=== PATIENT | male | born 1950 | race Caucasian/White ===

== ENCOUNTER 2019-10-15 18:46 | Emergency (ER) | payer MEDICARE, OTHER, SELFPAY ==
[2019-10-15 18:48] VITALS: BP 116/79; PULSE 86; RESP 15; TEMP 36.7; O2SAT 98; BMI 28.6
--- NOTE | 2019-10-15 20:23 | EKG12_ITS ---
Test Reason : UPPER EXTREMITY Blood Pressure : / mmHG Vent. Rate : 091 BPM Atrial Rate : 141 BPM P-R Int : 000 ms QRS Dur : 114 ms QT Int : 368 ms P-R-T Axes : 000 044 034 degrees QTc Int : 452 ms Atrial fibrillation Abnormal ECG Confirmed by THEO STUART, SILVIA ([id number]), news editor SHAHEED VALDES ([id number]) on 10/17/2019 1:23:12 PM Referred By: Confirmed By:SILVIA VENEGAS MD
--- NOTE | 2019-10-15 20:23 | CT_ITS ---
STUDY: CTA CHEST REASON FOR EXAM: Male, 68 years old. PAIN LT SHOULDER BLADE,POST-OP RT ROTATOR CUFF SHOULDER SURGERY -- HX:HLD RADIATION DOSAGE (If Supplied By Facility): CTDIvol = ( 19.59 ) mGy, DLP = ( 588.50 ) mGycm TECHNIQUE: The examination was performed with the intravenous administration of IV 100mL Isovue-370. Post-processing of the angiographic images was performed, with multiplanar reformation and 3D reconstruction. Individualized dose optimization techniques were used for this CT. COMPARISON: None. FINDINGS: There is minimal atelectasis and/or scarring within the lower lobes, more pronounced on the right. Normal enhancement of the main pulmonary artery and right and left pulmonary arteries. There is a filling defect within a subsegmental pulmonary artery within the right lower lobe (image 142 series 2) consistent with an underlying embolus. There is atherosclerotic calcification of the aortic arch. There is no demonstrated aortic dissection. There are calcifications of the coronary arteries. There is an atrial appendage clip in place. Normal mediastinum. Normal hilar regions. Normal visualized trachea and bronchi. Normal chest wall structures. There are degenerative changes of thoracic spine. Limited images of the upper abdomen demonstrate postsurgical changes of the stomach. CT/CTA Chest W/WO Contrast IMPRESSION: Pulmonary embolus within the right lower lobe. Atherosclerosis. Minimal atelectasis and/or scarring within the lower lobes, more pronounced than the right. N.B. : The above information has been verbally conveyed by Marisela French MD to Jenn Shetty MD, on 10/15/2019 22:07:31 (ET). Electronically Signed: Marisela French MD at 22:08 EDT Tel , Service support ,
--- NOTE | 2019-10-15 20:26 | ED.RN ---
NO OLD EKGS IN MUSE
[2019-10-15] MEDS: Morphine 4 MG/ML Syringe IV (20:42)
[2019-10-15] MEDS: Ondansetron 4 MG/2 ML Vial IV (20:43)
[2019-10-15 21:04] LABS: Absolute Lymphocyte Count 2.73 X10^3/uL (0.83-4.51); Absolute Neutrophil Count 4.7 X10^3/uL (2.0-7.7); Basophil# 0.04 X10^3/uL; Basophil% 0.5 % (0-1); Eosinophil# 0.24 X10^3/uL; Eosinophils% 2.9 % (0-5); Hematocrit 38.9 % (40-54); Hemoglobin 11.9 g/dL (13.0-16.5); Lymphocyte # 2.73 X10^3/ul (4.0); Lymphocyte % 33.3 % (19-41); Mean Corp Hgb Conc 30.6 g/dL (32-36); Mean Corpuscular Hgb 28.7 pg (27.0-32.0); Mean Corpuscular Volume 93.7 fL (80-94); Mean Platelet Vol. 10.6 fl (6.2-12.0); Monocyte# 0.42 X10^3/uL; Monocyte% 5.1 % (0-10); NRBC Flagged by Analyzer 0 % (0-5); Neutrophil # 4.74 X10^3/uL (2.7-7.7); Neutrophil % 57.7 % (47-70); Platelet Count 294 K/mm3 (150-450); RBC Distribution Width CV 14.4 % (11.6-14.6); RBC Distribution Width SD 48.9 fl (35.1-43.9); Red Blood Count 4.15 M/mm3 (4.6-6.2); White Blood Count 8.2 K/mm3 (4.4-11.0)
[2019-10-15 21:12] LABS: Anion Gap 4 (5-15); BUN 21 mg/dL (7-18); BUN/Creat Ratio 19.4 RATIO (10-20); Calcium,Total 8.7 mg/dL (8.5-10.1); Chloride 108 mmol/L (98-107); Creatinine, Serum 1.08 mg/dL (0.70-1.30); EST Glomerular Filtration Rate 73 mL/min (>60); Est Glom Filt Rate - Afr Amer 88 mL/min (>60); Estimated Creatinine Clearance 76.04 ml/min; Glucose 100 mg/dL (74-106); Potassium 4.3 mmol/L (3.5-5.1); Sodium Level 142 mmol/L (136-145)
--- NOTE | 2019-10-15 21:30 | ED.DCSUM_ITS ---
- ER Visit Summary Date of Service: 10/15/19 Chief Complaint: Left shoulder pain History of Present Illness: The patient is a 68 M presenting with left shoulder pain. He states this started 2 days ago. Patient had surgery on his right rotator cuff 1 week ago. He stopped taking his pain medication 2 days ago. When he stopped his pain medication he started having pain along his left scapula. He states it is worse with different positions and when he rests against the bed. He denies chest pain or shortness of breath. He is on Eliquis for history of A. fib. Denies fever or cough. Denies recent injury. Denies other complaints. Physical Examination: Vitals are stable. Patient is afebrile. Alert no acute distress. HEENT exam is unremarkable. Neck is supple. Lungs are clear and equal bilaterally. Heart is regular rate and rhythm. Abdomen is soft nontender nondistended. Extremities left parascapular tenderness with active full range of motion. Right shoulder incision clean dry and intact Skin is warm and dry. No focal neurologic deficit. Remainder of exam is unremarkable. Emergency Department Course and Treatment: Patient was given morphine, Zofran IV. EKG is A. fib rate of 91 with no acute ischemic changes. CBC, chemistries unremarkable. Troponin is negative. Left shoulder xray shows degenerative changes of the acromioclavicular joint. Superior migration of the humeral head suggestive of underlying rotator cuff pathology. CTA chest shows pulmonary embolus within the right lower lobe, subsegmental. On reevaluation, patient is resting comfortably. Discussed with hospitalist Dr. Meade. She does not feel patient requires admission at this time. Patient's ambulatory pulse ox is 95% on room air. His Eliquis is increased to 10 mg twice daily x7 days and then he will return to 5 mg twice daily. He will follow-up with his primary care physician and orthopedics. Advised signs and symptoms for which to return to the ED. Disposition: Discharge home Impression: Left shoulder pain, pulmonary embolism This note was generated with [employer] dictation software. It may contain incorrect words, spelling, and punctuation that were not noted in review of the chart prior to signing ED Disposition - Plan for ED Patient: Referrals: MICHELLE DUVALL [Other]
--- NOTE | 2019-10-15 21:30 | RAD_ITS ---
STUDY: X-RAY - LEFT SHOULDER REASON FOR EXAM: Male, 68 years old. PAIN IN LEFT SHOULDER BLADE. RECENT SURGERY ON RIGHT SHOULDER. TECHNIQUE: 4 view(s) of the shoulder. COMPARISON: None. FINDINGS: There is cephalad migration of the humeral head consistent with rotator cuff pathology. There are degenerative changes of the acromioclavicular joint. Normal acromion. There are subchondral lucencies within the humeral head which may reflect underlying subchondral cyst. The soft tissue structures are unremarkable. There appears to be an atrial appendage clip projecting over the cardiac silhouette. RAD/Shoulder min 2 Views IMPRESSION: Degenerative changes of the acromioclavicular joint. Superior migration of the humeral head suggestive of underlying rotator cuff pathology. Electronically Signed: Marisela French MD at 21:49 EDT Tel , Service support ,
[2019-10-15 22:25] VITALS: BP 124/73; PULSE 92; RESP 18; O2SAT 95
[2019-10-15 22:28] VITALS: O2SAT 95
--- NOTE | 2019-10-15 22:55 | ED.DEP ---
ED Disposition - Plan for ED Patient: Instructions: Pulmonary Embolism Prescriptions: Apixaban [Eliquis] 10 mg PO BID #7 days Referrals: MICHELLE DUVALL [Other]
[2019-10-15 23:23] VITALS: BP 136/86; PULSE 96; RESP 18; O2SAT 95
== END 2019-10-15 23:22 | disposition home or self-care (01) ==
PROVIDERS: Emergency Provider Emergency Medicine
DX: M25.512 Pain in left shoulder (principal); I26.99 Other pulmonary embolism without acute cor pulmonale; I48.91 Unspecified atrial fibrillation; Z79.01 Long term (current) use of anticoagulants; Z79.899 Other long term (current) drug therapy
CPT/HCPCS: 71275; 73030; 80048; 84484; 85025; 93005; 96374; 99284; Q9967; A4216; J2405

== ENCOUNTER 2020-07-21 15:05 | Emergency (ER) | payer MEDICARE, OTHER, SELFPAY ==
[2020-07-21 15:06] VITALS: BP 113/67; PULSE 82; RESP 18; TEMP 36.7; O2SAT 100; BMI 31.9
--- NOTE | 2020-07-21 15:15 | EKG12_ITS ---
Test Reason : DIZZINESS Blood Pressure : / mmHG Vent. Rate : 094 BPM Atrial Rate : 110 BPM P-R Int : 000 ms QRS Dur : 104 ms QT Int : 364 ms P-R-T Axes : 000 028 003 degrees QTc Int : 455 ms Atrial fibrillation with premature ventricular or aberrantly conducted complexes Abnormal ECG Confirmed by CELESTINA STUART, JERALD ([id number]), sound editor KHADAR HALL ([id number]) on 07/23/2020 11:19:02 AM Referred By: DONATO Confirmed By:JERALD OSCAR MD
[2020-07-21 15:32] LABS: Hematocrit 44.3 % (40-54); Hemoglobin 14.2 g/dL (13.0-16.5); Mean Corp Hgb Conc 32.1 g/dL (32-36); Mean Corpuscular Hgb 29.6 pg (27.0-32.0); Mean Corpuscular Volume 92.5 fL (80-94); Mean Platelet Vol. 10.6 fl (6.2-12.0); Platelet Count 267 K/mm3 (150-450); RBC Distribution Width CV 14.7 % (11.6-14.6); RBC Distribution Width SD 50.1 fl (35.1-43.9); Red Blood Count 4.79 M/mm3 (4.6-6.2); White Blood Count 7.4 K/mm3 (4.4-11.0)
[2020-07-21 15:38] VITALS: BP 84/50; BP 96/56; BP 97/76; PULSE 102; PULSE 89; PULSE 95
[2020-07-21 15:54] LABS: Anion Gap 4 (5-15); BUN 24 mg/dL (7-18); BUN/Creat Ratio 22.9 RATIO (10-20); Calcium,Total 9.7 mg/dL (8.5-10.1); Chloride 109 mmol/L (98-107); Creatinine, Serum 1.05 mg/dL (0.70-1.30); EST Glomerular Filtration Rate 75 mL/min (>60); Est Glom Filt Rate - Afr Amer 90 mL/min (>60); Estimated Creatinine Clearance 77.15 ml/min; Glucose 49 mg/dL (74-106); Sodium Level 140 mmol/L (136-145)
--- NOTE | 2020-07-21 15:59 | ED.VIS.GEN ---
History of Present Illness Chief Complaint: Dizziness Informant: Patient Onset: Today, Hours Context: Sudden Onset Timing: Intermittent Quality: Dizziness and lightheadedness Location: Physical therapy Current Severity: No lightheadedness or dizziness Maximum Severity: Moderate Worsened by: During physical therapy Relieved by: Sitting down Associated Symptoms: No other symptoms Narrative: Is a 69-year-old male with multiple medical problems on anticoagulant who presents because of dizziness which he defines as being lightheaded. He felt as if he was going to fall. He did not eat as much as normal prior to physical therapy. During physical therapy he became lightheaded. There was no spinning. Did not feel his balance was off. He did not feel he was tilted. He denied problem with coordination. He is undergoing physical therapy for hip surgery middle april and rotator cuff injury. Patient denies headache. Denies double vision, blurred vision loss of vision. Nuys decreased hearing in his ears. Denies trouble with speech or swallowing. He denies rhinorrhea, congestion or postnasal drainage. He denies chest pain of any type. He denies dyspnea or dyspnea on exertion. He does have history of dyspnea is had a significant work-up and even seen dyspnea's specialist at [facility] and told there is nothing abnormality to explain his shortness of breath. Patient states he did feel short of breath when he felt lightheaded. Again he was asked if he had chest pain, which he denied. He denies nausea, vomiting diarrhea. Nuys black or maroon-colored stool. He denies dysuria, frequency, urgency or hematuria. He denies symptoms of claudication. Prior similar symptoms: Yes - Dyspnea Recent Illness/Hospitalization: Yes - Hip surgery - Past Medical History (1) History of atrial fibrillation Status: Acute (2) [facility] current use of anticoagulant Status: Acute (3) History of hypertension Status: Acute (4) History of hypercholesterolemia Status: Acute Past Medical History - Allergies and Home Meds Allergies/Adverse Reactions: Allergies rivaroxaban [From Xarelto] Allergy (Verified 07/21/20 15:10) Rash Sulfa (Sulfonamide Antibiotics) Allergy (Verified 07/21/20 15:10) Rash Primary Care Physician: MICHELLE PORTILLO [Other] Prior records reviewed: Yes Surgical History: total hip arthroplasty Lives: Alone Smoking Status: Unknown if ever smoked Alcohol: None Drugs: None Review of Systems General: Denies: Chills, Fever, Malaise, Sweats Eyes: Denies: Visual changes - bilaterally, Blurred Vision - bilaterally, Diplopia ENT: Denies: Bilateral ear pain, Rhinorrhea, Sore throat Cardiovascular: Denies: Chest pain, Palpitations, Heart racing Respiratory: Reports: Dyspnea. Denies: Cough, Sputum, Dyspnea on exertion, Orthopnea, Paroxysmal nocturnal dyspnea Gastrointestinal: Denies: Abdominal pain, Nausea, Vomiting, Diarrhea, Melena, Hematochezia Genitourinary: Denies: Dysuria, Hematuria, Frequency Musculoskeletal: Denies: Myalgias, Arthralgias, Neck pain, Back pain, Swelling, Extremity Pain, -, - Skin: Denies: Rash, Wounds Neurological: Denies: Headache, Weakness, Parasthesia Endocrine: Denies: Polyuria, Polydipsia Hematologic: Reports: Easy bruising. Denies: Easy bleeding Allergy: Denies: Uticaria Physical Exam Vital Signs/Narrative: Vital Signs Temp Pulse Pulse Pulse Pulse Resp BP 07/21/20 15:38 89 95 102 H 07/21/20 15:06 98.0 F 82 18 113/67 BP BP BP Pulse Ox 07/21/20 15:38 97/76 96/56 L 84/50 L 07/21/20 15:06 100 Inital Vital Signs reviewed: Yes General: Well nourished, Well developed, Obese, No Acute Distress Head: Normocephalic, Atraumatic Eyes: Perrl, EOMI. Negative for: Pale conjunctiva, Scleral icterus ENT: Moist mucous membranes, No rhinorrhea Neck: Supple, Nontender, No lymphadenopathy, No JVD Cardiovascular: Regular rate, No murmurs, Irregular Respiratory: No distress, CTA bilaterally, Chest nontender Abdomen: Soft, Nontender, Nondistended, Normal bowel sounds Rectal: Deferred Back: Nontender, Normal Inspection Extremities: Nontender, No edema. Negative for: Calf Tenderness Skin: Normal color, No rash. Negative for: Cyanosis, Diaphoresis, Jaundice Neurological: Alert, Oriented x3, Cranial nerves II-XII grossly intact, Normal Strength, Normal Sensation, Normal DTR Psychological: Depressed Diagnostic/Tx/Re-eval Laboratory Results 07/21/20 07/21/20 15:20 15:20 WBC 7.4 RBC 4.79 Hgb 14.2 Hct 44.3 MCV 92.5 MCH 29.6 MCHC 32.1 RDW Std Deviation 50.1 H RDW Coeff of Anmol 14.7 H Plt Count 267 MPV 10.6 Sodium 140 Potassium 4.0 Chloride 109 H Carbon Dioxide 27.0 Anion Gap 4 L BUN 24 H Creatinine 1.05 Estim Creat Clear Calc 77.15 Est GFR (MDRD) Af Amer 90 Est GFR (MDRD) Non-Af 75 BUN/Creatinine Ratio 22.9 H Glucose 49 L Calcium 9.7 CBC is unremarkable. Basic metabolic panel is unremarkable. Static vital signs are unremarkable. Patient states his normal systolic blood pressure ranges between 90 and 100. - Medical Decision Making KG was obtained to evaluate for dysrhythmia and specifically A. fib with RVR. CBC to assess H&H. Basic metabolic panel to assess renal function. Suspect patient had orthostatic symptoms. Orthostatic vital signs were ordered. ED Disposition - Plan for ED Patient: Disposition: Home or Assisted Living Diagnosis: Orthostatic lightheadedness, Dyspnea Instructions: ED Dizziness, Uncertain Cause Referrals: MICHELLE PORTILLO [Other] - As Needed
[2020-07-21 16:30] VITALS: BP 113/85; PULSE 86; RESP 15; O2SAT 94
== END 2020-07-21 16:42 | disposition home or self-care (01) ==
PROVIDERS: Emergency Provider Emergency Medicine
DX: R42 Dizziness and giddiness (principal); R06.00 Dyspnea, unspecified; I48.91 Unspecified atrial fibrillation; I10 Essential (primary) hypertension; E78.00 Pure hypercholesterolemia, unspecified; Z79.01 Long term (current) use of anticoagulants; Z79.899 Other long term (current) drug therapy; Z96.649 Presence of unspecified artificial hip joint
CPT/HCPCS: 80048; 85027; 93005; 99285

== ENCOUNTER → 2020-08-26 11:23 | Outpatient (CLI) | payer MEDICARE, OTHER, SELFPAY ==
--- NOTE | 2020-08-26 12:35 | NEURO ---
NCS and/or EMG Patient Report Ordering Doctor: Morgan Zimmerman DATE OF SERVICE: 08/26/20 Logan Dumont presents for electrodiagnostic testing of the left upper limb. He reports numbness, tingling and weakness in the left hand. Electrodiagnostic findings: Left median motor nerve demonstrates prolonged distal latency with normal amplitude and reduced conduction velocity. Left ulnar motor response is within normal limits. Prolonged median and ulnar F waves are noted. Prolonged left median sensory latency at the wrist. Prolonged left median palmar latency. On needle EMG, all muscles tested in the left upper limb showed no evidence of denervation with normal motor unit action potentials. Electrodiagnostic impression: This is an abnormal study. 1. Electrodiagnostic findings demonstrate left-sided median mononeuropathy. This is consistent with a moderate left carpal tunnel syndrome.
== END ==
PROVIDERS: Referring Provider Orthopaedic Surgery; Visit Provider Orthopaedic Surgery
DX: R53.1 Weakness (principal); M79.642 Pain in left hand; R20.0 Anesthesia of skin
CPT/HCPCS: 95886; 95910

== ENCOUNTER → 2020-11-25 08:05 | Outpatient (CLI) | payer MEDICARE, OTHER, SELFPAY ==
--- NOTE | 2020-11-25 08:08 | CDU_ITS ---
Reason For Study: Transient visual loss Rt. Velocities/BP Lt. Velocities/BP Prox CCA 78.6/25.2 cm/sec. Prox CCA 124.7/38.9 cm/sec. Mid CCA 86.5/27.8 cm/sec. Mid CCA 84.6/27.9 cm/sec. Dist CCA 82.6/22.6 cm/sec. Dist CCA 79.1/22.5 cm/sec. Prox ICA 81.2/22.6 cm/sec. Prox ICA 62.6/15.6 cm/sec. Mid ICA 66.9/31.7 cm/sec. Mid ICA 49.4/22 cm/sec. Dist ICA 96.9/46 cm/sec. Dist ICA 90/44.7 cm/sec. Rt. ICA/CCA = 1.17. Lt. ICA/CCA = 1.06. Prox ECA 60.4/9.5 cm/sec. Prox ECA 86.3/20 cm/sec. Rt. Vert. 50.9/21.2 cm/sec. Lt. Vert. 39.5/16.8 cm/sec. Right Extracranial There is intimal thickening but no significant atherosclerotic plaque noted in the right common carotid artery. There is heterogeneous, irregular atherosclerotic plaque noted in the right internal carotid artery. There is intimal thickening but no significant atherosclerotic plaque noted in the right external carotid artery. Antegrade flow is noted in the right vertebral artery. Left Extracranial There is homogeneous, smooth atherosclerotic plaque noted in the left common carotid artery. There is homogeneous, smooth atherosclerotic plaque noted in the left internal carotid artery. There is intimal thickening but no significant atherosclerotic plaque noted in the left external carotid artery. Antegrade flow is noted in the left vertebral artery. Procedure Carotid Duplex [id number]. This is a Carotid Duplex examination using B-mode, color flow and specral Doppler. Exam performed in department. VL/Carotid Duplex Ultrasound Interpretation Summary Mild (<50%) stenosis right extracranial internal carotid. Mild (<50%) stenosis left extracranial internal carotid. Flow within the vertebral arteries is antegrade bilaterally. Ordering Physician: Pelon Nascimento Performed By: Oneyda Anders RVT
== END ==
PROVIDERS: Referring Provider Ophthalmology; Visit Provider Ophthalmology
DX: H53.123 Transient visual loss, bilateral (principal)
CPT/HCPCS: 93880

== ENCOUNTER → 2021-03-12 11:08 | Outpatient (CLI) | payer MEDICARE, OTHER, SELFPAY ==
--- NOTE | 2021-03-12 11:30 | MRI_ITS ---
EXAM: MR Head Without and With Intravenous Contrast CLINICAL INDICATION: 70 years old, Male; DIPLOPIA R EYE X 3 MONTHS TECHNIQUE: Multiplanar and multisequence MR images of the brain were obtained without and with intravenous contrast. This report was created using [employer] report generation technology. CONTRAST: 20CC IV DOTAREM COMPARISON: None. FINDINGS: Brain and extra-axial spaces: Punctate T2 signal abnormalities in the deep cerebral white matter most likely due to small vessel ischemic/degenerative changes. Mild cerebral and cerebellar atrophy. No intra- or extra-axial hemorrhage. No intracranial mass or mass effect. No hydrocephalus. Basal cisterns are patent. Diffusion-weighted imaging is negative for acute or subacute infarct. Sella: Unremarkable. Normal sella turcica, pituitary gland, infundibular stalk, optic chiasm and hypothalamus. Auditory system: Unremarkable. The internal auditory canals are patent. Bones/joints: Unremarkable. No discrete lytic or blastic abnormalities. Sinuses: Unremarkable as visualized. Clear. Mastoid air cells: Unremarkable as visualized. Clear. Orbits: Unremarkable as visualized. Both globes, extraocular muscles, optic nerves and retrobulbar fat appear unremarkable. Vasculature: Unremarkable as visualized. Normal flow voids in the major intracranial circulation. MRI/Brain W/WO Contrast IMPRESSION: 1. No evidence of acute or subacute infarct. 2. Mild small vessel ischemic/degenerative changes. Electronically Signed: Levi Baez MD at 23:59 EST Tel , Service support ,
[2021-03-12 11:31] LABS: CREATININE FINGERSTICK 0.8 mg/dL (0.70-1.30); EGFR FINGERSTICK > 60.0000 mL/min (>60)
== END ==
PROVIDERS: Visit Provider Ophthalmology
DX: H53.2 Diplopia (principal)
CPT/HCPCS: 70553; A9575

== ENCOUNTER 2021-06-30 16:12 | Emergency (ER) | payer MEDICARE, OTHER, SELFPAY ==
[2021-06-30 16:13] VITALS: BP 107/68; BP 110/76; PULSE 61; PULSE 63; RESP 10; RESP 15; TEMP 36.6; O2SAT 95; O2SAT 96; BMI 32.3
--- NOTE | 2021-06-30 16:38 | EX.ED.DYSGE1 ---
HPI History of Present Illness Chief Complaint: Dizziness Informant: patient Onset/Context/Timing Onset: Today Context: Sudden Onset Timing: Intermittent Quality: Lightheaded Location: Generalized Worsened by: Standing Relieved by: Sitting Narrative Narrative: That he feltPatient presents with lightheadedness that began today while he was at his orthopedic appointment. Patient states he stood up quickly and felt lightheaded. Patient states he was going to pass out. Patient did not lose any consciousness. Patient states he was able to sit down for several minutes and felt better. Patient denies any chest pain or shortness of breath. Patient denies any nausea or vomiting. Patient denies any spinning sensation. Patient denies any headache. Patient states he has had similar episodes over the past couple months. Patient states some of them last longer than others. Patient states that usually resolve whenever he sits down and rests. [facility] Medical History Afib Home Medications albuterol sulfate 90 mcg IH PRN PRN 10/15/19 [History Last Taken Unknown] alfuzosin 10 mg PO DAILY 10/15/19 [History Last Taken Unknown] apixaban 5 mg PO BID 10/15/19 [History Last Taken Unknown] atorvastatin 20 mg PO DAILY 10/15/19 [History Last Taken Unknown] bupropion HCl 100 mg PO DAILY 10/15/19 [History Last Taken Unknown] buspirone 15 mg PO BID 10/15/19 [History Last Taken Unknown] calcium citrate-vitamin D3 1 ea PO DAILY 10/15/19 [History Last Taken Unknown] cholecalciferol (vitamin D3) 1,000 unit PO DAILY 10/15/19 [History Last Taken Unknown] metoprolol succinate 25 mg PO DAILY 10/15/19 [History Last Taken Unknown] midodrine 10 mg PO BID 10/15/19 [History Last Taken Unknown] multivitamin 1 ea PO DAILY 10/15/19 [History Last Taken Unknown] pyridoxine (vitamin B6) 100 mg PO DAILY 10/15/19 [History Last Taken Unknown] sertraline 100 mg PO DAILY 10/15/19 [History Last Taken Unknown] pantoprazole 40 mg PO DAILY 07/21/20 [History Last Taken Unknown] Allergy/AdvReac Type Severity Reaction Status Date / Time rivaroxaban [From Xarelto] Allergy Rash Verified 07/21/20 15:10 Sulfa (Sulfonamide Allergy Rash Verified 07/21/20 15:10 Antibiotics) Surgical History Gastric bypass status for obesity H/O total hip arthroplasty Social History Smoking Status: Never smoker ROS ROS ED Constitutional Constitutional ED: Denies chills or fever(s) Eyes Eyes: Denies blurry vision or change in vision ENT ENT ED: Denies rhinorrhea or sore throat Cardiovascular Cardiovascular: Denies chest pain or palpitations Respiratory/Chest Respiratory/Chest: Denies cough or dyspnea Gastrointestinal Gastrointestinal: Denies nausea or vomiting Genitourinary Genitourinary ED: Denies dysuria or hematuria Musculoskeletal Musculoskeletal: Reports neck pain; Denies back pain Integumentary Denies abscess or rash Neurologic Neurologic: Reports weakness; Denies headache(s) Allergic/Immunologic Allergic/Immunologic ED: Denies mouth swelling or urticaria EXAM Physical Exam Const Vital Signs: 06/30/21 16:13 06/30/21 16:19 06/30/21 17:08 Temperature 97.9 F Temperature Source Oral Pulse Rate 61 Pulse Rate [Lying] 67 Pulse Rate [Sitting (for 1 minute prior to obtaining)] 57 L Pulse Rate [Standing (for 1 minute prior to obtaining)] 66 Respiratory Rate 10 L Respiratory Effort Normal Respiratory Pattern Normal Blood Pressure 110/76 Blood Pressure [Lying] 98/60 Blood Pressure [Sitting (for 1 minute prior to obtaining)] 89/59 L Blood Pressure [Standing (for 1 minute prior to obtaining)] 73/54 L Blood Pressure Mean 87 Blood Pressure Mean [Lying] 72 Blood Pressure Mean [Sitting (for 1 minute prior to obtaining)] 69 Blood Pressure Mean [Standing (for 1 minute prior to obtaining)] 60 Pulse Ox 96 Oxygen Delivery Method Room Air 06/30/21 18:13 Temperature Temperature Source Pulse Rate 65 Pulse Rate [Lying] Pulse Rate [Sitting (for 1 minute prior to obtaining)] Pulse Rate [Standing (for 1 minute prior to obtaining)] Respiratory Rate 17 Respiratory Effort Respiratory Pattern Blood Pressure 117/70 Blood Pressure [Lying] Blood Pressure [Sitting (for 1 minute prior to obtaining)] Blood Pressure [Standing (for 1 minute prior to obtaining)] Blood Pressure Mean 85 Blood Pressure Mean [Lying] Blood Pressure Mean [Sitting (for 1 minute prior to obtaining)] Blood Pressure Mean [Standing (for 1 minute prior to obtaining)] Pulse Ox 98 Oxygen Delivery Method Room Air Positive well nourished and well developed General Appearance ED: well developed HEENT Reports moist mucous membranes Neck supple and no JVD Resp normal respiratory effort and clear to auscultation bilaterally Cardio regular rate and no murmurs Rhythm: abnormal rhythm irregularly irregular GI normal to inspection, nondistended, normoactive bowel sounds and non-tender Palpation: soft Extremity normal to inspection General Extremety ED: Negative for edema or tenderness General Extremity: Negative for edema Neuro oriented x3, CN's II-XII intact bilaterally and no sensory deficits noted Sensorium / Orientation: alert Motor Exam: strength 5/5 throughout Psych mental status grossly normal Skin no rashes or lesions noted MDM MDM MDM Narrative Medical decision making narrative: EKG was obtained. On my interpretation, shows atrial fibrillation with a rate of 59. There are no acute ST or T wave changes. There is no QRS interval, QTc interval, and axis were all normal. CBC was within normal limits. Comprehensive metabolic profile was within normal limits. High-sensitivity troponin was normal. Urinalysis does not show any evidence of urinary tract infection. Orthostatic vital signs were obtained and were negative. CT scan of the brain was obtained. There is no acute intracranial abnormality. There are minimal chronic involutional changes noted. This was interpreted by the radiologist and reviewed by myself. Patient is feeling better on reevaluation. Patient was instructed to get plenty of rest. Patient was instructed to follow-up with his primary care physician in 3 to 5 days. Patient was instructed to always stand up slowly and pause before attempting to move. Patient understood and was agreeable with the plan. All questions were answered. Lab Data Attestation: I reviewed the patient's lab results. Labs: Laboratory Results - last 24 hr 06/30/21 06/30/21 06/30/21 16:49 16:49 17:20 WBC 5.4 RBC 4.14 L Hgb 13.0 Hct 37.7 L MCV 91.1 MCH 31.4 MCHC 34.5 RDW Std Deviation 45.4 H RDW Coeff of Anmol 13.5 Plt Count 202 MPV 10.9 Immature Gran % (Auto) 0.400 Neut % (Auto) 62.6 Lymph % (Auto) 28.3 Kleberg % (Auto) 5.9 Eos % (Auto) 2.4 Baso % (Auto) 0.4 Absolute Neuts (auto) 3.4 Absolute Lymphs (auto) 1.53 Nucleated RBC % 0 Sodium 142 Potassium 4.3 Chloride 111 H Carbon Dioxide 27.0 Anion Gap 4 L BUN 21 H Creatinine 1.01 Estim Creat Clear Calc 79.11 Est GFR (MDRD) Af Amer 94 Est GFR (MDRD) Non-Af 78 BUN/Creatinine Ratio 20.8 H Glucose 99 Calcium 8.7 Total Bilirubin 0.60 AST 27 ALT 47 Alkaline Phosphatase 48 Troponin I High Sens 8 Total Protein 5.5 L Albumin 3.1 L Globulin 2.4 Albumin/Globulin Ratio 1.3 Urine Color Yellow Urine Clarity Clear Urine pH 6.0 Ur Specific [place] 1.020 Urine Protein Negative Urine Glucose (UA) Normal Urine Ketones Negative Urine Occult Blood Negative Urine Nitrite Negative Urine Bilirubin Negative Urine Urobilinogen Normal Ur Leukocyte Esterase Negative Urine RBC 0 SEEN Urine WBC 0 SEEN Ur Squamous Epith Cells 0 SEEN Amorphous Sediment 1+ Urine Bacteria RARE Hyaline Casts 10-25 SEEN Urine Mucus 0 SEEN Radiography Diagnostic Testing: Clinical Impression(s) from Imaging Studies Brain CT 06/30/21 17:45 IMPRESSION: No acute intracranial abnormality. Minimal chronic involutional and ischemic changes of the brain. Electronically Signed: Fletcher Martinez MD at 18:16 EDT , Discharge Plan Triage Chief Complaint: Dizziness ED Provider: Paulino Bautista Dx/Rx/DC Orders Clinical Impression: Postural dizziness with near syncope Instructions: ED Dizziness, Uncertain Cause Prescriptions: No Action multivitamin 1 EACH tablet 1 ea PO DAILY RF: 0 atorvastatin 20 MG tablet 20 mg PO DAILY RF: 0 sertraline 100 MG tablet 100 mg PO DAILY RF: 0 pyridoxine (vitamin B6) 100 MG tablet 100 mg PO DAILY RF: 0 metoprolol succinate 25 MG tablet extended release 24 hr 25 mg PO DAILY RF: 0 buspirone 15 MG tablet 15 mg PO BID RF: 0 midodrine 10 MG tablet 10 mg PO BID RF: 0 bupropion HCl 200 MG tablet sustained-release 12 hr 100 mg PO DAILY RF: 0 alfuzosin 10 MG tablet extended release 24 hr 10 mg PO DAILY RF: 0 cholecalciferol (vitamin D3) 1,000 UNIT tablet 1,000 unit PO DAILY RF: 0 calcium citrate-vitamin D3 1 EACH tablet 1 ea PO DAILY RF: 0 apixaban 5 MG tablet 5 mg PO BID RF: 0 albuterol sulfate 90 MCG aero powdr breath act w/sensor 90 mcg IH PRN PRN (Reason: Wheezing) RF: 0 pantoprazole 40 MG tablet 40 mg PO DAILY RF: 0 Primary Care Provider: Florian Gonzalez Referrals: Florian Gonzalez MD [Primary Care Provider] - 3-5 Days Disposition Disposition: Home, Self Care
--- NOTE | 2021-06-30 16:44 | EKG12_ITS ---
Test Reason : DIZZINESS Blood Pressure : / mmHG Vent. Rate : 059 BPM Atrial Rate : 065 BPM P-R Int : 000 ms QRS Dur : 112 ms QT Int : 422 ms P-R-T Axes : 000 044 029 degrees QTc Int : 417 ms Atrial fibrillation Abnormal ECG Confirmed by CELESTINA STUART, JERALD ([id number]), design editor KHADAR HALL ([id number]) on 07/02/2021 8:50:15 AM Referred By: DEANDRA Confirmed By:JERALD OSCAR MD
[2021-06-30 17:00] LABS: Absolute Lymphocyte Count 1.53 X10^3/uL (0.83-4.51); Absolute Neutrophil Count 3.4 X10^3/uL (2.0-7.7); Basophil# 0.02 X10^3/uL; Basophil% 0.4 % (0-1); Eosinophil# 0.13 X10^3/uL; Eosinophils% 2.4 % (0-5); Hematocrit 37.7 % (40-54); Lymphocyte # 1.53 X10^3/ul (0.83-4.51); Lymphocyte % 28.3 % (19-41); Mean Corp Hgb Conc 34.5 g/dL (32-36); Mean Corpuscular Hgb 31.4 pg (27.0-32.0); Mean Corpuscular Volume 91.1 fL (80-94); Mean Platelet Vol. 10.9 fl (6.2-12.0); Monocyte# 0.32 X10^3/uL; Monocyte% 5.9 % (0-10); NRBC Flagged by Analyzer 0 % (0-5); Neutrophil # 3.38 X10^3/uL (2.7-7.7); Neutrophil % 62.6 % (47-70); Platelet Count 202 K/mm3 (150-450); RBC Distribution Width CV 13.5 % (11.6-14.6); RBC Distribution Width SD 45.4 fl (35.1-43.9); Red Blood Count 4.14 M/mm3 (4.6-6.2); White Blood Count 5.4 K/mm3 (4.4-11.0)
[2021-06-30 17:08] VITALS: BP 73/54; BP 89/59; BP 98/60; PULSE 57; PULSE 66; PULSE 67
[2021-06-30 17:20] LABS: ALB/GLOB Ratio 1.3 RATIO (0.9-2.4); AST(SGOT) 27 U/L (15-37); Alanine Aminotransfer ALT/SGPT 47 U/L (16-61); Albumin, Serum 3.1 g/dL (3.2-5.0); Alkaline Phosphatase 48 U/L (45-117); Anion Gap 4 (5-15); BUN 21 mg/dL (7-18); BUN/Creat Ratio 20.8 RATIO (10-20); Calcium,Total 8.7 mg/dL (8.5-10.1); Chloride 111 mmol/L (98-107); Creatinine, Serum 1.01 mg/dL (0.70-1.30); EST Glomerular Filtration Rate 78 mL/min (>60); Est Glom Filt Rate - Afr Amer 94 mL/min (>60); Estimated Creatinine Clearance 79.11 ml/min; Globulin 2.4 g/dL (2.2-4.2); Glucose 99 mg/dL (74-106); Potassium 4.3 mmol/L (3.5-5.1); Protein, Total 5.5 g/dL (6.4-8.2); Sodium Level 142 mmol/L (136-145); Troponin-I HS 8 pg/mL (3.0-78.0)
[2021-06-30 17:27] LABS: Mucous, Urine 0 SEEN /hpf (<or=2+); Red Blood Cells-Urine 0 SEEN /hpf (0-5); Squamous Epithelial Cells - UA 0 SEEN /hpf (0-5); White Blood Cells 0 SEEN /hpf (0-5)
[2021-06-30 17:40] LABS: Color, Urine Yellow (Yellow); Glucose, Dipstick Normal (Normal); Ketone-Dipstick Negative (Negative); Leukocyte Esterase-Dipstick Negative /ul (Negative); Nitrite-Dipstick Negative (Negative); Occult Blood-Urine Negative /ul (Negative); Protein-Dipstick Negative (Negative); Urine Bilirubin Dipstick Negative (Negative); Urine Clarity Clear (Clear); Urine Urobilinogen Normal (Normal)
--- NOTE | 2021-06-30 17:45 | CT_ITS ---
EXAMINATION : Head CT w/out contrast HISTORY : Weakness COMPARISON : None. TECHNIQUE : Multiple contiguous axial images were obtained from the skull base to the vertex without intravenous contrast. A radiation dose optimization technique was used for this scan. FINDINGS : There is no evidence for acute intracranial hemorrhage, mass effect, or midline shift. There is no extra-axial fluid collection. There are periventricular white matter changes consistent with chronic microvascular ischemic disease. There is sulcal widening and ventricular enlargement consistent with cerebral atrophy. There is normal benedict-white differentiation, without CT evidence of acute ischemia or infarct. The skull base and calvarium are unremarkable. Bilateral scleral yaniv. The paranasal sinuses are clear. The mastoid air cells are well-aerated. The soft tissues are unremarkable. CT/Brain/Head without Contrast IMPRESSION: No acute intracranial abnormality. Minimal chronic involutional and ischemic changes of the brain. Electronically Signed: Fletcher Martinez MD at 18:16 EDT ,
[2021-06-30 17:47] LABS: Amorphous Sediment 1+; Bacteria RARE /hpf (None Seen); Hyaline Cast 10-25 SEEN /lpf (0-5)
[2021-06-30 18:13] VITALS: BP 117/70; PULSE 65; RESP 17; O2SAT 98
[2021-06-30 19:49] VITALS: BP 128/92; PULSE 73; RESP 15; O2SAT 98
== END 2021-06-30 19:55 | disposition home or self-care (01) ==
PROVIDERS: Emergency Provider Emergency Medicine; PCP Internal Medicine; Visit Provider Emergency Medicine
DX: R55 Syncope and collapse (principal); I48.91 Unspecified atrial fibrillation; Z79.01 Long term (current) use of anticoagulants; Z79.899 Other long term (current) drug therapy; Z98.84 Bariatric surgery status
CPT/HCPCS: 70450; 80053; 81001; 84484; 85025; 93005; 99285; J7030

== ENCOUNTER 2022-01-29 05:25 | Emergency (ER) | payer MEDICARE, SELFPAY ==
[2022-01-29 05:26] VITALS: BP 153/86; PULSE 76; RESP 15; TEMP 35.7; O2SAT 97; BMI 32.2
--- NOTE | 2022-01-29 05:47 | EX.ED.DYSGE1 ---
HPI History of Present Illness Chief Complaint: Other, Pain/Inj Informant: patient Onset/Context/Timing Onset: Yesterday Context: Gradual Onset Timing: Continuous Quality: Sharp Location: Right side of the neck Worsened by: Movement Relieved by: Nothing Narrative Narrative: Patient presents with right-sided neck pain that began yesterday afternoon. Patient states it is gradually getting worse. Patient states she was unable to sleep tonight because of the neck pain. Patient describes the pain as sharp. Patient states it is over the entire right side of his neck. Patient states it is worse with any movement. Patient states nothing helps. Patient denies any trauma or injury. Patient denies any fevers or chills. [facility] Medical History Afib Home Medications albuterol sulfate 90 mcg/actuation breath activated powder inhaler,sensor 90 mcg IH PRN PRN Wheezing 10/15/19 [History Last Taken Unknown] alfuzosin 10 mg tablet,extended release 24 hr 10 mg PO DAILY 10/15/19 [History Last Taken Unknown] apixaban 5 mg tablet 5 mg PO BID 10/15/19 [History Last Taken Unknown] atorvastatin 20 mg tablet 20 mg PO DAILY 10/15/19 [History Last Taken Unknown] bupropion HCl 200 mg tablet,12 hr sustained-release 100 mg PO DAILY 10/15/19 [History Last Taken Unknown] buspirone 15 mg tablet 15 mg PO BID 10/15/19 [History Last Taken Unknown] calcium citrate 315 mg calcium-vitamin D3 6.25 mcg (250 unit) tablet 1 ea PO DAILY 10/15/19 [History Last Taken Unknown] cholecalciferol (vitamin D3) 25 mcg (1,000 unit) tablet 1,000 unit PO DAILY 10/15/19 [History Last Taken Unknown] metoprolol succinate 25 mg tablet,extended release 24 hr 25 mg PO DAILY 10/15/19 [History Last Taken Unknown] midodrine 10 mg tablet 10 mg PO BID 10/15/19 [History Last Taken Unknown] multivitamin 1 ea PO DAILY 10/15/19 [History Last Taken Unknown] pyridoxine (vitamin B6) 100 mg tablet 100 mg PO DAILY 10/15/19 [History Last Taken Unknown] sertraline 100 mg tablet 100 mg PO DAILY 10/15/19 [History Last Taken Unknown] pantoprazole 40 mg tablet,delayed release 40 mg PO DAILY 07/21/20 [History Last Taken Unknown] hydrocodone-acetaminophen 5-325mg 5mg-325mg 1 tab PO Q6H PRN PRN Pain 3 days #10 TABLETS 01/29/22 [Rx Last Taken Unknown] orphenadrine citrate 100 mg tablet,extended release 100 mg PO QHS PRN PRN muscle spasm #10 tabs 01/29/22 [Rx Last Taken Unknown] Allergy/AdvReac Type Severity Reaction Status Date / Time rivaroxaban [From Xarelto] Allergy Rash Verified 01/29/22 05:32 Sulfa (Sulfonamide Allergy Rash Verified 01/29/22 05:32 Antibiotics) Surgical History Gastric bypass status for obesity H/O total hip arthroplasty Social History Smoking Status: Never smoker ROS ROS ED Constitutional Constitutional ED: Denies chills or fever(s) Eyes Eyes: Denies blurry vision or change in vision ENT ENT ED: Denies rhinorrhea or sore throat Cardiovascular Cardiovascular: Denies chest pain or palpitations Respiratory/Chest Respiratory/Chest: Denies cough or dyspnea Gastrointestinal Gastrointestinal: Denies nausea or vomiting Genitourinary Genitourinary ED: Denies dysuria or hematuria Musculoskeletal Musculoskeletal: Reports back pain and neck pain Integumentary Denies abscess or rash Neurologic Neurologic: Reports headache(s); Denies weakness Allergic/Immunologic Allergic/Immunologic ED: Denies mouth swelling or urticaria EXAM Physical Exam Const Vital Signs: 01/29/22 05:26 01/29/22 05:32 Temperature 96.3 F L Temperature Source Temporal Pulse Rate 76 Respiratory Rate 15 Respiratory Pattern Normal Blood Pressure 153/86 H Blood Pressure Mean 108 Pulse Ox 97 Oxygen Delivery Method Room Air Positive well nourished and well developed General Appearance ED: well developed and NAD HEENT Reports moist mucous membranes Resp normal respiratory effort and clear to auscultation bilaterally Cardio regular rate and regular rhythm GI normal to inspection, nondistended, normoactive bowel sounds and non-tender Palpation: soft Back/Spine Back/Spine Narrative: There is tenderness and spasm of the right cervical paraspinal muscles. There is no bony crepitance or step-off. Range of motion was limited in all motions of the cervical spine secondary to pain. Strength is 5/5 bilaterally in the upper and lower extremities. There are no sensory deficits. Extremity normal to inspection Neuro oriented x3, CN's II-XII intact bilaterally and no sensory deficits noted Sensorium / Orientation: alert Motor Exam: strength 5/5 throughout Psych mental status grossly normal MDM MDM MDM Narrative Medical decision making narrative: Morphine and Norflex here. CT scan of the cervical spine was obtained. There is no acute fracture or spondylolisthesis. There are multilevel degenerative changes with foraminal stenosis. This was interpreted by the radiologist and reviewed by myself. Patient is feeling better on reevaluation. Patient was advised of his findings. Patient was given prescriptions for [place] and Flexeril. Patient was instructed to use ice to the area. Patient was instructed to follow-up with his primary care physician in 5 to 7 days. Patient understood and was agreeable with the plan. All questions were answered. Radiography Diagnostic Testing: Clinical Impression(s) from Imaging Studies Cervical Spine CT 01/29/22 05:52 IMPRESSION: 1. No CT evidence of acute compression or displaced fracture. 2. Multilevel degenerative changes of cervical spine with neural foraminal narrowing, as described. Electronically Signed: Renita Jameson MD at 7:05 EDT Reading Location ID and State: [facility] / [place] , Service support , Discharge Plan Triage Chief Complaint: Other, Pain/Inj ED Provider: Paulino Bautista Dx/Rx/DC Orders Clinical Impression: Acute neck pain Instructions: ED Neck Pain Prescriptions: New hydrocodone-acetaminophen [hydrocodone-acetaminophen] 5-325 mg tablet 1 tab PO Q6H PRN PRN (Reason: Pain) 3 Days Qty: 10 0RF orphenadrine citrate 100 mg tablet extended release 100 mg PO QHS PRN PRN (Reason: muscle spasm) Qty: 10 0RF No Action multivitamin 1 EACH tablet 1 ea PO DAILY atorvastatin 20 MG tablet 20 mg PO DAILY sertraline 100 MG tablet 100 mg PO DAILY pyridoxine (vitamin B6) 100 MG tablet 100 mg PO DAILY metoprolol succinate 25 MG tablet extended release 24 hr 25 mg PO DAILY buspirone 15 MG tablet 15 mg PO BID midodrine 10 MG tablet 10 mg PO BID bupropion HCl 200 MG tablet sustained-release 12 hr 100 mg PO DAILY alfuzosin 10 MG tablet extended release 24 hr 10 mg PO DAILY cholecalciferol (vitamin D3) 1,000 UNIT tablet 1,000 unit PO DAILY calcium citrate-vitamin D3 1 EACH tablet 1 ea PO DAILY apixaban 5 MG tablet 5 mg PO BID albuterol sulfate 90 MCG aero powdr breath act w/sensor 90 mcg IH PRN PRN (Reason: Wheezing) pantoprazole 40 MG tablet 40 mg PO DAILY Primary Care Provider: Florian Gonzalez Referrals: Florian Gonzalez MD [Primary Care Provider] - [facility] appointment Disposition Disposition: Home, Self Care
--- NOTE | 2022-01-29 05:52 | CT_ITS ---
STUDY: CT CERVICAL SPINE WITHOUT CONTRAST REASON FOR EXAM: Male, 71 years old. Injury/Pain RADIATION DOSAGE (If Supplied By Facility): CTDIvol = ( 26.68 ) mGy, DLP = ( 518.75 ) mGycm TECHNIQUE: High resolution transaxial imaging was performed without contrast material. Sagittal and coronal images were reconstructed. Individualized dose optimization techniques were used for this CT. COMPARISON: None FINDINGS: Normal craniovertebral junction. There are degenerative changes of the anterior atlantoaxial articulation. Normal odontoid process. There is straightening of the normal cervical lordosis. Vertebral bodies have generally normal height and alignment. C2-3: Normal endplates. Normal disc height and morphology. Normal central canal and intervertebral neuroforamina. C3-4: There is narrowing of the disc space with small endplate osteophyte. There is severe bilateral neural foraminal narrowing. There is mild central acquired canal stenosis. C4-5: There is narrowing of the disc space with endplate osteophytes. There is severe right-sided neural foraminal narrowing and moderate left-sided char foraminal narrowing. There is disc bulge and osteophyte complex with mild central canal stenosis. C5-6: There is narrowing of the disc space with endplate osteophytes. There is severe right-sided neural foraminal narrowing and moderate left-sided neural foraminal narrowing with bilateral uncovertebral and facet joint arthropathy. There is a disc bulge and osteophyte complex. There is mild central acquired canal stenosis. C6-7: There is narrowing of the disc space with focal central osteophyte. There is moderate bilateral neural foraminal narrowing with uncovertebral and facet arthropathy. There is mild central acquired canal stenosis. C7-T1: Normal endplates. Normal disc height and morphology. Normal central canal and intervertebral neuroforamina. Lung apices appear to be clear. Paraspinal soft tissues are within normal limits. CT/Spine Cervical without Contras IMPRESSION: 1. No CT evidence of acute compression or displaced fracture. 2. Multilevel degenerative changes of cervical spine with neural foraminal narrowing, as described. Electronically Signed: Renita Jameson MD at 7:05 EDT ,
[2022-01-29] MEDS: Morphine 4 MG/ML Syringe IM (06:07)
[2022-01-29] MEDS: Orphenadrine 60 MG/2 ML Ampul IM (06:10)
[2022-01-29 08:19] VITALS: BP 120/58; PULSE 71; RESP 20; O2SAT 98
== END 2022-01-29 08:30 | disposition home or self-care (01) ==
PROVIDERS: Emergency Provider Emergency Medicine; PCP Internal Medicine; Visit Provider Emergency Medicine
DX: M47.812 Spondylosis without myelopathy or radiculopathy, cervical region (principal); I48.91 Unspecified atrial fibrillation; M48.02 Spinal stenosis, cervical region; Z79.01 Long term (current) use of anticoagulants; Z79.899 Other long term (current) drug therapy; Z98.84 Bariatric surgery status
CPT/HCPCS: 72125; 96372; 99282

== ENCOUNTER 2022-03-13 23:16 | Emergency (ER) | payer MEDICARE, SELFPAY ==
[2022-03-13 23:17] VITALS: BP 165/102; PULSE 66; RESP 18; TEMP 36.4; O2SAT 99; BMI 31.2
--- NOTE | 2022-03-13 23:29 | EDS_ITS ---
HPI History of Present Illness Chief Complaint: Foreign Body Detail of Chief Complaint: Partial dental plate caught on his tongue. Informant: patient and spouse/S.O. Onset/Context/Timing Onset: Today and Hours Context: Sudden Onset Timing: Continuous Current Severity: Mild Maximum Severity: Mild Narrative Narrative: 71-year-old male has a partial plate that the hook got caught on his tongue. He has had this happen before. No other complaints. Prior similar symptoms: Yes Recent Illness/Hospitalization: No PFSH PFSH Medical History Afib Home Medications albuterol sulfate 90 mcg/actuation breath activated powder inhaler,sensor 90 mcg IH PRN PRN Wheezing 10/15/19 [History Last Taken Unknown] alfuzosin 10 mg tablet,extended release 24 hr 10 mg PO DAILY 10/15/19 [History Last Taken Unknown] apixaban 5 mg tablet 5 mg PO BID 10/15/19 [History Last Taken Unknown] atorvastatin 20 mg tablet 20 mg PO DAILY 10/15/19 [History Last Taken Unknown] bupropion HCl 200 mg tablet,12 hr sustained-release 100 mg PO DAILY 10/15/19 [History Last Taken Unknown] buspirone 15 mg tablet 15 mg PO BID 10/15/19 [History Last Taken Unknown] calcium citrate 315 mg calcium-vitamin D3 6.25 mcg (250 unit) tablet 1 ea PO DAILY 10/15/19 [History Last Taken Unknown] cholecalciferol (vitamin D3) 25 mcg (1,000 unit) tablet 1,000 unit PO DAILY 10/15/19 [History Last Taken Unknown] metoprolol succinate 25 mg tablet,extended release 24 hr 25 mg PO DAILY 10/15/19 [History Last Taken Unknown] midodrine 10 mg tablet 10 mg PO BID 10/15/19 [History Last Taken Unknown] multivitamin 1 ea PO DAILY 10/15/19 [History Last Taken Unknown] pyridoxine (vitamin B6) 100 mg tablet 100 mg PO DAILY 10/15/19 [History Last Taken Unknown] sertraline 100 mg tablet 100 mg PO DAILY 10/15/19 [History Last Taken Unknown] pantoprazole 40 mg tablet,delayed release 40 mg PO DAILY 07/21/20 [History Last Taken Unknown] hydrocodone-acetaminophen 5-325mg 5mg-325mg 1 tab PO Q6H PRN PRN Pain 3 days #10 TABLETS 01/29/22 [Rx Last Taken Unknown] orphenadrine citrate 100 mg tablet,extended release 100 mg PO QHS PRN PRN muscle spasm #10 tabs 01/29/22 [Rx Last Taken Unknown] Allergy/AdvReac Type Severity Reaction Status Date / Time rivaroxaban [From Xarelto] Allergy Rash Verified 03/13/22 23:20 Sulfa (Sulfonamide Allergy Rash Verified 03/13/22 23:20 Antibiotics) Surgical History Gastric bypass status for obesity H/O total hip arthroplasty Social History Smoking Status: Never smoker ROS ROS ED ROS Narrative Denies recent illness. Review of Systems ROS Unobtainable: Denies due to encephalopathy Constitutional Constitutional ED: Denies chills or fever(s) Eyes Eyes: Denies blurry vision ENT ENT ED: Denies ear pain Cardiovascular Cardiovascular: Denies chest pain Respiratory/Chest Respiratory/Chest: Denies cough Gastrointestinal Gastrointestinal: Denies abdominal pain Genitourinary Genitourinary ED: Denies dysuria Musculoskeletal Musculoskeletal: Denies arthralgias Integumentary Denies abscess Neurologic Neurologic: Denies headache(s) Psychiatric Psychiatric: Denies anxiety Endocrine Endocrinology: Denies cold intolerance Hematologic/Lymphatic Hematologic/Lymphatic: Reports none Allergic/Immunologic Allergic/Immunologic ED: Denies mouth swelling or tongue swelling EXAM Physical Exam Narrative Exam Narrative: 62-year-old male no acute distress. Vital signs stable afebrile. H EENT exam is a dental partial plate lower jaw that a click from the partial plate is stuck on his left lateral tongue. No active bleeding. No trouble breathing or swallowing. Lungs are clear. Heart regular rate about 65. Abdomen soft nontender. Moving all 4 extremities. Nontender no edema. Awake alert. Const Vital Signs: 03/13/22 23:17 03/13/22 23:21 Temperature 97.6 F L Temperature Source Temporal Pulse Rate 66 Respiratory Rate 18 Respiratory Effort Normal Non-Labored Blood Pressure 165/102 H Blood Pressure Mean 123 Pulse Ox 99 Oxygen Delivery Method Room Air Positive well nourished and well developed; Negative for obese, cachectic, contractures or unkempt General Appearance ED: well developed and NAD; Negative for unkempt, cachectic, contractures, cyanotic or diaphoretic Nutritional Appearance: Negative for cachectic or obese HEENT Reports moist mucous membranes; Denies dry mucous membranes Negative for trauma Mouth ED: No dry mucous membranes Mouth: No dry mucous membranes Eyes PERRL and EOMs intact bilaterally General Eye ED: Negative for pale conjunctiva or scleral icterus Neck no lymphadenopathy, supple and no JVD General: Negative for tenderness Lymph Lymphatic: Negative for other Chest Wall inspection of chest normal Resp normal respiratory effort and clear to auscultation bilaterally Effort and Inspection: Negative for retractions Auscultation: Negative for rales, rhonchi or wheezes Cardio regular rate, S1 normal heart sound, S2 normal heart sound and no murmurs GI normal to inspection, nondistended, normoactive bowel sounds, non-tender, non- distended and no masses Extremity normal to inspection General Extremety ED: Negative for edema or tenderness General Extremity: Negative for edema Neuro oriented x3 and CN's II-XII intact bilaterally Sensorium / Orientation: alert; Negative for orientation impaired, lethargic or stuporous Motor Exam: strength 5/5 throughout Psych mental status grossly normal Appearance: Negative for unkempt Attitude: No agitated Mood & Affect: Negative for depressed, anxious or tearful Skin no rashes or lesions noted Lesions: No lesion noted Rashes: No rashes noted Trauma: Negative for abrasion Wounds: Negative for wounds noted MDM MDM MDM Narrative Medical decision making narrative: 71-year-old male history of A. fib on Eliquis. Partial dental plate stuck on his tongue. Unable to remove it. I cut a small piece of skin on his tongue was able to release the partial plate. Patient tolerated procedure well. No active bleeding. Discharge Plan Triage Chief Complaint: Foreign Body ED Provider: Cortez Maldonado Dx/Rx/DC Orders Clinical Impression: Foreign body of tongue, History of atrial fibrillation, Chronic anticoagulation Prescriptions: No Action multivitamin 1 EACH tablet 1 ea PO DAILY atorvastatin 20 MG tablet 20 mg PO DAILY sertraline 100 MG tablet 100 mg PO DAILY pyridoxine (vitamin B6) 100 MG tablet 100 mg PO DAILY metoprolol succinate 25 MG tablet extended release 24 hr 25 mg PO DAILY buspirone 15 MG tablet 15 mg PO BID midodrine 10 MG tablet 10 mg PO BID bupropion HCl 200 MG tablet sustained-release 12 hr 100 mg PO DAILY alfuzosin 10 MG tablet extended release 24 hr 10 mg PO DAILY cholecalciferol (vitamin D3) 1,000 UNIT tablet 1,000 unit PO DAILY calcium citrate-vitamin D3 1 EACH tablet 1 ea PO DAILY apixaban 5 MG tablet 5 mg PO BID albuterol sulfate 90 MCG aero powdr breath act w/sensor 90 mcg IH PRN PRN (Reason: Wheezing) pantoprazole 40 MG tablet 40 mg PO DAILY hydrocodone-acetaminophen [hydrocodone-acetaminophen] 5-325 mg tablet 1 tab PO Q6H PRN PRN (Reason: Pain) 3 Days Qty: 10 0RF orphenadrine citrate 100 mg tablet extended release 100 mg PO QHS PRN PRN (Reason: muscle spasm) Qty: 10 0RF Primary Care Provider: Florian Gonzalez Referrals: Florian Gonzalez MD [Primary Care Provider] - As Needed Activity Restrictions/Additional Instructions: If any bleeding direct pressure and ice to the area. Follow-up with your dentist to get a new partial plate made. You may also try [facility] here in [place] to see if they can do that work also. Disposition Disposition: Home, Self Care
== END 2022-03-13 23:38 | disposition home or self-care (01) ==
PROVIDERS: Emergency Provider Emergency Medicine; PCP Internal Medicine; Visit Provider Emergency Medicine
DX: T85.898A Other specified complication of other internal prosthetic devices, implants and grafts, initial encounter (principal); I48.91 Unspecified atrial fibrillation; Z79.01 Long term (current) use of anticoagulants; X58.XXXA Exposure to other specified factors, initial encounter
CPT/HCPCS: 10120; 99282

== ENCOUNTER 2022-10-28 18:08 | Emergency (ER) | payer MEDICARE, SELFPAY ==
[2022-10-28 18:09] VITALS: BP 90/65; PULSE 80; RESP 14; TEMP 37.2; O2SAT 98
[2022-10-28 18:12] VITALS: BMI 28.3
[2022-10-28 19:51] VITALS: BP 101/74; O2SAT 100
--- NOTE | 2022-10-28 19:52 | EDS_ITS ---
HPI History of Present Illness Chief Complaint: Allergic Reaction Informant: patient Onset/Context/Timing Onset: Today Context: Gradual Onset Timing: Continuous Current Severity: Mild Maximum Severity: Mild Narrative Narrative: 71-year-old male history of A-fib on Eliquis prior gastric bypass surgery in which she lost 225 pounds. He has chronic hypotension with a normal blood pressure running between 80 and 90. Today he used some Arnica cream on his left shoulder and neck. He has chronic neck pain from the degenerative bulging disc. He has upcoming injections for that. He is already seen spine surgeon for it. They are trying to hold off surgery. States today after he used the cream he started having itching and thinks it was having allergic reaction to it. Denies any recent illness. No fever or vomiting. No diarrhea or melena. Prior similar symptoms: No Recent Illness/Hospitalization: No PFSH PFS Medical History Afib Home Medications albuterol sulfate 90 mcg/actuation breath activated powder inhaler,sensor 90 mcg IH PRN PRN Wheezing 10/15/19 [History Last Taken Unknown] alfuzosin 10 mg tablet,extended release 24 hr 10 mg PO DAILY 10/15/19 [History Last Taken Unknown] apixaban 5 mg tablet 5 mg PO BID 10/15/19 [History Last Taken Unknown] atorvastatin 20 mg tablet 20 mg PO DAILY 10/15/19 [History Last Taken Unknown] bupropion HCl 200 mg tablet,12 hr sustained-release 100 mg PO DAILY 10/15/19 [History Last Taken Unknown] buspirone 15 mg tablet 15 mg PO BID 10/15/19 [History Last Taken Unknown] calcium citrate 315 mg calcium-vitamin D3 6.25 mcg (250 unit) tablet 1 ea PO DAILY 10/15/19 [History Last Taken Unknown] cholecalciferol (vitamin D3) 25 mcg (1,000 unit) tablet 1,000 unit PO DAILY 10/15/19 [History Last Taken Unknown] metoprolol succinate 25 mg tablet,extended release 24 hr 25 mg PO DAILY 10/15/19 [History Last Taken Unknown] midodrine 10 mg tablet 10 mg PO BID 10/15/19 [History Last Taken Unknown] multivitamin 1 ea PO DAILY 10/15/19 [History Last Taken Unknown] pyridoxine (vitamin B6) 100 mg tablet 100 mg PO DAILY 10/15/19 [History Last [employer] Unknown] sertraline 100 mg tablet 100 mg PO DAILY 10/15/19 [History Last Taken Unknown] pantoprazole 40 mg tablet,delayed release 40 mg PO DAILY 07/21/20 [History Last Taken Unknown] hydrocodone-acetaminophen 5-325mg 5mg-325mg 1 tab PO Q6H PRN PRN Pain 3 days #10 TABLETS 01/29/22 [Rx Last Taken Unknown] orphenadrine citrate 100 mg tablet,extended release 100 mg PO QHS PRN PRN muscle spasm #10 tabs 01/29/22 [Rx Last Taken Unknown] Allergy/AdvReac Type Severity Reaction Status Date / Time rivaroxaban [From Xarelto] Allergy Rash Verified 10/28/22 18:09 Sulfa (Sulfonamide Allergy Rash Verified 10/28/22 18:09 Antibiotics) Surgical History Gastric bypass status for obesity H/O total hip arthroplasty Social History Smoking Status: Never smoker ROS ROS ED ROS Narrative Pressure itching. No recent illness Review of Systems ROS Unobtainable: Denies due to encephalopathy Constitutional Constitutional ED: Denies chills or fever(s) Eyes Eyes: Denies blurry vision ENT ENT ED: Denies ear pain Cardiovascular Cardiovascular: Denies chest pain Respiratory/Chest Respiratory/Chest: Denies cough or dyspnea Gastrointestinal Gastrointestinal: Denies abdominal pain Genitourinary Genitourinary ED: Denies dysuria or hematuria Musculoskeletal Musculoskeletal: Reports neck pain; Denies arthralgias, back pain or myalgias Integumentary Denies abscess, Abrasions or rash Neurologic Neurologic: Denies headache(s) Endocrine Endocrinology: Denies cold intolerance Hematologic/Lymphatic Hematologic/Lymphatic: Reports none Allergic/Immunologic Allergic/Immunologic ED: Denies mouth swelling, tongue swelling or urticaria EXAM Physical Exam Narrative Exam Narrative: 71-year-old male. Vital signs are stable with blood pressure is low at 90/65 that is his baseline blood pressure. Sitting upright in bed. No acute distress. H EENT exam unremarkable. Neck nontender. Lungs clear. Heart regular rhythm. Abdomen soft nontender. Moving all 4 extremities. Calves nontender without edema. 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 Neurologically is awake and alert. No focal deficits. Patient had cream on his left neck and shoulder. There is no significant local reaction. No significant rash. Const Vital Signs: 10/28/22 18:09 Temperature 99 F Temperature Source Temporal Pulse Rate 80 Respiratory Rate 14 Blood Pressure 90/65 Blood Pressure Mean 73 Pulse Ox 98 Oxygen Delivery Method Room Air Positive well nourished and well developed; Negative for obese, cachectic, contractures or unkempt General Appearance ED: well developed and NAD; Negative for unkempt, cachectic, contractures, cyanotic, diaphoretic or pallor Nutritional Appearance: Negative for cachectic or obese HEENT Reports moist mucous membranes Negative for trauma or tenderness Eyes EOMs intact bilaterally General Eye ED: Negative for pale conjunctiva or scleral icterus Neck no lymphadenopathy, supple and no JVD General: Negative for tenderness Lymph Lymphatic: Negative for other Chest Wall inspection of chest normal and palpation of chest normal Chest: Negative for other Resp normal respiratory effort and clear to auscultation bilaterally Effort and Inspection: Negative for retractions Auscultation: Negative for rales, rhonchi or wheezes Cardio regular rate, regular rhythm, S1 normal heart sound, S2 normal heart sound and no murmurs GI normal to inspection, nondistended, normoactive bowel sounds, non-tender, non- distended and no masses Inspection: Negative for abdominal distention Auscultation: normoactive bowel sounds Palpation: soft; Negative for tender or guarding Back/Spine no CVA tenderness General Back: Negative for CVA tenderness Cervical Spine: Negative for cervical spine tenderness Thoracic Spine / Upper Back: Negative for thoracic spinal tenderness or paraspinal muscle tenderness Lumbar Spine / Lower Back: Negative for lumbar spinal tenderness Extremity normal to inspection General Extremety ED: Negative for edema or tenderness General Extremity: Negative for edema Neuro oriented x3 and CN's II-XII intact bilaterally Sensorium / Orientation: alert; Negative for orientation impaired Motor Exam: strength 5/5 throughout Psych mental status grossly normal Appearance: Negative for unkempt Attitude: No agitated Mood & Affect: Negative for depressed, anxious or tearful Skin no rashes or lesions noted, no wounds and skin turgor normal General Skin Exam: elasticity normal; Negative for jaundice or pallor Lesions: No lesion noted Rashes: No rashes noted Trauma: Negative for abrasion Wounds: Negative for wounds noted MDM MDM MDM Narrative Medical decision making narrative: 71-year-old possible allergic reaction to Arnica cream. Patient clinically looks well. He will be given 1 dose of prednisone. Discharged home. He is chronically hypotensive. This is his baseline blood pressure. Patient is not having an anaphylactic reaction. History & Record Review Discussion w/independent historian: Patient Discharge Plan Triage Chief Complaint: Allergic Reaction ED Provider: Cortez Maldonado Dx/Rx/DC Orders Clinical Impression: Chronic anticoagulation, Allergic reaction, History of atrial fibrillation Instructions: ED Allergic Reaction Local Other Prescriptions: No Action multivitamin 1 EACH tablet 1 ea PO DAILY atorvastatin 20 MG tablet 20 mg PO DAILY sertraline 100 MG tablet 100 mg PO DAILY pyridoxine (vitamin B6) 100 MG tablet 100 mg PO DAILY metoprolol succinate 25 MG tablet extended release 24 hr 25 mg PO DAILY buspirone 15 MG tablet 15 mg PO BID midodrine 10 MG tablet 10 mg PO BID bupropion HCl 200 MG tablet sustained-release 12 hr 100 mg PO DAILY alfuzosin 10 MG tablet extended release 24 hr 10 mg PO DAILY cholecalciferol (vitamin D3) 1,000 UNIT tablet 1,000 unit PO DAILY calcium citrate-vitamin D3 1 EACH tablet 1 ea PO DAILY apixaban 5 MG tablet 5 mg PO BID albuterol sulfate 90 MCG aero powdr breath act w/sensor 90 mcg IH PRN PRN (Reason: Wheezing) pantoprazole 40 MG tablet 40 mg PO DAILY hydrocodone-acetaminophen [hydrocodone-acetaminophen] 5-325 mg tablet 1 tab PO Q6H PRN PRN (Reason: Pain) 3 Days Qty: 10 0RF orphenadrine citrate 100 mg tablet extended release 100 mg PO QHS PRN PRN (Reason: muscle spasm) Qty: 10 0RF Primary Care Provider: Folrian Gonzalez Referrals: Florian Gonzalez MD [Primary Care Provider] - As Needed Activity Restrictions/Additional Instructions: Obviously do not use that cream anymore. Follow-up with your doctor as needed. Disposition Disposition: Home, Self Care
[2022-10-28] MEDS: predniSONE 20 MG Tablet 60 MG PO (20:14)
== END 2022-10-28 20:19 | disposition home or self-care (01) ==
LOC: ED 20:11
PROVIDERS: Emergency Provider Emergency Medicine; PCP Internal Medicine; Visit Provider Emergency Medicine
DX: T78.40XA Allergy, unspecified, initial encounter (principal); I48.91 Unspecified atrial fibrillation; I95.89 Other hypotension; M50.20 Other cervical disc displacement, unspecified cervical region; G89.29 Other chronic pain; Z79.01 Long term (current) use of anticoagulants; Z98.84 Bariatric surgery status
CPT/HCPCS: 99284

== ENCOUNTER 2024-07-22 16:05 | Emergency (ER) | payer MEDICARE, SELFPAY ==
[2024-07-22 16:07] VITALS: BP 116/72; PULSE 81; RESP 16; TEMP 36.4; O2SAT 98; BMI 31.4
--- NOTE | 2024-07-22 16:31 | EX.ED.GUMALE ---
HPI History of Present Illness Chief Complaint: Male Pain/Injury Informant: patient Pain Onset: Yesterday (Last night) Timing: Continuous Current Severity: Mild Maximum Severity: Mild Narrative Narrative: 73-year-old male on Eliquis which she has been on for years for A-fib. 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 He says from time to time they bleed. Began bleeding last night when he was bathing and he scrubbed off a scab. He has not been able to get the bleeding to stop. Denies any other complaints. Also stated he was going to see his primary care physician to update his tetanus and wanted me to do that today. He denies any nosebleeds. No hematuria. No rectal bleeding. No significant bruising. Prior similar symptoms: Yes Recent Illness/Hospitalization: No [facility] Medical History Afib Home Medications ?Medication ?Instructions ?Recorded ?Last Taken ?Type albuterol sulfate 90 mcg/actuation 90 mcg IH PRN PRN Wheezing 10/15/19 Unknown History breath activated powder inhaler,sensor alfuzosin 10 mg tablet,extended 10 mg PO DAILY 10/15/19 Unknown History release 24 hr apixaban 5 mg tablet 5 mg PO BID 10/15/19 Unknown History atorvastatin 20 mg tablet 20 mg PO DAILY 10/15/19 Unknown History bupropion HCl 200 mg tablet,12 hr 100 mg PO DAILY 10/15/19 Unknown History sustained-release buspirone 15 mg tablet 15 mg PO BID 10/15/19 Unknown History calcium 315 mg (as 1 ea PO DAILY 10/15/19 Unknown History citrate)-vitamin D3 6.25 mcg (250 unit) tablet cholecalciferol (vitamin D3) 25 1,000 unit PO DAILY 10/15/19 Unknown History mcg (1,000 unit) tablet metoprolol succinate 25 mg 25 mg PO DAILY 10/15/19 Unknown History tablet,extended release 24 hr midodrine 10 mg tablet 10 mg PO BID 10/15/19 Unknown History multivitamin 1 ea PO DAILY 10/15/19 Unknown History pyridoxine (vitamin B6) 100 mg 100 mg PO DAILY 10/15/19 Unknown History tablet sertraline 100 mg tablet 100 mg PO DAILY 10/15/19 Unknown History pantoprazole 40 mg tablet,delayed 40 mg PO DAILY 07/21/20 Unknown History release hydrocodone-acetaminophen 5-325mg 1 tab PO Q6H PRN PRN Pain 3 days 01/29/22 Unknown Rx 5mg-325mg #10 TABLETS orphenadrine citrate 100 mg 100 mg PO QHS PRN PRN muscle spasm 01/29/22 Unknown Rx tablet,extended release #10 tabs Allergy/AdvReac Type Severity Reaction Status Date / Time rivaroxaban (From Xarelto) Allergy Rash Verified 10/28/22 18:09 Sulfa (Sulfonamide Allergy Rash Verified 10/28/22 18:09 Antibiotics) niacin AdvReac Mild Rash Verified 07/22/24 16:07 Surgical History H/O total hip arthroplasty Gastric bypass status for obesity Social History Smoking Status: Never smoker ROS ROS ED ROS Narrative Denies recent illness. Constitutional Constitutional ED: Denies chills or fever(s) Eyes Eyes: Denies blurry vision ENT ENT ED: Denies ear pain Cardiovascular Cardiovascular: Denies chest pain Respiratory/Chest Respiratory/Chest: Denies cough or dyspnea Gastrointestinal Gastrointestinal: Denies abdominal pain Genitourinary Genitourinary ED: Denies dysuria or hematuria Musculoskeletal Musculoskeletal: Denies arthralgias Integumentary Denies abscess Neurologic Neurologic: Denies headache(s) Psychiatric Psychiatric: Denies anxiety or depression Endocrine Endocrinology: Denies polydipsia Hematologic/Lymphatic Hematologic/Lymphatic: Reports easy bleeding; Denies lymphadenopathy Allergic/Immunologic Allergic/Immunologic ED: Denies mouth swelling, tongue swelling or urticaria EXAM Physical Exam Narrative Exam Narrative: 73-year-old male sitting upright in bed. Vital signs are stable afebrile. H EENT exam pupils round reactive light. Moist mucous membranes. Neck nontender. Lungs clear. Heart A-fib rate about 80 no murmur. Chest wall ribs nontender. Abdomen soft nontender. Moving all 4 extremities. Nontender. Trace edema. Normal strength. Neurologically is awake alert. External exam. Left side of the scrotum is varicosities. 1 is mildly oozing. He says it has slowed with direct pressure. There is no signs of infection. No cellulitis. Const Vital Signs: 07/22/24 16:07 07/22/24 21:10 Temperature 97.6 F L Temperature Source Oral Pulse Rate 81 Respiratory Rate 16 Blood Pressure 116/72 139/96 H Blood Pressure Mean 86 110 Pulse Ox 98 Oxygen Delivery Method Room Air Positive well nourished and well developed; Negative for cachectic, contractures or unkempt General Appearance ED: well developed and NAD; Negative for unkempt, cachectic or contractures Nutritional Appearance: Negative for cachectic HEENT Reports moist mucous membranes normocephalic and atraumatic; Negative for trauma or tenderness Eyes PERRL and EOMs intact bilaterally General Eye ED: Negative for pale conjunctiva or scleral icterus Neck no lymphadenopathy, supple and no JVD General: Negative for tenderness Resp normal respiratory effort and clear to auscultation bilaterally Effort and Inspection: Negative for retractions Auscultation: Negative for rales, rhonchi, wheezes or diminished lung sounds Cardio Negative for regular rate or regular rhythm Cardio Narrative: A-fib rate about 80. Rhythm: abnormal rhythm GI non-tender, non-distended and no masses Auscultation: normoactive bowel sounds Palpation: soft; Negative for tender or guarding Narrative: Varicosities in the left hemiscrotum. 1 mildly bleeding. Back/Spine no CVA tenderness Extremity Negative for normal to inspection General Extremety ED: Yes edema General Extremity: edema Neuro oriented x3, CN's II-XII intact bilaterally, moves all extremities and no focal motor deficits Sensorium / Orientation: alert, oriented to person, oriented to place and oriented to time Motor Exam: strength 5/5 throughout Psych mental status grossly normal Appearance: Negative for unkempt Skin Lesions: no lesions Rashes: no rashes MDM MDM MDM Narrative Medical decision making narrative: 73-year-old male on Eliquis with bleeding from left scrotal varicosity. Direct pressure and Surgicel. Will check a CBC and chemistry. Repeat exam patient is doing well at 9:25 PM. Bleeding is completely resolved. He held direct pressure with Surgicel on it. The bleeding is stopped. He will be discharged to home with outpatient follow-up as needed. Return if bleeding continues. Lab Data Attestation: I reviewed the patient's lab results. Lab results narrative: CBC shows a white count 4.3. H&H 12.2 and 36.2 which is his baseline anemia. Platelets 191. Electrolytes show a gap of 8. Normal BUN and creatinine. Glucose is only 64 to be rechecked prior to discharge. Labs: Laboratory Results - last 24 hr 07/22/24 16:50 WBC 4.3 L RBC 3.95 L Hgb 12.2 L Hct 36.2 L MCV 91.6 MCH 30.9 MCHC 33.7 RDW Std Deviation 48.3 H RDW Coeff of Anmol 14.4 Plt Count 191 MPV 11.3 Immature Gran % (Auto) 0.200 Neut % (Auto) 47.6 Lymph % (Auto) 41.3 H Lander % (Auto) 5.8 Eos % (Auto) 4.4 Baso % (Auto) 0.7 Absolute Neuts (auto) 2.1 Absolute Lymphs (auto) 1.78 Nucleated RBC % 0 Sodium 140 Potassium 4.1 Chloride 108 Carbon Dioxide 24.5 Anion Gap 8 BUN 17 Creatinine 0.86 Estim Creat Clear Calc 99.80 Est GFR (MDRD) Non-Af 92 BUN/Creatinine Ratio 19.2 Glucose 64 L Calcium 9.1 Discharge Plan Triage Chief Complaint: Male Pain/Injury ED Provider: Cortez Maldonado Dx/Rx/DC Orders Clinical Impression: Chronic anticoagulation, Scrotal bleeding Prescriptions: No Action multivitamin 1 EACH tablet 1 ea PO DAILY atorvastatin 20 MG tablet 20 mg PO DAILY sertraline 100 MG tablet 100 mg PO DAILY pyridoxine (vitamin B6) 100 MG tablet 100 mg PO DAILY metoprolol succinate 25 MG tablet extended release 24 hr 25 mg PO DAILY buspirone 15 MG tablet 15 mg PO BID midodrine 10 MG tablet 10 mg PO BID bupropion HCl 200 MG tablet sustained-release 12 hr 100 mg PO DAILY alfuzosin 10 MG tablet extended release 24 hr 10 mg PO DAILY cholecalciferol (vitamin D3) 1,000 UNIT tablet 1,000 unit PO DAILY calcium citrate-vitamin D3 1 EACH tablet 1 ea PO DAILY apixaban 5 MG tablet 5 mg PO BID albuterol sulfate 90 MCG aero powdr breath act w/sensor 90 mcg IH PRN PRN (Reason: Wheezing) pantoprazole 40 MG tablet 40 mg PO DAILY hydrocodone-acetaminophen [hydrocodone-acetaminophen] 5-325 mg tablet 1 tab PO Q6H PRN PRN (Reason: Pain) 3 Days Qty: 10 0RF orphenadrine citrate 100 mg tablet extended release 100 mg PO QHS PRN PRN (Reason: muscle spasm) Qty: 10 0RF Primary Care Provider: Florian Gonzalez Referrals: Florian Gonzalez MD [Primary Care Provider] - As Needed Activity Restrictions/Additional Instructions: You can take that dressing off in 1 to 2 days. I would take it off gently with water. I would hold your blood thinner the Eliquis tomorrow. And restart it normally on Monday. If it rebleeds hold direct pressure if you are unable get it to stop return. Print Language: Maltese Disposition Disposition: Home, Self Care
[2024-07-22] MEDS: Diphth,Pertuss(Acell),Tet Vac 0.5 ML Vial IM (16:58)
[2024-07-22 17:08] LABS: NRBC Flagged by Analyzer 0 % (0-5)
[2024-07-22 17:29] LABS: Basophil# 0.03 X10^3/uL; Basophil% 0.7 % (0-1)
[2024-07-22 17:37] LABS: Anion Gap 8 (5-15); BUN 17 mg/dL (4-19); BUN/Creat Ratio 19.2 RATIO (10-20); Calcium,Total 9.1 mg/dL (7.6-11.0); Carbon Dioxide 24.5 mmol/L (21.0-32.0); Chloride 108 mmol/L (98-108); Creatinine, Serum 0.86 mg/dL (0.70-1.20); EST Glomerular Filtration Rate 92 (>60); Glucose 64 mg/dL (70-99); Potassium 4.1 mmol/L (3.3-5.1); Sodium Level 140 mmol/L (133-145)
[2024-07-22 17:48] LABS: Hematocrit 36.2 % (40-54); Hemoglobin 12.2 g/dL (13.0-16.5); Red Blood Count 3.95 M/mm3 (4.6-6.2); White Blood Count 4.3 K/mm3 (4.4-11.0)
[2024-07-22 17:49] LABS: Mean Corp Hgb Conc 33.7 g/dL (32-36); Mean Corpuscular Hgb 30.9 pg (27.0-32.0); Mean Corpuscular Volume 91.6 fL (80-94); RBC Distribution Width CV 14.4 % (11.6-14.6)
[2024-07-22 17:50] LABS: Mean Platelet Vol. 11.3 fl (6.2-12.0); Platelet Count 191 K/mm3 (150-450); RBC Distribution Width SD 48.3 fl (35.1-43.9)
[2024-07-22 17:52] LABS: Eosinophils% 4.4 % (0-5); Lymphocyte % 41.3 % (19-41); Monocyte% 5.8 % (0-10); Neutrophil % 47.6 % (47-70)
[2024-07-22 17:53] LABS: Absolute Neutrophil Count 2.1 X10^3/uL (2.0-7.7); Neutrophil # 2.05 X10^3/uL (2.7-7.7)
[2024-07-22 17:54] LABS: Absolute Lymphocyte Count 1.78 X10^3/uL (0.83-4.51); Lymphocyte # 1.78 X10^3/ul (0.83-4.51)
[2024-07-22 17:55] LABS: Eosinophil# 0.19 X10^3/uL; Monocyte# 0.25 X10^3/uL
[2024-07-22 21:10] VITALS: BP 139/96
--- NOTE | 2024-07-22 21:45 | ED.RN ---
RN enters patient room. Rn states Sir, I have your discharge paperwork. patient states I am so pissed right now! RN states why is that sir? Patient states I waited a long time to come back to a room. I saw a doctor and did not see anyone for 2 hours. I had to pee and take a shit. I was knocking on the door and everyone just ignored me like I was saying Hi. I've been sitting here for 6 hours. Rn states sir I am very sorry you were ignored. That is not acceptable. this is no excuse but we have some very sick people come in so it pulled some staff away. Again, this is no reason for you to be ignored for 2 hours. Patient states ignored is an understatement. I will be going to someone higher up to complain. Rn states she will remove IV. Patient states well they didn't even use the damn thing. She missed twice and then someone else was called in and didn't even use it. Rn states they did use it. they took blood out of it when they put it in. patient states Oh, I did not know that. Rn reviews discharge paperwork and patient has no further questions
== END 2024-07-22 21:53 | disposition home or self-care (01) ==
PROVIDERS: Emergency Provider Emergency Medicine; PCP Internal Medicine; Visit Provider Emergency Medicine
DX: I86.1 Scrotal varices (principal); I48.91 Unspecified atrial fibrillation; Z79.01 Long term (current) use of anticoagulants
CPT/HCPCS: 80048; 85025; 90715; 99282; A4216

== ENCOUNTER 2024-12-29 19:33 | Observation (INO) | payer MEDICARE, SELFPAY ==
[2024-12-29 19:34] VITALS: BP 128/109; PULSE 84; RESP 16; TEMP 36.8; O2SAT 98; BMI 31.6
--- NOTE | 2024-12-29 20:16 | CM.ED ---
Social Work Date of referral: 12/29/24 Reason for referral: Resources and no Advanced Care Directives (ACD's) on file Referred by: Social Work identification Patient provided consent for social work visit. Chief Deputy Coroner provided a written handout/resource to patient for an emergency response device with GPS and fall detection/provided fall prevention education and requested patient to bring in a copy of his advanced care directives which patient agreed to do. Kusum Arias, COAT MAKER, CHEMICAL ENGINEER
--- NOTE | 2024-12-29 20:28 | CT_ITS ---
PROCEDURE: SPINE CERVICAL WITHOUT CONTRAS 12/29/2024 REASON FOR EXAM: TRAUMA TECHNIQUE: Procedure Code: CTSPC Modality: CT Procedure: SPINE CERVICAL WITHOUT CONTRAS Coronal and Sagittal reconstruction series were provided. One or more dose reduction techniques were used (e.g., Automated exposure control, adjustment of the mA and/or kV according to patient size, use of iterative reconstruction technique. RADIATION DOSE SUMMARY: CTDlvol: Please see CT mGy DLP: Please see CT mGycm COMPARISON: CT cervical spine January 29, 2022. Prior report is not available. FINDINGS: Osseous: There is reversal of upper cervical lordosis, similar to the prior exam. Cervical vertebral body heights are maintained. Minimal cervical malalignments are noted likely due to reversed cervical lordosis and appears similar to the prior exam. No acute appearing spondylolisthesis. Cervical facet joints are not subluxed or dislocated. The atlantodental interval is maintained. Atlanto occipital and atlantoaxial articulations are maintained. There is no acute fracture of the cervical spine. The occipital condyles are intact. Well corticated calcification seen posterior to the spinous process of C7, possibly old injury or dystrophic soft tissue calcification, unchanged. Severe degenerative change of the cervical spine is noted with disc space loss, anterior osteophytes, posterior bony ridging, uncovertebral bony hypertrophy and facet arthropathy. If there are neurologic symptoms or radiculopathy, further evaluation by MRI is advised. Soft tissues: No focal prevertebral soft tissue swelling. No posterior paraspinal soft tissue hematoma. No cervical soft tissue emphysema. Vascular: Vascular and carotid calcifications noted. Vascular patency can not be assessed on this study. Lung apices: No acute consolidation is seen at the visualized lung apices. CT/Spine Cervical without Contras IMPRESSION: No acute fracture of the cervical spine. - Other findings and recommendations discussed above. Reading Location: [id number]
--- NOTE | 2024-12-29 20:28 | CT_ITS ---
PROCEDURE: BRAIN/HEAD WITHOUT CONTRAST 12/29/2024 REASON FOR EXAM: HEAD TRAUMA TECHNIQUE: Procedure Code: CTBR Modality: CT Procedure: BRAIN/HEAD WITHOUT CONTRAST Coronal and Sagittal reconstruction series were provided. One or more dose reduction techniques were used (e.g., Automated exposure control, adjustment of the mA and/or kV according to patient size, use of iterative reconstruction technique. RADIATION DOSE SUMMARY: CTDlvol: Please see CT mGy DLP: Please see CT mGycm COMPARISON: June 30, 2021 FINDINGS: Note: Images through the base of the brain and posterior fossa including the brainstem are slightly degraded by beam hardening artifact from the adjacent calvarium. Brain: There is no evidence of acute intracranial hemorrhage. Note is made that some parenchymal contusions may not be visible immediately. Consider follow-up imaging as clinically indicated. There is moderately severe global parenchymal volume loss resulting in prominent extra-axial CSF attenuation fluid. Appearance of the basal cisterns is unremarkable. There is no Chiari malformation. There is intracranial calcific atherosclerosis. Mild microvascular ischemic changes again noted. No parenchymal changes are seen suggestive of cytotoxic edema to indicate an acute territorial vascular infarct. Note is made that CT changes may lag clinical findings an acute stroke. If indicated, consider follow-up imaging or diffusion-weighted MRI. There is no midline shift or herniation. No evidence of pneumocephalus. Incidental intracranial calcifications noted. Ventricles: The ventricles do not appear obstructed. Pituitary: The pituitary fossa does not appear enlarged. The pituitary stalk does not appear deviated. Soft tissues: No pericranial scalp hematoma. Orbits: Ocular postoperative changes noted bilaterally. Osseous: No acute calvarial fracture. No suspicious bone lesion. Visualized paranasal sinuses: No fluid in the paranasal sinuses. Mastoids: No fluid or opacification of mastoid air cells. Middle ear cavities: The visualized middle ear cavities are not opacified. CT/Brain/Head without Contrast IMPRESSION: No evidence of acute intracranial injury. No evidence of acute intracranial hemorrhage or acute calvarial fracture. - Other findings and recommendations discussed above. Reading Location: [id number]
[2024-12-29 20:39] LABS: Hematocrit 33.7 % (40-54); Hemoglobin 11.4 g/dL (13.0-16.5); Immature Granulocytes Count 0.040 X10^3/uL (0.0-0.0); Mean Corp Hgb Conc 33.8 g/dL (32-36); Mean Corpuscular Volume 92.1 fL (80-94); Mean Platelet Vol. 11.5 fl (6.2-12.0); NRBC Flagged by Analyzer 0 % (0-5); Platelet Count 202 K/mm3 (150-450); RBC Distribution Width CV 14.1 % (11.6-14.6); RBC Distribution Width SD 47.8 fl (35.1-43.9); Red Blood Count 3.66 M/mm3 (4.6-6.2); White Blood Count 9.6 K/mm3 (4.4-11.0)
[2024-12-29 20:53] LABS: Anion Gap 13 (5-15); BUN 20 mg/dL (4-19); BUN/Creat Ratio 17.5 RATIO (10-20); Calcium,Total 9.1 mg/dL (7.6-11.0); Carbon Dioxide 21.6 mmol/L (21.0-32.0); Chloride 103 mmol/L (98-108); Estimated Creatinine Clearance 76.40 ml/min (50-250); Glucose 101 mg/dL (70-99); Potassium 4.0 mmol/L (3.3-5.1)
[2024-12-29 21:00] VITALS: BP 140/98; PULSE 74; RESP 18; O2SAT 100
--- NOTE | 2024-12-29 21:00 | RAD_ITS ---
PROCEDURE: FEMUR MIN 2 VIEWS 12/29/2024 REASON FOR EXAM: INJURY/PAIN TECHNIQUE: Procedure Code: RADFEM Modality: DX Procedure: FEMUR MIN 2 VIEWS Laterality: Left COMPARISON: None FINDINGS: Osseous: There is a left total hip replacement, with non cemented components, which appears in anatomic alignment. The left hip joint is not subluxed or dislocated. There may be mild superolateral acetabular liner wear. No acute fracture is seen at the left hip. If there are symptoms related to the left knee, consider obtaining dedicated joint views. Osteoarthritic changes at the knee are noted. Soft tissue: Soft tissue injury can not be assessed by this technique. Vascular: Vascular calcification is seen throughout the left leg. RAD/Femur Min 2 Views IMPRESSION: No radiographic evidence of an acute osseous injury of the left femur. - Other findings discussed above in detail. Reading Location: [id number]
--- NOTE | 2024-12-29 21:00 | RAD_ITS ---
PROCEDURE: PELVIS 1 OR 2 VIEWS 12/29/2024 REASON FOR EXAM: INJURY/PAIN TECHNIQUE: Procedure Code: RADPEL Modality: DX Procedure: PELVIS 1 OR 2 VIEWS COMPARISON: None FINDINGS: Osseous: There are bilateral hip replacements which extend below the level of this exam. The femoral heads are centered to the acetabula. If there are symptoms related to either hip joint, dedicated joint views are advised. Pelvic congruency is maintained. Evaluation of the sacrum is compromised by overlying fecal material and bowel gas. Degenerative change of the visualized lower lumbar spine noted. No radiographic evidence of acute displaced fracture of the pelvis is seen on this single frontal view. Soft tissues: Soft tissue injury is not well evaluated by this technique. RAD/Pelvis 1 or 2 Views IMPRESSION: No radiographic evidence of an acute displaced fracture of the pelvis. - Other findings and limitations discussed above. Reading Location: [id number]
--- OUTSIDE RECORDS SUMMARY | 2024-12-29 21:04 | XMS RPT_ITS | CCD ---
Author Organization [facility] Care Team Providers Care Pan Dumper Name Role Phone Jr STUART, Preethi B Unavailable [phone] Florian Gonzalez MD Primary Care Provider FAUSTINA STUART, DR MOSS Primary Care Physician FAUSTINA STUART., DR. MOSS Primary Care MATT Mcdaniel DO Attending Unavailable Jr STUART, Preethi B Unavailable [phone]- 72 Florian Gonzalez MD Primary Care Provider Unavailable, Family Physician Primary Care Un available Unavailable, Family Physician Consulting Un available Rubio Pantoja Attending Unavailable Preethi Portillo MD Unavailable [phone]- 72 Florian Gonzalez MD Primary Care Provider Florian Gonzalez Primary Care Provider Florian Gonzalze Primary Care Provider FLORIAN GONZALEZ Primary Care Unavailable BACKER, BUDDHISM Attending Unavailable BACKER, BUDDHISM Referring Unavailable GONZALEZ, FLORIAN Primary Care Unavailable BACKER, BUDDHISM Attending Unavailable BACKER, BUDDHISM Referring Unavailable GONZALEZ, FLORIAN Primary Care Unavailable BACKER, BUDDHISM Referring Unavailable BACKER, BUDDHISM Attending Unavailable FAUSTINA, FLROIAN Primary Care Unavailable TOYA SMITH Attending Unavailable GONZALEZ, FLORIAN Primary Care Unavailable BACKER, BUDDHISM Referring Unavailable BACKER, BUDDHISM Attending Unavailable GONZALEZ, FLORIAN Primary Care Unavailable BACKER, BUDDHISM Referring Unavailable BACKER, BUDDHISM Attending Unavailable BACKER, BUDDHISM Referring Unavailable GONZALEZ, FLORIAN Primary Care Unavailable GONZALEZ, FLORIAN Primary Care Unavailable LUIS, TOYA Admitting Unavailable LUIS, TOYA Attending Unavailable GONZALEZ, FLORIAN Primary Care Unavailable BACKER, BUDDHISM Referring Unavailable LUIS, TOYA Attending Unavailable LUIS, TOYA Attending Unavailable CLEVEREJAQUELINE DÍAZ Referring Unavailable GONZALEZ, FLORIAN Primary Care Unavailable BACKER, BUDDHISM Referring Unavailable BACKER, BUDDHISM Attending Unavailable BACKER, BUDDHISM Referring Unavailable BACKER, BUDDHISM Attending Unavailable GONZALEZ, FLORIAN Primary Care Unavailable BACKER, BUDDHISM Attending Unavailable BACKER, BUDDHISM Referring Unavailable GONZALEZ, FLORIAN Primary Care Unavailable BACKER, BUDDHISM Attending Unavailable BACKER, BUDDHISM Referring Unavailable GONZALEZ, FLORIAN Primary Care Unavailable BACKER, BUDDHISM Attending Unavailable BACKER, BUDDHISM Referring Unavailable GONZALEZ, FLORIAN Primary Care Unavailable GONZALEZ, FLORIAN Primary Care Unavailable LUIS, TOYA Attending Unavailable GONZALEZ, FLORIAN Primary Care Unavailable BACKER, BUDDHISM Referring Unavailable BACKER, BUDDHISM Attending Unavailable BACKER, BUDDHISM Attending Unavailable GONZALEZ, FLORIAN Primary Care Unavailable GONZALEZ, FLORIAN Primary Care Unavailable LUIS, TOYA Attending Unavailable GONZALEZ, FLORIAN Primary Care Unavailable LUIS, TOYA Attending Unavailable TIMOTHY MARIEOLAS Referring Unavailable LUIS, TOYA Attending Unavailable PHIL LOBATO Attending Unavailable GONZALEZ, FLORIAN Primary Care Unavailable GONZALEZ, FLORIAN Primary Care Unavailable BACKER, BUDDHISM Referring Unavailable GONZALEZ, FLORIAN Attending Unavailable LUIS, TOYA Attending Unavailable GONZALEZ, FLORIAN Primary Care Unavailable Scarlett STUART, Rubio Samano Primary Care Provider FLORIAN GONZALEZ Primary Care Unavailable Faustina STUART, Florian Rubio Primary Care Provider EBTTY SHANE Attending Unavailable BETTY SHANE Referring Unavailable PREETHI PORTILLO Primary Care Unavailable Unavailable Primary Care Provider Unavaillarry Etienne TEXTILE BROKER.FACING GRINDER, Shea M Unavailable JERRY KELLOGG Attending Unavailable JERRY KELLOGG Referring Unavailable Flash REDDY, Jenn Unavailable Dr. Florian Gonzalez MD Primary Care Provider Dr. Cortez Maldonado MD Emergency Provider Dr. Cortez Maldonado MD Attending Provider Dr. Florian Gonzalez MD Referring Provider [phone] Dr. Lyudmila Euceda MD Attending Provider Florian Gonzalez Primary Care Unavailable Florian Gonzalez Referring Unavailable Lyudmila Euceda Attending Unavailable Cortez Maldonado Attending Unavailable Faustina, Florian Primary Care Unavailable Flash REDDY, Jenn Unavailable FAUSTINA, FLORIAN Rubio Referring Unavailable GONZALEZ, DAISY Primary Care Unavailable SHEA ETIENNE Attending Unavailable FAUSTINA, DAISY Primary Care Unavailable GONZALEZ, DAISY Primary Care Unavailable QUINCY ALONZO Referring Unavailable CLINTON, QUINCY Murray Attending Unavailable FAUSTINA, DAISY Primary Care Unavailable GONZALEZ, DAISY Referring Unavailable RAJGURU, QUINCY Murray Attending Unavailable FAUSTINA, DAISY Primary Care Unavailable CLINTON, QUINCY Murray Referring Unavailable SHEA ETIENNE Attending Unavailable FAUSTINA, FLORIAN Rubio Primary Care Unavailable FAUSTINA, DAISY Referring Unavailable GONZALEZ, DAISY Primary Care Unavailable JOSSELIN MALDONADO Attending Unavailable GONZALEZ, FLORIAN Rubio Primary Care Unavailable JOSSELIN MALDONADO Referring Unavailable RAJSABRINARUQUINCY Attending Unavailable FAUSTINA, DAISY Primary Care Unavailable RAJGURU, QUINCY Murray Referring Unavailable GONZALEZ, DAISY Primary Care Unavailable DOMO GRANDA Attending Unavailable ISA ALONSO Attending Unavailable FAUSTINA, FLORIAN Rubio Primary Care Unavailable GONZALEZ, DAISY Referring Unavailable GONZALEZ, DAISY Referring Unavailable GONZALEZ, DAISY Primary Care Unavailable GONZALEZ, DAISY Primary Care Unavailable DEON GLEZ Referring Unavailable SHEA ETIENNE Attending Unavailable FAUSTINA, DAISY Primary Care Unavailable GONZALEZ, DAISY Primary Care Unavailable QUINCY ALONZO Attending Unavailable JUNIORGURU, QUINCY Murray Referring Unavailable GONZALEZ, DAISY Primary Care Unavailable ANTONIO STAHL Attending Unavailable GONZALEZ, DAISY Referring Unavailable GONZALEZ, DAISY Primary Care Unavailable ISA ALONSO Attending Unavailable GONZALEZ, FLORIAN Rubio Primary Care Unavailable GONZALEZ, DAISY Primary Care Unavailable ILA PRESLEY Attending Unavailable GONZALEZ, DAISY Primary Care Unavailable ILA PRESLEY Referring Unavailable FLORIAN GONZALEZ Primary Care Unavailable DOMO GRANDA Referring Unavailable FLORIAN GONZALEZ Primary Care Unavailable QUINCY ALONZO Attending Unavailable QUINCY ALONZO Referring Unavailable FLORIAN GONZALEZ Primary Care Unavailable FLORIAN GONZALEZ Attending Unavailable FLORIAN GONZALEZ Primary Care Unavailable SHEA ETIENNE Referring Unavailable FLORIAN GONZALEZ Primary Care Unavailable Allergies Allergy Classification Reported Allergen(s) Allergy Type Date of Onset Reaction(s) Facility Adhesive Tape (1 source) Adhesive Tape Substance Allergy 0 [facility] Work Phone: Niacin (1 source) Niacin Drug Allergy 4 Other: See Comments [facility] NSAIDs (1 source) Diclofenac Drug Allergy 6 [facility] rivaroxaban (1 source) rivaroxaban Drug Allergy 3 [facility] Sulfonamides (antibiotic) (1 source) Sulfonamides (Antibiotic) Drug Allergy 8 Intolerance, [facility] (20 sources) rivaroxaban; Translations: [RIVAROXABAN] Drug Allergy 3 [facility] (20 sources) Sulfonamides (Antibiotic); Translations: [SULFA (SULFONAMIDE ANTIBIOTICS)] Allergy to substance 8 [facility] (20 sources) Adhesive Tape; Translations: [ADHESIVE TAPE (ROSINS)] Allergy to substance 0 [facility] Work Phone: (20 sources) Diclofenac; Translations: [DICLOFENAC SODIUM] Drug Allergy 6 [facility] (20 sources) Wool; Translations: [WOOL] Propensity to adverse reactions 0 Itching [facility] Work Phone: (20 sources) Non-steroidal anti-inflammator y agent Propensity to adverse reactions 3 [facility] (20 sources) rivaroxaban Drug Allergy 3 Rash, Anxiety, Hives, Itching [facility] (20 sources) Sulfonamides (Antibiotic) Drug Allergy 8 Hives, Other [facility] (20 sources) Other Propensity to adverse reactions 3 [facility] (20 sources) Niacin; Translations: [NIACIN] Drug Allergy 4 Other: See Comments [facility] (4 sources) Niacin Drug Allergy 3 Anxiety, Dizziness, Headache, Hives, Itching, Other, Rash [facility] (12 sources) Wound Dressing Adhesive Propensity to adverse reactions 0 Itching, Other, Swelling, Rash [facility] (9 sources) Diclofenac Drug Allergy 6 Rash [facility] (1 source) Diclofenac Drug Allergy 5 [facility] (1 source) Niacin Drug Allergy 5 [facility] (1 source) rivaroxaban Drug Allergy 5 [facility] Medications Current Medications Medication Drug Class(es) Dates Sig (Normalized) Sig (Original) acetaminophen 300 mg / codeine phosphate 30 mg oral tablet (20 sources) Opioid Agonist Start: 11-05-2021 End: 05-12-2023 acetaminophen-code ine (Tylenol w/ Codeine #3) 300-30 MG tablet TAKE ONE TABLET EVERY 6-8 HRS NEEDS FOR PAIN 11/05/2021 Active Start: 10-01-2021 End: 05-09-2022 take 1 tablet by mouth every eight hours as needed acetaminophen-codeine (TYLENOL-COD #3) 300-30 mg per tablet Take 1 tablet by mouth three times daily as needed for pain (from Dr. Zimmerman). 0 10/01/2021 05/09/2022 Discontinued (Course of therapy completed) Comment on above: Take 1 tablet by nilsa th three times daily as needed for pain (from Dr. Zimmerman). TAKE 1 TABLET BY NILSA TH EVERY 6-8 HOURS NEEDED FOR PAIN. acetaminophen 325 mg / HYDROcodone bitartrate 5 mg oral tablet (20 sources) Opioid Agonist Start: 10-09-2024 End: 10-14-2024 take 1 tablet by mouth every eight hours as needed for pain HYDROcodone-aceta minophen (NORCO) 5-325 mg per tablet Indications: Acute midline low back pain without sciatica Take 1 tablet by mouth every 8 hours as needed for pain for up to 5 days. 15 tablet 10/09/2024 10/14/2024 Active Start: 07-27-2022 [place] 5-325 MG tablet 07/27/2022 Active Start: 07-18-2022 End: 07-25-2022 take 1 tablet by mouth every twelve hours as needed for pain HYDROcodone-acetaminophen ([place]) 5-325 MG tablet Indications: Pain Take 1 tablet by mouth every 12 hours as needed for severe pain (7-10) or moderate pain (4-6) for up to 7 days. 14 tablet 0 07/18/2022 07/25/2022 Active Start: 01-29-2022 End: 09-18-2024 Hydrocodone-Acetaminophen 5- 325 mg tablet Discontinued 1 {tbl} PO EVERY 6 HOURS NEEDED as needed for Pain 01 10January 29, 2022 September 18, 2024 11:04am Start: 01-29-2022 End: 05-09-2022 HYDROcodone-acetaminophen (N ORCO) 5-325 mg per tablet Take by mouth. 0 01/29/2022 Active Start: 01-29-2022 End: 07-01-2022 HYDROcodone-acetaminophen (N orco) 5-325 MG tablet Start: 01-29-2022 take 1 tablet by nilsa th every six hours as needed Hydrocodone-Acetaminophen Active 1 TABLET PO EVERY 6 HOURS NEEDED 01 10January 29, 2022 Comment on above: Take by mouth. Take 1 tablet by nilsa th every 6 hours as needed for pain. [id number] 200 actuat albuterol 0.09 mg/actuat metered dose inhaler (20 sources) beta2-Adrenergic Agonist Start: take 1-2 puff(s) by inhalation four times daily as needed for wheezing albuterol HFA (PROVENTIL HFA) 90 mcg/actuation inhaler Indications: 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) Inhale 1-2 puffs as instructed four times a day as needed for wheezing/shortness of breath. 18 g 08/29/2024 Active Start: 05-28-2024 take 1-2 puff(s) by inhalation four times daily as needed for wheezing albuterol HFA (PROVENTIL HFA) 90 mcg/actuation inhaler Indications: Acute cough , Acute non-recurrent frontal sinusitis Inhale 1-2 Puffs as instructed four times a day as needed for wheezing/shortness of breath. 18 g 05/28/2024 Active Start: 10-15-2019 Albuterol Sulf ate 90 MCG aero powdr breath act w/sensor Active 90 ug IH NEEDED as needed for Wheezing October 15, 2019 12:00am Start: 10-15-2019 Albuterol Sulf ate Active 90 MCG IH NEEDED October 14, 2019 11:00pm amoxicillin 875 mg / clavulanate 125 mg oral tablet (2 sources) Penicillin-class Antibacterial Start: 05-28-2024 End: 06-04-2024 take 1 tablet by mouth twice daily at mealtime amoxicillin-clavulanate potassium (AUGMENTIN) 875-125 mg per tablet Indications: Acute cough , Acute non-recurrent frontal sinusitis Take 1 tablet by mouth two times a day for 7 days. Take with food 14 tablet 05/28/2024 06/04/2024 Active apixaban 5 mg oral tablet (20 sources) Factor Xa Inhibitor Start: 04-25-2019 End: 09-18-2024 take 1 tablet by mouth twice daily apixaban (ELIQUIS) 5 mg tab(s) Take 1 tablet by mouth two times a day. 04/25/2019 Active Comment on above: Take 1 tablet by mouth twice daily. TAKE 1 TABLET BY NILSA TH TWICE A DAY Take 1 tablet by nilsa th two times a day. atorvastatin 20 mg oral tablet (20 sources) HMG-CoA Reductase Inhibitor Start: 02-06-2023 End: 05-14-2024 take 1 tablet by mouth once daily atorvastatin (LIPITOR) 20 mg tablet Indications: Hyperlipidemia, unspecified hyperlipidemia type Take 1 tablet by mouth once daily. 90 tablet 3 05/14/2024 Active Start: 02-06-2023 take 1 tablet by nilsa th once daily atorvastatin (LIPITOR) 20 mg tablet Indications: Hyperlipidemia, unspecified hyperlipidemia type Take 1 tablet by mouth once daily. 90 tablet 3 02/06/2023 Active Start: 08-31-2017 End: 12-21-2022 take 1 tablet by mouth once daily Atorvastatin 20 MG tablet Active 20 mg PO DAILY October 15, 2019 12:00am Comment on above: Take 20 mg by mouth once daily. Take 1 tablet by nilsa th once daily. benzonatate 100 mg oral capsule (13 sources) Non-narcotic Antitussive Start: 05-28-19 take 1 capsule by mouth three times daily as needed benzonatate (TESSALON PERLE) 100 mg capsule Indications: Acute cough , Acute non-recurrent frontal sinusitis Take 1-2 capsules by mouth three times a day as needed for cough. 60 capsule 1 05/28/2024 Active betamethasone 0.5 mg/ml / clotrimazole 10 mg/ml topical cream (8 sources) Azole Antifungal, Corticosteroid Start: 10-23-19 End: 11-22-19 clotrimazole-betame thasone (LOTRISONE) cream Indications: Balanitis Apply to affected area two times a day. for 1 month 45 g 10/22/2024 11/21/2024 Active Start: 11-08-2023 End: 11-22-2023 clotrimazole-betamethasone ( LOTRISONE) cream Indications: Balanitis APPLY TO AFFECTED AREA TWICE DAILY FOR 14 DAYS 15 g 1 11/08/2023 11/10/2023 Discontinued Start: 11-18-2022 End: 12-02-2022 clotrimazole-betamethasone ( LOTRISONE) cream Indications: Balanitis Apply to affected area twice daily for 14 days. 15 g 1 11/18/2022 12/02/2022 Active Comment on above: Apply to affected ar ea twice daily for 14 days. bisacodyl 5 mg delayed release oral tablet (20 sources) Stimulant Laxative take 1 tablet by mouth every twenty-four hours as needed bisacodyl (Dulcolax) 5 MG EC tablet Take 5 mg by mouth Daily as needed Active bisoprolol fumarate 5 mg oral tablet (20 sources) beta-Adrenergic Edgar Start: 06-16-19 End: 05-14-19 take 1 tablet by mouth once daily bisoprolol (ZEBETA) 5 mg tablet Take 1 tablet by mouth once daily. 90 tablet 2 05/14/2024 Active Comment on above: Take 1 tablet by nilsa th once daily. TAKE 1 TABLET BY NILSA TH DAILY Budesonide / formoterol (17 sources) Corticosteroid, beta2-Adrenergic Agonist Start: 09-21-19 take 2 puff(s) by inhalation twice daily budesonide-formote rol (SYMBICORT) 160-4.5 mcg/actuation inhaler Inhale 2 puffs as instructed two times a day. 30.6 g 3 09/20/2024 Active Calcium Carbonate-Vit D-Min (Caltrate 600+D Plus Minerals) 600-800 MG-UNIT chewable tablet (20 sources) Calcium Carbonate-Vit D-Min (Caltrate 600+D Plus Minerals) 600-800 MG-UNIT chewable tablet Chew. 0 Active calcium citrate 1500 mg / cholecalciferol 200 unt oral tablet (20 sources) Vitamin D Start: 08-26-19 21 take 1 tablet by mouth twice daily at mealtime calcium citrate-vitamin D3 (CITRACAL PLUS D) 315 mg-5 mcg (200 unit) tab Take 1 tablet by mouth twice daily with meals. With each meal. 08/25/2020 Active Start: 10-15-2019 Calcium Citrat e-Vitamin D3 1 EACH tablet Active 1 NMA PO DAILY October 15, 2019 12:00am Start: 10-15-2019 Calcium Citrat e-Vitamin D3 Active 1 EA PO DAILY October 14, 2019 11:00pm Comment on above: Take 1 tablet by nilsa twice daily with meals. With each meal. chlorhexidine gluconate 1.2 mg/ml mouthwash (4 sources) Start: 04-28-19 24 chlorhexidine (Peridex) 0.12 % solution ORALLY USE 15 ML AND RINSE MOUTH FOR 30 SECONDS THEN SPIT OUT. DO 2 TIMES EACH DAY. DO NOT SWALLOW 04/28/2023 Active cholecalciferol 0.05 mg oral tablet (20 sources) Vitamin D Start: 10-15-19 20 take 1 tablet by mouth once daily Cholecalciferol (Vitamin D3) 1,000 UNIT tablet Active 1000 U PO DAILY October 15, 2019 12:00am Start: 01-07-2010 End: 08-13-2021 take 1 tablet by mouth once daily at dinner cholecalciferol (VITAMIN D3) 50 mcg (2,000 unit) tablet Take 1 tablet by mouth daily with dinner. 08/13/2021 Active Comment on above: Take 1 tablet by nilsa daily with dinner. digoxin 0.25 mg oral tablet (20 sources) Cardiac Glycoside Start: 09-13-2024 take 1 tablet by mouth once daily Digoxin 250 mcg (0.25 mg) tablet Active 250 ug PO DAILY September 13, 2024 12:00am Start: 03-31-2022 digoxin (Lanox in) 250 MCG tab;et digoxin 250 mcg (0.25 mg) tablet 0 03/31/2022 Active Start: 04-19-2021 End: 01-07-2024 take 1 tablet by mouth once daily digoxin (LANOXIN) 250 mcg (0.25 mg) tablet take 1 tablet by mouth every day 90 tablet 2 01/07/2024 Active Comment on above: Take 1 tablet by nilsa th once daily. TAKE 1 TABLET BY NILSA TH DAILY docusate sodium 100 mg oral capsule (20 sources) Start: 014 take 1 capsule by mouth every twelve hours as needed docusate sodium 100 mg capsule Take 1 capsule by mouth twice daily as needed for Constipation. 60 capsule 2 12/05/2013 Active Comment on above: Take 1 capsule by mo [facility] twice daily as needed for Constipation. doxycycline hyclate 100 mg oral tablet (2 sources) Tetracycline-class Drug Start: End: take 1 tablet by mouth twice daily doxycycline (VIBRA-TABS) 100 mg tablet Indications: Acute cough , Acute non-recurrent frontal sinusitis Take 1 tablet by mouth two times a day for 7 days. 14 tablet 05/28/2024 06/04/2024 Active fludrocortisone acetate 0.1 mg oral tablet (20 sources) Start: End: take 1 tablet by mouth once daily fludrocortisone (FLORINEF) 0.1 mg tablet Take 1 tablet by mouth once daily. 90 tablet 2 05/14/2024 Active Comment on above: Take 1 tablet by nilsa th once daily. TAKE 1 TABLET BY NILSA TH DAILY furosemide 20 mg oral tablet (9 sources) Loop Diuretic Start: End: take 1 tablet by mouth once daily furosemide (Lasix) 20 MG tablet TAKE 1 TABLET BY MOUTH EVERY DAY FOR 7 DAYS 01/31/2023 Active Comment on above: Take 1 tablet by nilsa th once daily for 7 days. gabapentin 100 mg oral capsule (4 sources) Anti-epileptic Agent Start: take 1 capsule by mouth in the morning gabapentin (Neurontin) 100 MG capsule Take 100 mg by mouth in the morning and 100 mg before bedtime. 01/30/2023 Active ipratropium bromide 0.042 mg/actuat metered dose nasal spray (4 sources) Anticholinergic Start: take 2 spray(s) nasal route twice daily ipratropium (Atrovent) 0.06 % nasal spray SPRAY 2 SPRAYS INTO EACH NOSTRIL TWICE A DAY 04/15/2023 Active lamoTRIgine 100 mg oral tablet (20 sources) Mood Stabilizer, Anti-epileptic Agent Start: End: take 1 tablet by mouth once daily lamoTRIgine (LAMICTAL) 100 mg tablet Take 1 tablet by mouth once daily. 90 tablet 10/08/2024 04/06/2025 Active Start: 05-30-2023 End: 07-11-2023 take 1 tablet by mouth once daily, then take 2 tablets by mouth once daily, then take 3 tablets by mouth once daily lamoTRIgine (LAMICTAL) 25 mg tablet Take 1 tablet by mouth once daily for 14 days, THEN 2 tablets once daily for 14 days, THEN 3 tablets once daily for 14 days. 84 tablet 0 05/30/2023 06/26/2023 Discontinued Start: 12-30-2021 End: 05-12-2023 lamoTRIgine (LaMICtal) 100 M G tablet Start: 2021 End: 01-14-2022 take 1 tablet by mouth once daily, then take 2 tablets by mouth once daily lamoTRIgine (LAMICTAL) 25 mg tablet Take 1 tablet by mouth once daily for 14 days, THEN 2 tablets once daily. 74 tablet 1 2021 12/30/2021 Discontinued (Course of therapy completed) Comment on above: Take 1 tablet by nilsa th once daily for 14 days, THEN 2 tablets once daily. Take 1 tablet by nilsa th once daily. TAKE 1 TABLET BY NILSA TH DAILY TAKE 1 TABLET BY NILSA TH EVERY DAY Take 1 tablet by nilsa th once daily for 14 days, THEN 2 tablets once daily for 14 days, THEN 3 tablets once daily for 14 days. methocarbamol 500 mg oral tablet (20 sources) Muscle Relaxant Start: 3 End: take 1 tablet by mouth every eight hours as needed for muscle spasms methocarbamol (Robaxin) 500 MG tablet TAKE 1 TABLET BY MOUTH EVERY EIGHT HOURS NEEDED FOR MUSCLE SPASMS 10/28/2022 Active Comment on above: TAKE 1 TABLET BY [facility] EVERY EIGHT HOURS NEEDED FOR MUSCLE SPASMS Multiple Vitamin (multivitamin) capsule (16 sources) take 1 capsule by mouth once daily Multiple Vitamin (multivitamin) capsule Take 1 capsule by mouth daily. 0 Active Multivitamin 1 EACH tablet (2 sources) Start: 0 Multivitamin 1 EACH tablet Active 1 NMA PO DAILY October 15, 2019 12:00am Start: 10-15-2019 Multivitamin 1 EACH tablet Active 1 EA PO DAILY October 15, 2019 12:00am Multivitamin preparation (3 sources) Start: 10-15-2019 Multivitamin A ctive 1 EA PO DAILY October 15, 2019 7:21pm Start: 10-15-2019 Multivitamin A ctive 1 EA PO DAILY October 14, 2019 11:00pm Start: 10-15-2019 Multivitamin A ctive 1 EA PO DAILY October 15, 2019 12:00am omega-3 acid ethyl esters (alf) 1000 mg oral capsule (20 sources) omega-3 acid eth yl esters (Lovaza) 1 g capsule Take 1 g by mouth 2 times daily. 0 Active Rough And Ready-3 Fatty Acids 1,000 mg capsule (1 source) Start: 09-13-2024 take 1 capsule by mouth once daily Rough And Ready-3 Fatty Acids 1,000 mg capsule Active 1000 mg PO daily September 13, 2024 12:00am [id number] carla Oil [phone] rr-[id number] cap (20 sources) Start: 08-25-2020 take 1 capsule by mouth once daily [id number] carla Oil [phone] oo-rr-[id number]-mcg cap Take 600 mg by mouth once daily. 08/25/2020 Active Start: 08-25-2020 take 1 capsule by mo [facility] once daily [id number] Oil [phone] yv-[id number]-[id number]-mcg cap Take 600 mg by mouth once daily. 0 08/25/2020 Active Comment on above: Take 600 mg by mouth once daily. 24 hr oxybutynin chloride 5 mg extended release oral tablet (20 sources) Cholinergic Muscarinic Antagonist Start: 11-19-19 End: 05-13-19 take 1 tablet by mouth once daily oxybutynin XL (DITROPAN XL) 5 mg 24 hr tablet Indications: Urge incontinence of urine Take 1 tablet by mouth once daily. 90 tablet 3 05/13/2024 Active Comment on above: Take 1 tablet by nilsa th once daily. TAKE 1 TABLET BY NILSA TH EVERY DAY pantoprazole 40 mg delayed release oral tablet (20 sources) Proton Pump Inhibitor Start: 02-07-20 End: 05-13-19 take 1 tablet by mouth once daily before breakfast for obesity pantoprazole DR (PROTONIX) 40 mg tablet Indications: Gastric bypass status for obesity Take 1 tablet by mouth daily before breakfast. Take on empty stomach, 1/2 hr before meal. 90 tablet 3 05/13/2024 Active Start: 02-06-2023 take 1 tablet by nilsa th once daily before breakfast for obesity pantoprazole DR (PROTONIX) 40 mg tablet Indications: Gastric bypass status for obesity Take 1 tablet by mouth daily before breakfast. Take on empty stomach, 1/2 hr before meal. 90 tablet 3 02/06/2023 Active Start: 08-25-2020 End: 09-06-2021 take 2 tablets by mouth once daily pantoprazole DR (PROTONIX) 20 mg tablet Take 2 tablets by mouth once daily. 0 08/25/2020 09/06/2021 Discontinued (Duplicate Entry) Start: 07-21-2020 End: 12-21-2022 take 1 tablet by mouth once daily Pantoprazole 40 MG tablet Active 40 mg PO DAILY July 21, 2020 12:00am Comment on above: Take 2 tablets by mo [facility] once daily. Take 1 tablet by nilsa th daily before breakfast. Take on empty stomach, 1/2 hr before meal. perflutren lipid microspheres 1.3 mL in NaCl (PF) 0.9% 10 mL injection (DEFINITY) (11 sources) Start: 1 End: 2 perflutren lipid microspheres 1.3 mL in NaCl (PF) 0.9% 10 mL injection (DEFINITY) predniSONE 20 mg oral tablet (3 sources) Start: 5 End: 5 take 1 tablet by mouth once daily at mealtime predniSONE (DELTASONE) 20 mg tablet Indications: Acute cough , Acute non-recurrent frontal sinusitis Take 1 tablet by mouth once daily for 4 days. Take daily with food. 4 tablet 05/28/2024 06/01/2024 Active Start: 03-10-2022 End: 03-15-2022 take 1 tablet by mouth once daily predniSONE (DELTASONE) 20 mg tablet Indications: Plantar fascial fibromatosis of right foot Take 1 tablet by mouth once daily for 5 days. 5 tablet 0 03/10/2022 03/15/2022 Active Comment on above: Take 1 tablet by nilsa once daily for 5 days. QUEtiapine 25 mg oral tablet (20 sources) Atypical Antipsychotic Start: End: take 1 tablet by mouth once daily as needed for anxiety QUEtiapine (SEROQUEL) 25 mg tablet Take 1 tablet by mouth once daily as needed (anxiety and racing thoughts during the day). 90 tablet 11/19/2024 02/17/2025 Active Start: 05-28-2024 End: 01-06-2025 take 1 tablet by mouth once daily at bedtime QUEtiapine (SEROQUEL) 50 mg tablet Take 1 tablet by mouth daily at bedtime. 90 tablet 10/08/2024 01/06/2025 Active terbinafine 250 mg oral tablet (1 source) Allylamine Antifungal Start: 01-31-2023 End: 02-14-2023 take 1 tablet by mouth once daily terbinafine HCl (LAMISIL) 250 mg tablet Indications: Tinea pedis of right foot Take 1 tablet by mouth once daily for 14 days. 14 tablet 0 01/31/2023 02/14/2023 Active Comment on above: Take 1 tablet by nilsa once daily for 14 days. vitamin b6 100 mg oral tablet (20 sources) Start: 10-15-2019 take 1 tablet by mouth once daily Pyridoxine (Vitamin B6) 100 MG tablet Active 100 mg PO DAILY October 15, 2019 12:00am Start: 07-22-2014 take 2 tablets by mo [facility] twice daily pyridoxine (VITAMIN B-6) 100 mg tablet Take 2 tablets by mouth twice daily. 180 tablet 6 07/22/2014 Active Comment on above: Take 2 tablets by mo [facility] twice daily. Completed/Discontinued Medications Medication Drug Class(es) Dates Sig (Normalized) Sig (Original) acetaminophen 500 mg oral tablet (20 sources) Start: 07-01-2022 End: 07-01-2022 acetaminophen (Tylenol) tablet 1,000 mg acetaminophen (T ylenol) 500 MG tablet Take by mouth Active acetaminophen 325 mg / oxyCODONE hydrochloride 5 mg oral tablet (16 sources) Opioid Agonist Start: 09-15-2022 End: 05-12-2023 take 1 tablet by mouth every four to six hours as needed for pain, then take 4 tablets by mouth once daily as needed for pain oxyCODONE-acetaminophen (PERCOCET) 5-325 mg tablet TAKE 1 TABLET BY MOUTH EVERY FOUR TO SIX HOURS NEEDED FOR PAIN MAX 4 PER DAY. 09/15/2022 05/12/2023 Discontinued (Course of therapy completed) Comment on above: TAKE 1 TABLET BY NILSA TH EVERY FOUR TO SIX HOURS NEEDED FOR PAIN MAX 4 PER DAY. 24 hr alfuzosin hydrochloride 10 mg extended release oral tablet (12 sources) alpha-Adrenergic Edgar Start: 10-15-2019 End: 09-18-2024 take 1 tablet by mouth once daily Alfuzosin 10 MG tablet extended release 24 hr Discontinued 10 mg PO DAILY October 15, 2019 12:00am September 18, 2024 11:04am Comment on above: Take 1 tablet by nilsa th once daily. betamethasone 3 mg/ml / betamethasone acetate 3 mg/ml injectable suspension (4 sources) Corticosteroid Start: 05-04-2022 End: 05-04-2022 betamethasone acetate-betamethasone sodium phosphate (Celestone) injection 3 mg 12 hr buPROPion hydrochloride 150 mg extended release oral tablet (20 sources) Aminoketone Start: 08-02-2021 End: 2021 take 1 tablet by mouth twice daily buPROPion SR (WELLBUTRIN SR) 150 mg 12 hr tablet Indications: Major depressive disorder, recurrent episode, moderate (HCC) Take 1 tablet by mouth twice daily. 180 tablet 3 08/02/2021 2021 Discontinued (Lack of Efficacy) Start: 05-05-2021 End: 07-30-2021 take 1 tablet by mouth twice daily buPROPion SR (WELLBUTRIN SR) 150 mg 12 hr tablet Indications: Major depressive disorder, recurrent episode, moderate (HCC) Take 1 tablet by mouth twice daily. 180 tablet 3 05/05/2021 07/30/2021 Discontinued Start: 10-15-2019 End: 09-18-2024 take 1 tablet by mouth once daily Bupropion Hcl 200 MG tablet sustained-release 12 hr Discontinued 100 mg PO DAILY October 15, 2019 12:00am September 18, 2024 11:04am Comment on above: Take 1 tablet by nilsa th twice daily. busPIRone hydrochloride 15 mg oral tablet (20 sources) Start: End: take 1 tablet by mouth once daily in the morning busPIRone (BUSPAR) 15 mg tablet Indications: Generalized anxiety disorder Take 1 tablet by mouth every morning. 90 tablet 05/28/2024 08/06/2024 Discontinued Start: 07-22-2014 End: 01-06-2025 take 1 tablet by mouth twice daily busPIRone (BUSPAR) 15 mg tablet Indications: Generalized anxiety disorder Take 1 tablet by mouth two times a day. 180 tablet 10/08/2024 11/19/2024 Discontinued (Lack of Efficacy) Comment on above: Take 1 tablet by nilsa th twice daily. Take 1 tablet by nilsa th two times a day. calcium chloride 0.0014 meq/ml / potassium chloride 0.004 meq/ml / sodium chloride 0.103 meq/ml / sodium lactate 0.028 meq/ml injectable solution (4 sources) Start: 3 End: 3 lactated ringers infusion cetirizine hydrochloride 10 mg oral tablet (14 sources) Histamine-1 Receptor Antagonist Start: End: take 1 tablet by mouth once daily as needed Cetirizine 10 mg tablet Discontinued 10 mg PO daily as needed September 13, 2024 12:00am September 18, 2024 11:03am Start: 05-28-2024 End: 08-26-2024 take 1 tablet by mouth once daily cetirizine (ZYRTEC) 10 mg tablet Indications: Acute cough , Acute non-recurrent frontal sinusitis Take 1 tablet by mouth once daily. for nasal drainage and phlegm 30 tablet 2 05/28/2024 08/26/2024 Active ciclopirox 7.7 mg/ml topical cream (20 sources) Start: 11-10-2023 End: 10-22-2024 ciclopirox (LOPROX) 0.77 % c ream Indications: Balanitis Apply to affected area two times a day as needed. 90 g 1 05/13/2024 10/22/2024 Discontinued Start: 06-13-2022 End: 06-27-2022 ciclopirox (LOPROX) 0.77 % c ream Indications: Balanitis Apply to affected area twice daily for 14 days. 30 g 0 06/13/2022 06/27/2022 Active Comment on above: Apply to affected ar ea twice daily for 14 days. 1 ml diphenhydrAMINE hydrochloride 50 mg/ml cartridge (2 sources) Histamine-1 Receptor Antagonist Start: 07-01-2022 End: 07-01-2022 diphenhydrAMINE (BENADryl) injection 12.5 mg famotidine 20 mg oral tablet (2 sources) Histamine-2 Receptor Antagonist Start: 07-01-2022 End: 07-01-2022 famotidine (Pepcid) tablet 20 mg 1 ml HYDROmorphone hydrochloride 1 mg/ml cartridge (4 sources) Opioid Agonist Start: 07-01-2022 End: 07-01-2022 HYDROmorphone (Dilaudid) injection 0.5 mg Start: 07-01-2022 End: 07-01-2022 HYDROmorphone (Dilaudid) inj ection 0.25 mg labetalol (Normodyne,Trandate) injection 5 mg (2 sources) Start: 07-01-2022 End: 07-01-2022 labetalol (Normodyne,Trandate) injection 5 mg 10 ml lidocaine hydrochloride 10 mg/ml injection (20 sources) Antiarrhythmic, Amide Local Anesthetic Start: 05-04-2022 End: 05-04-2022 lidocaine (Xylocaine) 1 % injection 0.5 mL Start: 08-05-2019 End: 01-13-2022 lidocaine (PF) 10 mg/mL (1 % ) 4 mL injection (XYLOCAINE) 1 ml LORazepam 2 mg/ml injection (2 sources) Benzodiazepine Start: 07-01-2022 End: 07-01-2022 LORazepam (Ativan) injection 0.5 mg 2 ml metoclopramide 5 mg/ml prefilled syringe (2 sources) Dopamine-2 Receptor Antagonist Start: 07-01-2022 End: 07-01-2022 metoclopramide (Reglan) injection 5 mg 24 hr metoprolol succinate 25 mg extended release oral tablet (5 sources) beta-Adrenergic Edgar Start: 10-15-2019 End: 09-18-2024 take 1 tablet by mouth once daily Metoprolol Succinate 25 MG tablet extended release 24 hr Discontinued 25 mg PO DAILY October 15, 2019 12:00am September 18, 2024 11:03am midodrine hydrochloride 10 mg oral tablet (5 sources) alpha-Adrenergic Agonist Start: 10-15-2019 End: 09-18-2024 take 1 tablet by mouth twice daily Midodrine 10 MG tablet Discontinued 10 mg PO TWICE A DAY October 15, 2019 12:00am September 18, 2024 11:03am 2 ml ondansetron 2 mg/ml injection (2 sources) Serotonin-3 Receptor Antagonist Start: 07-01-2022 End: 07-01-2022 ondansetron (Zofran) injection 4 mg 12 hr orphenadrine citrate 100 mg extended release oral tablet (20 sources) Muscle Relaxant Start: 01-29-2022 End: 09-18-2024 take 1 tablet by mouth at bedtime as needed for muscle spasms Orphenadrine Citrate 100 mg tablet extended release Discontinued 100 mg PO AT BEDTIME NEEDED as needed for muscle spasm January 29, 2022 7:30am September 18, 2024 11:05am Comment on above: AT BEDTIME NEEDED sertraline 100 mg oral tablet (20 sources) Serotonin Reuptake Inhibitor Start: 08-06-2024 End: 02-17-2025 take 2 tablets by mouth once daily sertraline (ZOLOFT) 100 mg tablet Indications: Generalized anxiety disorder Take 2 tablets by mouth once daily. 180 tablet 10/08/2024 11/19/2024 Discontinued Start: 10-15-2019 End: 09-13-2024 take 1 tablet by mouth once daily Sertraline 100 MG tablet Discontinued 100 mg PO DAILY October 15, 2019 12:00am September 13, 2024 11:34am Comment on above: Take 1 tablet by nilsa once daily. 5 ml sodium chloride 9 mg/ml injection (20 sources) Start: 07-01-2022 End: 07-01-2022 sodium chloride 0.9 % infusion Start: 07-01-2022 End: 07-01-2022 take 5-40 mL intravenously every twelve hours sodium chloride 0.9% (NS) flush 5-40 mL Start: 08-25-2020 End: 11-24-2021 sodium chloride 0.9 % (flush ) 10 mL (BD POSIFLUSH) 1 ml triamcinolone acetonide 40 mg/ml injection (17 sources) Corticosteroid Start: 08-05-2019 End: 01-13-2022 triamcinolone acetonide 40 mg injection (KENALOG 40) Problems Active Problems Problem Classification Problem Date Documented Da te Episodic/Chronic Adjustment disorders (1 source) Adjustment disorder with mixed anxiety and depressed mood; Translations: [Adjustment disorder with mixed anxiety and depressed mood] Onset: 10-25-2024 Chronic Allergic reactions (2 sources) Allergic reaction; Translations: [Allergy, unspecified, initial encounter] 11-05-2022 Episodic Anxiety disorders (20 sources) Generalized anxiety disorder; Translations: [Generalized anxiety disorder] Onset: 07-01-2009 07-01-2009 Chronic Asthma (7 sources) Cough variant asthma; Translations: [Cough variant asthma] Onset: 08-15-2022 09-17-2024 Chronic Cardiac dysrhythmias (20 sources) Atrial fibrillation with rapid ventricular response; Translations: [Unspecified atrial fibrillation] Onset: 11-03-2009 Resolved: 11-05-2018 Chronic Chronic obstructive pulmonary disease and bronchiectasis (20 sources) Mild chronic obstructive pulmonary disease; Translations: [Chronic obstructive pulmonary disease, unspecified] Onset: 09-27-2019 Chronic Congestive heart failure; nonhypertensive (20 sources) Chronic combined systolic and diastolic heart failure; Translations: [Chronic combined systolic (congestive) and diastolic (congestive) heart failure] Onset: 08-15-2022 Chronic Disorders of lipid metabolism (20 sources) Hyperlipidemia; Translations: [Hyperlipidemia, unspecified] Onset: 03-08-2010 08-25-2020 Chronic E Codes: Adverse effects of medical drugs (1 source) Idiosyncratic drug effect; Translations: [Adverse effect of unspecified drugs, medicaments and biological substances, subsequent encounter] 12-09-2022 Episodic E Codes: Fall (3 sources) Fall; Translations: [Unspecified fall, initial encounter] Onset: 10-09-2024 10-09-2024 Episodic E Codes: Fall (1 source) Fall 10-09-2024 Genitourinary symptoms and ill-defined conditions (20 sources) Urinary incontinence; Translations: [Unspecified urinary incontinence] Onset: 11-20-2020 04-28-2022 Chronic Hyperplasia of prostate (20 sources) Benign prostatic hypertrophy with outflow obstruction; Translations: [Benign prostatic hyperplasia with lower urinary tract symptoms] Onset: 03-08-2010 03-06-2018 Chronic Inflammatory conditions of male genital organs (20 sources) Balanitis; Translations: [Balanitis] Onset: 11-10-2023 Chronic Miscellaneous mental health disorders (20 sources) Eating disorder; Translations: [Eating disorder, unspecified] Onset: 07-01-2009 Resolved: 05-12-2023 07-01-2009 Chronic Mood disorders (20 sources) Recurrent major depressive episodes, moderate ; Translations: [Major depressive disorder, recurrent, moderate] Onset: 07-01-2009 Resolved: 05-05-2021 07-01-2009 Chronic Mycoses (1 source) Tinea pedis; Translations: [Tinea pedis] 01-31-2023 Episodic Nutritional deficiencies (20 sources) Vitamin D deficiency; Translations: [Vitamin D deficiency, unspecified] Onset: 08-02-2012 08-02-2012 Chronic Osteoarthritis (20 sources) Arthritis of left wrist; Translations: [Primary osteoarthritis, left wrist] Onset: 04-28-2022 Chronic Other aftercare (20 sources) Long-term current use of drug therapy; Translations: [Encounter for therapeutic drug level monitoring] Onset: 01-30-2015 Resolved: 05-05-2021 05-05-2021 Episodic Other aftercare (1 source) skilled nursing (current) use of anticoagulants; Translations: [skilled nursing (current) use of anticoagulants] Onset: 10-09-2024 Episodic Other and unspecified benign neoplasm (1 source) Hemangioma; Translations: [Hemangioma unspecified site] Episodic Other bone disease and musculoskeletal deformities (2 sources) Pain in lower limb; Translations: [Other specified disorders of bone, lower leg] 12-09-2022 Episodic Other circulatory disease (5 sources) H/O: hypertension; Translations: [Personal history of other diseases of the circulatory system] 07-21-2020 Episodic Other circulatory disease (8 sources) H/O: atrial fibrillation; Translations: [Personal history of other diseases of the circulatory system] 07-21-2020 Episodic Other circulatory disease (1 source) Bleeds profusely; Translations: [Hemorrhage, not elsewhere classified] 07-22-2024 Episodic Other connective tissue disease (20 sources) History of total replacement of left hip joint; Translations: [Presence of left artificial hip joint] Onset: 11-20-2017 04-28-2022 Chronic Other connective tissue disease (20 sources) History of right shoulder arthroplasty; Translations: [Presence of right artificial shoulder joint] Onset: 02-26-2020 04-28-2022 Chronic Other connective tissue disease (1 source) Recurrent falls ; Translations: [Repeated falls] Episodic Other connective tissue disease (1 source) 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; Translations: [Plantar fascial fibromatosis] Episodic Other connective tissue disease (3 sources) Pain of left hand; Translations: [Pain in left hand] Episodic Other connective tissue disease (2 sources) Bursitis of right hip; Translations: [Other bursitis of hip, right hip] 05-12-2023 Episodic Other connective tissue disease (4 sources) Biceps tendinitis; Translations: [Bicipital tendinitis, right shoulder] Onset: 05-27-2024 05-27-2024 Episodic Other connective tissue disease (4 sources) Impingement syndrome of right shoulder region; Translations: [Impingement syndrome of right shoulder] Onset: 05-27-2024 05-27-2024 Episodic Other diseases of veins and lymphatics (1 source) Scrotal varices; Translations: [Scrotal varices] Onset: 07-25-2024 Episodic Other ear and sense organ disorders (1 source) Impacted cerumen in left ear; Translations: [Impacted cerumen, left ear] Episodic Other ear and sense organ disorders (2 sources) Otalgia, left ear; Translations: [Otalgia, unspecified] Onset: 11-11-2024 11-11-2024 Episodic Other inflammatory condition of skin (1 source) Pruritus, unspecified; Translations: [Unspecified pruritic disorder] 12-09-2022 Episodic Other injuries and conditions due to external causes (2 sources) Injury of head; Translations: [Unspecified injury of head, initial encounter] 10-09-2024 Episodic Other injuries and conditions due to external causes (1 source) Unspecified injury of lower back, subsequent encounter; Translations: [Injury of back, subsequent encounter] Onset: 12-25-2024 Episodic Other injuries and conditions due to external causes (1 source) Unspecified injury of head, initial encounter; Translations: [Injury of head, initial encounter] Onset: 10-09-2024 Episodic Other lower respiratory disease (5 sources) Dyspnea; Translations: [Dyspnea, unspecified] 07-22-2020 Episodic Other lower respiratory disease (1 source) Dyspnea on exertion; Translations: [Other forms of dyspnea] Episodic Other lower respiratory disease (2 sources) Cough; Translations: [Acute cough] 05-28-2024 Episodic Other lower respiratory disease (2 sources) Cough; Translations: [Cough, unspecified type] 09-17-2024 Episodic Other male genital disorders (20 sources) Erectile dysfunction co-occurrent and due to arterial insufficiency; Translations: [Erectile dysfunction due to arterial insufficiency] Onset: 06-03-2016 04-28-2022 Chronic Other male genital disorders (2 sources) Hemorrhage of scrotum; Translations: [Vascular disorders of male genital organs] 07-22-2024 Chronic Other nervous system disorders (20 sources) Bilateral carpal tunnel syndrome; Translations: [Carpal tunnel syndrome, bilateral upper limbs] Onset: 09-15-2020 04-28-2022 Chronic Other nervous system disorders (1 source) Paresthesia of hand ; Translations: [Anesthesia of skin] 11-11-2024 Episodic Other nervous system disorders (1 source) Anesthesia of skin; Translations: [Numbness and tingling in right hand] Onset: 11-11-2024 Episodic Other nervous system disorders (1 source) Paresthesia of skin; Translations: [Numbness and tingling in right hand] Onset: 11-11-2024 Episodic Other non-traumatic joint disorders (1 source) Pain in right shoulder; Translations: [Acute pain of both shoulders] Onset: 10-09-2024 Episodic Other non-traumatic joint disorders (1 source) Pain in left shoulder; Translations: [Acute pain of both shoulders] Onset: 10-09-2024 Episodic Other nutritional; endocrine; and metabolic disorders (20 sources) Obese class II; Translations: [Obesity, unspecified] Onset: 02-05-2018 02-05-2018 Chronic Other nutritional; endocrine; and metabolic disorders (20 sources) Obese class I; Translations: [Obesity, unspecified] Onset: 09-18-2023 09-18-2023 Chronic Other nutritional; endocrine; and metabolic disorders (5 sources) History of hypercholesterolemia ; Translations: [Personal history of other endocrine, nutritional and metabolic disease] 07-21-2020 Episodic Other screening for suspected conditions (not mental disorders or infectious disease) (1 source) Encounter for screening for other disorder; Translations: [Screening for genitourinary condition] Onset: 10-22-2024 Episodic Other upper respiratory disease (20 sources) Vasomotor rhinitis; Translations: [Vasomotor rhinitis] Onset: 02-15-2012 04-28-2022 Chronic Other upper respiratory infections (1 source) Acute frontal sinusitis; Translations: [Acute frontal sinusitis, unspecified] 05-28-2024 Episodic Pulmonary heart disease (3 sources) Chronic pulmonary embolism; Translations: [Chronic pulmonary embolism] Chronic Residual codes; unclassified (20 sources) Obstructive sleep apnea syndrome; Translations: [Obstructive sleep apnea (adult) (pediatric)] Onset: 06-14-2010 04-05-2021 Chronic Residual codes; unclassified (1 source) Obstructive sleep apnea (adult) (pediatric); Translations: [LEXIE (obstructive sleep apnea)] Onset: 11-09-2022 Chronic Residual codes; unclassified (1 source) Bilateral lower limb edema; Translations: [Localized edema] 01-31-2023 Episodic Spondylosis; intervertebral disc disorders; other back problems (10 sources) Cervical spondylosis; Translations: [Spondylosis without myelopathy or radiculopathy, cervical region] Onset: 05-15-2023 05-15-2023 Chronic Spondylosis; intervertebral disc disorders; other back problems (16 sources) Neck pain; Translations: [Cervicalgia] Onset: 05-15-2023 05-12-2023 Episodic Sprains and strains (4 sources) Sprain of shoulder rotator cuff; Translations: [Sprain of right rotator cuff capsule, initial encounter] Onset: 05-27-2024 05-27-2024 Episodic Unclassified (1 source) APPOINTMENT CANCELLED 09-23-2024 Unclassified (1 source) Acute midline low back pain without sciatica; Translations: [Acute midline low back pain without sciatica] Onset: 10-09-2024 Unclassified (1 source) Cough, unspecified type; Translations: [Cough, unspecified type] Onset: 09-17-2024 Unclassified (1 source) Acute cough; Translations: [Acute cough] Onset: 05-28-2024 Past or Other Problems Problem Classification Problem Date Documented Da te Episodic/Chronic Abdominal pain (20 sources) Left lower quadrant pain; Translations: [Left lower quadrant pain] Onset: 9 Resolved: 2 05-05-2021 Episodic Administrative/social admission (5 sources) Stress; Translations: [Other specified problems related to psychosocial circumstances] Onset: 5 05-28-2024 Episodic Bacterial infection; unspecified site (20 sources) Infection by methicillin sensitive Staphylococcus aureus; Translations: [Methicillin susceptible Staphylococcus aureus infection, unspecified site] Onset: 3 Resolved: 2 05-05-2021 Episodic Biliary tract disease (20 sources) Common bile duct calculus; Translations: [Calculus of bile duct without cholangitis or cholecystitis without obstruction] Onset: 4 Resolved: 2 05-05-2021 Episodic Blindness and vision defects (20 sources) Diplopia; Translations: [Diplopia] Onset: 4 Resolved: 2 05-05-2021 Episodic Calculus of urinary tract (20 sources) Kidney stone; Translations: [Calculus of kidney] Onset: 2 Resolved: 3 05-11-2012 Episodic Cataract (20 sources) Nuclear senile cataract; Translations: [Age-related nuclear cataract, unspecified eye] Onset: 3 Resolved: 2 06-27-2014 Chronic Chronic ulcer of skin (20 sources) Disorder of perianal skin; Translations: [Non-pressure chronic ulcer of skin of other sites with unspecified severity] Onset: 3 Resolved: 2 05-05-2021 Chronic Complications of surgical procedures or medical care (20 sources) Post-surgical malabsorption; Translations: [Postsurgical malabsorption, not elsewhere classified] Onset: 1 Resolved: 2 05-05-2021 Chronic Complications of surgical procedures or medical care (20 sources) Postgastric surgery syndrome; Translations: [Postgastric surgery syndromes] Onset: 3 08-30-2012 Episodic Conditions associated with dizziness or vertigo (20 sources) Orthostatic hypotension; Translations: [Dizziness and giddiness] Onset: 3 Resolved: 9 11-05-2018 Episodic Coronary atherosclerosis and other heart disease (20 sources) Post-infarction pericarditis; 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] Onset: 3 Resolved: 2 05-05-2021 Chronic Deficiency and other anemia (20 sources) Iron deficiency anemia; Translations: [Iron deficiency anemia, unspecified] Onset: 3 Resolved: 3 08-02-2012 Episodic Diabetes mellitus without complication (20 sources) Impaired fasting glycemia; Translations: [Impaired fasting glucose] Onset: 2 05-05-2021 Episodic Fluid and electrolyte disorders (20 sources) Hypokalemia; Translations: [Hypokalemia] Onset: 1 Resolved: 2 05-05-2021 Episodic Gastroduodenal ulcer (except hemorrhage) (20 sources) Gastrointestinal ulcer; Translations: [Gastrojejunal ulcer, unspecified as acute or chronic, without hemorrhage or perforation] Onset: 3 Resolved: 3 04-28-2022 Chronic Gastrointestinal hemorrhage (20 sources) Upper gastrointestinal bleeding; Translations: [Gastrointestinal hemorrhage, unspecified] Onset: 3 Resolved: 2 05-05-2021 Episodic Genitourinary symptoms and ill-defined conditions (20 sources) Microscopic hematuria; Translations: [Other microscopic hematuria] Onset: 3 Resolved: 3 03-06-2018 Episodic Intestinal obstruction without hernia (20 sources) Intestinal obstruction; Translations: [Unspecified intestinal obstruction, unspecified as to partial versus complete obstruction] Onset: 1 04-28-2022 Episodic Nonspecific chest pain (20 sources) Chest pain; Translations: [Chest pain, unspecified] Onset: 9 Resolved: 2 05-05-2021 Episodic Other acquired deformities (5 sources) Spondylolisthesis; Translations: [Spondylolisthesis, cervical region] Onset: 4 05-15-2023 Episodic Other aftercare (20 sources) Long-term current use of anticoagulant; Translations: [skilled nursing (current) use of anticoagulants] Onset: 1 Resolved: 2 04-05-2021 Episodic Other aftercare (20 sources) Patient encounter status; Translations: [Other halfway (current) drug therapy] Onset: 0 Resolved: 2 Episodic Other aftercare (20 sources) Admission statuses; Translations: [Encounter for other specified aftercare] Onset: 1 Resolved: 2 05-05-2021 Episodic Other aftercare (20 sources) H/O: anticoagulant therapy; Translations: [emt intermediate (current) use of anticoagulants] Onset: 5 Resolved: 2 05-05-2021 Episodic Other aftercare (1 source) Other emt intermediate (current) drug therapy; Translations: [Encounter for long-term (current) use of medications] Onset: 5 Episodic Other circulatory disease (1 source) Orthostatic hypotension; Translations: [Orthostatic hypotension] Onset: 9 Episodic Other connective tissue disease (20 sources) History of repair of hip joint; Translations: [Presence of unspecified artificial hip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 shoulders TECHNIQUE: AP, Grashey, lateral scapular Y-view COMPARISON: 05/16/2019. RESULT: No fracture, dislocation or destructive changes. Mild and glenohumeral joint degenerative changes. IMPRESSION: No acute fracture or dislocation of the left shoulder. Pathology Laboratory Aide: EVELYNE Transcribe Date/Time: Oct 09 2024 7:19P Dictated by : MARYJO NICE MD This examination was interpreted and the report reviewed and electronically signed by: MARYJO NICE MD on Oct 09 2024 7:21PM EST [id number] N Normal [facility] XR SHLDR >/=3V AP/KEISHA AP/OTH R RTon 10-09-2024 XR SHLDR >/=3V AP/KEISHA AP/OTHR RT * * *Final Report* * * DATE OF EXAM: Oct 09 2024 6:39PM WOX 5253 - XR SHLDR >/=3V AP/KEISHA AP/OTHR RT / PROCEDURE REASON: multiple diagnoses * * * * Physician Interpretation * * * * RIGHT SHOULDER X-RAY SERIES HISTORY: Acute pain of both shoulders Acute pain of both shoulders TECHNIQUE: AP, Grashey, lateral scapular Y-view COMPARISON: 11/08/2017 RESULT: No fracture, dislocation or destructive changes. Mild glenohumeral joint degenerative changes. Anchors in the humeral head. IMPRESSION: No acute fracture or dislocation of the right shoulder. Pathology Laboratory Aide: [facility] Transcribe Date/Time: Oct 09 2024 7:18P Dictated by : MARYJO NICE MD This examination was interpreted and the report reviewed and electronically signed by: MARYJO NICE MD on Oct 09 2024 7:19PM EST [id number] N Normal [facility] XR Shoulder - left 3 Viewson 10-09-2024 IMPRESSION: No acute fracture or dislocation of the left shoulder. Pathology Laboratory Aide: [facility] Transcribe Date/Time: Oct 09 2024 7:19P Dictated by : MARYJO NICE MD This examination was interpreted and the report reviewed and electronically signed by: MARYJO NICE MD on Oct 09 2024 7:21PM [facility] DIVISION OF RADIOLOGY * * *Final Report* * * DATE OF EXAM: Oct 09 2024 6:39PM WOX 5252 - XR SHLDR >/=3V AP/KEISHA AP/OTHR LT / PROCEDURE REASON: multiple diagnoses * * * * Physician Interpretation * * * * LEFT SHOULDER X-RAY SERIES HISTORY: Acute pain of both shoulders Acute pain of both shoulders TECHNIQUE: AP, Grashey, lateral scapular Y-view COMPARISON: 05/16/2019. RESULT: No fracture, dislocation or destructive changes. Mild and glenohumeral joint degenerative changes. DIVISION OF RADIOLOGY Provider, [facility] - 10/09/2024 * * *Final Report* * * DATE OF EXAM: Oct 09 2024 6:39PM WOX 5252 - XR SHLDR >/=3V AP/KEISHA AP/OTHR LT / PROCEDURE REASON: multiple diagnoses * * * * Physician Interpretation * * * * LEFT SHOULDER X-RAY SERIES HISTORY: Acute pain of both shoulders Acute pain of both shoulders TECHNIQUE: AP, Grashey, lateral scapular Y-view COMPARISON: 05/16/2019. RESULT: No fracture, dislocation or destructive changes. Mild and glenohumeral joint degenerative changes. IMPRESSION IMPRESSION: No acute fracture or dislocation of the left shoulder. Pathology Laboratory Aide: [facility] Transcribe Date/Time: Oct 09 2024 7:19P Dictated by : MARYJO NICE MD This examination was interpreted and the report reviewed and electronically signed by: MARYJO NICE MD on Oct 09 2024 7:21PM EST [facility] XR Shoulder - right 3 Viewso n 10-09-2024 IMPRESSION: No acute fracture or dislocation of the right shoulder. Pathology Laboratory Aide: [facility] Transcribe Date/Time: Oct 09 2024 7:18P Dictated by : MARYJO NICE MD This examination was interpreted and the report reviewed and electronically signed by: MARYJO NICE MD on Oct 09 2024 7:19PM [facility] DIVISION OF RADIOLOGY * * *Final Report* * * DATE OF EXAM: Oct 09 2024 6:39PM WOX 5253 - XR SHLDR >/=3V AP/KEISHA AP/OTHR RT / PROCEDURE REASON: multiple diagnoses * * * * Physician Interpretation * * * * RIGHT SHOULDER X-RAY SERIES HISTORY: Acute pain of both shoulders Acute pain of both shoulders TECHNIQUE: AP, Grashey, lateral scapular Y-view COMPARISON: 11/08/2017 RESULT: No fracture, dislocation or destructive changes. Mild glenohumeral joint degenerative changes. Anchors in the humeral head. DIVISION OF RADIOLOGY Provider, [facility] - 10/09/2024 * * *Final Report* * * DATE OF EXAM: Oct 09 2024 6:39PM WOX 5253 - XR SHLDR >/=3V AP/KEISHA AP/OTHR RT / PROCEDURE REASON: multiple diagnoses * * * * Physician Interpretation * * * * RIGHT SHOULDER X-RAY SERIES HISTORY: Acute pain of both shoulders Acute pain of both shoulders TECHNIQUE: AP, Grashey, lateral scapular Y-view COMPARISON: 11/08/2017 RESULT: No fracture, dislocation or destructive changes. Mild glenohumeral joint degenerative changes. Anchors in the humeral head. IMPRESSION IMPRESSION: No acute fracture or dislocation of the right shoulder. Pathology Laboratory Aide: EVELYNE Transcribe Date/Time: Oct 09 2024 7:18P Dictated by : MARYJO NICE MD This examination was interpreted and the report reviewed and electronically signed by: MARYJO NICE MD on Oct 09 2024 7:19PM [facility] CNOVon 10-08-2024 CNOV Office Visit (PSWSTR ) ORION DUMONT ([id number]) 1950 M Date Time Provider Department 10/08/24 11:00 AM QUINCY ALONZO PSWSTR During your visit today, we recorded the following information about you: Pulse Blood pressure Weight 89/minute 118/75 104.3 kg Quincy Alonzo APRN.CNP 10/10/2024 3:28 PM Signed FOLLOW UP - PSYCHIATRIC PROGRESS NOTE Visit Type:In person Recording using ambient Springbot software for draft documentation of the visit was discussed with the patient/authorized sales and merchandising representative; all questions welcomed and answered. Patient/authorized sales and merchandising representative agreed to proceed CC: Outpatient follow-up and safety monitoring of previously prescribed psychiatric medication, psychotherapy or other treatment HPI: Patient is a 73-year-old male with a history of anxiety and sleep disturbances, presenting for follow-up. Patient reports significant stress related to caregiving responsibilities for his sister, who has been in a mcfp since 09/06. He visits her almost daily, which has exacerbated his back pain. He uses Tylenol and lidocaine patches for pain management but still experiences severe discomfort, particularly in his tailbone, which worsens when lying in bed. He describes the pain as soreness in the whole general area and notes that it is more intense at night. He expresses anxiety about his sister's health and the possibility of needing to find a new place to live if her condition worsens. He describes himself as a procrastinator and has not made any plans for this potential situation. He mentions a desire to go before she does, indicating significant stress and worry about the future. He reports improvement in managing scam messages, having deleted three recently. He is currently taking quetiapine, which helps him sleep but causes grogginess if he doesn't get a full 8 hours of rest. He struggles with maintaining a consistent sleep schedule, often getting only 3-5 hours of sleep per night. He attributes this to his long history of working third shifts and difficulty reprogramming his sleep patterns. He is also taking Zoloft, which was recently increased to two tablets, and reports no issues with this adjustment. Additionally, he is taking BuSpar twice daily for anxiety management. He has an upcoming therapy appointment on 10/[address] Alonso, a psychologist, and expresses interest in weekly sessions. 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 He is managing medication costs by ordering from [employer]. Risks and benefits of the medication, including any black box warnings, were discussed with the patient. Interval Progress: Slightly improved PATIENT DATA: Generalized Anxiety Disorder Scale (LANA-7) 08/05/2024 09/22/2024 10/07/2024 LANA - 7 SCORES Score 8 10 8 (0-4) minimal anxiety, (5-9) mild anxiety, (10-14) moderate anxiety, (15-21) severe anxiety Patient Health Questionnaire (PHQ-9) 08/05/2024 09/22/2024 10/07/2024 PHQ-9 Score 12 9 12 (0-4) minimal depression, (5-9) mild depression, (10-14) moderate depression, (15-19) moderately severe depression, (20-27) severe depression PROMIS Global Health 05/17/2022 05/17/2023 09/22/2024 PROMIS Global Health - (T-Scores - the mean of general population = 50. 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 Currently chest pain free; However, there is a high chance of recurrence since treatment has been on hold. Giving him steroid might actually put him at more risk of re bleeding. NSAID'S n (more content not included)... Normal [facility] CNPNon 09-23-2024 CNPN Telephone (PSWSTR) ORION DUMONT ([id number]) 1950 M Date Time Provider Department 09/23/24 QUINCY ALONZO PSWSTR During your visit today, we recorded the following information about you: Ariadna [place]os 09/23/2024 11:11 AM Signed Patient called to reschedule failed VV appointment with psychiatrist. Patient requested in office appointment and was scheduled for provider's first available on 11/12/24. Patient has been added to wait list. Quincy Alonzo, TEXTILE BROKER.[facility] 09/23/2024 4:38 PM Signed Discussed patient's concerns with VV visit today with Katya Salmon. She has been able to assist the patient in scheduling a sooner visit with the provider on October 08. Allergies As of Date: 09/23/2024 Noted Allergy Reaction RIVAROXABAN 03/02/2013 2 - Rash SULFA (SULFONAMIDE ANTIBIOTICS) 03/18/2008 5 - Intolerance 4 - Hives Comments: Pt says that he has had silvadene cream in the past after cardioversions without side effects ADHESIVE TAPE (ROSINS) 10/08/2009 2 - Rash NIACIN 05/12/2023 14 - Other: See Comments Comments: Itching, head lam WOOL 11/25/2009 9 - Itching WOOL 03/09/2010 9 - Itching DICLOFENAC SODIUM 02/01/2016 2 - Rash Comments: Fixed drug eruption Date Reviewed: 09/17/2024 Reviewed by: Josselin Maldonado MD - Fully Assessed Reason for Visit: Appointment [[id number]] Prescriptions as of 09/23/2024 - budesonide-formoterol (SYMBICORT) 160-4.5 mcg/actuation inhaler Inhale 2 puffs as instructed two times a day. - albuterol HFA (PROVENTIL HFA) 90 mcg/actuation inhaler Inhale 1-2 puffs as instructed four times a day as needed for wheezing/shortness of breath. - QUEtiapine (SEROQUEL) 50 mg tablet Take 1 tablet by mouth daily at bedtime. - busPIRone (BUSPAR) 15 mg tablet Take 1 tablet by mouth two times a day. - lamoTRIgine (LAMICTAL) 100 mg tablet Take 1 tablet by mouth once daily. - sertraline (ZOLOFT) 100 mg tablet Take 2 tablets by mouth once daily. - atorvastatin (LIPITOR) 20 mg tablet Take 1 tablet by mouth once daily. - bisoprolol (ZEBETA) 5 mg tablet Take 1 tablet by mouth once daily. - fludrocortisone (FLORINEF) 0.1 mg tablet Take 1 tablet by mouth once daily. - ciclopirox (LOPROX) 0.77 % cream Apply to affected area two times a day as needed. - pantoprazole DR (PROTONIX) 40 mg tablet Take 1 tablet by mouth daily before breakfast. Take on empty stomach, 1/2 hr before meal. - oxybutynin XL (DITROPAN XL) 5 mg 24 hr tablet Take 1 tablet by mouth once daily. - digoxin (LANOXIN) 250 mcg (0.25 mg) tablet take 1 tablet by mouth every day - cholecalciferol (VITAMIN D3) 50 mcg (2,000 unit) tablet Take 1 tablet by mouth daily with dinner. - calcium citrate-vitamin D3 (CITRACAL PLUS D) 315 mg-5 mcg (200 unit) tab Take 1 tablet by mouth twice daily with meals. With each meal. - Ivash4-YyaC8-L52-E-FA -Fish Oil [id number] um-ws-dyo-mcg cap Take 600 mg by mouth once daily. - pyridoxine (VITAMIN B-6) 100 mg tablet Take 2 tablets by mouth twice daily. - docusate sodium 100 mg capsule Take 1 capsule by mouth twice daily as needed for Constipation. Meds Comments as of 04/11/2012: Problem List As Of Date 09/23/2024 Noted Resolved Other specified disease of sebaceous glands [L7*06/11/2008 05/05/2021 Corns and callosities [L84] 06/11/2008 05/05/2021 Contusion of foot [S90.30XA] 06/11/2008 05/05/2021 Eating disorder, unspecified [F50.9] 07/01/2009 05/12/2023 Generalized Anxiety Disorder [F41.1] 07/01/2009 Major Depressive Disorder, Recurrent Episode, M*07/01/2009 Morbid obesity (HCC) [E66.01] 10/14/2009 02/20/2014 Encounter for dietary counseling and surveillan*10/14/2009 05/05/2021 DVT (deep venous thrombosis) (HCC) [I82.409] 01/12/2010 05/05/2021 Atrial fibrillation [I48.91] 11/03/2009 11/05/2018 Pulmonary embolism (HCC) [I26.99] 03/01/2010 05/05/2021 Retinal detachment with retinal defect, unspeci*06/14/2010 05/05/2021 Anticoagulation monitoring, INR range 2-3 [Z79.*06/14/2010 09/28/2012 LEXIE (obstructive sleep apnea) [G47.33] 06/14/2010 Hypomagnesemia [E83.42] 06/15/2010 05/05/2021 Hypokalemia [E87.6] 06/16/2010 05/05/2021 Other and unspecified postsurgical nonabsorptio*08/26/19 11 05/05/2021 Wound check, abscess [Z51.89] 08/25/2010 05/05/2021 Varicose veins of both legs with edema [I83.893]2010 Anticoagulation management encounter [Z51.81, Z*2010 05/05/2021 emt intermediate (current) use of anticoagulants [Z79.*03/18/2011 05/05/2021 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 Normal [facility] Cardiology Visit Reporton Cardiology Visit Report [facility] [address] [place] [address] OFFICE VISIT Date of Service: 09/18/24 MR#: [id number] Acct: [id number] Name: ORION DUMONT Rep #: [id number] : 1950 Provider: Dr. Lyudmila decker MD Age/Sex: 73/M Location: [facility] [place] Status: Signed HPI HPI History of Present Illness Details: Patient 73-year-old white male that comes in today for new patient visit. Patient is part of the [facility] system. 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 Patient carries a history of chronic persistent atrial fibrillation has been longstanding. He is status post remote surgical maze procedure by Dr. Arevalo in May 2012 at the [facility] with a left atrial appendage ligation at the same setting. He also had radiofrequency ablation although this has failed despite 4-5 direct-current cardioversions. He has now been in chronic atrial fibrillation for quite some time. He is tolerating his Eliquis and has rate control with Lanoxin and bisoprolol. ECG in the office today shows atrial fibrillation with a controlled rate response of 67 bpm with nonspecific QRS widening. Patient reports that he is getting around doing about what ever he wishes in his home environment. He is status post gastric bypass surgery and lost from 460 pounds down to 230 pounds. He did have a remote history of syncope but now reports only rare lightheaded spells with no syncope or near syncope. He has had no falls. Patient does have a history of reactive airway disease with asthma treated through the [facility]. He also has obstructive sleep apnea which she does not treat. He has a history of DVTs and pulmonary emboli last PE was October 2019. He remains on Eliquis lifelong per his previous physicians. The patient is paying about $47 a month for his Eliquis at this point in time. Last echocardiogram May 2023 he was in atrial fibrillation with an EF of 55-60%. He had normal right ventricular systolic function the left atrium was severely dilated the right atrium was also dilated there were no significant valvular heart disease pulmonary artery pressures were normal there was no evidence of intra-atrial shunting. Intake Vital Signs 07/22/24 16:07 09/18/24 11:00 Height 6 ft 0.83 in 6 ft 1 in Weight: 231 lb BMI 30.4 BP 96/71 Blood Pressure Location Lt brachial Position Sitting Respiration 18 Pulse 68 Pulse Source Monitor Pulse Oximetry (%) 95 Oxygen Delivery Method room air Intake Visit Reasons: Atrial fibrillation Alcohol And Drug Counselor Required: No Is patient in pain?: No Allergies diclofenac Allergy (Verified 09/18/24 11:00) Rash rivaroxaban (From Xarelto) Allergy (Verified 09/18/24 11:00) Rash Sulfa (Sulfonamide Antibiotics) Allergy (Verified 09/18/24 11:00) Rash niacin Adverse Reaction (Mild, Verified 09/18/24 11:00) Rash Medications ???Medication ???Instructions ???Recorded ???Confirmed ???Type albuterol sulfate 90 mcg/actuation 90 mcg IH PRN PRN Wheezing 10/1409/18/24 History breath activated powder inhaler,sensor atorvastatin 20 mg tablet 20 mg PO DAILY 10/15/19 09/18/24 H istory calcium 315 mg (as 1 ea PO DAILY 10/15/19 09/18/24 Hi story citrate)-vitamin D3 6.25 mcg (250 unit) tablet cholecalciferol (vitamin D3) 25 1,000 unit PO DAILY 10/15/1909/18 History mcg (1,000 unit) tablet multivitamin 1 ea PO DAILY 10/15/19 09/18/24 Hi story pyridoxine (vitamin B6) 100 mg 100 mg PO DAILY 10/15/19 09/18/24 History tablet pantoprazole 40 mg tablet,delayed 40 mg PO DAILY 07/21/20 09/18/24 History release bisoprolol fumarate 5 mg tablet 5 mg PO DAILY 09/13/24 09/18/24 Hi story buspirone 15 mg tablet 15 mg PO BID 09/13/24 09/18/24 His tory digoxin 250 mcg (0.25 mg) tablet 250 mcg PO DAILY 09/13/24 09/18/24 History docusate sodium 100 mg capsule 100 mg PO BID PRN 09/13/24 5 History fludrocortisone 0.1 mg tablet 0.1 mg PO DAILY 09/13/24 09/18/24 History lamotrigine 100 mg tablet 100 mg PO DAILY 09/13/24 09/18/24 History omega-3 fatty acids 1,000 mg 1,000 mg PO QDAY 09/13/24 09/18/24 History capsule oxybutynin chloride 5 mg 5 mg PO DAILY 09/13/24 09/18/24 Hi story tablet,extended release 24 hr quetiapine 50 mg tablet 50 mg PO QHS 09/13/24 09/18/24 His tory sertraline 100 mg tablet 200 mg PO DAILY 09/13/24 09/18/24 History apixaban 5 mg tablet 5 mg PO BID #180 tabs 09/18/2403/04 Rx Ejection fraction %: 57 Have you fallen in the past year?: No [facility] Medical History Retinal detachment Syncope Postsurgical dumping syndrome Guillaume syndrome CO (more content not included)... Normal [facility] CNOVon 09-17-2024 CNOV Office Visit (PULMWS ) ORION DUMONT ([id number]) 1950 M Date Time Provider Department 09/17/24 12:45 PM JOSSELIN MALDONADO PULMWS During your visit today, we recorded the following information about you: Pulse Respiration Blood pressure Weight 76/minute 16/minute 132/68 105.7 kg Height 1.865 m Josselin Maldonado MD 09/17/2024 2:43 PM Signed Respiratory [place] Note Patient name: Orion Dumont PCP: Florian Gonzalez MD CC: Cough HPI: Orion Dmuont 73 year old male non smoker with PMH significant for AF, HTN, HLD, anxiety, VTE on AC, h/o IVC filter, obesity s/p gastric bypass complicated by non-healing wound, LEXIE not using CPAP, h/o COPD last seen in pulmonary clinic in 2019 for pre-op clearance for colonoscopy. Currently using albuterol as needed. He states he was doing well until May of this past year when he may have had a upper respiratory infection. He had severe coughing with coughing jags, mucus production that was clear to yellow in color, occasional wheezing but no significant shortness of breath. Used albuterol but no significant improvement. He was treated with several courses of steroids and azithromycin which improved his symptoms but his cough never completely resolved. His cough is currently nonproductive. He has not noted any significant triggers. Cough does not interfere with his sleep. Pulmonary function test today shows small airways obstruction which improves with bronchodilator and normal FEV1 with marked improvement postbronchodilator. No GERD. DATA: PFT 2020: PFT today: Normal [facility] / Diagnostic Studies: DATE OF EXAM: Aug 29 2024 5:25PM WOX 5291 - XR CHEST 2V FRONTAL/LAT / CLINICAL HISTORY: Stage 1 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 ([facility]) MQ: [id number] EXAM DATE/TIME: 08/29/2024 5:25 PM COMPARISON: 05/28/2024 RESULT: Lines, tubes, and devices: Atrial appendage device again noted Lungs and pleura: No consolidation. No lung mass. No pleural effusion. No pneumothorax. Cardiomediastinal silhouette: Normal cardiomediastinal silhouette. Bones and soft tissues: Unremarkable. IMPRESSION: No acute radiographic abnormality. 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 Currently chest pain free; However, there is a high chance of recurrence since treatment has been on hold. Giving him steroid might actually put him at more risk of re bleeding. NSAID'S not an option for now. Plan: Consider Colchicine. If patient is to be restarted on AC, Colchicine has DVT (deep venous thrombosis) (HCC) 01/12/2010 S/P IVC filter, occurred post-op, on anticoagulation (for a fib) Eating disorder, unspecified 07/01/2009 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 Essential hypertension, benign Fatty liver 11/03/2009 by us Gall stones, common bile duct 12/07/2013 Generalized anxiety disorder 07/01/2009 GI bleed 06/29/2012 Hip joint replacement by other means 09/21/2012 Hyperlipidemia 08/25/2020 Impaired fasting glucose 05/05/2021 Impotence of organic origin Iron deficiency anemia 08/02/2012 emt intermediate current use of anticoagulant 02/09/2015 Major depressive disorder, recurrent episode, moderate (HCC) 07/01/2009 Morbid obesity (HCC) 04/21/2009 stated BMI 51.1 Ht: 75 Wt: 410 lbs MSSA (methicillin susceptible Staphylococcus aureus) infection 07/03/2012 Hx: MSSA infection of serosal fluids collection in L chest wall. S/P I/D on 06/19. On IV oxacillin till and then dc'ed on 06/23 with a 10 day course of Dicloxacillin. However; pt did not take Abx after 06/28 Plan: Dicloxacillin 500 mg QID for 10 days Nephrolithiasis 2009 Ca Ox OA (osteoarthritis) Orthostatic (more content not included)... Normal [facility] 09-17-2024 [place] Telephone (PULMWS) ORION DUMONT ([id number]) 1950 M Date Time Provider Department 09/17/24 JOSSELIN MALDONADO During your visit today, we recorded the following information about you: Makenna Vigil LPN 09/17/2024 4:29 PM Signed Patient called into office stating that he spoke with insurance and bero is 460 for 90 day, Symbicort is 209.36 for 90 days and fluticasone is 41.81 for 90 days. Please and contact with recommendation. Patient states you may mychart, or call and leave . BRIAN Galindo Kathleen, LPN 09/19/2024 11:07 AM Signed See Elo7hart message Aleyda Harris LPN Allergies As of Date: 09/17/2024 Noted Allergy Reaction RIVAROXABAN 03/02/2013 2 - Rash SULFA (SULFONAMIDE ANTIBIOTICS) 03/18/2008 5 - Intolerance 4 - Hives Comments: Pt says that he has had silvadene cream in the past after cardioversions without side effects ADHESIVE TAPE (ROSINS) 10/08/2009 2 - Rash NIACIN 05/12/2023 14 - Other: See Comments Comments: Itching, head lam WOOL 11/25/2009 9 - Itching WOOL 03/09/2010 9 - Itching DICLOFENAC SODIUM 02/01/2016 2 - Rash Comments: Fixed drug eruption Date Reviewed: 09/17/2024 Reviewed by: Josselin Maldonado MD - Fully Assessed Prescriptions as of 09/19/2024 - albuterol HFA (PROVENTIL HFA) 90 mcg/actuation inhaler Inhale 1-2 puffs as instructed four times a day as needed for wheezing/shortness of breath. - QUEtiapine (SEROQUEL) 50 mg tablet Take 1 tablet by mouth daily at bedtime. - busPIRone (BUSPAR) 15 mg tablet Take 1 tablet by mouth two times a day. - lamoTRIgine (LAMICTAL) 100 mg tablet Take 1 tablet by mouth once daily. - sertraline (ZOLOFT) 100 mg tablet Take 2 tablets by mouth once daily. - atorvastatin (LIPITOR) 20 mg tablet Take 1 tablet by mouth once daily. - bisoprolol (ZEBETA) 5 mg tablet Take 1 tablet by mouth once daily. - fludrocortisone (FLORINEF) 0.1 mg tablet Take 1 tablet by mouth once daily. - ciclopirox (LOPROX) 0.77 % cream Apply to affected area two times a day as needed. - pantoprazole DR (PROTONIX) 40 mg tablet Take 1 tablet by mouth daily before breakfast. Take on empty stomach, 1/2 hr before meal. - oxybutynin XL (DITROPAN XL) 5 mg 24 hr tablet Take 1 tablet by mouth once daily. - digoxin (LANOXIN) 250 mcg (0.25 mg) tablet take 1 tablet by mouth every day - cholecalciferol (VITAMIN D3) 50 mcg (2,000 unit) tablet Take 1 tablet by mouth daily with dinner. - calcium citrate-vitamin D3 (CITRACAL PLUS D) 315 mg-5 mcg (200 unit) tab Take 1 tablet by mouth twice daily with meals. With each meal. - Ivzuo5-SshJ5-B93-E-FA -Fish Oil [id number] iy-zv-hys-mcg cap Take 600 mg by mouth once daily. - pyridoxine (VITAMIN B-6) 100 mg tablet Take 2 tablets by mouth twice daily. - docusate sodium 100 mg capsule Take 1 capsule by mouth twice daily as needed for Constipation. Meds Comments as of 04/11/2012: Problem List As Of Date 09/17/2024 Noted Resolved Other specified disease of sebaceous glands [L7*06/11/2008 05/05/2021 Corns and callosities [L84] 06/11/2008 05/05/2021 Contusion of foot [S90.30XA] 06/11/2008 05/05/2021 Eating disorder, unspecified [F50.9] 07/01/2009 05/12/2023 Generalized Anxiety Disorder [F41.1] 07/01/2009 Major Depressive Disorder, Recurrent Episode, M*07/01/2009 Morbid obesity (HCC) [E66.01] 10/14/2009 02/20/2014 Encounter for dietary counseling and surveillan*10/14/2009 05/05/2021 DVT (deep venous thrombosis) ([facility]) [I82.409] 01/12/2010 05/05/2021 Atrial fibrillation [I48.91] 11/03/2009 11/05/2018 Pulmonary embolism ([facility]) [I26.99] 03/01/2010 05/05/2021 Retinal detachment with retinal defect, unspeci*06/14/2010 05/05/2021 Anticoagulation monitoring, INR range 2-3 [Z79.*06/14/2010 09/28/2012 LEXIE (obstructive sleep apnea) [G47.33] 06/14/2010 Hypomagnesemia [E83.42] 06/15/2010 05/05/2021 Hypokalemia [E87.6] 06/16/2010 05/05/2021 Other and unspecified postsurgical nonabsorptio*08/26/19 11 05/05/2021 Wound check, abscess [Z51.89] 08/25/2010 05/05/2021 Varicose veins of both legs with edema [I83.893]2010 Anticoagulation management encounter [Z51.81, Z*2010 05/05/2021 skilled nursing (current) use of anticoagulants [Z79.*03/18/2011 05/05/2021 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/25/2011 05/05/2021 Rhinitis [J31.0] 10/05/2011 05/09/2022 Nephrolithiasis [N20.0] 05/11/2012 05/09/2022 Hyperoxaluria (HCC) [R82.992] 05/11/2012 12/07/2015 Ulcer of perianal area (HCC) [L98.499] 07/03/2012 05/05/2021 Dieulafoy lesion (hemorrhagic) of intestine [K6*07/03/2012 05/05/2021 Jejunal ulcer [K28.9] 07/03/2012 07/03/2012 Upper GI bleed [K92.2] 07/03/2012 05/05/2021 MSSA (methicillin susceptible Staphylococcus au*07/03/2012 05/05/2021 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 No contraindications or sensitivities were noted. Meds taken: No inhaled respiratory medications taken before testing. 4 puffs Albuterol (360 mcg) delivered by MDI via holding chamber. HR pre = 70/min, HR post = 74/min. Current ATS/ERS acceptability and repeatability standards for spirometry met. Start of test and EOFE criteria met. Current ATS/ERS acceptability and repeatability standards for DLCO met with 2 acceptable maneuvers. IMPRESSION: Spirometry reveals a reduced FEV1/FVC with normal FEV1 and FVC values. This could reflect a normal presentation or could indicate mild obstruction. Clinical correlation recommended. Positive bronchodilator response. The diffusion capacity (uncorrected for hemoglobin) is normal. Electronically Signed On 09-17-2024 15:12:52 EDT by Josselin Maldonado MD ID: [id number] Name: ORION DUMONT Race: White Ht: 73.43 in Wt: 233.00 lbs Age: 73 Gender: Male : 1950 Dx: COPD_ Smoking Hx: Non-smoker Doctor: JOSSELIN MALDONADO Test Date: 09/17/2024 Site: Tech: Vale Lainez PRE-BRONCH POST-BRONCH Tierra LLN Pred ULN %Pred ZScore Tierra %Pred %Chg ZScore SPIROMETRY FVC 4.60 3.39 4.56 5.76 100 0.04 4.76 104 3 0.27 FEV1 2.86 2.47 3.39 4.25 84 -0.96 3.33 98 13 -0.10 FEV1/FVC 0.62 0.62 0.76 0.86 82 -1.66 0.70 92 12 -0.75 FEFMax 5.68 6.42 8.97 11.52 63 -2.12 6.87 76 21 -1.35 FEF50 1.92 2.46 4.59 6.71 41 -2.06 2.98 65 55 -1.24 FIF50 4.18 5.87 40 FEF50/FIF50 0.46 90-100 0.51 10 FIVC 4.70 4.59 -2 KZI86-83 1.44 1.09 2.56 4.66 56 -1.18 2.42 94 68 -0.13 ExpiredTime 9.03 8.76 -3 TimeToFEFMax 0.12 0.14 14 RIGO 0.12 0.14 13 VolExtrap% 3 3 9 LUNG DIFFUSION DLCOunc 23.83 20.68 28.20 37.16 84 -0.92 DLCOStdPB 23.35 20.68 28.20 37.16 82 -1.02 VA 6.91 5.79 7.20 8.71 96 -0.32 Kco 3.38 2.91 3.94 5.06 85 -0.87 Comments: Medications and Allergies were reviewed for possible drug interactions per policy. No contraindications or sensitivities were noted. Meds taken: No inhaled respiratory medications taken before testing. 4 puffs Albuterol (360 mcg) delivered by MDI via holding chamber. HR pre = 70/min, HR post = 74/min. Current ATS/ERS acceptability and repeatability standards for spirometry met. Start of test and EOFE criteria met. Current ATS/ERS acceptability and repeatability standards for DLCO met with 2 acceptable maneuvers. 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 No contraindications or sensitivities were noted. Meds taken: No inhaled respiratory medications taken before testing. 4 puffs Albuterol (360 mcg) delivered by MDI via holding chamber. HR pre = 70/min, HR post = 74/min. Current ATS/ERS acceptability and repeatability standards for spirometry met. Start of test and EOFE criteria met. Current ATS/ERS acceptability and repeatability standards for DLCO met with 2 acceptable maneuvers. IMPRESSION: Spirometry reveals a reduced FEV1/FVC with normal FEV1 and FVC values. This could reflect a normal presentation or could indicate mild obstruction. Clinical correlation recommended. Positive bronchodilator response. The diffusion capacity (uncorrected for hemoglobin) is normal. Electronically Signed On 09-17-2024 15:12:52 EDT by Josselin Maldonado MD ID: [id number] Name: ORION DUMONT Race: White Ht: 73.43 in Wt: 233.00 lbs Age: 73 Gender: Male : 1950 Dx: COPD_ Smoking Hx: Non-smoker Doctor: JOSSELIN MALDONADO Test Date: 09/17/2024 Site: [facility] Tech: Vale Lainez PRE-BRONCH POST-BRONCH Tierra LLN Pred ULN %Pred ZScore Tierra %Pred %Chg ZScore SPIROMETRY FVC 4.60 3.39 4.56 5.76 100 0.04 4.76 104 3 0.27 FEV1 2.86 2.47 3.39 4.25 84 -0.96 3.33 98 13 -0.10 FEV1/FVC 0.62 0.62 0.76 0.86 82 -1.66 0.70 92 12 -0.75 FEFMax 5.68 6.42 8.97 11.52 63 -2.12 6.87 76 21 -1.35 FEF50 1.92 2.46 4.59 6.71 41 -2.06 2.98 65 55 -1.24 FIF50 4.18 5.87 40 FEF50/FIF50 0.46 90-100 0.51 10 FIVC 4.70 4.59 -2 MLQ20-45 1.44 1.09 2.56 4.66 56 -1.18 2.42 94 68 -0.13 ExpiredTime 9.03 8.76 -3 TimeToFEFMax 0.12 0.14 14 RIGO 0.12 0.14 13 VolExtrap% 3 3 9 LUNG DIFFUSION DLCOunc 23.83 20.68 28.20 37.16 84 -0.92 DLCOStdPB 23.35 20.68 28.20 37.16 82 -1.02 VA 6.91 5.79 7.20 8.71 96 -0.32 Kco 3.38 2.91 3.94 5.06 85 -0.87 Comments: Medications and Allergies were reviewed for possible drug interactions per policy. No contraindications or sensitivities were noted. Meds taken: No inhaled respiratory medications taken before testing. 4 puffs Albuterol (360 mcg) delivered by MDI via holding chamber. HR pre = 70/min, HR post = 74/min. Current ATS/ERS acceptability and repeatability standards for spirometry met. Start of test and EOFE criteria met. Current ATS/ERS acceptability and repeatability standards for DLCO met with 2 acceptable maneuvers. PULMONARY FUNCTION LAB [facility] Vicky LainezseSWATI mcgee 09/17/2024 1:14 PM RESPIRATORY THERAPY ORAL EXHALED NITRIC OXIDE SERVICE DATE: 09/17/2024 SERVICE TIME: 1:14 PM Oral Exhaled Nitric Oxide measurement: 12.0 (ppb) Normal: Adult <25 ppb, pediatric (<12 years) <20 ppb High Normal / Increased: Adult 25-50 ppb, pediatric (<12 years) 20-35 ppb Moderately raised exhaled Nitric Oxide may indicate underlying inflammation, but note that: Cold and influenza can raise exhaled Nitric Oxide and some patients have higher baseline exhaled Nitric Oxide levels than others. High: Adult >50 ppb, pediatric (<12 years) >35 ppb Indicative of ongoing eosinophilic inflammation. Symptomatic patient likely to respond to steroids. Possible causes (if already on steroids): Poor compliance, recent allergen exposure, steroid dose inadequate, and steroid resistance. Note that not all patients with high exhaled nitric oxide levels display symptoms. Oral Exhaled Nitric Oxide measurement (Previous Encounters) Test Date Oral Exhaled Nitric Oxide (ppb) 09/17/2024 12.0 NAME: WILLY Fitzgerald PATIENT NAME: Orion Dumont DATE: September 17, 2024 TIME: 1:14 PM [facility] SPIROMETRY WITH DILATOR IF O BSTRUCTEDon 09-17-2024 DLCO (ml/min/mmHg) 23.83 ml/min/mmHg [facility] DLCO LLN (ml/min/mmHg) 20.68 ml/min/mmHg [facility] DLCO PREDICTED (ml/min/mmHg) 28.2 ml/min/mmHg [facility] DLCO ULN (ml/min/mmHg) 37.16 ml/min/mmHg [facility] DLCO/VA (ml/min/mmHg/L) 0.03 ml/m in/mmHg/ L [facility] DLCO/VA PREDICTED (ml/min/mmHg/L) 0.04 ml/min/mmHg/ L [facility] DLCO/VAcor (ml/min/mmHg/L) 0.03 ml/min/mmHg/ L [facility] DLCOcor (ml/min/mmHg) 23.35 ml/min/mmHg Cl [facility] DLCOcor PREDICTED (ml/min/mmHg) 28.2 ml/min/mmHg [facility] ERV PREDICTED (L) 1.52 L/S [facility] FEF25% POST (L/S) 5.94 L/S [facility] FEF25% PRE (L/S) 4.36 L/S [facility] ZYN82-50% LLN (L/S) 1.09 L/S [facility] SFM31-33% POST (L/S) 2.42 L/S [facility] AXH47-40% PRE (L/S) 1.44 L/S [facility] SXM87-87% PREDICTED (L/S) 2.56 L/S [facility] FEF75% LLN (L/S) 0.25 L/S [facility] FEF75% POST (L/S) 0.96 L/[facility] FEF75% PRE (L/S0 0.48 L/S [facility] FEF75% PREDICTED (L/S) 0.7 L/S [facility] FEF75% ULN (L/S) 1.83 L/S [facility] FET POST (S) 8.76 S [facility] FET PRE (S) 9.03 S [facility] FEV1 LLN (L) 2.47 L [facility] FEV1 PRE (L) 2.86 L [facility] FEV1 PREDICTED (L) 3.39 L [facility] FEV1 ULN (L) 4.25 L [facility] FEV1/FVC LLN (%) 62 % [facility] FEV1/FVC POST (%) 70 % [facility] FEV1/FVC PRE (%) 62 % [facility] FEV1/FVC PREDICTED (%) 76 % [facility] FEV1_POST (L) 3.33 L [facility] FVC LLN (L) 3.39 L [facility] FVC POST (L) 4.76 L [facility] FVC PRE (L) 4.6 L [facility] FVC PREDICTED (L) 4.56 L [facility] FVC ULN (L) 5.76 L [facility] IC PREDICTED (L) 3.04 L/S [facility] PEF LLN (L/S) 6.42 L/S [facility] PEF POST (L/S) 6.87 L/S [facility] PEF PRE (L/S) 5.68 L/S [facility] PEF ULN (L/S) 11.52 L/S [facility] SVC LLN (L) 3.39 L/S [facility] SVC PREDICTED (L) 4.56 L/S [facility] SVC ULN (L) 5.76 L/S [facility] VA (L) 6.91 L [facility] VA PREDICTED (L) 7.2 L [facility] SPIROMETRY WITH DILATOR IF OBSTRUCTED [facility] [address] [place] 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 No contraindications or sensitivities were noted. Meds taken: No inhaled respiratory medications taken before testing. 4 puffs Albuterol (360 mcg) delivered by MDI via holding chamber. HR pre = 70/min, HR post = 74/min. Current ATS/ERS acceptability and repeatability standards for spirometry met. Start of test and EOFE criteria met. Current ATS/ERS acceptability and repeatability standards for DLCO met with 2 acceptable maneuvers. IMPRESSION: Spirometry reveals a reduced FEV1/FVC with normal FEV1 and FVC values. This could reflect a normal presentation or could indicate mild obstruction. Clinical correlation recommended. Positive bronchodilator response. The diffusion capacity (uncorrected for hemoglobin) is normal. Electronically Signed On 09-17-2024 15:12:52 EDT by Josselin Maldonado MD ID: [id number] Name: ORION DUMONT Race: White Ht: 73.43 in Wt: 233.00 lbs Age: 73 Gender: Male : 1950 Dx: COPD_ Smoking Hx: Non-smoker Doctor: JOSSELIN MALDONADO Test Date: 09/17/2024 Site: Tech: Vale Lainez PRE-BRONCH POST-BRONCH Tierra LLN Pred ULN %Pred ZScore Tierra %Pred %Chg ZScore SPIROMETRY FVC 4.60 3.39 4.56 5.76 100 0.04 4.76 104 3 0.27 FEV1 2.86 2.47 3.39 4.25 84 -0.96 3.33 98 13 -0.10 FEV1/FVC 0.62 0.62 0.76 0.86 82 -1.66 0.70 92 12 -0.75 FEFMax 5.68 6.42 8.97 11.52 63 -2.12 6.87 76 21 -1.35 FEF50 1.92 2.46 4.59 6.71 41 -2.06 2.98 65 55 -1.24 FIF50 4.18 5.87 40 FEF50/FIF50 0.46 90-100 0.51 10 FIVC 4.70 4.59 -2 IGL98-40 1.44 1.09 2.56 4.66 56 -1.18 2.42 94 68 -0.13 ExpiredTime 9.03 8.76 -3 TimeToFEFMax 0.12 0.14 14 RIGO 0.12 0.14 13 VolExtrap% 3 3 9 LUNG DIFFUSION DLCOunc 23.83 20.68 28.20 37.16 84 -0.92 DLCOStdPB 23.35 20.68 28.20 37.16 82 -1.02 VA 6.91 5.79 7.20 8.71 96 -0.32 Kco 3.38 2.91 3.94 5.06 85 -0.87 Comments: Medications and Allergies were reviewed for possible drug interactions per policy. No contraindications or sensitivities were noted. Meds taken: No inhaled respiratory medications taken before testing. 4 puffs Albuterol (360 mcg) delivered by MDI via holding chamber. HR pre = 70/min, HR post = 74/min. Current ATS/ERS acceptability and repeatability standards for spirometry met. Start of test and EOFE criteria met. Current ATS/ERS acceptability and repeatability standards for DLCO met with 2 acceptable maneuvers. FVC_PRE (L) : 4.60 L FVC_POST (L) : 4.76 L FVC_PRED (L) : 4.56 L FVC_LLN (L) : 3.39 L FVC_ULN (L) : 5.76 L FEV1_PRE (L) : 2.86 L FEV1_POST (L) : 3.33 L FEV1_PRED (L) : 3.39 L FEV1_LLN (L) : 2.47 L FEV1_ULN (L) : 4.25 L FEV1/FVC_PRE (%) : 62 % FEV1/FVC_POST (%) : 70 % FEV1/FVC_PRED (%) : 76 % FEV1/FVC_LLN (%) : 62 % DDI84_HJR (L/S) : 4.36 L/S OYI21_KUQU (L/S) : 5.94 L/S BAP37_YCV (L/S) : 0.48 L/S HTE70_UTRI (L/S) : 0.96 L/S FPY83_KCNC (L/S) : 0.70 L/S XOH89_FEQ (L/S) : 0.25 L/S VZT81_UZB (L/S) : 1.83 L/S HKF29-46%_PRE (L/S) : 1.44 L/S ZEF84-75%_POST (L/S) : 2.42 L/S YUY61-30%_PRED (L/S) : 2.56 L/S AUV02-34%_LLN (L/S) : 1.09 L/S PEF_PRE (L/S) : 5.68 L/S PEF_POST (L/S) : 6.87 L/S PEFMAX_LLN (L/S) : 6.42 L/S PEFMAX_ULN (L/S) : 11.52 L/S SVC_PRED (L) : 4.56 L/S SVC_LLN (L) : 3.39 L/S SVC_ULN (L/S) : 5.76 L/S IC_PRED (L) : 3.04 L/S ERV_PREDICTED (L) : 1.52 L/S DLCO (ML/MIN/MMHG) : 23.83 ml/min/mmHg DLCO_PRED (ML/MIN/MMHG) : 28.20 ml/min/mmHg DLCO_LLN(ML/MIN/MMHG) : 20.68 ml/min/mmHg DLCO_ULN (ML/MIN/MMHG) : 37.16 ml/min/mmHg FET_PRE (S) : 9.03 S FET_POST (S) : 8.76 S VA (L) : 6.91 L VA_PRD (L) : 7.20 L DLCO/VA (ML/MIN/MMHG/L) : 0.03 ml/min/mmHg/L DLCO_VA_PRED (L) : 0.04 ml/min/mmHg/L DLCOCOR (ML/MIN/MMHG) : 23.35 ml/min/mmHg DLCOCOR_PRED (ML/MIN/MMHG) : 28.20 ml/min/mmHg DLCO/VACOR (ML/MIN/MMHG/L) : 0.03 ml/min/mmHg/L Normal [facility] TIMORION Bianca ([id number]) 1950 M Date Time Provider Department 09/14/24 DEON GLEZ VTRIAG During your visit today, we recorded the following information about you: Deon Glez MD 09/14/2024 2:57 PM Signed Lab results UA back. I called the patient to inform him of the results. UA not indicative of UTI. Urine culture not back yet. No need for antibiotics at this point. Recommend follow-up with PCP next week for further eval. Allergies As of Date: 09/14/2024 Noted Allergy Reaction RIVAROXABAN 03/02/2013 2 - Rash SULFA (SULFONAMIDE ANTIBIOTICS) 03/18/2008 5 - Intolerance 4 - Hives Comments: Pt says that he has had silvadene cream in the past after cardioversions without side effects ADHESIVE TAPE (ROSINS) 10/08/2009 2 - Rash NIACIN 05/12/2023 14 - Other: See Comments Comments: Itching, head lam WOOL 11/25/2009 9 - Itching WOOL 03/09/2010 9 - Itching DICLOFENAC SODIUM 02/01/2016 2 - Rash Comments: Fixed drug eruption Date Reviewed: 08/29/2024 Reviewed by: Teri Cummings LPN - Fully Assessed Prescriptions as of 09/14/2024 - albuterol HFA (PROVENTIL HFA) 90 mcg/actuation inhaler Inhale 1-2 puffs as instructed four times a day as needed for wheezing/shortness of breath. - QUEtiapine (SEROQUEL) 50 mg tablet Take 1 tablet by mouth daily at bedtime. - busPIRone (BUSPAR) 15 mg tablet Take 1 tablet by mouth two times a day. - lamoTRIgine (LAMICTAL) 100 mg tablet Take 1 tablet by mouth once daily. - sertraline (ZOLOFT) 100 mg tablet Take 2 tablets by mouth once daily. - atorvastatin (LIPITOR) 20 mg tablet Take 1 tablet by mouth once daily. - bisoprolol (ZEBETA) 5 mg tablet Take 1 tablet by mouth once daily. - fludrocortisone (FLORINEF) 0.1 mg tablet Take 1 tablet by mouth once daily. - ciclopirox (LOPROX) 0.77 % cream Apply to affected area two times a day as needed. - pantoprazole DR (PROTONIX) 40 mg tablet Take 1 tablet by mouth daily before breakfast. Take on empty stomach, 1/2 hr before meal. - oxybutynin XL (DITROPAN XL) 5 mg 24 hr tablet Take 1 tablet by mouth once daily. - digoxin (LANOXIN) 250 mcg (0.25 mg) tablet take 1 tablet by mouth every day - cholecalciferol (VITAMIN D3) 50 mcg (2,000 unit) tablet Take 1 tablet by mouth daily with dinner. - calcium citrate-vitamin D3 (CITRACAL PLUS D) 315 mg-5 mcg (200 unit) tab Take 1 tablet by mouth twice daily with meals. With each meal. - Vzcot1-MloU1-R96-E-FA -Fish Oil [id number] jr-py-ppd-mcg cap Take 600 mg by mouth once daily. - pyridoxine (VITAMIN B-6) 100 mg tablet Take 2 tablets by mouth twice daily. - docusate sodium 100 mg capsule Take 1 capsule by mouth twice daily as needed for Constipation. Meds Comments as of 04/11/2012: Problem List As Of Date 09/14/2024 Noted Resolved Other specified disease of sebaceous glands [L7*06/11/2008 05/05/2021 Corns and callosities [L84] 06/11/2008 05/05/2021 Contusion of foot [S90.30XA] 06/11/2008 05/05/2021 Eating disorder, unspecified [F50.9] 07/01/2009 05/12/2023 Generalized Anxiety Disorder [F41.1] 07/01/2009 Major Depressive Disorder, Recurrent Episode, M*07/01/2009 Morbid obesity (HCC) [E66.01] 10/14/2009 02/20/2014 Encounter for dietary counseling and surveillan*10/14/2009 05/05/2021 DVT (deep venous thrombosis) (HCC) [I82.409] 01/12/2010 05/05/2021 Atrial fibrillation [I48.91] 11/03/2009 11/05/2018 Pulmonary embolism (HCC) [I26.99] 03/01/2010 05/05/2021 Retinal detachment with retinal defect, unspeci*06/14/2010 05/05/2021 Anticoagulation monitoring, INR range 2-3 [Z79.*06/14/2010 09/28/2012 LEXIE (obstructive sleep apnea) [G47.33] 06/14/2010 Hypomagnesemia [E83.42] 06/15/2010 05/05/2021 Hypokalemia [E87.6] 06/16/2010 05/05/2021 Other and unspecified postsurgical nonabsorptio*08/26/19 11 05/05/2021 Wound check, abscess [Z51.89] 08/25/2010 05/05/2021 Varicose veins of both legs with edema [I83.893]2010 Anticoagulation management encounter [Z51.81, Z*2010 05/05/2021 skilled nursing (current) use of anticoagulants [Z79.*03/18/2011 05/05/2021 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/25/2011 05/05/2021 Rhinitis [J31.0] 10/05/2011 05/09/2022 Nephrolithiasis [N20.0] 05/11/2012 05/09/2022 Hyperoxaluria (HCC) [R82.992] 05/11/2012 12/07/2015 Ulcer of perianal area (HCC) [L98.499] 07/03/2012 05/05/2021 Dieulafoy lesion (hemorrhagic) of intestine [K6*07/03/2012 05/05/2021 Jejunal ulcer [K28.9] 07/03/2012 07/03/2012 Upper GI bleed [K92.2] 07/03/2012 05/05/2021 MSSA (methicillin susceptible Staphylococcus au*07/03/2012 05/05/2021 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 Normal [facility] Bacteria Ur Culton Bacteria identified Cx Nom (U) ORGANISM ID: 1 <10,000 CFU/ml Streptococcus agalactiae (group b streptococcus) Insignificant colony count. No further workup. Normal [facility] Comment on above: Performed By: #### 6 30-4 ####[facility] [id number] [address] Urinalysis complete panel (U )on 09-13-2024 Bacteria LM.HPF (Urine sed) [#/Area] Negative Negative /HPF [facility] Bilirubin Ql (U) Negative Negative [facility] Clarity (Unsp spec) Clear Clear [facility] Color (U) Yellow Yellow [facility] Epithelial cells LM.HPF (Urine sed) [#/Area] None Seen /HPF [facility] Glucose Test strip (U) [Mass/Vol] Negative Negative [facility] Hemoglobin Ql (U) Negative Negative [facility] Hyaline casts (Urine sed) [#/Area] 4-10 /LPF Abnormal 0 /LPF [facility] Interpretation and review of laboratory results Abnormal [facility] Ketones Ql (U) Negative Negative [facility] Leukocyte esterase Test strip Ql (U) Negative Negative [facility] Nitrite Ql (U) Negative Negative [facility] pH (U) 6 [pH] NINF - 8.5 [facility] Protein (U) [Mass/Vol] Negative Negative [facility] RBC LM.HPF (Urine sed) [#/Area] 0-2 /HPF 0-2 /HPF [facility] Specific gravity (U) [Rel density] 1.011 1.005 - 1.030 [facility] Urobilinogen Ql (U) 1.0 EU/dL 0.2-1.0 EU/dL [facility] WBC LM.HPF (Urine sed) [#/Area] 0-5 /HPF 0-5 /HPF [facility] This test was developed and its performance characteristics determined by [facility]'s [facility] [place] ([facility]). It has not been cleared or approved by the FDA. [facility] is regulated under CLIA as qualified to perform high-complexity testing. This test is used for clinical purposes. It should not be regarded as investigational or for research. [facility] Bacteria LM.HPF (Urine sed) [#/Area] Negative Normal Negative [facility] Comment on above: Order Comment: Speci men Type: URINE SPECIMEN Ordering Facility: [facility] Address: [address] [place] [address] Performed By: #### 2 4356-8 #### [facility] CLIA [id number] [address] [place] [address] [place] Bilirubin Ql (U) Negative Normal Negative [facility] Comment on above: Order Comment: Speci men Type: URINE SPECIMEN Ordering Facility: [facility] Address: [address] [place] [address] Performed By: #### 2 4356-8 #### [facility] CLIA [id number] [address] [place] [address] [place] Clarity (Unsp spec) Clear Normal Clear [facility] Comment on above: Order Comment: Speci men Type: URINE SPECIMEN Ordering Facility: [facility] Address: [address] [place] [address] Performed By: #### 2 4356-8 #### [facility] CLIA [id number] [address] [place] [address] [place] Color (U) Yellow Normal Yellow [facility] Comment on above: Order Comment: Speci men Type: URINE SPECIMEN Ordering Facility: [facility] Address: [address] [place] [address] Performed By: #### 2 4356-8 #### [facility] CLIA [id number] [address] [place] [address] [place] [facility] Epithelial cells LM.HPF (Urine sed) [#/Area] None Seen Normal [facility] Comment on above: Order Comment: Speci men Type: URINE SPECIMEN Ordering Facility: [facility] Address: [address] [place] [address] Performed By: #### 2 4356-8 #### [facility] CLIA [id number] [address] [place] [address] [place] Glucose Test strip (U) [Mass/Vol] Negative Normal Negative [facility] Comment on above: Order Comment: Speci men Type: URINE SPECIMEN Ordering Facility: [facility] Address: [address] [place] [address] Performed By: #### 2 4356-8 #### [facility] CLIA [id number] [address] [place] [address] [place] Hemoglobin Ql (U) Negative Normal Negative [facility] Comment on above: Order Comment: Speci men Type: URINE SPECIMEN Ordering Facility: [facility] Address: [address] [place] [address] Performed By: #### 2 4356-8 #### [facility] CLIA [id number] [address] [place] [address] [place] Hyaline casts (Urine sed) [#/Area] 4-10 /LPF Abnormal 0 /LPF [facility] Comment on above: Order Comment: Speci men Type: URINE SPECIMEN Ordering Facility: [facility] Address: [address] [place] [address] Performed By: #### 2 4356-8 #### [facility] CLIA [id number] [address] [place] [address] [place] Ketones Ql (U) Negative Normal Negative [facility] Comment on above: Order Comment: Speci men Type: URINE SPECIMEN Ordering Facility: [facility] Address: [address] [place] [address] Performed By: #### 2 4356-8 #### [facility] CLIA [id number] [address] [place] [address] [place] Leukocyte esterase Test strip Ql (U) Negative Normal Negative [facility] Comment on above: Order Comment: Speci men Type: URINE SPECIMEN Ordering Facility: [facility] Address: [address] [place] [address] Performed By: #### 2 4356-8 #### [facility] CLIA [id number] [address] [place] [address] [place] Nitrite Ql (U) Negative Normal Negative [facility] Comment on above: Order Comment: Speci men Type: URINE SPECIMEN Ordering Facility: [facility] Address: [address] [place] [address] Performed By: #### 2 4356-8 #### [facility] CLIA [id number] [address] [place] [address] [place] pH (U) 6.0 [pH] Normal <8.5 [facility] Comment on above: Order Comment: Speci men Type: URINE SPECIMEN Ordering Facility: [facility] Address: [address] [place] [address] Performed By: #### 2 4356-8 #### [facility] CLIA [id number] [address] [place], [place] [id number] [place] Protein (U) [Mass/Vol] Negative Normal Negative [facility] Comment on above: Order Comment: Speci men Type: URINE SPECIMEN Ordering Facility: [facility] Address: [address] [place] [address] Performed By: #### 2 4356-8 #### [facility] CLIA [id number] [address] [place] RBC LM.HPF (Urine sed) [#/Area] 0-2 /HPF Normal 0-2 /HPF [facility] Comment on above: Order Comment: Speci men Type: URINE SPECIMEN Ordering Facility: [facility] Address: [address] [place] [address] Performed By: #### 2 4356-8 #### [facility] CLIA [id number] [address] [place] [address] [place] Specific gravity (U) [Rel density] 1.011 Normal 1.005-1.030 [facility] Comment on above: Order Comment: Speci men Type: URINE SPECIMEN Ordering Facility: [facility] Address: [address] [place] [address] Performed By: #### 2 4356-8 #### [facility] CLIA [id number] [address] [place] [address] [place] Urobilinogen Ql (U) 1.0 EU/dL Normal 0.2-1.0 EU/dL [facility] Comment on above: Order Comment: Speci men Type: URINE SPECIMEN Ordering Facility: [facility] Address: [address] [place] [address] Performed By: #### 2 4356-8 #### [facility] CLIA [id number] [address] [place] [address] [place] WBC LM.HPF (Urine sed) [#/Area] 0-5 /HPF Normal 0-5 /HPF [facility] Comment on above: Order Comment: Speci men Type: URINE SPECIMEN Ordering Facility: [facility] Address: [address] [place] [address] Performed By: #### 2 4356-8 #### [facility] CLIA [id number] [address] [place] [address] [place] CNOVon 08-29-2024 CNOV Office Visit (INTMWS ) ORION DUMONT ([id number]) 1950 M Date Time Provider Department 08/29/24 4:00 PM FLORIAN GONZALEZ INTMWS During your visit today, we recorded the following information about you: Temperature Pulse Respiration Blood pressure 97.6 degrees 84/minute 20/minute 110/68 Weight 104.3 kg Florian Gonzalez MD 08/29/2024 4:59 PM Signed This note was created using Wedia. Subjective Patient presents with: Cough Orion Dumont is a 73 year old male. Recording using Capigami software for draft documentation of the visit was discussed with the patient/authorized sales and merchandising representative; all questions welcomed and answered. Patient/authorized sales and merchandising representative agreed to proceed Cough: - Persistent cough with yellow sputum production x1 week. - Coughing episodes last 1-2 hours, unrelieved by cough drops or syrup. - Associated symptoms: rhinorrhea, epiphora, wheezing, and mild odynophagia. - Denies known exposure to illness; sister was recently hospitalized and in a mcfp, visited daily. - Denies otalgia, dyspnea, fever, chills, or night sweats. - Recent episodes of dizziness and imbalance. - History of similar coughing episode in May, treated with an OTC medication that resolved symptoms. - Currently using allergy relief pills with no relief. - Has an albuterol inhaler, last used 6-8 weeks ago. Diarrhea: - Diarrhea x2 days, with 3-4 episodes per day. Depression: - Reports feeling really, really depressed and not very proud of himself. - Overwhelmed by caregiving responsibilities for his 78-year-old sister, which occupy over 50% of his day. - Has a list of therapists to contact but has not done so yet. - Last saw a therapist 4-5 years ago; has an upcoming appointment with [place] on September 24. Scrotal Lesion: - Approximately 6 weeks ago, removed a scabbed lesion on the scrotum, resulting in significant bleeding. - Required multiple maxi pads to manage bleeding; eventually sought ER care where a dressing was applied, stopping the bleeding. - Did not follow up as advised because the bleeding resolved. Review of Systems Constitutional: (+) feeling cold, (-) fever, (-) chills, (-) night sweats Eyes: (+) tearing Ears/Nose/Mouth/Throa t: (+) nasal congestion, (+) sneezing, (-) ear pain, (-) sore throat Respiratory: (+) cough, (+) phlegm, (+) wheezing, (-) shortness of breath Gastrointestinal: (+) diarrhea, (-) vomiting Musculoskeletal: (+) localized bone pain Neurological: (+) dizziness, (+) imbalance Psychiatric: (+) depression, (+) suicidal ideation ACTIVE PROBLEM LIST Generalized Anxiety Disorder Major Depressive Disorder, Recurrent Episode, Moderate (Hcc) Lexie (Obstructive Sleep Apnea) Varicose Veins of Both Legs With Edema Gastric Bypass Status for Obesity Vitamin D Deficiency Orthostatic Hypotension Postsurgical Dumping Syndrome Atrial Fibrillation With Rvr ([facility]) Care Home Current Use of Anticoagulant Bph With Urinary Obstruction Obesity, Class II, Bmi 35-39.9 Hyperlipidemia Impaired Fasting Glucose 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 busPIRone (BUSPAR) 15 mg tablet Take 1 tablet by mouth two times a day. lamoTRIgine (LAMICTAL) 100 mg tablet Take 1 tablet by mouth once daily. sertraline (ZOLOFT) 100 mg tablet Take 2 tablets by mouth once daily. albuterol HFA (PROVENTIL HFA) 90 mcg/actuation inhaler Inhale 1-2 Puffs as instructed four times a day as needed for wheezing/shortness of breath. atorvastatin (LIPITOR) 20 mg tablet Take 1 tablet by mouth once daily. bisoprolol (ZEBETA) 5 mg tablet Take 1 tablet by mouth once daily. apixaban (ELIQUIS) 5 mg tab(s) Take 1 tablet by mouth two times a day. fludrocortisone (FLORINEF) 0.1 mg tablet Take 1 tablet by mouth once daily. ciclopirox (LOPROX) 0.77 % cream Apply to affected area two times a day as needed. pantoprazole DR (PROTONIX) 40 mg tablet Take 1 tablet by mouth daily before breakfast. Take on empty stomach, 1/2 hr before meal. oxybutynin XL (DITROPAN XL) 5 mg 24 hr tablet Take 1 tablet by mouth once daily. digoxin (LANOXIN) 250 mcg (0.25 mg) tablet take 1 tablet by mouth every day cholecalciferol (VITAMIN D3) 50 mcg (2,000 unit) tablet Take 1 tablet by mouth daily with dinner. calcium citrate-vitamin D3 (CITRACAL PLUS D) 315 mg-5 mcg (200 unit) tab Take 1 tablet by mouth twice daily with meals. With each meal. [id number] - (more content not included)... Normal [facility] XR CHEST 2V FRONTAL/LATon XR CHEST 2V FRONTAL/LAT * * *Final Repor t* * * DATE OF EXAM: Aug 29 2024 5:25PM WOX [id number] - XR CHEST 2V FRONTAL/LAT / PROCEDURE REASON: Stage 1 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 ([facility]) * * * * Physician Interpretation * * * * EXAMINATION: CHEST RADIOGRAPH (2 VIEW FRONTAL and LATERAL) CLINICAL HISTORY: Stage 1 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 ([facility]) MQ: XC2_6 EXAM DATE/TIME: 08/29/2024 5:25 PM COMPARISON: 05/28/2024 RESULT: Lines, tubes, and devices: Atrial appendage device again noted Lungs and pleura: No consolidation. No lung mass. No pleural effusion. No pneumothorax. Cardiomediastinal silhouette: Normal cardiomediastinal silhouette. Bones and soft tissues: Unremarkable. IMPRESSION: No acute radiographic abnormality. Pathology Laboratory Aide: EVELYNE Transcribe Date/Time: Aug 30 2024 10:46A Dictated by : FANTA WOO MD This examination was interpreted and the report reviewed and electronically signed by: FANTA WOO MD on Aug 30 2024 10:47AM EST [id number] Normal [facility] CNOVon 08-06-2024 CNOV Office Visit (PSWSTR ) ORION DUMONT ([id number]) 1950 M Date Time Provider Department 08/06/24 10:30 AM QUINCY ALONZO PSWSTR During your visit today, we recorded the following information about you: Pulse Respiration Blood pressure Weight 85/minute 18/minute 134/86 111.4 kg [facility]cy Alonzo, BRAD.FACING GRINDER 08/06/2024 12:20 PM Signed FOLLOW UP - PSYCHIATRIC PROGRESS NOTE Visit Type: In person Recording using Capigami software for draft documentation of the visit was discussed with the patient/authorized sales and merchandising representative; all questions welcomed and answered. Patient/authorized sales and merchandising representative agreed to proceed CC: Outpatient follow-up and safety monitoring of previously prescribed psychiatric medication, psychotherapy or other treatment HPI: Patient is a 73-year-old male with a history of LANA, depression, and impulsive behavior, presenting for follow-up. The patient reports ongoing stress and anxiety related to his financial situation and impulsive behaviors. He describes engaging in risky financial activities, such as using [employer] and Bitcoin, without fully understanding them. He has been repeatedly contacted by an individual through text messages, despite blocking the number multiple times. This person continues to reach out using different phone numbers and email addresses, causing significant frustration and distress. He is currently taking Seroquel at bedtime but is unsure if it is helping. He reports one night of insomnia but otherwise notes improved sleep. He is also taking Lamictal, Zoloft 100 mg daily, and BuSpar twice daily. He reports adherence to his medication regimen. He has not yet engaged in therapy but [facility] and plans to contact [facility]. He expresses a desire to manage his impulsive behaviors and reduce stress. He is currently living with his sister, who has been hospitalized and transferred to a mcfp after multiple falls. Another sister from [place] is visiting to help with the situation. He feels a significant burden of responsibility for his sister's care, which contributes to his anxiety and depressive symptoms. He experiences persistent what-if thoughts and difficulty letting go of worries, leading to feelings of being overwhelmed. Risks and benefits of the medication, including any black box warnings, were discussed with the patient. Interval Progress: Slightly improved in some areas. 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 Currently chest pain free; However, there is a high chance of recurrence since treatment has been on hold. Giving him steroid might actually put him at more risk of re bleeding. NSAID'S not an option for now. Plan: Consider Colchicine. If patient is to be restarted on AC, Colchicine has DVT (deep venous thrombosis) (HCC) 01/12/2010 S/P IVC filter, occurred post-op, on anticoagulation (for a fib) Eating disorder, unspecified 07/01/2009 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 Essential hypertension, benign Fatty liver 11/03/2009 by us Gall stones, common bile duct 12/07/2013 Generalized anxiety disorder 07/01/2009 GI bleed 06/29/2012 Hip joint replacement by other means 09/21/2012 Hyperlipidem (more content not included)... Normal [facility] Absolute lymphocyte countOrd ered By: Cortez Maldonado on 07-22-2024 Lymphocytes Auto (Unsp spec) [#/Vol] 1.78 10*3/uL 0.83-4.51 [facility] Comment on above: Previous reported re sult: 1.92 X10^3/uLEdited by: ISRA on 07/22/24:1754 AMENDED REPORT 07/22/241753 Absolute Lymph previously reported as: 1.92 X10^3/uL Absolute neutrophil countOrd ered By: Cortez Maldonado on 07-22-2024 Neutrophils (Bld) [#/Vol] 2.1 10*3/uL 2.0-7.7 [facility] Comment on above: Previous reported re sult: 2.0 X10^3/uLEdited by: ISRA on 07/22/24:1753 AMENDED REPORT 07/22/241752 Absolute Neut previously reported as: 2.0 X10^3/uL Anion gap in Serum or Plasma Ordered By: Cortez Maldonado on 07-22-2024 Anion gap [Moles/Vol] 8 mmol/L - [facility] Automated lymphocyte count a s percentage of total leukocytesOrdered By: Cortez Maldonado on 07-22-2024 Lymphocytes/100 WBC Auto (Unsp spec) 41.3 % High 19- [facility] Comment on above: Previous reported re sult: 43.5 %Edited by: ISRA on 07/22/24:1752 AMENDED REPORT 07/22/241751 LY% previously reported as: 43.5 H % BUN/creatinine ratioOrdered By: Cortez Maldonado on 07-22-2024 Urea nitrogen/Creatinine [Mass ratio] 19.2 mg/mg 10- [facility] Basic Metabolic Profile (BMP )on 07-22-2024 BUN/CRE 19.2 RATIO Normal - [facility] Comment on above: Performed By: #### L 500.2500, L100.0100 #### [facility] [address] [place], [address] Calcium [Mass/Vol] 9.1 mg/dL Normal 7.6-11.0 [facility] Comment on above: Performed By: #### L 500.2500, L100.0100 #### [facility] [address] [place], [address] Chloride [Moles/Vol] 108 mmol/L Normal 98-[address] [facility] Comment on above: Performed By: #### L 500.2500, L100.0100 #### [facility] [address] [place], [address] CO2 [Moles/Vol] 24.5 mmol/L Normal 21.0-32.0 [facility] Comment on above: Performed By: #### L 500.2500, L100.0100 #### [facility] [address] [place], [address] Creatinine [Mass/Vol] 0.86 mg/dL Normal 0.70-1.20 [facility] Comment on above: Performed By: #### L 500.2500, L100.0100 #### [facility] [address] [place], [address] ECRCL 99.80 ml/min Normal 50-250 [facility] Comment on above: Performed By: #### L 500.2500, L100.0100 #### [facility] [address] [place], [address] GAP 8 Normal 5-15 [facility] Comment on above: Performed By: #### L 500.2500, L100.0100 #### [facility] [address] [place], [address] GFR/1.73 sq M.predicted among non-blacks MDRD (S/P/Bld) [Vol rate/Area] 92 mL/min/{1.73_m2} Normal >60 [facility] Comment on above: Result Comment: mL/m in/1.73m2 CKD-EPI Creatinine Equation (2020) Performed By: #### L 500.2500, L100.0100 #### [facility] [address] [place], [address] Glucose [Mass/Vol] 64 mg/dL Low 70-99 [facility] Comment on above: Performed By: #### L 500.2500, L100.0100 #### [facility] [address] [place], [address] Potassium [Moles/Vol] 4.1 mmol/L Normal 3.3-5.1 [facility] Comment on above: Performed By: #### L 500.2500, L100.0100 #### [facility] [address] [place], [address] Sodium [Moles/Vol] 140 mmol/L Normal 133-145 [facility] Comment on above: Performed By: #### L 500.2500, L100.0100 #### [facility] [address] [place], [address] Urea nitrogen [Mass/Vol] 17 mg/dL Normal 4-19 [facility] Comment on above: Performed By: #### L 500.2500, L100.0100 #### [facility] [address] [place], [address] Basophil percentageOrdered B y: Cortez Maldonado on 07-22-2024 Basophils/100 WBC (Bld) 0.7 % 0-[address] [facility] CBC W/Diff, Automatedon 07-09 CBC W Auto Differential panel (Bld) Normal [facility] Comment on above: Performed By: #### L 500.2500, L100.0100 #### [facility] Laboratory [address] [place], [place], [address] CNOVon 07-22-2024 CNOV Office Visit (UCWSTR ) ORION DUMONT ([id number]) 1950 M Vendor Date Time Provider Department 07/22/24 4:15 PM [facility]EL[facility] During your visit today, we recorded the following information about you: Jackeline Hair APRN.FACING GRINDER 07/22/2024 4:33 PM Signed At this time patient came in because he has a wound on his scrotum that is continuously bleeding. Patient is going through multiple woman's pads. Patient is on a blood thinner and says it has been bleeding since yesterday. At this time due to area being significantly vascular patient is being referred to the emergency room for more thorough evaluation and treatment. Patient was agreeable and will take his self. Allergies As of Date: 07/22/2024 Noted Allergy Reaction RIVAROXABAN 03/02/2013 2 - Rash SULFA (SULFONAMIDE ANTIBIOTICS) 03/18/2008 5 - Intolerance 4 - Hives Comments: Pt says that he has had silvadene cream in the past after cardioversions without side effects ADHESIVE TAPE (ROSINS) 10/08/2009 2 - Rash NIACIN 05/12/2023 14 - Other: See Comments Comments: Itching, head lam WOOL 11/25/2009 9 - Itching WOOL 03/09/2010 9 - Itching DICLOFENAC SODIUM 02/01/2016 2 - Rash Comments: Fixed drug eruption Date Reviewed: 05/28/2024 Reviewed by: Teri Cummings LPN - Fully Assessed Primary Visit Diagnosis:Excessive bleeding [R58] Prescriptions as of 07/22/2024 - QUEtiapine (SEROQUEL) 50 mg tablet Take 1 tablet by mouth daily at bedtime. - lamoTRIgine (LAMICTAL) 100 mg tablet Take 1 tablet by mouth once daily. - sertraline (ZOLOFT) 100 mg tablet Take 1 tablet by mouth once daily. - busPIRone (BUSPAR) 15 mg tablet Take 1 tablet by mouth every morning. - benzonatate (TESSALON PERLE) 100 mg capsule Take 1-2 capsules by mouth three times a day as needed for cough. - albuterol HFA (PROVENTIL HFA) 90 mcg/actuation inhaler Inhale 1-2 Puffs as instructed four times a day as needed for wheezing/shortness of breath. - cetirizine (ZYRTEC) 10 mg tablet Take 1 tablet by mouth once daily. for nasal drainage and phlegm - atorvastatin (LIPITOR) 20 mg tablet Take 1 tablet by mouth once daily. - bisoprolol (ZEBETA) 5 mg tablet Take 1 tablet by mouth once daily. - apixaban (ELIQUIS) 5 mg tab(s) Take 1 tablet by mouth two times a day. - fludrocortisone (FLORINEF) 0.1 mg tablet Take 1 tablet by mouth once daily. - ciclopirox (LOPROX) 0.77 % cream Apply to affected area two times a day as needed. - pantoprazole DR (PROTONIX) 40 mg tablet Take 1 tablet by mouth daily before breakfast. Take on empty stomach, 1/2 hr before meal. - oxybutynin XL (DITROPAN XL) 5 mg 24 hr tablet Take 1 tablet by mouth once daily. - digoxin (LANOXIN) 250 mcg (0.25 mg) tablet take 1 tablet by mouth every day - cholecalciferol (VITAMIN D3) 50 mcg (2,000 unit) tablet Take 1 tablet by mouth daily with dinner. - calcium citrate-vitamin D3 (CITRACAL PLUS D) 315 mg-5 mcg (200 unit) tab Take 1 tablet by mouth twice daily with meals. With each meal. - Rscpx6-NbtW6-R75-E-FA -Fish Oil [id number] ka-oy-wuu-mcg cap Take 600 mg by mouth once daily. - pyridoxine (VITAMIN B-6) 100 mg tablet Take 2 tablets by mouth twice daily. - docusate sodium 100 mg capsule Take 1 capsule by mouth twice daily as needed for Constipation. Meds Comments as of 04/11/2012: Problem List As Of Date 07/22/2024 Noted Resolved Other specified disease of sebaceous glands [L7*06/11/2008 05/05/2021 Corns and callosities [L84] 06/11/2008 05/05/2021 Contusion of foot [S90.30XA] 06/11/2008 05/05/2021 Eating disorder, unspecified [F50.9] 07/01/2009 05/12/2023 Generalized Anxiety Disorder [F41.1] 07/01/2009 Major Depressive Disorder, Recurrent Episode, M*07/01/2009 Morbid obesity (HCC) [E66.01] 10/14/2009 02/20/2014 Encounter for dietary counseling and surveillan*10/14/2009 05/05/2021 DVT (deep venous thrombosis) ([facility]) [I82.409] 01/12/2010 05/05/2021 Atrial fibrillation [I48.91] 11/03/2009 11/05/2018 Pulmonary embolism ([facility]) [I26.99] 03/01/2010 05/05/2021 Retinal detachment with retinal defect, unspeci*06/14/2010 05/05/2021 Anticoagulation monitoring, INR range 2-3 [Z79.*06/14/2010 09/28/2012 LEXIE (obstructive sleep apnea) [G47.33] 06/14/2010 Hypomagnesemia [E83.42] 06/15/2010 05/05/2021 Hypokalemia [E87.6] 06/16/2010 05/05/2021 Other and unspecified postsurgical nonabsorptio*08/26/19 11 05/05/2021 Wound check, abscess [Z51.89] 08/25/2010 05/05/2021 Varicose veins of both legs with edema [I83.893]2010 Anticoagulation management encounter [Z51.81, Z*2010 05/05/2021 emt intermediate (current) use of anticoagulants [Z79.*03/18/2011 05/05/2021 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 Normal [facility] Carbon dioxide, total [Moles /volume] in Central venous bloodOrdered By: Cortez Maldonado on 07-22-2024 CO2 [Moles/Vol] 24.5 mmol/L 21.0-32.0 [facility] Chloride assayOrdered By: Dejon Maldonado on 07-22-2024 Chloride [Moles/Vol] 108 mmol/L 98-[address] [facility] Emergency Department Summary on 07-22-2024 Emergency Department Summary [facility] Medical Records Department [address] [place] [address] Emergency Department Summary 07/22/24 MR#: [id number] Acct: [id number] Name: ORION DUMONT Rep #: [id number] : 1950 73 From: Cortez Maldonado MD PCP: Dr. Florian Gonzalez MD Status:REG ER Location: ED HPI History of Present Illness Chief Complaint: Male Pain/Injury Informant: patient Pain Onset: Yesterday (Last night) Timing: Continuous Current Severity: Mild Maximum Severity: Mild Narrative Narrative: 73-year-old male on Eliquis which she has been on for years for A-fib. 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 He says from time to time they bleed. Began bleeding last night when he was bathing and he scrubbed off a scab. He has not been able to get the bleeding to stop. Denies any other complaints. Also stated he was going to see his primary care physician to update his tetanus and wanted me to do that today. He denies any nosebleeds. No hematuria. No rectal bleeding. No significant bruising. Prior similar symptoms: Yes Recent Illness/Hospitalizati on: No PFSH [facility] Medical History Afib Home Medications ???Medication ???Instructions ???Recorded ???Last Taken ???Type albuterol sulfate 90 mcg/actuation 90 mcg IH PRN PRN Wheezing 10/14 Unknown History breath activated powder inhaler,sensor alfuzosin 10 mg tablet,extended 10 mg PO DAILY 10/15/19 Unknown Hi story release 24 hr apixaban 5 mg tablet 5 mg PO BID 10/15/19 Unknown Histo ry atorvastatin 20 mg tablet 20 mg PO DAILY 10/15/19 Unknown Hi story bupropion HCl 200 mg tablet,12 hr 100 mg PO DAILY 10/15/19 Unknown History sustained-release buspirone 15 mg tablet 15 mg PO BID 10/15/19 Unknown Hist ory calcium 315 mg (as 1 ea PO DAILY 10/15/19 Unknown His tory citrate)-vitamin D3 6.25 mcg (250 unit) tablet cholecalciferol (vitamin D3) 25 1,000 unit PO DAILY 10/15/19 Unkno wn History mcg (1,000 unit) tablet metoprolol succinate 25 mg 25 mg PO DAILY 10/15/19 Unknown Hi story tablet,extended release 24 hr midodrine 10 mg tablet 10 mg PO BID 10/15/19 Unknown Hist ory multivitamin 1 ea PO DAILY 10/15/19 Unknown His tory pyridoxine (vitamin B6) 100 mg 100 mg PO DAILY 10/15/19 Unknown H istory tablet sertraline 100 mg tablet 100 mg PO DAILY 10/15/19 Unknown H istory pantoprazole 40 mg tablet,delayed 40 mg PO DAILY 07/21/20 Unknown H istory release hydrocodone-acetamino phen 5-325mg 1 tab PO Q6H PRN PRN Pain 3 days 01/29/22 Unknown Rx 5mg-325mg #10 TABLETS orphenadrine citrate 100 mg 100 mg PO QHS PRN PRN muscle spasm 01/29/22 Unknown Rx tablet,extended release #10 tabs Allergy/AdvReac Type Severity Reaction Status Date / Time rivaroxaban (From Xarelto) Allergy Rash Verified 10/28/22 18:09 Sulfa (Sulfonamide Allergy Rash Verified 10/28/22 18:09 Antibiotics) niacin AdvReac Mild Rash Verified 07/22/24 16:07 Surgical History H/O total hip arthroplasty Gastric bypass status for obesity Social History Smoking Status: Never smoker ROS ROS ED ROS Narrative Denies recent illness. Constitutional Constitutional ED: Denies chills or fever(s) Eyes Eyes: Denies blurry vision ENT ENT ED: Denies ear pain Cardiovascular Cardiovascular: Denies chest pain Respiratory/Chest Respiratory/Chest: Denies cough or dyspnea Gastrointestinal Gastrointestinal: Denies abdominal pain Genitourinary Genitourinary ED: Denies dysuria or hematuria Musculoskeletal Musculoskeletal: Denies arthralgias Integumentary Denies abscess Neurologic Neurologic: Denies headache(s) Psychiatric Psychiatric: Denies anxiety or depression Endocrine Endocrinology: Denies polydipsia Hematologic/Lymphatic Hematologic/Lymphatic : Reports easy bleeding; Denies lymphadenopathy Allergic/Immunologic Allergic/Immunologic ED: Denies mouth swelling, tongue swelling or urticaria EXAM Physical Exam Narrative Exam Narrative: 73-year-old male sitting upright in bed. Vital signs are stable afebrile. H EENT exam pupils round reactive light. Moist mucous membranes. Neck nontender. Lungs clear. Heart A-fib rate about 80 no murmur. Chest wall ribs nontender. Abdomen soft nontender. Moving all 4 extremities. Nontender. Trace edema. Normal strength. Neurologically is awake alert. External exam. Left side of the scrotum is varicosities. 1 is mildly oozing. He says it has slowed with direct pressure. There is no signs of infection. No cellulitis. Const Vital Signs: 07/22/24 16:07 07/22/24 21:10 Temperature 97.6 F L Temperature Source Oral Pulse Rate 81 Respiratory Rate 16 (more content not included)... Normal [facility] Eosinophil percentageOrdered By: Cortez Maldonado on 07-22-2024 Eosinophils/100 WBC (Bld) 4.4 % 0-5 [facility] Comment on above: Previous reported re sult: 3.9 %Edited by: ISRA on 07/22/24:1751 AMENDED REPORT 07/22/241751 EO% previously reported as: 3.9 % Erythrocyte distribution wid th (RBC) [Ratio]Ordered By: Cortez Maldonado on 07-22-2024 Erythrocyte distribution width (RBC) [Entitic vol] 48.3 fL High 35.1-43.9 [facility] Comment on above: Previous reported re sult: 69.7 flEdited by: ISRA on 07/22/24:1750 AMENDED REPORT 07/22/241749 RDW SD previously reported as: 69.7 H fl Erythrocyte distribution wid th ratioOrdered By: Cortez Maldonado on 07-22-2024 Erythrocyte distribution width (RBC) [Ratio] 14.4 % 11.6-14.6 [facility] Comment on above: Previous reported re sult: 19.9 %Edited by: ISRA on 07/22/24:1749 AMENDED REPORT 07/22/241748 RDW CV previously reported as: 19.9 H % Erythrocyte distribution wid th standard deviationOrdered By: Cortez Maldonado on 07-22-2024 Erythrocyte distribution width (RBC) [Ratio] 48.3 fl High 35.1-43.9 [facility] Comment on above: Previous reported re sult: 69.7 flEdited by: ISRA on 07/22/24:1750 AMENDED REPORT 07/22/241749 RDW SD previously reported as: 69.7 H fl Estimation of creatinine nitish aranceOrdered By: Cortez Maldonado on 07-22-2024 Estimated Creatinine Clearance Calc 99.80 ml/min 50-250 [facility] GFR/1.73 sq M.predicted ayesha g non-blacks MDRD (S/P/Bld) [Vol rate/Area]Ordered By: Cortez Maldonado on 07-22-2024 Estimated GFR (MDRD) Non-Af Amer 92 >60 [facility] Comment on above: mL/min/1.73m2 CKD-EP I Creatinine Equation (2020) Glomerular filtration rate ( GFR) estimation/1.73 sq m using serum, plasma, or whole bOrdered By: Cortez Maldonado on 07-22-2024 GFR/1.73 sq M.predicted among non-blacks MDRD (S/P/Bld) [Vol rate/Area] 92 mL/min/{1.73_m2} >60 [facility] Comment on above: mL/min/1.73m2 CKD-EP I Creatinine Equation (2020) Hematocrit Auto (Bld) [Volum e fraction]Ordered By: Cortez Maldonado on 07-22-2024 Hematocrit (Bld) [Volume fraction] 36.2 % Low 40-54 [facility] Comment on above: Previous reported re sult: 25.3 %Edited by: ISRA on 07/22/24:1748 AMENDED REPORT 07/22/241747 HCT previously reported as: 25.3 L % Hemoglobin measurementOrdere d By: Cortez Maldonado on 07-22-2024 Hemoglobin (Bld) [Mass/Vol] 12.2 g/dL Low 13.0-16.5 [facility] Comment on above: Previous reported re sult: 7.9 g/dLEdited by: ISRA on 07/22/24:1748 AMENDED REPORT 07/22/241747 HGB previously reported as: 7.9 L g/dL Immature granulocytes/100 WB C Auto (Bld)Ordered By: Cortez Maldonado on 07-22-2024 Immature granulocytes/100 WBC (Bld) 0.200 % 0.0-0.9 [facility] Comment on above: IG% - Immature Granu locytes (promyelocytes, myelocytes and metamyelocytes) > 1% indicates that a LEFT SHIFT is Present. Lymphocytes Auto (Unsp spec) [#/Vol]Ordered By: Cortez Maldonado on 07-22-2024 Lymphocytes (Bld) [#/Vol] 1.78 10*3/uL 0.83-4.51 [facility] Comment on above: Previous reported re sult: 1.92 X10^3/uLEdited by: ISRA on 07/22/24:1754 AMENDED REPORT 07/22/241753 Absolute Lymph previously reported as: 1.92 X10^3/uL Lymphocytes/100 WBC Auto (Un sp spec)Ordered By: Cortez Maldonado on 07-22-2024 Lymphocytes/100 WBC (Bld) 41.3 % High 19-41 [facility] Comment on above: Previous reported re sult: 43.5 %Edited by: ISRA on 07/22/24:175 AMENDED REPORT 07/22/241751 LY% previously reported as: 43.5 H % MCV (mean corpuscular volume ) determinationOrdered By: Cortez Maldonado on 07-22-2024 MCV (RBC) [Entitic vol] 91.6 fL 80-[address] [facility] Comment on above: Previous reported re sult: 97.7 fLEdited by: ISRA on 07/22/24:1749 AMENDED REPORT 07/22/241748 MCV previously reported as: 97.7 H fL Mean corpuscular hemoglobin (MCH) determinationOrdered By: Cortez Maldonado on 07-22-2024 MCH (RBC) [Entitic mass] 30.9 pg 27.0-32.0 [facility] Comment on above: Previous reported re sult: 30.5 pgEdited by: ISRA on 07/22/24:1749 AMENDED REPORT 07/22/241748 MCH previously reported as: 30.5 pg Mean corpuscular hemoglobin concentration (MCHC) determinationOrdered By: Cortez Maldonado on 07-22-2024 MCHC (RBC) [Mass/Vol] 33.7 g/dL 32-36 [facility] Comment on above: Previous reported re sult: 31.2 g/dLEdited by: ISRA on 07/22/24:1749 AMENDED REPORT 07/22/241748 MCHC previously reported as: 31.2 L g/dL Mean platelet volume determi nationOrdered By: Cortez Maldonado on 07-22-2024 Platelet mean volume (Bld) [Entitic vol] 11.3 fL 6.2-12.0 [facility] Comment on above: Previous reported re sult: 10.7 flEdited by: ISRA on 07/22/24:1750 AMENDED REPORT 07/22/241749 MPV previously reported as: 10.7 fl Monocyte percentageOrdered B y: Cortez Maldonado on 07-22-2024 Monocytes/100 WBC (Bld) 5.8 % 0-10 [facility] Comment on above: Previous reported re sult: 5.4 %Edited by: ISRA on 07/22/24:1752 AMENDED REPORT 07/22/241751 MONO% previously reported as: 5.4 % Neutrophil percentageOrdered By: Cortez Maldonado on 07-22-2024 Neutrophils/100 WBC (Bld) 47.6 % 47-70 [facility] Comment on above: Previous reported re sult: 46.3 %Edited by: ISRA on 07/22/24:1751 AMENDED REPORT 07/22/241750 NEUT% previously reported as: 46.3 L % Nucleated red blood cell per centageOrdered By: Cortez Maldonado on 07-22-2024 Nucleated RBC/100 WBC (Bld) [Ratio] 0 % 0-5 [facility] Platelet countOrdered By: Dejon Maldonado on 07-22-2024 Platelets (Bld) [#/Vol] 191 10*3/uL 150-450 [facility] Comment on above: Previous reported re sult: 135 K/yp2Gdcpqj by: ISRA on 07/22/24:1750 AMENDED REPORT 07/22/241749 PLT previously reported as: 135 L K/mm3 Potassium (Unsp spec) [Mass/ Vol]Ordered By: Cortez Maldonado on 07-22-2024 Potassium [Moles/Vol] 4.1 mmol/L 3.3-5.1 [facility] Potassium measurement (mass/ volume)Ordered By: Cortez Maldonado on 07-22-2024 Potassium (Unsp spec) [Mass/Vol] 4.1 mmol/L 3.3-5.1 [facility] RBC Auto (Bld) [#/Vol]Ordere d By: Cortez Maldonado on 07-22-2024 RBC (Bld) [#/Vol] 3.95 10*6/uL Low 4.6-6.2 [facility] Comment on above: Previous reported re sult: 2.59 M/mp2Ersutk by: ISRA on 07/22/24:1748 AMENDED REPORT 07/22/241747 RBC previously reported as: 2.59 L M/mm3 Serum creatinine measurement (mass/volume)Ordered By: Cortez Maldonado on 07-22-2024 Creatinine [Mass/Vol] 0.86 mg/dL 0.70-1.20 [facility] Serum glucose measurement (m ass/volume)Ordered By: Cortez Maldonado on 07-22-2024 Glucose [Mass/Vol] 64 mg/dL Low 70-99 [facility] Serum or plasma calcium tierra urement (mass/volume)Ordered By: Cortez Maldonado on 07-22-2024 Calcium [Mass/Vol] 9.1 mg/dL 7.6-11.0 [facility] Serum or plasma urea nitroge n measurement (mass/volume)Ordered By: Cortez Maldonado on 07-22-2024 Urea nitrogen [Mass/Vol] 17 mg/dL 4-19 [facility] Sodium levelOrdered By: Cortez Maldonado on 07-22-2024 Sodium [Moles/Vol] 140 mmol/L 133-145 [facility] White blood cell (WBC) count Ordered By: Cortez Maldonado on 07-22-2024 WBC (Bld) [#/Vol] 4.3 10*3/uL Low 4.4-11.0 [facility] Comment on above: Previous reported re sult: 1.9 K/ru1Zzmicl by: ISRA on 07/22/24:1747 AMENDED REPORT 07/22/24 1747 WBC previously reported as: 1.9 L K/mm3 Antoinette 07-19-2024 CNPN Telephone (PSYLME) ORION DUMONT ([id number]) 1950 M Vendor Date Time Provider Department 07/19/24 KUSUM JEFFRIES During your visit today, we recorded the following information about you: Kusum Jeffries LPCC 07/19/2024 11:08 AM Signed Behavioral Health Social Work Progress Note Patient identified for SW from: CDM Reason for referral: Resources Behavioral Health Resources: Psychology - talk therapy BHSW encounter type: Telephone Encounter Attempts to Outreach: 1 attempt Patient Discharged?: No Patient reported that caregiver was able to meet their needs today?: N/A Phone call placed today that went to [employer]. Left my contact information and brief nature of call. Initial outreach also completed via [employer] sending list of in network providers with insurance. [facility] Jeffries [facility] July 19, 2024 Allergies As of Date: 07/19/2024 Noted Allergy Reaction RIVAROXABAN 03/02/2013 2 - Rash SULFA (SULFONAMIDE ANTIBIOTICS) 03/18/2008 5 - Intolerance 4 - Hives Comments: Pt says that he has had silvadene cream in the past after cardioversions without side effects ADHESIVE TAPE (ROSINS) 10/08/2009 2 - Rash NIACIN 05/12/2023 14 - Other: See Comments Comments: Itching, head lam WOOL 11/25/2009 9 - Itching WOOL 03/09/2010 9 - Itching DICLOFENAC SODIUM 02/01/2016 2 - Rash Comments: Fixed drug eruption Date Reviewed: 05/28/2024 Reviewed by: Teri Cummings LPN - Fully Assessed Reason for Visit: consult [Other] Prescriptions as of 07/19/2024 - QUEtiapine (SEROQUEL) 50 mg tablet Take 1 tablet by mouth daily at bedtime. - lamoTRIgine (LAMICTAL) 100 mg tablet Take 1 tablet by mouth once daily. - sertraline (ZOLOFT) 100 mg tablet Take 1 tablet by mouth once daily. - busPIRone (BUSPAR) 15 mg tablet Take 1 tablet by mouth every morning. - benzonatate (TESSALON PERLE) 100 mg capsule Take 1-2 capsules by mouth three times a day as needed for cough. - albuterol HFA (PROVENTIL HFA) 90 mcg/actuation inhaler Inhale 1-2 Puffs as instructed four times a day as needed for wheezing/shortness of breath. - cetirizine (ZYRTEC) 10 mg tablet Take 1 tablet by mouth once daily. for nasal drainage and phlegm - atorvastatin (LIPITOR) 20 mg tablet Take 1 tablet by mouth once daily. - bisoprolol (ZEBETA) 5 mg tablet Take 1 tablet by mouth once daily. - apixaban (ELIQUIS) 5 mg tab(s) Take 1 tablet by mouth two times a day. - fludrocortisone (FLORINEF) 0.1 mg tablet Take 1 tablet by mouth once daily. - ciclopirox (LOPROX) 0.77 % cream Apply to affected area two times a day as needed. - pantoprazole DR (PROTONIX) 40 mg tablet Take 1 tablet by mouth daily before breakfast. Take on empty stomach, 1/2 hr before meal. - oxybutynin XL (DITROPAN XL) 5 mg 24 hr tablet Take 1 tablet by mouth once daily. - digoxin (LANOXIN) 250 mcg (0.25 mg) tablet take 1 tablet by mouth every day - cholecalciferol (VITAMIN D3) 50 mcg (2,000 unit) tablet Take 1 tablet by mouth daily with dinner. - calcium citrate-vitamin D3 (CITRACAL PLUS D) 315 mg-5 mcg (200 unit) tab Take 1 tablet by mouth twice daily with meals. With each meal. - Snucb4-ImzZ9-L54-E-FA -Fish Oil [id number] uf-ha-pdz-mcg cap Take 600 mg by mouth once daily. - pyridoxine (VITAMIN B-6) 100 mg tablet Take 2 tablets by mouth twice daily. - docusate sodium 100 mg capsule Take 1 capsule by mouth twice daily as needed for Constipation. Meds Comments as of 04/11/2012: Problem List As Of Date 07/19/2024 Noted Resolved Other specified disease of sebaceous glands [L7*06/11/2008 05/05/2021 Corns and callosities [L84] 06/11/2008 05/05/2021 Contusion of foot [S90.30XA] 06/11/2008 05/05/2021 Eating disorder, unspecified [F50.9] 07/01/2009 05/12/2023 Generalized Anxiety Disorder [F41.1] 07/01/2009 Major Depressive Disorder, Recurrent Episode, M*07/01/2009 Morbid obesity (HCC) [E66.01] 10/14/2009 02/20/2014 Encounter for dietary counseling and surveillan*10/14/2009 05/05/2021 DVT (deep venous thrombosis) (HCC) [I82.409] 01/12/2010 05/05/2021 Atrial fibrillation [I48.91] 11/03/2009 11/05/2018 Pulmonary embolism (HCC) [I26.99] 03/01/2010 05/05/2021 Retinal detachment with retinal defect, unspeci*06/14/2010 05/05/2021 Anticoagulation monitoring, INR range 2-3 [Z79.*06/14/2010 09/28/2012 LEXIE (obstructive sleep apnea) [G47.33] 06/14/2010 Hypomagnesemia [E83.42] 06/15/2010 05/05/2021 Hypokalemia [E87.6] 06/16/2010 05/05/2021 Other and unspecified postsurgical nonabsorptio*08/26/19 11 05/05/2021 Wound check, abscess [Z51.89] 08/25/2010 05/05/2021 Varicose veins of both legs with edema [I83.893]2010 Anticoagulation management encounter [Z51.81, Z*2010 05/05/2021 skilled nursing (current) use of anticoagulants [Z79.*03/18/2011 05/05/2021 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 She has an appointment in [place] tomorrow and he doesn't think he can make it back in time for his OV with here. He did request a refill for his seroquel 50 mg be sent to [facility] and NOT [facility]. Pt only has 5 tabs left. He gets way less if he uses mail order. 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 Agreed to take any cancellation that come available in the future. BRIAN Manuel Nishi J, APRN.FACING GRINDER 07/01/2024 4:23 PM Signed Please notify the patient that I am glad that Seroquel 50 mg appears to be helping his symptoms. I have sent a new prescription of Seroquel 50 mg [facility]. Katya Salmon LPN 07/03/2024 10:53 AM Signed Patient notified. Katya Salmon LPN Allergies As of Date: 07/01/2024 Noted Allergy Reaction RIVAROXABAN 03/02/2013 2 - Rash SULFA (SULFONAMIDE ANTIBIOTICS) 03/18/2008 5 - Intolerance 4 - Hives Comments: Pt says that he has had silvadene cream in the past after cardioversions without side effects ADHESIVE TAPE (ROSINS) 10/08/2009 2 - Rash NIACIN 05/12/2023 14 - Other: See Comments Comments: Itching, head lam WOOL 11/25/2009 9 - Itching WOOL 03/09/2010 9 - Itching DICLOFENAC SODIUM 02/01/2016 2 - Rash Comments: Fixed drug eruption Date Reviewed: 05/28/2024 Reviewed by: Teri Cummings LPN - Fully Assessed Order(s):QUEtiapine (SEROQUEL) 50 mg tabletTake 1 tablet by mouth daily at bedtime.Disp: 90 tabletRfl: 0 Prescriptions as of 07/03/2024 - QUEtiapine (SEROQUEL) 50 mg tablet Take 1 tablet by mouth daily at bedtime. - lamoTRIgine (LAMICTAL) 100 mg tablet Take 1 tablet by mouth once daily. - sertraline (ZOLOFT) 100 mg tablet Take 1 tablet by mouth once daily. - busPIRone (BUSPAR) 15 mg tablet Take 1 tablet by mouth every morning. - benzonatate (TESSALON PERLE) 100 mg capsule Take 1-2 capsules by mouth three times a day as needed for cough. - albuterol HFA (PROVENTIL HFA) 90 mcg/actuation inhaler Inhale 1-2 Puffs as instructed four times a day as needed for wheezing/shortness of breath. - cetirizine (ZYRTEC) 10 mg tablet Take 1 tablet by mouth once daily. for nasal drainage and phlegm - atorvastatin (LIPITOR) 20 mg tablet Take 1 tablet by mouth once daily. - bisoprolol (ZEBETA) 5 mg tablet Take 1 tablet by mouth once daily. - apixaban (ELIQUIS) 5 mg tab(s) Take 1 tablet by mouth two times a day. - fludrocortisone (FLORINEF) 0.1 mg tablet Take 1 tablet by mouth once daily. - ciclopirox (LOPROX) 0.77 % cream Apply to affected area two times a day as needed. - pantoprazole DR (PROTONIX) 40 mg tablet Take 1 tablet by mouth daily before breakfast. Take on empty stomach, 1/2 hr before meal. - oxybutynin XL (DITROPAN XL) 5 mg 24 hr tablet Take 1 tablet by mouth once daily. - digoxin (LANOXIN) 250 mcg (0.25 mg) tablet take 1 tablet by mouth every day - cholecalciferol (VITAMIN D3) 50 mcg (2,000 unit) tablet Take 1 tablet by mouth daily with dinner. - calcium citrate-vitamin D3 (CITRACAL PLUS D) 315 mg-5 mcg (200 unit) tab Take 1 tablet by mouth twice daily with meals. With each meal. - [id number]-FA -Fish Oil [id number] tc-fn-iie-mcg cap Take 600 mg by mouth once daily. - pyridoxine (VITAMIN B-6) 100 mg tablet Take 2 tablets by mouth twice daily. - docusate sodium 100 mg capsule Take 1 capsule by mouth twice daily as needed for Constipation. Meds Comments as of 04/11/2012: Problem List As Of Date 07/01/2024 Noted Resolved Other specified disease of sebaceous glands [L7*06/11/2008 05/05/2021 Corns and callosities [L84] 06/11/2008 05/05/2021 Contusion of foot [S90.30XA] 06/11/2008 05/05/2021 Eating disorder, unspecified [F50.9] 07/01/2009 05/12/2023 Generalized Anxiety Disorder [F41.1] 07/01/2009 Major Depressive Disorder, Recurrent Episode, M*07/01/2009 Morbid obesity (HCC) [E66.01] 10/14/2009 02/20/2014 Encounter for dietary counseling and surveillan*10/14/2009 05/05/2021 DVT (deep venous thrombosis) ([facility]) [I82.409] 01/12/2010 05/05/2021 Atrial fibrillation [I48.91] 11/03/2009 11/05/2018 Pulmonary embolism ([facility]) [I26.99] 03/01/2010 05/05/2021 Retinal detachment with retinal defect, unspeci*06/14/2010 05/05/2021 Anticoagulation monitoring, INR range 2-3 [Z79.*06/14/2010 09/28/2012 LEXIE (obstructive sleep apnea) [G47.33] 06/14/2010 Hypomagnesemia [E83.42] 06/15/2010 05/05/2021 Hypokalemia [E87.6] 06/16/2010 05/05/2021 Other and unspecified postsurgical nonabsorptio* (more content not included)... Normal [facility] ORION DUMONT ([id number]) 1950 M Vendor Date Time Provider Department 06/10/24 [facility] During your visit today, we recorded the following information about you: Glory Horowitz 06/10/2024 2:44 PM Signed Patient wondering if they need appointment for medication before 07/02 appointment. Quincy Alonzo, BRAD.FACING GRINDER 06/10/2024 3:19 PM Signed Please let the patient know that he can just come for the appointment scheduled on 07/02. He can let us know if he needs any refills prior to that. Katya Salmon LPN 06/12/2024 9:39 AM Signed Call placed to patient notifying of providers message. Patient voices understanding. Katya Salmon LPN Allergies As of Date: 06/10/2024 Noted Allergy Reaction RIVAROXABAN 03/02/2013 2 - Rash SULFA (SULFONAMIDE ANTIBIOTICS) 03/18/2008 5 - Intolerance 4 - Hives Comments: Pt says that he has had silvadene cream in the past after cardioversions without side effects ADHESIVE TAPE (ROSINS) 10/08/2009 2 - Rash NIACIN 05/12/2023 14 - Other: See Comments Comments: Itching, head lam WOOL 11/25/2009 9 - Itching WOOL 03/09/2010 9 - Itching DICLOFENAC SODIUM 02/01/2016 2 - Rash Comments: Fixed drug eruption Date Reviewed: 05/28/2024 Reviewed by: Teri Cummings LPN - Fully Assessed Prescriptions as of 06/12/2024 - lamoTRIgine (LAMICTAL) 100 mg tablet Take 1 tablet by mouth once daily. - sertraline (ZOLOFT) 100 mg tablet Take 1 tablet by mouth once daily. - QUEtiapine (SEROQUEL) 50 mg tablet Take 1 tablet by mouth daily at bedtime. - busPIRone (BUSPAR) 15 mg tablet Take 1 tablet by mouth every morning. - benzonatate (TESSALON PERLE) 100 mg capsule Take 1-2 capsules by mouth three times a day as needed for cough. - albuterol HFA (PROVENTIL HFA) 90 mcg/actuation inhaler Inhale 1-2 Puffs as instructed four times a day as needed for wheezing/shortness of breath. - cetirizine (ZYRTEC) 10 mg tablet Take 1 tablet by mouth once daily. for nasal drainage and phlegm - atorvastatin (LIPITOR) 20 mg tablet Take 1 tablet by mouth once daily. - bisoprolol (ZEBETA) 5 mg tablet Take 1 tablet by mouth once daily. - apixaban (ELIQUIS) 5 mg tab(s) Take 1 tablet by mouth two times a day. - fludrocortisone (FLORINEF) 0.1 mg tablet Take 1 tablet by mouth once daily. - ciclopirox (LOPROX) 0.77 % cream Apply to affected area two times a day as needed. - pantoprazole DR (PROTONIX) 40 mg tablet Take 1 tablet by mouth daily before breakfast. Take on empty stomach, 1/2 hr before meal. - oxybutynin XL (DITROPAN XL) 5 mg 24 hr tablet Take 1 tablet by mouth once daily. - digoxin (LANOXIN) 250 mcg (0.25 mg) tablet take 1 tablet by mouth every day - cholecalciferol (VITAMIN D3) 50 mcg (2,000 unit) tablet Take 1 tablet by mouth daily with dinner. - calcium citrate-vitamin D3 (CITRACAL PLUS D) 315 mg-5 mcg (200 unit) tab Take 1 tablet by mouth twice daily with meals. With each meal. - [id number]-FA -Fish Oil [id number] ui-af-xkx-mcg cap Take 600 mg by mouth once daily. - pyridoxine (VITAMIN B-6) 100 mg tablet Take 2 tablets by mouth twice daily. - docusate sodium 100 mg capsule Take 1 capsule by mouth twice daily as needed for Constipation. Meds Comments as of 04/11/2012: Problem List As Of Date 06/10/2024 Noted Resolved Other specified disease of sebaceous glands [L7*06/11/2008 05/05/2021 Corns and callosities [L84] 06/11/2008 05/05/2021 Contusion of foot [S90.30XA] 06/11/2008 05/05/2021 Eating disorder, unspecified [F50.9] 07/01/2009 05/12/2023 Generalized Anxiety Disorder [F41.1] 07/01/2009 Major Depressive Disorder, Recurrent Episode, M*07/01/2009 Morbid obesity (HCC) [E66.01] 10/14/2009 02/20/2014 Encounter for dietary counseling and surveillan*10/14/2009 05/05/2021 DVT (deep venous thrombosis) ([facility]) [I82.409] 01/12/2010 05/05/2021 Atrial fibrillation [I48.91] 11/03/2009 11/05/2018 Pulmonary embolism ([facility]) [I26.99] 03/01/2010 05/05/2021 Retinal detachment with retinal defect, unspeci*06/14/2010 05/05/2021 Anticoagulation monitoring, INR range 2-3 [Z79.*06/14/2010 09/28/2012 LEXIE (obstructive sleep apnea) [G47.33] 06/14/2010 Hypomagnesemia [E83.42] 06/15/2010 05/05/2021 Hypokalemia [E87.6] 06/16/2010 05/05/2021 Other and unspecified postsurgical nonabsorptio*08/26/19 11 05/05/2021 Wound check, abscess [Z51.89] 08/25/2010 05/05/2021 Varicose veins of both legs with edema [I83.893]2010 Anticoagulation management encounter [Z51.81, Z*2010 05/05/2021 skilled nursing (current) use of anticoagulants [Z79.*03/18/2011 05/05/2021 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 Normal [facility] XR Shoulder - right 2 Viewso n 05-31-2024 Imaging Result: Two views right shoulder for allowed condition of the right shoulder including right shoulder impingement syndrome right shoulder bicipital tendinitis demonstrates moderate glenohumeral degenerative joint disease and loss of joint space as well as loss of subacromial space consistent with his allowed condition of right shoulder impingement. There is no acute bony abnormalities otherwise no loose bodies diagnosis shoulder x-rays medically necessary at this time to further evaluate for next best step in treatment [facility] CNOVon 05-28-2024 CNOV Office Visit (INTMWS ) ORION DUMONT ([id number]) 1950 M Vendor Date Time Provider Department 05/28/24 3:20 PM DOMO GRANDA INTMWS During your visit today, we recorded the following information about you: Temperature Pulse Respiration Blood pressure 98.9 degrees 64/minute 20/minute 155/80 Weight 108.8 kg Domo Granda APRN.[facility] 05/28/2024 4:10 PM Signed SUBJECTIVE Orion Dumont is a 73 year old male who presents with 2 weeks of symptoms that are worsening. He reports hard to control productive cough which is purulent. Fatigue is present. Has had a fever but no current. No current sore throat. Has frontal headache with sinus congestion and drainage. No ear pain. No muscle aches no nausea vomiting or diarrhea. Abdomen is tender from frequent coughing. OTC meds/remedies that patient has tried: acetaminophen, OTC cough syrup, OTC cold medicine, and throat lozenges. High risk category assessment Age > 60 years old, heart disease He has a history of mild COPD. Notes his sister recently went on a cruise. No known sick contacts. Has had increased phlegm for 5 to 6 months prior to illness. He reports that he has never smoked. He has never used smokeless tobacco. OBJECTIVE PHYSICAL EXAM: BP 155/80 (BP Site: Left Arm, BP Position: Sitting, BP Cuff Size: Large Adult) Pulse 64 Temp 37.2 ?C (98.9 ?F) (Temporal) Resp 20 Wt 108.8 kg (239 lb 13.8 oz) BMI 31.79 kg/m? General appearance: tired/ill appearing, alert, cooperative, pleasant, in no acute distress Head: Normocephalic Eyes: conjunctiva/corneas normal Ears: R TM - nl light reflex, erythematous streaking, L TM - nl light reflex, erythematous streaking Nose: purulent rhinorrhea, mucosa erythematous and swollen Oropharynx: moist without lesions, mild erythema to GPA, no exudate Neck: supple and small, benign anterior cervical nodes bilaterally Heart: without murmur, irregularly irregular rate and rhythm Lungs: good air exchange, scattered end expiratory wheezes ASSESSMENT/PLAN (R05.1) Acute cough (primary encounter diagnosis) (J01.10) Acute non-recurrent frontal sinusitis (J44.9) Stage 1 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 ([facility]) ASSESSMENT/PLAN: 1. Acute cough - ICD9: 786.2, ICD10: R05.1 (primary diagnosis) 2. Acute non-recurrent frontal sinusitis - ICD9: 461.1, ICD10: J01.10 Possible CAP. Will check chest x-ray today. Treat as CAP. - Will begin treatment with as per antibiotic as written, see orders - Supportive care with plenty of fluids, rest, and analgesia prn. - Follow up in one week if symptoms persist or worsen. - BENZONATATE 100 MG CAPSULE - ALBUTEROL SULFATE HFA 90 MCG/ACTUATION AEROSOL INHALER - AMOXICILLIN 875 MG-POTASSIUM CLAVULANATE 125 MG TABLET - PREDNISONE 20 MG TABLET - CETIRIZINE 10 MG TABLET - XR CHEST 2V FRONTAL/LAT - DOXYCYCLINE HYCLATE 100 MG TABLET 3. Stage 1 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 ([facility]) - ICD9: 496, ICD10: J44.9 Recommend resume inhaler and other treatments as noted above, non-smoker. Domo Granda APRN.DIRECTOR OF TECHNOLOGY Medical Decision Making: Problems: Low: Acute, uncomplicated illness or injury Data: Unique test(s) ordered: 1 Risk: Moderate: Drug management Medical Decision Making Level: 3 - Low Allergies As of Date: 05/28/2024 Noted Allergy Reaction RIVAROXABAN 03/02/2013 2 - Rash SULFA (SULFONAMIDE ANTIBIOTICS) 03/18/2008 5 - Intolerance 4 - Hives Comments: Pt says that he has had silvadene cream in the past after cardioversions without side effects ADHESIVE TAPE (ROSINS) 10/08/2009 2 - Rash NIACIN 05/12/2023 14 - Other: See Comments Comments: Itching, head lam WOOL 11/25/2009 9 - Itching WOOL 03/09/2010 9 - Itching DICLOFENAC SODIUM 02/01/2016 2 - Rash Comments: Fixed drug eruption Date Reviewed: 05/28/2024 Reviewed by: Teri Cummings LPN - Fully Assessed Reason for Visit: Cough [28] Primary Visit Diagnosis:Acute cough [R05.1] Other Visit Diagnoses:Acute non-recurrent frontal sinusitis [J01.10] Stage 1 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 ([facility]) [J44.9] Order(s):benzonatate (TESSALON PERLE) 100 mg capsuleTake 1-2 capsules by mouth three times a day as needed for cough.Disp: 60 capsuleRfl: 1 albuterol HFA (PROVENTIL HFA) 90 mcg/actuation inhalerInhale 1-2 Puffs as instructed four times a day as needed for wheezing/shortness of breath.Disp: 18 gRfl: 0 amoxicillin-clavulana te potassium (AUGMENTIN) 875-125 mg per tabletTake 1 tablet by mouth two times a day for 7 days. Take with foodDisp: 14 tabletRfl: 0 predniSONE (DELTASONE) 20 mg tabletTake 1 tablet by mouth once daily for 4 days. Take daily with food.Disp: 4 tabletRfl: 0 cetirizine (ZYRTEC) 10 mg tabletTake 1 tablet by mouth once daily. for nasal drainage and phlegmDisp: 30 tabletRfl: 2 XR CHEST 2V FRONTAL/LAT [[id number]] Order #: [id number] FUTURE doxycycline (VIBRA-TABS) 100 mg tabletTake 1 tablet (more content not included)... Normal [facility] CNOV Office Visit (PSWSTR ) ORION DUMONT ([id number]) 1950 M Vendor Date Time Provider Department 05/28/24 2:30 PM QUINCY ALONZO PSWSTR During your visit today, we recorded the following information about you: Pulse Respiration Blood pressure Weight 64/minute 20/minute 155/80 108.8 kg Quincy Alonzo, TEXTILE BROKER.FACING GRINDER 05/28/2024 3:25 PM Signed FOLLOW UP - PSYCHIATRIC PROGRESS NOTE PATIENT: Orion Dumont DATE: May 28, 2024 Visit Type:In person All information is from Patient report except when noted. This evaluation is NOT intended for forensic, disability or child custody purposes. CC: Presenting today for follow up regarding psychiatric medication management. HPI: Treatment Plan from Last Visit on 10/31/2023: TREATMENT PLAN: Continue Zoloft, Lamictal, and Buspar at the same dose. Patient has been more consistent in taking his medications. Referred patient to the [facility] IOP for intensive therapy as most of his stressors are related to multiple psychosocial factors. Patient has also been encouraged to pursue individual counseling halfway. He is in agreement with this plan. Patient will reach out to the provider to share if he will be able to engage in the IOP program or not after speaking with their intake team. Today Orion shares that he is concerned that he might have pneumonia. Has an appointment with Domo Granda at 3:20 pm today. Shares that he has been consistent in taking his morning medications but tends to struggle with taking his Buspar twice a day. Shares that he feels restless. He doesn't like things getting out of place. Tends to keep cleaning and reorganizing. Shares that he lives with his sister. Sister is concerned that his medications are not as strong. Concerned about sister's memory and her ability stay independent. Sister consistently mentions that she really depends on him for support and how grateful she is to have him around. Discussed how this can feel like a lot of pressure for him. Tends to feel guilty about his behavior of believing other people on the internet. Has given people money. He is ashamed of his behavior. I know better but that doesn't stop me from doing it. He has been giving money to his daughter and son also. Does accept that he has been giving to seek validation. He does not go to sleep till late at night. Struggles to fall asleep. Finds himself over thinking at night. Unable to recall when he last slept well. Tends to comfort eat. Has gained 8 lbs. Tends to crave sugar. Denies diabetes. Lab work reviewed and it was WNL. Did not start IOP at [facility] as discussed. I don't know, I just feel like I am not worth it. Is ashamed to share his struggles. Has an appointment that he has to schedule with the [facility] customer care team coach. Encouraged patient to ask them about referrals to engage in consistent psychotherapy. Discussed the importance of engaging in therapy and the role of medication management. 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 Currently chest pain free; However, there is a high chance of recurrence since treatment has been on hold. Giving him steroid might actual (more content not included)... Normal [facility] XR CHEST 2V FRONTAL/LATon XR CHEST 2V FRONTAL/LAT * * *Final Repor t* * * DATE OF EXAM: May 28 2024 4:12PM [id number] - XR CHEST 2V FRONTAL/LAT / PROCEDURE REASON: Acute cough * * * * Physician Interpretation * * * * EXAMINATION: CHEST RADIOGRAPH (2 VIEW FRONTAL and LATERAL) CLINICAL HISTORY: Acute cough MQ: XC2_6 EXAM DATE/TIME: 05/28/2024 4:12 PM COMPARISON: Chest x-ray on 09/13/2023 RESULT: Lines, tubes, and devices: No change in position of left atrial appendage occlusion device. Lungs and pleura: No consolidation. No lung mass. No pleural effusion. No pneumothorax. Cardiomediastinal silhouette: Stable cardiomediastinal silhouette. Bones and soft tissues: The spine shows degenerative changes. IMPRESSION: Stable exam without acute findings. Pathology Laboratory Aide: EVELYNE Transcribe Date/Time: May 28 2024 4:45P Dictated by : MISSY CASTANON MD This examination was interpreted and the report reviewed and electronically signed by: MISSY CASTANON MD on May 28 2024 4:46PM EST [id number] Normal [facility] XR Chest PA and Lateralon IMPRESSION: Stable exam without acute findings. Pathology Laboratory Aide: [facility] Transcribe Date/Time: May 28 2024 4:45P Dictated by : MISSY CASTANON MD This examination was interpreted and the report reviewed and electronically signed by: MISSY CASTANON MD on May 28 2024 4:46PM EST DIVISION OF RADIOLOGY * * *Final Report* * * DATE OF EXAM: May 28 2024 4:12PM [id number] - XR CHEST 2V FRONTAL/LAT / PROCEDURE REASON: Acute cough * * * * Physician Interpretation * * * * EXAMINATION: CHEST RADIOGRAPH (2 VIEW FRONTAL & LATERAL) CLINICAL HISTORY: Acute cough MQ: XC2_6 EXAM DATE/TIME: 05/28/2024 4:12 PM COMPARISON: Chest x-ray on 09/13/2023 RESULT: Lines, tubes, and devices: No change in position of left atrial appendage occlusion device. Lungs and pleura: No consolidation. No lung mass. No pleural effusion. No pneumothorax. Cardiomediastinal silhouette: Stable cardiomediastinal silhouette. Bones and soft tissues: The spine shows degenerative changes. DIVISION OF RADIOLOGY Provider, Alec gonzalez [place] - 05/28/2024 * * *Final Report* * * DATE OF EXAM: May 28 2024 4:12PM [id number] - XR CHEST 2V FRONTAL/LAT / PROCEDURE REASON: Acute cough * * * * Physician Interpretation * * * * EXAMINATION: CHEST RADIOGRAPH (2 VIEW FRONTAL & LATERAL) CLINICAL HISTORY: Acute cough MQ: XC2_6 EXAM DATE/TIME: 05/28/2024 4:12 PM COMPARISON: Chest x-ray on 09/13/2023 RESULT: Lines, tubes, and devices: No change in position of left atrial appendage occlusion device. Lungs and pleura: No consolidation. No lung mass. No pleural effusion. No pneumothorax. Cardiomediastinal silhouette: Stable cardiomediastinal silhouette. Bones and soft tissues: The spine shows degenerative changes. IMPRESSION IMPRESSION: Stable exam without acute findings. Pathology Laboratory Aide: [facility] Transcribe Date/Time: May 28 2024 4:45P Dictated by : MISSY CASTANON MD This examination was interpreted and the report reviewed and electronically signed by: MISSY CASTANON MD on May 28 2024 4:46PM EST [facility] Radiology Study observation (narrative) Jaziel [facility] XR Chest PA and LateralOrder ed By: Cc Provider on 05-28-2024 [facility] XR Shoulder - right 2 Viewso n 05-27-2024 Radiology Study observation (narrative) [facility] DIOGENESOVavelino 05-13-2024 CNOV Office Visit (INTMWS ) ORION DUMONT ([id number]) 1950 Jim Vendor Date Time Provider Department 05/13/24 8:00 AM SHEA ETIENNE INTMWS During your visit today, we recorded the following information about you: Pulse Respiration Blood pressure Weight 94/minute 16/minute 110/62 110.9 kg Height 1.85 m Shea Etienne APRN.FACING GRINDER 05/13/2024 9:00 AM Signed Orino Dumont is a 73 year old male here for a Medicare wellness visit. Medicare Health Risk Assessment General Health Very good Exercise: Minutes/Day 0 min Exercise: Days/Week 0 days Alcohol: Daily Use Never Alcohol: Drinks/Day Patient does not drink Alcohol: 6 or more drinks Never Feel off balance No Concerns: Teeth/Dentures No Concerns: Sexual function No Troubled by feelings Anxious; Stressed Frequency: Eating healthy diet Several days ADLs requiring help None of the above Safety precautions in home/vehicle Yes Smoke, vape, chews tobacco No Difficulty hearing No Difficulty seeing No Current Providers Specialists: I have reviewed specialist-related care of the patient in the medical record. Current care team: Patient Care Team: Florian Gonzalez MD as PCP - General (Internal Medicine) Shea Etienne APRN.FACING GRINDER as Hadoop Architect (Internal Medicine) Antonio Stahl, ELOISA - Urology. Quincy Mcpherson CNP- Psychiatry. Leonides Baker MD- [facility] LuisToya celeste MD- [facility] Orthopedics. Jerry Kellogg DO- Sports Medicine ([facility]) Matt Marie MD- [facility]. Ke Pantoja MD- [facility] provider. Pelon Nascimento MD- Ophthalmology [facility] Dermatology- Dr. Amin Medical/Family history review Reviewed and updated problem list, medical/surgical/fami ly/social history, medications, and allergies. Opioid use review Opioid Medications (last 90 days) No data to display Anxiety/Depression screening Recommendation: already diagnosed with anxiety and depression; continuing current treatment plan managed by psychiatry Cognitive screening Mini Cog Score: 4 Cognitive screening reviewed and No further action needed (score 3-5). Functional Observation Was the patient's Timed Up AND Go test unsteady or >= 12 seconds? No Advance Care Planning Surrogate decision maker documented and/or advance directives scanned in chart Measurements BP 110/62 Pulse 94 Resp 16 Ht 185 cm (6' 0.84) Wt 110.9 kg (244 lb 7.8 oz) SpO2 97% BMI 32.40 kg/m? Vision Screening: Follows with optometry/ophthalmolo gy Assessment/Plan Medicare annual wellness visit, subsequent (Z00.00) - Counseled on healthy diet and regular exercise - Fall avoidance information provided - Personalized prevention plan provided - Discussed need for and benefit of weight loss. BMI 32.40 kg/(m2) Additional Concerns The following concerns were also discussed with the patient: Balanitis: intermittent despite good hygiene. Using Neosporin preventatively now with unclear benefit. Urology recommended referral to dermatology, he is considering this now. 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 Rapid weight Gain: No SOB: No Edema: Yes, secondary to venous insufficiency PND: No Orthopnea: No Recent hospitalizations/exac erbations: No Last Echo EF: LV Ejection Fraction (%) Date Value 05/09/2022 50 12/10/2020 50 COPD- stage 1: Current symptoms- denies frequent cough, wheezing or chest tightness. Symptoms are not limiting daily activities or exercise. Treatment: none Veterinary Medicine Teacher: none He has never smoked No recent exacerbations. LEXIE: treated with dental appliance. Denies snoring, un-refreshed sleep, insomnia, excessive daytime drowsiness. Anxiety/depression: medications managed by psychiatry. Patient is currently taking Buspar, Lamictal, and Zoloft Feels medication is working well: unsure, he is under a lot of stress taking care of his older sister Side effects: None Denies suicidal thoughts or plan. Has appointment with psychiatry scheduled for later this month. BP 110/62 Pulse 94 Resp 16 Ht 185 cm (6' 0.84) Wt 110.9 kg (244 lb 7.8 oz) SpO2 97% BMI 32.40 kg/m? Physical Exam Vitals reviewed. Constitutional: Appearance: Normal appearance. Cardiovascular: Rate and Rhythm: Normal rate. Rhythm irregular. Pulses: Normal pulses. Heart sounds: Normal heart sounds. Pulmonary: Effort: Pulmonary effort is normal. Breath sounds: Normal breath sounds. No wheezing, rhonchi or rales. Musculoskeletal: Right lower le+ Pitting Edema present. Left lower le+ Pitting Edema present. Skin: General: Skin is warm and dry. Neurological: Mental Status: He is alert. Psychiatric: Mood and Affect: Affect normal. Mood is anxious. ASSESSMENT/NATHANIEL (more content not included)... Normal [facility] 25(OH)D3 SerPl-mCncon 2024 25-hydroxyvitamin D3 [Mass/Vol] 43.9 ng/mL Normal 31.0-80.0 [facility] Comment on above: Order Comment: Speci men Type: BLOOD SPECIMEN Ordering Facility: [facility] Address: [address] [place] [address] Result Comment: Clas sification of 25 [place] Vitamin D status: Deficiency/Insufficiency: < or = 30 ng/ml. Sufficiency/Optimal Levels: 31-80 ng/mL Toxicity: > 100 ng/mL. Test performed by chemiluminescent immunoassay. Performed By: #### 1 989-3 #### [facility] CLIA [id number] [address] [place] [address] [place] CBC panel Auto (Bld)on 04-23 Erythrocyte distribution width (RBC) [Ratio] 13.5 % Normal 11.5-15.0 [facility] Comment on above: Order Comment: Speci men Type: BLOOD SPECIMEN Ordering Facility: [facility] Address: [address] [place] [address] Performed By: #### 5 8410-2 #### [facility] CLIA [id number] [address] [place] [address] [place] Hematocrit (Bld) [Volume fraction] 39.1 % Normal 39.0-51.0 [facility] Comment on above: Order Comment: Speci men Type: BLOOD SPECIMEN Ordering Facility: [facility] Address: [address] [place] [address] Performed By: #### 5 8410-2 #### [facility] CLIA [id number] [address] [place] [address] [place] Hemoglobin (Bld) [Mass/Vol] 12.9 g/dL Low 13.0-17.0 [facility] Comment on above: Order Comment: Speci men Type: BLOOD SPECIMEN Ordering Facility: [facility] Address: [address] [place] [address] Performed By: #### 5 8410-2 #### [facility] CLIA [id number] [address] [place] [address] [place] MCH (RBC) [Entitic mass] 30.9 pg Normal 26.0-34.0 [facility] Comment on above: Order Comment: Speci men Type: BLOOD SPECIMEN Ordering Facility: [facility] Address: [address] [place] [address] Performed By: #### 5 8410-2 #### [facility] CLIA [id number] [address] [place] [address] [place] MCHC (RBC) [Mass/Vol] 33.0 g/dL Normal 30.5-36.0 [facility] Comment on above: Order Comment: Speci men Type: BLOOD SPECIMEN Ordering Facility: [facility] Address: [address] [place] [address] Performed By: #### 5 8410-2 #### [facility] CLIA [id number] [address] [place] [address] [place] MCV (RBC) [Entitic vol] 93.8 fL Normal 80.0-100.0 [facility] Comment on above: Order Comment: Speci men Type: BLOOD SPECIMEN Ordering Facility: [facility] Address: [address] [place] [address] Performed By: #### 5 8410-2 #### [facility] CLIA [id number] [address] [place] [address] [place] Nucleated RBC (Bld) [#/Vol] 10*3/uL Normal <0.01 [facility] Comment on above: Order Comment: Speci men Type: BLOOD SPECIMEN Ordering Facility: [facility] Address: [address] [place] [address] Performed By: #### 5 8410-2 #### [facility] CLIA [id number] [address] [place] [address] [place] Platelet mean volume (Bld) [Entitic vol] 10.7 fL Normal 9.0-12.7 [facility] Comment on above: Order Comment: Speci men Type: BLOOD SPECIMEN Ordering Facility: [facility] Address: [address] [place] [address] Performed By: #### 5 8410-2 #### [facility] CLIA [id number] [address] [place] [address] [place] Platelets (Bld) [#/Vol] 206 10*3/uL Normal 150-400 [facility] Comment on above: Order Comment: Speci men Type: BLOOD SPECIMEN Ordering Facility: [facility] Address: [address] [place] [address] Performed By: #### 5 8410-2 #### [facility] CLIA [id number] [address] [place] [address] [place] RBC (Bld) [#/Vol] 4.17 10*6/uL Low 4.20-6.00 [facility] Comment on above: Order Comment: Speci men Type: BLOOD SPECIMEN Ordering Facility: [facility] Address: [address] [place] [address] Performed By: #### 5 8410-2 #### [facility] CLIA [id number] [address] [place] [address] [place] WBC (Bld) [#/Vol] 6.23 10*3/uL Normal 3.70-11.00 [facility] Comment on above: Order Comment: Speci men Type: BLOOD SPECIMEN Ordering Facility: [facility] Address: [address] [place] [address] Performed By: #### 5 8410-2 #### [facility] CLIA [id number] [address] [id number] [address] [place] Comprehensive metabolic 2000 panelon 04-23-2024 Albumin [Mass/Vol] 4.2 g/dL Normal 3.9-4.9 [facility] Comment on above: Order Comment: Speci men Type: BLOOD SPECIMEN Ordering Facility: [facility] Address: [address] [place] [address] Performed By: #### 2 4323-8 #### [facility] CLIA [id number] [address] [place] [address] [place] ALP [Catalytic activity/Vol] 79 U/L Normal 38-113 [facility] Comment on above: Order Comment: Speci men Type: BLOOD SPECIMEN Ordering Facility: [facility] Address: [address] [place] [address] Performed By: #### 2 4323-8 #### [facility] CLIA [id number] [address] [place] [address] [place] ALT [Catalytic activity/Vol] 33 U/L Normal 10-54 [facility] Comment on above: Order Comment: Speci men Type: BLOOD SPECIMEN Ordering Facility: [facility] Address: [address] [place] [address] Performed By: #### 2 4323-8 #### [facility] CLIA [id number] [address] [place] [address] [place] Anion gap [Moles/Vol] 11 mmol/L Normal 8-15 [facility] Comment on above: Order Comment: Speci men Type: BLOOD SPECIMEN Ordering Facility: [facility] Address: [address] [place] [address] Performed By: #### 2 4323-8 #### [facility] CLIA [id number] [address] [place] [address] [place] AST [Catalytic activity/Vol] 35 U/L Normal 14-40 [facility] Comment on above: Order Comment: Speci men Type: BLOOD SPECIMEN Ordering Facility: [facility] Address: [address] [place] [address] Performed By: #### 2 4323-8 #### [facility] CLIA [id number] [address] [place] [address] [place] Bilirubin [Mass/Vol] 0.7 mg/dL Normal 0.2-1.3 [facility] Comment on above: Order Comment: Speci men Type: BLOOD SPECIMEN Ordering Facility: [facility] Address: [address] [place] [address] Performed By: #### 2 4323-8 #### [facility] CLIA [id number] [address] [place] [address] [place] Calcium [Mass/Vol] 9.4 mg/dL Normal 8.5-10.2 [facility] Comment on above: Order Comment: Speci men Type: BLOOD SPECIMEN Ordering Facility: [facility] Address: [address] [place] [address] Performed By: #### 2 4323-8 #### [facility] CLIA [id number] [address] [place] [address] [place] Chloride [Moles/Vol] 107 mmol/L Normal 98-107 [facility] Comment on above: Order Comment: Speci men Type: BLOOD SPECIMEN Ordering Facility: [facility] Address: [address] [place] [address] Performed By: #### 2 4323-8 #### [facility] CLIA [id number] [address] [place] [address] [place] CO2 [Moles/Vol] 25 mmol/L Normal 22-30 [facility] Comment on above: Order Comment: Speci men Type: BLOOD SPECIMEN Ordering Facility: [facility] Address: [address] [place] [address] Performed By: #### 2 4323-8 #### [facility] CLIA [id number] [address] [place] [address] [place] Creatinine [Mass/Vol] 0.90 mg/dL Normal 0.73-1.22 [facility] Comment on above: Order Comment: Denita ramirez Type: BLOOD SPECIMEN Ordering Facility: [facility] Address: [address] [place] [address] Performed By: #### 2 4323-8 #### [facility] CLIA [id number] [address] [place] [address] [place] Creatinine and Glomerular filtration rate.predicted panel (S/P/Bld) 91 mL/min/1.73m??? Normal >=60 [facility] Comment on above: Order Comment: Denita ramirez Type: BLOOD SPECIMEN Ordering Facility: [facility] Address: [address] [place] [address] Result Comment: Elayne mated Glomerular Filtration Rate (eGFR) is calculated using the 2020 CKD-EPI creatinine equation. This equation utilizes serum creatinine, sex, and age as parameters. The creatinine assay has traceable calibration to isotope dilution-mass spectrometry. Refer to KDIGO guidelines for clinical interpretation. In patients with unstable renal function, e.g. those with acute kidney injury, the eGFR may not accurately reflect actual GFR. Performed By: #### 2 4323-8 #### [facility] CLIA [id number] [address] [place] [address] [place] Glucose [Mass/Vol] 90 mg/dL Normal 74-99 [facility] Comment on above: Order Comment: Denita ramirez Type: BLOOD SPECIMEN Ordering Facility: [facility] Address: [address] [place] [address] Result Comment: The [place] Diabetes Association (ADA) provides guidance for cutoff values for fasting glucose and random glucose. The ADA defines fasting as no caloric intake for at least 8 hours. Fasting plasma glucose results between 100 to 125 mg/dL indicate increased risk for diabetes (prediabetes). Fasting plasma glucose results greater than or equal to 126 mg/dL meet the criteria for diagnosis of diabetes. In the absence of unequivocal hyperglycemia, results should be confirmed by repeat testing. In a patient with classic symptoms of hyperglycemia or hyperglycemic crisis, random plasma glucose results greater than or equal to 200 mg/dL meet the criteria for diagnosis of diabetes. Reference: Standards of Medical Care in Diabetes 2016, [place] Diabetes Association. Diabetes Care. 2016.39(Suppl 1). Performed By: #### 2 4323-8 #### [facility] CLIA [id number] [address] [place] [address] [place] Potassium [Moles/Vol] 3.9 mmol/L Normal 3.7-5.1 [facility] Comment on above: Order Comment: Speci men Type: BLOOD SPECIMEN Ordering Facility: [facility] Address: [address] [place] [address] Performed By: #### 2 4323-8 #### [facility] CLIA [id number] [address] [place] [address] [place] Protein [Mass/Vol] 6.3 g/dL Normal 6.3-8.0 [facility] Comment on above: Order Comment: Speci men Type: BLOOD SPECIMEN Ordering Facility: [facility] Address: [address] [place] [address] Performed By: #### 2 4323-8 #### [facility] CLIA [id number] [address] [place] [address] [place] Sodium [Moles/Vol] 143 mmol/L Normal 136-144 [facility] Comment on above: Order Comment: Speci men Type: BLOOD SPECIMEN Ordering Facility: [facility] Address: [address] [place] [address] Performed By: #### 2 4323-8 #### [facility] CLIA [id number] [address] [place], [place] [address] [place] Urea nitrogen [Mass/Vol] 10 mg/dL Normal 9-24 [facility] Comment on above: Order Comment: Speci men Type: BLOOD SPECIMEN Ordering Facility: [facility] Address: [address] [place], [place] [address] Performed By: #### 2 4323-8 #### [facility] CLIA [id number] [address] [place] [address] OF [facility] HbA1c (Bld)on 04-23-2024 Average glucose Estimated from glycated hemoglobin (Bld) [Mass/Vol] 105 mg/dL Normal [facility] Comment on above: Order Comment: Denita ramirez Type: BLOOD SPECIMEN Ordering Facility: [facility] Address: [address] [place] [address] Result Comment: eAG: (Estimated average glucose) is a calculated value from HgbA1c and is sales and merchandising representative of the average blood glucose level in the last 2-3 month period. Performed By: #### 5 5454-3 #### [facility] CLIA [id number] [address] [place] [address] OF [facility] HbA1c (Bld) [Mass fraction] 5.3 % Normal 4.3-5.6 [facility] Comment on above: Order Comment: Denita ramirez Type: BLOOD SPECIMEN Ordering Facility: [facility] Address: [address] [place] [address] Result Comment: Amer [place] Diabetes Association guidelines indicate that patients with HgbA1c in the range 5.7-6.4% are at increased risk for development of diabetes, and intervention by lifestyle modification may be beneficial. HgbA1c greater or equal to 6.5% is considered diagnostic of diabetes. Performed By: #### 5 5454-3 #### [facility] CLIA [id number] [address] [place] [address] [place] Lipid 1996 panelon 5 Cholesterol [Mass/Vol] 142 mg/dL Normal <200 [facility] Comment on above: Order Comment: Denita ramirez Type: BLOOD SPECIMENOrdering Facility: [facility] Address: [address] [place] [address] Result Comment: <200 mg/dL, Desirable 200-239 mg/dL, Borderline high >239 mg/dL, High Performed By: #### 2 4331-1 ####[facility] [id number] [place] [address] [facility] [id number] [place] [address] [place] Cholesterol in HDL [Mass/Vol] 74 mg/dL Normal >39 [facility] Comment on above: Order Comment: Speci men Type: BLOOD SPECIMENOrdering Facility: [facility] Address: [address] [place] [address] Result Comment: 40-5 9 mg/dL, Acceptable >59 mg/dL, High: Negative risk factor for coronary heart disease <40 mg/dL, Low: Positive risk factor for coronary heart disease Performed By: #### 2 4331-1 ####[facility] [id number] [address] [id number] [place] [address] [place] Cholesterol in LDL [Mass/Vol] 56 mg/dL Normal <100 [facility] Comment on above: Order Comment: Mikeli men Type: BLOOD SPECIMENOrdering Facility: [facility] Address: [address] [place] [address] Result Comment: <100 mg/dL, Optimal 100-129 mg/dL, Near optimal/above optimal 130-159 mg/dL, Borderline high 160-189 mg/dL, High >189 mg/dL, Very high Secondary prevention optimal LDL Cholesterol levels are recommended to be < 70 mg/dL Performed By: #### 2 4331-1 ####[facility] [id number] [address] [id number] [place] [address] [place] Cholesterol in LDL/Cholesterol in HDL [Mass ratio] 0.76 {ratio} Normal <2.54 [facility] Comment on above: Order Comment: Mikeli men Type: BLOOD SPECIMENOrdering Facility: [facility] Address: [address] [place] [address] Result Comment: Ashli hutton: 1. National Cholesterol Education Program ATP III Guideline At-A-Glance Quick Desk Reference: National Heart, Lung, and Blood [place]. National Institutes of Health. 2001: NIH Publication No. 01-3305. 2. An International Atherosclerosis Society position paper: global recommendations for the management of dyslipidemia: executive summary, Atherosclerosis. 2014: 232(2):410-413. Performed By: #### 2 4331-1 ####[facility] [id number] [address] [id number] [place] [address] [place] Cholesterol in VLDL [Mass/Vol] 12 mg/dL Normal <30 [facility] Comment on above: Order Comment: Speci men Type: BLOOD SPECIMENOrdering Facility: [facility] Address: [address] [place] [address] Performed By: #### 2 4331-1 ####[facility] [id number] [id number] [place] [address] [place] Cholesterol non HDL [Mass/Vol] 68 mg/dL Normal <130 [facility] Comment on above: Order Comment: Speci men Type: BLOOD SPECIMENOrdering Facility: [facility] Address: [address] [place] [address] Result Comment: <130 mg/dL, Optimal 130-159 mg/dL, Near optimal/above optimal 160-189 mg/dL, Borderline high 190-219 mg/dL, High >219 mg/dL, Very high Secondary prevention optimal non HDL Cholesterol levels are recommended to be <100 mg/dL Performed By: #### 2 4331-1 ####[facility] [id number] [address] [id number] [place] [address] [place] Cholesterol.total/Choles terol in HDL [Mass ratio] 1.92 {ratio} Normal <5.10 [facility] Comment on above: Order Comment: Speci men Type: BLOOD SPECIMENOrdering Facility: [facility] Address: [address] [place] [address] Performed By: #### 2 4331-1 ####[facility] [id number] [address] [id number] [place] [address] [place] FASTING TIME 12 hrs Normal [facility] Comment on above: Order Comment: Speci men Type: BLOOD SPECIMENOrdering Facility: [facility] Address: [address] [place] [address] Performed By: #### 2 4331-1 ####[facility] [id number] [address] [id number] [place] [address] [place] Triglyceride [Mass/Vol] 60 mg/dL Normal <150 [facility] Comment on above: Order Comment: Speci men Type: BLOOD SPECIMENOrdering Facility: [facility] Address: [address] [place] [address] Result Comment: <150 mg/dL, Normal 150-199 mg/dL, Borderline high 200-499 mg/dL, High >499 mg/dL, Very high Performed By: #### 2 4331-1 ####[facility] [id number] [address] [id number] [place] [address] [place] XR Cervical spine 2 or 3 Vie wson 05-17-2023 [facility] XR Cervical spine 2 or 3 Vie wson 05-15-2023 Radiology Study observation (narrative) [facility] COLONOSCOPY SCREENINGon 02-08 [facility] UA DIP, URINE (POC)on 2022 BILIRUBIN UA (POCT) Negative Negative [facility] CLARITY UA (POCT) Slightly Cloudy Cl [facility] COLOR UA (POCT) Dark yellow [facility] GLUCOSE UA (POCT) Negative Negative mg/dL [facility] Hemoglobin Ql (U) [facility] KETONE UA (POCT) Negative Negative mg/dL [facility] LEUKOCYTES UA (POCT) Negative [facility]) Negative [facility] PH UA (POCT) 6.0 4.5 - 8.0 [facility] Protein Ql (U) Negative Negative mg/dL [facility] SPECIFIC GRAVITY UA (POCT) 1.020 1.005 - 1.030 [facility] UROBILINOGEN UA (POCT) 0.2 E.U./dL Elizabeth l E.U./dL [facility] Office Visiton 01-19-2023 Follow-up visit [id number] Orion Dumont 1950 M Date Provider Department Center 01/19/2023 30625-WSCERTOYA [facility] [place] None No family history on file Level of Service:47108 [place] OFFICE/OUTPATIENT ESTABLISHED LOW MDM 20-29 MIN Reason for Visit and Comments: Follow-up [732088] - LEFT thumb carpometacarpal arthroplasty with partial excision trapezoid on 07/01/[address] [facility] Progress Noteon 01-19-2023 Progress Note [facility] [address] [place] [address] Dept: [phone] Dept 01/19/2023 Chief Complaint Patient presents with Follow-up LEFT thumb carpometacarpal arthroplasty with partial excision trapezoid on 07/01/22 SUBJECTIVE Orion is approximately 6.5 month(s) s/p LEFT thumb carpometacarpal arthroplasty with partial excision trapezoid. He is no longer taking anything for pain. He states he has made an 75-80% improvement since his last appointment. Left thumb is now largely asymptomatic. He is able to use it without pain and is pleased with the previous injection. Has superficial skin rash along the volar base of his thumb. Also endorses right index MCP pain. States he hyperextended it recently has had pain since. OBJECTIVE Ht 6' 1 (1.854 m) Wt 210 lb (95.3 kg) BMI 27.71 kg/m? Ortho Exam Left thumb CMC nontender. No pain with CMC grind. Mild soft tissue swelling centered around the CMC joint. Right index MCP with mild soft tissue swelling. Tender over the radial collateral ligament. Mild laxity radial collateral ligament. No extensor tendon subluxation. No triggering. IMAGING NONE ASSESSMENT (M19.032) Arthritis of dsuisqps-vvzezdfoi-th apezoid joint of left hand (M18.12) Primary osteoarthritis of first carpometacarpal joint of left hand 1. Arthritis of ioorsdhq-htafsorqe-ea apezoid joint of left hand 2. Primary osteoarthritis of first carpometacarpal joint of left hand PLAN Orion is doing well with the left thumb CMC following his injection. Right index MCP sprain can be treated conservatively. OTC meds for pain. He will follow-up in apparent basis. If left thumb CMC acts up again in the future I recommend another injection. Immobilization: NO immobilization required at this point - FULL ROM encouraged without resitrictions Weight Bearing: Weight Bearing As Tolerated Rehabilitation: NO formal rehabilitation required at this point. Follow-up: Orion will followup with me on an as needed basis. He knows to call the office with any questions or concerns in the interim. Future Imaging: NONE Toya Smith MD Hand and Upper Extremity Surgery [facility] Department of Orthopaedics and Sports Medicine 01/19/2023 at 9:39 AM (Please note that portions of this note may have been completed with a voice recognition program. Efforts were made to edit the dictations but occasionally words are mis-transcribed.) Normal [facility] XR Tibia and Fibula - right AP and Lateralon 12-14-2022 IMPRESSION: No acute osseous findings. Pathology Laboratory Aide: EVELYNE Transcribe Date/Time: Dec 14 2022 8:04A Dictated by : LYUDMILA SAUCEDO MD This examination was interpreted and the report reviewed and electronically signed by: LYUDMILA SAUCEDO MD on Dec 14 2022 8:05AM [facility] DIVISION OF RADIOLOGY * * *Final Report* * * DATE OF EXAM: Dec 09 2022 3:04PM WOX 5266 - XR TIBIA FIBULA 2V AP/LAT RT / PROCEDURE REASON: Tibial pain * * * * Physician Interpretation * * * * EXAMINATION: XR TIBIA FIBULA 2V AP/LAT RT HISTORY: Pain in medial right distal lower leg x4-6 weeks, per patient. Patient accidentally hit leg on sharp edge of bed frame and leg is still red and tender to the touch in that area. Tibial pain . TECHNIQUE: XR TIBIA FIBULA 2V AP/LAT RT Laterality: RIGHT Number of different views (projections): 2 M: XB_1 COMPARISON: RESULT: Minimal knee and ankle degenerative changes. Vascular calcifications. No acute bone destruction. No acute fracture or dislocation. There are no bony erosions. DIVISION OF RADIOLOGY Provider, [facility] - 12/14/2022 * * *Final Report* * * DATE OF EXAM: Dec 09 2022 3:04PM WOX 5266 - XR TIBIA FIBULA 2V AP/LAT RT / PROCEDURE REASON: Tibial pain * * * * Physician Interpretation * * * * EXAMINATION: XR TIBIA FIBULA 2V AP/LAT RT HISTORY: Pain in medial right distal lower leg x4-6 weeks, per patient. Patient accidentally hit leg on sharp edge of bed frame and leg is still red and tender to the touch in that area. Tibial pain . TECHNIQUE: XR TIBIA FIBULA 2V AP/LAT RT Laterality: RIGHT Number of different views (projections): 2 M: XB_1 COMPARISON: RESULT: Minimal knee and ankle degenerative changes. Vascular calcifications. No acute bone destruction. No acute fracture or dislocation. There are no bony erosions. IMPRESSION IMPRESSION: No acute osseous findings. Pathology Laboratory Aide: PSCB Transcribe Date/Time: Dec 14 2022 8:04A Dictated by : LYUDMILA SAUCEDO MD This examination was interpreted and the report reviewed and electronically signed by: LYUDMILA SAUCEDO MD on Dec 14 2022 8:05AM EST [facility] XR Tibia and Fibula - right AP and LateralOrdered By: Ccf Provider on 12-14-2022 [facility] C-REACTIVE PROTEIN (CRP)on 0 12-10-2022 CRP [Mass/Vol] <0.9 mg/dL [facility] CBC panel Auto (Bld)on 12-10 Erythrocyte distribution width (RBC) [Ratio] 14.7 % 11.5 - 15.0 % [facility] Hematocrit (Bld) [Volume fraction] 44.2 % 39.0 - 51.0 % [facility] Hemoglobin (Bld) [Mass/Vol] 14.3 g/dL 13.0 - 17.0 g/dL [facility] MCH (RBC) [Entitic mass] 31.3 pg 26. 0 - 34.0 pg [facility] MCHC (RBC) [Mass/Vol] 32.4 g/dL 30.5 - 36.0 g/dL [facility] MCV (RBC) [Entitic vol] 96.7 fL 80.0 - 100.0 fL [facility] Nucleated RBC (Bld) [#/Vol] <0.01 k/uL [facility] Platelet mean volume (Bld) [Entitic vol] 11.8 fL 9.0 - 12.7 fL [facility] Platelets (Bld) [#/Vol] 219 10*3/uL 150 - 400 k/uL [facility] RBC (Bld) [#/Vol] 4.57 10*6/uL 4.20 - 6.0 0 m/uL [facility] WBC (Bld) [#/Vol] 7.47 10*3/uL 3.70 - 11. 00 k/uL [facility] Comprehensive metabolic 2000 panelon 12-10-2022 Albumin [Mass/Vol] 4.4 g/dL 3.9 - 4.9 g/dL [facility] ALP [Catalytic activity/Vol] 51 U/L 38 - 113 U/L [facility] ALT [Catalytic activity/Vol] 64 U/L High 10 - 54 U/L [facility] Anion gap [Moles/Vol] 9 mmol/L 9 - 18 mmol/L [facility] AST [Catalytic activity/Vol] 54 U/L High 14 - 40 U/L [facility] Bilirubin [Mass/Vol] 0.4 mg/dL 0.2 - 1 .3 mg/dL [facility] Calcium [Mass/Vol] 9.5 mg/dL 8.5 - 10. 2 mg/dL [facility] Chloride [Moles/Vol] 103 mmol/L 97 - 10 5 mmol/L [facility] CO2 [Moles/Vol] 25 mmol/L 22 - 30 mmol/L [facility] Creatinine [Mass/Vol] 1.17 mg/dL 0.73 - 1.22 mg/dL [facility] Estimated Glomerular Filtration Rate 67 mL/min/1.73m >=60 mL/min/1.73m [facility] Glucose [Mass/Vol] 123 mg/dL High 74 - 99 mg/dL [facility] Potassium [Moles/Vol] 5.1 mmol/L 3.7 - 5.1 mmol/L [facility] Protein [Mass/Vol] 6.2 g/dL Low 6.3 - 8.0 g/dL [facility] Sodium [Moles/Vol] 137 mmol/L 136 - 144 mmol/L [facility] Urea nitrogen [Mass/Vol] 20 mg/dL 9 - 24 mg/d L [facility] ESR Westergren method (Bld) [Velocity]on 12-10-2022 ESR (Bld) [Velocity] 2 mm/h 0 - 15 mm/hr Cl [facility] XR Tibia and Fibula - right AP and Lateralon 12-09-2022 Radiology Study observation (narrative) [facility] Progress Noteon 11-23-2022 Progress Note [facility] THERAPY AT [address] [address] Discharge Notification Patient Name: Orion Dumont : 1950 Today's Date: 11/23/2022 Patient has not been seen since 10/12/22 when he requested holding treatment until follow up with physician 10/27/22. No further contact with patient, no additional treatment scheduled. Please refer to OT Re-evaluation of 10/12/22 for specific details.. Per policy, this patient will be discharged due to inactive file. Thank you for this referral. For any questions on this patient?s course of therapy, please call the clinic for clarification. Rosa Jameson, OT Normal [facility] UA DIP, URINE (POC)on 2022 BILIRUBIN UA (POCT) Negative Negative [facility] CLARITY UA (POCT) [facility] COLOR UA (POCT) Yellow [facility] GLUCOSE UA (POCT) Negative Negative mg/dL [facility] HEMOGLOBIN/BLOOD UA (POCT) Negative Negative [facility] KETONE UA (POCT) Negative Negative mg/dL [facility] LEUKOCYTES U[facility] (POCT) Negative [facility] NITRITE UA (POCT) Negative Negative [facility] PH UA (POCT) 5.5 4.5 - 8.0 [facility] Protein Ql (U) Negative Negative mg/dL [facility] SPECIFIC GRAVITY UA (POCT) 1.020 1.005 - 1.030 [facility] UROBILINOGEN UA (POCT) 0.2 E.U./dL Elizabeth l E.U./dL [facility] Office Visiton 10-27-2022 Follow-up visit [id number] TimOrion 1950 M Date Provider Department Center 10/27/2022 [id number] SMITH [facility] [place] None No family history on file Level of Service:[id number] [place] OFFICE/OUTPATIENT ESTABLISHED LOW MDM 20-29 MIN (25) Reason for Visit and Comments: Follow-up [[id number]] - DOS 07/01/2022 LEFT thumb carpometacarpal arthroplasty with partial excision trapezoid Normal [facility] Progress Noteon 10-27-2022 Progress Note [facility] [address] [place] [address] Dept: [phone] Dept 10/27/2022 Chief Complaint Patient presents with Follow-up DOS 07/01/2022 LEFT thumb carpometacarpal arthroplasty with partial excision trapezoid TARIQ Orion returns today in follow-up regarding left thumb. He is approximately 4 months s/p left thumb carpometacarpal arthroplasty with partial excision trapezoid. His last appointment was approximately 2.5 months ago. At his last appointment he was treated with formal OT and splinting. Continues to endorse left thumb pain near his CMC joint. Feels that it has remained slightly swollen. Denies any redness or warmth. Continues to wear his splint. Past Medical History: Diagnosis Date Atrial fibrillation (CMS/HCC) (HCC) Delayed emergence from general anesthesia GERD (gastroesophageal reflux disease) History of transfusion Hx of deep venous thrombosis Hypotension Sleep apnea Social History Socioeconomic History Marital status: Spouse name: Not on file Number of children: Not on file Years of education: Not on file Highest education level: Not on file Occupational History Not on file Tobacco Use Smoking status: Never Smokeless tobacco: Never Vaping Use Vaping Use: Never used Substance and Sexual Activity Alcohol use: Not Currently Drug use: Not Currently Sexual activity: Not on file Other Topics Concern Not on file Social History Narrative Not on file Social Determinants of Health Financial Resource Strain: Not on file Food Insecurity: Not on file Transportation Needs: Not on file Physical Activity: Not on file Stress: Not on file Social Connections: Not on file Intimate Partner Violence: Not on file Housing Stability: Not on file OBJECTIVE BP 104/66 Ht 6' 1 (1.854 m) Wt 221 lb (100 kg) BMI 29.16 kg/m? Ortho Exam Well-healed incision. No redness or warmth around the thumb. Excellent thumb CMC motion. No pain or appreciable crepitation with CMC grind. No evidence of MCP instability. IMAGING XRay: None NCT/EMG (Copied Impression) none PROCEDURE Procedure Note: Small Joint Injection The LEFT thumb CMC was identified as the injection site. I discussed the risks/benefits of a corticosteroid injection to include but not be limited to infection, subcutaneous fat atrophy, elevated blood glucose, local redness and pain. After discussion of the risk/benefits the patient elected to proceed. Under sterile conditions, the joint was injected with a mixture of 0.5 mL of 1% Lidocaine and 0.5 mL of Celestone (6mg/ml) without complication. A sterile bandage was applied. Orion tolerated the procedure well without complication. I advised Orion of the expected response, possible reactions and the instructions for care of his hand. ASSESSMENT (M19.032) Arthritis of oabqxxaz-lfimrgmpd-uc apezoid joint of left hand (M18.12) Primary osteoarthritis of first carpometacarpal joint of left hand 1. Arthritis of osqlaavh-hdrzaipnf-ak apezoid joint of left hand 2. Primary osteoarthritis of first carpometacarpal joint of left hand PLAN Unfortunately Orion continues to endorse left thumb pain status post CMC arthroplasty. Previous x-rays demonstrated first metacarpal subsidence. We discussed injection versus consideration of revision surgery. The time being he would like to avoid additional surgery and opted for the injection which was provided today in the office. He will follow-up in 3 months time to reassess how he is doing. Immobilization: Custom OT splint: Continue with current use Weight Bearing: Weight Bearing As Tolerated through left sided upper extremity Rehabilitation: Continue OT. Follow-up: Orion will followup with me in 3 months. He knows to call the office with any questions or concerns in the interim. Future Imaging: NONE Toya Smith MD Hand and Upper Extremity Surgery [facility] Department of Orthopaedics and Sports Medicine 10/27/2022 at 9:47 AM (Please note that portions of this note may have been completed with a voice recognition program. Efforts were made to edit the dictations but occasionally words are mis-transcribed.) Normal [facility] Progress Noteon 10-12-2022 Progress Note [facility] THERAPY AT [place] [address] [place] [address] Dept: [phone] Dept OCCUPATIONAL THERAPY RE-EVALUATION Patient Name: Orion Dumont : 1950 Date of Service: 10/12/2022 Referring Provider: Berenice Hanks PA-C Diagnosis: Arthritis of ndewjcmi-hgldckihj-yo apezoid joint of left hand Reason for referral/Mechanism of injury: s/p Left thumb carpometacarpal arthroplasty and intrinsic release, partial excision trapezoid, DOS 07/01/2022 Precautions/Red Flags: Yes UE weight bearing status: Non-weight bearing thru left hand post-surgical precautions: No CMC ROM until 6 weeks post op prosthesis/orthosis used: custom thumb spica splint Patient Preferences: Orion will transfer to [facility] due to proximity to home in [place] Subjective General Comments: Continues to report higher than expected pain in wrist 09/17, high pain in cervical spine, pain in thumb is sensitive with strengthening exercises Pain: Current: 2/10 Best: 2/10 Worst: /10 Current Level of Function: limited lifting, independent in self-care, difficulty picking up small objects opening bags that required bilateral pinch ie. [place] chip bags etc. Patient?s Stated Goal: relieve pain, gain strength for grasp and pinch Outcome Measures QuickDASH: 36 Objective CURRENT THUMB ROM Date Recorded: 10/12/22 LEFT Thumb CMC (nl 45?/60?) MCP (nl 10?H/60?) IP (nl 15?H/80?) Palmar Abduction 45 Extension 0? 15? hyperextension Radial Abduction Limited to 35? Flexion 30 60? *(Passive values entered only if different than active; otherwise = AROM) CURRENT WRIST ROM Date Recorded: 10/12/22 Left Flexion 55 Extension 68 Supination WNL Pronation WNL L HAND SENSORY TABLE LEFT Hand Swisshome Bindu Thumb Index Long Ring Small r u r u r u r u r u 2.83 2.83 2.83 2.83 2.83 2.83 2.83 2.83 2.83 2.83 Median Ulnar Valance Cutter Strength: Right Left Trial 1 60 lbs 40 lbs Pinch Strength lateral pinch: Right Left 18 lbs 10 lbs Pinch Strength 3 jaw-narciso: Right Left 16 lbs 5 lbs 7/10 pain Crepitus with thumb ROM at CMC Assessment Patient with continued unexpected pain in wrist and thumb. Wrist ROM WFL, thumb limited at MP however improves within treatment session allowing opposition to base of small finger. Patient wishes to hold treatment until follow-up with physician 10/27/22. Valance Cutter and pinch improved over last assessment. Rehab Potential: Fair Goals Active General/Ortho Patient will be independent with HEP. (Progressing) Start: 07/11/22 Expected End: 11/11/22 Patient will report decreased pain at 2/10 in left thumb to be able to complete HEP, therapy ROM. (Not Progressing) Start: 07/11/22 Expected End: 11/11/22 Patient will increase ROM of left thumb to be able to full MP and IP AROM WNL, progress to CMC ROM when initiation at 6 weeks post op to gain full AROM for opposition to base of small of little finger (Progressing) Start: 07/11/22 Expected End: 11/11/22 Patient will demonstrate independence with provided splint education. for don/doff, wearing schedule, care of splinting (Completed) Start: 07/11/22 Expected End: 09/07/22 Resolved: 08/10/22 Patient will adhere to prescribed precautions/restricti ons for restrictions, splint wear and non weight bearing to protect healing structures (Completed) Start: 07/11/22 Expected End: 10/12/22 Resolved: 09/14/22 Plan Frequency and Duration: hold x 2 weeks and re-assessment if additional treatment ordered Risks and benefits were discussed with the patient and/or family, and the patient and/or family participated with the plan of care and agrees. Treatment Therapeutic Exercise # of Activities: 4 Therapeutic Exercise Activity 1: ROM of thumb Activity 1 Comment: CMC, MP and IP ROM, MP stiffness improved with AAROM, manual therapy Therapeutic Exercise Activity 2: wrist ROM Activity 2 Comment: AROM/AAROM wrist flexion and extension, ulnar sided wrist pain Therapeutic Exercise Acitivity 3: finger flexion/extension Activity 3 Comment: full active finger flexion and extension Soft Tissue Mobilization Location: long sustained stretching of web space between thumb and index finger to improve ability to grasp larger objectis Joint Mobilization Location: left thumb MCP joint Comments: to improve thumb flexion Taping Location: Thumb CMC joint Comments: to assist in thumb stabilization and reduce pain Time Entry Total Treatment Time Start Time: 334 Stop Time: 404 Time Calculation (min): 30 min OT Therapeutic Procedures Time Entry Therapeutic Exercise Time Entry: 15 Manual Therapy Time Entry: 13 Rosa Jameson OT Normal [facility] Progress Noteon 09-30-2022 Progress Note [facility] THERAPY AT [address] [place] [address] Dept: [phone] Dept OCCUPATIONAL THERAPY TREATMENT Patient Name: Orion Dumont : 1950 Date of Service: 09/30/2022 Referring Provider: Berenice Hanks PA-C 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 Pt reports 2-3/10 in the proximal left thumb. Pt reports he is still unable to grasp large objects e.g. larger cups Compliance with HEP: Yes Objective Objective measures not assessed. Assessment Skilled occupational therapy interventions utilized to improve patient?s impairments and work towards established goals. Patient response to treatment: Pt reported high neck pain today and was very distracted by it. Reviewed home program verbally, Pt reported compliance. Educated Pt in benefit of working more on MCP flexion to improve stabilization of CMC. Also educated on stretching of web space to improve ability to grasp large objects. Used Kinesiotape to further stabilize MCP joint. Pt reported taping reduced pain. Good progress towards goals. Patient will benefit from continued occupational therapy to restore left hand function The rationale for today?s treatment was explained to the patient. Verbal cues were provided for correct form with all exercises. Advised patient to continue with Home Exercise Program (HEP). Goals General/Ortho Patient will be independent with HEP. (Progressing) Start: 07/11/22 Expected End: 10/12/22 Patient will report decreased pain at 2/10 in left thumb to be able to complete HEP, therapy ROM. (Progressing) Start: 07/11/22 Expected End: 10/12/22 Patient will increase ROM of left thumb to be able to full MP and IP AROM WNL, progress to CMC ROM when initiation at 6 weeks post op to gain full AROM for opposition to base of small of little finger (Progressing) Start: 07/11/22 Expected End: 10/12/22 Plan Plan for next session: reassess with objective measures. Treatment Therapeutic Exercise # of Activities: 2 Therapeutic Exercise Activity 1: PROM of MCP joint of left thumb Activity 1 Comment: to increase flexion Therapeutic Exercise Activity 2: resisted index finger ABD to strengthen adductor pollicis Soft Tissue Mobilization Location: long sustained stretching of web space between thumb and index finger to improve ability to grasp larger objectis Joint Mobilization Location: left thumb MCP joint Comments: to improve thumb flexion Taping Location: Thumb CMC joint Comments: to assist in thumb stabilization and reduce pain Time Entry Total Treatment Time Start Time: 1200 Stop Time: 1230 Time Calculation (min): 30 min OT Therapeutic Procedures Time Entry Therapeutic Exercise Time Entry: 12 Manual Therapy Time Entry: 18 Mohinder Rodriguez OT Normal [facility] Progress Noteon 09-21-2022 Progress Note [facility] AT [address] [place] [address] Dept: [phone] Dept OCCUPATIONAL THERAPY TREATMENT Patient Name: Orion Dumont : 1950 Date of Service: 09/21/2022 Referring Provider: Berenice Hanks PA-C Diagnosis: Arthritis of jxjnevtn-ppzioxmlz-tj apezoid joint of left hand Reason for referral/Mechanism of injury: s/p Left thumb carpometacarpal arthroplasty and intrinsic release, partial excision trapezoid, DOS 07/01/2022 Precautions/Red Flags: Yes UE weight bearing status: Non-weight bearing thru left hand post-surgical precautions: No CMC ROM until 6 weeks post op prosthesis/orthosis used: custom thumb spica splint Patient Preferences: Orion will transfer to [facility] due to proximity to home in [place] Subjective Thumb feels ok, motion is adequate, wrist pain at ulnar styloid 6/10 Compliance with HEP: Yes Objective Able to oppose to base of small finger following treatment Valance Cutter Strength: Left Trial 1 32 lbs Pinch Strength lateral pinch: Left 6 lbs Pinch Strength 3 jaw-narciso: Left 6 lbs Assessment Skilled occupational therapy interventions utilized to improve patient?s impairments and work towards established goals. Patient response to treatment: Slow progress with patient noting high pain in cervical spline limiting comfort in all postures and interfering with sleep; patient has MRI this p.m. Thumb composite flexion to base of small finger despite limited MP flexion actively. Patient having difficulty weaning form splint due to increased pain with activity. Patient will benefit from continued occupational therapy to pain reduction, STM, strengthening The rationale for today?s treatment was explained to the patient. Verbal cues were provided for correct form with all exercises. Advised patient to continue with Home Exercise Program (HEP). Goals General/Ortho Patient will be independent with HEP. (Progressing) Start: 07/11/22 Expected End: 10/12/22 Patient will report decreased pain at 2/10 in left thumb to be able to complete HEP, therapy ROM. (Not Progressing) Start: 07/11/22 Expected End: 10/12/22 Patient will increase ROM of left thumb to be able to full MP and IP AROM WNL, progress to CMC ROM when initiation at 6 weeks post op to gain full AROM for opposition to base of small of little finger (Progressing) Start: 07/11/22 Expected End: 10/12/22 Plan Plan for next session: functional integration, strengthening Treatment Therapeutic Exercise # of Activities: 4 Therapeutic Exercise Activity 1: ROM of thumb Activity 1 Comment: CMC, MP and IP ROM, MP stiffness improved with AAROM, manual therapy Therapeutic Exercise Activity 2: wrist ROM Activity 2 Comment: AROM/AAROM wrist flexion and extension, ulnar sided wrist pain Therapeutic Exercise Acitivity 3: finger flexion/extension Activity 3 Comment: full active finger flexion and extension Therapeutic Activity Therapeutic Activity 1: functional pinch and object manipulation Activity 1 Comment: pain and weakness limits patient IASTM Location: left thumb MP joint, dorsal thumb and incisional scar, ulnar wrist Comments: tolerated well, improved MP flexion achieved, wrist pain slightly reduced Time Entry Total Treatment Time Start Time: 0930 Stop Time: 1000 Time Calculation (min): 30 min OT Therapeutic Procedures Time Entry Therapeutic Exercise Time Entry: 6 Therapeutic Activity Time Entry: 12 Manual Therapy Time Entry: 10 Rosa Jameson OT Normal [facility] Progress Noteon 09-14-2022 Progress Note [facility] THERAPY AT [address] [place] [address] Dept: [phone] Dept OCCUPATIONAL THERAPY TREATMENT Patient Name: Orion Dumont : 1950 Date of Service: 09/14/2022 Referring Provider: Berenice Hanks PA-C Diagnosis: Arthritis of awcsjmpk-vffbsvlbz-ps apezoid joint of left hand Reason for referral/Mechanism of injury: s/p Left thumb carpometacarpal arthroplasty and intrinsic release, partial excision trapezoid, DOS 07/01/2022 Precautions/Red Flags: Yes UE weight bearing status: Non-weight bearing thru left hand post-surgical precautions: No CMC ROM until 6 weeks post op prosthesis/orthosis used: custom thumb spica splint Patient Preferences: Orion will transfer to [facility] due to proximity to home in [facility] I feel like I've done too much, lifting and such ; now soreness New onset of pain at ulnar styloid with wrist flexion and extension Compliance with HEP: Yes Objective CURRENT THUMB ROM Date Recorded: 09/14/22 LEFT Thumb CMC (nl 45?/60?) MCP (nl 10?H/60?) IP (nl 15?H/80?) Palmar Abduction 42 Extension 0? 10? hyperextension Radial Abduction 40 Flexion 25 50 *(Passive values entered only if different than active; otherwise = AROM) CURRENT WRIST ROM Date Recorded: 09/14/22 Left Flexion 60 Extension 57 Valance Cutter Strength: Right Left Trial 1 60 lbs 34 lbs Pinch Strength lateral pinch: Right Left 18 lbs 10 lbs Pinch Strength 3 jaw-narciso: Right Left 18 lbs 8 lbs Assessment Skilled occupational therapy interventions utilized to improve patient?s impairments and work towards established goals. Patient response to treatment: Patient with general achiness of left thumb and wrist which attributes to over work and lifting, new onset of ulnar wrist pain. No significant changes in ROM or strength.Thumb MP stiffness upon presentation, improved within treatment session to baseline. Patient will benefit from continued occupational therapy to reduce pain, improve greens cutter The rationale for today?s treatment was explained to the patient. Verbal cues were provided for correct form with all exercises. Advised patient to continue with Home Exercise Program (HEP). Goals General/Ortho Patient will be independent with HEP. (Progressing) Start: 07/11/22 Expected End: 10/12/22 Patient will report decreased pain at 2/10 in left thumb to be able to complete HEP, therapy ROM. (Not Progressing) Start: 07/11/22 Expected End: 10/12/22 Patient will increase ROM of left thumb to be able to full MP and IP AROM WNL, progress to CMC ROM when initiation at 6 weeks post op to gain full AROM for opposition to base of small of little finger (Progressing) Start: 07/11/22 Expected End: 10/12/22 Plan Plan for next session: ROM, strengthening Treatment Therapeutic Exercise # of Activities: 4 Therapeutic Exercise Activity 1: ROM of thumb Activity 1 Comment: CMC, MP and IP ROM, MP stiffness improved with AAROM, manual therapy Therapeutic Exercise Activity 2: wrist ROM Activity 2 Comment: AROM/AAROM wrist flexion and extension, ulnar sided wrist pain Therapeutic Exercise Acitivity 3: finger flexion/extension Activity 3 Comment: full active finger flexion and extension IASTM Location: left thumb MP joint, dorsal thumb and incisional scar, ulnar wrist Comments: tolerated well, improved MP flexion achieved, wrist pain slightly reduced Time Entry Total Treatment Time Start Time: 1200 Stop Time: 1230 Time Calculation (min): 30 min OT Therapeutic Procedures Time Entry Therapeutic Exercise Time Entry: 20 Manual Therapy Time Entry: 8 Rosa Jameson OT Normal [facility] Progress Noteon 09-07-2022 Progress Note [facility] THERAPY AT [address] [place] [address] Dept: [phone] Dept OCCUPATIONAL THERAPY RE-EVALUATION Patient Name: Orion Dumont : 1950 Date of Service: 09/07/2022 Referring Provider: Berenice Hanks PA-C Diagnosis: Arthritis of kcsrzvac-xiwdxfifn-fv apezoid joint of left hand Reason for referral/Mechanism of injury: s/p Left thumb carpometacarpal arthroplasty and intrinsic release, partial excision trapezoid, DOS 07/01/2022 Precautions/Red Flags: Yes UE weight bearing status: Non-weight bearing thru left hand post-surgical precautions: No CMC ROM until 6 weeks post op prosthesis/orthosis used: custom thumb spica splint Patient Preferences: Orion will transfer to [place] location due to proximity to home in [place] Subjective General Comments: pain is improving, exercises with theraputty cause discomfort Pain: Current: 04/19 Best: 04/19 Worst: 09/17 Current Level of Function: improved functional integration, able to use 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 10? hyperextension Radial Abduction 35 Flexion 35? 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 Recommend continued OT for optimizing functional strengthening and consistent thumb flexion at MP joint. Rehab Potential: Good Goals Active General/Ortho Patient will be independent with HEP. (Progressing) Start: 07/11/22 Expected End: 09/07/22 Patient will report decreased pain at 2/10 in left thumb to be able to complete HEP, therapy ROM. (Progressing) Start: 07/11/22 Expected End: 09/07/22 Patient will increase ROM of left thumb to be able to full MP and IP AROM WNL, progress to CMC ROM when initiation at 6 weeks post op to gain full AROM for opposition to base of small of little finger (Progressing) Start: 07/11/22 Expected End: 09/07/22 Patient will demonstrate independence with provided splint education. for don/doff, wearing schedule, care of splinting (Completed) Start: 07/11/22 Expected End: 09/07/22 Met: 08/10/22 Patient will adhere to prescribed precautions/restricti ons for restrictions, splint wear and non weight bearing to protect healing structures (Progressing) Start: 07/11/22 Expected End: 09/07/22 Plan Frequency and Duration: 1/wk for 4 weeks Therapeutic Contents: client education, home exercise program, manual therapy techniques, therapeutic activities, and therapeutic exercise Plan for next session: ROM, strengthening Risks and benefits were discussed with the patient and/or family, and the patient and/or family participated with the plan of care and agrees. Treatment Therapeutic Exercise # of Activities: 4 Therapeutic Exercise Activity 1: ROM of thumb Activity 1 Comment: CMC, MP and IP ROM Therapeutic Exercise Activity 2: wrist ROM Activity 2 Comment: AROM/AAROM wrist flexion and extension Therapeutic Exercise Acitivity 3: finger flexion/extension Activity 3 Comment: full active finger flexion and extension Therapeutic Exercise Activity 4: Theraputty Activity 4 Comment: Yellow - greens cutter/pinch/extension/ pull Therapeutic Activity # of Activities: 1 Therapeutic Activity 1: Comfort Cool splint fitting, education Activity 1 Comment: review of precautions, wearing recommendation Time Entry Total Treatment Time Start Time: 0930 Stop Time: 1005 Time Calculation (min): 35 min OT Therapeutic Procedures Time Entry Therapeutic Exercise Time Entry: 25 Therapeutic Activity Time Entry: 10 Rosa Jameson OT Normal [facility] Progress Noteon 08-31-2022 Progress Note [facility] THERAPY AT [place] [address] [place] [address] Dept: [phone] Dept OCCUPATIONAL THERAPY TREATMENT Patient Name: Orion Dumont : 1950 Date of Service: 08/31/2022 Referring Provider: Berenice Hanks PA-C Diagnosis: Arthritis of cgjomfjo-jvtjvgvfk-xv apezoid joint of left hand Reason for referral/Mechanism of injury: s/p Left thumb carpometacarpal arthroplasty and intrinsic release, partial excision trapezoid, DOS 07/01/2022 Precautions/Red Flags: Yes UE weight bearing status: Non-weight bearing thru left hand post-surgical precautions: No CMC ROM until 6 weeks post op prosthesis/orthosis used: custom thumb spica splint Patient Preferences: Orion will transfer to [place] location due to proximity to home in [place] Subjective Has been sore through volar wrist. 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 Patient response to treatment: Patient progressing toward's goals with thumb ROM, though still hasn't achieved full motion. Tolerated initiation of light strengthening with minimal c/o pain or difficulty. Does report general discomfort through palm and wrist, but advised that it will likely continue to improve the stronger he gets and more motion he gains. Patient will benefit from continued occupational therapy to progress ROM and strengthen. The rationale for today?s treatment was explained to the patient. Verbal cues were provided for correct form with all exercises. Advised patient to continue with Home Exercise Program (HEP). Goals General/Ortho Patient will be independent with HEP. (Progressing) Start: 07/11/22 Expected End: 09/07/22 Patient will report decreased pain at 2/10 in left thumb to be able to complete HEP, therapy ROM. (Progressing) Start: 07/11/22 Expected End: 09/07/22 Patient will increase ROM of left thumb to be able to full MP and IP AROM WNL, progress to CMC ROM when initiation at 6 weeks post op to gain full AROM for opposition to base of small of little finger (Progressing) Start: 07/11/22 Expected End: 09/07/22 Patient will adhere to prescribed precautions/restricti ons for restrictions, splint wear and non weight bearing to protect healing structures (Progressing) Start: 07/11/22 Expected End: 09/07/22 Plan Plan for next session: Initiate strengthening Treatment Therapeutic Exercise # of Activities: 4 Therapeutic Exercise Activity 1: ROM of thumb Activity 1 Comment: CMC, MP and IP ROM Therapeutic Exercise Activity 2: wrist ROM Activity 2 Comment: AROM/AAROM wrist flexion and extension Therapeutic Exercise Acitivity 3: finger flexion/extension Activity 3 Comment: full active finger flexion and extension Therapeutic Exercise Activity 4: Theraputty Activity 4 Comment: Yellow - greens cutter/pinch/extension/ pull Therapeutic Activity Therapeutic Activity 1: In hand manipulation Activity 1 Comment: Small pegs - translation/rotation/ shift, moderate difficulty. Time Entry Total Treatment Time Start Time: 1300 Stop Time: 1330 Time Calculation (min): 30 min OT Therapeutic Procedures Time Entry Therapeutic Exercise Time Entry: 20 Therapeutic Activity Time Entry: 10 ROBERT Vidal [facility] Progress Noteon 08-24-2022 Progress Note [facility] THERAPY AT [address] [place] [address] Dept: [phone] Dept OCCUPATIONAL THERAPY TREATMENT Patient Name: Orion Dumont : 1950 Date of Service: 08/24/2022 Referring Provider: Berenice Hanks PA-C Diagnosis: Arthritis of fijoqepi-dcldbzicn-wp apezoid joint of left hand Reason for referral/Mechanism of injury: s/p Left thumb carpometacarpal arthroplasty and intrinsic release, partial excision trapezoid, DOS 07/01/2022 Precautions/Red Flags: Yes UE weight bearing status: Non-weight bearing thru left hand post-surgical precautions: No CMC ROM until 6 weeks post op prosthesis/orthosis used: custom thumb spica splint Patient Preferences: Orion will transfer to [facility] due to proximity to home in [place] Subjective Little more movement, little less pain, 3-4/10 worst pain; still using roll on pain reliever; 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 10? hyperextension Radial Abduction 40 Flexion 30? 40 passive 33? 50 passive *(Passive values entered only if different than active; otherwise = AROM) Assessment Skilled occupational therapy interventions utilized to improve patient?s impairments and work towards established goals. Patient response to treatment: Improved ROM, PROM > AROM. Reduced pain. Per protocol will initiate strengthening next session. Patient will benefit from continued occupational therapy to progress to strengthening The rationale for today?s treatment was explained to the patient. Verbal cues were provided for correct form with all exercises. Advised patient to continue with Home Exercise Program (HEP). Goals General/Ortho Patient will be independent with HEP. (Progressing) Start: 07/11/22 Expected End: 09/07/22 Patient will report decreased pain at 2/10 in left thumb to be able to complete HEP, therapy ROM. (Progressing) Start: 07/11/22 Expected End: 09/07/22 Patient will increase ROM of left thumb to be able to full MP and IP AROM WNL, progress to CMC ROM when initiation at 6 weeks post op to gain full AROM for opposition to base of small of little finger (Progressing) Start: 07/11/22 Expected End: 09/07/22 Patient will adhere to prescribed precautions/restricti ons for restrictions, splint wear and non weight bearing to protect healing structures (Progressing) Start: 07/11/22 Expected End: 09/07/22 Plan Plan for next session: initiate strengthening, reassessment Treatment Therapeutic Exercise # of Activities: 4 Therapeutic Exercise Activity 1: ROM of thumb Activity 1 Comment: CMC, MP and IP ROM Therapeutic Exercise Activity 2: wrist ROM Activity 2 Comment: AROM/AAROM wrist flexion and extension Therapeutic Exercise Acitivity 3: finger flexion/extension Activity 3 Comment: full active finger flexion and extension IASTM Location: left thumb MP joint, dorsal thumb and incisional scar Comments: tolerated well, improved MP flexion achieved Time Entry Total Treatment Time Start Time: 834 Stop Time: 904 Time Calculation (min): 30 min OT Therapeutic Procedures Time Entry Therapeutic Exercise Time Entry: 19 Manual Therapy Time Entry: 8 Rosa Jameson OT Normal [facility] Progress Noteon 08-17-2022 Progress Note [facility]ERAPY AT [facility] [address] [place] [address] Dept: [phone] Dept OCCUPATIONAL THERAPY TREATMENT Patient Name: Orion Dumont : 1950 Date of Service: 08/17/2022 Referring Provider: Berenice Hanks PA-C Diagnosis: Arthritis of slvkmhiw-ziinyvfld-qa apezoid joint of left hand Reason for referral/Mechanism of injury: s/p Left thumb carpometacarpal arthroplasty and intrinsic release, partial excision trapezoid, DOS 07/01/2022 Precautions/Red Flags: Yes UE weight bearing status: Non-weight bearing thru left hand post-surgical precautions: No CMC ROM until 6 weeks post op prosthesis/orthosis used: custom thumb spica splint Patient Preferences: Orion will transfer to [facility] due to proximity to home in [place] Subjective No new complaints, pain modestly improved, patient reports splint may be cut down and new motion initiated per physician visit 08/10/22; patient encouraged to increase frequency to 2x/ week but declined due to travel and gas prices Compliance with HEP: Yes Objective CURRENT THUMB ROM Date Recorded: 08/17/22 LEFT Thumb CMC (nl 45?/60?) MCP (nl 10?H/60?) IP (nl 15?H/80?) Palmar Abduction 30 Extension 0? 15? hyperextension Radial Abduction 30 Flexion 25? 40 passive 38? 42 passive *(Passive values entered only if different than active; otherwise = AROM) CURRENT WRIST ROM Date Recorded: 08/17/22 Left Flexion 70 Extension 50 Assessment Skilled occupational therapy interventions utilized to improve patient?s impairments and work towards established goals. Patient response to treatment: Patient with improved thumb MP flexion with provided treatment. Initiated CMC motion and composite thumb flexion without complaints. Splint shortened to hand-based to allow wrist ROM. Patient to refrain from strengthening x 2 weeks per protocol. Patient will benefit from continued occupational therapy to increase functional AROM, progress to strengthening The rationale for today?s treatment was explained to the patient. Verbal cues were provided for correct form with all exercises. Advised patient to continue with Home Exercise Program (HEP). Goals General/Ortho Patient will be independent with HEP. (Progressing) Start: 07/11/22 Expected End: 09/07/22 Patient will report decreased pain at 2/10 in left thumb to be able to complete HEP, therapy ROM. (Progressing) Start: 07/11/22 Expected End: 09/07/22 Patient will increase ROM of left thumb to be able to full MP and IP AROM WNL, progress to CMC ROM when initiation at 6 weeks post op to gain full AROM for opposition to base of small of little finger (Progressing) Start: 07/11/22 Expected End: 09/07/22 Patient will adhere to prescribed precautions/restricti ons for restrictions, splint wear and non weight bearing to protect healing structures (Progressing) Start: 07/11/22 Expected End: 09/07/22 Plan Plan for next session: ROM, STM Treatment Therapeutic Exercise # of Activities: 4 Therapeutic Exercise Activity 1: ROM of thumb Activity 1 Comment: MP and IP ROM with initiation of CMC motion Therapeutic Exercise Activity 2: wrist ROM Activity 2 Comment: AROM/AAROM wrist flexion and extension Therapeutic Exercise Acitivity 3: finger flexion/extension Activity 3 Comment: full active finger flexion and extension IASTM Location: left thumb MP joint, dorsal thumb and incisional scar Comments: tolerated well, improved MP flexion achieved Splinting Location: left thumb Type: thumb spica modified to hand based Splinting: Modification Time Entry Total Treatment Time Start Time: 929 Stop Time: 1000 Time Calculation (min): 30 min OT Therapeutic Procedures Time Entry Therapeutic Exercise Time Entry: 18 Manual Therapy Time Entry: 6 Orthotic/Prosthetic Mgmt and/or Training (Subs Encounter) Time Entry: 5 Rosa Jameson OT Normal [facility] Office Visiton 08-11-2022 Follow-up visit [id number] Orion Dumont 1950 M Date Provider Department Center 08/11/2022 [id number] SMITH [facility] [place] None No family history on file Level of Service:62002 [place] POSTOP FOLLOW UP VISIT RELATED TO ORIGINAL PX Reason for Visit and Comments: Post-op [483] - DOS 07/01/2022- LEFT thumb carpometacarpal arthroplasty with partial excision trapezoid Normal [facility] Progress Noteon 08-11-2022 Progress Note [facility] [address] [place] [address] Dept: [phone] Dept 08/11/2022 Chief Complaint Patient presents with Post-op DOS 07/01/2022- LEFT thumb carpometacarpal arthroplasty with partial excision trapezoid SUBJECTIVE Orion is approximately 6 week(s) s/p LEFT thumb carpometacarpal arthroplasty with partial excision trapezoid. He is taking Tylenol for pain relief. He denies significant complaints other than the expected amount of pain. He is working with therapy 1x weekly OBJECTIVE BP 124/78 Ht 6' 1 (1.854 m) Wt 221 lb (100 kg) BMI 29.16 kg/m? Ortho Exam Focused Exam of the LEFT Upper Extremity Incision well-healed. Mild soft tissue swelling dorsal radial wrist. No pain with axial load and CMC grind. No palpable crepitation. Thumb able to oppose the base of small finger. IMAGING LEFT Hand 3V subsidence first metacarpal ASSESSMENT (M19.032) Arthritis of hipxpttv-gpmfhwmik-er apezoid joint of left hand (M18.12) Osteoarthritis of carpometacarpal (CMC) joint of left thumb 1. Arthritis of zxrwdbqu-neylqqxjb-uj apezoid joint of left hand 2. Osteoarthritis of carpometacarpal (CMC) joint of left thumb PLAN Orion clinically is doing well following his CMC arthroplasty. Understands he can use his thumb without restrictions we will follow-up 4 months from his surgery for repeat evaluation. Immobilization: Custom OT splint: Continue with current use Weight Bearing: Non Weight Bearing Rehabilitation: OT/PT Rx given: To follow protocol. Follow-up: Orion will followup with me in 10 weeks. He knows to call the office with any questions or concerns in the interim. Future Imaging: None Toya Smith MD Hand and Upper Extremity Surgery [facility] Department of Orthopaedics and Sports Medicine 08/11/2022 at 9:36 AM (Please note that portions of this note may have been completed with a voice recognition program. Efforts were made to edit the dictations but occasionally words are mis-transcribed.) Normal [facility] Progress Noteon 08-10-2022 Progress Note [facility] THERAPY AT [address] [place] [address] Dept: [phone] Dept OCCUPATIONAL THERAPY TREATMENT Patient Name: Orion Dumont : 1950 Date of Service: 08/10/2022 Referring Provider: Berenice Hanks PA-C Diagnosis: Arthritis of bplpnpux-egwazoyip-em apezoid joint of left hand Reason for referral/Mechanism of injury: s/p Left thumb carpometacarpal arthroplasty and intrinsic release, partial excision trapezoid, DOS 07/01/2022 Precautions/Red Flags: Yes UE weight bearing status: Non-weight bearing thru left hand post-surgical precautions: No CMC ROM until 6 weeks post op prosthesis/orthosis used: custom thumb spica splint Patient Preferences: Orion will transfer to [facility] due to proximity to home in [place] Subjective Pain remains high 6-10/17 Compliance with HEP: Yes Objective THUMB LEFT Thumb CMC (nl 45?/60?) MCP (nl 10?H/60?) IP (nl 15?H/80?) Palmar Abduction 40 Extension 0? 10? hyperextension Radial Abduction 35 Flexion 25? 35 passive 44? *(Passive values entered only if different than active; otherwise = AROM) Assessment Skilled occupational therapy interventions utilized to improve patient?s impairments and work towards established goals. Patient response to treatment: Patient continues to have higher than expected pain, difficulty completing exercises at home to full potential MP flexion. Passive MP flexion improves within treatment session, patient encouraged to utilize heat modality at home to assist. Follow- up with physician 08/11/22 Patient will benefit from continued occupational therapy to progress to CMC motion, splint modification and future progression to strengthening and functional integration The rationale for today?s treatment was explained to the patient. Verbal cues were provided for correct form with all exercises. Advised patient to continue with Home Exercise Program (HEP). Goals General/Ortho Patient will be independent with HEP. (Progressing) Start: 07/11/22 Expected End: 09/07/22 Patient will report decreased pain at 2/10 in left thumb to be able to complete HEP, therapy ROM. (Not Progressing) Start: 07/11/22 Expected End: 09/07/22 Patient will increase ROM of left thumb to be able to full MP and IP AROM WNL, progress to CMC ROM when initiation at 6 weeks post op to gain full AROM for opposition to base of small of little finger (Progressing) Start: 07/11/22 Expected End: 09/07/22 Patient will adhere to prescribed precautions/restricti ons for restrictions, splint wear and non weight bearing to protect healing structures (Progressing) Start: 07/11/22 Expected End: 09/07/22 Plan Plan for next session: progress to CMC ROM and splint modification if cleared by physician, pain reduction Treatment Therapeutic Exercise # of Activities: 4 Therapeutic Exercise Activity 1: ROM of thumb Activity 1 Comment: MP and IP ROM with manual stabliization of CMC Therapeutic Exercise Activity 2: wrist ROM Activity 2 Comment: AROM/AAROM wrist flexionand extension Therapeutic Exercise Acitivity 3: finger flexion/extension Activity 3 Comment: full active finger flexion and extension Therapeutic Exercise Activity 4: baseline measurements for CMC motion IASTM Location: left thumb MP joint, dorsal thumb and incisional scar Comments: tolerated well, improved MP flexion achieved Modalities Moist Heat (parameters): applied to radial left hand pre-exercise 5 minutes Time Entry Total Treatment Time Start Time: 829 Stop Time: 0900 Time Calculation (min): 30 min OT Modalities Time Entry Hot/Cold Pack Time Entry: 5 UV Treatment Time Entry: 6 OT Therapeutic Procedures Time Entry Therapeutic Exercise Time Entry: 18 Rosa Jameson OT [facility] Progress Noteon 08-03-2022 Progress Note [facility] THERAPY AT [address] [place] [address] Dept: [phone] Dept OCCUPATIONAL THERAPY RE-EVALUATION Patient Name: Orion Dumont : 1950 Date of Service: 08/03/2022 Referring Provider: Berenice Hanks PA-C Diagnosis: Arthritis of ylwnqtsg-bbyuipdqh-hb apezoid joint of left hand Reason for referral/Mechanism of injury: s/p Left thumb carpometacarpal arthroplasty and intrinsic release, partial excision trapezoid, DOS 07/01/2022 Precautions/Red Flags: Yes UE weight bearing status: Non-weight bearing thru left hand post-surgical precautions: No CMC ROM until 6 weeks post op prosthesis/orthosis used: custom thumb spica splint Patient Preferences: Orion will transfer to [facility] due to proximity to home in [place] Subjective General Comments: Pain is somewhat better but remains high, sharp shooting pain persistent randomly in ulnar side of thumb Pain: Current: 6/10 Best: 5/10 Worst: 8/10 Current Level of Function: no permitted use of left hand for weight bearing or functional use, patient does admit to using left fingers for grasp and release of light objects and self-care tasks Patient?s Stated Goal: reduce pain Outcome Measures QuickDASH: no change due to precautions/restricti ons Objective THUMB LEFT Thumb CMC (nl 45?/60?) MCP (nl 10?H/60?) IP (nl 15?H/80?) Palmar Abduction Not measured Extension -5 0? Radial Abduction Not measured Flexion 15? 40 passive 50? *(Passive values entered only if different than active; otherwise = AROM) Assessment Patient presents with significant stiffness of left thumb MP joint which did improve with AAROM/PROM . Patient reports high pain with ROM and demonstrates limited active follow thru of ROM after stretching with therapist. Rehab Potential: Good Goals Active General/Ortho Patient will be independent with HEP. (Progressing) Start: 07/11/22 Expected End: 09/07/22 Patient will report decreased pain at 2/10 in left thumb to be able to complete HEP, therapy ROM. (Progressing) Start: 07/11/22 Expected End: 09/07/22 Patient will increase ROM of left thumb to be able to full MP and IP AROM WNL, progress to CMC ROM when initiation at 6 weeks post op to gain full AROM for opposition to base of small of little finger (Progressing) Start: 07/11/22 Expected End: 09/07/22 Patient will demonstrate independence with provided splint education. for don/doff, wearing schedule, care of splinting (Progressing) Start: 07/11/22 Expected End: 09/07/22 Patient will adhere to prescribed precautions/restricti ons for restrictions, splint wear and non weight bearing to protect healing structures (Progressing) Start: 07/11/22 Expected End: 09/07/22 Plan Frequency and Duration: 1/wk for 4 weeks Therapeutic Contents: client education, home exercise program, manual therapy techniques, therapeutic activities, and therapeutic exercise Plan for next session: aggressive ROM of MP joint, STM Risks and benefits were discussed with the patient and/or family, and the patient and/or family participated with the plan of care and agrees. Treatment Therapeutic Exercise # of Activities: 3 Therapeutic Exercise Activity 1: ROM of thumb Activity 1 Comment: MP and IP ROM with manual stabliization of CMC Therapeutic Exercise Activity 2: wrist ROM Activity 2 Comment: AROM/AAROM wrist flexionand extension Therapeutic Exercise Acitivity 3: finger flexion/extension Activity 3 Comment: full active finger flexion and extension IASTM Location: left thumb MP joint, dorsal thumb and incisional scar Comments: tolerated well, improved MP flexion achieved Time Entry Total Treatment Time Start Time: 1130 Stop Time: 1200 Time Calculation (min): 30 min OT Therapeutic Procedures Time Entry Therapeutic Exercise Time Entry: 21 Manual Therapy Time Entry: 8 Rosa Jameson OT [facility] 36on 07-28-2022 36 Pt called my direct line back, relayed message above. [place] [id number] I called the pharmac y to confirm all information today, spoke with pharmacist Soumya, she can fill the [place] that was prescribed on 07/18/2022 today. I left message for patient. Left thumb carpometacarpal arthroplasty and intrinsic release, partial excision trapezoid, DOS 07/01/2022 [facility] 36 Name of Caller: Mike guardado Contact Reason for call: Pt states that his pharmacy has not been able to get in [place] for several months and that Rx was sent back to clinic but Pt has not heard anything back. Please call Pt in new Rx for pain medication. Requested Hydrocodone and acetaminophen as separate Rx's. If not able to prescribe those, please call Pt in something else for pain management. Pt stated Tramadol is not effective for him too FYI. Please fill at: [id number] - [place], [place] - [address] [facility]. AT [address] Office Name: Berenice Hanks [facility] Progress Noteon 07-20-2022 Progress Note [facility] AT [address] [place] [address] Dept: [phone] Dept OCCUPATIONAL THERAPY TREATMENT Patient Name: Orion Dumont : 1950 Date of Service: 07/20/2022 Referring Provider: Berenice Hanks PA-C Diagnosis: Arthritis of ejavqbvi-nsewozvos-qa apezoid joint of left hand Reason for referral/Mechanism of injury: s/p Left thumb carpometacarpal arthroplasty and intrinsic release, partial excision trapezoid, DOS 07/01/2022 Precautions/Red Flags: Yes UE weight bearing status: Non-weight bearing thru left hand post-surgical precautions: No CMC ROM until 6 weeks post op prosthesis/orthosis used: custom thumb spica splint Patient Preferences: Orion will transfer to [facility] due to proximity to home in [place] Subjective Pain remains hihg, 09/17 continues to take pain medication regularly Compliance with HEP: patient reports frequent exercise as prescribed however feels he is not pushing himself into ROM as we do in therapy Objective THUMB LEFT Thumb CMC (nl 45?/60?) MCP (nl 10?H/60?) IP (nl 15?H/80?) Palmar Abduction Not measured Extension 0? 0? Radial Abduction Not measured Flexion 20 active 35 passive 45? *(Passive values entered only if different than active; otherwise = AROM) WRIST ROM Left Flexion 40- Extension 45 Assessment Skilled occupational therapy interventions utilized to improve patient?s impairments and work towards established goals. Patient response to treatment: Patient with higher than expected pain, some improvement within treatment session with provided STM and ROM. Significant stiffness of MP joint in flexion. Remaining digits flex to palm, wrist ROM WFL. Patient will benefit from continued occupational therapy to optimize thumb ROM and progress to strengthening per protocol. The rationale for today?s treatment was explained to the patient. Verbal cues were provided for correct form with all exercises. Advised patient to continue with Home Exercise Program (HEP). Goals General/Ortho Patient will be independent with HEP. (Progressing) Start: 07/11/22 Expected End: 08/10/22 Patient will report decreased pain at 2/10 in left thumb to be able to complete HEP, therapy ROM. (Not Progressing) Start: 07/11/22 Expected End: 08/10/22 Patient will increase ROM of left thumb to be able to full MP and IP AROM WNL, progress to CMC ROM when initiation at 6 weeks post op to gain full AROM for opposition to base of small of little finger (Progressing) Start: 07/11/22 Expected End: 08/10/22 Patient will demonstrate independence with provided splint education. for don/doff, wearing schedule, care of splinting (Progressing) Start: 07/11/22 Expected End: 08/10/22 Patient will adhere to prescribed precautions/restricti ons for restrictions, splint wear and non weight bearing to protect healing structures (Progressing) Start: 07/11/22 Expected End: 08/10/22 Plan Plan for next session: MP and IP ROM, wrist ROM, STM Treatment Therapeutic Exercise # of Activities: 3 Therapeutic Exercise Activity 1: ROM of thumb Activity 1 Comment: MP and IP ROM with manual stabliization of CMC Therapeutic Exercise Activity 2: wrist ROM Activity 2 Comment: AROM/AAROM wrist flexionand extension Therapeutic Exercise Acitivity 3: finger flexion/extension Activity 3 Comment: full active finger flexion and extension IASTM Location: left thumb MP joint, dorsal thumb and incisional scar Comments: tolerated well, improved MP flexion achieved Time Entry Total Treatment Time Start Time: 0930 Stop Time: 1000 Time Calculation (min): 30 min OT Therapeutic Procedures Time Entry Therapeutic Exercise Time Entry: 18 Manual Therapy Time Entry: 10 Rosa Jameson OT [facility] 36on 07-18-2022 36 Spoke to pt to make aware. [facility] 36 Rx Signed. [facility] 36 Left thumb carpometacarpal arthroplasty and intrinsic release, partial excision trapezoid, DOS 07/01/2022 Please advise on refill, order pended [facility] 36 Name of caller: Mike tony Contact phone number: [phone] Relationship to Patient: patient Provider: Berenice Hanks Practice: Ortho Chief Complaint/Reason for Call: Patient is requesting a refill of his HYDROcodone-acetamino phen ([place]) 5-325 MG tablet It needs sent to [facility] in patient chart. He had sx on 07/01/22 Best time of day caller can be reached: any Patient advised that office/PCP has 24-48 business hours to return their call: No Normal [facility] Office Visiton 07-11-2022 Follow-up visit [id number] Orion Dumont 1950 M Date Provider Department Center 07/11/2022 [id number][facility]DE[facility] OR None No family history on file Level of Service:70955 [place] POSTOP FOLLOW UP VISIT RELATED TO ORIGINAL PX Reason for Visit and Comments: Post-op [483] - DOS 07/01/2022- Left thumb carpometacarpal arthroplasty and intrinsic release, partial excision trapezoid Normal [facility] PATINSon 07-11-2022 PATINS Thumb CMC Arthroplasty - OT Protocol Toya Smith MD POST OPERATIVE WEEK OBJECTIVES Post Op Visit #1 Forearm based opponens splint Splint worn at all times except when bathing ROM fingers, thumb MCP and IP joints, wrist, elbow, & shoulder. No motion thumb CMC Strict non weight bearing through thumb Week 2 Hand therapy 1-2 times per week Gentle ROM exercises of wrist, Thumb MCP and IP joints. No motion thumb CMC Start scar massage/Edema control Continue use of splint when not working ROM Strict non weight bearing through thumb Week 6 (Post Op Visit #2) Hand based opponens splint Hand therapy 2 times per week Gentle AROM and PROM CMC Continue scar massage Strict non weight bearing through thumb Weeks 8 Hand therapy 2 times per week Gentle thumb strengthening Initiate home strengthening program Splint time clerk when not strengthening Week 10 Consider Comfort Cool Splint Hand therapy 1-2 time per week Continue progressive strengthening Continue use of splint when not strengthening OK to begin use of thumb for ADLs in splint Continue home exercises Week 12 (Post Op Visit #3) Start to wean out of splint OK to wear splint with ADLs if needed Home exercise program only Increase daily activities and strengthening Progress to full use as tolerated Normal [facility] Progress Noteon 07-11-2022 Progress Note [facility] THER[facility] AT [address] [facility] [address] Dept: [phone] Dept OCCUPATIONAL THERAPY EVALUATION Patient Name: Orion Dumont : 1950 Date of Service: 07/11/2022 Referring Provider: Berenice Hanks PA-C Diagnosis: Arthritis of dqqlvqca-rgwjbkvoh-pf apezoid joint of left hand General Information Reason for referral/Mechanism of injury: s/p Left thumb carpometacarpal arthroplasty and intrinsic release, partial excision trapezoid, DOS 07/01/2022 Precautions/Red Flags: Yes UE weight bearing status: Non-weight bearing thru left hand post-surgical precautions: No CMC ROM until 6 weeks post op prosthesis/orthosis used: custom thumb spica splint Patient Preferences: Orion will transfer to [facility] due to proximity to home in [place] Fall Risk: No Work status: retired Home Setup: shares home with siblings who are able to assist as necessary PMHX: Orion has a past medical history of Atrial fibrillation (CMS/HCC) (HCC), Delayed emergence from general anesthesia, GERD (gastroesophageal reflux disease), History of transfusion, deep venous thrombosis, Hypotension, and Sleep apnea. PSHX: Orion has a past surgical history that includes IVC filter retrieval (Right); Hip Arthroplasty; Carpal tunnel release; Rotator cuff repair; Tonsillectomy; Appendectomy; Cholecystectomy; Colonoscopy; Upper gastrointestinal endoscopy; Gastric bypass; and Other surgical history (Left, 07/01/2022). Have you experienced any anxiety, depression, thoughts of self-harm or suicidal thoughts?: No Physician follow-up appointment?: Yes Subjective Chief Complaint: thumb pain, stiffness, difficulty sleeping due to pain Pain: Current: 5/10 Best: 5/10 Worst: 9/10 Symptoms Aggravated by: pain with ROM, random pain without motion Symptoms Relieved by: medication Prior Level of Function: independent in basic care but progressive pain over time Current Level of Function: unable to use left hand secondary to precautions, difficulty with clothing management, requires assist for opening packages, cutting foods, Patient?s Stated Goal: regain use of left hand without pain Outcome Measures QuickDASH: 100 Objective Hand Dominance: right Skin Integrity: well approximated incision, no drainage or signs of infection Edema: mild edema surrounding left thumb as expected Palpation: non tender to palpation ROM: THUMB LEFT Thumb CMC (nl 45?/60?) MCP (nl 10?H/60?) IP (nl 15?H/80?) Palmar Abduction Not measured Extension 0 0? Radial Abduction Not measured Flexion 25? 30? *(Passive values entered only if different than active; otherwise = AROM) WRIST ROM Left Flexion 55 Extension 50 Strength: Not assessed due to precautions Sensation: Intact to light touch, denies paresthesia Assessment Orion Dumont is a 71 y.o. patient with chief complaint of pain, stiffness, who presents with signs and symptoms consistent with post operative CMC arthroplasty with partial excision of trapeium and intrinsic release. The patient would benefit from skilled occupational therapy to address decreased strength, decreased range of motion, decreased skin integrity, and pain. Evaluation complexity is low secondary to: patient has 3 or more personal factors and/or comorbidities that will affect plan of care, therapy will be addressing 3 or more elements, and clinical presentation is stable. Body Systems Affected: musculoskeletal Rehab Potential: Good Learning Preferences: demonstration, performance, and printed materials Barriers to Rehab: comorbidities Goals General/Ortho Patient will be independent with HEP. Start: 07/11/22 Expected End: 08/10/22 Patient will report decreased pain at 2/10 in left thumb to be able to complete HEP, therapy ROM. Start: 07/11/22 Expected End: 08/10/22 Patient will increase ROM of left thumb to be able to full MP and IP AROM WNL, progress to CMC ROM when initiation at 6 weeks post op to gain full AROM for opposition to base of small of little finger Start: 07/11/22 Expected End: 08/10/22 Patient will demonstrate independence with provided splint education. for don/doff, wearing schedule, care of splinting Start: 07/11/22 Expected End: 08/10/22 Patient will adhere to prescribed precautions/restricti ons for restrictions, splint wear and non weight bearing to protect healing structures Start: 07/11/22 Expected End: 08/10/22 Plan Frequency and Duration: 1/wk for 4 weeks, progress to 2/wk for 4 weeks Therapeutic Contents: client education, home exercise program, manual therapy techniques, therapeutic activities, therapeutic exercise, and splinting Plan for next session: splint check, MP and IP thumb ROM Risks and benefits were discussed with the patient and/or family, and the patient and/or family participated with the plan of care and agr (more content not included)... Normal [facility] Progress Note Subjective: Orion is approximately 10 day(s) s/p Left thumb carpometacarpal arthroplasty and intrinsic release, partial excision trapezoid, DOS 07/01/2022. Pain is moderate. He is taking Tylenol for pain relief. He reports improvement in pain post-operatively. He denies numbness and tingling. The patient denies drainage from his incision. Patient reports he has been doing well since his surgery. He reports moderate pain he is taking Tylenol for pain control. He denies numbness and tingling. He reports intact incision without erythema edema drainage or wound separation. Denies fevers and chills. He has been compliant with splint and nonweightbearing restriction. He reports mild stiffness after coming out of the splint. Objective: Temp 36.4 ?C (97.6 ?F) Ht 6' 1 (1.854 m) Wt 221 lb (100 kg) BMI 29.16 kg/m? Left Upper Extremity Skin: Incision(s) is healing appropriately. No drainage. No surrounding erythema, no warmth. No wound separation. Edema: Minimal surrounding edema. Palpation: non tender to palpation throughout ROM: LEFT Thumb CMC (nl 45?/60?) MCP (nl 10?H/60?) IP (nl 15?H/80?) Palmar Abduction Not measured Extension Not measured Not measured Radial Abduction Not measured Flexion Not measured Not measured *(Passive values entered only if different than active; otherwise = AROM) Remaining fingers flex to palm and fully extend. Active wrist range of motion: 50 flexion/ 55 extension. Pronation full/ Supination full. Motor: Intact in the hand - able to fire AIN, PIN, and Ulnar nerves Sensation: to light touch is normal in the median, ulnar, and radial nerve distributions Perfusion: Brisk capillary refill to all digits with 2+ radial pulse. XRay: 3V Left hand from today show status post trapeziectomy with the first metacarpal maintaining alignment at the carpometacarpal joint level Assessment Diagnosis Plan 1. 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 Finger range of motion was encouraged within the confines of the splint. The splint is to be worn at all times but can be removed for therapy exercises and hygiene purposes. He can begin ROM of the thumb IP and MCP joints immediately but is to refrain from CMC range of motion until no sooner than 6 weeks from the date of surgery. This was demonstrated to the patient today in the office with good understanding. The patient is to remain nonweightbearing through the wrist and hand. Signs and symptoms of infection were discussed with the patient. Expected post operative recovery course was discussed with the patient. his questions were answered. I would like the patient to follow-up with Dr. Smith in 4 weeks. He is comfortable with the plan. Immobilization: Custom OT splint: Rx given to have forearm-based thumb opponens splint made to be worn at all times when not performing supervised exercises Weight Bearing: NWB Rehabilitation: OT/PT Rx given: To follow protocol. Dr. Smith will see Orion back in 4 weeks to see how he is doing. Orion knows to call the office with any questions or concerns in the interim. Future ImaginV Left Hand Sutures were removed in office today. dry dressing applied to left wrist. Patient tolerated well with no concerns. Postoperative thumb spica splint was reapplied to left wrist. Patient was educated on proper use and application and had no further questions. Patient was instructed to call the office with any concerns or questions regarding DME. Applied by: [facility] Berenice Hanks PA-C to Dr. Toya Smith Orthopaedic Surgery Hand and Upper Extremity (Please note that portions of this note may have been completed with a voice recognition program. Efforts were made to edit the dictations but occasionally words are mis-transcribed.) Thumb CMC Arthroplasty - OT Protocol Toya Smith MD POST OPERATIVE WEEK OBJECTIVES Post Op Visit #1 Forearm based opponens splint Splint worn at all times except when bathing ROM fingers, thumb MCP and IP joints, wrist, elbow, & shoulder. No motion thumb CMC Strict non weight bearing through thumb Week 2 Hand therapy 1-2 times per week Gentle ROM exercises of wrist, Thumb MCP and IP joints. No motion thumb CMC Start scar massage/Edema control Continue use of splint when not working ROM Strict non weight bearing through thumb Week 6 (Post Op Visit #2) Hand based opponens splint Hand therapy 2 times per week Gentle AROM and PROM CMC Continue scar massage Strict non weight bearing through thumb Weeks 8 Hand therapy 2 times per week Gentle thumb strengt (more content not included)... [facility] [id number] 36 I left another voicemail and asked patient to call with any questions or concerns [facility] 3607-04-2022 36 LVM to discuss current symptoms [facility] 36on 07-01-2022 36 S: Patient spoke nora WILKINSON nurse regarding post op pain B: Onset of symptoms/concern surgery today; left thumb carpometacarpal athroplasty with partial excision trapezoid A: Pt is calling regarding having severe pain in left wrist and from left should to elbow. Pt stated that he has taken prescription pain medication, ice, elevate and rest with no relief. Pt stated that his pain level is 9/10. R: Instructed pt to go to [facility] ER for the severe pain (as directed on PP). Pt understood and unsure if he will go to ER. Reason for Disposition Sounds like a serious complication to the triager Answer Assessment - Initial Assessment Questions 1. SYMPTOM: What's the main symptom you're concerned about? (e.g., pain, fever, vomiting) [place] and tylenol from shoulder to elbow-left. Surgery to wrist and right above the thumbs. 9/10. Painful and not getting any relief. Icing elevating. 2. ONSET: When did *No Answer* start? *No Answer* 3. SURGERY: What surgery did you have? *No Answer* 4. DATE of SURGERY: When was the surgery? *No Answer* 5. ANESTHESIA: What type of anesthesia did you have? (e.g., general, spinal, epidural, local) *No Answer* 6. PAIN: Is there any pain? If Yes, ask: How bad is it? (Scale 1-10; or mild, moderate, severe) *No Answer* 7. FEVER: Do you have a fever? If Yes, ask: What is your temperature, how was it measured, and when did it start? *No Answer* 8. VOMITING: Is there any vomiting? If Yes, ask: How many times? *No Answer* 9. BLEEDING: Is there any bleeding? If Yes, ask: How much? and Where? *No Answer* 10. OTHER SYMPTOMS: Do you have any other symptoms? (e.g., drainage from wound, painful urination, constipation) *No Answer* Protocols used: Post-Op Symptoms and [place] [id number] New rx signed. [place] [id number] Please cancel previous script and sign new script. [place] [phone] Name of Caller: Mike guardado Contact Reason for call: pt stated several pharmacies are out of his Rx for HYDROcodone-acetamino phen ([place]) 5-325 MG tablet [facility] [address] [place] [address] Pt called that pharmacy and they do have it. DOS today Office Name: [facility] Nursing Noteon 07-01-2022 Nursing Note Pain increasing. Medication provided. Aware that he can take norco at 800 pm if needed for pain. Aware to restart Eliquis tomorrow. Discharge instructions reviewed with patient and sister. Ambulates to restroom. Assisted with getting dressed. States ready to go home [facility] Nursing Note Sister Cyndee brought to bedside. [facility] Nursing Note Received pt from OR sleeping arouses easily to name and follows commands. Report received and assessment completed. Belongings with pt. Afib noted and has history. [facility] Op Noteon 07-01-2022 Op Note [facility] OR [address] [place] [address] Dept: [phone] Loc: [phone] Operative Report Patient Name: Orion Dumont Date of : 1950 Date of Surgery: 07/01/22 Location: [facility] Preoperative Diagnosis: Left Upper Extremity Thumb carpometacarpal arthritis STT arthritis Thumb intrinsic contracture Postoperative Diagnosis: Same Procedure: Left Upper Extremity Thumb CMC arthroplasty Partial excision trapezoid Thumb intrinsic release Surgeon: Toya Smith MD 1st Assist: Shital Salguero MD 2nd Assist: Berenice Hanks PA-C Implants: [employer] [place] Specimens Removed: None Anesthesia: MAC and Regional Estimated Blood Loss: <5cc Antibiotics: Ancef Indications: Mr. Orion Dumont is a 71 y.o. year-old male with thumb CMC arthritis that has failed all conservative management and elected to precede with surgical intervention. I have discussed with him, preoperatively, the complications, limitations, expectations, alternatives, and risks of surgical care which he has understood. No guarantees were given or implied. Mr. Orion Dumont has provided written informed consent to proceed. Procedure: Orion Dumont was identified in the preoperative waiting area. his operative site was initialed and consent was reviewed. Final questions were answered. Mr. Orion Dumont was brought to the operating room and placed in the supine position. All bony prominences were well padded. The aforementioned anesthesia was administered. Antibiotics were confirmed to have been given. A tourniquet was placed around the upper arm. The operative extremity was prepped and draped in the usual sterile fashion. A surgical timeout was then performed with the patient's identification, the procedure to be performed being reviewed, verification that the patient had received preoperative antibiotics if indicated, and verification of the correct surgical side. The patient's ASA was verified by the nurse cougar hunter and the anesthesia staff. Fire risk was assessed. An esmarch bandage was used to exsanguinate the limb and the tourniquet was inflated to 250mm Hg. A curvilinear incision was made at the base of the thumb metacarpal between the glaborous and nonglabrous skin. Sharp dissection was carried down through the skin only and then blunt dissection was carried down to the level of the thenar fascia. Care was taken to identify and protect any crossing cutaneous nerves. The thenar fascia was incised in line with the skin incision just volar to the insertion of the APL tendon. The thenar musculature was sharply elevated ulnarward from the volar capsule. A longitudinal capsulotomy was made from the base of the first metacarpal to the distal pole of the scaphoid. Full-thickness volar and dorsal capsular flaps were elevated around the trapezium taking care to stay subperiosteal with our sharp dissection. The intrinsic muscles of the thumb were released. The FCR tendon was identified and protected volarly. Fluoroscopy was used to confirm correct identification of the trapezium. The trapezium was removed piecmeal using a rongeur. Live fluoroscopy confirmed adequate resection of the trapezium and all loose bodies. The scapho-trapezoid was inspected and found to be with arthritic change. 2mm of the trapezoid articular surface was resected using an small osteotome to ensure no residual bony contact between the scaphoid and trapezoid articulation. Using fluoroscopic guidance a guidewire was placed obliquely from the radial base of the second metacarpal through the ulnar cortex just distal to the metaphyseal flare. A threaded guide was placed over the guidewire and the guidewire removed. A drill bit was then passed along the same drill tunnel followed by an Arthrex fiber tack anchor which was deployed along the ulnar cortex of the second metacarpal. Excellent fixation of the suture anchor was confirmed. 1 limb of the suture tape was then passed from deep to superficial through the dorsal CMC capsule between the APL and EPB tendons. A separate locking suture was then placed in the dorsal capsule prior to passing the suture tape from superficial to deep. The thumb metacarpal was then placed in the appropriate position and several square knots tied to complete the suture suspension. 1 limb of the suture tape was then passed through the FCR at its insertion with a locking stitch. The 2 limbs of suture tape were then again tied with several square knots to complete the APL to FCR suspension. Fluoroscopy confirmed excellent metacarpal height without subsidence during axial load. Clinical exam demonstrated full thumb CMC range of motion without impingement. The wound was mickey irrigated normal saline. Gelfoam was placed in the CMC space and the thenar fascia with the volar CMC capsule repaired directly b (more content not included)... Normal [facility] PREPROCINSon 06-24-2022 PREPROCINS Medication List Accurate as of June 24, 2022 12:23 PM. Always use your most recent med list. acetaminophen 500 MG tablet Commonly known as: Tylenol atorvastatin 20 MG tablet Commonly known as: Lipitor Bisacodyl EC 5 MG EC tablet Generic drug: bisacodyl bisoprolol 5 MG tablet Commonly known as: Zebeta busPIRone 15 MG tablet Commonly known as: Buspar Caltrate 600+D Plus Minerals 600-800 MG-UNIT chewable tablet cholecalciferol 50 MCG (1999 UT) tablet Commonly known as: Vitamin D-3 digoxin 250 MCG tab;et Commonly known as: Lanoxin Eliquis 5 MG tablet Generic drug: apixaban fludrocortisone 0.1 MG tablet Commonly known as: Florinef HYDROcodone-acetamino phen 5-325 MG tablet Commonly known as: [place] lamoTRIgine 100 MG tablet Commonly known as: LaMICtal multivitamin capsule omega-3 acid ethyl esters 1 g capsule Commonly known as: Lovaza orphenadrine 100 MG 12 hr tablet Commonly known as: Norflex pantoprazole 40 MG EC tablet Commonly known as: ProtoNix sertraline 100 MG tablet Commonly known as: Zoloft HOLD ELIQUIS THE MORNING OF SURGERY PER INSTRUCTIONS FROM DR BAKER HOLD FISH OIL/KRILL OIL (OMEGA 3)FOR 5 DAYS BEFORE SURGERY HOLD MULTIVITAMINS FOR 5 DAYS BEFORE SURGERY MAY TAKE TYLENOL IF NEEDED FOR PAIN MAY TAKE ALL OTHER MEDICATIONS as PRESCRIBED ARRIVE 2 HOURS BEFORE YOUR PROCEDURE BE AT THE HOSPITAL AT 10:30 USE DOOR NUMBER 2 Check in at the registration desk using your photo ID and insurance card Have a responsible adult that will be able to take you home and remain with you the rest of the day NO FOOD AFTER MIDNIGHT this includes candy gum and mints You may drink CLEAR LIQUIDS ( BLACK coffee, Tea, Apple Juice, Cranberry Juice, Gatorade, or carbonated pop) until arrival time for surgery *(NOTE IF YOU ARE A DIABETIC AVOID HIGH SUGAR BEVERAGES)* Wear loose comfortable clothing that you can go home in Leave all jewelery, valuables and CONTACT LENSES at home Bring a printed list of the medications that you take write the dates and times of the last dose DO NOT USE ALCOHOL, RECREATIONAL DRUGS OR TOBACCO PRODUCTS FOR 24 HOURS BEFORE SURGERY Please write down any question you may have for your surgeon and or anesthesiologist [facility] 36on 06-07-2022 36 Cardiac Clearance received, Dr Baker did not address Eliquis, Called office. Per Dr Baker patient will hold Eliquis only day of surgery. Custom Splint appt changed from 06-08-2022 to follow IPO 07-11-2022. Left message informing patient. [facility] 36on 05-31-2022 36 PAT and custom splin t Orders Signed. Patient is on Eliquis and will need to contact the prescriber for management for the surgery. [facility] 36on 05-26-2022 36 Please enter PAT and custom splint orders [id number] @ 1230 @ [facility] Consent-LEFT thumb carpometacarpal arthroplasty with partial excision trapezoid-[id number] Dx-M19.032-Left lcrcbhub-jevijllbv-sg apezoid joint Arthritis Anesthesia-Mac with Regional [id number] @ [facility] @ 1200 Case-[id number] Cardiac Clearance request sent to Dr Baker Tyjes-[phone], No Auth required for in network providers. Reference number-[id number] [facility] 36 ----- Message from Toya Smith MD sent at 05/26/2022 9:01 AM EST ----- LUIS SURGERY SCHEDULING SLIP Patient: Orion Dumont Date of : 1950 Date of Surgery: Next available Day of Surgery: Monday Hospital: [facility] Duration: 60min Type: Outpatient PAT: Yes Med Clearance: No Anesthesia: MAC Block: Regional Position: Supine Table: Regular OR table Arm Board: Suspended arm board WITHOUT leg Radiology: Small C-Arm CPT Code: Consent: LEFT thumb carpometacarpal arthroplasty with partial excision trapezoid FollowUp: [place] in 10-14 days XRays: Yes OT Splint needed at first PO appointment: Yes - Forearm BASED THUMB OPPONENS SPLINT Special Requests Hand tray [place] blade Arthrex FiberTak anchors Osteotomes Normal [facility] Office Visiton 05-26-2022 Follow-up visit [id number] Orion Dumont 1950 M Date Provider Department Center 05/26/2022 [id number] SMITH [facility] None No family history on file Level of Service:84000 [place] OFFICE/OUTPATIENT ESTABLISHED MOD MDM 30-39 MIN Reason for Visit and Comments: Follow-up [152658] - Left wrist pain Normal [facility] Progress Noteon 05-26-2022 Progress Note [facility] [address] [place] [address] Dept: [phone] Dept 05/26/2022 Chief Complaint Patient presents with Follow-up Left wrist pain HPI Orion returns today in follow-up regarding left sided wrist pain. His last appointment was approximately 4 weeks ago. At his last appointment he was treated with a referral to Dr. Lobato for an USG injection on 05/04/2022. He reports no improvement after the injection. Continues to endorse pain focal to the volar radial aspect of the left thumb. No relief from previous ultrasound-guided injection. No past medical history on file. Social History Socioeconomic History Marital status: Spouse name: Not on file Number of children: Not on file Years of education: Not on file Highest education level: Not on file Occupational History Not on file Tobacco Use Smoking status: Never Smokeless tobacco: Never Substance and Sexual Activity Alcohol use: Not on file Drug use: Not on file Sexual activity: Not on file Other Topics Concern Not on file Social History Narrative Not on file Social Determinants of Health Financial Resource Strain: Not on file Food Insecurity: Not on file Transportation Needs: Not on file Physical Activity: Not on file Stress: Not on file Social Connections: Not on file Intimate Partner Violence: Not on file Housing Stability: Not on file OBJECTIVE BP 110/70 Ht 6' 1 (1.854 m) Wt 225 lb (102 kg) BMI 29.69 kg/m? Ortho Exam Point tender along the STT and CMC joints. Pain with CMC grind. IMAGING XRay: Plain films reviewed from a previous date 04/28/2022 LEFT Wrist 3V STT arthrosis MRI left wrist impression DOS 02/04/22 NCT/EMG (Copied Impression) None PROCEDURE none ASSESSMENT (M19.032) Arthritis of xfwoumsb-rtigbtemq-ht apezoid joint of left hand 1. 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 He has failed conservative management. He would like to proceed with surgery. In this scenario I recommend a CMC arthroplasty with partial excision of his trapezoid to address the remaining STT arthrosis. He understands to be 3 to 4 months for his meaningful use of his thumb and a full year before he reaches maximal improvement. I had an extensive discussion with Mr. Orion Dumont regarding the natural history, etiology, and halfway consequences of his condition. We discussed both operative and non operative treatment options and Orion Dumont elected to proceed with surgical intervention. I have discussed with Mr. Orion Dumont the potential complications, limitations, expectations, alternatives, and risks of the proposed surgical procedure. Risks discussed include but are not limited to the risk of infection, iatrogenic injury to normal neurovascular structures, persistent pain and disability, unsightly scar, stiffness, complex regional pain syndrome, loss of limb, myocardial infarction, deep vein thrombosis, pulmonary embolism and even . We also discussed the potential risk of COVID-19 exposure or infection and how it could alter his post operative recovery course. He has had full opportunity to ask his questions. I have answered them all to his satisfaction. I feel that Mr. Orion Dumont does understand our discussion today and he is comfortable providing informed consent for the procedure. Immobilization: NO immobilization required at this point - FULL ROM all joints encouraged Weight Bearing: Weight Bearing As Tolerated through left sided upper extremity Rehabilitation: NO formal rehabilitation required at this point. Follow-up: Orion will followup with my physician cancer genetics assistant Jaqueline Boyd PA-C post operatively. He knows to call the office with any questions or concerns in the interim. Future Imaging: NONE Toya Smith MD Hand and Upper Extremity Surgery [facility] Department of Orthopaedics and Sports Medicine 05/26/2022 at 9:00 AM (Please note that portions of this note may have been completed with a voice recognition program. Efforts were made to edit the dictations but occasionally words are mis-transcribed.) [facility] 36on 05-19-2022 [address] [facility] 36 I can see back in office to discuss possible surgery [facility] 36on 05-18-2022 36 ultrasound guided injection of left STT joint with Dr Lobato 05-04-2022. [facility] 36 Name of Caller: Mike guardado Contact Reason for call: pt stated the injection did not help at all and he was asking if the next step would be sx. Advised it had only been 2wks and not the suggested 4, but he said the pain and weakness is too much to deal with. Office Name: Dr Smith-Ortho [facility] Office Visiton 05-04-2022 Follow-up visit [id number] Orion Dumont 1950 M Date Provider Department Center 05/04/2022 [id number] LOBATO [facility] None No family history on file Level of Service:16503 [place] OFFICE/OUTPT VISIT,PROCEDURE ONLY Reason for Visit and Comments: Injections [186] - Usg lt wrist injection Normal [facility] Progress Noteon 05-04-2022 Progress Note [facility] [address] [place] [id number] Dept: [phone] Dept Chief Complaint Patient presents with Injections Usg lt wrist injection Subjective History of Present Illness: Orion Dumont is a 71 y.o. male who presents today for ultrasound guided injection of left STT joint . He rates symptoms as a 5/10 at rest and a 10/10 at worst. Imaging to date: X-ray April 2022 Prior targeted injections: about 8 - 9 months ago . Fall risk assessment: Completed today. Have you had 2 or more falls in the last year? No Have you had a fall with injury in the last year? No Do you feel unsteady or worried about falling? No Objective There were no vitals taken for this visit. Physical Exam: No sign of infection overlying injection site. External Notes I personally reviewed external notes from: Dr. Smith [facility] No results found for: HGBA1C No results found for: CREATININE Imaging I have personally reviewed the images pertinent to the appointment today EMG/NCT N/A Procedure Procedure completed today, details below Use of ultrasound visualization of the needle was required to increase patient's safety by excluding inadvertent intermuscular or intertendinous placement and minimizing bleeding and injury by avoiding osteochondral and nearby neurovascular structures. Guidance also maximizes accurate injection placement and likely clinical benefit beyond that obtained from a non-guided injection. This allows increased diagnostic specificity when evaluating effectiveness of the injection. Verbal and written consent was obtained from the patient. Consent included possibility of bleeding, infection, hypoglycemia, hyperglycemia, increased pain, steroid flare, and permanent hypopigmentation and fat atrophy. Using real-time ultrasound I localized the left STT joint. Sterile prep. Using a 22-gauge 1.5 inch needle I injected using direct ultrasound guidance out of plane with the probe into the joint with after aspiration without withdraw with 0.5 mL of 1% lidocaine and 0.5 cc of Celestone. The patient tolerated the procedure well. There were no complications. Pertinent ultrasound images were saved. The patient felt significantly better with gripping and with using his hands to push himself out of a chair after the injection. Assessment Diagnosis Plan 1. Wrist pain, left betamethasone acetate-betamethasone sodium phosphate (Celestone) injection 3 mg lidocaine (Xylocaine) 1 % injection 0.5 mL 2. Primary osteoarthritis of left wrist betamethasone acetate-betamethasone sodium phosphate (Celestone) injection 3 mg lidocaine (Xylocaine) 1 % injection 0.5 mL Plan - Post injection instructions were given to the patient. - Keep with HEP. - Send Dr. Smith's office a [employer] message in 4 weeks with an update. Follow up if symptoms worsen or fail to improve. Phil Lobato MD 05/04/2022 9:00 AM Please note that portions of this note may have been completed with voice recognition software. Documentation reviewed prior to signing but minor errors in ceramic capacitor processor may have occurred. Normal [facility] Office Visiton 04-28-2022 Follow-up visit [id number] Orion Dumont 1950 M Date Provider Department Center 04/28/2022 [id number] SMITH [facility] [place] None No family history on file Level of Service:64229 [place] OFFICE/OUTPATIENT NEW LOW [facility] 30-44 MINUTES Reason for Visit and Comments: New Patient [542] - Left wrist pain Normal [facility] Progress Noteon 04-28-2022 Progress Note [facility] [place] [address] [place] [address] [place] [address] Dept: [phone] Dept 04/28/2022 Chief Complaint Patient presents with New Patient Left wrist pain HPI Orion Dumont is a 71 y.o. right handed male that presents for evaluation of pain in his LEFT Wrist. Symptoms have been present for 2 year(s). The symptoms started after gradually over time. Pain Characteristics Described as constant annoying Worse with activity Alleviated nothing Severity severe Previous Treatments NSAIDs: Yes - Not Helpful Injection: Yes - has 3 injections and they have stopped working Therapy: No - Has not attempted formal therapy Splinting: Yes - Has worn a cock-up which was ineffective Surgery: Yes - Has had previous surgery to include: carpal tunnel release about 2 years ago MRI: Yes on disc Main complaint is pain along the base of the thumb No results found for: HGBA1C No past surgical history on file. No past medical history on file. Allergies Allergen Reactions Rivaroxaban Rash Sulfa Antibiotics Hives Other reaction(s): Intolerance Pt says that he has had silvadene cream in the past after cardioversions without side effects Diclofenac Rash Fixed drug eruption Fixed drug eruption Wound Dressing Adhesive Rash Current Outpatient Medications Medication Sig Dispense Refill atorvastatin (Lipitor) 20 MG tablet bisoprolol (Zebeta) 5 MG tablet busPIRone (Buspar) 15 MG tablet Calcium Carbonate-Vit D-Min (Caltrate 600+D Plus Minerals) 600-800 MG-UNIT chewable tablet Chew. cholecalciferol (Vitamin D-3) 50 MCG (2000 UT) tablet Take 1 tablet by mouth with evening meal. digoxin (Lanoxin) 250 MCG tab;et digoxin 250 mcg (0.25 mg) tablet Eliquis 5 MG tablet fludrocortisone (Florinef) 0.1 MG tablet HYDROcodone-acetamino phen ([place]) 5-325 MG tablet lamoTRIgine (LaMICtal) 100 MG tablet omega-3 acid ethyl esters (Lovaza) 1 g capsule Take 1 g by mouth 2 times daily. orphenadrine (Norflex) 100 MG 12 hr tablet Take 100 mg by mouth 2 times daily as needed for muscle spasms. Do not crush, chew, or split. pantoprazole (ProtoNix) 40 MG EC tablet sertraline (Zoloft) 100 MG tablet Take 100 mg by mouth in the morning. No current facility-administered medications for this visit. OBJECTIVE BP 128/82 Temp 36.1 ?C (96.9 ?F) Ht 6' 1 (1.854 m) Wt 225 lb (102 kg) BMI 29.69 kg/m? Ortho Exam Minor stiffness of the wrist. Point tender over the STT joint. Nontender over the ulnar fovea. No pain with ulnar deviation. Neurovascular intact in the hand. IMAGING Plain films were taken today and reviewed in office. LEFT Wrist 3V STT arthrosis MRI left wrist impression DOS 02/04/22 PROCEDURE none ASSESSMENT 1. 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 Orion had some excellent questions, all of which were answered to his satisfaction. Orion presents with STT arthrosis. I reviewed his previous MRI which also demonstrates this as well as a TFCC tear. He is now symptomatic along the ulnar wrist. He is not a great surgical candidate therefore I recommended attempting an ultrasound-guided STT joint injection for both diagnostic and therapeutic purposes. He indicates medications for pain. Continue with splinting as needed. Follow-up in apparent basis. Follow-up: Orion will followup with me on an as needed basis. He knows to call the office with any questions or concerns in the interim. Future Imaging: NONE Toya Luis, MD Hand and Upper Extremity Surgery [facility] Department of Orthopaedics and Sports Medicine 04/28/2022 at 10:17 AM (Please note that portions of this note may have been completed with a voice recognition program. Efforts were made to edit the dictations but occasionally words are mis-transcribed.) Normal [facility] MRI UP EXT ANY JOINT WO CON RTon 02-11-2022 MRI UP EXT ANY JOINT WO CON RT STUDY: MRI of the right shoulder without IV contrast; 02/11/2022 11:30 am INDICATION: RT SHOULDER PAIN. COMPARISON: None ACCESSION NUMBER(S): [id number] ORDERING CLINICIAN: Rubio Pantoja TECHNIQUE: MR imaging of the right shoulder was obtained without IV contrast. FINDINGS: ROTATOR CUFF TENDONS: There are postsurgical changes status post prior rotator cuff repair with anchors in the greater tuberosity. There is suggestion of a retear of the anterior insertional supraspinatus tendon with tendon discontinuity. The retear appears to measure approximately 16 mm in AP dimension. There is suggestion of a mildly retracted articular surface tendon stump of the infraspinatus which may represent low-grade articular surface tearing. The teres minor tendon is intact. There is at least low-grade articular surface tearing of the subscapularis tendon. There is severe supraspinatus muscle atrophy. Mild infraspinatus muscle atrophy. Moderate subscapularis muscle atrophy. BICEPS TENDON AND ROTATOR INTERVAL: The intra-articular long head biceps tendon is not visualized. This may be torn and retracted or represent postsurgical changes status post prior tenotomy. JOINTS: There are moderate acromioclavicular productive degenerative changes. There is mild glenohumeral articular cartilage thinning, predominantly inferiorly. No sizeable joint effusion. Small volume fluid in the subacromial subdeltoid bursa. LABRUM: Circumferential degenerative labral tearing. OSSEOUS STRUCTURES: No focal marrow replacing lesions are identified. There is no fracture. SOFT TISSUES: The suprascapular nerve is intact at the suprascapular and spinoglenoid notches. IMPRESSION: Status post rotator cuff repair with a full-thickness re-tear of the supraspinatus tendon insertion and located take your surface tearing of the infraspinatus tendon. There is severe supraspinatus muscle atrophy. At least low grade articular surface tearing of the subscapularis tendon. There is moderate muscle atrophy. Nonvisualized long head biceps tendon which may represent postsurgical changes or full-thickness tear with retraction. Moderate acromioclavicular and mild glenohumeral arthrosis. Normal [facility] MRI WRIST W/O CONTRAST LEFTo n 02-04-2022 MRI WRIST W/O CONTRAST LEFT ORIGINAL EXAMINATION: MRI OF THE LEFT WRIST WITHOUT CONTRAST TECHNIQUE: Multiplanar multisequence MRI of the left wrist was performed without the administration of intravenous contrast. COMPARISON: None HISTORY: ORDERING SYSTEM PROVIDED HISTORY: Reason for Exam: PAIN IN LT WRIST Carpal tunnel September 28 FINDINGS: TENDONS: The extensor tendons are intact. The flexor tendons are intact. There is moderate fluid surrounding the flexor carpi radialis tendon with mildly increased intrasubstance tendon signal. No other significant tenosynovitis. Carpal tunnel contents including the median nerve are unremarkable. LIGAMENTS: There is no obvious or high-grade tear of the scapholunate and lunotriquetral ligaments. The dorsal ligaments at the wrist are also intact. The lunotriquetral ligament is intact. There is a gap in the radial portion of the triangular fibrocartilage that is concerning for a full-thickness tear. The adjacent radioulnar ligaments are intact. The other ligaments appear within normal limits. JOINTS: No scapholunate joint widening. There is no dislocation or subluxation. Trace distal radioulnar joint effusion. Mild scattered degenerative changes. There is some dorsal tilting of the lunate but the scapholunate angle is within normal limits. OSSEOUS STRUCTURES: Mild bone marrow edema surrounding the distal radioulnar joint. Reactive bone marrow changes are seen in multiple carpal bones and in the distal ulna. No other pathologic marrow signal abnormality. There is moderate triscaphe osteoarthritis which may explain marrow edema in the trapezium. Some marrow edema in the hook of the hamate is nonspecific with no obvious fracture lines. There is no fracture or contusion. There is no marrow replacing lesion. SOFT TISSUES: There is some fluid in the distal radioulnar joint. There is also some fluid in the radiocarpal and midcarpal joint spaces suggesting synovitis. No significant peritendinous fluid collections. There is no muscle tear or atrophy. The median nerve in the carpal tunnel is unremarkable. The ulnar nerve in Guyon's canal is unremarkable. IMPRESSION: Degenerative changes at the wrist most prominent at the triscaphe joints. Full-thickness triangular fibrocartilage tear. Moderate tenosynovitis of the flexor carpi radialis tendon. There is also effusion at the wrist suggesting synovitis. . I have personally reviewed the images of this examination and agree with the resident's findings and interpretation. Interpreted by: Benoit Sepulveda MD Preliminary Report By: Leela Kulkarni Electronically signed By Benoit Sepulveda MD Dictated Date: 02/04/2022 9:52:16 AM Prelim Date: 02/04/2022 5:40:41 PM Sign Date: 02/04/2022 5:40:41 PM Ordering Provider: MATT MARIE [facility] ([place]) Absolute lymphocyte counton 06-30-2021 Lymphocytes Auto (Unsp spec) [#/Vol] 1.53 10*3/uL 0.83-4.51 [facility] Work Phone: Amorphous sediment detection in urine sediment by light microscopyon 06-30-2021 Amorphous sediment LM Ql (Urine sed) 1+ [facility] Work Phone: [phone] Basophil percentageon 2021 Basophil percentage 0 SEEN /hpf [facility] Work Phone: Basophils/100 WBC (Bld) 0.4 % 0-[address] [facility] Work Phone: [phone] Bilirubin [Mass/Vol] 0.60 mg/dL 0.20-1.[address] [facility] Work Phone: [phone] Comment on above: For patients on eltr ombopag therapy, use of Dimension [place] TBIL is not recommended. Chloride [Moles/Vol] 111 mmol/L 98-[address] [facility] Work Phone: [phone] Eosinophils/100 WBC (Bld) 2.4 % 0-5 [facility] Work Phone: [phone] Glucose [Mass/Vol] 99 mg/dL 74-106 [facility] Work Phone: [phone] Neutrophils (Bld) [#/Vol] 3.4 10*3/uL 2.0-7.7 [facility] Work Phone: Neutrophils/100 WBC (Bld) 62.6 % 47-70 [facility] Work Phone: Potassium [Moles/Vol] 4.3 mmol/L 3.5-5.1 [facility]: Protein [Mass/Vol] 5.5 g/dL 6.4-8.2 [facility]: Sodium [Moles/Vol] 142 mmol/L 136-145 [facility] Work Phone: WBC (Bld) [#/Vol] 5.4 10*3/uL 4.4-11.0 [facility] Work Phone: Bilirubin Test strip Ql (U)o n 06-30-2021 Bilirubin Ql (U) Negative Negative [facility] Work Phone: Blood erythrocytes count (nu mber/volume)on 06-30-2021 RBC (Bld) [#/Vol] 4.14 10*6/uL 4.6-6.2 [facility] Blood hemoglobin measurement (mass/volume)on 06-30-2021 Hemoglobin (Bld) [Mass/Vol] 13.0 g/dL 13.0-16.5 [facility] Work Phone: Blood lymphocytes/100 leukoc yteson 06-30-2021 Lymphocytes/100 WBC (Bld) 28.3 % 19-41 [facility] Work Phone: Blood monocytes/100 leukocyt eson 06-30-2021 Monocytes/100 WBC (Bld) 5.9 % 0-[address] [facility] Work Phone: Blood platelet mean volumeon 06-30-2021 Platelet mean volume (Bld) [Entitic vol] 10.9 fL 6.2-12.0 [facility] Work Phone: Determination of erythrocyte mean corpuscular volume (MCV)on 06-30-2021 MCV (RBC) [Entitic vol] 91.1 fL 80-[address] [facility] Work Phone: Hematocrit Auto (Bld) [Volum e fraction]on 06-30-2021 Hematocrit (Bld) [Volume fraction] 37.7 % 40-54 [facility] Work Phone: Hyaline casts LM.LPF (Urine sed) [#/Area]on 06-30-2021 Hyaline casts (Urine sed) [#/Area] 10 /[LPF] [facility] Work Phone: Ketones Test strip Ql (U)on 06-30-2021 Ketones Ql (U) Negative Negative [facility] Work Phone: Laboratory - Chemistry and C hemistry - challengeon 06-30-2021 ALP [Catalytic activity/Vol] 48 U/L 45-117 [facility] Work Phone: ALT [Catalytic activity/Vol] 47 U/L 16-61 [facility] Work Phone: CO2 [Moles/Vol] 27.0 mmol/L 21.0-32.0 [facility] Work Phone: Globulin (S) [Mass/Vol] 2.4 g/dL 2.2-4.[address] [facility] Work Phone: Urea nitrogen/Creatinine [Mass ratio] 20.8 mg/mg 10-20 [facility] Work Phone: Laboratory - Hematology and Cell countson 06-30-2021 Erythrocyte distribution width (RBC) [Entitic vol] 45.4 fL 35.1-43.9 [facility] Work Phone: Erythrocyte distribution width (RBC) [Ratio] 13.5 % 11.6-14.6 [facility] Work Phone: Immature granulocytes/100 WBC (Bld) 0.400 % 0.0-0.9 [facility] Work Phone: Comment on above: IG% - Immature Granu locytes (promyelocytes, myelocytes and metamyelocytes) > 1% indicates that a LEFT SHIFT is Present. MCH (RBC) [Entitic mass] 31.4 pg 27.0-32.0 [facility] Work Phone: Nucleated RBC/100 WBC (Bld) [Ratio] 0 % 0-5 [facility] Work Phone: MCHC Auto (RBC) [Mass/Vol]on 06-30-2021 MCHC (RBC) [Mass/Vol] 34.5 g/dL 32-36 [facility] Work Phone: Mucus LM Ql (Urine sed)on Mucus Ql (Urine sed) 0 SEEN /hpf [facility] Work Phone: Nitrite Test strip Ql (U)on 06-30-2021 Nitrite Ql (U) Negative Negative [facility] Work Phone: No Panel Informationon 06-30 Estimated Creatinine Clearance Calc 79.11 ml/min [facility] Work Phone: Estimated GFR (MDRD) Amer 94 mL/min >60 [facility] Work Phone: Comment on above: GFR Calc Estimated GFR (MDRD) Non-Af Amer 78 mL/min >60 [facility] Work Phone: Comment on above: Non- GFR Calc Troponin I High Sensitivity 8 pg/mL 3.0-78.0 [facility] Work Phone: Comment on above: Please Note: New Anna t Units and Gender Specific Reference Ranges. For more information see Policy Stat Procedure [place] High Sensitivity Troponin (TNIH) and attachments. Platelets bldon 06-30-2021 Platelets (Bld) [#/Vol] 202 10*3/uL 150-450 [facility] Work Phone: Protein Test strip Ql (U)on 06-30-2021 Protein Ql (U) Negative Negative [facility] Work Phone: Serum or plasma albumin tierra urement (mass/volume)on 06-30-2021 Albumin [Mass/Vol] 3.1 g/dL 3.2-5.0 [facility] Work Phone: Serum or plasma albumin/glob ulin mass ratioon 06-30-2021 Albumin/Globulin [Mass ratio] 1.3 {ratio} 0.9-2.4 [facility] Work Phone: Serum or plasma calcium tierra urement (mass/volume)on 06-30-2021 Calcium [Mass/Vol] 8.7 mg/dL 8.5-10.1 [facility] Work Phone: Serum or plasma creatinine m easurement (mass/volume)on 06-30-2021 Creatinine [Mass/Vol] 1.01 mg/dL 0.70-1.30 [facility] Work Phone: Comment on above: The validity of the calculated GFR & GFRAA in patients over 70 years has not been determined. Clinical correlation is essential. Serum or plasma urea nitroge n measurement (mass/volume)on 06-30-2021 Urea nitrogen [Mass/Vol] 21 mg/dL 7-18 [facility] Work Phone: Squamous epithelial cells de tection in urine sediment by light microscopyon 06-30-2021 Epithelial cells.squamous LM Ql (Urine sed) 0 SEEN /hpf [facility] Work Phone: Thin prep Papanicolaou smear with manual screeningon 06-30-2021 Thin prep Papanicolaou smear with manual screening 27 U/L 15-37 [facility] Work Phone: Thin prep Papanicolaou smear with manual screening 4 5-15 [facility] Work Phone: Urine blood detectionon 06-09 RBC Ql (U) Negative Negative [facility] Work Phone: RBC Ql (U) 0 SEEN /hpf [facility] Work Phone: Urine clarityon 06-30-2021 Clarity (U) Clear Clear [facility] Work Phone: Urine color determinationon 06-30-2021 Color (U) Yellow Yellow [facility] Work Phone: Urine glucose detectionon Glucose Ql (U) Normal mg/dl Normal [facility] Work Phone: Urine leukocyte esterase det ection by dipstickon 06-30-2021 Leukocyte esterase Test strip Ql (U) Negative Negative [facility] Work Phone: Urine pHon 06-30-2021 pH (U) 6.0 [pH] [facility] Work Phone: Urine sediment bacteria coun t by microscopy (number/high power field)on 06-30-2021 Bacteria LM.HPF (Urine sed) [#/Area] RARE /hpf None Seen [facility] Work Phone: Urine specific gravity measu rementon 06-30-2021 Specific gravity (U) [Rel density] 1.020 [facility] Work Phone: Urobilinogen Auto test strip Ql (U)on 06-30-2021 Urobilinogen Ql (U) Normal mg/dl Normal [facility] Work Phone: Basophil percentageon 2020 Creatinine [Mass/Vol] 0.8 mg/dL 0.70-1.30 [facility] Work Phone: No Panel Informationon 03-12 Bedside Estimated GFR (eGFR) > 60.0000 mL/min >60 [facility] Work Phone: ANES POSTPROC EVALon 021 ANES POSTPROC EVAL HNO ID: [id number] Author: Laura Willams Service: ? Author Type: Physician Type: Anesthesia Postprocedure Evaluation Filed: 04/20/2020 1:28 PM Note Text: POST ANESTHESIA EVALUATION NOTE : 1950 Procedure Summary Date: 04/20/20 Room / [facility]: [facility] Anesthesia Start: 1207 Anesthesia Stop: 1311 Procedures: COLONOSCOPY (N/A ) EGD WITH BIOPSY (N/A ) Diagnosis: Abnormal weight loss Gastrointestinal hemorrhage, unspecified gastrointestinal hemorrhage type Surgeons: Raghu Rodriguez Responsible Provider: Laura Willams Anesthesia Type: MAC ASA Status: 3 Anesthesia Type: MAC Last vitals Vitals Value Taken Time BP 110/78 04/20/20 1327 Temp 37 04/20/20 1327 Pulse 75 04/20/20 1327 Resp 15 04/20/20 1327 SpO2 96 04/20/20 1327 Post Anesthesia Patient Status Patient Evaluation: PACU. PACU/ICU Patient Condition: stable. Anticipated Disposition: phase 2 then home. Neurological Status: aware and responsive. Pulmonary Status: breathing comfortably on room air Airway Control: returned to baseline unsupported. Cardiovascular Status: stable. Pain Management: clinically adequate - multimodal analgesia pain management approach Postoperative Hydration: acceptable. Intraoperative Events: no significant anesthesia events Post Operative Nausea/Vomiting Status: Anesthetic Observations: no significant anesthetic observations Recommendation: continue current plan of care. SIGNATURE: Laura Willams MD PATIENT NAME: Orion Dumont DATE: April 20, 2020 TIME: 1:27 PM CSN: [id number] [facility] ANES PRE-OPon 04-20-2020 ANES PRE-OP HNO ID: [id number] Author: Laura Willams Service: ? Author Type: Physician Type: Anesthesia Preprocedure Evaluation Filed: 04/20/2020 11:18 AM Note Text: ANESTHESIOLOGY DAY OF SURGERY NOTE : 1950 Procedure(s) (LRB): COLONOSCOPY (N/A) EGD (N/A) Surgeon(s): Raghu Rodriguez Estimated body mass index is 30.34 kg/m? as calculated from the following: Height as of 03/26/20: 185.4 cm (6' 1). Weight as of 03/26/20: 104.3 kg (230 lb). Most recent hematocrit and potassium results: Hematocrit, POC 39.2 03/20/2020 Hematocrit (POCT) 39 03/14/2012 Potassium, POC 4.3 06/13/2019 Potassium (POCT) 4.2 03/14/2012 Relevant Problems ANESTHESIA (+) LEXIE (obstructive sleep apnea) CARDIO (+) Atrial fibrillation with RVR (HCC) (+) DVT (deep venous thrombosis) (HCC) (+) Dieulafoy lesion (hemorrhagic) of intestine (+) Pulmonary embolism (HCC) (+) Varicose veins -RENAL (+) Enteric hyperoxaluria (+) Nephrolithiasis PULMONARY (+) LEXIE (obstructive sleep apnea) I - PHYSICAL EVALUATION AIRWAY Patient intubated: No. Tracheostomy tube not present Mallampati: III. TM distance: >3 FB. Neck ROM: full ROM without neurological symptoms. Mouth opening: adequate. Additional exam findings: no II - ANESTHESIA PLAN ASA Score: 3 Anesthetic Plan: MAC NPO Status: adequate Monitoring plan: standard ASA. Postoperative analgesic plan: parenteral or oral opioids and multimodal analgesia. Anesthetic Risks, Benefits, Alternatives, Personnel Discussed. Consent obtained from: patient. Patient / Surrogate agrees to blood products: blood products not planned Significant changes in the patient condition since the History and Physical, not otherwise documented in primary service progress note: no. No vitals data found for the desired time range. No current facility-administered medications on file as of 04/20/2020. Outpatient Medications as of 04/20/2020 Medication Sig - alfuzosin SR (UROXATRAL) 10 mg 24 hr tablet Take 1 tablet by mouth once daily. - bisoprolol (ZEBETA) 5 mg tablet Take 1 tablet by mouth once daily. - midodrine (PROAMATINE) 10 mg tablet TAKE 1 TABLET 3 TIMES A DAY (Patient taking differently: Take 10 mg by mouth twice daily. ) - pantoprazole DR (PROTONIX) 20 mg tablet TAKE TWO TABLETS BY MOUTH ONCE DAILY 30 MINUTES BEFORE BREAKFAST (Patient taking differently: Take 40 mg by mouth once daily. ) - polyethylene glycol 3350 (MIRALAX, GLYCOLAX) 17 gram/dose powder TAKE DIRECTED PRIOR TO COLONOSCOPY. MIX WITH 64 OUNCES OF GATORADE. - bisacodyl EC (DULCOLAX) 5 mg EC tablet TAKE BY MOUTH DIRECTED FOR BOWEL PREP - apixaban (ELIQUIS) 5 mg tab(s) Take 1 tablet by mouth twice daily. - albuterol HFA (PROAIR HFA) 90 mcg/actuation inhaler 2 Puffs every 4 hours as needed for Wheezing/Shortness of Breath. Take as directed - atorvastatin (LIPITOR) 20 mg tablet Take 20 mg by mouth once daily. - multivitamin tablet Take by mouth. - sertraline (ZOLOFT) 100 mg tablet Take 1 tablet by mouth once daily. - cholecalciferol (VITAMIN D3) 2,000 unit tablet Take 1 tablet by mouth daily with dinner. (Patient taking differently: Take 2,000 Units by mouth twice daily. ) - busPIRone (BUSPAR) 15 mg tablet Take 1 tablet by mouth twice daily. - pyridoxine (VITAMIN B-6) 100 mg tablet Take 2 tablets by mouth twice daily. - calcium citrate-vitamin D3 (CITRACAL + D) 315-200 mg-unit tab Take 1 tablet by mouth four times daily. With each meal. (Patient taking differently: Take 1 tablet by mouth twice daily with meals. With each meal. ) - docusate sodium 100 mg capsule Take 1 capsule by mouth twice daily as needed for Constipation. - [id number] -Fish Oil [id number]-mcg cap Take 600 mg by mouth twice daily. (Patient taking differently: Take 600 mg by mouth once daily. ) - buPROPion SR (WELLBUTRIN SR) 150 mg ORAL 12 hr tablet Take 1 tablet by mouth twice daily. I have interviewed and examined the patient. I have reviewed the medical record and/or the pre-anesthesia evaluation, pertinent labs, and test results. This contains updated information obtained within 48 hours of Surgery/Procedure. SIGNATURE: Laura Willams MD PATIENT NAME: Orion Dumont DATE: April 20, 2020 TIME: 11:17 AM CSN: [id number] Normal [facility] HISTORY PHYSICALon HISTORY PHYSICAL HNO ID: [id number] Author: Raghu Rodriguez Service: General Surgery Author Type: Physician Type: HANDP Filed: 04/20/2020 11:40 AM Note Text: HISTORY AND PHYSICAL ? Orion Dumont 1950 ? REFERRING PHYSICIAN: Preethi Portillo MD ? CHIEF COMPLAINT: No chief complaint on file. ? HPI: The patient is a 69 year old male referred for endoscopy. Orion notes a history of unsuccessful colonoscopy attempt earlier this year at an outside hospital. Records are not available for review. Patient reports this was being done for GI bleeding, which he states has since resolved. He states the reason for incomplete procedure was he was not cleaned out. He reports he as had some unintentional weight loss of 55-60 lbs over the last 6 months. Patient is s/p gastric bypass. He does not think he has had an EGD since that surgery was done. Patient denies any change in bowel habits, black tarry stools or abdominal pain. Denies family history of colon issues. ? Patient's past medical history is significant for atrial fibrillation, heart failure, post-FL syndrome, MSSA infection, DVT and PE, hypertension, fatty liver, morbid obesity. Patient follows with Dr. Portillo for chronic medical conditions. ? Patient notes a history of worsening shortness of breath x several months. He was evaluated by cardiology for this, was told this was not cardiac etiology and was instructed to See pulmonology-has not yet been seen by pulm. Cardiology notes are reviewed. ? Patient does note he is overdue for labs through his PCP-he has been advised to follow up and get these done, as should be checked for anemia as possible etiology of SOB. ? ? ? PAST MEDICAL HISTORY PAST MEDICAL HISTORY Diagnosis Date - Adjustment disorder with depressed mood ? ? hosp 95' - Atrial fibrillation (HCC) 11/03/2009 ? s/p ablation, on coumadin, OFF now. - Blood per rectum 06/04/12 ? broken blood vesel in rectum - BPH (benign prostatic hyperplasia) ? - Cataract of both eyes ? ? trace - DVT (deep venous thrombosis) (HCC) 01/12/2010 ? S/P IVC filter, occurred post-op, on anticoagulation (for a fib) - Essential hypertension, benign ? - Fatty liver 11-03-09 ? by us - GI bleed 06/29/12 - Morbid obesity (HCC) 04-21-09 ? stated BMI 51.1 Ht: 75 Wt: 410 lbs - Nephrolithiasis 2009 ? Ca Ox - OA (osteoarthritis) ? - LEXIE (obstructive sleep apnea) ? - Other and unspecified hyperlipidemia ? - Pain in joint, multiple sites ? ? neck, shoulders - Retinal detachment ? ? OD - Torn rotator cuff ? - UTI (lower urinary tract infection) ? ? ? PAST SURGICAL HISTORY PAST SURGICAL HISTORY Procedure Laterality Date - CARDIOVERSION ? ? - CYSTO W/RETRO. PYELOG. BILAT. ? 01/30/2010 ? CYSTOSCOPY, RETROPYELOGRAM performed by RADHA OLIVAREZ at OR - CYSTO W/URET STENT INSERTION ? 01/30/2010 ? CYSTOSCOPY, INSERTION STENT URETERAL J performed by RADHA OLIVAREZ at OR - CYSTO.PANENDO ? 06/16/2017 ? Cystoscopy - DISKECTOMY, LUMBAR, SINGLE SP ? 1981 ? L4-5 - GASTRIC BYPASS HX ? ? - PAST SURGICAL HISTORY OF ? 1967 ? left hip pin - PAST SURGICAL HISTORY OF ? 04/23/12 ? heart surgery - PAST SURGICAL HISTORY OF ? 06/04/12 ? stitches for broken blood vesel in rectum - REDUCE BOWEL OBSTRUCTION ? 06/24/10 ? Performed by [facility] - REMOVAL GALLBLADDER ? 11/18/13 - REMOVAL OF KIDNEY STONE ? 05/02/12 - REPAIR DETACH RETINA,SCLERAL BUCKLE ? 10/2009 od ? Scleral Buckle - REPAIR DETACH RETINA,SCLERAL BUCKLE ? 08/05/2013 ? SB (Scleral Buckle)/ cyro os - TOTAL HIP REPLACEMENT ? 1993 ? left - VITRECTOMY,MECHANICAL ? 09/03/2013 ? PPV / EL / gas OS ? ? ? CURRENT MEDICATIONS Current Outpatient Medications Medication Sig - alfuzosin SR (UROXATRAL) 10 mg 24 hr tablet TAKE 1 TABLET ONCE DAILY - midodrine (PROAMATINE) 10 mg tablet TAKE 1 TABLET 3 TIMES A DAY (Patient taking differently: Take 10 mg by mouth twice daily. ) - pantoprazole DR (PROTONIX) 20 mg tablet TAKE TWO TABLETS BY MOUTH ONCE DAILY 30 MINUTES BEFORE BREAKFAST (Patient taking differently: Take 40 mg by mouth once daily. ) - polyethylene glycol 3350 (MIRALAX, GLYCOLAX) 17 gram/dose powder TAKE DIRECTED PRIOR TO COLONOSCOPY. MIX WITH 64 OUNCES OF GATORADE. - bisacodyl EC (DULCOLAX) 5 mg EC tablet TAKE BY MOUTH DIRECTED FOR BOWEL PREP - apixaban (ELIQUIS) 5 mg tab(s) Take 1 tablet by mouth twice daily. - diclofenac sodium (VOLTAREN) 1 % topical gel Apply to affected area every 4 hours as needed. - metoprolol succinate ER (TOPROL XL) 25 mg 24 hr tablet Take 1 tablet by mouth once daily. - albuterol HFA (PROAIR HFA) 90 mcg/actuation inhaler 2 Puffs every 4 hours as needed for Wheezing/Shortness of Breath. Take as directed - atorvastatin (LIPITOR) 20 mg tablet Take 20 mg by mouth once daily. ? - multivitamin tablet Take by mouth. - sildenafil (VIAGRA) 50 mg tablet Take 50 mg by mouth. - sertraline (ZOLOFT) 100 mg tablet Take 1 tablet by mouth once daily. - cholecalciferol (VITAMIN D3) 2,000 unit tablet Take 1 tablet by mouth daily with dinner. (Patient taking differently: Take 2,000 Units by mouth twice daily. ) - busPIRone (BUSPAR) 15 mg tablet Take 1 tablet by mouth twice daily. - pyridoxine (VITAMIN B-6) 100 mg tablet Take 2 tablets by mouth twice daily. - calcium citrate-vitamin D3 (CITRACAL + D) 315-200 mg-unit tab Take 1 tablet by mouth four times daily. With each meal. (Patient taking differently: Take 1 tablet by mouth twice daily with meals. With each meal. ) - docusate sodium 100 mg capsule Take 1 capsule by mouth twice daily as needed for Constipation. - [id number] -Fish Oil [id number] pb-ol-ain-mcg cap Take 600 mg by mouth twice daily. (Patient taking differently: Take 600 mg by mouth once daily. ) - buPROPion SR (WELLBUTRIN SR) 150 mg ORAL 12 hr tablet Take 1 tablet by mouth twice daily. ? Current Facility-Administered Medications Medication Dose Route Frequency - lidocaine (PF) 10 mg/mL (1 %) 4 mL injection (XYLOCAINE) 4 mL Injection - FOR ORTHO USE ONLY ? - triamcinolone acetonide 40 mg injection (KENALOG 40) 40 mg Injection - FOR ORTHO USE ONLY ? - [] lidocaine (PF) 10 mg/mL (1 %) 8 mL injection (XYLOCAINE) 8 mL Injection - FOR ORTHO USE ONLY ? - [] triamcinolone acetonide 40 mg injection (KENALOG 40) 40 mg Injection - FOR ORTHO USE ONLY ? ? ? ALLERGIES: Rivaroxaban, Sulfa (Sulfonamide Antibiotics), Adhesive Tape (Rosins), Wool, Wool, and Diclofenac Sodium ? PERSONAL HISTORY: SOCIAL HISTORY Social History ? Tobacco Use - Smoking status: Never Smoker - Smokeless tobacco: Never Used Substance Use Topics - Alcohol use: No - Drug use: No ? FAMILY HISTORY: FAMILY HISTORY FAMILY HISTORY Problem Relation Age of Onset - Ischemic Heart Disease Father ? - Diabetes Mother ? - other (Other) Mother ? - Diabetes Sister ? - Cataract Sister ? - Detached Retina Sister ? ? ? REVIEW OF SYMPTOMS: The review of systems data was entered by the nurse and reviewed by me ? Nursing Notes: Rolando Garcia 03/16/2020 4:47 PM Signed REVIEW OF SYSTEMS: General: The patient NOTES fatigue, denies weight loss, denies weight gain, denies feeling hot, and denies feelings of cold. Eyes: The patient denies glaucoma, NOTES eye injury/surgery, wears glasses or contacts. Ear/Nose/Throat: The patient denies allergies, denies hayfever, denies ear infections, and denies bloody noses. Cardiovascular: The patient denies chest pain, denies heart disease, denies high blood pressure,denies cardiac stent, denies prior heart attack, denies irregular heart beat, denies high cholesterol, denies poor circulation, denies heart failure, other cardiac issues, denies claudication, denies cold feet, denies peripheral arterial stent. Respiratory: The patient denies tuberculosis, denies pneumonia, denies frequent cough, NOTES pulmonary embolism, NOTES shortness of breath, and denies coughing up blood. Gastrointestinal: The patient denies difficulty swallowing, NOTES acid reflux, NOTES ulcers, NOTES vomiting, denies jaundice/hepatitis, denies gallbladder problems, denies black or tarry stools, denies hemorrhoids, denies bleeding from rectum, denies diverticulitis, NOTES constipation, NOTES diarrhea, denies loss of stool control, and denies hernias. Kidney/Bladder: The patient NOTES kidney stones, denies urine infections, and denies bloody urine. Skin: The patient denies a history of skin cancer, denies bleeding/changing moles, and NOTES a history of skin rash. Neurologic: The patient denies a history of epilepsy/convulsions, denies headaches, denies head/spinal injuries, and denies stroke/TIA. Psychiatric: The patient NOTES psychiatric medications, NOTES depression, and denies voices, denies substance abuse. Endocrine: The patient denies thyroid disorders, denies diabetes, and denies hormonal problems. Hematologic: The patient denies a history of bruising, denies bleeding, and denies anemia, NOTES blood clots. Infections: The patient denies a history of measles and mumps, denies rheumatic fever, and denies sexually transmitted diseases. Musculoskeletal: The patient denies back pain/injury, denies back problems, denies sciatica, denies knee/foot trouble, NOTES arthritis, or denies gout. ? ? When was patient's last Mammogram screening? N/A ? Last Colonoscopy: Tried June was not successful ? Rolando Garcia I have confirmed and edited as necessary, the PFSH and ROS obtained by others. ? PHYSICAL EXAMINATION: ? General: The patient is 69 year old male, well nourished, well hydrated in no acute distress. The patient is oriented to time, place, and person. ? VITALS: Blood pressure 82/52, pulse 88, temperature 36.3 ?C (97.3 ?F), temperature source Temporal Artery, height 185.4 cm (6' 1), weight 104.7 kg (230 lb 12.8 oz), SpO2 97 %. Body mass index is 30.45 kg/m?. ? HEENT: Normal cephalic, ataumatic, pupils are equally round, sclera are anicteric, mucous membranes are moist, oropharynx is clear. Neck has no masses, asymmetry or lymphadenopathy. ? Respiratory: Clear to auscultation and percussion. Normal respiratory excursion and pattern. ? Cardiac: Examination is regular rate and rhythm. Normal S1/S2 ? Abdominal exam: Soft, nontender, with no palpable masses. No hepatosplenomegaly. No palpable hernias. ? Extremities: no clubbing, cyanosis or edema. No adenopathy. ? LABORATORY VALUES: As Noted ? RADIOLOGIC STUDIES: As Noted ? ? Assessment IMPRESSION: history of GI bleed, weight loss, encounter for colonoscopy. C/o worsening shortness of breath x several months-will need medical maximization prior to colonoscopy ? PLAN: I have reviewed my findings with the surgeon. We have recommended that patient first follow up with pulmonology and cardiology for workup of the worsening shortness of breath. Once this is addressed and he is medically cleared, will proceed with sheduling. ? Pending clearance, will plan for upper and lower endoscopy. We discussed the risks and benefits of the planned endoscopy. I have informed the patient that complications can occur including failure to complete the endoscopy and perforation. The patient had the opportunity to ask questions concerning the planned endoscopy. My staff has also explained the procedure to the patient in understandable terms and has given the patient printed material concerning the procedure. The patient freely consents to surgery. ? The patient was offered a surgery/procedure at a [facility] facility. I have counseled the patient regarding the risk of exposure to and/or potential harm posed by the COVID-19 virus with having a surgery/procedure at this time versus the risk of? delaying the surgery/procedure. It is not possible to know either the risk of delaying the surgery or procedure or chance of getting an infection with perfect accuracy, but a joint decision was made between the patient and myself?to proceed at this time with endoscopy. ? ? I plan to use Golytely bowel preparation. Patient will remain on his anticoagulation for endoscopy per Dr. Rodriguez ? The patient has medical comorbidities for which we will plan for the procedure to be performed under [facility]. ? ? ? Diagnoses: (R63.4) Abnormal weight loss (primary encounter diagnosis) (Z01.818) Preop testing (Z87.19) History of GI bleed (R06.02) Shortness of breath ? ? Khadar Patel PA-C Normal [facility] SURGICAL PATHOLOGYon 021 SURGICAL PATHOLOGY Specimen originated from [facility] Specimen #: [id number] Submitting Physician: Raghu Rodriguez M.D. FINAL DIAGNOSIS 1. Distal esophagus, biopsy (A) - Squamous mucosa with no diagnostic alteration.. 2. Gastric pouch, biopsy (B) - Small intestinal mucosa with no diagnostic alteration. 3. Transverse colon, polyp, biopsy (C) - Colonic mucosa with lymphoid aggregate (deeper levels examined). SR/kr 04/21/2020 Farhan Oliveira MD, Ph.D. (Electronic Signature) ____ SPECIMEN SUBMITTED A: DISTAL ESOPHAGUS, BIOPSY B: GASTRIC POUCH, BIOPSY C: TRANSVERSE COLON POLYP CLINICAL DATA WEIGHT LOSS; S/P GASTRIC BYPASS B: R/O H. PYLORI GROSS DESCRIPTION A. Received in formalin is one piece of wadsworth, soft tissue measuring 0.2 x 0.1 x 0.1 cm. Totally submitted in one cassette. B. Received in formalin is one piece of wadsworth, soft tissue measuring 0.3 x 0.2 x 0.2 cm. Totally submitted in one cassette. C. Received in formalin are multiple pieces of wadsworth, soft tissue aggregating to 1.0 x 0.2 x 0.1 cm. Totally submitted in one cassette. Gross examination performed at [facility], [address] [place] [address] 04/20/2020 8:10:35 PM Date of Report: 04/23/2020 Date of Procedure: 04/20/2020 Date of Receipt: 04/20/2020 Submitted by: Raghu Rodriguez M.D. Location: [facility] Diagnostic interpretation performed at [facility], [address] [place] [address]. [facility] Number: [id number] [facility] 04-06-2020 [facility] Telephone (HLPAT) ORION DUMONT ([id number]) 1950 M Vendor Date Time Provider Department 04/06/20 JOSE M MORAN (RN) PAT During your visit today, we recorded the following information about you: Jose M Moran, RN, RN 04/06/2020 2:32 PM Signed Called and spoke to Mr Dumont and per Dr Rodriguez he does not need to stop the Eliquis for the procedure on 04/20/2019 Patient was seen by cardiology and Pulmonary prior to procedure Jose M Moran BSN RN Allergies As of Date: 04/06/2020 Noted Allergy Reaction RIVAROXABAN 03/02/2013 2 - Rash SULFA (SULFONAMIDE ANTIBIOTICS) 03/18/2008 5 - Intolerance 4 - Hives Comments: Pt says that he has had silvadene cream in the past after cardioversions without side effects ADHESIVE TAPE (ROSINS) 10/08/2009 2 - Rash WOOL 11/25/2009 9 - Itching WOOL 03/09/2010 9 - Itching DICLOFENAC SODIUM 02/01/2016 2 - Rash Comments: Fixed drug eruption Date Reviewed: 03/26/2020 Reviewed by: Leonides Baker - Fully Assessed Reason for Visit: Other [Other] Cmt: Eliquis Prescriptions as of 04/06/2020 Sig: BISOPROLOL FUMARATE 5 MG TABL* Take 1 tablet by mouth once d* ALFUZOSIN ER 10 MG TABLET,EXT* TAKE 1 TABLET ONCE DAILY MIDODRINE 10 MG TABLET TAKE 1 TABLET 3 TIMES A DAY Patient taking differently: Take 10 mg by mouth twice dinora* PANTOPRAZOLE 20 MG TABLET,DEL* TAKE TWO TABLETS BY MOUTH ONC* Patient taking differently: Take 40 mg by mouth once quincy* POLYETHYLENE GLYCOL 3350 17 G* TAKE DIRECTED PRIOR TO COL* BISACODYL 5 MG TABLET,DELAYED* TAKE BY MOUTH DIRECTED FOR* ELIQUIS 5 MG TABLET Take 1 tablet by mouth twice * DICLOFENAC 1 % TOPICAL GEL Apply to affected area every * ALBUTEROL SULFATE HFA 90 MCG/* 2 Puffs every 4 hours as need* ATORVASTATIN 20 MG TABLET Take 20 mg by mouth once quincy* MULTIVITAMIN TABLET Take by mouth. SERTRALINE 100 MG TABLET Take 1 tablet by mouth once d* CHOLECALCIFEROL (VITAMIN D3) * Take 1 tablet by mouth daily * Patient taking differently: Take 2,000 Units by mouth twi* BUSPIRONE 15 MG TABLET Take 1 tablet by mouth twice * PYRIDOXINE (VITAMIN B6) 100 M* Take 2 tablets by mouth twice* CALCIUM CITRATE 315 MG-VITAMI* Take 1 tablet by mouth four t* Patient taking differently: Take 1 tablet by mouth twice * DOCUSATE SODIUM 100 MG CAPSULE Take 1 capsule by mouth twice* OMEGA [id number] OIL * Take 600 mg by mouth twice da* Patient taking differently: Take 600 mg by mouth once dinora* BUPROPION HCL SR 150 MG TABLE* Take 1 tablet by mouth twice * Problem List As Of Date 04/06/2020 Noted Resolved SEBACEOUS GLAND DIS NEC [L73.8] 06/11/2008 CORNS AND CALLOSITIES [L84] 06/11/2008 CONTUSION OF FOOT [S90.30XA] 06/11/2008 Eating Disorder, Unspecified [F50.9] 07/01/2009 Generalized Anxiety Disorder [F41.1] 07/01/2009 Major Depressive Disorder, Recurrent Episode, M*07/01/2009 Morbid obesity (HCC) [E66.01] 10/14/2009 02/20/2014 More... Encounter for dietary counseling and surveillan*10/14/2009 DVT (deep venous thrombosis) [I82.409] 01/12/2010 Atrial fibrillation [I48.91] 11/03/2009 11/05/2018 More... Pulmonary embolism (HCC) [I26.99] 03/01/2010 Retinal detachment with retinal defect, unspeci*06/14/2010 Anticoagulation monitoring, INR range 2-3 [Z79.*06/14/2010 09/28/2012 More... LEXIE (obstructive sleep apnea) [G47.33] 06/14/2010 More... Hypomagnesemia [E83.42] 06/15/2010 More... Hypokalemia [E87.6] 06/16/2010 More... Other and unspecified postsurgical nonabsorptio*08/26/19 11 Wound check, abscess [Z51.89] 08/25/2010 Varicose veins [I83.90] 2010 Anticoagulation management encounter [Z51.81, Z*2010 Encounter for long-term (current) use of antico*03/18/2011 More... 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 Dieulafoy lesion (hemorrhagic) of intestine [K6*07/03/2012 More... Jejunal ulcer [K28.9] 07/03/2012 07/03/2012 Upper GI bleed [K92.2] 07/03/2012 More... MSSA (methicillin susceptible Staphylococcus au*07/03/2012 More... 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 SUMMARY [V999.95] 07/03/2012 More... DVT prophylaxis [Z29.9] 07/03/2012 More... Pericarditis [I31.9] 07/04/2012 More... Gastric bypass status for obesity [Z98.84] 08/02/2012 Vitamin d deficiency [E55.9] 08/02/2012 Iron deficiency anemia [D50.9] 08/02/2012 Orthostatic hypotension [I95.1] 08/30/2012 Postsurgical dumping syndrome [K91.1] 08/30/2012 Hip joint replacement by other means [Z96.649] 09/21/2012 Dizziness and giddiness [R42] 09/21/2012 11/05/2018 Other symptoms involving nervous and musculoske*09/21/2012 Senile nuclear sclerosis [H25.10] 01/29/2013 06/27/2014 Torn rotator cuff [M75.100] Atrial fibrillation with RVR [I48.91] 02/01/2013 More... 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 On bridging treatment with lovenox [Z79.01] 02/09/2015 More... Pseudophakia of both eyes [Z96.1] 06/29/2015 Enteric hyperoxaluria (HCC) [R82.992] 12/07/2015 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] 01/04/2016 Presence of intraocular lens [Z96.1] 11/14/2017 Bilateral posterior capsular opacification [H26*11/14/2017 History of detached retina repair [Z98.890, Z86*11/14/2017 Strabismus [H50.9] 11/14/2017 BPH with urinary obstruction [N40.1, N13.8] 01/19/2018 More... Microhematuria [R31.29] 01/19/2018 More... Obesity, Class II, BMI 35-39.9 [E66.9] 02/05/2018 Chest pain [R07.9] 05/03/2018 Left lower quadrant pain [R10.32] 05/03/2018 Left leg swelling [M79.89] 05/03/2018 Syncope [R55] 11/02/2018 Encounter Status:Closed by JOSE M MORAN on 04/06/20 [facility] HOSPon 04-06-2020 HOSP Patient:Mike Dumont MRN: Height:6' 0(1.829 m) Weight:230 lb (104.327 kg) Outpatient Medications as of 04/20/20: alfuzosin SR (UROXATRAL) 10 mg 24 hr tablet bisoprolol (ZEBETA) 5 mg tablet midodrine (PROAMATINE) [address] (PROTONIX) 20 mg tablet polyethylene glycol 3350 (MIRALAX, GLYCOLAX) 17 gram/dose powder bisacodyl EC (DULCOLAX) 5 mg EC tablet apixaban (ELIQUIS) 5 mg tab(s) diclofenac sodium (VOLTAREN) 1 % topical gel albuterol HFA (PROAIR HFA) 90 mcg/actuation inhaler atorvastatin (LIPITOR) 20 mg tablet multivitamin tablet sertraline (ZOLOFT) 100 mg tablet cholecalciferol (VITAMIN D3) 2,000 unit tablet busPIRone (BUSPAR) 15 mg tablet pyridoxine (VITAMIN B-6) 100 mg tablet calcium citrate-vitamin D3 (CITRACAL + D) 315-200 mg-unit tab docusate sodium 100 mg capsule [id number]-FA -Fish Oil [id number] ol-bl-vxu-mcg cap buPROPion SR (WELLBUTRIN SR) 150 mg ORAL 12 hr tablet Admission/Clinic Administered Medications as of 04/20/20: NaCl 0.9% iv infusion Problem List: Other specified disease of sebaceous glands [L73.8] Corns and callosities [L84] Contusion of foot [S90.30XA] Eating disorder, unspecified [F50.9] Generalized anxiety disorder [F41.1] Major depressive disorder, recurrent episode, moderate (HCC) [F33.1] Encounter for dietary counseling and surveillance [Z71.3] DVT (deep venous thrombosis) (HCC) [I82.409] Pulmonary embolism (HCC) [I26.99] Retinal detachment with retinal defect, unspecified [H33.009] LEXIE (obstructive sleep apnea) [G47.33] Hypomagnesemia [E83.42] Hypokalemia [E87.6] Other and unspecified postsurgical nonabsorption [K91.2] Wound check, abscess [Z51.89] Varicose veins [I83.90] Anticoagulation management encounter [Z51.81, Z79.01] emt intermediate (current) use of anticoagulants [Z79.01] 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] Rhinitis [J31.0] Nephrolithiasis [N20.0] Ulcer of perianal area (HCC) [L98.499] 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] Upper GI bleed [K92.2] MSSA (methicillin susceptible Staphylococcus aureus) infection [A49.01] 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] SUMMARY [V999.95] DVT prophylaxis [Z29.9] Pericarditis [I31.9] Gastric bypass status for obesity [Z98.84] Vitamin D deficiency [E55.9] Iron deficiency anemia [D50.9] Orthostatic hypotension [I95.1] Postsurgical dumping syndrome [K91.1] Hip joint replacement by other means [Z96.649] Other symptoms involving nervous and musculoskeletal systems(781.99) [R29.818, R29.898] Torn rotator cuff [M75.100] Atrial fibrillation with RVR (HCC) [I48.91] Ingrown toenail [L60.0] NO SHOW [119296] Retinal detachment [H33.20] Shoulder pain [M25.519] Epiretinal membrane [H35.379] Gall stones, common bile duct [K80.50] Diplopia [H53.2] 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] Muscle weakness (generalized) [M62.81] Disorders of bursae and tendons in shoulder region, unspecified [M71.9, M67.919] 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] Pseudophakia, both eyes [Z96.1] Alternating exotropia with noncommitance other than A OR V pattern [H50.18] 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] Visit for monitoring Tikosyn therapy [Z51.81, Z79.899] emt intermediate current use of anticoagulant [Z79.01] On bridging treatment with lovenox [Z79.01] Pseudophakia of both eyes [Z96.1] Enteric hyperoxaluria [R82.992] 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] Presence of intraocular lens [Z96.1] Bilateral posterior capsular opacification [H26.493] History of detached retina repair [Z98.890, Z86.69] Strabismus [H50.9] BPH with urinary obstruction [N40.1, N13.8] Microhematuria [R31.29] Obesity, Class II, BMI 35-39.9 [E66.9] Chest pain [R07.9] Left lower quadrant pain [R10.32] Left leg swelling [M79.89] Syncope [R55] Allergies: Rivaroxaban Sulfa (Sulfonamide Antibiotics) Adhesive Tape (Rosins) Wool Wool Diclofenac Sodium Date Verified: 04/20/20 Lab Values No results within the last 30 days for the following basenames: K,HCT Progress Notes ([facility] PREADMISSION TESTING): Jose M Moran, RN, RN 04/06/2020 2:32 PM Signed Called and spoke to Mr Dumont and per Dr Rodriguez he does not need to stop the Eliquis for the procedure on 04/20/2019 Patient was seen by cardiology and Pulmonary prior to procedure Jose M Moran BSN RN Progress Notes (CARD [facility]): Misti Martin Ma 03/26/2020 10:09 AM Signed Orion presents today for Routine visit.. Medication Refills needed today: No Pharmacy has been captured? Yes, please escript. Misti Baker MD 03/26/2020 11:22 AM Signed Orion Dumont is a 69 year old who presents today for Patient presents with: CARD Follow Up 3 Month: meds check INTERVAl HPI PAST MEDICAL HISTORY Diagnosis Date - Adjustment disorder with depressed mood hosp 95' - Atrial fibrillation (HCC) 11/03/2009 s/p ablation, on coumadin, OFF now. - Blood per rectum 06/04/12 broken blood vesel in rectum - BPH (benign prostatic hyperplasia) - Cataract of both eyes trace - DVT (deep venous thrombosis) (HCC) 01/12/2010 S/P IVC filter, occurred post-op, on anticoagulation (for a fib) - Essential hypertension, benign - Fatty liver 11-03-09 by us - GI bleed 06/29/12 - Morbid obesity (HCC) 04-21-09 stated BMI 51.1 Ht: 75 Wt: 410 lbs - Nephrolithiasis 2009 Ca Ox - OA (osteoarthritis) - LEXIE (obstructive sleep apnea) - Other and unspecified hyperlipidemia - Pain in joint, multiple sites neck, shoulders - Retinal detachment OD - Torn rotator cuff - UTI (lower urinary tract infection) PAST SURGICAL HISTORY Procedure Laterality Date - CARDIOVERSION - CYSTO W/RETRO. PYELOG. BILAT. 01/30/2010 CYSTOSCOPY, RETROPYELOGRAM performed by RADHA OLIVAREZ at OR - CYSTO W/URET STENT INSERTION 01/30/2010 CYSTOSCOPY, INSERTION STENT URETERAL J performed by RADHA OLIVAREZ at OR - CYSTO.PANENDO 06/16/2017 Cystoscopy - DISKECTOMY, LUMBAR, SINGLE SP 1981 L4-5 - GASTRIC BYPASS HX - PAST SURGICAL HISTORY OF 1967 left hip pin - PAST SURGICAL HISTORY OF 04/23/12 heart surgery - PAST SURGICAL HISTORY OF 06/04/12 stitches for broken blood vesel in rectum - REDUCE BOWEL OBSTRUCTION 06/24/10 Performed by [facility] - REMOVAL GALLBLADDER 11/18/13 - REMOVAL OF KIDNEY STONE 05/02/12 - REPAIR DETACH RETINA,SCLERAL BUCKLE 10/2009 od Scleral Buckle - REPAIR DETACH RETINA,SCLERAL BUCKLE 08/05/2013 SB (Scleral Buckle)/ cyro os - TOTAL HIP REPLACEMENT 1993 left - VITRECTOMY,MECHANICAL 09/03/2013 PPV / EL / gas OS FAMILY HISTORY Problem Relation Age of Onset - Ischemic Heart Disease Father - Diabetes Mother - other (Other) Mother - Diabetes Sister - Cataract Sister - Detached Retina Sister SOCIAL HISTORY Social History Tobacco Use - Smoking status: Never Smoker - Smokeless tobacco: Never Used Substance Use Topics - Alcohol use: No - Drug use: No Rivaroxaban, Sulfa (Sulfonamide Antibiotics), Adhesive Tape (Rosins), Wool, Wool, and Diclofenac Sodium Current Outpatient Medications Medication Sig - alfuzosin SR (UROXATRAL) 10 mg 24 hr tablet TAKE 1 TABLET ONCE DAILY - midodrine (PROAMATINE) 10 mg tablet TAKE 1 TABLET 3 TIMES A DAY (Patient taking differently: Take 10 mg by mouth twice daily. ) - pantoprazole DR (PROTONIX) 20 mg tablet TAKE TWO TABLETS BY MOUTH ONCE DAILY 30 MINUTES BEFORE BREAKFAST (Patient taking differently: Take 40 mg by mouth once daily. ) - polyethylene glycol 3350 (MIRALAX, GLYCOLAX) 17 gram/dose powder TAKE DIRECTED PRIOR TO COLONOSCOPY. MIX WITH 64 OUNCES OF GATORADE. - bisacodyl EC (DULCOLAX) 5 mg EC tablet TAKE BY MOUTH DIRECTED FOR BOWEL PREP - apixaban (ELIQUIS) 5 mg tab(s) Take 1 tablet by mouth twice daily. - metoprolol succinate ER (TOPROL XL) 25 mg 24 hr tablet Take 1 tablet by mouth once daily. - albuterol HFA (PROAIR HFA) 90 mcg/actuation inhaler 2 Puffs every 4 hours as needed for Wheezing/Shortness of Breath. Take as directed - atorvastatin (LIPITOR) 20 mg tablet Take 20 mg by mouth once daily. - multivitamin tablet Take by mouth. - sertraline (ZOLOFT) 100 mg tablet Take 1 tablet by mouth once daily. - cholecalciferol (VITAMIN D3) 2,000 unit tablet Take 1 tablet by mouth daily with dinner. (Patient taking differently: Take 2,000 Units by mouth twice daily. ) - busPIRone (BUSPAR) 15 mg tablet Take 1 tablet by mouth twice daily. - pyridoxine (VITAMIN B-6) 100 mg tablet Take 2 tablets by mouth twice daily. - calcium citrate-vitamin D3 (CITRACAL + D) 315-200 mg-unit tab Take 1 tablet by mouth four times daily. With each meal. (Patient taking differently: Take 1 tablet by mouth twice daily with meals. With each meal. ) - docusate sodium 100 mg capsule Take 1 capsule by mouth twice daily as needed for Constipation. - Oqsja0-YsoQ9-U48-E-FA -Fish Oil [id number] hr-nz-fub-mcg cap Take 600 mg by mouth twice daily. (Patient taking differently: Take 600 mg by mouth once daily. ) - buPROPion SR (WELLBUTRIN SR) 150 mg ORAL 12 hr tablet Take 1 tablet by mouth twice daily. - diclofenac sodium (VOLTAREN) 1 % topical gel Apply to affected area every 4 hours as needed. Current Facility-Administered Medications Medication Dose Route Frequency - lidocaine (PF) 10 mg/mL (1 %) 4 mL injection (XYLOCAINE) 4 mL Injection - FOR ORTHO USE ONLY - triamcinolone acetonide 40 mg injection (KENALOG 40) 40 mg Injection - FOR ORTHO USE ONLY - [] lidocaine (PF) 10 mg/mL (1 %) 8 mL injection (XYLOCAINE) 8 mL Injection - FOR ORTHO USE ONLY - [] triamcinolone acetonide 40 mg injection (KENALOG 40) 40 mg Injection - FOR ORTHO USE ONLY Specialty Problems Cardiology Problems Dieulafoy lesion (hemorrhagic) of intestine DVT (deep venous thrombosis) (HCC) Pulmonary embolism (HCC) Varicose veins Pericarditis Orthostatic hypotension Atrial fibrillation with RVR (HCC) Chest pain Syncope LABS: Component Latest Ref Rng AND Units 06/13/2019 03/20/2020 WBC 3.70 - 11.00 k/uL 7.55 RBC 4.20 - 6.00 m/uL 4.48 Hemoglobin 13.0 - 17.0 g/dL 12.9 (L) Hematocrit 39.0 - 51.0 % 39.2 MCV 80.0 - 100.0 fL 87.5 MCH 26.0 - 34.0 pG 28.8 MCHC 30.5 - 36.0 g/dL 32.9 RDW-CV 11.5 - 15.0 % 14.9 Platelet Count 150 - 400 k/uL 302 MPV 9.0 - 12.7 fL 10.4 Absolute nRBC <0.01 k/uL <0.01 Cholesterol, Total <200 mg/dL 128 Triglyceride <200 mg/dL 51 HDL Cholesterol >39 mg/dL 63 LDL Cholesterol <100 mg/dL 55 Non HDL Cholesterol <130 mg/dL 65 Fasting Time hrs Unknown VLDL Cholesterol <30 mg/dL 10 TC:HDL Ratio <5.10 2.03 LDL:HDL Ratio <2.54 0.87 Iron 35 - 150 ug/dL 64 TIBC 250 - 450 ug/dL 288 Transferrin Saturation 20 - 55 % 22 Hemoglobin A1C 4.3 - 5.6 % 5.7 (H) Estimated Average Glucose mg/dL 117 PTH, Intact 15 - 65 pg/mL 41 TSH 0.270 - 4.200 uU/mL 2.780 Vitamin B12 232 - 1,245 pg/mL 1,346 (H) Vitamin D 25 Hydroxy 31.0 - 80.0 ng/mL 57.0 CARDIAC TESTING: Echocardiography Report: Transthoracic Echo [facility] Date of service: 01/22/2019 8:35:29 AM Ordering physician: MELINDA DILLARD Indication: Shortness of Breath ? Technologist: Kassie Hernandez [facility],Student Interpreting physician: Smith Smith MD ? PATIENT: Name: ORION DUMONT : 1950 Age: 68 years Gender: M History of arrhythmia, hypertension, syncope and pericarditis. Previous cardiovascular interventions: Maze Procedure 2012 Primary rhythm: atrial fib. Height: 185.42 cm BSA: 2.46 m? Weight: 117.93 kg BMI: 34.3 kg/m? ? Heart rate ? ? 85 bpm Blood pressure 113/74 mmHg Color Doppler was utilized to interrogate the cardiac valves assessed and spectral ?Doppler was utilized to determine the flow velocities and pressure gradients reported in this exam. ? MEASUREMENTS: ?Value ? Indexed ? ?Normal Max aortic dimension ? ? 3.3 cm ?Ao < 3.8 Left atrium diameter ? ? 5.4 cm (M-Mode) Left atrial volume ? ? ? 89 ml (biplane A-L) 36 ml/m? ? Nina <= 34 LV ID (diastole) ? 5.5 cm (2D) LV ID (systole) ?3.6 cm (2D) IVS, leaflet tips ?1.2 cm (2D) Posterior wall thickness 0.9 cm (2D) Left ventricular mass ? ?230 g (2D) ?93 g/m? LV stroke volume ? 37 ml (2D biplane) LV end diastolic volume ?103 ml (2D biplane) 41.8 ml/m? 34<=EDVi<75 LV end systolic volume ? 66 ml (2D biplane) ?27.0 ml/m? Ejection Fraction ?36 % (2D biplane) ?EF > 52 ? FINDINGS: ? LEFT VENTRICLE The left ventricle is normal in size. Left ventricular systolic function is moderately decreased. Left ventricular diastolic function was not evaluated due to AF. Wall Motion: The anterolateral wall, mid inferoseptal segment, and basal inferoseptal segment are severely hypokinetic. The apical lateral segment, apical septal segment, basal ?anterior segment, basal inferior segment, and apex are mildly hypokinetic. ? ? RIGHT VENTRICLE The right ventricle is dilated. Right ventricular systolic function is low normal. Estimated right ventricular systolic pressure is 20 mmHg plus right atrial pressure. Estimated right atrial pressure is not included as the IVC was not seen. ? LEFT ATRIUM The left atrial cavity is mildly dilated. Pulmonary Veins: the pulmonary venous pattern showed normal systolic flow. RIGHT ATRIUM The right atrial cavity is dilated. ? MITRAL VALVE [place] mitral valve. There is no mitral stenosis. There is trace mitral valve regurgitation. ? TRICUSPID VALVE [place] tricuspid valve. There is no tricuspid stenosis. There is mild (1+) tricuspid valve regurgitation. ? AORTIC VALVE There is no aortic valve stenosis. There is no aortic valve regurgitation. Tricuspid aortic valve. ? PULMONIC VALVE There is no pulmonic stenosis. There is no pulmonic valve regurgitation. ? AORTA The visualized aorta is normal in size. Measurements - Sinus 3.2 cm. Sinotubular junction 2.4 cm. Mid ascending aorta 3.3 cm. INTERVENTRICULAR SEPTUM The interventricular septum is normal. ? CONCLUSIONS: - Exam indication: Shortness of Breath - The left ventricle is normal in size. Left ventricular systolic function is moderately decreased. EF = 36 ? 5% (2D biplane) Left ventricular diastolic function was not evaluated due to AF. - The right ventricle is dilated. Right ventricular systolic function is low normal. - The left atrial cavity is mildly dilated. - The right atrial cavity is dilated. - Exam was compared with the prior echocardiographic exam performed on 11/03/2018 - ejection fraction has decreased from 50 - 36%. ? Last 3 Encounter BP Readings: Date: BP: 03/16/2020 82/52 01/02/2020 112/64 09/27/2019 119/85 Last 3 Encounter Pulse Readings: Date: Pulse: 03/20/2020 113 03/20/2020 113 03/16/2020 88 Last 3 Encounter Wt Readings: Date: Wt: 03/20/2020 105 kg (231 lb 6.4 oz) 03/20/2020 104.8 kg (231 lb) 03/16/2020 104.7 kg (230 lb 12.8 oz) PHYSICAL EXAMINATION: Ht 185.4 cm (6' 1) BMI 30.48 kg/m? Body mass index is 30.48 kg/m?. GENERAL: Alert, oriented., Well appearing. No jaundice, anemia, clubbing, or cyanosis. ENT:Hearing normal, no speech or swallowing difficulties. No epistaxix NECK: + JVD, masses, or thyromegaly. Good carotid upstrokes. No carotid bruit. No lymphadenopathy. CARDIAC: AF. Normal S1 and S2. No murmur, rub or gallop. No parasternal heave or thrill. [place] not displaced. CHEST: Chest clear to auscultation. ABDOMEN: Soft, nontender, with no obvious organomegaly or masses. No epigastric bruit. EXTREMITIES :Normal, Normal pulses bilaterally., No Edema and No calf tenderness SKIN: Warm peripheries, no rash. NEURO: Awake, alert and oriented x 3, Cranial nerves II-XII grossly intact, Reflexes symmetrical, Normal gait and No involuntary motions ASSESSMENT AND PLAN patient is here for follow-up evaluation. He continues to have severe pain in his right hip that his crippling. Oxycodone is the only thing that gives him relief. He has the pain 31/10. 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 Meanwhile he will have to continue pain control as best as he can. He continues to be very short of breath with minimal effort. Cardiopulmonary workup has been done. He does not have obstructive coronary disease or valvular disease, LV function is normal to mildly impaired, he has chronic atrial fibrillation with a controlled ventricular rate. He does not have pulmonary hypertension. From the pulmonary point of view he has had PFTs that are normal including a normal diffusion capacity. He did have a right lower lobe subsegmental pulmonary embolus after his rotator cuff surgery, does not need oxygen at rest. He is not anemic. He is not on any drugs that would cause tachypnea. Cannot exclude small pulmonary infarctions peripherally but he has been on Eliquis and there is no evidence of new PEs. He does not have restrictive heart disease as far as we can tell. From the cardiac standpoint atrial fibrillation has been chronic, he has had multiple cardioversions and has settled in chronic atrial fibrillation. Rate is reasonably well controlled. He is on metoprolol which should not cause much of a pulmonary issue but it might be worthwhile to change this to bisoprolol as a more cardioselective beta-edgar. We will try this drug at 5 mg a day. Ex No other recommendations from our standpoint, he finds it very difficult to come to see us from [facility] and he was encouraged to see his local parts salesman at this [facility] facility there for his routine management. We will be happy to see him on a more intermittent basis given his transportation difficulties, or whenever he wishes. No change in his medications as listed today. Leonides Baker MD Previous Version Normal [facility] HISTORY PHYSICALon 0 HISTORY PHYSICAL HNO ID: [id number] Author: Lamberto Sepulveda Service: ? Author Type: Physician Type: HANDP Filed: 06/24/2019 12:03 PM Note Text: UPDATED HISTORY AND PHYSICAL EXAMINATION PATIENT NAME: Orion Dumont SERVICE DATE: 06/24/2019 PHYSICAL EXAM MUST BE COMPLETED ON ADMISSION The History and Physical (completed in the past 30 days) has been reviewed and the patient has been examined. The contents accurately reflect the patient's condition with the following additions or revisions since the HANDP was completed. Examination indicates no changes. This HANDP can be found in the Electronic Medical Record dated 06/18/[address] Silva. Risk, benefits, and alternatives of surgery explained to patient by surgeon with explicit agreement by patient or patient sales and merchandising representative before surgery. SIGNATURE: Lamberto Sepulveda MD DATE: June 24, 2019 TIME: 12:03 PM [facility] NURSING PROGon 06-24-2019 NURSING PROG HNO ID: [id number] Author: Kerry ColeRn) MICHAEL Antonio Service: ? Author Type: Registered Nurse Type: Nursing Progress Note Filed: 06/24/2019 12:59 PM Note Text: Nursing Progress Note Patient Name: Orion Dumont Patient Location: [facility] Daily Note: Equal strength in lower bilateral extremities with +2 DP/PT pulses This note was completed by: Kerry Antonio RN [facility] NURSING PROG HNO ID: [id number] Author: Kerry Amaya) MICHAEL Antonio Service: ? Author Type: Registered Nurse Type: Nursing Progress Note Filed: 06/24/2019 12:23 PM Note Text: Nursing Progress Note Patient Name: Orion Dumont Patient Location: [facility]OL Daily Note: Equal strength in lower extremities with push/pulls and + 2 DP/PT pulses This note was completed by: Kerry Antonio RN [facility] OPERATIVE NOon 06-24-2019 OPERATIVE NO HNO ID: [id number] Author: Lamberto Sepulveda Service: ? Author Type: Physician Type: Operative Report Filed: 06/24/2019 12:45 PM Note Text: OPERATIVE/PROCEDURE REPORT LOG ID: [id number] Surgery/Procedure Date: 06/24/2019 Surgeon: Lamberto Sepulveda MD Director Of Psychology: Joseph Raza DO Procedure(s):Operatio n: right Intra-articular hip injection(s) Pre-Op/Pre-Procedure Diagnosis: right Hip pain Post-Op Diagnosis: same Anesthesia: Local 0mg of IV versed was used with 2 min of intraservice monitoring time. Fluoroscopy time: 12.7 sec Time In: 12:38 pm Time out: 12:40 pm Estimated Blood Loss: None Specimens: None Drains: None Complications: None INDICATIONS: The patient has been referred by my colleague Dr Silva with concordant subjective, objective, and radiologic findings of right hip/groin pain, referred for diagnostic and therapeutic right intra-articular hip injection(s) with failure of prior conservative care with physical therapy and medications alone. At this time, the patient wishes to avoid surgery. This is the patient's 2nd injection under my care. Had Right L5 TF BEULAH on 06/10/2019 with 75 % relief PROCEDURE: After obtaining both verbal and written informed consent, the patient was placed in a Supine position on the fluoroscopic table in [facility] procedure room, the patient's right anterior groin was prepped and draped in usual sterile fashion using iodine. The patient was connected to noninvasive blood pressure, EKG, pulse oximetry monitoring, and monitored by a registered interventional nurse throughout the procedure. Before initiating procedure, all relevant information was verified in a time-out. One Skin wheal(s) were raised using 1% preservative-free lidocaine near the right groin. The neurovascular bundle was palpated and retracted medially. Through the skin wheal a 22-gauge, 3-1/2-inch curved Quincke-tip spinal needle was inserted and advanced under direct fluoroscopic visualization in the AP plane, until the needle tip arrived at the intertrochanteric line of the right hip(s). Proper needle placement was confirmed with 4 cc of Omnipaque-180M nonionic contrast confirming good intra-articular flow of contrast in the hip joint without any intravascular uptake of contrast seen under live direct fluoroscopic visualization in the AP and contralateral oblique. At this point 40 mg Kenalog and 4 cc of 0.75% preservative- free bupivacaine were infused in the intra-articular space. Adequate hemostasis was obtained at the needle puncture site. The patient's groin was cleaned and a sterile dressing was applied. The patient was taken conscious and in stable condition to the recovery room. No complications as a result of this procedure. Post procedure precautions and instructions were reviewed with the patient who verbalized understanding. I/primary surgeon/proceduralist performed the procedure with assistance. Significant Findings: Good flow. Pre-Op Pain: 3. Post-Op Pain: 0. The patient had positive provocative test on physical exam prior to injection. The patient had no pain with the same provocative test after injection. Care Instructions: Discharge per protocol. Medications: See Epic medication section Appointment: Patient to return 12 weeks to clinic with pain diary. Discharge Condition: Good condition for discharge. Patient discharged home when all discharge criterion met. Lamberto Sepulveda MD Staff Physician [facility] SIGNATURE: Lamberto Sepulveda MD PATIENT NAME: Orion Dumont DATE: June 24, 2019 TIME: 12:43 PM PAGER/CONTACT #: [facility] PT EDon 06-24-2019 PT ED HNO ID: [id number] Author: Kerry Valdez (Michael) MICHAEL Antonio Service: ? Author Type: Registered Nurse Type: Patient Education Filed: 06/24/2019 12:59 PM Note Text: PATIENT EDUCATION TOPIC: PROCEDURE / SURGERY: Post Procedure Teaching: Symptom Management PATIENT NAME: Orion Dumont PATIENT LOCATION: D[facility] POOL/DICK PAIN POOL READINESS TO LEARN COGNITIVE ABILITY: Alert and oriented MOTIVATION TO LEARN: Eager FAMILY SUPPORT: High - Very involved in pt care INSTRUCTION PROVIDED TO: Patient and family member PATIENT LEARNS BEST BY: Written Instruction - Hand-outs Verbal Instruction FACTORS AFFECTING LEARNING: None PHYSICAL LIMITATIONS AFFECTING LEARNING: None LEARNING RESPONSE PATIENT/FAMILY RESPONSE: Verbalizes understanding of: POST-PROCEDURE INSTRUCTIONS-Correct actions to take to reduce post procedure complications METHOD OF INSTRUCTION: Written instruction - handouts Verbal instruction FOLLOW-UP PLAN: Complete - No need for follow-up INSTRUCTIONAL AIDS USED: NA SUPPLEMENTAL MATERIAL PROVIDED TO PATIENT: None REFERRAL (RECOMMENDATION): None Electronically Signed By: Kerry Antonio RN [facility] PT ED HNO ID: [id number] Author: Kerry Valdez (Rn) MICHAEL Antonio Service: ? Author Type: Registered Nurse Type: Patient Education Filed: 06/24/2019 12:24 PM Note Text: PATIENT EDUCATION TOPIC: PROCEDURE / SURGERY: Pre Procedure Teaching: Logistics PATIENT NAME: Orion Dumont PATIENT LOCATION: DICK PAIN POOL/DICK PAIN POOL READINESS TO LEARN COGNITIVE ABILITY: Alert and oriented MOTIVATION TO LEARN: Eager FAMILY SUPPORT: High - Very involved in pt care INSTRUCTION PROVIDED TO: Patient PATIENT LEARNS BEST BY: Verbal Instruction FACTORS AFFECTING LEARNING: None PHYSICAL LIMITATIONS AFFECTING LEARNING: None LEARNING RESPONSE PATIENT/FAMILY RESPONSE: Verbalizes understanding of: PRE-PROCEDURE INSTRUCTIONS-Correct action to take to follow pre-procedure instructions METHOD OF INSTRUCTION: Verbal instruction FOLLOW-UP PLAN: Complete - No need for follow-up INSTRUCTIONAL AIDS USED: NA SUPPLEMENTAL MATERIAL PROVIDED TO PATIENT: None REFERRAL (RECOMMENDATION): None Electronically Signed By: Kerry Antonio RN [facility] HOSPon 06-20-2019 HOSP Patient:Mike Dumont MRN: Height:6' 1(1.854 m) Weight:222 lb (100.699 kg) Outpatient Medications as of 06/24/19: apixaban (ELIQUIS) 5 mg tab(s) diclofenac sodium (VOLTAREN) 1 % topical gel midodrine (PROAMATINE) 10 mg tablet metoprolol succinate ER (TOPROL XL) 25 mg 24 hr tablet alfuzosin SR (UROXATRAL) 10 mg 24 hr tablet albuterol HFA (PROAIR HFA) 90 mcg/actuation inhaler atorvastatin (LIPITOR) 20 mg tablet multivitamin tablet sildenafil (VIAGRA) 50 mg tablet sertraline (ZOLOFT) 100 mg tablet cholecalciferol (VITAMIN D3) 2,000 unit tablet busPIRone (BUSPAR) 15 mg tablet pyridoxine (VITAMIN B-6) 100 mg tablet calcium citrate-vitamin D3 (CITRACAL + D) 315-200 mg-unit tab docusate sodium 100 mg capsule [id number] -Fish Oil [id number] iq-yv-kcl-mcg cap buPROPion SR (WELLBUTRIN SR) 150 mg ORAL 12 hr tablet Admission/Clinic Administered Medications as of 06/24/19: Patient has no admission medications. 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] Wound check, abscess [Z51.89] Varicose veins [I83.90] Anticoagulation management encounter [Z51.81, Z79.01] skilled nursing (current) use of anticoagulants [Z79.01] 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] Rhinitis [J31.0] Nephrolithiasis [N20.0] Ulcer of perianal area (HCC) [L98.499] 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] Upper GI bleed [K92.2] MSSA (methicillin susceptible Staphylococcus aureus) infection [A49.01] 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] SUMMARY [V999.95] DVT prophylaxis [Z29.9] Pericarditis [I31.9] History of gastric bypass [Z98.84] Vitamin D deficiency [E55.9] Iron deficiency anemia [D50.9] Orthostatic hypotension [I95.1] Postsurgical dumping syndrome [K91.1] Hip joint replacement by other means [Z96.649] Other symptoms involving nervous and musculoskeletal systems(781.99) [R29.818, R29.898] Torn rotator cuff [M75.100] Atrial fibrillation with RVR (HCC) [I48.91] Ingrown toenail [L60.0] NO SHOW [631704] Retinal detachment [H33.20] Shoulder pain [M25.519] Epiretinal membrane [H35.379] Gall stones, common bile duct [K80.50] Diplopia [H53.2] 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] Muscle weakness (generalized) [M62.81] Disorders of bursae and tendons in shoulder region, unspecified [M71.9, M67.919] 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] Pseudophakia, both eyes [Z96.1] Alternating exotropia with noncommitance other than A OR V pattern [H50.18] 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] Visit for monitoring Tikosyn therapy [Z51.81, Z79.899] emt intermediate current use of anticoagulant [Z79.01] On bridging treatment with lovenox [Z79.01] Pseudophakia of both eyes [Z96.1] Enteric hyperoxaluria [R82.992] 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] Presence of intraocular lens [Z96.1] Bilateral posterior capsular opacification [H26.493] History of detached retina repair [Z98.890, Z86.69] Strabismus [H50.9] BPH with urinary obstruction [N40.1, N13.8] Microhematuria [R31.29] Obesity, Class II, BMI 35-39.9 [E66.9] Chest pain [R07.9] Left lower quadrant pain [R10.32] Left leg swelling [M79.89] Syncope [R55] Allergies: Rivaroxaban Sulfa (Sulfonamide Antibiotics) Adhesive Tape (Rosins) Wool Wool Diclofenac Sodium Date Verified: 06/24/19 Lab Values Lab Value Units Date High Low POTA* 4.3 mmol/L 06/13/2019 5.0 3.5 Progress Notes ([facility]US [facility]W ): Cruzito Silva MD 06/18/2019 9:42 AM Signed SPINE SURGERY ESTABLISHED DATE OF SERVICE: 06/18/2019 DATE OF LAST VISIT: 06/04/2019 SUBJECTIVE: HPI:Orion Dumont is a 68 year old male who was last seen on 06/04/19 where he complained of lower back and right buttock/hip pain. On 06/10/19 he underwent right L5-S1 Transforaminal epidural steroid injection which relieved his back pain and improved hip pain 80% which is still helping. He now only complains of localized right hip pain. No new onset symptoms REVIEW OF SYSTEMS: GENERAL: No weight loss or malaise MUSCULOSKELETAL: Negative for joint pain, swelling or muscle pain NEURO: No history of headaches, syncope, paralysis, seizures or tremors MEDICATIONS: apixaban (ELIQUIS) 5 mg tab(s) Take 1 tablet by mouth twice daily. midodrine (PROAMATINE) 10 mg tablet Take 1 tablet by mouth three times daily. metoprolol succinate ER (TOPROL XL) 25 mg 24 hr tablet Take 1 tablet by mouth once daily. alfuzosin SR (UROXATRAL) 10 mg 24 hr tablet TAKE 1 TABLET ONCE DAILY albuterol HFA (PROAIR HFA) 90 mcg/actuation inhaler 2 Puffs every 4 hours as needed for Wheezing/Shortness of Breath. Take as directed atorvastatin (LIPITOR) 20 mg tablet Take 20 mg by mouth once daily. multivitamin tablet Take by mouth. sildenafil (VIAGRA) 50 mg tablet Take 50 mg by mouth. sertraline (ZOLOFT) 100 mg tablet Take 1 tablet by mouth once daily. cholecalciferol (VITAMIN D3) 2,000 unit tablet Take 1 tablet by mouth daily with dinner. busPIRone (BUSPAR) 15 mg tablet Take 1 tablet by mouth twice daily. pyridoxine (VITAMIN B-6) 100 mg tablet Take 2 tablets by mouth twice daily. calcium citrate-vitamin D3 (CITRACAL + D) 315-200 mg-unit tab Take 1 tablet by mouth four times daily. With each meal. docusate sodium 100 mg capsule Take 1 capsule by mouth twice daily as needed for Constipation. Ijcly7-[id number]-E-FA -Fish Oil [phone] xe-ij-otm-mcg cap Take 600 mg by mouth twice daily. buPROPion SR (WELLBUTRIN SR) 150 mg ORAL 12 hr tablet Take 1 tablet by mouth twice daily. diclofenac sodium (VOLTAREN) 1 % topical gel Apply to affected area every 4 hours as needed. Patient Entered Questionnaires Spine Questions 06/04/2019 06/18/2019 Pain Location: Lower back Leg Pain Duration: 3-6 months - Symptoms from neck/cervical spine: Yes Yes Employment Status: Working now - Involved in law suit/legal claim: No - Neck Questionnaires 06/04/2019 Benzel Modified DAPHNE Score 13 (A lower score indicates increased pain and issues.) Low Back Pain Questionnaires 06/04/2019 STarT Risk Score 5 (High risk for prolonged disability) STarT Distress Score 5 STarT Total Score 9 SHASHANK Score 68.88 (Crippled) PROMIS Score Percentiles Physical Health 06/04/2019 Physical Function Percentile 1 % Sleep Percentile 7 % Fatigue Percentile 3 % Pain Interference Percentile 0 % Social Health 06/04/2019 Social Role Satisfaction Percentile 2 % PROMIS Global Health Scale 06/04/2019 Physical Health Percentile 0 % Mental Health Percentile 2 % Percentiles provide an indication of how the patient's score ranks in relation to the general population. Higher percentile rankings indicate better function/quality of life. 50th percentile is the average of the general population and indicates half of respondents had a worse score. Depression Screening: PHQ-9 06/12/2013 12/13/2013 06/04/2019 Score 10 18 20 PHQ-9 Self Harm 06/12/2013 12/13/2013 06/04/2019 Score 0 0 0 PHQ-9 Self-Harm (Item 9) response options: 0 Not at all 1 Several days 2 More than half the days 3 Nearly every day PHQ-9 Levels: 0-4 No to mild depression 5-9 Mild depression 10-14 Moderate depression 15-19 Moderately severe depression 20-27 Severe depression OBJECTIVE: PHYSICAL EXAM: BP 91/58 Pulse 78 Temp 97.7 Ht 6' 1 (1.85m) Wt 222 lb (100.7kg) SpO2 96% BMI 29.30 kg/(m2). GENERAL APPEARANCE: Well nourished, well developed, and no apparent distress. NEURO PSYCH: Patient oriented to person, place, and time. Mood pleasant. Benign affect. MUSCULOSKELETAL VISUAL INSPECTION CERVICAL: WNL THORACIC: WNL LUMBAR: WNL MOTOR: 5/5 in all muscle groups. restricts right hip flexion due to pain SENSORY: Normal sensory exam GAIT: Antalgic. DATA REVIEW:Diagnostic tests reviewed for today's visit, films/specimens were personally reviewed by me: [facility] records reviewed Imaging and outside records reviewed Images reviewed with the patient ASSESSMENT/PLAN Mr Dumont is a pleasant 68 year old male is in spine surgery clinic with history of?lower back and right leg pain for the past 6 months. Lower back pain radiates to right buttock and hip. His pain is severe and greatly affects his activity. He denies numbness and tingling in the extremities or left leg symptoms ? On 06/10/19 he underwent right L5-S1 Transforaminal epidural steroid injection which relieved his back pain and improved hip pain 80% which is still helping. He now only complains of localized right hip pain. No new onset symptoms Tried physical therapy without much help. Evaluated by orthopedic surgeon for hip pathology. Received right hip trochanteric bursa injection with a 20% pain relief. No previous spine surgery. Has IVC filter which is not MRI compatible. ? Neurological examination showed no motor or sensory deficit. Mild left trochanteric bursa tenderness. No trochanteric bursa tenderness over right side. ? CT lumbar spine done in 2019 showed lumbar canal stenosis at L3 4, L4 5 level. Mild degenerative scoliosis. CT myelogram showed mild lumbar canal stenosis at L3 4 level. Mild bilateral foraminal stenosis at L5-S1 and left-sided foraminal stenosis at L2-3 level. ? Discussed clinical, imaging finding. Showed his images and explained in detail. Discussed treatment option for lower back and leg pain which includes continuing conservative treatment with the pain medication, back strengthening exercises, repeat epidural injection. Considering mild canal stenosis and bilateral foraminal stenosis I don't think he requires surgical intervention at present. Currently epidural injection is helping his pain. He can consider another epidural injection if pain returns. Follow up in spine surgery clinic at 4 months The majority of the visit was spent counseling and/or coordinating care for the patient. The patient was counseled regarding low back pain, right hip pain, lumbar spinal stenosis, lumbar foraminal stenosis. Total face to face time was 25 minutes. SIGNATURE: Cruzito Silva MD PATIENT NAME: Orion Dumont DATE: June 18, 2019 TIME: 8:48 AM PAGER: Previous Version Progress Notes ([facility]): Betty Shane APRN.CNP 06/14/2019 2:41 PM Sign when Signing Visit PULMONARY MEDICINE ESTABLISHED PATIENT FOLLOW-UP SERVICE DATE: June 14, 2019 SERVICE TIME: 2:06 PM PRIMARY CARE PHYSICIAN: Preethi Portillo MD SUBJECTIVE CHIEF COMPLAINT: SOB HPI :Orion Dumont is a 68 year old male who presents today for follow up PMH includes SOB, LEXIE, chronic fatigue, .Afib, spinal stenosis Smoking Today patient feels his breathing is much improved after taking steroids. Denies coughing wheezing, (Please see Assessment and Plan for further HPI details) HISTORY: PAST MEDICAL HISTORY Diagnosis Date - Adjustment disorder with depressed mood hosp 95' - Atrial fibrillation (HCC) 11/03/2009 s/p ablation, on coumadin, OFF now. - Blood per rectum 06/04/12 broken blood vesel in rectum - BPH (benign prostatic hyperplasia) - Cataract of both eyes trace - DVT (deep venous thrombosis) (HCC) 01/12/2010 S/P IVC filter, occurred post-op, on anticoagulation (for a fib) - Essential hypertension, benign - Fatty liver 11-03-09 by us - GI bleed 06/29/12 - Morbid obesity (HCC) 04-21-09 stated BMI 51.1 Ht: 75 Wt: 410 lbs - Nephrolithiasis 2009 Ca Ox - OA (osteoarthritis) - LEXIE (obstructive sleep apnea) - Other and unspecified hyperlipidemia - Pain in joint, multiple sites neck, shoulders - Retinal detachment OD - Torn rotator cuff - UTI (lower urinary tract infection) PAST SURGICAL HISTORY Procedure Laterality Date - CARDIOVERSION - CYSTO W/RETRO. PYELOG. BILAT. 01/30/2010 CYSTOSCOPY, RETROPYELOGRAM performed by RADHA OLIVAREZ at OR - CYSTO W/URET STENT INSERTION 01/30/2010 CYSTOSCOPY, INSERTION STENT URETERAL J performed by RADHA OLIVAREZ at OR - CYSTO.PANENDO 06/16/2017 Cystoscopy - DISKECTOMY, LUMBAR, SINGLE SP 1981 L4-5 - GASTRIC BYPASS HX - PAST SURGICAL HISTORY OF 1967 left hip pin - PAST SURGICAL HISTORY OF 04/23/12 heart surgery - PAST SURGICAL HISTORY OF 06/04/12 stitches for broken blood vesel in rectum - REDUCE BOWEL OBSTRUCTION 06/24/10 Performed by RAN - REMOVAL GALLBLADDER 11/18/13 - REMOVAL OF KIDNEY STONE 05/02/12 - REPAIR DETACH RETINA,SCLERAL BUCKLE 10/2009 od Scleral Buckle - REPAIR DETACH RETINA,SCLERAL BUCKLE 08/05/2013 SB (Scleral Buckle)/ cyro os - TOTAL HIP REPLACEMENT 1993 left - VITRECTOMY,MECHANICAL 09/03/2013 PPV / EL / gas OS ALLERGIES Rivaroxaban; Sulfa (Sulfonamide Antibiotics); Adhesive Tape (Rosins); Wool; Wool; Diclofenac Sodium MEDICATIONS apixaban (ELIQUIS) 5 mg tab(s) Take 1 tablet by mouth twice daily. diclofenac sodium (VOLTAREN) 1 % topical gel Apply to affected area every 4 hours as needed. midodrine (PROAMATINE) 10 mg tablet Take 1 tablet by mouth three times daily. metoprolol succinate ER (TOPROL XL) 25 mg 24 hr tablet Take 1 tablet by mouth once daily. alfuzosin SR (UROXATRAL) 10 mg 24 hr tablet TAKE 1 TABLET ONCE DAILY albuterol HFA (PROAIR HFA) 90 mcg/actuation inhaler 2 Puffs every 4 hours as needed for Wheezing/Shortness of Breath. Take as directed atorvastatin (LIPITOR) 20 mg tablet Take 20 mg by mouth once daily. multivitamin tablet Take by mouth. sildenafil (VIAGRA) 50 mg tablet Take 50 mg by mouth. sertraline (ZOLOFT) 100 mg tablet Take 1 tablet by mouth once daily. cholecalciferol (VITAMIN D3) 2,000 unit tablet Take 1 tablet by mouth daily with dinner. busPIRone (BUSPAR) 15 mg tablet Take 1 tablet by mouth twice daily. pyridoxine (VITAMIN B-6) 100 mg tablet Take 2 tablets by mouth twice daily. calcium citrate-vitamin D3 (CITRACAL + D) 315-200 mg-unit tab Take 1 tablet by mouth four times daily. With each meal. docusate sodium 100 mg capsule Take 1 capsule by mouth twice daily as needed for Constipation. [id number] -Fish Oil 520-91-521-800 ww-ts-zua-mcg cap Take 600 mg by mouth twice daily. buPROPion SR (WELLBUTRIN SR) 150 mg ORAL 12 hr tablet Take 1 tablet by mouth twice daily. FAMILY HISTORY Problem Relation Age of Onset - Ischemic Heart Disease Father - Diabetes Mother - other (Other) Mother - Diabetes Sister - Cataract Sister - Detached Retina Sister Social History Tobacco Use - Smoking status: Never Smoker - Smokeless tobacco: Never Used Substance Use Topics - Alcohol use: No - Drug use: No COMPLETE REVIEW OF SYSTEMS: 12 point ROS was done and is significant for what is stated in HPI, otherwise negative. MRC Dyspnea Index Grade 1; no dyspnea except on strenuous exercise Grade 2: short of breath when walking up a short hill Grade 3: dyspnea limits walking pace (slower than others) and stops to catch breath Grade 4: stops to catch breath after walking 100 meters (328 ft) on level Grade 5: dyspnea prevents leaving house and performing ADLs OBJECTIVE PHYSICAL EXAM: There were no vitals taken for this visit. General appearance: alert, in no acute distress, well-hydrated, well nourished. Skin: Skin color, texture normal Nose/Sinuses: Nares normal, septum midline, mucosa normal, no drainage or sinus tenderness Oropharynx: Lips, mucosa Neck: Supple, no adenopathy Lungs: lungs clear to auscultation. No wheezing, rhonchi, rales Heart: RRR without murmur Abdomen: Normal abdominal exam Extremities: No deformities, edema, skin discoloration, clubbing or cyanosis. Good capillary refill. Neuro: Grossly intact DATA: Diagnostic tests reviewed for today's visit, films/specimens were personally reviewed by me: {DIAGNOSTIC TEST REVIEW:[id number]} ASSESSMENT AND PLAN: Was started on BB and eliquis Suspect SOB was multifactoral but his heart was a major contributing factor Will keep albutrol as needed and consider LABA/ISC if symptoms retun Will repeat PFT SIGNATURE: Betty Shane APRN.CNP PATIENT NAME: Orion Dumont DATE: June 14, 2019 TIME: 2:06 PM PAGER/CONTACT #: [facility] HISTORY PHYSICALon 0 HISTORY PHYSICAL HNO ID: [id number] Author: Lamberto Sepulveda Service: ? Author Type: Physician Type: HANDP Filed: 06/10/2019 11:18 AM Note Text: UPDATED HISTORY AND PHYSICAL EXAMINATION PATIENT NAME: Orion Dumont SERVICE DATE: 06/10/2019 PHYSICAL EXAM MUST BE COMPLETED ON ADMISSION The History and Physical (completed in the past 30 days) has been reviewed and the patient has been examined. The contents accurately reflect the patient's condition with the following additions or revisions since the HANDP was completed. Examination indicates no changes. This HANDP can be found in the Electronic Medical Record dated 06/02/[address] Silva. Risk, benefits, and alternatives of surgery explained to patient by surgeon with explicit agreement by patient or patient sales and merchandising representative before surgery. SIGNATURE: Lamberto Sepulveda MD DATE: June 10, 2019 TIME: 11:18 AM [facility] NURSING PROGon 06-10-2019 NURSING PROG HNO ID: [id number] Author: Milly (Rn) Jeison Saldana RN Service: Nursing Author Type: Registered Nurse Type: Nursing Progress Note Filed: 06/10/2019 12:27 PM Note Text: 1+ pedal pulses, dorsiflexion and NV checks intact bilaterally Normal [facility] OPERATIVE NOon 06-10-2019 OPERATIVE NO HNO ID: [id number] Author: Lamberto Sepulveda Service: ? Author Type: Physician Type: Operative Report Filed: 06/10/2019 12:17 PM Note Text: OPERATIVE/PROCEDURE REPORT LOG ID: [id number] Surgery/Procedure Date: 06/10/2019 Surgeon: Lamberto Sepulveda MD Director Of Psychology: Joseph Raza DO Procedure(s):Operatio n: right L5-S1 Transforaminal epidural steroid injection. Pre-Op/Pre-Procedure Diagnosis: Lumbosacral neuritis Post-Op Diagnosis: same Anesthesia: Procedural Sedation 0mg of IV versed was used with 13 min of intraservice monitoring time. Fluoroscopy time: 41.1 sec Time In: 11:57 am Time out: 12:10 pm Estimated Blood Loss: None Specimens: None Drains: None Complications: None INDICATIONS: The patient has been referred by my colleague Dr Silva with concordant subjective, objective, and radiologic findings of Lumbar radiculitis, referred for diagnostic and therapeutic right L3-L4, L4-L5 vs L5-S1 Transforaminal epidural steroid injection with failure of prior conservative care with physical therapy and medications alone. At this time, the patient wishes to avoid surgery. This is the patient's 1st injection under my care. Had spine surgery 1982 at [place] -Right IA hip injection on 03/04/2019 (Kenalog) with Ultrasound guidance by Dr Bennie Slaughter.wtih 100% relief for 3 days PROCEDURE: After obtaining both verbal and written informed consent, the patient was placed in a prone position on the fluoroscopic table in [facility] procedure room, the patient's posterior lumbosacral spine was prepped and draped in usual sterile fashion using iodine. The patient was connected to noninvasive blood pressure, EKG, pulse oximetry monitoring, and monitored by a registered interventional nurse throughout the procedure. Before initiating procedure, all relevant information was verified in a time-out. Three Skin wheal(s) were raised using 1% preservative-free lidocaine near the right L3-L4, L4-L5 and L5-S1 pedicle which was localized by counting from the intersection of the iliac crest. Through the skin wheal a 22-gauge, 3-1/2-inch curved Quincke-tip spinal needle was inserted and advanced under direct fluoroscopic visualization in the AP, ipsilateral oblique and lateral planes, until the needle tip arrived at the 6 o'clock position of the right L3-L4, L4-L5 and L5-S1 pedicle. Proper needle placement was confirmed with 4 cc of Omnipaque-180M nonionic contrast confirming good epidural flow of contrast and flow along the exiting right L3-L4, L4-L5 and L5-S1 nerve root without any intravascular uptake of contrast seen under live direct fluoroscopic visualization in the AP, oblique, and lateral planes. At this point 80 mg Depo-Medrol and preservative- free 1% Lidocaine 1 cc were infused in the epidural space. Adequate hemostasis was obtained at the needle puncture site. The patient's back was cleaned and a sterile dressing was applied. The patient was taken conscious and in stable condition to the recovery room. No complications as a result of this procedure. Post procedure precautions and instructions were reviewed with the patient who verbalized understanding. I/primary surgeon/proceduralist performed the procedure with assistance. Significant Findings: L5 mildly concordant. L3 and L4 not concordant. Pre-Op Pain: 6. Post-Op Pain: 0. Less pain in ischial bursa after procedure. Still had pain in with hip rotation Care Instructions: Discharge per protocol. Medications: See Epic medication section Appointment: Patient to return 4 weeks to clinic with pain diary. Consider Right IA hip injection with Xray guidance Discharge Condition: Good condition for discharge. Patient discharged home when all discharge criterion met. Lamberto Sepulveda MD Staff Physician [facility] SIGNATURE: Lamberto Sepulveda MD PATIENT NAME: Orion Dumont DATE: June 10, 2019 TIME: 12:13 PM PAGER/CONTACT #: [facility] PT EDon 06-10-2019 PT ED HNO ID: [id number] Author: Milly (Rn) Jeison Saldana RN Service: Nursing Author Type: Registered Nurse Type: Patient Education Filed: 06/10/2019 12:28 PM Note Text: PATIENT EDUCATION TOPIC: PROCEDURE / SURGERY: Post Procedure Teaching: Med Administration, Symptom Management and Wound Care PATIENT NAME: Orion Dumont PATIENT LOCATION: DICK PAIN POOL/DICK PAIN POOL READINESS TO LEARN COGNITIVE ABILITY: Alert and oriented MOTIVATION TO LEARN: Interested FAMILY SUPPORT: None - Unavailable/disintere sted INSTRUCTION PROVIDED TO: Patient PATIENT LEARNS BEST BY: Individual Instruction Verbal Instruction FACTORS AFFECTING LEARNING: None PHYSICAL LIMITATIONS AFFECTING LEARNING: None LEARNING RESPONSE PATIENT/FAMILY RESPONSE: Verbalizes understanding of: POST-PROCEDURE INSTRUCTIONS-Correct actions to take to reduce post procedure complications METHOD OF INSTRUCTION: Individual instruction Written instruction - handouts Verbal instruction FOLLOW-UP PLAN: Complete - No need for follow-up INSTRUCTIONAL AIDS USED: NA SUPPLEMENTAL MATERIAL PROVIDED TO PATIENT: None REFERRAL (RECOMMENDATION): None Electronically Signed By: Milly Rogers RN [facility] PT ED HNO ID: [id number] Author: Courtney Amaya) MICHAEL Mcfarlane Service: ? Author Type: Registered Nurse Type: Patient Education Filed: 06/10/2019 11:19 AM Note Text: PATIENT EDUCATION TOPIC: PROCEDURE / SURGERY: Pre Procedure Teaching: Logistics PATIENT NAME: Orion Dumont PATIENT LOCATION: DICK PAIN POOL/DICK PAIN POOL READINESS TO LEARN COGNITIVE ABILITY: Alert and oriented MOTIVATION TO LEARN: Eager Interested FAMILY SUPPORT: None - Unavailable/disintere sted INSTRUCTION PROVIDED TO: Patient PATIENT LEARNS BEST BY: Individual Instruction Verbal Instruction FACTORS AFFECTING LEARNING: Emotional Factors: Anxious PHYSICAL LIMITATIONS AFFECTING LEARNING: None LEARNING RESPONSE PATIENT/FAMILY RESPONSE: Verbalizes understanding of: PRE-PROCEDURE INSTRUCTIONS-Correct action to take to follow pre-procedure instructions METHOD OF INSTRUCTION: Individual instruction Verbal instruction FOLLOW-UP PLAN: Patient instructed to call with any further issues INSTRUCTIONAL AIDS USED: NA SUPPLEMENTAL MATERIAL PROVIDED TO PATIENT: None REFERRAL (RECOMMENDATION): None Electronically Signed By: Courtney Mcfarlane RN [facility] HOSPon 06-06-2019 HOSP Patient:Mike Dumont MRN: Height:6' 1(1.854 m) Weight:226 lb 4.8 oz (102.649 kg) Outpatient Medications as of 06/10/19: apixaban (ELIQUIS) 5 mg tab(s) diclofenac sodium (VOLTAREN) 1 % topical gel midodrine (PROAMATINE) 10 mg tablet metoprolol succinate ER (TOPROL XL) 25 mg 24 hr tablet alfuzosin SR (UROXATRAL) 10 mg 24 hr tablet albuterol HFA (PROAIR HFA) 90 mcg/actuation inhaler atorvastatin (LIPITOR) 20 mg tablet multivitamin tablet sildenafil (VIAGRA) 50 mg tablet sertraline (ZOLOFT) 100 mg tablet cholecalciferol (VITAMIN D3) 2,000 unit tablet busPIRone (BUSPAR) 15 mg tablet pyridoxine (VITAMIN B-6) 100 mg tablet calcium citrate-vitamin D3 (CITRACAL + D) 315-200 mg-unit tab docusate sodium 100 mg capsule [id number] -Fish Oil [id number] ib-us-eyt-mcg cap buPROPion SR (WELLBUTRIN SR) 150 mg ORAL 12 hr tablet Admission/Clinic Administered Medications as of 06/10/19: Patient has no admission medications. Problem List: Other specified disease of sebaceous glands [L73.8] Corns and callosities [L84] Contusion of foot [S90.30XA] Eating disorder, unspecified [F50.9] Generalized anxiety disorder [F41.1] Major depressive disorder, recurrent episode, moderate (HCC) [F33.1] Dietary surveillance and counseling [Z71.3] DVT (deep venous thrombosis) ([facility]) [I82.409] Pulmonary embolism (HCC) [I26.99] Retinal detachment with retinal defect, unspecified [H33.009] LEXIE (obstructive sleep apnea) [G47.33] Hypomagnesemia [E83.42] Hypokalemia [E87.6] Other and unspecified postsurgical nonabsorption [K91.2] Wound check, abscess [Z51.89] Varicose veins [I83.90] Anticoagulation management encounter [Z51.81, Z79.01] skilled nursing (current) use of anticoagulants [Z79.01] 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] Rhinitis [J31.0] Nephrolithiasis [N20.0] Ulcer of perianal area (HCC) [L98.499] 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] Upper GI bleed [K92.2] MSSA (methicillin susceptible Staphylococcus aureus) infection [A49.01] 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] SUMMARY [V999.95] DVT prophylaxis [Z29.9] Pericarditis [I31.9] History of gastric bypass [Z98.84] Vitamin D deficiency [E55.9] Iron deficiency anemia [D50.9] Orthostatic hypotension [I95.1] Postsurgical dumping syndrome [K91.1] Hip joint replacement by other means [Z96.649] Other symptoms involving nervous and musculoskeletal systems(781.99) [R29.818, R29.898] Torn rotator cuff [M75.100] Atrial fibrillation with RVR (HCC) [I48.91] Ingrown toenail [L60.0] NO SHOW [322106] Retinal detachment [H33.20] Shoulder pain [M25.519] Epiretinal membrane [H35.379] Gall stones, common bile duct [K80.50] Diplopia [H53.2] 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] Muscle weakness (generalized) [M62.81] Disorders of bursae and tendons in shoulder region, unspecified [M71.9, M67.919] 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] Pseudophakia, both eyes [Z96.1] Alternating exotropia with noncommitance other than A OR V pattern [H50.18] 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] Visit for monitoring Tikosyn therapy [Z51.81, Z79.899] emt intermediate current use of anticoagulant [Z79.01] On bridging treatment with lovenox [Z79.01] Pseudophakia of both eyes [Z96.1] Enteric hyperoxaluria [R82.992] 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] Presence of intraocular lens [Z96.1] Bilateral posterior capsular opacification [H26.493] History of detached retina repair [Z98.890, Z86.69] Strabismus [H50.9] BPH with urinary obstruction [N40.1, N13.8] Microhematuria [R31.29] Obesity, Class II, BMI 35-39.9 [E66.9] Chest pain [R07.9] Left lower quadrant pain [R10.32] Left leg swelling [M79.89] Syncope [R55] Allergies: Rivaroxaban Sulfa (Sulfonamide Antibiotics) Adhesive Tape (Rosins) Wool Wool Diclofenac Sodium Date Verified: 06/10/19 Lab Values No results within the last 30 days for the following basenames: K,HCT Progress Notes (BMI [facility] REJ): Veronica Stubbs MD 06/07/2019 5:57 PM Signed Assessment NEW BARIATRIC PATIENT PATIENT NAME: Orion Dumont REASON FOR CONSULT: Morbid Obesity REQUESTING PHYSICIAN: Self DATE of SERVICE: 06/04/2019 TIME of SERVICE: 4:42 PM PCP: Preethi Portillo MD CC: Morbid Obesity HPI: Mr. Dumont is a 68 year old male who is referred for evaluation. Patient has a history of Elizabeth-en-Y gastric [place] [address] Bharat Salguero. He did quite well for the first 4-5 years after surgery and then had some weight regain to very went up to 280 pounds. Over the last 6 months patient has had an unintentional weight loss of around 60 pounds was down to 226 pounds. He does not complain of any change in appetite, nausea, vomiting, abdominal pain or acid reflux. He does not have any other abdominal symptoms. He remains quite concerned about his unintentional weight loss. He has not had any bariatric medicine follow-up ever after surgery. History of abdominal surgeries: Yes PAST MEDICAL HISTORY: PAST MEDICAL HISTORY Diagnosis Date - Adjustment disorder with depressed mood hosp 95' - Atrial fibrillation (HCC) 11/03/2009 s/p ablation, on coumadin, OFF now. - Blood per rectum 06/04/12 broken blood vesel in rectum - BPH (benign prostatic hyperplasia) - Cataract of both eyes trace - DVT (deep venous thrombosis) (HCC) 01/12/2010 S/P IVC filter, occurred post-op, on anticoagulation (for a fib) - Essential hypertension, benign - Fatty liver 11-03-09 by us - GI bleed 06/29/12 - Morbid obesity (HCC) 04-21-09 stated BMI 51.1 Ht: 75 Wt: 410 lbs - Nephrolithiasis 2009 Ca Ox - OA (osteoarthritis) - LEXIE (obstructive sleep apnea) - Other and unspecified hyperlipidemia - Pain in joint, multiple sites neck, shoulders - Retinal detachment OD - Torn rotator cuff - UTI (lower urinary tract infection) PAST SURGICAL HISTORY: PAST SURGICAL HISTORY Procedure Laterality Date - CARDIOVERSION - CYSTO W/RETRO. PYELOG. BILAT. 01/30/2010 CYSTOSCOPY, RETROPYELOGRAM performed by RADHA OLIVAREZ at OR - CYSTO W/URET STENT INSERTION 01/30/2010 CYSTOSCOPY, INSERTION STENT URETERAL J performed by RADHA OLIVAREZ at OR - CYSTO.PANENDO 06/16/2017 Cystoscopy - DISKECTOMY, LUMBAR, SINGLE SP 1981 L4-5 - GASTRIC BYPASS HX - PAST SURGICAL HISTORY OF 1966 left hip pin - PAST SURGICAL HISTORY OF 04/23/12 heart surgery - PAST SURGICAL HISTORY OF 06/04/12 stitches for broken blood vesel in rectum - REDUCE BOWEL OBSTRUCTION 06/24/10 Performed by RAN - REMOVAL GALLBLADDER 11/18/13 - REMOVAL OF KIDNEY STONE 05/02/12 - REPAIR DETACH RETINA,SCLERAL BUCKLE 10/2009 od Scleral Buckle - REPAIR DETACH RETINA,SCLERAL BUCKLE 08/05/2013 SB (Scleral Buckle)/ cyro os - TOTAL HIP REPLACEMENT 1993 left - VITRECTOMY,MECHANICAL 09/03/2013 PPV / EL / gas OS SOCIAL HISTORY: Social History Tobacco Use - Smoking status: Never Smoker - Smokeless tobacco: Never Used Substance Use Topics - Alcohol use: No - Drug use: No ALLERGIES: ALLERGIES Allergen Reactions - Rivaroxaban Rash - Sulfa (Sulfonamide * Intolerance, Hives Pt says that he has had silvadene cream in the past after cardioversions without side effects - Adhesive Tape (Magalie* Rash - Wool Itching - Wool Itching - Diclofenac Sodium Rash Fixed drug eruption FAMILY HISTORY: FAMILY HISTORY Problem Relation Age of Onset - Ischemic Heart Disease Father - Diabetes Mother - other (Other) Mother - Diabetes Sister - Cataract Sister - Detached Retina Sister MEDICATIONS: Prior to Admission Medications: apixaban (ELIQUIS) 5 mg tab(s) Take 1 tablet by mouth twice daily. diclofenac sodium (VOLTAREN) 1 % topical gel Apply to affected area every 4 hours as needed. midodrine (PROAMATINE) 10 mg tablet Take 1 tablet by mouth three times daily. metoprolol succinate ER (TOPROL XL) 25 mg 24 hr tablet Take 1 tablet by mouth once daily. alfuzosin SR (UROXATRAL) 10 mg 24 hr tablet TAKE 1 TABLET ONCE DAILY albuterol HFA (PROAIR HFA) 90 mcg/actuation inhaler 2 Puffs every 4 hours as needed for Wheezing/Shortness of Breath. Take as directed atorvastatin (LIPITOR) 20 mg tablet Take 20 mg by mouth once daily. multivitamin tablet Take by mouth. sildenafil (VIAGRA) 50 mg tablet Take 50 mg by mouth. sertraline (ZOLOFT) 100 mg tablet Take 1 tablet by mouth once daily. cholecalciferol (VITAMIN D3) 2,000 unit tablet Take 1 tablet by mouth daily with dinner. busPIRone (BUSPAR) 15 mg tablet Take 1 tablet by mouth twice daily. pyridoxine (VITAMIN B-6) 100 mg tablet Take 2 tablets by mouth twice daily. calcium citrate-vitamin D3 (CITRACAL + D) 315-200 mg-unit tab Take 1 tablet by mouth four times daily. With each meal. docusate sodium 100 mg capsule Take 1 capsule by mouth twice daily as needed for Constipation. [id number]-[id number]-E-FA -Fish Oil 200-48-094-800 qh-mf-bga-mcg cap Take 600 mg by mouth twice daily. buPROPion SR (WELLBUTRIN SR) 150 mg ORAL 12 hr tablet Take 1 tablet by mouth twice daily. @IPMED@ FAMILY HISTORY: FAMILY HISTORY Problem Relation Age of Onset - Ischemic Heart Disease Father - Diabetes Mother - other (Other) Mother - Diabetes Sister - Cataract Sister - Detached Retina Sister COMPLETE REVIEW OF SYSTEMS Constitutional--Negat joo for fevers, chills, fatigue. Unintentional weight loss as above Cardiovascular--Negat joo for orthopnea, PND Gastrointestinal--See HPI Pulmonary--Negative for intermittent dyspnea cough or hemoptysis : No history of dysuria, frequency or incontinence A complete review of systems was otherwise negative PHYSICAL EXAMINATION: BP 120/55 Pulse 85 Ht 185.4 cm (6' 1) Wt 102.6 kg (226 lb 4.8 oz) BMI 29.86 kg/m? General appearance: Well appearing, alert, in no acute distress, well-hydrated, well nourished. Psych: Appropriate affect, alert and oriented to person, place and time Skin: Skin color, texture, turgor normal, no suspicious rashes or lesions Head: Normocephalic, no masses, lesions, tenderness or abnormalities Eyes: Anicteric sclera. Pupils are equally round. Extraocular movements are intact. Oropharynx: Lips, mucosa, and tongue normal, teeth and gums normal, oropharynx normal Neck: Supple, no adenopathy; thyroid symmetric, normal size Abdomen: Abdomen soft, non-tender. No masses, organomegaly Extremities: No deformities, edema, skin discoloration. Good capillary refill. Musculoskeletal: Muscular strength intact, No joint swelling, deformity, or tenderness Peripheral pulses: Normal radial pulse Neuro: Gait normal. Sensation grossly intact. IMPRESSION Morbid Obesity PLAN: Patient is a very pleasant 68 year old with morbid obesity, patient of Preethi Portillo MD with a Body mass index is 29.86 kg/m?.. Patient has a history of Elizabeth-en-Y gastric bypass [place] [address] Bharat Salguero. He did quite well for the first 4-5 years after surgery and then had some weight regain to very went up to 280 pounds. Over the last 6 months patient has had an unintentional weight loss of around 60 pounds was down to 226 pounds. He does not complain of any change in appetite, nausea, vomiting, abdominal pain or acid reflux. He does not have any other abdominal symptoms. He remains quite concerned about his unintentional weight loss. He has not had any bariatric medicine follow-up ever after surgery. His physical examination is unremarkable. He is previously had a colonoscopy about 3 years ago which was unremarkable. His never had an EGD. He has not had a CT for evaluation of weight loss. Patient needs to get established with bariatric medicine for nutritional workup. He additionally needs workup for weight loss. ? Referral to bariatric medicine ? Referral to nutrition ? CT chest abdomen pelvis Veronica Stubbs MD Previous Version Destinee Damon RN 06/07/2019 2:30 PM Signed Stop at Check Out to schedule below consult: 1- Consult to Nutrition for post op bariatric surgery ([address]) 2- Consult to Medical Bariatrician for post op bariatric surgery (Katy French MD) Progress Notes (NEUS FRVW ): CHINMAY Johns- 06/04/2019 2:03 PM Signed SPINE SURGERY NEW PATIENT PCP: Preethi Portillo MD SUBJECTIVE HISTORY OF PRESENT ILLNESS: Orion Dumont is a 68 year old male presenting alone. CHIEF COMPLAINT: Lower back/RLE pain PRECIPITATING EVENT: None DURATION OF SYMPTOMS: 6 months Mr Dumont is a pleasant 68 year old male who complains of lower back and right leg pain for the past 6 months. He states his lower back pain extends into the right buttock and hip. His pain is severe and greatly affects his activity. He denies numbness and tingling in the extremities or left leg symptoms PAIN EVALUATION 06/04/2019 1251 Pain Level: 10 Pain Location: Buttocks-Right Description: Aching;Radiating;Albert p;Shooting Duration Amount of Time: 7 Duration Units: Months Frequency: Continuous Intervention: Medication cortisone injection Pain Radiation: down the right thigh Aggravating Factors: Walking Alleviating Factors: Sitting Pain Ratio: Pain in the leg(s) is greater than in the back AMBULATORY STATUS: Impaired Community Distances PREVIOUS CONSERVATIVE TREATMENTS: Tylenol PT Right greater troch injection - did give mild pain relief for 2 weeks PREVIOUS SPINAL SURGERY: 1981 - L4-5 lami ACTIVE PROBLEM LIST Other Specified Disease of Sebaceous Glands Corns and Callosities Contusion of Foot Eating Disorder, Unspecified Generalized Anxiety Disorder Major Depressive Disorder, Recurrent Episode, Moderate (Hcc) Dietary Surveillance and Counseling Dvt (Deep Venous Thrombosis) (Hcc) Pulmonary Embolism (Hcc) Retinal Detachment With Retinal Defect, Unspecified Lexie (Obstructive Sleep Apnea) Hypomagnesemia Hypokalemia Other and Unspecified Postsurgical Nonabsorption Wound Check, Abscess Varicose Veins Anticoagulation Management Encounter Care Home (Current) Use of Anticoagulants Lattice Degeneration of Peripheral Retina Rhinitis Nephrolithiasis Ulcer of Perianal Area (Hcc) Dieulafoy Lesion (Hemorrhagic) of Intestine Upper GI Bleed Mssa (Methicillin Susceptible Staphylococcus Aureus) Infection Guillaume Syndrome (Hcc) Summary Dvt Prophylaxis Pericarditis History of Gastric Bypass Vitamin D Deficiency Iron Deficiency Anemia Orthostatic Hypotension Postsurgical Dumping Syndrome Hip Joint Replacement By Other Means Other Symptoms Involving Nervous and Musculoskeletal Systems(781.99) Torn Rotator Cuff Atrial Fibrillation With Rvr (Hcc) Ingrown Toenail No Show Retinal Detachment Shoulder Pain Epiretinal Membrane Gall Stones, Common Bile Duct Diplopia Monocular Exotropia Muscle Weakness (Generalized) Disorders of Bursae and Tendons in Shoulder Region, Unspecified Adhesive Capsulitis of Shoulder Pseudophakia, Both Eyes Alternating Exotropia With Noncommitance Other Than A Or V Pattern Hypertropia of Right Eye Visit for Monitoring 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 - Blood per rectum 06/04/12 broken blood vesel in rectum - BPH (benign prostatic hyperplasia) - Cataract of both eyes trace - DVT (deep venous thrombosis) (HCC) 01/12/2010 S/P IVC filter, occurred post-op, on anticoagulation (for a fib) - Essential hypertension, benign - Fatty liver 11-03-09 by us - GI bleed 06/29/12 - Morbid obesity (HCC) 04-21-09 stated BMI 51.1 Ht: 75 Wt: 410 lbs - Nephrolithiasis 2009 Ca Ox - OA (osteoarthritis) - LEXIE (obstructive sleep apnea) - Other and unspecified hyperlipidemia - Pain in joint, multiple sites neck, shoulders - Retinal detachment OD - Torn rotator cuff - UTI (lower urinary tract infection) PAST SURGICAL HISTORY Procedure Laterality Date - CARDIOVERSION - CYSTO W/RETRO. PYELOG. BILAT. 01/30/2010 CYSTOSCOPY, RETROPYELOGRAM performed by RADHA OLIVAREZ at OR - CYSTO W/URET STENT INSERTION 01/30/2010 CYSTOSCOPY, INSERTION STENT URETERAL J performed by RADHA OLIVAREZ at OR - CYSTO.PANENDO 06/16/2017 Cystoscopy - DISKECTOMY, LUMBAR, SINGLE SP 1981 L4-5 - GASTRIC BYPASS HX - PAST SURGICAL HISTORY OF 1967 left hip pin - PAST SURGICAL HISTORY OF 04/23/12 heart surgery - PAST SURGICAL HISTORY OF 06/04/12 stitches for broken blood vesel in rectum - REDUCE BOWEL OBSTRUCTION 06/24/10 Performed by RAN - REMOVAL GALLBLADDER 11/18/13 - REMOVAL OF KIDNEY STONE 05/02/12 - REPAIR DETACH RETINA,SCLERAL BUCKLE 10/2009 od Scleral Buckle - REPAIR DETACH RETINA,SCLERAL BUCKLE 08/05/2013 SB (Scleral Buckle)/ cyro os - TOTAL HIP REPLACEMENT 1993 left - VITRECTOMY,MECHANICAL 09/03/2013 PPV / EL / gas OS FAMILY HISTORY Problem Relation Age of Onset - Ischemic Heart Disease Father - Diabetes Mother - other (Other) Mother - Diabetes Sister - Cataract Sister - Detached Retina Sister Social History Tobacco Use - Smoking status: Never Smoker - Smokeless tobacco: Never Used Substance Use Topics - Alcohol use: No - Drug use: No ALLERGIES Allergen Reactions - Rivaroxaban Rash - Sulfa (Sulfonamide * Intolerance, Hives Pt says that he has had silvadene cream in the past after cardioversions without side effects - Adhesive Tape (Magalie* Rash - Wool Itching - Wool Itching - Diclofenac Sodium Rash Fixed drug eruption MEDICATIONS: apixaban (ELIQUIS) 5 mg tab(s) Take 1 tablet by mouth twice daily. midodrine (PROAMATINE) 10 mg tablet Take 1 tablet by mouth three times daily. metoprolol succinate ER (TOPROL XL) 25 mg 24 hr tablet Take 1 tablet by mouth once daily. alfuzosin SR (UROXATRAL) 10 mg 24 hr tablet TAKE 1 TABLET ONCE DAILY albuterol HFA (PROAIR HFA) 90 mcg/actuation inhaler 2 Puffs every 4 hours as needed for Wheezing/Shortness of Breath. Take as directed atorvastatin (LIPITOR) 20 mg tablet Take 20 mg by mouth once daily. multivitamin tablet Take by mouth. sildenafil (VIAGRA) 50 mg tablet Take 50 mg by mouth. sertraline (ZOLOFT) 100 mg tablet Take 1 tablet by mouth once daily. cholecalciferol (VITAMIN D3) 2,000 unit tablet Take 1 tablet by mouth daily with dinner. busPIRone (BUSPAR) 15 mg tablet Take 1 tablet by mouth twice daily. pyridoxine (VITAMIN B-6) 100 mg tablet Take 2 tablets by mouth twice daily. calcium citrate-vitamin D3 (CITRACAL + D) 315-200 mg-unit tab Take 1 tablet by mouth four times daily. With each meal. docusate sodium 100 mg capsule Take 1 capsule by mouth twice daily as needed for Constipation. [id number] -Fish Oil [id number] fv-[id number]-mcg cap Take 600 mg by mouth twice daily. buPROPion SR (WELLBUTRIN SR) 150 mg ORAL 12 hr tablet Take 1 tablet by mouth twice daily. diclofenac sodium (VOLTAREN) 1 % topical gel Apply to affected area every 4 hours as needed. REVIEW OF SYSTEMS: GENERAL: No weight loss or malaise MUSCULOSKELETAL: Negative for joint pain, swelling or muscle pain NEURO: No history of headaches, syncope, paralysis, seizures or tremors Patient Entered Questionnaires Spine Questions 06/04/2019 Pain Location: Lower back Pain Duration: 3-6 months Symptoms from neck/cervical spine: Yes Employment Status: Working now Involved in law suit/legal claim: No Neck Questionnaires 06/04/2019 Benzel Modified DAPHNE Score 13 (A lower score indicates increased pain and issues.) Low Back Pain Questionnaires 06/04/2019 STarT Risk Score 5 (High risk for prolonged disability) STarT Distress Score 5 STarT Total Score 9 SHASHANK Score 68.88 (Crippled) PROMIS Score Percentiles Physical Health 06/04/2019 Physical Function Percentile 1 % Sleep Percentile 7 % Fatigue Percentile 3 % Pain Interference Percentile 0 % Social Health 06/04/2019 Social Role Satisfaction Percentile 2 % PROMIS Global Health Scale 06/04/2019 Physical Health Percentile 0 % Mental Health Percentile 2 % Percentiles provide an indication of how the patient's score ranks in relation to the general population. Higher percentile rankings indicate better function/quality of life. 50th percentile is the average of the general population and indicates half of respondents had a worse score. Depression Screening: PHQ-9 06/12/2013 12/13/2013 06/04/2019 Score 10 18 20 PHQ-9 Self Harm 06/12/2013 12/13/2013 06/04/2019 Thoughts that you would be better off , or of hurting yourself in some way 0 0 0 PHQ-9 Self-Harm (Item 9) response options: 0 Not at all 1 Several days 2 More than half the days 3 Nearly every day PHQ-9 Levels: 0-4 No to mild depression 5-9 Mild depression 10-14 Moderate depression 15-19 Moderately severe depression 20-27 Severe depression OBJECTIVE: PHYSICAL EXAM BP 114/70 (BP Site: Left Arm, BP Position: Sitting, BP Cuff Size: Regular Adult) Pulse 86 Temp 36.8 ?C (98.3 ?F) Ht 185.4 cm (6' 1) Wt 102.5 kg (226 lb) SpO2 98% BMI 29.82 kg/m? GENERAL APPEARANCE: Well nourished, well developed, and no apparent distress. NEURO PSYCH: Patient oriented to person, place, and time. Mood pleasant. Benign affect. CARDIOVASCULAR: Palpable pulses. No edema noted. No varicosities. SKIN: Head, neck, trunk, and extremities dry, intact and without lesions. LYMPHATICS: No palpable nodes in cervical or axillae areas. Groin exam deferred. MUSCULOSKELETAL VISUAL INSPECTION CERVICAL: WNL THORACIC: WNL LUMBAR: WNL PALPATION: SPINOUS PROCESS: No pain. PARASPINALS: No pain. MUSCLE BULK: Normal and symmetrical in the upper AND lower extremities. MUSCLE TONE: Normal. MOTOR: 5/5 in all muscle groups. SENSORY: Normal sensory exam GAIT: Antalgic. REFLEXES: +2 to bilateral U/L extremities. PROPRIOCEPTION: Normal. LONG TRACT SIGNS: No clonus. No Hoffmans. STRAIGHT LEG TEST: positive on the right DATA REVIEW [facility] records reviewed Imaging and outside records reviewed Images reviewed with the patient ASSESSMENT/PLAN Mr Dumont is a pleasant 68 year old male is in spine surgery clinic with history of lower back and right leg pain for the past 6 months. Lower back pain radiates to right buttock and hip. His pain is severe and greatly affects his activity. He denies numbness and tingling in the extremities or left leg symptoms ? Tried physical therapy without much help. Evaluated by orthopedic surgeon for hip pathology. Received right hip trochanteric bursa injection with a 20% pain relief. No previous spine surgery. Known lumbar epidural injections. Has IVC filter which is not MRI compatible. Neurological examination showed no motor or sensory deficit. Mild left trochanteric bursa tenderness. No trochanteric bursa tenderness over right side. CT lumbar spine done in 2019 showed moderate to severe lumbar canal stenosis at L3 4, L4 5 level. Mild degenerative scoliosis. Discussed clinical, imaging finding. Showed his images and explained in detail. Considering nonimprovement of lower back and leg pain for few months and CT shows severe canal stenosis at L3 to 5 level, I ordered CT myelogram for further evaluation. Consult placed with pain management for right L3 4, L4 5 transforaminal epidural injection. Follow up in spine surgery clinic after completion of injection and imaging The majority of the visit was spent counseling and/or coordinating care for the patient. The patient was counseled regarding lower back pain, leg pain, lumbar spinal stenosis. Total face to face time was 45 minutes. SIGNATURE: Cruzito Silva MD PATIENT NAME: Orion Dumont DATE: June 04, 2019 TIME: 12:59 PM PAGER: Previous Version [facility] CT HIP WO IVCON LTon 019 CT HIP WO IVCON LT * * *Final Report* * * DATE OF EXAM: Mar 01 2019 5:02PM [facility] 0079 - CT HIP WO IVCON LT / PROCEDURE REASON: Closed fracture of left hip, initial encounter ([facility]) * * * * Physician Interpretation * * * * EXAMINATION: CT HIP WO IVCON RT, CT HIP WO IVCON LT CLINICAL HISTORY: Left hip prosthesis. Right hip pain. Question of stress fracture. Technique: -- Bilateral CT head without intravenous contrast Exam Date: 03/01/2019 5:02 PM Comparison: 11/02/2018, 05/02/2018 and 08/31/2014 Contrast: None. CT Radiation dose: Integrated Dose-length product (DLP) for this visit = 876 mGy*cm CT Dose Reduction Employed: Automated exposure control (AEC) RESULT: RIGHT HIP: Mild osteoarthritis. Anterior superior joint space narrowing, subchondral sclerosis and cystic change as well as small acetabular osteophytes. No joint effusion. Greater tuberosity enthesophytes. Moderate gluteal minimus atrophy. Slightly heterogeneous attenuation of the right iliopsoas bursa/musculature at the level of the hip joint may represent edema versus artifact. (Axial images 45-103 of series 3). LEFT HIP: Status post total left hip arthroplasty with longstem femoral component and intertrochanteric cerclage wires. Intact hardware without periprosthetic fracture or malalignment. Lobulated lucent appearing area of cortical loss in the medial and superior acetabulum around the prosthesis is not significantly changed since the prior CT in 2014 and likely represents particle disease versus postoperative change. Similar smaller area in the femoral greater trochanter also unchanged. Expected postoperative obturator internus and gluteal muscle atrophy. OTHER FINDINGS: Bone islands in the left sacral ala and right superior pubic ramus unchanged since 2015. Mild degenerative change of both sacroiliac joints with vacuum disc phenomenon. Pubic symphysis is unremarkable. Punctate calcifications in the prostate. IMPRESSION: MILD RIGHT HIP OSTEOARTHRITIS. DISTENDED RIGHT ILIOPSOAS BURSA. UNCHANGED POSTOPERATIVE APPEARANCE OF THE LEFT HIP STATUS POST TOTAL HIP ARTHROPLASTY, WITH UNCHANGED PERIPROSTHETIC LUCENCIES. Pathology Laboratory Aide: EVELYNE Transcribe Date/Time: Mar 01 2019 5:55P Dictated by : FELIPA RUBALCAVA MD This examination was interpreted and the report reviewed and electronically signed by: TAJ TINAJERO MD on Mar 02 2019 9:12PM EST [id number] N [facility] CT HIP WO IVCON RTon 019 CT HIP WO IVCON RT * * *Final Report* * * DATE OF EXAM: Mar 01 2019 5:02PM [facility] 0080 - CT HIP WO IVCON RT / PROCEDURE REASON: Closed fracture of right hip, initial encounter ([facility]) * * * * Physician Interpretation * * * * EXAMINATION: CT HIP WO IVCON RT, CT HIP WO IVCON LT CLINICAL HISTORY: Left hip prosthesis. Right hip pain. Question of stress fracture. Technique: -- Bilateral CT head without intravenous contrast Exam Date: 03/01/2019 5:02 PM Comparison: 11/02/2018, 05/02/2018 and 08/31/2014 Contrast: None. CT Radiation dose: Integrated Dose-length product (DLP) for this visit = 876 mGy*cm CT Dose Reduction Employed: Automated exposure control (AEC) RESULT: RIGHT HIP: Mild osteoarthritis. Anterior superior joint space narrowing, subchondral sclerosis and cystic change as well as small acetabular osteophytes. No joint effusion. Greater tuberosity enthesophytes. Moderate gluteal minimus atrophy. Slightly heterogeneous attenuation of the right iliopsoas bursa/musculature at the level of the hip joint may represent edema versus artifact. (Axial images 45-103 of series 3). LEFT HIP: Status post total left hip arthroplasty with longstem femoral component and intertrochanteric cerclage wires. Intact hardware without periprosthetic fracture or malalignment. Lobulated lucent appearing area of cortical loss in the medial and superior acetabulum around the prosthesis is not significantly changed since the prior CT in 2014 and likely represents particle disease versus postoperative change. Similar smaller area in the femoral greater trochanter also unchanged. Expected postoperative obturator internus and gluteal muscle atrophy. OTHER FINDINGS: Bone islands in the left sacral ala and right superior pubic ramus unchanged since 2014. Mild degenerative change of both sacroiliac joints with vacuum disc phenomenon. Pubic symphysis is unremarkable. Punctate calcifications in the prostate. IMPRESSION: MILD RIGHT HIP OSTEOARTHRITIS. DISTENDED RIGHT ILIOPSOAS BURSA. UNCHANGED POSTOPERATIVE APPEARANCE OF THE LEFT HIP STATUS POST TOTAL HIP ARTHROPLASTY, WITH UNCHANGED PERIPROSTHETIC LUCENCIES. Pathology Laboratory Aide: EVELYNE Transcribe Date/Time: Mar 01 2019 5:55P Dictated by : FELIPA RUBALCAVA MD This examination was interpreted and the report reviewed and electronically signed by: TAJ TINAJERO MD on Mar 02 2019 9:12PM EST [id number] N [facility] PROGRESSon 03-01-2019 PROGRESS HNO ID: [id number] Author: Reymundo Mcnair (Tech) Service: Radiology Author Type: Apron Operator Type: Progress Notes Filed: 03/01/2019 4:57 PM Note Text: Radiology Service Progress Note PATIENT NAME: Orion Dumont DATE OF SERVICE: March 01, 2019 TIME: 4:56 PM PATIENT IDENTITY VERIFICATION COMPLETED USING TWO (2) IDENTIFIERS: Name and Date of confirmed by patient verbally and Name and Date of confirmed by identification band. PATIENT GENDER DATA: Male PATIENT RELEVANT IMPLANT DATA REVIEWED: Not Applicable RADIOLOGY DEPARTMENT: CT; Exam(s) Completed: Lower extremity PERIPHERAL IV DATA: Not applicable SIGNED BY: REYMUNDO Mcnair March 01, 2019 4:56 PM [facility] ALLIED HEALTH 02-27-2019 ALLIED HEALTH HNO ID: [id number] Author: Reymundo Bower (Tech) Service: Radiology Author Type: Apron Operator Type: Allied Health Filed: 02/27/2019 9:22 PM Note Text: RADIOLOGY SERVICE PROGRESS NOTE DATE OF SERVICE: February 27, 2019 TIME OF SERVICE: 2129 EVENT: EXAM/PROCEDURE NOT COMPLETED - Patient has contraindication: Implant IVC FILTER PLACED 01/2010 [facility] NO -OPERATIVE NOTES. NEED INFORMATION ON TYPE OF FILTER. ADDITIONAL DATA: N/A SIGNATURE: Reymundo Bower PATIENT NAME: Orion Dumont DATE: February 27, 2019 TIME: 9:21 PM PAGER/CONTACT #: [facility] Vital Signs Date Time Vital Sign Value Performing Clinician Fidel desir 11-19-2024 08:49-0400 Body mass index (BMI) [Ratio] 30.85 kg/m2 Quincy Alonzo APRN.CNP Work Phone: [facility] 11-19-2024 08:49-0400 Body weight 106.05 kg Quincy Alonzo APRN.CNP Work Phone: [facility] 11-19-2024 08:49-0400 Diastolic blood pressure 86 mm[Hg] Quincy Alonzo TEXTILE BROKER.FACING GRINDER Work Phone: [facility] 11-19-2024 08:49-0400 Heart rate 80 /min Quincy Alonzo TEXTILE BROKER.FACING GRINDER Work Phone: [facility] 11-19-2024 08:49-0400 Respiratory rate 16 /min Quincy Alonzo TEXTILE BROKER.FACING GRINDER Work Phone: [facility] 11-19-2024 08:49-0400 SaO2% (BldA) [Mass fraction] 97 % Quincy Alonzo TEXTILE BROKER.FACING GRINDER Work Phone: [facility] 11-19-2024 08:49-0400 Systolic blood pressure 132 mm[Hg] Quincy Alonzo TEXTILE BROKER.FACING GRINDER Work Phone: [facility] 11-11-2024 07:58-0400 Body mass index (BMI) [Ratio] 30.34 kg/m2 Shea Etienne TEXTILE BROKER.FACING GRINDER Work Phone: [facility] 11-11-2024 07:58-0400 Body weight 104.3 kg Shea Etienne TEXTILE BROKER.FACING GRINDER Work Phone: [facility] 11-11-2024 07:58-0400 Diastolic blood pressure 68 mm[Hg] Shea Etienne TEXTILE BROKER.FACING GRINDER Work Phone: [facility] 11-11-2024 07:58-0400 Heart rate 74 /min Shea Etienne TEXTILE BROKER.FACING GRINDER Work Phone: [facility] 11-11-2024 07:58-0400 Respiratory rate 14 /min Shea Etienne TEXTILE BROKER.FACING GRINDER Work Phone: [facility] 11-11-2024 07:58-0400 SaO2% (BldA) [Mass fraction] 96 % Shea Etienne TEXTILE BROKER.FACING GRINDER Work Phone: [facility] 11-11-2024 07:58-0400 Systolic blood pressure 102 mm[Hg] Shea Daria TEXTILE BROKER.FACING GRINDER Work Phone: [facility] 10-22-2024 14:17-0400 Body height 185.4 cm Antonio Stahl PA-C Work Phone: [facility] 10-22-2024 14:17-0400 Body mass index (BMI) [Ratio] 30.48 kg/m2 Antonio Stahl PA-C Work Phone: [facility] 10-22-2024 14:17-0400 Body temperature 97.7 [degF] Antonio Stahl PA-C Work Phone: [facility] 10-22-2024 14:17-0400 Body weight 104.78 kg Antonio Stahl PA-C Work Phone: [facility] 10-22-2024 14:17-0400 Diastolic blood pressure 62 mm[Hg] Antonio Stahl PA-C Work Phone: [facility] 10-22-2024 14:17-0400 Heart rate 100 /min Antonio Stahl PA-C Work Phone: [facility] 10-22-2024 14:17-0400 Respiratory rate 12 /min Antonio Stahl PA-C Work Phone: [facility] 10-22-2024 14:17-0400 SaO2% (BldA) [Mass fraction] 97 % Antonio Stahl PA-C Work Phone: [facility] 10-22-2024 14:17-0400 Systolic blood pressure 96 mm[Hg] Antonio Stalh PA-C Work Phone: [facility] 10-09-2024 17:47-0400 Body mass index (BMI) [Ratio] 29.86 kg/m2 Shea Daria TEXTILE BROKER.FACING GRINDER Work Phone: [facility] 10-09-2024 17:47-0400 Body weight 103.87 kg Shea Daria TEXTILE BROKER.FACING GRINDER Work Phone: [facility] 10-09-2024 17:47-0400 Diastolic blood pressure 62 mm[Hg] Shea Daria TEXTILE BROKER.FACING GRINDER Work Phone: [facility] 10-09-2024 17:47-0400 Heart rate 78 /min Shea Daria TEXTILE BROKER.FACING GRINDER Work Phone: [facility] 10-09-2024 17:47-0400 Respiratory rate 12 /min Shea Daria TEXTILE BROKER.FACING GRINDER Work Phone: [facility] 10-09-2024 17:47-0400 SaO2% (BldA) [Mass fraction] 98 % Shea Daria TEXTILE BROKER.FACING GRINDER Work Phone: [facility] 10-09-2024 17:47-0400 Systolic blood pressure 110 mm[Hg] Shea Daria TEXTILE BROKER.FACING GRINDER Work Phone: [facility] 10-08-2024 10:45-0400 Body mass index (BMI) [Ratio] 29.99 kg/m2 Quincy Alonzo TEXTILE BROKER.FACING GRINDER Work Phone: [facility] 10-08-2024 10:45-0400 Body weight 104.33 kg Quincy Alonzo TEXTILE BROKER.FACING GRINDER Work Phone: [facility] 10-08-2024 10:45-0400 Diastolic blood pressure 75 mm[Hg] Quincy Riggsru TEXTILE BROKER.FACING GRINDER Work Phone: [facility] 10-08-2024 10:45-0400 Heart rate 89 /min Quincy Alonzo TEXTILE BROKER.FACING GRINDER Work Phone: [facility] 10-08-2024 10:45-0400 SaO2% (BldA) [Mass fraction] 97 % Quincy Alonzo TEXTILE BROKER.FACING GRINDER Work Phone: [facility] 10-08-2024 10:45-0400 Systolic blood pressure 118 mm[Hg] Quincy Riggsru TEXTILE BROKER.FACING GRINDER Work Phone: [facility] 09-18-2024 11:00-0400 Body height 185.[address] Florian Gonzalez MD Work Phone: 7(854)[phone] [place] [address] 09-18-2024 11:00-0400 Body mass index (BMI) [Ratio] 30.4 kg/m2 Dr. Florian Gonzalez MD Work Phone: 8(196)219-634122 [place] [address] 09-18-2024 11:00-0400 Body weight 104.[address] Florian Gonzalez MD Work Phone: 9(126)332-824422 [place] [address] 09-18-2024 11:00-0400 Diastolic blood pressure 71 mm[Hg] Dr. Florian Gonzalez MD Work Phone: 8(116)809-290622 [place] [address] 09-18-2024 11:00-0400 Heart rate 68 /min Dr. Florian Gonzalez MD Work Phone: 0(285)139-506822 [place] [address] 09-18-2024 11:00-0400 Respiratory rate 18 /min Dr. Florian Gonzalez MD Work Phone: 3(382)[phone] [place] [address] 09-18-2024 11:00-0400 SaO2% (BldA) [Mass fraction] 95 % Dr. Florian Gonzalez MD Work Phone: 8(290)976-954522 [place] [address] 09-18-2024 11:00-0400 Systolic blood pressure 96 mm[Hg] Dr. Florian Gonzalez MD Work Phone: 9(379)[phone] [place] [address] 09-17-2024 12:41-0400 Body height 186.5 cm Josselin Maldonado MD Work Phone: [facility] 09-17-2024 12:41-0400 Body mass index (BMI) [Ratio] 30.39 kg/m2 Josselin Maldonado MD Work Phone: 9(560)997-628931 [place] [address] 09-17-2024 12:41-0400 Body weight 105.69 kg Josselin Maldonado MD Work Phone: [facility] 09-17-2024 12:41-0400 Diastolic blood pressure 68 mm[Hg] Josseiln Mladonado MD Work Phone: 4(013)[phone] [place] [address] 09-17-2024 12:41-0400 Heart rate 76 /min Josselin Maldonado MD Work Phone: [facility] 09-17-2024 12:41-0400 Respiratory rate 16 /min Josselin Maldonado MD Work Phone: [facility] 09-17-2024 12:41-0400 SaO2% (BldA) [Mass fraction] 98 % Josselin Maldonado MD Work Phone: [facility] 09-17-2024 12:41-0400 Systolic blood pressure 132 mm[Hg] Josselin Maldonado MD Work Phone: [facility] 09-17-2024 11:37-0400 Body height 186.5 cm Pulm Wstr Work Phone: [facility] 09-17-2024 11:37-0400 Body mass index (BMI) [Ratio] 30.39 kg/m2 Pulm Wstr Work Phone: [facility] 09-17-2024 11:37-0400 Body weight 105.69 kg Pulm Wstr Work Phone: [facility] 09-17-2024 11:37-0400 Heart rate 70 /min Pulm Wstr Work Phone: [facility] 09-17-2024 11:37-0400 Respiratory rate 16 /min Pulm Wstr Work Phone: [facility] 09-17-2024 11:37-0400 SaO2% (BldA) [Mass fraction] 98 % Pulm Wstr Work Phone: [facility] 08-06-2024 10:31-0400 Body mass index (BMI) [Ratio] 32.55 kg/m2 Quincy Alonzo APRN.FACING GRINDER Work Phone: [facility] 08-06-2024 10:31-0400 Body weight 111.4 kg Quincy Alonzo APRN.FACING GRINDER Work Phone: [facility] 08-06-2024 10:31-0400 Diastolic blood pressure 86 mm[Hg] Quincy Rajguru TEXTILE BROKER.FACING GRINDER Work Phone: [facility] 08-06-2024 10:31-0400 Heart rate 85 /min Quincy Juniorguru TEXTILE BROKER.FACING GRINDER Work Phone: [facility] 08-06-2024 10:31-0400 Respiratory rate 18 /min Quincy Juniorsabrinaru TEXTILE BROKER.FACING GRINDER Work Phone: [facility] 08-06-2024 10:31-0400 SaO2% (BldA) [Mass fraction] 95 % Quincy Juniorsabrinaru TEXTILE BROKER.FACING GRINDER Work Phone: [facility] 08-06-2024 10:31-0400 Systolic blood pressure 134 mm[Hg] Quincy Juniorsabrinaru TEXTILE BROKER.FACING GRINDER Work Phone: [facility] 07-22-2024 21:10-0400 Diastolic blood pressure 96 mm[Hg] Dr. Florian Gonzalez MD Work Phone: [facility] 07-22-2024 21:10-0400 Systolic blood pressure 139 mm[Hg] Dr. Florian Gonzalez MD Work Phone: [facility] 07-22-2024 16:07-0400 Body height 184.[address] Florian Gonzalez MD Work Phone: [facility] 07-22-2024 16:07-0400 Body mass index (BMI) [Ratio] 31.4 kg/m2 Dr. Florian Gonzalez MD Work Phone: [facility] 07-22-2024 16:07-0400 Body temperature 97.6 [degF] Dr. Florian Gonzalez MD Work Phone: [facility] 07-22-2024 16:07-0400 Body weight 107.[address] Florian Gonzalez MD Work Phone: [facility] 07-22-2024 16:07-0400 Heart rate 81 /min Dr. Florian Gonzalez MD Work Phone: [facility] 07-22-2024 16:07-0400 Respiratory rate 16 /min Dr. Florian Gonzalez MD Work Phone: [facility] 07-22-2024 16:07-0400 SaO2% (BldA) [Mass fraction] 98 % Dr. Florian Gonzalez MD Work Phone: [facility] 05-28-2024 15:18-0500 Body mass index (BMI) [Ratio] 31.79 kg/m2 Domo Granda TEXTILE BROKER.DIRECTOR OF TECHNOLOGY Work Phone: [facility] 05-28-2024 15:18-0500 Body temperature 98.91 [degF] Domo Granda TEXTILE BROKER.DIRECTOR OF TECHNOLOGY Work Phone: [facility] 05-28-2024 15:18-0500 Body weight 108.8 kg Domo Granda TEXTILE BROKER.DIRECTOR OF TECHNOLOGY Work Phone: [facility] 05-28-2024 15:18-0500 Diastolic blood pressure 80 mm[Hg] Domo Granda TEXTILE BROKER.DIRECTOR OF TECHNOLOGY Work Phone: [facility] 05-28-2024 15:18-0500 Heart rate 64 /min Domo Granda TEXTILE BROKER.DIRECTOR OF TECHNOLOGY Work Phone: [facility] 05-28-2024 15:18-0500 Respiratory rate 20 /min Domo Granda TEXTILE BROKER.DIRECTOR OF TECHNOLOGY Work Phone: [facility] 05-28-2024 15:18-0500 Systolic blood pressure 155 mm[Hg] Domo Granda TEXTILE BROKER.DIRECTOR OF TECHNOLOGY Work Phone: [facility] 05-28-2024 14:28-0500 Body mass index (BMI) [Ratio] 31.78 kg/m2 Quincy Oneilru TEXTILE BROKER.FACING GRINDER Work Phone: [facility] 05-28-2024 14:28-0500 Body weight 108.77 kg Quincy Alonzo TEXTILE BROKER.FACING GRINDER Work Phone: [facility] 05-28-2024 14:28-0500 Diastolic blood pressure 80 mm[Hg] Quincy Oneilru TEXTILE BROKER.FACING GRINDER Work Phone: [facility] 05-28-2024 14:28-0500 Heart rate 64 /min Quincy Riggsru TEXTILE BROKER.FACING GRINDER Work Phone: [facility] 05-28-2024 14:28-0500 Respiratory rate 20 /min Quincy Riggsru TEXTILE BROKER.FACING GRINDER Work Phone: [facility] 05-28-2024 14:28-0500 Systolic blood pressure 155 mm[Hg] Quincy Riggsru TEXTILE BROKER.FACING GRINDER Work Phone: [facility] 05-27-2024 11:22-0500 Body height 185.4 cm Jerry [employer] DO Work Phone: [facility] 05-27-2024 11:22-0500 Body mass index (BMI) [Ratio] 29.03 kg/m2 Jerry MercadoRed Hot Labs DO Work Phone: [facility] 05-27-2024 11:22-0500 Body weight 99.79 kg Jerry MercadoEnvoyangie DO Work Phone: [facility] 05-13-2024 08:01-0500 Body height 185 cm Shea Etienne TEXTILE BROKER.FACING GRINDER Work Phone: [facility] 05-13-2024 08:01-0500 Body mass index (BMI) [Ratio] 32.4 kg/m2 Shea GraffDaria TEXTILE BROKER.FACING GRINDER Work Phone: [facility] 05-13-2024 08:01-0500 Body weight 110.9 kg Shea GraffDaria TEXTILE BROKER.FACING GRINDER Work Phone: [facility] 05-13-2024 08:01-0500 Diastolic blood pressure 62 mm[Hg] Shea Daria TEXTILE BROKER.FACING GRINDER Work Phone: [facility] 05-13-2024 08:01-0500 Heart rate 94 /min Shea Daria TEXTILE BROKER.FACING GRINDER Work Phone: [facility] 05-13-2024 08:01-0500 Respiratory rate 16 /min Shea Daria TEXTILE BROKER.FACING GRINDER Work Phone: [facility] 05-13-2024 08:01-0500 SaO2% (BldA) [Mass fraction] 97 % Shea Etienne APRN.FACING GRINDER Work Phone: [facility] 05-13-2024 08:01-0500 Systolic blood pressure 110 mm[Hg] Shea Etienne APRN.FACING GRINDER Work Phone: [facility] 11-10-2023 09:03-0400 Body mass index (BMI) [Ratio] 31.03 kg/m2 Florian Gonzalez MD Work Phone: [facility] 11-10-2023 09:03-0400 Body temperature 97.5 [degF] Florian Gonzalez MD Work Phone: [facility] 11-10-2023 09:03-0400 Body weight 106.7 kg Florian Gonzalez MD Work Phone: [facility] 11-10-2023 09:03-0400 Diastolic blood pressure 60 mm[Hg] Florian Gonzalez MD Work Phone: [facility] 11-10-2023 09:03-0400 Heart rate 78 /min Florian Gonzalez MD Work Phone: [facility] 11-10-2023 09:03-0400 Respiratory rate 16 /min Florian Gonzalez MD Work Phone: [facility] 11-10-2023 09:03-0400 SaO2% (BldA) [Mass fraction] 98 % Florian Gonzalez MD Work Phone: [facility] 11-10-2023 09:03-0400 Systolic blood pressure 102 mm[Hg] Florian Gonzalez MD Work Phone: [facility] 10-31-2023 08:38-0400 Body mass index (BMI) [Ratio] 31.66 kg/m2 Quincy Alonzo TEXTILE BROKER.FACING GRINDER Work Phone: [facility] 10-31-2023 08:38-0400 Body weight 108.86 kg Quincy Rajguru TEXTILE BROKER.FACING GRINDER Work Phone: [facility] 10-31-2023 08:38-0400 Diastolic blood pressure 82 mm[Hg] Quincy Rajguru TEXTILE BROKER.FACING GRINDER Work Phone: [facility] 10-31-2023 08:38-0400 Heart rate 78 /min Quincy Rajguru TEXTILE BROKER.FACING GRINDER Work Phone: [facility] 10-31-2023 08:38-0400 Respiratory rate 14 /min Quincy Rajguru TEXTILE BROKER.FACING GRINDER Work Phone: [facility] 10-31-2023 08:38-0400 Systolic blood pressure 124 mm[Hg] Quincy Rajguru TEXTILE BROKER.FACING GRINDER Work Phone: [facility] 09-18-2023 08:57-0400 Body mass index (BMI) [Ratio] 30.08 kg/m2 Leonides Baker MD Work Phone: [facility] 09-18-2023 08:57-0400 Body weight 103.42 kg Leonides Baker MD Work Phone: [facility] 09-18-2023 08:57-0400 Diastolic blood pressure 70 mm[Hg] Leonides Baker MD Work Phone: [facility] 09-18-2023 08:57-0400 Systolic blood pressure 90 mm[Hg] Leonides Baker MD Work Phone: [facility] 08-01-2023 08:37-0400 Body mass index (BMI) [Ratio] 30.19 kg/m2 Quincy Rajguru TEXTILE BROKER.FACING GRINDER Work Phone: [facility] 08-01-2023 08:37-0400 Body weight 103.78 kg Quincy Rajguru TEXTILE BROKER.FACING GRINDER Work Phone: [facility] 08-01-2023 08:37-0400 Diastolic blood pressure 64 mm[Hg] Quincy Rajguru TEXTILE BROKER.FACING GRINDER Work Phone: [facility] 08-01-2023 08:37-0400 Heart rate 80 /min Quincy Rajguru TEXTILE BROKER.FACING GRINDER Work Phone: [facility] 08-01-2023 08:37-0400 Systolic blood pressure 102 mm[Hg] Quincy Rajguru TEXTILE BROKER.FACING GRINDER Work Phone: [facility] 06-06-2023 10:09-0500 Body weight 102.97 kg Leonides Baker MD Work Phone: [facility] 06-06-2023 10:09-0500 Diastolic blood pressure 60 mm[Hg] Leonides Baker MD Work Phone: [facility] 06-06-2023 10:09-0500 Systolic blood pressure 102 mm[Hg] Leonides Baker MD Work Phone: [facility] 05-30-2023 08:28-0500 Body weight 103.15 kg Quincy Rajguru TEXTILE BROKER.FACING GRINDER Work Phone: [facility] 05-30-2023 08:28-0500 Diastolic blood pressure 68 mm[Hg] Quincy Rajguru TEXTILE BROKER.FACING GRINDER Work Phone: [facility] 05-30-2023 08:28-0500 Heart rate 68 /min Quincy Rajguru TEXTILE BROKER.FACING GRINDER Work Phone: [facility] 05-30-2023 08:28-0500 Systolic blood pressure 104 mm[Hg] Quincy Rajguru TEXTILE BROKER.FACING GRINDER Work Phone: [facility] 05-12-2023 09:49-0500 Body height 185.4 cm Florian Gonzalez MD Work Phone: [facility] 05-12-2023 09:49-0500 Body weight 97.52 kg Florian Gonzalez MD Work Phone: [facility] 05-12-2023 09:49-0500 Diastolic blood pressure 74 mm[Hg] Florian Gonzalez MD Work Phone: [facility] 05-12-2023 09:49-0500 Heart rate 72 /min Florian Gonzalez MD Work Phone: [facility] 05-12-2023 09:49-0500 Respiratory rate 16 /min Florian Gonzalez MD Work Phone: [facility] 05-12-2023 09:49-0500 Systolic blood pressure 118 mm[Hg] Florian Gonzalez MD Work Phone: [facility] 02-23-2023 09:22-0500 Body weight 95.25 kg Leonides Baker MD Work Phone: [facility] 02-23-2023 09:22-0500 Diastolic blood pressure 76 mm[Hg] Leonides Baker MD Work Phone: [facility] 02-23-2023 09:22-0500 Systolic blood pressure 112 mm[Hg] Leonides Baker MD Work Phone: [facility] 02-22-2023 10:27-0500 Diastolic blood pressure 73 mm[Hg] Kassie Ruiz MD Work Phone: [facility] 02-22-2023 10:27-0500 Heart rate 81 /min Kassie Ruiz MD Work Phone: [facility] 02-22-2023 10:27-0500 Respiratory rate 16 /min Kassie Ruiz MD Work Phone: [facility] 02-22-2023 10:27-0500 SaO2% (BldA) [Mass fraction] 97 % Kassie Ruiz MD Work Phone: [facility] 02-22-2023 10:27-0500 Systolic blood pressure 133 mm[Hg] Kassie Ruiz MD Work Phone: [facility] 02-22-2023 08:39-0500 Body temperature 96.91 [degF] Kassie Ruiz MD Work Phone: [facility] 02-22-2023 08:39-0500 Body weight 98 kg Kassie Ruiz MD Work Phone: [facility] 02-21-2023 09:09-0500 Body height 185.4 cm Antonio Stahl PA-C Work Phone: [facility] 02-21-2023 09:09-0500 Body temperature 98.4 [degF] Antonio Stahl PA-C Work Phone: [facility] 02-21-2023 09:09-0500 Body weight 96.53 kg Antonio Stahl PA-C Work Phone: [facility] 02-21-2023 09:09-0500 Diastolic blood pressure 70 mm[Hg] Antonio Stahl PA-C Work Phone: [facility] 02-21-2023 09:09-0500 Heart rate 90 /min Antonio Stahl PA-C Work Phone: [facility] 02-21-2023 09:09-0500 SaO2% (BldA) [Mass fraction] 97 % Antonio Stahl PA-C Work Phone: [facility] 02-21-2023 09:09-0500 Systolic blood pressure 112 mm[Hg] Antonio Stahl PA-C Work Phone: [facility] 01-31-2023 08:07-0400 Body weight 97.98 kg Florian Gonzalez MD Work Phone: [facility] 01-31-2023 08:07-0400 Diastolic blood pressure 66 mm[Hg] Florian Gonzalez MD Work Phone: [facility] 01-31-2023 08:07-0400 Heart rate 76 /min Florian Gonzalez MD Work Phone: [facility] 01-31-2023 08:07-0400 Respiratory rate 16 /min Florian Gonzalez MD Work Phone: [facility] 01-31-2023 08:07-0400 Systolic blood pressure 100 mm[Hg] Florian Gonzalez MD Work Phone: [facility] 01-19-2023 09:33-0400 Body height 185.4 cm Toya Smith MD Work Phone: [facility] 01-19-2023 09:33-0400 Body mass index (BMI) [Ratio] 27.71 kg/m2 Toya Smith MD Work Phone: [facility] 01-19-2023 09:33-0400 Body weight 95.25 kg Tyoa Smith MD Work Phone: [facility] 11-18-2022 09:27-0400 Body height 185.4 cm Antonio Stahl PA-C Work Phone: [facility] 11-18-2022 09:27-0400 Body temperature 98.29 [degF] Antonio Stahl PA-C Work Phone: [facility] 11-18-2022 09:27-0400 Body weight 96.8 kg Antonio Stahl PA-C Work Phone: [facility] 11-18-2022 09:27-0400 Diastolic blood pressure 60 mm[Hg] Antonio Stahl PA-C Work Phone: [facility] 11-18-2022 09:27-0400 Heart rate 102 /min Antonio Stahl PA-C Work Phone: [facility] 11-18-2022 09:27-0400 Respiratory rate 14 /min Antonio Stahl PA-C Work Phone: [facility] 11-18-2022 09:27-0400 SaO2% (BldA) [Mass fraction] 99 % Antonio Stahl PA-C Work Phone: [facility] 11-18-2022 09:27-0400 Systolic blood pressure 82 mm[Hg] Antonio Stahl PA-C Work Phone: [facility] 11-08-2022 11:27-0400 Body weight 97.07 kg Florian Gonzalez MD Work Phone: [facility] 11-08-2022 11:27-0400 Diastolic blood pressure 60 mm[Hg] Florian Gonzalez MD Work Phone: [facility] 11-08-2022 11:27-0400 Heart rate 76 /min Florian Gonzalez MD Work Phone: [facility] 11-08-2022 11:27-0400 Respiratory rate 18 /min Florian Gonzalez MD Work Phone: [facility] 11-08-2022 11:27-0400 Systolic blood pressure 92 mm[Hg] Florian Gonzalez MD Work Phone: [facility] 08-15-2022 08:55-0400 Body weight 99.34 kg Leonides Baker MD Work Phone: [facility] 08-15-2022 08:55-0400 Diastolic blood pressure 80 mm[Hg] Leonides Baker MD Work Phone: [facility] 08-15-2022 08:55-0400 Systolic blood pressure 124 mm[Hg] Leonides Baker MD Work Phone: [facility] 07-11-2022 10:03-0400 Body height 185.4 cm Caodaism Backer PA-C Work Phone: [facility] 07-11-2022 10:03-0400 Body mass index (BMI) [Ratio] 29.16 kg/m2 Caodaism Backer PA-C Work Phone: [facility] 07-11-2022 10:03-0400 Body temperature 97.59 [degF] Caodaism Backer PA-C Work Phone: [facility] 07-11-2022 10:03-0400 Body weight 100.25 kg Caodaism Backer PA-C Work Phone: [facility] 07-11-2022 10:03-0400 Diastolic blood pressure 84 mm[Hg] Caodaism Backer PA-C Work Phone: [facility] 07-11-2022 10:03-0400 Systolic blood pressure 128 mm[Hg] Caodaism Backer PA-C Work Phone: [facility] 07-01-2022 14:00-0400 Diastolic blood pressure 87 mm[Hg] Toya Smith MD Work Phone: [facility] 07-01-2022 14:00-0400 Heart rate 85 /min Toya Smith MD Work Phone: [facility] 07-01-2022 14:00-0400 Respiratory rate 16 /min Toya Smith MD Work Phone: [facility] 07-01-2022 14:00-0400 SaO2% (BldA) [Mass fraction] 96 % Toya Smith MD Work Phone: [facility] 07-01-2022 14:00-0400 Systolic blood pressure 121 mm[Hg] Toya Smith MD Work Phone: [facility] 07-01-2022 13:12-0400 Body temperature 97.9 [degF] Toya Smith MD Work Phone: [facility] 07-01-2022 10:44-0400 Body mass index (BMI) [Ratio] 29.16 kg/m2 Toya Smith MD Work Phone: [facility] 07-01-2022 10:44-0400 Body weight 100.25 kg Toya Smith MD Work Phone: [facility] 06-13-2022 12:36-0500 Body weight 99.34 kg Florian Gonzalez MD Work Phone: [facility] 06-13-2022 12:36-0500 Diastolic blood pressure 64 mm[Hg] Florian Gonzalez MD Work Phone: [facility] 06-13-2022 12:36-0500 Heart rate 72 /min Florian Gonzalez MD Work Phone: [facility] 06-13-2022 12:36-0500 Respiratory rate 20 /min Florian Gonzalez MD Work Phone: [facility] 06-13-2022 12:36-0500 Systolic blood pressure 96 mm[Hg] Florian Gonzalez MD Work Phone: [facility] 02-16-2023 08:41-0500 Body height 185.4 cm Toya Smith MD Work Phone: [facility] 05-26-2022 08:41-0500 Body mass index (BMI) [Ratio] 29.69 kg/m2 Toya Smith MD Work Phone: [facility] 05-26-2022 08:41-0500 Body weight 102.06 kg Toya Smith MD Work Phone: [facility] 05-26-2022 08:41-0500 Diastolic blood pressure 70 mm[Hg] Toya Smith MD Work Phone: [facility] 05-26-2022 08:41-0500 Systolic blood pressure 110 mm[Hg] Toya Smith MD Work Phone: [facility] 05-18-2022 10:54-0500 Body weight 101.61 kg Quincy Rajguru TEXTILE BROKER.FACING GRINDER Work Phone: [facility] 05-18-2022 10:54-0500 Diastolic blood pressure 68 mm[Hg] Quincy Rajguru TEXTILE BROKER.FACING GRINDER Work Phone: [facility] 05-18-2022 10:54-0500 Heart rate 80 /min Quincy Rajguru TEXTILE BROKER.FACING GRINDER Work Phone: [facility] 05-18-2022 10:54-0500 Systolic blood pressure 116 mm[Hg] Quincy Rajguru TEXTILE BROKER.FACING GRINDER Work Phone: [facility] 05-09-2022 12:13-0500 Body height 184.8 cm Florian Gonzalez MD Work Phone: [facility] 05-09-2022 12:13-0500 Body temperature 96.91 [degF] Florian Gonzalez MD Work Phone: [facility] 05-09-2022 12:13-0500 Body weight 98.34 kg Florian Gonzalez MD Work Phone: [facility] 05-09-2022 12:13-0500 Diastolic blood pressure 64 mm[Hg] Florian Gonzalez MD Work Phone: [facility] 05-09-2022 12:13-0500 Heart rate 60 /min Florian Gonzalez MD Work Phone: [facility] 05-09-2022 12:13-0500 Respiratory rate 12 /min Florian Gonzalez MD Work Phone: [facility] 05-09-2022 12:13-0500 Systolic blood pressure 98 mm[Hg] Florian Gonzalez MD Work Phone: [facility] 05-04-2022 09:02-0500 Body height 185.4 cm Phil Lobato MD Work Phone: [facility] 05-04-2022 09:02-0500 Body mass index (BMI) [Ratio] 29.69 kg/m2 Phli Lobato MD Work Phone: [facility] 05-04-2022 09:02-0500 Body weight 102.06 kg Phil Lobato MD Work Phone: [facility] 04-28-2022 09:57-0500 Body height 185.4 cm Toya Smith MD Work Phone: [facility] 04-28-2022 09:57-0500 Body mass index (BMI) [Ratio] 29.69 kg/m2 Toya Smith MD Work Phone: [facility] 04-28-2022 09:57-0500 Body temperature 96.91 [degF] Toya Smith MD Work Phone: [facility] 04-28-2022 09:57-0500 Body weight 102.06 kg Toya Smith MD Work Phone: [facility] 04-28-2022 09:57-0500 Diastolic blood pressure 82 mm[Hg] Toya Smith MD Work Phone: [facility] 04-28-2022 09:57-0500 Systolic blood pressure 128 mm[Hg] Toya Smith MD Work Phone: [facility] 03-13-2022 23:17-0500 Body height 185.42 cm [facility] Work Phone: 03-13-2022 23:17-0500 Body mass index (BMI) [Ratio] 31.2 kg/m2 [facility] Work Phone: 03-13-2022 23:17-0500 Body temperature 97.6 [degF] [facility] Work Phone: 03-13-2022 23:17-0500 Body weight 107.5 kg [facility] Work Phone: 03-13-2022 23:17-0500 Diastolic blood pressure 102 mm[Hg] [facility] Work Phone: 03-13-2022 23:17-0500 Heart rate 66 /min [facility] Work Phone: 03-13-2022 23:17-0500 Respiratory rate 18 /min [facility] Work Phone: 03-13-2022 23:17-0500 SaO2% (BldA) [Mass fraction] 99 % [facility] Work Phone: 03-13-2022 23:17-0500 Systolic blood pressure 165 mm[Hg] [facility] Work Phone: 03-10-2022 08:39-0500 Body temperature 97 [degF] Florian Gonzalez MD Work Phone: [facility] 03-10-2022 08:39-0500 Body weight 105.69 kg Florian Gonzalez MD Work Phone: [facility] 03-10-2022 08:39-0500 Diastolic blood pressure 76 mm[Hg] Florian Gonzalez MD Work Phone: [facility] 03-10-2022 08:39-0500 Heart rate 60 /min Florian Gonzalez MD Work Phone: [facility] 03-10-2022 08:39-0500 Respiratory rate 12 /min Florian Gonzalez MD Work Phone: [facility] 03-10-2022 08:39-0500 Systolic blood pressure 112 mm[Hg] Florian Gonzalez MD Work Phone: [facility] 02-02-2022 08:10-0400 Body weight 108.86 kg Leonides Baker MD Work Phone: [facility] 02-02-2022 08:10-0400 Diastolic blood pressure 72 mm[Hg] Leonides Baker MD Work Phone: [facility] 02-02-2022 08:10-0400 Systolic blood pressure 110 mm[Hg] Leonides Baker MD Work Phone: [facility] 01-29-2022 08:19-0400 Diastolic blood pressure 58 mm[Hg] [facility] Work Phone: 01-29-2022 08:19-0400 Heart rate 71 /min [facility] Work Phone: 01-29-2022 08:19-0400 Respiratory rate 20 /min [facility] Work Phone: 01-29-2022 08:19-0400 SaO2% (BldA) [Mass fraction] 98 % [facility] Work Phone: 01-29-2022 08:19-0400 Systolic blood pressure 120 mm[Hg] [facility] Work Phone: 01-29-2022 05:26-0400 Body height 185.42 cm [facility] Work Phone: 01-29-2022 05:26-0400 Body mass index (BMI) [Ratio] 32.2 kg/m2 [facility] Work Phone: 01-29-2022 05:26-0400 Body temperature 96.3 [degF] [facility] Work Phone: 01-29-2022 05:26-0400 Body weight 110.9 kg [facility] Work Phone: 12-30-2021 10:27-0400 Body weight 106.14 kg Quincy Rajguru TEXTILE BROKER.[employer]ACING [employer]ER Work Phone: [facility] 12-30-2021 10:27-0400 Diastolic blood pressure 58 mm[Hg] Quincy Rajguru TEXTILE BROKER.FACING GRINDER Work Phone: [facility] 12-30-2021 10:27-0400 Heart rate 60 /min Quincy Rajguru TEXTILE BROKER.FACING GRINDER Work Phone: [facility] 12-30-2021 10:27-0400 Systolic blood pressure 100 mm[Hg] Quincy Rajguru TEXTILE BROKER.FACING GRINDER Work Phone: [facility] 2021 10:00-0400 Body height 185.4 cm Quincy Rajguru TEXTILE BROKER.FACING GRINDER Work Phone: [facility] 2021 10:00-0400 Body weight 105.23 kg Quincy Rajguru TEXTILE BROKER.FACING GRINDER Work Phone: [facility] 2021 10:00-0400 Diastolic blood pressure 64 mm[Hg] Quincy Rajguru TEXTILE BROKER.FACING GRINDER Work Phone: [facility] 2021 10:00-0400 Systolic blood pressure 100 mm[Hg] Quincy Rajguru TEXTILE BROKER.FACING GRINDER Work Phone: [facility] 10-05-2021 12:35-0400 Body weight 107.5 kg Kusum Millan TEXTILE BROKER.FACING GRINDER Work Phone: [facility] 10-05-2021 12:35-0400 Diastolic blood pressure 70 mm[Hg] Kusum Millan TEXTILE BROKER.FACING GRINDER Work Phone: [facility] 10-05-2021 12:35-0400 Systolic blood pressure 104 mm[Hg] Kusum Millan TEXTILE BROKER.FACING GRINDER Work Phone: [facility] 08-13-2021 10:42-0400 Body weight 104.78 kg Shea Van TEXTILE BROKER.FACING GRINDER Work Phone: [facility] 08-13-2021 10:42-0400 Diastolic blood pressure 64 mm[Hg] Shea Older TEXTILE BROKER.FACING GRINDER Work Phone: [facility] 08-13-2021 10:42-0400 Heart rate 99 /min Shea Older TEXTILE BROKER.FACING GRINDER Work Phone: [facility] 08-13-2021 10:42-0400 Respiratory rate 18 /min Shea Older TEXTILE BROKER.FACING GRINDER Work Phone: [facility] 08-13-2021 10:42-0400 SaO2% (BldA) [Mass fraction] 98 % Shea Older TEXTILE BROKER.FACING GRINDER Work Phone: [facility] 08-13-2021 10:42-0400 Systolic blood pressure 94 mm[Hg] Shea Older TEXTILE BROKER.FACING GRINDER Work Phone: [facility] 06-30-2021 19:49-0400 Diastolic blood pressure 92 mm[Hg] [facility] Work Phone: 06-30-2021 19:49-0400 Heart rate 73 /min [facility] Work Phone: 06-30-2021 19:49-0400 Respiratory rate 15 /min [facility] Work Phone: 06-30-2021 19:49-0400 SaO2% (BldA) [Mass fraction] 98 % [facility] Work Phone: 06-30-2021 19:49-0400 Systolic blood pressure 128 mm[Hg] [facility] Work Phone: 06-30-2021 16:13-0400 Body height 185.42 cm [facility] Work Phone: 06-30-2021 16:13-0400 Body mass index (BMI) [Ratio] 32.3 kg/m2 [facility] Work Phone: 06-30-2021 16:13-0400 Body temperature 97.9 [degF] [facility] Work Phone: 06-30-2021 16:13-0400 Body weight 111 kg [facility] Work Phone: Encounters Encounter Date Encounter Type Care Provider Facility Start: 12-25-2024 End: 12-25-2024 ambulatory DAISY FAUSTINA Facility:[facility] Start: 12-10-2024 End: 12-10-2024 ambulatory ISA ALONSO Facility:[facility] Start: 11-19-2024 End: 11-19-2024 Office outpatient visit 25 minutes Quincy Alonzo TEXTILE BROKER.FACING GRINDER Work Phone: Psychiatry Comment on above: Generalized anxiety disorder (Primary Dx); Psychosocial stressors; Insomnia due to other mental disorder; Recurrent major depressive disorder, in partial remission; Encounter for long-term (current) use of medications Start: 11-19-2024 End: 11-19-2024 ambulatory FLORIAN Rubio FAUSTINA Facility:[facility] Start: 11-11-2024 End: 11-11-2024 Office outpatient visit 25 minutes Shea Etienne TEXTILE BROKER.FACING GRINDER Work Phone: [facility] [place] Comment on above: Mild intermittent as thma without complication (HCC) (Primary Dx); Numbness and tingling in right hand; Left ear pain; Atrial fibrillation with RVR (HCC); Chronic combined systolic and diastolic congestive heart failure (HCC); LEXIE (obstructive sleep apnea); Generalized anxiety disorder; Major depressive disorder, recurrent episode, moderate (HCC); Hyperlipidemia, unspecified hyperlipidemia type; Impaired fasting glucose; Orthostatic hypotension Start: 11-11-2024 End: 11-11-2024 ambulatory SHEA ETIENNE Facility:[facility] Start: 10-25-2024 End: 10-25-2024 ambulatory ISA ALONSO Facility:[facility] Start: 10-22-2024 End: 10-22-2024 Patient encounter procedure Antonio Sathl PA-C Work Phone: Urology Comment on above: Balanitis (Primary D x); Urge incontinence of urine; Screening for genitourinary condition Start: 10-22-2024 End: 10-22-2024 ambulatory FLORIAN GONZALEZ Facility:[facility] Start: 10-15-2024 End: 10-15-2024 ambulatory Jenn Vidales RN Work Phone: [facility] Comment on above: Bi-Weekly Outreach ( Recurring) for Chronic Disease Management, Bi-Weekly Outreach (Recurring) for Chronic Disease Management Start: 10-15-2024 End: 10-16-2024 Follow-up encounter Shea Etienne APRN.FACING GRINDER Work Phone: [facility] [place] Start: 10-09-2024 End: 10-09-2024 Subsequent hospital visit by physician Xr [facility] Work Phone: Radiology Comment on above: Acute midline low ba ck pain without sciatica [M54.50] Start: 10-09-2024 End: 10-09-2024 Office outpatient visit 25 minutes Shea Etienne TEXTILE BROKER.FACING GRINDER Work Phone: [facility] [place] Comment on above: Fall, initial encoun ter (Primary Dx); Acute midline low back pain without sciatica; Injury of head, initial encounter; Acute pain of both shoulders; skilled nursing (current) use of anticoagulants Start: 10-09-2024 End: 10-09-2024 ambulatory Jenn Vidales RN Work Phone: [facility] Comment on above: Bi-Weekly Outreach ( Recurring) for Chronic Disease Management Head Injury; back in jury Start: 10-09-2024 End: 10-10-2024 Telephone encounter Shea Etienne APRN.FACING GRINDER Work Phone: [facility] [place] Start: 10-08-2024 End: 10-08-2024 Office outpatient visit 25 minutes Quincy Alonzo TEXTILE BROKER.FACING GRINDER Work Phone: Psychiatry Comment on above: Major depressive dis order, 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); Insomnia due to other mental disorder; Generalized anxiety disorder; Psychosocial stressors; Encounter for long-term (current) use of medications Start: 10-08-2024 End: 10-08-2024 ambulatory QUINCY ALONZO Facility:[facility] Start: 10-06-2024 End: 10-07-2024 Refrachel Baker MD Work Phone: [facility] Comment on above: Refill Request Start: 09-26-2024 End: 09-26-2024 ambulatory Jenn Vidales RN Work Phone: [facility] Comment on above: Bi-Weekly Outreach ( Recurring) for Chronic Disease Management Start: 09-25-2024 End: 09-25-2024 ambulatory Jenn Vidales RN Work Phone: [facility] Comment on above: Started Bi-Weekly Ou treach (Recurring) for Chronic Disease Management Start: 09-23-2024 End: 09-23-2024 Telephone encounter Quincy Alonzo APRN.FACING GRINDER Work Phone: Psychiatry Comment on above: Appointment Start: 09-23-2024 End: 09-23-2024 Patient encounter procedure Quincy Alonzo APRN.FACING GRINDER Work Phone: Psychiatry Comment on above: APPOINTMENT CANCELLE D (Primary Dx) Start: 09-23-2024 End: 09-23-2024 Telemedicine consultation with patient Quincy Trevor Alonzo APRN.FACING GRINDER Work Phone: Psychiatry Start: 09-23-2024 End: 09-23-2024 ambulatory QUINCY ALONZO Facility:[facility] Start: 09-19-2024 End: 09-20-2024 Refill Josselin Maldonado MD Work Phone: [address] [place] [id number] Comment on above: Refill Request Start: 09-18-2024 End: 09-18-2024 Follow-up encounter Antonio Stahl PA-C Work Phone: Urology Comment on above: Results Start: 09-18-2024 End: 09-18-[address] Lyudmila Euceda MD -[facility] Work Phone: Start: 09-18-2024 End: 09-18-[address] Florian Gonzalez MD Work Phone: [facility] Work Phone: Start: 09-17-2024 End: 09-17-2024 ambulatory [facility] Work Phone: [facility] Comment on above: Spirometry Start: 09-17-2024 End: 09-17-2024 Patient encounter procedure [facility] Work Phone: [facility] Start: 09-17-2024 End: 09-19-2024 Telephone encounter Josselin Maldonado MD Work Phone: Pulmonary Medicine Start: 09-17-2024 End: 09-17-2024 ambulatory FLORIAN GONZALEZ Facility:[facility] Start: 09-17-2024 End: 09-17-2024 Patient encounter procedure Josselin Maldonado MD Work Phone: Pulmonary Medicine Comment on above: Cough variant asthma (HCC) (Primary Dx) Start: 09-17-2024 End: 09-17-2024 Patient encounter procedure [facility] Work Phone: [facility] Start: 09-17-2024 End: 09-17-2024 ambulatory [facility] Work Phone: [facility] Comment on above: Spirometry Start: 09-14-2024 End: 09-14-2024 ambulatory Shyanne Corona RN [facility] Comment on above: High Risk phone cont act for Chronic Disease Management Start: 09-14-2024 End: 09-14-2024 Telephone encounter Deon Glez MD Work Phone: Virtual Medicine Start: 09-13-2024 End: 09-13-2024 Patient Outreach Gilmer Pearson RN Work Phone: [facility] Comment on above: Transition Of Care ( Inbound call ) Urinary frequency (P rimary Dx) Bi-Weekly Outreach ( Recurring) for Chronic Disease Management Care Coordination (Tyler hooker review and outreach for CHF GDMT Care Path) Start: 08-29-2024 ambulatory FLORIAN GONZALEZ Faci lity:[facility] Start: 08-29-2024 End: 08-29-2024 ambulatory FLORIAN GONZALEZ Facility:[facility] Start: 08-15-2024 End: 08-15-2024 ambulatory Jenn Vidales RN Work Phone: [facility] Comment on above: Bi-Weekly Outreach ( Recurring) for Chronic Disease Management Start: 08-06-2024 End: 08-06-2024 Office outpatient visit 25 minutes Quincy Alonzo APRN.FACING GRINDER Work Phone: Psychiatry Comment on above: Generalized anxiety disorder (Primary Dx); Psychosocial stressors; Chronic post-traumatic stress disorder (PTSD); Major depressive disorder, recurrent severe without psychotic features (HCC); Insomnia due to other mental disorder; Encounter for long-term (current) use of medications Start: 08-06-2024 End: 08-06-2024 ambulatory QUINCY ALONZO Facility:[facility] Start: 07-31-2024 End: 07-31-2024 ambulatory Jenn Vidales RN Work Phone: [facility] Comment on above: Bi-Weekly Outreach ( Recurring) for Chronic Disease Management Start: 07-26-2024 End: 07-26-2024 Chart abstracting Kusum Jeffries [facility] Work Phone: Psychology Start: 07-22-2024 End: 07-22-2024 ambulatory FLORIAN GONZALEZ Facility:[facility] Start: 07-22-2024 End: 07-22-2024 Patient encounter procedure Jackeline Hair APRN.FACING GRINDER Work Phone: [place] [facility] Comment on above: Excessive bleeding ( Primary Dx) Start: 07-22-2024 End: 07-22-2024 Emergency department patient visit Dr. Florian Gonzalez MD Work Phone: -Emergency Department Work Phone: Start: 07-19-2024 End: 07-19-2024 Telephone encounter Kusum Jeffries [facility] Work Phone: Psychology Comment on above: bh consult Start: 07-17-2024 End: 07-18-2024 ambulatory Jenn Vidales RN Work Phone: [facility] Comment on above: [facility] Start: 07-01-2024 End: 07-01-2024 Telephone encounter Quincy Alonzo APRN.FACING GRINDER Work Phone: Psychiatry Start: 06-19-2024 End: 06-19-2024 Refill Quincy Alonzo APRN.FACING GRINDER Work Phone: Psychiatry Comment on above: Med Change Request Start: 06-10-2024 End: 06-12-2024 Telephone encounter Quincy Alonzo APRN.FACING GRINDER Work Phone: [facility] [place] Start: 05-31-2024 End: 07-31-2024 Follow-up encounter Domo Granda APRN.DIRECTOR OF TECHNOLOGY Work Phone: [facility] [place] Start: 05-28-2024 End: 05-28-2024 [facility] Start: 05-28-2024 End: 05-28-2024 Subsequent hospital visit by physician Xr [facility] [place] Work Phone: Radiology Comment on above: Acute cough [R05.1] Start: 05-28-2024 End: 05-28-2024 Office outpatient visit 15 minutes Domo Granda APRN.DIRECTOR OF TECHNOLOGY Work Phone: [facility] [place] Comment on above: Acute cough (Primary Dx); Acute non-recurrent frontal sinusitis; Stage 1 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 ([facility]) Start: 05-28-2024 End: 05-28-2024 Office outpatient visit 40 minutes Quincy Alonzo APRN.FACING GRINDER Work Phone: Psychiatry Comment on above: Chronic post-traumat ic stress disorder (PTSD) (Primary Dx); Generalized anxiety disorder; Major depressive disorder, recurrent severe without psychotic features (HCC); Insomnia due to other mental disorder; Encounter for long-term (current) use of medications; Psychosocial stressors Start: 05-28-2024 End: 05-28-2024 ambulatory [facility] FAUSTINA Facility:[facility] Start: 05-27-2024 End: 05-27-2024 Bamboo flowsheet Jerry Rogeliobharath DO Work Phone: [facility] Start: 05-27-2024 End: 05-27-2024 Bamboo flowsheet Jerry Kellogg DO Work Phone: [facility] Start: 05-27-2024 End: 05-27-2024 Office outpatient visit 15 minutes Jerry Kellogg DO Work Phone: [facility] [place] Comment on above: Bicipital tendinitis of right shoulder (Primary Dx); Sprain of right rotator cuff capsule, initial encounter; Impingement syndrome of right shoulder Start: 05-27-2024 End: 05-27-2024 ambulatory JERRY KELLOGG Not Available Start: 05-14-2024 End: 05-14-2024 Refill Leonides Baker MD Work Phone: [employer] Comment on above: Refill Request Start: 05-13-2024 End: 05-13-2024 ambulatory SHEA ETIENNE Facility:[facility] Start: 05-13-2024 End: 05-13-2024 Patient encounter procedure Shea Etienne TEXTILE BROKER.FACING GRINDER Work Phone: Internal [facility] [place] Comment on above: Medicare annual well ness visit, subsequent (Primary Dx); Hyperlipidemia, unspecified hyperlipidemia type; Balanitis; Urge incontinence of urine; Gastric bypass status for obesity; Chronic combined systolic and diastolic congestive heart failure (HCC); Atrial fibrillation with RVR (HCC); Impaired fasting glucose; Major depressive disorder, recurrent episode, moderate (HCC); Generalized anxiety disorder; 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); LEXIE (obstructive sleep apnea); BPH with urinary obstruction Start: 05-01-2024 End: 05-01-2024 [facility] Leonides Baker MD Work Phone: [employer] Comment on above: Atrial fibrillation with RVR (HCC) (Primary Dx); Syncope, unspecified syncope type; Orthostatic hypotension; LEXIE (obstructive sleep apnea); Hyperlipidemia, unspecified hyperlipidemia type; Gastric bypass status for obesity; Obesity, Class I, BMI 30-34.9; Impaired fasting glucose; Vitamin D deficiency; Major depressive disorder, recurrent episode, moderate (HCC); BPH with urinary obstruction; Varicose veins of both legs with edema; Obesity, Class II, BMI 35-39.9; Stage 1 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 ([facility]) Start: 04-23-2024 End: 04-23-2024 ambulatory FLORIAN GONZALEZ Facility:[facility] Start: 04-22-2024 End: 04-26-2024 Refill Quincy Alonzo APRN.FACING GRINDER Work Phone: Psychiatry Comment on above: Refill Request Start: 03-08-2024 End: 03-08-2024 Refill [facility] Comment on above: Refill Request Start: 01-26-2024 End: 01-26-2024 Refill Quincy Alonzo APRN.FACING GRINDER Work Phone: Psychiatry Comment on above: Refill Request Start: 01-07-2024 End: 01-07-2024 Refill Leonides Baker MD Work Phone: [facility] Comment on above: Refill Request Start: 11-10-2023 End: 11-10-2023 Patient encounter procedure Florian Gonzalez MD Work Phone: [facility] [place] Comment on above: Hyperlipidemia, unsp ecified hyperlipidemia type (Primary Dx); LEXIE (obstructive sleep apnea); Balanitis; Impaired fasting glucose; Atrial fibrillation with RVR (HCC); Vitamin D deficiency Start: 11-08-2023 Refill Antonioavelino Stahl PA-C Work Phone: Urology Comment on above: Refill Request Start: 11-01-2023 Refill Florian castelan MD Work Phone: [facility] [place] Comment on above: Refill Request Start: 10-31-2023 End: 10-31-2023 Patient encounter procedure Quincy Alonzo APRN.FACING GRINDER Work Phone: Psychiatry Comment on above: Recurrent major depr essive disorder, in partial remission (HCC) (Primary Dx); Generalized anxiety disorder; Chronic post-traumatic stress disorder (PTSD) Start: 10-30-2023 Refill Antonio Stahl PA-C Work Phone: Urology Comment on above: Refill Request Start: 10-12-2023 Refill Leonides costa MD Work Phone: [place] [employer] [facility] Comment on above: Refill Request Start: 09-18-2023 End: 09-18-2023 Office outpatient visit 25 minutes Leonides Baker MD Work Phone: [place] [employer] Comment on above: Atrial fibrillation with RVR (HCC) (Primary Dx); Syncope, unspecified syncope type; Orthostatic hypotension; Encounter for monitoring digoxin therapy; Hyperlipidemia, unspecified hyperlipidemia type; LEXIE (obstructive sleep apnea); Gastric bypass status for obesity; Varicose veins of both legs with edema; Impaired fasting glucose; Obesity, Class I, BMI 30-34.9 Start: 09-13-2023 End: 09-13-2023 Subsequent hospital visit by physician Xr [facility] [place] [facility] Work Phone: Radiology Comment on above: Other chronic pulmon naty embolism without acute cor pulmonale (HCC) [I27.82] Start: 08-01-2023 End: 08-01-2023 Patient encounter procedure Quincy Alonzo APRN.FACING GRINDER Work Phone: Psychiatry Comment on above: Recurrent major depr essive disorder, in partial remission (HCC) (Primary Dx); Generalized anxiety disorder; Chronic post-traumatic stress disorder (PTSD) Start: 07-11-2023 ambulatory FLORIAN Parra lity:[facility] Start: 07-11-2023 End: 07-11-2023 Subsequent hospital visit by physician Noel Bath [facility] Comment on above: Cervicalgia [M54.2] Start: 06-26-2023 Telephone encounter Quincy skinner APRN.FACING GRINDER Work Phone: Psychiatry Comment on above: Appointment Start: 06-06-2023 End: 06-06-2023 Office outpatient visit 25 minutes Leonides Baker MD Work Phone: [facility] Comment on above: Atrial fibrillation with RVR (HCC) (Primary Dx); Atrial fibrillation, unspecified type (HCC); Syncope, unspecified syncope type; 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); Major depressive disorder, recurrent episode, moderate (HCC); Chronic combined systolic and diastolic congestive heart failure (HCC); Other chronic pulmonary embolism without acute cor pulmonale (HCC) Start: 05-30-2023 End: 05-30-2023 Patient encounter procedure Quincy Alonzo APRN.CNP Work Phone: Psychiatry Comment on above: Major depressive dis order, 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); Generalized anxiety disorder; Chronic post-traumatic stress disorder (PTSD) Start: 05-17-2023 End: 05-17-2023 ambulatory Sofya Rodriguez PT, DPT [place] [facility] Comment on above: Bursitis of other bu rsa of right hip Start: 05-15-2023 End: 05-15-2023 Office outpatient visit 25 minutes Jerry Kellogg DO Work Phone: [facility] Comment on above: Cervical spine pain (Primary Dx); Cervical spinal stenosis; Spondylolisthesis of cervical region; Cervical spondylosis; Cervical arthritis with myelopathy Start: 05-12-2023 End: 05-12-2023 Patient encounter procedure Florian Gonzalez MD Work Phone: [facility] [place] Comment on above: Medicare annual well ness visit, subsequent (Primary Dx); Atrial fibrillation with RVR (HCC); BPH with urinary obstruction; emt intermediate current use of anticoagulant; Bursitis of other bursa of right hip; Major depressive disorder, recurrent episode, moderate (HCC); Generalized anxiety disorder; Hyperlipidemia, unspecified hyperlipidemia type; Impaired fasting glucose; Cervicalgia Start: 02-24-2023 Refill Antonio Stahl PA-C Work Phone: Urology Comment on above: Refill Request Start: 02-23-2023 End: 02-23-2023 Office outpatient visit 25 minutes Leonides Baker MD Work Phone: [place] [facility] Comment on above: Atrial fibrillation with RVR (HCC) (Primary Dx); Major depressive disorder, recurrent episode, moderate (HCC); 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); Atrial fibrillation, unspecified type (HCC) Start: 02-22-2023 End: 02-22-2023 Subsequent hospital visit by physician Kassie Ruiz MD Work Phone: Ambulatory Surgery Comment on above: Special screening fo r malignant neoplasms, colon [Z12.11] Start: 02-21-2023 End: 02-21-2023 Patient encounter procedure Antonio Stahl PA-C Work Phone: Urology Comment on above: Urge incontinence of urine (Primary Dx); Balanitis Start: 02-17-2023 End: 02-13-2024 Telephone encounter Florian Gonzalez MD Work Phone: [facility] [place] Comment on above: Cardiac Clearance; 1 04/24/2022 colon asc; open access Start: 01-31-2023 End: 01-31-2023 Patient encounter procedure Florian Gonzalez MD Work Phone: [facility] [place] Comment on above: Edema of both legs ( Primary Dx); Tinea pedis of right foot; Special screening for malignant neoplasms, colon Start: 01-19-2023 End: 01-19-2023 ambulatory [facility] Start: 01-19-2023 End: 01-19-2023 Office outpatient visit 15 minutes Toya Smith MD Work Phone: [facility] Comment on above: Arthritis of scaphoi v-xxxddbukm-oalxpxuub joint of left hand (Primary Dx); Primary osteoarthritis of first carpometacarpal joint of left hand Start: 12-21-2022 MyChart Refill CP Leonides almeida MD Work Phone: [employer] Comment on above: Medication Refill Ap proved Refill Request Start: 12-16-2022 Refill Leonides costa MD Work Phone: [employer] Comment on above: Refill Request Start: 12-09-2022 End: 12-09-2022 Subsequent hospital visit by physician Noel [facility] [place] Work Phone: Radiology Comment on above: Tibial pain [M89.8X6 ] Start: 12-09-2022 End: 12-09-2022 Patient encounter procedure Florian Gonzalez MD Work Phone: [facility] [place] Comment on above: Tibial pain (Primary Dx); Idiosyncratic reaction to medication after proper dose, subsequent encounter; Pruritus Start: 11-22-2022 Telephone encounter Leonides osorio MD Work Phone: [facility] Comment on above: Refill Request Start: 11-18-2022 End: 11-18-2022 Patient encounter procedure Antonio Stahl PA-C Work Phone: Urology Comment on above: Balanitis; Urge incontinence of urine Start: 11-08-2022 End: 11-08-2022 Patient encounter procedure Florian Gonzalez MD Work Phone: [facility] [place] Comment on above: Balanitis (Primary D x); Impaired fasting glucose; Hyperlipidemia, unspecified hyperlipidemia type; Generalized anxiety disorder; Major depressive disorder, recurrent episode, moderate (HCC); Urge incontinence of urine; LEXIE (obstructive sleep apnea) Start: 10-27-2022 End: 10-27-2022 ambulatory FLORIAN ULRICHASQUEZ [facility] Start: 10-12-2022 End: 10-13-2022 ambulatory BUDDHISM [employer] [facility] Start: 10-12-2022 End: 10-12-2022 ambulatory Caodaism Backer PA-C Work Phone: [facility] Comment on above: Arthritis of scaphoi g-rjhcudjgx-yhwjajmnb joint of left hand (Primary Dx) Start: 09-30-2022 End: 10-01-2022 ambulatory BUDDHISM [employer] [facility] Start: 09-30-2022 End: 09-30-2022 Follow-up encounter Caodaism Backer PA-C Work Phone: [facility] Comment on above: Arthritis of scaphoi l-iwnwmchaq-uxwndqsne joint of left hand (Primary Dx) Start: 09-27-2022 Refill Saida Guardado Work Phone: Psychiatry Comment on above: Refill Request Start: 09-21-2022 End: 09-22-2022 ambulatory BUDDHISM BACKER [facility] Start: 09-21-2022 End: 09-21-2022 Follow-up encounter Berenice Mclainer PA-C Work Phone: [facility] Comment on above: Arthritis of scaphoi q-zjhbkurmi-rltfqbtls joint of left hand (Primary Dx) Start: 09-14-2022 End: 09-15-2022 ambulatory FLORIAN MAUROZ [facility] Start: 09-14-2022 End: 09-14-2022 Follow-up encounter Florian Tony Gonzalez Work Phone: [facility] Comment on above: Arthritis of scaphoi n-pmxmtyito-pppkhrisp joint of left hand (Primary Dx) Start: 09-07-2022 End: 09-08-2022 ambulatory FLORIAN DOLANQUEZ [facility] Start: 09-07-2022 End: 09-07-2022 ambulatory Caodaism Backer PA-C Work Phone: [facility] Comment on above: Arthritis of scaphoi t-vdpdncodw-vfqendepb joint of left hand (Primary Dx) Start: 08-31-2022 End: 09-01-2022 ambulatory FLORIAN DOLANQUEZ [facility] Start: 08-24-2022 End: 08-25-2022 ambulatory FLORIAN DOLANQUEZ [facility] Start: 08-17-2022 End: 08-18-2022 ambulatory FLORIAN GONZALEZ [facility] Start: 08-17-2022 End: 08-17-2022 Follow-up encounter Berenice Hanks PA-C Work Phone: [facility] Comment on above: Arthritis of scaphoi g-txfbzftuc-hxrzsezkz joint of left hand (Primary Dx) Start: 08-15-2022 End: 08-15-2022 Office outpatient visit 25 minutes Leonides Baker MD Work Phone: [facility] Comment on above: Atrial fibrillation with RVR (HCC) (Primary Dx); Impaired fasting glucose; Chronic combined systolic and diastolic congestive heart failure (HCC); 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); Other chronic pulmonary embolism without acute cor pulmonale (HCC) Start: 08-11-2022 End: 08-12-2022 ambulatory [facility] Start: 08-11-2022 End: 08-11-2022 Subsequent hospital visit by physician Toya Smith MD Work Phone: [facility] Comment on above: Left hand pain Start: 08-10-2022 End: 08-11-2022 ambulatory [facility] Start: 08-10-2022 End: 08-10-2022 Follow-up encounter Caodaism Backer PA-C Work Phone: [facility] Comment on above: Arthritis of scaphoi t-lwtffeexg-jjumythxk joint of left hand (Primary Dx) Start: 08-03-2022 End: 08-04-2022 ambulatory [facility] Start: 08-03-2022 End: 08-03-2022 Follow-up encounter Caodaism Backer PA-C Work Phone: [facility] Comment on above: Arthritis of scaphoi z-smfodszvs-xemtogaqt joint of left hand (Primary Dx) Start: 08-02-2022 Orders Only Caodaism Back er PA-C Work Phone: [facility] Comment on above: Left hand pain (Prim naty Dx) Start: 07-20-2022 End: 07-21-2022 ambulatory [facility] [facility] Start: 07-20-2022 End: 07-20-2022 Follow-up encounter Caodaism Backer PA-C Work Phone: [facility] Comment on above: Arthritis of scaphoi y-ksdmzlkdw-hhythxjat joint of left hand (Primary Dx) Start: 07-11-2022 End: 07-11-2022 ambulatory Caodaism Backer PA-C Work Phone: [facility] Comment on above: Arthritis of scaphoi o-dklowscmb-enbggmide joint of left hand Start: 07-11-2022 End: 07-11-2022 Postop follow up visit related to original px Berenice Hanks PA-C Work Phone: [facility] Comment on above: Arthritis of scaphoi p-wjzorjyhq-ymyitpvvf joint of left hand Start: 07-01-2022 Telephone encounter Berenice Hanks PA-C Work Phone: [facility] Comment on above: Medication Problem Start: 07-01-2022 End: 07-01-2022 ambulatory FLORIAN [facility] Start: 07-01-2022 End: 07-01-2022 Subsequent hospital visit by physician Toya Smith MD Work Phone: [facility] Comment on above: Arthritis of scaphoi j-xtwnhulpw-gzaqbijsx joint of left hand (Primary Dx) Start: 06-28-2022 Refill Quincy boo APRN.CNP Work Phone: Psychiatry Comment on above: Refill Request Start: 06-24-2022 End: 06-24-2022 [facility] Start: 06-24-2022 End: 06-24-2022 Encounter for other preprocedural examination TOYA SMITH [facility] Start: 06-22-2022 Refill Leonides costa MD Work Phone: [employer] Comment on above: Refill Request Start: 06-21-2022 Refill Leonides costa MD Work Phone: [employer] Comment on above: Refill Request Start: 06-13-2022 End: 06-13-2022 Patient encounter procedure Florian Gonzalez MD Work Phone: [facility] [place] Comment on above: Impacted cerumen, le ft ear (Primary Dx); Generalized anxiety disorder; Balanitis Start: 05-31-2022 ambulatory Berenice monroy PA-C Work Phone: [facility] Start: 05-26-2022 End: 05-26-2022 ambulatory TOYA SMITH [facility] Start: 05-26-2022 End: 05-26-2022 Office outpatient visit 25 minutes Toya Smith MD Work Phone: [facility] [employer] Comment on above: Arthritis of scaphoi h-vxkeiytos-fwfjlhvoq joint of left hand Start: 05-18-2022 End: 05-18-2022 Patient encounter procedure Quincy Alonzo TEXTILE BROKER.FACING GRINDER Work Phone: Psychiatry Comment on above: Major depressive dis order, recurrent episode, moderate (HCC) (Primary Dx); LANA (generalized anxiety disorder); Chronic post-traumatic stress disorder (PTSD) Start: 05-09-2022 End: 05-09-2022 Patient encounter procedure Florian Gonzalez MD Work Phone: [facility] [place] Comment on above: Medicare annual [facility] visit, subsequent (Primary Dx); Varicose veins of both legs with edema; Atrial fibrillation with RVR (HCC); Major depressive disorder, recurrent episode, moderate (HCC); Hyperlipidemia, unspecified hyperlipidemia type; Impaired fasting glucose; Vitamin D deficiency Start: 05-05-2022 Refill Quincy boo TEXTILE BROKER.FACING GRINDER Work Phone: Neurology Comment on above: Refill Request Start: 05-04-2022 End: 05-04-2022 ambulatory PHIL LOBATO [facility] Start: 05-04-2022 End: 05-04-2022 Patient encounter procedure Phil Lobato MD Work Phone: [facility] [place] Comment on above: Wrist pain, left (Pr imary Dx); Primary osteoarthritis of left wrist Start: 05-02-2022 Orders Only Leonides costa MD Work Phone: [facility] Comment on above: Atrial fibrillation with RVR (HCC) (Primary Dx); Syncope, unspecified syncope type Refill Request Start: 04-28-2022 End: 04-29-2022 ambulatory TOYA SMITH [facility] Start: 04-28-2022 End: 04-28-2022 Office outpatient new 30 minutes Toya Smith MD Work Phone: [facility] Song Comment on above: Arthritis of scaphoi v-xqlzblqwt-wkhhakahv joint of left hand (Primary Dx) Start: 04-28-2022 End: 04-28-2022 Subsequent hospital visit by physician Toya Smith MD Work Phone: [facility] [employer] [facility] Comment on above: Left wrist pain Start: 04-26-2022 Orders Only Leonides costa MD Work Phone: [facility] Comment on above: Atrial fibrillation with RVR (HCC) (Primary Dx); Chronic combined systolic and diastolic congestive heart failure (HCC); Atrial fibrillation, unspecified type (HCC) Left wrist pain (Christina maria teresa Dx) Start: 03-31-2022 Refill Leonides costa MD Work Phone: [facility] Comment on above: Refill Request Start: 03-28-2022 Telephone encounter Florian levi MD Work Phone: [facility] [place] Comment on above: Covid Positive Start: 03-24-2022 Refill Florian castelan MD Work Phone: [facility] [place] Comment on above: Refill Request Start: 03-13-2022 End: 03-13-2022 [facility] Start: 03-10-2022 End: 03-10-2022 Patient encounter procedure Florian Gonzalez MD Work Phone: [facility] [place] Comment on above: Plantar fascial fibr omatosis of right foot (Primary Dx); Multiple hemangiomas Start: 02-24-2022 Refill Quincy boo APRN.CNP Work Phone: Psychiatry Comment on above: Refill Request Start: 02-17-2022 Refill Leonides costa MD Work Phone: [facility] Comment on above: Refill Request Start: 02-11-2022 ambulatory [facility] Unavailable Facility:[facility] Start: 02-11-2022 ambulatory Facility:[id number] Start: 02-04-2022 End: 02-05-[address] FLORIAN GONZALEZ MD. Facility:B Start: 02-04-2022 End: 02-04-2022 Patient encounter procedure MATT MARIE [facility] Start: 02-02-2022 End: 02-02-2022 Office outpatient visit 25 minutes Leonides Baker MD Work Phone: [facility] Comment on above: Atrial fibrillation with RVR (HCC) (Primary Dx); Hyperlipidemia, unspecified hyperlipidemia type; Syncope, unspecified syncope type; Orthostatic hypotension; Encounter for monitoring digoxin therapy; Major depressive disorder, recurrent episode, moderate (HCC) Start: 01-29-2022 End: 01-29-2022 Emergency department [facility] Start: 01-21-2022 Refill Quincy boo TEXTILE BROKER.FACING GRINDER Work Phone: Psychiatry Comment on above: Refill Request Start: 01-03-2022 Telephone encounter Florian levi MD Work Phone: [facility] [place] Comment on above: Patient Question Start: 12-30-2021 End: 12-30-2021 Patient encounter procedure Quincy Alonzo TEXTILE BROKER.FACING GRINDER Work Phone: Psychiatry Comment on above: Major depressive dis order, recurrent episode, moderate (HCC) (Primary Dx); LANA (generalized anxiety disorder); Chronic post-traumatic stress disorder (PTSD) Start: 2021 ambulatory Leonides costa MD Work Phone: [facility] Comment on above: RE: ELIQUIS Start: 2021 E-mail encounter fro m caregiver Leonides Baker MD Work Phone: [facility] Start: 2021 End: 2021 Patient encounter procedure Quincy Alonzo APRN.FACING GRINDER Work Phone: Psychiatry Comment on above: Major depressive dis order, recurrent episode, moderate (HCC) (Primary Dx); LANA (generalized anxiety disorder); Chronic post-traumatic stress disorder (PTSD) Start: 11-26-2021 ambulatory Kusum Millan APRN.FACING GRINDER Work Phone: [place] Comment on above: Question regarding N T PRO BNP Refill Request Start: 10-29-2021 End: 10-29-2021 Patient encounter procedure Reji Jitendra CLOTH BRUSHING AND SUEDING SUPERVISOR Work Phone: Psychology Comment on above: Moderate anxiety (Pr imary Dx); Moderate episode of recurrent major depressive disorder (HCC) Start: 10-12-2021 Telephone encounter Reji Na ll CLOTH BR[employer]ING AND SUEDING SUPERVISOR Work Phone: Psychology Comment on above: Consult ([facility] Pt Out reach F/U) Start: 10-07-2021 Telephone encounter Reji Na ll CLOTH BR[employer]ING AND SUEDING SUPERVISOR Work Phone: Psychology Comment on above: Consult ([facility] Return ed Pt's Vm) Start: 10-05-2021 End: 10-05-2021 Patient encounter procedure Kusum Millan APRN.FACING GRINDER Work Phone: [place] [employer] Comment on above: Encounter for monito ring digoxin therapy (Primary Dx); Hyperlipidemia, unspecified hyperlipidemia type; Chronic combined systolic and diastolic congestive heart failure (HCC); Atrial fibrillation with RVR (HCC); Syncope, unspecified syncope type; Orthostatic hypotension; Exertional dyspnea Start: 10-04-2021 Telephone encounter Reji Na ll CLOTH BRUSHING AND SUEDING SUPERVISOR Work Phone: Psychology Comment on above: Consult (Initial [facility] W Pt Outreach) Start: 09-01-2021 Refill Leonides costa MD Work Phone: [place] Comment on above: Refill Request Start: 08-13-2021 End: 08-13-2021 Patient encounter procedure Shea Van APRN.FACING GRINDER Work Phone: [facility] [place] Comment on above: Orthostatic hypotens ion (Primary Dx); Impaired glucose metabolism; Frequent falls Start: 07-30-2021 Refill Florian castelan MD Work Phone: [facility] [place] Comment on above: Refill Request Start: 07-27-2021 ambulatory Florian castelan MD Work Phone: [facility] [place] Start: 06-30-2021 End: 06-30-2021 Emergency department [facility] Start: 03-12-2021 [facility] encounter [facility] Start: 09-27-2019 End: 09-27-2019 ambulatory [facility] Procedures Date Procedure Procedure Detail Performing Clinician Start: 10-22-2024 Urnls dip stick/tablet rgnt auto w/o microscopy Antonio Stahl PA-C Work Phone: Start: 10-09-2024 Radex spine lumbosacral 2/3 views Shea Etienne TEXTILE BROKER.FACING GRINDER Work Phone: Start: 09-17-2024 Nitric oxide gas determination Josselin Maldonado MD Work Phone: Start: 09-17-2024 Co diffusing capacity Josselin meng MD Work Phone: Start: 07-22-[address] Florian Gonzalez MD Work Phone: Start: 05-28-2024 Radiologic exam chest 2 views Domo Granda TEXTILE BROKER.DIRECTOR OF TECHNOLOGY Work Phone: Start: 05-27-2024 Radex shoulder complete minimum 2 views Jerry Kellogg DO Work Phone: Start: 04-23-2024 Lipid 1996 panel - Serum or Plasma Quincy Alonzo TEXTILE BROKER.FACING GRINDER Work Phone: Start: 05-15-2023 Radex spine cervical 2 or 3 views Jerry Kellogg DO Work Phone: Start: 05-09-2023 Lipid 1996 panel - Serum or Plasma Florian Gonzalez MD Work Phone: Start: 02-22-2023 Colonoscopy flx dx w/collj spec when pfrmd Florian Gonzalez MD Work Phone: Start: 02-22-2023 Colonoscopy Kassie Ruiz MD Work Phone: Start: 02-21-2023 Urnls dip stick/tablet rgnt auto w/o microscopy Antonio Stahl PA-C Work Phone: Start: 12-09-2022 Radiologic examination tibia & fibula 2 views Florian Gonzalez MD Work Phone: Start: 11-18-2022 Urnls dip stick/tablet rgnt auto w/o microscopy Antonio Stahl PA-C Work Phone: Start: 05-10-2022 Lipid 1996 panel - Serum or Plasma Leonides Baker MD Work Phone: Start: 01-29-2022 CT cervical spine without contrast Start: 06-30-2021 CT of head without contrast Start: 03-12-2021 MRI of brain with contrast Start: 04-20-2020 Colonoscopy Florian Gonzalez MD Work Phone: Start: 11-14-2017 End: 05-05-2021 H/O: surgery History of detached retina repair Quincy Alonzo APRN.CNP Work Phone: Plan of Treatment Date Care Activity Detail Author Start: 07-22-2034 Urine microalbumin profile DTaP,Tdap,Td Vaccine (4 - Td or Tdap) [facility] Start: 02-22-2033 Screening for malignant neoplasm of colon [facility] Start: 04-20-2030 Screening for malignant neoplasm of colon [facility] Start: 04-23-2029 Lipid panel Lipid Screening [facility] Start: 05-09-2028 Lipid panel Lipid Screening [facility] Start: 05-10-2027 Lipid 1996 panel - Serum or Plasma Lipid Screening [facility] Start: 05-10-2027 LIPID SCREEN LIPID SCREEN [facility] Start: 04-23-2027 Diabetes Screening Diabetes Screening [facility] Start: 05-09-2026 Diabetes Screening Diabetes Screening [facility] Start: 04-12-2026 LIPID SCREEN LIPID SCREEN [facility] Start: 02-22-2026 Colonoscopy Colonoscopy [facility] Start: 02-22-2026 Colorectal Cancer Screening Colorectal Cancer Screening [facility] Start: 02-22-2026 Screening for malignant neoplasm of colon [facility] Start: 12-09-2025 DIABETES SCREEN DIABETES SCREEN [facility] Start: 12-09-2025 Diabetes Screening Diabetes Screening [facility] Start: 11-11-2025 Annual PCP Team Chronic Disease Visit Annual PCP Team Chronic Disease Visit [facility] Start: 10-28-2025 End: 10-28-2025 Patient encounter procedure 10/28/2025 2:15 PM EDT Office Visit Urology [address] [place] [address] Antonio Stahl PA-C [address] [place] [address] 1 YR F/U Urology Comment on above: 1 YR F/U Start: 10-09-2025 Annual PCP Team Chronic Disease Visit Annual PCP Team Chronic Disease Visit [facility] Start: 08-29-2025 Annual PCP Team Chronic Disease Visit Annual PCP Team Chronic Disease Visit [facility] Start: 05-14-2025 End: 05-14-2025 Patient encounter procedure 05/14/2025 8:40 AM EST Office Visit [facility] [place] [address] [place] [address] Florian Gonzalez MD [address] [place] [address] medicare wellness 6 months [facility] [place] Comment on above: medicare wellness 6 months Start: 05-13-2025 Annual PCP Team Chronic Disease Visit Annual PCP Team Chronic Disease Visit [facility] Start: 05-13-2025 Urine microalbumin profile DTaP,Tdap,Td Vaccine (3 - Td or Tdap) [facility] Comment on above: Postponed from 03/24/2024 (Declined at t his time) Start: 05-10-2025 DIABETES SCREEN DIABETES SCREEN [facility] Start: 04-28-2025 End: 07-28-2025 CBC panel - Blood by Automated count COMPLETE BLOOD COUNT Lab Routine Orthostatic hypotension Atrial fibrillation with RVR (HCC) Chronic combined systolic and diastolic congestive heart failure (HCC) Expected: 04/28/2025 (Approximate), Expires: 07/28/2025 [facility] Comment on above: Expected: 04/28/2025 (Approximate), Expi res: 07/28/2025 Start: 04-28-2025 End: 07-28-2025 Comprehensive metabolic 2000 panel - Serum or Plasma COMPREHENSIVE METABOLIC PANEL Lab Routine Hyperlipidemia, unspecified hyperlipidemia type Expected: 04/28/2025 (Approximate), Expires: 07/28/2025 [facility] Comment on above: Expected: 04/28/2025 (Approximate), Expi res: 07/28/2025 Start: 04-28-2025 End: 07-28-2025 Hemoglobin A1c in Blood HEMOGLOBIN A1C Lab Routine Impaired fasting glucose Expected: 04/28/2025 (Approximate), Expires: 07/28/2025 [facility] Comment on above: Expected: 04/28/2025 (Approximate), Expi res: 07/28/2025 Start: 04-28-2025 End: 07-28-2025 Lipid 1996 panel - Serum or Plasma LIPID PANEL, FASTING Lab Routine Hyperlipidemia, unspecified hyperlipidemia type Expected: 04/28/2025 (Approximate), Expires: 07/28/2025 [facility] Work Phone: Comment on above: Expected: 04/28/2025 (Approximate), Expi res: 07/28/2025 Start: 01-21-2025 End: 01-21-2025 Patient encounter procedure 01/21/2025 1:30 PM EDT Office Visit Psychiatry [address] [place] [phone] Quincy Alonzo, TEXTILE BROKER.FACING GRINDER [address] [place] [address] Psychiatry Start: 01-03-2025 End: 01-03-2025 Patient encounter procedure 01/03/2025 1:00 PM EDT Office Visit Pulmonary Medicine [address] [place], [place] [id number] Gemma Tesfaye, TEXTILE BROKER.FACING GRINDER [address] [place] [address] 2 month f/u Pulmonary Medicine Comment on above: 2 month f/u Start: 12-09-2024 Influenza vaccination Influenza Vaccine (#1) Eddie Renee c Start: 11-20-2024 End: 11-20-2024 Patient encounter procedure 11/20/2024 10:30 AM EDT Office Visit Pulmonary Medicine [address] [place] [address] Gemma Tesfaye TEXTILE BROKER.FACING GRINDER [address] [place] [address] 2 month f/u Pulmonary Medicine Comment on above: 2 month f/u Start: 11-19-2024 End: 11-19-2024 Patient encounter procedure 11/19/2024 9:00 AM EDT Office Visit Psychiatry [address] [place] [phone] Quincy Alonzo, TEXTILE BROKER.FACING GRINDER [address] [place] [phone] R/S from VV issues on 09/23/24. Patient requested in office visit Psychiatry Comment on above: R/S from VV issues on 09/23/24. Patient r equested in office visit Start: 11-12-2024 End: 11-12-2024 Patient encounter procedure 11/12/2024 9:00 AM EDT Office Visit Psychiatry [address] [place] [phone] Quincy Alonzo, TEXTILE BROKER.FACING GRINDER [address] [place] [address] R/S from VV issues on 09/23/24. Patient requested in office visit Psychiatry Comment on above: R/S from VV issues on 09/23/24. Patient r equested in office visit Start: 11-11-2024 End: 11-11-2024 Patient encounter procedure 11/11/2024 8:00 AM EDT Office Visit [facility] [place] [address] [place], [place] [address] Shea Etienne, TEXTILE BROKER.FACING GRINDER [address] [place], [place] [id number] follow up 6 months [facility] [place] Comment on above: follow up 6 months Start: 11-09-2024 Annual PCP Team Chronic Disease Visit Annual PCP Team Chronic Disease Visit [facility] Start: 10-22-2024 End: 10-22-2024 Patient encounter procedure Urology Comment on above: Foamy urine and frequency YEARLY: Urge inconti nence of urine/Balanitis DOMINIC 02/21/23; Foamy urine and frequency. [facility] Start: 10-08-2024 End: 10-08-2024 Patient encounter procedure 10/08/2024 11:00 AM EDT Office Visit Psychiatry [address] [place] [phone] Quincy Alonzo, TEXTILE BROKER.FACING GRINDER [address] [place] [phone] Provider ordered sooner follow up Psychiatry Comment on above: Provider ordered sooner follow up Start: 09-24-2024 End: 09-24-2024 Patient encounter procedure 09/24/2024 11:00 AM EDT Office Visit Psychiatry [address] [place] [phone] Quincy Alonzo, TEXTILE BROKER.FACING GRINDER [address] [place] [phone] Psychiatry Start: 09-23-2024 End: 09-23-2024 ambulatory 09/23/2024 10:30 AM EDT [facility] Psychiatry [address] [place] [phone] Quincy Alonzo, TEXTILE BROKER.FACING GRINDER [address] [place] [phone] Psychiatry Start: 09-17-2024 End: 09-17-2024 Patient encounter procedure 09/17/2024 12:45 PM EDT Office Visit Pulmonary Medicine [address] [place] [id number] Josselin Maldonado MD [address] [place] [address] 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) [J44.9] Pulmonary Medicine Comment on above: 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) [J44.9] Start: 09-17-2024 End: 09-17-2024 ambulatory [facility] Comment on above: 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) [J44.9] Start: 09-13-2024 End: 12-13-2024 Bacteria identified in Urine by Culture [facility] Work Phone: Comment on above: Expected: 09/13/2024, Expires: Start: 08-03-2024 DIABETES SCREEN DIABETES SCREEN [facility] Start: 07-22-2024 [facility] Start: 07-02-2024 End: 07-02-2024 Patient encounter procedure 07/02/2024 2:30 PM EDT Office Visit Psychiatry [address] [place] [phone] Quincy Alonzo, TEXTILE BROKER.FACING GRINDER [address] [place] [address] follow up Psychiatry Comment on above: follow up Start: 06-10-2024 End: 06-10-2024 Distance Health 06/10/2024 2:00 PM EST [facility] Psychiatry [address] [place] [address] Quincy Alonzo, TEXTILE BROKER.FACING GRINDER [address] [place] [phone] Provider Ordered follow up Psychiatry Comment on above: Provider Ordered follow up Start: 06-07-2024 Covid-19 Vaccine ( season) Covid-19 Vaccine ( season) [facility] Start: 05-28-2024 End: 05-28-2024 Patient encounter procedure 05/28/2024 2:30 PM EST Office Visit Psychiatry [address] [place] [phone] Quincy Alonzo, TEXTILE BROKER.FACING GRINDER [address] [place] [phone] 7 mo follow up Psychiatry Comment on above: 7 mo follow up Start: 05-27-2024 End: 05-27-2024 Patient encounter procedure 05/27/2024 11:30 AM EST Office Visit [facility] [address] [place] [phone] Jerry Kellogg DO [address] [place] [address] Arrived [facility] Comment on above: Arrived Start: 05-13-2024 End: 05-13-2024 Patient encounter procedure 05/13/2024 8:00 AM EST Office Visit [facility] [place] [address] [place] [address] Shea Etienne, TEXTILE BROKER.FACING GRINDER [address] [place] [address] 6 month follow up-[employer] [facility] [place] Comment on above: 6 month follow up-[employer] Start: 05-12-2024 End: 08-11-2024 25-hydroxyvitamin D3 [Mass/volume] in Serum or Plasma VITAMIN D 25 HYDROXY Lab Routine Vitamin D deficiency Expected: 05/12/2024, Expires: 08/11/2024 [facility] Comment on above: Expected: 05/12/2024, Expires: Start: 05-12-2024 Annual PCP Team Chronic Disease Visit Annual PCP Team Chronic Disease Visit [facility] Start: 05-12-2024 End: 08-11-2024 CBC panel - Blood by Automated count COMPLETE BLOOD COUNT Lab Routine Atrial fibrillation with RVR (HCC) Expected: 05/12/2024, Expires: 08/11/2024 [facility] Work Phone: Comment on above: Expected: 05/12/2024, Expires: Start: 05-12-2024 End: 08-11-2024 Comprehensive metabolic 2000 panel - Serum or Plasma COMPREHENSIVE METABOLIC PANEL Lab Routine Hyperlipidemia, unspecified hyperlipidemia type Expected: 05/12/2024, Expires: 08/11/2024 [facility] Comment on above: Expected: 05/12/2024, Expires: Start: 05-12-2024 End: 08-11-2024 Hemoglobin A1c in Blood HEMOGLOBIN A1C Lab Routine Impaired fasting glucose Expected: 05/12/2024, Expires: 08/11/2024 [facility] Comment on above: Expected: 05/12/2024, Expires: Start: 05-12-2024 End: 08-11-2024 Lipid 1996 panel - Serum or Plasma LIPID PANEL BASIC Lab Routine Hyperlipidemia, unspecified hyperlipidemia type Expected: 05/12/2024, Expires: 08/11/2024 [facility] Comment on above: Expected: 05/12/2024, Expires: Start: 05-05-2024 DIABETES SCREEN DIABETES SCREEN [facility] Start: 05-01-2024 End: 05-01-2024 ambulatory 05/01/2024 9:30 AM [facility] [employer] [place] [id number] [facility] [address] [place] [address] Leonides Baker MD [address] [place] [address] [address] [place] [address] [employer], [facility] Comment on above: [employer] Start: 04-10-2024 Advance Directive Discussion Advance Directive Discussion [facility] Start: 03-24-2024 DTaP/Tdap/Td Vaccines (3 - Td or Tdap) DTaP/Tdap/Td Vaccines (3 - Td or Tdap) [facility] Start: 03-24-2024 DTaP/Tdap/Td Vaccines (4 - Td or Tdap) DTaP/Tdap/Td Vaccines (4 - Td or Tdap) [facility] Start: 03-24-2024 Urine microalbumin profile [facility] Start: 03-19-2024 End: 03-19-2024 ambulatory [facility] Comment on above: [employer]virtual Start: 02-01-2024 Annual PCP Team Chronic Disease Visit Annual PCP Team Chronic Disease Visit [facility] Start: 12-10-2023 ANNUAL PCP TEAM CHRONIC DISEASE VISIT ANNUAL PCP TEAM CHRONIC DISEASE VISIT [facility] Start: 12-10-2023 Covid-19 Vaccine () Covid-19 Vaccine () [facility] Start: 12-10-2023 Influenza vaccination Influenza Vaccine (#1) [facility] Start: 11-10-2023 End: 11-10-2023 Patient encounter procedure 11/10/2023 9:00 AM EDT Office Visit [facility] [place] [address] [place] [address] Florian Gonzalez MD [address] [facility] [place] [address] 6 month follow up Internal [facility] Comment on above: 6 month follow up Start: 11-09-2023 ANNUAL PCP TEAM CHRONIC DISEASE VISIT ANNUAL PCP TEAM CHRONIC DISEASE VISIT [facility] Start: 10-31-2023 End: 10-31-2023 Patient encounter procedure Psychiatry Comment on above: 3 Month Follow-Up Start: 09-18-2023 End: 09-18-2023 Patient encounter procedure 09/18/2023 8:30 AM EDT Office Visit [facility], [facility] [id number] [place] [address] [place] [id number] [address] [place] [address] 37REG VISIT [facility], [facility] Comment on above: 37REG VISIT Start: 06-14-2023 ANNUAL PCP TEAM CHRONIC DISEASE VISIT ANNUAL PCP TEAM CHRONIC DISEASE VISIT [facility] Start: 05-15-2023 End: 05-15-2024 MR Cervical spine WO contrast MR cervical spine wo contrast Imaging Routine Spondylolisthesis of cervical region Cervical spondylosis Expected: 05/15/2023, Expires: 05/15/2024 [facility] Work Phone: Comment on above: Expected: 05/15/2023, Expires: 5 Start: 05-11-2023 End: 07-11-2023 CBC panel - Blood by Automated count CBC Lab Routine Hyperlipidemia, unspecified hyperlipidemia type Expected: 05/11/2023, Expires: 07/11/2023 [facility] Work Phone: Comment on above: Expected: 05/11/2023, Expires: 4 Start: 05-11-2023 End: 07-11-2023 Comprehensive metabolic 2000 panel - Serum or Plasma COMP METABOLIC PANEL Lab Routine Hyperlipidemia, unspecified hyperlipidemia type Expected: 05/11/2023, Expires: 07/11/2023 [facility] Work Phone: Comment on above: Expected: 05/11/2023, Expires: 4 Start: 05-11-2023 End: 07-11-2023 Hemoglobin A1c in Blood HGB A1C Lab Routine Impaired fasting glucose Expected: 05/11/2023, Expires: 07/11/2023 [facility] Work Phone: Comment on above: Expected: 05/11/2023, Expires: Start: 05-11-2023 End: 07-11-2023 Lipid 1996 panel - Serum or Plasma LIPID PANEL BASIC Lab Routine Hyperlipidemia, unspecified hyperlipidemia type Expected: 05/11/2023, Expires: 07/11/2023 [facility] Work Phone: Comment on above: Expected: 05/11/2023, Expires: Start: 05-09-2023 ANNUAL PCP TEAM CHRONIC DISEASE VISIT ANNUAL PCP TEAM CHRONIC DISEASE VISIT [facility] Start: 04-20-2023 Colonoscopy COLONOSCOPY [facility] Start: 04-20-2023 COLORECTAL CANCER SCREENING COLORECTAL CANCER SCREENING [facility] Start: 03-10-2023 ANNUAL PCP TEAM CHRONIC DISEASE VISIT ANNUAL PCP TEAM CHRONIC DISEASE VISIT [facility] Start: 02-23-2023 End: 05-25-2023 DIGOXIN/LANOXIN DIGOXIN/LANOXIN Lab Routine Atrial fibrillation with RVR (HCC) 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) Atrial fibrillation, unspecified type (HCC) Expected: 02/23/2023, Expires: 05/25/2023 [email or web address] Work Phone: Comment on above: Expected: 02/23/2023, Expires: Start: 02-23-2023 End: 05-25-2023 Natriuretic peptide.B prohormone N-Terminal [Mass/volume] in Serum or Plasma NT PRO BNP Lab Routine Atrial fibrillation with RVR (HCC) 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) Atrial fibrillation, unspecified type (HCC) Expected: 02/23/2023, Expires: 05/25/2023 [email or web address] Work Phone: Comment on above: Expected: 02/23/2023, Expires: Start: 01-31-2023 ANNUAL PCP TEAM CHRONIC DISEASE VISIT ANNUAL PCP TEAM CHRONIC DISEASE VISIT [facility] Start: 12-09-2022 Influenza vaccination [facility] Start: 10-27-2022 End: 10-27-2022 Patient encounter procedure [facility] Start: 10-12-2022 End: 10-12-2022 ambulatory 10/12/2022 3:30 PM EDT Evaluation [facility] at [address] [place] [address] Rosa Jameson OT [facility] Start: 10-01-2022 ANNUAL PCP TEAM CHRONIC DISEASE VISIT ANNUAL PCP TEAM CHRONIC DISEASE VISIT [facility] Start: 09-30-2022 End: 09-30-2022 Follow-up encounter 09/30/2022 12:00 PM EDT Follow-Up [facility] at [address] [place] [address] Mohinder Rodriguez OT [facility] at [facility] Start: 09-28-2022 End: 09-28-2022 Follow-up encounter 09/28/2022 10:30 AM EDT Follow-Up [facility] [address] [place] [id number] Ana Tran OTA [facility] Start: 09-21-2022 End: 09-21-2022 Follow-up encounter [facility] Start: 09-14-2022 End: 09-14-2022 Follow-up encounter 09/14/2022 Follow-Up Occupational Therapy Rosa Jameson OT [facility] Start: 09-07-2022 End: 09-07-2022 ambulatory 09/07/2022 Evaluation Occupational Therapy Rosa Jameson OT [facility] Start: 08-31-2022 End: 08-31-2022 Follow-up encounter 08/31/2022 Follow-Up Occupational Therapy Rosa Jameson OT [facility] at [facility] Start: 08-24-2022 End: 08-24-2022 Follow-up encounter 08/24/2022 Follow-Up Occupational Therapy Rosa Jameson OT [facility] Start: 08-17-2022 End: 08-17-2022 Follow-up encounter [facility] Start: 08-13-2022 ANNUAL PCP TEAM CHRONIC DISEASE VISIT ANNUAL PCP TEAM CHRONIC DISEASE VISIT [facility] Start: 08-11-2022 End: 08-11-2022 Patient encounter procedure [facility] Start: 08-10-2022 End: 08-10-2022 Follow-up encounter 08/10/2022 Follow-Up Occupational Therapy Rosa Jameson OT [facility] Start: 08-03-2022 End: 08-03-2022 Follow-up encounter [facility] Start: 08-02-2022 End: 08-03-2023 XR Hand - left 3 Views XR hand 3+ views left Imaging Routine Left hand pain Expected: 08/02/2022, Expires: 08/03/2023 [facility] Work Phone: Comment on above: Expected: 08/02/2022, Expires: Start: 07-27-2022 End: 07-27-2022 Follow-up encounter [facility] Start: 07-20-2022 End: 07-20-2022 Follow-up encounter [facility] Start: 07-11-2022 End: 07-11-2022 ambulatory 07/11/2022 Evaluation Occupational Therapy Berenice Hanks PA-C [address] [facility] [address] [place] [address] Rosa Jameson OT [facility] Start: 07-11-2022 End: 07-11-2022 Patient encounter procedure 07/11/2022 Office Visit Orthopedic Surgery Berenice Hanks PA-C [address] [facility] [address] [place], [place] [address] [facility] Start: 07-01-2022 End: 07-01-2022 Admission to same day surgery center 07/01/2022 Surgery Procedural Toya Smith MD [address] [facility] [address] [place], [place] [address] Left thumb carpometacarpal arthroplasty with partial excision trapezoid [07405 (CPT )] [facility] MAIN OR Comment on above: Left thumb carpometacarpal arthroplasty with partial excision trapezoid [57157 (CPT )] Start: 07-01-2022 End: 07-01-2022 Arthrp interpos intercarpal/metacarpal joints ARTHROPLASTY INTERPOSITION INTERCARPAL OR CARPOMETACARPAL JOINTS Primary osteoarthritis, left wrist 07/01/2022 12:30 PM EDT [facility] Operating Room Start: 07-01-2022 End: 07-01-2022 Arthrp interpos intercarpal/metacarpal joints ARTHROPLASTY INTERPOSITION INTERCARPAL OR CARPOMETACARPAL JOINTS Primary osteoarthritis, left wrist 07/01/2022 10:56 AM EDT [facility] Operating Room Start: 07-01-2022 Subsequent hospital visit by physician 07/01/2022 Hospital Encounter Procedural Toya Smith MD [address] [facility] [address] [place] [address] [facility] MAIN OR Start: 06-24-2022 End: 06-24-2022 Admission to establishment 06/24/2022 Pre-Admission Testing Pre-Admission Testing SB Pre-Admit Testing Start: 05-18-2022 PROSTATE CANCER SCREENING DISCUSSION PROSTATE CANCER SCREENING DISCUSSION [facility] Start: 05-10-2022 End: 07-10-2022 25-hydroxyvitamin D3 [Mass/volume] in Serum or Plasma VITAMIN D 25 HYDROXY Lab Routine Vitamin D deficiency Expected: 05/10/2022, Expires: 07/10/2022 [facility] Work Phone: Comment on above: Expected: 05/10/2022, Expires: 3 Start: 05-10-2022 End: 07-10-2022 CBC panel - Blood by Automated count CBC Lab Routine Atrial fibrillation with RVR (HCC) Expected: 05/10/2022, Expires: 07/10/2022 [facility] Work Phone: Comment on above: Expected: 05/10/2022, Expires: 3 Start: 05-10-2022 End: 07-10-2022 Comprehensive metabolic 2000 panel - Serum or Plasma COMP METABOLIC PANEL Lab Routine Hyperlipidemia, unspecified hyperlipidemia type Expected: 05/10/2022, Expires: 07/10/2022 [facility] Work Phone: Comment on above: Expected: 05/10/2022, Expires: 3 Start: 05-10-2022 End: 07-10-2022 Lipid 1996 panel - Serum or Plasma LIPID PANEL BASIC Lab Routine Hyperlipidemia, unspecified hyperlipidemia type Expected: 05/10/2022, Expires: 07/10/2022 [facility] Work Phone: Comment on above: Expected: 05/10/2022, Expires: 3 Start: 05-05-2022 ANNUAL PCP TEAM CHRONIC DISEASE VISIT ANNUAL PCP TEAM CHRONIC DISEASE VISIT [facility] Start: 05-04-2022 End: 05-04-2022 Patient encounter procedure 05/04/2022 Office Visit Sports Medicine Phil Lobato MD [address] [facility] [address] [place], [place] [id number] [facility] [place] Start: 04-28-2022 COVID-19 Vaccine (5 - Pfizer series) COVID-19 Vaccine (5 - Pfizer series) [facility] Start: 04-28-2022 End: 04-28-2022 Patient encounter procedure 04/28/2022 Office Visit Orthopedic Surgery Toya Smith MD [address] [facility] [address] [place], [place] [id number] [facility] [place] Start: 04-26-2022 End: 04-26-2023 XR Wrist - left 3 Views XR wrist 3+ views left Imaging Routine Left wrist pain Expected: 04/26/2022, Expires: 04/26/2023 [facility] Work Phone: Comment on above: Expected: 04/26/2022, Expires: Start: 04-10-2022 ADVANCE DIRECTIVE DISCUSSION ADVANCE DIRECTIVE DISCUSSION [facility] Start: 03-05-2022 End: 05-05-2022 DIGOXIN/LANOXIN DIGOXIN/LANOXIN Lab Routine Atrial fibrillation with RVR (HCC) Hyperlipidemia, unspecified hyperlipidemia type Syncope, unspecified syncope type Orthostatic hypotension Expected: 03/05/2022 (Approximate), Expires: 05/05/2022 [facility] Work Phone: Comment on above: Expected: 03/05/2022 (Approximate), Expi res: 05/05/2022 Start: 12-09-2021 Influenza vaccination INFLUENZA (#1) [facility] Start: 10-07-2021 End: 12-07-2021 Natriuretic peptide.B prohormone N-Terminal [Mass/volume] in Serum or Plasma NT PRO BNP Lab Routine Exertional dyspnea Expected: 10/07/2021, Expires: 12/07/2021 [facility] Work Phone: Comment on above: Expected: 10/07/2021, Expires: 2 Start: 10-05-2021 End: 12-05-2021 DIGOXIN/LANOXIN DIGOXIN/LANOXIN Lab Routine Encounter for monitoring digoxin therapy Expected: 10/05/2021, Expires: 12/05/2021 [facility] Work Phone: Comment on above: Expected: 10/05/2021, Expires: 2 Start: 07-27-2021 End: 09-26-2021 Magnesium [Mass/volume] in Serum or Plasma MAGNESIUM BLD Lab Routine Medication management Expected: 07/27/2021, Expires: 09/26/2021 [facility] Work Phone: Comment on above: Expected: 07/27/2021, Expires: 2 Start: 07-27-2021 End: 09-26-2021 SCHEDULE LAB TESTING SCHEDULE LAB TESTING Lab Routine Expected: 07/27/2021, Expires: 09/26/2021 [facility] Work Phone: Comment on above: Expected: 07/27/2021, Expires: 2 Start: 04-10-2021 ADVANCE DIRECTIVE DISCUSSION ADVANCE DIRECTIVE DISCUSSION [facility] Start: 03-10-2020 Screening for malignant neoplasm of colon [facility] Start: 1997 COLOGUARD (FIT-DNA) COLOGUARD (FIT-DNA) [facility] Start: [address] COLONOGRAPHY [facility] Start: 1997 FECAL OCCULT BLOOD FECAL OCCULT BLOOD [facility] Start: 1997 Screening for malignant neoplasm of colon [facility] Start: 1997 SIGMOIDOSCOPY SIGMOIDOSCOPY [facility] Start: 11-03-1994 Hepatitis B Vaccines (3 of 3 - 19+ 3-dose series) Hepatitis B Vaccines (3 of 3 - 19+ 3-dose series) [facility] Start: 11-03-1994 Hepatitis B Vaccines (3 of 3 - 3-dose series) Hepatitis B Vaccines (3 of 3 - 3-dose series) [facility] Start: 1982 Zoledronic acid therapy ALPHA-1 ANTITRYPSIN DEFICIENCY SCREENING [facility] Start: 1970 Diabetes mellitus screening Diabetes Screening [facility] Start: 1970 Hepatitis C screening Hepatitis C Screening [facility] Start: 1964 Depresssion Monitoring Depresssion Monitoring [facility] Start: 1958 PNEUMOCOCCAL: 65+ (1 - PCV) PNEUMOCOCCAL: 65+ (1 - PCV) [facility] Start: 1952 Creatinine measurement Creatinine Level [facility] Start: 1952 Echocardiography Echocardiogram [facility] Start: 1952 Lipid panel Lipid Panel [facility] Start: 1952 Medicare Advantage Annual Wellness Visit (AWV) Medicare Advantage Annual Wellness Visit (AWV) [facility] Start: 1952 Potassium measurement Potassium Level [facility] Start: 1952 Screening for malignant neoplasm of colon [facility] End: 11-08-2025 CT Head WO contrast CT BRAIN WO IVCON Radiology STAT Injury of head, initial encounter Fall, initial encounter emt intermediate (current) use of anticoagulants 1 Occurrences starting 10/09/2024 until 11/08/2025 [facility] Work Phone: Comment on above: 1 Occurrences starting 10/09/2024 until 11/08/2025 Doppler echocard pul se wave w/spectral display DOPPLER ECHO HEART,COMPLETE Cardiology Routine Atrial fibrillation with RVR (HCC) Chronic combined systolic and diastolic congestive heart failure (HCC) Atrial fibrillation, unspecified type (HCC) Ordered: 04/26/2022 [facility] Work Phone: Comment on above: Ordered: 04/26/2022 Doppler echocard pul se wave w/spectral display DOPPLER ECHO HEART,COMPLETE Cardiology Routine Atrial fibrillation with RVR (HCC) Syncope, unspecified syncope type Ordered: 05/02/2022 [facility] Work Phone: Comment on above: Ordered: 05/02/2022 ECG B/O W INTERP (WA D OFFICE) ECG B/O W INTERP (MED OFFICE) ECG Routine Atrial fibrillation with RVR (HCC) Ordered: 02/02/2022 [facility] Work Phone: Comment on above: Ordered: 02/02/2022 ECG B/O W INTERP (ME D OFFICE) ECG B/O W INTERP (MED OFFICE) ECG Routine Atrial fibrillation with RVR (HCC) Ordered: 08/15/2022 [facility] Work Phone: Comment on above: Ordered: 08/15/2022 ECG B/O W INTERP (ME D OFFICE) ECG B/O W INTERP (MED OFFICE) ECG Routine Atrial fibrillation with RVR (HCC) Ordered: 02/23/2023 [facility] Work Phone: Comment on above: Ordered: 02/23/2023 ECG B/O W INTERP (ME D OFFICE) ECG B/O W INTERP (MED OFFICE) ECG Routine Atrial fibrillation with RVR (HCC) Syncope, unspecified syncope type 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) Ordered: 06/06/2023 [facility] Work Phone: Comment on above: Ordered: 06/06/2023 ECG B/O W INTERP (ME D OFFICE) ECG B/O W INTERP (MED OFFICE) ECG Routine Atrial fibrillation with RVR (HCC) Syncope, unspecified syncope type Orthostatic hypotension Hyperlipidemia, unspecified hyperlipidemia type Ordered: 09/18/2023 [facility] Work Phone: Comment on above: Ordered: 09/18/2023 Echo tthrc r-t 2d w/wom-mode compl spec&colr d TTE W/DOPPLER, COMPLETE Procedures Routine Atrial fibrillation with RVR (HCC) Hyperlipidemia, unspecified hyperlipidemia type Syncope, unspecified syncope type Orthostatic hypotension Ordered: 02/02/2022 [facility] Work Phone: Comment on above: Ordered: 02/02/2022 Echo tthrc r-t 2d w/wom-mode compl spec&colr d TTE W/DOPPLER, COMPLETE Procedures Routine Atrial fibrillation with RVR (HCC) 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) Atrial fibrillation, unspecified type (HCC) Ordered: 02/23/2023 [facility] Work Phone: Comment on above: Ordered: 02/23/2023 Patient Education [facility] Work Phone: Patient referral [facility] Work Phone: POST VOID RESIDUAL POST VOID RES IDUAL Procedures Routine Balanitis Urge incontinence of urine Ordered: 11/18/2022 [facility] Work Phone: Comment on above: Ordered: 11/18/2022 POST VOID RESIDUAL POST VOID RES IDUAL Procedures Routine Urge incontinence of urine Screening for genitourinary condition Ordered: 10/22/2024 [facility] Work Phone: Comment on above: Ordered: 10/22/2024 End: 09-14-2023 Radiologic exam chest 2 views XR CHEST 2V FRONTAL/LAT Radiology Routine Other chronic pulmonary embolism without acute cor pulmonale (HCC) 1 Occurrences starting 08/15/2022 until 09/14/2023 [facility] Work Phone: Comment on above: 1 Occurrences starting 08/15/2022 until 09/14/2023 Removal impacted cer umen irrigation/lvg unilat AMBULATORY EAR LAVAGE/IRRIGATION Procedures Routine Impacted cerumen, left ear Ordered: 06/13/2022 [facility] Work Phone: Comment on above: Ordered: 06/13/2022 End: 02-01-2024 Screening colonoscopy COLONOSCOPY SCREENING Endoscopy Routine Special screening for malignant neoplasms, colon 1 Occurrences starting 01/31/2023 until 02/01/2024 [facility] Work Phone: Comment on above: 1 Occurrences starting 01/31/2023 until 02/01/2024 XR Chest PA and Lateral XR CHEST 2V FRONTAL/LAT Radiology Routine Other chronic pulmonary embolism without acute cor pulmonale (HCC) 09/13/2023 3:47 PM EDT [facility] Work Phone: End: 08-11-2022 XR Hand - left 3 Views [facility] Work Phone: Comment on above: Once for 1 Occurrences starting 08/12/19 23 until 08/11/2022 End: 01-08-2024 XR TIBIA FIBULA 2V AP/LAT RIGHT XR TIBIA FIBULA 2V AP/LAT RIGHT Radiology Routine Tibial pain 1 Occurrences starting 12/09/2022 until 01/08/2024 [facility] Work Phone: Comment on above: 1 Occurrences starting 12/09/2022 until 01/08/2024 XR TIBIA FIBULA 2V A P/LAT RIGHT XR TIBIA FIBULA 2V AP/LAT RIGHT Radiology Routine Tibial pain 12/09/2022 3:04 PM EDT [facility] Work Phone: End: 04-28-2022 XR Wrist - left 3 Views [facility] Work Phone: Comment on above: Once for 1 Occurrences starting 04/28/19 until 04/28/2022 [facility] Immunizations Immunization Date Immunization Notes Care Provider Sarbjit [facility] 07-22-2024 tetanus toxoid, redu rio diphtheria toxoid, and acellular pertussis vaccine, adsorbed Dr. Florian Gonzalez MD Work Phone: [facility] 12-06-2023 influenza virus vacc ine, unspecified formulation Jenn Vidales RN Work Phone: [facility] 12-24-2022 influenza virus vacc ine, unspecified formulation Leonides Baker MD Work Phone: [facility] 12-27-2021 COVID-19 booster vaccine, age 12+ yr, bivalent ([facility]) Quincy Alonzo APRN.CNP Work Phone: [facility] 12-27-2021 Influenza, High-dose Seasonal, Quadrivalent, Preservative Free Toya Smith MD Work Phone: [facility] 12-27-2021 influenza virus vacc ine, unspecified formulation Rosa Jameson OT [facility] 08-04-2021 Covid-19, Pfizer Gra y Top, Do Not Dilute, (Age 12 Y+), Im, L Toya Smith MD Work Phone: [facility] 02-17-2021 Covid (Moderna) [facility] 12-16-2020 influenza (aIIV4) vaccine, age 65+ yr, quadrivalent, PF (FLUAD QUADRIVALENT) Florian Gonzalez MD Work Phone: [facility] Work Phone: 12-16-2020 Influenza, high dose seasonal Dr. Florian Gonzalez MD Work Phone: [facility] 12-16-2020 influenza, high dose seasonal, preservative-free [facility] Work Phone: 07-08-2020 Covid (Pfizer) [facility] 06-16-2020 Covid (Pfizer) [facility] 12-19-2019 influenza, injectabl e, quadrivalent, preservative free Florian Gonzalez MD Work Phone: [facility] Work Phone: 12-19-2019 influenza, seasonal, injectable [facility] Work Phone: 11-05-2019 zoster vaccine recombinant [facility] Work Phone: 06-14-2019 pneumococcal polysaccharide vaccine, 23 valent [facility] 05-28-2019 zoster vaccine recombinant [facility] Work Phone: 02-07-2019 influenza, injectabl e, quadrivalent, preservative free Florian Gonzalez MD Work Phone: [facility] Work Phone: 02-07-2019 influenza, seasonal, injectable [facility] Work Phone: 03-19-2018 pneumococcal conjuga te vaccine, 13 valent [facility] Work Phone: 12-21-2017 Influenza, high dose seasonal Dr. Florian Gonzalez MD Work Phone: [facility] 12-21-2017 influenza, high dose seasonal, preservative-free [facility] Work Phone: 02-13-2017 influenza, injectabl e, quadrivalent, preservative free Dr. Florian Gonzalez MD Work Phone: [facility] 02-13-2017 influenza, seasonal, injectable [facility] Work Phone: 02-13-2017 influenza, seasonal, injectable, preservative free Florian Gonzalez MD Work Phone: [facility] Work Phone: 02-01-2016 influenza, injectabl e, quadrivalent, preservative free Florian Gonzalez MD Work Phone: [facility] Work Phone: 02-01-2016 influenza, seasonal, injectable [facility] Work Phone: 01-08-2015 influenza, injectabl e, quadrivalent, contains preservative Florian Gonzalez MD Work Phone: [facility] 01-08-2015 influenza, injectabl e, quadrivalent, preservative free Dr. Florian Gonzalez MD Work Phone: [facility] 01-08-2015 influenza, seasonal, injectable [facility] Work Phone: 01-06-2015 influenza, seasonal, injectable Toya Smith MD Work Phone: [facility] 03-24-2014 tetanus toxoid, redu rio diphtheria toxoid, and acellular pertussis vaccine, adsorbed [facility] 01-01-2014 influenza, injectabl e, quadrivalent, preservative free Dr. Florian Gonzalez MD Work Phone: [facility] 01-01-2014 influenza, seasonal, injectable [facility] Work Phone: 02-08-2013 zoster vaccine, live Florian Gonzalez MD Work Phone: [facility] 01-07-2013 influenza virus vacc ine, unspecified formulation Florian Gonzalez MD Work Phone: [facility] 01-11-2012 influenza, seasonal, injectable Toya Smith MD Work Phone: [facility] 12-22-2010 influenza, seasonal, injectable Toya Smith MD Work Phone: [facility] 05-24-2010 tetanus toxoid, redu rio diphtheria toxoid, and acellular pertussis vaccine, adsorbed Florian Gonzalez MD Work Phone: [facility] Work Phone: 01-28-2010 pneumococcal polysaccharide vaccine, 23 valent Florian Gonzalez MD Work Phone: [facility] 01-25-2010 influenza virus vacc ine, unspecified formulation Florian Gonzalez MD Work Phone: [facility] 01-30-2009 novel influenza-H1N1 -09, preservative-free, injectable [facility] Work Phone: 12-15-2008 influenza, seasonal, injectable Toya Smith MD Work Phone: [facility] 12-15-2008 novel influenza-H1N1 -09, all formulations Florian Gonzalez MD Work Phone: [facility] Work Phone: 01-10-2008 influenza, seasonal, injectable Toya Smith MD Work Phone: [facility] 10-06-2003 tetanus and diphther ia toxoids, adsorbed, preservative free, for adult use (2 Lf of tetanus toxoid and 2 Lf of diphtheria toxoid) Florian Gonzalez MD Work Phone: [facility] Work Phone: 09-08-1994 hepatitis B vaccine, adult dosage Florian Gonzalez MD Work Phone: [facility] Work Phone: 04-12-1994 hepatitis B vaccine, adult dosage Florian Gonzalez MD Work Phone: [facility] Work Phone: Payers Date Payer Category Payer Medicare [id number] 2024 Self-pay [id number] 2024 Medicare (Managed Care) [id number]. [id number] 2022 Medicaid AETNA MEDICARE ADVANTAGE [id number] 2022 Medicare [id number] 2022 [facility]ly [facility] [id number] 2021 Medicare UHC AAR MEDICAR E [facility] AAR MEDICARE O [id number] 2021-Present [phone] [address] [address] [place] [address] O [id number] 2018 Private Health Insurance [id number] 2017 Medicare [id number] 2017 Medicare [id number] 2004 Government (not [facility] care or Medicaid) [facility] Address: [address] [facility], [address] [address] [id number] 2004 Unknown [facility]IN [facility] [id number] 2004-Present [phone] [place] [address] [facility] [id number] 2004 Unknown [facility]IN [facility] [id number] 2004-Present [phone] [place] [address] [facility] [id number] 2004 Unknown [id number] 2004 Worker's Compensation ERIN [facility] [id number] 2004 Unknown [id number] 1950 Unknown [id number] 1950 Unknown [id number] 1950 Unknown [id number] [id number] 1950 Unknown [id number] [id number] 1950 Unknown [id number] 1950 Unknown [id number] [id number] Unknown [id number] Unknown [id number] Unknown [id number] Social History Date Type Detail Facility Start: 06-30-2021 End: 03-13-2022 Tobacco smoking status ARIS Unknown if ever smoked [employer]ight Phone: Start: 07-21-2020 None [facility] Start: 07-21-2020 Alone [facility] Start: 1950 Sex Assigned At Male [facility] Start: 03-10-2022 End: 07-22-2024 Tobacco smoking status NHIS Never smoked tobacco [facility] Start: 05-05-2021 End: 10-09-2024 Alcohol intake Current non-drinker of alcohol (finding) [facility] Start: 05-05-2021 End: 03-08-2022 History SDOH Alcohol Frequency 1 [facility] Start: 05-02-2021 History SDOH Alcohol Std Drinks 98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 Verified name and date of . CC Post Void Residual HPI: Orion Dumont is a 73 year old male. The patient is here now for an appointment with BEATRIS Jerome MT, PA-COV. Procedure: Explained procedure to patient and verbalizes understanding. Performed a PVR. Patient urinated and instructed to empty bladder as much as possible just prior to having PVR done using bladder ultrasound scanner. Results of scan: 0 mL The patient tolerated the procedure well. Plan: Appointment with Antonio. documented in this encounter [facility] 10-22-2024 Note HNO ID: [id number] Author: ADIN PLEITEZ LPN Service: ? Author Type: LICENSED NURSE Type: Progress Notes Filed: 11/11/2024 17:17 Note Text: Verified name and date of . CC Post Void Residual HPI: Orion Dumont is a 73 year old male. The patient is here now for an appointment with BEATRIS Jerome MT, PA-COV. Procedure: Explained procedure to patient and verbalizes understanding. Performed a PVR. Patient urinated and instructed to empty bladder as much as possible just prior to having PVR done using bladder ultrasound scanner. Results of scan: 0 mL The patient tolerated the procedure well. Plan: Appointment with Antonio. [facility] 10-15-2024 Note HNO ID: [id number] Author: JENN VIDALES RN Service: ? Author Type: Registered Nurse Type: Progress Notes Filed: 10/15/2024 13:47 Note Text: [facility] Care Path Telephonic Outreach Provider Action/FYI Declines to get CT scan that was ordered due to cost. Reports he feels better but still having pain. Suggested he should get CT scan to make sure he has no problems. Offered to have social media assistant call for possible assistance. He declines social media assistant consult for financial assistance at this time. Reinforced to call office or healthy at home for a referral if he changes his mind. No questions about [facility] topics. Aware he is graduating from [facility] today. Patient identified by Name and Date of . Discussed care with patient. Program Details Chronic Disease Management Status: Enrolled Effective Dates: 07/18/2024 - present Responsible Staff: Jenn Vidales RN Support and Services: Hypertension, Chronic Obstructive Pulmonary Disease (COPD), Congestive Heart Failure (CHF) Program Goals Targets Target Due Completed Completed By Outcome General education provided (managing stress, where to go/how to contact, etc.) 08/19/2024 10/15/2024 Jenn Vidales RN Complete Annual Medicare Wellness visit addressed 10/17/2024 10/15/2024 Jenn Vidales RN Complete/Scheduled Biannual Cardiology visit addressed 10/17/2024 10/15/2024 Jenn Vidales RN Complete/Scheduled Reinforced need to call office to get new Cardiology appointment Biannual PCP visit addressed 10/17/2024 10/15/2024 Jenn Vidales RN Complete/Scheduled Comprehensive COPD education provided 10/17/2024 10/15/2024 Jenn Vidales RN Complete Patient-stated goal addressed (add comment) 10/17/2024 10/15/2024 Jenn Vidales RN Complete Get back to working out Annual Pulmonology visit addressed 10/17/2024 09/26/2024 Jenn Vidales RN Complete/Scheduled Comprehensive CHF education provided 10/17/2024 08/15/2024 Jenn Vidales RN Complete Comprehensive HTN education provided 10/17/2024 07/31/2024 Jenn Vidales RN Complete HTN lab care gaps addressed 10/17/2024 07/31/2024 Jenn Vidales RN Complete/Scheduled Intake assessments completed: ADLs, Fall Risk, SDOH 08/19/2024 07/18/2024 Jenn Vidales RN Complete Assessments No documentation this encounter Interventions The following were addressed during this visit: - Biannual PCP visit addressed - General education provided (managing stress, where to go/how to contact, etc.) - Annual Medicare Wellness visit addressed - Patient-stated goal addressed (add comment) - Biannual Cardiology visit addressed - Comprehensive COPD education provided - Bi-Weekly Outreach (Recurring) Jenn Vidales RN October 15, 2024 1:30 PM [facility] 10-15-2024 History of Presen t illness Narrative Images from the original note were not included. [facility] Care Path Telephonic Outreach Provider Action/FYI Declines to get CT scan that was ordered due to cost. Reports he feels better but still having pain. Suggested he should get CT scan to make sure he has no problems. Offered to have social media assistant call for possible assistance. He declines social media assistant consult for financial assistance at this time. Reinforced to call office or healthy at home for a referral if he changes his mind. No questions about [facility] topics. Aware he is graduating from [facility] today. Patient identified by Name and Date of . Discussed care with patient. Program Details Chronic Disease Management Status: Enrolled Effective Dates: 07/18/2024 - present Responsible Staff: Jenn Vidales RN Support and Services: Hypertension, Chronic Obstructive Pulmonary Disease (COPD), Congestive Heart Failure (CHF) Program Goals Targets Target Due Completed Completed By Outcome General education provided (managing stress, where to go/how to contact, etc.) 08/19/2024 10/15/2024 Jenn Vidales RN Complete Annual Medicare Wellness visit addressed 10/17/2024 10/15/2024 Jenn Vidales RN Complete/Scheduled Biannual Cardiology visit addressed 10/17/2024 10/15/2024 Jenn Vidales RN Complete/Scheduled Reinforced need to call office to get new Cardiology appointment Biannual PCP visit addressed 10/17/2024 10/15/2024 Jenn Vidales RN Complete/Scheduled Comprehensive COPD education provided 10/17/2024 10/15/2024 Jenn iVdales RN Complete Patient-stated goal addressed (add comment) 10/17/2024 10/15/2024 Jenn Vidales RN Complete Get back to working out Annual Pulmonology visit addressed 10/17/2024 09/26/2024 Jenn Vidales RN Complete/Scheduled Comprehensive CHF education provided 10/17/2024 08/15/2024 Jenn Vidales RN Complete Comprehensive HTN education provided 10/17/2024 07/31/2024 Jenn Vidales RN Complete HTN lab care gaps addressed 10/17/2024 07/31/2024 Jenn Vidales RN Complete/Scheduled Intake assessments completed: ADLs, Fall Risk, SDOH 08/19/2024 07/18/2024 Jenn Vidales RN Complete Assessments No documentation this encounter Interventions The following were addressed during this visit: - Biannual PCP visit addressed - General education provided (managing stress, where to go/how to contact, etc.) - Annual Medicare Wellness visit addressed - Patient-stated goal addressed (add comment) - Biannual Cardiology visit addressed - Comprehensive COPD education provided - Bi-Weekly Outreach (Recurring) Jenn Vidales RN October 15, 2024 1:30 PM documented in this encounter [facility] 10-15-2024 Note Patient Outreach ([facility]) ORION DUMONT ([id number]) 1950 M Date Time Provider Department 10/15/24 JENN VIDALES [facility] [place] today, we recorded the following information about you: Jenn Vidales RN 10/15/2024 1:47 PM Signed [facility] Care Path Telephonic Outreach Provider Action/FYI Declines to get CT scan that was ordered due to cost. Reports he feels better but still having pain. Suggested he should get CT scan to make sure he has no problems. Offered to have social media assistant call for possible assistance. He declines social media assistant consult for financial assistance at this time. Reinforced to call office or healthy at home for a referral if he changes his mind. No questions about [facility] topics. Aware he is graduating from [facility] today. Patient identified by Name and Date of . Discussed care with patient. Program Details Chronic Disease Management Status: Enrolled Effective Dates: 07/18/2024 - present Responsible Staff: Jenn Vidales RN Support and Services: Hypertension, Chronic Obstructive Pulmonary Disease (COPD), Congestive Heart Failure (CHF) Program Goals Targets Target Due Completed Completed By Outcome General education provided (managing stress, where to go/how to contact, etc.) 08/19/2024 10/15/2024 Jenn Vidales RN Complete Annual Medicare Wellness visit addressed 10/17/2024 10/15/2024 Jenn Vidales RN Complete/Scheduled Biannual Cardiology visit addressed 10/17/2024 10/15/2024 Jenn Vidales RN Complete/Scheduled Reinforced need to call office to get new Cardiology appointment Biannual PCP visit addressed 10/17/2024 10/15/2024 Jenn Vidales RN Complete/Scheduled Comprehensive COPD education provided 10/17/2024 10/15/2024 Jenn Vidales RN Complete Patient-stated goal addressed (add comment) 10/17/2024 10/15/2024 Jenn Vidales RN Complete Get back to working out Annual Pulmonology visit addressed 10/17/2024 09/26/2024 Jenn Vidales RN Complete/Scheduled Comprehensive CHF education provided 10/17/2024 08/15/2024 Jenn Vidales RN Complete Comprehensive HTN education provided 10/17/2024 07/31/2024 Jenn Vidales RN Complete HTN lab care gaps addressed 10/17/2024 07/31/2024 Jenn Vidales RN Complete/Scheduled Intake assessments completed: ADLs, Fall Risk, SDOH 08/19/2024 07/18/2024 Jnen Vidales RN Complete Assessments No documentation this encounter Interventions The following were addressed during this visit: - Biannual PCP visit addressed - General education provided (managing stress, where to go/how to contact, etc.) - Annual Medicare Wellness visit addressed - Patient-stated goal addressed (add comment) - Biannual Cardiology visit addressed - Comprehensive COPD education provided - Bi-Weekly Outreach (Recurring) Jenn Vidales RN October 15, 2024 1:30 PM Allergies As of Date: 10/15/2024 Noted Allergy Reaction RIVAROXABAN 03/02/2013 2 - Rash SULFA (SULFONAMIDE ANTIBIOTICS) 03/18/2008 5 - Intolerance 4 - Hives Comments: Pt says that he has had silvadene cream in the past after cardioversions without side effects ADHESIVE TAPE (ROSINS) 10/08/2009 2 - Rash NIACIN 05/12/2023 14 - Other: See Comments Comments: Itching, head lam WOOL 11/25/2009 9 - Itching WOOL 03/09/2010 9 - Itching DICLOFENAC SODIUM 02/01/2016 2 - Rash Comments: Fixed drug eruption Date Reviewed: 10/09/2024 Reviewed by: Shea Etienne APRN.FACING GRINDER - Fully Assessed Prescriptions as of 10/15/2024 - apixaban (ELIQUIS) 5 mg tab(s) Take 1 tablet by mouth two times a day. - QUEtiapine (SEROQUEL) 50 mg tablet Take 1 tablet by mouth daily at bedtime. - sertraline (ZOLOFT) 100 mg tablet Take 2 tablets by mouth once daily. - busPIRone (BUSPAR) 15 mg tablet Take 1 tablet by mouth two times a day. - lamoTRIgine (LAMICTAL) 100 mg tablet Take 1 tablet by mouth once daily. - budesonide-formoterol (SYMBICORT) 160-4.5 mcg/actuation inhaler Inhale 2 puffs as instructed two times a day. - albuterol HFA (PROVENTIL HFA) 90 mcg/actuation inhaler Inhale 1-2 puffs as instructed four times a day as needed for wheezing/shortness of breath. - atorvastatin (LIPITOR) 20 mg tablet Take 1 tablet by mouth once daily. - bisoprolol (ZEBETA) 5 mg tablet Take 1 tablet by mouth once daily. - fludrocortisone (FLORINEF) 0.1 mg tablet Take 1 tablet by mouth once daily. - ciclopirox (LOPROX) 0.77 % cream Apply to affected area two times a day as needed. - pantoprazole DR (PROTONIX) 40 mg tablet Take 1 tablet by mouth daily before breakfast. Take on empty stomach, 1/2 hr before meal. - oxybutynin XL (DITROPAN XL) 5 mg 24 hr tablet Take 1 tablet by mouth once daily. - digoxin (LANOXIN) 250 mcg (0.25 mg) tablet take 1 tablet by mouth every day - cholecalciferol (VITAMIN D3) 50 mcg (2,000 unit) tablet Take 1 tablet by mouth daily with dinner. - calcium citrate-vitamin D3 (CITRACAL PLUS D) 315 mg-5 mcg (2 (more content not included)... [facility] 10-10-2024 Telephone encounter Note Patient evaluated in office, 10/09/2024 See Office notes. Teri Cummings LPN [facility] 10-10-2024 Miscellaneous Notes Patient evaluated in office, 10/09/2024 See Office notes. Teri Cummings LPN Patient scheduled with me today for a fall on Monday in which he hit his head and back. He is on a blood thinner and is at high risk for brain bleed, he should be evaluated in the ER Shea Etienne APRN.FACING GRINDER documented in this encounter [facility] 10-09-2024 History of Presen t illness Narrative Radiology Service Progress Note PATIENT NAME: Orion Dumont DATE OF SERVICE: October 09, 2024 TIME: 6:37 PM PATIENT IDENTITY VERIFICATION COMPLETED USING TWO (2) IDENTIFIERS: Name and Date of confirmed by patient verbally. FALL SCREENING: Has the patient had 2 falls in the last year or 1 fall with injury or currently using an Ambulatory Assistive Device (Walker, Cane, Wheelchair, Crutches, etc.)? No PATIENT GENDER DATA: Assigned male at PATIENT RELEVANT IMPLANT DATA REVIEWED: Yes PATIENT PRESENTS WITH AN IMPLANTABLE OR ATTACHED STAFF MECHANICAL ENGINEER: No RADIOLOGY DEPARTMENT: General X-ray: Exam(s) Completed: Spine X-Ray(s): Lumbar AP / LAT / L5-S1 Upper Extremity X-Ray(s): Shoulder, AP / TRUE AP bilateral Scapular Y PERIPHERAL IV DATA: Not applicable SIGNED BY: RT Elena(R) October 09, 2024 6:37 PM documented in this encounter [facility] 10-09-2024 Note HNO ID: [id number] Author: LOUIE WATSON RT(R) Service: ? Author Type: Apron Operator Type: Progress Notes Filed: 10/09/2024 18:37 Note Text: Radiology Service Progress Note PATIENT NAME: Orion Dumont DATE OF SERVICE: October 09, 2024 TIME: 6:37 PM PATIENT IDENTITY VERIFICATION COMPLETED USING TWO (2) IDENTIFIERS: Name and Date of confirmed by patient verbally. FALL SCREENING: Has the patient had 2 falls in the last year or 1 fall with injury or currently using an Ambulatory Assistive Device (Walker, Cane, Wheelchair, Crutches, etc.)? No PATIENT GENDER DATA: Assigned male at PATIENT RELEVANT IMPLANT DATA REVIEWED: Yes PATIENT PRESENTS WITH AN IMPLANTABLE OR ATTACHED STAFF MECHANICAL ENGINEER: No RADIOLOGY DEPARTMENT: General X-ray: Exam(s) Completed: Spine X-Ray(s): Lumbar AP / LAT / L5-S1 Upper Extremity X-Ray(s): Shoulder, AP / TRUE AP bilateral Scapular Y PERIPHERAL IV DATA: Not applicable SIGNED BY: RT Elena(R) October 09, 2024 6:37 PM [facility] 10-09-2024 History of Presen t illness Narrative Images from the original note were not included. CC: Patient presents with: Fall: X 5 days : lower back pain, bilateral shoulders HPI Recording using [employer] software for draft documentation of the visit was discussed with the patient/authorized sales and merchandising representative; all questions welcomed and answered. Patient/authorized sales and merchandising representative agreed to proceed Greg Dumont is a 73-year-old male, with a history of arthritis and on anticoagulation therapy, presenting for evaluation of head, back, and shoulder pain following a fall. Greg reports a fall that occurred on Monday night at approximately 1630 while assisting his sister, who was recently discharged from a [facility]. During the incident, his sister's knees began to quiver and shake, causing her to fall. Greg attempted to prevent her fall but ended up falling himself, landing on the ground with his sister on top of him. During the fall, he struck the back of his head against a wall, and his shoulder blades and back made contact with the ground and a nearby desk. He reports a small knot on the back of his head, which is now barely noticeable. He denies experiencing cephalalgia, vertigo, lightheadedness, blurred vision, diplopia, nausea, photophobia, phonophobia, confusion, or disorientation. He also denies any changes in balance or coordination since the fall. Greg reports pain in the lower back, specifically above the tailbone in the lower spine area, as well as pain in the shoulder blades, with the right shoulder being more painful than the left. He notes bruising on both shoulder blades. He denies paresthesia, bowel or bladder dysfunction, or loss of range of motion in the shoulders. The pain in the back and shoulders has been slowly improving but remains present, especially with certain movements. For pain management, he has been using Tylenol, Bengay, lidocaine patches, and Biofreeze. He reports that Biofreeze provided more relief than the other treatments. He also uses a donut cushion under his back while sleeping to alleviate discomfort. He denies any allergies to hydrocodone or other pain medications. 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 Currently chest pain free; However, there is a high chance of recurrence since treatment has been on hold. Giving him steroid might actually put him at more risk of re bleeding. NSAID'S not an option for now. Plan: Consider Colchicine. If patient is to be restarted on AC, Colchicine has DVT (deep venous thrombosis) ([facility]) 01/12/2010 S/P IVC filter, occurred post-op, on anticoagulation (for a fib) Eating disorder, unspecified 07/01/2009 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 Essential hypertension, benign Fatty liver 11/03/2009 by us Gall stones, common bile duct 12/07/2013 Generalized anxiety disorder 07/01/2009 GI bleed 06/29/2012 Hip joint replacement by other means 09/21/2012 Hyperlipidemia 08/25/2020 Impaired fasting glucose 05/05/2021 Impotence of organic origin Iron deficiency anemia 08/02/2012 emt intermediate current use of anticoagulant 02/09/2015 Major depressive disorder, recurrent episode, moderate ([facility]) 07/01/2009 Morbid obesity ([facility]) 04/21/2009 stated BMI 51.1 Ht: 75 Wt: 410 lbs MSSA (methicillin susceptible Staphylococcus aureus) infection 07/03/2012 Hx: MSSA infection of serosal fluids collection in L chest wall. S/P I/D on 06/19. On IV oxacillin till and then dc'ed on 06/23 with a 10 day course of Dicloxacillin. 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 Currently chest pain free; Talked with cardiology - said no need for treatment is patient is treatment free Plan: Continue to monitor Postsurgical dumping syndrome 08/30/2012 Pulmonary embolism ([facility]) 03/01/2010 Retinal detachment OD Syncope 11/02/2018 Torn rotator cuff Upper GI bleed 07/03/2012 Hx: UGIB presenting to OSH on 06/29 with Melanotic stool; 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 Plan: Monitor H&H Q8H, transfuse as necessary, keep Hb>8 Consult IR for further intervention Protonix gtt for now, will switch to protonix 40mg bid when Hb is stable after 48-72 salma UTI (lower urinary tract infection) Varicose veins 2010 Varicose veins of both legs with edema 2010 Vitamin D deficiency 08/02/2012 PAST SURGICAL HISTORY Procedure Laterality Date APPENDECTOMY HX ARTHRP ACETBLR/PROX FEM PROSTC AGRFT/ALGRFT 1993 left BACK SURGERY HX CARDIOVERSION CHOLECYSTECTOMY 11/18/2013 COLONOSCOPY 02/22/2023 repeat 10 years COLONOSCOPY GEN ANES 04/20/2020 CYSTO BLADDER W/URETERAL CATHETERIZATION 01/30/2010 CYSTOSCOPY, RETROPYELOGRAM performed by RADHA OLIVAREZ at OR CYSTO W/INSERT URETERAL STENT 01/30/2010 CYSTOSCOPY, INSERTION STENT URETERAL J performed by RADHA OLIVAREZ at OR CYSTOURETHROSCOPY 06/16/2017 Cystoscopy DISKECTOMY, LUMBAR, SINGLE SP 1981 L4-5 EGD 04/20/2020 GASTRIC BYPASS HX 2008 w/ complications. JOINT REPLACEMENT HX Bilateral Hips NEPHROLITHOTOMY REMOVAL STAGE 1 05/02/2012 PAST SURGICAL HISTORY OF 1967 left hip pin PAST SURGICAL HISTORY OF 04/23/2012 heart surgery PAST SURGICAL HISTORY OF 06/04/2012 stitches for broken blood vesel in rectum REDUCE BOWEL OBSTRUCTION 06/24/2010 Performed by RAN REPAIR RETINAL DETACHMENT SCLERAL BUCKLING 10/2009 od Scleral Buckle REPAIR RETINAL DETACHMENT SCLERAL BUCKLING 08/05/2013 SB (Scleral Buckle)/ cyro os REVISE MEDIAN N/CARPAL TUNNEL SURG Left 10/2020 SESAMOIDECTOMY, THUMB/FINGER Left 06/30/2022 Left Thumb arthroplasty VITRECTOMY MECHANICAL PARS PLANA 09/03/2013 PPV / EL / gas OS ALLERGIES Rivaroxaban, Sulfa (Sulfonamide Antibiotics), Adhesive Tape (Rosins), Niacin, Wool, Wool, and Diclofenac Sodium MEDICATIONS apixaban (ELIQUIS) 5 mg tab(s) Take 1 tablet by mouth two times a day. QUEtiapine (SEROQUEL) 50 mg tablet Take 1 tablet by mouth daily at bedtime. sertraline (ZOLOFT) 100 mg tablet Take 2 tablets by mouth once daily. busPIRone (BUSPAR) 15 mg tablet Take 1 tablet by mouth two times a day. lamoTRIgine (LAMICTAL) 100 mg tablet Take 1 tablet by mouth once daily. budesonide-formoterol (SYMBICORT) 160-4.5 mcg/actuation inhaler Inhale 2 puffs as instructed two times a day. albuterol HFA (PROVENTIL HFA) 90 mcg/actuation inhaler Inhale 1-2 puffs as instructed four times a day as needed for wheezing/shortness of breath. atorvastatin (LIPITOR) 20 mg tablet Take 1 tablet by mouth once daily. bisoprolol (ZEBETA) 5 mg tablet Take 1 tablet by mouth once daily. fludrocortisone (FLORINEF) 0.1 mg tablet Take 1 tablet by mouth once daily. ciclopirox (LOPROX) 0.77 % cream Apply to affected area two times a day as needed. pantoprazole DR (PROTONIX) 40 mg tablet Take 1 tablet by mouth daily before breakfast. Take on empty stomach, 1/2 hr before meal. oxybutynin XL (DITROPAN XL) 5 mg 24 hr tablet Take 1 tablet by mouth once daily. digoxin (LANOXIN) 250 mcg (0.25 mg) tablet take 1 tablet by mouth every day cholecalciferol (VITAMIN D3) 50 mcg (2,000 unit) tablet Take 1 tablet by mouth daily with dinner. calcium citrate-vitamin D3 (CITRACAL PLUS D) 315 mg-5 mcg (200 unit) tab Take 1 tablet by mouth twice daily with meals. With each meal. [id number]-[id number]-FA-Fish Oil [id number] gh-yb-xpw-mcg cap Take 600 mg by mouth once daily. pyridoxine (VITAMIN B-6) 100 mg tablet Take 2 tablets by mouth twice daily. docusate sodium 100 mg capsule Take 1 capsule by mouth twice daily as needed for Constipation. HYDROcodone-acetaminophen (NORCO) 5-325 mg per tablet Take 1 tablet by mouth every 8 hours as needed for pain for up to 5 days. FAMILY HISTORY Problem Relation Age of Onset Diabetes Mother other (Other) Mother Ischemic Heart Disease Father Diabetes Sister Cataract Sister Detached Retina Sister Asthma No Family History Social History Tobacco Use Smoking status: Never Smokeless tobacco: Never Vaping Use Vaping status: Never Used Substance Use Topics Alcohol use: No Drug use: No BP 110/62 Pulse 78 Resp 12 Wt 103.9 kg (229 lb) SpO2 98% BMI 29.86 kg/m Physical Exam Vitals reviewed. Constitutional: Appearance: Normal appearance. HENT: Head: Eyes: Extraocular Movements: Extraocular movements intact. Pupils: Pupils are equal, round, and reactive to light. Cardiovascular: Rate and Rhythm: Normal rate and regular rhythm. Heart sounds: Normal heart sounds. Pulmonary: Effort: Pulmonary effort is normal. Breath sounds: Normal breath sounds. No wheezing, rhonchi or rales. Musculoskeletal: Right shoulder: Bony tenderness (upper scacpula) present. No crepitus. Normal range of motion (painful). Normal strength. Normal pulse. Left shoulder: No bony tenderness or crepitus. Normal range of motion (painful). Normal strength. Normal pulse. Arms: Lumbar back: Tenderness (point tenderness midline) present. No swelling or deformity. Normal range of motion. Neurological: General: No focal deficit present. Mental Status: He is alert and oriented to person, place, and time. Cranial Nerves: Cranial nerves 2-12 are intact. Sensory: Sensation is intact. Motor: Motor function is intact. Coordination: Coordination is intact. Gait: Gait is intact. Deep Tendon Reflexes: Reflexes are normal and symmetric. Psychiatric: Speech: Speech normal. Behavior: Behavior normal. Behavior is cooperative. Cognition and Memory: Cognition normal. Assessment/Plan 1. Fall, initial encounter (W19.XXXA) Injury of head, initial encounter (S09.90XA) Patient experienced a fall on Monday night, resulting in head trauma against a wall. No current symptoms of headache, dizziness, lightheadedness, blurred vision, double vision, nausea, light sensitivity, sound sensitivity, confusion, or disorientation. Patient is on anticoagulant therapy, increasing the risk for intracranial hemorrhage. - Ordered CT scan of the head to be performed tomorrow at the specialty [facility]. - Advised patient to monitor for severe headache or neurological symptoms and to seek emergency care if these occur. 2. Acute midline low back pain without sciatica (M54.50) Patient reports acute low back pain following the fall, localized above the sacrum. No associated numbness, tingling, or bowel/bladder dysfunction. Pain is slowly improving but remains significant, affecting mobility and comfort. - Ordered X-rays of the lumbar spine to rule out fractures; to be done tonight if possible, or tomorrow at the same location as the CT scan. - Prescribed hydrocodone for pain management; instructed patient not to take additional acetaminophen concurrently. - Advised against the use of NSAIDs due to anticoagulant therapy. - Educated patient on potential side effects of hydrocodone, including drowsiness and constipation; advised caution with activities requiring alertness. 3. Acute pain of both shoulders (M25.511) Patient reports bilateral shoulder pain, with the right shoulder being more affected. Bruising observed on both shoulders. No significant loss of range of motion noted. - X-rays will also assess for potential shoulder injuries. - Continue use of topical analgesics as needed. 4. skilled nursing (current) use of anticoagulants (Z79.01) Patient is on long-term anticoagulant therapy, increasing the risk for bleeding complications following trauma. - Monitor for signs of bleeding, particularly intracranial hemorrhage. I spent a total of 30 minutes on the date of the service which included preparing to see the patient, [id number] patient care, completing clinical documentation, performing a medically appropriate examination, counseling and educating the patient/family/caregiver, and ordering medications, tests, or procedures. Prescription instructions reviewed with patient as applicable. Potential red flag symptoms discussed with the patient. Reviewed appropriate action plan to take if red flag symptoms occur. Patient agreeable to treatment plan. Shea Etienne APRN.FACING GRINDER documented in this encounter [facility] 10-09-2024 Instructions Shea Etienne APRN.RAJAN - 10/09/2024 6:07 PM EDT We discussed your fall and resulting injuries: - You reported pain in your lower back, right shoulder, and left shoulder blade following the fall. You also noted bruising in the shoulder area. - You denied symptoms such as headache, dizziness, lightheadedness, blurred or double vision, nausea, light or sound sensitivity, confusion, numbness, tingling, or bowel/bladder issues. - You mentioned using Tylenol, Bengay, Biofreeze, lidocaine patches, and a donut pillow for pain relief, with Biofreeze providing the most relief. We discussed your care plan: - X-rays of your back and shoulders were ordered to check for fractures. These can be completed tonight if the imaging department is open. If not, you will need to return tomorrow. - A CT scan of your head was ordered to rule out any internal bleeding due to your use of blood thinners. This will need to be scheduled for tomorrow at the specialty center on [facility] and [facility]. - Please call a few hours after your CT scan to request the results. We discussed pain management: - I prescribed hydrocodone, which has been sent to your preferred [facility] pharmacy. - Do not take Tylenol while taking hydrocodone, as hydrocodone already contains Tylenol. You may alternate between hydrocodone and Tylenol, but do not take them at the same time. - Hydrocodone may cause drowsiness, grogginess, or slowed reaction time. Avoid driving or operating machinery while taking it. Be cautious when walking to prevent falls. - If the pain worsens, the medication is not helping, or you experience severe headache, stroke-like symptoms, or other concerning signs, go to the emergency room immediately. - Avoid NSAIDs (e.g., ibuprofen, aspirin) as they can thin your blood further and increase the risk of bleeding. Please monitor your symptoms closely. If you experience any new or worsening symptoms, such as severe headache, confusion, weakness, or difficulty walking, seek medical attention immediately. documented in this encounter [facility] 10-09-2024 Note HNO ID: [id number] Author: SHEA ETIENNE APRN.RAJAN Service: ? Author Type: Nurse Practitioner Type: Progress Notes Filed: 10/09/2024 18:14 Note Text: CC: Patient presents with: Fall: X 5 days : lower back pain, bilateral shoulders HPI Recording using [employer] software for draft documentation of the visit was discussed with the patient/authorized sales and merchandising representative; all questions welcomed and answered. Patient/authorized sales and merchandising representative agreed to proceed Greg Dumont is a 73-year-old male, with a history of arthritis and on anticoagulation therapy, presenting for evaluation of head, back, and shoulder pain following a fall. Greg reports a fall that occurred on Monday night at approximately 1630 while assisting his sister, who was recently discharged from a [facility]. During the incident, his sister's knees began to quiver and shake, causing her to fall. Greg attempted to prevent her fall but ended up falling himself, landing on the ground with his sister on top of him. During the fall, he struck the back of his head against a wall, and his shoulder blades and back made contact with the ground and a nearby desk. He reports a small knot on the back of his head, which is now barely noticeable. He denies experiencing cephalalgia, vertigo, lightheadedness, blurred vision, diplopia, nausea, photophobia, phonophobia, confusion, or disorientation. He also denies any changes in balance or coordination since the fall. Greg reports pain in the lower back, specifically above the tailbone in the lower spine area, as well as pain in the shoulder blades, with the right shoulder being more painful than the left. He notes bruising on both shoulder blades. He denies paresthesia, bowel or bladder dysfunction, or loss of range of motion in the shoulders. The pain in the back and shoulders has been slowly improving but remains present, especially with certain movements. For pain management, he has been using Tylenol, Bengay, lidocaine patches, and Biofreeze. He reports that Biofreeze provided more relief than the other treatments. He also uses a donut cushion under his back while sleeping to alleviate discomfort. He denies any allergies to hydrocodone or other pain medications. 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 Currently chest pain free; However, there is a high chance of recurrence since treatment has been on hold. Giving him steroid might actually put him at more risk of re bleeding. NSAID'S not an option for now. Plan: Consider Colchicine. If patient is to be restarted on AC, Colchicine has DVT (deep venous thrombosis) (HCC) 01/12/2010 S/P IVC filter, occurred post-op, on anticoagulation (for a fib) Eating disorder, unspecified 07/01/2009 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 Essential hypertension, benign Fatty liver 11/03/2009 by us Gall stones, common bile duct 12/07/2013 Generalized anxiety disorder 07/01/2009 GI bleed 06/29/2012 Hip joint replacement by other means 09/21/2012 Hyperlipidemia 08/25/2020 Impaired fasting glucose 05/05/2021 Impotence of organic origin Iron deficiency anemia 08/02/2012 emt intermediate current use of anticoagulant 02/09/2015 Major depressive disorder, recurrent episode, moderate (HCC) 07/01/2009 Morbid obesity (HCC) 04/21/2009 stated BMI 51.1 Ht: 75 Wt: 410 lbs MSSA (methicillin susceptible Staphylococcus aureus) infection 07/03/2012 Hx: MSSA infection of serosal fluids collection in L chest wall. S/P I/D on 06/19. On IV oxacillin till and then dc'ed on 06/23 with a 10 day course of Dicloxacillin. However; pt did not take Abx after 06/28 Plan: Dicloxacillin 500 mg QID for 10 days Nephrolithiasis 2009 Ca Ox OA (osteoarthritis) Orthostatic hypotension (more content not included)... [facility] 10-09-2024 Telephone encounter Note Triage Protocol Advised: ER now. Pr declining. Adamantly requests ambulatory/outpatient appt this afternoon. Aware of risks associated with delayed care. States he has too many medical bills and will take his chances and come to OV appt, as he states any testing ordered will be covered under OV. . Provider updated. Reason for Disposition Taking Coumadin (warfarin) or other strong blood thinner, or known bleeding disorder (e.g., thrombocytopenia) Answer Assessment - Initial Assessment Questions 1. MECHANISM: On 10/05/24 pt was walking with his sister at a [facility], her knees buckled and she fell onto him, causing him to fall. He bumped his head on a wall and fell down and states I landed on my shoulder blades. No LOC. Reports that evening he could barely lay in bed due to back pain. Able to walk steadily but slower. 2. ONSET: 10/05/24 3. NEUROLOGIC SYMPTOMS: denies 4. MENTAL STATUS: alert, oriented, no confusion noted or reported 5. LOCATION: head, left and right posterior shoulders and low/mid back 6. SCALP APPEARANCE: no open areas, small knot-was larger but has improved 7. SIZE: egg sized bruising to shoulders, unsure if bruising to head or back currently 8. PAIN: rates most of his pain is in his mid-back, rates it 3 out of 10, using tylenol, biofreeze 9. TETANUS: (no open areas) 10. BLOOD THINNERS: Eliquis 11. OTHER SYMPTOMS: -denies headaches -denies vision changes -no changes in upper or lower ROM, able to bend and stand -reports had some neck discomfort at times previous to fall-not worse -denies any large amount of bruising anywhere -denies swelling or redness anywhere Protocols used: Head [id number] [facility] 10-09-2024 Miscellaneous Notes Triage Protocol Advised: ER now. Pr declining. Adamantly requests ambulatory/outpatient appt this afternoon. Aware of risks associated with delayed care. States he has too many medical bills and will take his chances and come to OV appt, as he states any testing ordered will be covered under OV. . Provider updated. Reason for Disposition Taking Coumadin (warfarin) or other strong blood thinner, or known bleeding disorder (e.g., thrombocytopenia) Answer Assessment - Initial Assessment Questions 1. MECHANISM: On 10/05/24 pt was walking with his sister at a [facility], her knees buckled and she fell onto him, causing him to fall. He bumped his head on a wall and fell down and states I landed on my shoulder blades. No LOC. Reports that evening he could barely lay in bed due to back pain. Able to walk steadily but slower. 2. ONSET: 10/05/24 3. NEUROLOGIC SYMPTOMS: denies 4. MENTAL STATUS: alert, oriented, no confusion noted or reported 5. LOCATION: head, left and right posterior shoulders and low/mid back 6. SCALP APPEARANCE: no open areas, small knot-was larger but has improved 7. SIZE: egg sized bruising to shoulders, unsure if bruising to head or back currently 8. PAIN: rates most of his pain is in his mid-back, rates it 3 out of 10, using tylenol, biofreeze 9. TETANUS: (no open areas) 10. BLOOD THINNERS: Eliquis 11. OTHER SYMPTOMS: -denies headaches -denies vision changes -no changes in upper or lower ROM, able to bend and stand -reports had some neck discomfort at times previous to fall-not worse -denies any large amount of bruising anywhere -denies swelling or redness anywhere Protocols used: Head [id number] documented in this encounter [facility] 10-09-2024 Telephone encounter Note Patient scheduled with me today for a fall on Monday in which he hit his head and back. He is on a blood thinner and is at high risk for brain bleed, he should be evaluated in the ER Shea Etienne APRN.FACING GRINDER [facility] 10-09-2024 Note HNO ID: [id number] Author: MILLY BERMAN MA Service: ? Author Type: Television Newscast Director Type: Progress Notes Filed: 10/09/2024 15:30 Note Text: POPULATION HEALTH NAVIGATION OUTREACH Action/FYI Patient returned call and appointment scheduled for today with Shea Etienne. Reason for Outreach Community Monitoring/Network Navigator Pools AND Phone Line: CM Pool Care Gaps due: N/A Patient Contacted: Spoke to patient/parent/or legal guardian Patient identified by name and : Yes Community Monitoring/Network Navigator Pools AND Phone Line actions taken: Patient scheduled / pended orders: Follow-Up Appointment 10/09/2024 in [place] with SHEA ETIENNE - fell on Sat and hit his head and back [facility] - Foamy urine and frequency 10/[facility] ISA ALONSO - Major depressive disorder, recurrent episode, moderate (HCC) [F33.1]; Generalized anxiety disorder [F41.1] [facility] - follow up 6 months 11/12/2024 [facility] QUINCY ALONZO J - R/S from VV issues on 09/23/24. Patient requested in office visit [facility] GEM[facility] TESFAYE - 2 month f/u Navigation Signature: Milly Berman MA October 09, 2024 3:29 PM [facility] 10-09-2024 History of Presen t illness Narrative POPULATION HEALTH NAVIGATION OUTREACH Action/ Patient returned call and appointment scheduled for today with Shea Etienne. Reason for Outreach Community Monitoring/Network Navigator Pools & Phone Line: CM Pool Care Gaps due: N/A Patient Contacted: Spoke to patient/parent/or legal guardian Patient identified by name and : Yes Community Monitoring/Network Navigator Pools & Phone Line actions taken: Patient scheduled / pended orders: Follow-Up Appointment 10/09/[address] [facility] with SHEA ETIENNE - fell on Sat and hit his head and back 10/22/[address] [facility] with ANTONIO STAHL - Foamy urine and frequency 10/25/[address] [facility] with ISA ALONSO - Major depressive disorder, recurrent episode, moderate (HCC) [F33.1]; Generalized anxiety disorder [F41.1] 11/11/[address] [facility] with SHEA ETIENNE - follow up 6 months 11/12/[address] [facility] with QUINCY ALONZO - R/S from VV issues on 09/23/24. Patient requested in office visit 11/20/2024 in [facility] with GEMMA TESFAYE 2 month f/u Navigation Signature: Milly Berman MA October 09, 2024 3:29 PM POPULATION HEALTH NAVIGATION OUTREACH Action/ANJUM Left message for patient as phone went right to [employer]. Left patient my direct number and asked him to call at his earliest convenience. Will attempt second try this afternoon. No other HM due. [facility] team, fell on Sat and hit his head and back. Still having lots of pain. Declined ED, urgent care or virtual appointment.Please call and arrange PCP follow up roseline ( ideally in next 48 hrs) Reason for Outreach Community Monitoring/Network Navigator Pools & Phone Line: CM Pool Care Gaps due: Follow-up Appointment Patient Contacted: Unable or unnecessary to reach patient: Left message Navigation Signature: Milly Berman MA October 09, 2024 1:32 PM Images from the original note were not included. [facility] Telephonic Outreach Provider Action/FYI [facility] team, fell on Sat and hit his head and back. Still having lots of pain. Declined ED, urgent care or virtual appointment.Please call and arrange PCP follow up roseline ( ideally in next 48 hrs) Dr Roque, he declines ED/virtual or Urgent care for follow up from fall that included hitting his head. ( On Eliquis) sending for roseline PCP follow up.thank you Will hold discharge from care coordination for another week Sister is coming home today. His other sister is also in town to help with this process. Much emotional support given. Last Sat at the [facility], his sister fell on him. He hit his head and back His head has a small bump:and his back has a large ecchymotic area. His tail bone also hurts. Has not improved much since Sat. Declines to go to ED as he has a large bill with [facility]. Aware they still will see him but he declines to go be evaluated. Also suggested the urgent care at [facility], he still declines. Attempted to have him speak with virtual provider. Declines again. Did agree to see his PCP. Will send to [facility] team for appointment in next 48 hrs.if possible. Will follow up for last call next week. He is aware he will be discharged at this time. Patient identified by Name and Date of . Discussed care with patient. Program Details Chronic Disease Management Status: Enrolled Effective Dates: 07/18/2024 - present Responsible Staff: Jenn Vidales RN Support and Services: Hypertension, Chronic Obstructive Pulmonary Disease (COPD), Congestive Heart Failure (CHF) Program Goals Targets Target Due Completed Completed By Outcome General education provided (managing stress, where to go/how to contact, etc.) 08/19/2024 -- -- -- Annual Medicare Wellness visit addressed 10/17/2024 -- -- -- Biannual Cardiology visit addressed 10/17/2024 -- -- -- Reinforced need to call office to get new Cardiology appointment Biannual PCP visit addressed 10/17/2024 -- -- -- Comprehensive COPD education provided 10/17/2024 -- -- -- Patient-stated goal addressed (add comment) 10/17/2024 -- -- -- Get back to working out Annual Pulmonology visit addressed 10/17/2024 09/26/2024 Jenn Vidales RN Complete/Scheduled Comprehensive CHF education provided 10/17/2024 08/15/2024 Jenn Vidales RN Complete Comprehensive HTN education provided 10/17/2024 07/31/2024 Jenn Vidales RN Complete HTN lab care gaps addressed 10/17/2024 07/31/2024 Jenn Vidales RN Complete/Scheduled Intake assessments completed: ADLs, Fall Risk, SDOH 08/19/2024 07/18/2024 Jenn Vidales RN Complete Assessments CDM Assessment Medications: Do you have any questions about taking your medications or which medications you should be taking?: No Do you need any medication refills at this time, including any of the medication you might take only when needed?: No Social: It can be normal to feel anxious or down during a time like this. Would you like to talk to a mental health professional about how you have been feeling?: No (has another appointment in October) Symptoms: Are you experiencing any new or worsening symptoms that you need to talk about today?: Yes (fell with his sister on top of him. painful. He declines vertual appoingment, agrees to PCP appointment) ADLs No documentation this encounter Fall Risk No documentation this encounter SDOH No documentation this encounter Interventions The following were addressed during this visit: - Month 1: Provide General Education: Managing Stress & Anxiety Disposition Based on paediatrician, the following disposition is advised: Routed to the Navigation Team Details:: Primary Care Provider visit within 48 hours. Jenn Vidales RN October 09, 2024 12:42 PM documented in this encounter [facility] 10-09-2024 Note HNO ID: [id number] Author: MILLY BERMAN MA Service: ? Author Type: Television Newscast Director Type: Progress Notes Filed: 10/09/2024 13:33 Note Text: POPULATION HEALTH NAVIGATION OUTREACH Action/FYI Left message for patient as phone went right to voicemail. Left patient my direct number and asked him to call at his earliest convenience. Will attempt second try this afternoon. No other HM due. [facility], fell on Sat and hit his head and back. Still having lots of pain. Declined ED, urgent care or virtual appointment.Please call and arrange PCP follow up roseline ( ideally in next 48 hrs) Reason for Outreach Community Monitoring/Network Navigator Pools AND Phone Line: CM Pool Care Gaps due: Follow-up Appointment Patient Contacted: Unable or unnecessary to reach patient: Left message Navigation Signature: Milly Berman MA October 09, 2024 1:32 PM [facility] 10-09-2024 Note HNO ID: [id number] Author: JENN VIDALES RN Service: ? Author Type: Registered Nurse Type: Progress Notes Filed: 10/09/2024 13:05 Note Text: CDM Care Path Telephonic Outreach Provider Action/FYI [facility] team, fell on Sat and hit his head and back. Still having lots of pain. Declined ED, urgent care or virtual appointment.Please call and arrange PCP follow up roseline ( ideally in next 48 hrs) Dr Roque, he declines ED/virtual or Urgent care for follow up from fall that included hitting his head. ( On Eliquis) sending for roseline PCP follow up.thank you Will hold discharge from care coordination for another week Sister is coming home today. His other sister is also in town to help with this process. Much emotional support given. Last Sat at the [facility], his sister fell on him. He hit his head and back His head has a small bump:and his back has a large ecchymotic area. His tail bone also hurts. Has not improved much since Sat. Declines to go to ED as he has a large bill with [facility]. Aware they still will see him but he declines to go be evaluated. Also suggested the urgent care at [facility], he still declines. Attempted to have him speak with virtual provider. Declines again. Did agree to see his PCP. Will send to [facility] team for appointment in next 48 hrs.if possible. Will follow up for last call next week. He is aware he will be discharged at this time. Patient identified by Name and Date of . Discussed care with patient. Program Details Chronic Disease Management Status: Enrolled Effective Dates: 07/18/2024 - present Responsible Staff: Jenn Vidales RN Support and Services: Hypertension, Chronic Obstructive Pulmonary Disease (COPD), Congestive Heart Failure (CHF) Program Goals Targets Target Due Completed Completed By Outcome General education provided (managing stress, where to go/how to contact, etc.) 08/19/2024 -- -- -- Annual Medicare Wellness visit addressed 10/17/2024 -- -- -- Biannual Cardiology visit addressed 10/17/2024 -- -- -- Reinforced need to call office to get new Cardiology appointment Biannual PCP visit addressed 10/17/2024 -- -- -- Comprehensive COPD education provided 10/17/2024 -- -- -- Patient-stated goal addressed (add comment) 10/17/2024 -- -- -- Get back to working out Annual Pulmonology visit addressed 10/17/2024 09/26/2024 Jenn Vidales RN Complete/Scheduled Comprehensive CHF education provided 10/17/2024 08/15/2024 Jenn Vidales RN Complete Comprehensive HTN education provided 10/17/2024 07/31/2024 Jenn Vidales RN Complete HTN lab care gaps addressed 10/17/2024 07/31/2024 Jenn Vidales RN Complete/Scheduled Intake assessments completed: ADLs, Fall Risk, SDOH 08/19/2024 07/18/2024 Jenn Vidales RN Complete Assessments CDM Assessment Medications: Do you have any questions about taking your medications or which medications you should be taking?: No Do you need any medication refills at this time, including any of the medication you might take only when needed?: No Social: It can be normal to feel anxious or down during a time like this. Would you like to talk to a mental health professional about how you have been feeling?: No (has another appointment in October) Symptoms: Are you experiencing any new or worsening symptoms that you need to talk about today?: Yes (fell with his sister on top of him. painful. He declines vertual appoingment, agrees to PCP appointment) ADLs No documentation this encounter Fall Risk No documentation this encounter SDOH No documentation this encounter Interventions The following were addressed during this visit: - Month 1: Provide General Education: Managing Stress AND Anxiety Disposition Based on paediatrician, the following disposition is advised: Routed to the Navigation Team Details:: Primary Care Provider visit within 48 hours. Jenn Vidales RN October 09, 2024 12:42 PM [facility] 10-09-2024 Note Patient Outreach (AM BC) ORION DUMONT ([id number]) 1950 M Date Time Provider Department 10/09/24 JENN VIDALES During your visit today, we recorded the following information about you: Jenn Vidales RN 10/09/2024 1:05 PM Addendum CD Care Path Telephonic Outreach Provider Action/I [facility], fell on Sat and hit his head and back. Still having lots of pain. Declined ED, urgent care or virtual appointment.Please call and arrange PCP follow up roseline ( ideally in next 48 hrs) Dr Roque, he declines ED/virtual or Urgent care for follow up from fall that included hitting his head. ( On Eliquis) sending for roseline PCP follow up.thank you Will hold discharge from care coordination for another week Sister is coming home today. His other sister is also in town to help with this process. Much emotional support given. Last Sat at the [facility], his sister fell on him. He hit his head and back His head has a small bump:and his back has a large ecchymotic area. His tail bone also hurts. Has not improved much since Sat. Declines to go to ED as he has a large bill with [facility]. Aware they still will see him but he declines to go be evaluated. Also suggested the urgent care at [facility], he still declines. Attempted to have him speak with virtual provider. Declines again. Did agree to see his PCP. Will send to [facility] team for appointment in next 48 hrs.if possible. Will follow up for last call next week. He is aware he will be discharged at this time. Patient identified by Name and Date of . Discussed care with patient. Program Details Chronic Disease Management Status: Enrolled Effective Dates: 07/18/2024 - present Responsible Staff: Jenn Vidales RN Support and Services: Hypertension, Chronic Obstructive Pulmonary Disease (COPD), Congestive Heart Failure (CHF) Program Goals Targets Target Due Completed Completed By Outcome General education provided (managing stress, where to go/how to contact, etc.) 08/19/2024 -- -- -- Annual Medicare Wellness visit addressed 10/17/2024 -- -- -- Biannual Cardiology visit addressed 10/17/2024 -- -- -- Reinforced need to call office to get new Cardiology appointment Biannual PCP visit addressed 10/17/2024 -- -- -- Comprehensive COPD education provided 10/17/2024 -- -- -- Patient-stated goal addressed (add comment) 10/17/2024 -- -- -- Get back to working out Annual Pulmonology visit addressed 10/17/2024 09/26/2024 Jenn Vidales RN Complete/Scheduled Comprehensive CHF education provided 10/17/2024 08/15/2024 Jenn Vidales RN Complete Comprehensive HTN education provided 10/17/2024 07/31/2024 Jenn Vidales RN Complete HTN lab care gaps addressed 10/17/2024 07/31/2024 Jenn Vidales RN Complete/Scheduled Intake assessments completed: ADLs, Fall Risk, SDOH 08/19/2024 07/18/2024 Jnen Vidales RN Complete Assessments CDM Assessment Medications: Do you have any questions about taking your medications or which medications you should be taking?: No Do you need any medication refills at this time, including any of the medication you might take only when needed?: No Social: It can be normal to feel anxious or down during a time like this. Would you like to talk to a mental health professional about how you have been feeling?: No (has another appointment in October) Symptoms: Are you experiencing any new or worsening symptoms that you need to talk about today?: Yes (fell with his sister on top of him. painful. He declines vertual appoingment, agrees to PCP appointment) ADLs No documentation this encounter Fall Risk No documentation this encounter SDOH No documentation this encounter Interventions The following were addressed during this visit: - Month 1: Provide General Education: Managing Stress AND Anxiety Disposition Based on paediatrician, the following disposition is advised: Routed to the Navigation Team Details:: Primary Care Provider visit within 48 hours. Jenn Vidales RN October 09, 2024 12:42 PM Milly Berman MA 10/09/2024 1:33 PM Signed POPULATION HEALTH NAVIGATION OUTREACH Action/FYI Left message for patient as phone went right to [employer]. Left patient my direct number and asked him to call at his earliest convenience. Will attempt second try this afternoon. No other HM due. [facility] team, fell on Sat and hit his head and back. Still having lots of pain. Declined ED, urgent care or virtual appointment.Please call and arrange PCP follow up roseline ( ideally in next 48 hrs) Reason for Outreach Community Monitoring/Network Navigator Pools AND Phone Line: Pool Care Gaps due: Follow-up Appointment Patient Contacted: Unable or unnecessary to reach patient: Left message Navigation Signature: Milly Berman MA October 09, 2024 1:32 PM Milly Berman MA 10/09/2024 3:30 PM Signed POPULATION HEALTH NAVIGATION OUTREACH (more content not included)... [facility] 10-08-2024 Instructions Quincy Alonzo, BRAD.[facility] - 10/08/2024 11:28 AM EDT We discussed your back pain and caregiver strain: - Continue using Tylenol as needed for pain relief. - You may also continue using lidocaine patches for pain management. Apply them as directed to the affected areas. - Consider physical therapy to help with your back pain. - Avoid taking on too much physical strain while caring for your sister. Take breaks as needed and prioritize your own health. We discussed your sleep difficulties: - Continue taking Seroquel (quetiapine) as prescribed to help with sleep. - Take Seroquel right before going to bed to avoid falling asleep in unsafe places, such as a chair. Keep the medication on your nightstand and take it when you are ready to lie down. - Aim to gradually adjust your bedtime earlier by 15 minutes every few days to establish a more consistent sleep schedule. - Ensure you are getting at least 8 hours of sleep to avoid grogginess during the day. We discussed your anxiety and mental health: - Continue taking Zoloft (sertraline) at the increased dose of 2 tablets daily as prescribed. - Continue taking BuSpar (buspirone) twice daily as discussed to help manage anxiety. - Your therapy appointment with Dr. Alonso is scheduled for October 25. During this visit, discuss your preference for weekly sessions and explore his availability. We discussed your medications: - Ensure you have enough Eliquis (prescribed by your parts salesman). If you are running low, contact your parts salesman to discuss options for a short-term supply or expedited delivery from your pharmacy. - Follow up with the pharmacy regarding the status of your inhaler and Eliquis shipment. Let them know you are running low to see if they can expedite the delivery. We discussed your stress and planning for the future: - Consider creating a plan for housing and care in case your sister transitions to assisted living or other arrangements. Having a plan may help reduce your anxiety. - Continue to avoid engaging with scam messages or calls. Deleting and blocking these contacts has been effective--keep up the good work. Your next appointment with me is scheduled for November 12. At that time, we will review how your therapy session went and discuss any additional resources you may need. Please reach out sooner if you have any concerns or if your symptoms worsen. For those experiencing a suicidal crisis: --call the National Suicide Prevention Lifeline at 988 (590.537.8334) --text the Crisis Text Line (text HOME to 890900) --call 911 and let them know you are having a mental health crisis or go to your nearest Emergency Room for stabilization. --You can also call Mobile Crisis at [phone]. -- You may call the department appointment line at [phone] to schedule your appointment. -- Please call my nurse at [phone] or send me a message in [employer] with any questions or concerns between appointments. documented in this encounter [facility] 10-08-2024 Note HNO ID: [id number] Author: QUINCY ALONZO APRN.CNP Service: ? Author Type: Nurse Practitioner Type: Progress Notes Filed: 10/10/2024 15:28 Note Text: FOLLOW UP - PSYCHIATRIC PROGRESS NOTE Visit Type:In person Recording using Capigami software for draft documentation of the visit was discussed with the patient/authorized sales and merchandising representative; all questions welcomed and answered. Patient/authorized sales and merchandising representative agreed to proceed CC: Outpatient follow-up and safety monitoring of previously prescribed psychiatric medication, psychotherapy or other treatment HPI: Patient is a 73-year-old male with a history of anxiety and sleep disturbances, presenting for follow-up. Patient reports significant stress related to caregiving responsibilities for his sister, who has been in a [facility] since 09/06. He visits her almost daily, which has exacerbated his back pain. He uses Tylenol and lidocaine patches for pain management but still experiences severe discomfort, particularly in his tailbone, which worsens when lying in bed. He describes the pain as soreness in the whole general area and notes that it is more intense at night. He expresses anxiety about his sister's health and the possibility of needing to find a new place to live if her condition worsens. He describes himself as a procrastinator and has not made any plans for this potential situation. He mentions a desire to go before she does, indicating significant stress and worry about the future. He reports improvement in managing scam messages, having deleted three recently. He is currently taking quetiapine, which helps him sleep but causes grogginess if he doesn't get a full 8 hours of rest. He struggles with maintaining a consistent sleep schedule, often getting only 3-5 hours of sleep per night. He attributes this to his long history of working third shifts and difficulty reprogramming his sleep patterns. He is also taking Zoloft, which was recently increased to two tablets, and reports no issues with this adjustment. Additionally, he is taking BuSpar twice daily for anxiety management. He has an upcoming therapy appointment on 10/[address] Alonso, a psychologist, and expresses interest in weekly sessions. 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 He is managing medication costs by ordering from [facility]. Risks and benefits of the medication, including any black box warnings, were discussed with the patient. Interval Progress: Slightly improved PATIENT DATA: Generalized Anxiety Disorder Scale (LANA-7) 08/05/2024 09/22/2024 10/07/2024 LANA - 7 SCORES Score 8 10 8 (0-4) minimal anxiety, (5-9) mild anxiety, (10-14) moderate anxiety, (15-21) severe anxiety Patient Health Questionnaire (PHQ-9) 08/05/2024 09/22/2024 10/07/2024 PHQ-9 Score 12 9 12 (0-4) minimal depression, (5-9) mild depression, (10-14) moderate depression, (15-19) moderately severe depression, (20-27) severe depression PROMIS Global Health 05/17/2022 05/17/2023 09/22/2024 PROMIS Global Health - (T-Scores - the mean of general population = 50. 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 Currently chest pain free; However, there is a high chance of recurrence since treatment has been on hold. Giving him steroid might actually put him at more risk of re bleeding. NSAID'S not an option for now. Plan: Consider Colchicine. If patient is to be restarted on AC, Colchicine has DVT (deep venous thrombosis) ([facility]) 01/12/2010 S/P IVC filter, occurred post-op, on anticoagulation (for a fib) Eating disorder, unspeci (more content not included)... [facility] 10-08-2024 History of Presen t illness Narrative Images from the original note were not included. FOLLOW UP - PSYCHIATRIC PROGRESS NOTE Visit Type:In person Recording using ambient Springbot software for draft documentation of the visit was discussed with the patient/authorized sales and merchandising representative; all questions welcomed and answered. Patient/authorized sales and merchandising representative agreed to proceed CC: Outpatient follow-up and safety monitoring of previously prescribed psychiatric medication, psychotherapy or other treatment HPI: Patient is a 73-year-old male with a history of anxiety and sleep disturbances, presenting for follow-up. Patient reports significant stress related to caregiving responsibilities for his sister, who has been in a mcfp since 09/06. He visits her almost daily, which has exacerbated his back pain. He uses Tylenol and lidocaine patches for pain management but still experiences severe discomfort, particularly in his tailbone, which worsens when lying in bed. He describes the pain as soreness in the whole general area and notes that it is more intense at night. He expresses anxiety about his sister's health and the possibility of needing to find a new place to live if her condition worsens. He describes himself as a procrastinator and has not made any plans for this potential situation. He mentions a desire to go before she does, indicating significant stress and worry about the future. He reports improvement in managing scam messages, having deleted three recently. He is currently taking quetiapine, which helps him sleep but causes grogginess if he doesn't get a full 8 hours of rest. He struggles with maintaining a consistent sleep schedule, often getting only 3-5 hours of sleep per night. He attributes this to his long history of working third shifts and difficulty reprogramming his sleep patterns. He is also taking Zoloft, which was recently increased to two tablets, and reports no issues with this adjustment. Additionally, he is taking BuSpar twice daily for anxiety management. He has an upcoming therapy appointment on 10/[address] Alonso, a psychologist, and expresses interest in weekly sessions. 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 He is managing medication costs by ordering from [facility]. Risks and benefits of the medication, including any black box warnings, were discussed with the patient. Interval Progress: Slightly improved PATIENT DATA: Generalized Anxiety Disorder Scale (LANA-7) 08/05/2024 09/22/202410/0710/07/2024 LANA - 7 SCORES Score 8 10 8 (0-4) minimal anxiety, (5-9) mild anxiety, (10-14) moderate anxiety, (15-21) severe anxiety Patient Health Questionnaire (PHQ-9) 08/05/2024 09/22/2024 10/07/2024 PHQ-9 Score 12 9 12 (0-4) minimal depression, (5-9) mild depression, (10-14) moderate depression, (15-19) moderately severe depression, (20-27) severe depression PROMIS Global Health 05/17/2022 05/17/2023 09/22/2024 PROMIS Global Health - (T-Scores - the mean of general population = 50. 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 Currently chest pain free; However, there is a high chance of recurrence since treatment has been on hold. Giving him steroid might actually put him at more risk of re bleeding. NSAID'S not an option for now. Plan: Consider [place]. If patient is to be restarted on AC, [place] has DVT (deep venous thrombosis) ([facility]) 01/12/2010 S/P IVC filter, occurred post-op, on anticoagulation (for a fib) Eating disorder, unspecified 07/01/2009 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 Essential hypertension, benign Fatty liver 11/03/2009 by us Gall stones, common bile duct 12/07/2013 Generalized anxiety disorder 07/01/2009 GI bleed 06/29/2012 Hip joint replacement by other means 09/21/2012 Hyperlipidemia 08/25/2020 Impaired fasting glucose 05/05/2021 Impotence of organic origin Iron deficiency anemia 08/02/2012 skilled nursing current use of anticoagulant 02/09/2015 Major depressive disorder, recurrent episode, moderate ([facility]) 07/01/2009 Morbid obesity ([facility]) 04/21/2009 stated BMI 51.1 Ht: 75 Wt: 410 lbs MSSA (methicillin susceptible Staphylococcus aureus) infection 07/03/2012 Hx: MSSA infection of serosal fluids collection in L chest wall. S/P I/D on 06/19. On IV oxacillin till and then dc'ed on 06/23 with a 10 day course of Dicloxacillin. 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 Currently chest pain free; Talked with cardiology - said no need for treatment is patient is treatment free Plan: Continue to monitor Postsurgical dumping syndrome 08/30/2012 Pulmonary embolism ([facility]) 03/01/2010 Retinal detachment OD Syncope 11/02/2018 Torn rotator cuff Upper GI bleed 07/03/2012 Hx: UGIB presenting to OSH on 06/29 with Melanotic stool; EGD showed jejunal pouch ulcers and dieulafoy lesion which were clipped and injected Given IV PPI Assessment: UGI 2/2 to Dieulafoy and NSAID induced ulcers. Plan: Monitor H&H Q8H, transfuse as necessary, keep Hb>8 Consult IR for further intervention Protonix gtt for now, will switch to protonix 40mg bid when Hb is stable after 48-72 salma UTI (lower urinary tract infection) Varicose veins 2010 Varicose veins of both legs with edema 2010 Vitamin D deficiency 08/02/2012 PAST SURGICAL HISTORY Procedure Laterality Date APPENDECTOMY HX ARTHRP ACETBLR/PROX FEM PROSTC AGRFT/ALGRFT 1993 left BACK SURGERY HX CARDIOVERSION CHOLECYSTECTOMY 11/18/2013 COLONOSCOPY 02/22/2023 repeat 10 years COLONOSCOPY GEN ANES 04/20/2020 CYSTO BLADDER W/URETERAL CATHETERIZATION 01/30/2010 CYSTOSCOPY, RETROPYELOGRAM performed by RADHA OLIVAREZ at OR CYSTO W/INSERT URETERAL STENT 01/30/2010 CYSTOSCOPY, INSERTION STENT URETERAL J performed by RADHA OLIVAREZ at OR CYSTOURETHROSCOPY 06/16/2017 Cystoscopy DISKECTOMY, LUMBAR, SINGLE SP 1981 L4-5 EGD 04/20/2020 GASTRIC BYPASS HX 2008 w/ complications. JOINT REPLACEMENT HX Bilateral Hips NEPHROLITHOTOMY REMOVAL STAGE 1 05/02/2012 PAST SURGICAL HISTORY OF 1967 left hip pin PAST SURGICAL HISTORY OF 04/23/2012 heart surgery PAST SURGICAL HISTORY OF 06/04/2012 stitches for broken blood vesel in rectum REDUCE BOWEL OBSTRUCTION 06/24/2010 Performed by RAN REPAIR RETINAL DETACHMENT SCLERAL BUCKLING 10/2009 od Scleral Buckle REPAIR RETINAL DETACHMENT SCLERAL BUCKLING 08/05/2013 SB (Scleral Buckle)/ cyro os REVISE MEDIAN N/CARPAL TUNNEL SURG Left 10/2020 SESAMOIDECTOMY, THUMB/FINGER Left 06/30/2022 Left Thumb arthroplasty VITRECTOMY MECHANICAL PARS PLANA 09/03/2013 PPV / EL / gas OS Current Outpatient Medications Medication Sig Dispense Refill apixaban (ELIQUIS) 5 mg tab(s) Take 1 tablet by mouth two times a day. budesonide-formoterol (SYMBICORT) 160-4.5 mcg/actuation inhaler Inhale 2 puffs as instructed two times a day. 30.6 g 3 albuterol HFA (PROVENTIL HFA) 90 mcg/actuation inhaler Inhale 1-2 puffs as instructed four times a day as needed for wheezing/shortness of breath. 18 g 0 atorvastatin (LIPITOR) 20 mg tablet Take 1 tablet by mouth once daily. 90 tablet 3 bisoprolol (ZEBETA) 5 mg tablet Take 1 tablet by mouth once daily. 90 tablet 2 fludrocortisone (FLORINEF) 0.1 mg tablet Take 1 tablet by mouth once daily. 90 tablet 2 ciclopirox (LOPROX) 0.77 % cream Apply to affected area two times a day as needed. [address] (PROTONIX) 40 mg tablet Take 1 tablet by mouth daily before breakfast. Take on empty stomach, 1/2 hr before meal. 90 tablet 3 oxybutynin XL (DITROPAN XL) 5 mg 24 hr tablet Take 1 tablet by mouth once daily. 90 tablet 3 digoxin (LANOXIN) 250 mcg (0.25 mg) tablet take 1 tablet by mouth every day 90 tablet 2 cholecalciferol (VITAMIN D3) 50 mcg (2,000 unit) tablet Take 1 tablet by mouth daily with dinner. calcium citrate-vitamin D3 (CITRACAL PLUS D) 315 mg-5 mcg (200 unit) tab Take 1 tablet by mouth twice daily with meals. With each meal. Mespd8-[id number]-E-FA-Fish Oil [id number] gw-jr-vmb-mcg cap Take 600 mg by mouth once daily. pyridoxine (VITAMIN B-6) 100 mg tablet Take 2 tablets by mouth twice daily. 180 tablet 6 docusate sodium 100 mg capsule Take 1 capsule by mouth twice daily as needed for Constipation. 60 capsule 2 HYDROcodone-acetaminophen (NORCO) 5-325 mg per tablet Take 1 tablet by mouth every 8 hours as needed for pain for up to 5 days. 15 tablet 0 QUEtiapine (SEROQUEL) 50 mg tablet Take 1 tablet by mouth daily at bedtime. 90 tablet 0 sertraline (ZOLOFT) 100 mg tablet Take 2 tablets by mouth once daily. 180 tablet 0 busPIRone (BUSPAR) 15 mg tablet Take 1 tablet by mouth two times a day. 180 tablet 0 lamoTRIgine (LAMICTAL) 100 mg tablet Take 1 tablet by mouth once daily. 90 tablet 0 No current facility-administered medications for this visit. ROS: See HPI PFSH: See HPI VITAL SIGNS: 10/08/24 1045 BP: 118/75 Pulse: 89 SpO2: 97% Weight: 104.3 kg (230 lb) MENTAL STATUS EXAM: Mental Status Exam General/Sensorium: Alert Orientation: AAOx3 Appearance: Casually dressed and appears stated age Eye contact: Appropriate Demeanor: Guarded- due to back pain Motor activity: Calm Speech: Articulate with appropriate rhythm and volume Mood: Sad and anxious Affect: Congruent with mood Thought process: Linear, logical, and goal-directed Associations: Normal Thought content: Discussing stressors and focused on history, symptoms, and management Suicidal ideation: SI: no Plan: no Intent: no Homicidal ideation: HI: no Plan: no Intent: no Abnormal/psychotic thoughts: Absent Perceptions: He does not appear internally stimulated. Attention: Intact Memory: Short-term: Intact Long-term: Intact Language: Intact Fund of knowledge: Fair Insight: Improving Judgment: Improving DATA REVIEWED: Psychiatric scales, Labs, and Electronic medical record ASSESSMENT & PLAN: 1. 1. 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 Currently taking Seroquel, Zoloft, and BuSpar. Seroquel is effective for sleep but causes grogginess when not getting 8 hours of sleep. Zoloft dosage increased to 200 mg daily. BuSpar is being taken twice daily as prescribed. - Continue Seroquel, Zoloft, and BuSpar as prescribed. - Advised patient to take Seroquel earlier in the evening and only when in bed to ensure adequate sleep and reduce daytime grogginess. - Reinforced the importance of maintaining a consistent sleep schedule and gradually adjusting bedtime earlier by 15 minutes every few days. - Refill prescription for Zoloft to ensure patient has an adequate supply. - Follow-up appointment scheduled for November 12 to monitor progress and adjust treatment as necessary. 2. Psychosocial stressors (Z65.8) Patient is experiencing significant stress related to caregiving responsibilities for a sister with potential Parkinson's disease and recent hospitalizations. Additional stressors include concerns about housing stability and financial burdens related to medication costs. - Discussed the importance of self-care and seeking support for caregiver strain. - Encouraged patient to explore housing options and develop a contingency plan to reduce anxiety about future living arrangements. - Patient has an appointment with Dr. Alonso, a psychologist, on October 25 for therapy. Advised patient to discuss the possibility of scheduling regular sessions to address ongoing stressors. 3. Encounter for long-term (current) use of medications (Z79.899) Patient is on long-term medications including Eliquis and an inhaler for asthma. Patient is experiencing financial difficulties with medication costs and has sought alternative sources for medications. - Advised patient to contact parts salesman to discuss options for obtaining a short supply of Eliquis. - Reinforced the importance of maintaining medication adherence and exploring financial assistance programs if needed. - Reviewed Lamictal titration & risk of severe rash. Instructed to call ROSELINE if this occurs. Patient denies any involuntary movement related side effects. PATIENT INSTRUCTIONS: We discussed your back pain and caregiver strain: - Continue using Tylenol as needed for pain relief. - You may also continue using lidocaine patches for pain management. Apply them as directed to the affected areas. - Consider physical therapy to help with your back pain. - Avoid taking on too much physical strain while caring for your sister. Take breaks as needed and prioritize your own health. We discussed your sleep difficulties: - Continue taking Seroquel (quetiapine) as prescribed to help with sleep. - Take Seroquel right before going to bed to avoid falling asleep in unsafe places, such as a chair. Keep the medication on your nightstand and take it when you are ready to lie down. - Aim to gradually adjust your bedtime earlier by 15 minutes every few days to establish a more consistent sleep schedule. - Ensure you are getting at least 8 hours of sleep to avoid grogginess during the day. We discussed your anxiety and mental health: - Continue taking Zoloft (sertraline) at the increased dose of 2 tablets daily as prescribed. - Continue taking BuSpar (buspirone) twice daily as discussed to help manage anxiety. - Your therapy appointment with Dr. Alonso is scheduled for October 25. During this visit, discuss your preference for weekly sessions and explore his availability. We discussed your medications: - Ensure you have enough Eliquis (prescribed by your parts salesman). If you are running low, contact your parts salesman to discuss options for a short-term supply or expedited delivery from your pharmacy. - Follow up with the pharmacy regarding the status of your inhaler and Eliquis shipment. Let them know you are running low to see if they can expedite the delivery. We discussed your stress and planning for the future: - Consider creating a plan for housing and care in case your sister transitions to assisted living or other arrangements. Having a plan may help reduce your anxiety. - Continue to avoid engaging with scam messages or calls. Deleting and blocking these contacts has been effective--keep up the good work. Your next appointment with me is scheduled for November 12. At that time, we will review how your therapy session went and discuss any additional resources you may need. Please reach out sooner if you have any concerns or if your symptoms worsen. Medical Decision Making: Problems: Moderate: 2+ stable chronic illnesses Risk: Moderate: Moderate risk from testing/treatment and Drug management Medical Decision Making Level: 4 - Moderate ADD ON PSYCHOTHERAPY CODE : No SIGNATURE: Quincy Alonzo APRN.CNP PATIENT NAME: Orion Dumont DATE: October 08, 2024 TIME: 11:05 AM documented in this encounter [facility] 09-26-2024 Note HNO ID: [id number] Author: JENN VIDALES RN Service: ? Author Type: Registered Nurse Type: Progress Notes Filed: 09/26/2024 11:17 Note Text: [facility] Telephonic Outreach Provider Action/FYI Patient identified by Name and Date of . Discussed care with patient. Program Details Chronic Disease Management Status: Enrolled Effective Dates: 07/18/2024 - present Responsible Staff: Jenn Vidales RN Support and Services: Hypertension, Chronic Obstructive Pulmonary Disease (COPD), Congestive Heart Failure (CHF) Program Goals Targets Target Due Completed Completed By Outcome General education provided (managing stress, where to go/how to contact, etc.) 08/19/2024 -- -- -- Annual Medicare Wellness visit addressed 10/17/2024 -- -- -- Annual Pulmonology visit addressed 10/17/2024 -- -- -- Biannual Cardiology visit addressed 10/17/2024 -- -- -- Reinforced need to call office to get new Cardiology appointment Biannual PCP visit addressed 10/17/2024 -- -- -- Comprehensive COPD education provided 10/17/2024 -- -- -- Patient-stated goal addressed (add comment) 10/17/2024 -- -- -- Get back to working out Comprehensive CHF education provided 10/17/2024 08/15/2024 Jenn Vidales RN Complete Comprehensive HTN education provided 10/17/2024 07/31/2024 Jenn Vidales RN Complete HTN lab care gaps addressed 10/17/2024 07/31/2024 Jenn Vidales RN Complete/Scheduled Intake assessments completed: ADLs, Fall Risk, SDOH 08/19/2024 07/18/2024 Jenn Vidales RN Complete Assessments CDM Assessment Medications: Do you have any questions about taking your medications or which medications you should be taking?: No Do you need any medication refills at this time, including any of the medication you might take only when needed?: No Social: It can be normal to feel anxious or down during a time like this. Would you like to talk to a mental health professional about how you have been feeling?: No (has appointment in October) Symptoms: Are you experiencing any new or worsening symptoms that you need to talk about today?: No ADLs No documentation this encounter Fall Risk No documentation this encounter SDOH No documentation this encounter Interventions The following were addressed during this visit: - Schedule Biannual PCP Appointment - Schedule Annual Wellness Visit - Month 1: Provide General Education: Smoking Cessation - Month 1: Provide General Education: How to Contact Your Physician Team - Schedule Biannual Cardiology Appointment - Month 1: Provide COPD Education: Action Plan - Month 1: Provide COPD Education: Meter Dose Inhaler/How to Use - Month 1: Provide COPD Education: Understanding COPD AND COPD Zones - Month 2: Provide COPD Education: COPD Education on Medications - What Inhalers Do - Month 2: Provide COPD SHRADDHA Education - Schedule Annual COPD Pulmonology Appointment Disposition Based on paediatrician, the following disposition is advised: No action needed Jenn Vidales RN September 26, 2024 11:16 AM [facility] 09-26-2024 History of Presen t illness Narrative Images from the original note were not included. [facility] Telephonic Outreach Provider Action/FYI Patient identified by Name and Date of . Discussed care with patient. Program Details Chronic Disease Management Status: Enrolled Effective Dates: 07/18/2024 - present Responsible Staff: Jenn Vidales RN Support and Services: Hypertension, Chronic Obstructive Pulmonary Disease (COPD), Congestive Heart Failure (CHF) Program Goals Targets Target Due Completed Completed By Outcome General education provided (managing stress, where to go/how to contact, etc.) 08/19/2024 -- -- -- Annual Medicare Wellness visit addressed 10/17/2024 -- -- -- Annual Pulmonology visit addressed 10/17/2024 -- -- -- Biannual Cardiology visit addressed 10/17/2024 -- -- -- Reinforced need to call office to get new Cardiology appointment Biannual PCP visit addressed 10/17/2024 -- -- -- Comprehensive COPD education provided 10/17/2024 -- -- -- Patient-stated goal addressed (add comment) 10/17/2024 -- -- -- Get back to working out Comprehensive CHF education provided 10/17/2024 08/15/2024 Jenn Vidales RN Complete Comprehensive HTN education provided 10/17/2024 07/31/2024 Jenn Vidales RN Complete HTN lab care gaps addressed 10/17/2024 07/31/2024 Jenn Vidales RN Complete/Scheduled Intake assessments completed: ADLs, Fall Risk, SDOH 08/19/2024 07/18/2024 Jenn Vidales RN Complete Assessments CDM Assessment Medications: Do you have any questions about taking your medications or which medications you should be taking?: No Do you need any medication refills at this time, including any of the medication you might take only when needed?: No Social: It can be normal to feel anxious or down during a time like this. Would you like to talk to a mental health professional about how you have been feeling?: No (has appointment in October) Symptoms: Are you experiencing any new or worsening symptoms that you need to talk about today?: No ADLs No documentation this encounter Fall Risk No documentation this encounter SDOH No documentation this encounter Interventions The following were addressed during this visit: - Schedule Biannual PCP Appointment - Schedule Annual Wellness Visit - Month 1: Provide General Education: Smoking Cessation - Month 1: Provide General Education: How to Contact Your Physician Team - Schedule Biannual Cardiology Appointment - Month 1: Provide COPD Education: Action Plan - Month 1: Provide COPD Education: Meter Dose Inhaler/How to Use - Month 1: Provide COPD Education: Understanding COPD & COPD Zones - Month 2: Provide COPD Education: COPD Education on Medications - What Inhalers Do - Month 2: Provide COPD SHRADDHA Education - Schedule Annual COPD Pulmonology Appointment Disposition Based on paediatrician, the following disposition is advised: No action needed Jenn Vidales RN September 26, 2024 11:16 AM documented in this encounter [facility] 09-26-2024 Note Patient Outreach ([facility]) ORION DUMONT ([id number]) 1950 M Date Time Provider Department 09/26/24 JENN VIDALES During your visit today, we recorded the following information about you: Jenn Vidales RN 09/26/2024 11:17 AM Signed [facility] Telephonic Outreach Provider Action/ Patient identified by Name and Date of . Discussed care with patient. Program Details Chronic Disease Management Status: Enrolled Effective Dates: 07/18/2024 - present Responsible Staff: Jenn Vidales, MICHAEL Support and Services: Hypertension, Chronic Obstructive Pulmonary Disease (COPD), Congestive Heart Failure (CHF) Program Goals Targets Target Due Completed Completed By Outcome General education provided (managing stress, where to go/how to contact, etc.) 08/19/2024 -- -- -- Annual Medicare Wellness visit addressed 10/17/2024 -- -- -- Annual Pulmonology visit addressed 10/17/2024 -- -- -- Biannual Cardiology visit addressed 10/17/2024 -- -- -- Reinforced need to call office to get new Cardiology appointment Biannual PCP visit addressed 10/17/2024 -- -- -- Comprehensive COPD education provided 10/17/2024 -- -- -- Patient-stated goal addressed (add comment) 10/17/2024 -- -- -- Get back to working out Comprehensive CHF education provided 10/17/2024 08/15/2024 Jenn Vidales RN Complete Comprehensive HTN education provided 10/17/2024 07/31/2024 Jenn Vidales RN Complete HTN lab care gaps addressed 10/17/2024 07/31/2024 Jenn Vidales RN Complete/Scheduled Intake assessments completed: ADLs, Fall Risk, SDOH 08/19/2024 07/18/2024 Jenn Vidales RN Complete Assessments CDM Assessment Medications: Do you have any questions about taking your medications or which medications you should be taking?: No Do you need any medication refills at this time, including any of the medication you might take only when needed?: No Social: It can be normal to feel anxious or down during a time like this. Would you like to talk to a mental health professional about how you have been feeling?: No (has appointment in October) Symptoms: Are you experiencing any new or worsening symptoms that you need to talk about today?: No ADLs No documentation this encounter Fall Risk No documentation this encounter SDOH No documentation this encounter Interventions The following were addressed during this visit: - Schedule Biannual PCP Appointment - Schedule Annual Wellness Visit - Month 1: Provide General Education: Smoking Cessation - Month 1: Provide General Education: How to Contact Your Physician Team - Schedule Biannual Cardiology Appointment - Month 1: Provide COPD Education: Action Plan - Month 1: Provide COPD Education: Meter Dose Inhaler/How to Use - Month 1: Provide COPD Education: Understanding COPD AND COPD Zones - Month 2: Provide COPD Education: COPD Education on Medications - What Inhalers Do - Month 2: Provide COPD SHRADDHA Education - Schedule Annual COPD Pulmonology Appointment Disposition Based on paediatrician, the following disposition is advised: No action needed Jenn Vidales RN September 26, 2024 11:16 AM Allergies As of Date: 09/26/2024 Noted Allergy Reaction RIVAROXABAN 03/02/2013 2 - Rash SULFA (SULFONAMIDE ANTIBIOTICS) 03/18/2008 5 - Intolerance 4 - Hives Comments: Pt says that he has had silvadene cream in the past after cardioversions without side effects ADHESIVE TAPE (ROSINS) 10/08/2009 2 - Rash NIACIN 05/12/2023 14 - Other: See Comments Comments: Itching, head lam WOOL 11/25/2009 9 - Itching WOOL 03/09/2010 9 - Itching DICLOFENAC SODIUM 02/01/2016 2 - Rash Comments: Fixed drug eruption Date Reviewed: 09/17/2024 Reviewed by: Josselin Maldonado MD - Fully Assessed Primary Visit Diagnosis:Stage 1 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 ([facility]) [J44.9] Order(s):PT ED PULMONARY [[id number]] Order #: [id number]: 1 Prescriptions as of 09/26/2024 - budesonide-formoterol (SYMBICORT) 160-4.5 mcg/actuation inhaler Inhale 2 puffs as instructed two times a day. - albuterol HFA (PROVENTIL HFA) 90 mcg/actuation inhaler Inhale 1-2 puffs as instructed four times a day as needed for wheezing/shortness of breath. - QUEtiapine (SEROQUEL) 50 mg tablet Take 1 tablet by mouth daily at bedtime. - busPIRone (BUSPAR) 15 mg tablet Take 1 tablet by mouth two times a day. - lamoTRIgine (LAMICTAL) 100 mg tablet Take 1 tablet by mouth once daily. - sertraline (ZOLOFT) 100 mg tablet Take 2 tablets by mouth once daily. - atorvastatin (LIPITOR) 20 mg tablet Take 1 tablet by mouth once daily. - bisoprolol (ZEBETA) 5 mg tablet Take 1 tablet by mouth once daily. - fludrocortisone (FLORINEF) 0.1 mg tablet Take 1 tablet by mouth once daily. - ciclopirox (LOPROX) 0.77 % cream Apply to affected area two times a day as needed. - pantoprazole DR (PROTONIX) 40 mg tablet Take 1 tablet by mo (more content not included)... [facility] 09-25-2024 Note HNO ID: [id number] Author: JENN VIDALES RN Service: ? Author Type: Registered Nurse Type: Progress Notes Filed: 09/25/2024 13:28 Note Text: [facility] Telephonic Outreach Provider Action/FYI He can not speak now. Agrees to call tomorrow Patient identified by Name and Date of . Discussed care with patient. Program Details Chronic Disease Management Status: Enrolled Effective Dates: 07/18/2024 - present Responsible Staff: Jenn Vidales RN Support and Services: Hypertension, Chronic Obstructive Pulmonary Disease (COPD), Congestive Heart Failure (CHF) Program Goals Targets Target Due Completed Completed By Outcome General education provided (managing stress, where to go/how to contact, etc.) 08/19/2024 -- -- -- Annual Medicare Wellness visit addressed 10/17/2024 -- -- -- Annual Pulmonology visit addressed 10/17/2024 -- -- -- Biannual Cardiology visit addressed 10/17/2024 -- -- -- Reinforced need to call office to get new Cardiology appointment Biannual PCP visit addressed 10/17/2024 -- -- -- Comprehensive COPD education provided 10/17/2024 -- -- -- Patient-stated goal addressed (add comment) 10/17/2024 -- -- -- Get back to working out Comprehensive CHF education provided 10/17/2024 08/15/2024 Jenn Vidales RN Complete Comprehensive HTN education provided 10/17/2024 07/31/2024 Jenn Vidales RN Complete HTN lab care gaps addressed 10/17/2024 07/31/2024 Jenn Vidales RN Complete/Scheduled Intake assessments completed: ADLs, Fall Risk, SDOH 08/19/2024 07/18/2024 Jenn Vidales RN Complete Assessments No documentation this encounter Interventions No checklist tasks for this episode were completed during this visit, and no tasks for this episode are pending completion. Jenn Vidales RN September 25, 2024 1:20 PM [facility] 09-25-2024 History of Presen t illness Narrative Images from the original note were not included. [facility] Care Path Telephonic Outreach Provider Action/FYI He can not speak now. Agrees to call tomorrow Patient identified by Name and Date of . Discussed care with patient. Program Details Chronic Disease Management Status: Enrolled Effective Dates: 07/18/2024 - present Responsible Staff: Jenn Vidales RN Support and Services: Hypertension, Chronic Obstructive Pulmonary Disease (COPD), Congestive Heart Failure (CHF) Program Goals Targets Target Due Completed Completed By Outcome General education provided (managing stress, where to go/how to contact, etc.) 08/19/2024 -- -- -- Annual Medicare Wellness visit addressed 10/17/2024 -- -- -- Annual Pulmonology visit addressed 10/17/2024 -- -- -- Biannual Cardiology visit addressed 10/17/2024 -- -- -- Reinforced need to call office to get new Cardiology appointment Biannual PCP visit addressed 10/17/2024 -- -- -- Comprehensive COPD education provided 10/17/2024 -- -- -- Patient-stated goal addressed (add comment) 10/17/2024 -- -- -- Get back to working out Comprehensive CHF education provided 10/17/2024 08/15/2024 Jenn Vidales RN Complete Comprehensive HTN education provided 10/17/2024 07/31/2024 Jenn Vidales RN Complete HTN lab care gaps addressed 10/17/2024 07/31/2024 Jenn Vidales RN Complete/Scheduled Intake assessments completed: ADLs, Fall Risk, SDOH 08/19/2024 07/18/2024 Jenn Vidales RN Complete Assessments No documentation this encounter Interventions No checklist tasks for this episode were completed during this visit, and no tasks for this episode are pending completion. Jenn Vidales RN September 25, 2024 1:20 PM documented in this encounter [facility] 09-25-2024 Note Patient Outreach ([facility]) ORION DUMONT ([id number]) 1950 M Date Time Provider Department 09/25/24 JENN VIDALES During your visit today, we recorded the following information about you: Jenn Vidales RN 09/25/2024 1:28 PM Signed CD Care Path Telephonic Outreach Provider Action/FYI He can not speak now. Agrees to call tomorrow Patient identified by Name and Date of . Discussed care with patient. Program Details Chronic Disease Management Status: Enrolled Effective Dates: 07/18/2024 - present Responsible Staff: Jenn Vidales RN Support and Services: Hypertension, Chronic Obstructive Pulmonary Disease (COPD), Congestive Heart Failure (CHF) Program Goals Targets Target Due Completed Completed By Outcome General education provided (managing stress, where to go/how to contact, etc.) 08/19/2024 -- -- -- Annual Medicare Wellness visit addressed 10/17/2024 -- -- -- Annual Pulmonology visit addressed 10/17/2024 -- -- -- Biannual Cardiology visit addressed 10/17/2024 -- -- -- Reinforced need to call office to get new Cardiology appointment Biannual PCP visit addressed 10/17/2024 -- -- -- Comprehensive COPD education provided 10/17/2024 -- -- -- Patient-stated goal addressed (add comment) 10/17/2024 -- -- -- Get back to working out Comprehensive CHF education provided 10/17/2024 08/15/2024 Jenn Vidales RN Complete Comprehensive HTN education provided 10/17/2024 07/31/2024 Jenn Vidales RN Complete HTN lab care gaps addressed 10/17/2024 07/31/2024 Jenn Vidales RN Complete/Scheduled Intake assessments completed: ADLs, Fall Risk, SDOH 08/19/2024 07/18/2024 Jenn Vidales RN Complete Assessments No documentation this encounter Interventions No checklist tasks for this episode were completed during this visit, and no tasks for this episode are pending completion. Jenn Vidales RN September 25, 2024 1:20 PM Allergies As of Date: 09/25/2024 Noted Allergy Reaction RIVAROXABAN 03/02/2013 2 - Rash SULFA (SULFONAMIDE ANTIBIOTICS) 03/18/2008 5 - Intolerance 4 - Hives Comments: Pt says that he has had silvadene cream in the past after cardioversions without side effects ADHESIVE TAPE (ROSINS) 10/08/2009 2 - Rash NIACIN 05/12/2023 14 - Other: See Comments Comments: Itching, head lam WOOL 11/25/2009 9 - Itching WOOL 03/09/2010 9 - Itching DICLOFENAC SODIUM 02/01/2016 2 - Rash Comments: Fixed drug eruption Date Reviewed: 09/17/2024 Reviewed by: Josselin Maldonado MD - Fully Assessed Prescriptions as of 09/25/2024 - budesonide-formoterol (SYMBICORT) 160-4.5 mcg/actuation inhaler Inhale 2 puffs as instructed two times a day. - albuterol HFA (PROVENTIL HFA) 90 mcg/actuation inhaler Inhale 1-2 puffs as instructed four times a day as needed for wheezing/shortness of breath. - QUEtiapine (SEROQUEL) 50 mg tablet Take 1 tablet by mouth daily at bedtime. - busPIRone (BUSPAR) 15 mg tablet Take 1 tablet by mouth two times a day. - lamoTRIgine (LAMICTAL) 100 mg tablet Take 1 tablet by mouth once daily. - sertraline (ZOLOFT) 100 mg tablet Take 2 tablets by mouth once daily. - atorvastatin (LIPITOR) 20 mg tablet Take 1 tablet by mouth once daily. - bisoprolol (ZEBETA) 5 mg tablet Take 1 tablet by mouth once daily. - fludrocortisone (FLORINEF) 0.1 mg tablet Take 1 tablet by mouth once daily. - ciclopirox (LOPROX) 0.77 % cream Apply to affected area two times a day as needed. - pantoprazole DR (PROTONIX) 40 mg tablet Take 1 tablet by mouth daily before breakfast. Take on empty stomach, 1/2 hr before meal. - oxybutynin XL (DITROPAN XL) 5 mg 24 hr tablet Take 1 tablet by mouth once daily. - digoxin (LANOXIN) 250 mcg (0.25 mg) tablet take 1 tablet by mouth every day - cholecalciferol (VITAMIN D3) 50 mcg (2,000 unit) tablet Take 1 tablet by mouth daily with dinner. - calcium citrate-vitamin D3 (CITRACAL PLUS D) 315 mg-5 mcg (200 unit) tab Take 1 tablet by mouth twice daily with meals. With each meal. - Xhypn3-MzlZ8-X74-E-FA-Fish Oil [id number] up-ma-wrk-mcg cap Take 600 mg by mouth once daily. - pyridoxine (VITAMIN B-6) 100 mg tablet Take 2 tablets by mouth twice daily. - docusate sodium 100 mg capsule Take 1 capsule by mouth twice daily as needed for Constipation. Meds Comments as of 04/11/2012: Problem List As Of Date 09/25/2024 Noted Resolved Other specified disease of sebaceous glands [L7*06/11/2008 05/05/2021 Corns and callosities [L84] 06/11/2008 05/05/2021 Contusion of foot [S90.30XA] 06/11/2008 05/05/2021 Eating disorder, unspecified [F50.9] 07/01/2009 05/12/2023 Generalized Anxiety Disorder [F41.1] 07/01/2009 Major Depressive Disorder, Recurrent Episode, M*07/01/2009 Morbid obesity (HCC) [E66.01] 10/14/2009 02/20/2014 Encounter for dietary counseling and surveillan*10/14/2009 05/05/2021 DVT (deep venous thrombosis) (HCC) [I82.409] 01/12/2010 0 (more content not included)... [facility] 09-23-2024 Miscellaneous Notes Discussed patient's concerns with VV visit today with Katya Salmon. She has been able to assist the patient in scheduling a sooner visit with the provider on October 08. Patient called to reschedule failed VV appointment with psychiatrist. Patient requested in office appointment and was scheduled for provider's first available on 11/12/24. Patient has been added to wait list. documented in this encounter [facility] 09-23-2024 Telephone encounter Note Discussed patient's concerns with VV visit today with Katya Salmon. She has been able to assist the patient in scheduling a sooner visit with the provider on October 08. [facility] 09-23-2024 Telephone encounter Note Patient called to reschedule failed VV appointment with psychiatrist. Patient requested in office appointment and was scheduled for provider's first available on 11/12/24. Patient has been added to wait list. [facility] 09-23-2024 Note HNO ID: [id number] Author: QUINCY ALONZO APRN.FACING GRINDER Service: ? Author Type: Nurse Practitioner Type: Progress Notes Filed: 09/23/2024 10:42 Note Text: Patient had problems connecting to the audio portion of the virtual visit. Will be offered an in person appointment instead. [facility] 09-23-2024 History of Presen t illness Narrative Patient had problems connecting to the audio portion of the virtual visit. Will be offered an in person appointment instead. documented in this encounter [facility] 09-20-2024 Telephone encounter Note Faxed Aleyda Harris LPN [facility] 09-20-2024 Miscellaneous Notes Faxed Aleyda Harris LPN Pt is requesting Symbicort 160/4.5 mcg 3.6 grams to be faxed to [employer] Fax Pt id # is [id number] documented in this encounter [facility] 09-19-2024 Telephone encounter Note Pt is requesting Symbicort 160/4.5 mcg 3.6 grams to be faxed to [employer] Fax Pt id # is [id number] [facility] 09-19-2024 Telephone encounter Note See MyChart message Aleyda Harris LPN [facility] 09-19-2024 Miscellaneous Notes See MyChart message Aleyda Harris LPN Patient called into office stating that he spoke with insurance and bero is 460 for 90 day, Symbicort is 209.36 for 90 days and fluticasone is 41.81 for 90 days. Please and contact with recommendation. Patient states you may mychart, or call and leave VM. Makenna Vigil LPN documented in this encounter [facility] 09-18-2024 Telephone encounter Note Called patient. Verified name and date of . Patient informed of results- verbalizes understanding. Adin Pleitez LPN [facility] 09-18-2024 Miscellaneous Notes Called patient. Verified name and date of . Patient informed of results- verbalizes understanding. Adin Pleitez LPN ----- Message from Antonio Stahl PA-C sent at 09/18/2024 1:52 PM EDT ----- Microscopic was negative for RBC's documented in this encounter [facility] 09-18-2024 Telephone encounter Note ----- Message from Antonio Sthal PA-C sent at 09/18/2024 1:52 PM EDT ----- Microscopic was negative for RBC's [facility] 09-17-2024 Telephone encounter Note Patient called into office stating that he spoke with insurance and bero is 460 for 90 day, Symbicort is 209.36 for 90 days and fluticasone is 41.81 for 90 days. Please and contact with recommendation. Patient states you may mychart, or call and leave . Makenna Vigil LPN [facility] Work Phone: 09-17-2024 Instructions Josselin Maldonado MD - 09/17/2024 1:29 PM EDT Breo Ellipta Dulera Advair HFA Symbicort Wixela Generic Symbicort documented in this encounter [facility] 09-17-2024 Note HNO ID: [id number] Author: VALE LAINEZ RPFT Service: ? Author Type: Respiratory Therapist Type: Procedures Filed: 09/17/2024 13:14 Note Text: RESPIRATORY THERAPY ORAL EXHALED NITRIC OXIDE SERVICE DATE: 09/17/2024 SERVICE TIME: 1:14 PM Oral Exhaled Nitric Oxide measurement: 12.0 (ppb) Normal: Adult <25 ppb, pediatric (<12 years) <20 ppb High Normal / Increased: Adult 25-50 ppb, pediatric (<12 years) 20-35 ppb Moderately raised exhaled Nitric Oxide may indicate underlying inflammation, but note that: Cold and influenza can raise exhaled Nitric Oxide and some patients have higher baseline exhaled Nitric Oxide levels than others. High: Adult >50 ppb, pediatric (<12 years) >35 ppb Indicative of ongoing eosinophilic inflammation. Symptomatic patient likely to respond to steroids. Possible causes (if already on steroids): Poor compliance, recent allergen exposure, steroid dose inadequate, and steroid resistance. Note that not all patients with high exhaled nitric oxide levels display symptoms. Oral Exhaled Nitric Oxide measurement (Previous Encounters) Test Date Oral Exhaled Nitric Oxide (ppb) 09/17/2024 12.0 NAME: WILLY Fitzgerald PATIENT NAME: Orion Dumont DATE: September 17, 2024 TIME: 1:14 PM [facility] 09-17-2024 Procedure note Associated Ord er(s): NITRIC OXIDE, EXHALED RESPIRATORY THERAPY ORAL EXHALED NITRIC OXIDE SERVICE DATE: 09/17/2024 SERVICE TIME: 1:14 PM Oral Exhaled Nitric Oxide measurement: 12.0 (ppb) Normal: Adult <25 ppb, pediatric (<12 years) <20 ppb High Normal / Increased: Adult 25-50 ppb, pediatric (<12 years) 20-35 ppb Moderately raised exhaled Nitric Oxide may indicate underlying inflammation, but note that: Cold and influenza can raise exhaled Nitric Oxide and some patients have higher baseline exhaled Nitric Oxide levels than others. High: Adult >50 ppb, pediatric (<12 years) >35 ppb Indicative of ongoing eosinophilic inflammation. Symptomatic patient likely to respond to steroids. Possible causes (if already on steroids): Poor compliance, recent allergen exposure, steroid dose inadequate, and steroid resistance. Note that not all patients with high exhaled nitric oxide levels display symptoms. Oral Exhaled Nitric Oxide measurement (Previous Encounters) Test Date Oral Exhaled Nitric Oxide (ppb) 09/17/2024 12.0 NAME: WILLY Fitzgerald PATIENT NAME: Orion Dumont DATE: September 17, 2024 TIME: 1:14 PM [facility] 09-17-2024 Procedure note Associated Ord er(s): NITRIC OXIDE, EXHALED RESPIRATORY THERAPY ORAL EXHALED NITRIC OXIDE SERVICE DATE: 09/17/2024 SERVICE TIME: 1:14 PM Oral Exhaled Nitric Oxide measurement: 12.0 (ppb) Normal: Adult <25 ppb, pediatric (<12 years) <20 ppb High Normal / Increased: Adult 25-50 ppb, pediatric (<12 years) 20-35 ppb Moderately raised exhaled Nitric Oxide may indicate underlying inflammation, but note that: Cold and influenza can raise exhaled Nitric Oxide and some patients have higher baseline exhaled Nitric Oxide levels than others. High: Adult >50 ppb, pediatric (<12 years) >35 ppb Indicative of ongoing eosinophilic inflammation. Symptomatic patient likely to respond to steroids. Possible causes (if already on steroids): Poor compliance, recent allergen exposure, steroid dose inadequate, and steroid resistance. Note that not all patients with high exhaled nitric oxide levels display symptoms. Oral Exhaled Nitric Oxide measurement (Previous Encounters) Test Date Oral Exhaled Nitric Oxide (ppb) 09/17/2024 12.0 NAME: WILLY Fitzgerald PATIENT NAME: Orion Dumont DATE: September 17, 2024 TIME: 1:14 PM documented in this encounter [facility] 09-17-2024 History of Presen t illness Narrative Images from the original note were not included. e. Respiratory [place] Note Patient name: Orion Dumont PCP: Florian Gonzalez MD CC: Cough HPI: Orion Dumont 73 year old male non smoker with PMH significant for AF, HTN, HLD, anxiety, VTE on AC, h/o IVC filter, obesity s/p gastric bypass complicated by non-healing wound, LEXIE not using CPAP, h/o COPD last seen in pulmonary clinic in 2019 for pre-op clearance for colonoscopy. Currently using albuterol as needed. He states he was doing well until May of this past year when he may have had a upper respiratory infection. He had severe coughing with coughing jags, mucus production that was clear to yellow in color, occasional wheezing but no significant shortness of breath. Used albuterol but no significant improvement. He was treated with several courses of steroids and azithromycin which improved his symptoms but his cough never completely resolved. His cough is currently nonproductive. He has not noted any significant triggers. Cough does not interfere with his sleep. Pulmonary function test today shows small airways obstruction which improves with bronchodilator and normal FEV1 with marked improvement postbronchodilator. No GERD. DATA: PFT 2020: PFT today: Normal [facility] / Diagnostic Studies: DATE OF EXAM: Aug 29 2024 5:25PM WOX [id number] - XR CHEST 2V FRONTAL/LAT / CLINICAL HISTORY: Stage 1 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 ([facility]) MQ: [id number] EXAM DATE/TIME: 08/29/2024 5:25 PM COMPARISON: 05/28/2024 RESULT: Lines, tubes, and devices: Atrial appendage device again noted Lungs and pleura: No consolidation. No lung mass. No pleural effusion. No pneumothorax. Cardiomediastinal silhouette: Normal cardiomediastinal silhouette. Bones and soft tissues: Unremarkable. IMPRESSION: No acute radiographic abnormality. Unremarkable PAST MEDICAL HISTORY Diagnosis Date Adhesive capsulitis of shoulder 05/21/2014 Adjustment disorder with depressed mood hosp 95' Arthritis Atrial fibrillation ([facility]) 11/03/2009 s/p ablation, on coumadin, OFF now. 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 Currently chest pain free; However, there is a high chance of recurrence since treatment has been on hold. Giving him steroid might actually put him at more risk of re bleeding. NSAID'S not an option for now. Plan: Consider Colchicine. If patient is to be restarted on AC, Colchicine has DVT (deep venous thrombosis) ([facility]) 01/12/2010 S/P IVC filter, occurred post-op, on anticoagulation (for a fib) Eating disorder, unspecified 07/01/2009 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 Essential hypertension, benign Fatty liver 11/03/2009 by us Gall stones, common bile duct 12/07/2013 Generalized anxiety disorder 07/01/2009 GI bleed 06/29/2012 Hip joint replacement by other means 09/21/2012 Hyperlipidemia 08/25/2020 Impaired fasting glucose 05/05/2021 Impotence of organic origin Iron deficiency anemia 08/02/2012 emt intermediate current use of anticoagulant 02/09/2015 Major depressive disorder, recurrent episode, moderate (HCC) 07/01/2009 Morbid obesity (HCC) 04/21/2009 stated BMI 51.1 Ht: 75 Wt: 410 lbs MSSA (methicillin susceptible Staphylococcus aureus) infection 07/03/2012 Hx: MSSA infection of serosal fluids collection in L chest wall. S/P I/D on 06/19. On IV oxacillin till and then dc'ed on 06/23 with a 10 day course of Dicloxacillin. 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 Currently chest pain free; Talked with cardiology - said no need for treatment is patient is treatment free Plan: Continue to monitor Postsurgical dumping syndrome 08/30/2012 Pulmonary embolism (HCC) 03/01/2010 Retinal detachment OD Syncope 11/02/2018 Torn rotator cuff Upper GI bleed 07/03/2012 Hx: UGIB presenting to OSH on 06/29 with Melanotic stool; EGD showed jejunal pouch ulcers and dieulafoy lesion which were clipped and injected Given IV PPI Assessment: UGI 2/2 to Dieulafoy and NSAID induced ulcers. Plan: Monitor H&H Q8H, transfuse as necessary, keep Hb>8 Consult IR for further intervention Protonix gtt for now, will switch to protonix 40mg bid when Hb is stable after 48-72 salma UTI (lower urinary tract infection) Varicose veins 2010 Varicose veins of both legs with edema 2010 Vitamin D deficiency 08/02/2012 ALLERGIES Allergen Reactions Rivaroxaban Rash Sulfa (Sulfonamide * Intolerance, Hives Pt says that he has had silvadene cream in the past after cardioversions without side effects Adhesive Tape (Magalie* Rash Niacin Other: See Comments Itching, head lam Wool Itching Wool Itching Diclofenac Sodium Rash Fixed drug eruption albuterol HFA (PROVENTIL HFA) 90 mcg/actuation inhaler Inhale 1-2 puffs as instructed four times a day as needed for wheezing/shortness of breath. QUEtiapine (SEROQUEL) 50 mg tablet Take 1 tablet by mouth daily at bedtime. busPIRone (BUSPAR) 15 mg tablet Take 1 tablet by mouth two times a day. lamoTRIgine (LAMICTAL) 100 mg tablet Take 1 tablet by mouth once daily. sertraline (ZOLOFT) 100 mg tablet Take 2 tablets by mouth once daily. atorvastatin (LIPITOR) 20 mg tablet Take 1 tablet by mouth once daily. bisoprolol (ZEBETA) 5 mg tablet Take 1 tablet by mouth once daily. fludrocortisone (FLORINEF) 0.1 mg tablet Take 1 tablet by mouth once daily. ciclopirox (LOPROX) 0.77 % cream Apply to affected area two times a day as needed. pantoprazole DR (PROTONIX) 40 mg tablet Take 1 tablet by mouth daily before breakfast. Take on empty stomach, 1/2 hr before meal. oxybutynin XL (DITROPAN XL) 5 mg 24 hr tablet Take 1 tablet by mouth once daily. digoxin (LANOXIN) 250 mcg (0.25 mg) tablet take 1 tablet by mouth every day cholecalciferol (VITAMIN D3) 50 mcg (2,000 unit) tablet Take 1 tablet by mouth daily with dinner. calcium citrate-vitamin D3 (CITRACAL PLUS D) 315 mg-5 mcg (200 unit) tab Take 1 tablet by mouth twice daily with meals. With each meal. Jfpby1-OlaS5-K61-E-FA-Fish Oil [id number] xh-tl-csk-mcg cap Take 600 mg by mouth once daily. pyridoxine (VITAMIN B-6) 100 mg tablet Take 2 tablets by mouth twice daily. docusate sodium 100 mg capsule Take 1 capsule by mouth twice daily as needed for Constipation. 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 Pets: None FAMILY HISTORY Problem Relation Age of Onset Diabetes Mother other (Other) Mother Ischemic Heart Disease Father Diabetes Sister Cataract Sister Detached Retina Sister Asthma No Family History PAST SURGICAL HISTORY Procedure Laterality Date APPENDECTOMY HX ARTHRP ACETBLR/PROX FEM PROSTC AGRFT/ALGRFT 1993 left BACK SURGERY HX CARDIOVERSION CHOLECYSTECTOMY 11/18/2013 COLONOSCOPY 02/22/2023 repeat 10 years COLONOSCOPY GEN ANES 04/20/2020 CYSTO BLADDER W/URETERAL CATHETERIZATION 01/30/2010 CYSTOSCOPY, RETROPYELOGRAM performed by RADHA OLIVAREZ at OR CYSTO W/INSERT URETERAL STENT 01/30/2010 CYSTOSCOPY, INSERTION STENT URETERAL J performed by RADHA OLIVAREZ at OR CYSTOURETHROSCOPY 06/16/2017 Cystoscopy DISKECTOMY, LUMBAR, SINGLE SP 1982 L4-5 EGD 04/20/2020 GASTRIC BYPASS HX 2008 w/ complications. JOINT REPLACEMENT HX Bilateral Hips NEPHROLITHOTOMY REMOVAL STAGE 1 05/02/2012 PAST SURGICAL HISTORY OF 1967 left hip pin PAST SURGICAL HISTORY OF 04/23/2012 heart surgery PAST SURGICAL HISTORY OF 06/04/2012 stitches for broken blood vesel in rectum REDUCE BOWEL OBSTRUCTION 06/24/2010 Performed by RAN REPAIR RETINAL DETACHMENT SCLERAL BUCKLING 10/2009 od Scleral Buckle REPAIR RETINAL DETACHMENT SCLERAL BUCKLING 08/05/2013 SB (Scleral Buckle)/ cyro os REVISE MEDIAN N/CARPAL TUNNEL SURG Left 10/2020 SESAMOIDECTOMY, THUMB/FINGER Left 06/30/2022 Left Thumb arthroplasty VITRECTOMY MECHANICAL PARS PLANA 09/03/2013 PPV / EL / gas OS PMH, Social history, family history and surgical history reviewed and updated in EMR REVIEW OF SYSTEMS: CONSTITUTIONAL: No fevers, chills, nightsweats, unintended weight loss HEENT: Rhinorrhea and sneezing. EYES: No itchy eyes CARDIOVASCULAR: No chest pain, dyspnea, palpitations, orthopnea, edema. PULM: See HPI GI: No GERD PSY: Sees a psychiatrist INTEGUMENTARY: No rashes, hives or eczema PHYSICAL EXAMINATION: BP 132/68 Pulse 76 Resp 16 Ht 6' 1.425 (1.87m) Wt 233 lb (105.7kg) SpO2 98% BMI 30.39 kg/(m^2). General Appearance: Age-appropriate male, NAD. Skin: Skin color, texture, turgor normal, no suspicious rashes or lesions. Head: Normocephalic, no masses, lesions, tenderness or abnormalities. Oropharynx: No oral lesions, erythema or posterior pharyngeal cobblestoning. Neck: No masses or adenopathy. Lungs: Not labored, normal to percussion, no wheezes or crackles. Heart: Regular rate and rhythm, no murmurs. Extremities: Nonpitting edema, varicosities, no clubbing. Assessment/Plan: 1. Cough variant asthma - Patient does not have COPD. Pulmonary function testing and clinical history more consistent with cough variant asthma -Recommend starting ICS/LABA. Patient given a list of inhalers check with his insurance for cost. From what I can assess via the computer, Rylan would be tier 4 whereas the others are tier 5. He will contact my office for a prescription Josselin Maldonado MD [facility] [place] documented in this encounter [facility] 09-17-2024 Note HNO ID: [id number] Author: JOSSELIN MALDONADO MD Service: ? Author Type: Physician Type: Progress Notes Filed: 09/17/2024 14:43 Note Text: e. [facility] [place] Note Patient name: Orion Dumont PCP: Florian Gonzalez MD CC: Cough HPI: Orion Dumont 73 year old male non smoker with PMH significant for AF, HTN, HLD, anxiety, VTE on AC, h/o IVC filter, obesity s/p gastric bypass complicated by non-healing wound, LEXIE not using CPAP, h/o COPD last seen in pulmonary clinic in 2019 for pre-op clearance for colonoscopy. Currently using albuterol as needed. He states he was doing well until May of this past year when he may have had a upper respiratory infection. He had severe coughing with coughing jags, mucus production that was clear to yellow in color, occasional wheezing but no significant shortness of breath. Used albuterol but no significant improvement. He was treated with several courses of steroids and azithromycin which improved his symptoms but his cough never completely resolved. His cough is currently nonproductive. He has not noted any significant triggers. Cough does not interfere with his sleep. Pulmonary function test today shows small airways obstruction which improves with bronchodilator and normal FEV1 with marked improvement postbronchodilator. No GERD. DATA: PFT 2020: PFT today: Normal [facility] Imaging / Diagnostic Studies: DATE OF EXAM: Aug 29 2024 5:25PM WOX [id number] - XR CHEST 2V FRONTAL/LAT / CLINICAL HISTORY: Stage 1 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 ([facility]) MQ: [id number] EXAM DATE/TIME: 08/29/2024 5:25 PM COMPARISON: 05/28/2024 RESULT: Lines, tubes, and devices: Atrial appendage device again noted Lungs and pleura: No consolidation. No lung mass. No pleural effusion. No pneumothorax. Cardiomediastinal silhouette: Normal cardiomediastinal silhouette. Bones and soft tissues: Unremarkable. IMPRESSION: No acute radiographic abnormality. Unremarkable PAST MEDICAL HISTORY Diagnosis Date Adhesive capsulitis of shoulder 05/21/2014 Adjustment disorder with depressed mood hosp 95' Arthritis Atrial fibrillation ([facility]) 11/03/2009 s/p ablation, on coumadin, OFF now. 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 Currently chest pain free; However, there is a high chance of recurrence since treatment has been on hold. Giving him steroid might actually put him at more risk of re bleeding. NSAID'S not an option for now. Plan: Consider Colchicine. If patient is to be restarted on AC, Colchicine has DVT (deep venous thrombosis) (HCC) 01/12/2010 S/P IVC filter, occurred post-op, on anticoagulation (for a fib) Eating disorder, unspecified 07/01/2009 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 Essential hypertension, benign Fatty liver 11/03/2009 by us Gall stones, common bile duct 12/07/2013 Generalized anxiety disorder 07/01/2009 GI bleed 06/29/2012 Hip joint replacement by other means 09/21/2012 Hyperlipidemia 08/25/2020 Impaired fasting glucose 05/05/2021 Impotence of organic origin Iron deficiency anemia 08/02/2012 skilled nursing current use of anticoagulant 02/09/2015 Major depressive disorder, recurrent episode, moderate (HCC) 07/01/2009 Morbid obesity (HCC) 04/21/2009 stated BMI 51.1 Ht: 75 Wt: 410 lbs MSSA (methicillin susceptible Staphylococcus aureus) infection 07/03/2012 Hx: MSSA infection of serosal fluids collection in L chest wall. S/P I/D on 06/19. On IV oxacillin till and then dc'ed on 06/23 with a 10 day course of Dicloxacillin. However; pt did not take Abx after 06/28 Plan: Dicloxacillin 500 mg QID for 10 days Nephrolithiasis 2009 Ca Ox OA (osteoarthritis) Orthostatic hypotension 08/30/2012 LEXIE (obstructive sleep apnea) Other and unspecified hyperlipidemia Other and unspecified postsurgical nonabsorption 08/25/2010 Pain in joint, multiple sites neck, shoulders Pericarditis (HCC) 07/04/2012 Post Mini Maze procedure Treated with Indomethacin (Inpatient), (more content not included)... [facility] 09-14-2024 Telephone encounter Note Lab results UA back. I called the patient to inform him of the results. UA not indicative of UTI. Urine culture not back yet. No need for antibiotics at this point. Recommend follow-up with PCP next week for further eval. [facility] Work Phone: 09-14-2024 Miscellaneous Notes Lab results UA back. I called the patient to inform him of the results. UA not indicative of UTI. Urine culture not back yet. No need for antibiotics at this point. Recommend follow-up with PCP next week for further eval. documented in this encounter [facility] 09-14-2024 Note HNO ID: [id number] Author: SHYANNE CORONA RN Service: ? Author Type: Registered Nurse Type: Progress Notes Filed: 09/14/2024 09:51 Note Text: CDM ESCALATION HRTIC Escalation Follow Up Pt states after eating last night he felt like it wanted to come up, states his urine is loreta foamy today, continues to have back pain (chronic), slept well last night. Encouraged pt to call H@H with worsening symptoms. Message received via: Virtualist Escalation Follow-Up Patient escalated to Virtualist on: 09/13/24 Reason for escalation: Urinary Frequency Virtualist intervention: urine for culture and UA Contact made with patient: Yes Patient identified by name and date of . Discussed care with patient Based on paediatrician the following disposition is advised: No symptoms or symptoms present, not severe. Routed to: No Action Needed SHRADDHA Education Provided this Outreach: No SHYANNE CORONA RN September 14, 2024 9:46 AM [facility] 09-14-2024 History of Presen t illness Narrative CDM ESCALATION HRTIC Escalation Follow Up Pt states after eating last night he felt like it wanted to come up, states his urine is loreta foamy today, continues to have back pain (chronic), slept well last night. Encouraged pt to call H@H with worsening symptoms. Message received via: Virtualist Escalation Follow-Up Patient escalated to Virtualist on: 09/13/24 Reason for escalation: Urinary Frequency Virtualist intervention: urine for culture and UA Contact made with patient: Yes Patient identified by name and date of . Discussed care with patient Based on paediatrician the following disposition is advised: No symptoms or symptoms present, not severe. Routed to: No Action Needed SHRADDHA Education Provided this Outreach: No SHYANNE CORONA RN September 14, 2024 9:46 AM documented in this encounter [facility] 09-14-2024 Note Patient Outreach (AM [facility]) ORION DUMONT ([id number]) 1950 M Date Time Provider Department 09/14[facility] [place] today, we recorded the following information about you: Shyanne Corona RN 09/14/2024 9:51 AM Signed CDM ESCALATION HRTIC Escalation Follow Up Pt states after eating last night he felt like it wanted to come up, states his urine is loreta foamy today, continues to have back pain (chronic), slept well last night. Encouraged pt to call H@H with worsening symptoms. Message received via: Virtualist Escalation Follow-Up Patient escalated to Virtualist on: 09/13/24 Reason for escalation: Urinary Frequency Virtualist intervention: urine for culture and UA Contact made with patient: Yes Patient identified by name and date of . Discussed care with patient Based on paediatrician the following disposition is advised: No symptoms or symptoms present, not severe. Routed to: No Action Needed SHRADDHA Education Provided this Outreach: No SHYANNE CORONA RN September 14, 2024 9:46 AM Allergies As of Date: 09/14/2024 Noted Allergy Reaction RIVAROXABAN 03/02/2013 2 - Rash SULFA (SULFONAMIDE ANTIBIOTICS) 03/18/2008 5 - Intolerance 4 - Hives Comments: Pt says that he has had silvadene cream in the past after cardioversions without side effects ADHESIVE TAPE (ROSINS) 10/08/2009 2 - Rash NIACIN 05/12/2023 14 - Other: See Comments Comments: Itching, head lam WOOL 11/25/2009 9 - Itching WOOL 03/09/2010 9 - Itching DICLOFENAC SODIUM 02/01/2016 2 - Rash Comments: Fixed drug eruption Date Reviewed: 08/29/2024 Reviewed by: Teri Cummings LPN - Fully Assessed Prescriptions as of 09/14/2024 - albuterol HFA (PROVENTIL HFA) 90 mcg/actuation inhaler Inhale 1-2 puffs as instructed four times a day as needed for wheezing/shortness of breath. - QUEtiapine (SEROQUEL) 50 mg tablet Take 1 tablet by mouth daily at bedtime. - busPIRone (BUSPAR) 15 mg tablet Take 1 tablet by mouth two times a day. - lamoTRIgine (LAMICTAL) 100 mg tablet Take 1 tablet by mouth once daily. - sertraline (ZOLOFT) 100 mg tablet Take 2 tablets by mouth once daily. - atorvastatin (LIPITOR) 20 mg tablet Take 1 tablet by mouth once daily. - bisoprolol (ZEBETA) 5 mg tablet Take 1 tablet by mouth once daily. - fludrocortisone (FLORINEF) 0.1 mg tablet Take 1 tablet by mouth once daily. - ciclopirox (LOPROX) 0.77 % cream Apply to affected area two times a day as needed. - pantoprazole DR (PROTONIX) 40 mg tablet Take 1 tablet by mouth daily before breakfast. Take on empty stomach, 1/2 hr before meal. - oxybutynin XL (DITROPAN XL) 5 mg 24 hr tablet Take 1 tablet by mouth once daily. - digoxin (LANOXIN) 250 mcg (0.25 mg) tablet take 1 tablet by mouth every day - cholecalciferol (VITAMIN D3) 50 mcg (2,000 unit) tablet Take 1 tablet by mouth daily with dinner. - calcium citrate-vitamin D3 (CITRACAL PLUS D) 315 mg-5 mcg (200 unit) tab Take 1 tablet by mouth twice daily with meals. With each meal. - [id number]-FA-Fish Oil [id number] cap Take 600 mg by mouth once daily. - pyridoxine (VITAMIN B-6) 100 mg tablet Take 2 tablets by mouth twice daily. - docusate sodium 100 mg capsule Take 1 capsule by mouth twice daily as needed for Constipation. Meds Comments as of 04/11/2012: Problem List As Of Date 09/14/2024 Noted Resolved Other specified disease of sebaceous glands [L7*06/11/2008 05/05/2021 Corns and callosities [L84] 06/11/2008 05/05/2021 Contusion of foot [S90.30XA] 06/11/2008 05/05/2021 Eating disorder, unspecified [F50.9] 07/01/2009 05/12/2023 Generalized Anxiety Disorder [F41.1] 07/01/2009 Major Depressive Disorder, Recurrent Episode, M*07/01/2009 Morbid obesity (HCC) [E66.01] 10/14/2009 02/20/2014 Encounter for dietary counseling and surveillan*10/14/2009 05/05/2021 DVT (deep venous thrombosis) ([facility]) [I82.409] 01/12/2010 05/05/2021 Atrial fibrillation [I48.91] 11/03/2009 11/05/2018 Pulmonary embolism (HCC) [I26.99] 03/01/2010 05/05/2021 Retinal detachment with retinal defect, unspeci*06/14/2010 05/05/2021 Anticoagulation monitoring, INR range 2-3 [Z79.*06/14/2010 09/28/2012 LEXIE (obstructive sleep apnea) [G47.33] 06/14/2010 Hypomagnesemia [E83.42] 06/15/2010 05/05/2021 Hypokalemia [E87.6] 06/16/2010 05/05/2021 Other and unspecified postsurgical nonabsorptio*08/25/2010 05/05/2021 Wound check, abscess [Z51.89] 08/25/2010 05/05/2021 Varicose veins of both legs with edema [I83.893]2010 Anticoagulation management encounter [Z51.81, Z*2010 05/05/2021 skilled nursing (current) use of anticoagulants [Z79.*03/18/2011 05/05/2021 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 [facility] 09-13-2024 Note HNO ID: [id number] Author: JENN VIDALES RN Service: ? Author Type: Registered Nurse Type: Progress Notes Filed: 09/13/2024 15:44 Note Text: Value based Operations Care Management Heart Failure Guideline Directed Medical Therapy (GDMT) Program Provider Action / FYI: Chart Review Guideline Directed Medical Therapy (GDMT) Program Last HF admission: unknown GDMT Score: 2 Last Echocardiogram: 05/17/23 Ejection Fraction: 55-60% Basic Metabolic Panel (BMP): cmp 04/23/24 Estimated Glomerular Filtration Rate (eGFR): 91 N-terminal pro B-type natriuretic peptide (NT proBNP): 05/03 Heart Failure (HF) Diagnosis: 08/15/22 Heart Failure Status: HFpEF - HF diagnosis, EF >=40%, non-dialysis Action Taken: GDMT score is <=6 and EF >40% - Continued Management via CHF Care Path Jenn Vidales RN September 13, 2024 3:44 PM [facility] 09-13-2024 History of Presen t illness Narrative Value based Operations Care Management Heart Failure Guideline Directed Medical Therapy (GDMT) Program Provider Action / FYI: Chart Review Guideline Directed Medical Therapy (GDMT) Program Last HF admission: unknown GDMT Score: 2 Last Echocardiogram: 05/17/23 Ejection Fraction: 55-60% Basic Metabolic Panel (BMP): cmp 04/23/24 Estimated Glomerular Filtration Rate (eGFR): 91 N-terminal pro B-type natriuretic peptide (NT proBNP): 05/03 Heart Failure (HF) Diagnosis: 08/15/22 Heart Failure Status: HFpEF - HF diagnosis, EF >=40%, non-dialysis Action Taken: GDMT score is <=6 and EF >40% - Continued Management via CHF Care Path Jenn Vidales RN September 13, 2024 3:44 PM documented in this encounter [facility] 09-13-2024 Note HNO ID: [id number] Author: DEON GLEZ MD Service: ? Author Type: Physician Type: Progress Notes Filed: 09/13/2024 15:52 Note Text: Virtualist [facility] Note I have communicated my name and active licensure. The patient's identity and physical location were verified at the time of this visit. Either the patient or their legal sales and merchandising representative has been informed of the risks and benefits of -- and alternatives to -- treatment through a remote evaluation and consents to proceed with the evaluation remotely. [phone] Subjective/Objective: CC foamy urine HPI in last week, worse in last few days + increased frequency + urgency (only occurred twice) no pain no burning not foul smelling urine is a yellow color no known prior UTI sister has a UTI at this time and had to go to the hospital no documented fever has had back pain for years, worse with gardening, etc. 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 Currently chest pain free; However, there is a high chance of recurrence since treatment has been on hold. Giving him steroid might actually put him at more risk of re bleeding. NSAID'S not an option for now. Plan: Consider Colchicine. If patient is to be restarted on AC, Colchicine has DVT (deep venous thrombosis) (HCC) 01/12/2010 S/P IVC filter, occurred post-op, on anticoagulation (for a fib) Eating disorder, unspecified 07/01/2009 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 Essential hypertension, benign Fatty liver 11/03/2009 by us Gall stones, common bile duct 12/07/2013 Generalized anxiety disorder 07/01/2009 GI bleed 06/29/2012 Hip joint replacement by other means 09/21/2012 Hyperlipidemia 08/25/2020 Impaired fasting glucose 05/05/2021 Impotence of organic origin Iron deficiency anemia 08/02/2012 skilled nursing current use of anticoagulant 02/09/2015 Major depressive disorder, recurrent episode, moderate (HCC) 07/01/2009 Morbid obesity (HCC) 04/21/2009 stated BMI 51.1 Ht: 75 Wt: 410 lbs MSSA (methicillin susceptible Staphylococcus aureus) infection 07/03/2012 Hx: MSSA infection of serosal fluids collection in L chest wall. S/P I/D on 06/19. On IV oxacillin till and then dc'ed on 06/23 with a 10 day course of Dicloxacillin. 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 Currently chest pain free; Talked with cardiology - said no need for treatment is patient is treatment free Plan: Continue to monitor Postsurgical dumping syndrome 08/30/2012 Pulmonary embolism ([facility]) 03/01/2010 Retinal detachment OD Stage 1 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 ([facility]) 08/15/2022 Syncope 11/02/2018 Torn rotator cuff Upper GI bleed 07/03/2012 Hx: UGIB presenting to OSH on 06/29 with Melanotic stool; 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 Plan: Monitor HANDH Q8H, transfuse as necessary, keep Hb>8 Consult I (more content not included)... [facility] 09-13-2024 History of Presen t illness Narrative [facility] Note I have communicated my name and active licensure. The patient's identity and physical location were verified at the time of this visit. Either the patient or their legal sales and merchandising representative has been informed of the risks and benefits of -- and alternatives to -- treatment through a remote evaluation and consents to proceed with the evaluation remotely. [phone] Subjective/Objective: CC foamy urine HPI in last week, worse in last few days + increased frequency + urgency (only occurred twice) no pain no burning not foul smelling urine is a yellow color no known prior UTI sister has a UTI at this time and had to go to the hospital no documented fever has had back pain for years, worse with gardening, etc. 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 Currently chest pain free; However, there is a high chance of recurrence since treatment has been on hold. Giving him steroid might actually put him at more risk of re bleeding. NSAID'S not an option for now. Plan: Consider Colchicine. If patient is to be restarted on AC, Colchicine has DVT (deep venous thrombosis) (HCC) 01/12/2010 S/P IVC filter, occurred post-op, on anticoagulation (for a fib) Eating disorder, unspecified 07/01/2009 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 Essential hypertension, benign Fatty liver 11/03/2009 by us Gall stones, common bile duct 12/07/2013 Generalized anxiety disorder 07/01/2009 GI bleed 06/29/2012 Hip joint replacement by other means 09/21/2012 Hyperlipidemia 08/25/2020 Impaired fasting glucose 05/05/2021 Impotence of organic origin Iron deficiency anemia 08/02/2012 emt intermediate current use of anticoagulant 02/09/2015 Major depressive disorder, recurrent episode, moderate (HCC) 07/01/2009 Morbid obesity (HCC) 04/21/2009 stated BMI 51.1 Ht: 75 Wt: 410 lbs MSSA (methicillin susceptible Staphylococcus aureus) infection 07/03/2012 Hx: MSSA infection of serosal fluids collection in L chest wall. S/P I/D on 06/19. On IV oxacillin till and then dc'ed on 06/23 with a 10 day course of Dicloxacillin. 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 Currently chest pain free; Talked with cardiology - said no need for treatment is patient is treatment free Plan: Continue to monitor Postsurgical dumping syndrome 08/30/2012 Pulmonary embolism ([facility]) 03/01/2010 Retinal detachment OD Stage 1 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 ([facility]) 08/15/2022 Syncope 11/02/2018 Torn rotator cuff Upper GI bleed 07/03/2012 Hx: UGIB presenting to OSH on 06/29 with Melanotic stool; EGD showed jejunal pouch ulcers and dieulafoy lesion which were clipped and injected Given IV PPI Assessment: UGI / to Dieulafoy and NSAID induced ulcers. Plan: Monitor H&H Q8H, transfuse as necessary, keep Hb>8 Consult IR for further intervention Protonix gtt for now, will switch to protonix 40mg bid when Hb is stable after 48-72 salma UTI (lower urinary tract infection) Varicose veins 2010 Varicose veins of both legs with edema 2010 Vitamin D deficiency 08/02/2012 REVIEW OF SYSTEMS: Review of Systems VITAL SIGNS: (if available) There were no vitals taken for this visit. Physical Exam (if video visit was performed) Physical Exam Triage source: Chronic Disease Management: Disposition: Labs / imaging ordered Assessment/Plan: ASSESSMENT/PLAN: 1. Urinary frequency - ICD9: 788.41, ICD10: R35.0 acute - Send urine for culture and UA 15 - URINALYSIS, WITH MICROSCOPIC - BACTERIAL CULTURE, URINE Deon Glez A total of 15 minutes was spent providing medical care using telemedicine. Mode of contact: Audio Only Visit Signed in as Primary Virtualist, Secondary Virtualist, or [facility] Telehealth provider: Primary SIGNATURE: Deon Glez MD PATIENT NAME: Orion Dumont DATE: September 13, 2024 documented in this encounter [facility] 09-13-2024 Note HNO ID: [id number] Author: JNEN VIDALES, RN Service: ? Author Type: Registered Nurse Type: Progress Notes Filed: 09/13/2024 16:29 Note Text: CDM Care Path Telephonic Outreach Provider Action/FYI Reports he has had foamy urine for the a few days. Has had increased frequency ( some times twice an hour but only when awake) and sometimes he can't make it to the bathroom but has had that before, it has come back in the last few days. Declines pain, burning, foul smelling urine or chills, sister has a UTI at this time and had to go to the hospital.Agrees to virtual appointment. No CDM information reviewed as he was escalated to provider. Patient identified by Name and Date of . Discussed care with patient. Program Details Chronic Disease Management Status: Enrolled Effective Dates: 07/18/2024 - present Responsible Staff: Jenn Vidales RN Support and Services: Hypertension, Chronic Obstructive Pulmonary Disease (COPD), Congestive Heart Failure (CHF) Program Goals Targets Target Due Completed Completed By Outcome General education provided (managing stress, where to go/how to contact, etc.) 08/19/2024 -- -- -- Annual Medicare Wellness visit addressed 10/17/2024 -- -- -- Annual Pulmonology visit addressed 10/17/2024 -- -- -- Biannual Cardiology visit addressed 10/17/2024 -- -- -- Reinforced need to call office to get new Cardiology appointment Biannual PCP visit addressed 10/17/2024 -- -- -- Comprehensive COPD education provided 10/17/2024 -- -- -- Patient-stated goal addressed (add comment) 10/17/2024 -- -- -- Get back to working out Comprehensive CHF education provided 10/17/2024 08/15/2024 Jenn Vidales RN Complete Comprehensive HTN education provided 10/17/2024 07/31/2024 Jenn Vidales RN Complete HTN lab care gaps addressed 10/17/2024 07/31/2024 Jenn Vidales RN Complete/Scheduled Intake assessments completed: ADLs, Fall Risk, SDOH 08/19/2024 07/18/2024 Jenn Vidales RN Complete Assessments CDM Assessment Medications: Do you have any questions about taking your medications or which medications you should be taking?: No Do you need any medication refills at this time, including any of the medication you might take only when needed?: No Social: It can be normal to feel anxious or down during a time like this. Would you like to talk to a mental health professional about how you have been feeling?: No (have an appointment in October) Symptoms: Are you experiencing any new or worsening symptoms that you need to talk about today?: Yes ADLs No documentation this encounter Fall Risk No documentation this encounter SDOH No documentation this encounter Interventions No checklist tasks for this episode were completed during this visit, and no tasks for this episode are pending completion. Disposition Based on paediatrician, the following disposition is advised: Sent to a Virtualist Jenn Vidales RN September 13, 2024 3:15 PM [facility] 09-13-2024 History of Presen t illness Narrative Images from the original note were not included. CDM Care Path Telephonic Outreach Provider Action/FYI Reports he has had foamy urine for the a few days. Has had increased frequency ( some times twice an hour but only when awake) and sometimes he can't make it to the bathroom but has had that before, it has come back in the last few days. Declines pain, burning, foul smelling urine or chills, sister has a UTI at this time and had to go to the hospital.Agrees to virtual appointment. No CDM information reviewed as he was escalated to provider. Patient identified by Name and Date of . Discussed care with patient. Program Details Chronic Disease Management Status: Enrolled Effective Dates: 07/18/2024 - present Responsible Staff: Jenn Vidales RN Support and Services: Hypertension, Chronic Obstructive Pulmonary Disease (COPD), Congestive Heart Failure (CHF) Program Goals Targets Target Due Completed Completed By Outcome General education provided (managing stress, where to go/how to contact, etc.) 08/19/2024 -- -- -- Annual Medicare Wellness visit addressed 10/17/2024 -- -- -- Annual Pulmonology visit addressed 10/17/2024 -- -- -- Biannual Cardiology visit addressed 10/17/2024 -- -- -- Reinforced need to call office to get new Cardiology appointment Biannual PCP visit addressed 10/17/2024 -- -- -- Comprehensive COPD education provided 10/17/2024 -- -- -- Patient-stated goal addressed (add comment) 10/17/2024 -- -- -- Get back to working out Comprehensive CHF education provided 10/17/2024 08/15/2024 Jenn Vidales RN Complete Comprehensive HTN education provided 10/17/2024 07/31/2024 Jenn Vidales RN Complete HTN lab care gaps addressed 10/17/2024 07/31/2024 Jenn Vidales RN Complete/Scheduled Intake assessments completed: ADLs, Fall Risk, SDOH 08/19/2024 07/18/2024 Jenn Vidales RN Complete Assessments CDM Assessment Medications: Do you have any questions about taking your medications or which medications you should be taking?: No Do you need any medication refills at this time, including any of the medication you might take only when needed?: No Social: It can be normal to feel anxious or down during a time like this. Would you like to talk to a mental health professional about how you have been feeling?: No (have an appointment in October) Symptoms: Are you experiencing any new or worsening symptoms that you need to talk about today?: Yes ADLs No documentation this encounter Fall Risk No documentation this encounter SDOH No documentation this encounter Interventions No checklist tasks for this episode were completed during this visit, and no tasks for this episode are pending completion. Disposition Based on paediatrician, the following disposition is advised: Sent to a Virtualist Jenn Vidales RN September 13, 2024 3:15 PM documented in this encounter [facility] 09-13-2024 Note HNO ID: [id number] Author: GILMER PEARSON RN Service: ? Author Type: Registered Nurse Type: Progress Notes Filed: 09/13/2024 14:54 Note Text: Value Based Care Management Inbound Call Provider Action / FYI: PCC - please call patient back. Thank you! Date of Call: 09/13/2024 Time of Call: 2:52 PM Caller Name: Orion Dumont Caller relationship to the patient: Patient Patient identified by Name and Date of : Yes Reason for Call / Main Concern Returning call to Sales Route Driver Helper Summary of Callers Concern Patient calling PARAM Vidales RN back. Action Taken / Plan Routed to Patient's Sales Route Driver Helper Gilmer Pearson RN September 13, 2024 2:52 PM [facility] 09-13-2024 History of Presen t illness Narrative Value Based Care Management Inbound Call Provider Action / FYI: PCC - please call patient back. Thank you! Date of Call: 09/13/2024 Time of Call: 2:52 PM Caller Name: Orion Dumont Caller relationship to the patient: Patient Patient identified by Name and Date of : Yes Reason for Call / Main Concern Returning call to Sales Route Driver Helper Summary of Callers Concern Patient calling PARAM Vidales RN back. Action Taken / Plan Routed to Patient's Sales Route Driver Helper Gilmer Pearson RN September 13, 2024 2:52 PM documented in this encounter [facility] 09-13-2024 Note Patient Outreach (AM BC) ORION DUMONT ([id number]) 1950 M Date Time Provider Department 09/13/24 GILMER PEARSON AM[facility] During your visit today, we recorded the following information about you: Gilmer Pearson RN 09/13/2024 2:54 PM Signed Value Based Care Management Inbound Call Provider Action / FYI: PCC - please call patient back. Thank you! Date of Call: 09/13/2024 Time of Call: 2:52 PM Caller Name: Orion Dumont Caller relationship to the patient: Patient Patient identified by Name and Date of : Yes Reason for Call / Main Concern Returning call to Sales Route Driver Helper Summary of Callers Concern Patient calling PCC Jenn Vidales RN back. Action Taken / Plan Routed to Patient's Sales Route Driver Helper Gilmer Pearson RN September 13, 2024 2:52 PM Allergies As of Date: 09/13/2024 Noted Allergy Reaction RIVAROXABAN 03/02/2013 2 - Rash SULFA (SULFONAMIDE ANTIBIOTICS) 03/18/2008 5 - Intolerance 4 - Hives Comments: Pt says that he has had silvadene cream in the past after cardioversions without side effects ADHESIVE TAPE (ROSINS) 10/08/2009 2 - Rash NIACIN 05/12/2023 14 - Other: See Comments Comments: Itching, head lam WOOL 11/25/2009 9 - Itching WOOL 03/09/2010 9 - Itching DICLOFENAC SODIUM 02/01/2016 2 - Rash Comments: Fixed drug eruption Date Reviewed: 08/29/2024 Reviewed by: Teri Cummings LPN - Fully Assessed Reason for Visit: Transition Of Care [4074] Cmt: Inbound call Prescriptions as of 09/13/2024 - albuterol HFA (PROVENTIL HFA) 90 mcg/actuation inhaler Inhale 1-2 puffs as instructed four times a day as needed for wheezing/shortness of breath. - QUEtiapine (SEROQUEL) 50 mg tablet Take 1 tablet by mouth daily at bedtime. - busPIRone (BUSPAR) 15 mg tablet Take 1 tablet by mouth two times a day. - lamoTRIgine (LAMICTAL) 100 mg tablet Take 1 tablet by mouth once daily. - sertraline (ZOLOFT) 100 mg tablet Take 2 tablets by mouth once daily. - atorvastatin (LIPITOR) 20 mg tablet Take 1 tablet by mouth once daily. - bisoprolol (ZEBETA) 5 mg tablet Take 1 tablet by mouth once daily. - fludrocortisone (FLORINEF) 0.1 mg tablet Take 1 tablet by mouth once daily. - ciclopirox (LOPROX) 0.77 % cream Apply to affected area two times a day as needed. - pantoprazole DR (PROTONIX) 40 mg tablet Take 1 tablet by mouth daily before breakfast. Take on empty stomach, 1/2 hr before meal. - oxybutynin XL (DITROPAN XL) 5 mg 24 hr tablet Take 1 tablet by mouth once daily. - digoxin (LANOXIN) 250 mcg (0.25 mg) tablet take 1 tablet by mouth every day - cholecalciferol (VITAMIN D3) 50 mcg (2,000 unit) tablet Take 1 tablet by mouth daily with dinner. - calcium citrate-vitamin D3 (CITRACAL PLUS D) 315 mg-5 mcg (200 unit) tab Take 1 tablet by mouth twice daily with meals. With each meal. - Tflii1-GccH1-M80-E-FA-Fish Oil [id number] an-fe-gix-mcg cap Take 600 mg by mouth once daily. - pyridoxine (VITAMIN B-6) 100 mg tablet Take 2 tablets by mouth twice daily. - docusate sodium 100 mg capsule Take 1 capsule by mouth twice daily as needed for Constipation. Meds Comments as of 04/11/2012: Problem List As Of Date 09/13/2024 Noted Resolved Other specified disease of sebaceous glands [L7*06/11/2008 05/05/2021 Corns and callosities [L84] 06/11/2008 05/05/2021 Contusion of foot [S90.30XA] 06/11/2008 05/05/2021 Eating disorder, unspecified [F50.9] 07/01/2009 05/12/2023 Generalized Anxiety Disorder [F41.1] 07/01/2009 Major Depressive Disorder, Recurrent Episode, M*07/01/2009 Morbid obesity (HCC) [E66.01] 10/14/2009 02/20/2014 Encounter for dietary counseling and surveillan*10/14/2009 05/05/2021 DVT (deep venous thrombosis) ([facility]) [I82.409] 01/12/2010 05/05/2021 Atrial fibrillation [I48.91] 11/03/2009 11/05/2018 Pulmonary embolism ([facility]) [I26.99] 03/01/2010 05/05/2021 Retinal detachment with retinal defect, unspeci*06/14/2010 05/05/2021 Anticoagulation monitoring, INR range 2-3 [Z79.*06/14/2010 09/28/2012 LEXIE (obstructive sleep apnea) [G47.33] 06/14/2010 Hypomagnesemia [E83.42] 06/15/2010 05/05/2021 Hypokalemia [E87.6] 06/16/2010 05/05/2021 Other and unspecified postsurgical nonabsorptio*08/25/2010 05/05/2021 Wound check, abscess [Z51.89] 08/25/2010 05/05/2021 Varicose veins of both legs with edema [I83.893]2010 Anticoagulation management encounter [Z51.81, Z*2010 05/05/2021 skilled nursing (current) use of anticoagulants [Z79.*03/18/2011 05/05/2021 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 [facility] 09-13-2024 Note Patient Outreach (AM [facility]) ORION DUMONT ([id number]) 1950 M Date Time Provider Department 09/13/24 JENN VIDALES During your visit today, we recorded the following information about you: Jenn Vidales, MICHAEL 09/13/2024 3:44 PM Signed Value based Operations Care Management Heart Failure Guideline Directed Medical Therapy (GDMT) Program Provider Action / FYI: Chart Review Guideline Directed Medical Therapy (GDMT) Program Last HF admission: unknown GDMT Score: 2 Last Echocardiogram: 05/17/23 Ejection Fraction: 55-60% Basic Metabolic Panel (BMP): cmp 04/23/24 Estimated Glomerular Filtration Rate (eGFR): 91 N-terminal pro B-type natriuretic peptide (NT proBNP): 05/03 Heart Failure (HF) Diagnosis: 08/15/22 Heart Failure Status: HFpEF - HF diagnosis, EF >=40%, non-dialysis Action Taken: GDMT score is <=6 and EF >40% - Continued Management via CHF Care Path Jenn Vidales RN September 13, 2024 3:44 PM Allergies As of Date: 09/13/2024 Noted Allergy Reaction RIVAROXABAN 03/02/2013 2 - Rash SULFA (SULFONAMIDE ANTIBIOTICS) 03/18/2008 5 - Intolerance 4 - Hives Comments: Pt says that he has had silvadene cream in the past after cardioversions without side effects ADHESIVE TAPE (ROSINS) 10/08/2009 2 - Rash NIACIN 05/12/2023 14 - Other: See Comments Comments: Itching, head lam WOOL 11/25/2009 9 - Itching WOOL 03/09/2010 9 - Itching DICLOFENAC SODIUM 02/01/2016 2 - Rash Comments: Fixed drug eruption Date Reviewed: 08/29/2024 Reviewed by: Teri Cummings LPN - Fully Assessed Reason for Visit: Care Coordination [3491] Cmt: Chart review and outreach for CHF GDMT Care Path Prescriptions as of 09/13/2024 - albuterol HFA (PROVENTIL HFA) 90 mcg/actuation inhaler Inhale 1-2 puffs as instructed four times a day as needed for wheezing/shortness of breath. - QUEtiapine (SEROQUEL) 50 mg tablet Take 1 tablet by mouth daily at bedtime. - busPIRone (BUSPAR) 15 mg tablet Take 1 tablet by mouth two times a day. - lamoTRIgine (LAMICTAL) 100 mg tablet Take 1 tablet by mouth once daily. - sertraline (ZOLOFT) 100 mg tablet Take 2 tablets by mouth once daily. - atorvastatin (LIPITOR) 20 mg tablet Take 1 tablet by mouth once daily. - bisoprolol (ZEBETA) 5 mg tablet Take 1 tablet by mouth once daily. - fludrocortisone (FLORINEF) 0.1 mg tablet Take 1 tablet by mouth once daily. - ciclopirox (LOPROX) 0.77 % cream Apply to affected area two times a day as needed. - pantoprazole DR (PROTONIX) 40 mg tablet Take 1 tablet by mouth daily before breakfast. Take on empty stomach, 1/2 hr before meal. - oxybutynin XL (DITROPAN XL) 5 mg 24 hr tablet Take 1 tablet by mouth once daily. - digoxin (LANOXIN) 250 mcg (0.25 mg) tablet take 1 tablet by mouth every day - cholecalciferol (VITAMIN D3) 50 mcg (2,000 unit) tablet Take 1 tablet by mouth daily with dinner. - calcium citrate-vitamin D3 (CITRACAL PLUS D) 315 mg-5 mcg (200 unit) tab Take 1 tablet by mouth twice daily with meals. With each meal. - Trqop9-WwpU5-G43-E-FA-Fish Oil [phone] cz-ps-gan-mcg cap Take 600 mg by mouth once daily. - pyridoxine (VITAMIN B-6) 100 mg tablet Take 2 tablets by mouth twice daily. - docusate sodium 100 mg capsule Take 1 capsule by mouth twice daily as needed for Constipation. Meds Comments as of 04/11/2012: Problem List As Of Date 09/13/2024 Noted Resolved Other specified disease of sebaceous glands [L7*06/11/2008 05/05/2021 Corns and callosities [L84] 06/11/2008 05/05/2021 Contusion of foot [S90.30XA] 06/11/2008 05/05/2021 Eating disorder, unspecified [F50.9] 07/01/2009 05/12/2023 Generalized Anxiety Disorder [F41.1] 07/01/2009 Major Depressive Disorder, Recurrent Episode, M*07/01/2009 Morbid obesity (HCC) [E66.01] 10/14/2009 02/20/2014 Encounter for dietary counseling and surveillan*10/14/2009 05/05/2021 DVT (deep venous thrombosis) (HCC) [I82.409] 01/12/2010 05/05/2021 Atrial fibrillation [I48.91] 11/03/2009 11/05/2018 Pulmonary embolism (HCC) [I26.99] 03/01/2010 05/05/2021 Retinal detachment with retinal defect, unspeci*06/14/2010 05/05/2021 Anticoagulation monitoring, INR range 2-3 [Z79.*06/14/2010 09/28/2012 LEXIE (obstructive sleep apnea) [G47.33] 06/14/2010 Hypomagnesemia [E83.42] 06/15/2010 05/05/2021 Hypokalemia [E87.6] 06/16/2010 05/05/2021 Other and unspecified postsurgical nonabsorptio*08/25/2010 05/05/2021 Wound check, abscess [Z51.89] 08/25/2010 05/05/2021 Varicose veins of both legs with edema [I83.893]2010 Anticoagulation management encounter [Z51.81, Z*2010 05/05/2021 skilled nursing (current) use of anticoagulants [Z79.*03/18/2011 05/05/2021 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 [facility] 09-13-2024 Note Patient Outreach (AM BC) ORION DUMONT ([id number]) 1950 M Date Time Provider Department 09/13/24 JENN VIDALES During your visit today, we recorded the following information about you: Jenn Vidales, MICHAEL 09/13/2024 4:29 PM Signed [facility] Care Path Telephonic Outreach Provider Action/FYI Reports he has had foamy urine for the a few days. Has had increased frequency ( some times twice an hour but only when awake) and sometimes he can't make it to the bathroom but has had that before, it has come back in the last few days. Declines pain, burning, foul smelling urine or chills, sister has a UTI at this time and had to go to the hospital.Agrees to virtual appointment. No CDM information reviewed as he was escalated to provider. Patient identified by Name and Date of . Discussed care with patient. Program Details Chronic Disease Management Status: Enrolled Effective Dates: 07/18/2024 - present Responsible Staff: Jenn Vidales RN Support and Services: Hypertension, Chronic Obstructive Pulmonary Disease (COPD), Congestive Heart Failure (CHF) Program Goals Targets Target Due Completed Completed By Outcome General education provided (managing stress, where to go/how to contact, etc.) 08/19/2024 -- -- -- Annual Medicare Wellness visit addressed 10/17/2024 -- -- -- Annual Pulmonology visit addressed 10/17/2024 -- -- -- Biannual Cardiology visit addressed 10/17/2024 -- -- -- Reinforced need to call office to get new Cardiology appointment Biannual PCP visit addressed 10/17/2024 -- -- -- Comprehensive COPD education provided 10/17/2024 -- -- -- Patient-stated goal addressed (add comment) 10/17/2024 -- -- -- Get back to working out Comprehensive CHF education provided 10/17/2024 08/15/2024 Jenn Vidales RN Complete Comprehensive HTN education provided 10/17/2024 07/31/2024 Jenn Vidales RN Complete HTN lab care gaps addressed 10/17/2024 07/31/2024 Jenn Vidales RN Complete/Scheduled Intake assessments completed: ADLs, Fall Risk, SDOH 08/19/2024 07/18/2024 Jenn Vidales RN Complete Assessments CDM Assessment Medications: Do you have any questions about taking your medications or which medications you should be taking?: No Do you need any medication refills at this time, including any of the medication you might take only when needed?: No Social: It can be normal to feel anxious or down during a time like this. Would you like to talk to a mental health professional about how you have been feeling?: No (have an appointment in October) Symptoms: Are you experiencing any new or worsening symptoms that you need to talk about today?: Yes ADLs No documentation this encounter Fall Risk No documentation this encounter SDOH No documentation this encounter Interventions No checklist tasks for this episode were completed during this visit, and no tasks for this episode are pending completion. Disposition Based on paediatrician, the following disposition is advised: Sent to a Virtualist Jenn Vidales RN September 13, 2024 3:15 PM Allergies As of Date: 09/13/2024 Noted Allergy Reaction RIVAROXABAN 03/02/2013 2 - Rash SULFA (SULFONAMIDE ANTIBIOTICS) 03/18/2008 5 - Intolerance 4 - Hives Comments: Pt says that he has had silvadene cream in the past after cardioversions without side effects ADHESIVE TAPE (ROSINS) 10/08/2009 2 - Rash NIACIN 05/12/2023 14 - Other: See Comments Comments: Itching, head lam WOOL 11/25/2009 9 - Itching WOOL 03/09/2010 9 - Itching DICLOFENAC SODIUM 02/01/2016 2 - Rash Comments: Fixed drug eruption Date Reviewed: 08/29/2024 Reviewed by: Teri Cummings LPN - Fully Assessed Prescriptions as of 09/13/2024 - albuterol HFA (PROVENTIL HFA) 90 mcg/actuation inhaler Inhale 1-2 puffs as instructed four times a day as needed for wheezing/shortness of breath. - QUEtiapine (SEROQUEL) 50 mg tablet Take 1 tablet by mouth daily at bedtime. - busPIRone (BUSPAR) 15 mg tablet Take 1 tablet by mouth two times a day. - lamoTRIgine (LAMICTAL) 100 mg tablet Take 1 tablet by mouth once daily. - sertraline (ZOLOFT) 100 mg tablet Take 2 tablets by mouth once daily. - atorvastatin (LIPITOR) 20 mg tablet Take 1 tablet by mouth once daily. - bisoprolol (ZEBETA) 5 mg tablet Take 1 tablet by mouth once daily. - fludrocortisone (FLORINEF) 0.1 mg tablet Take 1 tablet by mouth once daily. - ciclopirox (LOPROX) 0.77 % cream Apply to affected area two times a day as needed. - pantoprazole DR (PROTONIX) 40 mg tablet Take 1 tablet by mouth daily before breakfast. Take on empty stomach, 1/2 hr before meal. - oxybutynin XL (DITROPAN XL) 5 mg 24 hr tablet Take 1 tablet by mouth once daily. - digoxin (LANOXIN) 250 mcg (0.25 mg) tablet take 1 tablet by mouth every day - cholecalciferol (VITAMIN D3) 50 mcg (2,000 unit) tablet Take 1 tablet by mouth daily (more content not included)... [facility] 08-30-2024 Note HNO ID: [id number] Author: JENN VIDALES RN Service: ? Author Type: Registered Nurse Type: Progress Notes Filed: 08/30/2024 16:46 Note Text: CDM Care Path Telephonic Outreach Provider Action/ANJUM The phone rang, was picked up but sound was garbled. Called back again but it was the same and the phone was disconnected on the other end. Patient identified by Name and Date of . Discussed care with unknown. Program Details Chronic Disease Management Status: Enrolled Effective Dates: 07/18/2024 - present Responsible Staff: Jenn Vidales RN Support and Services: Hypertension, Chronic Obstructive Pulmonary Disease (COPD), Congestive Heart Failure (CHF) Program Goals Targets Target Due Completed Completed By Outcome General education provided (managing stress, where to go/how to contact, etc.) 08/19/2024 -- -- -- Annual Medicare Wellness visit addressed 10/17/2024 -- -- -- Annual Pulmonology visit addressed 10/17/2024 -- -- -- Biannual Cardiology visit addressed 10/17/2024 -- -- -- Reinforced need to call office to get new Cardiology appointment Biannual PCP visit addressed 10/17/2024 -- -- -- Comprehensive COPD education provided 10/17/2024 -- -- -- Patient-stated goal addressed (add comment) 10/17/2024 -- -- -- Get back to working out Comprehensive CHF education provided 10/17/2024 08/15/2024 Jenn Vidales RN Complete Comprehensive HTN education provided 10/17/2024 07/31/2024 Jenn Vidales RN Complete HTN lab care gaps addressed 10/17/2024 07/31/2024 Jenn Vidales RN Complete/Scheduled Intake assessments completed: ADLs, Fall Risk, SDOH 08/19/2024 07/18/2024 Jenn Vidales RN Complete Assessments No documentation this encounter Interventions No checklist tasks for this episode were completed during this visit, and no tasks for this episode are pending completion. Jenn Vidales RN August 30, 2024 4:44 PM [facility] 08-30-2024 Note Patient Outreach (AM [facility]) ORION DUMONT ([id number]) 1950 M Date Time Provider Department 08/30/24 JENN VIDALES During your visit today, we recorded the following information about you: Jenn Vidales RN 08/30/2024 4:46 PM Signed [facility] Care Path Telephonic Outreach Provider Action/ The phone rang, was picked up but sound was garbled. Called back again but it was the same and the phone was disconnected on the other end. Patient identified by Name and Date of . Discussed care with unknown. Program Details Chronic Disease Management Status: Enrolled Effective Dates: 07/18/2024 - present Responsible Staff: Jenn Vidales RN Support and Services: Hypertension, Chronic Obstructive Pulmonary Disease (COPD), Congestive Heart Failure (CHF) Program Goals Targets Target Due Completed Completed By Outcome General education provided (managing stress, where to go/how to contact, etc.) 08/19/2024 -- -- -- Annual Medicare Wellness visit addressed 10/17/2024 -- -- -- Annual Pulmonology visit addressed 10/17/2024 -- -- -- Biannual Cardiology visit addressed 10/17/2024 -- -- -- Reinforced need to call office to get new Cardiology appointment Biannual PCP visit addressed 10/17/2024 -- -- -- Comprehensive COPD education provided 10/17/2024 -- -- -- Patient-stated goal addressed (add comment) 10/17/2024 -- -- -- Get back to working out Comprehensive CHF education provided 10/17/2024 08/15/2024 Jenn Vidales RN Complete Comprehensive HTN education provided 10/17/2024 07/31/2024 Jenn Vidales RN Complete HTN lab care gaps addressed 10/17/2024 07/31/2024 Jenn Vidales RN Complete/Scheduled Intake assessments completed: ADLs, Fall Risk, SDOH 08/19/2024 07/18/2024 Jenn Vidales RN Complete Assessments No documentation this encounter Interventions No checklist tasks for this episode were completed during this visit, and no tasks for this episode are pending completion. Jenn Vidales RN August 30, 2024 4:44 PM Allergies As of Date: 08/30/2024 Noted Allergy Reaction RIVAROXABAN 03/02/2013 2 - Rash SULFA (SULFONAMIDE ANTIBIOTICS) 03/18/2008 5 - Intolerance 4 - Hives Comments: Pt says that he has had silvadene cream in the past after cardioversions without side effects ADHESIVE TAPE (ROSINS) 10/08/2009 2 - Rash NIACIN 05/12/2023 14 - Other: See Comments Comments: Itching, head lam WOOL 11/25/2009 9 - Itching WOOL 03/09/2010 9 - Itching DICLOFENAC SODIUM 02/01/2016 2 - Rash Comments: Fixed drug eruption Date Reviewed: 08/29/2024 Reviewed by: Teri Cummings LPN - Fully Assessed Prescriptions as of 08/30/2024 - azithromycin (ZITHROMAX) 250 mg tablet Take 2 tablets by mouth once daily for 1 day, THEN 1 tablet once daily for 4 days. - predniSONE (DELTASONE) 20 mg tablet Take 1 tablet by mouth once daily for 5 days. - albuterol HFA (PROVENTIL HFA) 90 mcg/actuation inhaler Inhale 1-2 puffs as instructed four times a day as needed for wheezing/shortness of breath. - QUEtiapine (SEROQUEL) 50 mg tablet Take 1 tablet by mouth daily at bedtime. - busPIRone (BUSPAR) 15 mg tablet Take 1 tablet by mouth two times a day. - lamoTRIgine (LAMICTAL) 100 mg tablet Take 1 tablet by mouth once daily. - sertraline (ZOLOFT) 100 mg tablet Take 2 tablets by mouth once daily. - atorvastatin (LIPITOR) 20 mg tablet Take 1 tablet by mouth once daily. - bisoprolol (ZEBETA) 5 mg tablet Take 1 tablet by mouth once daily. - apixaban (ELIQUIS) 5 mg tab(s) Take 1 tablet by mouth two times a day. - fludrocortisone (FLORINEF) 0.1 mg tablet Take 1 tablet by mouth once daily. - ciclopirox (LOPROX) 0.77 % cream Apply to affected area two times a day as needed. - pantoprazole DR (PROTONIX) 40 mg tablet Take 1 tablet by mouth daily before breakfast. Take on empty stomach, 1/2 hr before meal. - oxybutynin XL (DITROPAN XL) 5 mg 24 hr tablet Take 1 tablet by mouth once daily. - digoxin (LANOXIN) 250 mcg (0.25 mg) tablet take 1 tablet by mouth every day - cholecalciferol (VITAMIN D3) 50 mcg (2,000 unit) tablet Take 1 tablet by mouth daily with dinner. - calcium citrate-vitamin D3 (CITRACAL PLUS D) 315 mg-5 mcg (200 unit) tab Take 1 tablet by mouth twice daily with meals. With each meal. - [id number]-E-FA-Fish Oil [phone] [id number]-[id number]-mcg cap Take 600 mg by mouth once daily. - pyridoxine (VITAMIN B-6) 100 mg tablet Take 2 tablets by mouth twice daily. - docusate sodium 100 mg capsule Take 1 capsule by mouth twice daily as needed for Constipation. Meds Comments as of 04/11/2012: Problem List As Of Date 08/30/2024 Noted Resolved Other specified disease of sebaceous glands [L7*06/11/2008 05/05/2021 Corns and callosities [L84] 06/11/2008 05/05/2021 Contusion of foot [S90.30XA] 06/11/2008 05/05/2021 Eating disorder, unspecified [F50.9] 07/01/2009 05/12/2023 Generalized Anxiety D (more content not included)... [facility] 08-29-2024 Note HNO ID: [id number] Author: LOUIE WATSON RT(R) Service: ? Author Type: Apron Operator Type: Progress Notes Filed: 08/29/2024 17:24 Note Text: Radiology Service Progress Note PATIENT NAME: Orion Dumont DATE OF SERVICE: August 29, 2024 TIME: 5:16 PM PATIENT IDENTITY VERIFICATION COMPLETED USING TWO (2) IDENTIFIERS: Name and Date of confirmed by patient verbally. FALL SCREENING: Has the patient had 2 falls in the last year or 1 fall with injury or currently using an Ambulatory Assistive Device (Walker, Cane, Wheelchair, Crutches, etc.)? No PATIENT GENDER DATA: Assigned male at PATIENT RELEVANT IMPLANT DATA REVIEWED: Yes PATIENT PRESENTS WITH AN IMPLANTABLE OR ATTACHED STAFF MECHANICAL ENGINEER: No RADIOLOGY DEPARTMENT: General X-ray: Exam(s) Completed: Chest X-Ray PERIPHERAL IV DATA: Not applicable SIGNED BY: RT Elena(R) August 29, 2024 5:16 PM [facility] 08-29-2024 Note HNO ID: [id number] Author: FLORIAN GONZALEZ MD Service: ? Author Type: Physician Type: Progress Notes Filed: 08/29/2024 16:59 Note Text: This note was created using Comixologyriter. Subjective Patient presents with: Cough Orion Dumont is a 73 year old male. Recording using Capig[employer] software for draft documentation of the visit was discussed with the patient/authorized sales and merchandising representative; all questions welcomed and answered. Patient/authorized sales and merchandising representative agreed to proceed Cough: - Persistent cough with yellow sputum production x1 week. - Coughing episodes last 1-2 hours, unrelieved by cough drops or syrup. - Associated symptoms: rhinorrhea, epiphora, wheezing, and mild odynophagia. - Denies known exposure to illness; sister was recently hospitalized and in a [facility], visited daily. - Denies otalgia, dyspnea, fever, chills, or night sweats. - Recent episodes of dizziness and imbalance. - History of similar coughing episode in May, treated with an OTC medication that resolved symptoms. - Currently using allergy relief pills with no relief. - Has an albuterol inhaler, last used 6-8 weeks ago. Diarrhea: - Diarrhea x2 days, with 3-4 episodes per day. Depression: - Reports feeling really, really depressed and not very proud of himself. - Overwhelmed by caregiving responsibilities for his 78-year-old sister, which occupy over 50% of his day. - Has a list of therapists to contact but has not done so yet. - Last saw a therapist 4-5 years ago; has an upcoming appointment with [facility] on September 24. Scrotal Lesion: - Approximately 6 weeks ago, removed a scabbed lesion on the scrotum, resulting in significant bleeding. - Required multiple maxi pads to manage bleeding; eventually sought ER care where a dressing was applied, stopping the bleeding. - Did not follow up as advised because the bleeding resolved. Review of Systems Constitutional: (+) feeling cold, (-) fever, (-) chills, (-) night sweats Eyes: (+) tearing Ears/Nose/Mouth/Throat: (+) nasal congestion, (+) sneezing, (-) ear pain, (-) sore throat Respiratory: (+) cough, (+) phlegm, (+) wheezing, (-) shortness of breath Gastrointestinal: (+) diarrhea, (-) vomiting Musculoskeletal: (+) localized bone pain Neurological: (+) dizziness, (+) imbalance Psychiatric: (+) depression, (+) suicidal ideation ACTIVE PROBLEM LIST Generalized Anxiety Disorder Major Depressive Disorder, Recurrent Episode, Moderate (Hcc) Lexie (Obstructive Sleep Apnea) Varicose Veins of Both Legs With Edema Gastric Bypass Status for Obesity Vitamin D Deficiency Orthostatic Hypotension Postsurgical Dumping Syndrome Atrial Fibrillation With Rvr ([facility]) Care Home Current Use of Anticoagulant Bph With Urinary Obstruction Obesity, Class II, Bmi 35-39.9 Hyperlipidemia Impaired Fasting Glucose 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 busPIRone (BUSPAR) 15 mg tablet Take 1 tablet by mouth two times a day. lamoTRIgine (LAMICTAL) 100 mg tablet Take 1 tablet by mouth once daily. sertraline (ZOLOFT) 100 mg tablet Take 2 tablets by mouth once daily. albuterol HFA (PROVENTIL HFA) 90 mcg/actuation inhaler Inhale 1-2 Puffs as instructed four times a day as needed for wheezing/shortness of breath. atorvastatin (LIPITOR) 20 mg tablet Take 1 tablet by mouth once daily. bisoprolol (ZEBETA) 5 mg tablet Take 1 tablet by mouth once daily. apixaban (ELIQUIS) 5 mg tab(s) Take 1 tablet by mouth two times a day. fludrocortisone (FLORINEF) 0.1 mg tablet Take 1 tablet by mouth once daily. ciclopirox (LOPROX) 0.77 % cream Apply to affected area two times a day as needed. pantoprazole DR (PROTONIX) 40 mg tablet Take 1 tablet by mouth daily before breakfast. Take on empty stomach, 1/2 hr before meal. oxybutynin XL (DITROPAN XL) 5 mg 24 hr tablet Take 1 tablet by mouth once daily. digoxin (LANOXIN) 250 mcg (0.25 mg) tablet take 1 tablet by mouth every day cholecalciferol (VITAMIN D3) 50 mcg (2,000 unit) tablet Take 1 tablet by mouth daily with dinner. calcium citrate-vitamin D3 (CITRACAL PLUS D) 315 mg-5 mcg (200 unit) tab Take 1 tablet by mouth twice daily with meals. With each meal. Sfkrt8-DhfK7-I86-E-FA-Fish Oil [phone] tp-nv-pgk-mcg cap Take 600 mg by mouth once daily. pyridoxine (VITAMIN B-6) 100 mg tablet Take 2 tablets by mouth twice daily. docusate sodium 100 mg capsule Take 1 capsule by mouth twice daily as needed for Constipation. benzonatate (TESSALON PERLE) 100 mg capsule Take 1-2 (more content not included)... [facility] 08-15-2024 Note HNO ID: [id number] Author: JENN VIDALES RN Service: ? Author Type: Registered Nurse Type: Progress Notes Filed: 08/15/2024 12:56 Note Text: [facility] Care Path Telephonic Outreach Provider Action/FYI Patient identified by Name and Date of . Discussed care with patient. Program Details Chronic Disease Management Status: Enrolled Effective Dates: 07/18/2024 - present Responsible Staff: Jenn Vidales RN Support and Services: Hypertension, Chronic Obstructive Pulmonary Disease (COPD), Congestive Heart Failure (CHF) Program Goals Targets Target Due Completed Completed By Outcome General education provided (managing stress, where to go/how to contact, etc.) 08/19/2024 -- -- -- Annual Medicare Wellness visit addressed 10/17/2024 -- -- -- Annual Pulmonology visit addressed 10/17/2024 -- -- -- Biannual Cardiology visit addressed 10/17/2024 -- -- -- Reinforced need to call office to get new Cardiology appointment Biannual PCP visit addressed 10/17/2024 -- -- -- Comprehensive COPD education provided 10/17/2024 -- -- -- Patient-stated goal addressed (add comment) 10/17/2024 -- -- -- Get back to working out Comprehensive CHF education provided 10/17/2024 08/15/2024 Jenn Vidales RN Complete Comprehensive HTN education provided 10/17/2024 07/31/2024 Jenn Vidales RN Complete HTN lab care gaps addressed 10/17/2024 07/31/2024 Jenn Vidales RN Complete/Scheduled Intake assessments completed: ADLs, Fall Risk, SDOH 08/19/2024 07/18/2024 Jenn Vidales RN Complete Assessments CDM Assessment Medications: Do you have any questions about taking your medications or which medications you should be taking?: No Do you need any medication refills at this time, including any of the medication you might take only when needed?: No Social: It can be normal to feel anxious or down during a time like this. Would you like to talk to a mental health professional about how you have been feeling?: No Symptoms: Are you experiencing any new or worsening symptoms that you need to talk about today?: No ADLs No documentation this encounter Fall Risk No documentation this encounter SDOH No documentation this encounter Interventions The following were addressed during this visit: - Month 3: Schedule/Order BMP Lab - Comprehensive CHF education provided - Month 1: Provide Heart Failure Video AND CHF SHRADDHA Education - Month 1: Provide CHF Education: Understanding Heart Failure - Month 1: Provide CHF Education: Heart Failure Zones - Month 2: Provide CHF Education: Keeping Track of Your Weight - Month 2: Provide CHF Education: Diet Modifications - Month 3: Provide CHF Education: Activity Guidelines/Exercise - Bi-Weekly Outreach (Recurring) Disposition Based on paediatrician, the following disposition is advised: No action needed Jenn Vidales RN August 15, 2024 12:55 PM [facility] 08-15-2024 History of Presen t illness Narrative Images from the original note were not included. [facility] Care Path Telephonic Outreach Provider Action/FYI Patient identified by Name and Date of . Discussed care with patient. Program Details Chronic Disease Management Status: Enrolled Effective Dates: 07/18/2024 - present Responsible Staff: Jenn Vidales RN Support and Services: Hypertension, Chronic Obstructive Pulmonary Disease (COPD), Congestive Heart Failure (CHF) Program Goals Targets Target Due Completed Completed By Outcome General education provided (managing stress, where to go/how to contact, etc.) 08/19/2024 -- -- -- Annual Medicare Wellness visit addressed 10/17/2024 -- -- -- Annual Pulmonology visit addressed 10/17/2024 -- -- -- Biannual Cardiology visit addressed 10/17/2024 -- -- -- Reinforced need to call office to get new Cardiology appointment Biannual PCP visit addressed 10/17/2024 -- -- -- Comprehensive COPD education provided 10/17/2024 -- -- -- Patient-stated goal addressed (add comment) 10/17/2024 -- -- -- Get back to working out Comprehensive CHF education provided 10/17/2024 08/15/2024 Jenn Vidales RN Complete Comprehensive HTN education provided 10/17/2024 07/31/2024 Jenn Vidales RN Complete HTN lab care gaps addressed 10/17/2024 07/31/2024 Jenn Vidales RN Complete/Scheduled Intake assessments completed: ADLs, Fall Risk, SDOH 08/19/2024 07/18/2024 Jenn Vidales RN Complete Assessments CDM Assessment Medications: Do you have any questions about taking your medications or which medications you should be taking?: No Do you need any medication refills at this time, including any of the medication you might take only when needed?: No Social: It can be normal to feel anxious or down during a time like this. Would you like to talk to a mental health professional about how you have been feeling?: No Symptoms: Are you experiencing any new or worsening symptoms that you need to talk about today?: No ADLs No documentation this encounter Fall Risk No documentation this encounter SDOH No documentation this encounter Interventions The following were addressed during this visit: - Month 3: Schedule/Order BMP Lab - Comprehensive CHF education provided - Month 1: Provide Heart Failure Video & CHF SHRADDHA Education - Month 1: Provide CHF Education: Understanding Heart Failure - Month 1: Provide CHF Education: Heart Failure Zones - Month 2: Provide CHF Education: Keeping Track of Your Weight - Month 2: Provide CHF Education: Diet Modifications - Month 3: Provide CHF Education: Activity Guidelines/Exercise - Bi-Weekly Outreach (Recurring) Disposition Based on paediatrician, the following disposition is advised: No action needed Jenn Vidales RN August 15, 2024 12:55 PM documented in this encounter [facility] 08-15-2024 Note Patient Outreach (AM [facility]) ORION DUMONT ([id number]) 1950 M Date Time Provider Department 08/15/24 JENN VIDALES During your visit today, we recorded the following information about you: Jenn Vidales RN 08/15/2024 12:56 PM Signed [facility] Care Path Telephonic Outreach Provider Action/ Patient identified by Name and Date of . Discussed care with patient. Program Details Chronic Disease Management Status: Enrolled Effective Dates: 07/18/2024 - present Responsible Staff: Jenn Vidales, RN Support and Services: Hypertension, Chronic Obstructive Pulmonary Disease (COPD), Congestive Heart Failure (CHF) Program Goals Targets Target Due Completed Completed By Outcome General education provided (managing stress, where to go/how to contact, etc.) 08/19/2024 -- -- -- Annual Medicare Wellness visit addressed 10/17/2024 -- -- -- Annual Pulmonology visit addressed 10/17/2024 -- -- -- Biannual Cardiology visit addressed 10/17/2024 -- -- -- Reinforced need to call office to get new Cardiology appointment Biannual PCP visit addressed 10/17/2024 -- -- -- Comprehensive COPD education provided 10/17/2024 -- -- -- Patient-stated goal addressed (add comment) 10/17/2024 -- -- -- Get back to working out Comprehensive CHF education provided 10/17/2024 08/15/2024 Jenn Vidales RN Complete Comprehensive HTN education provided 10/17/2024 07/31/2024 Jenn Vidales RN Complete HTN lab care gaps addressed 10/17/2024 07/31/2024 Jenn Vidales RN Complete/Scheduled Intake assessments completed: ADLs, Fall Risk, SDOH 08/19/2024 07/18/2024 Jenn Vidales RN Complete Assessments CDM Assessment Medications: Do you have any questions about taking your medications or which medications you should be taking?: No Do you need any medication refills at this time, including any of the medication you might take only when needed?: No Social: It can be normal to feel anxious or down during a time like this. Would you like to talk to a mental health professional about how you have been feeling?: No Symptoms: Are you experiencing any new or worsening symptoms that you need to talk about today?: No ADLs No documentation this encounter Fall Risk No documentation this encounter SDOH No documentation this encounter Interventions The following were addressed during this visit: - Month 3: Schedule/Order BMP Lab - Comprehensive CHF education provided - Month 1: Provide Heart Failure Video AND CHF SHRADDHA Education - Month 1: Provide CHF Education: Understanding Heart Failure - Month 1: Provide CHF Education: Heart Failure Zones - Month 2: Provide CHF Education: Keeping Track of Your Weight - Month 2: Provide CHF Education: Diet Modifications - Month 3: Provide CHF Education: Activity Guidelines/Exercise - Bi-Weekly Outreach (Recurring) Disposition Based on paediatrician, the following disposition is advised: No action needed Jenn Vidales RN August 15, 2024 12:55 PM Allergies As of Date: 08/15/2024 Noted Allergy Reaction RIVAROXABAN 03/02/2013 2 - Rash SULFA (SULFONAMIDE ANTIBIOTICS) 03/18/2008 5 - Intolerance 4 - Hives Comments: Pt says that he has had silvadene cream in the past after cardioversions without side effects ADHESIVE TAPE (ROSINS) 10/08/2009 2 - Rash NIACIN 05/12/2023 14 - Other: See Comments Comments: Itching, head lam WOOL 11/25/2009 9 - Itching WOOL 03/09/2010 9 - Itching DICLOFENAC SODIUM 02/01/2016 2 - Rash Comments: Fixed drug eruption Date Reviewed: 08/06/2024 Reviewed by: Katya Salmon LPN - Fully Assessed Primary Visit Diagnosis:Chronic combined systolic and diastolic congestive heart failure (HCC) [I50.42] Order(s):PT [facility] [[id number]] Order #: [id number]: 1 Prescriptions as of 08/15/2024 - QUEtiapine (SEROQUEL) 50 mg tablet Take 1 tablet by mouth daily at bedtime. - busPIRone (BUSPAR) 15 mg tablet Take 1 tablet by mouth two times a day. - lamoTRIgine (LAMICTAL) 100 mg tablet Take 1 tablet by mouth once daily. - sertraline (ZOLOFT) 100 mg tablet Take 2 tablets by mouth once daily. - benzonatate (TESSALON PERLE) 100 mg capsule Take 1-2 capsules by mouth three times a day as needed for cough. - albuterol HFA (PROVENTIL HFA) 90 mcg/actuation inhaler Inhale 1-2 Puffs as instructed four times a day as needed for wheezing/shortness of breath. - cetirizine (ZYRTEC) 10 mg tablet Take 1 tablet by mouth once daily. for nasal drainage and phlegm - atorvastatin (LIPITOR) 20 mg tablet Take 1 tablet by mouth once daily. - bisoprolol (ZEBETA) 5 mg tablet Take 1 tablet by mouth once daily. - apixaban (ELIQUIS) 5 mg tab(s) Take 1 tablet by mouth two times a day. - fludrocortisone (FLORINEF) 0.1 mg tablet Take 1 tablet by mouth once daily. - ciclopirox (LOPROX) 0.77 % cream Apply to affected area two times a day as needed. - pantoprazole (more content not included)... [facility] 08-06-2024 Instructions [facility] Alonzo, BRAD[facility] - 08/06/2024 12:20 PM EDT We discussed your anxiety, obsessive thoughts, and stress: - Continue taking Seroquel at bedtime to help with sleep. Let me know if you experience any side effects. - Continue taking Lamictal at the same dose. - Continue taking BuSpar twice daily. I have updated your prescription to reflect this dosing. - Increase your Zoloft (sertraline) dose to 200 mg daily starting today. Take two 100 mg tablets each day. This prescription has been sent to [facility]. You should start noticing benefits in 2-3 weeks, with full effects in 4-6 weeks. - Avoid engaging with unwanted text messages or calls: - Do not open, respond to, or listen to messages or voicemails from unknown numbers. Delete them immediately. - Use your phone s settings to filter unknown senders and block numbers. - If the harassment continues and you find it difficult to manage, consider changing your phone number. Make a list of important contacts (e.g., [facility], [employer]) to update with your new number. - Avoid social media and other apps that may contribute to stress or impulsive behaviors. We discussed therapy and additional support: - Contact [facility] and [email or web address] to inquire about therapy availability and insurance acceptance. These are local options that may be able to help you sooner. - Refer to the list of therapy providers sent by social media assistant Kusum Cheng on July 19 in your MyChart. Call multiple providers to verify insurance coverage and availability. - Therapy is essential to help manage your anxiety, obsessive thoughts, and impulsive behaviors. Please prioritize scheduling an appointment. We discussed your next steps: - Your next appointment is scheduled for September 24 at 11:00 AM. This will allow us to assess the benefits of the increased Zoloft dose and review your progress with therapy and managing unwanted messages. - Start the increased Zoloft dose today and continue all other medications as prescribed. - Follow the strategies we discussed to avoid engaging with unwanted messages and calls. This is critical for your mental health and well-being. Please review this summary if you need a reminder of our discussion. Let me know if you have any questions or concerns before your next visit. Stay strong, Greg--you are taking important steps to protect your well-being. For those experiencing a suicidal crisis: --call the National Suicide Prevention Lifeline at 988 (633-712-3358) --text the Crisis Text Line (text HOME to 634526) --call 911 and let them know you are having a mental health crisis or go to your nearest Emergency Room for stabilization. --You can also call Mobile Crisis at [phone]. -- You may call the department appointment line at [phone] to schedule your appointment. -- Please call my nurse at [phone] or send me a message in [employer] with any questions or concerns between appointments. documented in this encounter [facility] 08-06-2024 Note HNO ID: [id number] Author: QUINCY ALONZO APRN.CNP Service: ? Author Type: Nurse Practitioner Type: Progress Notes Filed: 08/06/2024 12:20 Note Text: FOLLOW UP - PSYCHIATRIC PROGRESS NOTE Visit Type: In person Recording using Capigami software for draft documentation of the visit was discussed with the patient/authorized sales and merchandising representative; all questions welcomed and answered. Patient/authorized sales and merchandising representative agreed to proceed CC: Outpatient follow-up and safety monitoring of previously prescribed psychiatric medication, psychotherapy or other treatment HPI: Patient is a 73-year-old male with a history of LANA, depression, and impulsive behavior, presenting for follow-up. The patient reports ongoing stress and anxiety related to his financial situation and impulsive behaviors. He describes engaging in risky financial activities, such as using Walter Noelle and Bitcoin, without fully understanding them. He has been repeatedly contacted by an individual through text messages, despite blocking the number multiple times. This person continues to reach out using different phone numbers and email addresses, causing significant frustration and distress. He is currently taking Seroquel at bedtime but is unsure if it is helping. He reports one night of insomnia but otherwise notes improved sleep. He is also taking Lamictal, Zoloft 100 mg daily, and BuSpar twice daily. He reports adherence to his medication regimen. He has not yet engaged in therapy but has received a list of providers from [facility] and plans to contact [facility]. He expresses a desire to manage his impulsive behaviors and reduce stress. He is currently living with his sister, who has been hospitalized and transferred to a mcfp after multiple falls. Another sister from [place] is visiting to help with the situation. He feels a significant burden of responsibility for his sister's care, which contributes to his anxiety and depressive symptoms. He experiences persistent what-if thoughts and difficulty letting go of worries, leading to feelings of being overwhelmed. Risks and benefits of the medication, including any black box warnings, were discussed with the patient. Interval Progress: Slightly improved in some areas. 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 Currently chest pain free; However, there is a high chance of recurrence since treatment has been on hold. Giving him steroid might actually put him at more risk of re bleeding. NSAID'S not an option for now. Plan: Consider Colchicine. If patient is to be restarted on AC, Colchicine has DVT (deep venous thrombosis) (HCC) 01/12/2010 S/P IVC filter, occurred post-op, on anticoagulation (for a fib) Eating disorder, unspecified 07/01/2009 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 Essential hypertension, benign Fatty liver 11/03/2009 by us Gall stones, common bile duct 12/07/2013 Generalized anxiety disorder 07/01/2009 GI bleed 06/29/2012 Hip joint replacement by other means 09/21/2012 Hyperlipidemia 08/25/2020 Impaired fasting glucose 05/05/2021 Impotence of organic origin Iron deficiency anemia 08/02/2012 skilled nursing current use of anticoagulant 02/09/2015 Major depressive disorder, recurrent episode, moderate (HCC) 07/01/2009 Morbid obesity (HCC) 04/21/19 (more content not included)... [facility] 08-06-2024 History of Presen t illness Narrative FOLLOW UP - PSYCHIATRIC PROGRESS NOTE Visit Type: In person Recording using Capigami software for draft documentation of the visit was discussed with the patient/authorized sales and merchandising representative; all questions welcomed and answered. Patient/authorized sales and merchandising representative agreed to proceed CC: Outpatient follow-up and safety monitoring of previously prescribed psychiatric medication, psychotherapy or other treatment HPI: Patient is a 73-year-old male with a history of LANA, depression, and impulsive behavior, presenting for follow-up. The patient reports ongoing stress and anxiety related to his financial situation and impulsive behaviors. He describes engaging in risky financial activities, such as using Walter Noelle and Bitcoin, without fully understanding them. He has been repeatedly contacted by an individual through text messages, despite blocking the number multiple times. This person continues to reach out using different phone numbers and email addresses, causing significant frustration and distress. He is currently taking Seroquel at bedtime but is unsure if it is helping. He reports one night of insomnia but otherwise notes improved sleep. He is also taking Lamictal, Zoloft 100 mg daily, and BuSpar twice daily. He reports adherence to his medication regimen. He has not yet engaged in therapy but has received a list of providers from [facility] and plans to contact [facility]. He expresses a desire to manage his impulsive behaviors and reduce stress. He is currently living with his sister, who has been hospitalized and transferred to a mcfp after multiple falls. Another sister from [place] is visiting to help with the situation. He feels a significant burden of responsibility for his sister's care, which contributes to his anxiety and depressive symptoms. He experiences persistent what-if thoughts and difficulty letting go of worries, leading to feelings of being overwhelmed. Risks and benefits of the medication, including any black box warnings, were discussed with the patient. Interval Progress: Slightly improved in some areas. 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 Currently chest pain free; However, there is a high chance of recurrence since treatment has been on hold. Giving him steroid might actually put him at more risk of re bleeding. NSAID'S not an option for now. Plan: Consider Colchicine. If patient is to be restarted on AC, Colchicine has DVT (deep venous thrombosis) (HCC) 01/12/2010 S/P IVC filter, occurred post-op, on anticoagulation (for a fib) Eating disorder, unspecified 07/01/2009 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 Essential hypertension, benign Fatty liver 11/03/2009 by us Gall stones, common bile duct 12/07/2013 Generalized anxiety disorder 07/01/2009 GI bleed 06/29/2012 Hip joint replacement by other means 09/21/2012 Hyperlipidemia 08/25/2020 Impaired fasting glucose 05/05/2021 Impotence of organic origin Iron deficiency anemia 08/02/2012 skilled nursing current use of anticoagulant 02/09/2015 Major depressive disorder, recurrent episode, moderate (HCC) 07/01/2009 Morbid obesity (HCC) 04/21/2009 stated BMI 51.1 Ht: 75 Wt: 410 lbs MSSA (methicillin susceptible Staphylococcus aureus) infection 07/03/2012 Hx: MSSA infection of serosal fluids collection in L chest wall. S/P I/D on 06/19. On IV oxacillin till and then dc'ed on 06/23 with a 10 day course of Dicloxacillin. 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 Currently chest pain free; Talked with cardiology - said no need for treatment is patient is treatment free Plan: Continue to monitor Postsurgical dumping syndrome 08/30/2012 Pulmonary embolism (HCC) 03/01/2010 Retinal detachment OD Stage 1 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 ([facility]) 08/15/2022 Syncope 11/02/2018 Torn rotator cuff Upper GI bleed 07/03/2012 Hx: UGIB presenting to OSH on 06/29 with Melanotic stool; 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 Plan: Monitor H&H Q8H, transfuse as necessary, keep Hb>8 Consult IR for further intervention Protonix gtt for now, will switch to protonix 40mg bid when Hb is stable after 48-72 salma UTI (lower urinary tract infection) Varicose veins 2010 Varicose veins of both legs with edema 2010 Vitamin D deficiency 08/02/2012 PAST SURGICAL HISTORY Procedure Laterality Date APPENDECTOMY HX ARTHRP ACETBLR/PROX FEM PROSTC AGRFT/ALGRFT 1993 left BACK SURGERY HX CARDIOVERSION CHOLECYSTECTOMY 11/18/2013 COLONOSCOPY 02/22/2023 repeat 10 years COLONOSCOPY GEN ANES 04/20/2020 CYSTO BLADDER W/URETERAL CATHETERIZATION 01/30/2010 CYSTOSCOPY, RETROPYELOGRAM performed by RADHA OLIVAREZ at OR CYSTO W/INSERT URETERAL STENT 01/30/2010 CYSTOSCOPY, INSERTION STENT URETERAL J performed by RADHA OLIVAREZ at OR CYSTOURETHROSCOPY 06/16/2017 Cystoscopy DISKECTOMY, LUMBAR, SINGLE SP 1981 L4-5 EGD 04/20/2020 GASTRIC BYPASS HX 2008 w/ complications. JOINT REPLACEMENT HX NEPHROLITHOTOMY REMOVAL STAGE 1 05/02/2012 PAST SURGICAL HISTORY OF 1967 left hip pin PAST SURGICAL HISTORY OF 04/23/2012 heart surgery PAST SURGICAL HISTORY OF 06/04/2012 stitches for broken blood vesel in rectum REDUCE BOWEL OBSTRUCTION 06/24/2010 Performed by RAN REPAIR RETINAL DETACHMENT SCLERAL BUCKLING 10/2009 od Scleral Buckle REPAIR RETINAL DETACHMENT SCLERAL BUCKLING 08/05/2013 SB (Scleral Buckle)/ cyro os REVISE MEDIAN N/CARPAL TUNNEL SURG Left 10/2020 SESAMOIDECTOMY, THUMB/FINGER Left 06/30/2022 Left Thumb arthroplasty VITRECTOMY MECHANICAL PARS PLANA 09/03/2013 PPV / EL / gas OS ALLERGIES Allergen Reactions Rivaroxaban Rash Sulfa (Sulfonamide * Intolerance, Hives Pt says that he has had silvadene cream in the past after cardioversions without side effects Adhesive Tape (Magalie* Rash Niacin Other: See Comments Itching, head lam Wool Itching Wool Itching Diclofenac Sodium Rash Fixed drug eruption Current Outpatient Medications on File Prior to Visit Medication Sig QUEtiapine (SEROQUEL) 50 mg tablet Take 1 tablet by mouth daily at bedtime. lamoTRIgine (LAMICTAL) 100 mg tablet Take 1 tablet by mouth once daily. sertraline (ZOLOFT) 100 mg tablet Take 1 tablet by mouth once daily. busPIRone (BUSPAR) 15 mg tablet Take 1 tablet by mouth every morning. benzonatate (TESSALON PERLE) 100 mg capsule Take 1-2 capsules by mouth three times a day as needed for cough. albuterol HFA (PROVENTIL HFA) 90 mcg/actuation inhaler Inhale 1-2 Puffs as instructed four times a day as needed for wheezing/shortness of breath. cetirizine (ZYRTEC) 10 mg tablet Take 1 tablet by mouth once daily. for nasal drainage and phlegm atorvastatin (LIPITOR) 20 mg tablet Take 1 tablet by mouth once daily. bisoprolol (ZEBETA) 5 mg tablet Take 1 tablet by mouth once daily. apixaban (ELIQUIS) 5 mg tab(s) Take 1 tablet by mouth two times a day. fludrocortisone (FLORINEF) 0.1 mg tablet Take 1 tablet by mouth once daily. ciclopirox (LOPROX) 0.77 % cream Apply to affected area two times a day as needed. pantoprazole DR (PROTONIX) 40 mg tablet Take 1 tablet by mouth daily before breakfast. Take on empty stomach, 1/2 hr before meal. oxybutynin XL (DITROPAN XL) 5 mg 24 hr tablet Take 1 tablet by mouth once daily. digoxin (LANOXIN) 250 mcg (0.25 mg) tablet take 1 tablet by mouth every day cholecalciferol (VITAMIN D3) 50 mcg (2,000 unit) tablet Take 1 tablet by mouth daily with dinner. calcium citrate-vitamin D3 (CITRACAL PLUS D) 315 mg-5 mcg (200 unit) tab Take 1 tablet by mouth twice daily with meals. With each meal. [id number]-Fish Oil [phone] cap Take 600 mg by mouth once daily. pyridoxine (VITAMIN B-6) 100 mg tablet Take 2 tablets by mouth twice daily. docusate sodium 100 mg capsule Take 1 capsule by mouth twice daily as needed for Constipation. No current facility-administered medications on file prior to visit. ROS: See HPI PFSH: See HPI VITAL SIGNS: There were no vitals filed for this visit. MENTAL STATUS EXAM: Appearance: Well dressed, well groomed Behavior: Behaves appropriately during the encounter Social relatedness: anxious and distressed Speech/Language: The patient demonstrates appropriate tone, prosody, dia, phonetics, and syntax Mood: sad and anxious Affect: Full and appropriate to topic Orientation: Person, Place, Time and Situation Associations: Intact and linear Hallucinations: None Delusions: None Suicidal Ideation: No suicidal ideation, intent or plan. Homicidal Ideation: No homicidal ideation, intent or plan. Insight: Appropriate Judgment: Appropriate DATA REVIEWED: Psychiatric scales, Electronic medical record, lab results DIAGNOSIS: Generalized anxiety disorder (primary encounter diagnosis) Psychosocial stressors Chronic post-traumatic stress disorder (ptsd) Major depressive disorder, recurrent severe without psychotic features (hcc) Insomnia due to other mental disorder Encounter for long-term (current) use of medications GAF: -50-41 Serious symptoms or any serious impairment in social, occupational or school functioning. TREATMENT PLAN: 1. 1. Generalized anxiety disorder (F41.1) Psychosocial stressors (Z65.8) Chronic post-traumatic stress disorder (PTSD) (F43.12) Major depressive disorder, recurrent severe without psychotic features (HCC) (F33.2) Experiencing significant anxiety and stress related to financial issues and impulsive behaviors. Persistent intrusive thoughts and difficulty managing stressors. Current stressors include family responsibilities and harassment via text messages. Depression symptoms are exacerbated by these stressors. Patient is currently on sertraline 100 mg daily, lamotrigine, and buspirone once daily. - Increased sertraline to 200 mg daily; instructed patient to take two 100 mg tablets starting today. - Continue lamotrigine and buspirone, increased buspirone to twice daily. - Advised patient to seek therapy; recommended contacting [facility] and [facility] for in-person therapy sessions. - Discussed strategies to manage intrusive thoughts and stress, including not engaging with harassing text messages and considering changing phone number if harassment persists. - Scheduled follow-up appointment on September 24 at 11:00 to assess response to increased sertraline dose and progress in therapy. 2. Insomnia due to other mental disorder (F51.05) Insomnia symptoms have improved with quetiapine at bedtime, though occasional sleepless nights persist. - Continue quetiapine at bedtime. - Monitor sleep patterns and report any persistent insomnia at follow-up. 3. Encounter for long-term (current) use of medications (Z79.899) Patient is on long-term medications including sertraline, lamotrigine, buspirone, and quetiapine. - Continue current medication regimen with adjustments as noted. - Monitor for side effects and efficacy of increased sertraline dose. MEDICATION CHANGES: Prescriptions given - Reviewed Lamictal titration & risk of severe rash. Instructed to call ROSELINE if this occurs. Patient denies any involuntary movement related side effects. Risks and benefits of the medication, including any black box warnings, were discussed with the patient. Patient is aware to reach out with any questions, concerns, or worsening of symptoms prior to the next appointment. Patient educated on risks of substance use in combination with medications and advised that any substance use along with medications may alter their effectiveness. Follow Up: September 24 as scheduled Medical Decision Making: Problems: Moderate: 1+ chronic illnesses with change and 2+ stable chronic illnesses Data: Unique source(s) for external note(s) reviewed: 3+ Unique test result(s) reviewed: 3+ Independent interpretation of test from other physician/QHCP Risk: Moderate: Moderate risk from testing/treatment and Drug management Medical Decision Making Level: 4 - Moderate ADD ON PSYCHOTHERAPY CODE : No SIGNATURE: Quincy Alonzo APRN.CNP PATIENT NAME: Orion Dumont DATE: August 06, 2024 TIME: 12:18 PM documented in this encounter [facility] 08-02-2024 Note HNO ID: [id number] Author: KHADAR HAYNES MA Service: ? Author Type: Television Newscast Director Type: Progress Notes Filed: 08/02/2024 08:56 Note Text: POPULATION HEALTH NAVIGATION OUTREACH Action/FYI Provider Action/FYI Vicotr M team Please call, his heart doctor is retiring, Please assist getting a new Cardiac doctor, would like appointment in [place] if possible. 3rd attempt- Called and left a voicemail for patient to call me back directly. Patient just had 2024 Medicare wellness exam. With DX [place] is not a location to get scheduled at as a new patient. Patient can only been seen at 3 different locations. CDM Reason for Outreach Community Monitoring/Network Navigator Pools AND Phone Line: CM Pool Care Gaps due: N/A Patient Contacted: Unable or unnecessary to reach patient: Left message Navigation Signature: Khadar Haynes MA August 02, 2024 8:55 AM [facility] 07-31-2024 History of Presen t illness Narrative POPULATION HEALTH NAVIGATION OUTREACH Action/FYI Provider Action/FYI Victor M team Please call, his heart doctor is retiring, Please assist getting a new Cardiac doctor, would like appointment in [place] if possible. 1st attempt- Called and left a voicemail for patient to call me back directly. Mychart message sent Patient just had 2024 Medicare wellness exam. With DX [place] is not a location to get scheduled at as a new patient. Patient can only been seen at 3 different locations. CDM Reason for Outreach Community Monitoring/Network Navigator Pools & Phone Line: CM Pool Care Gaps due: N/A Patient Contacted: Unable or unnecessary to reach patient: Left message MyChart message sent Navigation Signature: Khadar Haynes MA July 31, 2024 2:36 PM Images from the original note were not included. CDM Care Path Telephonic Outreach Provider Action/FYI Victor M team Please call, his heart doctor is retiring, Please assist getting a new Cardiac doctor, would like appointment in [place] if possible. Patient identified by Name and Date of . Discussed care with patient. Program Details Chronic Disease Management Status: Enrolled Effective Dates: 07/18/2024 - present Responsible Staff: Jenn Vidales RN Support and Services: Hypertension, Chronic Obstructive Pulmonary Disease (COPD), Congestive Heart Failure (CHF) Program Goals Targets Target Due Completed Completed By Outcome General education provided (managing stress, where to go/how to contact, etc.) 08/19/2024 -- -- -- Annual Medicare Wellness visit addressed 10/17/2024 -- -- -- Annual Pulmonology visit addressed 10/17/2024 -- -- -- Biannual Cardiology visit addressed 10/17/2024 -- -- -- Biannual PCP visit addressed 10/17/2024 -- -- -- Comprehensive CHF education provided 10/17/2024 -- -- -- Comprehensive COPD education provided 10/17/2024 -- -- -- Patient-stated goal addressed (add comment) 10/17/2024 -- -- -- Get back to working out Comprehensive HTN education provided 10/17/2024 07/31/2024 Jenn Vidales RN Complete HTN lab care gaps addressed 10/17/2024 07/31/2024 Jenn Vidales RN Complete/Scheduled Intake assessments completed: ADLs, Fall Risk, SDOH 08/19/2024 07/18/2024 Jenn Vidales RN Complete Assessments CDM Assessment Medications: Do you have any questions about taking your medications or which medications you should be taking?: No Do you need any medication refills at this time, including any of the medication you might take only when needed?: No Social: It can be normal to feel anxious or down during a time like this. Would you like to talk to a mental health professional about how you have been feeling?: No Symptoms: Are you experiencing any new or worsening symptoms that you need to talk about today?: No ADLs No documentation this encounter Fall Risk No documentation this encounter SDOH No documentation this encounter Interventions The following were addressed during this visit: - HTN lab care gaps addressed - Comprehensive HTN education provided - Month 1: Review Individual Blood Pressure Target (If established by provider) - Month 1: Provide HTN Education: What is High Blood Pressure - Month 1: Provide HTN Education: When to call your Doctor, When to seek Emergency Care - Month 2: Provide HTN Education: Sodium Controlled Diets - Month 2: Provide HTN Education: High Blood Pressure & Nutrition - Month 3: Provide HTN Education: Understanding Medications - Month 3: Provide HTN Education: Medication Compliance - Bi-Weekly Outreach (Recurring) Disposition Based on paediatrician, the following disposition is advised: No action needed Jenn Vidales RN July 31, 2024 12:48 PM documented in this encounter [facility] 07-31-2024 Note HNO ID: [id number] Author: KHADAR HAYNES MA Service: ? Author Type: Television Newscast Director Type: Progress Notes Filed: 07/31/2024 14:52 Note Text: POPULATION HEALTH NAVIGATION OUTREACH Action/FYI Provider Action/FYI Victor M team Please call, his heart doctor is retiring, Please assist getting a new Cardiac doctor, would like appointment in [place] if possible. 1st attempt- Called and left a voicemail for patient to call me back directly. [employer] message sent Patient just had 2024 Medicare wellness exam. With DX [place] is not a location to get scheduled at as a new patient. Patient can only been seen at 3 different locations. CDM Reason for Outreach Community Monitoring/Network Navigator Pools AND Phone Line: CM Pool Care Gaps due: N/A Patient Contacted: Unable or unnecessary to reach patient: Left message [employer] message sent Navigation Signature: Khadar Haynes MA July 31, 2024 2:36 PM [facility] 07-31-2024 Note HNO ID: [id number] Author: JENN VIDALES RN Service: ? Author Type: Registered Nurse Type: Progress Notes Filed: 07/31/2024 12:57 Note Text: CDM Care Path Telephonic Outreach Provider Action/FYI Victor M team Please call, his heart doctor is retiring, Please assist getting a new Cardiac doctor, would like appointment in [place] if possible. Patient identified by Name and Date of . Discussed care with patient. Program Details Chronic Disease Management Status: Enrolled Effective Dates: 07/18/2024 - present Responsible Staff: Jenn Vidales RN Support and Services: Hypertension, Chronic Obstructive Pulmonary Disease (COPD), Congestive Heart Failure (CHF) Program Goals Targets Target Due Completed Completed By Outcome General education provided (managing stress, where to go/how to contact, etc.) 08/19/2024 -- -- -- Annual Medicare Wellness visit addressed 10/17/2024 -- -- -- Annual Pulmonology visit addressed 10/17/2024 -- -- -- Biannual Cardiology visit addressed 10/17/2024 -- -- -- Biannual PCP visit addressed 10/17/2024 -- -- -- Comprehensive CHF education provided 10/17/2024 -- -- -- Comprehensive COPD education provided 10/17/2024 -- -- -- Patient-stated goal addressed (add comment) 10/17/2024 -- -- -- Get back to working out Comprehensive HTN education provided 10/17/2024 07/31/2024 Jenn Vidales RN Complete HTN lab care gaps addressed 10/17/2024 07/31/2024 Jenn Vidales RN Complete/Scheduled Intake assessments completed: ADLs, Fall Risk, SDOH 08/19/2024 07/18/2024 Jenn Vidales RN Complete Assessments CDM Assessment Medications: Do you have any questions about taking your medications or which medications you should be taking?: No Do you need any medication refills at this time, including any of the medication you might take only when needed?: No Social: It can be normal to feel anxious or down during a time like this. Would you like to talk to a mental health professional about how you have been feeling?: No Symptoms: Are you experiencing any new or worsening symptoms that you need to talk about today?: No ADLs No documentation this encounter Fall Risk No documentation this encounter SDOH No documentation this encounter Interventions The following were addressed during this visit: - HTN lab care gaps addressed - Comprehensive HTN education provided - Month 1: Review Individual Blood Pressure Target (If established by provider) - Month 1: Provide HTN Education: What is High Blood Pressure - Month 1: Provide HTN Education: When to call your Doctor, When to seek Emergency Care - Month 2: Provide HTN Education: Sodium Controlled Diets - Month 2: Provide HTN Education: High Blood Pressure AND Nutrition - Month 3: Provide HTN Education: Understanding Medications - Month 3: Provide HTN Education: Medication Compliance - Bi-Weekly Outreach (Recurring) Disposition Based on paediatrician, the following disposition is advised: No action needed Jenn Vidales RN July 31, 2024 12:48 PM [facility] 07-31-2024 Note Patient Outreach ([facility] TIMORION ([id number]) 1950 M Vendor Date Time Provider Department 07/31/24 JENN VIDALES During your visit today, we recorded the following information about you: Jenn Vidales RN 07/31/2024 12:57 PM Signed CDM Care Path Telephonic Outreach Provider Action/ Victor M team Please call, his heart doctor is retiring, Please assist getting a new Cardiac doctor, would like appointment in [place] if possible. Patient identified by Name and Date of . Discussed care with patient. Program Details Chronic Disease Management Status: Enrolled Effective Dates: 07/18/2024 - present Responsible Staff: Jenn Vidales RN Support and Services: Hypertension, Chronic Obstructive Pulmonary Disease (COPD), Congestive Heart Failure (CHF) Program Goals Targets Target Due Completed Completed By Outcome General education provided (managing stress, where to go/how to contact, etc.) 08/19/2024 -- -- -- Annual Medicare Wellness visit addressed 10/17/2024 -- -- -- Annual Pulmonology visit addressed 10/17/2024 -- -- -- Biannual Cardiology visit addressed 10/17/2024 -- -- -- Biannual PCP visit addressed 10/17/2024 -- -- -- Comprehensive CHF education provided 10/17/2024 -- -- -- Comprehensive COPD education provided 10/17/2024 -- -- -- Patient-stated goal addressed (add comment) 10/17/2024 -- -- -- Get back to working out Comprehensive HTN education provided 10/17/2024 07/31/2024 Jenn Vidales RN Complete HTN lab care gaps addressed 10/17/2024 07/31/2024 Jenn Vidales RN Complete/Scheduled Intake assessments completed: ADLs, Fall Risk, SDOH 08/19/2024 07/18/2024 Jenn Vidales RN Complete Assessments CDM Assessment Medications: Do you have any questions about taking your medications or which medications you should be taking?: No Do you need any medication refills at this time, including any of the medication you might take only when needed?: No Social: It can be normal to feel anxious or down during a time like this. Would you like to talk to a mental health professional about how you have been feeling?: No Symptoms: Are you experiencing any new or worsening symptoms that you need to talk about today?: No ADLs No documentation this encounter Fall Risk No documentation this encounter SDOH No documentation this encounter Interventions The following were addressed during this visit: - HTN lab care gaps addressed - Comprehensive HTN education provided - Month 1: Review Individual Blood Pressure Target (If established by provider) - Month 1: Provide HTN Education: What is High Blood Pressure - Month 1: Provide HTN Education: When to call your Doctor, When to seek Emergency Care - Month 2: Provide HTN Education: Sodium Controlled Diets - Month 2: Provide HTN Education: High Blood Pressure AND Nutrition - Month 3: Provide HTN Education: Understanding Medications - Month 3: Provide HTN Education: Medication Compliance - Bi-Weekly Outreach (Recurring) Disposition Based on paediatrician, the following disposition is advised: No action needed Jenn Vidales RN July 31, 2024 12:48 PM Khadar Haynes MA 07/31/2024 2:52 PM Signed POPULATION HEALTH NAVIGATION OUTREACH Action/FYI Provider Action/FYI Victor M team Please call, his heart doctor is retiring, Please assist getting a new Cardiac doctor, would like appointment in [place] if possible. 1st attempt- Called and left a voicemail for patient to call me back directly. [employer] message sent Patient just had 2024 Medicare wellness exam. With DX [place] is not a location to get scheduled at as a new patient. Patient can only been seen at 3 different locations. CDM Reason for Outreach Community Monitoring/Network Navigator Pools AND Phone Line: Pool Care Gaps due: N/A Patient Contacted: Unable or unnecessary to reach patient: Left message [employer] message sent Navigation Signature: Khadar Haynes MA July 31, 2024 2:36 PM Khadar Haynes MA 08/02/2024 8:56 AM Signed POPULATION HEALTH NAVIGATION OUTREACH Action/FYI Provider Action/FYI Victor M team Please call, his heart doctor is retiring, Please assist getting a new Cardiac doctor, would like appointment in [place] if possible. 3rd attempt- Called and left a voicemail for patient to call me back directly. Patient just had 2024 Medicare wellness exam. With DX [place] is not a location to get scheduled at as a new patient. Patient can only been seen at 3 different locations. CDM Reason for Outreach Community Monitoring/Network Navigator Pools AND Phone Line: Pool Care Gaps due: N/A Patient Contacted: Unable or unnecessary to reach patient: Left message Navigation Signature: Khadar Haynes MA August 02, 2024 8:55 AM Allergies As of Date: 07/31/2024 Noted Allergy Reaction RIVAROXABAN 03/02/2013 2 - Rash SULFA (SULFONAMIDE (more content not included)... [facility] 07-26-2024 Note HNO ID: [id number] Author: KUSUM JEFFRIES LPCC Service: ? Author Type: Counselor Type: Progress Notes Filed: 07/26/2024 08:20 Note Text: Behavioral Health Social Work Progress Note Patient identified for [facility] from: CDM Reason for referral: [facility] Behavioral Health Resources: Psychology - talk therapy [facility] encounter type: Elo7hart Message Attempts to Outreach: 3 attempts Referral made: Psychology - External, Psychology - Internal Psychology-Internal referral type: Therapy Psychology-External referral type: Therapy Reason for external referral: Patient choice Final Disposition: Resources given Patient Discharged?: Yes Patient reported that caregiver was able to meet their needs today?: N/A therapist sent patient MyChart follow up message offering assistance with linkage to behavioral health services. AZ Morales-s July 26, 2024 [facility] 07-26-2024 History of Presen t illness Narrative Behavioral Health Social Work Progress Note Patient identified for [facility] from: CDM Reason for referral: [facility] Behavioral Health Resources: Psychology - talk therapy [facility] encounter type: MyChart Message Attempts to Outreach: 3 attempts Referral made: Psychology - External, Psychology - Internal Psychology-Internal referral type: Therapy Psychology-External referral type: Therapy Reason for external referral: Patient choice Final Disposition: Resources given Patient Discharged?: Yes Patient reported that caregiver was able to meet their needs today?: N/A therapist sent patient MyChart follow up message offering assistance with linkage to behavioral health services. AZ Morales-s July 26, 2024 documented in this encounter [facility] 07-22-2024 Discharge summary [facility] 07-22-2024 Note HNO ID: [id number] Author: JACKELINE HAIR APRN.RAJAN Service: ? Author Type: Nurse Practitioner Type: Progress Notes Filed: 07/22/2024 16:33 Note Text: At this time patient came in because he has a wound on his scrotum that is continuously bleeding. Patient is going through multiple woman's pads. Patient is on a blood thinner and says it has been bleeding since yesterday. At this time due to area being significantly vascular patient is being referred to the emergency room for more thorough evaluation and treatment. Patient was agreeable and will take his self. [facility] 07-22-2024 History of Present illness Narrative At this time patient came in because he has a wound on his scrotum that is continuously bleeding. Patient is going through multiple woman's pads. Patient is on a blood thinner and says it has been bleeding since yesterday. At this time due to area being significantly vascular patient is being referred to the emergency room for more thorough evaluation and treatment. Patient was agreeable and will take his self. documented in this encounter [facility] 07-22-2024 Discharge summary Note Date/Time July 22, 2024 9:34pm [facility] Medical Records Department [address] [place] [address] Emergency Department Summary 07/22/24 MR#: [id number] Acct: [id number] Name: ORION DUMONT Bianca Rep #:[id number] : 1950 73 From: Cortez Maldonado MD PCP: Dr. Florian Gonzalez MD Status:R EG ER Location: ED HPI History of Present Illness Chief Complaint: Male Pain/Injury Informant: patient Pain Onset: Yesterday (Last night) Timing: Continuous Current Severity: Mild Maximum Severity: Mild Narrative Narrative: 73-year-old male on Eliquis which she has been on for years for A-fib. 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 He says from time to time they bleed. Began bleeding last night when he was bathing and he scrubbed off a scab. He has not been able to get the bleeding to stop. Denies any other complaints. Also stated he was going to see his primary care physician to update his tetanus and wanted me to do that today. He denies any nosebleeds. No hematuria. No rectalbleeding. No significant bruising. Prior similar symptoms: Yes Recent Illness/Hospitalization: No PFSH PFS Medical History Afib Home Medications ?Medication ?Instructions ?Recorded ?Last Taken ?Type albuterol sulfate 90 mcg/actuation 90 mcg IH PRN PRN W heezing 10/15/19 Unknown History breath activated powder inhaler,sensor alfuzosin 10 mg tablet,extended 10 mg PO DAILY 0 Unknown History release 24 hr apixaban 5 mg tablet 5 mg PO BID 10/15/19 Unknown History atorvastatin 20 mg tablet 20 mg PO DAILY 10/15/19 Unkn own History bupropion HCl 200 mg tablet,12 hr 100 mg PO DAILY 10/27 Unknown History sustained-release buspirone 15 mg tablet 15 mg PO BID 10/15/19 Unknow n History calcium 315 mg (as 1 ea PO DAILY 10/15/19 Unkno wn History citrate)-vitamin D3 6.25 mcg (250 unit) tablet cholecalciferol (vitamin D3) 25 1,000 unit PO DAILY Unknown History mcg (1,000 unit) tablet metoprolol succinate 25 mg 25 mg PO DAILY 10/15/19 Unk nown History tablet,extended release 24 hr midodrine 10 mg tablet 10 mg PO BID 10/15/19 Unknow n History multivitamin 1 ea PO DAILY 10/15/19 Unkno wn History pyridoxine (vitamin B6) 100 mg 100 mg PO DAILY 0 Unknown History tablet sertraline 100 mg tablet 100 mg PO DAILY 10/15/19 Unk nown History pantoprazole 40 mg tablet,delayed 40 mg PO DAILY 07/21 Unknown History release hydrocodone-acetaminophen 5-325mg 1 tab PO Q6H PRN PRN Pain 3 days 01/29/22 Unknown Rx 5mg-325mg #10 TABLETS orphenadrine citrate 100 mg 100 mg PO QHS PRN PRN musc le spasm 01/29/22 Unknown Rx tablet,extended release #10 tabs Allergy/AdvReac Type Severity Reaction Status Date / Time rivaroxaban (From Xarelto) Allergy Rash Verified 10/28/22 18:09 Sulfa (Sulfonamide Allergy Rash Verified 10/28/22 18:09 Antibiotics) niacin AdvReac Mild Rash Verified 07/22/24 16:07 Surgical History H/O total hip arthroplasty Gastric bypass status for obesity Social History Smoking Status: Never smoker ROS ROS ED ROS Narrative Denies recent illness. Constitutional Constitutional ED: Denies chills or fever(s) Eyes Eyes: Denies blurry vision ENT ENT ED: Denies ear pain Cardiovascular Cardiovascular: Denies chest pain Respiratory/Chest Respiratory/Chest: Denies cough or dyspnea Gastrointestinal Gastrointestinal: Denies abdominal pain Genitourinary Genitourinary ED: Denies dysuria or hematuria Musculoskeletal Musculoskeletal: Denies arthralgias Integumentary Denies abscess Neurologic Neurologic: Denies headache(s) Psychiatric Psychiatric: Denies anxiety or depression Endocrine Endocrinology: Denies polydipsia Hematologic/Lymphatic Hematologic/Lymphatic: Reports easy bleeding; Denies lymphadenopathy Allergic/Immunologic Allergic/Immunologic ED: Denies mouth swelling, tongue swelling or urticaria EXAM Physical Exam Narrative Exam Narrative: 73-year-old male sitting upright in bed. Vital signs are stable afebrile. H EENT exam pupils round reactive light. Moist mucous membranes. Neck nontender. Lungs clear. Heart A-fib rate about 80 no murmur. Chest wall ribs nontender. Abdomen soft nontender. Moving all 4 extremities. Nontender. Trace edema. Normal strength. Neurologically is awake alert. External exam. Left side of the scrotum is varicosities. 1 is mildly oozing. He says it has slowed withdirect pressure. There is no signs of infection. No cellulitis. Const Vital Signs: 07/22/24 16:07 07/22/24 21:10 Temperature 97.6 F L Temperature Source Oral Pulse Rate 81 Respiratory Rate 16 Blood Pressure 116/72 139/96 H Blood Pressure Mean 86 110 Pulse Ox 98 Oxygen Delivery Method Room Air Positive well nourished and well developed; Negative for cachectic, contracturesor unkempt General Appearance ED: well developed and NAD; Negative for unkempt, cachectic or contractures Nutritional Appearance: Negative for cachectic HEENT Reports moist mucous membranes normocephalic and atraumatic; Negative for trauma or tenderness Eyes PERRL and EOMs intact bilaterally General Eye ED: Negative for pale conjunctiva or scleral icterus Neck no lymphadenopathy, supple and no JVD General: Negative for tenderness Resp normal respiratory effort and clear to auscultation bilaterally Effort and Inspection: Negative for retractions Auscultation: Negative for rales, rhonchi, wheezes or diminished lung sounds Cardio Negative for regular rate or regular rhythm Cardio Narrative: A-fib rate about 80. Rhythm: abnormal rhythm GI non-tender, non-distended and no masses Auscultation: normoactive bowel sounds Palpation: soft; Negative for tender or guarding Narrative: Varicosities in the left hemiscrotum. 1 mildly bleeding. Back/Spine no CVA tenderness Extremity Negative for normal to inspection General Extremety ED: Yes edema General Extremity: edema Neuro oriented x3, CN's II-XII intact bilaterally, moves all extremities and no focal motor deficits Sensorium / Orientation: alert, oriented to person, oriented to place and oriented to time Motor Exam: strength 5/5 throughout Psych mental status grossly normal Appearance: Negative for unkempt Skin Lesions: no lesions Rashes: no rashes MDM MDM MDM Narrative Medical decision making narrative: 73-year-old male on Eliquis with bleeding from left scrotal varicosity. Direct pressure and Surgicel. Will check a CBC and chemistry. Repeat exam patient is doing well at 9:25 PM. Bleeding is completely resolved. He held direct pressure with Surgicel on it. The bleeding is stopped. He will be discharged to home with outpatient follow-up as needed. Return if bleeding continues. Lab Data Attestation: I reviewed the patient's lab results. Lab results narrative: CBC shows a white count 4.3. H&H 12.2 and 36.2 which is his baseline anemia. Platelets 191. Electrolytes show a gap of 8. Normal BUN and creatinine. Glucose is only 64 alexandra rechecked prior to discharge. Labs: Laboratory Results - last 24 hr 07/22/24 16:50 WBC 4.3 L RBC 3.95 L Hgb 12.2 L Hct 36.2 L MCV 91.6 MCH 30.9 MCHC 33.7 RDW Std Deviation 48.3 H RDW Coeff of Anmol 14.4 Plt Count 191 MPV 11.3 Immature Gran % (Auto) 0.200 Neut % (Auto) 47.6 Lymph % (Auto) 41.3 H [place] % (Auto) 5.8 Eos % (Auto) 4.4 Baso % (Auto) 0.7 Absolute Neuts (auto) 2.1 Absolute Lymphs (auto) 1.78 Nucleated RBC % 0 Sodium 140 Potassium 4.1 Chloride 108 Carbon Dioxide 24.5 Anion Gap 8 BUN 17 Creatinine 0.86 Estim Creat Clear Calc 99.80 Est GFR (MDRD) Non-Af 92 BUN/Creatinine Ratio 19.2 Glucose 64 L Calcium 9.1 Discharge Plan Triage Chief Complaint: Male Pain/Injury ED Provider: Cortez Maldonado Dx/Rx/DC Orders Clinical Impression: Chronic anticoagulation, Scrotal bleeding Prescriptions: No Action multivitamin 1 EACH tablet 1 ea PO DAILY atorvastatin 20 MG tablet 20 mg PO DAILY sertraline 100 MG tablet 100 mg PO DAILY pyridoxine (vitamin B6) 100 MG tablet 100 mg PO DAILY metoprolol succinate 25 MG tablet extended release 24 hr 25 mg PO DAILY buspirone 15 MG tablet 15 mg PO BID midodrine 10 MG tablet 10 mg PO BID bupropion HCl 200 MG tablet sustained-release 12 hr 100 mg PO DAILY alfuzosin 10 MG tablet extended release 24 hr 10 mg PO DAILY cholecalciferol (vitamin D3) 1,000 UNIT tablet 1,000 unit PO DAILY calcium citrate-vitamin D3 1 EACH tablet 1 ea PO DAILY apixaban 5 MG tablet 5 mg PO BID albuterol sulfate 90 MCG aero powdr breath act w/sensor 90 mcg IH PRN PRN (Reason: Wheezing) pantoprazole 40 MG tablet 40 mg PO DAILY hydrocodone-acetaminophen [hydrocodone-acetaminophen] 5-325 mg tablet 1 tab PO Q6H PRN PRN (Reason: Pain) 3 Days Qty: 10 0RF orphenadrine citrate 100 mg tablet extended release 100 mg PO QHS PRN PRN (Reason: muscle spasm) Qty: 10 0RF Primary Care Provider: Florian Gonzalez Referrals: Florian Gonzalez MD [Primary Care Provider] - As Needed Activity Restrictions/Additional Instructions: You can take that dressing off in 1 to 2 days. I would take it off gently with water. I would hold your blood thinner the Eliquis tomorrow. And restart it normally on Monday. If it rebleeds hold direct pressure if you are unable get it to stop return. Print Language: Macanese Disposition Disposition: Home, Self Care What to do if you have Problems For any increased pain, shortness of breath, bleeding, nausea or vomiting, chestpain, or any unexpected problems, contact your Primary Care Provider. Call [facility] ([phone]) or report to the closest Emergency Room. Call 911 if necessary. 07/22/242133 <Electronically signed by Cortez Maldonado MD> Cosigner Signature (if applicable): CC: Dr. Florian Gonzalez MD ~ Signed [facility] Work Phone: [phone] [phone] Hospital Discharge instructions Additional Instructions You can take that dressing off in 1 to 2 days. I would take it off gently with water. I would hold your blood thinner the Eliquis tomorrow. And restart it normally on Monday. If it rebleeds hold direct pressure if you are unable get it to stop return. [facility] Work Phone: [phone] 248-663204-11-2025 Telephone encounter Note* Telephone Encounter - Kusum Jeffries LPCC - 07/19/2024 11:05 AM EDT Behavioral Health Social Work Progress Note Patient identified for [facility] from: M Reason for referral: Resources Behavioral Health Resources: Psychology - talk therapy [facility] encounter type: Telephone Encounter Attempts to Outreach: 1 attempt Patient Discharged?: No Patient reported that caregiver was able to meet their needs today?: N/A Phone call placed today that went to [employer]. Left my contact information and brief nature of call. Initial outreach also completed via [employer] sending list of in network providers with insurance. [place] Morales-S July 19, 2024 [facility] Work Phone: [phone] Miscellaneous Notes* Telephone Encounter - Kusum Jeffries LPCC - 07/19/2024 11:05 AM EDT Behavioral Health Social Work Progress Note Patient identified for [facility] from: CDM Reason for referral: Resources Behavioral Health Resources: Psychology - talk therapy [facility] encounter type: Telephone Encounter Attempts to Outreach: 1 attempt Patient Discharged?: No Patient reported that caregiver was able to meet their needs today?: N/A Phone call placed today that went to [employer]. Left my contact information and brief nature of call. Initial outreach also completed via [employer] sending list of in network providers with insurance. [place] Morales-S July 19, 2024 documented in this encounterMemorial [facility] System04-10-2025 NoteHNO ID: [id number] Author: JENN VIDALES RN Service: ? Author Type: Registered Nurse Type: Progress Notes Filed: 07/18/2024 11:57 Note Text: CDM ENROLLMENT Provider Action / FYI: [facility] please assist in giving him names of people he can talk to in his area. ( [place]) thank you Given H@H phone number. Is caring for his sister and it is hard on him. Agrees to [facility] consult of assistance in finding someone in his area to talk to about the stress. Aware RN will call again in about two weeks. Patient identified by name and date of . Discussed care with patient. Program Details Chronic Disease Management Status: Identified Start Date: 07/15/2024 Responsible Staff: Jenn Vidales RN Support and Services: Assessments CDM Assessment Medications: Do you have any questions about taking your medications or which medications you should be taking?: No Do you need any medication refills at this time, including any of the medication you might take only when needed?: No Social: It can be normal to feel anxious or down during a time like this. Would you like to talk to a mental health professional about how you have been feeling?: Yes (would like to speak with someone in his area) Symptoms: Are you experiencing any new or worsening symptoms that you need to talk about today?: No ADLs Patients can perform the following activities without help: Dressing: Yes Bathing: Yes Doing laundry: Yes Climbing a flight of stairs: Yes Walking briskly: No Instrumental activities of daily living Do you drive a car?: No Do you need help from others to take care of things inside the house, for example: laundry, house cleaning, preparing meals?: No Do you need help from others with errands outside the house, for example: shopping for groceries or clothes, going medical appointments?: No Fall Risk One or more falls in the last year:: No Any near falls in the last year?: No Advised to use a cane or walker to get around safely:: No Feels unsteady when walking:: No Steadies self on furniture while walking at home:: Yes Worried about falling:: Yes Needs to push with hands when rising from a chair:: Yes Has trouble stepping up onto a curb:: No Often has to lam to the toilet:: Yes Has lost some feeling in feet:: No Takes medicine that makes him/her feel lightheaded or more tired than usual:: No Takes medicine to sleep or improve mood:: No Fall risk factors:: Incontinence SDOH No documentation this encounter Interventions No checklist tasks for this episode were completed during this visit, and no tasks for this episode are pending completion. Jenn Vidales RN July 18, 2024 11:54 [facility]04-10-2025 History of Present illness Narrative* Jenn Vidales RN - 07/18/2024 11:54 AM EDT CDM ENROLLMENT Provider Action / FYI: [facility] please assist in giving him names of people he can talk to in his area. ( [place]) thank you Given H@H phone number. Is caring for his sister and it is hard on him. Agrees to [facility] consult of assistance in finding someone in his area to talk to about the stress. Aware RN will call again in about two weeks. Patient identified by name and date of . Discussed care with patient. Program Details Chronic Disease Management Status: Identified Start Date: 07/15/2024 Responsible Staff: Jenn Vidales RN Support and Services: Assessments CDM Assessment Medications: Do you have any questions about taking your medications or which medications you should be taking?:No Do you need any medication refills at this time, including any of the medication you might take only when needed?: No Social: It can be normal to feel anxious or down during a time like this. Would you like to talk to a mental health professional about how you have been feeling?: Yes (would like to speak with someone in hisarea) Symptoms: Are you experiencing any new or worsening symptoms that you need to talk about today?: No ADLs Patients can perform the following activities without help: Dressing: Yes Bathing: Yes Doing laundry: Yes Climbing a flight of stairs: Yes Walking briskly: No Instrumental activities of daily living Do you drive a car?: No Do you need help from others to take care of things inside the house, for example: laundry, house cleaning, preparing meals?: No Do you need help from others with errands outside the house, for example: shopping for groceries orclothes, going medical appointments?: No Fall Risk One or more falls in the last year:: No Any near falls in the last year?: No Advised to use a cane or walker to get around safely:: No Feels unsteady when walking:: No Steadies self on furniture while walking at home:: Yes Worried about falling:: Yes Needs to push with hands when rising from a chair:: Yes Has trouble stepping up onto a curb:: No Often has to lam to the toilet:: Yes Has lost some feeling in feet:: No Takes medicine that makes him/her feel lightheaded or more tired than usual:: No Takes medicine to sleep or improve mood:: No Fall risk factors:: Incontinence SDOH No documentation this encounter Interventions No checklist tasks for this episode were completed during this visit, and no tasks for this episodeare pending completion. Jenn Vidales RN July 18, 2024 11:54 AM * Jenn Vidales RN - 07/17/2024 2:00 PM EDT Reports he would like the calls. Given the H@H phne number. He is unable to continue the call because he needs to go to his [facility]'s [facility]. documented in this encounterMemorial Health System04-09-2025 NoteHNO ID: [id number] Author: JENN VIDALES RN Service: ? Author Type: Registered Nurse Type: Progress Notes Filed: 07/18/2024 11:57 Note Text: Reports he would like the calls. Given the H@H phne number. He is unable to continue the call because he needs to go to his [facility]'s team meeting [facility] the [facility]04-09-2025 NotePatient Outreach ([facility]) ORION DUMONT ([id number]) 1950 M Vendor Date Time Provider Department 07/17/24 JENN VIDALES [facility] [place] visit today, we recorded the following information about you: Jenn Vidales RN 07/18/2024 11:57 AM Signed Reports he would like the calls. Given the H@H phne number. He is unable to continue the call because he needs to go to his [facility]'s team meeting [facility]. Jenn Vidales RN 07/18/2024 11:57 AM Signed CDM ENROLLMENT Provider Action / FYI: [facility] please assist in giving him names of people he can talk to in his area. ( [place]) thank you Given H@H phone number. Is caring for his sister and it is hard on him. Agrees to [facility] consult of assistance in finding someone in his area to talk to about the stress. Aware RN will call again in about two weeks. Patient identified by name and date of . Discussed care with patient. Program Details Chronic Disease Management Status: Identified Start Date: 07/15/2024 Responsible Staff: Jenn Vidales RN Support and Services: Assessments CDM Assessment Medications: Do you have any questions about taking your medications or which medications you should be taking?: No Do you need any medication refills at this time, including any of the medication you might take only when needed?: No Social: It can be normal to feel anxious or down during a time like this. Would you like to talk to a mental health professional about how you have been feeling?: Yes (would like to speak with someone in his area) Symptoms: Are you experiencing any new or worsening symptoms that you need to talk about today?: No ADLs Patients can perform the following activities without help: Dressing: Yes Bathing: Yes Doing laundry: Yes Climbing a flight of stairs: Yes Walking briskly: No Instrumental activities of daily living Do you drive a car?: No Do you need help from others to take care of things inside the house, for example: laundry, house cleaning, preparing meals?: No Do you need help from others with errands outside the house, for example: shopping for groceries or clothes, going medical appointments?: No Fall Risk One or more falls in the last year:: No Any near falls in the last year?: No Advised to use a cane or walker to get around safely:: No Feels unsteady when walking:: No Steadies self on furniture while walking at home:: Yes Worried about falling:: Yes Needs to push with hands when rising from a chair:: Yes Has trouble stepping up onto a curb:: No Often has to lam to the toilet:: Yes Has lost some feeling in feet:: No Takes medicine that makes him/her feel lightheaded or more tired than usual:: No Takes medicine to sleep or improve mood:: No Fall risk factors:: Incontinence SDOH No documentation this encounter Interventions No checklist tasks for this episode were completed during this visit, and no tasks for this episode are pending completion. Jenn Vidales RN July 18, 2024 11:54 AM Allergies As of Date: 07/17/2024 Noted Allergy Reaction RIVAROXABAN 03/02/2013 2 - Rash SULFA (SULFONAMIDE ANTIBIOTICS) 03/18/2008 5 - Intolerance 4 - Hives Comments: Pt says that he has had silvadene cream in the past after cardioversions without side effects ADHESIVE TAPE (ROSINS) 10/08/2009 2 - Rash NIACIN 05/12/2023 14 - Other: See Comments Comments: Itching, head lam WOOL 11/25/2009 9 - Itching WOOL 03/09/2010 9 - Itching DICLOFENAC SODIUM 02/01/2016 2 - Rash Comments: Fixed drug eruption Date Reviewed: 05/28/2024 Reviewed by: Teri Cummings LPN - Fully Assessed Prescriptions as of 07/18/2024 - QUEtiapine (SEROQUEL) 50 mg tablet Take 1 tablet by mouth daily at bedtime. - lamoTRIgine (LAMICTAL) 100 mg tablet Take 1 tablet by mouth once daily. - sertraline (ZOLOFT) 100 mg tablet Take 1 tablet by mouth once daily. - busPIRone (BUSPAR) 15 mg tablet Take 1 tablet by mouth every morning. - benzonatate (TESSALON PERLE) 100 mg capsule Take 1-2 capsules by mouth three times a day as needed for cough. - albuterol HFA (PROVENTIL HFA) 90 mcg/actuation inhaler Inhale 1-2 Puffs as instructed four times a day as needed for wheezing/shortness of breath. - cetirizine (ZYRTEC) 10 mg tablet Take 1 tablet by mouth once daily. for nasal drainage and phlegm - atorvastatin (LIPITOR) 20 mg tablet Take 1 tablet by mouth once daily. - bisoprolol (ZEBETA) 5 mg tablet Take 1 tablet by mouth once daily. - apixaban (ELIQUIS) 5 mg tab(s) Take 1 tablet by mouth two times a day. - fludrocortisone (FLORINEF) 0.1 mg tablet Take 1 tablet by mouth once daily. - ciclopirox (LOPROX) 0.77 % cream Apply to affected area two times a day as needed. - pantoprazole DR (PROTONIX) 40 mg tablet Take 1 tablet by mouth daily before breakfast. Take on empty stomach, 1/2 hr before meal (more content not included)...[facility]03-24-2025 Telephone encounter Note* Telephone Encounter - Quincy Alonzo APRN.FACING GRINDER - 07/01/2024 4:22 PM EDT Please notify the patient that I am glad that Seroquel 50 mg appears to be helping his symptoms. I have sent a new prescription of Seroquel 50 mg for 90 days to the [facility]. [facility]03-24-[facility] Miscellaneous Notes* Telephone Encounter - Quincy Alonzo APRN.CNP - 07/01/2024 4:22 PM EDT Please notify the patient that I am glad that Seroquel 50 mg appears to be helping his symptoms. I have sent a new prescription of Seroquel 50 mg for 90 days to the [facility] pharmacy. 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 She has an appointment in [place] tomorrow and he doesn't think he can make it back in time for his OV with here. He did request a refill for his seroquel 50 mg be sent to [facility] and NOT [facility]. Pt only has 5 tabs left. He gets way less if he uses mail order. 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 Agreed to take any cancellation that come available in the future. Katya Salmon LPN documented in this encounterMemorial Health System03-24-2025 Telephone encounter Note * Telephone Encounter - Katya Salmon LPN - 07/01/2024 1:38 PM EDT Call placed to patient to reschedule his OV for tomorrow, His sister has been in and out of the hospital and he is her caregiver. She has an appointment in [place] tomorrow and he doesn't think he can make it back in time for his OV with here. He did request a refill for his seroquel 50 mg be sent to [facility] NOT [facility]. Pt only has 5 tabs left. He gets way less if he uses mail order. 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 Agreed to take any cancellation that come available in the future. Katya Salmon LPN [facility]03-12-2025 Telephone encounter Note* Telephone Encounter - Katya Salmon LPN - 06/19/2024 11:36 AM EDT Next visit 07/02/24 Will need to refill before visit. (Expires 06/27/24) Seroquel 50 mg 1 tab [facility] [place] L[place] [facility]03-12-2025 Miscellaneous Notes* Telephone Encounter - Katya Salmon LPN - 06/19/2024 11:36 AM EDT Next visit 07/02/24 Will need to refill before visit. (Expires 06/27/24) Seroquel 50 mg 1 tab [facility] [place] L[place] documented in this encounterMemorial Health System03-05-2025 Telephone encounter Note * Telephone Encounter - Katya Salmon LPN - 06/12/2024 9:37 AM EST Call placed to patient notifying of providers message. Patient voices understanding. Katya Salmon LPN [facility]03-05-2025 Miscellaneous Notes* Telephone Encounter - Katya Salmon LPN - 06/12/2024 9:37 AM EST Call placed to patient notifying of providers message. Patient voices understanding. Katya Salmon LPN * Telephone Encounter - Quincy Alonzo APRN.CNP - 06/10/2024 3:18 PM EST Please let the patient know that he can just come for the appointment scheduled on 07/02. He can let us know if he needs any refills prior to that. * Telephone Encounter - Glory Horowitz - 06/10/2024 2:43 PM EST Patient wondering if they need appointment for medication before 07/02 appointment. documented in this encounterMemorial Health System03-03-2025 Telephone encounter Note * Telephone Encounter - Quincy Alonzo APRN.CNP - 06/10/2024 3:18 PM EST Please let the patient know that he can just come for the appointment scheduled on 07/02. He can let us know if he needs any refills prior to that. [facility]03-03-20[facility] Telephone encounter Note* Telephone Encounter - Glory Horowitz - 06/10/2024 2:43 PM EST Patient wondering if they need appointment for medication before 07/02 appointment. [facility]02-[facility] Progress note* Result Encounter Note - Domo Granda APRN.CNS - 05/31/2024 8:39 AM EST Stable [facility]02-21-2025 Miscellaneous Notes* Result Encounter Note - Domo Granda APRN.CNS - 05/31/2024 8:39 AM EST Stable documented in this encounterMemorial Health System02-18-2025 History of Present illness Narrative* Shital Patel Tech - 05/28/2024 4:10 PM EST Radiology Service Progress Note PATIENT NAME: Orino Dumont DATE OF SERVICE: May 28, 2024 TIME: 4:12 PM PATIENT IDENTITY VERIFICATION COMPLETED USING TWO (2) IDENTIFIERS: Name and Date of confirmedby patient verbally. FALL SCREENING: Has the patient had 2 falls in the last year or 1 fall with injury or currently using an Ambulatory Assistive Device (Walker, Cane, Wheelchair, Crutches, etc.)? No PATIENT GENDER DATA: Assigned male at PATIENT RELEVANT IMPLANT DATA REVIEWED: Not Applicable PATIENT PRESENTS WITH AN IMPLANTABLE OR ATTACHED STAFF MECHANICAL ENGINEER: No RADIOLOGY DEPARTMENT: General X-ray: Exam(s) Completed: Chest X-Ray PERIPHERAL IV DATA: Not applicable SIGNED BY: Reymundo Lawler May 28, 2024 4:12 PM documented in this encounterMemorial Health System02-18-2025 NoteHNO ID: [id number] Author: SHITAL PATEL Tech Service: ? Author Type: Technologist Type: Progress Notes Filed: 05/28/2024 16:12 Note Text: Radiology Service Progress Note PATIENT NAME: Orion Dumont DATE OF SERVICE: May 28, 2024 TIME: 4:12 PM PATIENT IDENTITY VERIFICATION COMPLETED USING TWO (2) IDENTIFIERS: Name and Date of confirmed by patient verbally. FALL SCREENING: Has the patient had 2 falls in the last year or 1 fall with injury or currently using an Ambulatory Assistive Device (Walker, Cane, Wheelchair, Crutches, etc.)? No PATIENT GENDER DATA: Assigned male at PATIENT RELEVANT IMPLANT DATA REVIEWED: Not Applicable PATIENT PRESENTS WITH AN IMPLANTABLE OR ATTACHED STAFF MECHANICAL ENGINEER: No RADIOLOGY DEPARTMENT: General X-ray: Exam(s) Completed: Chest X-Ray PERIPHERAL IV DATA: Not applicable SIGNED BY: Reymundo Lawler May 28, 2024 4:12 [facility]02-18-2025 NoteHNO ID: [id number] Author: DOMO GRANDA APRN.DIRECTOR OF TECHNOLOGY Service: ? Author Type: Nurse Specialist Type: Progress Notes Filed: 05/28/2024 16:10 Note Text: SUBJECTIVE Orion Dumont is a 73 year old male who presents with 2 weeks of symptoms that are worsening. He reports hard to control productive cough which is purulent. Fatigue is present. Has had a fever but no current. No current sore throat. Has frontal headache with sinus congestion and drainage. No ear pain. No muscle aches no nausea vomiting or diarrhea. Abdomen is tender from frequent coughing. OTC meds/remedies that patient has tried: acetaminophen, OTC cough syrup, OTC cold medicine, and throat lozenges. High risk category assessment Age > 60 years old, heart disease He has a history of mild COPD. Notes his sister recently went on a cruise. No known sick contacts. Has had increased phlegm for 5 to 6 months prior to illness. He reports that he has never smoked. He has never used smokeless tobacco. OBJECTIVE PHYSICAL EXAM: BP 155/80 (BP Site: Left Arm, BP Position: Sitting, BP Cuff Size: Large Adult) Pulse 64 Temp 37.2 ?C (98.9 ?F) (Temporal) Resp 20 Wt 108.8 kg (239 lb 13.8 oz) BMI 31.79 kg/m? General appearance: tired/ill appearing, alert, cooperative, pleasant, in no acute distress Head: Normocephalic Eyes: conjunctiva/corneas normal Ears: R TM - nl light reflex, erythematous streaking, L TM - nl light reflex, erythematous streaking Nose: purulent rhinorrhea, mucosa erythematous and swollen Oropharynx: moist without lesions, mild erythema to GPA, no exudate Neck: supple and small, benign anterior cervical nodes bilaterally Heart: without murmur, irregularly irregular rate and rhythm Lungs: good air exchange, scattered end expiratory wheezes ASSESSMENT/PLAN (R05.1) Acute cough (primary encounter diagnosis) (J01.10) Acute non-recurrent frontal sinusitis (J44.9) Stage 1 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 ([facility]) ASSESSMENT/PLAN: 1. Acute cough - ICD9: 786.2, ICD10: R05.1 (primary diagnosis) 2. Acute non-recurrent frontal sinusitis - ICD9: 461.1, ICD10: J01.10 Possible CAP. Will check chest x-ray today. Treat as CAP. - Will begin treatment with as per antibiotic as written, see orders - Supportive care with plenty of fluids, rest, and analgesia prn. - Follow up in one week if symptoms persist or worsen. - BENZONATATE 100 MG CAPSULE - ALBUTEROL SULFATE HFA 90 MCG/ACTUATION AEROSOL INHALER - AMOXICILLIN 875 MG-POTASSIUM CLAVULANATE 125 MG TABLET - PREDNISONE 20 MG TABLET - CETIRIZINE 10 MG TABLET - XR CHEST 2V FRONTAL/LAT - DOXYCYCLINE HYCLATE 100 MG TABLET 3. Stage 1 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 ([facility]) - ICD9: 496, ICD10: J44.9 Recommend resume inhaler and other treatments as noted above, non-smoker. Domo Granda APRN.IVY Medical Decision Making: Problems: Low: Acute, uncomplicated illness or injury Data: Unique test(s) ordered: 1 Risk: Moderate: Drug management Medical Decision Making Level: 3 - LowA[facility]02-18-[facility] History of Present illness Narrative* Domo Granda APRN.DIRECTOR OF TECHNOLOGY - 05/28/2024 3:32 PM EST SUBJECTIVE Orion Dumont is a 73 year old male who presents with 2 weeks of symptoms that are worsening. He reports hard to control productive cough which is purulent. Fatigue is present. Has had a fever but no current. No current sore throat. Has frontal headache with sinus congestion and drainage. No ear pain. No muscle aches no nausea vomiting or diarrhea. Abdomen is tender from frequent coughing. OTC meds/remedies that patient has tried: acetaminophen, OTC cough syrup, OTC cold medicine, and throat lozenges. High risk category assessment Age > 60 years old, heart disease He has a history of mild COPD. Notes his sister recently went on a cruise. No known sick contacts. Has had increased phlegm for 5 to 6 months prior to illness. He reports that he has never smoked. He has never used smokeless tobacco. OBJECTIVE PHYSICAL EXAM: BP 155/80 (BP Site: Left Arm, BP Position: Sitting, BP Cuff Size: Large Adult) Pulse 64 Temp 37.2 C (98.9 F) (Temporal) Resp 20 Wt 108.8 kg (239 lb 13.8 oz) BMI 31.79 kg/m General appearance: tired/ill appearing, alert, cooperative, pleasant, in no acute distress Head: Normocephalic Eyes: conjunctiva/corneas normal Ears: R TM - nl light reflex, erythematous streaking, L TM - nl light reflex, erythematous streaking Nose: purulent rhinorrhea, mucosa erythematous and swollen Oropharynx: moist without lesions, mild erythema to GPA, no exudate Neck: supple and small, benign anterior cervical nodes bilaterally Heart: without murmur, irregularly irregular rate and rhythm Lungs: good air exchange, scattered end expiratory wheezes ASSESSMENT/PLAN (R05.1) Acute cough (primary encounter diagnosis) (J01.10) Acute non-recurrent frontal sinusitis (J44.9) Stage 1 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 ([facility]) ASSESSMENT/PLAN: 1. Acute cough - ICD9: 786.2, ICD10: R05.1 (primary diagnosis) 2. Acute non-recurrent frontal sinusitis - ICD9: 461.1, ICD10: J01.10 Possible CAP. Will check chest x-ray today. Treat as CAP. - Will begin treatment with as per antibiotic as written, see orders - Supportive care with plenty of fluids, rest, and analgesia prn. - Follow up in one week if symptoms persist or worsen. - BENZONATATE 100 MG CAPSULE - ALBUTEROL SULFATE HFA 90 MCG/ACTUATION AEROSOL INHALER - AMOXICILLIN 875 MG-POTASSIUM CLAVULANATE 125 MG TABLET - PREDNISONE 20 MG TABLET - CETIRIZINE 10 MG TABLET - XR CHEST 2V FRONTAL/LAT - DOXYCYCLINE HYCLATE 100 MG TABLET 3. Stage 1 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 ([facility]) - ICD9: 496, ICD10: J44.9 Recommend resume inhaler and other treatments as noted above, non-smoker. Domo Granda APRN.CNS Medical Decision Making: Problems: Low: Acute, uncomplicated illness or injury Data: Unique test(s) ordered: 1 Risk: Moderate: Drug management Medical Decision Making Level: 3 - Low documented in this encounterMemorial Health System02-18-2025 Instructions* Patient Instructions* Quincy Alonzo APRN.CNP - 05/28/2024 3:25 PM EST TREATMENT PLAN: Start Seroquel 50 mg at bedtime to help with mood, impulsive behavior, difficulty falling asleep, over thinking, and anxiety. Take the medication and working on trying to sleep earlier. Continue to take Lamictal at the same dose to address depressive symptoms. Okay to just focus on taking Buspar in the morning to help with anxiety symptoms. Continue Zoloft every morning to address anxiety symptoms. Schedule an appointment and engage in regular talk therapy to manage negative thoughts and day to day stressors. Follow up in 4 to 6 weeks. For those experiencing a suicidal crisis: --call the National Suicide Prevention Lifeline at 988 (515-861-4477) --text the Crisis Text Line (text HOME to 975125) --call 911 and let them know you are having a mental health crisis or go to your nearest Emergency Room for stabilization. --You can also call Mobile Crisis at [phone]. -- You may call the department appointment line at [phone] to schedule your appointment. -- Please call my nurse at [phone] or send me a message in [employer] with any questions or concerns between appointments. documented in this [facility] History of Present illness Narrative* Quincy Alonzo APRN.CNP - 05/28/2024 2:30 PM EST Images from the original note were not included. FOLLOW UP - PSYCHIATRIC PROGRESS NOTE PATIENT: Orion Dumont DATE: May 28, 2024 Visit Type:In person All information is from Patient report except when noted. This evaluation is NOT intended for forensic, disability or child custody purposes. CC: Presenting today for follow up regarding psychiatric medication management. HPI: Treatment Plan from Last Visit on 10/31/2023: TREATMENT PLAN: Continue Zoloft, Lamictal, and Buspar at the same dose. Patient has been more consistent in taking his medications. Referred patient to the [facility] IOP for intensive therapy as most of his stressors are related to multiple psychosocial factors. Patient has also been encouraged to pursue individual counseling halfway. He is in agreement with this plan. Patient will reach out to the provider to share if he will be able to engage in the IOP program or not after speaking with their intake team. Today Orion shares that he is concerned that he might have pneumonia. Has an appointment with Domo Granda at 3:20 pm today. Shares that he has been consistent in taking his morning medications but tends to struggle with taking his Buspar twice a day. Shares that he feels restless. He doesn't like things getting out of place. Tends to keep cleaning and reorganizing. Shares that he lives with his sister. Sister is concerned that his medications are not as strong. Concerned about sister's memory and her ability stay independent. Sister consistently mentions thatshe really depends on him for support and how grateful she is to have him around. Discussed how this can feel like a lot of pressure for him. Tends to feel guilty about his behavior of believing other people on the internet. Has given people money. He is ashamed of his behavior. I know better but that doesn't stop me from doing it. He has been giving money to his daughter and son also. Does accept that he has been giving to seek validation. He does not go to sleep till late at night. Struggles to fall asleep. Finds himself over thinking at night. Unable to recall when he last slept well. Tends to comfort eat. Has gained 8 lbs. Tends to crave sugar. Denies diabetes. Lab work reviewed and it was WNL. Did not start IOP at [facility] as discussed. I don't know, I just feel like I am not worth it. Is ashamed to share his struggles. Has an appointment that he has to schedule with the [facility] customer care team coach. Encouraged patient to ask them about referrals to engage in consistent psychotherapy. Discussed the importance of engaging in therapy and the role of medication management. 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 Currently chest pain free; However, there is a high chance of recurrence since treatment has been on hold. Giving him steroid might actually put him at more risk of re bleeding. NSAID'S notan option for now. Plan: Consider Colchicine. If patient is to be restarted on AC, Colchicine has DVT (deep venous thrombosis) ([facility]) 01/12/2010 S/P IVC filter, occurred post-op, on anticoagulation (for a fib) Eating disorder, unspecified 07/01/2009 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 Essential hypertension, benign Fatty liver 11/03/2009 by us Gall stones, common bile duct 12/07/2013 Generalized anxiety disorder 07/01/2009 GI bleed 06/29/2012 Hip joint replacement by other means 09/21/2012 Hyperlipidemia 08/25/2020 Impaired fasting glucose 05/05/2021 Impotence of organic origin Iron deficiency anemia 08/02/2012 skilled nursing current use of anticoagulant 02/09/2015 Major depressive disorder, recurrent episode, moderate ([facility]) 07/01/2009 Morbid obesity ([facility]) 04/21/2009 stated BMI 51.1 Ht: 75 Wt: 410 lbs MSSA (methicillin susceptible Staphylococcus aureus) infection 07/03/2012 Hx: MSSA infection of serosal fluids collection in L chest wall. S/P I/D on 06/19. On IV oxacillin till and then dc'ed on 06/23 with a 10 day course of Dicloxacillin. 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 Currently chest pain free; Talked with cardiology - said no need for treatment is patientis treatment free Plan: Continue to monitor Postsurgical dumping syndrome 08/30/2012 Pulmonary embolism ([facility]) 03/01/2010 Retinal detachment OD Stage 1 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 ([facility]) 08/15/2022 Syncope 11/02/2018 Torn rotator cuff Upper GI bleed 07/03/2012 Hx: UGIB presenting to OSH on 06/29 with Melanotic stool; EGD showed jejunal pouch ulcers and dieulafoy lesion which were clipped and injected Given IV PPI Assessment: UGI 2/2 to Dieulafoy and NSAID induced ulcers. Plan: Monitor H&H Q8H, transfuse as necessary, keep Hb>8 Consult IR for further intervention Protonix gtt for now, will switch to protonix 40mg bid when Hb is stable after 48-72 salma UTI (lower urinary tract infection) Varicose veins 2010 Varicose veins of both legs with edema 2010 Vitamin D deficiency 08/02/2012 PAST SURGICAL HISTORY Procedure Laterality Date APPENDECTOMY HX ARTHRP ACETBLR/PROX FEM PROSTC AGRFT/ALGRFT 1993 left BACK SURGERY HX CARDIOVERSION CHOLECYSTECTOMY 11/18/2013 COLONOSCOPY 02/22/2023 repeat 10 years COLONOSCOPY GEN ANES 04/20/2020 CYSTO BLADDER W/URETERAL CATHETERIZATION 01/30/2010 CYSTOSCOPY, RETROPYELOGRAM performed by RADHA OLIVAREZ at OR CYSTO W/INSERT URETERAL STENT 01/30/2010 CYSTOSCOPY, INSERTION STENT URETERAL J performed by RADHA OLIVAREZ at OR CYSTOURETHROSCOPY 06/16/2017 Cystoscopy DISKECTOMY, LUMBAR, SINGLE SP 1981 L4-5 EGD 04/20/2020 GASTRIC BYPASS HX 2008 w/ complications. JOINT REPLACEMENT HX NEPHROLITHOTOMY REMOVAL STAGE 1 05/02/2012 PAST SURGICAL HISTORY OF 1967 left hip pin PAST SURGICAL HISTORY OF 04/23/2012 heart surgery PAST SURGICAL HISTORY OF 06/04/2012 stitches for broken blood vesel in rectum REDUCE BOWEL OBSTRUCTION 06/24/2010 Performed by RAN REPAIR RETINAL DETACHMENT SCLERAL BUCKLING 10/2009 od Scleral Buckle REPAIR RETINAL DETACHMENT SCLERAL BUCKLING 08/05/2013 SB (Scleral Buckle)/ cyro os REVISE MEDIAN N/CARPAL TUNNEL SURG Left 10/2020 SESAMOIDECTOMY, THUMB/FINGER Left 06/30/2022 Left Thumb arthroplasty VITRECTOMY MECHANICAL PARS PLANA 09/03/2013 PPV / EL / gas OS ALLERGIES Allergen Reactions Rivaroxaban Rash Sulfa (Sulfonamide * Intolerance, Hives Pt says that he has had silvadene cream in the past after cardioversions without side effects Adhesive Tape (Magalie* Rash Niacin Other: See Comments Itching, head lam Wool Itching Wool Itching Diclofenac Sodium Rash Fixed drug eruption Current Outpatient Medications on File Prior to Visit Medication Sig atorvastatin (LIPITOR) 20 mg tablet Take 1 tablet by mouth once daily. bisoprolol (ZEBETA) 5 mg tablet Take 1 tablet by mouth once daily. apixaban (ELIQUIS) 5 mg tab(s) Take 1 tablet by mouth two times a day. fludrocortisone (FLORINEF) 0.1 mg tablet Take 1 tablet by mouth once daily. ciclopirox (LOPROX) 0.77 % cream Apply to affected area two times a day as needed. pantoprazole DR (PROTONIX) 40 mg tablet Take 1 tablet by mouth daily before breakfast. Take on empty stomach, 1/2 hr before meal. oxybutynin XL (DITROPAN XL) 5 mg 24 hr tablet Take 1 tablet by mouth once daily. lamoTRIgine (LAMICTAL) 100 mg tablet Take 1 tablet by mouth once daily. busPIRone (BUSPAR) 15 mg tablet take 1 tablet by mouth twice a day digoxin (LANOXIN) 250 mcg (0.25 mg) tablet take 1 tablet by mouth every day sertraline (ZOLOFT) 100 mg tablet Take 1 tablet by mouth once daily. cholecalciferol (VITAMIN D3) 50 mcg (2,000 unit) tablet Take 1 tablet by mouth daily with dinner. calcium citrate-vitamin D3 (CITRACAL PLUS D) 315 mg-5 mcg (200 unit) tab Take 1 tablet by mouth twice daily with meals. With each meal. [id number]-FA-Fish Oil [id number] mx-uk-[id number]-mcg cap Take 600 mg by mouth once daily. (Patient taking differently: Take 600 mg by mouth two times a day.) pyridoxine (VITAMIN B-6) 100 mg tablet Take 2 tablets by mouth twice daily. docusate sodium 100 mg capsule Take 1 capsule by mouth twice daily as needed for Constipation. No current facility-administered medications on file prior to visit. ROS: See HPI PFSH: See HPI VITAL SIGNS: 05/28/24 1428 BP: 155/80 Pulse: 64 Resp: 20 Weight: 108.8 kg (239 lb 12.8 oz) Last 3 Encounter BP Readings: Date: BP: 05/13/2024 110/62 11/10/2023 102/60 10/31/2023 124/82 MENTAL STATUS EXAMINATION: Appearance: Casually dressed and groomed Behavior: Behaves appropriately during the encounter Social relatedness: Euthymic Speech/Language: The patient demonstrates appropriate tone, prosody, dia, phonetics, and syntax Mood: sad and anxious. Upset with himself at times. Affect: Full and appropriate to topic Orientation: Person, Place, Time and Situation Associations: Intact and linear Hallucinations: None Delusions: None Suicidal Ideation: No suicidal ideation, intent or plan. Homicidal Ideation: No homicidal ideation, intent or plan. 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 TREATMENT PLAN: Start Seroquel 50 mg at bedtime to help with mood, impulsive behavior, difficulty falling asleep, over thinking, and anxiety. Take the medication and working on trying to sleep earlier. Continue to take Lamictal at the same dose to address depressive symptoms. Okay to just focus on taking Buspar in the morning to help with anxiety symptoms. Continue Zoloft every morning to address anxiety symptoms. Schedule an appointment and engage in regular talk therapy to manage negative thoughts and day to day stressors. Follow up in 4 to 6 weeks. MEDICATION CHANGES: Prescriptions given - Reviewed Lamictal titration & risk of severe rash. Instructed to call [facility]SE[facility] if this occurs. See above Risks and benefits of the medication, including any black box warnings, were discussed with the patient. Patient is aware to reach out with any questions, concerns, or worsening of symptoms prior to the next appointment. Patient educated on risks of substance use in combination with medications and advised that any substance use along with medications may alter their effectiveness. Follow Up: See Treatment Plan Medical Decision Making: Problems: Moderate: 2+ stable chronic illnesses High: Chronic illness with severe change Data: Unique source(s) for external note(s) reviewed: 3+ Unique test result(s) reviewed: 3+ Independent interpretation of test from other physician/QHCP Risk: Moderate: Moderate risk from testing/treatment and Drug management Medical Decision Making Level: 5 - High ADD ON PSYCHOTHERAPY CODE : Yes I spent 18 minutes ( in addition to E/M services) in psychotherapy,utilizing Supportive and Motivational techniques to target negative thoughts and lack of investmentin psychotherapy treatment, with goal to improve coping by utilizing available resources. SIGNATURE: Quincy Alonzo APRN.CNP PATIENT NAME: Orion Dumont DATE: May 28, 2024 TIME: 2:40 PM documented in this encounter[facility]25 NoteHNO ID: [id number] Author: QUINCY ALONZO APRN.CNP Service: ? Author Type: Nurse Practitioner Type: Progress Notes Filed: 05/28/2024 15:25 Note Text: FOLLOW UP - PSYCHIATRIC PROGRESS NOTE PATIENT: Orion Dumont DATE: May 28, 2024 Visit Type:In person All information is from Patient report except when noted. This evaluation is NOT intended for forensic, disability or child custody purposes. CC: Presenting today for follow up regarding psychiatric medication management. HPI: Treatment Plan from Last Visit on 10/31/2023: TREATMENT PLAN: Continue Zoloft, Lamictal, and Buspar at the same dose. Patient has been more consistent in taking his medications. Referred patient to the [facility] for intensive therapy as most of his stressors are related to multiple psychosocial factors. Patient has also been encouraged to pursue individual counseling halfway. He is in agreement with this plan. Patient will reach out to the provider to share if he will be able to engage in the IOP program or not after speaking with their intake team. Today Orion shares that he is concerned that he might have pneumonia. Has an appointment with Domo Granda at 3:20 pm today. Shares that he has been consistent in taking his morning medications but tends to struggle with taking his Buspar twice a day. Shares that he feels restless. He doesn't like things getting out of place. Tends to keep cleaning and reorganizing. Shares that he lives with his sister. Sister is concerned that his medications are not as strong. Concerned about sister's memory and her ability stay independent. Sister consistently mentions that she really depends on him for support and how grateful she is to have him around. Discussed how this can feel like a lot of pressure for him. Tends to feel guilty about his behavior of believing other people on the internet. Has given people money. He is ashamed of his behavior. I know better but that doesn't stop me from doing it. He has been giving money to his daughter and son also. Does accept that he has been giving to seek validation. He does not go to sleep till late at night. Struggles to fall asleep. Finds himself over thinking at night. Unable to recall when he last slept well. Tends to comfort eat. Has gained 8 lbs. Tends to crave sugar. Denies diabetes. Lab work reviewed and it was WNL. Did not start IOP at [facility] as discussed. I don't know, I just feel like I am not worth it. Is ashamed to share his struggles. Has an appointment that he has to schedule with the [facility] customer care team coach. Encouraged patient to ask them about referrals to engage in consistent psychotherapy. Discussed the importance of engaging in therapy and the role of medication management. 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 Currently chest pain free; However, there is a high chance of recurrence since treatment has been on hold. Giving him steroid might actually put him at more risk of re bleeding. NSAID'S not an option for now. Plan: Consider Colchicine. If patient is to be restarted on AC, Colchicine has DVT (deep venous thrombosis) (HCC) 01/12/2010 S/P IVC filter, occurred post-op, on anticoagulation (for a fib) Eating (more content not included)...[facility]02-17-2025 History of Present illness Narrative* Jerry Kellogg, DO - 05/27/2024 11:30 AM EST Subjective Orion Dumont is a 73 y.o. male who presents for Pain of the Right Shoulder History of Present Illness The patient is a 73-year-old male presenting for a follow-up visit regarding his worker's compensation claim. He sustained an injury on 03/25/2004, which resulted in a double tear in his shoulder. Despite undergoing surgery on 10/09/2019, followed by 8 months of physical therapy comprising 82 sessions, he reports persistent soreness and lack of strength in the affected shoulder. He has not undergone reverse shoulder replacement surgery. His current symptoms include constant soreness and significant weakness, to the extent that he is unable to lift even a pound above his head. 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 His last imaging study was conducted on 04/22/2019. Review of Systems Objective Height 6' 1, weight 220 lb. Physical Exam The patient's right shoulder can abduct to about 140 degrees when he holds his arm actively. Shoulder flexion requires assistance from the opposite hand, reaching about 110 degrees. External rotationof the right shoulder is restricted to only about 5 degrees, and internal rotation reaches only to his SI joint. There is weakness in both shoulders, with supraspinatus testing showing about 4 out of5 strength in the right shoulder. Strength in the subscapularis and infraspinatus is 5 out of 5. Pain is present in the right biceps, consistent with M75.21. The patient is weak with subscapularis, and a positive liftoff test is noted in the right shoulder. Results Imaging X-rays from today show stable alignment of the glenohumeral joint and degeneration of the glenohumeral joint compared to x-rays from September 14, 2022. Assessment & Plan 1. M75.1 right shoulder bicipital tendinitis and M75.41 right shoulder impingement syndrome The patient reports persistent soreness and lack of strength in the right shoulder, making it difficult to lift even a pound. He has a history of a full- thickness tear of the superior face tendon of the subscapularis, confirmed by an MRI on April 22, 2019. Physical examination reveals restricted range of motion and weakness in the right shoulder, with pain in the right biceps consistent with M75.21. X-rays taken today show stable alignment and degeneration of the glenohumeral joint compared to x-rays from September 14, 2022. For clinical symptomatic benefit, the plan is to proceed with the requested 96981 and [id number] for shoulder suprascapular and shoulder axillary nerve blocks to evaluate for shoulder RFA. PROCEDURE The patient underwent shoulder surgery on 10/09/2019 for a double tear. documented in this [facility]02-03-2025 Instructions* Patient Instructions* Shea Etienne, TEXTILE BR[employer].[facility] - 05/13/2024 8:19 AM EST Screening schedule The following prevention plan is recommended: DTaP,Tdap,Td Vaccine(3 - Td or Tdap) due on 03/24/2024 WHAT YOU CAN DO TO PREVENT FALLS Many falls can be prevented. By making some changes, you can lower your chances of falling. Four things YOU can do to prevent falls for you* and your caregiver 1. Begin a regular exercise program Exercise is one of the most important ways to lower your chances of falling. It makes you stronger and helps you feel better. Exercises that improve balance and coordination (like Masoud Chi) are the most helpful. Lack of exercise leads to weakness and increases your chances of falling. Ask your doctor or health care provider about the best type of exercise program for you. 2. Have your health care provider review your medicines Have your doctor or pharmacist review all the medicines you take, even ascx-sll-[id number] medicines. As you get older, the way medicines work in your body can change. Some medicines, or combinations of medicines, can make you sleepy or dizzy andcan cause you to fall. 3. Have your vision checked Have your eyes checked by an eye doctor at least once a year. You may be wearing the wrong glasses or have a condition like glaucoma or cataracts that limits your vision. Poor vision can increase your chances of falling. 4. Make your home safer About half of all falls happen at home. To make your home safer: Remove things you can trip over (like papers, books, clothes, and shoes) from stairs and places where you walk. Remove small throw rugs or use double-sided tape to keep the rugs from slipping. Keep items you use often in cabinets you can reach easily without using a step stool. Have grab bars put in next to your toilet and in the tub or shower. Use non-slip mats in the bathtub and on shower floors. Improve the lighting in your home. As you get older, you need brighter lights to see well. Hang light-weight curtains or shades to reduce glare. Have handrails and lights put in on all staircases. Wear shoes both inside and outside the house. Avoid going barefoot or wearing slippers. For more information, contact: Centers for Disease Control and Prevention www.cdc.gov/injury * This information may not apply if you have certain medical conditions. documented in this encounterMem[facility] System[facility]25 NoteHNO ID: [id number] Author: SHEA ETIENNE APRN.CNP Service: ? Author Type: Nurse Practitioner Type: Progress Notes Filed: 05/13/2024 09:00 Note Text: Orion Dumont is a 73 year old male here for a Medicare wellness visit. Medicare Health Risk Assessment General Health Very good Exercise: Minutes/Day 0 min Exercise: Days/Week 0 days Alcohol: Daily Use Never Alcohol: Drinks/Day Patient does not drink Alcohol: 6 or more drinks Never Feel off balance No Concerns: Teeth/Dentures No Concerns: Sexual function No Troubled by feelings Anxious; Stressed Frequency: Eating healthy diet Several days ADLs requiring help None of the above Safety precautions in home/vehicle Yes Smoke, vape, chews tobacco No Difficulty hearing No Difficulty seeing No Current Providers Specialists: I have reviewed specialist-related care of the patient in the medical record. Current care team: Patient Care Team: Florian Gonzalez MD as PCP - General (Internal Medicine) Shea Etienne, BRAD.FACING GRINDER as Hadoop Architect (Internal Medicine) Antonio Stahl, ELOISA - Urology. Quincy Mcpherson CNP- Psychiatry. Leonides Baker MD- [facility] Toya Smith MD- [facility]. Jerry Kellogg DO- Sports Medicine ([facility]) Matt Marie MD- [facility]. Ke Pantoja MD- [facility] provider. Pelon Nascimento MD- Ophthalmology [facility] Dermatology- Dr. Amin Medical/Family history review Reviewed and updated problem list, medical/surgical/family/social history, medications, and allergies. Opioid use review Opioid Medications (last 90 days) No data to display Anxiety/Depression screening Recommendation: already diagnosed with anxiety and depression; continuing current treatment plan managed by psychiatry Cognitive screening Mini Cog Score: 4 Cognitive screening reviewed and No further action needed (score 3-5). Functional Observation Was the patient's Timed Up AND Go test unsteady or >= 12 seconds? No Advance Care Planning Surrogate decision maker documented and/or advance directives scanned in chart Measurements BP 110/62 Pulse 94 Resp 16 Ht 185 cm (6' 0.84) Wt 110.9 kg (244 lb 7.8 oz) SpO2 97% BMI 32.40 kg/m? Vision Screening: Follows with optometry/ophthalmology Assessment/Plan Medicare annual wellness visit, subsequent (Z00.00) - Counseled on healthy diet and regular exercise - Fall avoidance information provided - Personalized prevention plan provided - Discussed need for and benefit of weight loss. BMI 32.40 kg/(m2) Additional Concerns The following concerns were also discussed with the patient: Balanitis: intermittent despite good hygiene. Using Neosporin preventatively now with unclear benefit. Urology recommended referral to dermatology, he is considering this now. 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 Rapid weight Gain: No SOB: No Edema: Yes, secondary to venous insufficiency PND: No Orthopnea: No Recent hospitalizations/exacerbations: No Last Echo EF: LV Ejection Fraction (%) Date Value 05/09/2022 50 12/10/2020 50 COPD- stage 1: Current symptoms- denies frequent cough, wheezing or chest tightness. Symptoms are not limiting daily activities or exercise. Treatment: none Veterinary Medicine Teacher: none He has never smoked No recent exacerbations. LEXIE: treated with dental appliance. Denies snoring, un-refreshed sleep, insomnia, excessive daytime drowsiness. Anxiety/depression: medications managed by psychiatry. Patient is currently taking Buspar, Lamictal, and Zoloft Feels medication is working well: unsure, he is under a lot of stress taking care of his older sister Side effects: None Denies suicidal thoughts or plan. Has appointment with psychiatry scheduled for later this month. BP 110/62 Pulse 94 Resp 16 Ht 185 cm (6' 0.84) Wt 110.9 kg (244 lb 7.8 oz) SpO2 97% BMI 32.40 kg/m? Physical Exam Vitals reviewed. Constitutional: Appearance: Normal appearance. Cardiovascular: Rate and Rhythm: Normal rate. Rhythm irregular. Pulses: Normal pulses. Heart sounds: Normal heart sounds. Pulmonary: Effort: Pulmonary effort is normal. Breath sounds: Normal breath sounds. No wheezing, rhonchi or rales. Musculoskeletal: Right lower le+ Pitting Edema present. Left lower le+ Pitting Edema present. Skin: General: Skin is warm and dry. Neurological: Mental Status: He is alert. Psychiatric: Mood and Affect: Affect normal. Mood is anxious. ASSESSMENT/PLAN: 1. Medicare annual wellness visit, subsequent - ICD9: V70.0, ICD10: Z00.00 (primary diagnosis) See medicare wellness plan 2. Hyperlipidemia, unspecified hyperlipidemia type - ICD9: 272.4, ICD10: E78.5 - Controlled - Continue current medications - ATORVASTATIN 20 MG TABLET (more content not included)...[facility]02-03-2025 History of Present illness Narrative* Shea Etienne, BRAD.FACING GRINDER - 05/13/2024 8:12 AM EST Images from the original note were not included. Orion Dumont is a 73 year old male here for a Medicare wellness visit. Medicare Health Risk Assessment General Health Very good Exercise: Minutes/Day 0 min Exercise: Days/Week 0 days Alcohol: Daily Use Never Alcohol: Drinks/Day Patient does not drink Alcohol: 6 or more drinks Never Feel off balance No Concerns: Teeth/Dentures No Concerns: Sexual function No Troubled by feelings Anxious; Stressed Frequency: Eating healthy diet Several days ADLs requiring help None of the above Safety precautions in home/vehicle Yes Smoke, vape, chews tobacco No Difficulty hearing No Difficulty seeing No Current Providers Specialists: I have reviewed specialist-related care of the patient in the medical record. Current care team: Patient Care Team: Florian Gonzalez MD as PCP - General (Internal Medicine) Shea Etienne APRN.RAJAN as Hadoop Architect (Internal Medicine) Antonio Stahl PAC - Urology. Quincy Mcpherson CNP- Psychiatry. Leonides Baker MD- [facility] Toya Smith MD- [facility]. Jerry Kellogg DO- Sports Medicine ([facility]) Matt Marie MD- [facility]. Ke Pantoja MD- [facility] provider. Pelon Nascimento MD- Ophthalmology [facility] Dermatology- Dr. Amin Medical/Family history review Reviewed and updated problem list, medical/surgical/family/social history, medications, and allergies. Opioid use review Opioid Medications (last 90 days) No data to display Anxiety/Depression screening Recommendation: already diagnosed with anxiety and depression; continuing current treatment plan managed by psychiatry Cognitive screening Mini Cog Score: 4 Cognitive screening reviewed and No further action needed (score 3-5). Functional Observation Was the patient's Timed Up & Go test unsteady or >= 12 seconds? No Advance Care Planning Surrogate decision maker documented and/or advance directives scanned in chart Measurements BP 110/62 Pulse 94 Resp 16 Ht 185 cm (6' 0.84) Wt 110.9 kg (244 lb 7.8 oz) SpO2 97% BMI 32.40 kg/m Vision Screening: Follows with optometry/ophthalmology Assessment/Plan Medicare annual wellness visit, subsequent (Z00.00) - Counseled on healthy diet and regular exercise - Fall avoidance information provided - Personalized prevention plan provided - Discussed need for and benefit of weight loss. BMI 32.40 kg/(m^2) Additional Concerns The following concerns were also discussed with the patient: Balanitis: intermittent despite good hygiene. Using Neosporin preventatively now with unclear benefit. Urology recommended referral to dermatology, he is considering this now. 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 Rapid weight Gain: No SOB: No Edema: Yes, secondary to venous insufficiency PND: No Orthopnea: No Recent hospitalizations/exacerbations: No Last Echo EF: LV Ejection Fraction (%) Date Value 05/09/2022 50 12/10/2020 50 COPD- stage 1: Current symptoms- denies frequent cough, wheezing or chest tightness. Symptoms are not limiting daily activities or exercise. Treatment: none Veterinary Medicine Teacher: none He has never smoked No recent exacerbations. LEXIE: treated with dental appliance. Denies snoring, un-refreshed sleep, insomnia, excessive daytimedrowsiness. Anxiety/depression: medications managed by psychiatry. Patient is currently taking Buspar, Lamictal, and Zoloft Feels medication is working well: unsure, he is under a lot of stress taking care of his older sister Side effects: None Denies suicidal thoughts or plan. Has appointment with psychiatry scheduled for later this month. BP 110/62 Pulse 94 Resp 16 Ht 185 cm (6' 0.84) Wt 110.9 kg (244 lb 7.8 oz) SpO2 97% BMI 32.40 kg/m Physical Exam Vitals reviewed. Constitutional: Appearance: Normal appearance. Cardiovascular: Rate and Rhythm: Normal rate. Rhythm irregular. Pulses: Normal pulses. Heart sounds: Normal heart sounds. Pulmonary: Effort: Pulmonary effort is normal. Breath sounds: Normal breath sounds. No wheezing, rhonchi or rales. Musculoskeletal: Right lower le+ Pitting Edema present. Left lower le+ Pitting Edema present. Skin: General: Skin is warm and dry. Neurological: Mental Status: He is alert. Psychiatric: Mood and Affect: Affect normal. Mood is anxious. ASSESSMENT/PLAN: 1. Medicare annual wellness visit, subsequent - ICD9: V70.0, ICD10: Z00.00 (primary diagnosis) See medicare wellness plan 2. Hyperlipidemia, unspecified hyperlipidemia type - ICD9: 272.4, ICD10: E78.5 - Controlled - Continue current medications - ATORVASTATIN 20 MG TABLET 3. Balanitis - ICD9: 607.1, ICD10: N48.1 Intermittent, recommend follow-up with medical technologist hematology and patient is agreeable. He will schedule with H[facility] Noble where he was seen previously for a different issue - CICLOPIROX 0.77 % TOPICAL CREAM 4. Urge incontinence of urine - ICD9: 788.31, ICD10: N39.41 Stable - OXYBUTYNIN CHLORIDE ER 5 MG TABLET,EXTENDED RELEASE 24 HR 5. Gastric bypass status for obesity - ICD9: V45.86, ICD10: Z98.84 - PANTOPRAZOLE 40 MG TABLET,DELAYED RELEASE 6. Chronic combined systolic and diastolic congestive heart failure (HCC) - ICD9: 428.42, 428.0, ICD10: I50.42 Stable 7. Atrial fibrillation with RVR (HCC) - ICD9: 427.31, ICD10: I48.91 stable 8. Impaired fasting glucose - ICD9: 790.21, ICD10: R73.01 Normal HgbA1c 9. Major depressive disorder, recurrent episode, moderate (HCC) - ICD9: 296.32, ICD10: F33.1 Medications per psychiatry, follow-up as scheduled 10. Generalized anxiety disorder - ICD9: 300.02, ICD10: F41.1 As above 11. 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) - ICD9: 496, ICD10: J44.9 Stable 12. LEXIE (obstructive sleep apnea) - ICD9: 327.23, ICD10: G47.33 Treated with oral appliance 13. BPH with urinary obstruction - ICD9: 600.01, 599.69, ICD10: N40.1, N13.8 stable Shea Etienne APRN.CNP documented in [facility] encounter[facility]25 History of Present illness Narrative* Leonides Baker MD - 04/29/2024 2:51 PM EST [facility] ESTABLISHED VISIT NOTE The patient consented to this encounter being held virtually and was present during the telemedicine encounter today. 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 Currently chest pain free; However, there is a high chance of recurrence since treatment has been on hold. Giving him steroid might actually put him at more risk of re bleeding. NSAID'S notan option for now. Plan: Consider Colchicine. If patient is to be restarted on AC, Colchicine has DVT (deep venous thrombosis) ([facility]) 01/12/2010 S/P IVC filter, occurred post-op, on anticoagulation (for a fib) Eating disorder, unspecified 07/01/2009 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 Essential hypertension, benign Fatty liver 11/03/2009 by us Gall stones, common bile duct 12/07/2013 Generalized anxiety disorder 07/01/2009 GI bleed 06/29/2012 Hip joint replacement by other means 09/21/2012 Hyperlipidemia 08/25/2020 Impaired fasting glucose 05/05/2021 Impotence of organic origin Iron deficiency anemia 08/02/2012 skilled nursing current use of anticoagulant 02/09/2015 Major depressive disorder, recurrent episode, moderate (HCC) 07/01/2009 Morbid obesity (HCC) 04/21/2009 stated BMI 51.1 Ht: 75 Wt: 410 lbs MSSA (methicillin susceptible Staphylococcus aureus) infection 07/03/2012 Hx: MSSA infection of serosal fluids collection in L chest wall. S/P I/D on 06/19. On IV oxacillin till and then dc'ed on 06/23 with a 10 day course of Dicloxacillin. 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 Currently chest pain free; Talked with cardiology - said no need for treatment is patientis treatment free Plan: Continue to monitor Postsurgical dumping syndrome 08/30/2012 Pulmonary embolism (HCC) 03/01/2010 Retinal detachment OD Stage 1 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 ([facility]) 08/15/2022 Syncope 11/02/2018 Torn rotator cuff Upper GI bleed 07/03/2012 Hx: UGIB presenting to OSH on 06/29 with Melanotic stool; EGD showed jejunal pouch ulcers and dieulafoy lesion which were clipped and injected Given IV PPI Assessment: UGI 2/2 to Dieulafoy and NSAID induced ulcers. Plan: Monitor H&H Q8H, transfuse as necessary, keep Hb>8 Consult IR for further intervention Protonix gtt for now, will switch to protonix 40mg bid when Hb is stable after 48-72 salma UTI (lower urinary tract infection) Varicose veins 2010 Varicose veins of both legs with edema 2010 Vitamin D deficiency 08/02/2012 PAST SURGICAL HISTORY Procedure Laterality Date APPENDECTOMY HX ARTHRP ACETBLR/PROX FEM PROSTC AGRFT/ALGRFT 1993 left BACK SURGERY HX CARDIOVERSION CHOLECYSTECTOMY 11/18/2013 COLONOSCOPY 02/22/2023 repeat 10 years COLONOSCOPY GEN ANES 04/20/2020 CYSTO BLADDER W/URETERAL CATHETERIZATION 01/30/2010 CYSTOSCOPY, RETROPYELOGRAM performed by RADHA OLIVAREZ at OR CYSTO W/INSERT URETERAL STENT 01/30/2010 CYSTOSCOPY, INSERTION STENT URETERAL J performed by RADHA OLIVAREZ at OR CYSTOURETHROSCOPY 06/16/2017 Cystoscopy DISKECTOMY, LUMBAR, SINGLE SP 1982 L4-5 EGD 04/20/2020 GASTRIC BYPASS HX 2008 w/ complications. JOINT REPLACEMENT HX NEPHROLITHOTOMY REMOVAL STAGE 1 05/02/2012 PAST SURGICAL HISTORY OF 1967 left hip pin PAST SURGICAL HISTORY OF 04/23/2012 heart surgery PAST SURGICAL HISTORY OF 06/04/2012 stitches for broken blood vesel in rectum REDUCE BOWEL OBSTRUCTION 06/24/2010 Performed by RAN REPAIR RETINAL DETACHMENT SCLERAL BUCKLING 10/2009 od Scleral Buckle REPAIR RETINAL DETACHMENT SCLERAL BUCKLING 08/05/2013 SB (Scleral Buckle)/ cyro os REVISE MEDIAN N/CARPAL TUNNEL SURG Left 10/2020 SESAMOIDECTOMY, THUMB/FINGER Left 06/30/2022 Left Thumb arthroplasty VITRECTOMY MECHANICAL PARS PLANA 09/03/2013 PPV / EL / gas OS FAMILY HISTORY Problem Relation Age of Onset Ischemic Heart Disease Father Diabetes Mother other (Other) Mother Diabetes Sister Cataract Sister Detached Retina Sister SOCIAL HISTORY Social History Tobacco Use Smoking status: Never Smokeless tobacco: Never Vaping Use Vaping status: Never Used Substance Use Topics Alcohol use: No Drug use: No Rivaroxaban, Sulfa (Sulfonamide Antibiotics), Adhesive Tape (Rosins), Niacin, Wool, Wool, and Diclofenac Sodium Current Outpatient Medications Medication Sig lamoTRIgine (LAMICTAL) 100 mg tablet Take 1 tablet by mouth once daily. bisoprolol (ZEBETA) 5 mg tablet TAKE 1 TABLET BY MOUTH EVERY DAY busPIRone (BUSPAR) 15 mg tablet take 1 tablet by mouth twice a day fludrocortisone (FLORINEF) 0.1 mg tablet take 1 tablet by mouth every day digoxin (LANOXIN) 250 mcg (0.25 mg) tablet take 1 tablet by mouth every day ciclopirox (LOPROX) 0.77 % cream Apply to affected area two times a day as needed. atorvastatin (LIPITOR) 20 mg tablet Take 1 tablet by mouth once daily. oxybutynin XL (DITROPAN XL) 5 mg 24 hr tablet take 1 tablet by mouth every day sertraline (ZOLOFT) 100 mg tablet Take 1 tablet by mouth once daily. ELIQUIS 5 mg tab(s) take 1 tablet by mouth twice a day pantoprazole DR (PROTONIX) 40 mg tablet Take 1 tablet by mouth daily before breakfast. Take on empty stomach, 1/2 hr before meal. cholecalciferol (VITAMIN D3) 50 mcg (2,000 unit) tablet Take 1 tablet by mouth daily with dinner. calcium citrate-vitamin D3 (CITRACAL PLUS D) 315 mg-5 mcg (200 unit) tab Take 1 tablet by mouth twice daily with meals. With each meal. [id number]-Fish Oil [id number] cap Take 600 mg by mouth once daily. (Patient taking differently: Take 600 mg by mouth two times a day.) pyridoxine (VITAMIN B-6) 100 mg tablet Take 2 tablets by mouth twice daily. docusate sodium 100 mg capsule Take 1 capsule by mouth twice daily as needed for Constipation. No current facility-administered medications for this visit. Specialty Problems Cardiology Problems Varicose veins of both legs with edema Orthostatic hypotension Atrial fibrillation with RVR (HCC) Hyperlipidemia Chronic combined systolic and diastolic congestive heart failure (HCC) LABS: Latest Ref Rng 04/23/2024 Protein, Total 6.3 - 8.0 g/dL 6.3 Albumin 3.9 - 4.9 g/dL 4.2 Calcium 8.5 - 10.2 mg/dL 9.4 Bilirubin, Total 0.2 - 1.3 mg/dL 0.7 Alkaline Phosphatase 38 - 113 U/L 79 AST 14 - 40 U/L 35 ALT 10 - 54 U/L 33 Glucose 74 - 99 mg/dL 90 BUN 9 - 24 mg/dL 10 Creatinine 0.73 - 1.22 mg/dL 0.90 Sodium 136 - 144 mmol/L 143 Potassium 3.7 - 5.1 mmol/L 3.9 Chloride 98 - 107 mmol/L 107 CO2 22 - 30 mmol/L 25 Anion Gap 8 - 15 mmol/L 11 eGFR >=60 mL/min/1.73m 91 WBC 3.70 - 11.00 k/uL 6.23 RBC 4.20 - 6.00 m/uL 4.17 (L) Hemoglobin 13.0 - 17.0 g/dL 12.9 (L) Hematocrit 39.0 - 51.0 % 39.1 MCV 80.0 - 100.0 fL 93.8 MCH 26.0 - 34.0 pg 30.9 MCHC 30.5 - 36.0 g/dL 33.0 RDW-CV 11.5 - 15.0 % 13.5 Platelet Count 150 - 400 k/uL 206 MPV 9.0 - 12.7 fL 10.7 Absolute nRBC <0.01 k/uL <0.01 Cholesterol, Total <200 mg/dL 142 Triglyceride <150 mg/dL 60 HDL Cholesterol >39 mg/dL 74 Non HDL Cholesterol <130 mg/dL 68 Fasting Time hrs 12 VLDL Cholesterol <30 mg/dL 12 TC:HDL Ratio <5.10 1.92 LDL Cholesterol <100 mg/dL 56 LDL:HDL Ratio <2.54 0.76 Hemoglobin A1C 4.3 - 5.6 % 5.3 Estimated Average Glucose mg/dL 105 Vitamin D 25 Hydroxy 31.0 - 80.0 ng/mL 43.9 Legend: (L) Low CARDIAC TESTING: No recent cardiac testing Last 3 Encounter BP Readings: Date: BP: 11/10/2023 102/60 10/31/2023 124/82 09/18/2023 90/70 Last 3 Encounter Pulse Readings: Date: Pulse: 11/10/2023 78 10/31/2023 78 08/01/2023 80 Last 3 Encounter Wt Readings: Date: Wt: 11/10/2023 106.7 kg (235 lb 3.7 oz) 10/31/2023 108.9 kg (240 lb) 09/18/2023 103.4 kg (228 lb) PHYSICAL EXAMINATION: Home Weight: WNL Heart rate assessed by patient: WNL Home BP: WNL Home Temp: WNL REVIEW OF SYSTEMS: COGNITION: normal APPEARANCE: normal SPEECH: Normal SKIN:Color :Normal, New lesions: No EDEMA: No GAIT:Normal for age INJURIES/FALLS:No EYES:New vision abnormalities: No ENT: Tongue appearance: not seen, Teeth: New abnormality: No CHEST/RESPIRATORY: Dyspnea: Yes, mild chronic Orthopnea: No, Cough:No, Sputum Production: No, Sleepabnormality: Yes, no change LEXIE CARDIOVASCULAR: Angina/Chest pain: No, Palpitations: No, Syncope: No ABDOMEN: Pain:No, Swelling: No, Bowels/stool: Normal EXTREMITIES: Pain/Weakness: No new DIRECTOR OF TECHNOLOGY: New weakness/paresis/numbness/stroke:No. New speech/swallowing abnormalities: No ASSESSMENT AND PLAN A 30-minute virtual visit with [place] was held with the patient today. He is at home, states he is doing well, essentially no change in overall condition. Overall his general health is slowly improving. Cardiac problems include heart failure, last BNP 801, no new shortness of breath or manifestations of decompensated heart failure. Atrial fibrillation, controlled on medications Blood pressures appear to be normal No progressive coronary artery disease Remote history of Guillaume syndrome, resolved Obstructive sleep apnea with COPD Gold 1, no pulmonary hypertension or evidence of right heart failure No longer on Tikosyn DVT in the past, not currently a problem due to anticoagulation Had iron deficiency anemia, no longer present. No coronary artery disease by previous catheterization Had low ejection fraction at 1 time last was 50%, correlates with no clinical evidence of heart failure currently. Cardiac meds were reviewed and include digoxin, Florinef, Zebeta, Lipitor, Eliquis and fish oil. Nochanges. Lipids are under good control. Last hemoglobin A1c was 5.3 hemoglobin 12.9. Last echo 12/23, ejection fraction now normal at 55 to 60% with no pulmonary hypertension Many medical problems noted including sleep apnea, COPD, remote GI bleed, BPH, kidney stones, UTIs,depression, varicose veins, torn rotator cuff, replacement, cataracts, remote MSSA, DVT, low vitamin D--- no ongoing issues at this time and follows regularly with his primary care physician Dr. Florian Gonzalez From our standpoint no changes, see us back in the office in 3 to 6 months, he will need an echo next year as a routine. If there are any new concerns or complaints he will let me know. Leonides Baker MD The above plan and management options were discussed at length with patient. The patient is in agreement with the above and verbalized understanding. Duration of virtual visit: 30-35 min documented in this encounterMem[facility] System01-17-2025 Telephone encounter Note * Telephone Encounter - Quincy Alonzo APRN.CNP - 04/26/2024 5:31 PM EST Follow up appointment noted. 90 day refill of the medication sent to the [facility]. [facility] Miscellaneous Notes* Telephone Encounter - Quincy Alonzo APRN.CNP - 04/26/2024 5:31 PM EST Follow up appointment noted. 90 day refill of the medication sent to the [facility]. * Telephone Encounter - Katya Salmon LPN - 04/26/2024 5:05 PM EST Patient has OV on 05/28/24 @ 2:30 Please send RX to [facility] for Lamictal 100 mg 1 tab every day Katya Salmon LPN * Telephone Encounter - Quincy Alonzo APRN.CNP - 04/22/2024 2:05 PM EST Refill can be authorized once follow up appointment is scheduled. Patient was supposed to contact the provider after engaging in the IOP at [facility]. * Telephone Encounter - Lo Kellogg - 04/22/2024 10:39 AM EST Last: 7/23/24 TREATMENT PLAN: Continue Zoloft, Lamictal, and Buspar at the same dose. Patient has been more consistent in taking his medications. Referred patient to the [facility] [facility] as most of his stressors are related to multiple psychosocial factors. Patient has also been encouraged to pursue individual counseling halfway. He is in agreement with this plan. Patient will reach out to the provider to share if he will be able to engage in the IOP program or not after speaking with their intake team. Follow up after IOP determination documented [facility]25 Telephone encounter Note * Telephone Encounter - Katya Salmon LPN - 04/26/2024 5:05 PM EST Patient has OV on 05/28/24 @ 2:30 Please send RX to [facility] for Lamictal 100 mg 1 tab every day Katya Salmon LPN [facility] Telephone encounter Note* Telephone Encounter - Quincy Alonzo APRN.CNP - 04/22/2024 2:05 PM EST Refill can be authorized once follow up appointment is scheduled. Patient was supposed to contact the provider after engaging in the IOP at [facility]. [facility] Telephone encounter Note* Telephone Encounter - Lo Kellogg - 04/22/2024 10:39 AM EST Last: 10/31/23 TREATMENT PLAN: Continue Zoloft, Lamictal, and Buspar at the same dose. Patient has been more consistent in taking his medications. Referred patient to the [facility] for intensive therapy as most of his stressors are related to multiple psychosocial factors. Patient has also been encouraged to pursue individual counseling emt intermediate. He is in agreement with this plan. Patient will reach out to the provider to share if he will be able to engage in the IOP program or not after speaking with their intake team. Follow up after IOP determination [facility] Telephone encounter Note* Telephone Encounter - Lo Kellogg - 01/26/2024 8:13 AM EDT Last: 10/31/23 TREATMENT PLAN: 1.Continue Zoloft, Lamictal, and Buspar at the same dose. Patient has been more consistent in taking his medications. 2.Referred patient to the [facility] for intensive therapy as most of his stressors are related to multiple psychosocial factors. Patient has also been encouraged to pursue individual counseling emt intermediate. He is in agreement with this plan. 3.Patient will reach out to the provider to share if he will be able to engage in the IOP program or not after speaking with their intake team. Follow up- Will determine once update is received about patient's engagement in the IOP as discussed during the visit. Next: NA [facility] Miscellaneous Notes* Telephone Encounter - Lo Kellogg - 01/26/2024 8:13 AM EDT Last: 10/31/23 TREATMENT PLAN: 1.Continue Zoloft, Lamictal, and Buspar at the same dose. Patient has been more consistent in taking his medications. 2.Referred patient to the [facility] for intensive therapy as most of his stressors are related to multiple psychosocial factors. Patient has also been encouraged to pursue individual counseling emt intermediate. He is in agreement with this plan. 3.Patient will reach out to the provider to share if he will be able to engage in the IOP program or not after speaking with their intake team. Follow up- Will determine once update is received about patient's engagement in the IOP as discussed during the visit. Next: NA documented in this encounterMemorial Health System08-02-2024 History of Present illness Narrative* Florian Gonzalez MD - 11/10/2023 9:22 AM EDT This note was created using Comixologyriter. Subjective Orion Dumont is a 72 year old male. He was doing well in general, and seeing cardiology and psychiatry. His main concern today was ongoing skin cracking around his glans penis. He applied Lotrisone with temporary relief. Review of Systems Constitutional: Negative for fatigue. Respiratory: Negative for shortness of breath. Cardiovascular: Negative for chest pain, palpitations and leg swelling. Genitourinary: Positive for urgency. Negative for difficulty urinating and dysuria. 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 Current Use of Anticoagulant Bph With Urinary Obstruction Obesity, Class II, Bmi 35-39.9 Hyperlipidemia Impaired Fasting Glucose Chronic Combined Systolic and Diastolic Congestive Heart Failure ([facility]) Stage 1 Mild Copd By Gold Classification ([facility]) Bursitis of Hip Obesity, Class I, Bmi 30-34.9 Social History Tobacco Use Smoking status: Never Smokeless tobacco: Never Vaping Use Vaping Use: Never used Substance Use Topics Alcohol use: No Drug use: No Current Outpatient Medications Medication Sig clotrimazole-betamethasone (LOTRISONE) cream APPLY TO AFFECTED AREA TWICE DAILY FOR 14 DAYS atorvastatin (LIPITOR) 20 mg tablet Take 1 tablet by mouth once daily. oxybutynin XL (DITROPAN XL) 5 mg 24 hr tablet take 1 tablet by mouth every day lamoTRIgine (LAMICTAL) 100 mg tablet Take 1 tablet by mouth once daily. sertraline (ZOLOFT) 100 mg tablet Take 1 tablet by mouth once daily. busPIRone (BUSPAR) 15 mg tablet Take 1 tablet by mouth two times a day. ELIQUIS 5 mg tab(s) take 1 tablet by mouth twice a day pantoprazole DR (PROTONIX) 40 mg tablet Take 1 tablet by mouth daily before breakfast. Take on empty stomach, 1/2 hr before meal. digoxin (LANOXIN) 250 mcg (0.25 mg) tablet Take 1 tablet by mouth once daily. fludrocortisone (FLORINEF) 0.1 mg tablet Take 1 tablet by mouth once daily. bisoprolol (ZEBETA) 5 mg tablet Take 1 tablet by mouth once daily. cholecalciferol (VITAMIN D3) 50 mcg (2,000 unit) tablet Take 1 tablet by mouth daily with dinner. calcium citrate-vitamin D3 (CITRACAL PLUS D) 315 mg-5 mcg (200 unit) tab Take 1 tablet by mouth twice daily with meals. With each meal. [id number]-FA-Fish Oil [id number] ey-mw-[id number]-mcg cap Take 600 mg by mouth once daily. (Patient taking differently: Take 600 mg by mouth two times a day.) pyridoxine (VITAMIN B-6) 100 mg tablet Take 2 tablets by mouth twice daily. docusate sodium 100 mg capsule Take 1 capsule by mouth twice daily as needed for Constipation. No current facility-administered medications for this visit. Objective BP 102/60 Pulse 78 Temp 36.4 C (97.5 F) Resp 16 Wt 106.7 kg (235 lb 3.7 oz) SpO2 98% BMI 31.03 kg/m Physical Exam Constitutional: Appearance: Normal appearance. Cardiovascular: Rate and Rhythm: Normal rate. Rhythm irregular. Heart sounds: No murmur heard. No gallop. Pulmonary: Breath sounds: Normal breath sounds. Genitourinary: Penis: Circumcised. Erythema present. No tenderness, discharge or swelling. Comments: Erythematous moist ring of dermatitis at juncture of glans and shaft. Musculoskeletal: Right lower leg: No edema. Left lower leg: No edema. Neurological: Mental Status: He is alert. Assessment and Plan 1. Hyperlipidemia, unspecified hyperlipidemia type - ICD9: 272.4, ICD10: E78.5 (primary diagnosis) - Controlled - Continue current medications - COMPREHENSIVE METABOLIC PANEL - LIPID PANEL BASIC 2. LEXIE (obstructive sleep apnea) - ICD9: 327.23, ICD10: G47.33 - He was using a dental appliance with good effect. 3. Balanitis - ICD9: 607.1, ICD10: N48.1 - Change cream. Hygiene discussed, and he will use incontinence pads regularly to control moisture. - CICLOPIROX 0.77 % TOPICAL CREAM 4. Impaired fasting glucose - ICD9: 790.21, ICD10: R73.01 Monitor. - HEMOGLOBIN A1C 5. Atrial fibrillation with RVR (HCC) - ICD9: 427.31, ICD10: I48.91 Controlled. - COMPLETE BLOOD COUNT 6. Vitamin D deficiency - ICD9: 268.9, ICD10: E55.9 Monitor. - VITAMIN D 25 HYDROXY Florian Gonzalez MD documented in this encounterMemorial Health System07-31-2024 Telephone encounter Note * Telephone Encounter - Lyudmila Baxter RN - 11/08/2023 9:22 AM EDT [facility] 02/21/23 Patient phones requesting refills as follows: Requested Prescriptions Pending Prescriptions Disp Refills clotrimazole-betamethasone (LOTRISONE) cream [Pharmacy Med Name: CLOTRIMAZOLE- BETAMETHASONE CRM] 15g 1 Sig: APPLY TO AFFECTED AREA TWICE DAILY FOR 14 DAYS Please review and advise. Lyudmila Baxter RN [facility] Miscellaneous Notes* Telephone Encounter - Lyudmila Baxter RN - 11/08/2023 9:22 AM EDT [facility] 02/21/23 Patient phones requesting refills as follows: Requested Prescriptions Pending Prescriptions Disp Refills clotrimazole-betamethasone (LOTRISONE) cream [Pharmacy Med Name: CLOTRIMAZOLE- BETAMETHASONE CRM] 15g 1 Sig: APPLY TO AFFECTED AREA TWICE DAILY FOR 14 DAYS Please review and advise. Lyudmila Baxter RN documented in this encounterMemorial Health System07-24-2024 Telephone encounter Note * Telephone Encounter - Saida Rodriguez - 11/01/2023 12:14 PM EDT Prescription Refill Information The patient has been identified by name and date of : Yes Caregiver verified no other encounters exist for this prescription request: Yes Caregiver confirmed with patient/requestor that no other refills are due, in the near future, with this provider at this time: Yes The last office visit in the department: 05/30/23 Does the patient have a future office visit with this provider/department: Yes Requested Prescriptions Pending Prescriptions Disp Refills atorvastatin (LIPITOR) 20 mg tablet 90 tablet 3 Sig: Take 1 tablet by mouth once daily. Saida Pacheco November 01, 2023 12:15 PM [facility] Miscellaneous Notes* Telephone Encounter - Saida Rodriguez - 11/01/2023 12:14 PM EDT Prescription Refill Information The patient has been identified by name and date of : Yes Caregiver verified no other encounters exist for this prescription request: Yes Caregiver confirmed with patient/requestor that no other refills are due, in the near future, with this provider at this time: Yes The last office visit in the department: 05/30/23 Does the patient have a future office visit with this provider/department: Yes Requested Prescriptions Pending Prescriptions Disp Refills atorvastatin (LIPITOR) 20 mg tablet 90 tablet 3 Sig: Take 1 tablet by mouth once daily. Saida Pacheco November 01, 2023 12:15 PM documented in this encounterMemorial Health System07-23-2024 History of Present illness Narrative* Quincy Alonzo APRN.FACING GRINDER - 10/31/2023 9:02 AM EDT Images from the original note were not included. FOLLOW UP - PSYCHIATRIC PROGRESS NOTE PATIENT: Orion Dumont DATE: October 31, 2023 Visit Type:In person All information is from Patient report except when noted. This evaluation is NOT intended for forensic, disability or child custody purposes. Some elements were copied from the previous note which have been updated where appropriate and reflect current decision making from today October 31, 2023. CC: Presenting today for follow up regarding psychiatric medication management. HPI: Treatment Plan from Last Visit on 08/01/2023: Continue Lamictal, Buspar, and Zoloft at the same dose. Lab work: none Other: Encouraged patient to reach out the [employer] [facility] in [place] for socialization. Encouraged patient to visit the [facility] for activities there. Today Orion shares that he has been struggling with excessively overthinking. Wondering if medications are enough to support him. Lives with sister who is 70 and in the past month she has fallen 4 times. Worries about her well-being. Care giving for sister takes a toll on him. Engaging in comfort eating with various carbs and processed food. Struggling with severe arthritis in various parts of the body. Takes Tylenol and topical solution to help with pain. Has some anxiety about a review of his workman's comp that is coming up. Continues to feel lonely. Due to his LGBTQ beliefs, he has a hard time relating to others. Grateful that sister's political views are in line with his. Has not been able to go to the [facility] for the past 2 years due to feeling alienated due to his beliefs. Does verbalize that he would benefit from engaging in therapy. 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 Currently chest pain free; However, there is a high chance of recurrence since treatment has been on hold. Giving him steroid might actually put him at more risk of re bleeding. NSAID'S notan option for now. Plan: Consider Colchicine. If patient is to be restarted on AC, Colchicine has DVT (deep venous thrombosis) (HCC) 01/12/2010 S/P IVC filter, occurred post-op, on anticoagulation (for a fib) Eating disorder, unspecified 07/01/2009 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 Essential hypertension, benign Fatty liver 11/03/2009 by us Gall stones, common bile duct 12/07/2013 Generalized anxiety disorder 07/01/2009 GI bleed 06/29/2012 Hip joint replacement by other means 09/21/2012 Hyperlipidemia 08/25/2020 Impaired fasting glucose 05/05/2021 Impotence of organic origin Iron deficiency anemia 08/02/2012 skilled nursing current use of anticoagulant 02/09/2015 Major depressive disorder, recurrent episode, moderate (HCC) 07/01/2009 Morbid obesity (HCC) 04/21/2009 stated BMI 51.1 Ht: 75 Wt: 410 lbs MSSA (methicillin susceptible Staphylococcus aureus) infection 07/03/2012 Hx: MSSA infection of serosal fluids collection in L chest wall. S/P I/D on 06/19. On IV oxacillin till and then dc'ed on 06/23 with a 10 day course of Dicloxacillin. 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 Currently chest pain free; Talked with cardiology - said no need for treatment is patientis treatment free Plan: Continue to monitor Postsurgical dumping syndrome 08/30/2012 Pulmonary embolism (HCC) 03/01/2010 Retinal detachment OD Stage 1 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 ([facility]) 08/15/2022 Syncope 11/02/2018 Torn rotator cuff Upper GI bleed 07/03/2012 Hx: UGIB presenting to OSH on 06/29 with Melanotic stool; 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 Plan: Monitor H&H Q8H, transfuse as necessary, keep Hb>8 Consult IR for further intervention Protonix gtt for now, will switch to protonix 40mg bid when Hb is stable after 48-72 salma UTI (lower urinary tract infection) Varicose veins 2010 Varicose veins of both legs with edema 2010 Vitamin D deficiency 08/02/2012 PAST SURGICAL HISTORY Procedure Laterality Date APPENDECTOMY HX ARTHRP ACETBLR/PROX FEM PROSTC AGRFT/ALGRFT 1993 left BACK SURGERY HX CARDIOVERSION CHOLECYSTECTOMY 11/18/2013 COLONOSCOPY 02/22/2023 repeat 10 years COLONOSCOPY GEN ANES 04/20/2020 CYSTO BLADDER W/URETERAL CATHETERIZATION 01/30/2010 CYSTOSCOPY, RETROPYELOGRAM performed by RADHA OLIVAREZ at OR CYSTO W/INSERT URETERAL STENT 01/30/2010 CYSTOSCOPY, INSERTION STENT URETERAL J performed by RADHA OLIVAREZ at OR CYSTOURETHROSCOPY 06/16/2017 Cystoscopy DISKECTOMY, LUMBAR, SINGLE SP 1981 L4-5 EGD 04/20/2020 GASTRIC BYPASS HX 2008 w/ complications. JOINT REPLACEMENT HX NEPHROLITHOTOMY REMOVAL STAGE 1 05/02/2012 PAST SURGICAL HISTORY OF 1967 left hip pin PAST SURGICAL HISTORY OF 04/23/2012 heart surgery PAST SURGICAL HISTORY OF 06/04/2012 stitches for broken blood vesel in rectum REDUCE BOWEL OBSTRUCTION 06/24/2010 Performed by RAN REPAIR RETINAL DETACHMENT SCLERAL BUCKLING 10/2009 od Scleral Buckle REPAIR RETINAL DETACHMENT SCLERAL BUCKLING 08/05/2013 SB (Scleral Buckle)/ cyro os REVISE MEDIAN N/CARPAL TUNNEL SURG Left 10/2020 SESAMOIDECTOMY, THUMB/FINGER Left 06/30/2022 Left Thumb arthroplasty VITRECTOMY MECHANICAL PARS PLANA 09/03/2013 PPV / EL / gas OS ALLERGIES Allergen Reactions Rivaroxaban Rash Sulfa (Sulfonamide * Intolerance, Hives Pt says that he has had silvadene cream in the past after cardioversions without side effects Adhesive Tape (Magalie* Rash Niacin Other: See Comments Itching, head lam Wool Itching Wool Itching Diclofenac Sodium Rash Fixed drug eruption Current Outpatient Medications on File Prior to Visit Medication Sig ELIQUIS 5 mg tab(s) take 1 tablet by mouth twice a day sertraline (ZOLOFT) 100 mg tablet Take 1 tablet by mouth once daily. busPIRone (BUSPAR) 15 mg tablet Take 1 tablet by mouth two times a day. pantoprazole DR (PROTONIX) 40 mg tablet Take 1 tablet by mouth daily before breakfast. Take on empty stomach, 1/2 hr before meal. atorvastatin (LIPITOR) 20 mg tablet Take 1 tablet by mouth once daily. digoxin (LANOXIN) 250 mcg (0.25 mg) tablet Take 1 tablet by mouth once daily. fludrocortisone (FLORINEF) 0.1 mg tablet Take 1 tablet by mouth once daily. bisoprolol (ZEBETA) 5 mg tablet Take 1 tablet by mouth once daily. oxybutynin XL (DITROPAN XL) 5 mg 24 hr tablet TAKE 1 TABLET BY MOUTH EVERY DAY cholecalciferol (VITAMIN D3) 50 mcg (2,000 unit) tablet Take 1 tablet by mouth daily with dinner. calcium citrate-vitamin D3 (CITRACAL PLUS D) 315 mg-5 mcg (200 unit) tab Take 1 tablet by mouth twice daily with meals. With each meal. Nzmil1-QkbE6-X19-E-FA-Fish Oil [id number] sh-ds-txk-mcg cap Take 600 mg by mouth once daily. (Patient taking differently: Take 600 mg by mouth two times a day.) pyridoxine (VITAMIN B-6) 100 mg tablet Take 2 tablets by mouth twice daily. docusate sodium 100 mg capsule Take 1 capsule by mouth twice daily as needed for Constipation. lamoTRIgine (LAMICTAL) 100 mg tablet Take 1 tablet by mouth once daily. No current facility-administered medications on file prior to visit. ROS: See HPI PFSH: See HPI VITAL SIGNS: 10/31/23 0838 BP: 124/82 Pulse: 78 Resp: 14 Weight: 108.9 kg (240 lb) Last 3 Encounter BP Readings: Date: BP: 10/31/2023 124/82 09/18/2023 90/70 08/01/2023 102/64 MENTAL STATUS EXAMINATION: Mental Status Exam General/Sensorium: Alert Orientation: AAOx3 Appearance: Casually dressed and appears stated age Eye contact: Appropriate Demeanor: Appropriately interactive Motor activity: Calm Speech: Articulate with appropriate rhythm and volume Mood: Anxious Affect: Congruent with mood Thought process: Linear, logical, and goal-directed Associations: Normal Thought content: Discussing stressors and focused on history, symptoms, and management Suicidal ideation: SI: no Plan: no Intent: no Homicidal ideation: HI: no Plan: no Intent: no Abnormal/psychotic thoughts: Absent Perceptions: He does not appear internally stimulated. Intelligence: Average Attention: Intact Memory: Short-term: Intact Long-term: Intact Language: Intact Fund of knowledge: Fair Insight: Fair Judgment: Fair Gait: Steady Station: Sitting DATA REVIEWED: Psychiatric scales, Electronic medical record, and PDMP report, Labs, and consult notes PDMP website checked and validated. All prescriptions have been APPROPRIATELY filled. No suspiciousactivity was identified. 10/31/2023 by Quincy Alonzo APRN.FACING GRINDER DIAGNOSIS: Generalized anxiety disorder Recurrent major depressive disorder, in partial remission (hcc) (primary encounter diagnosis) Chronic post-traumatic stress disorder (ptsd) GAF: -60-51 Moderate symptoms or moderate difficulty in social, occupational or school functioning. TREATMENT PLAN: Continue Zoloft, Lamictal, and Buspar at the same dose. Patient has been more consistent in taking his medications. Referred patient to the [facility] IOP for intensive therapy as most of his stressors are related to multiple psychosocial factors. Patient has also been encouraged to pursue individual counseling emt intermediate. He is in agreement with this plan. Patient will reach out to the provider to share if he will be able to engage in the IOP program or not after speaking with their intake team. MEDICATION CHANGES: Current medication regimen unchanged. - Reviewed Lamictal titration & risk of severe rash. Instructed to call [facility] if this occurs. Risks and benefits of the medication, including any black box warnings, were discussed with the patient. Patient is aware to reach out with any questions, concerns, or worsening of symptoms prior to the next appointment. Patient educated on risks of substance use in combination with medications and advised that any substance use along with medications may alter their effectiveness. Follow Up: Will determine once update is received about patient's engagement in the IOP as discussed during the visit. I spent a total of 28 minutes on the date of the service which included preparing to see the patient, [id number] patient care, completing clinical documentation, and counseling and educating the patient/family/caregiver, ordering medications/labs, communicating with other health care providers and coordination of care. ADD ON PSYCHOTHERAPY CODE : No SIGNATURE: Quincy Alonzo APRN.CNP PATIENT NAME: Orion Dumont DATE: October 31, 2023 TIME: 9:02 AM documented in this encounterMemorial Health System07-22-2024 Telephone encounter Note * Telephone Encounter - Lyudmila Baxter RN - 10/30/2023 8:47 AM EDT [facility] 02/21/23 Patient phones requesting refills as follows: Requested Prescriptions Pending Prescriptions Disp Refills oxybutynin XL (DITROPAN XL) 5 mg 24 hr tablet [Pharmacy Med Name: OXYBUTYNIN CL ER 5 MG TABLET] 90 tablet 3 Sig: take 1 tablet by mouth every day Please review and advise. Lyudmila Baxter RN [facility]-22-[facility]24 Miscellaneous Notes* Telephone Encounter - Lyudmila Baxter RN - 10/30/2023 8:47 AM EDT [facility] 02/21/23 Patient phones requesting refills as follows: Requested Prescriptions Pending Prescriptions Disp Refills oxybutynin XL (DITROPAN XL) 5 mg 24 hr tablet [Pharmacy Med Name: OXYBUTYNIN CL ER 5 MG TABLET] 90 tablet 3 Sig: take 1 tablet by mouth every day Please review and advise. Lyudmila Baxter RN documented in this encounterMemorial Health System06-10-2024 Nurse Note* Enid Adams MA - 09/18/2023 8:22 AM EDT Orion presents today for Routine visit.. Medication Refills needed today: No Pharmacy has been captured? 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 Currently chest pain free; However, there is a high chance of recurrence since treatment has been on hold. Giving him steroid might actually put him at more risk of re bleeding. NSAID'S notan option for now. Plan: Consider Colchicine. If patient is to be restarted on AC, Colchicine has DVT (deep venous thrombosis) (HCC) 01/12/2010 S/P IVC filter, occurred post-op, on anticoagulation (for a fib) Eating disorder, unspecified 07/01/2009 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 Essential hypertension, benign Fatty liver 11/03/2009 by us Gall stones, common bile duct 12/07/2013 Generalized anxiety disorder 07/01/2009 GI bleed 06/29/2012 Hip joint replacement by other means 09/21/2012 Hyperlipidemia 08/25/2020 Impaired fasting glucose 05/05/2021 Impotence of organic origin Iron deficiency anemia 08/02/2012 emt intermediate current use of anticoagulant 02/09/2015 Major depressive disorder, recurrent episode, moderate (HCC) 07/01/2009 Morbid obesity ([facility]) 04/21/2009 stated BMI 51.1 Ht: 75 Wt: 410 lbs MSSA (methicillin susceptible Staphylococcus aureus) infection 07/03/2012 Hx: MSSA infection of serosal fluids collection in L chest wall. S/P I/D on 06/19. On IV oxacillin till and then dc'ed on 06/23 with a 10 day course of Dicloxacillin. 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 Currently chest pain free; Talked with cardiology - said no need for treatment is patientis treatment free Plan: Continue to monitor Postsurgical dumping syndrome 08/30/2012 Pulmonary embolism (HCC) 03/01/2010 Retinal detachment OD Stage 1 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 ([facility]) 08/15/2022 Syncope 11/02/2018 Torn rotator cuff Upper GI bleed 07/03/2012 Hx: UGIB presenting to OSH on 3/22 with Melanotic stool; EGD showed jejunal pouch ulcers and dieulafoy lesion which were clipped and injected Given IV PPI Assessment: UGI / to Dieulafoy and NSAID induced ulcers. Plan: Monitor H&H Q8H, transfuse as necessary, keep Hb>8 Consult IR for further intervention Protonix gtt for now, will switch to protonix 40mg bid when Hb is stable after 48-72 salma UTI (lower urinary tract infection) Varicose veins 2010 Varicose veins of both legs with edema 2010 Vitamin D deficiency 08/02/2012 PAST SURGICAL HISTORY Procedure Laterality Date APPENDECTOMY HX ARTHRP ACETBLR/PROX FEM PROSTC AGRFT/ALGRFT 1993 left BACK SURGERY HX CARDIOVERSION CHOLECYSTECTOMY 11/18/2013 COLONOSCOPY 02/22/2023 repeat 10 years COLONOSCOPY GEN ANES 04/20/2020 CYSTO BLADDER W/URETERAL CATHETERIZATION 01/30/2010 CYSTOSCOPY, RETROPYELOGRAM performed by RADHA OLIVAREZ at OR CYSTO W/INSERT URETERAL STENT 01/30/2010 CYSTOSCOPY, INSERTION STENT URETERAL J performed by RADHA OLIVAREZ at OR CYSTOURETHROSCOPY 06/16/2017 Cystoscopy DISKECTOMY, LUMBAR, SINGLE SP 1982 L4-5 EGD 04/20/2020 GASTRIC BYPASS HX 2008 w/ complications. JOINT REPLACEMENT HX NEPHROLITHOTOMY REMOVAL STAGE 1 05/02/2012 PAST SURGICAL HISTORY OF 1967 left hip pin PAST SURGICAL HISTORY OF 04/23/2012 heart surgery PAST SURGICAL HISTORY OF 06/04/2012 stitches for broken blood vesel in rectum REDUCE BOWEL OBSTRUCTION 06/24/2010 Performed by RAN REPAIR RETINAL DETACHMENT SCLERAL BUCKLING 10/2009 od Scleral Buckle REPAIR RETINAL DETACHMENT SCLERAL BUCKLING 08/05/2013 SB (Scleral Buckle)/ cyro os REVISE MEDIAN N/CARPAL TUNNEL SURG Left 10/2020 SESAMOIDECTOMY, THUMB/FINGER Left 06/30/2022 Left Thumb arthroplasty VITRECTOMY MECHANICAL PARS PLANA 09/03/2013 PPV / EL / gas OS FAMILY HISTORY Problem Relation Age of Onset Ischemic Heart Disease Father Diabetes Mother other (Other) Mother Diabetes Sister Cataract Sister Detached Retina Sister SOCIAL HISTORY Social History Tobacco Use Smoking status: Never Smokeless tobacco: Never Vaping Use Vaping Use: Never used Substance Use Topics Alcohol use: No Drug use: No Rivaroxaban, Sulfa (Sulfonamide Antibiotics), Adhesive Tape (Rosins), Niacin, Wool, Wool, and Diclofenac Sodium Current Outpatient Medications Medication Sig lamoTRIgine (LAMICTAL) 100 mg tablet Take 1 tablet by mouth once daily. sertraline (ZOLOFT) 100 mg tablet Take 1 tablet by mouth once daily. busPIRone (BUSPAR) 15 mg tablet Take 1 tablet by mouth two times a day. pantoprazole DR (PROTONIX) 40 mg tablet Take 1 tablet by mouth daily before breakfast. Take on empty stomach, 1/2 hr before meal. atorvastatin (LIPITOR) 20 mg tablet Take 1 tablet by mouth once daily. digoxin (LANOXIN) 250 mcg (0.25 mg) tablet Take 1 tablet by mouth once daily. fludrocortisone (FLORINEF) 0.1 mg tablet Take 1 tablet by mouth once daily. bisoprolol (ZEBETA) 5 mg tablet Take 1 tablet by mouth once daily. oxybutynin XL (DITROPAN XL) 5 mg 24 hr tablet TAKE 1 TABLET BY MOUTH EVERY DAY cholecalciferol (VITAMIN D3) 50 mcg (2,000 unit) tablet Take 1 tablet by mouth daily with dinner. calcium citrate-vitamin D3 (CITRACAL PLUS D) 315 mg-5 mcg (200 unit) tab Take 1 tablet by mouth twice daily with meals. With each meal. [id number]-Fish Oil [id number] ie-[id number]-[id number] cap Take 600 mg by mouth once daily. (Patient taking differently: Take 600 mg by mouth two times a day.) pyridoxine (VITAMIN B-6) 100 mg tablet Take 2 tablets by mouth twice daily. docusate sodium 100 mg capsule Take 1 capsule by mouth twice daily as needed for Constipation. No current facility-administered medications for this visit. Specialty Problems Cardiology Problems Varicose veins of both legs with edema Orthostatic hypotension Atrial fibrillation with RVR (HCC) Hyperlipidemia Chronic combined systolic and diastolic congestive heart failure (HCC) LABS: No recent labs CARDIAC TESTING: No recent cardiac testing Last 3 Encounter BP Readings: Date: BP: 08/01/2023 102/64 06/06/2023 102/60 05/30/2023 104/68 Last 3 Encounter Pulse Readings: Date: Pulse: 08/01/2023 80 05/30/2023 68 05/12/2023 72 Last 3 Encounter Wt Readings: Date: Wt: 08/01/2023 103.8 kg (228 lb 12.8 oz) 06/06/2023 103 kg (227 lb) 05/30/2023 103.1 kg (227 lb 6.4 oz) PHYSICAL EXAMINATION: BP 90/70 Wt 103.4 kg (228 lb) BMI 30.08 kg/m Body mass index is 30.08 kg/m . GENERAL: Alert, oriented., Well appearing. No jaundice, anemia, clubbing, or cyanosis. ENT:Hearing normal, no speech or swallowing difficulties. No epistaxix NECK: No JVD, masses, or thyromegaly. Good carotid upstrokes. No carotid bruit. No lymphadenopathy. CARDIAC: Regular rhythm. Normal S1 and S2. No murmur, rub or gallop. No parasternal heave or thrill. [place] not displaced. CHEST: Chest clear to auscultation. ABDOMEN: Soft, nontender, with no obvious organomegaly or masses. No epigastric bruit. EXTREMITIES :Normal, Normal pulses bilaterally., No Edema, No calf tenderness, and alverto varicosities SKIN: Warm peripheries, no rash. NEURO: Awake, alert and oriented x 3, Cranial nerves II-XII grossly intact, Reflexes symmetrical, Normal gait, and No involuntary motions ASSESSMENT AND PLAN Patient here for routine visit, no new complaints at this time. Continues to be quite inactive. Weight is about the same, does not exercise after all. However he denies new complaints of increasing shortness of breath, edema, arrhythmic palpitations, chest pains. Prior catheterization had not shown significant coronary atherosclerosis. Echo was originally had shown mild decrease in ejection fraction with subsequently has normalized by criteria of his latest nuclear perfusion scan. By echo it is around 50%. There is no valvular disease or pericardial disease, no pulmonary hypertension. Overall I think he is doing well. I reviewed his medications. His EKG shows atrial fibrillation with a controlled ventricular rate. He has been on chronic Eliquis therapy that he is tolerating well. No change in other medications, follow-up with us in 6 months. Leonides Baker MD documented in this encounterMemorial [facility] System06-10-2024 Nurse Note* Enid Adams MA - 09/18/2023 8:22 AM EDT Orion presents today for Routine visit.. Medication Refills needed today: No Pharmacy has been captured? No ENID ADAMS MA documented in this encounterMemorial Health System06-05-2024 History of Present illness Narrative* Lina Jorgensen RT(R) - 09/13/2023 3:50 PM EDT Radiology Service Progress Note PATIENT NAME: Orion Dumont DATE OF SERVICE: September 13, 2023 TIME: 3:41 PM PATIENT IDENTITY VERIFICATION COMPLETED USING TWO (2) IDENTIFIERS: Name and Date of confirmedby patient verbally. FALL SCREENING: Has the patient had 2 falls in the last year or 1 fall with injury or currently using an Ambulatory Assistive Device (Walker, Cane, Wheelchair, Crutches, etc.)?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 in [facility] encounterMem[facility]24 Nurse Note* Enid Adams - 06/06/2023 10:10 AM EST Orion presents today for Routine visit.. Medication Refills needed today: No Pharmacy has been captured? No ADIN ADAMS documented in this encounterMem[facility]02[facility]20-2024 History of Present illness Narrative* Quincy Alonzo APRN.RAJAN - 05/30/2023 8:45 AM EST FOLLOW UP - PSYCHIATRIC PROGRESS NOTE Visit Type:Virtual Visit utilizing two-way audio and video for at least a portion of the visit. Consent for virtual visit obtained verbally. Confidentiality limitations with virtual visits reviewed with the patient and guardian, if present, who have accepted the risk verbally prior to proceeding with encounter. I have communicated my name and active licensure. The patient's identity and physical location were verified at the time of this visit. Either the patient or their legal sales and merchandising representative has been informed of the risks and benefits of -- and alternatives to -- treatment through a remote evaluation and consents to proceed with the evaluation remotely. Reason for Visit: Outpatient follow-up and safety monitoring of previously prescribed psychiatric medication, psychotherapy or other treatment Quincy Henning APRN.RAJAN, personally performed the services described in this documentation. All medical record entries made by the [employer] student were at my direction and in my presence. I have reviewed the chart and discharge instructions (if applicable) and agree that the record reflects my personal performance and is accurate and complete. Quincy Alonzo APRN.RAJAN June 01, 2023 6:17 PM CC: Follow up visit for medication management HPI: Greg reports many issues with his neck pain today. He reports that his sleep is bad because he fights going to sleep. He forces himself not to go to sleep. 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 He sleeps off and on throughoutthe day, for a maximum of 5-6 hours. He stays up all night. He doesn't get enjoyment out of things that he used to, like looking forward to video games. He loves to go shopping, but doesn't enjoy it anymore. He reports not being able to get out because of hispain. He feels that he is not getting any relief from his pain. His sister in December 2022. She is the first of 8 siblings to . He lives with his other sister. He says that the sister he lives with could not live on her own. They help each other out, like she helped him after surgeries. He reports that things ended with Keyon after he wouldn't give him any money. He ended relationshipabout 8 months ago. He tried another relationship that also ended after he established financial boundaries. When he was taking Lamictal he said he wasn't feeling as depressed. He is not on any opioids and hasn't been for three weeks. He attributes much of his depression to his pain. He feels ignored and unheard by his doctors. He was referred to get another MRI. He reports rarely wanting to go to sleep and not wanting to wake up because of the pain. He deines having a plan or intention of hurting himself. He says he hasn't had any Lamictal, so hasn't been taking it. He reports having a bad reaction to niacin. He is taking Buspar 15 mg daily at any given time during the day. He takes it twice per day a couple of days per week. He is taking Zoloft 100 mg once per day, also at any given time during the day. He makes up his pill boxes 8 weeks at a time. He reports not being able to take all his night pillsbecaues of his irregular sleep schedule. He reports that his appetite has been uncontrolloable. He has gained 20 pounds since March. Risks and benefits of the medication, including any black box warnings, were discussed with the patient. Interval Progress: Worse PATIENT DATA: Generalized Anxiety Disorder Scale (LANA-7) LANA - 7 SCORES 04/21/2022 05/17/2022 05/30/2023 LANA-7 Score 7 10 9 (0-4) minimal anxiety, (5-9) mild anxiety, (10-14) moderate anxiety, (15-21) severe anxiety Patient Health Questionnaire (PHQ-9) PHQ-9 04/21/2022 05/17/2022 05/30/2023 Score 5 5 11 (0-4) minimal depression, (5-9) mild depression, (10-14) moderate depression, (15-19) moderately severe depression, (20-27) severe depression PROMIS Global Health PROMIS Global Health - (T-Scores - the mean of general population = 50. 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 Currently chest pain free; However, there is a high chance of recurrence since treatment has been on hold. Giving him steroid might actually put him at more risk of re bleeding. NSAID'S notan option for now. Plan: Consider Colchicine. If patient is to be restarted on AC, Colchicine has DVT (deep venous thrombosis) ([facility]) 01/12/2010 S/P IVC filter, occurred post-op, on anticoagulation (for a fib) Eating disorder, unspecified 07/01/2009 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 Essential hypertension, benign Fatty liver 11/03/2009 by us Gall stones, common bile duct 12/07/2013 Generalized anxiety disorder 07/01/2009 GI bleed 06/29/2012 Hip joint replacement by other means 09/21/2012 Hyperlipidemia 08/25/2020 Impaired fasting glucose 05/05/2021 Impotence of organic origin Iron deficiency anemia 08/02/2012 emt intermediate current use of anticoagulant 02/09/2015 Major depressive disorder, recurrent episode, moderate (HCC) 07/01/2009 Morbid obesity ([facility]) 04/21/2009 stated BMI 51.1 Ht: 75 Wt: 410 lbs MSSA (methicillin susceptible Staphylococcus aureus) infection 07/03/2012 Hx: MSSA infection of serosal fluids collection in L chest wall. S/P I/D on 06/19. On IV oxacillin till and then dc'ed on 06/23 with a 10 day course of Dicloxacillin. 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 Currently chest pain free; Talked with cardiology - said no need for treatment is patientis treatment free Plan: Continue to monitor Postsurgical dumping syndrome 08/30/2012 Pulmonary embolism ([facility]) 03/01/2010 Retinal detachment OD Stage 1 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 ([facility]) 08/15/2022 Syncope 11/02/2018 Torn rotator cuff Upper GI bleed 07/03/2012 Hx: UGIB presenting to OSH on 06/29 with Melanotic stool; EGD showed jejunal pouch ulcers and dieulafoy lesion which were clipped and injected Given IV PPI Assessment: UGI 2/2 to Dieulafoy and NSAID induced ulcers. Plan: Monitor H&H Q8H, transfuse as necessary, keep Hb>8 Consult IR for further intervention Protonix gtt for now, will switch to protonix 40mg bid when Hb is stable after 48-72 salma UTI (lower urinary tract infection) Varicose veins 2010 Varicose veins of both legs with edema 2010 Vitamin D deficiency 08/02/2012 PAST SURGICAL HISTORY Procedure Laterality Date APPENDECTOMY HX ARTHRP ACETBLR/PROX FEM PROSTC AGRFT/ALGRFT 1993 left BACK SURGERY HX CARDIOVERSION CHOLECYSTECTOMY 11/18/2013 COLONOSCOPY 02/22/2023 repeat 10 years COLONOSCOPY GEN ANES 04/20/2020 CYSTO BLADDER W/URETERAL CATHETERIZATION 01/30/2010 CYSTOSCOPY, RETROPYELOGRAM performed by RADHA OLIVAREZ at OR CYSTO W/INSERT URETERAL STENT 01/30/2010 CYSTOSCOPY, INSERTION STENT URETERAL J performed by RADHA OLIVAREZ at OR CYSTOURETHROSCOPY 06/16/2017 Cystoscopy DISKECTOMY, LUMBAR, SINGLE SP 1982 L4-5 EGD 04/20/2020 GASTRIC BYPASS HX 2009 w/ complications. JOINT REPLACEMENT HX NEPHROLITHOTOMY REMOVAL STAGE 1 05/02/2012 PAST SURGICAL HISTORY OF 1967 left hip pin PAST SURGICAL HISTORY OF 04/23/2012 heart surgery PAST SURGICAL HISTORY OF 06/04/2012 stitches for broken blood vesel in rectum REDUCE BOWEL OBSTRUCTION 06/24/2010 Performed by RAN REPAIR RETINAL DETACHMENT SCLERAL BUCKLING 10/2009 od Scleral Buckle REPAIR RETINAL DETACHMENT SCLERAL BUCKLING 08/05/2013 SB (Scleral Buckle)/ cyro os REVISE MEDIAN N/CARPAL TUNNEL SURG Left 10/2020 SESAMOIDECTOMY, THUMB/FINGER Left 06/30/2022 Left Thumb arthroplasty VITRECTOMY MECHANICAL PARS PLANA 09/03/2013 PPV / EL / gas OS Current Outpatient Medications Medication Sig Dispense Refill apixaban (ELIQUIS) 5 mg tab(s) Take 1 tablet by mouth two times a day. [address] (PROTONIX) 40 mg tablet Take 1 tablet by mouth daily before breakfast. Take on empty stomach, 1/2 hr before meal. 90 tablet 3 atorvastatin (LIPITOR) 20 mg tablet Take 1 tablet by mouth once daily. 90 tablet 3 sertraline (ZOLOFT) 100 mg tablet Take 1 tablet by mouth once daily. 90 tablet 3 digoxin (LANOXIN) 250 mcg (0.25 mg) tablet Take 1 tablet by mouth once daily. 90 tablet 2 fludrocortisone (FLORINEF) 0.1 mg tablet Take 1 tablet by mouth once daily. 90 tablet 2 bisoprolol (ZEBETA) 5 mg tablet Take 1 tablet by mouth once daily. 90 tablet 2 oxybutynin XL (DITROPAN XL) 5 mg 24 hr tablet TAKE 1 TABLET BY MOUTH EVERY DAY 90 tablet 3 busPIRone (BUSPAR) 15 mg tablet Take 1 tablet by mouth twice daily. 180 tablet 1 cholecalciferol (VITAMIN D3) 50 mcg (2,000 unit) tablet Take 1 tablet by mouth daily with dinner. calcium citrate-vitamin D3 (CITRACAL PLUS D) 315 mg-5 mcg (200 unit) tab Take 1 tablet by mouth twice daily with meals. With each meal. [id number]-E-FA-Fish Oil [id number] ka-dd-rug-mcg cap Take 600 mg by mouth once daily. (Patient taking differently: Take 600 mg by mouth two times a day.) pyridoxine (VITAMIN B-6) 100 mg tablet Take 2 tablets by mouth twice daily. 180 tablet 6 docusate sodium 100 mg capsule Take 1 capsule by mouth twice daily as needed for Constipation. 60 capsule 2 No current facility-administered medications for this visit. ROS: See HPI PFSH: See HPI VITAL SIGNS: 05/30/23 0828 BP: 104/68 Pulse: 68 Weight: 103.1 kg (227 lb 6.4 oz) MENTAL STATUS EXAM: CONSTITUTIONAL: Well groomed, Appropriately dressed, Casually dressed ORIENTATION: Person, Place, Time and Situation MEMORY: Recent intact, Remote intact, Immediate intact CONCENTRATION: Normal MOOD: depressed AFFECT: Full and appropriate to topic SPEECH : Clear & distinct LANGUAGE : Normal ASSOCIATIONS: Intact THOUGHT PROCESS : Logical, Coherent, Rational, Perseveration on his physical pain and physical pain PROGRESSION : There was no evidence of disturbance in thought perception or progression. FUND OF KNOWLEDGE : Appropriate and Adequate SUICIDE: Rare thoughts of wanting to go to sleep and not wake up HOMICIDE: None DATA REVIEWED: Psychiatric Scales and electronic medical record. DIAGNOSIS: MDD, recurrent, severe Generalized Anxiety Disorder Chronic PTSD GAF: -60-51 Moderate symptoms or moderate difficulty in social, occupational or school functioning. TREATMENT PLAN: 1. Take Buspar 15 mg at 10:00 AM with morning meds and 10:00 PM in evening with evening meds 2. Take Zoloft 100 mg at 10:00 AM with morning meds 3. Take Lamictal 25 mg at 10:00 AM with morning meds for 2 weeks, then increase to 50 mg for 2 weeks, then increase to 75 mg for two weeks 4. Schedule psychotherapy appointment. 5. Follow up on July 03 at 8:00 AM MEDICATION CHANGES: 1. Take Buspar 15 mg twice per day, at 10:00 AM and 10:00 PM 2. Take Zoloft 100 mg at 10:00 AM 3. Take Lamictal 25 mg at 10:00 AM with morning meds for 2 weeks, then increase to 50 mg for 2 weeks, then increase to 75 mg for two weeks (Taking medications at same time every day at 10:00 AM and 10:00 PM is also a change.) Patient is aware of the rash side effect associated with Lamictal. He is aware to reach out to the ER for evaluation in case of a severe rash. Follow Up: Follow up on July 03 at 800 AM I spent a total of 62 minutes on the date of the service which included preparing to see the patient, [id number] patient care, completing clinical documentation, obtaining and/or reviewing separately obtained history, performing a medically appropriate examination, counseling and educating the pat ient/family/caregiver, and ordering medications, tests, or procedures. ADD ON PSYCHOTHERAPY CODE : No SIGNATURE: Quincy Alonzo APRN.RAJAN PATIENT NAME: Orion Dumont DATE: May 30, 2023 TIME: 8:45 AM documented in this encounterMemorial Health System02-07-2024 History of Present illness Narrative* Sofya Rodriguez PT, DPT - 05/17/2023 8:52 AM EST Program_ID:[id number] Access Code: [email or web address] URL: [email or web address] Date: 05-17-2023 Prepared By: Sofya Gabriel Program Notes Exercises - Seated Hamstring Stretch - 2 x daily - 7 x weekly - 1 sets - 10 reps - Supine Bridge - 2 x daily - 7 x weekly - 1 sets - 10 reps - Standing Hip Abduction with Counter Support - 2 x daily - 7 x weekly - 1 sets - 10 reps - Standing March at Pool Wall - 1 x daily - 7 x weekly - 3 sets - 10 reps - Standing Hip Abduction Adduction at Pool Wall - 1 x daily - 7 x weekly - 3 sets - 10 reps - Squat - 1 x daily - 7 x weekly - 3 sets - 10 reps - Standing Hip Circles at Pool Wall - 1 x daily - 7 x weekly - 3 sets - 10 reps * Sofya Rodriguez, PT, DPT - 05/17/2023 8:11 AM EST Episode Visit Count: 1 Therapist That Will Accept/Oversee The Plan Of Care: Sofya Rodriguez Start of Care Date: 05/17/23 Onset Date: 04/10/22 (chronic) Plan of Care Certification Date: 05/17/23 Next Certification Due Date: 07/12/23 Patient Identified by Name and Date of : Yes REHABILITATION AND SPORTS THERAPY PHYSICAL THERAPY EVALUATION PLAN OF CARE: Assessment: Orion Dumont presents with diagnosis of right hip pain that interferes with (Increased discomfort to touch and during single leg activities.) . He presents with impairments in flexibility, gait, independence in exercise, overall function, strength, symptom management, and tissue tende rness. PROMIS (Patient-Reported Outcomes Measurement Information System) scores were reviewed and all domains identified as a rehabilitation concern. Prognosis for therapy is Fair due to: multiple co- morbidities, chronic nature of impairments, Prognosis may be improved by current objective clinical presentation. He will benefit from skilled therapy services to meet the goals established for thisplan of care as noted below. Goals for Episode of Care: created on 05/17/23 through 07/12/23 [place] in home exercise program. Patient will demonstrate increase in BLE strength to at least 4+/5 during manual muscle testing in order to improve function for prior functional tasks. Patient will increase flexibility of bilateral hamstrings and hip external rotators to WNL to improve mechanics. Decreased tenderness to touch over lateral hip in 6 weeks. Normal gait without trendelenburg pattern. Patient Goals: Getting an exercise program Planned Interventions, Frequency, and Duration: Current Frequency: 1x/week (1x/week or every other week) Duration: 8 weeks Total Number of Visits Planned: (4-8) Planned Treatment Interventions: Therapeutic exercise (16132), Neuromuscular re- education (25896), Manual therapy (93690), Therapeutic activities (93564), Self- long term management (64508), Gait Training (04383), Body Mechanics Training, Functional training, General Conditioning, E-Stim Attended/TENS (27259), E-Stim Unattended (44094), Ultrasound (15666), Aquatic PT (26362) PLAN FOR NEXT VISIT: Assess response to HEP, progress LE strengthening exercises, assess balance Patient demonstrates good understanding of plan of care and treatment. The above goals and plan of care were discussed and agreed upon by patient/family. SUBJECTIVE: Patient presenting to PT for evluation of right hip pain. Patient states the pain is somewhat chronic, which he got cortisone injections for in the past. He states the hip is only tender to the touch, but is not bothersome during daily activities. Patient did say he had a fall onto the right hip within the last year. Patient Goals: Getting an exercise program Functional Limitations: (Increased discomfort to touch and during single leg activities.) Prior Level of Function: Independent without limitations Relevant History Past Relevant Surgical Conditions: Total Hip Replacement-Left, Total Hip Replacement-Right Employment: Retired Recreation / Current Exercise: Considering getting a [employer] membership Intake Information: Prescription present Previous Treatment: Injections Falls Interview: Fall without injury in the last year Pain: Pain Pain Level: 0 Pain Location: Hip - Right Post Treatment Pain Post Treatment Pain Level: No Change Post Treatment Pain Location: Hip - Right PROMIS Scales Higher is Better 05/17/2023 09/21/2019 06/04/2019 Phys Func - Score 41 (mild dysfunction) 29 (severe dysfunction) 27 (severe dysfunction) Phys Func - Percentile 18% 2% 1% Self-Eff Symptom - Score 38 (Low) - - Self-Eff Symptom - Percentile 12% - - T-scores: mean of general population = 50. 5 points is clinically meaningfully difference Percentiles provide an indication of how the patient's score ranks in relation to the general population. Higher percentile rankings indicate better function/quality of life. 50th percentile is the average of the general population and indicates half of respondents had a worse score. OBJECTIVE MEASURES WITH LEVEL OF FUNCTION: Posture / Alignment Posture: Forward head, Rounded shoulders Hip Observations R Hip Palpation Tenderness: Greater trochanter, Trochanteric bursa Sensation - Lower Extremity LE Light Touch Sensation: Grossly Intact LE Flexibility Flexibility: Hamstring Flexibility, Hip External Rotation Flexibility R Hamstring Flexibility: 41 degrees from extension L Hamstring Flexibility: 36 degrees from extension R Hip External Rotation Flexibility: impaired R>L L Hip External Rotation Flexibility: Impaired R>L LE Strength R Hip Flexion (L2): 4/5 (painful) R Hip ABduction: 4-/5 (painful) R Knee Extension (L3): 4+/5 R Knee Flexion: 4+/5 L Hip Flexion (L2): 4+/5 L Hip ABduction: 4/5 L Knee Extension (L3): 4+/5 L Knee Flexion: 4+/5 Special Tests - Hip and Spine Hip and Spine Special Tests: AMISH Test, FADDIR Test, Scour Test AMISH Test: Right Positive, Left Positive FADDIR Test: Right Positive Scour Test: Right Negative, Left Negative Gait Gait Observation: Patient ambulating with decreased gait speed. Mild antalgic pattern with right trendelenberg pattern. Stairs: Slow reciprocal pattern, use of bilateral railings. Education: Education Learning Preferences: Demonstration, Explanation, Performance, Printed Materials Barriers: None Learning/educational needs: Health promotion, Home exercise program, Plan of Care, Posture, Gait Training, Body Mechanics Education Provided: Yes, see treatment interventions for education provided Education Provided To: Patient Education Mode/Type: Explanation/Discussion, Literature/Printed Materials, Performance Response to Education/Teach Back: States/Identifies, Return Demonstration TREATMENT: PT Treatment Interventions: Therapeutic Exercise Evaluation Therapeutic Exercise: 1: Significant education provided regarding rehabilitation process, timeframe for strength gains, anatomy, importance of HEP compliance, and goals for PT. Education provided regarding pain neuroscience. Education provided regarding benefits of aquatic therapy. Education provided regarding health benefits of exercises and increased quality of life. 2: *seated hamstring stretch x30 sec bilat 3: *Supine bridge x10 4: *Standing hip abduction no resistance 5: Education on pool exercise program should the patient choose to get a membership. Print out of exercises provided Skilled Intervention: Patient was educated in proper exercise technique and purpose for exercises. Skilled judgment was used in selection of appropriate interventions. Provided written instruction for home exercise program to facilitate proper performance and compliance. Correct performance of therapeutic exercises was facilitated with verbal and visual cuing. Patient education as noted. Billing * Evaluation Low Complexity: 1 Unit Therapeutic Exercise Treatment Minutes: 30 Skilled Treatment Time Minutes (timed and untimed codes): 54 Total Session Time (minutes): 54 Session Start Time : 812 Session Stop Time : 906 Sofya Rodriguez PT, DPT documented in this encounterMemorial Health System02-07-2024 NoteImaging Result: AP lateral and oblique cervical spine x-rays demonstrates progression of degenerative disc disease and spondylolisthesis at C3-4 C4-5 C5-6 levels with increased instability compared to previous cervical spine x-rays at the C3 through C6 level. He has a natural fusion beginning at C4-5 level and increased thoracic kyphosis consistent with moderate to advanced cervical spondylosisMissouri Baptist Medical [id number] History of Present illness Narrative* Jerry Kellogg, DO - 05/15/2023 11:00 AM EST Subjective Patient ID: Orion Dumont is a 72 y.o. male. Chief Complaint: Pain of the Neck Last Surgery: No surgery found Last Surgery Date: No surgery found 72-year-old male with follow up neck pain chronic with debilitating arm pain as well and states difficulty sleeping in his neck we will seize with minimal movement. His x-rays today demonstrate compared to previous x-rays of more than 12 months ago progression of cervical spondylolisthesis and instability. He has not had a recent motor vehicle accident or traumatic injury to the neck. His pain has progressed over the last 9-12 months with paresthesia dysphagia dizziness and ataxia. Therefore with the progression of weakness and myelopathic presentation updated MRI cervical spine without contrast is medically necessary with hyperreflexia of the left arm increased instability and just the last 6-8 months for evaluation for surgical intervention. He is requiring Percocet on a daily basis andwe will discuss with [place] with Dr. Magallon office to refill this at this time. He is continuing physician guided home exercise program he is also tried physician guidance scapular stabilization home strengthening program he is tried multiple cervical medial branch blocks he is tried multiple pain intervention blocks with minimal relief. He is done anti-inflammatories steroid at this time is miserable with 10/10 back pain contributing from the neck which is also 10/10 with left arm weakness and therefore MRI cervical spine without contrast is medically necessary Pain This is a chronic problem. The current episode started more than 1 year ago. The problem has been rapidly worsening. Associated symptoms include headaches, neck pain and numbness. Pertinent negativesinclude no abdominal pain, chest pain, diaphoresis, fatigue, fever, nausea, visual change or weakness. The symptoms are aggravated by standing, stress, bending, coughing, sneezing, twisting and walkin g. He has tried immobilization, lying down, NSAIDs, heat, ice, acetaminophen, oral narcotics, position changes, relaxation, walking, sleep and rest for the symptoms. The treatment provided mild relief. Acute Neurological Problem This is a chronic problem. The current episode started more than 1 year ago. The problem has been rapidly worsening. Associated symptoms include headaches, neck pain and numbness. Pertinent negativesinclude no abdominal pain, chest pain, diaphoresis, fatigue, fever, nausea, visual change or weakness. He has tried acetaminophen, medication and neck support for the symptoms. The treatment providedno relief. Objective Back Exam Tenderness The patient is experiencing tenderness in the cervical and lumbar. Range of Motion Extension: 0 abnormal Flexion: 10 abnormal Lateral bend right: 10 abnormal Lateral bend left: 0 abnormal Rotation right: 10 abnormal Rotation left: 10 abnormal Reflexes Patellar: 3/4 Achilles: 3/4 Biceps: 3/4 Babinski's sign: abnormal Other Toe walk: abnormal Heel walk: abnormal Sensation: decreased Gait: antalgic Erythema: no back redness Scars: absent Comments: Appreciable clonus left ankle and positive Angélica sign left upper extremity Left Shoulder Exam Tenderness The patient is experiencing tenderness in the acromioclavicular joint, acromion and biceps tendon. Muscle Strength Abduction: 4/5 Internal rotation: 3/5 External rotation: 4/5 Supraspinatus: 3/5 Biceps: 3/5 Image Results: XR cervical spine 2 or 3 views Imaging Result: AP lateral and oblique cervical spine x-rays demonstrates progression of degenerative disc disease and spondylolisthesis at C3-4 C4-5 C5-6 levels with increased instability compared to previous cervical spine x-rays at the C3 through C6 level. He has a natural fusion beginning at C4-5 level and increased thoracic kyphosis consistent with moderate to advanced cervical spondylosis Assessment/Plan Encounter Diagnoses: Cervical spine pain Cervical spinal stenosis Spondylolisthesis of cervical region Cervical spondylosis Orders Placed This Encounter XR cervical spine 2 or 3 views MR cervical spine wo contrast This time MRI medically necessary reviewed imaging exhausted conservative management and progression neuro focal deficits for surgical plan No follow-ups on file. Answers submitted by the patient for this visit: Neurological Problem Questionnaire (Submitted on 05/14/2023) Chief Complaint: Neurologic complaint altered mental status: No clumsiness: No focal sensory loss: No focal weakness: Yes loss of balance: No memory loss: No near-syncope: No slurred speech: No syncope: No Onset quality: gradually Focality: left-sided auditory change: No aura: No back pain: No bladder incontinence: No bowel incontinence: No confusion: No dizziness: No documented in this encounterMissouri Baptist Medical [id number] History of Present illness Narrative* Florian Gonzalez MD - 05/12/2023 10:41 AM EST This note was created using TuneUpter. Subjective Orion Dumont is a 72 year old male. He was complaining of severe neck pain, and apparently had injections, and some kind of procedure for his neck several weeks ago. He reported being given opioids with no relief. He will see his neck applied behavior specialist, Dr. Kellogg somewhere in [place] next week. He also complained of chronic tenderness in his right posterior hip. This was not bothersome with activity, and only when laying down and local pressure was this felt. His other conditions were stable. We reviewed his labs. He requested follow up with mental health here. He sees multiple non [facility] providers. Review of Systems Constitutional: Negative for fatigue, fever and unexpected weight change. HENT: Negative. Respiratory: Negative for cough, shortness of breath and wheezing. Cardiovascular: Positive for leg swelling. Negative for chest pain and palpitations. Gastrointestinal: Negative. Genitourinary: Negative for difficulty urinating. Musculoskeletal: Positive for arthralgias and neck pain. Neurological: Negative. 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 Take on empty stomach, 1/2 hr before meal. atorvastatin (LIPITOR) 20 mg tablet Take 1 tablet by mouth once daily. sertraline (ZOLOFT) 100 mg tablet Take 1 tablet by mouth once daily. digoxin (LANOXIN) 250 mcg (0.25 mg) tablet Take 1 tablet by mouth once daily. fludrocortisone (FLORINEF) 0.1 mg tablet Take 1 tablet by mouth once daily. bisoprolol (ZEBETA) 5 mg tablet Take 1 tablet by mouth once daily. oxybutynin XL (DITROPAN XL) 5 mg 24 hr tablet TAKE 1 TABLET BY MOUTH EVERY DAY busPIRone (BUSPAR) 15 mg tablet Take 1 tablet by mouth twice daily. apixaban (ELIQUIS) 5 mg tab(s) Take 1 tablet by mouth twice daily. cholecalciferol (VITAMIN D3) 50 mcg (2,000 unit) tablet Take 1 tablet by mouth daily with dinner. calcium citrate-vitamin D3 (CITRACAL PLUS D) 315 mg-5 mcg (200 unit) tab Take 1 tablet by mouth twice daily with meals. With each meal. [id number]-Fish Oil [id number] cap Take 600 mg by mouth once daily. (Patient taking differently: Take 600 mg by mouth two times a day.) pyridoxine (VITAMIN B-6) 100 mg tablet Take 2 tablets by mouth twice daily. docusate sodium 100 mg capsule Take 1 capsule by mouth twice daily as needed for Constipation. No current facility-administered medications for this visit. No current facility-administered medications on file prior to visit. Objective BP 118/74 (BP Site: Left Arm, BP Position: Sitting, BP Cuff Size: Large Adult) Pulse 72 Resp 16 Ht 185.4 cm (6' 1) Wt 97.5 kg (215 lb) BMI 28.37 kg/m Physical Exam Constitutional: General: He is not in acute distress. Appearance: He is not ill-appearing. HENT: Head: Atraumatic. Cardiovascular: Rate and Rhythm: Normal rate. Rhythm irregular. Heart sounds: No murmur heard. No gallop. Pulmonary: Effort: No respiratory distress. Breath sounds: No wheezing or rales. Abdominal: General: There is no distension. Tenderness: There is no abdominal tenderness. Musculoskeletal: Cervical back: Pain with movement present. Decreased range of motion. Right hip: Tenderness present. No deformity, bony tenderness or crepitus. Normal range of motion. Normal strength. Left hip: Normal. Right lower le+ Pitting Edema present. Left lower le+ Pitting Edema present. Comments: Posterior hip soft tissue tenderness, right Lymphadenopathy: Cervical: No cervical adenopathy. Neurological: General: No focal deficit present. Mental Status: He is alert. Component Latest Ref Rng & Units 05/09/2023 Protein, Total 6.3 - 8.0 g/dL 6.3 Albumin 3.9 - 4.9 g/dL 4.4 Calcium 8.5 - 10.2 mg/dL 9.8 Bilirubin, Total 0.2 - 1.3 mg/dL 0.5 Alkaline Phosphatase 38 - 113 U/L 61 AST 14 - 40 U/L 36 ALT 10 - 54 U/L 42 Glucose 74 - 99 mg/dL 98 BUN 9 - 24 mg/dL 17 Creatinine 0.73 - 1.22 mg/dL 0.90 Sodium 136 - 144 mmol/L 142 Potassium 3.7 - 5.1 mmol/L 4.3 Chloride 97 - 105 mmol/L 105 CO2 22 - 30 mmol/L 30 Anion Gap 9 - 18 mmol/L 7 (L) eGFR >=60 mL/min/1.73m 92 WBC 3.70 - 11.00 k/uL 7.27 RBC 4.20 - 6.00 m/uL 4.53 Hemoglobin 13.0 - 17.0 g/dL 14.0 Hematocrit 39.0 - 51.0 % 42.3 MCV 80.0 - 100.0 fL 93.4 MCH 26.0 - 34.0 pg 30.9 MCHC 30.5 - 36.0 g/dL 33.1 RDW-CV 11.5 - 15.0 % 13.7 Platelet Count 150 - 400 k/uL 211 MPV 9.0 - 12.7 fL 11.0 Absolute nRBC <0.01 k/uL <0.01 Cholesterol, Total <200 mg/dL 165 Triglyceride <150 mg/dL 69 HDL Cholesterol >39 mg/dL 69 Non HDL Cholesterol <130 mg/dL 96 Fasting Time hrs 12 VLDL Cholesterol <30 mg/dL 14 TC:HDL Ratio <5.10 2.39 LDL Cholesterol <100 mg/dL 82 LDL:HDL Ratio <2.54 1.19 Hemoglobin A1C 4.3 - 5.6 % 5.6 Estimated Average Glucose mg/dL 114 Assessment and Plan 1. Medicare annual wellness visit, subsequent - ICD9: V70.0, ICD10: Z00.00 (primary diagnosis) See wellness note. 2. Atrial fibrillation with RVR (HCC) - ICD9: 427.31, ICD10: I48.91 Controlled, anticoagulated. 3. BPH with urinary obstruction - ICD9: 600.01, 599.69, ICD10: N40.1, N13.8 Controlled. 4. skilled nursing current use of anticoagulant - ICD9: V58.61, ICD10: Z79.01 Stable. 5. Bursitis of other bursa of right hip - ICD9: 726.5, ICD10: M70.71 - CONSULT TO PHYSICAL THERAPY 6. Major depressive disorder, recurrent episode, moderate (HCC) - ICD9: 296.32, ICD10: F33.1 - Follow up with mental health [facility]. 7. Generalized anxiety disorder - ICD9: 300.02, ICD10: F41.1 - See above. 8. Hyperlipidemia, unspecified hyperlipidemia type - ICD9: 272.4, ICD10: E78.5 - Controlled 9. Impaired fasting glucose - ICD9: 790.21, ICD10: R73.01 Stable. 10. Cervicalgia - ICD9: 723.1, ICD10: M54.[address] Kellogg. Have records sent here. Florian Gonzalez MD * Florian Gonzalez MD - 05/12/2023 10:27 AM EST Orion Dumont is a 72 year old male here for a Medicare wellness visit. Medicare Health Risk Assessment General Health Fair Exercise: Minutes/Day 0 min Exercise: Days/Week 0 days Alcohol: Daily Use Never Alcohol: Drinks/Day Patient does not drink Alcohol: 6 or more drinks Never Feel off balance No Concerns: Teeth/Dentures No Concerns: Sexual function No Troubled by feelings Anxious; Stressed; Angry; Irritable; Lonely; Isolated; Thoughts of hurting myself Frequency: Eating healthy diet Nearly every day ADLs requiring help None of the above Safety precautions in home/vehicle Yes Smoke, vape, chews tobacco No Difficulty hearing No Difficulty seeing No Current Providers Specialists: I have reviewed specialist-related care of the patient in the medical record. Current care team: Patient Care Team: Florian Gonzalez MD as PCP - General (Internal Medicine) Antonio Stahl, PAC - Urology. Quincy Mcpherson CNP- Psychiatry. Outside specialists seen: Leonides Baker MD- [facility] Toya Smith MD- [facility]. Jerry Kellogg DO- Sports Medicine ([facility]) Matt Marie MD- [facility]. Ke Pantoja MD- [facility] provider. Pelon Nascimento MD- Ophthalmology. Medical/Family history review Reviewed and updated problem list, medical/surgical/family/social history, medications, and allergies. Opioid use review Opioid Medications (last 90 days) Some values may be hidden. Unless noted otherwise, only the newest values recorded on each date aredisplayed. Opioid Medications acetaminophen-codeine (TYLENOL-COD #3) 300-30 mg per tablet Dose: TAKE 1 TABLET BY MOUTH EVERY 6-8 HOURS NEEDED FOR PAIN. (Patient taking differently:, Patient not taking as of 02/23/2023 9:22 AM)Starting date: 10/10/2022 (active) HYDROcodone-acetaminophen (NORCO) 5-325 mg per tablet Dose: 1 tablet EVERY 6 HOURS NEEDED (Patient taking differently:, Patient not taking as of 02/21/2023 9:15 AM) Starting date: 01/29/2022 (active) oxyCODONE-acetaminophen (PERCOCET) 5-325 mg tablet Dose: TAKE 1 TABLET BY MOUTH EVERY FOUR TO SIX HOURS NEEDED FOR PAIN MAX 4 PER DAY. (Patient taking differently:, Patient not taking as of 02/23/2023 9:16 AM, Patient not taking as of 02/21/2023 9:15 AM) Starting date: 09/15/2022 (active) Prescribed No opioid use on file in the last 90 days Does patient have risk factors for opioid abuse? No Pain overview Pain Scales: Verbal (Numeric Rating or Visual Analog Scale) Pain Level: 4 Pain Location: Hip-Right Description: Sore Duration Amount of Time: 2 Duration Units: Months Frequency: Intermittent Intervention/Comfort measure: Reposition Current pain concerns and treatment plan reviewed. Patient under the care of a specialist. Depression screening Depression Screening PHQ-2 Score PHQ-9 Score LANA-2 Total Score LANA-7 Total Score 05/17/2022 1 5 4 10 Depression screening tool completed and reviewed. Based on score and interview, patient is already diagnosed with depression. Screening tool discussed with patient, and I recommended continuing current plan of care. Cognitive screening Mini Cog Score: 5 Cognitive screening reviewed and no further action needed (score 3-5) Functional Observation Was the patient's Timed Up & Go test unsteady or ? 12 seconds? No Advance Care Planning Surrogate decision maker and/or advance care plan documented Measurements BP 118/74 Pulse 72 Resp 16 Ht 6' 1 (1.85m) Wt 215 lb (97.5kg) BMI 28.37 kg/(m^2). Additional screenings: Vision Screening Right eye - Without correction: 20/25 With correction: Left eye - Without correction: 20/20 With correction: Both eyes - Without correction: 20/20 With correction: Assessment/Plan Medicare annual wellness visit, subsequent (Z00.00) - Counseled on healthy diet and regular exercise - Fall avoidance information provided - Personalized prevention plan provided - Discussed need for and benefit of weight loss. BMI 28.37 kg/(m^2) documented in this encounterMemorial Health System11-16-2023 Miscellaneous Notes* Addendum Note - Enid Adams - 02/23/2023 10:28 AM ESTAddended by: ENID ADAMS on: 02/23/2023 10:28 AM Modules accepted: Orders documented in this encounter[facility]23 History of Present illness Narrative* Leonides Bakre MD - 02/23/2023 9:11 AM EST Orion Dumont is a 72 year old who presents today for Patient presents with: Cardiology Follow Up : Medication review. INTERVAl HPI PAST MEDICAL HISTORY Diagnosis Date Adhesive capsulitis of shoulder 05/21/2014 Adjustment disorder with depressed mood hosp 95' Arthritis Atrial fibrillation (HCC) 11/03/2009 s/p ablation, on coumadin, OFF now. 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 Currently chest pain free; However, there is a high chance of recurrence since treatment has been on hold. Giving him steroid might actually put him at more risk of re bleeding. NSAID'S notan option for now. Plan: Consider Colchicine. If patient is to be restarted on AC, Colchicine has DVT (deep venous thrombosis) (HCC) 01/12/2010 S/P IVC filter, occurred post-op, on anticoagulation (for a fib) Eating disorder, unspecified 07/01/2009 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 Essential hypertension, benign Fatty liver 11/03/2009 by us Gall stones, common bile duct 12/07/2013 Generalized anxiety disorder 07/01/2009 GI bleed 06/29/2012 Hyperlipidemia 08/25/2020 Impotence of organic origin Iron deficiency anemia 08/02/2012 Major depressive disorder, recurrent episode, moderate (HCC) 07/01/2009 Morbid obesity (HCC) 04/21/2009 stated BMI 51.1 Ht: 75 Wt: 410 lbs MSSA (methicillin susceptible Staphylococcus aureus) infection 07/03/2012 Hx: MSSA infection of serosal fluids collection in L chest wall. S/P I/D on 06/19. On IV oxacillin till and then dc'ed on 06/23 with a 10 day course of Dicloxacillin. 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 Plan: Monitor H&H Q8H, transfuse as necessary, keep Hb>8 Consult IR for further intervention Protonix gtt for now, will switch to protonix 40mg bid when Hb is stable after 48-72 salma UTI (lower urinary tract infection) Varicose veins 2010 PAST SURGICAL HISTORY Procedure Laterality Date APPENDECTOMY HX ARTHRP ACETBLR/PROX FEM PROSTC AGRFT/ALGRFT 1993 left BACK SURGERY HX CARDIOVERSION CHOLECYSTECTOMY 11/18/2013 COLONOSCOPY GEN ANES 04/20/2020 CYSTO BLADDER W/URETERAL CATHETERIZATION 01/30/2010 CYSTOSCOPY, RETROPYELOGRAM performed by RADHA OLIVAREZ at OR CYSTO W/INSERT URETERAL STENT 01/30/2010 CYSTOSCOPY, INSERTION STENT URETERAL J performed by RADHA OLIVAREZ at OR CYSTOURETHROSCOPY 06/16/2017 Cystoscopy DISKECTOMY, LUMBAR, SINGLE SP 1981 L4-5 EGD 04/20/2020 GASTRIC BYPASS HX 2008 w/ complications. JOINT REPLACEMENT HX NEPHROLITHOTOMY REMOVAL STAGE 1 05/02/2012 PAST SURGICAL HISTORY OF 1967 left hip pin PAST SURGICAL HISTORY OF 04/23/2012 heart surgery PAST SURGICAL HISTORY OF 06/04/2012 stitches for broken blood vesel in rectum REDUCE BOWEL OBSTRUCTION 06/24/2010 Performed by RAN REPAIR RETINAL DETACHMENT SCLERAL BUCKLING 10/2009 od Scleral Buckle REPAIR RETINAL DETACHMENT SCLERAL BUCKLING 08/05/2013 SB (Scleral Buckle)/ cyro os REVISE MEDIAN N/CARPAL TUNNEL SURG Left 10/2020 SESAMOIDECTOMY, THUMB/FINGER Left 06/30/2022 Left Thumb arthroplasty VITRECTOMY MECHANICAL PARS PLANA 09/03/2013 PPV / EL / gas OS FAMILY HISTORY Problem Relation Age of Onset Ischemic Heart Disease Father Diabetes Mother other (Other) Mother Diabetes Sister Cataract Sister Detached Retina Sister SOCIAL HISTORY Social History Tobacco Use Smoking status: Never Smokeless tobacco: Never Vaping Use Vaping Use: Never used Substance Use Topics Alcohol use: No Drug use: No Rivaroxaban, Sulfa (Sulfonamide Antibiotics), Adhesive Tape (Rosins), Wool, Wool, and Diclofenac Sodium Current Outpatient Medications Medication Sig furosemide (LASIX) 20 mg tablet Take 1 tablet by mouth once daily for [address] (PROTONIX) 40 mg tablet Take 1 tablet by mouth daily before breakfast. Take on empty stomach, 1/2 hr before meal. atorvastatin (LIPITOR) 20 mg tablet Take 1 tablet by mouth once daily. sertraline (ZOLOFT) 100 mg tablet Take 1 tablet by mouth once daily. digoxin (LANOXIN) 250 mcg (0.25 mg) tablet Take 1 tablet by mouth once daily. fludrocortisone (FLORINEF) 0.1 mg tablet Take 1 tablet by mouth once daily. bisoprolol (ZEBETA) 5 mg tablet Take 1 tablet by mouth once daily. oxybutynin XL (DITROPAN XL) 5 mg 24 hr tablet TAKE 1 TABLET BY MOUTH EVERY DAY busPIRone (BUSPAR) 15 mg tablet Take 1 tablet by mouth twice daily. acetaminophen-codeine (TYLENOL-COD #3) 300-30 mg per tablet TAKE 1 TABLET BY MOUTH EVERY 6-8 HOURS NEEDED FOR PAIN. oxyCODONE-acetaminophen (PERCOCET) 5-325 mg tablet TAKE 1 TABLET BY MOUTH EVERY FOUR TO SIX HOURS NEEDED FOR PAIN MAX 4 PER DAY. (Patient not taking: Reported on 02/21/2023) HYDROcodone-acetaminophen (NORCO) 5-325 mg per tablet Take 1 tablet by mouth every 6 hours as needed for pain. (Patient not taking: Reported on 02/21/2023) methocarbamol (ROBAXIN) 500 mg tablet TAKE 1 TABLET BY MOUTH EVERY EIGHT HOURS NEEDED FOR MUSCLESPASMS (Patient not taking: Reported on 02/21/2023) lamoTRIgine (LAMICTAL) 100 mg tablet TAKE 1 TABLET BY MOUTH EVERY DAY apixaban (ELIQUIS) 5 mg tab(s) Take 1 tablet by mouth twice daily. cholecalciferol (VITAMIN D3) 50 mcg (2,000 unit) tablet Take 1 tablet by mouth daily with dinner. calcium citrate-vitamin D3 (CITRACAL PLUS D) 315 mg-5 mcg (200 unit) tab Take 1 tablet by mouth twice daily with meals. With each meal. [id number]-Fish Oil [id number] mr-rn-[id number]-mcg cap Take 600 mg by mouth once daily. (Patient taking differently: Take 600 mg by mouth two times a day.) pyridoxine (VITAMIN B-6) 100 mg tablet Take 2 tablets by mouth twice daily. docusate sodium 100 mg capsule Take 1 capsule by mouth twice daily as needed for Constipation. No current facility-administered medications for this visit. Specialty Problems Cardiology Problems Varicose veins of both legs with edema Orthostatic hypotension Atrial fibrillation with RVR (HCC) Hyperlipidemia Chronic combined systolic and diastolic congestive heart failure (HCC) LABS: Component Latest Ref Rng & Units 12/09/2022 Protein, Total 6.3 - 8.0 g/dL 6.2 (L) Albumin 3.9 - 4.9 g/dL 4.4 Calcium 8.5 - 10.2 mg/dL 9.5 Bilirubin, Total 0.2 - 1.3 mg/dL 0.4 Alkaline Phosphatase 38 - 113 U/L 51 AST 14 - 40 U/L 54 (H) ALT 10 - 54 U/L 64 (H) Glucose 74 - 99 mg/dL 123 (H) BUN 9 - 24 mg/dL 20 Creatinine 0.73 - 1.22 mg/dL 1.17 Sodium 136 - 144 mmol/L 137 Potassium 3.7 - 5.1 mmol/L 5.1 Chloride 97 - 105 mmol/L 103 CO2 22 - 30 mmol/L 25 Anion Gap 9 - 18 mmol/L 9 eGFR >=60 mL/min/1.73m 67 WBC 3.70 - 11.00 k/uL 7.47 RBC 4.20 - 6.00 m/uL 4.57 Hemoglobin 13.0 - 17.0 g/dL 14.3 Hematocrit 39.0 - 51.0 % 44.2 MCV 80.0 - 100.0 fL 96.7 MCH 26.0 - 34.0 pg 31.3 MCHC 30.5 - 36.0 g/dL 32.4 RDW-CV 11.5 - 15.0 % 14.7 Platelet Count 150 - 400 k/uL 219 MPV 9.0 - 12.7 fL 11.8 Absolute nRBC <0.01 k/uL <0.01 WSR 0 - 15 mm/hr 2 CRP <0.9 mg/dL <0.3 CARDIAC TESTING: No recent cardiac testing. Last 3 Encounter BP Readings: Date: BP: 02/22/2023 133/73 02/21/2023 112/70 01/31/2023 100/66 Last 3 Encounter Pulse Readings: Date: Pulse: 02/22/2023 81 02/21/2023 90 01/31/2023 76 Last 3 Encounter Wt Readings: Date: Wt: 02/22/2023 98 kg (216 lb 0.8 oz) 02/21/2023 96.5 kg (212 lb 12.8 oz) 01/31/2023 98 kg (216 lb) PHYSICAL EXAMINATION: There were no vitals taken for this visit. There is no height or weight on file to calculate BMI. GENERAL: Alert, oriented., Well appearing. No jaundice, anemia, clubbing, or cyanosis. ENT:Hearing normal, no speech or swallowing difficulties. No epistaxix NECK: No JVD, masses, or thyromegaly. Good carotid upstrokes. No carotid bruit. No lymphadenopathy.Moderately severe constant cervical spinal pain is present from C3 to C5/6 CARDIAC: Regular rhythm. Normal S1 and S2. No murmur, rub or gallop. No parasternal heave or thrill. [place] not displaced. CHEST: Chest clear to auscultation. ABDOMEN: Soft, nontender, with no obvious organomegaly or masses. No epigastric bruit. EXTREMITIES :Normal, Normal pulses bilaterally., No Edema, and No calf tenderness SKIN: Warm peripheries, no rash. NEURO: Awake, alert and oriented x 3, Cranial nerves II-XII grossly intact, Reflexes symmetrical, Normal gait, and No involuntary motions ASSESSMENT AND PLAN Patient is doing well from the cardiac standpoint. He has chronic atrial fibrillation with a controlled ventricular rate. His ejection fraction has generally been around 50%, we will repeated this year. Clinically there is no evidence of heart failure, no new murmurs. He has had chest pain's in thepast but catheterization has not shown significant coronary disease. No evidence of new ischemia either by EKG or clinically. His main complaint was that of severe neck discomfort, unrelieved by local therapies. He may need cervical spinal injections, referred to Dr. Davi Heller at [place]. He can try local analgesic creamsmeanwhile. Other than a follow- up echo to check on his ejection fraction nothing further needs to be done cardiac vargas. He also has occasional allergic reactions, he takes all his pills in the morning and its not clear as to which one is causing the reaction, he will try discontinuing them one by one for 2 or 3 days to try to find the culprit agent. Leonides Baker MD documented in this encounter[facility]11-16-2023 Nurse Note* Chery Noriega - 02/23/2023 9:11 AM EST Orion presents today for Routine visit.. Medication Refills needed today: No Pharmacy has been captured? No Chery Noriega documented in this encounterMem[facility]11-15-2023 History and physical note * Kassie Ruiz MD - 02/22/2023 11:15 AM EST UPDATED PROCEDURAL SEDATION HISTORY AND PHYSICAL EXAMINATION SERVICE DATE: 02/22/2023 SERVICE TIME: 9:15 PHYSICAL EXAM MUST BE COMPLETED ON ADMISSION PROCEDURE: colonoscopy, possible biopsies Procedure Indications: screening for colon cancer The History and Physical (completed in the past 30 days) has been reviewed and the patient has beenexamined. The contents accurately reflect the patient's condition with the following additions or revisions since the H&P was completed. ASA Class: ASA Class:: Patient with severe systemic disease Examination indicates no changes. AIRWAY: Airway Visualization of Uvula: Yes Mouth opening greater than 2 fingerbreadths: Yes Neck Full Range of Motion: Yes LUNGS: Lungs clear to auscultation CARDIAC: Regular rhythm,Regular rate Provisional Diagnosis/Treatment Plan: colonoscopy, possible biopsies SEDATION GOAL: Moderate This H&P can be found in the Electronic Medical Record . SIGNATURE: Kassie Ruiz MD PATIENT NAME: Orion Dumont DATE: February 22, 2023 TIME: 9:18 AM Source Note - Kassie Ruiz MD - 02/22/2023 11:15 AM EST HISTORY AND PHYSICAL Orion Dumont 1950 REFERRING PHYSICIAN: Florian Gonzalez MD CHIEF COMPLAINT: No chief complaint on file. HPI: The patient is a 72 year old male presents for screening for colon cancer via colonoscopy - hepresents via Open Access, this was ordered by Dr. Gonzalez. He presents today with complaint of severe neck pain - he states that he has bulging disks - I have tried to review his records and this complaint was treated by outside facility for which there are no records available in [facility]. The patient denies blood in stools, denies abdominal pain, and denies changes in bowel habits. The patient notes no colon cancer in immediate family. 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 Currently chest pain free; However, there is a high chance of recurrence since treatment has been on hold. Giving him steroid might actually put him at more risk of re bleeding. NSAID'S notan option for now. Plan: Consider Colchicine. If patient is to be restarted on AC, Colchicine has DVT (deep venous thrombosis) (HCC) 01/12/2010 S/P IVC filter, occurred post-op, on anticoagulation (for a fib) Eating disorder, unspecified 07/01/2009 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 Essential hypertension, benign Fatty liver 11/03/2009 by us Gall stones, common bile duct 12/07/2013 Generalized anxiety disorder 07/01/2009 GI bleed 06/29/2012 Hyperlipidemia 08/25/2020 Impotence of organic origin Iron deficiency anemia 08/02/2012 Major depressive disorder, recurrent episode, moderate (HCC) 07/01/2009 Morbid obesity (HCC) 04/21/2009 stated BMI 51.1 Ht: 75 Wt: 410 lbs MSSA (methicillin susceptible Staphylococcus aureus) infection 07/03/2012 Hx: MSSA infection of serosal fluids collection in L chest wall. S/P I/D on 06/19. On IV oxacillin till and then dc'ed on 06/23 with a 10 day course of Dicloxacillin. 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 Plan: Monitor H&H Q8H, transfuse as necessary, keep Hb>8 Consult IR for further intervention Protonix gtt for now, will switch to protonix 40mg bid when Hb is stable after 48-72 salma UTI (lower urinary tract infection) Varicose veins 2010 PAST SURGICAL HISTORY Procedure Laterality Date APPENDECTOMY HX ARTHRP ACETBLR/PROX FEM PROSTC AGRFT/ALGRFT 1993 left BACK SURGERY HX CARDIOVERSION CHOLECYSTECTOMY 11/18/2013 COLONOSCOPY GEN ANES 04/20/2020 CYSTO BLADDER W/URETERAL CATHETERIZATION 01/30/2010 CYSTOSCOPY, RETROPYELOGRAM performed by RADHA OLIVAREZ at OR CYSTO W/INSERT URETERAL STENT 01/30/2010 CYSTOSCOPY, INSERTION STENT URETERAL J performed by RADHA OLIVAREZ at OR CYSTOURETHROSCOPY 06/16/2017 Cystoscopy DISKECTOMY, LUMBAR, SINGLE SP 1981 L4-5 EGD 04/20/2020 GASTRIC BYPASS HX 2008 w/ complications. JOINT REPLACEMENT HX NEPHROLITHOTOMY REMOVAL STAGE 1 05/02/2012 PAST SURGICAL HISTORY OF 1967 left hip pin PAST SURGICAL HISTORY OF 04/23/2012 heart surgery PAST SURGICAL HISTORY OF 06/04/2012 stitches for broken blood vesel in rectum REDUCE BOWEL OBSTRUCTION 06/24/2010 Performed by RAN REPAIR RETINAL DETACHMENT SCLERAL BUCKLING 10/2009 od Scleral Buckle REPAIR RETINAL DETACHMENT SCLERAL BUCKLING 08/05/2013 SB (Scleral Buckle)/ cyro os REVISE MEDIAN N/CARPAL TUNNEL SURG Left 10/2020 SESAMOIDECTOMY, THUMB/FINGER Left 06/30/2022 Left Thumb arthroplasty VITRECTOMY MECHANICAL PARS PLANA 09/03/2013 PPV / EL / gas OS Current Outpatient Medications Medication Sig pantoprazole DR (PROTONIX) 40 mg tablet Take 1 tablet by mouth daily before breakfast. Take on empty stomach, 1/2 hr before meal. atorvastatin (LIPITOR) 20 mg tablet Take 1 tablet by mouth once daily. sertraline (ZOLOFT) 100 mg tablet Take 1 tablet by mouth once daily. digoxin (LANOXIN) 250 mcg (0.25 mg) tablet Take 1 tablet by mouth once daily. fludrocortisone (FLORINEF) 0.1 mg tablet Take 1 tablet by mouth once daily. bisoprolol (ZEBETA) 5 mg tablet Take 1 tablet by mouth once daily. oxybutynin XL (DITROPAN XL) 5 mg 24 hr tablet TAKE 1 TABLET BY MOUTH EVERY DAY busPIRone (BUSPAR) 15 mg tablet Take 1 tablet by mouth twice daily. lamoTRIgine (LAMICTAL) 100 mg tablet TAKE 1 TABLET BY MOUTH EVERY DAY cholecalciferol (VITAMIN D3) 50 mcg (2,000 unit) tablet Take 1 tablet by mouth daily with dinner. calcium citrate-vitamin D3 (CITRACAL PLUS D) 315 mg-5 mcg (200 unit) tab Take 1 tablet by mouth twice daily with meals. With each meal. [id number]-FA-Fish Oil [id number] qv-tn-bcj-mcg cap Take 600 mg by mouth once daily. (Patient taking differently: Take 600 mg by mouth two times a day.) pyridoxine (VITAMIN B-6) 100 mg tablet Take 2 tablets by mouth twice daily. docusate sodium 100 mg capsule Take 1 capsule by mouth twice daily as needed for Constipation. furosemide (LASIX) 20 mg tablet Take 1 tablet by mouth once daily for 7 days. acetaminophen-codeine (TYLENOL-COD #3) 300-30 mg per tablet TAKE 1 TABLET BY MOUTH EVERY 6-8 HOURS NEEDED FOR PAIN. oxyCODONE-acetaminophen (PERCOCET) 5-325 mg tablet TAKE 1 TABLET BY MOUTH EVERY FOUR TO SIX HOURS NEEDED FOR PAIN MAX 4 PER DAY. (Patient not taking: Reported on 02/21/2023) HYDROcodone-acetaminophen (NORCO) 5-325 mg per tablet Take 1 tablet by mouth every 6 hours as needed for pain. (Patient not taking: Reported on 02/21/2023) methocarbamol (ROBAXIN) 500 mg tablet TAKE 1 TABLET BY MOUTH EVERY EIGHT HOURS NEEDED FOR MUSCLESPASMS (Patient not taking: Reported on 02/21/2023) apixaban (ELIQUIS) 5 mg tab(s) Take 1 tablet by mouth twice daily. ALLERGIES: Rivaroxaban, Sulfa (Sulfonamide Antibiotics), Adhesive Tape (Rosins), Wool, Wool, and Diclofenac Sodium PERSONAL HISTORY: Social History Tobacco Use Smoking status: Never Smokeless tobacco: Never Vaping Use Vaping Use: Never used Substance Use Topics Alcohol use: No Drug use: No FAMILY HISTORY Problem Relation Age of Onset Ischemic Heart Disease Father Diabetes Mother other (Other) Mother Diabetes Sister Cataract Sister Detached Retina Sister REVIEW OF SYSTEMS: Complaint of neck pain, but denies numbness/tingling of extremities Denies fevers Denies chest pain Denies shortness of breath PHYSICAL EXAMINATION: General: The patient is 72 year old male, well nourished, well hydrated in no acute distress. The patient is oriented to time, place, and person. VITALS: Blood pressure 147/75, pulse 68, temperature 36.1 C (96.9 F), temperature source Temporal Artery, resp. rate 16, weight 98 kg (216 lb 0.8 oz), SpO2 97 %. Body mass index is 28.5 kg/m . Head - Normocephalic. EOM intact with sclera clear. Mouth with mucus membranes moist. Neck - supple with no jugular venous distention noted. Trachea is midline. Lungs - clear to auscultation. Normal breath sounds. No rales/rhonchi/wheezing noted. Heart - normal heart sounds. No rubs/clicks/murmurs noted. Regular rate. Abdomen - soft and benign. Extremities - no pitting edema noted. Skin - Normal skin integrity. Neurological - non focal Psych - calm and appropriate Impression: screening for colon cancer, Discussion/Plan/Recommendations: I have discussed the above with the patient. I have offered colonoscopy , possible biopsies I have explained the procedure to the patient. I have counseled the patient as to the risks of the procedure, including but not limited to: infection, bleeding, injury to any intrabdominal organs such as liver/spleen, perforation of the GI tract,inability to complete the procedure, complications of anesthesia, etc. - the patient understands. This patient presents for endoscopy via the Open Access system. This patient was not counseled appropriately to this procedure(s) as I have only encountered the patient on the day of presentation. Also, no appropriate health care provider has properly screened this patient for anesthesia. The patient was not counseled as to the options of IV conscious sedation and MAC. Also, the facilities at this location are limited. I am the only available ACLS-trained provider in this building. The closest [facility] is about an hour away. I have discussed this with the patient. The patienthas multiple medical morbidities (concern for neck problems) that may preclude adequate anesthesia.I have offered continuing with the procedure. However, I have counseled the patient that if there are any adverse changes, such as in vital signs, discomfort of the patient, etc., the procedure will be aborted. The patient acknowledges the above. The patient wishes to proceed. I have answered all questions to the patient s satisfaction and the patient has no further questions. . Kassie Ruiz MD * Kassie Ruiz MD - 02/22/2023 11:15 AM EST HISTORY AND PHYSICAL Orion Dumont 1950 REFERRING PHYSICIAN: Florian Gonzalez MD CHIEF COMPLAINT: No chief complaint on file. HPI: The patient is a 72 year old male presents for screening for colon cancer via colonoscopy - hepresents via Open Access, this was ordered by Dr. Gonzalez. He presents today with complaint of severe neck pain - he states that he has bulging disks - I have tried to review his records and this complaint was treated by outside facility for which there are no records available in [facility]. The patient denies blood in stools, denies abdominal pain, and denies changes in bowel habits. The patient notes no colon cancer in immediate family. 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 Currently chest pain free; However, there is a high chance of recurrence since treatment has been on hold. Giving him steroid might actually put him at more risk of re bleeding. NSAID'S notan option for now. Plan: Consider Colchicine. If patient is to be restarted on AC, Colchicine has DVT (deep venous thrombosis) (HCC) 01/12/2010 S/P IVC filter, occurred post-op, on anticoagulation (for a fib) Eating disorder, unspecified 07/01/2009 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 Essential hypertension, benign Fatty liver 11/03/2009 by us Gall stones, common bile duct 12/07/2013 Generalized anxiety disorder 07/01/2009 GI bleed 06/29/2012 Hyperlipidemia 08/25/2020 Impotence of organic origin Iron deficiency anemia 08/02/2012 Major depressive disorder, recurrent episode, moderate (HCC) 07/01/2009 Morbid obesity (HCC) 04/21/2009 stated BMI 51.1 Ht: 75 Wt: 410 lbs MSSA (methicillin susceptible Staphylococcus aureus) infection 07/03/2012 Hx: MSSA infection of serosal fluids collection in L chest wall. S/P I/D on 06/19. On IV oxacillin till and then dc'ed on 06/23 with a 10 day course of Dicloxacillin. 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 Plan: Monitor H&H Q8H, transfuse as necessary, keep Hb>8 Consult IR for further intervention Protonix gtt for now, will switch to protonix 40mg bid when Hb is stable after 48-72 salma UTI (lower urinary tract infection) Varicose veins 2010 PAST SURGICAL HISTORY Procedure Laterality Date APPENDECTOMY HX ARTHRP ACETBLR/PROX FEM PROSTC AGRFT/ALGRFT 1993 left BACK SURGERY HX CARDIOVERSION CHOLECYSTECTOMY 11/18/2013 COLONOSCOPY GEN ANES 04/20/2020 CYSTO BLADDER W/URETERAL CATHETERIZATION 01/30/2010 CYSTOSCOPY, RETROPYELOGRAM performed by RADHA OLIVAREZ at OR CYSTO W/INSERT URETERAL STENT 01/30/2010 CYSTOSCOPY, INSERTION STENT URETERAL J performed by RADHA OLIVAREZ at OR CYSTOURETHROSCOPY 06/16/2017 Cystoscopy DISKECTOMY, LUMBAR, SINGLE SP 1982 L4-5 EGD 04/20/2020 GASTRIC BYPASS HX 2008 w/ complications. JOINT REPLACEMENT HX NEPHROLITHOTOMY REMOVAL STAGE 1 05/02/2012 PAST SURGICAL HISTORY OF 1967 left hip pin PAST SURGICAL HISTORY OF 04/23/2012 heart surgery PAST SURGICAL HISTORY OF 06/04/2012 stitches for broken blood vesel in rectum REDUCE BOWEL OBSTRUCTION 06/24/2010 Performed by RAN REPAIR RETINAL DETACHMENT SCLERAL BUCKLING 10/2009 od Scleral Buckle REPAIR RETINAL DETACHMENT SCLERAL BUCKLING 08/05/2013 SB (Scleral Buckle)/ cyro os REVISE MEDIAN N/CARPAL TUNNEL SURG Left 10/2020 SESAMOIDECTOMY, THUMB/FINGER Left 06/30/2022 Left Thumb arthroplasty VITRECTOMY MECHANICAL PARS PLANA 09/03/2013 PPV / EL / gas OS Current Outpatient Medications Medication Sig pantoprazole DR (PROTONIX) 40 mg tablet Take 1 tablet by mouth daily before breakfast. Take on empty stomach, 1/2 hr before meal. atorvastatin (LIPITOR) 20 mg tablet Take 1 tablet by mouth once daily. sertraline (ZOLOFT) 100 mg tablet Take 1 tablet by mouth once daily. digoxin (LANOXIN) 250 mcg (0.25 mg) tablet Take 1 tablet by mouth once daily. fludrocortisone (FLORINEF) 0.1 mg tablet Take 1 tablet by mouth once daily. bisoprolol (ZEBETA) 5 mg tablet Take 1 tablet by mouth once daily. oxybutynin XL (DITROPAN XL) 5 mg 24 hr tablet TAKE 1 TABLET BY MOUTH EVERY DAY busPIRone (BUSPAR) 15 mg tablet Take 1 tablet by mouth twice daily. lamoTRIgine (LAMICTAL) 100 mg tablet TAKE 1 TABLET BY MOUTH EVERY DAY cholecalciferol (VITAMIN D3) 50 mcg (2,000 unit) tablet Take 1 tablet by mouth daily with dinner. calcium citrate-vitamin D3 (CITRACAL PLUS D) 315 mg-5 mcg (200 unit) tab Take 1 tablet by mouth twice daily with meals. With each meal. Svmen3-[id number]-E-FA-Fish Oil [id number] rg-io-ddg-mcg cap Take 600 mg by mouth once daily. (Patient taking differently: Take 600 mg by mouth two times a day.) pyridoxine (VITAMIN B-6) 100 mg tablet Take 2 tablets by mouth twice daily. docusate sodium 100 mg capsule Take 1 capsule by mouth twice daily as needed for Constipation. furosemide (LASIX) 20 mg tablet Take 1 tablet by mouth once daily for 7 days. acetaminophen-codeine (TYLENOL-COD #3) 300-30 mg per tablet TAKE 1 TABLET BY MOUTH EVERY 6-8 HOURS NEEDED FOR PAIN. oxyCODONE-acetaminophen (PERCOCET) 5-325 mg tablet TAKE 1 TABLET BY MOUTH EVERY FOUR TO SIX HOURS NEEDED FOR PAIN MAX 4 PER DAY. (Patient not taking: Reported on 02/21/2023) HYDROcodone-acetaminophen (NORCO) 5-325 mg per tablet Take 1 tablet by mouth every 6 hours as needed for pain. (Patient not taking: Reported on 02/21/2023) methocarbamol (ROBAXIN) 500 mg tablet TAKE 1 TABLET BY MOUTH EVERY EIGHT HOURS NEEDED FOR MUSCLESPASMS (Patient not taking: Reported on 02/21/2023) apixaban (ELIQUIS) 5 mg tab(s) Take 1 tablet by mouth twice daily. ALLERGIES: Rivaroxaban, Sulfa (Sulfonamide Antibiotics), Adhesive Tape (Rosins), Wool, Wool, and Diclofenac Sodium PERSONAL HISTORY: Social History Tobacco Use Smoking status: Never Smokeless tobacco: Never Vaping Use Vaping Use: Never used Substance Use Topics Alcohol use: No Drug use: No FAMILY HISTORY Problem Relation Age of Onset Ischemic Heart Disease Father Diabetes Mother other (Other) Mother Diabetes Sister Cataract Sister Detached Retina Sister REVIEW OF SYSTEMS: Complaint of neck pain, but denies numbness/tingling of extremities Denies fevers Denies chest pain Denies shortness of breath PHYSICAL EXAMINATION: General: The patient is 72 year old male, well nourished, well hydrated in no acute distress. The patient is oriented to time, place, and person. VITALS: Blood pressure 147/75, pulse 68, temperature 36.1 C (96.9 F), temperature source Temporal Artery, resp. rate 16, weight 98 kg (216 lb 0.8 oz), SpO2 97 %. Body mass index is 28.5 kg/m . Head - Normocephalic. EOM intact with sclera clear. Mouth with mucus membranes moist. Neck - supple with no jugular venous distention noted. Trachea is midline. Lungs - clear to auscultation. Normal breath sounds. No rales/rhonchi/wheezing noted. Heart - normal heart sounds. No rubs/clicks/murmurs noted. Regular rate. Abdomen - soft and benign. Extremities - no pitting edema noted. Skin - Normal skin integrity. Neurological - non focal Psych - calm and appropriate Impression: screening for colon cancer, Discussion/Plan/Recommendations: I have discussed the above with the patient. I have offered colonoscopy , possible biopsies I have explained the procedure to the patient. I have counseled the patient as to the risks of the procedure, including but not limited to: infection, bleeding, injury to any intrabdominal organs such as liver/spleen, perforation of the GI tract,inability to complete the procedure, complications of anesthesia, etc. - the patient understands. This patient presents for endoscopy via the Open Access system. This patient was not counseled appropriately to this procedure(s) as I have only encountered the patient on the day of presentation. Also, no appropriate health care provider has properly screened this patient for anesthesia. The patient was not counseled as to the options of IV conscious sedation and MAC. Also, the facilities at this location are limited. I am the only available ACLS-trained provider in this building. The closest [facility] is about an hour away. I have discussed this with the patient. The patienthas multiple medical morbidities (concern for neck problems) that may preclude adequate anesthesia.I have offered continuing with the procedure. However, I have counseled the patient that if there are any adverse changes, such as in vital signs, discomfort of the patient, etc., the procedure will be aborted. The patient acknowledges the above. The patient wishes to proceed. I have answered all questions to the patient s satisfaction and the patient has no further questions. . Kassie Ruiz MD documented in this encounterMem[facility] System11-15-2023 Nurse Note* Pao Berman RN - 02/22/2023 9:47 AM EST Patient received in phase II via cart in left lateral position, eyes open upon arrival, alert to self and event, skin warm and dry, respirations regular and unlabored, abdomen soft and non distended.Denies abdominal pain or cramping. Resting comfortably on left side. documented in this encounterMemorial Health System11-14-2023 History of Present illness Narrative* Adin Pleitez LPN - 02/21/2023 9:09 AM EST Verified name and date of . CC Post Void Residual HPI: Orion Dumont is a 72 year old male. The patient is here now for an appointment with Antonio Stahl, BEATRIS, [place], PA-COV. Procedure: Explained procedure to patient and verbalizes understanding. Performed a PVR. Patient urinated and instructed to empty bladder as much as possible just prior to having PVR done using bladder ultrasound scanner. Results of scan: 0 mL The patient tolerated the procedure well. Plan: Appointment with Antonio. * Antonio Stahl PA-C - 02/21/2023 8:54 AM EST Images from the original note were not included. [facility] ESTABLISHED PATIENT CLINIC NOTE Some elements copied from his previous note, which have been updated where appropriate, and all reflect current medical decision making from date of this visit. NAME: Orion Dumont CHIEF COMPLAINT: BPH and Balanitis HISTORY OF PRESENT ILLNESS: Orion Dumont is a 72 year old male following up for BPH with LUTS , Balanitis and urgency Ditropan 5 mg low dose for urgency, working well and has refills Lotrisone cream helped with balanitis Hx of [place] PVP with Dr. Moreno in 2018 PVR remains at 0 ml Other symptoms: ED - no LABS: Hematocrit (%) Date Value 12/09/2022 44.2 05/10/2022 46.8 05/05/2021 43.1 11/20/2020 47.1 09/18/2020 44.4 03/20/2020 39.2 PSA (ng/mL) Date Value 05/18/2017 0.19 05/15/2003 0.54 PSA Screening (ng/mL) Date Value 04/15/2013 0.79 02/18/2010 0.52 Testosterone (ng/dL) Date Value 01/14/2014 961 09/24/2013 629 PSA (ng/mL) Date Value 05/18/2017 0.19 05/15/2003 0.54 PSA Screening (ng/mL) Date Value 04/15/2013 0.79 02/18/2010 0.52 Creatinine Date Value Ref Range Status 12/09/2022 1.17 0.73 - 1.22 mg/dL Final 05/10/2022 0.93 0.73 - 1.22 mg/dL Final 05/05/2021 1.16 0.73 - 1.22 mg/dL Final 04/12/2021 1.01 0.73 - 1.22 mg/dL Final MEDICATIONS: pantoprazole DR (PROTONIX) 40 mg tablet Take 1 tablet by mouth daily before breakfast. Take on empty stomach, 1/2 hr before meal. atorvastatin (LIPITOR) 20 mg tablet Take 1 tablet by mouth once daily. sertraline (ZOLOFT) 100 mg tablet Take 1 tablet by mouth once daily. digoxin (LANOXIN) 250 mcg (0.25 mg) tablet Take 1 tablet by mouth once daily. fludrocortisone (FLORINEF) 0.1 mg tablet Take 1 tablet by mouth once daily. bisoprolol (ZEBETA) 5 mg tablet Take 1 tablet by mouth once daily. oxybutynin XL (DITROPAN XL) 5 mg 24 hr tablet TAKE 1 TABLET BY MOUTH EVERY DAY busPIRone (BUSPAR) 15 mg tablet Take 1 tablet by mouth twice daily. acetaminophen-codeine (TYLENOL-COD #3) 300-30 mg per tablet TAKE 1 TABLET BY MOUTH EVERY 6-8 HOURS NEEDED FOR PAIN. lamoTRIgine (LAMICTAL) 100 mg tablet TAKE 1 TABLET BY MOUTH EVERY DAY apixaban (ELIQUIS) 5 mg tab(s) Take 1 tablet by mouth twice daily. cholecalciferol (VITAMIN D3) 50 mcg (2,000 unit) tablet Take 1 tablet by mouth daily with dinner. calcium citrate-vitamin D3 (CITRACAL PLUS D) 315 mg-5 mcg (200 unit) tab Take 1 tablet by mouth twice daily with meals. With each meal. Ragcm3-MaiF4-W28-E-FA-Fish Oil [id number] td-lk-skf-mcg cap Take 600 mg by mouth once daily. (Patient taking differently: Take 600 mg by mouth two times a day.) pyridoxine (VITAMIN B-6) 100 mg tablet Take 2 tablets by mouth twice daily. docusate sodium 100 mg capsule Take 1 capsule by mouth twice daily as needed for Constipation. furosemide (LASIX) 20 mg tablet Take 1 tablet by mouth once daily for 7 days. oxyCODONE-acetaminophen (PERCOCET) 5-325 mg tablet TAKE 1 TABLET BY MOUTH EVERY FOUR TO SIX HOURS NEEDED FOR PAIN MAX 4 PER DAY. (Patient not taking: Reported on 02/21/2023) HYDROcodone-acetaminophen (NORCO) 5-325 mg per tablet Take 1 tablet by mouth every 6 hours as needed for pain. 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 Currently chest pain free; However, there is a high chance of recurrence since treatment has been on hold. Giving him steroid might actually put him at more risk of re bleeding. NSAID'S notan option for now. Plan: Consider Colchicine. If patient is to be restarted on AC, Colchicine has DVT (deep venous thrombosis) (HCC) 01/12/2010 S/P IVC filter, occurred post-op, on anticoagulation (for a fib) Eating disorder, unspecified 07/01/2009 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 Essential hypertension, benign Fatty liver 11/03/2009 by us Gall stones, common bile duct 12/07/2013 Generalized anxiety disorder 07/01/2009 GI bleed 06/29/2012 Hyperlipidemia 08/25/2020 Impotence of organic origin Iron deficiency anemia 08/02/2012 Major depressive disorder, recurrent episode, moderate (HCC) 07/01/2009 Morbid obesity (HCC) 04/21/2009 stated BMI 51.1 Ht: 75 Wt: 410 lbs MSSA (methicillin susceptible Staphylococcus aureus) infection 07/03/2012 Hx: MSSA infection of serosal fluids collection in L chest wall. S/P I/D on 06/19. On IV oxacillin till and then dc'ed on 06/23 with a 10 day course of Dicloxacillin. 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 Currently chest pain free; Talked with cardiology - said no need for treatment is patientis treatment free Plan: Continue to monitor Postsurgical dumping syndrome 08/30/2012 Pulmonary embolism (HCC) 03/01/2010 Retinal detachment OD Syncope 11/02/2018 Torn rotator cuff Upper GI bleed 07/03/2012 Hx: UGIB presenting to OSH on 06/29 with Melanotic stool; EGD showed jejunal pouch ulcers and dieulafoy lesion which were clipped and injected Given IV PPI Assessment: UGI 2/2 to Dieulafoy and NSAID induced ulcers. Plan: Monitor H&H Q8H, transfuse as necessary, keep Hb>8 Consult IR for further intervention Protonix gtt for now, will switch to protonix 40mg bid when Hb is stable after 48-72 salma UTI (lower urinary tract infection) Varicose veins 2010 PAST SURGICAL HISTORY: PAST SURGICAL HISTORY Procedure Laterality Date ARTHRP ACETBLR/PROX FEM PROSTC AGRFT/ALGRFT 1993 left CARDIOVERSION CHOLECYSTECTOMY 11/18/2013 COLONOSCOPY GEN ANES 04/20/2020 CYSTO BLADDER W/URETERAL CATHETERIZATION 01/30/2010 CYSTOSCOPY, RETROPYELOGRAM performed by RADHA OLIVAREZ at OR CYSTO W/INSERT URETERAL STENT 01/30/2010 CYSTOSCOPY, INSERTION STENT URETERAL J performed by RADHA OLIVAREZ at OR CYSTOURETHROSCOPY 06/16/2017 Cystoscopy DISKECTOMY, LUMBAR, SINGLE SP 1982 L4-5 EGD 04/20/2020 GASTRIC BYPASS HX 2008 w/ complications. NEPHROLITHOTOMY REMOVAL STAGE 1 05/02/2012 PAST SURGICAL HISTORY OF 1967 left hip pin PAST SURGICAL HISTORY OF 04/23/2012 heart surgery PAST SURGICAL HISTORY OF 06/04/2012 stitches for broken blood vesel in rectum REDUCE BOWEL OBSTRUCTION 06/24/2010 Performed by RAN REPAIR RETINAL DETACHMENT SCLERAL BUCKLING 10/2009 od Scleral Buckle REPAIR RETINAL DETACHMENT SCLERAL BUCKLING 08/05/2013 SB (Scleral Buckle)/ cyro os REVISE MEDIAN N/CARPAL TUNNEL SURG Left 10/2020 SESAMOIDECTOMY, THUMB/FINGER Left 06/30/2022 Left Thumb arthroplasty VITRECTOMY MECHANICAL PARS PLANA 09/03/2013 PPV / EL / gas OS REVIEW OF SYSTEMS: GENERAL: No fever, chills, weight loss, or fatigue. All other systems reviewed and are negative PHYSICAL EXAMINATION: Blood pressure 112/70, pulse 90, temperature 36.9 C (98.4 F), temperature source Temporal, height 185.4 cm (6' 1), weight 96.5 kg (212 lb 12.8 oz), SpO2 97 %. GENERAL: WNL nutrition, no deformities, healthy appearing PROBLEM LIST REVIEW: Yes LABS: Results for orders placed or performed in visit on 02/21/23 UA DIP, URINE (POC) Result Value Ref Range GLUCOSE UA (POCT) Negative Negative mg/dL BILIRUBIN UA (POCT) Negative Negative KETONE UA (POCT) Negative Negative mg/dL SPECIFIC GRAVITY UA (POCT) 1.020 1.005 - 1.030 HEMOGLOBIN/BLOOD UA (POCT) Negative Negative PH UA (POCT) 6.0 4.5 - 8.0 PROTEIN UA (POCT) Negative Negative mg/dL UROBILINOGEN UA (POCT) 0.2 Normal E.U./dL NITRITE UA (POCT) Negative Negative LEUKOCYTES UA (POCT) Negative Negative COLOR UA (POCT) Dark yellow CLARITY UA (POCT) Slightly Cloudy *Note: Due to a large number of results and/or encounters for the requested time period, some results have not been displayed. A complete set of results can be found in Results Review. PROCEDURES: PVR: 0 ml IMAGING: IMPRESSION/PLAN: 71 year old male with 1. Urge incontinence of urine - ICD9: 788.31, ICD10: N39.41 (primary diagnosis) 2. Balanitis - ICD9: 607.1, ICD10: N48.1 > Lotrisone as nned for balanitis > Continue Ditropan 5 mg - refilled > 1 year Appt w/ B. BEATRIS Stahl MT, PA-C for annual follow-up and refills. BEATRIS Jerome MT, PA-C documented in this encounterMem[facility] Health System11-13-2023 Telephone encounter Note * Telephone Encounter - Shawnee Bryant - 02/20/2023 8:15 AM EST Contacted patient in regards to message below. Patient aware to hold Eliquis starting today. [facility] Miscellaneous Notes* Telephone Encounter - Shawnee Bryant - 02/20/2023 8:15 AM EST Contacted patient in regards to message below. Patient aware to hold Eliquis starting today. Shawnee Bryant [facility] * Telephone Encounter - Florian Gonzalez MD - 02/17/2023 12:42 PM EST I agree with cardiology recommendation. * Telephone Encounter - Shawnee Bryant - 02/17/2023 9:11 AM EST Patient is Open Access and a fax was sent to office from Cardiology Dr. Leonides Baker in regards to clearance for colonoscopy on 02/22/[address] Ruiz Fax states patient is clear to proceed and to hold Eliquis 2 days prior to procedure Please review and advise Fax in scanned doc Shawnee Bryant [facility] documented in this encounterMemorial [facility] System11-10-2023 Telephone encounter Note * Telephone Encounter - Florian Gonzalez MD - 02/17/2023 12:42 PM EST I agree with cardiology recommendation. [facility] Tele[facility] encounter Note* Telephone Encounter - Shawnee Bryant - 02/17/2023 9:11 AM EST Patient is Open Access and a fax was sent to office from Cardiology Dr. Leonides Baker in regards to clearance for colonoscopy on 02/22/[address] Ruiz Fax states patient is clear to proceed and to hold Eliquis 2 days prior to procedure Please review and advise Fax in scanned doc Shawnee Bryant [facility]10-[facility] History of Present illness Narrative* Florian Gonzalez MD - 01/31/2023 9:43 AM EDT This note was created using Comixology[employer]. Subjective Orion Dumont is a 72 year old male. He's been dealing with an itchy rash of his right foot for 3 weeks or more. He was applying HCC andan antifungal cream with no improvement. He was soaking his feet in Epsom salts also. Edema was more persistent. Review of Systems Constitutional: Negative for fever and unexpected weight change. Respiratory: Negative for shortness of breath. Cardiovascular: Positive for leg swelling. Negative for chest pain and palpitations. Gastrointestinal: Negative for abdominal pain, constipation and diarrhea. ACTIVE PROBLEM LIST Eating Disorder, Unspecified Generalized Anxiety Disorder Major Depressive Disorder, Recurrent Episode, Moderate (Hcc) Lexie (Obstructive Sleep Apnea) Varicose Veins of Both Legs With Edema Gastric Bypass Status for Obesity Vitamin D Deficiency Orthostatic Hypotension Postsurgical Dumping Syndrome Hip Joint Replacement By Other Means Atrial Fibrillation With Rvr ([facility]) Retinal Detachment Care Home Current Use of Anticoagulant Bph With Urinary Obstruction Obesity, Class II, Bmi 35-39.9 Hyperlipidemia Impaired Fasting Glucose Chronic Combined Systolic and Diastolic Congestive Heart Failure ([facility]) Stage 1 Mild Copd By Gold Classification ([facility]) Current Outpatient Medications Medication Sig [START ON 02/06/2023] pantoprazole DR (PROTONIX) 40 mg tablet Take 1 tablet by mouth daily before breakfast. Take on empty stomach, 1/2 hr before meal. [START ON 02/06/2023] atorvastatin (LIPITOR) 20 mg tablet Take 1 tablet by mouth once daily. sertraline (ZOLOFT) 100 mg tablet Take 1 tablet by mouth once daily. digoxin (LANOXIN) 250 mcg (0.25 mg) tablet Take 1 tablet by mouth once daily. fludrocortisone (FLORINEF) 0.1 mg tablet Take 1 tablet by mouth once daily. bisoprolol (ZEBETA) 5 mg tablet Take 1 tablet by mouth once daily. oxybutynin XL (DITROPAN XL) 5 mg 24 hr tablet TAKE 1 TABLET BY MOUTH EVERY DAY busPIRone (BUSPAR) 15 mg tablet Take 1 tablet by mouth twice daily. acetaminophen-codeine (TYLENOL-COD #3) 300-30 mg per tablet TAKE 1 TABLET BY MOUTH EVERY 6-8 HOURS NEEDED FOR PAIN. oxyCODONE-acetaminophen (PERCOCET) 5-325 mg tablet TAKE 1 TABLET BY MOUTH EVERY FOUR TO SIX HOURS NEEDED FOR PAIN MAX 4 PER DAY. HYDROcodone-acetaminophen (NORCO) 5-325 mg per tablet Take 1 tablet by mouth every 6 hours as needed for pain. methocarbamol (ROBAXIN) 500 mg tablet TAKE 1 TABLET BY MOUTH EVERY EIGHT HOURS NEEDED FOR MUSCLESPASMS lamoTRIgine (LAMICTAL) 100 mg tablet TAKE 1 TABLET BY MOUTH EVERY DAY apixaban (ELIQUIS) 5 mg tab(s) Take 1 tablet by mouth twice daily. cholecalciferol (VITAMIN D3) 50 mcg (2,000 unit) tablet Take 1 tablet by mouth daily with dinner. calcium citrate-vitamin D3 (CITRACAL PLUS D) 315 mg-5 mcg (200 unit) tab Take 1 tablet by mouth twice daily with meals. With each meal. [id number]-[id number]-E-FA-Fish Oil [phone] nd-mn-tyk-mcg cap Take 600 mg by mouth once daily. (Patient taking differently: Take 600 mg by mouth two times a day.) pyridoxine (VITAMIN B-6) 100 mg tablet Take 2 tablets by mouth twice daily. docusate sodium 100 mg capsule Take 1 capsule by mouth twice daily as needed for Constipation. furosemide (LASIX) 20 mg tablet Take 1 tablet by mouth once daily for 7 days. terbinafine HCl (LAMISIL) 250 mg tablet Take 1 tablet by mouth once daily for 14 days. No current facility-administered medications for this visit. Objective BP 100/66 (BP Site: Left Arm, BP Position: Sitting, BP Cuff Size: Large Adult) Pulse 76 Resp 16 Wt 98 kg (216 lb) BMI 28.50 kg/m Physical Exam Constitutional: General: He is not in acute distress. Appearance: He is not ill-appearing. Pulmonary: Effort: Pulmonary effort is normal. Musculoskeletal: Right lower le+ Pitting Edema present. Left lower le+ Pitting Edema present. Skin: Findings: Erythema and rash present. Comments: Stasis discoloration of skin of legs and feet. Peeling dermatitis of right foot. Psoriasiform thickening of the right heel. Neurological: Mental Status: He is alert. Assessment and Plan 1. Edema of both legs - ICD9: 782.3, ICD10: R60.0 (primary diagnosis) - Use compression. - FUROSEMIDE 20 MG TABLET. Daily x 7 days. Discussed medication dosage, usage, goals of therapy, and side effects. 2. Tinea pedis of right foot - ICD9: 110.4, ICD10: B35.3 - Keep area of concern very dry. Ok to use OTC antifungal powder if area is moist - TERBINAFINE HCL 250 MG TABLET. Daily x 14 days. Discussed medication dosage, usage, goals of therapy, and side effects. 3. Special screening for malignant neoplasms, colon - ICD9: V76.51, ICD10: Z12.11 - He will be due 2023. He does not tolerate usual prep, and may need MAC. - COLONOSCOPY SCREENING Florian Gonzalez MD * Teri Cummings LPN - 01/31/2023 8:12 AM EDT [facility] OPEN ACCESS QUESTIONNAIRE 1. Are you currently having any new or unusual stomach/gastrointestinal issues at this time such asconstipation, diarrhea, abdominal pain, rectal bleeding etc?No 2. Do you have any difficulty swallowing? No 3. Do you have any implanted devices such as a defibrillator, pacemaker, cardiac stents or deep brain stimulator? No 4. Do you take any Blood thinners such as Coumadin, Plavix, Xarelto, Eliquis, Brilinta or any otherblood thinner? YES:Eliquis 5. Do you have any new or past cardiac (heart) or pulmonary (lung) issues? No 6. Do you currently use any oxygen? No 7. Have you been hospitalized in the past 6 weeks? No 8. Have you had difficulty with anesthesia previously re: Difficult intubation? No Other difficulty or allergic reaction to anesthesia other than post op N/V? No 9. Are you on dialysis? No 10. Do you have any bleeding disorders such as hemophilia or Factor 5? No 11. Are you an Insulin Dependent Diabetic? No IF ANY OF THE TOP ELEVEN QUESTIONS ARE ANSWERED YES PLEASE SCHEDULE THE PATIENT FOR A CONSULT. advised 12. Is the patient's BMI 40 or greater? No:Body mass index is 28.5 kg/m .. 13. Do you take any narcotics or anti-Anxiety medications? Yes /Tylenol w/Codeine, Percocet, [place] 14. Do you use any illegal or recreational drugs including marijuana? No 15. Any alcohol use: No. 16. Have you been diagnosed with chronic liver disease such as hepatitis or cirrhosis? No 17. Do you have a seizure disorder? No 18. Do you have ulcerative colitis or Crohn's disease? No 19. Are you or could you be ? No 20. Any other important health information we should be made aware of prior to your colonoscopy? No To be completed by LIP: Did patient have MAC anesthesia with a previous endoscopy procedure? No Patient appropriate for Open Access Colonoscopy: Yes: appropriate for Open Access Procedure Checklist: Prior to closing the encounter: Complete questionnaire: Yes Confirm Prep order has been Ordered/Pended: Yes. Patient's procedure could be delayed if not given the script for the prep. Please ensure the prep is escripted to pharmacy or printed. Instructions for the prep will print upon filing or pending thissmartset. Please send all open access questionnaires to [facility] Pool #[id number] documented in this encounter[facility]10-24-2023 Instructions* Patient Instructions* Florian Gonzalez MD - 01/31/2023 8:46 AM EDT Images from the original note were not included. Miralax/Dulcolax Bowel Prep For this bowel preparation, you will need to purchase the following medications at any pharmacy: Over the counter Miralax (generic name is polyethylene glycol) 8.3 oz or 238 grams Four (4) Dulcolax (generic name is Bisacodyl) tablets 3 days prior to your procedure, you need to be on a low fiber diet (Such as popcorn, beans, seeds, nuts, salad and raw vegetables, corn, fresh and dried fruit and multi-grain bread) YOU MUST BE ON CLEAR LIQUIDS FOR 2 FULL DAYS PRIOR TO YOUR COLONOSCOPY Day one which would be two days before your colonoscopy, you will need to be on clear liquids all day. You may have coffee or tea-black only (no cream), clear broths (beef, chicken or vegetable), apple juice, white grape juice, pop, Gatorade, Powerade, lemonade, Jello, popsicles, Silverio-aid, and water-But nothing red or dark purple in color and no dairy products, tomato or orange juices. Day two which would be the day before your colonoscopy continue clear liquids all day as above. And follow the instructions below: 8:00 AM - Mix the Miralax with 64 oz of Gatorade or another clear liquid of choice and place in refrigerator. Most people say the drink is better cold. 4:00 PM - Take 2 of the Dulcolax tablets with 8 oz of water. 6:00 PM - Start to drink the Miralax mixture. You must finish it by midnight. 8:00 PM - Take the other 2 Dulcolax tablets with 8 oz of water. You may continue to drink clear liquids while you are taking your prep and after you finish it as long as it is before midnight. Drink lots of fluids so you don t become dehydrated. Nothing to drink after midnight the night before the procedure unless you are instructed differently by the physician or nurses. Please remember to take your normal medications the morning of the procedure with a small sip of water especially your blood pressure medications. If you are diabetic, you need to contact your physician about how to take your diabetic medications and/or insulin during the prepping period and the day of your procedure. Any questions please call: Dr. Ruiz or Dr. Rodriguez [phone] [facility] nurses [phone] documented in this encounterMemorial Health System10-12-2023 History of Present illness Narrative* Toya Smith MD - 01/19/2023 9:30 AM EDT Images from the original note were not included. [facility] [place] [address] [address] Dept: [phone] Dept 01/19/2023 Chief Complaint Patient presents with Follow-up LEFT thumb carpometacarpal arthroplasty with partial excision trapezoid on 07/01/22 SUBJECTIVE Orion is approximately 6.5 month(s) s/p LEFT thumb carpometacarpal arthroplasty with partial excision trapezoid. He is no longer taking anything for pain. He states he has made an 75-80% improvement since his last appointment. Left thumb is now largely asymptomatic. He is able to use it without pain and is pleased with the previous injection. Has superficial skin rash along the volar base of his thumb. Also endorses right index MCP pain. States he hyperextended it recently has had pain since. OBJECTIVE Ht 6' 1 (1.854 m) Wt 210 lb (95.3 kg) BMI 27.71 kg/m Ortho Exam Left thumb CMC nontender. No pain with CMC grind. Mild soft tissue swelling centered around the CMCjoint. Right index MCP with mild soft tissue swelling. Tender over the radial collateral ligament. Mild laxity radial collateral ligament. No extensor tendon subluxation. No triggering. IMAGING NONE ASSESSMENT (M19.032) Arthritis of xxqhmckt-nvkxvhjtc-smcfmcdik joint of left hand (M18.12) Primary osteoarthritis of first carpometacarpal joint of left hand 1. Arthritis of tcifpifj-mvebcvxwh-mjbjsghxq joint of left hand 2. Primary osteoarthritis of first carpometacarpal joint of left hand PLAN Orion is doing well with the left thumb CMC following his injection. Right index MCP sprain can be treated conservatively. OTC meds for pain. He will follow-up in apparent basis. If left thumb CMC acts up again in the future I recommend another injection. Immobilization: NO immobilization required at this point - FULL ROM encouraged without resitrictions Weight Bearing: Weight Bearing As Tolerated Rehabilitation: NO formal rehabilitation required at this point. Follow-up: Orion will followup with me on an as needed basis. He knows to call the office with any questions or concerns in the interim. Future Imaging: NONE Toya Smith MD Hand and Upper Extremity Surgery [facility] Department of Orthopaedics and Sports Medicine 01/19/2023 at 9:39 AM (Please note that portions of this note may have been completed with a voice recognition program. Efforts were made to edit the dictations but occasionally words are mis-transcribed.) documented in this [facility]09-01-2023 History of Present illness Narrative* Florian Gonzalez MD - 12/09/2022 2:24 PM EDT This note was created using Comixologyriter. Subjective Orion Dumont is a 72 year old male here for a persistent tender and discolored area of his rightlower leg. He was vague about how this started 4 weeks ago but felt he hit his leg against some furniture. He was also concerned about generalized itching and sensitivity to what he felt was either his oxybutynin or cyclobenzaprine. He felt since he developed a rash and itching to a homeopathic pain creamin October, this other medications were making him itch. He had no rash. Review of Systems Constitutional: Negative for chills, diaphoresis and fever. Respiratory: Negative for shortness of breath and wheezing. Cardiovascular: Negative. Gastrointestinal: Negative. ACTIVE PROBLEM LIST Eating Disorder, Unspecified Generalized Anxiety Disorder Major Depressive Disorder, Recurrent Episode, Moderate ([facility]) Lexie (Obstructive Sleep Apnea) Varicose Veins of Both Legs With Edema Gastric Bypass Status for Obesity Vitamin D Deficiency Orthostatic Hypotension Postsurgical Dumping Syndrome Hip Joint Replacement By Other Means Atrial Fibrillation With Rvr ([facility]) Retinal Detachment Care Home Current Use of Anticoagulant Bph With Urinary Obstruction Obesity, Class II, Bmi 35-39.9 Hyperlipidemia Impaired Fasting Glucose Chronic Combined Systolic and Diastolic Congestive Heart Failure ([facility]) Stage 1 Mild Copd By Gold Classification ([facility]) Current Outpatient Medications Medication Sig busPIRone (BUSPAR) 15 mg tablet Take 1 tablet by mouth twice daily. acetaminophen-codeine (TYLENOL-COD #3) 300-30 mg per tablet TAKE 1 TABLET BY MOUTH EVERY 6-8 HOURS NEEDED FOR PAIN. oxyCODONE-acetaminophen (PERCOCET) 5-325 mg tablet TAKE 1 TABLET BY MOUTH EVERY FOUR TO SIX HOURS NEEDED FOR PAIN MAX 4 PER DAY. oxybutynin XL (DITROPAN XL) 5 mg 24 hr tablet Take 1 tablet by mouth once daily. HYDROcodone-acetaminophen (NORCO) 5-325 mg per tablet Take 1 tablet by mouth every 6 hours as needed for pain. methocarbamol (ROBAXIN) 500 mg tablet TAKE 1 TABLET BY MOUTH EVERY EIGHT HOURS NEEDED FOR MUSCLESPASMS lamoTRIgine (LAMICTAL) 100 mg tablet TAKE 1 TABLET BY MOUTH EVERY DAY apixaban (ELIQUIS) 5 mg tab(s) Take 1 tablet by mouth twice daily. sertraline (ZOLOFT) 100 mg tablet Take 1 tablet by mouth once daily. bisoprolol (ZEBETA) 5 mg tablet Take 1 tablet by mouth once daily. digoxin (LANOXIN) 250 mcg (0.25 mg) tablet Take 1 tablet by mouth once daily. fludrocortisone (FLORINEF) 0.1 mg tablet Take 1 tablet by mouth once daily. pantoprazole DR (PROTONIX) 40 mg tablet Take 1 tablet by mouth daily before breakfast. Take on empty stomach, 1/2 hr before meal. atorvastatin (LIPITOR) 20 mg tablet Take 1 tablet by mouth once daily. cholecalciferol (VITAMIN D3) 50 mcg (2,000 unit) tablet Take 1 tablet by mouth daily with dinner. calcium citrate-vitamin D3 (CITRACAL PLUS D) 315 mg-5 mcg (200 unit) tab Take 1 tablet by mouth twice daily with meals. With each meal. Gvppz8-VuuV2-P80-E-FA-Fish Oil [phone] ja-do-kup-mcg cap Take 600 mg by mouth once daily. (Patient taking differently: Take 600 mg by mouth twice daily.) pyridoxine (VITAMIN B-6) 100 mg tablet Take 2 tablets by mouth twice daily. docusate sodium 100 mg capsule Take 1 capsule by mouth twice daily as needed for Constipation. No current facility-administered medications for this visit. Objective BP (P) 106/64 (BP Site: Left Arm, BP Position: Sitting, BP Cuff Size: Large Adult) Pulse (P) 78 Temp (P) 36.8 C (98.3 F) (Temporal) Resp (P) 16 Wt (P) 96.6 kg (213 lb) BMI (P) 28.10 kg/m Physical Exam Constitutional: General: He is not in acute distress. Appearance: He is not ill-appearing or diaphoretic. Cardiovascular: Rate and Rhythm: Normal rate and regular rhythm. Pulmonary: Effort: No respiratory distress. Breath sounds: No wheezing or rhonchi. Musculoskeletal: Right lower leg: No edema. Left lower leg: No edema. Skin: Comments: 1) 2 cm diameter erythematous tender nodule of the right distal tibial area. 2) Feet with spider veins and blanchable purplish discoloration. Neurological: Mental Status: He is alert. Assessment and Plan 1. Tibial pain - ICD9: 733.90, ICD10: M89.8X6 (primary diagnosis) - XR TIBIA FIBULA 2V AP/LAT RIGHT - CBC - COMP METABOLIC PANEL - SED RATE WESTERGREN - C-REACTIVE PROTEIN (CRP) - E. nodosum? 2. Idiosyncratic reaction to medication after proper dose, subsequent encounter - ICD9: V58.89, ICD10: T50.905D - We discussed he will stop oxybutynin for at least 3 days, then try the cyclobenzaprine to see if he developed itching. If no reaction develops, he will restart oxybutynin and see if he develops itching. - CBC - COMP METABOLIC PANEL - SED RATE WESTERGREN - C-REACTIVE PROTEIN (CRP) 3. Pruritus - ICD9: 698.9, ICD10: L29.9 As discussed above. If he continues to have issues, consider referral to allergy. - CBC - COMP METABOLIC PANEL - SED RATE WESTERGREN - C-REACTIVE PROTEIN (CRP) Florian Gonzalez MD documented in this encounterMemorial Health System08-15-2023 Miscellaneous Notes* Telephone Encounter - Jyoti Sal OCCA - 11/22/2022 3:33 PM EDT Patient has been identified by name and date of : Yes Patient phones for refill(s): Requested Prescriptions Pending Prescriptions Disp Refills busPIRone (BUSPAR) 15 mg tablet 180 tablet 1 Sig: Take 1 tablet by mouth twice daily. Date of last office visit in primary care: DOMINIC 11/08/22 NOV 05/12/23 Last 2 Encounter Wt Readings: Date: Wt: 11/18/2022 96.8 kg (213 lb 6.4 oz) 11/08/2022 97.1 kg (214 lb) Please advise. Thank you. ELGIN Le documented in this encounterMemorial Health System08-11-2023 History of Present illness Narrative* Antonio Stahl PA-C - 11/18/2022 11:14 AM EDT Images from the original note were not included. [facility] ESTABLISHED PATIENT CLINIC NOTE Some elements copied from his previous note, which have been updated where appropriate, and all reflect current medical decision making from date of this visit. SERVICE DATE: 11/18/2022 SERVICE TIME: 11:14 AM NAME: Orion Dumont CHIEF COMPLAINT: BPH and Balanitis HISTORY OF PRESENT ILLNESS: Orion Dumont is a 71 year old male an established patient following up for BPH with LUTS and newBalanitis on Glans Penis The patient reports hea hd a Green Light PVP with Dr. Moreno in 2018 and his PVR remains at 0 ml and no longer taking Flomax due to LH spells He is having urgency now that is bothers ome so we discussed Ditropan 5 mg low dose for urgency And Lortisone cream for Balanitis He voiced his being upset about losing ability to ejaculate after the GLL PVP procedure. LUTS: DYSURIA: no URGENCY: Yes FREQUENCY:11 per day NOCTURIA: 3 per night STRAINING TO VOID: No EMPTIES COMPLETELY: Yes UTI: No GROSS HEMATURIA: no UA DIPSTICK POSITIVE ONLY: no Other symptoms: ED - no LABS: Hematocrit (%) Date Value 05/10/2022 46.8 05/05/2021 43.1 11/20/2020 47.1 09/18/2020 44.4 03/20/2020 39.2 PSA (ng/mL) Date Value 05/18/2017 0.19 05/15/2003 0.54 PSA Screening (ng/mL) Date Value 04/15/2013 0.79 02/18/2010 0.52 Testosterone (ng/dL) Date Value 01/14/2014 961 09/24/2013 629 PSA (ng/mL) Date Value 05/18/2017 0.19 05/15/2003 0.54 PSA Screening (ng/mL) Date Value 04/15/2013 0.79 02/18/2010 0.52 Creatinine Date Value Ref Range Status 05/10/2022 0.93 0.73 - 1.22 mg/dL Final 05/05/2021 1.16 0.73 - 1.22 mg/dL Final 04/12/2021 1.01 0.73 - 1.22 mg/dL Final 09/18/2020 1.11 0.73 - 1.22 mg/dL Final MEDICATIONS: acetaminophen-codeine (TYLENOL-COD #3) 300-30 mg per tablet TAKE 1 TABLET BY MOUTH EVERY 6-8 HOURS NEEDED FOR PAIN. oxyCODONE-acetaminophen (PERCOCET) 5-325 mg tablet TAKE 1 TABLET BY MOUTH EVERY FOUR TO SIX HOURS NEEDED FOR PAIN MAX 4 PER DAY. HYDROcodone-acetaminophen (NORCO) 5-325 mg per tablet Take 1 tablet by mouth every 6 hours as needed for pain. methocarbamol (ROBAXIN) 500 mg tablet TAKE 1 TABLET BY MOUTH EVERY EIGHT HOURS NEEDED FOR MUSCLESPASMS lamoTRIgine (LAMICTAL) 100 mg tablet TAKE 1 TABLET BY MOUTH EVERY DAY apixaban (ELIQUIS) 5 mg tab(s) Take 1 tablet by mouth twice daily. busPIRone (BUSPAR) 15 mg tablet Take 1 tablet by mouth twice daily. sertraline (ZOLOFT) 100 mg tablet Take 1 tablet by mouth once daily. bisoprolol (ZEBETA) 5 mg tablet Take 1 tablet by mouth once daily. digoxin (LANOXIN) 250 mcg (0.25 mg) tablet Take 1 tablet by mouth once daily. fludrocortisone (FLORINEF) 0.1 mg tablet Take 1 tablet by mouth once daily. pantoprazole DR (PROTONIX) 40 mg tablet Take 1 tablet by mouth daily before breakfast. Take on empty stomach, 1/2 hr before meal. atorvastatin (LIPITOR) 20 mg tablet Take 1 tablet by mouth once daily. cholecalciferol (VITAMIN D3) 50 mcg (2,000 unit) tablet Take 1 tablet by mouth daily with dinner. calcium citrate-vitamin D3 (CITRACAL PLUS D) 315 mg-5 mcg (200 unit) tab Take 1 tablet by mouth twice daily with meals. With each meal. Ppbzi4-PfsP1-V41-E-FA-Fish Oil [id number] xb-qq-ypf-mcg cap Take 600 mg by mouth once daily. (Patient taking differently: Take 600 mg by mouth twice daily.) pyridoxine (VITAMIN B-6) 100 mg tablet Take 2 tablets by mouth twice daily. docusate sodium 100 mg capsule Take 1 capsule by mouth twice daily as needed for Constipation. clotrimazole-betamethasone (LOTRISONE) cream Apply to affected area twice daily for 14 days. oxybutynin XL (DITROPAN XL) 5 mg 24 hr tablet Take 1 tablet by mouth once daily. 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 Currently chest pain free; However, there is a high chance of recurrence since treatment has been on hold. Giving him steroid might actually put him at more risk of re bleeding. NSAID'S notan option for now. Plan: Consider Colchicine. If patient is to be restarted on AC, Colchicine has DVT (deep venous thrombosis) (HCC) 01/12/2010 S/P IVC filter, occurred post-op, on anticoagulation (for a fib) Eating disorder, unspecified 07/01/2009 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 Essential hypertension, benign Fatty liver 11/03/2009 by us Gall stones, common bile duct 12/07/2013 Generalized anxiety disorder 07/01/2009 GI bleed 06/29/2012 Hyperlipidemia 08/25/2020 Impotence of organic origin Iron deficiency anemia 08/02/2012 Major depressive disorder, recurrent episode, moderate (HCC) 07/01/2009 Morbid obesity (HCC) 04/21/2009 stated BMI 51.1 Ht: 75 Wt: 410 lbs MSSA (methicillin susceptible Staphylococcus aureus) infection 07/03/2012 Hx: MSSA infection of serosal fluids collection in L chest wall. S/P I/D on 06/19. On IV oxacillin till and then dc'ed on 06/23 with a 10 day course of Dicloxacillin. 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 Plan: Monitor H&H Q8H, transfuse as necessary, keep Hb>8 Consult IR for further intervention Protonix gtt for now, will switch to protonix 40mg bid when Hb is stable after 48-72 salma UTI (lower urinary tract infection) Varicose veins 2010 PAST SURGICAL HISTORY: PAST SURGICAL HISTORY Procedure Laterality Date ARTHRP ACETBLR/PROX FEM PROSTC AGRFT/ALGRFT 1993 left CARDIOVERSION CHOLECYSTECTOMY 11/18/2013 COLONOSCOPY GEN ANES 04/20/2020 CYSTO BLADDER W/URETERAL CATHETERIZATION 01/30/2010 CYSTOSCOPY, RETROPYELOGRAM performed by RADHA OLIVAREZ at OR CYSTO W/INSERT URETERAL STENT 01/30/2010 CYSTOSCOPY, INSERTION STENT URETERAL J performed by RADHA OLIVAREZ at OR CYSTOURETHROSCOPY 06/16/2017 Cystoscopy DISKECTOMY, LUMBAR, SINGLE SP 1982 L4-5 EGD 04/20/2020 GASTRIC BYPASS HX 2008 w/ complications. NEPHROLITHOTOMY REMOVAL STAGE 1 05/02/2012 PAST SURGICAL HISTORY OF 1967 left hip pin PAST SURGICAL HISTORY OF 04/23/2012 heart surgery PAST SURGICAL HISTORY OF 06/04/2012 stitches for broken blood vesel in rectum REDUCE BOWEL OBSTRUCTION 06/24/2010 Performed by RAN REPAIR RETINAL DETACHMENT SCLERAL BUCKLING 10/2009 od Scleral Buckle REPAIR RETINAL DETACHMENT SCLERAL BUCKLING 08/05/2013 SB (Scleral Buckle)/ cyro os REVISE MEDIAN N/CARPAL TUNNEL SURG Left 10/2020 SESAMOIDECTOMY, THUMB/FINGER Left 06/30/2022 Left Thumb arthroplasty VITRECTOMY MECHANICAL PARS PLANA 09/03/2013 PPV / EL / gas OS FAMILY HISTORY: FAMILY HISTORY Problem Relation Age of Onset Ischemic Heart Disease Father Diabetes Mother other (Other) Mother Diabetes Sister Cataract Sister Detached Retina Sister SOCIAL HISTORY: Social Connections: Moderately Integrated (03/08/2022) Social Connection and Isolation Panel [NHANES] Frequency of Communication with Friends and Family: Three times a week Frequency of Social Gatherings with Friends and Family: Once a week Attends Restorationist Services: 1 to 4 times per year Active Member of Clubs or Organizations: No Attends Club or Organization Meetings: 1 to 4 times per year Marital Status: REVIEW OF SYSTEMS: GENERAL: No fever, chills, weight loss, or fatigue. All other systems reviewed and are negative PHYSICAL EXAMINATION: Blood pressure 82/60, pulse 102, temperature 36.8 C (98.3 F), temperature source Temporal, resp. rate 14, height 185.4 cm (6' 1), weight 96.8 kg (213 lb 6.4 oz), SpO2 99 %. GENERAL: WNL nutrition, no deformities, healthy appearing PROBLEM LIST REVIEW: Yes LABS: Results for orders placed or performed in visit on 11/18/22 UA DIP, URINE (POC) Result Value Ref Range GLUCOSE UA (POCT) Negative Negative mg/dL BILIRUBIN UA (POCT) Negative Negative KETONE UA (POCT) Negative Negative mg/dL SPECIFIC GRAVITY UA (POCT) 1.020 1.005 - 1.030 HEMOGLOBIN/BLOOD UA (POCT) Negative Negative PH UA (POCT) 5.5 4.5 - 8.0 PROTEIN UA (POCT) Negative Negative mg/dL UROBILINOGEN UA (POCT) 0.2 Normal E.U./dL NITRITE UA (POCT) Negative Negative LEUKOCYTES UA (POCT) Negative Negative COLOR UA (POCT) Yellow CLARITY UA (POCT) Clear *Note: Due to a large number of results and/or encounters for the requested time period, some results have not been displayed. A complete set of results can be found in Results Review. PROCEDURES: PVR: 0 ml IMAGING: IMPRESSION/PLAN: 71 year old male with 1. Balanitis - ICD9: 607.1, ICD10: N48.1 2. Urge incontinence of urine - ICD9: 788.31, ICD10: N39.41 > Lotrisone Rx sent > Trial of Ditropan 5 mg of Urgencu > 3 mo. Appt w/ B. BEATRIS Stahl MT, PA-C for new Rx Follow-up BEATRIS Jerome MT, PA-C * Adin Pleitez LPN - 11/18/2022 9:26 AM EDT Verified name and date of . CC Post Void Residual HPI: Orion Dumont is a 71 year old male. The patient is here now for an appointment with BEATRIS Jerome MT, PA-COV. Procedure: Explained procedure to patient and verbalizes understanding. Performed a PVR. Patient urinated and instructed to empty bladder as much as possible just prior to having PVR done using bladder ultrasound scanner. Results of scan: 0 mL The patient tolerated the procedure well. Plan: Appointment with Antonio. [facility] History of Present illness Narrative* Florian Gonzalez MD - 11/08/2022 11:36 AM EDT This note was created using NoteWriter. Subjective Orion Dumont is a 71 year old male. He was in the ER 10/28/22 with a reaction to Arnica boost cream, a homeopathic remedy for pain. He was given one dose of prednisone in the ER. He had a follow up with Dr. Smith for his left thumb and symptoms were not better after surgery, soPT and OT was recommended. He continued to have recurrent rash around his glans penis. Part of the issue may be urge incontinence noted for several months. He sees multiple specialists and had been losing weight from lack of appetite. Review of Systems Constitutional: Positive for appetite change and unexpected weight change. Negative for chills and fever. Respiratory: Negative for shortness of breath. Cardiovascular: Negative for chest pain. Genitourinary: Positive for urgency. Negative for decreased urine volume, difficulty urinating and dysuria. Musculoskeletal: Positive for arthralgias. Neurological: Negative for syncope and light-headedness. 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 lamoTRIgine (LAMICTAL) 100 mg tablet TAKE 1 TABLET BY MOUTH EVERY DAY apixaban (ELIQUIS) 5 mg tab(s) Take 1 tablet by mouth twice daily. busPIRone (BUSPAR) 15 mg tablet Take 1 tablet by mouth twice daily. sertraline (ZOLOFT) 100 mg tablet Take 1 tablet by mouth once daily. bisoprolol (ZEBETA) 5 mg tablet Take 1 tablet by mouth once daily. digoxin (LANOXIN) 250 mcg (0.25 mg) tablet Take 1 tablet by mouth once daily. fludrocortisone (FLORINEF) 0.1 mg tablet Take 1 tablet by mouth once daily. pantoprazole DR (PROTONIX) 40 mg tablet Take 1 tablet by mouth daily before breakfast. Take on empty stomach, 1/2 hr before meal. atorvastatin (LIPITOR) 20 mg tablet Take 1 tablet by mouth once daily. cholecalciferol (VITAMIN D3) 50 mcg (2,000 unit) tablet Take 1 tablet by mouth daily with dinner. calcium citrate-vitamin D3 (CITRACAL PLUS D) 315 mg-5 mcg (200 unit) tab Take 1 tablet by mouth twice daily with meals. With each meal. Ecjad2-QlhF8-W69-E-FA-Fish Oil [id number] zx-lz-lbz-mcg cap Take 600 mg by mouth once daily. (Patient taking differently: Take 600 mg by mouth twice daily.) pyridoxine (VITAMIN B-6) 100 mg tablet Take 2 tablets by mouth twice daily. docusate sodium 100 mg capsule Take 1 capsule by mouth twice daily as needed for Constipation. methocarbamol (ROBAXIN) 500 mg tablet TAKE 1 TABLET BY MOUTH EVERY EIGHT HOURS NEEDED FOR MUSCLESPASMS No current facility-administered medications for this visit. Objective BP 92/60 (BP Site: Left Arm, BP Position: Sitting, BP Cuff Size: Large Adult) Pulse 76 Resp 18 Wt 97.1 kg (214 lb) BMI 28.43 kg/m Physical Exam Constitutional: General: He is not in acute distress. Eyes: General: No scleral icterus. Conjunctiva/sclera: Conjunctivae normal. Cardiovascular: Rate and Rhythm: Normal rate and regular rhythm. Heart sounds: No murmur heard. No gallop. Pulmonary: Breath sounds: Normal breath sounds. Abdominal: General: There is no distension. Palpations: Abdomen is soft. Tenderness: There is no abdominal tenderness. Musculoskeletal: Right lower leg: No edema. Left lower leg: No edema. Neurological: Mental Status: He is alert. Gait: Gait normal. Assessment and Plan 1. Balanitis - ICD9: 607.1, ICD10: N48.1 (primary diagnosis) - CONSULT TO UROLOGY 2. Impaired fasting glucose - ICD9: 790.21, ICD10: R73.01 Recheck. - HGB A1C 3. Hyperlipidemia, unspecified hyperlipidemia type - ICD9: 272.4, ICD10: E78.5 - Control undetermined, due for labs - CBC - COMP METABOLIC PANEL - LIPID PANEL BASIC 4. Generalized anxiety disorder - ICD9: 300.02, ICD10: F41.1 Per psychiatry. 5. Major depressive disorder, recurrent episode, moderate (HCC) - ICD9: 296.32, ICD10: F33.1 Per psychiatry. 6. Urge incontinence of urine - ICD9: 788.31, ICD10: N39.41 - CONSULT TO UROLOGY 7. LEXIE (obstructive sleep apnea) - ICD9: 327.23, ICD10: G47.33 He stopped using his BiPAP a few years ago as he felt no benefit. He has not followed up with pulmonary. Florian Gonzalez MD documented in this encounterMem[facility]07-05-[facility]23 History of Present illness Narrative* Rosa Jameson, OT - 10/12/2022 3:30 PM EDT Images from the original note were not included. [facility] AT [facility] [address] [place] [address] Dept: [phone] Dept OCCUPATIONAL THERAPY RE-EVALUATION Patient Name: Orion Dumont : 1950 Date of Service: 10/12/2022 Referring Provider: Berenice Hanks PA-C Diagnosis: Arthritis of hpwkwnyd-yfnsthteg-cuknzvlmk joint of left hand Reason for referral/Mechanism of injury: s/p Left thumb carpometacarpal arthroplasty and intrinsic release, partial excision trapezoid, DOS 07/01/2022 Precautions/Red Flags: Yes UE weight bearing status: Non-weight bearing thru left hand post-surgical precautions: No CMC ROM until 6 weeks post op prosthesis/orthosis used: custom thumb spica splint Patient Preferences: Orion will transfer to [place] location due to proximity to home in [place] Subjective General Comments: Continues to report higher than expected pain in wrist 09/17, high pain in cervical spine, pain in thumb is sensitive with strengthening exercises Pain: Current: 2/10 Best: 210 Worst: 10/17 Current Level of Function: limited lifting, independent in self-care, difficulty picking up small objects opening bags that required bilateral pinch ie. [place] chip bags etc. Patient s Stated Goal: relieve pain, gain strength for grasp and pinch Outcome Measures QuickDASH: 36 Objective CURRENT THUMB ROM Date Recorded: 10/12/22 LEFT Thumb CMC (nl 45 /60 ) MCP (nl 10 H/60 ) IP (nl 15 H/80 ) Palmar Abduction 45 Extension 0 15 hyperextension Radial Abduction Limited to 35 Flexion 30 60 *(Passive values entered only if different than active; otherwise = AROM) CURRENT WRIST ROM Date Recorded: 10/12/22 Left Flexion 55 Extension 68 Supination WNL Pronation WNL L HAND SENSORY TABLE LEFT Hand Swisshome Bindu Thumb Index Long Ring Small r u r u r u r u r u 2.83 2.83 2.83 2.83 2.83 2.83 2.83 2.83 2.83 2.83 Median Ulnar Valance Cutter Strength: Right Left Trial 1 60 lbs 40 lbs Pinch Strength lateral pinch: Right Left 18 lbs 10 lbs Pinch Strength 3 jaw-narciso: Right Left 16 lbs 5 lbs 7/10 pain Crepitus with thumb ROM at CMC Assessment Patient with continued unexpected pain in wrist and thumb. Wrist ROM WFL, thumb limited at MP however improves within treatment session allowing opposition to base of small finger. Patient wishes to hold treatment until follow-up with physician 10/27/22. Valance Cutter and pinch improved over last assessment. Rehab Potential: Fair Goals Active General/Ortho Patient will be independent with HEP. (Progressing) Start: 07/11/22 Expected End: 11/11/22 Patient will report decreased pain at 2/10 in left thumb to be able to complete HEP, therapy ROM. (Not Progressing) Start: 07/11/22 Expected End: 11/11/22 Patient will increase ROM of left thumb to be able to full MP and IP AROM WNL, progress to CMC ROM when initiation at 6 weeks post op to gain full AROM for opposition to base of small of little finger (Progressing) Start: 07/11/22 Expected End: 11/11/22 Patient will demonstrate independence with provided splint education. for don/doff, wearing schedule, care of splinting (Completed) Start: 07/11/22 Expected End: 09/07/22 Resolved: 08/10/22 Patient will adhere to prescribed precautions/restrictions for restrictions, splint wear and non weight bearing to protect healing structures (Completed) Start: 07/11/22 Expected End: 10/12/22 Resolved: 09/14/22 Plan Frequency and Duration: hold x 2 weeks and re-assessment if additional treatment ordered Risks and benefits were discussed with the patient and/or family, and the patient and/or family participated with the plan of care and agrees. Treatment Therapeutic Exercise # of Activities: 4 Therapeutic Exercise Activity 1: ROM of thumb Activity 1 Comment: CMC, MP and IP ROM, MP stiffness improved with AAROM, manual therapy Therapeutic Exercise Activity 2: wrist ROM Activity 2 Comment: AROM/AAROM wrist flexion and extension, ulnar sided wrist pain Therapeutic Exercise Acitivity 3: finger flexion/extension Activity 3 Comment: full active finger flexion and extension Soft Tissue Mobilization Location: long sustained stretching of web space between thumb and index finger to improve ability to grasp larger objectis Joint Mobilization Location: left thumb MCP joint Comments: to improve thumb flexion Taping Location: Thumb CMC joint Comments: to assist in thumb stabilization and reduce pain Time Entry Total Treatment Time Start Time: 334 Stop Time: 404 Time Calculation (min): 30 min OT Therapeutic Procedures Time Entry Therapeutic Exercise Time Entry: 15 Manual Therapy Time Entry: 13 Rosa Jameson OT documented [facility] this [facility] History of Present illness Narrative* Mohinder Rodriguez, OT - 09/30/2022 12:00 PM EDT Images from the original note were not included. [facility] AT [place] [id number] [place] [address] Dept: [phone] Dept OCCUPATIONAL THERAPY TREATMENT Patient Name: Orion Dumont : 1950 Date of Service: 09/30/2022 Referring Provider: Berenice Hanks PA-C Diagnosis: Arthritis of dshupcla-dswashhof-hxwumfzyc joint of left hand Reason for referral/Mechanism of injury: s/p Left thumb carpometacarpal arthroplasty and intrinsic release, partial excision trapezoid, DOS 07/01/2022 Patient Preferences: Orion will transfer to [facility] due to proximity to home in [place] Precautions/Red Flags: WBAT Subjective Pt reports he is having a lot of pain in the neck today. Pt reports 2-3/10 in the proximal left thumb. Pt reports he is still unable to grasp large objects e.g. larger cups Compliance with HEP: Yes Objective Objective measures not assessed. Assessment Skilled occupational therapy interventions utilized to improve patient s impairments and work towards established goals. Patient response to treatment: Pt reported high neck pain today and was very distracted by it. Reviewed home program verbally, Pt reported compliance. Educated Pt in benefit of working more on MCP flexion to improve stabilization of CMC. Also educated on stretching of web space to improve ability to grasp large objects. Used Kinesiotape to further stabilize MCP joint. Pt reported taping reduced pain. Good progress towards goals. Patient will benefit from continued occupational therapy to restore left hand function The rationale for today s treatment was explained to the patient. Verbal cues were provided for correct form with all exercises. Advised patient to continue with Home Exercise Program (HEP). Goals General/Ortho Patient will be independent with HEP. (Progressing) Start: 07/11/22 Expected End: 10/12/22 Patient will report decreased pain at 2/10 in left thumb to be able to complete HEP, therapy ROM. (Progressing) Start: 07/11/22 Expected End: 10/12/22 Patient will increase ROM of left thumb to be able to full MP and IP AROM WNL, progress to CMC ROM when initiation at 6 weeks post op to gain full AROM for opposition to base of small of little finger (Progressing) Start: 07/11/22 Expected End: 10/12/22 Plan Plan for next session: reassess with objective measures. Treatment Therapeutic Exercise # of Activities: 2 Therapeutic Exercise Activity 1: PROM of MCP joint of left thumb Activity 1 Comment: to increase flexion Therapeutic Exercise Activity 2: resisted index finger ABD to strengthen adductor pollicis Soft Tissue Mobilization Location: long sustained stretching of web space between thumb and index finger to improve ability to grasp larger objectis Joint Mobilization Location: left thumb MCP joint Comments: to improve thumb flexion Taping Location: Thumb CMC joint Comments: to assist in thumb stabilization and reduce pain Time Entry Total Treatment Time Start Time: 1200 Stop Time: 1230 Time Calculation (min): 30 min OT Therapeutic Procedures Time Entry Therapeutic Exercise Time Entry: 12 Manual Therapy Time Entry: 18 Mohinder Rodriguez OT documented [facility] this [facility] Miscellaneous Notes* Telephone Encounter - Kennedy Mcduffie - 09/28/2022 8:14 AM EDT Patient's request for medication is as follows: Requested Prescriptions Pending Prescriptions Disp Refills lamoTRIgine (LAMICTAL) 100 mg tablet [Pharmacy Med Name: LAMOTRIGINE 100 MG TABLET] 90 tablet 0 Sig: TAKE 1 TABLET BY MOUTH EVERY DAY Prescription(s) as above. Please process accordingly. Kennedy Mcduffie documented in this encounterMem[facility]06-14-[facility]23 History of Present illness Narrative* Rosa Jameson OT - 09/21/2022 9:30 AM EDT Images from the original note were not included. [facility] [place] [facility] AT [facility] [address] [place] [address] Dept: [phone] Dept OCCUPATIONAL THERAPY TREATMENT Patient Name: Orion Dumont : 1950 Date of Service: 09/21/2022 Referring Provider: Berenice Hanks PA-C Diagnosis: Arthritis of ijleujbn-axhzozbee-godvycmgl joint of left hand Reason for referral/Mechanism of injury: s/p Left thumb carpometacarpal arthroplasty and intrinsic release, partial excision trapezoid, DOS 07/01/2022 Precautions/Red Flags: Yes UE weight bearing status: Non-weight bearing thru left hand post-surgical precautions: No CMC ROM until 6 weeks post op prosthesis/orthosis used: custom thumb spica splint Patient Preferences: Orion will transfer to [place] location due to proximity to home in [place] Subjective Thumb feels ok, motion is adequate, wrist pain at ulnar styloid 6/10 Compliance with HEP: Yes Objective Able to oppose to base of small finger following treatment Valance Cutter Strength: Left Trial 1 32 lbs Pinch Strength lateral pinch: Left 6 lbs Pinch Strength 3 jaw-narciso: Left 6 lbs Assessment Skilled occupational therapy interventions utilized to improve patient s impairments and work towards established goals. Patient response to treatment: Slow progress with patient noting high pain in cervical spline limiting comfort in all postures and interfering with sleep; patient has MRI this p.m. Thumb composite flexion to base of small finger despite limited MP flexion actively. Patient having difficulty weaningform splint due to increased pain with activity. Patient will benefit from continued occupational therapy to pain reduction, STM, strengthening The rationale for today s treatment was explained to the patient. Verbal cues were provided for correct form with all exercises. Advised patient to continue with Home Exercise Program (HEP). Goals General/Ortho Patient will be independent with HEP. (Progressing) Start: 07/11/22 Expected End: 10/12/22 Patient will report decreased pain at 2/10 in left thumb to be able to complete HEP, therapy ROM. (Not Progressing) Start: 07/11/22 Expected End: 10/12/22 Patient will increase ROM of left thumb to be able to full MP and IP AROM WNL, progress to CMC ROM when initiation at 6 weeks post op to gain full AROM for opposition to base of small of little finger (Progressing) Start: 07/11/22 Expected End: 10/12/22 Plan Plan for next session: functional integration, strengthening Treatment Therapeutic Exercise # of Activities: 4 Therapeutic Exercise Activity 1: ROM of thumb Activity 1 Comment: CMC, MP and IP ROM, MP stiffness improved with AAROM, manual therapy Therapeutic Exercise Activity 2: wrist ROM Activity 2 Comment: AROM/AAROM wrist flexion and extension, ulnar sided wrist pain Therapeutic Exercise Acitivity 3: finger flexion/extension Activity 3 Comment: full active finger flexion and extension Therapeutic Activity Therapeutic Activity 1: functional pinch and object manipulation Activity 1 Comment: pain and weakness limits patient IASTM Location: left thumb MP joint, dorsal thumb and incisional scar, ulnar wrist Comments: tolerated well, improved MP flexion achieved, wrist pain slightly reduced Time Entry Total Treatment Time Start Time: 0930 Stop Time: 1000 Time Calculation (min): 30 min OT Therapeutic Procedures Time Entry Therapeutic Exercise Time Entry: 6 Therapeutic Activity Time Entry: 12 Manual Therapy Time Entry: 10 Rosa Jameson OT documented [facility] this [facility] History of Present illness Narrative* Rosa Jameson OT - 09/14/2022 12:00 PM EDT Images from the original note were not included. [facility] AT [address] [place] [address] Dept: [phone] Dept OCCUPATIONAL THERAPY TREATMENT Patient Name: Orion Dumont : 1950 Date of Service: 09/14/2022 Referring Provider: Berenice Hanks PA-C Diagnosis: Arthritis of jionzedt-axfdzvnnb-pjabejyyg joint of left hand Reason for referral/Mechanism of injury: s/p Left thumb carpometacarpal arthroplasty and intrinsic release, partial excision trapezoid, DOS 07/01/2022 Precautions/Red Flags: Yes UE weight bearing status: Non-weight bearing thru left hand post-surgical precautions: No CMC ROM until 6 weeks post op prosthesis/orthosis used: custom thumb spica splint Patient Preferences: Orion will transfer to [facility] due to proximity to home in [facility] I feel like I've done too much, lifting and such ; now soreness New onset of pain at ulnar styloid with wrist flexion and extension Compliance with HEP: Yes Objective CURRENT THUMB ROM Date Recorded: 09/14/22 LEFT Thumb CMC (nl 45 /60 ) MCP (nl 10 H/60 ) IP (nl 15 H/80 ) Palmar Abduction 42 Extension 0 10 hyperextension Radial Abduction 40 Flexion 25 50 *(Passive values entered only if different than active; otherwise = AROM) CURRENT WRIST ROM Date Recorded: 09/14/22 Left Flexion 60 Extension 57 Valance Cutter Strength: Right Left Trial 1 60 lbs 34 lbs Pinch Strength lateral pinch: Right Left 18 lbs 10 lbs Pinch Strength 3 jaw-narciso: Right Left 18 lbs 8 lbs Assessment Skilled occupational therapy interventions utilized to improve patient s impairments and work towards established goals. Patient response to treatment: Patient with general achiness of left thumb and wrist which attributes to over work and lifting, new onset of ulnar wrist pain. No significant changes in ROM or strength.Thumb MP stiffness upon presentation, improved within treatment session to baseline. Patient will benefit from continued occupational therapy to reduce pain, improve greens cutter The rationale for today s treatment was explained to the patient. Verbal cues were provided for correct form with all exercises. Advised patient to continue with Home Exercise Program (HEP). Goals General/Ortho Patient will be independent with HEP. (Progressing) Start: 07/11/22 Expected End: 10/12/22 Patient will report decreased pain at 2/10 in left thumb to be able to complete HEP, therapy ROM. (Not Progressing) Start: 07/11/22 Expected End: 10/12/22 Patient will increase ROM of left thumb to be able to full MP and IP AROM WNL, progress to CMC ROM when initiation at 6 weeks post op to gain full AROM for opposition to base of small of little finger (Progressing) Start: 07/11/22 Expected End: 10/12/22 Plan Plan for next session: ROM, strengthening Treatment Therapeutic Exercise # of Activities: 4 Therapeutic Exercise Activity 1: ROM of thumb Activity 1 Comment: CMC, MP and IP ROM, MP stiffness improved with AAROM, manual therapy Therapeutic Exercise Activity 2: wrist ROM Activity 2 Comment: AROM/AAROM wrist flexion and extension, ulnar sided wrist pain Therapeutic Exercise Acitivity 3: finger flexion/extension Activity 3 Comment: full active finger flexion and extension IASTM Location: left thumb MP joint, dorsal thumb and incisional scar, ulnar wrist Comments: tolerated well, improved MP flexion achieved, wrist pain slightly reduced Time Entry Total Treatment Time Start Time: 1200 Stop Time: 1230 Time Calculation (min): 30 min OT Therapeutic Procedures Time Entry Therapeutic Exercise Time Entry: 20 Manual Therapy Time Entry: 8 Rosa Jameson OT documented [facility] this [facility] History of Present illness Narrative* Rosa Jameson OT - 09/07/2022 9:30 AM EDT Images from the original note were not included. [facility] AT [address] [place] [address] Dept: [phone] Dept OCCUPATIONAL THERAPY RE-EVALUATION Patient Name: Orion Dumont : 1950 Date of Service: 09/07/2022 Referring Provider: Berenice Hanks PA-C Diagnosis: Arthritis of otarbhaj-ohcirkpmr-ewfxnynzk joint of left hand Reason for referral/Mechanism of injury: s/p Left thumb carpometacarpal arthroplasty and intrinsic release, partial excision trapezoid, DOS 07/01/2022 Precautions/Red Flags: Yes UE weight bearing status: Non-weight bearing thru left hand post-surgical precautions: No CMC ROM until 6 weeks post op prosthesis/orthosis used: custom thumb spica splint Patient Preferences: Orion will transfer to [facility] due to proximity to home in [place] Subjective General Comments: pain is improving, exercises with theraputty cause discomfort Pain: Current: 1/10 Best: 1/10 Worst: 6/10 Current Level of Function: improved functional integration, 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 to use 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, broom, light meal prep, Patient s Stated Goal: gain strength for increased assist in 2-handed tasks Outcome Measures QuickDASH: 23 Objective Hand Dominance: Right Skin Integrity: well healing surgical scar Edema: trace over dorsum of hand Palpation: non tender ROM: CURRENT THUMB ROM Date Recorded: 09/07/22 LEFT Thumb CMC (nl 45 /60 ) MCP (nl 10 H/60 ) IP (nl 15 H/80 ) Palmar Abduction 45 Extension 0 10 hyperextension Radial Abduction 35 Flexion 35 45 *(Passive values entered only if different than active; otherwise = AROM) CURRENT WRIST ROM Date Recorded: 09/07/22 Left Flexion 62 Extension 62 Supination full Pronation full 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 Recommend continued OT for optimizing functional strengthening and consistent thumb flexion at MP joint. Rehab Potential: Good Goals Active General/Ortho Patient will be independent with HEP. (Progressing) Start: 07/11/22 Expected End: 09/07/22 Patient will report decreased pain at 2/10 in left thumb to be able to complete HEP, therapy ROM. (Progressing) Start: 07/11/22 Expected End: 09/07/22 Patient will increase ROM of left thumb to be able to full MP and IP AROM WNL, progress to CMC ROM when initiation at 6 weeks post op to gain full AROM for opposition to base of small of little finger (Progressing) Start: 07/11/22 Expected End: 09/07/22 Patient will demonstrate independence with provided splint education. for don/doff, wearing schedule, care of splinting (Completed) Start: 07/11/22 Expected End: 09/07/22 Met: 08/10/22 Patient will adhere to prescribed precautions/restrictions for restrictions, splint wear and non weight bearing to protect healing structures (Progressing) Start: 07/11/22 Expected End: 09/07/22 Plan Frequency and Duration: 1/wk for 4 weeks Therapeutic Contents: client education, home exercise program, manual therapy techniques, therapeutic activities, and therapeutic exercise Plan for next session: ROM, strengthening Risks and benefits were discussed with the patient and/or family, and the patient and/or family participated with the plan of care and agrees. Treatment Therapeutic Exercise # of Activities: 4 Therapeutic Exercise Activity 1: ROM of thumb Activity 1 Comment: CMC, MP and IP ROM Therapeutic Exercise Activity 2: wrist ROM Activity 2 Comment: AROM/AAROM wrist flexion and extension Therapeutic Exercise Acitivity 3: finger flexion/extension Activity 3 Comment: full active finger flexion and extension Therapeutic Exercise Activity 4: Theraputty Activity 4 Comment: Yellow - greens cutter/pinch/extension/pull Therapeutic Activity # of Activities: 1 Therapeutic Activity 1: Comfort Cool splint fitting, education Activity 1 Comment: review of precautions, wearing recommendation Time Entry Total Treatment Time Start Time: 929 Stop Time: 1005 Time Calculation (min): 35 min OT Therapeutic Procedures Time Entry Therapeutic Exercise Time Entry: 25 Therapeutic Activity Time Entry: 10 Rosa Jameson OT documented in this [facility]05-10-2023 History of Present illness Narrative* Rosa Jameson OT - 08/17/2022 9:30 AM EDT Images from the original note were not included. [facility] AT [address] [place] [address] Dept: [phone] Dept OCCUPATIONAL THERAPY TREATMENT Patient Name: Orion Dumont : 1950 Date of Service: 08/17/2022 Referring Provider: Berenice Hanks PA-C Diagnosis: Arthritis of euclqdsk-ijyzosqoy-ffzvgqraf joint of left hand Reason for referral/Mechanism of injury: s/p Left thumb carpometacarpal arthroplasty and intrinsic release, partial excision trapezoid, DOS 07/01/2022 Precautions/Red Flags: Yes UE weight bearing status: Non-weight bearing thru left hand post-surgical precautions: No CMC ROM until 6 weeks post op prosthesis/orthosis used: custom thumb spica splint Patient Preferences: Oiron will transfer to [facility] due to proximity to home in [place] Subjective No new complaints, pain modestly improved, patient reports splint may be cut down and new motion initiated per physician visit 08/10/22; patient encouraged to increase frequency to 2x/ week but declined due to travel and gas prices Compliance with HEP: Yes Objective CURRENT THUMB ROM Date Recorded: 08/17/22 LEFT Thumb CMC (nl 45 /60 ) MCP (nl 10 H/60 ) IP (nl 15 H/80 ) Palmar Abduction 30 Extension 0 15 hyperextension Radial Abduction 30 Flexion 25 40 passive 38 42 passive *(Passive values entered only if different than active; otherwise = AROM) CURRENT WRIST ROM Date Recorded: 08/17/22 Left Flexion 70 Extension 50 Assessment Skilled occupational therapy interventions utilized to improve patient s impairments and work towards established goals. Patient response to treatment: Patient with improved thumb MP flexion with provided treatment. Initiated CMC motion and composite thumb flexion without complaints. Splint shortened to hand-based to allow wrist ROM. Patient to refrain from strengthening x 2 weeks per protocol. Patient will benefit from continued occupational therapy to increase functional AROM, progress to strengthening The rationale for today s treatment was explained to the patient. Verbal cues were provided for correct form with all exercises. Advised patient to continue with Home Exercise Program (HEP). Goals General/Ortho Patient will be independent with HEP. (Progressing) Start: 07/11/22 Expected End: 09/07/22 Patient will report decreased pain at 2/10 in left thumb to be able to complete HEP, therapy ROM. (Progressing) Start: 07/11/22 Expected End: 09/07/22 Patient will increase ROM of left thumb to be able to full MP and IP AROM WNL, progress to CMC ROM when initiation at 6 weeks post op to gain full AROM for opposition to base of small of little finger (Progressing) Start: 07/11/22 Expected End: 09/07/22 Patient will adhere to prescribed precautions/restrictions for restrictions, splint wear and non weight bearing to protect healing structures (Progressing) Start: 07/11/22 Expected End: 09/07/22 Plan Plan for next session: ROM, STM Treatment Therapeutic Exercise # of Activities: 4 Therapeutic Exercise Activity 1: ROM of thumb Activity 1 Comment: MP and IP ROM with initiation of CMC motion Therapeutic Exercise Activity 2: wrist ROM Activity 2 Comment: AROM/AAROM wrist flexion and extension Therapeutic Exercise Acitivity 3: finger flexion/extension Activity 3 Comment: full active finger flexion and extension IASTM Location: left thumb MP joint, dorsal thumb and incisional scar Comments: tolerated well, improved MP flexion achieved Splinting Location: left thumb Type: thumb spica modified to hand based Splinting: Modification Time Entry Total Treatment Time Start Time: 929 Stop Time: 1000 Time Calculation (min): 30 min OT Therapeutic Procedures Time Entry Therapeutic Exercise Time Entry: 18 Manual Therapy Time Entry: 6 Orthotic/Prosthetic Mgmt and/or Training (Subs Encounter) Time Entry: 5 Rosa Jameson OT documented in this [facility]05-08-2023 History of Present illness Narrative* Leonides Baker MD - 08/15/2022 8:44 AM EDT Orion Dumont is a 71 year old who presents today for Patient presents with: Cardiology Follow Up : Medication review INTERVAl HPI PAST MEDICAL HISTORY Diagnosis Date 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 Currently chest pain free; However, there is a high chance of recurrence since treatment has been on hold. Giving him steroid might actually put him at more risk of re bleeding. NSAID'S notan option for now. Plan: Consider Colchicine. If patient is to be restarted on AC, Colchicine has DVT (deep venous thrombosis) (HCC) 01/12/2010 S/P IVC filter, occurred post-op, on anticoagulation (for a fib) Eating disorder, unspecified 07/01/2009 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 Essential hypertension, benign Fatty liver 11-03-09 by us Gall stones, common bile duct 12/07/2013 Generalized anxiety disorder 07/01/2009 GI bleed 06/29/12 Hyperlipidemia 08/25/2020 Iron deficiency anemia 08/02/2012 Major depressive disorder, recurrent episode, moderate (HCC) 07/01/2009 Morbid obesity (HCC) 04-21-09 stated BMI 51.1 Ht: 75 Wt: 410 lbs MSSA (methicillin susceptible Staphylococcus aureus) infection 07/03/2012 Hx: MSSA infection of serosal fluids collection in L chest wall. S/P I/D on 06/19. On IV oxacillin till and then dc'ed on 06/23 with a 10 day course of Dicloxacillin. 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 Plan: Monitor H&H Q8H, transfuse as necessary, keep Hb>8 Consult IR for further intervention Protonix gtt for now, will switch to protonix 40mg bid when Hb is stable after 48-72 salma UTI (lower urinary tract infection) Varicose veins 2010 PAST SURGICAL HISTORY Procedure Laterality Date ARTHRP ACETBLR/PROX FEM PROSTC AGRFT/ALGRFT 1993 left CARDIOVERSION CHOLECYSTECTOMY 11/18/2013 COLONOSCOPY GEN ANES 04/20/2020 CYSTO BLADDER W/URETERAL CATHETERIZATION 01/30/2010 CYSTOSCOPY, RETROPYELOGRAM performed by RADHA OLIVAREZ at OR CYSTO W/INSERT URETERAL STENT 01/30/2010 CYSTOSCOPY, INSERTION STENT URETERAL J performed by RADHA OLIVAREZ at OR CYSTOURETHROSCOPY 06/16/2017 Cystoscopy DISKECTOMY, LUMBAR, SINGLE SP 1982 L4-5 EGD 04/20/2020 GASTRIC BYPASS HX 2009 w/ complications. NEPHROLITHOTOMY REMOVAL STAGE 1 05/02/2012 PAST SURGICAL HISTORY OF 1967 left hip pin PAST SURGICAL HISTORY OF 04/23/2012 heart surgery PAST SURGICAL HISTORY OF 06/04/2012 stitches for broken blood vesel in rectum REDUCE BOWEL OBSTRUCTION 06/24/2010 Performed by RAN REPAIR RETINAL DETACHMENT SCLERAL BUCKLING 10/2009 od Scleral Buckle REPAIR RETINAL DETACHMENT SCLERAL BUCKLING 08/05/2013 SB (Scleral Buckle)/ cyro os REVISE MEDIAN N/CARPAL TUNNEL SURG Left 10/2020 VITRECTOMY MECHANICAL PARS PLANA 09/03/2013 PPV / EL / gas OS FAMILY HISTORY Problem Relation Age of Onset Ischemic Heart Disease Father Diabetes Mother other (Other) Mother Diabetes Sister Cataract Sister Detached Retina Sister SOCIAL HISTORY Social History Tobacco Use Smoking status: Never Smokeless tobacco: Never Substance Use Topics Alcohol use: No Drug use: No Rivaroxaban, Sulfa (Sulfonamide Antibiotics), Adhesive Tape (Rosins), Wool, Wool, and Diclofenac Sodium Current Outpatient Medications Medication Sig lamoTRIgine (LAMICTAL) 100 mg tablet TAKE 1 TABLET BY MOUTH DAILY apixaban (ELIQUIS) 5 mg tab(s) Take 1 tablet by mouth twice daily. busPIRone (BUSPAR) 15 mg tablet Take 1 tablet by mouth twice daily. sertraline (ZOLOFT) 100 mg tablet Take 1 tablet by mouth once daily. bisoprolol (ZEBETA) 5 mg tablet Take 1 tablet by mouth once daily. digoxin (LANOXIN) 250 mcg (0.25 mg) tablet Take 1 tablet by mouth once daily. fludrocortisone (FLORINEF) 0.1 mg tablet Take 1 tablet by mouth once daily. pantoprazole DR (PROTONIX) 40 mg tablet Take 1 tablet by mouth daily before breakfast. Take on empty stomach, 1/2 hr before meal. atorvastatin (LIPITOR) 20 mg tablet Take 1 tablet by mouth once daily. cholecalciferol (VITAMIN D3) 50 mcg (2,000 unit) tablet Take 1 tablet by mouth daily with dinner. calcium citrate-vitamin D3 (CITRACAL PLUS D) 315 mg-5 mcg (200 unit) tab Take 1 tablet by mouth twice daily with meals. With each meal. [id number]-Fish Oil [phone] [id number] cap Take 600 mg by mouth once daily. (Patient taking differently: Take 600 mg by mouth twice daily.) pyridoxine (VITAMIN B-6) 100 mg tablet Take 2 tablets by mouth twice daily. docusate sodium 100 mg capsule Take 1 capsule by mouth twice daily as needed for Constipation. No current facility-administered medications for this visit. Specialty Problems Cardiology Problems Varicose veins of both legs with edema Orthostatic hypotension Atrial fibrillation with RVR (HCC) Hyperlipidemia LABS: Component Latest Ref Rng & Units 03/10/2022 05/10/2022 Protein, Total 6.3 - 8.0 g/dL 6.5 Albumin 3.9 - 4.9 g/dL 4.2 Calcium 8.5 - 10.2 mg/dL 10.2 Bilirubin, Total 0.2 - 1.3 mg/dL 0.6 Alkaline Phosphatase 38 - 113 U/L 64 AST 14 - 40 U/L 40 ALT 10 - 54 U/L 42 Glucose 74 - 99 mg/dL 94 BUN 9 - 24 mg/dL 20 Creatinine 0.73 - 1.22 mg/dL 0.93 Sodium 136 - 144 mmol/L 141 Potassium 3.7 - 5.1 mmol/L 4.8 Chloride 97 - 105 mmol/L 104 CO2 22 - 30 mmol/L 24 Anion Gap 9 - 18 mmol/L 13 eGFR >=60 mL/min/1.73m 89 WBC 3.70 - 11.00 k/uL 7.28 RBC 4.20 - 6.00 m/uL 5.06 Hemoglobin 13.0 - 17.0 g/dL 15.3 Hematocrit 39.0 - 51.0 % 46.8 MCV 80.0 - 100.0 fL 92.5 MCH 26.0 - 34.0 pg 30.2 MCHC 30.5 - 36.0 g/dL 32.7 RDW-CV 11.5 - 15.0 % 14.6 Platelet Count 150 - 400 k/uL 229 MPV 9.0 - 12.7 fL 11.3 Absolute nRBC <0.01 k/uL <0.01 Cholesterol, Total <200 mg/dL 164 Triglyceride <150 mg/dL 71 HDL Cholesterol >39 mg/dL 61 Non HDL Cholesterol <130 mg/dL 103 Fasting Time hrs 11 VLDL Cholesterol <30 mg/dL 14 TC:HDL Ratio <5.10 2.69 LDL Cholesterol <100 mg/dL 89 LDL:HDL Ratio <2.54 1.46 Digoxin 0.6 - 1.2 ng/mL 0.5 (L) Vitamin D 25 Hydroxy 31.0 - 80.0 ng/mL 61.4 CARDIAC TESTING: Echocardiography Report: Transthoracic Echo [facility] Date of service: 05/09/2022 10:36:00 AM PCT Indication: Atrial fibrillation Technologist: Courtney Knutson RDCS Interpreting physician: German Dias MD PATIENT: Name: MR. ORION DUMONT : 1950 Age: 71 years Gender: M History of arrhythmia and coronary artery disease. Previous cardiovascular interventions: CABG (2009) Mini maze (2012) Primary rhythm: atrial fib. Height: 185.42 cm BSA: 2.33 m Weight: 105.69 kg BMI: 30.7 kg/m Heart rate 79 bpm Technically difficult exam due to body habitus and lung interference. Color Doppler was utilized to interrogate the cardiac valves assessed and spectral Doppler was utilized to determine the flow velocities and pressure gradients reported in this exam. MEASUREMENTS: Value Indexed Normal Max aortic dimension 3.3 cm Ao < 3.8 Left atrial volume 70 ml (4ch A-L) 30 ml/m Nina <= 34 LV ID (diastole) 4.0 cm (2D) 1.71 cm/m LV ID (systole) 2.7 cm (2D) 1.15 cm/m IVS, leaflet tips 1.0 cm (2D) Posterior wall thickness 1.1 cm (2D) Left ventricular mass 130 g (2D) 56 g/m LV end diastolic volume 85 ml (2D 4-ch.) 36.4 ml/m 34<=EDVi<75 Ejection Fraction 50 % (visual est.) EF > 52 FINDINGS: LEFT VENTRICLE The left ventricle is normal in size. Left ventricular systolic function is mildly decreased. Left ventricular diastolic function was not evaluated due to AF. Wall Motion: All scored segments are normal. RIGHT VENTRICLE The right ventricle is dilated. Right ventricular systolic function is mildly decreased. RV systolic tissue Doppler velocity is 7.0 cm/s. Estimated right ventricular systolic pressure is 23 mmHg consistent with normal pulmonary artery pressures. Estimated right atrial pressure is 3 mmHg (although IVC not seen). LEFT ATRIUM The left atrial cavity is normal in size. RIGHT ATRIUM Unable to reliably measure RA volume due to technical limitations. MITRAL VALVE The mitral valve leaflets are structurally normal. There is no mitral valve regurgitation. TRICUSPID VALVE The tricuspid valve leaflets are structurally normal. There is trace (trace - 1+) tricuspid valve regurgitation. AORTIC VALVE The aortic valve cusps are structurally normal. There is no aortic valve regurgitation. The peak gradient is 3 mmHg (peak velocity = 91.5 cm/s). PULMONIC VALVE The pulmonic valve cusps are structurally normal. There is no pulmonic valve regurgitation. AORTA The visualized aorta is normal in size. Measurements - Mid ascending aorta 3.3 cm. INTERVENTRICULAR SEPTUM There is abnormal motion of the interventricular septum secondary to prior cardiac surgery. PERICARDIUM There is no pericardial effusion. There is an epicardial fat pad. Impression CONCLUSIONS: - Technically difficult exam due to body habitus and lung interference. - Exam indication: Atrial fibrillation - The left ventricle is normal in size. Left ventricular systolic function is mildly decreased. EF = 50 5% (visual est.) Left ventricular diastolic function was not evaluated due to AF. - The right ventricle is dilated. Right ventricular systolic function is mildly decreased. - There are no significant valvular abnormalities. - Exam was compared with the prior echocardiographic exam performed on 12/10/2020, no significant change. Last 3 Encounter BP Readings: Date: BP: 06/13/2022 96/64 05/18/2022 116/68 05/09/2022 98/64 Last 3 Encounter Pulse Readings: Date: Pulse: 06/13/2022 72 05/18/2022 80 05/09/2022 60 Last 3 Encounter Wt Readings: Date: Wt: 06/13/2022 99.3 kg (219 lb) 05/18/2022 101.6 kg (224 lb) 05/09/2022 98.3 kg (216 lb 12.8 oz) PHYSICAL EXAMINATION: BP 124/80 Wt 99.3 kg (219 lb) BMI 29.09 kg/m Body mass index is 29.09 kg/m . GENERAL: Alert, oriented., Well appearing. No jaundice, anemia, clubbing, or cyanosis. ENT:Hearing normal, no speech or swallowing difficulties. No epistaxix NECK: No JVD, masses, or thyromegaly. Good carotid upstrokes. No carotid bruit. No lymphadenopathy. CARDIAC: AF controlled VR, Normal S1 and S2. No murmur, rub or gallop. No parasternal heave or thrill. [place] not displaced. CHEST: Chest clear to auscultation. ABDOMEN: Soft, nontender, with no obvious organomegaly or masses. No epigastric bruit. EXTREMITIES :Normal, Normal pulses bilaterally., No Edema, and No calf tenderness SKIN: Warm peripheries, no rash. NEURO: Awake, alert and oriented x 3, Cranial nerves II-XII grossly intact, Reflexes symmetrical, Normal gait, and No involuntary motions ASSESSMENT AND PLAN Patient is here to see us for routine follow-up. Since his last visit there have been no new complaints. His left hand is still in a cast, still has chronic pain reasonably well controlled with Tylenol. From a cardiac standpoint he remains in chronic atrial fibrillation with a controlled ventricular rate. There is no known significant underlying coronary disease or valvular disease. His last echo had shown a normal ejection fraction. Patient is not interested in a rhythm control strategy at present. Clinically there are no murmurs or gallops, no evidence of heart failure. Blood pressures are well controlled. He is euthyroid. He is on chronic anticoagulation. Lungs are clear, sleep apnea seems to be well controlled. We will continue current medications including long-term anticoagulation which he is tolerating well. No further cardiac work-up needs to be done at this time, he would like to be seen in the office in February of this year and we will arrange that visit. If he has new problems before that he will let us know. Leonides Baker MD [facility] Nurse Note* Adin Owens MA - 08/15/2022 8:44 AM EDT Orion presents today for Routine visit.. Medication Refills needed today: No Pharmacy has been captured? 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 Reason for referral/Mechanism of injury: s/p Left thumb carpometacarpal arthroplasty and intrinsic release, partial excision trapezoid, DOS 07/01/2022 Precautions/Red Flags: Yes UE weight bearing status: Non-weight bearing thru left hand post-surgical precautions: No CMC ROM until 6 weeks post op prosthesis/orthosis used: custom thumb spica splint Patient Preferences: Orion will transfer to [place] location due to proximity to home in [place] Subjective Pain remains high 6-10/17 Compliance with HEP: Yes Objective THUMB LEFT Thumb CMC (nl 45 /60 ) MCP (nl 10 H/60 ) IP (nl 15 H/80 ) Palmar Abduction 40 Extension 0 10 hyperextension Radial Abduction 35 Flexion 25 35 passive 44 *(Passive values entered only if different than active; otherwise = AROM) Assessment Skilled occupational therapy interventions utilized to improve patient s impairments and work towards established goals. Patient response to treatment: Patient continues to have higher than expected pain, difficulty completing exercises at home to full potential MP flexion. Passive MP flexion improves within treatment session, patient encouraged to utilize heat modality at home to assist. Follow- up with physician 08/11/22 Patient will benefit from continued occupational therapy to progress to CMC motion, splint modification and future progression to strengthening and functional integration The rationale for today s treatment was explained to the patient. Verbal cues were provided for correct form with all exercises. Advised patient to continue with Home Exercise Program (HEP). Goals General/Ortho Patient will be independent with HEP. (Progressing) Start: 07/11/22 Expected End: 09/07/22 Patient will report decreased pain at 2/10 in left thumb to be able to complete HEP, therapy ROM. (Not Progressing) Start: 07/11/22 Expected End: 09/07/22 Patient will increase ROM of left thumb to be able to full MP and IP AROM WNL, progress to CMC ROM when initiation at 6 weeks post op to gain full AROM for opposition to base of small of little finger (Progressing) Start: 07/11/22 Expected End: 09/07/22 Patient will adhere to prescribed precautions/restrictions for restrictions, splint wear and non weight bearing to protect healing structures (Progressing) Start: 07/11/22 Expected End: 09/07/22 Plan Plan for next session: progress to CMC ROM and splint modification if cleared by physician, pain reduction Treatment Therapeutic Exercise # of Activities: 4 Therapeutic Exercise Activity 1: ROM of thumb Activity 1 Comment: MP and IP ROM with manual stabliization of CMC Therapeutic Exercise Activity 2: wrist ROM Activity 2 Comment: AROM/AAROM wrist flexionand extension Therapeutic Exercise Acitivity 3: finger flexion/extension Activity 3 Comment: full active finger flexion and extension Therapeutic Exercise Activity 4: baseline measurements for CMC motion IASTM Location: left thumb MP joint, dorsal thumb and incisional scar Comments: tolerated well, improved MP flexion achieved Modalities Moist Heat (parameters): applied to radial left hand pre-exercise 5 minutes Time Entry Total Treatment Time Start Time: 829 Stop Time: 0900 Time Calculation (min): 30 min OT Modalities Time Entry Hot/Cold Pack Time Entry: 5 UV Treatment Time Entry: 6 OT Therapeutic Procedures Time Entry Therapeutic Exercise Time Entry: 18 Rosa Jameson OT documented in this [facility]04-26-2023 History of Present illness Narrative* Rosa Jameson OT - 08/03/2022 11:30 AM EDT [facility] [place] AT [facility] [address] [place] [address] Dept: [phone] Dept OCCUPATIONAL THERAPY RE-EVALUATION Patient Name: Orion Dumont : 1950 Date of Service: 08/03/2022 Referring Provider: Berenice Hanks PA-C Diagnosis: Arthritis of kzeymwkb-ioagmalkn-hgfcgmxed joint of left hand Reason for referral/Mechanism of injury: s/p Left thumb carpometacarpal arthroplasty and intrinsic release, partial excision trapezoid, DOS 07/01/2022 Precautions/Red Flags: Yes UE weight bearing status: Non-weight bearing thru left hand post-surgical precautions: No CMC ROM until 6 weeks post op prosthesis/orthosis used: custom thumb spica splint Patient Preferences: Orion will transfer to [place] location due to proximity to home in [place] Subjective General Comments: Pain is somewhat better but remains high, sharp shooting pain persistent randomlyin ulnar side of thumb Pain: Current: 6/10 Best: 5/10 Worst: 8/10 Current Level of Function: no permitted use of left hand for weight bearing or functional use, patient does admit to using left fingers for grasp and release of light objects and self-care tasks Patient s Stated Goal: reduce pain Outcome Measures QuickDASH: no change due to precautions/restrictions Objective THUMB LEFT Thumb CMC (nl 45 /60 ) MCP (nl 10 H/60 ) IP (nl 15 H/80 ) Palmar Abduction Not measured Extension -5 0 Radial Abduction Not measured Flexion 15 40 passive 50 *(Passive values entered only if different than active; otherwise = AROM) Assessment Patient presents with significant stiffness of left thumb MP joint which did improve with AAROM/PROM . Patient reports high pain with ROM and demonstrates limited active follow thru of ROM after stretching with therapist. Rehab Potential: Good Goals Active General/Ortho Patient will be independent with HEP. (Progressing) Start: 07/11/22 Expected End: 09/07/22 Patient will report decreased pain at 2/10 in left thumb to be able to complete HEP, therapy ROM. (Progressing) Start: 07/11/22 Expected End: 09/07/22 Patient will increase ROM of left thumb to be able to full MP and IP AROM WNL, progress to CMC ROM when initiation at 6 weeks post op to gain full AROM for opposition to base of small of little finger (Progressing) Start: 07/11/22 Expected End: 09/07/22 Patient will demonstrate independence with provided splint education. for don/doff, wearing schedule, care of splinting (Progressing) Start: 07/11/22 Expected End: 09/07/22 Patient will adhere to prescribed precautions/restrictions for restrictions, splint wear and non weight bearing to protect healing structures (Progressing) Start: 07/11/22 Expected End: 09/07/22 Plan Frequency and Duration: 1/wk for 4 weeks Therapeutic Contents: client education, home exercise program, manual therapy techniques, therapeutic activities, and therapeutic exercise Plan for next session: aggressive ROM of MP joint, STM Risks and benefits were discussed with the patient and/or family, and the patient and/or family participated with the plan of care and agrees. Treatment Therapeutic Exercise # of Activities: 3 Therapeutic Exercise Activity 1: ROM of thumb Activity 1 Comment: MP and IP ROM with manual stabliization of CMC Therapeutic Exercise Activity 2: wrist ROM Activity 2 Comment: AROM/AAROM wrist flexionand extension Therapeutic Exercise Acitivity 3: finger flexion/extension Activity 3 Comment: full active finger flexion and extension IASTM Location: left thumb MP joint, dorsal thumb and incisional scar Comments: tolerated well, improved MP flexion achieved Time Entry Total Treatment Time Start Time: 1130 Stop Time: 1200 Time Calculation (min): 30 min OT Therapeutic Procedures Time Entry Therapeutic Exercise Time Entry: 21 Manual Therapy Time Entry: 8 Rosa Jameson OT documented in this [place] [address]-12-2023 History of Present illness Narrative* Rosa Jameson OT - 07/20/2022 9:00 AM EDT Images from the original note were not included. [facility] AT [place] [address] [place] [address] Dept: [phone] Dept OCCUPATIONAL THERAPY TREATMENT Patient Name: Orion Dumont : 1950 Date of Service: 07/20/2022 Referring Provider: Berenice Hanks PA-C Diagnosis: Arthritis of qzxlngzr-vpajowsdu-iucyihdee joint of left hand Reason for referral/Mechanism of injury: s/p Left thumb carpometacarpal arthroplasty and intrinsic release, partial excision trapezoid, DOS 07/01/2022 Precautions/Red Flags: Yes UE weight bearing status: Non-weight bearing thru left hand post-surgical precautions: No CMC ROM until 6 weeks post op prosthesis/orthosis used: custom thumb spica splint Patient Preferences: Orion will transfer to [facility] due to proximity to home in [place] Subjective Pain remains hihg, 09/17 continues to take pain medication regularly Compliance with HEP: patient reports frequent exercise as prescribed however feels he is not pushing himself into ROM as we do in therapy Objective THUMB LEFT Thumb CMC (nl 45 /60 ) MCP (nl 10 H/60 ) IP (nl 15 H/80 ) Palmar Abduction Not measured Extension 0 0 Radial Abduction Not measured Flexion 20 active 35 passive 45 *(Passive values entered only if different than active; otherwise = AROM) WRIST ROM Left Flexion 40- Extension 45 Assessment Skilled occupational therapy interventions utilized to improve patient s impairments and work towards established goals. Patient response to treatment: Patient with higher than expected pain, some improvement within treatment session with provided STM and ROM. Significant stiffness of MP joint in flexion. Remaining digits flex to palm, wrist ROM WFL. Patient will benefit from continued occupational therapy to optimize thumb ROM and progress to strengthening per protocol. The rationale for today s treatment was explained to the patient. Verbal cues were provided for correct form with all exercises. Advised patient to continue with Home Exercise Program (HEP). Goals General/Ortho Patient will be independent with HEP. (Progressing) Start: 07/11/22 Expected End: 08/10/22 Patient will report decreased pain at 2/10 in left thumb to be able to complete HEP, therapy ROM. (Not Progressing) Start: 07/11/22 Expected End: 08/10/22 Patient will increase ROM of left thumb to be able to full MP and IP AROM WNL, progress to CMC ROM when initiation at 6 weeks post op to gain full AROM for opposition to base of small of little finger (Progressing) Start: 07/11/22 Expected End: 08/10/22 Patient will demonstrate independence with provided splint education. for don/doff, wearing schedule, care of splinting (Progressing) Start: 07/11/22 Expected End: 08/10/22 Patient will adhere to prescribed precautions/restrictions for restrictions, splint wear and non weight bearing to protect healing structures (Progressing) Start: 07/11/22 Expected End: 08/10/22 Plan Plan for next session: MP and IP ROM, wrist ROM, STM Treatment Therapeutic Exercise # of Activities: 3 Therapeutic Exercise Activity 1: ROM of thumb Activity 1 Comment: MP and IP ROM with manual stabliization of CMC Therapeutic Exercise Activity 2: wrist ROM Activity 2 Comment: AROM/AAROM wrist flexionand extension Therapeutic Exercise Acitivity 3: finger flexion/extension Activity 3 Comment: full active finger flexion and extension IASTM Location: left thumb MP joint, dorsal thumb and incisional scar Comments: tolerated well, improved MP flexion achieved Time Entry Total Treatment Time Start Time: 929 Stop Time: 1000 Time Calculation (min): 30 min OT Therapeutic Procedures Time Entry Therapeutic Exercise Time Entry: 18 Manual Therapy Time Entry: 10 Rosa Jameson OT documented in this [facility]04-03-2023 History of Present illness Narrative* Rosa Jameson OT - 07/11/2022 11:00 AM EDT Images from the original note were not included. [facility] THERAPY AT [address] [facility] [address] Dept: [phone] Dept OCCUPATIONAL THERAPY EVALUATION Patient Name: Orion Dumont : 1950 Date of Service: 07/11/2022 Referring Provider: Berenice Hanks PA-C Diagnosis: Arthritis of kyedketv-ckrpiwgcy-bzuisizmp joint of left hand General Information Reason for referral/Mechanism of injury: s/p Left thumb carpometacarpal arthroplasty and intrinsic release, partial excision trapezoid, DOS 07/01/2022 Precautions/Red Flags: Yes UE weight bearing status: Non-weight bearing thru left hand post-surgical precautions: No CMC ROM until 6 weeks post op prosthesis/orthosis used: custom thumb spica splint Patient Preferences: Orion will transfer to [facility] due to proximity to home in [place] Fall Risk: No Work status: retired Home Setup: shares home with siblings who are able to assist as necessary PMHX: Orion has a past medical history of Atrial fibrillation (CMS/HCC) (HCC), Delayed emergence from general anesthesia, GERD (gastroesophageal reflux disease), History of transfusion, deep venous thrombosis, Hypotension, and Sleep apnea. PSHX: Orion has a past surgical history that includes IVC filter retrieval (Right); Hip Arthroplasty; Carpal tunnel release; Rotator cuff repair; Tonsillectomy; Appendectomy; Cholecystectomy; Colonoscopy; Upper gastrointestinal endoscopy; Gastric bypass; and Other surgical history (Left, 07/01/2022). Have you experienced any anxiety, depression, thoughts of self-harm or suicidal thoughts?: No Physician follow-up appointment?: Yes Subjective Chief Complaint: thumb pain, stiffness, difficulty sleeping due to pain Pain: Current: 5/10 Best: 5/10 Worst: 9/10 Symptoms Aggravated by: pain with ROM, random pain without motion Symptoms Relieved by: medication Prior Level of Function: independent in basic care but progressive pain over time Current Level of Function: unable to use left hand secondary to precautions, difficulty with clothing management, requires assist for opening packages, cutting foods, Patient s Stated Goal: regain use of left hand without pain Outcome Measures QuickDASH: 100 Objective Hand Dominance: right Skin Integrity: well approximated incision, no drainage or signs of infection Edema: mild edema surrounding left thumb as expected Palpation: non tender to palpation ROM: THUMB LEFT Thumb CMC (nl 45 /60 ) MCP (nl 10 H/60 ) IP (nl 15 H/80 ) Palmar Abduction Not measured Extension 0 0 Radial Abduction Not measured Flexion 25 30 *(Passive values entered only if different than active; otherwise = AROM) WRIST ROM Left Flexion 55 Extension 50 Strength: Not assessed due to precautions Sensation: Intact to light touch, denies paresthesia Assessment Orion Dumont is a 71 y.o. patient with chief complaint of pain, stiffness, who presents with signsand symptoms consistent with post operative CMC arthroplasty with partial excision of trapeium and intrinsic release. The patient would benefit from skilled occupational therapy to address decreased strength, decreased range of motion, decreased skin integrity, and pain. Evaluation complexity is low secondary to: patient has 3 or more personal factors and/or comorbidities that will affect plan of care, therapy will be addressing 3 or more elements, and clinical presentation is stable. Body Systems Affected: musculoskeletal Rehab Potential: Good Learning Preferences: demonstration, performance, and printed materials Barriers to Rehab: comorbidities Goals General/Ortho Patient will be independent with HEP. Start: 07/11/22 Expected End: 08/10/22 Patient will report decreased pain at 2/10 in left thumb to be able to complete HEP, therapy ROM. Start: 07/11/22 Expected End: 08/10/22 Patient will increase ROM of left thumb to be able to full MP and IP AROM WNL, progress to CMC ROM when initiation at 6 weeks post op to gain full AROM for opposition to base of small of little finger Start: 07/11/22 Expected End: 08/10/22 Patient will demonstrate independence with provided splint education. for don/doff, wearing schedule, care of splinting Start: 07/11/22 Expected End: 08/10/22 Patient will adhere to prescribed precautions/restrictions for restrictions, splint wear and non weight bearing to protect healing structures Start: 07/11/22 Expected End: 08/10/22 Plan Frequency and Duration: 1/wk for 4 weeks, progress to 2/wk for 4 weeks Therapeutic Contents: client education, home exercise program, manual therapy techniques, therapeutic activities, therapeutic exercise, and splinting Plan for next session: splint check, MP and IP thumb ROM Risks and benefits were discussed with the patient and/or family, and the patient and/or family participated with the plan of care and agrees. Treatment Custom required at initial evaluation Therapeutic Activity # of Activities: 1 Therapeutic Activity 1: HEP education Activity 1 Comment: precautions, restriction reviewed, HEP for thumb MP and IP only ROM with manualblocking to prevent CMC ROM, wrist ROM Splinting Location: left thumb Type: forearm based thumb spica Splinting: Fabrication Splinting Education: Fitting, Donning, [place], Wear schedule, Precautions Time Entry Total Treatment Time Start Time: 1100 Stop Time: 1150 Time Calculation (min): 50 min OT Evaluation Time Entry OT Evaluation (Low) Time Entry: 20 OT Therapeutic Procedures Time Entry Therapeutic Activity Time Entry: 8 Application of Splint Time Entry: 20 Rosa Jameson OT documented in this [facility]04-03-2023 History of Present illness Narrative* Berenice Hanks PA-C - 07/11/2022 10:00 AM EDT Subjective: Orion is approximately 10 day(s) s/p Left thumb carpometacarpal arthroplasty and intrinsic release,partial excision trapezoid, DOS 07/01/2022. Pain is moderate. He is taking Tylenol for pain relief. He reports improvement in pain post- operatively. He denies numbness and tingling. The patient deniesdrainage from his incision. Patient reports he has been doing well since his surgery. He reports moderate pain he is taking Tylenol for pain control. He denies numbness and tingling. He reports intact incision without erythema edema drainage or wound separation. Denies fevers and chills. He has been compliant with splint and nonweightbearing restriction. He reports mild stiffness after coming out of the splint. Objective: Temp 36.4 C (97.6 F) Ht 6' 1 (1.854 m) Wt 221 lb (100 kg) BMI 29.16 kg/m Left Upper Extremity Skin: Incision(s) is healing appropriately. No drainage. No surrounding erythema, no warmth. No wound separation. Edema: Minimal surrounding edema. Palpation: non tender to palpation throughout ROM: LEFT Thumb CMC (nl 45 /60 ) MCP (nl 10 H/60 ) IP (nl 15 H/80 ) Palmar Abduction Not measured Extension Not measured Not measured Radial Abduction Not measured Flexion Not measured Not measured *(Passive values entered only if different than active; otherwise = AROM) Remaining fingers flex to palm and fully extend. Active wrist range of motion: 50 flexion/ 55 extension. Pronation full/ Supination full. Motor: Intact in the hand - able to fire AIN, PIN, and Ulnar nerves Sensation: to light touch is normal in the median, ulnar, and radial nerve distributions Perfusion: Brisk capillary refill to all digits with 2+ radial pulse. XRay: 3V Left hand from today show status post trapeziectomy with the first metacarpal maintaining alignment at the carpometacarpal joint level Assessment Diagnosis Plan 1. Arthritis of wvabswlz-wcnqyslor-jriuuseot joint of left hand Plan I would like Orion to be placed back into the postoperative thumb spica splint temporarily until the appointment with occupational therapy when the patient will be re-wrapped in his post operative splint until he can be fitted with a custom forearm-based thumb opponens splint. Finger range of motion was encouraged within the confines of the splint. The splint is to be worn at all times but can beremoved for therapy exercises and hygiene purposes. He can begin ROM of the thumb IP and MCP jointsimmediately but is to refrain from CMC range of motion until no sooner than 6 weeks from the date of surgery. This was demonstrated to the patient today in the office with good understanding. The patient is to remain nonweightbearing through the wrist and hand. Signs and symptoms of infection were discussed with the patient. Expected post operative recovery course was discussed with the patient. his questions were answered. I would like the patient to follow-up with Dr. Smith in 4 weeks. He is comfortable with the plan. Immobilization: Custom OT splint: Rx given to have forearm-based thumb opponens splint made to be worn at all times when not performing supervised exercises Weight Bearing: NWB Rehabilitation: OT/PT Rx given: To follow protocol. Dr. Smith will see Orion mclain in 4 weeks to see how he is doing. Orion knows to call the office with any questions or concerns in the interim. Future ImaginV Left Hand Sutures were removed in office today. dry dressing applied to left wrist. Patient tolerated well with no concerns. Postoperative thumb spica splint was reapplied to left wrist. Patient was educated on proper use and application and had no further questions. Patient was instructed to call the office with any concerns or questions regarding DME. Applied by: [facility] Berenice Hanks PA-C to Dr. Toya Smith Orthopaedic Surgery Hand and Upper Extremity (Please note that portions of this note may have been completed with a voice recognition program. Efforts were made to edit the dictations but occasionally words are mis-transcribed.) Thumb CMC Arthroplasty - OT Protocol Toya Smith MD POST OPERATIVE WEEK OBJECTIVES Post Op Visit #1 Forearm based opponens splint Splint worn at all times except when bathing ROM fingers, thumb MCP and IP joints, wrist, elbow, & shoulder. No motion thumb CMC Strict non weight bearing through thumb Week 2 Hand therapy 1-2 times per week Gentle ROM exercises of wrist, Thumb MCP and IP joints. No motion thumb CMC Start scar massage/Edema control Continue use of splint when not working ROM Strict non weight bearing through thumb Week 6 (Post Op Visit #2) Hand based opponens splint Hand therapy 2 times per week Gentle AROM and PROM CMC Continue scar massage Strict non weight bearing through thumb Weeks 8 Hand therapy 2 times per week Gentle thumb strengthening Initiate home strengthening program Splint time clerk when not strengthening Week 10 Consider Comfort Cool Splint Hand therapy 1-2 time per week Continue progressive strengthening Continue use of splint when not strengthening OK to begin use of thumb for ADLs in splint Continue home exercises Week 12 (Post Op Visit #3) Start to wean out of splint OK to wear splint with ADLs if needed Home exercise program only Increase daily activities and strengthening Progress to full use as tolerated documented in this [facility]04-03-2023 Instructions* Patient Instructions* Berenice Hanks PA-C - 07/11/2022 10:00 AM EDT Thumb CMC Arthroplasty - OT Protocol Toya Smith MD POST OPERATIVE WEEK OBJECTIVES Post Op Visit #1 Forearm based opponens splint Splint worn at all times except when bathing ROM fingers, thumb MCP and IP joints, wrist, elbow, & shoulder. No motion thumb CMC Strict non weight bearing through thumb Week 2 Hand therapy 1-2 times per week Gentle ROM exercises of wrist, Thumb MCP and IP joints. No motion thumb CMC Start scar massage/Edema control Continue use of splint when not working ROM Strict non weight bearing through thumb Week 6 (Post Op Visit #2) Hand based opponens splint Hand therapy 2 times per week Gentle AROM and PROM CMC Continue scar massage Strict non weight bearing through thumb Weeks 8 Hand therapy 2 times per week Gentle thumb strengthening Initiate home strengthening program Splint time clerk when not strengthening Week 10 Consider Comfort Cool Splint Hand therapy 1-2 time per week Continue progressive strengthening Continue use of splint when not strengthening OK to begin use of thumb for ADLs in splint Continue home exercises Week 12 (Post Op Visit #3) Start to wean out of splint OK to wear splint with ADLs if needed Home exercise program only Increase daily activities and strengthening Progress to full use as tolerated documented in this [facility]SMer[facility] [id number] NotePatient: Orion Dumont Procedure Summary Date: 07/01/22 Room / Location: [address] Operating Room Anesthesia Start: 1156 Anesthesia Stop: 1318 Procedure: Left thumb carpometacarpal arthroplasty with partial excision trapezoid (Left: Wrist) Diagnosis: Primary osteoarthritis, left wrist (Left becrdwnv-Daypgyhzg-idiexbcqz joint arthritis) Surgeons: Toya Smith MD Responsible Provider: Jhony Mazariegos Jr., MD Anesthesia Type: general ASA Status: 2 Anesthesia Type: general Vitals Value Taken Time BP 101/70 07/01/22 1330 Temp 36.6 ?C (97.9 ?F) 07/01/22 1312 Pulse 87 07/01/22 1330 Resp 16 07/01/22 1330 SpO2 98 % 07/01/22 1330 Anesthesia Post Evaluation Patient location during evaluation: PACU Patient participation: complete - patient participated Level of consciousness: awake and alert Pain management: satisfactory to patient Airway patency: patent Dental Injury: no Cardiovascular status: acceptable, blood pressure returned to baseline and hemodynamically stable Respiratory status: acceptable and spontaneous ventilation Hydration status: euvolemic Nausea/Vomiting: controlled No notable events documented. Patient can be discharged once all PACU criteria has been met.[facility]03-24-2023 Telephone encounter Note* Telephone Encounter - Berenice Hanks PA-C - 07/01/2022 4:37 PM EDT New rx signed. [facility] [id number] Miscellaneous Notes* Telephone Encounter - Berenice Hanks PA-C - 07/01/2022 4:37 PM EDT New rx signed. * Telephone Encounter - Silvia Menon - 07/01/2022 4:32 PM EDT Please cancel previous script and sign new script. * Telephone Encounter - Chen Doshi - 07/01/2022 4:25 PM EDT Name of Caller: Orion Contact Reason for call: pt stated several pharmacies are out of his Rx for HYDROcodone- acetaminophen ([place]) 5-[facility], [address] [phone] Pt called that pharmacy and they do have it. DOS today Office Name: [facility] documented in this encounterSMercy Health [facility] [id number] Telephone encounter Note* Telephone Encounter - Silvia Menon - 07/01/2022 4:32 PM EDT Please cancel previous script and sign new script. [facility] [id number] Telephone encounter Note* Telephone Encounter - Chen Doshi - 07/01/2022 4:25 PM EDT Name of Caller: Orion Contact Reason for call: pt stated several pharmacies are out of his Rx for HYDROcodone- acetaminophen ([place]) 5-325 MG [facility] [address] [phone] Pt called that pharmacy and they do have it. DOS today Office Name: [facility] [id number] NotePatient: Orion Tim Procedure Summary Date: 07/01/22 Room / Location: [address] Operating Room Anesthesia Start: 1156 Anesthesia Stop: 1318 Procedure: Left thumb carpometacarpal arthroplasty with partial excision trapezoid (Left: Wrist) Diagnosis: Primary osteoarthritis, left wrist (Left lvlvwwqq-Wvyaotbjx-wbmvvgyvj joint arthritis) Surgeons: Toya Smith MD Responsible Provider: Jhony Mazariegos Jr., MD Anesthesia Type: general ASA Status: 2 Anesthesia Type: general Vitals Value Taken Time BP 112/76 07/01/22 1312 Temp 36.6 ?C (97.9 ?F) 07/01/22 1312 Pulse 62 07/01/22 1312 Resp 16 07/01/22 1312 SpO2 99 % 07/01/22 1312 Anesthesia Post Evaluation Patient location during evaluation: PACU Patient participation: complete - patient participated Level of consciousness: awake and alert Pain management: satisfactory to patient Multimodal analgesia pain management approach Airway patency: patent Two or more strategies used to mitigate risk of obstructive sleep apnea Cardiovascular status: acceptable and hemodynamically stable Respiratory status: acceptable Hydration status: acceptable No notable events documented. MIPS #430 PONV Patient did not receive an inhalational anesthetic (xx430 MIPS # 424 Perioperative Temperature Management Anesthesia time was 60 minutes or longer (4255F) Anesthesai administered was General (inhalational or TIVA) or Neuraxial block (X0424) At least one body temperature greater than 95.8F/35.5C achieved within the 30 mins immediately prior to or the 15 minutes immediately following anesthesia end time (G9771) MIPS #477 Multimodal Pain Management Not emergent case Patient was administered multimodal pain management (two or more drugs and/or interventions excluding systemic opioids) in the periopeartive period occurring at some time between 6 hours prior to anesthesia start time until discharged from PACU (G2149) MIPS #404 Anesthesiology Smoking Abstinence The patient is not a current smoker (e.g. cigarette, cigar, pipe, e-cigarette/vaping/marijuana) If no stop here (XX404) I completed my handoff to the receiving clinician during which we: 1. Identified the patient 2. Identified the responsible provider 3. Reviewed the pertinent medical history 4. Discussed the surgical course 5. Reviewed intra-op anesthesia management and issues during anesthesia 6. Set expectations for post-procedure period 7. Allowed opportunity for questions and acknowledgement of understanding.[facility] [id number] NoteAirway Date/Time: 07/01/2022 12:00 PM Urgency: scheduled Airway not difficult General Information and Staff Patient location during procedure: Procedural Anesthesiologist: Jhony Mazariegos Jr., MD Resident/SURVEY SUPERVISOR: Radha Sheeba, TEXTILE BROKER - SURVEY SUPERVISOR Performed: SURVEY SUPERVISOR Indications and Patient Condition Indications for airway management: anesthesia Sedation level: Asleep Preoxygenated: yes Patient position: sniffing MILS maintained throughout Mask difficulty assessment: 1 - vent by mask Final Airway Details Final airway type: supraglottic airway Successful airway: Igel Size 4 [facility] Miscellaneous Notes* Perioperative Nursing Note - Loly Mendez RN - 07/01/2022 2:00 PM EDT Pain increasing. Medication provided. Aware that he can take norco at 800 pm if needed for pain. Aware to restart Eliquis tomorrow. Discharge instructions reviewed with patient and sister. Ambulates to restroom. Assisted with getting dressed. States ready to go home * Perioperative Nursing Note - Loly Mendez RN - 07/01/2022 1:45 PM EDT Sister Cyndee brought to bedside. * Perioperative Nursing Note - Loly Mendez RN - 07/01/2022 1:12 PM EDT Received pt from OR sleeping arouses easily to name and follows commands. Report received and assessment completed. Belongings with pt. Afib noted and has history. * Op Note - Toya Smith MD - 07/01/2022 10:56 AM EDT [facility] OR [address] [facility] [address] Dept: [phone] Loc: [phone] Operative Report Patient Name: Orion Dumont Date of : 1950 Date of Surgery: 07/01/22 Location: [facility] Preoperative Diagnosis: Left Upper Extremity Thumb carpometacarpal arthritis STT arthritis Thumb intrinsic contracture Postoperative Diagnosis: Same Procedure: Left Upper Extremity Thumb CMC arthroplasty Partial excision trapezoid Thumb intrinsic release Surgeon: Toya Smith MD 1st Assist: Shital Salguero MD 2nd Assist: Berenice Hanks PA-C Implants: Arthrex FiberTak SutureTape [place] Specimens Removed: None Anesthesia: MAC and Regional Estimated Blood Loss: <5cc Antibiotics: Ancef Indications: Mr. Orion Dumont is a 71 y.o. year-old male with thumb CMC arthritis that has failed all conservative management and elected to precede with surgical intervention. I have discussed withhim, preoperatively, the complications, limitations, expectations, alternatives, and risks of surgical care which he has understood. No guarantees were given or implied. Mr. Orion Dumont has provided written informed consent to proceed. Procedure: Orion Dumont was identified in the preoperative waiting area. his operative site was initialed and consent was reviewed. Final questions were answered. Mr. Orion Dumont was brought to the operating room and placed in the supine position. All bony prominences were well padded. The aforementioned anesthesia was administered. Antibiotics were confirmed to have been given. A tourniquet was placed around the upper arm. The operative extremity was prepped and draped in the usual sterile fashion. A surgical timeout was then performed with the patient's identification, the procedure to be performed being reviewed, verification that the patient had received preoperative antibiotics if in dicated, and verification of the correct surgical side. The patient's ASA was verified by the nursecirculator and the anesthesia staff. Fire risk was assessed. An esmarch bandage was used to exsanguinate the limb and the tourniquet was inflated to 250mm Hg. A curvilinear incision was made at the base of the thumb metacarpal between the glaborous and nonglabrous skin. Sharp dissection was carried down through the skin only and then blunt dissection was carried down to the level of the thenar fascia. Care was taken to identify and protect any crossing cutaneous nerves. The thenar fascia was incised in line with the skin incision just volar to the insertion of the APL tendon. The thenar musculature was sharply elevated ulnarward from the volar capsule. A longitudinal capsulotomy was made from the base of the first metacarpal to the distal pole of the scaphoid. Full-thickness volar and dorsal capsular flaps were elevated around the trapezium taking care to stay subperiosteal with our sharp dissection. The intrinsic muscles of the thumb were released. The FCR tendon was identified and protected volarly. Fluoroscopy was used to confirm correct identification of the trapezium. The trapezium was removed piecmeal using a rongeur. Live fluoroscopyconfirmed adequate resection of the trapezium and all loose bodies. The scapho-trapezoid was inspected and found to be with arthritic change. 2mm of the trapezoid articular surface was resected usingan small osteotome to ensure no residual bony contact between the scaphoid and trapezoid articulation. Using fluoroscopic guidance a guidewire was placed obliquely from the radial base of the second metacarpal through the ulnar cortex just distal to the metaphyseal flare. A threaded guide was placed over the guidewire and the guidewire removed. A drill bit was then passed along the same drill tunnel followed by an Arthrex fiber tack anchor which was deployed along the ulnar cortex of the second metacarpal. Excellent fixation of the suture anchor was confirmed. 1 limb of the suture tape was then passed from deep to superficial through the dorsal CMC capsule between the APL and EPB tendons. A separate locking suture was then placed in the dorsal capsule prior to passing the suture tape from superficial to deep. The thumb metacarpal was then placed in the appropriate position and several square knots tied to complete the suture suspension. 1 limb of the suture tape was then passed through the FCR at its insertion with a locking stitch. The 2 limbs of suture tape were then again tied with several square knots to complete the APL to FCR suspension. Fluoroscopy confirmed excellent metacarpal height without subsidence during axial load. Clinical exam demonstrated full thumb CMC range of motion without impingement. The wound was mickey irrigated normal saline. Gelfoam was placed in the CMC space and the thenar fascia with the volar CMC capsule repaired directly back to the dorsal CMC capsule and APL tendon using3-0 FiberWire suture. Lidocaine with epinephrine was then used within the CMC space and the tourniquet deflated. Hemostasis was achieved with gentle compression and bipolar cautery. The skin was thenclosed in layers followed by well-padded thumb spica splint. Mr. Orion Dumont was awakened from anesthesia having tolerated the procedure without apparent complication and was taken to the recovery room in stable condition. POST OP PLAN: To be fitted with custom forearm based thumb opponens splint at 1st PO appt to then begin hand therapy per protocol (.otcmc) Outpatient Follow-up XRays: Yes, Left Hand 3V Toya Smith MD 07/01/2022 , 5:00 PM documented in this [facility]03-24-2023 Note* Perioperative Nursing Note - Loly Mendez RN - 07/01/2022 2:00 PM EDT Pain increasing. Medication provided. Aware that he can take norco at 800 pm if needed for pain. Aware to restart Eliquis tomorrow. Discharge instructions reviewed with patient and sister. Ambulates to restroom. Assisted with getting dressed. States ready to go home [id number]* Perioperative Nursing Note - Loly Mendez RN - 07/01/2022 2:00 PM EDT Pain increasing. Medication provided. Aware that he can take norco at 800 pm if needed for pain. Aware to restart Eliquis tomorrow. Discharge instructions reviewed with patient and sister. Ambulates to restroom. Assisted with getting dressed. States ready to go home [id number] Note* Perioperative Nursing Note - Loly Mendez RN - 07/01/2022 1:45 PM EDT Sister Cyndee brought to bedside. [place] [id number] Note* Perioperative Nursing Note - Loly Mendez RN - 07/01/2022 1:45 PM EDT Sister Cyndee brought to bedside. [facility]03-24-2023 NoteUpdated History & Physical The patient's History and Physical of June 24, 2022 was reviewed with the patient and I examined the patient. There was no change. The surgical site was confirmed by the patient and me. Plan: The risks, benefits, expected outcome, and alternative to the recommended procedure have been discussed with the patient. Patient understands and wants to proceed with the procedure. The patient was consented for Left thumb carpometacarpal arthroplasty with partial excision trapezoid. I had an extensive discussion with Mr. Orion Dumont regarding the natural history, etiology, and emt intermediate consequences of his condition. We discussed both operative and non operative treatment options and Orion Dumont elected to proceed with surgical intervention. I have discussed with Mr. Orion Dumont the potential complications, limitations, expectations, alternatives, and risks of the proposed surgical procedure. Risks discussed include but are not limited to the risk of infection, iatrogenic injury to normal neurovascular structures, persistent pain and disability, unsightly scar, stiffness, complex regional pain syndrome, malunion, non union, hardware failure, need for hardware removal, loss of limb, myocardial infarction, deep vein thrombosis, pulmonary embolism and even . We also discussed the potential risk of COVID-19 exposure or infection and how it could alter his post operative recovery course. He has had full opportunity to ask his questions. I have answered them all to his satisfaction. I feel that Mr. Orion Dumont does understand our discussion today and he is comfortable providing informed consent for the procedure. [facility]03-24-2023 Note* Perioperative Nursing Note - Loly Mendez RN - 07/01/2022 1:12 PM EDT Received pt from OR sleeping arouses easily to name and follows commands. Report received and assessment completed. Belongings with pt. Afib noted and has history. [facility]03-24-2023 Note* Perioperative Nursing Note - Loly Mendez RN - 07/01/2022 1:12 PM EDT Received pt from OR sleeping arouses easily to name and follows commands. Report received and assessment completed. Belongings with pt. Afib noted and has history. [id number] [facility] Discharge instructions* Discharge Instructions* Berenice Hanks PA-C - 07/01/2022 11:14 AM EDT Bandage: Keep operative splint/dressing on, clean, and dry until follow up appointment in 1-2 weeks. Swelling control: Elevate and Ice for pain control. Immobilization: Encourage range of motion of index finger, long finger, ring finger, little finger, and elbow in splint/dressing with goal of touching finger tips to splint material/dressing in palm by initial post op appointment. Weightbearing: Non weight bearing in operative extremity. Nerve block for pain control: You received a local injection with lidocaine and epinephrine today. It is normal for your finger tip to look pale or white for up to 10 hours after surgery but if this persists past the 10 hours please call the office immediately. * Attachments The following attachments cannot be sent through Care Everywhere. * Moderate Sedation in Adults Discharge Instructions ([place]) documented in this [facility]03-24-2023 History and physical note* Berenice Hanks PA-C - 07/01/2022 11:12 AM EDT Updated History & Physical The patient's History and Physical of June 24, 2022 was reviewed with the patient and I examined the patient. There was no change. The surgical site was confirmed by the patient and me. Plan: The risks, benefits, expected outcome, and alternative to the recommended procedure have beendiscussed with the patient. Patient understands and wants to proceed with the procedure. The patient was consented for Left thumb carpometacarpal arthroplasty with partial excision trapezoid. I had an extensive discussion with Mr. Orion Dumont regarding the natural history, etiology, and emt intermediate consequences of his condition. We discussed both operative and non operative treatment options and Orion Dumont elected to proceed with surgical intervention. I have discussed with Mr. DavidReutter the potential complications, limitations, expectations, alternatives, and risks of the proposed surgical procedure. Risks discussed include but are not limited to the risk of infection, iatrogenic injury to normal neurovascular structures, persistent pain and disability, unsightly scar, stiffness, complex regional pain syndrome, malunion, non union, hardware failure, need for hardware removal, loss of limb, myocardial infarction, deep vein thrombosis, pulmonary embolism and even . We also discussed the potential risk of COVID-19 exposure or infection and how it could alter his post operative recovery course. He has had full opportunity to ask his questions. I have answered themall to his satisfaction. I feel that Mr. Orion Dumont does understand our discussion today and he is comfortable providing informed consent for the procedure. [facility] [id number] History and physical note* Berenice Hanks PA-C - 07/01/2022 11:12 AM EDT Updated History & Physical The patient's History and Physical of June 24, 2022 was reviewed with the patient and I examined the patient. There was no change. The surgical site was confirmed by the patient and me. Plan: The risks, benefits, expected outcome, and alternative to the recommended procedure have beendiscussed with the patient. Patient understands and wants to proceed with the procedure. The patient was consented for Left thumb carpometacarpal arthroplasty with partial excision trapezoid. I had an extensive discussion with Mr. Orion Dumont regarding the natural history, etiology, and halfway consequences of his condition. We discussed both operative and non operative treatment options and Orion Dumont elected to proceed with surgical intervention. I have discussed with Mr. Harmon the potential complications, limitations, expectations, alternatives, and risks of the proposed surgical procedure. Risks discussed include but are not limited to the risk of infection, iatrogenic injury to normal neurovascular structures, persistent pain and disability, unsightly scar, stiffness, complex regional pain syndrome, malunion, non union, hardware failure, need for hardware removal, loss of limb, myocardial infarction, deep vein thrombosis, pulmonary embolism and even . We also discussed the potential risk of COVID-19 exposure or infection and how it could alter his post operative recovery course. He has had full opportunity to ask his questions. I have answered themall to his satisfaction. I feel that Mr. Orion Dumont does understand our discussion today and he is comfortable providing informed consent for the procedure. documented in this [facility]03-24-2023 Note* Op Note - Toya Smith MD - 07/01/2022 10:56 AM EDT [facility] OR [address] [place] [address] Dept: [phone] Loc: [phone] Operative Report Patient Name: Orion Dumont Date of : 1950 Date of Surgery: 07/01/22 Location: [facility] Preoperative Diagnosis: Left Upper Extremity Thumb carpometacarpal arthritis STT arthritis Thumb intrinsic contracture Postoperative Diagnosis: Same Procedure: Left Upper Extremity Thumb CMC arthroplasty Partial excision trapezoid Thumb intrinsic release Surgeon: Toya Smith MD 1st Assist: Shital Salguero MD 2nd Assist: Berenice Hanks PA-C Implants: Arthrex FiberTak SutureTape [place] Specimens Removed: None Anesthesia: MAC and Regional Estimated Blood Loss: <5cc Antibiotics: Ancef Indications: Mr. Orion Dumont is a 71 y.o. year-old male with thumb CMC arthritis that has failed all conservative management and elected to precede with surgical intervention. I have discussed withhim, preoperatively, the complications, limitations, expectations, alternatives, and risks of surgical care which he has understood. No guarantees were given or implied. Mr. Orion Dumont has provided written informed consent to proceed. Procedure: Orion Dumont was identified in the preoperative waiting area. his operative site was initialed and consent was reviewed. Final questions were answered. Mr. Orion Dumont was brought to the operating room and placed in the supine position. All bony prominences were well padded. The aforementioned anesthesia was administered. Antibiotics were confirmed to have been given. A tourniquet was placed around the upper arm. The operative extremity was prepped and draped in the usual sterile fashion. A surgical timeout was then performed with the patient's identification, the procedure to be performed being reviewed, verification that the patient had received preoperative antibiotics if in dicated, and verification of the correct surgical side. The patient's ASA was verified by the nursecirculator and the anesthesia staff. Fire risk was assessed. An esmarch bandage was used to exsanguinate the limb and the tourniquet was inflated to 250mm Hg. A curvilinear incision was made at the base of the thumb metacarpal between the glaborous and nonglabrous skin. Sharp dissection was carried down through the skin only and then blunt dissection was carried down to the level of the thenar fascia. Care was taken to identify and protect any crossing cutaneous nerves. The thenar fascia was incised in line with the skin incision just volar to the insertion of the APL tendon. The thenar musculature was sharply elevated ulnarward from the volar capsule. A longitudinal capsulotomy was made from the base of the first metacarpal to the distal pole of the scaphoid. Full-thickness volar and dorsal capsular flaps were elevated around the trapezium taking care to stay subperiosteal with our sharp dissection. The intrinsic muscles of the thumb were released. The FCR tendon was identified and protected volarly. Fluoroscopy was used to confirm correct identification of the trapezium. The trapezium was removed piecmeal using a rongeur. Live fluoroscopyconfirmed adequate resection of the trapezium and all loose bodies. The scapho-trapezoid was inspected and found to be with arthritic change. 2mm of the trapezoid articular surface was resected usingan small osteotome to ensure no residual bony contact between the scaphoid and trapezoid articulation. Using fluoroscopic guidance a guidewire was placed obliquely from the radial base of the second metacarpal through the ulnar cortex just distal to the metaphyseal flare. A threaded guide was placed over the guidewire and the guidewire removed. A drill bit was then passed along the same drill tunnel followed by an Arthrex fiber tack anchor which was deployed along the ulnar cortex of the second metacarpal. Excellent fixation of the suture anchor was confirmed. 1 limb of the suture tape was then passed from deep to superficial through the dorsal CMC capsule between the APL and EPB tendons. A separate locking suture was then placed in the dorsal capsule prior to passing the suture tape from superficial to deep. The thumb metacarpal was then placed in the appropriate position and several square knots tied to complete the suture suspension. 1 limb of the suture tape was then passed through the FCR at its insertion with a locking stitch. The 2 limbs of suture tape were then again tied with several square knots to complete the APL to FCR suspension. Fluoroscopy confirmed excellent metacarpal height without subsidence during axial load. Clinical exam demonstrated full thumb CMC range of motion without impingement. The wound was mickey irrigated normal saline. Gelfoam was placed in the CMC space and the thenar fascia with the volar CMC capsule repaired directly back to the dorsal CMC capsule and APL tendon using3-0 FiberWire suture. Lidocaine with epinephrine was then used within the CMC space and the tourniquet deflated. Hemostasis was achieved with gentle compression and bipolar cautery. The skin was thenclosed in layers followed by well-padded thumb spica splint. Mr. Orion Dumont was awakened from anesthesia having tolerated the procedure without apparent complication and was taken to the recovery room in stable condition. POST OP PLAN: To be fitted with custom forearm based thumb opponens splint at 1st PO appt to then begin hand therapy per protocol (.otcmc) Outpatient Follow-up XRays: Yes, Left Hand 3V Toya Smith MD 07/01/2022 , 5:00 PM [facility] Work Phone: [phone]) 863-743803-24-2023 Note* Op Note - Toya Smith MD - 07/01/2022 10:56 AM EDT [facility] OR [address] [place] [address] Dept: [phone] Loc: [phone] Operative Report Patient Name: Orion Dumont Date of : 1950 Date of Surgery: 07/01/22 Location: [facility] Preoperative Diagnosis: Left Upper Extremity Thumb carpometacarpal arthritis STT arthritis Thumb intrinsic contracture Postoperative Diagnosis: Same Procedure: Left Upper Extremity Thumb CMC arthroplasty Partial excision trapezoid Thumb intrinsic release Surgeon: Toya Smith MD 1st Assist: Shital Salguero MD 2nd Assist: Berenice Hanks PA-C Implants: Arthrex FiberTak SutureTape [place] Specimens Removed: None Anesthesia: MAC and Regional Estimated Blood Loss: <5cc Antibiotics: Ancef Indications: Mr. Orion Dumont is a 71 y.o. year-old male with thumb CMC arthritis that has failed all conservative management and elected to precede with surgical intervention. I have discussed withhim, preoperatively, the complications, limitations, expectations, alternatives, and risks of surgical care which he has understood. No guarantees were given or implied. Mr. Orion Dumont has provided written informed consent to proceed. Procedure: Orion Dumont was identified in the preoperative waiting area. his operative site was initialed and consent was reviewed. Final questions were answered. Mr. Orion Dumont was brought to the operating room and placed in the supine position. All bony prominences were well padded. The aforementioned anesthesia was administered. Antibiotics were confirmed to have been given. A tourniquet was placed around the upper arm. The operative extremity was prepped and draped in the usual sterile fashion. A surgical timeout was then performed with the patient's identification, the procedure to be performed being reviewed, verification that the patient had received preoperative antibiotics if in dicated, and verification of the correct surgical side. The patient's ASA was verified by the nursecirculator and the anesthesia staff. Fire risk was assessed. An esmarch bandage was used to exsanguinate the limb and the tourniquet was inflated to 250mm Hg. A curvilinear incision was made at the base of the thumb metacarpal between the glaborous and nonglabrous skin. Sharp dissection was carried down through the skin only and then blunt dissection was carried down to the level of the thenar fascia. Care was taken to identify and protect any crossing cutaneous nerves. The thenar fascia was incised in line with the skin incision just volar to the insertion of the APL tendon. The thenar musculature was sharply elevated ulnarward from the volar capsule. A longitudinal capsulotomy was made from the base of the first metacarpal to the distal pole of the scaphoid. Full-thickness volar and dorsal capsular flaps were elevated around the trapezium taking care to stay subperiosteal with our sharp dissection. The intrinsic muscles of the thumb were released. The FCR tendon was identified and protected volarly. Fluoroscopy was used to confirm correct identification of the trapezium. The trapezium was removed piecmeal using a rongeur. Live fluoroscopyconfirmed adequate resection of the trapezium and all loose bodies. The scapho-trapezoid was inspected and found to be with arthritic change. 2mm of the trapezoid articular surface was resected usingan small osteotome to ensure no residual bony contact between the scaphoid and trapezoid articulation. Using fluoroscopic guidance a guidewire was placed obliquely from the radial base of the second metacarpal through the ulnar cortex just distal to the metaphyseal flare. A threaded guide was placed over the guidewire and the guidewire removed. A drill bit was then passed along the same drill tunnel followed by an Arthrex fiber tack anchor which was deployed along the ulnar cortex of the second metacarpal. Excellent fixation of the suture anchor was confirmed. 1 limb of the suture tape was then passed from deep to superficial through the dorsal CMC capsule between the APL and EPB tendons. A separate locking suture was then placed in the dorsal capsule prior to passing the suture tape from superficial to deep. The thumb metacarpal was then placed in the appropriate position and several square knots tied to complete the suture suspension. 1 limb of the suture tape was then passed through the FCR at its insertion with a locking stitch. The 2 limbs of suture tape were then again tied with several square knots to complete the APL to FCR suspension. Fluoroscopy confirmed excellent metacarpal height without subsidence during axial load. Clinical exam demonstrated full thumb CMC range of motion without impingement. The wound was mickey irrigated normal saline. Gelfoam was placed in the CMC space and the thenar fascia with the volar CMC capsule repaired directly back to the dorsal CMC capsule and APL tendon using3-0 FiberWire suture. Lidocaine with epinephrine was then used within the CMC space and the tourniquet deflated. Hemostasis was achieved with gentle compression and bipolar cautery. The skin was thenclosed in layers followed by well-padded thumb spica splint. Mr. Orion Dumont was awakened from anesthesia having tolerated the procedure without apparent complication and was taken to the recovery room in stable condition. POST OP PLAN: To be fitted with custom forearm based thumb opponens splint at 1st PO appt to then begin hand therapy per protocol (.otcmc) Outpatient Follow-up XRays: Yes, Left Hand 3V Toya Smith MD 07/01/2022 , 5:00 PM [employer] Phone: [phone] Miscellaneous Notes* Telephone Encounter - Saida Lee MD - 06/30/2022 12:30 PM EDT Refill ordered by covering provider. The following approved medication requests have been transmitted electronically. Requested Prescriptions Signed Prescriptions Disp Refills lamoTRIgine (LAMICTAL) 100 mg tablet 90 tablet 0 Sig: TAKE 1 TABLET BY MOUTH DAILY Authorizing Provider: SAIDA LEE MD * Telephone Encounter - Frantz Hardy Exec Sec - 06/30/2022 11:26 AM EDT Quincy Alonzo's patient Last appt: 05/18/2022 Next appt: N/A documented in this encounterMem[facility]-17-[facility] NotePatient: Orion Dumont Procedure Information Date/Time: 07/01/22 1230 Procedure: Left thumb carpometacarpal arthroplasty with partial excision trapezoid (Left: Wrist) - 60 Location: [address] Operating Room Surgeons: Toya Smith MD Relevant Problems Anesthesia (+) Obstructive sleep apnea syndrome Cardio (+) Atrial fibrillation with RVR (CMS/HCC) (HCC) (+) Dieulafoy lesion of jejunum (+) Erectile dysfunction due to arterial insufficiency (+) Mixed hyperlipidemia (+) Varicose veins /Renal (+) Benign prostatic hyperplasia (+) Calculus of kidney Neuro/Psych (+) Dysthymic disorder (+) Generalized anxiety disorder (+) Major depressive disorder, recurrent episode, moderate (HCC) Pulmonary (+) Obstructive sleep apnea syndrome Other (+) Arthritis of crmrmhrl-iobmizqqc-elryqojjs joint of left hand Past Medical History: Past Medical History: No date: Atrial fibrillation (CMS/HCC) (HCC) No date: History of transfusion No date: Hx of deep venous thrombosis No date: Sleep apnea Past Surgical History: Past Surgical History: No date: APPENDECTOMY No date: CARPAL TUNNEL RELEASE No date: CHOLECYSTECTOMY No date: COLONOSCOPY No date: GASTRIC BYPASS No date: HIP ARTHROPLASTY No date: IVC FILTER INSERTION No date: ROTATOR CUFF REPAIR No date: TONSILLECTOMY No date: UPPER GASTROINTESTINAL ENDOSCOPY Social History: TOBACCO: reports that he has never smoked. He has never used smokeless tobacco. ETOH: reports that he does not currently use alcohol. Social History Substance and Sexual Activity Drug Use Not Currently Family History: No family history on file. Screening: unknown Clinical information reviewed: Tobacco Allergies Meds Med Hx Surg Hx Fam Hx Soc Hx Physical Exam Airway Mallampati: II TM distance: >3 FB Neck ROM: full Mouth Open: normalendotracheal tube not in place Cardiovascular Dental Comments: All of patient's teeth are crowns. Pulmonary Abdominal Other findings: Denies missing/loose teeth GERD controlled PONV: Low Risk Total Score: 1 Non-smoker Anesthesia Plan ASA 2 general (Took Eliquis at midnight - not a regional candidate at this time) The patient is not a current smoker. Patient was not previously instructed to abstain from smoking on day of procedure. Patient did not smoke on day of procedure. Anesthetic plan and risks discussed with patient. patient is NPO ERAS Meds Tylenol Pepcid LEXIE Screening Labs: No results found for: WBC, HGB, HCT, MCV, PLT No results found for: NA, K, CL, CO2, BUN, CREATININE, GLUCOSE, CALCIUM, PROT, BILIRUBINFL, ALKPHOS, AST, ALT, EGFR, GLOB Pain Score: 8 No echocardiogram results found for the past 14 days No results found for this or any previous visit.[facility] 06-24-2022 NoteComprehensive PreSurgical History and Physical ? Name: Orion Dumont : 1950 (Age-71 y.o.) Date of Service: Pt seen/examined on 06/24/2022 Procedure Information Date/Time: 07/01/22 1230 Procedure: Left thumb carpometacarpal arthroplasty with partial excision trapezoid (Left: Wrist) - 60 Location: [facility] [address] [place] [address] Operating Room Surgeons: Toya Smith MD Chief Complaint: Left cboacyhp-Pypiomqer-llqrpvvgo joint arthritis History Of Present Illness: 71 y.o. male who we are asked to see/evaluate by Toya Smith MD for pre-operative evaluation prior to Left thumb carpometacarpal arthroplasty with partial excision trapezoid on 07/01/2022. Patient was recently seen by Dr. Smith for ongoing left thumb pain, he had an USG injection on 05/04/[address] Lobato with no improvement. Patient states overall he is feeling well today, states he is ready to have this procedure, reports ongoing pain to his left wrist/thumb. ? Denies history of FL, CAD, CHF, TIA, CVA or Seizures. Past Medical History: Past Medical History: No date: Atrial fibrillation (CMS/HCC) (HCC) No date: History of transfusion No date: Hx of deep venous thrombosis No date: Sleep apnea Past Surgical History: Past Surgical History: No date: APPENDECTOMY No date: CARPAL TUNNEL RELEASE No date: CHOLECYSTECTOMY No date: COLONOSCOPY No date: GASTRIC BYPASS No date: HIP ARTHROPLASTY No date: IVC FILTER INSERTION No date: ROTATOR CUFF REPAIR No date: TONSILLECTOMY No date: UPPER GASTROINTESTINAL ENDOSCOPY Medications Prior to Admission: Prior to Admission medications Medication Sig Start Date End Date Taking? Authorizing Provider atorvastatin (Lipitor) 20 MG tablet 04/10/22 Historical Provider, bisoprolol (Zebeta) 5 MG tablet 04/10/22 Historical Provider, busPIRone (Buspar) 15 MG tablet 04/10/22 Historical Provider, Calcium Carbonate-Vit D-Min (Caltrate 600+D Plus Minerals) 600-800 MG-UNIT chewable tablet Chew. Historical Provider, cholecalciferol (Vitamin D-3) 50 MCG (1999 UT) tablet Take 1 tablet by mouth with evening meal. 08/13/21 Historical Provider, digoxin (Lanoxin) 250 MCG tab;et digoxin 250 mcg (0.25 mg) tablet 03/31/22 Historical Provider, Eliquis 5 MG tablet 04/10/22 Historical Provider, fludrocortisone (Florinef) 0.1 MG tablet 04/10/22 Historical Provider, HYDROcodone-acetaminophen ([place]) 5-325 MG tablet 01/29/22 Historical Provider, lamoTRIgine (LaMICtal) 100 MG tablet 04/10/22 Historical Provider, omega-3 acid ethyl esters (Lovaza) 1 g capsule Take 1 g by mouth 2 times daily. Historical Provider, orphenadrine (Norflex) 100 MG 12 hr tablet Take 100 mg by mouth 2 times daily as needed for muscle spasms. Do not crush, chew, or split. Historical Provider, pantoprazole (ProtoNix) 40 MG EC tablet 04/10/22 Historical Provider, sertraline (Zoloft) 100 MG tablet Take 100 mg by mouth in the morning. 03/25/22 Historical Provider, CHRONIC NARCOTIC USE: No Allergies: Rivaroxaban, Sulfa antibiotics, Nsaids, and Other Can the patient take acetaminophen: Yes Social History: TOBACCO: reports that he has never smoked. He has never used smokeless tobacco. ETOH: reports that he does not currently use alcohol. Social History Substance and Sexual Activity Drug Use Not Currently Family History: No family history on file. REVIEW OF SYSTEMS: Review of Systems Constitutional: Negative for chills and fever. HENT: Negative for dental problem, sore throat and trouble swallowing. Respiratory: Negative for cough, shortness of breath and wheezing. Cardiovascular: Negative for chest pain, palpitations and leg swelling. Gastrointestinal: Negative for abdominal pain. Skin: Negative for rash. Neurological: Negative for dizziness and light-headedness. Psychiatric/Behavioral: Negative for agitation, behavioral problems and confusion. Physical Exam: Physical Exam Vitals reviewed. Constitutional: General: He is not in acute distress. Appearance: Normal appearance. HENT: Head: Normocephalic. Mouth/Throat: Mouth: Mucous membranes are moist. Pharynx: No oropharyngeal exudate or posterior oropharyngeal erythema. Cardiovascular: Rate and Rhythm: Normal rate and regular rhythm. Heart sounds: No murmur heard. Pulmonary: Effort: Pulmonary effort is normal. No respiratory distress. Breath sounds: No wheezing, rhonchi or rales. Comments: Slightly diminished throughout Skin: General: Skin is warm and dry. Neurological: General: No focal deficit present. Mental Status: He is alert and oriented to person, place, and time. Psychiatric: Mood and Affect: Mood normal. Behavior: Behavior normal. Vitals: Vitals Value Taken Time BP 106/72 03/17/23 1213 Temp 36.4 ?C (97.6 ?F) 06/24/22 1213 Pulse 86 06/24/22 1213 Resp 16 06/24/22 1212 SpO2 99 % 06/24/22 1213 Labs: No results found for: WBC, HGB, HCT, MCV, PLT No results foun (more content not included)...[facility]03-17-2023 NoteComprehensive PreSurgical History and Physical ? Name: Orion Dumont : 1950 (Age-71 y.o.) Date of Service: Pt seen/examined on 06/24/2022 Procedure Information Date/Time: 07/01/22 1230 Procedure: Left thumb carpometacarpal arthroplasty with partial excision trapezoid (Left: Wrist) - 60 Location: [address] Operating Room Surgeons: Toya Smith MD Chief Complaint: Left wrxizbwl-Clvshkenj-lqdxpietc joint arthritis History Of Present Illness: 71 y.o. male who we are asked to see/evaluate by Toya Smith MD for pre-operative evaluation prior to Left thumb carpometacarpal arthroplasty with partial excision trapezoid on 07/01/2022. Patient was recently seen by Dr. Smith for ongoing left thumb pain, he had an USG injection on 05/04/[address] Lobato with no improvement. Patient states overall he is feeling well today, states he is ready to have this procedure, reports ongoing pain to his left wrist/thumb. ? Denies history of FL, CAD, CHF, TIA, CVA or Seizures. Past Medical History: Past Medical History: No date: Atrial fibrillation (CMS/HCC) (HCC) No date: History of transfusion No date: Hx of deep venous thrombosis No date: Sleep apnea Past Surgical History: Past Surgical History: No date: APPENDECTOMY No date: CARPAL TUNNEL RELEASE No date: CHOLECYSTECTOMY No date: COLONOSCOPY No date: GASTRIC BYPASS No date: HIP ARTHROPLASTY No date: IVC FILTER INSERTION No date: ROTATOR CUFF REPAIR No date: TONSILLECTOMY No date: UPPER GASTROINTESTINAL ENDOSCOPY Medications Prior to Admission: Prior to Admission medications Medication Sig Start Date End Date Taking? Authorizing Provider atorvastatin (Lipitor) 20 MG tablet 04/10/22 Historical Provider, bisoprolol (Zebeta) 5 MG tablet 04/10/22 Historical Provider, busPIRone (Buspar) 15 MG tablet 04/10/22 Historical Provider, Calcium Carbonate-Vit D-Min (Caltrate 600+D Plus Minerals) 600-800 MG-UNIT chewable tablet Chew. Historical Provider, cholecalciferol (Vitamin D-3) 50 MCG (2000 UT) tablet Take 1 tablet by mouth with evening meal. 08/13/21 Historical Provider, digoxin (Lanoxin) 250 MCG tab;et digoxin 250 mcg (0.25 mg) tablet 03/31/22 Historical Provider, Eliquis 5 MG tablet 04/10/22 Historical Provider, fludrocortisone (Florinef) 0.1 MG tablet 04/10/22 Historical Provider, HYDROcodone-acetaminophen ([place]) 5-325 MG tablet 01/29/22 Historical Provider, lamoTRIgine (LaMICtal) 100 MG tablet 04/10/22 Historical Provider, omega-3 acid ethyl esters (Lovaza) 1 g capsule Take 1 g by mouth 2 times daily. Historical Provider, orphenadrine (Norflex) 100 MG 12 hr tablet Take 100 mg by mouth 2 times daily as needed for muscle spasms. Do not crush, chew, or split. Historical Provider, pantoprazole (ProtoNix) 40 MG EC tablet 04/10/22 Historical Provider, sertraline (Zoloft) 100 MG tablet Take 100 mg by mouth in the morning. 03/25/22 Historical Provider, CHRONIC NARCOTIC USE: No Allergies: Rivaroxaban, Sulfa antibiotics, Nsaids, and Other Can the patient take acetaminophen: Yes Social History: TOBACCO: reports that he has never smoked. He has never used smokeless tobacco. ETOH: reports that he does not currently use alcohol. Social History Substance and Sexual Activity Drug Use Not Currently Family History: No family history on file. REVIEW OF SYSTEMS: Review of Systems Constitutional: Negative for chills and fever. HENT: Negative for dental problem, sore throat and trouble swallowing. Respiratory: Negative for cough, shortness of breath and wheezing. Cardiovascular: Negative for chest pain, palpitations and leg swelling. Gastrointestinal: Negative for abdominal pain. Skin: Negative for rash. Neurological: Negative for dizziness and light-headedness. Psychiatric/Behavioral: Negative for agitation, behavioral problems and confusion. Physical Exam: Physical Exam Vitals reviewed. Constitutional: General: He is not in acute distress. Appearance: Normal appearance. HENT: Head: Normocephalic. Mouth/Throat: Mouth: Mucous membranes are moist. Pharynx: No oropharyngeal exudate or posterior oropharyngeal erythema. Cardiovascular: Rate and Rhythm: Normal rate and regular rhythm. Heart sounds: No murmur heard. Pulmonary: Effort: Pulmonary effort is normal. No respiratory distress. Breath sounds: No wheezing, rhonchi or rales. Comments: Slightly diminished throughout Skin: General: Skin is warm and dry. Neurological: General: No focal deficit present. Mental Status: He is alert and oriented to person, place, and time. Psychiatric: Mood and Affect: Mood normal. Behavior: Behavior normal. Vitals: Vitals Value Taken Time BP 106/72 06/24/22 1213 Temp 36.4 ?C (97.6 ?F) 06/24/22 1213 Pulse 86 06/24/22 1213 Resp 16 06/24/22 1212 SpO2 99 % 06/24/22 1213 Labs: No results found for: WBC, HGB, HCT, MCV, PLT No results foun (more content not included)...[facility]03-06-2023 History of Present illness Narrative* Teri Cummings LPN - 06/13/2022 1:30 PM EST Left ear flushed with warm water/h2o2 500cc. Small amount of cerumen removed. Patient tolerated procedure well. Teri Cummings LPN * Florian Gonzalez MD - 06/13/2022 1:01 PM EST his note was created using [employer]ix[employer]. Subjective Patient presents with: Ear Problem Penis/Scrotum Problem Orion Dumont is a 71 year old male. He went for a hearing test and was told his left ear canal was clogged. He had been squirting ear drops for the past 5 days and cleaning with cotton tip withoutmuch improvement. He's also had a rash around the crown of his glans penis that has been recurrent, improving with neosporin only to recur at a different area of the rim of the glans. ACTIVE PROBLEM LIST Eating Disorder, Unspecified Generalized Anxiety Disorder Major Depressive Disorder, Recurrent Episode, Moderate (Hcc) Lexie (Obstructive Sleep Apnea) Varicose Veins of Both Legs With Edema Gastric Bypass Status for Obesity Vitamin D Deficiency Orthostatic Hypotension Postsurgical Dumping Syndrome Hip Joint Replacement By Other Means Atrial Fibrillation With Rvr (Hcc) Retinal Detachment Care Home Current Use of Anticoagulant Bph With Urinary Obstruction Obesity, Class II, Bmi 35-39.9 Hyperlipidemia Impaired Fasting Glucose Current Outpatient Medications Medication Sig lamoTRIgine (LAMICTAL) 100 mg tablet Take 1 tablet by mouth once daily. sertraline (ZOLOFT) 100 mg tablet Take 1 tablet by mouth once daily. bisoprolol (ZEBETA) 5 mg tablet Take 1 tablet by mouth once daily. digoxin (LANOXIN) 250 mcg (0.25 mg) tablet Take 1 tablet by mouth once daily. fludrocortisone (FLORINEF) 0.1 mg tablet Take 1 tablet by mouth once daily. apixaban (ELIQUIS) 5 mg tab(s) Take 1 tablet by mouth twice daily. busPIRone (BUSPAR) 15 mg tablet Take 1 tablet by mouth twice daily. pantoprazole DR (PROTONIX) 40 mg tablet Take 1 tablet by mouth daily before breakfast. Take on empty stomach, 1/2 hr before meal. atorvastatin (LIPITOR) 20 mg tablet Take 1 tablet by mouth once daily. cholecalciferol (VITAMIN D3) 50 mcg (2,000 unit) tablet Take 1 tablet by mouth daily with dinner. calcium citrate-vitamin D3 (CITRACAL PLUS D) 315 mg-5 mcg (200 unit) tab Take 1 tablet by mouth twice daily with meals. With each meal. Gmuvz0-LxiO4-S00-E-FA-Fish Oil [phone] ek-hd-vqp-mcg cap Take 600 mg by mouth once daily. (Patient taking differently: Take 600 mg by mouth twice daily.) pyridoxine (VITAMIN B-6) 100 mg tablet Take 2 tablets by mouth twice daily. docusate sodium 100 mg capsule Take 1 capsule by mouth twice daily as needed for Constipation. No current facility-administered medications for this visit. Review of Systems HENT: Negative for ear discharge and ear pain. Genitourinary: Negative for difficulty urinating and dysuria. Objective BP 96/64 (BP Site: Left Arm, BP Position: Sitting, BP Cuff Size: Large Adult) Pulse 72 Resp 20 Wt 99.3 kg (219 lb) BMI 29.09 kg/m Physical Exam HENT: Right Ear: Tympanic membrane and ear canal normal. Left Ear: There is impacted cerumen. Ears: Comments: Small abrasion of left ear canal. Genitourinary: Penis: Circumcised. Comments: Balanitis, junctional crease of glans and shaft. Assessment and Plan 1. Impacted cerumen, left ear - ICD9: 380.4, ICD10: H61.22 (primary diagnosis) - AMBULATORY EAR LAVAGE/IRRIGATION - Consent obtained for curette. I attempted removal with curette with partial success. Repeat lavage with more cerumen, but most was adherent to canal/TM. We agreed to stop. Patient tolerated all these well and no bleeding was noted. - Patient agreed to Consult ENT. 2. Generalized anxiety disorder - ICD9: 300.02, ICD10: F41.1 Refilled. - BUSPIRONE 15 MG TABLET 3. Balanitis - ICD9: 607.1, ICD10: N48.1 Discussed medication dosage, usage, goals of therapy, and side effects. - CICLOPIROX 0.77 % TOPICAL CREAM Florian Gonzalez MD documented in this encounter[facility]02-16-[facility]23 History of Present illness Narrative* Toya Smith MD - 05/26/2022 8:30 AM EST Images from the original note were not included. [facility] [place] [place] [address] [address] Dept: [phone] Dept 05/26/2022 Chief Complaint Patient presents with Follow-up Left wrist pain HPI Orion returns today in follow-up regarding left sided wrist pain. His last appointment was approximately 4 weeks ago. At his last appointment he was treated with a referral to Dr. Lobato for an USG injection on 05/04/2022. He reports no improvement after the injection. Continues to endorse pain focal to the volar radial aspect of the left thumb. No relief from previous ultrasound-guided injection. No past medical history on file. Social History Socioeconomic History Marital status: Spouse name: Not on file Number of children: Not on file Years of education: Not on file Highest education level: Not on file Occupational History Not on file Tobacco Use Smoking status: Never Smokeless tobacco: Never Substance and Sexual Activity Alcohol use: Not on file Drug use: Not on file Sexual activity: Not on file Other Topics Concern Not on file Social History Narrative Not on file Social Determinants of Health Financial Resource Strain: Not on file Food Insecurity: Not on file Transportation Needs: Not on file Physical Activity: Not on file Stress: Not on file Social Connections: Not on file Intimate Partner Violence: Not on file Housing Stability: Not on file OBJECTIVE BP 110/70 Ht 6' 1 (1.854 m) Wt 225 lb (102 kg) BMI 29.69 kg/m Ortho Exam Point tender along the STT and CMC joints. Pain with CMC grind. IMAGING XRay: Plain films reviewed from a previous date 04/28/2022 LEFT Wrist 3V STT arthrosis MRI left wrist impression DOS 02/04/22 NCT/EMG (Copied Impression) None PROCEDURE none ASSESSMENT (M19.032) Arthritis of gsgqteyc-xqxhdzijs-dzhhujmkt joint of left hand 1. 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 He has failed conservative management.He would like to proceed with surgery. In this scenario I recommend a CMC arthroplasty with partialexcision of his trapezoid to address the remaining STT arthrosis. He understands to be 3 to 4 months for his meaningful use of his thumb and a full year before he reaches maximal improvement. I had an extensive discussion with . Orion Dumont regarding the natural history, etiology, and emt intermediate consequences of his condition. We discussed both operative and non operative treatment options and Orion Dumont elected to proceed with surgical intervention. I have discussed with Mr. Harmon the potential complications, limitations, expectations, alternatives, and risks of the proposed surgical procedure. Risks discussed include but are not limited to the risk of infection, iatrogenic injury to normal neurovascular structures, persistent pain and disability, unsightly scar, stiffness, complex regional pain syndrome, loss of limb, myocardial infarction, deep vein thrombosis, pulmonary embolism and even . We also discussed the potential risk of COVID-19 exposure or infection and how it could alter his post operative recovery course. He has had full opportunity to ask his questions. I have answered them all to his satisfaction. I feel that Mr. Orion Dumont does understand our discussion today and he is comfortable providing informed consent for the procedure. Immobilization: NO immobilization required at this point - FULL ROM all joints encouraged Weight Bearing: Weight Bearing As Tolerated through left sided upper extremity Rehabilitation: NO formal rehabilitation required at this point. Follow-up: Orion will followup with my physician cancer genetics assistant Jaqueline Boyd PA-C post operatively. He knows to call the office with any questions or concerns in the interim. Future Imaging: NONE Toya Smith MD Hand and Upper Extremity Surgery [facility] Department of Orthopaedics and Sports Medicine 05/26/2022 at 9:00 AM (Please note that portions of this note may have been completed with a voice recognition program. Efforts were made to edit the dictations but occasionally words are mis-transcribed.) documented in this [facility]08[facility] History of Present illness Narrative* Quincy Alonzo APRN.[facility] - 05/18/2022 11:02 AM EST Images from the original note were not included. PSYC FOLLOW UP - PSYCHIATRIC PROGRESS NOTE DIAGNOSIS: MDD, recurrent, moderate Generalized Anxiety Disorder Chronic PTSD GAF: -60-51 Moderate symptoms or moderate difficulty in social, occupational or school functioning. TREATMENT PLAN: Continue psychiatric medications at the same dose. Patient to call with an update in 1 week regarding his psychosocial stressors. Consider an increase in Zoloft dose if patient struggles with more anxiety regarding his current stressors. Consult placed for individual psychotherapy with Dr. Alonso. Follow up as needed. The effects and side effects of all the medications were reviewed in detail with the patient. He isaware of the rash side effect associated with Lamictal. Patient is in agreement with the treatment plan and aware to reach out with any questions, concerns, or worsening of symptoms prior to the nextappointment. CC: Follow up regarding mood and anxiety HPI: Orion Dumont is a 71 year old Male with a history of LANA, MDD, and PTSD presenting today for follow-up. Date of last visit: 12/30/2021 Plan from last visit: Increase Lamictal to further address his depressive symptoms. Continue Zoloft and Buspar at the same dose. Transition to emt intermediate therapy plan completing the current weekly therapy program through his health insurance plan. Follow up in 2 months. Today Greg shares that he had COVID in March. His symptoms lasted for 3 weeks. He is feeling better now and denies long COVID symptoms. He reports feeling stressed due to his finances. He has been taken advantage by an individual namedTyler. He has lost over around $100,000 from his half-way account. Panchito has purchased 2 cars. Patient shares that he has romantic interest in this individual. He is planning on moving here from [place]. Patient has not met this individual in person but this individual is supposed to come in a week to [place]. He is also supposed to deposit some money in his account. This situation has caused increase in anxiety. He noticed it impacting his sleep. Patient currentlylives with his sister. She worries what is going to happen regarding this situation. He is not currently engaged in individual psychotherapy. He denies any thoughts of hurting himself or others. He is consistent in taking his Zoloft, Lamictal, and Buspar. He denies any side effects from his medications. Interval Progress: Slightly worse due to some psychosocial stressors Risks and benefits of the medication, including any black box warnings, were discussed with the patient. Social History: See HPI PATIENT DATA: Generalized Anxiety Disorder Scale (LANA-7) LANA - 7 SCORES 03/24/2022 04/21/2022 05/17/2022 LNAA-7 Score 7 7 10 (0-4) minimal anxiety, (5-9) mild anxiety, (10-14) moderate anxiety, (15-21) severe anxiety Patient Health Questionnaire (PHQ-9) PHQ-9 03/24/2022 04/21/2022 05/17/2022 Score 5 5 5 (0-4) minimal depression, (5-9) mild depression, (10-14) moderate depression, (15-19) moderately severe depression, (20-27) severe depression ROS: General: Negative for fever, malaise, unintentional weight loss HEENT: Negative for recent changes in vision or hearing, no nasal drainage Respiratory: Negative for cough, wheezing or SOB Cardiovascular: Negative for chest pain GI: Negative for nausea, vomiting, change in bowel habits MUSCULOSKELETAL: Negative for acute back or joint pain SKIN: Negative for rash NEURO: Negative for headaches, seizures, focal neurological deficits All other systems negative. VITAL SIGNS: BP 116/68 (05/18/22 1054) Temp Pulse 80 (05/18/22 1054) Resp SpO2 MENTAL STATUS EXAMINATION: Appearance: Appropriately groomed, appears stated age Behavior: Appropriately engaged Psychomotor: No psychomotor agitation Cognition Level of Consciousness: Awake and alert. No fluctuation in wakefulness. Orientation: Grossly oriented Memory: Intact Attention/Concentration: Good Fund of Knowledge: Able to demonstrate an awareness of current events. Mood: Anxious Affect: Congruent to mood Speech/Language: Appropriate tone, prosody, dia, phonetics, and syntax Thought Form: Goal-directed. No loosening of associations. Thought Content: No delusions noted or endorsed. Perceptual Disturbances: Did not appear to respond to auditory stimuli. Safety: Suicidal Ideations: No suicidal ideation, intent or plan. Homicidal Ideations: No homicidal ideation, intent or plan. Insight: Appropriate Judgment: Appropriate I spent a total of 28 minutes on the date of the service which included preparing to see the patient, [id number] patient care, completing clinical documentation, and counseling and educating the patient/family/caregiver, ordering medications/labs. Quincy Alonzo APRN.[facility] May 18, 2022 11:02 AM This note was partially generated using [employer] voice recognition system. Note was reviewed for accuracy. There may be minor misspellings or grammar miscues with [employer] voice recognition. documented in this encounter[facility] System[facility]-30-2023 History of Present illness Narrative* Florian Gonzalez MD - 05/09/2022 12:37 PM EST This note was created using NoteWriter. Subjective Orion Dumont is a 71 year old male. He had chronic fine varicose veins with mild edema and dependent cyanosis. He had tried compression stockings before, but even with a sleeve device, they were too tight to put on (20-30mm Hg). His other conditions were stable. I updated his problem and medication list. Review of Systems Constitutional: Positive for unexpected weight change. Negative for appetite change, chills and fever. HENT: Negative. Eyes: Negative. Respiratory: Negative. Cardiovascular: Positive for leg swelling. Negative for chest pain and palpitations. Gastrointestinal: Negative. Genitourinary: Negative. Musculoskeletal: Positive for arthralgias. Neurological: Negative for dizziness, light-headedness and headaches. Psychiatric/Behavioral: Negative. 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 sertraline (ZOLOFT) 100 mg tablet Take 1 tablet by mouth once daily. bisoprolol (ZEBETA) 5 mg tablet Take 1 tablet by mouth once daily. digoxin (LANOXIN) 250 mcg (0.25 mg) tablet Take 1 tablet by mouth once daily. fludrocortisone (FLORINEF) 0.1 mg tablet Take 1 tablet by mouth once daily. apixaban (ELIQUIS) 5 mg tab(s) Take 1 tablet by mouth twice daily. busPIRone (BUSPAR) 15 mg tablet Take 1 tablet by mouth twice daily. pantoprazole DR (PROTONIX) 40 mg tablet Take 1 tablet by mouth daily before breakfast. Take on empty stomach, 1/2 hr before meal. atorvastatin (LIPITOR) 20 mg tablet Take 1 tablet by mouth once daily. cholecalciferol (VITAMIN D3) 50 mcg (2,000 unit) tablet Take 1 tablet by mouth daily with dinner. calcium citrate-vitamin D3 (CITRACAL PLUS D) 315 mg-5 mcg (200 unit) tab Take 1 tablet by mouth twice daily with meals. With each meal. Hbute4-[id number]-E-FA-Fish Oil [phone] ue-sd-yye-mcg cap Take 600 mg by mouth once daily. (Patient taking differently: Take 600 mg by mouth twice daily.) pyridoxine (VITAMIN B-6) 100 mg tablet Take 2 tablets by mouth twice daily. docusate sodium 100 mg capsule Take 1 capsule by mouth twice daily as needed for Constipation. No current facility-administered medications for this visit. Objective BP 98/64 (BP Site: Left Arm, BP Position: Sitting, BP Cuff Size: Large Adult) Pulse 60 Temp 36.1 C (96.9 F) (Temporal) Resp 12 Ht 184.8 cm (6' 0.75) Wt 98.3 kg (216 lb 12.8 oz) BMI 28.80kg/m Physical Exam Constitutional: General: He is not in acute distress. Appearance: He is not ill-appearing. HENT: Head: Normocephalic. Cardiovascular: Rate and Rhythm: Normal rate and regular rhythm. Heart sounds: No murmur heard. No gallop. Pulmonary: Effort: Pulmonary effort is normal. Breath sounds: Normal breath sounds. Abdominal: Palpations: Abdomen is soft. Musculoskeletal: Right lower leg: No edema. Left lower leg: No edema. Skin: Comments: Dependent cyanosis of both feet and ankles. Fine varicose vein network in both feet and ankles. No tenderness. Trace edema. Neurological: General: No focal deficit present. Mental Status: He is alert. Gait: Gait normal. Psychiatric: Mood and Affect: Mood normal. Behavior: Behavior normal. Assessment and Plan 1. Medicare annual wellness visit, subsequent - ICD9: V70.0, ICD10: Z00.00 (primary diagnosis) See wellness note. 2. Varicose veins of both legs with edema - ICD9: 454.8, ICD10: I83.893 - COMPRESSION STOCKINGS 3. Atrial fibrillation with RVR (HCC) - ICD9: 427.31, ICD10: I48.91 Controlled, anticoagulated. - CBC 4. Major depressive disorder, recurrent episode, moderate (HCC) - ICD9: 296.32, ICD10: F33.1 Stable. 5. Hyperlipidemia, unspecified hyperlipidemia type - ICD9: 272.4, ICD10: E78.5 - to be determined upon return of lab results - Continue current medication. - COMP METABOLIC PANEL - LIPID PANEL BASIC 6. Impaired fasting glucose - ICD9: 790.21, ICD10: R73.01 Recheck. 7. Vitamin D deficiency - ICD9: 268.9, ICD10: E55.9 Recheck. - VITAMIN D 25 HYDROXY Florian Gonzalez MD * Florian Gonzalez MD - 05/09/2022 12:19 PM EST Orion Dumont is a 71 year old male here for a Medicare Subsequent Annual Wellness Visit Health Risk Assessment In general, health is: Fair Concerns with balance:Not at all Concerns with teeth or dentures:Not at all Concerns with sexual function:Not at all [place] anxious, stressed, angry, irritable, lonely, isolated, or had thoughts of hurting themself: Nearly every day Has little interest or pleasure in doing things: Not at all Bothered by feeling down, depressed, or hopeless: Several days Needs help with grocery shopping, cooking, housework, bathing, grooming, dressing, eating, sitting or standing, walking, using the toilet, handling finances, taking medications, using the telephone, or driving: No Following safety precautions in the home environment and vehicle: removed throw rugs from floors, installed grab bars in the bathroom, handrails in stairwells, having adequate lighting, wearing seatbelt at all times?: Yes Smokes cigarettes, vapes, or chew tobacco: No Eats healthy foods including fruits, vegetables, whole grains, and fiber-rich foods: Nearly every day Number of days per week engages in exercise: 2 days Average alcohol consumption: Never Current Providers Specialists: I have reviewed specialist-related care of the patient in the medical record. Current care team: Patient Care Team: Florian Gonzalez MD as PCP - General (Internal Medicine) Outside specialists seen: Dr. Yifan Baker, parts salesman. Quincy Alonzo, [employer], mental health; Dr. Ellis, ophthalmology; Dr. Matt Marie, orthopedics; Dr. Gonzalez Zimmerman, [facility], right shoulder, orthopedics, [facility]. Dr. Rubio Pantoja MD, [facility] pain management. Dr. Toya Smith, [facility] orthopedics. Medical/Family history review Reviewed and updated problem list, medical/surgical/family/social history, medications, and allergies. Opioid use review Patient is currently using opioids rarely. Prescribed No opioid use on file in the last 90 days Does patient have risk factors for opioid abuse? No Pain overview Current pain concerns and treatment plan reviewed. Patient under the care of a specialist. Depression screening Depression Screening PHQ-2 Score PHQ-9 Score LANA-2 Total Score LANA-7 Total Score 04/21/2022 1 5 2 7 Depression screening tool completed and reviewed. Based on score and interview, patient is already diagnosed with depression. Screening tool discussed with patient, and I recommended continuing current plan of care. Cognitive screening Mini Cog Score: Score: 4 Cognitive screening reviewed and no further action needed (score 3-5) Functional Observation Was the patient's timed Up & Go test unsteady or ? 12 seconds? No Advance Care Planning End of Life planning discussed, including patient's advanced directive wishes: Yes Measurements BP 98/64 Pulse 60 Temp (Src) 96.9 (Temporal) Resp 12 Ht 6' .75 (1.85m) Wt 216 lb 12.8 oz(98.3kg) BMI 28.80 kg/(m^2). Visual acuity (required for Welcome to Medicare): follows with optometry/ophthalmology and Right: 20/40 Left: 20/ 40 Both: 20/30 Hearing Evaluation: within normal limits Assessment/Plan - Counseled on healthy diet and regular exercise - Discussed need for and benefit of weight loss. BMI 28.80 kg/(m^2) - Fall avoidance - Depression screening - Alcohol misuse screening and counseling documented in this encounterMemorial Health System01-26-2023 Miscellaneous Notes* Telephone Encounter - Zoraida Hartley - 05/05/2022 12:06 PM EST Requested Prescriptions Pending Prescriptions Disp Refills sertraline (ZOLOFT) 100 mg tablet 90 tablet 3 Sig: Take 1 tablet by mouth once daily. documented in this encounterMemorial Health System01-26-2023 Miscellaneous Notes* Telephone Encounter - Gaviota Mcmillan LPN - 05/05/2022 8:36 AM EST Spoke with pt and information listed below given. Pt verbalizes understanding. Gaviota Mcmillan LPN * Telephone Encounter - Gaviota Mcmillan LPN - 05/04/2022 11:17 AM EST Left a message for pt to call the office and ask to speak to a nurse. Gaviota Mcmillan LPN * Telephone Encounter - Shea Van APRN.CNP - 05/04/2022 10:34 AM EST This is prescribed by [facility] psychiatry Shea Van APRN.RAJAN * Telephone Encounter - Carin Pacheco - 05/02/2022 1:58 PM EST Patient has been identified by name and date of : Yes Requested Prescriptions Pending Prescriptions Disp Refills lamoTRIgine (LAMICTAL) 100 mg tablet 30 tablet 2 Sig: Take 1 tablet by mouth once daily. DOMINIC-03/10/22 Labs-03/10/22 NOV-05/09/22 med filled 02/24/22 RX INSTRUCTIONS: Patient aware RX will be sent to pharmacy. No need to notify patient. Carin Pacheco documented in this encounterMemorial Health System01-25-2023 History of Present illness Narrative* Phil Lobato MD - 05/04/2022 8:50 AM EST Images from the original note were not included. [facility] [address] [place] [id number] Dept: [phone] Dept Chief Complaint Patient presents with Injections Usg lt wrist injection Subjective History of Present Illness: Orion Dumont is a 71 y.o. male who presents today for ultrasound guided injection of left STT joint . He rates symptoms as a 5/10 at rest and a 10/10 at worst. Imaging to date: X-ray April 2022 Prior targeted injections: about 8 - 9 months ago . Fall risk assessment: Completed today. Have you had 2 or more falls in the last year? No Have you had a fall with injury in the last year? No Do you feel unsteady or worried about falling? No Objective There were no vitals taken for this visit. Physical Exam: No sign of infection overlying injection site. External Notes I personally reviewed external notes from: Dr. Smith Labs No results found for: HGBA1C No results found for: CREATININE Imaging I have personally reviewed the images pertinent to the appointment today EMG/NCT N/A Procedure Procedure completed today, details below Use of ultrasound visualization of the needle was required to increase patient's safety by excluding inadvertent intermuscular or intertendinous placement and minimizing bleeding and injury by avoiding osteochondral and nearby neurovascular structures. Guidance also maximizes accurate injection placement and likely clinical benefit beyond that obtained from a non-guided injection. This allows increased diagnostic specificity when evaluating effectiveness of the injection. Verbal and written consent was obtained from the patient. Consent included possibility of bleeding,infection, hypoglycemia, hyperglycemia, increased pain, steroid flare, and permanent hypopigmentation and fat atrophy. Using real-time ultrasound I localized the left STT joint. Sterile prep. Using [id number] 1.5 inch needle I injected using direct ultrasound guidance out of plane with the probe into the joint with after aspiration without withdraw with 0.5 mL of 1% lidocaine and 0.5 cc of Celestone. The patient tolerated the procedure well. There were no complications. Pertinent ultrasound images were saved. The patient felt significantly better with gripping and with using his hands to push himself out ofa chair after the injection. Assessment Diagnosis Plan 1. Wrist pain, left betamethasone acetate-betamethasone sodium phosphate (Celestone) injection 3 mg lidocaine (Xylocaine) 1 % injection 0.5 mL 2. Primary osteoarthritis of left wrist betamethasone acetate-betamethasone sodium phosphate (Celestone) injection 3 mg lidocaine (Xylocaine) 1 % injection 0.5 mL Plan - Post injection instructions were given to the patient. - Keep with HEP. - Send Dr. Smith's office a [employer] message in 4 weeks with an update. Follow up if symptoms worsen or fail to improve. Phil Lobato MD 05/04/2022 9:00 AM Please note that portions of this note may have been completed with voice recognition software. Documentation reviewed prior to signing but minor errors in ceramic capacitor processor may have occurred. documented in this [facility] History of Present illness Narrative* Toya Smith MD - 04/28/2022 9:30 AM EST Images from the original note were not included. [facility]IC[facility] [address] [place] [address] Dept: [phone] Dept 04/28/2022 Chief Complaint Patient presents with New Patient Left wrist pain HPI Orion Dumont is a 71 y.o. right handed male that presents for evaluation of pain in his LEFT Wrist. Symptoms have been present for 2 year(s). The symptoms started after gradually over time. Pain Characteristics Described as constant annoying Worse with activity Alleviated nothing Severity severe Previous Treatments NSAIDs: Yes - Not Helpful Injection: Yes - has 3 injections and they have stopped working Therapy: No - Has not attempted formal therapy Splinting: Yes - Has worn a cock-up which was ineffective Surgery: Yes - Has had previous surgery to include: carpal tunnel release about 2 years ago MRI: Yes on disc Main complaint is pain along the base of the thumb No results found for: HGBA1C No past surgical history on file. No past medical history on file. Allergies Allergen Reactions Rivaroxaban Rash Sulfa Antibiotics Hives Other reaction(s): Intolerance Pt says that he has had silvadene cream in the past after cardioversions without side effects Diclofenac Rash Fixed drug eruption Fixed drug eruption Wound Dressing Adhesive Rash Current Outpatient Medications Medication Sig Dispense Refill atorvastatin (Lipitor) 20 MG tablet bisoprolol (Zebeta) 5 MG tablet busPIRone (Buspar) 15 MG tablet Calcium Carbonate-Vit D-Min (Caltrate 600+D Plus Minerals) 600-800 MG-UNIT chewable tablet Chew. cholecalciferol (Vitamin D-3) 50 MCG (1999 UT) tablet Take 1 tablet by mouth with evening meal. digoxin (Lanoxin) 250 MCG tab;et digoxin 250 mcg (0.25 mg) tablet Eliquis 5 MG tablet fludrocortisone (Florinef) 0.1 MG tablet HYDROcodone-acetaminophen ([place]) 5-325 MG tablet lamoTRIgine (LaMICtal) 100 MG tablet omega-3 acid ethyl esters (Lovaza) 1 g capsule Take 1 g by mouth 2 times daily. orphenadrine (Norflex) 100 MG 12 hr tablet Take 100 mg by mouth 2 times daily as needed for muscle spasms. Do not crush, chew, or split. pantoprazole (ProtoNix) 40 MG EC tablet sertraline (Zoloft) 100 MG tablet Take 100 mg by mouth in the morning. No current facility-administered medications for this visit. OBJECTIVE BP 128/82 Temp 36.1 C (96.9 F) Ht 6' 1 (1.854 m) Wt 225 lb (102 kg) BMI 29.69 kg/m Ortho Exam Minor stiffness of the wrist. Point tender over the STT joint. Nontender over the ulnar fovea. No pain with ulnar deviation. Neurovascular intact in the hand. IMAGING Plain films were taken today and reviewed in office. LEFT Wrist 3V STT arthrosis MRI left wrist impression DOS 02/04/22 PROCEDURE none ASSESSMENT 1. Arthritis of blfoknry-hqywctxsd-otwumjumx joint of left hand PLAN I discussed with Orion the natural history, expected outcome, and risks/benefits of both operative and nonoperative management of his particular diagnosis relative to his age, activity level, previous treatment, and physical exam. Orion had some excellent questions, all of which were answered to his satisfaction. Orion presents with STT arthrosis. I reviewed his previous MRI which also demonstrates this as wellas a TFCC tear. He is now symptomatic along the ulnar wrist. He is not a great surgical candidate therefore I recommended attempting an ultrasound-guided STT joint injection for both diagnostic and therapeutic purposes. He indicates medications for pain. Continue with splinting as needed. Follow-upin apparent basis. Follow-up: Orion will followup with me on an as needed basis. He knows to call the office with any questions or concerns in the interim. Future Imaging: NONE Toya Smith MD Hand and Upper Extremity Surgery [facility] Department of Orthopaedics and Sports Medicine 04/28/2022 at 10:17 AM (Please note that portions of this note may have been completed with a voice recognition program. Efforts were made to edit the dictations but occasionally words are mis-transcribed.) documented in this encounterSMercy Health Allen [id number] Miscellaneous Notes* Telephone Encounter - Shea Van APRN.CNP - 03/28/2022 9:42 AM EST Noted Shea Van APRN.CNP * Telephone Encounter - Jim Whitney RN - 03/28/2022 9:02 AM EST Patient reports he is covid positive on home test yesterday. Reports s/s started on 03-24: cough, runny nose, headache, body aches, sneezing, diarrhea (for 2 days). Reports symptoms are improving. Nowheeze, no SOB, no CP, no fever. Patient declines same day VV to determine if qualifies for paxlovid. States he will continue to treat at home. Agreeable to call back with any questions or concerns. Agreeable to ER for any concerning s/s: fever, wheeze, SOB, or CP. Aware he should quarantine for 5 days, from start of s/s, if after 5 days, no fever, without use of fever reducing medication, may come out of quarantine, but continue to wear a mask for 5 more days around people. documented in this encounterMemorial [facility] System12-16-2022 Miscellaneous Notes* Telephone Encounter - Juanita Tilley LPN - 03/25/2022 2:42 PM EST Called pt and he is still seeing Dr. Baker for cardiology. He will call that office for that refill. * Telephone Encounter - Shea Van APRN.CNP - 03/25/2022 1:53 PM EST It looks like some of these were prescribed by cardiology, is he still following up with them? Shea Van APRN.RAJAN * Telephone Encounter - Juanita Tilley LPN - 03/25/2022 1:49 PM EST This is a new pharmacy for pt. Rx would need to be filed for [facility]. Last seen pcp 03/10/22. * Telephone Encounter - Marielos Pacheco - 03/25/2022 10:53 AM EST Patient returned call stating he uses [facility] on [address] * Telephone Encounter - Stefanie Donaldson Ma - 03/25/2022 10:25 AM EST Message left for pt to call back, looks like he has been using [facility]. Need to verify pharmacy. Stefanie Donaldson Ma * Telephone Encounter - Ariadna Balbuena - 03/24/2022 11:02 AM ESTSummary: Refill Patient has been identified by name and date of : Yes Last office visit in this department: Visit date not found RX INSTRUCTIONS: Patient aware RX will be sent to pharmacy. No need to notify patient. Patient phones requesting refills as follows: Requested Prescriptions Pending Prescriptions Disp Refills busPIRone (BUSPAR) 15 mg tablet 180 tablet 0 Sig: Take 1 tablet by mouth twice daily. pantoprazole DR (PROTONIX) 40 mg tablet 90 tablet 3 Sig: Take 1 tablet by mouth daily before breakfast. Take on empty stomach, 1/2 hr before meal. sertraline (ZOLOFT) 100 mg tablet 90 tablet 3 Sig: Take 1 tablet by mouth once daily. atorvastatin (LIPITOR) 20 mg tablet 90 tablet 3 Sig: Take 1 tablet by mouth once daily. digoxin (LANOXIN) 250 mcg (0.25 mg) tablet 90 tablet 3 Sig: Take 1 tablet by mouth once daily. bisoprolol (ZEBETA) 5 mg tablet 90 tablet 3 Sig: Take 1 tablet by mouth once daily. fludrocortisone (FLORINEF) 0.1 mg tablet 90 tablet 3 Sig: Take 1 tablet by mouth once daily. Please review and advise. Ariadna Balbuena documented in this encounterMemorial Health System2022 Instructions* Patient Instructions* Florian Gonzalez MD - 03/10/2022 9:10 AM EST STRETCH BOTTOM HEEL DAILY WITH TENNIS BALL OR ROLLING PIN (MASSAGE). documented in this [facility]2022 History of Present illness Narrative* Florian Gonzalez MD - 03/10/2022 8:40 AM EST This note was created using TuneUpter. Subjective Orion Dumont is a 71 year old male. He had dry feet forever, and applied moisturizers and soaks.He was walking barefoot on the garage 3 weeks ago and developed pain in the heel, that was persisting and worse with weight bearing. He felt he split the dry skin, but was unable to check the bottom of his feet. There was no bleeding or discharge noted. He also had chronic small dark spots in his scrotum, asymptomatic. Review of Systems Constitutional: Negative. ACTIVE PROBLEM LIST Eating Disorder, Unspecified Generalized Anxiety Disorder Major Depressive Disorder, Recurrent Episode, Moderate (Hcc) Lexie (Obstructive Sleep Apnea) Varicose Veins Rhinitis Nephrolithiasis Pericarditis Gastric Bypass Status for Obesity Vitamin D Deficiency Iron Deficiency Anemia Orthostatic Hypotension Postsurgical Dumping Syndrome Hip Joint Replacement By Other Means Torn Rotator Cuff Atrial Fibrillation With Rvr (Hcc) Retinal Detachment Adhesive Capsulitis of Shoulder Care Home Current Use of Anticoagulant Bph With Urinary Obstruction Microhematuria Obesity, Class II, Bmi 35-39.9 Hyperlipidemia Impaired Fasting Glucose Current Outpatient Medications Medication Sig lamoTRIgine (LAMICTAL) 100 mg tablet Take 1 tablet by mouth once daily. digoxin (LANOXIN) 250 mcg (0.25 mg) tablet TAKE 1 TABLET BY MOUTH DAILY HYDROcodone-acetaminophen (NORCO) 5-325 mg per tablet orphenadrine ER (NORFLEX) 100 mg tablet AT BEDTIME NEEDED busPIRone (BUSPAR) 15 mg tablet Take 1 tablet by mouth twice daily. acetaminophen-codeine (TYLENOL-COD #3) 300-30 mg per tablet Take 1 tablet by mouth three times daily as needed for pain (from Dr. Zimmerman). atorvastatin (LIPITOR) 20 mg tablet Take 1 tablet by mouth once daily. pantoprazole DR (PROTONIX) 40 mg tablet Take 1 tablet by mouth daily before breakfast. Take on empty stomach, 1/2 hr before meal. bisoprolol (ZEBETA) 5 mg tablet Take 1 tablet by mouth once daily. fludrocortisone (FLORINEF) 0.1 mg tablet Take 1 tablet by mouth once daily. apixaban (ELIQUIS) 5 mg tab(s) Take 1 tablet by mouth twice daily. cholecalciferol (VITAMIN D3) 50 mcg (2,000 unit) tablet Take 1 tablet by mouth daily with dinner. sertraline (ZOLOFT) 100 mg tablet Take 1 tablet by mouth once daily. calcium citrate-vitamin D3 (CITRACAL PLUS D) 315 mg-5 mcg (200 unit) tab Take 1 tablet by mouth twice daily with meals. With each meal. [id number]-Fish Oil [id number] zm-tr-vrq-mcg cap Take 600 mg by mouth once daily. (Patient taking differently: Take 600 mg by mouth twice daily.) pyridoxine (VITAMIN B-6) 100 mg tablet Take 2 tablets by mouth twice daily. docusate sodium 100 mg capsule Take 1 capsule by mouth twice daily as needed for Constipation. No current facility-administered medications for this visit. Objective BP 112/76 (BP Site: Right Arm, BP Position: Sitting, BP Cuff Size: Large Adult) Pulse 60 Temp 36.1 C (97 F) (Temporal) Resp 12 Wt 105.7 kg (233 lb) BMI 30.74 kg/m Physical Exam Constitutional: Appearance: He is not ill-appearing. Genitourinary: Comments: Visual inspection only. Scrotal varices and scattered dark sub mm hemangiomas. Musculoskeletal: Right lower le+ Pitting Edema present. Left lower le+ Pitting Edema present. Right ankle: No deformity. No tenderness. Right foot: Tenderness present. Comments: Plantar heel localized tenderness. Skin: Comments: Mild xerosis of feet, especially right heel. No wound, no fissures. Assessment and Plan 1. Plantar fascial fibromatosis of right foot - ICD9: 728.71, ICD10: M72.2 (primary diagnosis) Shared medical decision making was done. NSAID not recommended due to anticoagulation and gastric bypass history. - PREDNISONE 20 MG TABLET. Burst. Daily x 5 days. - See printed instructions or information. Call for podiatry if not better in 2 weeks. 2. Multiple hemangiomas - ICD9: 228.00, ICD10: D18.00 Scrotal skin. Reassured. Florian Gonzalez MD documented in this encounterMemorial Health System11-17-2022 Miscellaneous Notes* Telephone Encounter - Doris Hankins RN - 02/24/2022 4:43 PM EST Patient has been identified by name and date of : Yes Pharmacy phones for refill(s): Requested Prescriptions Pending Prescriptions Disp Refills lamoTRIgine (LAMICTAL) 100 mg tablet 30 tablet 2 Sig: Take 1 tablet by mouth once daily. Date of last office visit with pcp: 12/30/2021 Next appt: 03/02/2022 Last 2 Encounter Wt Readings: Date: Wt: 02/02/2022 108.9 kg (240 lb) 01/31/2022 108.9 kg (240 lb) Previous labs/tests for medication: Blood Pressure: BUN (mg/dL) Date Value 05/05/2021 28 Sodium (mmol/L) Date Value 05/05/2021 143 Last 1 Encounter BP Readings: Date: BP: 02/02/2022 110/72 Liver Function: ALT (U/L) Date Value 04/12/2021 47 AST (U/L) Date Value 04/12/2021 43 Please advise. Thank you. Doris Hankins RN documented in this encounterMemorial Health System10-28-2022 Note ORIGINAL EXAMINATION: MRI OF THE LEFT WRIST WITHOUT CONTRAST TECHNIQUE: Multiplanar multisequence MRI of the left wrist was performed without the administration of intravenous contrast. COMPARISON: None HISTORY: ORDERING SYSTEM PROVIDED HISTORY: Reason for Exam: PAIN IN LT WRIST Carpal tunnel September 28 FINDINGS: TENDONS: The extensor tendons are intact. The flexor tendons are intact. There is moderate fluid surrounding the flexor carpi radialis tendon with mildly increased intrasubstance tendon signal. No other significant tenosynovitis. Carpal tunnel contents including the median nerve are unremarkable. LIGAMENTS: There is no obvious or high-grade tear of the scapholunate and lunotriquetral ligaments. The dorsal ligaments at the wrist are also intact. The lunotriquetral ligament is intact. There is a gap in the radial portion of the triangular fibrocartilage that is concerning for a full-thickness tear. The adjacent radioulnar ligaments are intact. The other ligaments appear within normal limits. JOINTS: No scapholunate joint widening. There is no dislocation or subluxation. Trace distal radioulnar joint effusion. Mild scattered degenerative changes. There is some dorsal tilting of the lunate but the scapholunate angle is within normal limits. OSSEOUS STRUCTURES: Mild bone marrow edema surrounding the distal radioulnar joint. Reactive bone marrow changes are seen in multiple carpal bones and in the distal ulna. No other pathologic marrow signal abnormality. There is moderate triscaphe osteoarthritis which may explain marrow edema in the trapezium. Some marrow edema in the hook of the hamate is nonspecific with no obvious fracture lines. There is no fracture or contusion. There is no marrow replacing lesion. SOFT TISSUES: There is some fluid in the distal radioulnar joint. There is also some fluid in the radiocarpal and midcarpal joint spaces suggesting synovitis. No significant peritendinous fluid collections. There is no muscle tear or atrophy. The median nerve in the carpal tunnel is unremarkable. The ulnar nerve in Guyon's canal is unremarkable. IMPRESSION: Degenerative changes at the wrist most prominent at the triscaphe joints. Full-thickness triangular fibrocartilage tear. Moderate tenosynovitis of the flexor carpi radialis tendon. There is also effusion at the wrist suggesting synovitis. . I have personally reviewed the images of this examination and agree with the resident's findings and interpretation. Interpreted by: Benoit Sepulveda MD Preliminary Report By: Leela Kulkarni Electronically signed By Benoit Sepulveda MD Dictated Date: 02/04/2022 9:52:16 AM Prelim Date: 02/04/2022 5:40:41 PM Sign Date: 02/04/2022 5:40:41 PM Ordering Provider: MATT MARIE [facility] [place]10-28-2022 Note ORIGINAL EXAMINATION: MRI OF THE LEFT WRIST WITHOUT CONTRAST TECHNIQUE: Multiplanar multisequence MRI of the left wrist was performed without the administration of intravenous contrast. COMPARISON: None HISTORY: ORDERING SYSTEM PROVIDED HISTORY: Reason for Exam: PAIN IN LT WRIST Carpal tunnel September 28 FINDINGS: TENDONS: The extensor tendons are intact. The flexor tendons are intact. There is moderate fluid surrounding the flexor carpi radialis tendon with mildly increased intrasubstance tendon signal. No other significant tenosynovitis. Carpal tunnel contents including the median nerve are unremarkable. LIGAMENTS: There is no obvious or high-grade tear of the scapholunate and lunotriquetral ligaments. The dorsal ligaments at the wrist are also intact. The lunotriquetral ligament is intact. There is a gap in the radial portion of the triangular fibrocartilage that is concerning for a full-thickness tear. The adjacent radioulnar ligaments are intact. The other ligaments appear within normal limits. JOINTS: No scapholunate joint widening. There is no dislocation or subluxation. Trace distal radioulnar joint effusion. Mild scattered degenerative changes. There is some dorsal tilting of the lunate but the scapholunate angle is within normal limits. OSSEOUS STRUCTURES: Mild bone marrow edema surrounding the distal radioulnar joint. Reactive bone marrow changes are seen in multiple carpal bones and in the distal ulna. No other pathologic marrow signal abnormality. There is moderate triscaphe osteoarthritis which may explain marrow edema in the trapezium. Some marrow edema in the hook of the hamate is nonspecific with no obvious fracture lines. There is no fracture or contusion. There is no marrow replacing lesion. SOFT TISSUES: There is some fluid in the distal radioulnar joint. There is also some fluid in the radiocarpal and midcarpal joint spaces suggesting synovitis. No significant peritendinous fluid collections. There is no muscle tear or atrophy. The median nerve in the carpal tunnel is unremarkable. The ulnar nerve in Guyon's canal is unremarkable. IMPRESSION: Degenerative changes at the wrist most prominent at the triscaphe joints. Full-thickness triangular fibrocartilage tear. Moderate tenosynovitis of the flexor carpi radialis tendon. There is also effusion at the wrist suggesting synovitis. . I have personally reviewed the images of this examination and agree with the resident's findings and interpretation. Interpreted by: Benoit Sepulveda MD Preliminary Report By: Leela Kulkarni Electronically signed By Benoit Sepulveda MD Dictated Date: 02/04/2022 9:52:16 AM Prelim Date: 02/04/2022 5:40:41 PM Sign Date: 02/04/2022 5:40:41 PM Ordering Provider: [facility]10-26-2022 History of Present illness Narrative* Leonides Baker MD - 02/02/2022 8:04 AM EDT Orion Dumont is a 71 year old who presents today for Patient presents with: Cardiology Follow Up : Medication review INTERVAl HPI PAST MEDICAL HISTORY Diagnosis Date Adjustment disorder with depressed mood hosp 95' Atrial fibrillation (HCC) 11/03/2009 s/p ablation, on coumadin, OFF now. 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 Currently chest pain free; However, there is a high chance of recurrence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 Continue Eliquis. History of GI bleeding, no reoccurrence. Hemoglobin A1c 5.7%. Lipids are well controlled, AST is mildly elevated. Continue current medications and reassess AST before the end of the year. Overall pt is doing well from a cardiac standpoint. His biggest concern right now is chronic pain due to arthritis. He is not sleeping well. Enc him to get enough sleep. Keep hydrated. Education: -Keep hydrated with water -Try Voltaren gel on your knee. Use as directed on box -Have labs drawn. -We will work on getting the cardiac MRI approved, we will be in touch. The above plan and management options were discussed at length with patient. The patient is in agreement with the above and verbalized understanding. I am providing care to the patient that follows Dr. Baker's care plan. This note was prepared with [employer] dictation software. Please excuse any errors in dictation. Kusum Millan [email or web address].RAJAN documented in this encounterMemorial Health System06-28-2022 Nurse Note* Adin Owens MA - 10/05/2021 12:28 PM EDT Orion presents today for Follow up visit.. Medication Refills needed today: No Pharmacy has been captured? No Adin Owens MA documented in this encounterMemorial Health System05-30-2022 Miscellaneous Notes* Telephone Encounter - Florian Gonzalez MD - 09/06/2021 3:34 PM EDT Patient's request for medication is as follows Signed Prescriptions Disp Refills atorvastatin (LIPITOR) 20 mg tablet 90 tablet 3 Sig: Take 1 tablet by mouth once daily. SHAWNA: No Authorizing Provider: FLORIAN GONZALEZ pantoprazole DR (PROTONIX) 40 mg tablet 90 tablet 3 Sig: Take 1 tablet by mouth daily before breakfast. Take on empty stomach, 1/2 hr before meal. Authorizing Provider: FLORIAN GONZALEZ MD * Telephone Encounter - Teri Cummings LPN - 09/01/2021 4:41 PM EDT Patient has been identified by name and date of : Yes Patient phones for refill(s): Pending Prescriptions Disp Refills ATORVASTATIN 20 MG TABLET Sig: Take 1 tablet by mouth once daily. SHAWNA: No PANTOPRAZOLE 20 MG TABLET,DELAYED RELEASE 60 tablet 11 Sig: Take 2 tablets by mouth once daily. SHAWNA: No Date of last office visit in primary care: 08/13/2021 Last 2 Encounter Wt Readings: Date: Wt: 08/13/2021 104.8 kg (231 lb) 05/05/2021 106.6 kg (235 lb) Previous labs/tests for medication: Cholesterol: HDL Cholesterol (mg/dL) Date Value 04/12/2021 65 LDL Cholesterol (mg/dL) Date Value 04/12/2021 68 ALT (U/L) Date Value 04/12/2021 47 Non HDL Cholesterol (mg/dL) Date Value 04/12/2021 84 Please advise. Thank you. Teri Cummings LPN * Telephone Encounter - Tracy Rajput - 09/01/2021 4:23 PM EDT Patient has been identified by name and date of : Yes Pending Prescriptions Disp Refills ATORVASTATIN 20 MG TABLET Sig: Take 1 tablet by mouth once daily. SHAWNA: No PANTOPRAZOLE 20 MG TABLET,DELAYED RELEASE 60 tablet 11 Sig: Take 2 tablets by mouth once daily. SHAWNA: No Patient has only enough until Monday. Patient is also asking if he is able to get his requests for medication for cardiology completed by Dr. Gonzalez. RX INSTRUCTIONS: Patient aware RX will be sent to pharmacy. No need to notify patient. Tracy Rajput documented in this encounterMemorial Health System05-25-2022 Miscellaneous Notes* Telephone Encounter - Ness Calderon - 09/01/2021 9:29 AM EDT Per office protocol the following medications have been approved. The following approved medication requests have been transmitted electronically. Signed Prescriptions Disp Refills bisoprolol (ZEBETA) 5 mg tablet 90 tablet 3 Sig: Take 1 tablet by mouth once daily. SHAWNA: No Authorizing Provider: LEONIDES BAKER Ordering User: NESS CALDERON fludrocortisone (FLORINEF) 0.1 mg tablet 90 tablet 3 Sig: Take 1 tablet by mouth once daily. SHAWNA: No Authorizing Provider: LEONIDES BAKER Ordering User: NESS CALDERON apixaban (ELIQUIS) 5 mg tab(s) 180 tablet 3 Sig: Take 1 tablet by mouth twice daily. 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 Patient reports falling twice last month. Both times he became lightheaded and legs gave out on him. No significant injury from either fall, syncope or LOC. He has a history of frequent falls and orthostatic hypotension, treated with Florinef. He is doing well with medications and counseling for depression. He had a rash in the right abdominal fold but improving with Neosporin. REVIEW OF SYSTEMS See HPI PAST MEDICAL HISTORY Diagnosis Date Adjustment disorder with depressed mood hosp 95' Atrial fibrillation (HCC) 11/03/2009 s/p ablation, on coumadin, OFF now. 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 Currently chest pain free; However, there is a high chance of recurrence since treatment has been on hold. Giving him steroid might actually put him at more risk of re bleeding. NSAID'S notan option for now. Plan: Consider Colchicine. If patient is to be restarted on AC, Colchicine has DVT (deep venous thrombosis) (HCC) 01/12/2010 S/P IVC filter, occurred post-op, on anticoagulation (for a fib) Eating disorder, unspecified 07/01/2009 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 Essential hypertension, benign Fatty liver 11-03-09 by us Gall stones, common bile duct 12/07/2013 Generalized anxiety disorder 07/01/2009 GI bleed 06/29/12 Hyperlipidemia 08/25/2020 Iron deficiency anemia 08/02/2012 Major depressive disorder, recurrent episode, moderate (HCC) 07/01/2009 Morbid obesity (HCC) 04-21-09 stated BMI 51.1 Ht: 75 Wt: 410 lbs MSSA (methicillin susceptible Staphylococcus aureus) infection 07/03/2012 Hx: MSSA infection of serosal fluids collection in L chest wall. S/P I/D on 06/19. On IV oxacillin till and then dc'ed on 06/23 with a 10 day course of Dicloxacillin. 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 Plan: Monitor H&H Q8H, transfuse as necessary, keep Hb>8 Consult IR for further intervention Protonix gtt for now, will switch to protonix 40mg bid when Hb is stable after 48-72 salma UTI (lower urinary tract infection) Varicose veins 2010 PAST SURGICAL HISTORY Procedure Laterality Date ARTHRP ACETBLR/PROX FEM PROSTC AGRFT/ALGRFT 1993 left CARDIOVERSION CHOLECYSTECTOMY 11/18/2013 COLONOSCOPY GEN ANES 04/20/2020 CYSTO BLADDER W/URETERAL CATHETERIZATION 01/30/2010 CYSTOSCOPY, RETROPYELOGRAM performed by RADHA OLIVAREZ at OR CYSTO W/INSERT URETERAL STENT 01/30/2010 CYSTOSCOPY, INSERTION STENT URETERAL J performed by RADHA OLIVAREZ at OR CYSTOURETHROSCOPY 06/16/2017 Cystoscopy DISKECTOMY, LUMBAR, SINGLE SP 1981 L4-5 EGD 04/20/2020 GASTRIC BYPASS HX 2008 w/ complications. NEPHROLITHOTOMY REMOVAL STAGE 1 05/02/2012 PAST SURGICAL HISTORY OF 1967 left hip pin PAST SURGICAL HISTORY OF 04/23/2012 heart surgery PAST SURGICAL HISTORY OF 06/04/2012 stitches for broken blood vesel in rectum REDUCE BOWEL OBSTRUCTION 06/24/2010 Performed by RAN REPAIR RETINAL DETACHMENT SCLERAL BUCKLING 10/2009 od Scleral Buckle REPAIR RETINAL DETACHMENT SCLERAL BUCKLING 08/05/2013 SB (Scleral Buckle)/ cyro os REVISE MEDIAN N/CARPAL TUNNEL SURG Left 10/2020 VITRECTOMY MECHANICAL PARS PLANA 09/03/2013 PPV / EL / gas OS ALLERGIES Rivaroxaban, Sulfa (Sulfonamide Antibiotics), Adhesive Tape (Rosins), Wool, Wool, and Diclofenac Sodium MEDICATIONS alfuzosin SR (UROXATRAL) 10 mg 24 hr tablet Take 1 tablet by mouth once daily. buPROPion SR (WELLBUTRIN SR) 150 mg 12 hr tablet Take 1 tablet by mouth twice daily. sertraline (ZOLOFT) 100 mg tablet Take 1 tablet by mouth once daily. bisoprolol (ZEBETA) 5 mg tablet Take 1 tablet by mouth once daily. fludrocortisone (FLORINEF) 0.1 mg tablet Take 1 tablet by mouth once daily. digoxin (LANOXIN) 250 mcg (0.25 mg) tablet Take 1 tablet by mouth once daily. apixaban (ELIQUIS) 5 mg tab(s) Take 1 tablet by mouth twice daily. pantoprazole DR (PROTONIX) 20 mg tablet Take 2 tablets by mouth once daily. calcium citrate-vitamin D3 (CITRACAL PLUS D) 315 mg-5 mcg (200 unit) tab Take 1 tablet by mouth twice daily with meals. With each meal. [id number]-FA-Fish Oil [id number] cap Take 600 mg by mouth once daily. atorvastatin (LIPITOR) 20 mg tablet Take 20 mg by mouth once daily. cholecalciferol (VITAMIN D3) 2,000 unit tablet Take 1 tablet by mouth daily with dinner. busPIRone (BUSPAR) 15 mg tablet Take 1 tablet by mouth twice daily. pyridoxine (VITAMIN B-6) 100 mg tablet Take 2 tablets by mouth twice daily. docusate sodium 100 mg capsule Take 1 capsule by mouth twice daily as needed for Constipation. FAMILY HISTORY Problem Relation Age of Onset Ischemic Heart Disease Father Diabetes Mother other (Other) Mother Diabetes Sister Cataract Sister Detached Retina Sister Social History Tobacco Use Smoking status: Never Smoker Smokeless tobacco: Never Used Substance Use Topics Alcohol use: No Drug use: No PHYSICAL EXAM BP 94/64 Pulse 99 Resp 18 Wt 104.8 kg (231 lb) SpO2 98% BMI 30.48 kg/m General Appearance: well appearing, in no acute distress, alert Lungs: Lungs clear to auscultation. No wheezing, rhonchi, rales. Heart: Irregular rhythm, without murmur, gallop, or rubs. No ectopy DATA REVIEWED: Most recent labs ASSESSMENT/PLAN: 1. Orthostatic hypotension - ICD9: 458.0, ICD10: I95.1 (primary diagnosis) Stable on Florinef 2. Impaired glucose metabolism - ICD9: 790.29, ICD10: R73.09 Stable 3. Frequent falls - ICD9: V15.88, ICD10: R29.6 Secondary to orthostatic hypotension. Reminded patient to change positions slowly and wait before ambulating after standing up. Continue with compression socks, stay hydrated Prescription instructions reviewed with patient as applicable. Potential red flag symptoms discussed with the patient. Reviewed appropriate action plan to take if red flag symptoms occur. Patient agreeable to treatment plan. Sheavictorino Van APRN.CNP documented in this encounterMem[facility] System04-22-2022 Miscellaneous Notes* Telephone Encounter - Juanita Tilley LPN - 07/30/2021 3:44 PM EDT Last seen pcp 05/05/21 Next appt is 08/13/21. * Telephone Encounter - Izabela Umana - 07/30/2021 3:42 PM EDT Patient has been identified by name and date of : Yes Pending Prescriptions Disp Refills ALFUZOSIN ER 10 MG TABLET,EXTENDED RELEASE 24 HR 90 tablet 3 Sig: Take 1 tablet by mouth once daily. SHAWNA: No BUPROPION HCL SR 150 MG TABLET,12 HR SUSTAINED-RELEASE 180 tablet 3 Sig: Take 1 tablet by mouth twice daily. SHAWNA: No SERTRALINE 100 MG TABLET 90 tablet 3 Sig: Take 1 tablet by mouth once daily. SHAWNA: No RX INSTRUCTIONS: Patients mail order pharmacy changed to [facility] Patient aware RX escripted to mail away pharmacy. No need to notify patient. 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 Continue Lovenox until INR > 2.0 or patient's INR Warfarin Indication Range Pharmacy Previous Dose Scr - If > 2mo ago, retest For calculation of Clcr & Lovenox dose Creatinine (mg/dL) Date Value 01/31/2015 1.03 Height Last 1 Encounter Ht Readings: Date: Ht: 02/06/2015 185.4 cm (6' 1) Weight Last 1 Encounter Wt Readings: Date: Wt: 02/06/2015 107.049 kg (236 lb) Lovenox Dose C-G Actual Body Wt Est Clcr = ml/min C-G Lean Body Wt Est Clcr = ml/min GlobalRPH Link The Lovenox dose above has been reviewed for Appropriateness based on pt specific criteria and disease state(s) Initials: Date: Bridge Instruction Sent to: Bridge Instructions Approved by Sent Via [facility] Name or Type of Procedure Date Warfarin Dose INR PLT QOD X 14 days Total Initials and Comments Right Click & Insert Row for Today'sDocumentation. 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 05/05/2021 Gall stones, common bile duct 12/07/2013 Epiretinal membrane 11/01/2013 05/05/2021 Shoulder pain 09/12/2013 05/05/2021 NO SHOW 05/03/2013 05/05/2021 Ingrown toenail 02/03/2013 05/05/2021 Senile nuclear sclerosis 01/29/2013 015 Dizziness and giddiness 09/21/2012 11/06/19 19 Other symptoms involving ner vous and musculoskeletal systems(781.99) 09/21/2012 05/05/2021 Ulcer of perianal area 07/03/2012 Overview: Present on admission Dieulafoy lesion (hemorrhagic) of intestine 06/0905/05/2021 Overview: Hx: Seen on EGD 06/30 - lesion clipped Had been on multiple NSAIDS; Steroids; previously for pericarditis. 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 Plan: Monitor H&H Q8H, transfuse as necessary, keep Hb>8 Consult IR for further intervention Protonix gtt for now, will switch to protonix 40mg bid when Hb is stable after 48-72 hours GI on board, appreciate their recs MSSA (methicillin susceptibl e Staphylococcus aureus) infection 07/03/2012 05/05/2021 Overview: Hx: MSSA infection of serosal fluids collection in L chest wall. S/P I/D on 06/19. On IV oxacillin till and then dc'ed on 06/23 with a 10 day course of Dicloxacillin. 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 Currently chest pain free; However, there is a high chance of recurrence since treatment has been on hold. Giving him steroid might actually put him at more risk of re bleeding. NSAID'S not an option for now. Plan: Consider Colchicine. If patient is to be restarted on AC, Colchicine has to be held given interaction with Coumadin. 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 Discontinue own potassium. Initiate K-dur 40meq daily. Obtain K in the AM/ 06/17: K+ 4.1 today Will continue K-Dur 40 meq on discharge. // Hypomagnesemia 06/15/2010 05/05/2021 Overview: 06/15/2010: Magnesium 1.8 this am. Magnesium 400mg daily ordered. Mag draw in am06/16: Magnesium 1.9 today. Mag OX increased to 400mg BID. Mag draw in AM. 06/17: Magnesium 2.0 today. Will continue Mag OX 400mg BID at home. Mag blood draw on Monday. // Retinal detachment with retinal defect, unspecif ied 06/14/2010 05/05/2021 Anticoagulation monitoring, INR range 2-3 201009/28/2012 Overview: ECG on admission: AF, LT82-915 on tele w/ pt in bed QT/QTc: 380/460 Previous AAD: N/A Coumadin dose: 7.5mg daily INRs: see epic, therapeutic since 05/20/10. Pt goes to [facility]. CrCl:greater than 100 Will start Tikosyn per Dr Courtney Grady Plan for DCC if the pt remains in AF, IC in chart. 06/15: INR 2.9 today. Continue on Coumadin with INR check in the AM. 06/16: INR 3.1 today. Continue Coumadin. INR in the am/06/17: INR 3.4 today. Instructed patient to take 5mg today. INR check on Monday at [facility]// . Pulmonary embolism 03/01/2010 05/05/2021 DVT (deep venous thrombosis) 01/12/2010 Atrial fibrillation 11/03/2009 11/05/2018 Overview: Hx: Persistent A.fib s/p Mini MAZE 05/2012. Currently in sinus. Had previously failed NATHAN's and DCC x5 Assessment: Currently in Sinus On amiodarone 300mg daily for 4 weeks from D/C can now switch to 200mg daily Plan: 200 mg daily amiodarone CHADS2 score of 1, with the h/o GI bleed will hold off on anticoagulation Morbid obesity 10/14/2009 02/20/2014 Overview: s/p Gastric bypass surgery Encounter for dietary counseling and surveillanc e 10/14/2009 05/05/2021 Other specified disease of sebaceous glands 07/200805/05/2021 Corns and callosities 06/11/2008 05/05/2021 Contusion of foot 06/11/2008 05/05/2021 documented as of this encounter (statuses as of 07/30/2021) [facility] of Past illness Narrative* Problem Noted Date Resolved Date Syncope 11/02/2018 05/05/2021 Chest pain 05/03/2018 05/05/2021 Left lower quadrant pain 05/03/2018 022 Left leg swelling 05/03/2018 05/05/2021 Presence of intraocular lens 11/14/2017 Bilateral posterior capsular opacification 11/1405/05/2021 History of detached retina repair 11/14/2017 05/05/2021 Strabismus 11/14/2017 05/05/2021 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 Continue Lovenox until INR > 2.0 or patient's INR Warfarin Indication Range Pharmacy Previous Dose Scr - If > 2mo ago, retest For calculation of Clcr & Lovenox dose Creatinine (mg/dL) Date Value 01/31/2015 1.03 Height Last 1 Encounter Ht Readings: Date: Ht: 02/06/2015 185.4 cm (6' 1) Weight Last 1 Encounter Wt Readings: Date: Wt: 02/06/2015 107.049 kg (236 lb) Lovenox Dose C-G Actual Body Wt Est Clcr = ml/min C-G Lean Body Wt Est Clcr = ml/min GlobalRPH Link The Lovenox dose above has been reviewed for Appropriateness based on pt specific criteria and disease state(s) Initials: Date: Bridge Instruction Sent to: Bridge Instructions Approved by Sent Via Epic Name or Type of Procedure Date Warfarin Dose INR PLT QOD X 14 days Total Initials and Comments Right Click & Insert Row for Today'sDocumentation. 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 05/05/2021 Gall stones, common bile duct 12/07/2013 Epiretinal membrane 11/01/2013 05/05/2021 Shoulder pain 09/12/2013 05/05/2021 NO SHOW 05/03/2013 05/05/2021 Ingrown toenail 02/03/2013 05/05/2021 Senile nuclear sclerosis 01/29/2013 015 Dizziness and giddiness 09/21/2012 11/06/19 19 Other symptoms involving ner vous and musculoskeletal systems(781.99) 09/21/2012 05/05/2021 Ulcer of perianal area 07/03/2012 Overview: Present on admission Dieulafoy lesion (hemorrhagic) of intestine 06/0905/05/2021 Overview: Hx: Seen on EGD 06/30 - lesion clipped Had been on multiple NSAIDS; Steroids; previously for pericarditis. 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 Plan: Monitor H&H Q8H, transfuse as necessary, keep Hb>8 Consult IR for further intervention Protonix gtt for now, will switch to protonix 40mg bid when Hb is stable after 48-72 hours GI on board, appreciate their recs MSSA (methicillin susceptibl e Staphylococcus aureus) infection 07/03/2012 05/05/2021 Overview: Hx: MSSA infection of serosal fluids collection in L chest wall. S/P I/D on 06/19. On IV oxacillin till and then dc'ed on 06/23 with a 10 day course of Dicloxacillin. 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 Currently chest pain free; However, there is a high chance of recurrence since treatment has been on hold. Giving him steroid might actually put him at more risk of re bleeding. NSAID'S not an option for now. Plan: Consider Colchicine. If patient is to be restarted on AC, Colchicine has to be held given interaction with Coumadin. 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 DVT prophylaxis 07/03/2012 05/05/2021 Overview: Plan: Will hold off on Hep given recent GI bleed IPC's Hyperoxaluria 05/11/2012 12/07/2015 Lattice degeneration of peripheral retina 201105/05/2021 skilled nursing (current) use of anticoagulants 201005/05/2021 Overview: PCC referring MD: Michael Mcmahan Anticoagulation management encounter 2010 05/05/2021 Other and unspecified postsurgical nonabsorption 08/25/2010 05/05/2021 Wound check, abscess 08/25/2010 05/05/2021 Hypokalemia 06/16/2010 05/05/2021 Overview: Borderline K+ at 3.6 today. Discontinue own potassium. Initiate K-dur 40meq daily. Obtain K in the AM06/17: K+ 4.1 today Will continue K-Dur 40 meq on discharge. // Hypomagnesemia 06/15/2010 05/05/2021 Overview: 06/15/2010: Magnesium 1.8 this am. Magnesium 400mg daily ordered. Mag draw in am06/16: Magnesium 1.9 today. Mag OX increased to 400mg BID. Mag draw in AM. 06/17: Magnesium 2.0 today. Will continue Mag OX 400mg BID at home. Mag blood draw on Monday. // Retinal detachment with retinal defect, unspecif ied 06/14/2010 05/05/2021 Anticoagulation monitoring, INR range 2-3 201009/28/2012 Overview: ECG on admission: AF, [id number] on tele w/ pt in bed QT/QTc: 380/460 Previous AAD: N/A Coumadin dose: 7.5mg daily INRs: see epic, therapeutic since 05/20/10. Pt goes to [facility]. CrCl:greater than 100 Will start Tikosyn per Dr Courtney Grady Plan for DCC if the pt remains in AF, IC in chart. 06/15: INR 2.9 today. Continue on Coumadin with INR check in the AM. 06/16: INR 3.1 today. Continue Coumadin. INR in the am// 06/17: INR 3.4 today. Instructed patient to take 5mg today. INR check on Monday at [facility]// . Pulmonary embolism 03/01/2010 05/05/2021 DVT (deep venous thrombosis) 01/12/2010 Atrial fibrillation 11/03/2009 11/05/2018 Overview: Hx: Persistent A.fib s/p Mini MAZE 05/2012. Currently in sinus. Had previously failed NATHAN's and DCC x5 Assessment: Currently in Sinus On amiodarone 300mg daily for 4 weeks from D/C can now switch to 200mg daily Plan: 200 mg daily amiodarone CHADS2 score of 1, with the h/o GI bleed will hold off on anticoagulation Morbid obesity 10/14/2009 02/20/2014 Overview: s/p Gastric bypass surgery Encounter for dietary counseling and surveillanc e 10/14/2009 05/05/2021 Other specified disease of sebaceous glands 07/200805/05/2021 Corns and callosities 06/11/2008 05/05/2021 Contusion of foot 06/11/2008 05/05/2021 documented as of this encounter (statuses as of 08/02/2021) [facility] Past illness Narrative* Problem Noted Date Resolved Date Syncope 11/02/2018 05/05/2021 Chest pain 05/03/2018 05/05/2021 Left lower quadrant pain 05/03/2018 022 Left leg swelling 05/03/2018 05/05/2021 Presence of intraocular lens 11/14/2017 Bilateral posterior capsular opacification 11/1405/05/2021 History of detached retina repair 11/14/2017 05/05/2021 Strabismus 11/14/2017 05/05/2021 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 Continue Lovenox until INR > 2.0 or patient's INR Warfarin Indication Range Pharmacy Previous Dose Scr - If > 2mo ago, retest For calculation of Clcr & Lovenox dose Creatinine (mg/dL) Date Value 01/31/2015 1.03 Height Last 1 Encounter Ht Readings: Date: Ht: 02/06/2015 185.4 cm (6' 1) Weight Last 1 Encounter Wt Readings: Date: Wt: 02/06/2015 107.049 kg (236 lb) Lovenox Dose C-G Actual Body Wt Est Clcr = ml/min C-G Lean Body Wt Est Clcr = ml/min GlobalRPH Link The Lovenox dose above has been reviewed for Appropriateness based on pt specific criteria and disease state(s) Initials: Date: Bridge Instruction Sent to: Bridge Instructions Approved by Sent Via [facility] Name or Type of Procedure Date Warfarin Dose INR PLT QOD X 14 days Total Initials and Comments Right Click & Insert Row for Today'sDocumentation. 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 05/05/2021 Gall stones, common bile duct 12/07/2013 Epiretinal membrane 11/01/2013 05/05/2021 Shoulder pain 09/12/2013 05/05/2021 NO SHOW 05/03/2013 05/05/2021 Ingrown toenail 02/03/2013 05/05/2021 Senile nuclear sclerosis 01/29/2013 015 Dizziness and giddiness 09/21/2012 11/06/19 19 Other symptoms involving ner vous and musculoskeletal systems(781.99) 09/21/2012 05/05/2021 Ulcer of perianal area 07/03/2012 Overview: Present on admission Dieulafoy lesion (hemorrhagic) of intestine 06/0905/05/2021 Overview: Hx: Seen on EGD 06/30 - lesion clipped Had been on multiple NSAIDS; Steroids; previously for pericarditis. 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 Plan: Monitor H&H Q8H, transfuse as necessary, keep Hb>8 Consult IR for further intervention Protonix gtt for now, will switch to protonix 40mg bid when Hb is stable after 48-72 hours GI on board, appreciate their recs MSSA (methicillin susceptibl e Staphylococcus aureus) infection 07/03/2012 05/05/2021 Overview: Hx: MSSA infection of serosal fluids collection in L chest wall. S/P I/D on 06/19. On IV oxacillin till and then dc'ed on 06/23 with a 10 day course of Dicloxacillin. 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 Currently chest pain free; However, there is a high chance of recurrence since treatment has been on hold. Giving him steroid might actually put him at more risk of re bleeding. NSAID'S not an option for now. Plan: Consider Colchicine. If patient is to be restarted on AC, Colchicine has to be held given interaction with Coumadin. 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 DVT prophylaxis 07/03/2012 05/05/2021 Overview: Plan: Will hold off on Hep given recent GI bleed IPC's Hyperoxaluria 05/11/2012 12/07/2015 Lattice degeneration of peripheral retina 201105/05/2021 skilled nursing (current) use of anticoagulants 201005/05/2021 Overview: PCC referring MD: Michael Mcmahan Anticoagulation management encounter 2010 05/05/2021 Other and unspecified postsurgical nonabsorption 08/25/2010 05/05/2021 Wound check, abscess 08/25/2010 05/05/2021 Hypokalemia 06/16/2010 05/05/2021 Overview: Borderline K+ at 3.6 today. Discontinue own potassium. Initiate K-dur 40meq daily. Obtain K in the AM06/17: K+ 4.1 today Will continue K-Dur 40 meq on discharge. // Hypomagnesemia 06/15/2010 05/05/2021 Overview: 06/15/2010: Magnesium 1.8 this am. Magnesium 400mg daily ordered. Mag draw in am06/16: Magnesium 1.9 today. Mag OX increased to 400mg BID. Mag draw in AM. 06/17: Magnesium 2.0 today. Will continue Mag OX 400mg BID at home. Mag blood draw on Monday. // Retinal detachment with retinal defect, unspecif ied 06/14/2010 05/05/2021 Anticoagulation monitoring, INR range 2-3 201009/28/2012 Overview: ECG on admission: AF, [id number] on tele w/ pt in bed QT/QTc: 380/460 Previous AAD: N/A Coumadin dose: 7.5mg daily INRs: see epic, therapeutic since 05/20/10. [facility]. CrCl:greater than 100 Will start Tikosyn per Dr Courtney Grady Plan for DCC if the pt remains in AF, IC in chart. 06/15: INR 2.9 today. Continue on Coumadin with INR check in the AM. 06/16: INR 3.1 today. Continue Coumadin. INR in the am06/17: INR 3.4 today. Instructed patient to take 5mg today. INR check on Monday at [facility] . Pulmonary embolism 03/01/2010 05/05/2021 DVT (deep venous thrombosis) 01/12/2010 Atrial fibrillation 11/03/2009 11/05/2018 Overview: Hx: Persistent A.fib s/p Mini MAZE 05/2012. Currently in sinus. Had previously failed NATHAN's and DCC x5 Assessment: Currently in Sinus On amiodarone 300mg daily for 4 weeks from D/C can now switch to 200mg daily Plan: 200 mg daily amiodarone CHADS2 score of 1, with the h/o GI bleed will hold off on anticoagulation Morbid obesity 10/14/2009 02/20/2014 Overview: s/p Gastric bypass surgery Encounter for dietary counseling and surveillanc e 10/14/2009 05/05/2021 Other specified disease of sebaceous glands 07/200805/05/2021 Corns and callosities 06/11/2008 05/05/2021 Contusion of foot 06/11/2008 05/05/2021 documented as of this encounter (statuses as of 08/13/2021) [facility] History of Past illness Narrative* Problem Noted Date Resolved Date Syncope 11/02/2018 05/05/2021 Chest pain 05/03/2018 05/05/2021 Left lower quadrant pain 05/03/2018 022 Left leg swelling 05/03/2018 05/05/2021 Presence of intraocular lens 11/14/2017 Bilateral posterior capsular opacification 11/1405/05/2021 History of detached retina repair 11/14/2017 05/05/2021 Strabismus 11/14/2017 05/05/2021 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 Continue Lovenox until INR > 2.0 or patient's INR Warfarin Indication Range Pharmacy Previous Dose Scr - If > 2mo ago, retest For calculation of Clcr & Lovenox dose Creatinine (mg/dL) Date Value 01/31/2015 1.03 Height Last 1 Encounter Ht Readings: Date: Ht: 02/06/2015 185.4 cm (6' 1) Weight Last 1 Encounter Wt Readings: Date: Wt: 02/06/2015 107.049 kg (236 lb) Lovenox Dose C-G Actual Body Wt Est Clcr = ml/min C-G Lean Body Wt Est Clcr = ml/min GlobalRPH Link The Lovenox dose above has been reviewed for Appropriateness based on pt specific criteria and disease state(s) Initials: Date: Bridge Instruction Sent to: Bridge Instructions Approved by Sent Via [employer] Name or Type of Procedure Date Warfarin Dose INR PLT QOD X 14 days Total Initials and Comments Right Click & Insert Row for Today'sDocumentation. 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 05/05/2021 Gall stones, common bile duct 12/07/2013 Epiretinal membrane 11/01/2013 05/05/2021 Shoulder pain 09/12/2013 05/05/2021 NO SHOW 05/03/2013 05/05/2021 Ingrown toenail 02/03/2013 05/05/2021 Senile nuclear sclerosis 01/29/2013 015 Dizziness and giddiness 09/21/2012 11/06/19 19 Other symptoms involving ner vous and musculoskeletal systems(781.99) 09/21/2012 05/05/2021 Ulcer of perianal area 07/03/2012 Overview: Present on admission Dieulafoy lesion (hemorrhagic) of intestine 06/0905/05/2021 Overview: Hx: Seen on EGD 06/30 - lesion clipped Had been on multiple NSAIDS; Steroids; previously for pericarditis. 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 Plan: Monitor H&H Q8H, transfuse as necessary, keep Hb>8 Consult IR for further intervention Protonix gtt for now, will switch to protonix 40mg bid when Hb is stable after 48-72 hours GI on board, appreciate their recs MSSA (methicillin susceptibl e Staphylococcus aureus) infection 07/03/2012 05/05/2021 Overview: Hx: MSSA infection of serosal fluids collection in L chest wall. S/P I/D on 06/19. On IV oxacillin till and then dc'ed on 06/23 with a 10 day course of Dicloxacillin. 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 Currently chest pain free; However, there is a high chance of recurrence since treatment has been on hold. Giving him steroid might actually put him at more risk of re bleeding. NSAID'S not an option for now. Plan: Consider Colchicine. If patient is to be restarted on AC, Colchicine has to be held given interaction with Coumadin. 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 DVT prophylaxis 07/03/2012 05/05/2021 Overview: Plan: Will hold off on Hep given recent GI bleed IPC's Hyperoxaluria 05/11/2012 12/07/2015 Lattice degeneration of peripheral retina 201105/05/2021 skilled nursing (current) use of anticoagulants 201005/05/2021 Overview: PCC referring MD: Michael Mcmahan Anticoagulation management encounter 2010 05/05/2021 Other and unspecified postsurgical nonabsorption 08/25/2010 05/05/2021 Wound check, abscess 08/25/2010 05/05/2021 Hypokalemia 06/16/2010 05/05/2021 Overview: Borderline K+ at 3.6 today. Discontinue own potassium. Initiate K-dur 40meq daily. Obtain K in the AM06/17: K+ 4.1 today Will continue K-Dur 40 meq on discharge. // Hypomagnesemia 06/15/2010 05/05/2021 Overview: 06/15/2010: Magnesium 1.8 this am. Magnesium 400mg daily ordered. Mag draw in am06/16: Magnesium 1.9 today. Mag OX increased to 400mg BID. Mag draw in AM. 06/17: Magnesium 2.0 today. Will continue Mag OX 400mg BID at home. Mag blood draw on Monday. // Retinal detachment with retinal defect, unspecif ied 06/14/2010 05/05/2021 Anticoagulation monitoring, INR range 2-3 201009/28/2012 Overview: ECG on admission: AF, [id number] on tele w/ pt in bed QT/QTc: 380/460 Previous AAD: N/A Coumadin dose: 7.5mg daily INRs: see epic, therapeutic since 05/20/10. [facility]. CrCl:greater than 100 Will start Tikosyn per Dr Courtney Grady Plan for DCC if the pt remains in AF, IC in chart. 06/15: INR 2.9 today. Continue on Coumadin with INR check in the AM. 06/16: INR 3.1 today. Continue Coumadin. INR in the am// 06/17: INR 3.4 today. Instructed patient to take 5mg today. INR check on Monday at [facility]// . Pulmonary embolism 03/01/2010 05/05/2021 DVT (deep venous thrombosis) 01/12/2010 Atrial fibrillation 11/03/2009 11/05/2018 Overview: Hx: Persistent A.fib s/p Mini MAZE 05/2012. Currently in sinus. Had previously failed NATHAN's and DCC x5 Assessment: Currently in Sinus On amiodarone 300mg daily for 4 weeks from D/C can now switch to 200mg daily Plan: 200 mg daily amiodarone CHADS2 score of 1, with the h/o GI bleed will hold off on anticoagulation Morbid obesity 10/14/2009 02/20/2014 Overview: s/p Gastric bypass surgery Encounter for dietary counseling and surveillanc e 10/14/2009 05/05/2021 Other specified disease of sebaceous glands 07/200805/05/2021 Corns and callosities 06/11/2008 05/05/2021 Contusion of foot 06/11/2008 05/05/2021 documented as of this encounter (statuses as of 09/01/2021) [facility] History of Past illness Narrative* Problem Noted Date Resolved Date Syncope 11/02/2018 05/05/2021 Chest pain 05/03/2018 05/05/2021 Left lower quadrant pain 05/03/2018 022 Left leg swelling 05/03/2018 05/05/2021 Presence of intraocular lens 11/14/2017 Bilateral posterior capsular opacification 11/1405/05/2021 History of detached retina repair 11/14/2017 05/05/2021 Strabismus 11/14/2017 05/05/2021 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 Continue Lovenox until INR > 2.0 or patient's INR Warfarin Indication Range Pharmacy Previous Dose Scr - If > 2mo ago, retest For calculation of Clcr & Lovenox dose Creatinine (mg/dL) Date Value 01/31/2015 1.03 Height Last 1 Encounter Ht Readings: Date: Ht: 02/06/2015 185.4 cm (6' 1) Weight Last 1 Encounter Wt Readings: Date: Wt: 02/06/2015 107.049 kg (236 lb) Lovenox Dose C-G Actual Body Wt Est Clcr = ml/min C-G Lean Body Wt Est Clcr = ml/min GlobalRPH Link The Lovenox dose above has been reviewed for Appropriateness based on pt specific criteria and disease state(s) Initials: Date: Bridge Instruction Sent to: Bridge Instructions Approved by Sent Via [employer] Name or Type of Procedure Date Warfarin Dose INR PLT QOD X 14 days Total Initials and Comments Right Click & Insert Row for Today'sDocumentation. 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 05/05/2021 Gall stones, common bile duct 12/07/2013 Epiretinal membrane 11/01/2013 05/05/2021 Shoulder pain 09/12/2013 05/05/2021 NO SHOW 05/03/2013 05/05/2021 Ingrown toenail 02/03/2013 05/05/2021 Senile nuclear sclerosis 01/29/2013 015 Dizziness and giddiness 09/21/2012 11/06/19 19 Other symptoms involving ner vous and musculoskeletal systems(781.99) 09/21/2012 05/05/2021 Ulcer of perianal area 07/03/2012 Overview: Present on admission Dieulafoy lesion (hemorrhagic) of intestine 06/0905/05/2021 Overview: Hx: Seen on EGD 06/30 - lesion clipped Had been on multiple NSAIDS; Steroids; previously for pericarditis. 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 Plan: Monitor H&H Q8H, transfuse as necessary, keep Hb>8 Consult IR for further intervention Protonix gtt for now, will switch to protonix 40mg bid when Hb is stable after 48-72 hours GI on board, appreciate their recs MSSA (methicillin susceptibl e Staphylococcus aureus) infection 07/03/2012 05/05/2021 Overview: Hx: MSSA infection of serosal fluids collection in L chest wall. S/P I/D on 06/19. On IV oxacillin till and then dc'ed on 06/23 with a 10 day course of Dicloxacillin. 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 Currently chest pain free; However, there is a high chance of recurrence since treatment has been on hold. Giving him steroid might actually put him at more risk of re bleeding. NSAID'S not an option for now. Plan: Consider Colchicine. If patient is to be restarted on AC, Colchicine has to be held given interaction with Coumadin. 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 DVT prophylaxis 07/03/2012 05/05/2021 Overview: Plan: Will hold off on Hep given recent GI bleed IPC's Hyperoxaluria 05/11/2012 12/07/2015 Lattice degeneration of peripheral retina 201105/05/2021 skilled nursing (current) use of anticoagulants 201005/05/2021 Overview: PCC referring MD: Michael Mcmahan Anticoagulation management encounter 2010 05/05/2021 Other and unspecified postsurgical nonabsorption 08/25/2010 05/05/2021 Wound check, abscess 08/25/2010 05/05/2021 Hypokalemia 06/16/2010 05/05/2021 Overview: Borderline K+ at 3.6 today. Discontinue own potassium. Initiate K-dur 40meq daily. Obtain K in the AM06/17: K+ 4.1 today Will continue K-Dur 40 meq on discharge. // Hypomagnesemia 06/15/2010 05/05/2021 Overview: 06/15/2010: Magnesium 1.8 this am. Magnesium 400mg daily ordered. Mag draw in am06/16: Magnesium 1.9 today. Mag OX increased to 400mg BID. Mag draw in AM. 06/17: Magnesium 2.0 today. Will continue Mag OX 400mg BID at home. Mag blood draw on Monday. // Retinal detachment with retinal defect, unspecif ied 06/14/2010 05/05/2021 Anticoagulation monitoring, INR range 2-3 201009/28/2012 Overview: ECG on admission: AF, [id number] on tele w/ pt in bed QT/QTc: 380/460 Previous AAD: N/A Coumadin dose: 7.5mg daily INRs: see epic, therapeutic since 05/20/10. Pt goes to [facility]. CrCl:greater than 100 Will start Tikosyn per Dr Courtney Grady Plan for DCC if the pt remains in AF, IC in chart. 06/15: INR 2.9 today. Continue on Coumadin with INR check in the AM. 06/16: INR 3.1 today. Continue Coumadin. INR in the am06/17: INR 3.4 today. Instructed patient to take 5mg today. INR check on Monday at [facility] . Pulmonary embolism 03/01/2010 05/05/2021 DVT (deep venous thrombosis) 01/12/2010 Atrial fibrillation 11/03/2009 11/05/2018 Overview: Hx: Persistent A.fib s/p Mini MAZE 05/2012. Currently in sinus. Had previously failed NATHAN's and DCC x5 Assessment: Currently in Sinus On amiodarone 300mg daily for 4 weeks from D/C can now switch to 200mg daily Plan: 200 mg daily amiodarone CHADS2 score of 1, with the h/o GI bleed will hold off on anticoagulation Morbid obesity 10/14/2009 02/20/2014 Overview: s/p Gastric bypass surgery Encounter for dietary counseling and surveillanc e 10/14/2009 05/05/2021 Other specified disease of sebaceous glands 07/200805/05/2021 Corns and callosities 06/11/2008 05/05/2021 Contusion of foot 06/11/2008 05/05/2021 documented as of this encounter (statuses as of 09/01/2021) [facility] History of Past illness Narrative* Problem Noted Date Resolved Date Syncope 11/02/2018 05/05/2021 Chest pain 05/03/2018 05/05/2021 Left lower quadrant pain 05/03/2018 022 Left leg swelling 05/03/2018 05/05/2021 Presence of intraocular lens 11/14/2017 Bilateral posterior capsular opacification 11/1405/05/2021 History of detached retina repair 11/14/2017 05/05/2021 Strabismus 11/14/2017 05/05/2021 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 Continue Lovenox until INR > 2.0 or patient's INR Warfarin Indication Range Pharmacy Previous Dose Scr - If > 2mo ago, retest For calculation of Clcr & Lovenox dose Creatinine (mg/dL) Date Value 01/31/2015 1.03 Height Last 1 Encounter Ht Readings: Date: Ht: 02/06/2015 185.4 cm (6' 1) Weight Last 1 Encounter Wt Readings: Date: Wt: 02/06/2015 107.049 kg (236 lb) Lovenox Dose C-G Actual Body Wt Est Clcr = ml/min C-G Lean Body Wt Est Clcr = ml/min GlobalRPH Link The Lovenox dose above has been reviewed for Appropriateness based on pt specific criteria and disease state(s) Initials: Date: Bridge Instruction Sent to: Bridge Instructions Approved by Sent Via [employer] Name or Type of Procedure Date Warfarin Dose INR PLT QOD X 14 days Total Initials and Comments Right Click & Insert Row for Today'sDocumentation. 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 05/05/2021 Gall stones, common bile duct 12/07/2013 Epiretinal membrane 11/01/2013 05/05/2021 Shoulder pain 09/12/2013 05/05/2021 NO SHOW 05/03/2013 05/05/2021 Ingrown toenail 02/03/2013 05/05/2021 Senile nuclear sclerosis 01/29/2013 015 Dizziness and giddiness 09/21/2012 11/06/19 19 Other symptoms involving ner vous and musculoskeletal systems(781.99) 09/21/2012 05/05/2021 Ulcer of perianal area 07/03/2012 Overview: Present on admission Dieulafoy lesion (hemorrhagic) of intestine 06/0905/05/2021 Overview: Hx: Seen on EGD 06/30 - lesion clipped Had been on multiple NSAIDS; Steroids; previously for pericarditis. 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 Plan: Monitor H&H Q8H, transfuse as necessary, keep Hb>8 Consult IR for further intervention Protonix gtt for now, will switch to protonix 40mg bid when Hb is stable after 48-72 hours GI on board, appreciate their recs MSSA (methicillin susceptibl e Staphylococcus aureus) infection 07/03/2012 05/05/2021 Overview: Hx: MSSA infection of serosal fluids collection in L chest wall. S/P I/D on 06/19. On IV oxacillin till and then dc'ed on 06/23 with a 10 day course of Dicloxacillin. 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 Currently chest pain free; However, there is a high chance of recurrence since treatment has been on hold. Giving him steroid might actually put him at more risk of re bleeding. NSAID'S not an option for now. Plan: Consider Colchicine. If patient is to be restarted on AC, Colchicine has to be held given interaction with Coumadin. 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 Discontinue own potassium. Initiate K-dur 40meq daily. Obtain K in the AM06/17: K+ 4.1 today Will continue K-Dur 40 meq on discharge. // Hypomagnesemia 06/15/2010 05/05/2021 Overview: 06/15/2010: Magnesium 1.8 this am. Magnesium 400mg daily ordered. Mag draw in am06/16: Magnesium 1.9 today. Mag OX increased to 400mg BID. Mag draw in AM. 06/17: Magnesium 2.0 today. Will continue Mag OX 400mg BID at home. Mag blood draw on Monday. // Retinal detachment with retinal defect, unspecif ied 06/14/2010 05/05/2021 Anticoagulation monitoring, INR range 2-3 201009/28/2012 Overview: ECG on admission: AF, [id number] on tele w/ pt in bed QT/QTc: 380/460 Previous AAD: N/A Coumadin dose: 7.5mg daily INRs: see epic, therapeutic since 05/20/10. Pt goes to [facility]. CrCl:greater than 100 Will start Tikosyn per Dr Courtney Grady Plan for DCC if the pt remains in AF, IC in chart. 06/15: INR 2.9 today. Continue on Coumadin with INR check in the AM. 06/16: INR 3.1 today. Continue Coumadin. INR in the am// 06/17: INR 3.4 today. Instructed patient to take 5mg today. INR check on Monday at [facility]// . Pulmonary embolism 03/01/2010 05/05/2021 DVT (deep venous thrombosis) 01/12/2010 Atrial fibrillation 11/03/2009 11/05/2018 Overview: Hx: Persistent A.fib s/p Mini MAZE 05/2012. Currently in sinus. Had previously failed NATHAN's and DCC x5 Assessment: Currently in Sinus On amiodarone 300mg daily for 4 weeks from D/C can now switch to 200mg daily Plan: 200 mg daily amiodarone CHADS2 score of 1, with the h/o GI bleed will hold off on anticoagulation Morbid obesity 10/14/2009 02/20/2014 Overview: s/p Gastric bypass surgery Encounter for dietary counseling and surveillanc e 10/14/2009 05/05/2021 Other specified disease of sebaceous glands 07/200805/05/2021 Corns and callosities 06/11/2008 05/05/2021 Contusion of foot 06/11/2008 05/05/2021 documented as of this encounter (statuses as of 09/06/2021) [facility] History of Past illness Narrative* Problem Noted Date Resolved Date Syncope 11/02/2018 05/05/2021 Chest pain 05/03/2018 05/05/2021 Left lower quadrant pain 05/03/2018 022 Left leg swelling 05/03/2018 05/05/2021 Presence of intraocular lens 11/14/2017 Bilateral posterior capsular opacification 11/1405/05/2021 History of detached retina repair 11/14/2017 05/05/2021 Strabismus 11/14/2017 05/05/2021 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 Continue Lovenox until INR > 2.0 or patient's INR Warfarin Indication Range Pharmacy Previous Dose Scr - If > 2mo ago, retest For calculation of Clcr & Lovenox dose Creatinine (mg/dL) Date Value 01/31/2015 1.03 Height Last 1 Encounter Ht Readings: Date: Ht: 02/06/2015 185.4 cm (6' 1) Weight Last 1 Encounter Wt Readings: Date: Wt: 02/06/2015 107.049 kg (236 lb) Lovenox Dose C-G Actual Body Wt Est Clcr = ml/min C-G Lean Body Wt Est Clcr = ml/min GlobalRPH Link The Lovenox dose above has been reviewed for Appropriateness based on pt specific criteria and disease state(s) Initials: Date: Bridge Instruction Sent to: Bridge Instructions Approved by Sent Via [employer] Name or Type of Procedure Date Warfarin Dose INR PLT QOD X 14 days Total Initials and Comments Right Click & Insert Row for Today'sDocumentation. 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 05/05/2021 Gall stones, common bile duct 12/07/2013 Epiretinal membrane 11/01/2013 05/05/2021 Shoulder pain 09/12/2013 05/05/2021 NO SHOW 05/03/2013 05/05/2021 Ingrown toenail 02/03/2013 05/05/2021 Senile nuclear sclerosis 01/29/2013 015 Dizziness and giddiness 09/21/2012 11/06/19 19 Other symptoms involving ner vous and musculoskeletal systems(781.99) 09/21/2012 05/05/2021 Ulcer of perianal area 07/03/2012 Overview: Present on admission Dieulafoy lesion (hemorrhagic) of intestine 06/0905/05/2021 Overview: Hx: Seen on EGD 06/30 - lesion clipped Had been on multiple NSAIDS; Steroids; previously for pericarditis. 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 Plan: Monitor H&H Q8H, transfuse as necessary, keep Hb>8 Consult IR for further intervention Protonix gtt for now, will switch to protonix 40mg bid when Hb is stable after 48-72 hours GI on board, appreciate their recs MSSA (methicillin susceptibl e Staphylococcus aureus) infection 07/03/2012 05/05/2021 Overview: Hx: MSSA infection of serosal fluids collection in L chest wall. S/P I/D on 06/19. On IV oxacillin till and then dc'ed on 06/23 with a 10 day course of Dicloxacillin. 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 Currently chest pain free; However, there is a high chance of recurrence since treatment has been on hold. Giving him steroid might actually put him at more risk of re bleeding. NSAID'S not an option for now. Plan: Consider Colchicine. If patient is to be restarted on AC, Colchicine has to be held given interaction with Coumadin. 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 DVT prophylaxis 07/03/2012 05/05/2021 Overview: Plan: Will hold off on Hep given recent GI bleed IPC's Hyperoxaluria 05/11/2012 12/07/2015 Lattice degeneration of peripheral retina 201105/05/2021 skilled nursing (current) use of anticoagulants 201005/05/2021 Overview: PCC referring MD: Michael Mcmahan Anticoagulation management encounter 2010 05/05/2021 Other and unspecified postsurgical nonabsorption 08/25/2010 05/05/2021 Wound check, abscess 08/25/2010 05/05/2021 Hypokalemia 06/16/2010 05/05/2021 Overview: Borderline K+ at 3.6 today. Discontinue own potassium. Initiate K-dur 40meq daily. Obtain K in the AM06/17: K+ 4.1 today Will continue K-Dur 40 meq on discharge. // Hypomagnesemia 06/15/2010 05/05/2021 Overview: 06/15/2010: Magnesium 1.8 this am. Magnesium 400mg daily ordered. Mag draw in am06/16: Magnesium 1.9 today. Mag OX increased to 400mg BID. Mag draw in AM. 06/17: Magnesium 2.0 today. Will continue Mag OX 400mg BID at home. Mag blood draw on Monday. // Retinal detachment with retinal defect, unspecif ied 06/14/2010 05/05/2021 Anticoagulation monitoring, INR range 2-3 201009/28/2012 Overview: ECG on admission: AF, [id number] on tele w/ pt in bed QT/QTc: 380/460 Previous AAD: N/A Coumadin dose: 7.5mg daily INRs: see epic, therapeutic since 05/20/10. [facility]. CrCl:greater than 100 Will start Tikosyn per Dr Courtney Grady Plan for DCC if the pt remains in AF, IC in chart. 06/15: INR 2.9 today. Continue on Coumadin with INR check in the AM. 06/16: INR 3.1 today. Continue Coumadin. INR in the am06/17: INR 3.4 today. Instructed patient to take 5mg today. INR check on Monday at [facility]// . Pulmonary embolism 03/01/2010 05/05/2021 DVT (deep venous thrombosis) 01/12/2010 Atrial fibrillation 11/03/2009 11/05/2018 Overview: Hx: Persistent A.fib s/p Mini MAZE 05/2012. Currently in sinus. Had previously failed NATHAN's and DCC x5 Assessment: Currently in Sinus On amiodarone 300mg daily for 4 weeks from D/C can now switch to 200mg daily Plan: 200 mg daily amiodarone CHADS2 score of 1, with the h/o GI bleed will hold off on anticoagulation Morbid obesity 10/14/2009 02/20/2014 Overview: s/p Gastric bypass surgery Encounter for dietary counseling and surveillanc e 10/14/2009 05/05/2021 Other specified disease of sebaceous glands 07/200805/05/2021 Corns and callosities 06/11/2008 05/05/2021 Contusion of foot 06/11/2008 05/05/2021 documented as of this encounter (statuses as of 10/04/2021) [facility] History of Past illness Narrative* Problem Noted Date Resolved Date Syncope 11/02/2018 05/05/2021 Chest pain 05/03/2018 05/05/2021 Left lower quadrant pain 05/03/2018 022 Left leg swelling 05/03/2018 05/05/2021 Presence of intraocular lens 11/14/2017 Bilateral posterior capsular opacification 11/1405/05/2021 History of detached retina repair 11/14/2017 05/05/2021 Strabismus 11/14/2017 05/05/2021 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 Continue Lovenox until INR > 2.0 or patient's INR Warfarin Indication Range Pharmacy Previous Dose Scr - If > 2mo ago, retest For calculation of Clcr & Lovenox dose Creatinine (mg/dL) Date Value 01/31/2015 1.03 Height Last 1 Encounter Ht Readings: Date: Ht: 02/06/2015 185.4 cm (6' 1) Weight Last 1 Encounter Wt Readings: Date: Wt: 02/06/2015 107.049 kg (236 lb) Lovenox Dose C-G Actual Body Wt Est Clcr = ml/min C-G Lean Body Wt Est Clcr = ml/min GlobalRPH Link The Lovenox dose above has been reviewed for Appropriateness based on pt specific criteria and disease state(s) Initials: Date: Bridge Instruction Sent to: Bridge Instructions Approved by Sent Via [employer] Name or Type of Procedure Date Warfarin Dose INR PLT QOD X 14 days Total Initials and Comments Right Click & Insert Row for Today'sDocumentation. 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 05/05/2021 Gall stones, common bile duct 12/07/2013 Epiretinal membrane 11/01/2013 05/05/2021 Shoulder pain 09/12/2013 05/05/2021 NO SHOW 05/03/2013 05/05/2021 Ingrown toenail 02/03/2013 05/05/2021 Senile nuclear sclerosis 01/29/2013 015 Dizziness and giddiness 09/21/2012 11/06/19 19 Other symptoms involving ner vous and musculoskeletal systems(781.99) 09/21/2012 05/05/2021 Ulcer of perianal area 07/03/2012 Overview: Present on admission Dieulafoy lesion (hemorrhagic) of intestine 06/0905/05/2021 Overview: Hx: Seen on EGD 06/30 - lesion clipped Had been on multiple NSAIDS; Steroids; previously for pericarditis. 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 Plan: Monitor H&H Q8H, transfuse as necessary, keep Hb>8 Consult IR for further intervention Protonix gtt for now, will switch to protonix 40mg bid when Hb is stable after 48-72 hours GI on board, appreciate their recs MSSA (methicillin susceptibl e Staphylococcus aureus) infection 07/03/2012 05/05/2021 Overview: Hx: MSSA infection of serosal fluids collection in L chest wall. S/P I/D on 06/19. On IV oxacillin till and then dc'ed on 06/23 with a 10 day course of Dicloxacillin. 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 Currently chest pain free; However, there is a high chance of recurrence since treatment has been on hold. Giving him steroid might actually put him at more risk of re bleeding. NSAID'S not an option for now. Plan: Consider Colchicine. If patient is to be restarted on AC, Colchicine has to be held given interaction with Coumadin. 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 DVT prophylaxis 07/03/2012 05/05/2021 Overview: Plan: Will hold off on Hep given recent GI bleed IPC's Hyperoxaluria 05/11/2012 12/07/2015 Lattice degeneration of peripheral retina 201105/05/2021 skilled nursing (current) use of anticoagulants 201005/05/2021 Overview: PCC referring MD: Michael Mcmahan Anticoagulation management encounter 2010 05/05/2021 Other and unspecified postsurgical nonabsorption 08/25/2010 05/05/2021 Wound check, abscess 08/25/2010 05/05/2021 Hypokalemia 06/16/2010 05/05/2021 Overview: Borderline K+ at 3.6 today. Discontinue own potassium. Initiate K-dur 40meq daily. Obtain K in the AM06/17: K+ 4.1 today Will continue K-Dur 40 meq on discharge. // Hypomagnesemia 06/15/2010 05/05/2021 Overview: 06/15/2010: Magnesium 1.8 this am. Magnesium 400mg daily ordered. Mag draw in am06/16: Magnesium 1.9 today. Mag OX increased to 400mg BID. Mag draw in AM. 06/17: Magnesium 2.0 today. Will continue Mag OX 400mg BID at home. Mag blood draw on Monday. // Retinal detachment with retinal defect, unspecif ied 06/14/2010 05/05/2021 Anticoagulation monitoring, INR range 2-3 201009/28/2012 Overview: ECG on admission: AF, [id number] on tele w/ pt in bed QT/QTc: 380/460 Previous AAD: N/A Coumadin dose: 7.5mg daily INRs: see epic, therapeutic since 05/20/10. [facility]. CrCl:greater than 100 Will start Tikosyn per Dr Courtney Grady Plan for DCC if the pt remains in AF, IC in chart. 06/15: INR 2.9 today. Continue on Coumadin with INR check in the AM. 06/16: INR 3.1 today. Continue Coumadin. INR in the am/06/17: INR 3.4 today. Instructed patient to take 5mg today. INR check on Monday at [facility]// . Pulmonary embolism 03/01/2010 05/05/2021 DVT (deep venous thrombosis) 01/12/2010 Atrial fibrillation 11/03/2009 11/05/2018 Overview: Hx: Persistent A.fib s/p Mini MAZE 05/2012. Currently in sinus. Had previously failed NATHAN's and DCC x5 Assessment: Currently in Sinus On amiodarone 300mg daily for 4 weeks from D/C can now switch to 200mg daily Plan: 200 mg daily amiodarone CHADS2 score of 1, with the h/o GI bleed will hold off on anticoagulation Morbid obesity 10/14/2009 02/20/2014 Overview: s/p Gastric bypass surgery Encounter for dietary counseling and surveillanc e 10/14/2009 05/05/2021 Other specified disease of sebaceous glands 07/200805/05/2021 Corns and callosities 06/11/2008 05/05/2021 Contusion of foot 06/11/2008 05/05/2021 documented as of this encounter (statuses as of 10/07/2021) [facility] History of Past illness Narrative* Problem Noted Date Resolved Date Syncope 11/02/2018 05/05/2021 Chest pain 05/03/2018 05/05/2021 Left lower quadrant pain 05/03/2018 022 Left leg swelling 05/03/2018 05/05/2021 Presence of intraocular lens 11/14/2017 Bilateral posterior capsular opacification 11/1405/05/2021 History of detached retina repair 11/14/2017 05/05/2021 Strabismus 11/14/2017 05/05/2021 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 Continue Lovenox until INR > 2.0 or patient's INR Warfarin Indication Range Pharmacy Previous Dose Scr - If > 2mo ago, retest For calculation of Clcr & Lovenox dose Creatinine (mg/dL) Date Value 01/31/2015 1.03 Height Last 1 Encounter Ht Readings: Date: Ht: 02/06/2015 185.4 cm (6' 1) Weight Last 1 Encounter Wt Readings: Date: Wt: 02/06/2015 107.049 kg (236 lb) Lovenox Dose C-G Actual Body Wt Est Clcr = ml/min C-G Lean Body Wt Est Clcr = ml/min GlobalRPH Link The Lovenox dose above has been reviewed for Appropriateness based on pt specific criteria and disease state(s) Initials: Date: Bridge Instruction Sent to: Bridge Instructions Approved by Sent Via [employer] Name or Type of Procedure Date Warfarin Dose INR PLT QOD X 14 days Total Initials and Comments Right Click & Insert Row for Today'sDocumentation. 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 05/05/2021 Gall stones, common bile duct 12/07/2013 Epiretinal membrane 11/01/2013 05/05/2021 Shoulder pain 09/12/2013 05/05/2021 NO SHOW 05/03/2013 05/05/2021 Ingrown toenail 02/03/2013 05/05/2021 Senile nuclear sclerosis 01/29/2013 015 Dizziness and giddiness 09/21/2012 11/06/19 19 Other symptoms involving ner vous and musculoskeletal systems(781.99) 09/21/2012 05/05/2021 Ulcer of perianal area 07/03/2012 Overview: Present on admission Dieulafoy lesion (hemorrhagic) of intestine 06/0905/05/2021 Overview: Hx: Seen on EGD 06/30 - lesion clipped Had been on multiple NSAIDS; Steroids; previously for pericarditis. 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 Plan: Monitor H&H Q8H, transfuse as necessary, keep Hb>8 Consult IR for further intervention Protonix gtt for now, will switch to protonix 40mg bid when Hb is stable after 48-72 hours GI on board, appreciate their recs MSSA (methicillin susceptibl e Staphylococcus aureus) infection 07/03/2012 05/05/2021 Overview: Hx: MSSA infection of serosal fluids collection in L chest wall. S/P I/D on 06/19. On IV oxacillin till and then dc'ed on 06/23 with a 10 day course of Dicloxacillin. 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 Currently chest pain free; However, there is a high chance of recurrence since treatment has been on hold. Giving him steroid might actually put him at more risk of re bleeding. NSAID'S not an option for now. Plan: Consider Colchicine. If patient is to be restarted on AC, Colchicine has to be held given interaction with Coumadin. 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 DVT prophylaxis 07/03/2012 05/05/2021 Overview: Plan: Will hold off on Hep given recent GI bleed IPC's Hyperoxaluria 05/11/2012 12/07/2015 Lattice degeneration of peripheral retina 201105/05/2021 skilled nursing (current) use of anticoagulants 201005/05/2021 Overview: PCC referring MD: Michael Mcmahan Anticoagulation management encounter 2010 05/05/2021 Other and unspecified postsurgical nonabsorption 08/25/2010 05/05/2021 Wound check, abscess 08/25/2010 05/05/2021 Hypokalemia 06/16/2010 05/05/2021 Overview: Borderline K+ at 3.6 today. Discontinue own potassium. Initiate K-dur 40meq daily. Obtain K in the AM06/17: K+ 4.1 today Will continue K-Dur 40 meq on discharge. // Hypomagnesemia 06/15/2010 05/05/2021 Overview: 06/15/2010: Magnesium 1.8 this am. Magnesium 400mg daily ordered. Mag draw in am06/16: Magnesium 1.9 today. Mag OX increased to 400mg BID. Mag draw in AM. 06/17: Magnesium 2.0 today. Will continue Mag OX 400mg BID at home. Mag blood draw on Monday. // Retinal detachment with retinal defect, unspecif ied 06/14/2010 05/05/2021 Anticoagulation monitoring, INR range 2-3 201009/28/2012 Overview: ECG on admission: AF, [id number] on tele w/ pt in bed QT/QTc: 380/460 Previous AAD: N/A Coumadin dose: 7.5mg daily INRs: see epic, therapeutic since 05/20/10. Pt goes to [facility]. CrCl:greater than 100 Will start Tikosyn per Dr Courtney Grady Plan for DCC if the pt remains in AF, IC in chart. 06/15: INR 2.9 today. Continue on Coumadin with INR check in the AM. 06/16: INR 3.1 today. Continue Coumadin. INR in the am06/17: INR 3.4 today. Instructed patient to take 5mg today. INR check on Monday at [facility]// . Pulmonary embolism 03/01/2010 05/05/2021 DVT (deep venous thrombosis) 01/12/2010 Atrial fibrillation 11/03/2009 11/05/2018 Overview: Hx: Persistent A.fib s/p Mini MAZE 05/2012. Currently in sinus. Had previously failed NAHTAN's and DCC x5 Assessment: Currently in Sinus On amiodarone 300mg daily for 4 weeks from D/C can now switch to 200mg daily Plan: 200 mg daily amiodarone CHADS2 score of 1, with the h/o GI bleed will hold off on anticoagulation Morbid obesity 10/14/2009 02/20/2014 Overview: s/p Gastric bypass surgery Encounter for dietary counseling and surveillanc e 10/14/2009 05/05/2021 Other specified disease of sebaceous glands 07/200805/05/2021 Corns and callosities 06/11/2008 05/05/2021 Contusion of foot 06/11/2008 05/05/2021 documented as of this encounter (statuses as of 10/07/2021) [facility] History of Past illness Narrative* Problem Noted Date Resolved Date Syncope 11/02/2018 05/05/2021 Chest pain 05/03/2018 05/05/2021 Left lower quadrant pain 05/03/2018 022 Left leg swelling 05/03/2018 05/05/2021 Presence of intraocular lens 11/14/2017 Bilateral posterior capsular opacification 11/1405/05/2021 History of detached retina repair 11/14/2017 05/05/2021 Strabismus 11/14/2017 05/05/2021 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 Continue Lovenox until INR > 2.0 or patient's INR Warfarin Indication Range Pharmacy Previous Dose Scr - If > 2mo ago, retest For calculation of Clcr & Lovenox dose Creatinine (mg/dL) Date Value 01/31/2015 1.03 Height Last 1 Encounter Ht Readings: Date: Ht: 02/06/2015 185.4 cm (6' 1) Weight Last 1 Encounter Wt Readings: Date: Wt: 02/06/2015 107.049 kg (236 lb) Lovenox Dose C-G Actual Body Wt Est Clcr = ml/min C-G Lean Body Wt Est Clcr = ml/min GlobalRPH Link The Lovenox dose above has been reviewed for Appropriateness based on pt specific criteria and disease state(s) Initials: Date: Bridge Instruction Sent to: Bridge Instructions Approved by Sent Via Epic Name or Type of Procedure Date Warfarin Dose INR PLT QOD X 14 days Total Initials and Comments Right Click & Insert Row for Today'sDocumentation. 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 05/05/2021 Gall stones, common bile duct 12/07/2013 Epiretinal membrane 11/01/2013 05/05/2021 Shoulder pain 09/12/2013 05/05/2021 NO SHOW 05/03/2013 05/05/2021 Ingrown toenail 02/03/2013 05/05/2021 Senile nuclear sclerosis 01/29/2013 015 Dizziness and giddiness 09/21/2012 11/06/19 19 Other symptoms involving ner vous and musculoskeletal systems(781.99) 09/21/2012 05/05/2021 Ulcer of perianal area 07/03/2012 Overview: Present on admission Dieulafoy lesion (hemorrhagic) of intestine 06/0905/05/2021 Overview: Hx: Seen on EGD 06/30 - lesion clipped Had been on multiple NSAIDS; Steroids; previously for pericarditis. 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 Plan: Monitor H&H Q8H, transfuse as necessary, keep Hb>8 Consult IR for further intervention Protonix gtt for now, will switch to protonix 40mg bid when Hb is stable after 48-72 hours GI on board, appreciate their recs MSSA (methicillin susceptibl e Staphylococcus aureus) infection 07/03/2012 05/05/2021 Overview: Hx: MSSA infection of serosal fluids collection in L chest wall. S/P I/D on 06/19. On IV oxacillin till and then dc'ed on 06/23 with a 10 day course of Dicloxacillin. 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 Currently chest pain free; However, there is a high chance of recurrence since treatment has been on hold. Giving him steroid might actually put him at more risk of re bleeding. NSAID'S not an option for now. Plan: Consider Colchicine. If patient is to be restarted on AC, Colchicine has to be held given interaction with Coumadin. 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 Discontinue own potassium. Initiate K-dur 40meq daily. Obtain K in the AM/ 06/17: K+ 4.1 today Will continue K-Dur 40 meq on discharge. // Hypomagnesemia 06/15/2010 05/05/2021 Overview: 06/15/2010: Magnesium 1.8 this am. Magnesium 400mg daily ordered. Mag draw in am06/16: Magnesium 1.9 today. Mag OX increased to 400mg BID. Mag draw in AM. 06/17: Magnesium 2.0 today. Will continue Mag OX 400mg BID at home. Mag blood draw on Monday. // Retinal detachment with retinal defect, unspecif ied 06/14/2010 05/05/2021 Anticoagulation monitoring, INR range 2-3 201009/28/2012 Overview: ECG on admission: AF, [id number] on tele w/ pt in bed QT/QTc: 380/460 Previous AAD: N/A Coumadin dose: 7.5mg daily INRs: see epic, therapeutic since 05/20/10. Pt goes to [facility]. CrCl:greater than 100 Will start Tikosyn per Dr Courtney Grady Plan for DCC if the pt remains in AF, IC in chart. 06/15: INR 2.9 today. Continue on Coumadin with INR check in the AM. 06/16: INR 3.1 today. Continue Coumadin. INR in the am06/17: INR 3.4 today. Instructed patient to take 5mg today. INR check on Monday at [facility] . Pulmonary embolism 03/01/2010 05/05/2021 DVT (deep venous thrombosis) 01/12/2010 Atrial fibrillation 11/03/2009 11/05/2018 Overview: Hx: Persistent A.fib s/p Mini MAZE 05/2012. Currently in sinus. Had previously failed NATHAN's and DCC x5 Assessment: Currently in Sinus On amiodarone 300mg daily for 4 weeks from D/C can now switch to 200mg daily Plan: 200 mg daily amiodarone CHADS2 score of 1, with the h/o GI bleed will hold off on anticoagulation Morbid obesity 10/14/2009 02/20/2014 Overview: s/p Gastric bypass surgery Encounter for dietary counseling and surveillanc e 10/14/2009 05/05/2021 Other specified disease of sebaceous glands 07/200805/05/2021 Corns and callosities 06/11/2008 05/05/2021 Contusion of foot 06/11/2008 05/05/2021 documented as of this encounter (statuses as of 10/12/2021) [facility] History of Past illness Narrative* Problem Noted Date Resolved Date Syncope 11/02/2018 05/05/2021 Chest pain 05/03/2018 05/05/2021 Left lower quadrant pain 05/03/2018 022 Left leg swelling 05/03/2018 05/05/2021 Presence of intraocular lens 11/14/2017 Bilateral posterior capsular opacification 11/1405/05/2021 History of detached retina repair 11/14/2017 05/05/2021 Strabismus 11/14/2017 05/05/2021 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 Continue Lovenox until INR > 2.0 or patient's INR Warfarin Indication Range Pharmacy Previous Dose Scr - If > 2mo ago, retest For calculation of Clcr & Lovenox dose Creatinine (mg/dL) Date Value 01/31/2015 1.03 Height Last 1 Encounter Ht Readings: Date: Ht: 02/06/2015 185.4 cm (6' 1) Weight Last 1 Encounter Wt Readings: Date: Wt: 02/06/2015 107.049 kg (236 lb) Lovenox Dose C-G Actual Body Wt Est Clcr = ml/min C-G Lean Body Wt Est Clcr = ml/min GlobalRPH Link The Lovenox dose above has been reviewed for Appropriateness based on pt specific criteria and disease state(s) Initials: Date: Bridge Instruction Sent to: Bridge Instructions Approved by Sent Via Epic Name or Type of Procedure Date Warfarin Dose INR PLT QOD X 14 days Total Initials and Comments Right Click & Insert Row for Today'sDocumentation. 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 05/05/2021 Gall stones, common bile duct 12/07/2013 Epiretinal membrane 11/01/2013 05/05/2021 Shoulder pain 09/12/2013 05/05/2021 NO SHOW 05/03/2013 05/05/2021 Ingrown toenail 02/03/2013 05/05/2021 Senile nuclear sclerosis 01/29/2013 015 Dizziness and giddiness 09/21/2012 11/06/19 19 Other symptoms involving ner vous and musculoskeletal systems(781.99) 09/21/2012 05/05/2021 Ulcer of perianal area 07/03/2012 Overview: Present on admission Dieulafoy lesion (hemorrhagic) of intestine 06/0905/05/2021 Overview: Hx: Seen on EGD 06/30 - lesion clipped Had been on multiple NSAIDS; Steroids; previously for pericarditis. 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 Plan: Monitor H&H Q8H, transfuse as necessary, keep Hb>8 Consult IR for further intervention Protonix gtt for now, will switch to protonix 40mg bid when Hb is stable after 48-72 hours GI on board, appreciate their recs MSSA (methicillin susceptibl e Staphylococcus aureus) infection 07/03/2012 05/05/2021 Overview: Hx: MSSA infection of serosal fluids collection in L chest wall. S/P I/D on 06/19. On IV oxacillin till and then dc'ed on 06/23 with a 10 day course of Dicloxacillin. 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 Currently chest pain free; However, there is a high chance of recurrence since treatment has been on hold. Giving him steroid might actually put him at more risk of re bleeding. NSAID'S not an option for now. Plan: Consider Colchicine. If patient is to be restarted on AC, Colchicine has to be held given interaction with Coumadin. 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 DVT prophylaxis 07/03/2012 05/05/2021 Overview: Plan: Will hold off on Hep given recent GI bleed IPC's Hyperoxaluria 05/11/2012 12/07/2015 Lattice degeneration of peripheral retina 201105/05/2021 skilled nursing (current) use of anticoagulants 201005/05/2021 Overview: PCC referring MD: Michael Mcmahan Anticoagulation management encounter 2010 05/05/2021 Other and unspecified postsurgical nonabsorption 08/25/2010 05/05/2021 Wound check, abscess 08/25/2010 05/05/2021 Hypokalemia 06/16/2010 05/05/2021 Overview: Borderline K+ at 3.6 today. Discontinue own potassium. Initiate K-dur 40meq daily. Obtain K in the AM06/17: K+ 4.1 today Will continue K-Dur 40 meq on discharge. // Hypomagnesemia 06/15/2010 05/05/2021 Overview: 06/15/2010: Magnesium 1.8 this am. Magnesium 400mg daily ordered. Mag draw in am06/16: Magnesium 1.9 today. Mag OX increased to 400mg BID. Mag draw in AM. 06/17: Magnesium 2.0 today. Will continue Mag OX 400mg BID at home. Mag blood draw on Monday. // Retinal detachment with retinal defect, unspecif ied 06/14/2010 05/05/2021 Anticoagulation monitoring, INR range 2-3 201009/28/2012 Overview: ECG on admission: AF, [id number] on tele w/ pt in bed QT/QTc: 380/460 Previous AAD: N/A Coumadin dose: 7.5mg daily INRs: see epic, therapeutic since 05/20/10. Pt goes to [facility]. CrCl:greater than 100 Will start Tikosyn per Dr Courtney Grady Plan for DCC if the pt remains in AF, IC in chart. 06/15: INR 2.9 today. Continue on Coumadin with INR check in the AM. 06/16: INR 3.1 today. Continue Coumadin. INR in the am// 06/17: INR 3.4 today. Instructed patient to take 5mg today. INR check on Monday at [facility] . Pulmonary embolism 03/01/2010 05/05/2021 DVT (deep venous thrombosis) 01/12/2010 Atrial fibrillation 11/03/2009 11/05/2018 Overview: Hx: Persistent A.fib s/p Mini MAZE 05/2012. Currently in sinus. Had previously failed NATHAN's and DCC x5 Assessment: Currently in Sinus On amiodarone 300mg daily for 4 weeks from D/C can now switch to 200mg daily Plan: 200 mg daily amiodarone CHADS2 score of 1, with the h/o GI bleed will hold off on anticoagulation Morbid obesity 10/14/2009 02/20/2014 Overview: s/p Gastric bypass surgery Encounter for dietary counseling and surveillanc e 10/14/2009 05/05/2021 Other specified disease of sebaceous glands 07/200805/05/2021 Corns and callosities 06/11/2008 05/05/2021 Contusion of foot 06/11/2008 05/05/2021 documented as of this encounter (statuses as of 10/29/2021) [facility] History of Past illness Narrative* Problem Noted Date Resolved Date Syncope 11/02/2018 05/05/2021 Chest pain 05/03/2018 05/05/2021 Left lower quadrant pain 05/03/2018 022 Left leg swelling 05/03/2018 05/05/2021 Presence of intraocular lens 11/14/2017 Bilateral posterior capsular opacification 11/1405/05/2021 History of detached retina repair 11/14/2017 05/05/2021 Strabismus 11/14/2017 05/05/2021 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 Continue Lovenox until INR > 2.0 or patient's INR Warfarin Indication Range Pharmacy Previous Dose Scr - If > 2mo ago, retest For calculation of Clcr & Lovenox dose Creatinine (mg/dL) Date Value 01/31/2015 1.03 Height Last 1 Encounter Ht Readings: Date: Ht: 02/06/2015 185.4 cm (6' 1) Weight Last 1 Encounter Wt Readings: Date: Wt: 02/06/2015 107.049 kg (236 lb) Lovenox Dose C-G Actual Body Wt Est Clcr = ml/min C-G Lean Body Wt Est Clcr = ml/min GlobalRPH Link The Lovenox dose above has been reviewed for Appropriateness based on pt specific criteria and disease state(s) Initials: Date: Bridge Instruction Sent to: Bridge Instructions Approved by Sent Via Epic Name or Type of Procedure Date Warfarin Dose INR PLT QOD X 14 days Total Initials and Comments Right Click & Insert Row for Today'sDocumentation. 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 05/05/2021 Gall stones, common bile duct 12/07/2013 Epiretinal membrane 11/01/2013 05/05/2021 Shoulder pain 09/12/2013 05/05/2021 NO SHOW 05/03/2013 05/05/2021 Ingrown toenail 02/03/2013 05/05/2021 Senile nuclear sclerosis 01/29/2013 015 Dizziness and giddiness 09/21/2012 11/06/19 19 Other symptoms involving ner vous and musculoskeletal systems(781.99) 09/21/2012 05/05/2021 Ulcer of perianal area 07/03/2012 Overview: Present on admission Dieulafoy lesion (hemorrhagic) of intestine 06/0905/05/2021 Overview: Hx: Seen on EGD 06/30 - lesion clipped Had been on multiple NSAIDS; Steroids; previously for pericarditis. 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 Plan: Monitor H&H Q8H, transfuse as necessary, keep Hb>8 Consult IR for further intervention Protonix gtt for now, will switch to protonix 40mg bid when Hb is stable after 48-72 hours GI on board, appreciate their recs MSSA (methicillin susceptibl e Staphylococcus aureus) infection 07/03/2012 05/05/2021 Overview: Hx: MSSA infection of serosal fluids collection in L chest wall. S/P I/D on 06/19. On IV oxacillin till and then dc'ed on 06/23 with a 10 day course of Dicloxacillin. 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 Currently chest pain free; However, there is a high chance of recurrence since treatment has been on hold. Giving him steroid might actually put him at more risk of re bleeding. NSAID'S not an option for now. Plan: Consider Colchicine. If patient is to be restarted on AC, Colchicine has to be held given interaction with Coumadin. 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 DVT prophylaxis 07/03/2012 05/05/2021 Overview: Plan: Will hold off on Hep given recent GI bleed IPC's Hyperoxaluria 05/11/2012 12/07/2015 Lattice degeneration of peripheral retina 201105/05/2021 skilled nursing (current) use of anticoagulants 201005/05/2021 Overview: PCC referring MD: Michael Mcmahan Anticoagulation management encounter 2010 05/05/2021 Other and unspecified postsurgical nonabsorption 08/25/2010 05/05/2021 Wound check, abscess 08/25/2010 05/05/2021 Hypokalemia 06/16/2010 05/05/2021 Overview: Borderline K+ at 3.6 today. Discontinue own potassium. Initiate K-dur 40meq daily. Obtain K in the AM06/17: K+ 4.1 today Will continue K-Dur 40 meq on discharge. // Hypomagnesemia 06/15/2010 05/05/2021 Overview: 06/15/2010: Magnesium 1.8 this am. Magnesium 400mg daily ordered. Mag draw in am06/16: Magnesium 1.9 today. Mag OX increased to 400mg BID. Mag draw in AM. 06/17: Magnesium 2.0 today. Will continue Mag OX 400mg BID at home. Mag blood draw on Monday. // Retinal detachment with retinal defect, unspecif ied 06/14/2010 05/05/2021 Anticoagulation monitoring, INR range 2-3 201009/28/2012 Overview: ECG on admission: AF, [id number] on tele w/ pt in bed QT/QTc: 380/460 Previous AAD: N/A Coumadin dose: 7.5mg daily INRs: see epic, therapeutic since 05/20/10. [facility]. CrCl:greater than 100 Will start Tikosyn per Dr Courtney Grady Plan for DCC if the pt remains in AF, IC in chart. 06/15: INR 2.9 today. Continue on Coumadin with INR check in the AM. 06/16: INR 3.1 today. Continue Coumadin. INR in the am06/17: INR 3.4 today. Instructed patient to take 5mg today. INR check on Monday at [facility] . Pulmonary embolism 03/01/2010 05/05/2021 DVT (deep venous thrombosis) 01/12/2010 Atrial fibrillation 11/03/2009 11/05/2018 Overview: Hx: Persistent A.fib s/p Mini MAZE 05/2012. Currently in sinus. Had previously failed NATHAN's and DCC x5 Assessment: Currently in Sinus On amiodarone 300mg daily for 4 weeks from D/C can now switch to 200mg daily Plan: 200 mg daily amiodarone CHADS2 score of 1, with the h/o GI bleed will hold off on anticoagulation Morbid obesity 10/14/2009 02/20/2014 Overview: s/p Gastric bypass surgery Encounter for dietary counseling and surveillanc e 10/14/2009 05/05/2021 Other specified disease of sebaceous glands 07/200805/05/2021 Corns and callosities 06/11/2008 05/05/2021 Contusion of foot 06/11/2008 05/05/2021 documented as of this encounter (statuses as of 11/29/2021) [facility] History of Past illness Narrative* Problem Noted Date Resolved Date Syncope 11/02/2018 05/05/2021 Chest pain 05/03/2018 05/05/2021 Left lower quadrant pain 05/03/2018 022 Left leg swelling 05/03/2018 05/05/2021 Presence of intraocular lens 11/14/2017 Bilateral posterior capsular opacification 11/1405/05/2021 History of detached retina repair 11/14/2017 05/05/2021 Strabismus 11/14/2017 05/05/2021 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 Continue Lovenox until INR > 2.0 or patient's INR Warfarin Indication Range Pharmacy Previous Dose Scr - If > 2mo ago, retest For calculation of Clcr & Lovenox dose Creatinine (mg/dL) Date Value 01/31/2015 1.03 Height Last 1 Encounter Ht Readings: Date: Ht: 02/06/2015 185.4 cm (6' 1) Weight Last 1 Encounter Wt Readings: Date: Wt: 02/06/2015 107.049 kg (236 lb) Lovenox Dose C-G Actual Body Wt Est Clcr = ml/min C-G Lean Body Wt Est Clcr = ml/min GlobalRPH Link The Lovenox dose above has been reviewed for Appropriateness based on pt specific criteria and disease state(s) Initials: Date: Bridge Instruction Sent to: Bridge Instructions Approved by Sent Via [employer] Name or Type of Procedure Date Warfarin Dose INR PLT QOD X 14 days Total Initials and Comments Right Click & Insert Row for Today'sDocumentation. 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 05/05/2021 Gall stones, common bile duct 12/07/2013 Epiretinal membrane 11/01/2013 05/05/2021 Shoulder pain 09/12/2013 05/05/2021 NO SHOW 05/03/2013 05/05/2021 Ingrown toenail 02/03/2013 05/05/2021 Senile nuclear sclerosis 01/29/2013 015 Dizziness and giddiness 09/21/2012 11/06/19 19 Other symptoms involving ner vous and musculoskeletal systems(781.99) 09/21/2012 05/05/2021 Ulcer of perianal area 07/03/2012 Overview: Present on admission Dieulafoy lesion (hemorrhagic) of intestine 06/0905/05/2021 Overview: Hx: Seen on EGD 06/30 - lesion clipped Had been on multiple NSAIDS; Steroids; previously for pericarditis. 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 Plan: Monitor H&H Q8H, transfuse as necessary, keep Hb>8 Consult IR for further intervention Protonix gtt for now, will switch to protonix 40mg bid when Hb is stable after 48-72 hours GI on board, appreciate their recs MSSA (methicillin susceptibl e Staphylococcus aureus) infection 07/03/2012 05/05/2021 Overview: Hx: MSSA infection of serosal fluids collection in L chest wall. S/P I/D on 06/19. On IV oxacillin till and then dc'ed on 06/23 with a 10 day course of Dicloxacillin. 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 Currently chest pain free; However, there is a high chance of recurrence since treatment has been on hold. Giving him steroid might actually put him at more risk of re bleeding. NSAID'S not an option for now. Plan: Consider Colchicine. If patient is to be restarted on AC, Colchicine has to be held given interaction with Coumadin. 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 DVT prophylaxis 07/03/2012 05/05/2021 Overview: Plan: Will hold off on Hep given recent GI bleed IPC's Hyperoxaluria 05/11/2012 12/07/2015 Lattice degeneration of peripheral retina 201105/05/2021 skilled nursing (current) use of anticoagulants 201005/05/2021 Overview: PCC referring MD: Michael Mcmahan Anticoagulation management encounter 2010 05/05/2021 Other and unspecified postsurgical nonabsorption 08/25/2010 05/05/2021 Wound check, abscess 08/25/2010 05/05/2021 Hypokalemia 06/16/2010 05/05/2021 Overview: Borderline K+ at 3.6 today. Discontinue own potassium. Initiate K-dur 40meq daily. Obtain K in the AM06/17: K+ 4.1 today Will continue K-Dur 40 meq on discharge. // Hypomagnesemia 06/15/2010 05/05/2021 Overview: 06/15/2010: Magnesium 1.8 this am. Magnesium 400mg daily ordered. Mag draw in am06/16: Magnesium 1.9 today. Mag OX increased to 400mg BID. Mag draw in AM. 06/17: Magnesium 2.0 today. Will continue Mag OX 400mg BID at home. Mag blood draw on Monday. // Retinal detachment with retinal defect, unspecif ied 06/14/2010 05/05/2021 Anticoagulation monitoring, INR range 2-3 201009/28/2012 Overview: ECG on admission: AF, [id number] on tele w/ pt in bed QT/QTc: 380/460 Previous AAD: N/A Coumadin dose: 7.5mg daily INRs: see epic, therapeutic since 05/20/10. [facility]. CrCl:greater than 100 Will start Tikosyn per Dr Courtney Grady Plan for DCC if the pt remains in AF, IC in chart. 06/15: INR 2.9 today. Continue on Coumadin with INR check in the AM. 06/16: INR 3.1 today. Continue Coumadin. INR in the am// 06/17: INR 3.4 today. Instructed patient to take 5mg today. INR check on Monday at [facility]// . Pulmonary embolism 03/01/2010 05/05/2021 DVT (deep venous thrombosis) 01/12/2010 Atrial fibrillation 11/03/2009 11/05/2018 Overview: Hx: Persistent A.fib s/p Mini MAZE 05/2012. Currently in sinus. Had previously failed NATHAN's and DCC x5 Assessment: Currently in Sinus On amiodarone 300mg daily for 4 weeks from D/C can now switch to 200mg daily Plan: 200 mg daily amiodarone CHADS2 score of 1, with the h/o GI bleed will hold off on anticoagulation Morbid obesity 10/14/2009 02/20/2014 Overview: s/p Gastric bypass surgery Encounter for dietary counseling and surveillanc e 10/14/2009 05/05/2021 Other specified disease of sebaceous glands 07/200805/05/2021 Corns and callosities 06/11/2008 05/05/2021 Contusion of foot 06/11/2008 05/05/2021 documented as of this encounter (statuses as of 11/29/2021) [facility] History of Past illness Narrative* Problem Noted Date Resolved Date Syncope 11/02/2018 05/05/2021 Chest pain 05/03/2018 05/05/2021 Left lower quadrant pain 05/03/2018 022 Left leg swelling 05/03/2018 05/05/2021 Presence of intraocular lens 11/14/2017 Bilateral posterior capsular opacification 11/1405/05/2021 History of detached retina repair 11/14/2017 05/05/2021 Strabismus 11/14/2017 05/05/2021 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 Continue Lovenox until INR > 2.0 or patient's INR Warfarin Indication Range Pharmacy Previous Dose Scr - If > 2mo ago, retest For calculation of Clcr & Lovenox dose Creatinine (mg/dL) Date Value 01/31/2015 1.03 Height Last 1 Encounter Ht Readings: Date: Ht: 02/06/2015 185.4 cm (6' 1) Weight Last 1 Encounter Wt Readings: Date: Wt: 02/06/2015 107.049 kg (236 lb) Lovenox Dose C-G Actual Body Wt Est Clcr = ml/min C-G Lean Body Wt Est Clcr = ml/min GlobalRPH Link The Lovenox dose above has been reviewed for Appropriateness based on pt specific criteria and disease state(s) Initials: Date: Bridge Instruction Sent to: Bridge Instructions Approved by Sent Via Epic Name or Type of Procedure Date Warfarin Dose INR PLT QOD X 14 days Total Initials and Comments Right Click & Insert Row for Today'sDocumentation. 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 05/05/2021 Gall stones, common bile duct 12/07/2013 Epiretinal membrane 11/01/2013 05/05/2021 Shoulder pain 09/12/2013 05/05/2021 NO SHOW 05/03/2013 05/05/2021 Ingrown toenail 02/03/2013 05/05/2021 Senile nuclear sclerosis 01/29/2013 015 Dizziness and giddiness 09/21/2012 11/06/19 19 Other symptoms involving ner vous and musculoskeletal systems(781.99) 09/21/2012 05/05/2021 Ulcer of perianal area 07/03/2012 Overview: Present on admission Dieulafoy lesion (hemorrhagic) of intestine 06/0905/05/2021 Overview: Hx: Seen on EGD 06/30 - lesion clipped Had been on multiple NSAIDS; Steroids; previously for pericarditis. 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 Plan: Monitor H&H Q8H, transfuse as necessary, keep Hb>8 Consult IR for further intervention Protonix gtt for now, will switch to protonix 40mg bid when Hb is stable after 48-72 hours GI on board, appreciate their recs MSSA (methicillin susceptibl e Staphylococcus aureus) infection 07/03/2012 05/05/2021 Overview: Hx: MSSA infection of serosal fluids collection in L chest wall. S/P I/D on 06/19. On IV oxacillin till and then dc'ed on 06/23 with a 10 day course of Dicloxacillin. 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 Currently chest pain free; However, there is a high chance of recurrence since treatment has been on hold. Giving him steroid might actually put him at more risk of re bleeding. NSAID'S not an option for now. Plan: Consider Colchicine. If patient is to be restarted on AC, Colchicine has to be held given interaction with Coumadin. 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 Discontinue own potassium. Initiate K-dur 40meq daily. Obtain K in the AM06/17: K+ 4.1 today Will continue K-Dur 40 meq on discharge. // Hypomagnesemia 06/15/2010 05/05/2021 Overview: 06/15/2010: Magnesium 1.8 this am. Magnesium 400mg daily ordered. Mag draw in am06/16: Magnesium 1.9 today. Mag OX increased to 400mg BID. Mag draw in AM. 06/17: Magnesium 2.0 today. Will continue Mag OX 400mg BID at home. Mag blood draw on Monday. // Retinal detachment with retinal defect, unspecif ied 06/14/2010 05/05/2021 Anticoagulation monitoring, INR range 2-3 201009/28/2012 Overview: ECG on admission: AF, [id number] on tele w/ pt in bed QT/QTc: 380/460 Previous AAD: N/A Coumadin dose: 7.5mg daily INRs: see epic, therapeutic since 05/20/10. Pt goes to [facility]. CrCl:greater than 100 Will start Tikosyn per Dr Courtney Grady Plan for DCC if the pt remains in AF, IC in chart. 06/15: INR 2.9 today. Continue on Coumadin with INR check in the AM. 06/16: INR 3.1 today. Continue Coumadin. INR in the am06/17: INR 3.4 today. Instructed patient to take 5mg today. INR check on Monday at [facility]// . Pulmonary embolism 03/01/2010 05/05/2021 DVT (deep venous thrombosis) 01/12/2010 Atrial fibrillation 11/03/2009 11/05/2018 Overview: Hx: Persistent A.fib s/p Mini MAZE 05/2012. Currently in sinus. Had previously failed NATHAN's and DCC x5 Assessment: Currently in Sinus On amiodarone 300mg daily for 4 weeks from D/C can now switch to 200mg daily Plan: 200 mg daily amiodarone CHADS2 score of 1, with the h/o GI bleed will hold off on anticoagulation Morbid obesity 10/14/2009 02/20/2014 Overview: s/p Gastric bypass surgery Encounter for dietary counseling and surveillanc e 10/14/2009 05/05/2021 Other specified disease of sebaceous glands 07/200805/05/2021 Corns and callosities 06/11/2008 05/05/2021 Contusion of foot 06/11/2008 05/05/2021 documented as of this encounter (statuses as of 2021) [facility] History of Past illness Narrative* Problem Noted Date Resolved Date Syncope 11/02/2018 05/05/2021 Chest pain 05/03/2018 05/05/2021 Left lower quadrant pain 05/03/2018 022 Left leg swelling 05/03/2018 05/05/2021 Presence of intraocular lens 11/14/2017 Bilateral posterior capsular opacification 11/1405/05/2021 History of detached retina repair 11/14/2017 05/05/2021 Strabismus 11/14/2017 05/05/2021 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 Continue Lovenox until INR > 2.0 or patient's INR Warfarin Indication Range Pharmacy Previous Dose Scr - If > 2mo ago, retest For calculation of Clcr & Lovenox dose Creatinine (mg/dL) Date Value 01/31/2015 1.03 Height Last 1 Encounter Ht Readings: Date: Ht: 02/06/2015 185.4 cm (6' 1) Weight Last 1 Encounter Wt Readings: Date: Wt: 02/06/2015 107.049 kg (236 lb) Lovenox Dose C-G Actual Body Wt Est Clcr = ml/min C-G Lean Body Wt Est Clcr = ml/min GlobalRPH Link The Lovenox dose above has been reviewed for Appropriateness based on pt specific criteria and disease state(s) Initials: Date: Bridge Instruction Sent to: Bridge Instructions Approved by Sent Via [employer] Name or Type of Procedure Date Warfarin Dose INR PLT QOD X 14 days Total Initials and Comments Right Click & Insert Row for Today'sDocumentation. 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 05/05/2021 Gall stones, common bile duct 12/07/2013 Epiretinal membrane 11/01/2013 05/05/2021 Shoulder pain 09/12/2013 05/05/2021 NO SHOW 05/03/2013 05/05/2021 Ingrown toenail 02/03/2013 05/05/2021 Senile nuclear sclerosis 01/29/2013 015 Dizziness and giddiness 09/21/2012 11/06/19 19 Other symptoms involving ner vous and musculoskeletal systems(781.99) 09/21/2012 05/05/2021 Ulcer of perianal area 07/03/2012 Overview: Present on admission Dieulafoy lesion (hemorrhagic) of intestine 06/0905/05/2021 Overview: Hx: Seen on EGD 06/30 - lesion clipped Had been on multiple NSAIDS; Steroids; previously for pericarditis. 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 Plan: Monitor H&H Q8H, transfuse as necessary, keep Hb>8 Consult IR for further intervention Protonix gtt for now, will switch to protonix 40mg bid when Hb is stable after 48-72 hours GI on board, appreciate their recs MSSA (methicillin susceptibl e Staphylococcus aureus) infection 07/03/2012 05/05/2021 Overview: Hx: MSSA infection of serosal fluids collection in L chest wall. S/P I/D on 06/19. On IV oxacillin till and then dc'ed on 06/23 with a 10 day course of Dicloxacillin. 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 Currently chest pain free; However, there is a high chance of recurrence since treatment has been on hold. Giving him steroid might actually put him at more risk of re bleeding. NSAID'S not an option for now. Plan: Consider Colchicine. If patient is to be restarted on AC, Colchicine has to be held given interaction with Coumadin. 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 DVT prophylaxis 07/03/2012 05/05/2021 Overview: Plan: Will hold off on Hep given recent GI bleed IPC's Hyperoxaluria 05/11/2012 12/07/2015 Lattice degeneration of peripheral retina 201105/05/2021 skilled nursing (current) use of anticoagulants 201005/05/2021 Overview: PCC referring MD: Michael Mcmahan Anticoagulation management encounter 2010 05/05/2021 Other and unspecified postsurgical nonabsorption 08/25/2010 05/05/2021 Wound check, abscess 08/25/2010 05/05/2021 Hypokalemia 06/16/2010 05/05/2021 Overview: Borderline K+ at 3.6 today. Discontinue own potassium. Initiate K-dur 40meq daily. Obtain K in the AM06/17: K+ 4.1 today Will continue K-Dur 40 meq on discharge. // Hypomagnesemia 06/15/2010 05/05/2021 Overview: 06/15/2010: Magnesium 1.8 this am. Magnesium 400mg daily ordered. Mag draw in am06/16: Magnesium 1.9 today. Mag OX increased to 400mg BID. Mag draw in AM. 06/17: Magnesium 2.0 today. Will continue Mag OX 400mg BID at home. Mag blood draw on Monday. // Retinal detachment with retinal defect, unspecif ied 06/14/2010 05/05/2021 Anticoagulation monitoring, INR range 2-3 201009/28/2012 Overview: ECG on admission: AF, [id number] on tele w/ pt in bed QT/QTc: 380/460 Previous AAD: N/A Coumadin dose: 7.5mg daily INRs: see epic, therapeutic since 05/20/10. Pt goes to [facility]. CrCl:greater than 100 Will start Tikosyn per Dr Courtney Grady Plan for DCC if the pt remains in AF, IC in chart. 06/15: INR 2.9 today. Continue on Coumadin with INR check in the AM. 06/16: INR 3.1 today. Continue Coumadin. INR in the am// 06/17: INR 3.4 today. Instructed patient to take 5mg today. INR check on Monday at [facility]// . Pulmonary embolism 03/01/2010 05/05/2021 DVT (deep venous thrombosis) 01/12/2010 Atrial fibrillation 11/03/2009 11/05/2018 Overview: Hx: Persistent A.fib s/p Mini MAZE 05/2012. Currently in sinus. Had previously failed NATHAN's and DCC x5 Assessment: Currently in Sinus On amiodarone 300mg daily for 4 weeks from D/C can now switch to 200mg daily Plan: 200 mg daily amiodarone CHADS2 score of 1, with the h/o GI bleed will hold off on anticoagulation Morbid obesity 10/14/2009 02/20/2014 Overview: s/p Gastric bypass surgery Encounter for dietary counseling and surveillanc e 10/14/2009 05/05/2021 Other specified disease of sebaceous glands 07/200805/05/2021 Corns and callosities 06/11/2008 05/05/2021 Contusion of foot 06/11/2008 05/05/2021 documented as of this encounter (statuses as of 12/02/2021) [facility] History of Past illness Narrative* Problem Noted Date Resolved Date Syncope 11/02/2018 05/05/2021 Chest pain 05/03/2018 05/05/2021 Left lower quadrant pain 05/03/2018 022 Left leg swelling 05/03/2018 05/05/2021 Presence of intraocular lens 11/14/2017 Bilateral posterior capsular opacification 11/1405/05/2021 History of detached retina repair 11/14/2017 05/05/2021 Strabismus 11/14/2017 05/05/2021 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 Continue Lovenox until INR > 2.0 or patient's INR Warfarin Indication Range Pharmacy Previous Dose Scr - If > 2mo ago, retest For calculation of Clcr & Lovenox dose Creatinine (mg/dL) Date Value 01/31/2015 1.03 Height Last 1 Encounter Ht Readings: Date: Ht: 02/06/2015 185.4 cm (6' 1) Weight Last 1 Encounter Wt Readings: Date: Wt: 02/06/2015 107.049 kg (236 lb) Lovenox Dose C-G Actual Body Wt Est Clcr = ml/min C-G Lean Body Wt Est Clcr = ml/min GlobalRPH Link The Lovenox dose above has been reviewed for Appropriateness based on pt specific criteria and disease state(s) Initials: Date: Bridge Instruction Sent to: Bridge Instructions Approved by Sent Via [employer] Name or Type of Procedure Date Warfarin Dose INR PLT QOD X 14 days Total Initials and Comments Right Click & Insert Row for Today'sDocumentation. 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 05/05/2021 Gall stones, common bile duct 12/07/2013 Epiretinal membrane 11/01/2013 05/05/2021 Shoulder pain 09/12/2013 05/05/2021 NO SHOW 05/03/2013 05/05/2021 Ingrown toenail 02/03/2013 05/05/2021 Senile nuclear sclerosis 01/29/2013 015 Dizziness and giddiness 09/21/2012 11/06/19 19 Other symptoms involving ner vous and musculoskeletal systems(781.99) 09/21/2012 05/05/2021 Ulcer of perianal area 07/03/2012 Overview: Present on admission Dieulafoy lesion (hemorrhagic) of intestine 06/0905/05/2021 Overview: Hx: Seen on EGD 06/30 - lesion clipped Had been on multiple NSAIDS; Steroids; previously for pericarditis. 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 Plan: Monitor H&H Q8H, transfuse as necessary, keep Hb>8 Consult IR for further intervention Protonix gtt for now, will switch to protonix 40mg bid when Hb is stable after 48-72 hours GI on board, appreciate their recs MSSA (methicillin susceptibl e Staphylococcus aureus) infection 07/03/2012 05/05/2021 Overview: Hx: MSSA infection of serosal fluids collection in L chest wall. S/P I/D on 06/19. On IV oxacillin till and then dc'ed on 06/23 with a 10 day course of Dicloxacillin. 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 Currently chest pain free; However, there is a high chance of recurrence since treatment has been on hold. Giving him steroid might actually put him at more risk of re bleeding. NSAID'S not an option for now. Plan: Consider Colchicine. If patient is to be restarted on AC, Colchicine has to be held given interaction with Coumadin. 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 Discontinue own potassium. Initiate K-dur 40meq daily. Obtain K in the AM06/17: K+ 4.1 today Will continue K-Dur 40 meq on discharge. // Hypomagnesemia 06/15/2010 05/05/2021 Overview: 06/15/2010: Magnesium 1.8 this am. Magnesium 400mg daily ordered. Mag draw in am06/16: Magnesium 1.9 today. Mag OX increased to 400mg BID. Mag draw in AM. 06/17: Magnesium 2.0 today. Will continue Mag OX 400mg BID at home. Mag blood draw on Monday. // Retinal detachment with retinal defect, unspecif ied 06/14/2010 05/05/2021 Anticoagulation monitoring, INR range 2-3 201009/28/2012 Overview: ECG on admission: AF, [id number] on tele w/ pt in bed QT/QTc: 380/460 Previous AAD: N/A Coumadin dose: 7.5mg daily INRs: see epic, therapeutic since 05/20/10. Pt goes to [facility]. CrCl:greater than 100 Will start Tikosyn per Dr Courtney Grady Plan for DCC if the pt remains in AF, IC in chart. 06/15: INR 2.9 today. Continue on Coumadin with INR check in the AM. 06/16: INR 3.1 today. Continue Coumadin. INR in the am06/17: INR 3.4 today. Instructed patient to take 5mg today. INR check on Monday at [facility]// . Pulmonary embolism 03/01/2010 05/05/2021 DVT (deep venous thrombosis) 01/12/2010 Atrial fibrillation 11/03/2009 11/05/2018 Overview: Hx: Persistent A.fib s/p Mini MAZE 05/2012. Currently in sinus. Had previously failed NATHAN's and DCC x5 Assessment: Currently in Sinus On amiodarone 300mg daily for 4 weeks from D/C can now switch to 200mg daily Plan: 200 mg daily amiodarone CHADS2 score of 1, with the h/o GI bleed will hold off on anticoagulation Morbid obesity 10/14/2009 02/20/2014 Overview: s/p Gastric bypass surgery Encounter for dietary counseling and surveillanc e 10/14/2009 05/05/2021 Other specified disease of sebaceous glands 07/200805/05/2021 Corns and callosities 06/11/2008 05/05/2021 Contusion of foot 06/11/2008 05/05/2021 documented as of this encounter (statuses as of 12/30/2021) [facility] History of Past illness Narrative* Problem Noted Date Resolved Date Syncope 11/02/2018 05/05/2021 Chest pain 05/03/2018 05/05/2021 Left lower quadrant pain 05/03/2018 022 Left leg swelling 05/03/2018 05/05/2021 Presence of intraocular lens 11/14/2017 Bilateral posterior capsular opacification 11/1405/05/2021 History of detached retina repair 11/14/2017 05/05/2021 Strabismus 11/14/2017 05/05/2021 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 Continue Lovenox until INR > 2.0 or patient's INR Warfarin Indication Range Pharmacy Previous Dose Scr - If > 2mo ago, retest For calculation of Clcr & Lovenox dose Creatinine (mg/dL) Date Value 01/31/2015 1.03 Height Last 1 Encounter Ht Readings: Date: Ht: 02/06/2015 185.4 cm (6' 1) Weight Last 1 Encounter Wt Readings: Date: Wt: 02/06/2015 107.049 kg (236 lb) Lovenox Dose C-G Actual Body Wt Est Clcr = ml/min C-G Lean Body Wt Est Clcr = ml/min GlobalRPH Link The Lovenox dose above has been reviewed for Appropriateness based on pt specific criteria and disease state(s) Initials: Date: Bridge Instruction Sent to: Bridge Instructions Approved by Sent Via Epic Name or Type of Procedure Date Warfarin Dose INR PLT QOD X 14 days Total Initials and Comments Right Click & Insert Row for Today'sDocumentation. 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 05/05/2021 Gall stones, common bile duct 12/07/2013 Epiretinal membrane 11/01/2013 05/05/2021 Shoulder pain 09/12/2013 05/05/2021 NO SHOW 05/03/2013 05/05/2021 Ingrown toenail 02/03/2013 05/05/2021 Senile nuclear sclerosis 01/29/2013 015 Dizziness and giddiness 09/21/2012 11/06/19 19 Other symptoms involving ner vous and musculoskeletal systems(781.99) 09/21/2012 05/05/2021 Ulcer of perianal area 07/03/2012 Overview: Present on admission Dieulafoy lesion (hemorrhagic) of intestine 06/0905/05/2021 Overview: Hx: Seen on EGD 06/30 - lesion clipped Had been on multiple NSAIDS; Steroids; previously for pericarditis. 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 Plan: Monitor H&H Q8H, transfuse as necessary, keep Hb>8 Consult IR for further intervention Protonix gtt for now, will switch to protonix 40mg bid when Hb is stable after 48-72 hours GI on board, appreciate their recs MSSA (methicillin susceptibl e Staphylococcus aureus) infection 07/03/2012 05/05/2021 Overview: Hx: MSSA infection of serosal fluids collection in L chest wall. S/P I/D on 06/19. On IV oxacillin till and then dc'ed on 06/23 with a 10 day course of Dicloxacillin. 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 Currently chest pain free; However, there is a high chance of recurrence since treatment has been on hold. Giving him steroid might actually put him at more risk of re bleeding. NSAID'S not an option for now. Plan: Consider Colchicine. If patient is to be restarted on AC, Colchicine has to be held given interaction with Coumadin. 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 DVT prophylaxis 07/03/2012 05/05/2021 Overview: Plan: Will hold off on Hep given recent GI bleed IPC's Hyperoxaluria 05/11/2012 12/07/2015 Lattice degeneration of peripheral retina 201105/05/2021 skilled nursing (current) use of anticoagulants 201005/05/2021 Overview: PCC referring MD: Michael Mcmahan Anticoagulation management encounter 2010 05/05/2021 Other and unspecified postsurgical nonabsorption 08/25/2010 05/05/2021 Wound check, abscess 08/25/2010 05/05/2021 Hypokalemia 06/16/2010 05/05/2021 Overview: Borderline K+ at 3.6 today. Discontinue own potassium. Initiate K-dur 40meq daily. Obtain K in the AM06/17: K+ 4.1 today Will continue K-Dur 40 meq on discharge. // Hypomagnesemia 06/15/2010 05/05/2021 Overview: 06/15/2010: Magnesium 1.8 this am. Magnesium 400mg daily ordered. Mag draw in am06/16: Magnesium 1.9 today. Mag OX increased to 400mg BID. Mag draw in AM. 06/17: Magnesium 2.0 today. Will continue Mag OX 400mg BID at home. Mag blood draw on Monday. // Retinal detachment with retinal defect, unspecif ied 06/14/2010 05/05/2021 Anticoagulation monitoring, INR range 2-3 201009/28/2012 Overview: ECG on admission: AF, [id number] on tele w/ pt in bed QT/QTc: 380/460 Previous AAD: N/A Coumadin dose: 7.5mg daily INRs: see epic, therapeutic since 05/20/10. Pt goes to [facility]. CrCl:greater than 100 Will start Tikosyn per Dr Courtney Grady Plan for DCC if the pt remains in AF, IC in chart. 06/15: INR 2.9 today. Continue on Coumadin with INR check in the AM. 06/16: INR 3.1 today. Continue Coumadin. INR in the am06/17: INR 3.4 today. Instructed patient to take 5mg today. INR check on Monday at [place]// . Pulmonary embolism 03/01/2010 05/05/2021 DVT (deep venous thrombosis) 01/12/2010 Atrial fibrillation 11/03/2009 11/05/2018 Overview: Hx: Persistent A.fib s/p Mini MAZE 05/2012. Currently in sinus. Had previously failed NATHAN's and DCC x5 Assessment: Currently in Sinus On amiodarone 300mg daily for 4 weeks from D/C can now switch to 200mg daily Plan: 200 mg daily amiodarone CHADS2 score of 1, with the h/o GI bleed will hold off on anticoagulation Morbid obesity 10/14/2009 02/20/2014 Overview: s/p Gastric bypass surgery Encounter for dietary counseling and surveillanc e 10/14/2009 05/05/2021 Other specified disease of sebaceous glands 07/200805/05/2021 Corns and callosities 06/11/2008 05/05/2021 Contusion of foot 06/11/2008 05/05/2021 documented as of this encounter (statuses as of 01/14/2022) [facility] History of Past illness Narrative* Problem Noted Date Resolved Date Syncope 11/02/2018 05/05/2021 Chest pain 05/03/2018 05/05/2021 Left lower quadrant pain 05/03/2018 022 Left leg swelling 05/03/2018 05/05/2021 Presence of intraocular lens 11/14/2017 Bilateral posterior capsular opacification 11/1405/05/2021 History of detached retina repair 11/14/2017 05/05/2021 Strabismus 11/14/2017 05/05/2021 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 Continue Lovenox until INR > 2.0 or patient's INR Warfarin Indication Range Pharmacy Previous Dose Scr - If > 2mo ago, retest For calculation of Clcr & Lovenox dose Creatinine (mg/dL) Date Value 01/31/2015 1.03 Height Last 1 Encounter Ht Readings: Date: Ht: 02/06/2015 185.4 cm (6' 1) Weight Last 1 Encounter Wt Readings: Date: Wt: 02/06/2015 107.049 kg (236 lb) Lovenox Dose C-G Actual Body Wt Est Clcr = ml/min C-G Lean Body Wt Est Clcr = ml/min GlobalRPH Link The Lovenox dose above has been reviewed for Appropriateness based on pt specific criteria and disease state(s) Initials: Date: Bridge Instruction Sent to: Bridge Instructions Approved by Sent Via [facility] Name or Type of Procedure Date Warfarin Dose INR PLT QOD X 14 days Total Initials and Comments Right Click & Insert Row for Today'sDocumentation. 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 05/05/2021 Gall stones, common bile duct 12/07/2013 Epiretinal membrane 11/01/2013 05/05/2021 Shoulder pain 09/12/2013 05/05/2021 NO SHOW 05/03/2013 05/05/2021 Ingrown toenail 02/03/2013 05/05/2021 Senile nuclear sclerosis 01/29/2013 015 Dizziness and giddiness 09/21/2012 11/06/19 19 Other symptoms involving ner vous and musculoskeletal systems(781.99) 09/21/2012 05/05/2021 Ulcer of perianal area 07/03/2012 Overview: Present on admission Dieulafoy lesion (hemorrhagic) of intestine 06/0905/05/2021 Overview: Hx: Seen on EGD 06/30 - lesion clipped Had been on multiple NSAIDS; Steroids; previously for pericarditis. 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 Plan: Monitor H&H Q8H, transfuse as necessary, keep Hb>8 Consult IR for further intervention Protonix gtt for now, will switch to protonix 40mg bid when Hb is stable after 48-72 hours GI on board, appreciate their recs MSSA (methicillin susceptibl e Staphylococcus aureus) infection 07/03/2012 05/05/2021 Overview: Hx: MSSA infection of serosal fluids collection in L chest wall. S/P I/D on 06/19. On IV oxacillin till and then dc'ed on 06/23 with a 10 day course of Dicloxacillin. 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 Currently chest pain free; However, there is a high chance of recurrence since treatment has been on hold. Giving him steroid might actually put him at more risk of re bleeding. NSAID'S not an option for now. Plan: Consider Colchicine. If patient is to be restarted on AC, Colchicine has to be held given interaction with Coumadin. 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 DVT prophylaxis 07/03/2012 05/05/2021 Overview: Plan: Will hold off on Hep given recent GI bleed IPC's Hyperoxaluria 05/11/2012 12/07/2015 Lattice degeneration of peripheral retina 201105/05/2021 skilled nursing (current) use of anticoagulants 201005/05/2021 Overview: PCC referring MD: Michael Mcmahan Anticoagulation management encounter 2010 05/05/2021 Other and unspecified postsurgical nonabsorption 08/25/2010 05/05/2021 Wound check, abscess 08/25/2010 05/05/2021 Hypokalemia 06/16/2010 05/05/2021 Overview: Borderline K+ at 3.6 today. Discontinue own potassium. Initiate K-dur 40meq daily. Obtain K in the AM06/17: K+ 4.1 today Will continue K-Dur 40 meq on discharge. // Hypomagnesemia 06/15/2010 05/05/2021 Overview: 06/15/2010: Magnesium 1.8 this am. Magnesium 400mg daily ordered. Mag draw in am06/16: Magnesium 1.9 today. Mag OX increased to 400mg BID. Mag draw in AM. 06/17: Magnesium 2.0 today. Will continue Mag OX 400mg BID at home. Mag blood draw on Monday. // Retinal detachment with retinal defect, unspecif ied 06/14/2010 05/05/2021 Anticoagulation monitoring, INR range 2-3 201009/28/2012 Overview: ECG on admission: AF, [id number] on tele w/ pt in bed QT/QTc: 380/460 Previous AAD: N/A Coumadin dose: 7.5mg daily INRs: see epic, therapeutic since 05/20/10. Pt goes to [facility]. CrCl:greater than 100 Will start Tikosyn per Dr Courtney Grady Plan for DCC if the pt remains in AF, IC in chart. 06/15: INR 2.9 today. Continue on Coumadin with INR check in the AM. 06/16: INR 3.1 today. Continue Coumadin. INR in the am/06/17: INR 3.4 today. Instructed patient to take 5mg today. INR check on Monday at [place]// . Pulmonary embolism 03/01/2010 05/05/2021 DVT (deep venous thrombosis) 01/12/2010 Atrial fibrillation 11/03/2009 11/05/2018 Overview: Hx: Persistent A.fib s/p Mini MAZE 05/2012. Currently in sinus. Had previously failed NATHAN's and DCC x5 Assessment: Currently in Sinus On amiodarone 300mg daily for 4 weeks from D/C can now switch to 200mg daily Plan: 200 mg daily amiodarone CHADS2 score of 1, with the h/o GI bleed will hold off on anticoagulation Morbid obesity 10/14/2009 02/20/2014 Overview: s/p Gastric bypass surgery Encounter for dietary counseling and surveillanc e 10/14/2009 05/05/2021 Other specified disease of sebaceous glands 07/200805/05/2021 Corns and callosities 06/11/2008 05/05/2021 Contusion of foot 06/11/2008 05/05/2021 documented as of this encounter (statuses as of 01/21/2022) [facility] History of Past illness Narrative* Problem Noted Date Resolved Date Syncope 11/02/2018 05/05/2021 Chest pain 05/03/2018 05/05/2021 Left lower quadrant pain 05/03/2018 022 Left leg swelling 05/03/2018 05/05/2021 Presence of intraocular lens 11/14/2017 Bilateral posterior capsular opacification 11/1405/05/2021 History of detached retina repair 11/14/2017 05/05/2021 Strabismus 11/14/2017 05/05/2021 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 Continue Lovenox until INR > 2.0 or patient's INR Warfarin Indication Range Pharmacy Previous Dose Scr - If > 2mo ago, retest For calculation of Clcr & Lovenox dose Creatinine (mg/dL) Date Value 01/31/2015 1.03 Height Last 1 Encounter Ht Readings: Date: Ht: 02/06/2015 185.4 cm (6' 1) Weight Last 1 Encounter Wt Readings: Date: Wt: 02/06/2015 107.049 kg (236 lb) Lovenox Dose C-G Actual Body Wt Est Clcr = ml/min C-G Lean Body Wt Est Clcr = ml/min GlobalRPH Link The Lovenox dose above has been reviewed for Appropriateness based on pt specific criteria and disease state(s) Initials: Date: Bridge Instruction Sent to: Bridge Instructions Approved by Sent Via Epic Name or Type of Procedure Date Warfarin Dose INR PLT QOD X 14 days Total Initials and Comments Right Click & Insert Row for Today'sDocumentation. 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 05/05/2021 Gall stones, common bile duct 12/07/2013 Epiretinal membrane 11/01/2013 05/05/2021 Shoulder pain 09/12/2013 05/05/2021 NO SHOW 05/03/2013 05/05/2021 Ingrown toenail 02/03/2013 05/05/2021 Senile nuclear sclerosis 01/29/2013 015 Dizziness and giddiness 09/21/2012 11/06/19 19 Other symptoms involving ner vous and musculoskeletal systems(781.99) 09/21/2012 05/05/2021 Ulcer of perianal area 07/03/2012 Overview: Present on admission Dieulafoy lesion (hemorrhagic) of intestine 06/0905/05/2021 Overview: Hx: Seen on EGD 06/30 - lesion clipped Had been on multiple NSAIDS; Steroids; previously for pericarditis. 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 Plan: Monitor H&H Q8H, transfuse as necessary, keep Hb>8 Consult IR for further intervention Protonix gtt for now, will switch to protonix 40mg bid when Hb is stable after 48-72 hours GI on board, appreciate their recs MSSA (methicillin susceptibl e Staphylococcus aureus) infection 07/03/2012 05/05/2021 Overview: Hx: MSSA infection of serosal fluids collection in L chest wall. S/P I/D on 06/19. On IV oxacillin till and then dc'ed on 06/23 with a 10 day course of Dicloxacillin. 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 Currently chest pain free; However, there is a high chance of recurrence since treatment has been on hold. Giving him steroid might actually put him at more risk of re bleeding. NSAID'S not an option for now. Plan: Consider Colchicine. If patient is to be restarted on AC, Colchicine has to be held given interaction with Coumadin. 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 DVT prophylaxis 07/03/2012 05/05/2021 Overview: Plan: Will hold off on Hep given recent GI bleed IPC's Hyperoxaluria 05/11/2012 12/07/2015 Lattice degeneration of peripheral retina 201105/05/2021 skilled nursing (current) use of anticoagulants 201005/05/2021 Overview: PCC referring MD: Michael Mcmahan Anticoagulation management encounter 2010 05/05/2021 Other and unspecified postsurgical nonabsorption 08/25/2010 05/05/2021 Wound check, abscess 08/25/2010 05/05/2021 Hypokalemia 06/16/2010 05/05/2021 Overview: Borderline K+ at 3.6 today. Discontinue own potassium. Initiate K-dur 40meq daily. Obtain K in the AM/ 06/17: K+ 4.1 today Will continue K-Dur 40 meq on discharge. // Hypomagnesemia 06/15/2010 05/05/2021 Overview: 06/15/2010: Magnesium 1.8 this am. Magnesium 400mg daily ordered. Mag draw in am06/16: Magnesium 1.9 today. Mag OX increased to 400mg BID. Mag draw in AM. 06/17: Magnesium 2.0 today. Will continue Mag OX 400mg BID at home. Mag blood draw on Monday. // Retinal detachment with retinal defect, unspecif ied 06/14/2010 05/05/2021 Anticoagulation monitoring, INR range 2-3 201009/28/2012 Overview: ECG on admission: AF, [id number] on tele w/ pt in bed QT/QTc: 380/460 Previous AAD: N/A Coumadin dose: 7.5mg daily INRs: see epic, therapeutic since 05/20/10. Pt goes to [facility]. CrCl:greater than 100 Will start Tikosyn per Dr Courtney Grady Plan for DCC if the pt remains in AF, IC in chart. 06/15: INR 2.9 today. Continue on Coumadin with INR check in the AM. 06/16: INR 3.1 today. Continue Coumadin. INR in the am06/17: INR 3.4 today. Instructed patient to take 5mg today. INR check on Monday at [place]// . Pulmonary embolism 03/01/2010 05/05/2021 DVT (deep venous thrombosis) 01/12/2010 Atrial fibrillation 11/03/2009 11/05/2018 Overview: Hx: Persistent A.fib s/p Mini MAZE 05/2012. Currently in sinus. Had previously failed NATHAN's and DCC x5 Assessment: Currently in Sinus On amiodarone 300mg daily for 4 weeks from D/C can now switch to 200mg daily Plan: 200 mg daily amiodarone CHADS2 score of 1, with the h/o GI bleed will hold off on anticoagulation Morbid obesity 10/14/2009 02/20/2014 Overview: s/p Gastric bypass surgery Encounter for dietary counseling and surveillanc e 10/14/2009 05/05/2021 Other specified disease of sebaceous glands 07/200805/05/2021 Corns and callosities 06/11/2008 05/05/2021 Contusion of foot 06/11/2008 05/05/2021 documented as of this encounter (statuses as of 02/02/2022) [facility] History of Past illness Narrative* Problem Noted Date Resolved Date Syncope 11/02/2018 05/05/2021 Chest pain 05/03/2018 05/05/2021 Left lower quadrant pain 05/03/2018 022 Left leg swelling 05/03/2018 05/05/2021 Presence of intraocular lens 11/14/2017 Bilateral posterior capsular opacification 11/1405/05/2021 History of detached retina repair 11/14/2017 05/05/2021 Strabismus 11/14/2017 05/05/2021 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 Continue Lovenox until INR > 2.0 or patient's INR Warfarin Indication Range Pharmacy Previous Dose Scr - If > 2mo ago, retest For calculation of Clcr & Lovenox dose Creatinine (mg/dL) Date Value 01/31/2015 1.03 Height Last 1 Encounter Ht Readings: Date: Ht: 02/06/2015 185.4 cm (6' 1) Weight Last 1 Encounter Wt Readings: Date: Wt: 02/06/2015 107.049 kg (236 lb) Lovenox Dose C-G Actual Body Wt Est Clcr = ml/min C-G Lean Body Wt Est Clcr = ml/min GlobalRPH Link The Lovenox dose above has been reviewed for Appropriateness based on pt specific criteria and disease state(s) Initials: Date: Bridge Instruction Sent to: Bridge Instructions Approved by Sent Via Epic Name or Type of Procedure Date Warfarin Dose INR PLT QOD X 14 days Total Initials and Comments Right Click & Insert Row for Today'sDocumentation. 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 05/05/2021 Gall stones, common bile duct 12/07/2013 Epiretinal membrane 11/01/2013 05/05/2021 Shoulder pain 09/12/2013 05/05/2021 NO SHOW 05/03/2013 05/05/2021 Ingrown toenail 02/03/2013 05/05/2021 Senile nuclear sclerosis 01/29/2013 015 Dizziness and giddiness 09/21/2012 11/06/19 19 Other symptoms involving ner vous and musculoskeletal systems(781.99) 09/21/2012 05/05/2021 Ulcer of perianal area 07/03/2012 Overview: Present on admission Dieulafoy lesion (hemorrhagic) of intestine 06/0905/05/2021 Overview: Hx: Seen on EGD 06/30 - lesion clipped Had been on multiple NSAIDS; Steroids; previously for pericarditis. 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 Plan: Monitor H&H Q8H, transfuse as necessary, keep Hb>8 Consult IR for further intervention Protonix gtt for now, will switch to protonix 40mg bid when Hb is stable after 48-72 hours GI on board, appreciate their recs MSSA (methicillin susceptibl e Staphylococcus aureus) infection 07/03/2012 05/05/2021 Overview: Hx: MSSA infection of serosal fluids collection in L chest wall. S/P I/D on 06/19. On IV oxacillin till and then dc'ed on 06/23 with a 10 day course of Dicloxacillin. 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 Currently chest pain free; However, there is a high chance of recurrence since treatment has been on hold. Giving him steroid might actually put him at more risk of re bleeding. NSAID'S not an option for now. Plan: Consider Colchicine. If patient is to be restarted on AC, Colchicine has to be held given interaction with Coumadin. 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 Discontinue own potassium. Initiate K-dur 40meq daily. Obtain K in the AM06/17: K+ 4.1 today Will continue K-Dur 40 meq on discharge. // Hypomagnesemia 06/15/2010 05/05/2021 Overview: 06/15/2010: Magnesium 1.8 this am. Magnesium 400mg daily ordered. Mag draw in am06/16: Magnesium 1.9 today. Mag OX increased to 400mg BID. Mag draw in AM. 06/17: Magnesium 2.0 today. Will continue Mag OX 400mg BID at home. Mag blood draw on Monday. // Retinal detachment with retinal defect, unspecif ied 06/14/2010 05/05/2021 Anticoagulation monitoring, INR range 2-3 201009/28/2012 Overview: ECG on admission: AF, [id number] on tele w/ pt in bed QT/QTc: 380/460 Previous AAD: N/A Coumadin dose: 7.5mg daily INRs: see epic, therapeutic since 05/20/10. [facility] CrCl:greater than 100 Will start Tikosyn per Dr Courtney Grady Plan for DCC if the pt remains in AF, IC in chart. 06/15: INR 2.9 today. Continue on Coumadin with INR check in the AM. 06/16: INR 3.1 today. Continue Coumadin. INR in the am// 06/17: INR 3.4 today. Instructed patient to take 5mg today. INR check on Monday at [place]// . Pulmonary embolism 03/01/2010 05/05/2021 DVT (deep venous thrombosis) 01/12/2010 Atrial fibrillation 11/03/2009 11/05/2018 Overview: Hx: Persistent A.fib s/p Mini MAZE 05/2012. Currently in sinus. Had previously failed NATHAN's and DCC x5 Assessment: Currently in Sinus On amiodarone 300mg daily for 4 weeks from D/C can now switch to 200mg daily Plan: 200 mg daily amiodarone CHADS2 score of 1, with the h/o GI bleed will hold off on anticoagulation Morbid obesity 10/14/2009 02/20/2014 Overview: s/p Gastric bypass surgery Encounter for dietary counseling and surveillanc e 10/14/2009 05/05/2021 Other specified disease of sebaceous glands 07/200805/05/2021 Corns and callosities 06/11/2008 05/05/2021 Contusion of foot 06/11/2008 05/05/2021 documented as of this encounter (statuses as of 02/17/2022) [facility] History of Past illness Narrative* Problem Noted Date Resolved Date Syncope 11/02/2018 05/05/2021 Chest pain 05/03/2018 05/05/2021 Left lower quadrant pain 05/03/2018 022 Left leg swelling 05/03/2018 05/05/2021 Presence of intraocular lens 11/14/2017 Bilateral posterior capsular opacification 11/1405/05/2021 History of detached retina repair 11/14/2017 05/05/2021 Strabismus 11/14/2017 05/05/2021 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 Continue Lovenox until INR > 2.0 or patient's INR Warfarin Indication Range Pharmacy Previous Dose Scr - If > 2mo ago, retest For calculation of Clcr & Lovenox dose Creatinine (mg/dL) Date Value 01/31/2015 1.03 Height Last 1 Encounter Ht Readings: Date: Ht: 02/06/2015 185.4 cm (6' 1) Weight Last 1 Encounter Wt Readings: Date: Wt: 02/06/2015 107.049 kg (236 lb) Lovenox Dose C-G Actual Body Wt Est Clcr = ml/min C-G Lean Body Wt Est Clcr = ml/min GlobalRPH Link The Lovenox dose above has been reviewed for Appropriateness based on pt specific criteria and disease state(s) Initials: Date: Bridge Instruction Sent to: Bridge Instructions Approved by Sent Via [facility] Name or Type of Procedure Date Warfarin Dose INR PLT QOD X 14 days Total Initials and Comments Right Click & Insert Row for Today'sDocumentation. 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 05/05/2021 Gall stones, common bile duct 12/07/2013 Epiretinal membrane 11/01/2013 05/05/2021 Shoulder pain 09/12/2013 05/05/2021 NO SHOW 05/03/2013 05/05/2021 Ingrown toenail 02/03/2013 05/05/2021 Senile nuclear sclerosis 01/29/2013 015 Dizziness and giddiness 09/21/2012 11/06/19 19 Other symptoms involving ner vous and musculoskeletal systems(781.99) 09/21/2012 05/05/2021 Ulcer of perianal area 07/03/2012 Overview: Present on admission Dieulafoy lesion (hemorrhagic) of intestine 06/0905/05/2021 Overview: Hx: Seen on EGD 06/30 - lesion clipped Had been on multiple NSAIDS; Steroids; previously for pericarditis. 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 Plan: Monitor H&H Q8H, transfuse as necessary, keep Hb>8 Consult IR for further intervention Protonix gtt for now, will switch to protonix 40mg bid when Hb is stable after 48-72 hours GI on board, appreciate their recs MSSA (methicillin susceptibl e Staphylococcus aureus) infection 07/03/2012 05/05/2021 Overview: Hx: MSSA infection of serosal fluids collection in L chest wall. S/P I/D on 06/19. On IV oxacillin till and then dc'ed on 06/23 with a 10 day course of Dicloxacillin. 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 Currently chest pain free; However, there is a high chance of recurrence since treatment has been on hold. Giving him steroid might actually put him at more risk of re bleeding. NSAID'S not an option for now. Plan: Consider Colchicine. If patient is to be restarted on AC, Colchicine has to be held given interaction with Coumadin. 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 DVT prophylaxis 07/03/2012 05/05/2021 Overview: Plan: Will hold off on Hep given recent GI bleed IPC's Hyperoxaluria 05/11/2012 12/07/2015 Lattice degeneration of peripheral retina 201105/05/2021 skilled nursing (current) use of anticoagulants 201005/05/2021 Overview: PCC referring MD: Michael Mcmahan Anticoagulation management encounter 2010 05/05/2021 Other and unspecified postsurgical nonabsorption 08/25/2010 05/05/2021 Wound check, abscess 08/25/2010 05/05/2021 Hypokalemia 06/16/2010 05/05/2021 Overview: Borderline K+ at 3.6 today. Discontinue own potassium. Initiate K-dur 40meq daily. Obtain K in the AM// 10: K+ 4.1 today Will continue K-Dur 40 meq on discharge. // Hypomagnesemia 06/15/2010 05/05/2021 Overview: 06/15/2010: Magnesium 1.8 this am. Magnesium 400mg daily ordered. Mag draw in am06/16: Magnesium 1.9 today. Mag OX increased to 400mg BID. Mag draw in AM. 06/17: Magnesium 2.0 today. Will continue Mag OX 400mg BID at home. Mag blood draw on Monday. // Retinal detachment with retinal defect, unspecif ied 06/14/2010 05/05/2021 Anticoagulation monitoring, INR range 2-3 201009/28/2012 Overview: ECG on admission: AF, [id number] on tele w/ pt in bed QT/QTc: 380/460 Previous AAD: N/A Coumadin dose: 7.5mg daily INRs: see epic, therapeutic since 05/20/10. [facility]. CrCl:greater than 100 Will start Tikosyn per Dr Courtney Grady Plan for DCC if the pt remains in AF, IC in chart. 06/15: INR 2.9 today. Continue on Coumadin with INR check in the AM. 06/16: INR 3.1 today. Continue Coumadin. INR in the am06/17: INR 3.4 today. Instructed patient to take 5mg today. INR check on Monday at [facility]// . Pulmonary embolism 03/01/2010 05/05/2021 DVT (deep venous thrombosis) 01/12/2010 Atrial fibrillation 11/03/2009 11/05/2018 Overview: Hx: Persistent A.fib s/p Mini MAZE 05/2012. Currently in sinus. Had previously failed NATHAN's and DCC x5 Assessment: Currently in Sinus On amiodarone 300mg daily for 4 weeks from D/C can now switch to 200mg daily Plan: 200 mg daily amiodarone CHADS2 score of 1, with the h/o GI bleed will hold off on anticoagulation Morbid obesity 10/14/2009 02/20/2014 Overview: s/p Gastric bypass surgery Encounter for dietary counseling and surveillanc e 10/14/2009 05/05/2021 Other specified disease of sebaceous glands 07/200805/05/2021 Corns and callosities 06/11/2008 05/05/2021 Contusion of foot 06/11/2008 05/05/2021 documented as of this encounter (statuses as of 02/25/2022) [facility] History of Past illness Narrative* Problem Noted Date Resolved Date Syncope 11/02/2018 05/05/2021 Chest pain 05/03/2018 05/05/2021 Left lower quadrant pain 05/03/2018 022 Left leg swelling 05/03/2018 05/05/2021 Presence of intraocular lens 11/14/2017 Bilateral posterior capsular opacification 11/1405/05/2021 History of detached retina repair 11/14/2017 05/05/2021 Strabismus 11/14/2017 05/05/2021 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 Continue Lovenox until INR > 2.0 or patient's INR Warfarin Indication Range Pharmacy Previous Dose Scr - If > 2mo ago, retest For calculation of Clcr & Lovenox dose Creatinine (mg/dL) Date Value 01/31/2015 1.03 Height Last 1 Encounter Ht Readings: Date: Ht: 02/06/2015 185.4 cm (6' 1) Weight Last 1 Encounter Wt Readings: Date: Wt: 02/06/2015 107.049 kg (236 lb) Lovenox Dose C-G Actual Body Wt Est Clcr = ml/min C-G Lean Body Wt Est Clcr = ml/min GlobalRPH Link The Lovenox dose above has been reviewed for Appropriateness based on pt specific criteria and disease state(s) Initials: Date: Bridge Instruction Sent to: Bridge Instructions Approved by Sent Via Epic Name or Type of Procedure Date Warfarin Dose INR PLT QOD X 14 days Total Initials and Comments Right Click & Insert Row for Today'sDocumentation. 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 05/05/2021 Gall stones, common bile duct 12/07/2013 Epiretinal membrane 11/01/2013 05/05/2021 Shoulder pain 09/12/2013 05/05/2021 NO SHOW 05/03/2013 05/05/2021 Ingrown toenail 02/03/2013 05/05/2021 Senile nuclear sclerosis 01/29/2013 015 Dizziness and giddiness 09/21/2012 11/06/19 19 Other symptoms involving ner vous and musculoskeletal systems(781.99) 09/21/2012 05/05/2021 Ulcer of perianal area 07/03/2012 Overview: Present on admission Dieulafoy lesion (hemorrhagic) of intestine 06/0905/05/2021 Overview: Hx: Seen on EGD 06/30 - lesion clipped Had been on multiple NSAIDS; Steroids; previously for pericarditis. 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 Plan: Monitor H&H Q8H, transfuse as necessary, keep Hb>8 Consult IR for further intervention Protonix gtt for now, will switch to protonix 40mg bid when Hb is stable after 48-72 hours GI on board, appreciate their recs MSSA (methicillin susceptibl e Staphylococcus aureus) infection 07/03/2012 05/05/2021 Overview: Hx: MSSA infection of serosal fluids collection in L chest wall. S/P I/D on 06/19. On IV oxacillin till and then dc'ed on 06/23 with a 10 day course of Dicloxacillin. 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 Currently chest pain free; However, there is a high chance of recurrence since treatment has been on hold. Giving him steroid might actually put him at more risk of re bleeding. NSAID'S not an option for now. Plan: Consider Colchicine. If patient is to be restarted on AC, Colchicine has to be held given interaction with Coumadin. 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 Discontinue own potassium. Initiate K-dur 40meq daily. Obtain K in the AM06/17: K+ 4.1 today Will continue K-Dur 40 meq on discharge. // Hypomagnesemia 06/15/2010 05/05/2021 Overview: 06/15/2010: Magnesium 1.8 this am. Magnesium 400mg daily ordered. Mag draw in am06/16: Magnesium 1.9 today. Mag OX increased to 400mg BID. Mag draw in AM. 06/17: Magnesium 2.0 today. Will continue Mag OX 400mg BID at home. Mag blood draw on Monday. // Retinal detachment with retinal defect, unspecif ied 06/14/2010 05/05/2021 Anticoagulation monitoring, INR range 2-3 201009/28/2012 Overview: ECG on admission: AF, [id number] on tele w/ pt in bed QT/QTc: 380/460 Previous AAD: N/A Coumadin dose: 7.5mg daily INRs: see epic, therapeutic since 05/20/10. Pt goes to [facility]. CrCl:greater than 100 Will start Tikosyn per Dr Courtney Grady Plan for DCC if the pt remains in AF, IC in chart. 06/15: INR 2.9 today. Continue on Coumadin with INR check in the AM. 06/16: INR 3.1 today. Continue Coumadin. INR in the am// 06/17: INR 3.4 today. Instructed patient to take 5mg today. INR check on Monday at [place]// . Pulmonary embolism 03/01/2010 05/05/2021 DVT (deep venous thrombosis) 01/12/2010 Atrial fibrillation 11/03/2009 11/05/2018 Overview: Hx: Persistent A.fib s/p Mini MAZE 05/2012. Currently in sinus. Had previously failed NATHAN's and DCC x5 Assessment: Currently in Sinus On amiodarone 300mg daily for 4 weeks from D/C can now switch to 200mg daily Plan: 200 mg daily amiodarone CHADS2 score of 1, with the h/o GI bleed will hold off on anticoagulation Morbid obesity 10/14/2009 02/20/2014 Overview: s/p Gastric bypass surgery Encounter for dietary counseling and surveillanc e 10/14/2009 05/05/2021 Other specified disease of sebaceous glands 07/200805/05/2021 Corns and callosities 06/11/2008 05/05/2021 Contusion of foot 06/11/2008 05/05/2021 documented as of this encounter (statuses as of 03/10/2022) [facility] History of Past illness Narrative* Problem Noted Date Resolved Date Syncope 11/02/2018 05/05/2021 Chest pain 05/03/2018 05/05/2021 Left lower quadrant pain 05/03/2018 022 Left leg swelling 05/03/2018 05/05/2021 Presence of intraocular lens 11/14/2017 Bilateral posterior capsular opacification 11/1405/05/2021 History of detached retina repair 11/14/2017 05/05/2021 Strabismus 11/14/2017 05/05/2021 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 Continue Lovenox until INR > 2.0 or patient's INR Warfarin Indication Range Pharmacy Previous Dose Scr - If > 2mo ago, retest For calculation of Clcr & Lovenox dose Creatinine (mg/dL) Date Value 01/31/2015 1.03 Height Last 1 Encounter Ht Readings: Date: Ht: 02/06/2015 185.4 cm (6' 1) Weight Last 1 Encounter Wt Readings: Date: Wt: 02/06/2015 107.049 kg (236 lb) Lovenox Dose C-G Actual Body Wt Est Clcr = ml/min C-G Lean Body Wt Est Clcr = ml/min GlobalRPH Link The Lovenox dose above has been reviewed for Appropriateness based on pt specific criteria and disease state(s) Initials: Date: Bridge Instruction Sent to: Bridge Instructions Approved by Sent Via [facility] Name or Type of Procedure Date Warfarin Dose INR PLT QOD X 14 days Total Initials and Comments Right Click & Insert Row for Today'sDocumentation. 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 05/05/2021 Gall stones, common bile duct 12/07/2013 Epiretinal membrane 11/01/2013 05/05/2021 Shoulder pain 09/12/2013 05/05/2021 NO SHOW 05/03/2013 05/05/2021 Ingrown toenail 02/03/2013 05/05/2021 Senile nuclear sclerosis 01/29/2013 015 Dizziness and giddiness 09/21/2012 11/06/19 19 Other symptoms involving ner vous and musculoskeletal systems(781.99) 09/21/2012 05/05/2021 Ulcer of perianal area 07/03/2012 Overview: Present on admission Dieulafoy lesion (hemorrhagic) of intestine 06/0905/05/2021 Overview: Hx: Seen on EGD 06/30 - lesion clipped Had been on multiple NSAIDS; Steroids; previously for pericarditis. 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 Plan: Monitor H&H Q8H, transfuse as necessary, keep Hb>8 Consult IR for further intervention Protonix gtt for now, will switch to protonix 40mg bid when Hb is stable after 48-72 hours GI on board, appreciate their recs MSSA (methicillin susceptibl e Staphylococcus aureus) infection 07/03/2012 05/05/2021 Overview: Hx: MSSA infection of serosal fluids collection in L chest wall. S/P I/D on 06/19. On IV oxacillin till and then dc'ed on 06/23 with a 10 day course of Dicloxacillin. 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 Currently chest pain free; However, there is a high chance of recurrence since treatment has been on hold. Giving him steroid might actually put him at more risk of re bleeding. NSAID'S not an option for now. Plan: Consider Colchicine. If patient is to be restarted on AC, Colchicine has to be held given interaction with Coumadin. 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 Discontinue own potassium. Initiate K-dur 40meq daily. Obtain K in the AM06/17: K+ 4.1 today Will continue K-Dur 40 meq on discharge. // Hypomagnesemia 06/15/2010 05/05/2021 Overview: 06/15/2010: Magnesium 1.8 this am. Magnesium 400mg daily ordered. Mag draw in am06/16: Magnesium 1.9 today. Mag OX increased to 400mg BID. Mag draw in AM. 06/17: Magnesium 2.0 today. Will continue Mag OX 400mg BID at home. Mag blood draw on Monday. // Retinal detachment with retinal defect, unspecif ied 06/14/2010 05/05/2021 Anticoagulation monitoring, INR range 2-3 201009/28/2012 Overview: ECG on admission: AF, [id number] on tele w/ pt in bed QT/QTc: 380/460 Previous AAD: N/A Coumadin dose: 7.5mg daily INRs: see epic, therapeutic since 05/20/10. Pt goes to [facility]. CrCl:greater than 100 Will start Tikosyn per Dr Courtney Grady Plan for DCC if the pt remains in AF, IC in chart. 06/15: INR 2.9 today. Continue on Coumadin with INR check in the AM. 06/16: INR 3.1 today. Continue Coumadin. INR in the am06/17: INR 3.4 today. Instructed patient to take 5mg today. INR check on Monday at [facility]// . Pulmonary embolism 03/01/2010 05/05/2021 DVT (deep venous thrombosis) 01/12/2010 Atrial fibrillation 11/03/2009 11/05/2018 Overview: Hx: Persistent A.fib s/p Mini MAZE 05/2012. Currently in sinus. Had previously failed NATHAN's and DCC x5 Assessment: Currently in Sinus On amiodarone 300mg daily for 4 weeks from D/C can now switch to 200mg daily Plan: 200 mg daily amiodarone CHADS2 score of 1, with the h/o GI bleed will hold off on anticoagulation Morbid obesity 10/14/2009 02/20/2014 Overview: s/p Gastric bypass surgery Encounter for dietary counseling and surveillanc e 10/14/2009 05/05/2021 Other specified disease of sebaceous glands 07/200805/05/2021 Corns and callosities 06/11/2008 05/05/2021 Contusion of foot 06/11/2008 05/05/2021 documented as of this encounter (statuses as of 03/25/2022) [facility] History of Past illness Narrative* Problem Noted Date Resolved Date Syncope 11/02/2018 05/05/2021 Chest pain 05/03/2018 05/05/2021 Left lower quadrant pain 05/03/2018 022 Left leg swelling 05/03/2018 05/05/2021 Presence of intraocular lens 11/14/2017 Bilateral posterior capsular opacification 11/1405/05/2021 History of detached retina repair 11/14/2017 05/05/2021 Strabismus 11/14/2017 05/05/2021 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 Continue Lovenox until INR > 2.0 or patient's INR Warfarin Indication Range Pharmacy Previous Dose Scr - If > 2mo ago, retest For calculation of Clcr & Lovenox dose Creatinine (mg/dL) Date Value 01/31/2015 1.03 Height Last 1 Encounter Ht Readings: Date: Ht: 02/06/2015 185.4 cm (6' 1) Weight Last 1 Encounter Wt Readings: Date: Wt: 02/06/2015 107.049 kg (236 lb) Lovenox Dose C-G Actual Body Wt Est Clcr = ml/min C-G Lean Body Wt Est Clcr = ml/min GlobalRPH Link The Lovenox dose above has been reviewed for Appropriateness based on pt specific criteria and disease state(s) Initials: Date: Bridge Instruction Sent to: Bridge Instructions Approved by Sent Via Epic Name or Type of Procedure Date Warfarin Dose INR PLT QOD X 14 days Total Initials and Comments Right Click & Insert Row for Today'sDocumentation. 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 05/05/2021 Gall stones, common bile duct 12/07/2013 Epiretinal membrane 11/01/2013 05/05/2021 Shoulder pain 09/12/2013 05/05/2021 NO SHOW 05/03/2013 05/05/2021 Ingrown toenail 02/03/2013 05/05/2021 Senile nuclear sclerosis 01/29/2013 015 Dizziness and giddiness 09/21/2012 11/06/19 19 Other symptoms involving ner vous and musculoskeletal systems(781.99) 09/21/2012 05/05/2021 Ulcer of perianal area 07/03/2012 Overview: Present on admission Dieulafoy lesion (hemorrhagic) of intestine 06/0905/05/2021 Overview: Hx: Seen on EGD 06/30 - lesion clipped Had been on multiple NSAIDS; Steroids; previously for pericarditis. 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 Plan: Monitor H&H Q8H, transfuse as necessary, keep Hb>8 Consult IR for further intervention Protonix gtt for now, will switch to protonix 40mg bid when Hb is stable after 48-72 hours GI on board, appreciate their recs MSSA (methicillin susceptibl e Staphylococcus aureus) infection 07/03/2012 05/05/2021 Overview: Hx: MSSA infection of serosal fluids collection in L chest wall. S/P I/D on 06/19. On IV oxacillin till and then dc'ed on 06/23 with a 10 day course of Dicloxacillin. 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 Currently chest pain free; However, there is a high chance of recurrence since treatment has been on hold. Giving him steroid might actually put him at more risk of re bleeding. NSAID'S not an option for now. Plan: Consider Colchicine. If patient is to be restarted on AC, Colchicine has to be held given interaction with Coumadin. 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 DVT prophylaxis 07/03/2012 05/05/2021 Overview: Plan: Will hold off on Hep given recent GI bleed IPC's Hyperoxaluria 05/11/2012 12/07/2015 Lattice degeneration of peripheral retina 201105/05/2021 skilled nursing (current) use of anticoagulants 201005/05/2021 Overview: PCC referring MD: Michael Mcmahan Anticoagulation management encounter 2010 05/05/2021 Other and unspecified postsurgical nonabsorption 08/25/2010 05/05/2021 Wound check, abscess 08/25/2010 05/05/2021 Hypokalemia 06/16/2010 05/05/2021 Overview: Borderline K+ at 3.6 today. Discontinue own potassium. Initiate K-dur 40meq daily. Obtain K in the AM06/17: K+ 4.1 today Will continue K-Dur 40 meq on discharge. // Hypomagnesemia 06/15/2010 05/05/2021 Overview: 06/15/2010: Magnesium 1.8 this am. Magnesium 400mg daily ordered. Mag draw in am06/16: Magnesium 1.9 today. Mag OX increased to 400mg BID. Mag draw in AM. 06/17: Magnesium 2.0 today. Will continue Mag OX 400mg BID at home. Mag blood draw on Monday. // Retinal detachment with retinal defect, unspecif ied 06/14/2010 05/05/2021 Anticoagulation monitoring, INR range 2-3 201009/28/2012 Overview: ECG on admission: AF, [id number] on tele w/ pt in bed QT/QTc: 380/460 Previous AAD: N/A Coumadin dose: 7.5mg daily INRs: see epic, therapeutic since 05/20/10. Pt goes to [facility]. CrCl:greater than 100 Will start Tikosyn per Dr Courtney Grady Plan for DCC if the pt remains in AF, IC in chart. 06/15: INR 2.9 today. Continue on Coumadin with INR check in the AM. 06/16: INR 3.1 today. Continue Coumadin. INR in the am// 06/17: INR 3.4 today. Instructed patient to take 5mg today. INR check on Monday at [facility]// . Pulmonary embolism 03/01/2010 05/05/2021 DVT (deep venous thrombosis) 01/12/2010 Atrial fibrillation 11/03/2009 11/05/2018 Overview: Hx: Persistent A.fib s/p Mini MAZE 05/2012. Currently in sinus. Had previously failed NATHAN's and DCC x5 Assessment: Currently in Sinus On amiodarone 300mg daily for 4 weeks from D/C can now switch to 200mg daily Plan: 200 mg daily amiodarone CHADS2 score of 1, with the h/o GI bleed will hold off on anticoagulation Morbid obesity 10/14/2009 02/20/2014 Overview: s/p Gastric bypass surgery Encounter for dietary counseling and surveillanc e 10/14/2009 05/05/2021 Other specified disease of sebaceous glands 07/200805/05/2021 Corns and callosities 06/11/2008 05/05/2021 Contusion of foot 06/11/2008 05/05/2021 documented as of this encounter (statuses as of 03/28/2022) [facility] History of Past illness Narrative* Problem Noted Date Resolved Date Syncope 11/02/2018 05/05/2021 Chest pain 05/03/2018 05/05/2021 Left lower quadrant pain 05/03/2018 01/26/2 022 Left leg swelling 05/03/2018 05/05/2021 Presence of intraocular lens 11/14/2017 Bilateral posterior capsular opacification 11/1405/05/2021 History of detached retina repair 11/14/2017 05/05/2021 Strabismus 11/14/2017 05/05/2021 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 Continue Lovenox until INR > 2.0 or patient's INR Warfarin Indication Range Pharmacy Previous Dose Scr - If > 2mo ago, retest For calculation of Clcr & Lovenox dose Creatinine (mg/dL) Date Value 01/31/2015 1.03 Height Last 1 Encounter Ht Readings: Date: Ht: 02/06/2015 185.4 cm (6' 1) Weight Last 1 Encounter Wt Readings: Date: Wt: 02/06/2015 107.049 kg (236 lb) Lovenox Dose C-G Actual Body Wt Est Clcr = ml/min C-G Lean Body Wt Est Clcr = ml/min GlobalRPH Link The Lovenox dose above has been reviewed for Appropriateness based on pt specific criteria and disease state(s) Initials: Date: Bridge Instruction Sent to: Bridge Instructions Approved by Sent Via [employer] Name or Type of Procedure Date Warfarin Dose INR PLT QOD X 14 days Total Initials and Comments Right Click & Insert Row for Today'sDocumentation. 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 05/05/2021 Gall stones, common bile duct 12/07/2013 Epiretinal membrane 11/01/2013 05/05/2021 Shoulder pain 09/12/2013 05/05/2021 NO SHOW 05/03/2013 05/05/2021 Ingrown toenail 02/03/2013 05/05/2021 Senile nuclear sclerosis 01/29/2013 015 Dizziness and giddiness 09/21/2012 11/06/19 19 Other symptoms involving ner vous and musculoskeletal systems(781.99) 09/21/2012 05/05/2021 Ulcer of perianal area 07/03/2012 Overview: Present on admission Dieulafoy lesion (hemorrhagic) of intestine 06/0905/05/2021 Overview: Hx: Seen on EGD 06/30 - lesion clipped Had been on multiple NSAIDS; Steroids; previously for pericarditis. 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 Plan: Monitor H&H Q8H, transfuse as necessary, keep Hb>8 Consult IR for further intervention Protonix gtt for now, will switch to protonix 40mg bid when Hb is stable after 48-72 hours GI on board, appreciate their recs MSSA (methicillin susceptibl e Staphylococcus aureus) infection 07/03/2012 05/05/2021 Overview: Hx: MSSA infection of serosal fluids collection in L chest wall. S/P I/D on 06/19. On IV oxacillin till and then dc'ed on 06/23 with a 10 day course of Dicloxacillin. 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 Currently chest pain free; However, there is a high chance of recurrence since treatment has been on hold. Giving him steroid might actually put him at more risk of re bleeding. NSAID'S not an option for now. Plan: Consider Colchicine. If patient is to be restarted on AC, Colchicine has to be held given interaction with Coumadin. 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 Discontinue own potassium. Initiate K-dur 40meq daily. Obtain K in the AM06/17: K+ 4.1 today Will continue K-Dur 40 meq on discharge. // Hypomagnesemia 06/15/2010 05/05/2021 Overview: 06/15/2010: Magnesium 1.8 this am. Magnesium 400mg daily ordered. Mag draw in am06/16: Magnesium 1.9 today. Mag OX increased to 400mg BID. Mag draw in AM. 06/17: Magnesium 2.0 today. Will continue Mag OX 400mg BID at home. Mag blood draw on Monday. // Retinal detachment with retinal defect, unspecif ied 06/14/2010 05/05/2021 Anticoagulation monitoring, INR range 2-3 201009/28/2012 Overview: ECG on admission: AF, [id number] on tele w/ pt in bed QT/QTc: 380/460 Previous AAD: N/A Coumadin dose: 7.5mg daily INRs: see epic, therapeutic since 05/20/10. Pt goes to [facility]. CrCl:greater than 100 Will start Tikosyn per Dr Courtney Grady Plan for DCC if the pt remains in AF, IC in chart. 06/15: INR 2.9 today. Continue on Coumadin with INR check in the AM. 06/16: INR 3.1 today. Continue Coumadin. INR in the am06/17: INR 3.4 today. Instructed patient to take 5mg today. INR check on Monday at [facility]// . Pulmonary embolism 03/01/2010 05/05/2021 DVT (deep venous thrombosis) 01/12/2010 Atrial fibrillation 11/03/2009 11/05/2018 Overview: Hx: Persistent A.fib s/p Mini MAZE 05/2012. Currently in sinus. Had previously failed NATHAN's and DCC x5 Assessment: Currently in Sinus On amiodarone 300mg daily for 4 weeks from D/C can now switch to 200mg daily Plan: 200 mg daily amiodarone CHADS2 score of 1, with the h/o GI bleed will hold off on anticoagulation Morbid obesity 10/14/2009 02/20/2014 Overview: s/p Gastric bypass surgery Encounter for dietary counseling and surveillanc e 10/14/2009 05/05/2021 Other specified disease of sebaceous glands 07/200805/05/2021 Corns and callosities 06/11/2008 05/05/2021 Contusion of foot 06/11/2008 05/05/2021 documented as of this encounter (statuses as of 04/01/2022) [facility] History of Past illness Narrative* Problem Noted Date Resolved Date Syncope 11/02/2018 05/05/2021 Chest pain 05/03/2018 05/05/2021 Left lower quadrant pain 05/03/2018 022 Left leg swelling 05/03/2018 05/05/2021 Presence of intraocular lens 11/14/2017 Bilateral posterior capsular opacification 11/1405/05/2021 History of detached retina repair 11/14/2017 05/05/2021 Strabismus 11/14/2017 05/05/2021 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 Continue Lovenox until INR > 2.0 or patient's INR Warfarin Indication Range Pharmacy Previous Dose Scr - If > 2mo ago, retest For calculation of Clcr & Lovenox dose Creatinine (mg/dL) Date Value 01/31/2015 1.03 Height Last 1 Encounter Ht Readings: Date: Ht: 02/06/2015 185.4 cm (6' 1) Weight Last 1 Encounter Wt Readings: Date: Wt: 02/06/2015 107.049 kg (236 lb) Lovenox Dose C-G Actual Body Wt Est Clcr = ml/min C-G Lean Body Wt Est Clcr = ml/min GlobalRPH Link The Lovenox dose above has been reviewed for Appropriateness based on pt specific criteria and disease state(s) Initials: Date: Bridge Instruction Sent to: Bridge Instructions Approved by Sent Via [employer] Name or Type of Procedure Date Warfarin Dose INR PLT QOD X 14 days Total Initials and Comments Right Click & Insert Row for Today'sDocumentation. 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 05/05/2021 Gall stones, common bile duct 12/07/2013 Epiretinal membrane 11/01/2013 05/05/2021 Shoulder pain 09/12/2013 05/05/2021 NO SHOW 05/03/2013 05/05/2021 Ingrown toenail 02/03/2013 05/05/2021 Senile nuclear sclerosis 01/29/2013 015 Dizziness and giddiness 09/21/2012 11/06/19 19 Other symptoms involving ner vous and musculoskeletal systems(781.99) 09/21/2012 05/05/2021 Ulcer of perianal area 07/03/2012 Overview: Present on admission Dieulafoy lesion (hemorrhagic) of intestine 06/0905/05/2021 Overview: Hx: Seen on EGD 06/30 - lesion clipped Had been on multiple NSAIDS; Steroids; previously for pericarditis. 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 Plan: Monitor H&H Q8H, transfuse as necessary, keep Hb>8 Consult IR for further intervention Protonix gtt for now, will switch to protonix 40mg bid when Hb is stable after 48-72 hours GI on board, appreciate their recs MSSA (methicillin susceptibl e Staphylococcus aureus) infection 07/03/2012 05/05/2021 Overview: Hx: MSSA infection of serosal fluids collection in L chest wall. S/P I/D on 06/19. On IV oxacillin till and then dc'ed on 06/23 with a 10 day course of Dicloxacillin. 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 Currently chest pain free; However, there is a high chance of recurrence since treatment has been on hold. Giving him steroid might actually put him at more risk of re bleeding. NSAID'S not an option for now. Plan: Consider Colchicine. If patient is to be restarted on AC, Colchicine has to be held given interaction with Coumadin. 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 DVT prophylaxis 07/03/2012 05/05/2021 Overview: Plan: Will hold off on Hep given recent GI bleed IPC's Hyperoxaluria 05/11/2012 12/07/2015 Lattice degeneration of peripheral retina 201105/05/2021 skilled nursing (current) use of anticoagulants 201005/05/2021 Overview: PCC referring MD: Micheal Mcmahan Anticoagulation management encounter 2010 05/05/2021 Other and unspecified postsurgical nonabsorption 08/25/2010 05/05/2021 Wound check, abscess 08/25/2010 05/05/2021 Hypokalemia 06/16/2010 05/05/2021 Overview: Borderline K+ at 3.6 today. Discontinue own potassium. Initiate K-dur 40meq daily. Obtain K in the AM06/17: K+ 4.1 today Will continue K-Dur 40 meq on discharge. // Hypomagnesemia 06/15/2010 05/05/2021 Overview: 06/15/2010: Magnesium 1.8 this am. Magnesium 400mg daily ordered. Mag draw in am06/16: Magnesium 1.9 today. Mag OX increased to 400mg BID. Mag draw in AM. 06/17: Magnesium 2.0 today. Will continue Mag OX 400mg BID at home. Mag blood draw on Monday. // Retinal detachment with retinal defect, unspecif ied 06/14/2010 05/05/2021 Anticoagulation monitoring, INR range 2-3 201009/28/2012 Overview: ECG on admission: AF, [id number] on tele w/ pt in bed QT/QTc: 380/460 Previous AAD: N/A Coumadin dose: 7.5mg daily INRs: see epic, therapeutic since 05/20/10. Pt goes to [facility]. CrCl:greater than 100 Will start Tikosyn per Dr Courtney Grady Plan for DCC if the pt remains in AF, IC in chart. 06/15: INR 2.9 today. Continue on Coumadin with INR check in the AM. 06/16: INR 3.1 today. Continue Coumadin. INR in the am/ 06/17: INR 3.4 today. Instructed patient to take 5mg today. INR check on Monday at [facility]// . Pulmonary embolism 03/01/2010 05/05/2021 DVT (deep venous thrombosis) 01/12/2010 Atrial fibrillation 11/03/2009 11/05/2018 Overview: Hx: Persistent A.fib s/p Mini MAZE 05/2012. Currently in sinus. Had previously failed NATHAN's and DCC x5 Assessment: Currently in Sinus On amiodarone 300mg daily for 4 weeks from D/C can now switch to 200mg daily Plan: 200 mg daily amiodarone CHADS2 score of 1, with the h/o GI bleed will hold off on anticoagulation Morbid obesity 10/14/2009 02/20/2014 Overview: s/p Gastric bypass surgery Encounter for dietary counseling and surveillanc e 10/14/2009 05/05/2021 Other specified disease of sebaceous glands 07/200805/05/2021 Corns and callosities 06/11/2008 05/05/2021 Contusion of foot 06/11/2008 05/05/2021 documented as of this encounter (statuses as of 04/26/2022) [facility] History of Past illness Narrative* Problem Noted Date Resolved Date Syncope 11/02/2018 05/05/2021 Chest pain 05/03/2018 05/05/2021 Left lower quadrant pain 05/03/2018 022 Left leg swelling 05/03/2018 05/05/2021 Presence of intraocular lens 11/14/2017 Bilateral posterior capsular opacification 11/1405/05/2021 History of detached retina repair 11/14/2017 05/05/2021 Strabismus 11/14/2017 05/05/2021 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 Continue Lovenox until INR > 2.0 or patient's INR Warfarin Indication Range Pharmacy Previous Dose Scr - If > 2mo ago, retest For calculation of Clcr & Lovenox dose Creatinine (mg/dL) Date Value 01/31/2015 1.03 Height Last 1 Encounter Ht Readings: Date: Ht: 02/06/2015 185.4 cm (6' 1) Weight Last 1 Encounter Wt Readings: Date: Wt: 02/06/2015 107.049 kg (236 lb) Lovenox Dose C-G Actual Body Wt Est Clcr = ml/min C-G Lean Body Wt Est Clcr = ml/min GlobalRPH Link The Lovenox dose above has been reviewed for Appropriateness based on pt specific criteria and disease state(s) Initials: Date: Bridge Instruction Sent to: Bridge Instructions Approved by Sent Via Epic Name or Type of Procedure Date Warfarin Dose INR PLT QOD X 14 days Total Initials and Comments Right Click & Insert Row for Today'sDocumentation. 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 05/05/2021 Gall stones, common bile duct 12/07/2013 Epiretinal membrane 11/01/2013 05/05/2021 Shoulder pain 09/12/2013 05/05/2021 NO SHOW 05/03/2013 05/05/2021 Ingrown toenail 02/03/2013 05/05/2021 Senile nuclear sclerosis 01/29/2013 015 Dizziness and giddiness 09/21/2012 11/06/19 19 Other symptoms involving ner vous and musculoskeletal systems(781.99) 09/21/2012 05/05/2021 Ulcer of perianal area 07/03/2012 Overview: Present on admission Dieulafoy lesion (hemorrhagic) of intestine 06/0905/05/2021 Overview: Hx: Seen on EGD 06/30 - lesion clipped Had been on multiple NSAIDS; Steroids; previously for pericarditis. Assessment: H/H stable at OSH; BP stable; asymptomatic currently Plan: H&H q 8h Transfuse as necessary to keep Hb>8.0 Protonix GTT, assess for 48-72 hours, if stable will transition to 40mg bid Hold AC for now Appreciate GI recs Contact IR for any intervention if huge GI Bleed Jejunal ulcer 07/03/2012 07/03/2012 Upper GI bleed 07/03/2012 05/05/2021 Overview: Hx: UGIB presenting to OSH on 06/29 with Melanotic stool; EGD showed jejunal pouch ulcers and dieulafoy lesion which were clipped and injected Given IV PPI Assessment: UGI 2/ to Dieulafoy and NSAID induced ulcers. Plan: Monitor H&H Q8H, transfuse as necessary, keep Hb>8 Consult IR for further intervention Protonix gtt for now, will switch to protonix 40mg bid when Hb is stable after 48-72 hours GI on board, appreciate their recs MSSA (methicillin susceptibl e Staphylococcus aureus) infection 07/03/2012 05/05/2021 Overview: Hx: MSSA infection of serosal fluids collection in L chest wall. S/P I/D on 06/19. On IV oxacillin till and then dc'ed on 06/23 with a 10 day course of Dicloxacillin. 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 Currently chest pain free; However, there is a high chance of recurrence since treatment has been on hold. Giving him steroid might actually put him at more risk of re bleeding. NSAID'S not an option for now. Plan: Consider Colchicine. If patient is to be restarted on AC, Colchicine has to be held given interaction with Coumadin. 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 Discontinue own potassium. Initiate K-dur 40meq daily. Obtain K in the AM06/17: K+ 4.1 today Will continue K-Dur 40 meq on discharge. // Hypomagnesemia 06/15/2010 05/05/2021 Overview: 06/15/2010: Magnesium 1.8 this am. Magnesium 400mg daily ordered. Mag draw in am06/16: Magnesium 1.9 today. Mag OX increased to 400mg BID. Mag draw in AM. 06/17: Magnesium 2.0 today. Will continue Mag OX 400mg BID at home. Mag blood draw on Monday. // Retinal detachment with retinal defect, unspecif ied 06/14/2010 05/05/2021 Anticoagulation monitoring, INR range 2-3 201009/28/2012 Overview: ECG on admission: AF, [id number] on tele w/ pt in bed QT/QTc: 380/460 Previous AAD: N/A Coumadin dose: 7.5mg daily INRs: see epic, therapeutic since 05/20/10. Pt goes to [facility]. CrCl:greater than 100 Will start Tikosyn per Dr Courtney Grady Plan for DCC if the pt remains in AF, IC in chart. 06/15: INR 2.9 today. Continue on Coumadin with INR check in the AM. 06/16: INR 3.1 today. Continue Coumadin. INR in the am/06/17: INR 3.4 today. Instructed patient to take 5mg today. INR check on Monday at [facility]// . Pulmonary embolism 03/01/2010 05/05/2021 DVT (deep venous thrombosis) 01/12/2010 Atrial fibrillation 11/03/2009 11/05/2018 Overview: Hx: Persistent A.fib s/p Mini MAZE 05/2012. Currently in sinus. Had previously failed NATHAN's and DCC x5 Assessment: Currently in Sinus On amiodarone 300mg daily for 4 weeks from D/C can now switch to 200mg daily Plan: 200 mg daily amiodarone CHADS2 score of 1, with the h/o GI bleed will hold off on anticoagulation Morbid obesity 10/14/2009 02/20/2014 Overview: s/p Gastric bypass surgery Encounter for dietary counseling and surveillanc e 10/14/2009 05/05/2021 Other specified disease of sebaceous glands 07/200805/05/2021 Corns and callosities 06/11/2008 05/05/2021 Contusion of foot 06/11/2008 05/05/2021 documented as of this encounter (statuses as of 05/02/2022) [facility] History of Past illness Narrative* Problem Noted Date Resolved Date Syncope 11/02/2018 05/05/2021 Chest pain 05/03/2018 05/05/2021 Left lower quadrant pain 05/03/2018 022 Left leg swelling 05/03/2018 05/05/2021 Presence of intraocular lens 11/14/2017 Bilateral posterior capsular opacification 11/1405/05/2021 History of detached retina repair 11/14/2017 05/05/2021 Strabismus 11/14/2017 05/05/2021 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 Continue Lovenox until INR > 2.0 or patient's INR Warfarin Indication Range Pharmacy Previous Dose Scr - If > 2mo ago, retest For calculation of Clcr & Lovenox dose Creatinine (mg/dL) Date Value 01/31/2015 1.03 Height Last 1 Encounter Ht Readings: Date: Ht: 02/06/2015 185.4 cm (6' 1) Weight Last 1 Encounter Wt Readings: Date: Wt: 02/06/2015 107.049 kg (236 lb) Lovenox Dose C-G Actual Body Wt Est Clcr = ml/min C-G Lean Body Wt Est Clcr = ml/min GlobalRPH Link The Lovenox dose above has been reviewed for Appropriateness based on pt specific criteria and disease state(s) Initials: Date: Bridge Instruction Sent to: Bridge Instructions Approved by Sent Via [employer] Name or Type of Procedure Date Warfarin Dose INR PLT QOD X 14 days Total Initials and Comments Right Click & Insert Row for Today'sDocumentation. 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 05/05/2021 Gall stones, common bile duct 12/07/2013 Epiretinal membrane 11/01/2013 05/05/2021 Shoulder pain 09/12/2013 05/05/2021 NO SHOW 05/03/2013 05/05/2021 Ingrown toenail 02/03/2013 05/05/2021 Senile nuclear sclerosis 01/29/2013 015 Dizziness and giddiness 09/21/2012 11/06/19 19 Other symptoms involving ner vous and musculoskeletal systems(781.99) 09/21/2012 05/05/2021 Ulcer of perianal area 07/03/2012 Overview: Present on admission Dieulafoy lesion (hemorrhagic) of intestine 06/0905/05/2021 Overview: Hx: Seen on EGD 06/30 - lesion clipped Had been on multiple NSAIDS; Steroids; previously for pericarditis. 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 Plan: Monitor H&H Q8H, transfuse as necessary, keep Hb>8 Consult IR for further intervention Protonix gtt for now, will switch to protonix 40mg bid when Hb is stable after 48-72 hours GI on board, appreciate their recs MSSA (methicillin susceptibl e Staphylococcus aureus) infection 07/03/2012 05/05/2021 Overview: Hx: MSSA infection of serosal fluids collection in L chest wall. S/P I/D on 06/19. On IV oxacillin till and then dc'ed on 06/23 with a 10 day course of Dicloxacillin. 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 Currently chest pain free; However, there is a high chance of recurrence since treatment has been on hold. Giving him steroid might actually put him at more risk of re bleeding. NSAID'S not an option for now. Plan: Consider Colchicine. If patient is to be restarted on AC, Colchicine has to be held given interaction with Coumadin. 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 DVT prophylaxis 07/03/2012 05/05/2021 Overview: Plan: Will hold off on Hep given recent GI bleed IPC's Hyperoxaluria 05/11/2012 12/07/2015 Lattice degeneration of peripheral retina 201105/05/2021 skilled nursing (current) use of anticoagulants 201005/05/2021 Overview: PCC referring MD: Michael Mcmahan Anticoagulation management encounter 2010 05/05/2021 Other and unspecified postsurgical nonabsorption 08/25/2010 05/05/2021 Wound check, abscess 08/25/2010 05/05/2021 Hypokalemia 06/16/2010 05/05/2021 Overview: Borderline K+ at 3.6 today. Discontinue own potassium. Initiate K-dur 40meq daily. Obtain K in the AM/ 06/17: K+ 4.1 today Will continue K-Dur 40 meq on discharge. // Hypomagnesemia 06/15/2010 05/05/2021 Overview: 06/15/2010: Magnesium 1.8 this am. Magnesium 400mg daily ordered. Mag draw in am06/16: Magnesium 1.9 today. Mag OX increased to 400mg BID. Mag draw in AM. 06/17: Magnesium 2.0 today. Will continue Mag OX 400mg BID at home. Mag blood draw on Monday. // Retinal detachment with retinal defect, unspecif ied 06/14/2010 05/05/2021 Anticoagulation monitoring, INR range 2-3 201009/28/2012 Overview: ECG on admission: AF, [id number] on tele w/ pt in bed QT/QTc: 380/460 Previous AAD: N/A Coumadin dose: 7.5mg daily INRs: see epic, therapeutic since 05/20/10. Pt goes to [facility]. CrCl:greater than 100 Will start Tikosyn per Dr Courtney Grady Plan for DCC if the pt remains in AF, IC in chart. 06/15: INR 2.9 today. Continue on Coumadin with INR check in the AM. 06/16: INR 3.1 today. Continue Coumadin. INR in the am/06/17: INR 3.4 today. Instructed patient to take 5mg today. INR check on Monday at [facility]// . Pulmonary embolism 03/01/2010 05/05/2021 DVT (deep venous thrombosis) 01/12/2010 Atrial fibrillation 11/03/2009 11/05/2018 Overview: Hx: Persistent A.fib s/p Mini MAZE 05/2012. Currently in sinus. Had previously failed NATAHN's and DCC x5 Assessment: Currently in Sinus On amiodarone 300mg daily for 4 weeks from D/C can now switch to 200mg daily Plan: 200 mg daily amiodarone CHADS2 score of 1, with the h/o GI bleed will hold off on anticoagulation Morbid obesity 10/14/2009 02/20/2014 Overview: s/p Gastric bypass surgery Encounter for dietary counseling and surveillanc e 10/14/2009 05/05/2021 Other specified disease of sebaceous glands 07/200805/05/2021 Corns and callosities 06/11/2008 05/05/2021 Contusion of foot 06/11/2008 05/05/2021 documented as of this encounter (statuses as of 05/05/2022) [facility] History of Past illness Narrative* Problem Noted Date Resolved Date Syncope 11/02/2018 05/05/2021 Chest pain 05/03/2018 05/05/2021 Left lower quadrant pain 05/03/2018 022 Left leg swelling 05/03/2018 05/05/2021 Presence of intraocular lens 11/14/2017 Bilateral posterior capsular opacification 11/1405/05/2021 History of detached retina repair 11/14/2017 05/05/2021 Strabismus 11/14/2017 05/05/2021 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 Continue Lovenox until INR > 2.0 or patient's INR Warfarin Indication Range Pharmacy Previous Dose Scr - If > 2mo ago, retest For calculation of Clcr & Lovenox dose Creatinine (mg/dL) Date Value 01/31/2015 1.03 Height Last 1 Encounter Ht Readings: Date: Ht: 02/06/2015 185.4 cm (6' 1) Weight Last 1 Encounter Wt Readings: Date: Wt: 02/06/2015 107.049 kg (236 lb) Lovenox Dose C-G Actual Body Wt Est Clcr = ml/min C-G Lean Body Wt Est Clcr = ml/min GlobalRPH Link The Lovenox dose above has been reviewed for Appropriateness based on pt specific criteria and disease state(s) Initials: Date: Bridge Instruction Sent to: Bridge Instructions Approved by Sent Via Epic Name or Type of Procedure Date Warfarin Dose INR PLT QOD X 14 days Total Initials and Comments Right Click & Insert Row for Today'sDocumentation. 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 05/05/2021 Gall stones, common bile duct 12/07/2013 Epiretinal membrane 11/01/2013 05/05/2021 Shoulder pain 09/12/2013 05/05/2021 NO SHOW 05/03/2013 05/05/2021 Ingrown toenail 02/03/2013 05/05/2021 Senile nuclear sclerosis 01/29/2013 015 Dizziness and giddiness 09/21/2012 11/06/19 19 Other symptoms involving ner vous and musculoskeletal systems(781.99) 09/21/2012 05/05/2021 Ulcer of perianal area 07/03/2012 Overview: Present on admission Dieulafoy lesion (hemorrhagic) of intestine 06/0905/05/2021 Overview: Hx: Seen on EGD 06/30 - lesion clipped Had been on multiple NSAIDS; Steroids; previously for pericarditis. 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 Plan: Monitor H&H Q8H, transfuse as necessary, keep Hb>8 Consult IR for further intervention Protonix gtt for now, will switch to protonix 40mg bid when Hb is stable after 48-72 hours GI on board, appreciate their recs MSSA (methicillin susceptibl e Staphylococcus aureus) infection 07/03/2012 05/05/2021 Overview: Hx: MSSA infection of serosal fluids collection in L chest wall. S/P I/D on 06/19. On IV oxacillin till and then dc'ed on 06/23 with a 10 day course of Dicloxacillin. 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 Currently chest pain free; However, there is a high chance of recurrence since treatment has been on hold. Giving him steroid might actually put him at more risk of re bleeding. NSAID'S not an option for now. Plan: Consider Colchicine. If patient is to be restarted on AC, Colchicine has to be held given interaction with Coumadin. 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 DVT prophylaxis 07/03/2012 05/05/2021 Overview: Plan: Will hold off on Hep given recent GI bleed IPC's Hyperoxaluria 05/11/2012 12/07/2015 Lattice degeneration of peripheral retina 201105/05/2021 skilled nursing (current) use of anticoagulants 201005/05/2021 Overview: PCC referring MD: Michael Mcmahan Anticoagulation management encounter 2010 05/05/2021 Other and unspecified postsurgical nonabsorption 08/25/2010 05/05/2021 Wound check, abscess 08/25/2010 05/05/2021 Hypokalemia 06/16/2010 05/05/2021 Overview: Borderline K+ at 3.6 today. Discontinue own potassium. Initiate K-dur 40meq daily. Obtain K in the AM06/17: K+ 4.1 today Will continue K-Dur 40 meq on discharge. // Hypomagnesemia 06/15/2010 05/05/2021 Overview: 06/15/2010: Magnesium 1.8 this am. Magnesium 400mg daily ordered. Mag draw in am06/16: Magnesium 1.9 today. Mag OX increased to 400mg BID. Mag draw in AM. 06/17: Magnesium 2.0 today. Will continue Mag OX 400mg BID at home. Mag blood draw on Monday. // Retinal detachment with retinal defect, unspecif ied 06/14/2010 05/05/2021 Anticoagulation monitoring, INR range 2-3 201009/28/2012 Overview: ECG on admission: AF, [id number] on tele w/ pt in bed QT/QTc: 380/460 Previous AAD: N/A Coumadin dose: 7.5mg daily INRs: see epic, therapeutic since 05/20/10. Pt goes to [facility]. CrCl:greater than 100 Will start Tikosyn per Dr Courtney Grady Plan for DCC if the pt remains in AF, IC in chart. 06/15: INR 2.9 today. Continue on Coumadin with INR check in the AM. 06/16: INR 3.1 today. Continue Coumadin. INR in the am// 06/17: INR 3.4 today. Instructed patient to take 5mg today. INR check on Monday at [facility]// . Pulmonary embolism 03/01/2010 05/05/2021 DVT (deep venous thrombosis) 01/12/2010 Atrial fibrillation 11/03/2009 11/05/2018 Overview: Hx: Persistent A.fib s/p Mini MAZE 05/2012. Currently in sinus. Had previously failed NATHAN's and DCC x5 Assessment: Currently in Sinus On amiodarone 300mg daily for 4 weeks from D/C can now switch to 200mg daily Plan: 200 mg daily amiodarone CHADS2 score of 1, with the h/o GI bleed will hold off on anticoagulation Morbid obesity 10/14/2009 02/20/2014 Overview: s/p Gastric bypass surgery Encounter for dietary counseling and surveillanc e 10/14/2009 05/05/2021 Other specified disease of sebaceous glands 07/200805/05/2021 Corns and callosities 06/11/2008 05/05/2021 Contusion of foot 06/11/2008 05/05/2021 documented as of this encounter (statuses as of 05/05/2022) [facility] History of Past illness Narrative* Problem Noted Date Resolved Date Syncope 11/02/2018 05/05/2021 Chest pain 05/03/2018 05/05/2021 Left lower quadrant pain 05/03/2018 022 Left leg swelling 05/03/2018 05/05/2021 Microhematuria 01/19/2018 05/09/2022 Overview: Added automatically from request for surgery [id number] Presence of intraocular lens 11/14/2017 Bilateral posterior capsular opacification 11/1405/05/2021 History of detached retina repair 11/14/2017 05/05/2021 Strabismus 11/14/2017 05/05/2021 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 Continue Lovenox until INR > 2.0 or patient's INR Warfarin Indication Range Pharmacy Previous Dose Scr - If > 2mo ago, retest For calculation of Clcr & Lovenox dose Creatinine (mg/dL) Date Value 01/31/2015 1.03 Height Last 1 Encounter Ht Readings: Date: Ht: 02/06/2015 185.4 cm (6' 1) Weight Last 1 Encounter Wt Readings: Date: Wt: 02/06/2015 107.049 kg (236 lb) Lovenox Dose C-G Actual Body Wt Est Clcr = ml/min C-G Lean Body Wt Est Clcr = ml/min GlobalRPH Link The Lovenox dose above has been reviewed for Appropriateness based on pt specific criteria and disease state(s) Initials: Date: Bridge Instruction Sent to: Bridge Instructions Approved by Sent Via [employer] Name or Type of Procedure Date Warfarin Dose INR PLT QOD X 14 days Total Initials and Comments Right Click & Insert Row for Today'sDocumentation. 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 Currently chest pain free; Talked with cardiology - said no need for treatment is patient is treatment free Plan: Continue to monitor Ulcer of perianal area 07/03/2012 Overview: Present on admission Dieulafoy lesion (hemorrhagic) of intestine 06/0905/05/2021 Overview: Hx: Seen on EGD 06/30 - lesion clipped Had been on multiple NSAIDS; Steroids; previously for pericarditis. 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 Plan: Monitor H&H Q8H, transfuse as necessary, keep Hb>8 Consult IR for further intervention Protonix gtt for now, will switch to protonix 40mg bid when Hb is stable after 48-72 hours GI on board, appreciate their recs MSSA (methicillin susceptibl e Staphylococcus aureus) infection 07/03/2012 05/05/2021 Overview: Hx: MSSA infection of serosal fluids collection in L chest wall. S/P I/D on 06/19. On IV oxacillin till and then dc'ed on 06/23 with a 10 day course of Dicloxacillin. 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 Currently chest pain free; However, there is a high chance of recurrence since treatment has been on hold. Giving him steroid might actually put him at more risk of re bleeding. NSAID'S not an option for now. Plan: Consider Colchicine. If patient is to be restarted on AC, Colchicine has to be held given interaction with Coumadin. 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 DVT prophylaxis 07/03/2012 05/05/2021 Overview: Plan: Will hold off on Hep given recent GI bleed IPC's Nephrolithiasis 05/11/2012 05/09/2022 Hyperoxaluria 05/11/2012 12/07/2015 Rhinitis 10/05/2011 05/09/2022 Lattice degeneration of peripheral retina 201105/05/2021 emt intermediate (current) use of anticoagulants 201005/05/2021 Overview: PCC referring MD: Michael Mcmahan Anticoagulation management encounter 2010 05/05/2021 Other and unspecified postsurgical nonabsorption 08/25/2010 05/05/2021 Wound check, abscess 08/25/2010 05/05/2021 Hypokalemia 06/16/2010 05/05/2021 Overview: Borderline K+ at 3.6 today. Discontinue own potassium. Initiate K-dur 40meq daily. Obtain K in the AM06/17: K+ 4.1 today Will continue K-Dur 40 meq on discharge. // Hypomagnesemia 06/15/2010 05/05/2021 Overview: 06/15/2010: Magnesium 1.8 this am. Magnesium 400mg daily ordered. Mag draw in am06/16: Magnesium 1.9 today. Mag OX increased to 400mg BID. Mag draw in AM. 06/17: Magnesium 2.0 today. Will continue Mag OX 400mg BID at home. Mag blood draw on Monday. // Retinal detachment with retinal defect, unspecif ied 06/14/2010 05/05/2021 Anticoagulation monitoring, INR range 2-3 201009/28/2012 Overview: ECG on admission: AF, [id number] on tele w/ pt in bed QT/QTc: 380/460 Previous AAD: N/A Coumadin dose: 7.5mg daily INRs: see epic, therapeutic since 05/20/10. [facility]. CrCl:greater than 100 Will start Tikosyn per Dr Courtney Grady Plan for DCC if the pt remains in AF, IC in chart. 06/15: INR 2.9 today. Continue on Coumadin with INR check in the AM. 06/16: INR 3.1 today. Continue Coumadin. INR in the am/06/17: INR 3.4 today. Instructed patient to take 5mg today. INR check on Monday at [facility]// . Pulmonary embolism 03/01/2010 05/05/2021 DVT (deep venous thrombosis) 01/12/2010 Atrial fibrillation 11/03/2009 11/05/2018 Overview: Hx: Persistent A.fib s/p Mini MAZE 05/2012. Currently in sinus. Had previously failed NATHAN's and DCC x5 Assessment: Currently in Sinus On amiodarone 300mg daily for 4 weeks from D/C can now switch to 200mg daily Plan: 200 mg daily amiodarone CHADS2 score of 1, with the h/o GI bleed will hold off on anticoagulation Morbid obesity 10/14/2009 02/20/2014 Overview: s/p Gastric bypass surgery Encounter for dietary counseling and surveillanc e 10/14/2009 05/05/2021 Other specified disease of sebaceous glands 07/200805/05/2021 Corns and callosities 06/11/2008 05/05/2021 Contusion of foot 06/11/2008 05/05/2021 Torn rotator cuff 05/09/2022 documented as of this encounter (statuses as of 05/09/2022) [facility] History of Past illness Narrative* Problem Noted Date Resolved Date Syncope 11/02/2018 05/05/2021 Chest pain 05/03/2018 05/05/2021 Left lower quadrant pain 05/03/2018 022 Left leg swelling 05/03/2018 05/05/2021 Microhematuria 01/19/2018 05/09/2022 Overview: Added automatically from request for surgery [id number] Presence of intraocular lens 11/14/2017 Bilateral posterior capsular opacification 11/1405/05/2021 History of detached retina repair 11/14/2017 05/05/2021 Strabismus 11/14/2017 05/05/2021 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 Continue Lovenox until INR > 2.0 or patient's INR Warfarin Indication Range Pharmacy Previous Dose Scr - If > 2mo ago, retest For calculation of Clcr & Lovenox dose Creatinine (mg/dL) Date Value 01/31/2015 1.03 Height Last 1 Encounter Ht Readings: Date: Ht: 02/06/2015 185.4 cm (6' 1) Weight Last 1 Encounter Wt Readings: Date: Wt: 02/06/2015 107.049 kg (236 lb) Lovenox Dose C-G Actual Body Wt Est Clcr = ml/min C-G Lean Body Wt Est Clcr = ml/min GlobalRPH Link The Lovenox dose above has been reviewed for Appropriateness based on pt specific criteria and disease state(s) Initials: Date: Bridge Instruction Sent to: Bridge Instructions Approved by Sent Via [facility] Name or Type of Procedure Date Warfarin Dose INR PLT QOD X 14 days Total Initials and Comments Right Click & Insert Row for Today'sDocumentation. 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 Currently chest pain free; Talked with cardiology - said no need for treatment is patient is treatment free Plan: Continue to monitor Ulcer of perianal area 07/03/2012 Overview: Present on admission Dieulafoy lesion (hemorrhagic) of intestine 06/0905/05/2021 Overview: Hx: Seen on EGD 06/30 - lesion clipped Had been on multiple NSAIDS; Steroids; previously for pericarditis. 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 Plan: Monitor H&H Q8H, transfuse as necessary, keep Hb>8 Consult IR for further intervention Protonix gtt for now, will switch to protonix 40mg bid when Hb is stable after 48-72 hours GI on board, appreciate their recs MSSA (methicillin susceptibl e Staphylococcus aureus) infection 07/03/2012 05/05/2021 Overview: Hx: MSSA infection of serosal fluids collection in L chest wall. S/P I/D on 06/19. On IV oxacillin till and then dc'ed on 06/23 with a 10 day course of Dicloxacillin. 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 Currently chest pain free; However, there is a high chance of recurrence since treatment has been on hold. Giving him steroid might actually put him at more risk of re bleeding. NSAID'S not an option for now. Plan: Consider Colchicine. If patient is to be restarted on AC, Colchicine has to be held given interaction with Coumadin. 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 DVT prophylaxis 07/03/2012 05/05/2021 Overview: Plan: Will hold off on Hep given recent GI bleed IPC's Nephrolithiasis 05/11/2012 05/09/2022 Hyperoxaluria 05/11/2012 12/07/2015 Rhinitis 10/05/2011 05/09/2022 Lattice degeneration of peripheral retina 201105/05/2021 skilled nursing (current) use of anticoagulants 201005/05/2021 Overview: PCC referring MD: Michael Mcmahan Anticoagulation management encounter 2010 05/05/2021 Other and unspecified postsurgical nonabsorption 08/25/2010 05/05/2021 Wound check, abscess 08/25/2010 05/05/2021 Hypokalemia 06/16/2010 05/05/2021 Overview: Borderline K+ at 3.6 today. Discontinue own potassium. Initiate K-dur 40meq daily. Obtain K in the AM06/17: K+ 4.1 today Will continue K-Dur 40 meq on discharge. // Hypomagnesemia 06/15/2010 05/05/2021 Overview: 06/15/2010: Magnesium 1.8 this am. Magnesium 400mg daily ordered. Mag draw in am06/16: Magnesium 1.9 today. Mag OX increased to 400mg BID. Mag draw in AM. 06/17: Magnesium 2.0 today. Will continue Mag OX 400mg BID at home. Mag blood draw on Monday. // Retinal detachment with retinal defect, unspecif ied 06/14/2010 05/05/2021 Anticoagulation monitoring, INR range 2-3 201009/28/2012 Overview: ECG on admission: AF, [id number] on tele w/ pt in bed QT/QTc: 380/460 Previous AAD: N/A Coumadin dose: 7.5mg daily INRs: see epic, therapeutic since 05/20/10. Pt goes to [facility]. CrCl:greater than 100 Will start Tikosyn per Dr Courtney Grady Plan for DCC if the pt remains in AF, IC in chart. 06/15: INR 2.9 today. Continue on Coumadin with INR check in the AM. 06/16: INR 3.1 today. Continue Coumadin. INR in the am06/17: INR 3.4 today. Instructed patient to take 5mg today. INR check on Monday at [place]// . Pulmonary embolism 03/01/2010 05/05/2021 DVT (deep venous thrombosis) 01/12/2010 Atrial fibrillation 11/03/2009 11/05/2018 Overview: Hx: Persistent A.fib s/p Mini MAZE 05/2012. Currently in sinus. Had previously failed NATHAN's and DCC x5 Assessment: Currently in Sinus On amiodarone 300mg daily for 4 weeks from D/C can now switch to 200mg daily Plan: 200 mg daily amiodarone CHADS2 score of 1, with the h/o GI bleed will hold off on anticoagulation Morbid obesity 10/14/2009 02/20/2014 Overview: s/p Gastric bypass surgery Encounter for dietary counseling and surveillanc e 10/14/2009 05/05/2021 Other specified disease of sebaceous glands 07/200805/05/2021 Corns and callosities 06/11/2008 05/05/2021 Contusion of foot 06/11/2008 05/05/2021 Torn rotator cuff 05/09/2022 documented as of this encounter (statuses as of 05/18/2022) [facility] History of Past illness Narrative* Problem Noted Date Resolved Date Syncope 11/02/2018 05/05/2021 Chest pain 05/03/2018 05/05/2021 Left lower quadrant pain 05/03/2018 022 Left leg swelling 05/03/2018 05/05/2021 Microhematuria 01/19/2018 05/09/2022 Overview: Added automatically from request for surgery [id number] Presence of intraocular lens 11/14/2017 Bilateral posterior capsular opacification 11/1405/05/2021 History of detached retina repair 11/14/2017 05/05/2021 Strabismus 11/14/2017 05/05/2021 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 Continue Lovenox until INR > 2.0 or patient's INR Warfarin Indication Range Pharmacy Previous Dose Scr - If > 2mo ago, retest For calculation of Clcr & Lovenox dose Creatinine (mg/dL) Date Value 01/31/2015 1.03 Height Last 1 Encounter Ht Readings: Date: Ht: 02/06/2015 185.4 cm (6' 1) Weight Last 1 Encounter Wt Readings: Date: Wt: 02/06/2015 107.049 kg (236 lb) Lovenox Dose C-G Actual Body Wt Est Clcr = ml/min C-G Lean Body Wt Est Clcr = ml/min GlobalRPH Link The Lovenox dose above has been reviewed for Appropriateness based on pt specific criteria and disease state(s) Initials: Date: Bridge Instruction Sent to: Bridge Instructions Approved by Sent Via Epic Name or Type of Procedure Date Warfarin Dose INR PLT QOD X 14 days Total Initials and Comments Right Click & Insert Row for Today'sDocumentation. 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 Currently chest pain free; Talked with cardiology - said no need for treatment is patient is treatment free Plan: Continue to monitor Ulcer of perianal area 07/03/2012 Overview: Present on admission Dieulafoy lesion (hemorrhagic) of intestine 06/0905/05/2021 Overview: Hx: Seen on EGD 06/30 - lesion clipped Had been on multiple NSAIDS; Steroids; previously for pericarditis. 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 Plan: Monitor H&H Q8H, transfuse as necessary, keep Hb>8 Consult IR for further intervention Protonix gtt for now, will switch to protonix 40mg bid when Hb is stable after 48-72 hours GI on board, appreciate their recs MSSA (methicillin susceptibl e Staphylococcus aureus) infection 07/03/2012 05/05/2021 Overview: Hx: MSSA infection of serosal fluids collection in L chest wall. S/P I/D on 06/19. On IV oxacillin till and then dc'ed on 06/23 with a 10 day course of Dicloxacillin. 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 Currently chest pain free; However, there is a high chance of recurrence since treatment has been on hold. Giving him steroid might actually put him at more risk of re bleeding. NSAID'S not an option for now. Plan: Consider Colchicine. If patient is to be restarted on AC, Colchicine has to be held given interaction with Coumadin. 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 DVT prophylaxis 07/03/2012 05/05/2021 Overview: Plan: Will hold off on Hep given recent GI bleed IPC's Nephrolithiasis 05/11/2012 05/09/2022 Hyperoxaluria 05/11/2012 12/07/2015 Rhinitis 10/05/2011 05/09/2022 Lattice degeneration of peripheral retina 201105/05/2021 emt intermediate (current) use of anticoagulants 201005/05/2021 Overview: PCC referring MD: Michael Mcmahan Anticoagulation management encounter 2010 05/05/2021 Other and unspecified postsurgical nonabsorption 08/25/2010 05/05/2021 Wound check, abscess 08/25/2010 05/05/2021 Hypokalemia 06/16/2010 05/05/2021 Overview: Borderline K+ at 3.6 today. Discontinue own potassium. Initiate K-dur 40meq daily. Obtain K in the AM06/17: K+ 4.1 today Will continue K-Dur 40 meq on discharge. // Hypomagnesemia 06/15/2010 05/05/2021 Overview: 06/15/2010: Magnesium 1.8 this am. Magnesium 400mg daily ordered. Mag draw in am06/16: Magnesium 1.9 today. Mag OX increased to 400mg BID. Mag draw in AM. 06/17: Magnesium 2.0 today. Will continue Mag OX 400mg BID at home. Mag blood draw on Monday. // Retinal detachment with retinal defect, unspecif ied 06/14/2010 05/05/2021 Anticoagulation monitoring, INR range 2-3 201009/28/2012 Overview: ECG on admission: AF, [id number] on tele w/ pt in bed QT/QTc: 380/460 Previous AAD: N/A Coumadin dose: 7.5mg daily INRs: see epic, therapeutic since 05/20/10. Pt goes to [facility]. CrCl:greater than 100 Will start Tikosyn per Dr Courtney Grady Plan for DCC if the pt remains in AF, IC in chart. 06/15: INR 2.9 today. Continue on Coumadin with INR check in the AM. 06/16: INR 3.1 today. Continue Coumadin. INR in the am06/17: INR 3.4 today. Instructed patient to take 5mg today. INR check on Monday at [place]// . Pulmonary embolism 03/01/2010 05/05/2021 DVT (deep venous thrombosis) 01/12/2010 Atrial fibrillation 11/03/2009 11/05/2018 Overview: Hx: Persistent A.fib s/p Mini MAZE 05/2012. Currently in sinus. Had previously failed NATHAN's and DCC x5 Assessment: Currently in Sinus On amiodarone 300mg daily for 4 weeks from D/C can now switch to 200mg daily Plan: 200 mg daily amiodarone CHADS2 score of 1, with the h/o GI bleed will hold off on anticoagulation Morbid obesity 10/14/2009 02/20/2014 Overview: s/p Gastric bypass surgery Encounter for dietary counseling and surveillanc e 10/14/2009 05/05/2021 Other specified disease of sebaceous glands 07/200805/05/2021 Corns and callosities 06/11/2008 05/05/2021 Contusion of foot 06/11/2008 05/05/2021 Torn rotator cuff 05/09/2022 documented as of this encounter (statuses as of 06/13/2022) [facility] History of Past illness Narrative* Problem Noted Date Resolved Date Syncope 11/02/2018 05/05/2021 Chest pain 05/03/2018 05/05/2021 Left lower quadrant pain 05/03/2018 022 Left leg swelling 05/03/2018 05/05/2021 Microhematuria 01/19/2018 05/09/2022 Overview: Added automatically from request for surgery [id number] Presence of intraocular lens 11/14/2017 Bilateral posterior capsular opacification 11/1405/05/2021 History of detached retina repair 11/14/2017 05/05/2021 Strabismus 11/14/2017 05/05/2021 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 Continue Lovenox until INR > 2.0 or patient's INR Warfarin Indication Range Pharmacy Previous Dose Scr - If > 2mo ago, retest For calculation of Clcr & Lovenox dose Creatinine (mg/dL) Date Value 01/31/2015 1.03 Height Last 1 Encounter Ht Readings: Date: Ht: 02/06/2015 185.4 cm (6' 1) Weight Last 1 Encounter Wt Readings: Date: Wt: 02/06/2015 107.049 kg (236 lb) Lovenox Dose C-G Actual Body Wt Est Clcr = ml/min C-G Lean Body Wt Est Clcr = ml/min GlobalRPH Link The Lovenox dose above has been reviewed for Appropriateness based on pt specific criteria and disease state(s) Initials: Date: Bridge Instruction Sent to: Bridge Instructions Approved by Sent Via Epic Name or Type of Procedure Date Warfarin Dose INR PLT QOD X 14 days Total Initials and Comments Right Click & Insert Row for Today'sDocumentation. 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 Currently chest pain free; Talked with cardiology - said no need for treatment is patient is treatment free Plan: Continue to monitor Ulcer of perianal area 07/03/2012 Overview: Present on admission Dieulafoy lesion (hemorrhagic) of intestine 06/0905/05/2021 Overview: Hx: Seen on EGD 06/30 - lesion clipped Had been on multiple NSAIDS; Steroids; previously for pericarditis. 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 Plan: Monitor H&H Q8H, transfuse as necessary, keep Hb>8 Consult IR for further intervention Protonix gtt for now, will switch to protonix 40mg bid when Hb is stable after 48-72 hours GI on board, appreciate their recs MSSA (methicillin susceptibl e Staphylococcus aureus) infection 07/03/2012 05/05/2021 Overview: Hx: MSSA infection of serosal fluids collection in L chest wall. S/P I/D on 06/19. On IV oxacillin till and then dc'ed on 06/23 with a 10 day course of Dicloxacillin. 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 Currently chest pain free; However, there is a high chance of recurrence since treatment has been on hold. Giving him steroid might actually put him at more risk of re bleeding. NSAID'S not an option for now. Plan: Consider Colchicine. If patient is to be restarted on AC, Colchicine has to be held given interaction with Coumadin. 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 DVT prophylaxis 07/03/2012 05/05/2021 Overview: Plan: Will hold off on Hep given recent GI bleed IPC's Nephrolithiasis 05/11/2012 05/09/2022 Hyperoxaluria 05/11/2012 12/07/2015 Rhinitis 10/05/2011 05/09/2022 Lattice degeneration of peripheral retina 201105/05/2021 emt intermediate (current) use of anticoagulants 201005/05/2021 Overview: PCC referring MD: Michael Mcmahan Anticoagulation management encounter 2010 05/05/2021 Other and unspecified postsurgical nonabsorption 08/25/2010 05/05/2021 Wound check, abscess 08/25/2010 05/05/2021 Hypokalemia 06/16/2010 05/05/2021 Overview: Borderline K+ at 3.6 today. Discontinue own potassium. Initiate K-dur 40meq daily. Obtain K in the AM06/17: K+ 4.1 today Will continue K-Dur 40 meq on discharge. // Hypomagnesemia 06/15/2010 05/05/2021 Overview: 06/15/2010: Magnesium 1.8 this am. Magnesium 400mg daily ordered. Mag draw in am06/16: Magnesium 1.9 today. Mag OX increased to 400mg BID. Mag draw in AM. 06/17: Magnesium 2.0 today. Will continue Mag OX 400mg BID at home. Mag blood draw on Monday. // Retinal detachment with retinal defect, unspecif ied 06/14/2010 05/05/2021 Anticoagulation monitoring, INR range 2-3 201009/28/2012 Overview: ECG on admission: AF, [id number] on tele w/ pt in bed QT/QTc: 380/460 Previous AAD: N/A Coumadin dose: 7.5mg daily INRs: see epic, therapeutic since 05/20/10. Pt goes to [facility]. CrCl:greater than 100 Will start Tikosyn per Dr Courtney Grady Plan for DCC if the pt remains in AF, IC in chart. 06/15: INR 2.9 today. Continue on Coumadin with INR check in the AM. 06/16: INR 3.1 today. Continue Coumadin. INR in the am06/17: INR 3.4 today. Instructed patient to take 5mg today. INR check on Monday at [place]// . Pulmonary embolism 03/01/2010 05/05/2021 DVT (deep venous thrombosis) 01/12/2010 Atrial fibrillation 11/03/2009 11/05/2018 Overview: Hx: Persistent A.fib s/p Mini MAZE 05/2012. Currently in sinus. Had previously failed NATHAN's and DCC x5 Assessment: Currently in Sinus On amiodarone 300mg daily for 4 weeks from D/C can now switch to 200mg daily Plan: 200 mg daily amiodarone CHADS2 score of 1, with the h/o GI bleed will hold off on anticoagulation Morbid obesity 10/14/2009 02/20/2014 Overview: s/p Gastric bypass surgery Encounter for dietary counseling and surveillanc e 10/14/2009 05/05/2021 Other specified disease of sebaceous glands 07/200805/05/2021 Corns and callosities 06/11/2008 05/05/2021 Contusion of foot 06/11/2008 05/05/2021 Torn rotator cuff 05/09/2022 documented as of this encounter (statuses as of 06/22/2022) [facility] History of Past illness Narrative* Problem Noted Date Resolved Date Syncope 11/02/2018 05/05/2021 Chest pain 05/03/2018 05/05/2021 Left lower quadrant pain 05/03/2018 022 Left leg swelling 05/03/2018 05/05/2021 Microhematuria 01/19/2018 05/09/2022 Overview: Added automatically from request for surgery [id number] Presence of intraocular lens 11/14/2017 Bilateral posterior capsular opacification 11/1405/05/2021 History of detached retina repair 11/14/2017 05/05/2021 Strabismus 11/14/2017 05/05/2021 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 Continue Lovenox until INR > 2.0 or patient's INR Warfarin Indication Range Pharmacy Previous Dose Scr - If > 2mo ago, retest For calculation of Clcr & Lovenox dose Creatinine (mg/dL) Date Value 01/31/2015 1.03 Height Last 1 Encounter Ht Readings: Date: Ht: 02/06/2015 185.4 cm (6' 1) Weight Last 1 Encounter Wt Readings: Date: Wt: 02/06/2015 107.049 kg (236 lb) Lovenox Dose C-G Actual Body Wt Est Clcr = ml/min C-G Lean Body Wt Est Clcr = ml/min GlobalRPH Link The Lovenox dose above has been reviewed for Appropriateness based on pt specific criteria and disease state(s) Initials: Date: Bridge Instruction Sent to: Bridge Instructions Approved by Sent Via Epic Name or Type of Procedure Date Warfarin Dose INR PLT QOD X 14 days Total Initials and Comments Right Click & Insert Row for Today'sDocumentation. 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 Currently chest pain free; Talked with cardiology - said no need for treatment is patient is treatment free Plan: Continue to monitor Ulcer of perianal area 07/03/2012 Overview: Present on admission Dieulafoy lesion (hemorrhagic) of intestine 06/0905/05/2021 Overview: Hx: Seen on EGD 06/30 - lesion clipped Had been on multiple NSAIDS; Steroids; previously for pericarditis. 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 Plan: Monitor H&H Q8H, transfuse as necessary, keep Hb>8 Consult IR for further intervention Protonix gtt for now, will switch to protonix 40mg bid when Hb is stable after 48-72 hours GI on board, appreciate their recs MSSA (methicillin susceptibl e Staphylococcus aureus) infection 07/03/2012 05/05/2021 Overview: Hx: MSSA infection of serosal fluids collection in L chest wall. S/P I/D on 06/19. On IV oxacillin till and then dc'ed on 06/23 with a 10 day course of Dicloxacillin. 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 Currently chest pain free; However, there is a high chance of recurrence since treatment has been on hold. Giving him steroid might actually put him at more risk of re bleeding. NSAID'S not an option for now. Plan: Consider Colchicine. If patient is to be restarted on AC, Colchicine has to be held given interaction with Coumadin. 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 DVT prophylaxis 07/03/2012 05/05/2021 Overview: Plan: Will hold off on Hep given recent GI bleed IPC's Nephrolithiasis 05/11/2012 05/09/2022 Hyperoxaluria 05/11/2012 12/07/2015 Rhinitis 10/05/2011 05/09/2022 Lattice degeneration of peripheral retina 201105/05/2021 skilled nursing (current) use of anticoagulants 201005/05/2021 Overview: PCC referring MD: Michael Mcmahan Anticoagulation management encounter 2010 05/05/2021 Other and unspecified postsurgical nonabsorption 08/25/2010 05/05/2021 Wound check, abscess 08/25/2010 05/05/2021 Hypokalemia 06/16/2010 05/05/2021 Overview: Borderline K+ at 3.6 today. Discontinue own potassium. Initiate K-dur 40meq daily. Obtain K in the AM/ 06/17: K+ 4.1 today Will continue K-Dur 40 meq on discharge. // Hypomagnesemia 06/15/2010 05/05/2021 Overview: 06/15/2010: Magnesium 1.8 this am. Magnesium 400mg daily ordered. Mag draw in am06/16: Magnesium 1.9 today. Mag OX increased to 400mg BID. Mag draw in AM. 06/17: Magnesium 2.0 today. Will continue Mag OX 400mg BID at home. Mag blood draw on Monday. // Retinal detachment with retinal defect, unspecif ied 06/14/2010 05/05/2021 Anticoagulation monitoring, INR range 2-3 201009/28/2012 Overview: ECG on admission: AF, [id number] on tele w/ pt in bed QT/QTc: 380/460 Previous AAD: N/A Coumadin dose: 7.5mg daily INRs: see epic, therapeutic since 05/20/10. Pt goes to [facility]. CrCl:greater than 100 Will start Tikosyn per Dr Courtney Grady Plan for DCC if the pt remains in AF, IC in chart. 06/15: INR 2.9 today. Continue on Coumadin with INR check in the AM. 06/16: INR 3.1 today. Continue Coumadin. INR in the am06/17: INR 3.4 today. Instructed patient to take 5mg today. INR check on Monday at [place]// . Pulmonary embolism 03/01/2010 05/05/2021 DVT (deep venous thrombosis) 01/12/2010 Atrial fibrillation 11/03/2009 11/05/2018 Overview: Hx: Persistent A.fib s/p Mini MAZE 05/2012. Currently in sinus. Had previously failed NATHAN's and DCC x5 Assessment: Currently in Sinus On amiodarone 300mg daily for 4 weeks from D/C can now switch to 200mg daily Plan: 200 mg daily amiodarone CHADS2 score of 1, with the h/o GI bleed will hold off on anticoagulation Morbid obesity 10/14/2009 02/20/2014 Overview: s/p Gastric bypass surgery Encounter for dietary counseling and surveillanc e 10/14/2009 05/05/2021 Other specified disease of sebaceous glands 07/200805/05/2021 Corns and callosities 06/11/2008 05/05/2021 Contusion of foot 06/11/2008 05/05/2021 Torn rotator cuff 05/09/2022 documented as of this encounter (statuses as of 06/30/2022) [facility] History of Past illness Narrative* Problem Noted Date Resolved Date Syncope 11/02/2018 05/05/2021 Chest pain 05/03/2018 05/05/2021 Left lower quadrant pain 05/03/2018 022 Left leg swelling 05/03/2018 05/05/2021 Microhematuria 01/19/2018 05/09/2022 Overview: Added automatically from request for surgery [id number] Presence of intraocular lens 11/14/2017 Bilateral posterior capsular opacification 11/1405/05/2021 History of detached retina repair 11/14/2017 05/05/2021 Strabismus 11/14/2017 05/05/2021 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 Continue Lovenox until INR > 2.0 or patient's INR Warfarin Indication Range Pharmacy Previous Dose Scr - If > 2mo ago, retest For calculation of Clcr & Lovenox dose Creatinine (mg/dL) Date Value 01/31/2015 1.03 Height Last 1 Encounter Ht Readings: Date: Ht: 02/06/2015 185.4 cm (6' 1) Weight Last 1 Encounter Wt Readings: Date: Wt: 02/06/2015 107.049 kg (236 lb) Lovenox Dose C-G Actual Body Wt Est Clcr = ml/min C-G Lean Body Wt Est Clcr = ml/min GlobalRPH Link The Lovenox dose above has been reviewed for Appropriateness based on pt specific criteria and disease state(s) Initials: Date: Bridge Instruction Sent to: Bridge Instructions Approved by Sent Via Epic Name or Type of Procedure Date Warfarin Dose INR PLT QOD X 14 days Total Initials and Comments Right Click & Insert Row for Today'sDocumentation. 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 Currently chest pain free; Talked with cardiology - said no need for treatment is patient is treatment free Plan: Continue to monitor Ulcer of perianal area 07/03/2012 Overview: Present on admission Dieulafoy lesion (hemorrhagic) of intestine 06/0905/05/2021 Overview: Hx: Seen on EGD 06/30 - lesion clipped Had been on multiple NSAIDS; Steroids; previously for pericarditis. 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 Plan: Monitor H&H Q8H, transfuse as necessary, keep Hb>8 Consult IR for further intervention Protonix gtt for now, will switch to protonix 40mg bid when Hb is stable after 48-72 hours GI on board, appreciate their recs MSSA (methicillin susceptibl e Staphylococcus aureus) infection 07/03/2012 05/05/2021 Overview: Hx: MSSA infection of serosal fluids collection in L chest wall. S/P I/D on 06/19. On IV oxacillin till and then dc'ed on 06/23 with a 10 day course of Dicloxacillin. 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 Currently chest pain free; However, there is a high chance of recurrence since treatment has been on hold. Giving him steroid might actually put him at more risk of re bleeding. NSAID'S not an option for now. Plan: Consider Colchicine. If patient is to be restarted on AC, Colchicine has to be held given interaction with Coumadin. 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 DVT prophylaxis 07/03/2012 05/05/2021 Overview: Plan: Will hold off on Hep given recent GI bleed IPC's Nephrolithiasis 05/11/2012 05/09/2022 Hyperoxaluria 05/11/2012 12/07/2015 Rhinitis 10/05/2011 05/09/2022 Lattice degeneration of peripheral retina 201105/05/2021 skilled nursing (current) use of anticoagulants 201005/05/2021 Overview: PCC referring MD: Michael Mcmahan Anticoagulation management encounter 2010 05/05/2021 Other and unspecified postsurgical nonabsorption 08/25/2010 05/05/2021 Wound check, abscess 08/25/2010 05/05/2021 Hypokalemia 06/16/2010 05/05/2021 Overview: Borderline K+ at 3.6 today. Discontinue own potassium. Initiate K-dur 40meq daily. Obtain K in the AM06/17: K+ 4.1 today Will continue K-Dur 40 meq on discharge. // Hypomagnesemia 06/15/2010 05/05/2021 Overview: 06/15/2010: Magnesium 1.8 this am. Magnesium 400mg daily ordered. Mag draw in am06/16: Magnesium 1.9 today. Mag OX increased to 400mg BID. Mag draw in AM. 06/17: Magnesium 2.0 today. Will continue Mag OX 400mg BID at home. Mag blood draw on Monday. // Retinal detachment with retinal defect, unspecif ied 06/14/2010 05/05/2021 Anticoagulation monitoring, INR range 2-3 201009/28/2012 Overview: ECG on admission: AF, [id number] on tele w/ pt in bed QT/QTc: 380/460 Previous AAD: N/A Coumadin dose: 7.5mg daily INRs: see epic, therapeutic since 05/20/10. Pt goes to [facility]. CrCl:greater than 100 Will start Tikosyn per Dr Courtney Grady Plan for DCC if the pt remains in AF, IC in chart. 06/15: INR 2.9 today. Continue on Coumadin with INR check in the AM. 06/16: INR 3.1 today. Continue Coumadin. INR in the am/06/17: INR 3.4 today. Instructed patient to take 5mg today. INR check on Monday at [place]// . Pulmonary embolism 03/01/2010 05/05/2021 DVT (deep venous thrombosis) 01/12/2010 Atrial fibrillation 11/03/2009 11/05/2018 Overview: Hx: Persistent A.fib s/p Mini MAZE 05/2012. Currently in sinus. Had previously failed NATHAN's and DCC x5 Assessment: Currently in Sinus On amiodarone 300mg daily for 4 weeks from D/C can now switch to 200mg daily Plan: 200 mg daily amiodarone CHADS2 score of 1, with the h/o GI bleed will hold off on anticoagulation Morbid obesity 10/14/2009 02/20/2014 Overview: s/p Gastric bypass surgery Encounter for dietary counseling and surveillanc e 10/14/2009 05/05/2021 Other specified disease of sebaceous glands 07/200805/05/2021 Corns and callosities 06/11/2008 05/05/2021 Contusion of foot 06/11/2008 05/05/2021 Torn rotator cuff 05/09/2022 documented as of this encounter (statuses as of 08/15/2022) [facility] History of Past illness Narrative* Problem Noted Date Resolved Date Syncope 11/02/2018 05/05/2021 Chest pain 05/03/2018 05/05/2021 Left lower quadrant pain 05/03/2018 022 Left leg swelling 05/03/2018 05/05/2021 Microhematuria 01/19/2018 05/09/2022 Overview: Added automatically from request for surgery [id number] Presence of intraocular lens 11/14/2017 Bilateral posterior capsular opacification 11/1405/05/2021 History of detached retina repair 11/14/2017 05/05/2021 Strabismus 11/14/2017 05/05/2021 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 Continue Lovenox until INR > 2.0 or patient's INR Warfarin Indication Range Pharmacy Previous Dose Scr - If > 2mo ago, retest For calculation of Clcr & Lovenox dose Creatinine (mg/dL) Date Value 01/31/2015 1.03 Height Last 1 Encounter Ht Readings: Date: Ht: 02/06/2015 185.4 cm (6' 1) Weight Last 1 Encounter Wt Readings: Date: Wt: 02/06/2015 107.049 kg (236 lb) Lovenox Dose C-G Actual Body Wt Est Clcr = ml/min C-G Lean Body Wt Est Clcr = ml/min GlobalRPH Link The Lovenox dose above has been reviewed for Appropriateness based on pt specific criteria and disease state(s) Initials: Date: Bridge Instruction Sent to: Bridge Instructions Approved by Sent Via Epic Name or Type of Procedure Date Warfarin Dose INR PLT QOD X 14 days Total Initials and Comments Right Click & Insert Row for Today'sDocumentation. 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 Currently chest pain free; Talked with cardiology - said no need for treatment is patient is treatment free Plan: Continue to monitor Ulcer of perianal area 07/03/2012 2 Overview: Present on admission Dieulafoy lesion (hemorrhagic) of intestine 06/0905/05/2021 Overview: Hx: Seen on EGD 06/30 - lesion clipped Had been on multiple NSAIDS; Steroids; previously for pericarditis. 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 Plan: Monitor H&H Q8H, transfuse as necessary, keep Hb>8 Consult IR for further intervention Protonix gtt for now, will switch to protonix 40mg bid when Hb is stable after 48-72 hours GI on board, appreciate their recs MSSA (methicillin susceptibl e Staphylococcus aureus) infection 07/03/2012 05/05/2021 Overview: Hx: MSSA infection of serosal fluids collection in L chest wall. S/P I/D on 06/19. On IV oxacillin till and then dc'ed on 06/23 with a 10 day course of Dicloxacillin. 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 Currently chest pain free; However, there is a high chance of recurrence since treatment has been on hold. Giving him steroid might actually put him at more risk of re bleeding. NSAID'S not an option for now. Plan: Consider Colchicine. If patient is to be restarted on AC, Colchicine has to be held given interaction with Coumadin. 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 DVT prophylaxis 07/03/2012 05/05/2021 Overview: Plan: Will hold off on Hep given recent GI bleed IPC's Nephrolithiasis 05/11/2012 05/09/2022 Hyperoxaluria 05/11/2012 12/07/2015 Rhinitis 10/05/2011 05/09/2022 Lattice degeneration of peripheral retina 201105/05/2021 skilled nursing (current) use of anticoagulants 201005/05/2021 Overview: PCC referring MD: Michael Mcmahan Anticoagulation management encounter 2010 05/05/2021 Other and unspecified postsurgical nonabsorption 08/25/2010 05/05/2021 Wound check, abscess 08/25/2010 05/05/2021 Hypokalemia 06/16/2010 05/05/2021 Overview: Borderline K+ at 3.6 today. Discontinue own potassium. Initiate K-dur 40meq daily. Obtain K in the AM06/17: K+ 4.1 today Will continue K-Dur 40 meq on discharge. // Hypomagnesemia 06/15/2010 05/05/2021 Overview: 06/15/2010: Magnesium 1.8 this am. Magnesium 400mg daily ordered. Mag draw in am06/16: Magnesium 1.9 today. Mag OX increased to 400mg BID. Mag draw in AM. 06/17: Magnesium 2.0 today. Will continue Mag OX 400mg BID at home. Mag blood draw on Monday. // Retinal detachment with retinal defect, unspecif ied 06/14/2010 05/05/2021 Anticoagulation monitoring, INR range 2-3 201009/28/2012 Overview: ECG on admission: AF, [id number] on tele w/ pt in bed QT/QTc: 380/460 Previous AAD: N/A Coumadin dose: 7.5mg daily INRs: see epic, therapeutic since 05/20/10. Pt goes to [facility]. CrCl:greater than 100 Will start Tikosyn per Dr Courtney Grady Plan for DCC if the pt remains in AF, IC in chart. 06/15: INR 2.9 today. Continue on Coumadin with INR check in the AM. 06/16: INR 3.1 today. Continue Coumadin. INR in the am// 06/17: INR 3.4 today. Instructed patient to take 5mg today. INR check on Monday at [facility]// . Pulmonary embolism 03/01/2010 05/05/2021 DVT (deep venous thrombosis) 01/12/2010 Atrial fibrillation 11/03/2009 11/05/2018 Overview: Hx: Persistent A.fib s/p Mini MAZE 05/2012. Currently in sinus. Had previously failed NATHAN's and DCC x5 Assessment: Currently in Sinus On amiodarone 300mg daily for 4 weeks from D/C can now switch to 200mg daily Plan: 200 mg daily amiodarone CHADS2 score of 1, with the h/o GI bleed will hold off on anticoagulation Morbid obesity 10/14/2009 02/20/2014 Overview: s/p Gastric bypass surgery Encounter for dietary counseling and surveillanc e 10/14/2009 05/05/2021 Other specified disease of sebaceous glands 07/200805/05/2021 Corns and callosities 06/11/2008 05/05/2021 Contusion of foot 06/11/2008 05/05/2021 Torn rotator cuff 05/09/2022 documented as of this encounter (statuses as of 09/29/2022) [facility] History of Past illness Narrative* Problem Noted Date Diagnosed Date Resolved Date Syncope 11/02/2018 05/05/2021 Chest pain 05/03/2018 05/05/2021 Left lower quadrant pain 05/03/2018 Left leg swelling 05/03/2018 05/05/2021 Microhematuria 01/19/2018 05/09/2022 Overview: Added automatically from request for surgery [id number] Presence of intraocular lens 11/14/2017 05/05/2021 Bilateral posterior capsular opacification 11/14/2017 05/05/2021 History of detached retina repair 11/14/2017 05/05/2021 Strabismus 11/14/2017 05/05/2021 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 Continue Lovenox until INR > 2.0 or patient's INR Warfarin Indication Range Pharmacy Previous Dose Scr - If > 2mo ago, retest For calculation of Clcr & Lovenox dose Creatinine (mg/dL) Date Value 01/31/2015 1.03 Height Last 1 Encounter Ht Readings: Date: Ht: 02/06/2015 185.4 cm (6' 1) Weight Last 1 Encounter Wt Readings: Date: Wt: 02/06/2015 107.049 kg (236 lb) Lovenox Dose C-G Actual Body Wt Est Clcr = ml/min C-G Lean Body Wt Est Clcr = ml/min GlobalRPH Link The Lovenox dose above has been reviewed for Appropriateness based on pt specific criteria and disease state(s) Initials: Date: Bridge Instruction Sent to: Bridge Instructions Approved by Sent Via Epic Name or Type of Procedure Date Warfarin Dose INR PLT QOD X 14 days Total Initials and Comments Right Click & Insert Row for Today'sDocumentation. 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 Currently chest pain free; Talked with cardiology - said no need for treatment is patient is treatment free Plan: Continue to monitor Ulcer of perianal area 07/03/201205/05 Overview: Present on admission Dieulafoy lesion (hemorrhagic) of intestine 07/03/2012 05/05/2021 Overview: Hx: Seen on EGD 06/30 - lesion clipped Had been on multiple NSAIDS; Steroids; previously for pericarditis. 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 Plan: Monitor H&H Q8H, transfuse as necessary, keep Hb>8 Consult IR for further intervention Protonix gtt for now, will switch to protonix 40mg bid when Hb is stable after 48-72 hours GI on board, appreciate their recs MSSA (methicillin susceptibl e Staphylococcus aureus) infection 07/03/2012 05/05/2021 Overview: Hx: MSSA infection of serosal fluids collection in L chest wall. S/P I/D on 06/19. On IV oxacillin till and then dc'ed on 06/23 with a 10 day course of Dicloxacillin. 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 Currently chest pain free; However, there is a high chance of recurrence since treatment has been on hold. Giving him steroid might actually put him at more risk of re bleeding. NSAID'S not an option for now. Plan: Consider Colchicine. If patient is to be restarted on AC, Colchicine has to be held given interaction with Coumadin. 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 DVT prophylaxis 07/03/2012 05/05/2021 Overview: Plan: Will hold off on Hep given recent GI bleed IPC's Nephrolithiasis 05/11/2012 05/09/2022 Hyperoxaluria 05/11/2012 12/07/2015 Rhinitis 10/05/2011 05/09/2022 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 05/05/2021 skilled nursing (current) use of anticoagulants 03/18/2011 05/05/2021 Overview: PCC referring MD: Michael Mcmahan Anticoagulation management encounter 2010 05/05/2021 Other and unspecified postsu rgical nonabsorption 08/25/2010 05/05/2021 Wound check, abscess 08/25/201005/05/ 022 Hypokalemia 06/16/2010 05/05/2021 Overview: Borderline K+ at 3.6 today. Discontinue own potassium. Initiate K-dur 40meq daily. Obtain K in the AM06/17: K+ 4.1 today Will continue K-Dur 40 meq on discharge. // Hypomagnesemia 06/15/2010 05/05/2021 Overview: 06/15/2010: Magnesium 1.8 this am. Magnesium 400mg daily ordered. Mag draw in am06/16: Magnesium 1.9 today. Mag OX increased to 400mg BID. Mag draw in AM. 06/17: Magnesium 2.0 today. Will continue Mag OX 400mg BID at home. Mag blood draw on Monday. // Retinal detachment with reti nal defect, unspecified 06/14/2010 05/05/2021 Anticoagulation monitoring, INR range 2-3 06/14/2010 09/28/2012 Overview: ECG on admission: AF, [id number] on tele w/ pt in bed QT/QTc: 380/460 Previous AAD: N/A Coumadin dose: 7.5mg daily INRs: see epic, therapeutic since 05/20/10. Pt goes to [facility]. CrCl:greater than 100 Will start Tikosyn per Dr Courtney Grady Plan for DCC if the pt remains in AF, IC in chart. 06/15: INR 2.9 today. Continue on Coumadin with INR check in the AM. 06/16: INR 3.1 today. Continue Coumadin. INR in the am// 06/17: INR 3.4 today. Instructed patient to take 5mg today. INR check on Monday at [facility]// . Pulmonary embolism 03/01/2010 DVT (deep venous thrombosis) 01/12/2010 05/05/2021 Atrial fibrillation 11/03/2009 11/06/19 19 Overview: Hx: Persistent A.fib s/p Mini MAZE 05/2012. Currently in sinus. Had previously failed NATHAN's and DCC x5 Assessment: Currently in Sinus On amiodarone 300mg daily for 4 weeks from D/C can now switch to 200mg daily Plan: 200 mg daily amiodarone CHADS2 score of 1, with the h/o GI bleed will hold off on anticoagulation Morbid obesity 10/14/2009 02/20/2014 Overview: s/p Gastric bypass surgery Encounter for ziggy [place] and surveillance 10/14/2009 05/05/2021 Other specified disease of sebaceous glands 06/11/2008 05/05/2021 Corns and callosities 06/11/20082021 Contusion of foot 06/11/2008 05/05/2021 Torn rotator cuff 05/09/2022 documented as of this encounter (statuses as of 11/09/2022) [facility] History of Past illness Narrative* Problem Noted Date Diagnosed Date Resolved Date Syncope 11/02/2018 05/05/2021 Chest pain 05/03/2018 05/05/2021 Left lower quadrant pain 05/03/2018 Left leg swelling 05/03/2018 05/05/2021 Microhematuria 01/19/2018 05/09/2022 Overview: Added automatically from request for surgery [id number] Presence of intraocular lens 11/14/2017 05/05/2021 Bilateral posterior capsular opacification 11/14/2017 05/05/2021 History of detached retina repair 11/14/2017 05/05/2021 Strabismus 11/14/2017 05/05/2021 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 Continue Lovenox until INR > 2.0 or patient's INR Warfarin Indication Range Pharmacy Previous Dose Scr - If > 2mo ago, retest For calculation of Clcr & Lovenox dose Creatinine (mg/dL) Date Value 01/31/2015 1.03 Height Last 1 Encounter Ht Readings: Date: Ht: 02/06/2015 185.4 cm (6' 1) Weight Last 1 Encounter Wt Readings: Date: Wt: 02/06/2015 107.049 kg (236 lb) Lovenox Dose C-G Actual Body Wt Est Clcr = ml/min C-G Lean Body Wt Est Clcr = ml/min GlobalRPH Link The Lovenox dose above has been reviewed for Appropriateness based on pt specific criteria and disease state(s) Initials: Date: Bridge Instruction Sent to: Bridge Instructions Approved by Sent Via Epic Name or Type of Procedure Date Warfarin Dose INR PLT QOD X 14 days Total Initials and Comments Right Click & Insert Row for Today'sDocumentation. 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 Currently chest pain free; Talked with cardiology - said no need for treatment is patient is treatment free Plan: Continue to monitor Ulcer of perianal area 07/03/201205/05 Overview: Present on admission Dieulafoy lesion (hemorrhagic) of intestine 07/03/2012 05/05/2021 Overview: Hx: Seen on EGD 06/30 - lesion clipped Had been on multiple NSAIDS; Steroids; previously for pericarditis. 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 Plan: Monitor H&H Q8H, transfuse as necessary, keep Hb>8 Consult IR for further intervention Protonix gtt for now, will switch to protonix 40mg bid when Hb is stable after 48-72 hours GI on board, appreciate their recs MSSA (methicillin susceptibl e Staphylococcus aureus) infection 07/03/2012 05/05/2021 Overview: Hx: MSSA infection of serosal fluids collection in L chest wall. S/P I/D on 06/19. On IV oxacillin till and then dc'ed on 06/23 with a 10 day course of Dicloxacillin. 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 Currently chest pain free; However, there is a high chance of recurrence since treatment has been on hold. Giving him steroid might actually put him at more risk of re bleeding. NSAID'S not an option for now. Plan: Consider Colchicine. If patient is to be restarted on AC, Colchicine has to be held given interaction with Coumadin. 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 DVT prophylaxis 07/03/2012 05/05/2021 Overview: Plan: Will hold off on Hep given recent GI bleed IPC's Nephrolithiasis 05/11/2012 05/09/2022 Hyperoxaluria 05/11/2012 12/07/2015 Rhinitis 10/05/2011 05/09/2022 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 05/05/2021 skilled nursing (current) use of anticoagulants 03/18/2011 05/05/2021 Overview: PCC referring MD: Michael Mcmahan Anticoagulation management encounter 2010 05/05/2021 Other and unspecified postsu rgical nonabsorption 08/25/2010 05/05/2021 Wound check, abscess 08/25/2010 022 Hypokalemia 06/16/2010 05/05/2021 Overview: Borderline K+ at 3.6 today. Discontinue own potassium. Initiate K-dur 40meq daily. Obtain K in the AM06/17: K+ 4.1 today Will continue K-Dur 40 meq on discharge. // Hypomagnesemia 06/15/2010 05/05/2021 Overview: 06/15/2010: Magnesium 1.8 this am. Magnesium 400mg daily ordered. Mag draw in am06/16: Magnesium 1.9 today. Mag OX increased to 400mg BID. Mag draw in AM. 06/17: Magnesium 2.0 today. Will continue Mag OX 400mg BID at home. Mag blood draw on Monday. // Retinal detachment with reti nal defect, unspecified 06/14/2010 05/05/2021 Anticoagulation monitoring, INR range 2-3 06/14/2010 09/28/2012 Overview: ECG on admission: AF, [id number] on tele w/ pt in bed QT/QTc: 380/460 Previous AAD: N/A Coumadin dose: 7.5mg daily INRs: see epic, therapeutic since 05/20/10. [facility]. CrCl:greater than 100 Will start Tikosyn per Dr Courtney Grady Plan for DCC if the pt remains in AF, IC in chart. 06/15: INR 2.9 today. Continue on Coumadin with INR check in the AM. 06/16: INR 3.1 today. Continue Coumadin. INR in the am// 06/17: INR 3.4 today. Instructed patient to take 5mg today. INR check on Monday at [facility]// . Pulmonary embolism 03/01/2010 DVT (deep venous thrombosis) 01/12/2010 05/05/2021 Atrial fibrillation 11/03/2009 11/06/19 19 Overview: Hx: Persistent A.fib s/p Mini MAZE 05/2012. Currently in sinus. Had previously failed NATHAN's and DCC x5 Assessment: Currently in Sinus On amiodarone 300mg daily for 4 weeks from D/C can now switch to 200mg daily Plan: 200 mg daily amiodarone CHADS2 score of 1, with the h/o GI bleed will hold off on anticoagulation Morbid obesity 10/14/2009 02/20/2014 Overview: s/p Gastric bypass surgery Encounter for ziggy [place] and surveillance 10/14/2009 05/05/2021 Other specified disease of sebaceous glands 06/11/2008 05/05/2021 Corns and callosities 06/11/20082021 Contusion of foot 06/11/2008 05/05/2021 Torn rotator cuff 05/09/2022 documented as of this encounter (statuses as of 11/19/2022) [facility] History of Past illness Narrative* Problem Noted Date Diagnosed Date Resolved Date Syncope 11/02/2018 05/05/2021 Chest pain 05/03/2018 05/05/2021 Left lower quadrant pain 05/03/2018 Left leg swelling 05/03/2018 05/05/2021 Microhematuria 01/19/2018 05/09/2022 Overview: Added automatically from request for surgery [id number] Presence of intraocular lens 11/14/2017 05/05/2021 Bilateral posterior capsular opacification 11/14/2017 05/05/2021 History of detached retina repair 11/14/2017 05/05/2021 Strabismus 11/14/2017 05/05/2021 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 Continue Lovenox until INR > 2.0 or patient's INR Warfarin Indication Range Pharmacy Previous Dose Scr - If > 2mo ago, retest For calculation of Clcr & Lovenox dose Creatinine (mg/dL) Date Value 01/31/2015 1.03 Height Last 1 Encounter Ht Readings: Date: Ht: 02/06/2015 185.4 cm (6' 1) Weight Last 1 Encounter Wt Readings: Date: Wt: 02/06/2015 107.049 kg (236 lb) Lovenox Dose C-G Actual Body Wt Est Clcr = ml/min C-G Lean Body Wt Est Clcr = ml/min GlobalRPH Link The Lovenox dose above has been reviewed for Appropriateness based on pt specific criteria and disease state(s) Initials: Date: Bridge Instruction Sent to: Bridge Instructions Approved by Sent Via [employer] Name or Type of Procedure Date Warfarin Dose INR PLT QOD X 14 days Total Initials and Comments Right Click & Insert Row for Today'sDocumentation. 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 Currently chest pain free; Talked with cardiology - said no need for treatment is patient is treatment free Plan: Continue to monitor Ulcer of perianal area 07/03/201205/05 Overview: Present on admission Dieulafoy lesion (hemorrhagic) of intestine 07/03/2012 05/05/2021 Overview: Hx: Seen on EGD 06/30 - lesion clipped Had been on multiple NSAIDS; Steroids; previously for pericarditis. 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 Plan: Monitor H&H Q8H, transfuse as necessary, keep Hb>8 Consult IR for further intervention Protonix gtt for now, will switch to protonix 40mg bid when Hb is stable after 48-72 hours GI on board, appreciate their recs MSSA (methicillin susceptibl e Staphylococcus aureus) infection 07/03/2012 05/05/2021 Overview: Hx: MSSA infection of serosal fluids collection in L chest wall. S/P I/D on 06/19. On IV oxacillin till and then dc'ed on 06/23 with a 10 day course of Dicloxacillin. 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 Currently chest pain free; However, there is a high chance of recurrence since treatment has been on hold. Giving him steroid might actually put him at more risk of re bleeding. NSAID'S not an option for now. Plan: Consider Colchicine. If patient is to be restarted on AC, Colchicine has to be held given interaction with Coumadin. 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 DVT prophylaxis 07/03/2012 05/05/2021 Overview: Plan: Will hold off on Hep given recent GI bleed IPC's Nephrolithiasis 05/11/2012 05/09/2022 Hyperoxaluria 05/11/2012 12/07/2015 Rhinitis 10/05/2011 05/09/2022 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 05/05/2021 skilled nursing (current) use of anticoagulants 03/18/2011 05/05/2021 Overview: PCC referring MD: Michael Mcmahan Anticoagulation management encounter 2010 05/05/2021 Other and unspecified postsu rgical nonabsorption 08/25/2010 05/05/2021 Wound check, abscess 08/25/2010 022 Hypokalemia 06/16/2010 05/05/2021 Overview: Borderline K+ at 3.6 today. Discontinue own potassium. Initiate K-dur 40meq daily. Obtain K in the AM06/17: K+ 4.1 today Will continue K-Dur 40 meq on discharge. // Hypomagnesemia 06/15/2010 05/05/2021 Overview: 06/15/2010: Magnesium 1.8 this am. Magnesium 400mg daily ordered. Mag draw in am06/16: Magnesium 1.9 today. Mag OX increased to 400mg BID. Mag draw in AM. 06/17: Magnesium 2.0 today. Will continue Mag OX 400mg BID at home. Mag blood draw on Monday. // Retinal detachment with reti nal defect, unspecified 06/14/2010 05/05/2021 Anticoagulation monitoring, INR range 2-3 06/14/2010 09/28/2012 Overview: ECG on admission: AF, [id number] on tele w/ pt in bed QT/QTc: 380/460 Previous AAD: N/A Coumadin dose: 7.5mg daily INRs: see epic, therapeutic since 05/20/10. [facility]. CrCl:greater than 100 Will start Tikosyn per Dr Courtney Grady Plan for DCC if the pt remains in AF, IC in chart. 06/15: INR 2.9 today. Continue on Coumadin with INR check in the AM. 06/16: INR 3.1 today. Continue Coumadin. INR in the am// 06/17: INR 3.4 today. Instructed patient to take 5mg today. INR check on Monday at [place]// . Pulmonary embolism 03/01/2010 DVT (deep venous thrombosis) 01/12/2010 05/05/2021 Atrial fibrillation 11/03/2009 11/06/19 19 Overview: Hx: Persistent A.fib s/p Mini MAZE 05/2012. Currently in sinus. Had previously failed NATHAN's and DCC x5 Assessment: Currently in Sinus On amiodarone 300mg daily for 4 weeks from D/C can now switch to 200mg daily Plan: 200 mg daily amiodarone CHADS2 score of 1, with the h/o GI bleed will hold off on anticoagulation Morbid obesity 10/14/2009 02/20/2014 Overview: s/p Gastric bypass surgery Encounter for dietary counse ling and surveillance 10/14/2009 05/05/2021 Other specified disease of sebaceous glands 06/11/2008 05/05/2021 Corns and callosities 06/11/20082021 Contusion of foot 06/11/2008 05/05/2021 Torn rotator cuff 05/09/2022 documented as of this encounter (statuses as of 11/23/2022) [facility] History of Past illness Narrative* Problem Noted Date Diagnosed Date Resolved Date Syncope 11/02/2018 05/05/2021 Chest pain 05/03/2018 05/05/2021 Left lower quadrant pain 05/03/2018 Left leg swelling 05/03/2018 05/05/2021 Microhematuria 01/19/2018 05/09/2022 Overview: Added automatically from request for surgery [id number] Presence of intraocular lens 11/14/2017 05/05/2021 Bilateral posterior capsular opacification 11/14/2017 05/05/2021 History of detached retina repair 11/14/2017 05/05/2021 Strabismus 11/14/2017 05/05/2021 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 Continue Lovenox until INR > 2.0 or patient's INR Warfarin Indication Range Pharmacy Previous Dose Scr - If > 2mo ago, retest For calculation of Clcr & Lovenox dose Creatinine (mg/dL) Date Value 01/31/2015 1.03 Height Last 1 Encounter Ht Readings: Date: Ht: 02/06/2015 185.4 cm (6' 1) Weight Last 1 Encounter Wt Readings: Date: Wt: 02/06/2015 107.049 kg (236 lb) Lovenox Dose C-G Actual Body Wt Est Clcr = ml/min C-G Lean Body Wt Est Clcr = ml/min GlobalRPH Link The Lovenox dose above has been reviewed for Appropriateness based on pt specific criteria and disease state(s) Initials: Date: Bridge Instruction Sent to: Bridge Instructions Approved by Sent Via [employer] Name or Type of Procedure Date Warfarin Dose INR PLT QOD X 14 days Total Initials and Comments Right Click & Insert Row for Today'sDocumentation. 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 Currently chest pain free; Talked with cardiology - said no need for treatment is patient is treatment free Plan: Continue to monitor Ulcer of perianal area 07/03/201205/05 Overview: Present on admission Dieulafoy lesion (hemorrhagic) of intestine 07/03/2012 05/05/2021 Overview: Hx: Seen on EGD 06/30 - lesion clipped Had been on multiple NSAIDS; Steroids; previously for pericarditis. 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 Plan: Monitor H&H Q8H, transfuse as necessary, keep Hb>8 Consult IR for further intervention Protonix gtt for now, will switch to protonix 40mg bid when Hb is stable after 48-72 hours GI on board, appreciate their recs MSSA (methicillin susceptibl e Staphylococcus aureus) infection 07/03/2012 05/05/2021 Overview: Hx: MSSA infection of serosal fluids collection in L chest wall. S/P I/D on 06/19. On IV oxacillin till and then dc'ed on 06/23 with a 10 day course of Dicloxacillin. 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 Currently chest pain free; However, there is a high chance of recurrence since treatment has been on hold. Giving him steroid might actually put him at more risk of re bleeding. NSAID'S not an option for now. Plan: Consider Colchicine. If patient is to be restarted on AC, Colchicine has to be held given interaction with Coumadin. 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 DVT prophylaxis 07/03/2012 05/05/2021 Overview: Plan: Will hold off on Hep given recent GI bleed IPC's Nephrolithiasis 05/11/2012 05/09/2022 Hyperoxaluria 05/11/2012 12/07/2015 Rhinitis 10/05/2011 05/09/2022 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 05/05/2021 skilled nursing (current) use of anticoagulants 03/18/2011 05/05/2021 Overview: PCC referring MD: Michael Mcmahan Anticoagulation management encounter 2010 05/05/2021 Other and unspecified postsu rgical nonabsorption 08/25/2010 05/05/2021 Wound check, abscess 08/25/2010 022 Hypokalemia 06/16/2010 05/05/2021 Overview: Borderline K+ at 3.6 today. Discontinue own potassium. Initiate K-dur 40meq daily. Obtain K in the AM06/17: K+ 4.1 today Will continue K-Dur 40 meq on discharge. // Hypomagnesemia 06/15/2010 05/05/2021 Overview: 06/15/2010: Magnesium 1.8 this am. Magnesium 400mg daily ordered. Mag draw in am06/16: Magnesium 1.9 today. Mag OX increased to 400mg BID. Mag draw in AM. 06/17: Magnesium 2.0 today. Will continue Mag OX 400mg BID at home. Mag blood draw on Monday. // Retinal detachment with reti nal defect, unspecified 06/14/2010 05/05/2021 Anticoagulation monitoring, INR range 2-3 06/14/2010 09/28/2012 Overview: ECG on admission: AF, [id number] on tele w/ pt in bed QT/QTc: 380/460 Previous AAD: N/A Coumadin dose: 7.5mg daily INRs: see epic, therapeutic since 05/20/10. Pt goes to [facility]. CrCl:greater than 100 Will start Tikosyn per Dr Courtney Grady Plan for DCC if the pt remains in AF, IC in chart. 06/15: INR 2.9 today. Continue on Coumadin with INR check in the AM. 06/16: INR 3.1 today. Continue Coumadin. INR in the am// 06/17: INR 3.4 today. Instructed patient to take 5mg today. INR check on Monday at [place]// . Pulmonary embolism 03/01/2010 2 DVT (deep venous thrombosis) 01/12/2010 05/05/2021 Atrial fibrillation 11/03/2009 11/06/19 19 Overview: Hx: Persistent A.fib s/p Mini MAZE 05/2012. Currently in sinus. Had previously failed NATHAN's and DCC x5 Assessment: Currently in Sinus On amiodarone 300mg daily for 4 weeks from D/C can now switch to 200mg daily Plan: 200 mg daily amiodarone CHADS2 score of 1, with the h/o GI bleed will hold off on anticoagulation Morbid obesity 10/14/2009 02/20/2014 Overview: s/p Gastric bypass surgery Encounter for dietary counse ling and surveillance 10/14/2009 05/05/2021 Other specified disease of sebaceous glands 06/11/2008 05/05/2021 Corns and callosities 06/11/20082021 Contusion of foot 06/11/2008 05/05/2021 Torn rotator cuff 05/09/2022 documented as of this encounter (statuses as of 11/23/2022) [facility] History of Past illness Narrative* Problem Noted Date Diagnosed Date Resolved Date Syncope 11/02/2018 05/05/2021 Chest pain 05/03/2018 05/05/2021 Left lower quadrant pain 05/03/2018 Left leg swelling 05/03/2018 05/05/2021 Microhematuria 01/19/2018 05/09/2022 Overview: Added automatically from request for surgery [id number] Presence of intraocular lens 11/14/2017 05/05/2021 Bilateral posterior capsular opacification 11/14/2017 05/05/2021 History of detached retina repair 11/14/2017 05/05/2021 Strabismus 11/14/2017 05/05/2021 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 Continue Lovenox until INR > 2.0 or patient's INR Warfarin Indication Range Pharmacy Previous Dose Scr - If > 2mo ago, retest For calculation of Clcr & Lovenox dose Creatinine (mg/dL) Date Value 01/31/2015 1.03 Height Last 1 Encounter Ht Readings: Date: Ht: 02/06/2015 185.4 cm (6' 1) Weight Last 1 Encounter Wt Readings: Date: Wt: 02/06/2015 107.049 kg (236 lb) Lovenox Dose C-G Actual Body Wt Est Clcr = ml/min C-G Lean Body Wt Est Clcr = ml/min GlobalRPH Link The Lovenox dose above has been reviewed for Appropriateness based on pt specific criteria and disease state(s) Initials: Date: Bridge Instruction Sent to: Bridge Instructions Approved by Sent Via [employer] Name or Type of Procedure Date Warfarin Dose INR PLT QOD X 14 days Total Initials and Comments Right Click & Insert Row for Today'sDocumentation. 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 Currently chest pain free; Talked with cardiology - said no need for treatment is patient is treatment free Plan: Continue to monitor Ulcer of perianal area 07/03/201205/05 Overview: Present on admission Dieulafoy lesion (hemorrhagic) of intestine 07/03/2012 05/05/2021 Overview: Hx: Seen on EGD 06/30 - lesion clipped Had been on multiple NSAIDS; Steroids; previously for pericarditis. 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 Plan: Monitor H&H Q8H, transfuse as necessary, keep Hb>8 Consult IR for further intervention Protonix gtt for now, will switch to protonix 40mg bid when Hb is stable after 48-72 hours GI on board, appreciate their recs MSSA (methicillin susceptibl e Staphylococcus aureus) infection 07/03/2012 05/05/2021 Overview: Hx: MSSA infection of serosal fluids collection in L chest wall. S/P I/D on 06/19. On IV oxacillin till and then dc'ed on 06/23 with a 10 day course of Dicloxacillin. 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 Currently chest pain free; However, there is a high chance of recurrence since treatment has been on hold. Giving him steroid might actually put him at more risk of re bleeding. NSAID'S not an option for now. Plan: Consider Colchicine. If patient is to be restarted on AC, Colchicine has to be held given interaction with Coumadin. 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 DVT prophylaxis 07/03/2012 05/05/2021 Overview: Plan: Will hold off on Hep given recent GI bleed IPC's Nephrolithiasis 05/11/2012 05/09/2022 Hyperoxaluria 05/11/2012 12/07/2015 Rhinitis 10/05/2011 05/09/2022 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 05/05/2021 skilled nursing (current) use of anticoagulants 03/18/2011 05/05/2021 Overview: PCC referring MD: Michael Mcmahan Anticoagulation management encounter 2010 05/05/2021 Other and unspecified postsu rgical nonabsorption 08/25/2010 05/05/2021 Wound check, abscess 08/25/201005/05/ 022 Hypokalemia 06/16/2010 05/05/2021 Overview: Borderline K+ at 3.6 today. Discontinue own potassium. Initiate K-dur 40meq daily. Obtain K in the AM06/17: K+ 4.1 today Will continue K-Dur 40 meq on discharge. // Hypomagnesemia 06/15/2010 05/05/2021 Overview: 06/15/2010: Magnesium 1.8 this am. Magnesium 400mg daily ordered. Mag draw in am06/16: Magnesium 1.9 today. Mag OX increased to 400mg BID. Mag draw in AM. 06/17: Magnesium 2.0 today. Will continue Mag OX 400mg BID at home. Mag blood draw on Monday. // Retinal detachment with reti nal defect, unspecified 06/14/2010 05/05/2021 Anticoagulation monitoring, INR range 2-3 06/14/2010 09/28/2012 Overview: ECG on admission: AF, [id number] on tele w/ pt in bed QT/QTc: 380/460 Previous AAD: N/A Coumadin dose: 7.5mg daily INRs: see epic, therapeutic since 05/20/10. Pt goes to [facility]. CrCl:greater than 100 Will start Tikosyn per Dr Courtney Grady Plan for DCC if the pt remains in AF, IC in chart. 06/15: INR 2.9 today. Continue on Coumadin with INR check in the AM. 06/16: INR 3.1 today. Continue Coumadin. INR in the am06/17: INR 3.4 today. Instructed patient to take 5mg today. INR check on Monday at [place]// . Pulmonary embolism 03/01/2010 2 DVT (deep venous thrombosis) 01/12/2010 05/05/2021 Atrial fibrillation 11/03/2009 11/06/19 19 Overview: Hx: Persistent A.fib s/p Mini MAZE 05/2012. Currently in sinus. Had previously failed NATHAN's and DCC x5 Assessment: Currently in Sinus On amiodarone 300mg daily for 4 weeks from D/C can now switch to 200mg daily Plan: 200 mg daily amiodarone CHADS2 score of 1, with the h/o GI bleed will hold off on anticoagulation Morbid obesity 10/14/2009 02/20/2014 Overview: s/p Gastric bypass surgery Encounter for ziggy [place] and surveillance 10/14/2009 05/05/2021 Other specified disease of sebaceous glands 06/11/2008 05/05/2021 Corns and callosities 06/11/20082021 Contusion of foot 06/11/2008 05/05/2021 Torn rotator cuff 05/09/2022 documented as of this encounter (statuses as of 12/10/2022) [facility] History of Past illness Narrative* Problem Noted Date Diagnosed Date Resolved Date Syncope 11/02/2018 05/05/2021 Chest pain 05/03/2018 05/05/2021 Left lower quadrant pain 05/03/2018 Left leg swelling 05/03/2018 05/05/2021 Microhematuria 01/19/2018 05/09/2022 Overview: Added automatically from request for surgery [id number] Presence of intraocular lens 11/14/2017 05/05/2021 Bilateral posterior capsular opacification 11/14/2017 05/05/2021 History of detached retina repair 11/14/2017 05/05/2021 Strabismus 11/14/2017 05/05/2021 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 Continue Lovenox until INR > 2.0 or patient's INR Warfarin Indication Range Pharmacy Previous Dose Scr - If > 2mo ago, retest For calculation of Clcr & Lovenox dose Creatinine (mg/dL) Date Value 01/31/2015 1.03 Height Last 1 Encounter Ht Readings: Date: Ht: 02/06/2015 185.4 cm (6' 1) Weight Last 1 Encounter Wt Readings: Date: Wt: 02/06/2015 107.049 kg (236 lb) Lovenox Dose C-G Actual Body Wt Est Clcr = ml/min C-G Lean Body Wt Est Clcr = ml/min GlobalRPH Link The Lovenox dose above has been reviewed for Appropriateness based on pt specific criteria and disease state(s) Initials: Date: Bridge Instruction Sent to: Bridge Instructions Approved by Sent Via [facility] Name or Type of Procedure Date Warfarin Dose INR PLT QOD X 14 days Total Initials and Comments Right Click & Insert Row for Today'sDocumentation. 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 Currently chest pain free; Talked with cardiology - said no need for treatment is patient is treatment free Plan: Continue to monitor Ulcer of perianal area 07/03/201205/05 Overview: Present on admission Dieulafoy lesion (hemorrhagic) of intestine 07/03/2012 05/05/2021 Overview: Hx: Seen on EGD 06/30 - lesion clipped Had been on multiple NSAIDS; Steroids; previously for pericarditis. 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 Plan: Monitor H&H Q8H, transfuse as necessary, keep Hb>8 Consult IR for further intervention Protonix gtt for now, will switch to protonix 40mg bid when Hb is stable after 48-72 hours GI on board, appreciate their recs MSSA (methicillin susceptibl e Staphylococcus aureus) infection 07/03/2012 05/05/2021 Overview: Hx: MSSA infection of serosal fluids collection in L chest wall. S/P I/D on 06/19. On IV oxacillin till and then dc'ed on 06/23 with a 10 day course of Dicloxacillin. 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 Currently chest pain free; However, there is a high chance of recurrence since treatment has been on hold. Giving him steroid might actually put him at more risk of re bleeding. NSAID'S not an option for now. Plan: Consider Colchicine. If patient is to be restarted on AC, Colchicine has to be held given interaction with Coumadin. 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 DVT prophylaxis 07/03/2012 05/05/2021 Overview: Plan: Will hold off on Hep given recent GI bleed IPC's Nephrolithiasis 05/11/2012 05/09/2022 Hyperoxaluria 05/11/2012 12/07/2015 Rhinitis 10/05/2011 05/09/2022 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 05/05/2021 skilled nursing (current) use of anticoagulants 03/18/2011 05/05/2021 Overview: PCC referring MD: Michael Mcmahan Anticoagulation management encounter 2010 05/05/2021 Other and unspecified postsu rgical nonabsorption 08/25/2010 05/05/2021 Wound check, abscess 08/25/201005/05/ 022 Hypokalemia 06/16/2010 05/05/2021 Overview: Borderline K+ at 3.6 today. Discontinue own potassium. Initiate K-dur 40meq daily. Obtain K in the AM06/17: K+ 4.1 today Will continue K-Dur 40 meq on discharge. // Hypomagnesemia 06/15/2010 05/05/2021 Overview: 06/15/2010: Magnesium 1.8 this am. Magnesium 400mg daily ordered. Mag draw in am06/16: Magnesium 1.9 today. Mag OX increased to 400mg BID. Mag draw in AM. 06/17: Magnesium 2.0 today. Will continue Mag OX 400mg BID at home. Mag blood draw on Monday. // Retinal detachment with reti nal defect, unspecified 06/14/2010 05/05/2021 Anticoagulation monitoring, INR range 2-3 06/14/2010 09/28/2012 Overview: ECG on admission: AF, [id number] on tele w/ pt in bed QT/QTc: 380/460 Previous AAD: N/A Coumadin dose: 7.5mg daily INRs: see epic, therapeutic since 05/20/10. [facility]. CrCl:greater than 100 Will start Tikosyn per Dr Courtney Grady Plan for DCC if the pt remains in AF, IC in chart. 06/15: INR 2.9 today. Continue on Coumadin with INR check in the AM. 06/16: INR 3.1 today. Continue Coumadin. INR in the am06/17: INR 3.4 today. Instructed patient to take 5mg today. INR check on Monday at [facility]// . Pulmonary embolism 03/01/2010 2 DVT (deep venous thrombosis) 01/12/2010 05/05/2021 Atrial fibrillation 11/03/2009 11/06/19 19 Overview: Hx: Persistent A.fib s/p Mini MAZE 05/2012. Currently in sinus. Had previously failed NATHAN's and DCC x5 Assessment: Currently in Sinus On amiodarone 300mg daily for 4 weeks from D/C can now switch to 200mg daily Plan: 200 mg daily amiodarone CHADS2 score of 1, with the h/o GI bleed will hold off on anticoagulation Morbid obesity 10/14/2009 02/20/2014 Overview: s/p Gastric bypass surgery Encounter for dietary counse ling and surveillance 10/14/2009 05/05/2021 Other specified disease of sebaceous glands 06/11/2008 05/05/2021 Corns and callosities 06/11/20082021 Contusion of foot 06/11/2008 05/05/2021 Torn rotator cuff 05/09/2022 documented as of this encounter (statuses as of 12/18/2022) [facility] History of Past illness Narrative* Problem Noted Date Diagnosed Date Resolved Date Syncope 11/02/2018 05/05/2021 Chest pain 05/03/2018 05/05/2021 Left lower quadrant pain 05/03/2018 Left leg swelling 05/03/2018 05/05/2021 Microhematuria 01/19/2018 05/09/2022 Overview: Added automatically from request for surgery [id number] Presence of intraocular lens 11/14/2017 05/05/2021 Bilateral posterior capsular opacification 11/14/2017 05/05/2021 History of detached retina repair 11/14/2017 05/05/2021 Strabismus 11/14/2017 05/05/2021 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 Continue Lovenox until INR > 2.0 or patient's INR Warfarin Indication Range Pharmacy Previous Dose Scr - If > 2mo ago, retest For calculation of Clcr & Lovenox dose Creatinine (mg/dL) Date Value 01/31/2015 1.03 Height Last 1 Encounter Ht Readings: Date: Ht: 02/06/2015 185.4 cm (6' 1) Weight Last 1 Encounter Wt Readings: Date: Wt: 02/06/2015 107.049 kg (236 lb) Lovenox Dose C-G Actual Body Wt Est Clcr = ml/min C-G Lean Body Wt Est Clcr = ml/min GlobalRPH Link The Lovenox dose above has been reviewed for Appropriateness based on pt specific criteria and disease state(s) Initials: Date: Bridge Instruction Sent to: Bridge Instructions Approved by Sent Via [employer] Name or Type of Procedure Date Warfarin Dose INR PLT QOD X 14 days Total Initials and Comments Right Click & Insert Row for Today'sDocumentation. 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 Currently chest pain free; Talked with cardiology - said no need for treatment is patient is treatment free Plan: Continue to monitor Ulcer of perianal area 07/03/201205/05 Overview: Present on admission Dieulafoy lesion (hemorrhagic) of intestine 07/03/2012 05/05/2021 Overview: Hx: Seen on EGD 06/30 - lesion clipped Had been on multiple NSAIDS; Steroids; previously for pericarditis. 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 Plan: Monitor H&H Q8H, transfuse as necessary, keep Hb>8 Consult IR for further intervention Protonix gtt for now, will switch to protonix 40mg bid when Hb is stable after 48-72 hours GI on board, appreciate their recs MSSA (methicillin susceptibl e Staphylococcus aureus) infection 07/03/2012 05/05/2021 Overview: Hx: MSSA infection of serosal fluids collection in L chest wall. S/P I/D on 06/19. On IV oxacillin till and then dc'ed on 06/23 with a 10 day course of Dicloxacillin. 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 Currently chest pain free; However, there is a high chance of recurrence since treatment has been on hold. Giving him steroid might actually put him at more risk of re bleeding. NSAID'S not an option for now. Plan: Consider Colchicine. If patient is to be restarted on AC, Colchicine has to be held given interaction with Coumadin. 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 DVT prophylaxis 07/03/2012 05/05/2021 Overview: Plan: Will hold off on Hep given recent GI bleed IPC's Nephrolithiasis 05/11/2012 05/09/2022 Hyperoxaluria 05/11/2012 12/07/2015 Rhinitis 10/05/2011 05/09/2022 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 05/05/2021 emt intermediate (current) use of anticoagulants 03/18/2011 05/05/2021 Overview: PCC referring MD: Michael Mcmahan Anticoagulation management encounter 2010 05/05/2021 Other and unspecified postsu rgical nonabsorption 08/25/2010 05/05/2021 Wound check, abscess 08/25/201005/05/ 022 Hypokalemia 06/16/2010 05/05/2021 Overview: Borderline K+ at 3.6 today. Discontinue own potassium. Initiate K-dur 40meq daily. Obtain K in the AM06/17: K+ 4.1 today Will continue K-Dur 40 meq on discharge. // Hypomagnesemia 06/15/2010 05/05/2021 Overview: 06/15/2010: Magnesium 1.8 this am. Magnesium 400mg daily ordered. Mag draw in am06/16: Magnesium 1.9 today. Mag OX increased to 400mg BID. Mag draw in AM. 06/17: Magnesium 2.0 today. Will continue Mag OX 400mg BID at home. Mag blood draw on Monday. // Retinal detachment with reti nal defect, unspecified 06/14/2010 05/05/2021 Anticoagulation monitoring, INR range 2-3 06/14/2010 09/28/2012 Overview: ECG on admission: AF, [id number] on tele w/ pt in bed QT/QTc: 380/460 Previous AAD: N/A Coumadin dose: 7.5mg daily INRs: see epic, therapeutic since 05/20/10. Pt goes to [facility]. CrCl:greater than 100 Will start Tikosyn per Dr Courtney Grady Plan for DCC if the pt remains in AF, IC in chart. 06/15: INR 2.9 today. Continue on Coumadin with INR check in the AM. 06/16: INR 3.1 today. Continue Coumadin. INR in the am/06/17: INR 3.4 today. Instructed patient to take 5mg today. INR check on Monday at [facility]// . Pulmonary embolism 03/01/2010 2 DVT (deep venous thrombosis) 01/12/2010 05/05/2021 Atrial fibrillation 11/03/2009 11/06/19 Overview: Hx: Persistent A.fib s/p Mini MAZE 05/2012. Currently in sinus. Had previously failed NATHAN's and DCC x5 Assessment: Currently in Sinus On amiodarone 300mg daily for 4 weeks from D/C can now switch to 200mg daily Plan: 200 mg daily amiodarone CHADS2 score of 1, with the h/o GI bleed will hold off on anticoagulation Morbid obesity 10/14/2009 02/20/2014 Overview: s/p Gastric bypass surgery Encounter for ziggy nadeem [place] and surveillance 10/14/2009 05/05/2021 Other specified disease of sebaceous glands 06/11/2008 05/05/2021 Corns and callosities 06/11/20082021 Contusion of foot 06/11/2008 05/05/2021 Torn rotator cuff 05/09/2022 documented as of this encounter (statuses as of 12/21/2022) [facility] History of Past illness Narrative* Problem Noted Date Diagnosed Date Resolved Date Syncope 11/02/2018 05/05/2021 Chest pain 05/03/2018 05/05/2021 Left lower quadrant pain 05/03/2018 Left leg swelling 05/03/2018 05/05/2021 Microhematuria 01/19/2018 05/09/2022 Overview: Added automatically from request for surgery [id number] Presence of intraocular lens 11/14/2017 05/05/2021 Bilateral posterior capsular opacification 11/14/2017 05/05/2021 History of detached retina repair 11/14/2017 05/05/2021 Strabismus 11/14/2017 05/05/2021 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 Continue Lovenox until INR > 2.0 or patient's INR Warfarin Indication Range Pharmacy Previous Dose Scr - If > 2mo ago, retest For calculation of Clcr & Lovenox dose Creatinine (mg/dL) Date Value 01/31/2015 1.03 Height Last 1 Encounter Ht Readings: Date: Ht: 02/06/2015 185.4 cm (6' 1) Weight Last 1 Encounter Wt Readings: Date: Wt: 02/06/2015 107.049 kg (236 lb) Lovenox Dose C-G Actual Body Wt Est Clcr = ml/min C-G Lean Body Wt Est Clcr = ml/min GlobalRPH Link The Lovenox dose above has been reviewed for Appropriateness based on pt specific criteria and disease state(s) Initials: Date: Bridge Instruction Sent to: Bridge Instructions Approved by Sent Via Epic Name or Type of Procedure Date Warfarin Dose INR PLT QOD X 14 days Total Initials and Comments Right Click & Insert Row for Today'sDocumentation. 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 Currently chest pain free; Talked with cardiology - said no need for treatment is patient is treatment free Plan: Continue to monitor Ulcer of perianal area 07/03/201205/05 Overview: Present on admission Dieulafoy lesion (hemorrhagic) of intestine 07/03/2012 05/05/2021 Overview: Hx: Seen on EGD 06/30 - lesion clipped Had been on multiple NSAIDS; Steroids; previously for pericarditis. 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 Plan: Monitor H&H Q8H, transfuse as necessary, keep Hb>8 Consult IR for further intervention Protonix gtt for now, will switch to protonix 40mg bid when Hb is stable after 48-72 hours GI on board, appreciate their recs MSSA (methicillin susceptibl e Staphylococcus aureus) infection 07/03/2012 05/05/2021 Overview: Hx: MSSA infection of serosal fluids collection in L chest wall. S/P I/D on 06/19. On IV oxacillin till and then dc'ed on 06/23 with a 10 day course of Dicloxacillin. 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 Currently chest pain free; However, there is a high chance of recurrence since treatment has been on hold. Giving him steroid might actually put him at more risk of re bleeding. NSAID'S not an option for now. Plan: Consider Colchicine. If patient is to be restarted on AC, Colchicine has to be held given interaction with Coumadin. 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 DVT prophylaxis 07/03/2012 05/05/2021 Overview: Plan: Will hold off on Hep given recent GI bleed IPC's Nephrolithiasis 05/11/2012 05/09/2022 Hyperoxaluria 05/11/2012 12/07/2015 Rhinitis 10/05/2011 05/09/2022 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 05/05/2021 skilled nursing (current) use of anticoagulants 03/18/2011 05/05/2021 Overview: PCC referring MD: Michael Mcmahan Anticoagulation management encounter 2010 05/05/2021 Other and unspecified postsu rgical nonabsorption 08/25/2010 05/05/2021 Wound check, abscess 08/25/2010 022 Hypokalemia 06/16/2010 05/05/2021 Overview: Borderline K+ at 3.6 today. Discontinue own potassium. Initiate K-dur 40meq daily. Obtain K in the AM// 03/10: K+ 4.1 today Will continue K-Dur 40 meq on discharge. // Hypomagnesemia 06/15/2010 05/05/2021 Overview: 06/15/2010: Magnesium 1.8 this am. Magnesium 400mg daily ordered. Mag draw in am06/16: Magnesium 1.9 today. Mag OX increased to 400mg BID. Mag draw in AM. 06/17: Magnesium 2.0 today. Will continue Mag OX 400mg BID at home. Mag blood draw on Monday. // Retinal detachment with reti nal defect, unspecified 06/14/2010 05/05/2021 Anticoagulation monitoring, INR range 2-3 06/14/2010 09/28/2012 Overview: ECG on admission: AF, [id number] on tele w/ pt in bed QT/QTc: 380/460 Previous AAD: N/A Coumadin dose: 7.5mg daily INRs: see epic, therapeutic since 05/20/10. [facility]. CrCl:greater than 100 Will start Tikosyn per Dr Courtney Grady Plan for DCC if the pt remains in AF, IC in chart. 06/15: INR 2.9 today. Continue on Coumadin with INR check in the AM. 06/16: INR 3.1 today. Continue Coumadin. INR in the am06/17: INR 3.4 today. Instructed patient to take 5mg today. INR check on Monday at [facility]// . Pulmonary embolism 03/01/2010 2 DVT (deep venous thrombosis) 01/12/2010 05/05/2021 Atrial fibrillation 11/03/2009 11/06/19 Overview: Hx: Persistent A.fib s/p Mini MAZE 05/2012. Currently in sinus. Had previously failed NATHAN's and DCC x5 Assessment: Currently in Sinus On amiodarone 300mg daily for 4 weeks from D/C can now switch to 200mg daily Plan: 200 mg daily amiodarone CHADS2 score of 1, with the h/o GI bleed will hold off on anticoagulation Morbid obesity 10/14/2009 02/20/2014 Overview: s/p Gastric bypass surgery Encounter for ziggy silver [place] and surveillance 10/14/2009 05/05/2021 Other specified disease of sebaceous glands 06/11/2008 05/05/2021 Corns and callosities 06/11/20082021 Contusion of foot 06/11/2008 05/05/2021 Torn rotator cuff 05/09/2022 documented as of this encounter (statuses as of 12/22/2022) [facility] History of Past illness Narrative* Problem Noted Date Diagnosed Date Resolved Date Syncope 11/02/2018 05/05/2021 Chest pain 05/03/2018 05/05/2021 Left lower quadrant pain 05/03/2018 Left leg swelling 05/03/2018 05/05/2021 Microhematuria 01/19/2018 05/09/2022 Overview: Added automatically from request for surgery [id number] Presence of intraocular lens 11/14/2017 05/05/2021 Bilateral posterior capsular opacification 11/14/2017 05/05/2021 History of detached retina repair 11/14/2017 05/05/2021 Strabismus 11/14/2017 05/05/2021 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 Continue Lovenox until INR > 2.0 or patient's INR Warfarin Indication Range Pharmacy Previous Dose Scr - If > 2mo ago, retest For calculation of Clcr & Lovenox dose Creatinine (mg/dL) Date Value 01/31/2015 1.03 Height Last 1 Encounter Ht Readings: Date: Ht: 02/06/2015 185.4 cm (6' 1) Weight Last 1 Encounter Wt Readings: Date: Wt: 02/06/2015 107.049 kg (236 lb) Lovenox Dose C-G Actual Body Wt Est Clcr = ml/min C-G Lean Body Wt Est Clcr = ml/min GlobalRPH Link The Lovenox dose above has been reviewed for Appropriateness based on pt specific criteria and disease state(s) Initials: Date: Bridge Instruction Sent to: Bridge Instructions Approved by Sent Via [employer] Name or Type of Procedure Date Warfarin Dose INR PLT QOD X 14 days Total Initials and Comments Right Click & Insert Row for Today'sDocumentation. 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 Currently chest pain free; Talked with cardiology - said no need for treatment is patient is treatment free Plan: Continue to monitor Ulcer of perianal area 07/03/201205/05 Overview: Present on admission Dieulafoy lesion (hemorrhagic) of intestine 07/03/2012 05/05/2021 Overview: Hx: Seen on EGD 06/30 - lesion clipped Had been on multiple NSAIDS; Steroids; previously for pericarditis. 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 Plan: Monitor H&H Q8H, transfuse as necessary, keep Hb>8 Consult IR for further intervention Protonix gtt for now, will switch to protonix 40mg bid when Hb is stable after 48-72 hours GI on board, appreciate their recs MSSA (methicillin susceptibl e Staphylococcus aureus) infection 07/03/2012 05/05/2021 Overview: Hx: MSSA infection of serosal fluids collection in L chest wall. S/P I/D on 06/19. On IV oxacillin till and then dc'ed on 06/23 with a 10 day course of Dicloxacillin. 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 Currently chest pain free; However, there is a high chance of recurrence since treatment has been on hold. Giving him steroid might actually put him at more risk of re bleeding. NSAID'S not an option for now. Plan: Consider Colchicine. If patient is to be restarted on AC, Colchicine has to be held given interaction with Coumadin. 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 DVT prophylaxis 07/03/2012 05/05/2021 Overview: Plan: Will hold off on Hep given recent GI bleed IPC's Nephrolithiasis 05/11/2012 05/09/2022 Hyperoxaluria 05/11/2012 12/07/2015 Rhinitis 10/05/2011 05/09/2022 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 05/05/2021 emt intermediate (current) use of anticoagulants 03/18/2011 05/05/2021 Overview: PCC referring MD: Michael Mcmahan Anticoagulation management encounter 2010 05/05/2021 Other and unspecified postsu rgical nonabsorption 08/25/2010 05/05/2021 Wound check, abscess 08/25/2010 022 Hypokalemia 06/16/2010 05/05/2021 Overview: Borderline K+ at 3.6 today. Discontinue own potassium. Initiate K-dur 40meq daily. Obtain K in the AM/ 06/17: K+ 4.1 today Will continue K-Dur 40 meq on discharge. // Hypomagnesemia 06/15/2010 05/05/2021 Overview: 06/15/2010: Magnesium 1.8 this am. Magnesium 400mg daily ordered. Mag draw in am06/16: Magnesium 1.9 today. Mag OX increased to 400mg BID. Mag draw in AM. 06/17: Magnesium 2.0 today. Will continue Mag OX 400mg BID at home. Mag blood draw on Monday. // Retinal detachment with reti nal defect, unspecified 06/14/2010 05/05/2021 Anticoagulation monitoring, INR range 2-3 06/14/2010 09/28/2012 Overview: ECG on admission: AF, [id number] on tele w/ pt in bed QT/QTc: 380/460 Previous AAD: N/A Coumadin dose: 7.5mg daily INRs: see epic, therapeutic since 05/20/10. Pt goes to [facility]. CrCl:greater than 100 Will start Tikosyn per Dr Courtney Grady Plan for DCC if the pt remains in AF, IC in chart. 06/15: INR 2.9 today. Continue on Coumadin with INR check in the AM. 06/16: INR 3.1 today. Continue Coumadin. INR in the am06/17: INR 3.4 today. Instructed patient to take 5mg today. INR check on Monday at [facility] . Pulmonary embolism 03/01/2010 2 DVT (deep venous thrombosis) 01/12/2010 05/05/2021 Atrial fibrillation 11/03/2009 11/06/19 Overview: Hx: Persistent A.fib s/p Mini MAZE 05/2012. Currently in sinus. Had previously failed NATHAN's and DCC x5 Assessment: Currently in Sinus On amiodarone 300mg daily for 4 weeks from D/C can now switch to 200mg daily Plan: 200 mg daily amiodarone CHADS2 score of 1, with the h/o GI bleed will hold off on anticoagulation Morbid obesity 10/14/2009 02/20/2014 Overview: s/p Gastric bypass surgery Encounter for ziggy [place] and surveillance 10/14/2009 05/05/2021 Other specified disease of sebaceous glands 06/11/2008 05/05/2021 Corns and callosities 06/11/20082021 Contusion of foot 06/11/2008 05/05/2021 Torn rotator cuff 05/09/2022 documented as of this encounter (statuses as of 12/22/2022) [facility] History of Past illness Narrative* Problem Noted Date Diagnosed Date Resolved Date Syncope 11/02/2018 05/05/2021 Chest pain 05/03/2018 05/05/2021 Left lower quadrant pain 05/03/2018 Left leg swelling 05/03/2018 05/05/2021 Microhematuria 01/19/2018 05/09/2022 Overview: Added automatically from request for surgery [id number] Presence of intraocular lens 11/14/2017 05/05/2021 Bilateral posterior capsular opacification 11/14/2017 05/05/2021 History of detached retina repair 11/14/2017 05/05/2021 Strabismus 11/14/2017 05/05/2021 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 Continue Lovenox until INR > 2.0 or patient's INR Warfarin Indication Range Pharmacy Previous Dose Scr - If > 2mo ago, retest For calculation of Clcr & Lovenox dose Creatinine (mg/dL) Date Value 01/31/2015 1.03 Height Last 1 Encounter Ht Readings: Date: Ht: 02/06/2015 185.4 cm (6' 1) Weight Last 1 Encounter Wt Readings: Date: Wt: 02/06/2015 107.049 kg (236 lb) Lovenox Dose C-G Actual Body Wt Est Clcr = ml/min C-G Lean Body Wt Est Clcr = ml/min GlobalRPH Link The Lovenox dose above has been reviewed for Appropriateness based on pt specific criteria and disease state(s) Initials: Date: Bridge Instruction Sent to: Bridge Instructions Approved by Sent Via Epic Name or Type of Procedure Date Warfarin Dose INR PLT QOD X 14 days Total Initials and Comments Right Click & Insert Row for Today'sDocumentation. 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 Currently chest pain free; Talked with cardiology - said no need for treatment is patient is treatment free Plan: Continue to monitor Ulcer of perianal area 07/03/201205/05 Overview: Present on admission Dieulafoy lesion (hemorrhagic) of intestine 07/03/2012 05/05/2021 Overview: Hx: Seen on EGD 06/30 - lesion clipped Had been on multiple NSAIDS; Steroids; previously for pericarditis. 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 Plan: Monitor H&H Q8H, transfuse as necessary, keep Hb>8 Consult IR for further intervention Protonix gtt for now, will switch to protonix 40mg bid when Hb is stable after 48-72 hours GI on board, appreciate their recs MSSA (methicillin susceptibl e Staphylococcus aureus) infection 07/03/2012 05/05/2021 Overview: Hx: MSSA infection of serosal fluids collection in L chest wall. S/P I/D on 06/19. On IV oxacillin till and then dc'ed on 06/23 with a 10 day course of Dicloxacillin. 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 Currently chest pain free; However, there is a high chance of recurrence since treatment has been on hold. Giving him steroid might actually put him at more risk of re bleeding. NSAID'S not an option for now. Plan: Consider Colchicine. If patient is to be restarted on AC, Colchicine has to be held given interaction with Coumadin. 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 DVT prophylaxis 07/03/2012 05/05/2021 Overview: Plan: Will hold off on Hep given recent GI bleed IPC's Nephrolithiasis 05/11/2012 05/09/2022 Hyperoxaluria 05/11/2012 12/07/2015 Rhinitis 10/05/2011 05/09/2022 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 05/05/2021 emt intermediate (current) use of anticoagulants 03/18/2011 05/05/2021 Overview: PCC referring MD: Michael Mcmahan Anticoagulation management encounter 2010 05/05/2021 Other and unspecified postsu rgical nonabsorption 08/25/2010 05/05/2021 Wound check, abscess 08/25/2010 022 Hypokalemia 06/16/2010 05/05/2021 Overview: Borderline K+ at 3.6 today. Discontinue own potassium. Initiate K-dur 40meq daily. Obtain K in the 06/17: K+ 4.1 today Will continue K-Dur 40 meq on discharge. // Hypomagnesemia 06/15/2010 05/05/2021 Overview: 06/15/2010: Magnesium 1.8 this am. Magnesium 400mg daily ordered. Mag draw in am06/16: Magnesium 1.9 today. Mag OX increased to 400mg BID. Mag draw in AM. 06/17: Magnesium 2.0 today. Will continue Mag OX 400mg BID at home. Mag blood draw on Monday. // Retinal detachment with reti nal defect, unspecified 06/14/2010 05/05/2021 Anticoagulation monitoring, INR range 2-3 06/14/2010 09/28/2012 Overview: ECG on admission: AF, [id number] on tele w/ pt in bed QT/QTc: 380/460 Previous AAD: N/A Coumadin dose: 7.5mg daily INRs: see epic, therapeutic since 05/20/10. Pt goes to [facility]. CrCl:greater than 100 Will start Tikosyn per Dr Courtney Grady Plan for DCC if the pt remains in AF, IC in chart. 06/15: INR 2.9 today. Continue on Coumadin with INR check in the AM. 06/16: INR 3.1 today. Continue Coumadin. INR in the am/06/17: INR 3.4 today. Instructed patient to take 5mg today. INR check on Monday at [facility] . Pulmonary embolism 03/01/2010 2 DVT (deep venous thrombosis) 01/12/2010 05/05/2021 Atrial fibrillation 11/03/2009 11/06/19 19 Overview: Hx: Persistent A.fib s/p Mini MAZE 05/2012. Currently in sinus. Had previously failed NATHAN's and DCC x5 Assessment: Currently in Sinus On amiodarone 300mg daily for 4 weeks from D/C can now switch to 200mg daily Plan: 200 mg daily amiodarone CHADS2 score of 1, with the h/o GI bleed will hold off on anticoagulation Morbid obesity 10/14/2009 02/20/2014 Overview: s/p Gastric bypass surgery Encounter for ziggy [place] and surveillance 10/14/2009 05/05/2021 Other specified disease of sebaceous glands 06/11/2008 05/05/2021 Corns and callosities 06/11/20082021 Contusion of foot 06/11/2008 05/05/2021 Torn rotator cuff 05/09/2022 documented as of this encounter (statuses as of 01/31/2023) [facility] History of Past illness Narrative* Problem Noted Date Diagnosed Date Resolved Date Syncope 11/02/2018 05/05/2021 Chest pain 05/03/2018 05/05/2021 Left lower quadrant pain 05/03/2018 Left leg swelling 05/03/2018 05/05/2021 Microhematuria 01/19/2018 05/09/2022 Overview: Added automatically from request for surgery [id number] Presence of intraocular lens 11/14/2017 05/05/2021 Bilateral posterior capsular opacification 11/14/2017 05/05/2021 History of detached retina repair 11/14/2017 05/05/2021 Strabismus 11/14/2017 05/05/2021 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 Continue Lovenox until INR > 2.0 or patient's INR Warfarin Indication Range Pharmacy Previous Dose Scr - If > 2mo ago, retest For calculation of Clcr & Lovenox dose Creatinine (mg/dL) Date Value 01/31/2015 1.03 Height Last 1 Encounter Ht Readings: Date: Ht: 02/06/2015 185.4 cm (6' 1) Weight Last 1 Encounter Wt Readings: Date: Wt: 02/06/2015 107.049 kg (236 lb) Lovenox Dose C-G Actual Body Wt Est Clcr = ml/min C-G Lean Body Wt Est Clcr = ml/min GlobalRPH Link The Lovenox dose above has been reviewed for Appropriateness based on pt specific criteria and disease state(s) Initials: Date: Bridge Instruction Sent to: Bridge Instructions Approved by Sent Via Epic Name or Type of Procedure Date Warfarin Dose INR PLT QOD X 14 days Total Initials and Comments Right Click & Insert Row for Today'sDocumentation. 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 Currently chest pain free; Talked with cardiology - said no need for treatment is patient is treatment free Plan: Continue to monitor Ulcer of perianal area 07/03/201205/05 Overview: Present on admission Dieulafoy lesion (hemorrhagic) of intestine 07/03/2012 05/05/2021 Overview: Hx: Seen on EGD 06/30 - lesion clipped Had been on multiple NSAIDS; Steroids; previously for pericarditis. 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 Plan: Monitor H&H Q8H, transfuse as necessary, keep Hb>8 Consult IR for further intervention Protonix gtt for now, will switch to protonix 40mg bid when Hb is stable after 48-72 hours GI on board, appreciate their recs MSSA (methicillin susceptibl e Staphylococcus aureus) infection 07/03/2012 05/05/2021 Overview: Hx: MSSA infection of serosal fluids collection in L chest wall. S/P I/D on 06/19. On IV oxacillin till and then dc'ed on 06/23 with a 10 day course of Dicloxacillin. 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 Currently chest pain free; However, there is a high chance of recurrence since treatment has been on hold. Giving him steroid might actually put him at more risk of re bleeding. NSAID'S not an option for now. Plan: Consider Colchicine. If patient is to be restarted on AC, Colchicine has to be held given interaction with Coumadin. 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 DVT prophylaxis 07/03/2012 05/05/2021 Overview: Plan: Will hold off on Hep given recent GI bleed IPC's Nephrolithiasis 05/11/2012 05/09/2022 Hyperoxaluria 05/11/2012 12/07/2015 Rhinitis 10/05/2011 05/09/2022 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 05/05/2021 skilled nursing (current) use of anticoagulants 03/18/2011 05/05/2021 Overview: PCC referring MD: Michael Mcmahan Anticoagulation management encounter 2010 05/05/2021 Other and unspecified postsu rgical nonabsorption 08/25/2010 05/05/2021 Wound check, abscess 08/25/2010 022 Hypokalemia 06/16/2010 05/05/2021 Overview: Borderline K+ at 3.6 today. Discontinue own potassium. Initiate K-dur 40meq daily. Obtain K in the AM06/17: K+ 4.1 today Will continue K-Dur 40 meq on discharge. // Hypomagnesemia 06/15/2010 05/05/2021 Overview: 06/15/2010: Magnesium 1.8 this am. Magnesium 400mg daily ordered. Mag draw in am06/16: Magnesium 1.9 today. Mag OX increased to 400mg BID. Mag draw in AM. 06/17: Magnesium 2.0 today. Will continue Mag OX 400mg BID at home. Mag blood draw on [facility]. // Retinal detachment with reti nal defect, unspecified 06/14/2010 05/05/2021 Anticoagulation monitoring, INR range 2-3 06/14/2010 09/28/2012 Overview: ECG on admission: AF, [id number] on tele w/ pt in bed QT/QTc: 380/460 Previous AAD: N/A Coumadin dose: 7.5mg daily INRs: see epic, therapeutic since 05/20/10. Pt goes to [facility]. CrCl:greater than 100 Will start Tikosyn per Dr Courtney Grady Plan for DCC if the pt remains in AF, IC in chart. 06/15: INR 2.9 today. Continue on Coumadin with INR check in the AM. 06/16: INR 3.1 today. Continue Coumadin. INR in the am/ 06/17: INR 3.4 today. Instructed patient to take 5mg today. INR check on Monday at [facility]// . Pulmonary embolism 03/01/2010 2 DVT (deep venous thrombosis) 01/12/2010 05/05/2021 Atrial fibrillation 11/03/2009 11/06/19 19 Overview: Hx: Persistent A.fib s/p Mini MAZE 05/2012. Currently in sinus. Had previously failed NATHAN's and DCC x5 Assessment: Currently in Sinus On amiodarone 300mg daily for 4 weeks from D/C can now switch to 200mg daily Plan: 200 mg daily amiodarone CHADS2 score of 1, with the h/o GI bleed will hold off on anticoagulation Morbid obesity 10/14/2009 02/20/2014 Overview: s/p Gastric bypass surgery Encounter for dietary counse ling and surveillance 10/14/2009 05/05/2021 Other specified disease of sebaceous glands 06/11/2008 05/05/2021 Corns and callosities 06/11/20082021 Contusion of foot 06/11/2008 05/05/2021 Torn rotator cuff 05/09/2022 documented as of this encounter (statuses as of 02/21/2023) [facility] History of Past illness Narrative* Problem Noted Date Diagnosed Date Resolved Date Syncope 11/02/2018 05/05/2021 Chest pain 05/03/2018 05/05/2021 Left lower quadrant pain 05/03/2018 Left leg swelling 05/03/2018 05/05/2021 Microhematuria 01/19/2018 05/09/2022 Overview: Added automatically from request for surgery [id number] Presence of intraocular lens 11/14/2017 05/05/2021 Bilateral posterior capsular opacification 11/14/2017 05/05/2021 History of detached retina repair 11/14/2017 05/05/2021 Strabismus 11/14/2017 05/05/2021 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 Continue Lovenox until INR > 2.0 or patient's INR Warfarin Indication Range Pharmacy Previous Dose Scr - If > 2mo ago, retest For calculation of Clcr & Lovenox dose Creatinine (mg/dL) Date Value 01/31/2015 1.03 Height Last 1 Encounter Ht Readings: Date: Ht: 02/06/2015 185.4 cm (6' 1) Weight Last 1 Encounter Wt Readings: Date: Wt: 02/06/2015 107.049 kg (236 lb) Lovenox Dose C-G Actual Body Wt Est Clcr = ml/min C-G Lean Body Wt Est Clcr = ml/min GlobalRPH Link The Lovenox dose above has been reviewed for Appropriateness based on pt specific criteria and disease state(s) Initials: Date: Bridge Instruction Sent to: Bridge Instructions Approved by Sent Via Epic Name or Type of Procedure Date Warfarin Dose INR PLT QOD X 14 days Total Initials and Comments Right Click & Insert Row for Today'sDocumentation. 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 Currently chest pain free; Talked with cardiology - said no need for treatment is patient is treatment free Plan: Continue to monitor Ulcer of perianal area 07/03/201205/05 Overview: Present on admission Dieulafoy lesion (hemorrhagic) of intestine 07/03/2012 05/05/2021 Overview: Hx: Seen on EGD 06/30 - lesion clipped Had been on multiple NSAIDS; Steroids; previously for pericarditis. 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 Plan: Monitor H&H Q8H, transfuse as necessary, keep Hb>8 Consult IR for further intervention Protonix gtt for now, will switch to protonix 40mg bid when Hb is stable after 48-72 hours GI on board, appreciate their recs MSSA (methicillin susceptibl e Staphylococcus aureus) infection 07/03/2012 05/05/2021 Overview: Hx: MSSA infection of serosal fluids collection in L chest wall. S/P I/D on 06/19. On IV oxacillin till and then dc'ed on 06/23 with a 10 day course of Dicloxacillin. 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 Currently chest pain free; However, there is a high chance of recurrence since treatment has been on hold. Giving him steroid might actually put him at more risk of re bleeding. NSAID'S not an option for now. Plan: Consider Colchicine. If patient is to be restarted on AC, Colchicine has to be held given interaction with Coumadin. 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 DVT prophylaxis 07/03/2012 05/05/2021 Overview: Plan: Will hold off on Hep given recent GI bleed IPC's Nephrolithiasis 05/11/2012 05/09/2022 Hyperoxaluria 05/11/2012 12/07/2015 Rhinitis 10/05/2011 05/09/2022 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 05/05/2021 skilled nursing (current) use of anticoagulants 03/18/2011 05/05/2021 Overview: PCC referring MD: Michael Mcmahan Anticoagulation management encounter 2010 05/05/2021 Other and unspecified postsu rgical nonabsorption 08/25/2010 05/05/2021 Wound check, abscess 08/25/2010 022 Hypokalemia 06/16/2010 05/05/2021 Overview: Borderline K+ at 3.6 today. Discontinue own potassium. Initiate K-dur 40meq daily. Obtain K in the AM06/17: K+ 4.1 today Will continue K-Dur 40 meq on discharge. // Hypomagnesemia 06/15/2010 05/05/2021 Overview: 06/15/2010: Magnesium 1.8 this am. Magnesium 400mg daily ordered. Mag draw in am06/16: Magnesium 1.9 today. Mag OX increased to 400mg BID. Mag draw in AM. 06/17: Magnesium 2.0 today. Will continue Mag OX 400mg BID at home. Mag blood draw on Monday. // Retinal detachment with reti nal defect, unspecified 06/14/2010 05/05/2021 Anticoagulation monitoring, INR range 2-3 06/14/2010 09/28/2012 Overview: ECG on admission: AF, [id number] on tele w/ pt in bed QT/QTc: 380/460 Previous AAD: N/A Coumadin dose: 7.5mg daily INRs: see epic, therapeutic since 05/20/10. Pt goes to [facility]. CrCl:greater than 100 Will start Tikosyn per Dr Courtney Grady Plan for DCC if the pt remains in AF, IC in chart. 06/15: INR 2.9 today. Continue on Coumadin with INR check in the AM. 06/16: INR 3.1 today. Continue Coumadin. INR in the am// 06/17: INR 3.4 today. Instructed patient to take 5mg today. INR check on Monday at [facility]// . Pulmonary embolism 03/01/2010 2 DVT (deep venous thrombosis) 01/12/2010 05/05/2021 Atrial fibrillation 11/03/2009 11/06/19 19 Overview: Hx: Persistent A.fib s/p Mini MAZE 05/2012. Currently in sinus. Had previously failed NATHAN's and DCC x5 Assessment: Currently in Sinus On amiodarone 300mg daily for 4 weeks from D/C can now switch to 200mg daily Plan: 200 mg daily amiodarone CHADS2 score of 1, with the h/o GI bleed will hold off on anticoagulation Morbid obesity 10/14/2009 02/20/2014 Overview: s/p Gastric bypass surgery Encounter for ziggy [place] and surveillance 10/14/2009 05/05/2021 Other specified disease of sebaceous glands 06/11/2008 05/05/2021 Corns and callosities 06/11/20082021 Contusion of foot 06/11/2008 05/05/2021 Torn rotator cuff 05/09/2022 documented as of this encounter (statuses as of 02/23/2023) [facility] History of Past illness Narrative* Problem Noted Date Diagnosed Date Resolved Date Syncope 11/02/2018 05/05/2021 Chest pain 05/03/2018 05/05/2021 Left lower quadrant pain 05/03/2018 Left leg swelling 05/03/2018 05/05/2021 Microhematuria 01/19/2018 05/09/2022 Overview: Added automatically from request for surgery [id number] Presence of intraocular lens 11/14/2017 05/05/2021 Bilateral posterior capsular opacification 11/14/2017 05/05/2021 History of detached retina repair 11/14/2017 05/05/2021 Strabismus 11/14/2017 05/05/2021 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 Continue Lovenox until INR > 2.0 or patient's INR Warfarin Indication Range Pharmacy Previous Dose Scr - If > 2mo ago, retest For calculation of Clcr & Lovenox dose Creatinine (mg/dL) Date Value 01/31/2015 1.03 Height Last 1 Encounter Ht Readings: Date: Ht: 02/06/2015 185.4 cm (6' 1) Weight Last 1 Encounter Wt Readings: Date: Wt: 02/06/2015 107.049 kg (236 lb) Lovenox Dose C-G Actual Body Wt Est Clcr = ml/min C-G Lean Body Wt Est Clcr = ml/min GlobalRPH Link The Lovenox dose above has been reviewed for Appropriateness based on pt specific criteria and disease state(s) Initials: Date: Bridge Instruction Sent to: Bridge Instructions Approved by Sent Via [employer] Name or Type of Procedure Date Warfarin Dose INR PLT QOD X 14 days Total Initials and Comments Right Click & Insert Row for Today'sDocumentation. 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 Currently chest pain free; Talked with cardiology - said no need for treatment is patient is treatment free Plan: Continue to monitor Ulcer of perianal area 07/03/201205/05 Overview: Present on admission Dieulafoy lesion (hemorrhagic) of intestine 07/03/2012 05/05/2021 Overview: Hx: Seen on EGD 06/30 - lesion clipped Had been on multiple NSAIDS; Steroids; previously for pericarditis. 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 Plan: Monitor H&H Q8H, transfuse as necessary, keep Hb>8 Consult IR for further intervention Protonix gtt for now, will switch to protonix 40mg bid when Hb is stable after 48-72 hours GI on board, appreciate their recs MSSA (methicillin susceptibl e Staphylococcus aureus) infection 07/03/2012 05/05/2021 Overview: Hx: MSSA infection of serosal fluids collection in L chest wall. S/P I/D on 06/19. On IV oxacillin till and then dc'ed on 06/23 with a 10 day course of Dicloxacillin. 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 Currently chest pain free; However, there is a high chance of recurrence since treatment has been on hold. Giving him steroid might actually put him at more risk of re bleeding. NSAID'S not an option for now. Plan: Consider Colchicine. If patient is to be restarted on AC, Colchicine has to be held given interaction with Coumadin. 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 DVT prophylaxis 07/03/2012 05/05/2021 Overview: Plan: Will hold off on Hep given recent GI bleed IPC's Nephrolithiasis 05/11/2012 05/09/2022 Hyperoxaluria 05/11/2012 12/07/2015 Rhinitis 10/05/2011 05/09/2022 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 05/05/2021 skilled nursing (current) use of anticoagulants 03/18/2011 05/05/2021 Overview: PCC referring MD: Michael Mcmahan Anticoagulation management encounter 2010 05/05/2021 Other and unspecified postsu rgical nonabsorption 08/25/2010 05/05/2021 Wound check, abscess 08/25/2010 022 Hypokalemia 06/16/2010 05/05/2021 Overview: Borderline K+ at 3.6 today. Discontinue own potassium. Initiate K-dur 40meq daily. Obtain K in the AM06/17: K+ 4.1 today Will continue K-Dur 40 meq on discharge. // Hypomagnesemia 06/15/2010 05/05/2021 Overview: 06/15/2010: Magnesium 1.8 this am. Magnesium 400mg daily ordered. Mag draw in am06/16: Magnesium 1.9 today. Mag OX increased to 400mg BID. Mag draw in AM. 06/17: Magnesium 2.0 today. Will continue Mag OX 400mg BID at home. Mag blood draw on Monday. // Retinal detachment with reti nal defect, unspecified 06/14/2010 05/05/2021 Anticoagulation monitoring, INR range 2-3 06/14/2010 09/28/2012 Overview: ECG on admission: AF, [id number] on tele w/ pt in bed QT/QTc: 380/460 Previous AAD: N/A Coumadin dose: 7.5mg daily INRs: see epic, therapeutic since 05/20/10. [facility]. CrCl:greater than 100 Will start Tikosyn per Dr Courtney Grady Plan for DCC if the pt remains in AF, IC in chart. 06/15: INR 2.9 today. Continue on Coumadin with INR check in the AM. 06/16: INR 3.1 today. Continue Coumadin. INR in the am// 06/17: INR 3.4 today. Instructed patient to take 5mg today. INR check on Monday at [facility]// . Pulmonary embolism 03/01/2010 DVT (deep venous thrombosis) 01/12/2010 05/05/2021 Atrial fibrillation 11/03/2009 11/06/19 19 Overview: Hx: Persistent A.fib s/p Mini MAZE 05/2012. Currently in sinus. Had previously failed NATHAN's and DCC x5 Assessment: Currently in Sinus On amiodarone 300mg daily for 4 weeks from D/C can now switch to 200mg daily Plan: 200 mg daily amiodarone CHADS2 score of 1, with the h/o GI bleed will hold off on anticoagulation Morbid obesity 10/14/2009 02/20/2014 Overview: s/p Gastric bypass surgery Encounter for ziggy [place] and surveillance 10/14/2009 05/05/2021 Other specified disease of sebaceous glands 06/11/2008 05/05/2021 Corns and callosities 06/11/20082021 Contusion of foot 06/11/2008 05/05/2021 Torn rotator cuff 05/09/2022 documented as of this encounter (statuses as of 02/23/2023) [facility] History of Past illness Narrative* Problem Noted Date Diagnosed Date Resolved Date Syncope 11/02/2018 05/05/2021 Chest pain 05/03/2018 05/05/2021 Left lower quadrant pain 05/03/2018 Left leg swelling 05/03/2018 05/05/2021 Microhematuria 01/19/2018 05/09/2022 Overview: Added automatically from request for surgery [id number] Presence of intraocular lens 11/14/2017 05/05/2021 Bilateral posterior capsular opacification 11/14/2017 05/05/2021 History of detached retina repair 11/14/2017 05/05/2021 Strabismus 11/14/2017 05/05/2021 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 Continue Lovenox until INR > 2.0 or patient's INR Warfarin Indication Range Pharmacy Previous Dose Scr - If > 2mo ago, retest For calculation of Clcr & Lovenox dose Creatinine (mg/dL) Date Value 01/31/2015 1.03 Height Last 1 Encounter Ht Readings: Date: Ht: 02/06/2015 185.4 cm (6' 1) Weight Last 1 Encounter Wt Readings: Date: Wt: 02/06/2015 107.049 kg (236 lb) Lovenox Dose C-G Actual Body Wt Est Clcr = ml/min C-G Lean Body Wt Est Clcr = ml/min GlobalRPH Link The Lovenox dose above has been reviewed for Appropriateness based on pt specific criteria and disease state(s) Initials: Date: Bridge Instruction Sent to: Bridge Instructions Approved by Sent Via [employer] Name or Type of Procedure Date Warfarin Dose INR PLT QOD X 14 days Total Initials and Comments Right Click & Insert Row for Today'sDocumentation. 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 Currently chest pain free; Talked with cardiology - said no need for treatment is patient is treatment free Plan: Continue to monitor Ulcer of perianal area 07/03/201205/05 Overview: Present on admission Dieulafoy lesion (hemorrhagic) of intestine 07/03/2012 05/05/2021 Overview: Hx: Seen on EGD 06/30 - lesion clipped Had been on multiple NSAIDS; Steroids; previously for pericarditis. 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 Plan: Monitor H&H Q8H, transfuse as necessary, keep Hb>8 Consult IR for further intervention Protonix gtt for now, will switch to protonix 40mg bid when Hb is stable after 48-72 hours GI on board, appreciate their recs MSSA (methicillin susceptibl e Staphylococcus aureus) infection 07/03/2012 05/05/2021 Overview: Hx: MSSA infection of serosal fluids collection in L chest wall. S/P I/D on 06/19. On IV oxacillin till and then dc'ed on 06/23 with a 10 day course of Dicloxacillin. 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 Currently chest pain free; However, there is a high chance of recurrence since treatment has been on hold. Giving him steroid might actually put him at more risk of re bleeding. NSAID'S not an option for now. Plan: Consider Colchicine. If patient is to be restarted on AC, Colchicine has to be held given interaction with Coumadin. 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 DVT prophylaxis 07/03/2012 05/05/2021 Overview: Plan: Will hold off on Hep given recent GI bleed IPC's Nephrolithiasis 05/11/2012 05/09/2022 Hyperoxaluria 05/11/2012 12/07/2015 Rhinitis 10/05/2011 05/09/2022 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 05/05/2021 emt intermediate (current) use of anticoagulants 03/18/2011 05/05/2021 Overview: PCC referring MD: Michael Mcmahan Anticoagulation management encounter 2010 05/05/2021 Other and unspecified postsu rgical nonabsorption 08/25/2010 05/05/2021 Wound check, abscess 08/25/2010 022 Hypokalemia 06/16/2010 05/05/2021 Overview: Borderline K+ at 3.6 today. Discontinue own potassium. Initiate K-dur 40meq daily. Obtain K in the AM06/17: K+ 4.1 today Will continue K-Dur 40 meq on discharge. // Hypomagnesemia 06/15/2010 05/05/2021 Overview: 06/15/2010: Magnesium 1.8 this am. Magnesium 400mg daily ordered. Mag draw in am06/16: Magnesium 1.9 today. Mag OX increased to 400mg BID. Mag draw in AM. 06/17: Magnesium 2.0 today. Will continue Mag OX 400mg BID at home. Mag blood draw on Monday. // Retinal detachment with reti nal defect, unspecified 06/14/2010 05/05/2021 Anticoagulation monitoring, INR range 2-3 06/14/2010 09/28/2012 Overview: ECG on admission: AF, [id number] on tele w/ pt in bed QT/QTc: 380/460 Previous AAD: N/A Coumadin dose: 7.5mg daily INRs: see epic, therapeutic since 05/20/10. [facility]. CrCl:greater than 100 Will start Tikosyn per Dr Courtney Grady Plan for DCC if the pt remains in AF, IC in chart. 06/15: INR 2.9 today. Continue on Coumadin with INR check in the AM. 06/16: INR 3.1 today. Continue Coumadin. INR in the am// 06/17: INR 3.4 today. Instructed patient to take 5mg today. INR check on Monday at [facility]// . Pulmonary embolism 03/01/2010 DVT (deep venous thrombosis) 01/12/2010 05/05/2021 Atrial fibrillation 11/03/2009 11/06/19 19 Overview: Hx: Persistent A.fib s/p Mini MAZE 05/2012. Currently in sinus. Had previously failed NATHAN's and DCC x5 Assessment: Currently in Sinus On amiodarone 300mg daily for 4 weeks from D/C can now switch to 200mg daily Plan: 200 mg daily amiodarone CHADS2 score of 1, with the h/o GI bleed will hold off on anticoagulation Morbid obesity 10/14/2009 02/20/2014 Overview: s/p Gastric bypass surgery Encounter for dietary counse ling and surveillance 10/14/2009 05/05/2021 Other specified disease of sebaceous glands 06/11/2008 05/05/2021 Corns and callosities 06/11/20082021 Contusion of foot 06/11/2008 05/05/2021 Torn rotator cuff 05/09/2022 documented as of this encounter (statuses as of 03/02/2023) [facility] History of Past illness Narrative* Problem Noted Date Diagnosed Date Resolved Date Syncope 11/02/2018 05/05/2021 Chest pain 05/03/2018 05/05/2021 Left lower quadrant pain 05/03/2018 Left leg swelling 05/03/2018 05/05/2021 Microhematuria 01/19/2018 05/09/2022 Overview: Added automatically from request for surgery [id number] Presence of intraocular lens 11/14/2017 05/05/2021 Bilateral posterior capsular opacification 11/14/2017 05/05/2021 History of detached retina repair 11/14/2017 05/05/2021 Strabismus 11/14/2017 05/05/2021 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 Continue Lovenox until INR > 2.0 or patient's INR Warfarin Indication Range Pharmacy Previous Dose Scr - If > 2mo ago, retest For calculation of Clcr & Lovenox dose Creatinine (mg/dL) Date Value 01/31/2015 1.03 Height Last 1 Encounter Ht Readings: Date: Ht: 02/06/2015 185.4 cm (6' 1) Weight Last 1 Encounter Wt Readings: Date: Wt: 02/06/2015 107.049 kg (236 lb) Lovenox Dose C-G Actual Body Wt Est Clcr = ml/min C-G Lean Body Wt Est Clcr = ml/min GlobalRPH Link The Lovenox dose above has been reviewed for Appropriateness based on pt specific criteria and disease state(s) Initials: Date: Bridge Instruction Sent to: Bridge Instructions Approved by Sent Via [facility] Name or Type of Procedure Date Warfarin Dose INR PLT QOD X 14 days Total Initials and Comments Right Click & Insert Row for Today'sDocumentation. 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 05/05/19 22 Gall stones, common bile duct 12/07/2013 05/05/2021 Epiretinal membrane 11/01/2013 05/05/19 22 Shoulder pain 09/12/2013 05/05/2021 Retinal detachment 09/03/2013 4 NO SHOW 05/03/2013 05/05/2021 Ingrown toenail 02/03/2013 05/05/2021 Senile nuclear sclerosis 01/29/2013 Hip joint 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 Currently chest pain free; Talked with cardiology - said no need for treatment is patient is treatment free Plan: Continue to monitor Ulcer of perianal area 07/03/201205/05 Overview: Present on admission Dieulafoy lesion (hemorrhagic) of intestine 07/03/2012 05/05/2021 Overview: Hx: Seen on EGD 06/30 - lesion clipped Had been on multiple NSAIDS; Steroids; previously for pericarditis. 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 Plan: Monitor H&H Q8H, transfuse as necessary, keep Hb>8 Consult IR for further intervention Protonix gtt for now, will switch to protonix 40mg bid when Hb is stable after 48-72 hours GI on board, appreciate their recs MSSA (methicillin susceptibl e Staphylococcus aureus) infection 07/03/2012 05/05/2021 Overview: Hx: MSSA infection of serosal fluids collection in L chest wall. S/P I/D on 06/19. On IV oxacillin till and then dc'ed on 06/23 with a 10 day course of Dicloxacillin. 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 Currently chest pain free; However, there is a high chance of recurrence since treatment has been on hold. Giving him steroid might actually put him at more risk of re bleeding. NSAID'S not an option for now. Plan: Consider Colchicine. If patient is to be restarted on AC, Colchicine has to be held given interaction with Coumadin. 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 DVT prophylaxis 07/03/2012 05/05/2021 Overview: Plan: Will hold off on Hep given recent GI bleed IPC's Nephrolithiasis 05/11/2012 05/09/2022 Hyperoxaluria 05/11/2012 12/07/2015 Rhinitis 10/05/2011 05/09/2022 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 05/05/2021 skilled nursing (current) use of anticoagulants 03/18/2011 05/05/2021 Overview: PCC referring MD: Michael Mcmahan Anticoagulation management encounter 2010 05/05/2021 Other and unspecified postsu rgical nonabsorption 08/25/2010 05/05/2021 Wound check, abscess 08/25/2010 022 Hypokalemia 06/16/2010 05/05/2021 Overview: Borderline K+ at 3.6 today. Discontinue own potassium. Initiate K-dur 40meq daily. Obtain K in the AM06/17: K+ 4.1 today Will continue K-Dur 40 meq on discharge. // Hypomagnesemia 06/15/2010 05/05/2021 Overview: 06/15/2010: Magnesium 1.8 this am. Magnesium 400mg daily ordered. Mag draw in am06/16: Magnesium 1.9 today. Mag OX increased to 400mg BID. Mag draw in AM. 06/17: Magnesium 2.0 today. Will continue Mag OX 400mg BID at home. Mag blood draw on Monday. // Retinal detachment with reti nal defect, unspecified 06/14/2010 05/05/2021 Anticoagulation monitoring, INR range 2-3 06/14/2010 09/28/2012 Overview: ECG on admission: AF, [id number] on tele w/ pt in bed QT/QTc: 380/460 Previous AAD: N/A Coumadin dose: 7.5mg daily INRs: see epic, therapeutic since 05/20/10. Pt goes to [facility]. CrCl:greater than 100 Will start Tikosyn per Dr Courtney Grady Plan for DCC if the pt remains in AF, IC in chart. 06/15: INR 2.9 today. Continue on Coumadin with INR check in the AM. 06/16: INR 3.1 today. Continue Coumadin. INR in the am// 06/17: INR 3.4 today. Instructed patient to take 5mg today. INR check on Monday at [facility]// . Pulmonary embolism 03/01/2010 2 DVT (deep venous thrombosis) 01/12/2010 05/05/2021 Atrial fibrillation 11/03/2009 11/06/19 19 Overview: Hx: Persistent A.fib s/p Mini MAZE 05/2012. Currently in sinus. Had previously failed NATHAN's and DCC x5 Assessment: Currently in Sinus On amiodarone 300mg daily for 4 weeks from D/C can now switch to 200mg daily Plan: 200 mg daily amiodarone CHADS2 score of 1, with the h/o GI bleed will hold off on anticoagulation Morbid obesity 10/14/2009 02/20/2014 Overview: s/p Gastric bypass surgery Encounter for dietary counse ling and surveillance 10/14/2009 05/05/2021 Eating disorder, unspecified 07/01/2009 05/12/2023 Other specified disease of sebaceous glands 06/11/2008 05/05/2021 Corns and callosities 06/11/20082021 Contusion of foot 06/11/2008 05/05/2021 Torn rotator cuff 05/09/2022 documented as of this encounter (statuses as of 05/12/2023) [facility] History of Past illness Narrative* Problem Noted Date Diagnosed Date Resolved Date Syncope 11/02/2018 05/05/2021 Chest pain 05/03/2018 05/05/2021 Left lower quadrant pain 05/03/2018 Left leg swelling 05/03/2018 05/05/2021 Microhematuria 01/19/2018 05/09/2022 Overview: Added automatically from request for surgery [id number] Presence of intraocular lens 11/14/2017 05/05/2021 Bilateral posterior capsular opacification 11/14/2017 05/05/2021 History of detached retina repair 11/14/2017 05/05/2021 Strabismus 11/14/2017 05/05/2021 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 Continue Lovenox until INR > 2.0 or patient's INR Warfarin Indication Range Pharmacy Previous Dose Scr - If > 2mo ago, retest For calculation of Clcr & Lovenox dose Creatinine (mg/dL) Date Value 01/31/2015 1.03 Height Last 1 Encounter Ht Readings: Date: Ht: 02/06/2015 185.4 cm (6' 1) Weight Last 1 Encounter Wt Readings: Date: Wt: 02/06/2015 107.049 kg (236 lb) Lovenox Dose C-G Actual Body Wt Est Clcr = ml/min C-G Lean Body Wt Est Clcr = ml/min GlobalRPH Link The Lovenox dose above has been reviewed for Appropriateness based on pt specific criteria and disease state(s) Initials: Date: Bridge Instruction Sent to: Bridge Instructions Approved by Sent Via [facility] Name or Type of Procedure Date Warfarin Dose INR PLT QOD X 14 days Total Initials and Comments Right Click & Insert Row for Today'sDocumentation. 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 05/05/19 22 Gall stones, common bile duct 12/07/2013 05/05/2021 Epiretinal membrane 11/01/2013 05/05/19 22 Shoulder pain 09/12/2013 05/05/2021 Retinal detachment 09/03/2013 4 NO SHOW 05/03/2013 05/05/2021 Ingrown toenail 02/03/2013 05/05/2021 Senile nuclear sclerosis 01/29/2013 Hip joint 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 Currently chest pain free; Talked with cardiology - said no need for treatment is patient is treatment free Plan: Continue to monitor Ulcer of perianal area 07/03/201205/05 Overview: Present on admission Dieulafoy lesion (hemorrhagic) of intestine 07/03/2012 05/05/2021 Overview: Hx: Seen on EGD 06/30 - lesion clipped Had been on multiple NSAIDS; Steroids; previously for pericarditis. 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 Plan: Monitor H&H Q8H, transfuse as necessary, keep Hb>8 Consult IR for further intervention Protonix gtt for now, will switch to protonix 40mg bid when Hb is stable after 48-72 hours GI on board, appreciate their recs MSSA (methicillin susceptibl e Staphylococcus aureus) infection 07/03/2012 05/05/2021 Overview: Hx: MSSA infection of serosal fluids collection in L chest wall. S/P I/D on 06/19. On IV oxacillin till and then dc'ed on 06/23 with a 10 day course of Dicloxacillin. 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 Currently chest pain free; However, there is a high chance of recurrence since treatment has been on hold. Giving him steroid might actually put him at more risk of re bleeding. NSAID'S not an option for now. Plan: Consider Colchicine. If patient is to be restarted on AC, Colchicine has to be held given interaction with Coumadin. 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 DVT prophylaxis 07/03/2012 05/05/2021 Overview: Plan: Will hold off on Hep given recent GI bleed IPC's Nephrolithiasis 05/11/2012 05/09/2022 Hyperoxaluria 05/11/2012 12/07/2015 Rhinitis 10/05/2011 05/09/2022 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 05/05/2021 emt intermediate (current) use of anticoagulants 03/18/2011 05/05/2021 Overview: PCC referring MD: Michael Mcmahan Anticoagulation management encounter 2010 05/05/2021 Other and unspecified postsu rgical nonabsorption 08/25/2010 05/05/2021 Wound check, abscess 08/25/2010 022 Hypokalemia 06/16/2010 05/05/2021 Overview: Borderline K+ at 3.6 today. Discontinue own potassium. Initiate K-dur 40meq daily. Obtain K in the AM06/17: K+ 4.1 today Will continue K-Dur 40 meq on discharge. // Hypomagnesemia 06/15/2010 05/05/2021 Overview: 06/15/2010: Magnesium 1.8 this am. Magnesium 400mg daily ordered. Mag draw in am06/16: Magnesium 1.9 today. Mag OX increased to 400mg BID. Mag draw in AM. 06/17: Magnesium 2.0 today. Will continue Mag OX 400mg BID at home. Mag blood draw on Monday. // Retinal detachment with reti nal defect, unspecified 06/14/2010 05/05/2021 Anticoagulation monitoring, INR range 2-3 06/14/2010 09/28/2012 Overview: ECG on admission: AF, [id number] on tele w/ pt in bed QT/QTc: 380/460 Previous AAD: N/A Coumadin dose: 7.5mg daily INRs: see epic, therapeutic since 05/20/10. Pt goes to [facility]. CrCl:greater than 100 Will start Tikosyn per Dr Courtney Grady Plan for DCC if the pt remains in AF, IC in chart. 06/15: INR 2.9 today. Continue on Coumadin with INR check in the AM. 06/16: INR 3.1 today. Continue Coumadin. INR in the am// 06/17: INR 3.4 today. Instructed patient to take 5mg today. INR check on Monday at [facility]// . Pulmonary embolism 03/01/2010 2 DVT (deep venous thrombosis) 01/12/2010 05/05/2021 Atrial fibrillation 11/03/2009 11/06/19 19 Overview: Hx: Persistent A.fib s/p Mini MAZE 05/2012. Currently in sinus. Had previously failed NATHAN's and DCC x5 Assessment: Currently in Sinus On amiodarone 300mg daily for 4 weeks from D/C can now switch to 200mg daily Plan: 200 mg daily amiodarone CHADS2 score of 1, with the h/o GI bleed will hold off on anticoagulation Morbid obesity 10/14/2009 02/20/2014 Overview: s/p Gastric bypass surgery Encounter for dietary counse ling and surveillance 10/14/2009 05/05/2021 Eating disorder, unspecified 07/01/2009 05/12/2023 Other specified disease of sebaceous glands 06/11/2008 05/05/2021 Corns and callosities 06/11/20082021 Contusion of foot 06/11/2008 05/05/2021 Torn rotator cuff 05/09/2022 documented as of this encounter (statuses as of 05/17/2023) [facility] History of Past illness Narrative* Problem Noted Date Diagnosed Date Resolved Date Syncope 11/02/2018 05/05/2021 Chest pain 05/03/2018 05/05/2021 Left lower quadrant pain 05/03/2018 Left leg swelling 05/03/2018 05/05/2021 Microhematuria 01/19/2018 05/09/2022 Overview: Added automatically from request for surgery [id number] Presence of intraocular lens 11/14/2017 05/05/2021 Bilateral posterior capsular opacification 11/14/2017 05/05/2021 History of detached retina repair 11/14/2017 05/05/2021 Strabismus 11/14/2017 05/05/2021 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 Continue Lovenox until INR > 2.0 or patient's INR Warfarin Indication Range Pharmacy Previous Dose Scr - If > 2mo ago, retest For calculation of Clcr & Lovenox dose Creatinine (mg/dL) Date Value 01/31/2015 1.03 Height Last 1 Encounter Ht Readings: Date: Ht: 02/06/2015 185.4 cm (6' 1) Weight Last 1 Encounter Wt Readings: Date: Wt: 02/06/2015 107.049 kg (236 lb) Lovenox Dose C-G Actual Body Wt Est Clcr = ml/min C-G Lean Body Wt Est Clcr = ml/min GlobalRPH Link The Lovenox dose above has been reviewed for Appropriateness based on pt specific criteria and disease state(s) Initials: Date: Bridge Instruction Sent to: Bridge Instructions Approved by Sent Via [facility] Name or Type of Procedure Date Warfarin Dose INR PLT QOD X 14 days Total Initials and Comments Right Click & Insert Row for Today'sDocumentation. 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 05/05/19 22 Gall stones, common bile duct 12/07/2013 05/05/2021 Epiretinal membrane 11/01/2013 05/05/19 22 Shoulder pain 09/12/2013 05/05/2021 Retinal detachment 09/03/2013 4 NO SHOW 05/03/2013 05/05/2021 Ingrown toenail 02/03/2013 05/05/2021 Senile nuclear sclerosis 01/29/2013 Hip joint 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 Currently chest pain free; Talked with cardiology - said no need for treatment is patient is treatment free Plan: Continue to monitor Ulcer of perianal area 07/03/201205/05 Overview: Present on admission Dieulafoy lesion (hemorrhagic) of intestine 07/03/2012 05/05/2021 Overview: Hx: Seen on EGD 06/30 - lesion clipped Had been on multiple NSAIDS; Steroids; previously for pericarditis. 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 Plan: Monitor H&H Q8H, transfuse as necessary, keep Hb>8 Consult IR for further intervention Protonix gtt for now, will switch to protonix 40mg bid when Hb is stable after 48-72 hours GI on board, appreciate their recs MSSA (methicillin susceptibl e Staphylococcus aureus) infection 07/03/2012 05/05/2021 Overview: Hx: MSSA infection of serosal fluids collection in L chest wall. S/P I/D on 06/19. On IV oxacillin till and then dc'ed on 06/23 with a 10 day course of Dicloxacillin. 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 Currently chest pain free; However, there is a high chance of recurrence since treatment has been on hold. Giving him steroid might actually put him at more risk of re bleeding. NSAID'S not an option for now. Plan: Consider Colchicine. If patient is to be restarted on AC, Colchicine has to be held given interaction with Coumadin. 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 DVT prophylaxis 07/03/2012 05/05/2021 Overview: Plan: Will hold off on Hep given recent GI bleed IPC's Nephrolithiasis 05/11/2012 05/09/2022 Hyperoxaluria 05/11/2012 12/07/2015 Rhinitis 10/05/2011 05/09/2022 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 05/05/2021 skilled nursing (current) use of anticoagulants 03/18/2011 05/05/2021 Overview: PCC referring MD: Michael Mcmahan Anticoagulation management encounter 2010 05/05/2021 Other and unspecified postsu rgical nonabsorption 08/25/2010 05/05/2021 Wound check, abscess 08/25/2010 022 Hypokalemia 06/16/2010 05/05/2021 Overview: Borderline K+ at 3.6 today. Discontinue own potassium. Initiate K-dur 40meq daily. Obtain K in the AM06/17: K+ 4.1 today Will continue K-Dur 40 meq on discharge. // Hypomagnesemia 06/15/2010 05/05/2021 Overview: 06/15/2010: Magnesium 1.8 this am. Magnesium 400mg daily ordered. Mag draw in am06/16: Magnesium 1.9 today. Mag OX increased to 400mg BID. Mag draw in AM. 06/17: Magnesium 2.0 today. Will continue Mag OX 400mg BID at home. Mag blood draw on Monday. // Retinal detachment with reti nal defect, unspecified 06/14/2010 05/05/2021 Anticoagulation monitoring, INR range 2-3 06/14/2010 09/28/2012 Overview: ECG on admission: AF, [id number] on tele w/ pt in bed QT/QTc: 380/460 Previous AAD: N/A Coumadin dose: 7.5mg daily INRs: see epic, therapeutic since 05/20/10. Pt goes to [facility]. CrCl:greater than 100 Will start Tikosyn per Dr Courtney Grady Plan for DCC if the pt remains in AF, IC in chart. 06/15: INR 2.9 today. Continue on Coumadin with INR check in the AM. 06/16: INR 3.1 today. Continue Coumadin. INR in the am// 06/17: INR 3.4 today. Instructed patient to take 5mg today. INR check on Monday at [facility]// . Pulmonary embolism 03/01/2010 2 DVT (deep venous thrombosis) 01/12/2010 05/05/2021 Atrial fibrillation 11/03/2009 11/06/19 19 Overview: Hx: Persistent A.fib s/p Mini MAZE 05/2012. Currently in sinus. Had previously failed NATHAN's and DCC x5 Assessment: Currently in Sinus On amiodarone 300mg daily for 4 weeks from D/C can now switch to 200mg daily Plan: 200 mg daily amiodarone CHADS2 score of 1, with the h/o GI bleed will hold off on anticoagulation Morbid obesity 10/14/2009 02/20/2014 Overview: s/p Gastric bypass surgery Encounter for dietary counse ling and surveillance 10/14/2009 05/05/2021 Eating disorder, unspecified 07/01/2009 05/12/2023 Other specified disease of sebaceous glands 06/11/2008 05/05/2021 Corns and callosities 06/11/20082021 Contusion of foot 06/11/2008 05/05/2021 Torn rotator cuff 05/09/2022 documented as of this encounter (statuses as of 06/01/2023) [facility] History of Past illness Narrative* Problem Noted Date Diagnosed Date Resolved Date Syncope 11/02/2018 05/05/2021 Chest pain 05/03/2018 05/05/2021 Left lower quadrant pain 05/03/2018 Left leg swelling 05/03/2018 05/05/2021 Microhematuria 01/19/2018 05/09/2022 Overview: Added automatically from request for surgery [id number] Presence of intraocular lens 11/14/2017 05/05/2021 Bilateral posterior capsular opacification 11/14/2017 05/05/2021 History of detached retina repair 11/14/2017 05/05/2021 Strabismus 11/14/2017 05/05/2021 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 Continue Lovenox until INR > 2.0 or patient's INR Warfarin Indication Range Pharmacy Previous Dose Scr - If > 2mo ago, retest For calculation of Clcr & Lovenox dose Creatinine (mg/dL) Date Value 01/31/2015 1.03 Height Last 1 Encounter Ht Readings: Date: Ht: 02/06/2015 185.4 cm (6' 1) Weight Last 1 Encounter Wt Readings: Date: Wt: 02/06/2015 107.049 kg (236 lb) Lovenox Dose C-G Actual Body Wt Est Clcr = ml/min C-G Lean Body Wt Est Clcr = ml/min GlobalRPH Link The Lovenox dose above has been reviewed for Appropriateness based on pt specific criteria and disease state(s) Initials: Date: Bridge Instruction Sent to: Bridge Instructions Approved by Sent Via [facility] Name or Type of Procedure Date Warfarin Dose INR PLT QOD X 14 days Total Initials and Comments Right Click & Insert Row for Today'sDocumentation. 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 05/05/19 22 Gall stones, common bile duct 12/07/2013 05/05/2021 Epiretinal membrane 11/01/2013 05/05/19 22 Shoulder pain 09/12/2013 05/05/2021 Retinal detachment 09/03/2013 4 NO SHOW 05/03/2013 05/05/2021 Ingrown toenail 02/03/2013 05/05/2021 Senile nuclear sclerosis 01/29/2013 Hip joint 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 Currently chest pain free; Talked with cardiology - said no need for treatment is patient is treatment free Plan: Continue to monitor Ulcer of perianal area 07/03/201205/05 Overview: Present on admission Dieulafoy lesion (hemorrhagic) of intestine 07/03/2012 05/05/2021 Overview: Hx: Seen on EGD 06/30 - lesion clipped Had been on multiple NSAIDS; Steroids; previously for pericarditis. 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 Plan: Monitor H&H Q8H, transfuse as necessary, keep Hb>8 Consult IR for further intervention Protonix gtt for now, will switch to protonix 40mg bid when Hb is stable after 48-72 hours GI on board, appreciate their recs MSSA (methicillin susceptibl e Staphylococcus aureus) infection 07/03/2012 05/05/2021 Overview: Hx: MSSA infection of serosal fluids collection in L chest wall. S/P I/D on 06/19. On IV oxacillin till and then dc'ed on 06/23 with a 10 day course of Dicloxacillin. 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 Currently chest pain free; However, there is a high chance of recurrence since treatment has been on hold. Giving him steroid might actually put him at more risk of re bleeding. NSAID'S not an option for now. Plan: Consider Colchicine. If patient is to be restarted on AC, Colchicine has to be held given interaction with Coumadin. 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 DVT prophylaxis 07/03/2012 05/05/2021 Overview: Plan: Will hold off on Hep given recent GI bleed IPC's Nephrolithiasis 05/11/2012 05/09/2022 Hyperoxaluria 05/11/2012 12/07/2015 Rhinitis 10/05/2011 05/09/2022 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 05/05/2021 skilled nursing (current) use of anticoagulants 03/18/2011 05/05/2021 Overview: PCC referring MD: Michael Mcmahan Anticoagulation management encounter 2010 05/05/2021 Other and unspecified postsu rgical nonabsorption 08/25/2010 05/05/2021 Wound check, abscess 08/25/2010 022 Hypokalemia 06/16/2010 05/05/2021 Overview: Borderline K+ at 3.6 today. Discontinue own potassium. Initiate K-dur 40meq daily. Obtain K in the AM06/17: K+ 4.1 today Will continue K-Dur 40 meq on discharge. // Hypomagnesemia 06/15/2010 05/05/2021 Overview: 06/15/2010: Magnesium 1.8 this am. Magnesium 400mg daily ordered. Mag draw in am06/16: Magnesium 1.9 today. Mag OX increased to 400mg BID. Mag draw in AM. 06/17: Magnesium 2.0 today. Will continue Mag OX 400mg BID at home. Mag blood draw on Monday. // Retinal detachment with reti nal defect, unspecified 06/14/2010 05/05/2021 Anticoagulation monitoring, INR range 2-3 06/14/2010 09/28/2012 Overview: ECG on admission: AF, [id number] on tele w/ pt in bed QT/QTc: 380/460 Previous AAD: N/A Coumadin dose: 7.5mg daily INRs: see epic, therapeutic since 05/20/10. Pt goes to [facility]. CrCl:greater than 100 Will start Tikosyn per Dr Courtney Grady Plan for DCC if the pt remains in AF, IC in chart. 06/15: INR 2.9 today. Continue on Coumadin with INR check in the AM. 06/16: INR 3.1 today. Continue Coumadin. INR in the am// 06/17: INR 3.4 today. Instructed patient to take 5mg today. INR check on Monday at [place]// . Pulmonary embolism 03/01/2010 2 DVT (deep venous thrombosis) 01/12/2010 05/05/2021 Atrial fibrillation 11/03/2009 11/06/19 19 Overview: Hx: Persistent A.fib s/p Mini MAZE 05/2012. Currently in sinus. Had previously failed NATHAN's and DCC x5 Assessment: Currently in Sinus On amiodarone 300mg daily for 4 weeks from D/C can now switch to 200mg daily Plan: 200 mg daily amiodarone CHADS2 score of 1, with the h/o GI bleed will hold off on anticoagulation Morbid obesity 10/14/2009 02/20/2014 Overview: s/p Gastric bypass surgery Encounter for dietary counse ling and surveillance 10/14/2009 05/05/2021 Eating disorder, unspecified 07/01/2009 05/12/2023 Other specified disease of sebaceous glands 06/11/2008 05/05/2021 Corns and callosities 06/11/20082021 Contusion of foot 06/11/2008 05/05/2021 Torn rotator cuff 05/09/2022 documented as of this encounter (statuses as of 06/06/2023) [facility] History of Past illness Narrative* Problem Noted Date Diagnosed Date Resolved Date Syncope 11/02/2018 05/05/2021 Chest pain 05/03/2018 05/05/2021 Left lower quadrant pain 05/03/2018 Left leg swelling 05/03/2018 05/05/2021 Microhematuria 01/19/2018 05/09/2022 Overview: Added automatically from request for surgery [id number] Presence of intraocular lens 11/14/2017 05/05/2021 Bilateral posterior capsular opacification 11/14/2017 05/05/2021 History of detached retina repair 11/14/2017 05/05/2021 Strabismus 11/14/2017 05/05/2021 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 Continue Lovenox until INR > 2.0 or patient's INR Warfarin Indication Range Pharmacy Previous Dose Scr - If > 2mo ago, retest For calculation of Clcr & Lovenox dose Creatinine (mg/dL) Date Value 01/31/2015 1.03 Height Last 1 Encounter Ht Readings: Date: Ht: 02/06/2015 185.4 cm (6' 1) Weight Last 1 Encounter Wt Readings: Date: Wt: 02/06/2015 107.049 kg (236 lb) Lovenox Dose C-G Actual Body Wt Est Clcr = ml/min C-G Lean Body Wt Est Clcr = ml/min GlobalRPH Link The Lovenox dose above has been reviewed for Appropriateness based on pt specific criteria and disease state(s) Initials: Date: Bridge Instruction Sent to: Bridge Instructions Approved by Sent Via [facility] Name or Type of Procedure Date Warfarin Dose INR PLT QOD X 14 days Total Initials and Comments Right Click & Insert Row for Today'sDocumentation. 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 05/05/19 22 Gall stones, common bile duct 12/07/2013 05/05/2021 Epiretinal membrane 11/01/2013 05/05/19 22 Shoulder pain 09/12/2013 05/05/2021 Retinal detachment 09/03/2013 4 NO SHOW 05/03/2013 05/05/2021 Ingrown toenail 02/03/2013 05/05/2021 Senile nuclear sclerosis 01/29/2013 Hip joint 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 Currently chest pain free; Talked with cardiology - said no need for treatment is patient is treatment free Plan: Continue to monitor Ulcer of perianal area 07/03/201205/05 Overview: Present on admission Dieulafoy lesion (hemorrhagic) of intestine 07/03/2012 05/05/2021 Overview: Hx: Seen on EGD 06/30 - lesion clipped Had been on multiple NSAIDS; Steroids; previously for pericarditis. 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 Plan: Monitor H&H Q8H, transfuse as necessary, keep Hb>8 Consult IR for further intervention Protonix gtt for now, will switch to protonix 40mg bid when Hb is stable after 48-72 hours GI on board, appreciate their recs MSSA (methicillin susceptibl e Staphylococcus aureus) infection 07/03/2012 05/05/2021 Overview: Hx: MSSA infection of serosal fluids collection in L chest wall. S/P I/D on 06/19. On IV oxacillin till and then dc'ed on 06/23 with a 10 day course of Dicloxacillin. 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 Currently chest pain free; However, there is a high chance of recurrence since treatment has been on hold. Giving him steroid might actually put him at more risk of re bleeding. NSAID'S not an option for now. Plan: Consider Colchicine. If patient is to be restarted on AC, Colchicine has to be held given interaction with Coumadin. 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 DVT prophylaxis 07/03/2012 05/05/2021 Overview: Plan: Will hold off on Hep given recent GI bleed IPC's Nephrolithiasis 05/11/2012 05/09/2022 Hyperoxaluria 05/11/2012 12/07/2015 Rhinitis 10/05/2011 05/09/2022 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 05/05/2021 emt intermediate (current) use of anticoagulants 03/18/2011 05/05/2021 Overview: PCC referring MD: Michael Mcmahan Anticoagulation management encounter 2010 05/05/2021 Other and unspecified postsu rgical nonabsorption 08/25/2010 05/05/2021 Wound check, abscess 08/25/2010 022 Hypokalemia 06/16/2010 05/05/2021 Overview: Borderline K+ at 3.6 today. Discontinue own potassium. Initiate K-dur 40meq daily. Obtain K in the AM06/17: K+ 4.1 today Will continue K-Dur 40 meq on discharge. // Hypomagnesemia 06/15/2010 05/05/2021 Overview: 06/15/2010: Magnesium 1.8 this am. Magnesium 400mg daily ordered. Mag draw in am06/16: Magnesium 1.9 today. Mag OX increased to 400mg BID. Mag draw in AM. 06/17: Magnesium 2.0 today. Will continue Mag OX 400mg BID at home. Mag blood draw on Monday. // Retinal detachment with reti nal defect, unspecified 06/14/2010 05/05/2021 Anticoagulation monitoring, INR range 2-3 06/14/2010 09/28/2012 Overview: ECG on admission: AF, [id number] on tele w/ pt in bed QT/QTc: 380/460 Previous AAD: N/A Coumadin dose: 7.5mg daily INRs: see epic, therapeutic since 05/20/10. Pt goes to [facility]. CrCl:greater than 100 Will start Tikosyn per Dr Courtney Grady Plan for DCC if the pt remains in AF, IC in chart. 06/15: INR 2.9 today. Continue on Coumadin with INR check in the AM. 06/16: INR 3.1 today. Continue Coumadin. INR in the am// 06/17: INR 3.4 today. Instructed patient to take 5mg today. INR check on Monday at [place]// . Pulmonary embolism 03/01/2010 DVT (deep venous thrombosis) 01/12/2010 05/05/2021 Atrial fibrillation 11/03/2009 11/06/19 Overview: Hx: Persistent A.fib s/p Mini MAZE 05/2012. Currently in sinus. Had previously failed NATHAN's and DCC x5 Assessment: Currently in Sinus On amiodarone 300mg daily for 4 weeks from D/C can now switch to 200mg daily Plan: 200 mg daily amiodarone CHADS2 score of 1, with the h/o GI bleed will hold off on anticoagulation Morbid obesity 10/14/2009 02/20/2014 Overview: s/p Gastric bypass surgery Encounter for dietary counse ling and surveillance 10/14/2009 05/05/2021 Eating disorder, unspecified 07/01/2009 05/12/2023 Other specified disease of sebaceous glands 06/11/2008 05/05/2021 Corns and callosities 06/11/20082021 Contusion of foot 06/11/2008 05/05/2021 Torn rotator cuff 05/09/2022 documented as of this encounter (statuses as of 06/27/2023) [facility] History of Past illness Narrative* Problem Noted Date Diagnosed Date Resolved Date Syncope 11/02/2018 05/05/2021 Chest pain 05/03/2018 05/05/2021 Left lower quadrant pain 05/03/2018 Left leg swelling 05/03/2018 05/05/2021 Microhematuria 01/19/2018 05/09/2022 Overview: Added automatically from request for surgery [id number] Presence of intraocular lens 11/14/2017 05/05/2021 Bilateral posterior capsular opacification 11/14/2017 05/05/2021 History of detached retina repair 11/14/2017 05/05/2021 Strabismus 11/14/2017 05/05/2021 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 Continue Lovenox until INR > 2.0 or patient's INR Warfarin Indication Range Pharmacy Previous Dose Scr - If > 2mo ago, retest For calculation of Clcr & Lovenox dose Creatinine (mg/dL) Date Value 01/31/2015 1.03 Height Last 1 Encounter Ht Readings: Date: Ht: 02/06/2015 185.4 cm (6' 1) Weight Last 1 Encounter Wt Readings: Date: Wt: 02/06/2015 107.049 kg (236 lb) Lovenox Dose C-G Actual Body Wt Est Clcr = ml/min C-G Lean Body Wt Est Clcr = ml/min GlobalRPH Link The Lovenox dose above has been reviewed for Appropriateness based on pt specific criteria and disease state(s) Initials: Date: Bridge Instruction Sent to: Bridge Instructions Approved by Sent Via [facility] Name or Type of Procedure Date Warfarin Dose INR PLT QOD X 14 days Total Initials and Comments Right Click & Insert Row for Today'sDocumentation. 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 05/05/19 22 Gall stones, common bile duct 12/07/2013 05/05/2021 Epiretinal membrane 11/01/2013 05/05/19 22 Shoulder pain 09/12/2013 05/05/2021 Retinal detachment 09/03/2013 4 NO SHOW 05/03/2013 05/05/2021 Ingrown toenail 02/03/2013 05/05/2021 Senile nuclear sclerosis 01/29/2013 Hip joint 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 Currently chest pain free; Talked with cardiology - said no need for treatment is patient is treatment free Plan: Continue to monitor Ulcer of perianal area 07/03/201205/05 Overview: Present on admission Dieulafoy lesion (hemorrhagic) of intestine 07/03/2012 05/05/2021 Overview: Hx: Seen on EGD 06/30 - lesion clipped Had been on multiple NSAIDS; Steroids; previously for pericarditis. 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 Plan: Monitor H&H Q8H, transfuse as necessary, keep Hb>8 Consult IR for further intervention Protonix gtt for now, will switch to protonix 40mg bid when Hb is stable after 48-72 hours GI on board, appreciate their recs MSSA (methicillin susceptibl e Staphylococcus aureus) infection 07/03/2012 05/05/2021 Overview: Hx: MSSA infection of serosal fluids collection in L chest wall. S/P I/D on 06/19. On IV oxacillin till and then dc'ed on 06/23 with a 10 day course of Dicloxacillin. 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 Currently chest pain free; However, there is a high chance of recurrence since treatment has been on hold. Giving him steroid might actually put him at more risk of re bleeding. NSAID'S not an option for now. Plan: Consider Colchicine. If patient is to be restarted on AC, Colchicine has to be held given interaction with Coumadin. 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 DVT prophylaxis 07/03/2012 05/05/2021 Overview: Plan: Will hold off on Hep given recent GI bleed IPC's Nephrolithiasis 05/11/2012 05/09/2022 Hyperoxaluria 05/11/2012 12/07/2015 Rhinitis 10/05/2011 05/09/2022 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 05/05/2021 skilled nursing (current) use of anticoagulants 03/18/2011 05/05/2021 Overview: PCC referring MD: Michael Mcmahan Anticoagulation management encounter 2010 05/05/2021 Other and unspecified postsu rgical nonabsorption 08/25/2010 05/05/2021 Wound check, abscess 08/25/2010 022 Hypokalemia 06/16/2010 05/05/2021 Overview: Borderline K+ at 3.6 today. Discontinue own potassium. Initiate K-dur 40meq daily. Obtain K in the AM06/17: K+ 4.1 today Will continue K-Dur 40 meq on discharge. // Hypomagnesemia 06/15/2010 05/05/2021 Overview: 06/15/2010: Magnesium 1.8 this am. Magnesium 400mg daily ordered. Mag draw in am06/16: Magnesium 1.9 today. Mag OX increased to 400mg BID. Mag draw in AM. 06/17: Magnesium 2.0 today. Will continue Mag OX 400mg BID at home. Mag blood draw on Monday. // Retinal detachment with reti nal defect, unspecified 06/14/2010 05/05/2021 Anticoagulation monitoring, INR range 2-3 06/14/2010 09/28/2012 Overview: ECG on admission: AF, [id number] on tele w/ pt in bed QT/QTc: 380/460 Previous AAD: N/A Coumadin dose: 7.5mg daily INRs: see epic, therapeutic since 05/20/10. Pt goes to [facility]. CrCl:greater than 100 Will start Tikosyn per Dr Courtney Grady Plan for DCC if the pt remains in AF, IC in chart. 06/15: INR 2.9 today. Continue on Coumadin with INR check in the AM. 06/16: INR 3.1 today. Continue Coumadin. INR in the am/ 06/17: INR 3.4 today. Instructed patient to take 5mg today. INR check on Monday at [facility]// . Pulmonary embolism 03/01/2010 2 DVT (deep venous thrombosis) 01/12/2010 05/05/2021 Atrial fibrillation 11/03/2009 11/06/19 19 Overview: Hx: Persistent A.fib s/p Mini MAZE 05/2012. Currently in sinus. Had previously failed NATHAN's and DCC x5 Assessment: Currently in Sinus On amiodarone 300mg daily for 4 weeks from D/C can now switch to 200mg daily Plan: 200 mg daily amiodarone CHADS2 score of 1, with the h/o GI bleed will hold off on anticoagulation Morbid obesity 10/14/2009 02/20/2014 Overview: s/p Gastric bypass surgery Encounter for dietary counse ling and surveillance 10/14/2009 05/05/2021 Eating disorder, unspecified 07/01/2009 05/12/2023 Other specified disease of sebaceous glands 06/11/2008 05/05/2021 Corns and callosities 06/11/20082021 Contusion of foot 06/11/2008 05/05/2021 Torn rotator cuff 05/09/2022 documented as of this encounter (statuses as of 07/12/2023) [facility] Plan note No data available for this section [facility] Evaluation noteNo assessment information available [facility] Work Phone: Evaluation note* Diagnosis Medication management Encounter for long-term (current) use of other medications documented in this encounter [facility] note* Diagnosis BPH with urinary obstruction Hypertrophy of prostate with urinary obstruction and other lower urinary tract symptoms (LUTS) Major depressive disorder, recurrent episode, moderate (HCC) Major depressive disorder, recurrent episode, moderate Generalized anxiety disorder documented in this encounter [facility]* Diagnosis Orthostatic hypotension- Primary Impaired glucose metabolism Impaired glucose tolerance test Frequent falls Personal history of fall documented in this encounter [facility] note* Diagnosis Hyperlipidemia, unspecified hyperlipidemia type- Primary Gastric bypass status for obesity Bariatric surgery status documented in this encounter [facility] note* Diagnosis Encounter for monitoring digoxin therapy- Primary Encounter for therapeutic drug monitoring Hyperlipidemia, unspecified hyperlipidemia type Chronic combined systolic and diastolic congestive heart failure (HCC) Chronic combined systolic and diastolic heart failure Atrial fibrillation with RVR (HCC) Atrial fibrillation Syncope, unspecified syncope type Orthostatic hypotension Exertional dyspnea Other dyspnea and respiratory abnormality documented in this encounter [facility] note* Diagnosis Moderate anxiety- Primary Moderate episode of recurrent major depressive disorder (HCC) documented in this encounter [facility] note* Diagnosis Major depressive disorder, recurrent episode, moderate (HCC)- Primary Major depressive disorder, recurrent episode, moderate LANA (generalized anxiety disorder) Generalized anxiety disorder Chronic post-traumatic stress disorder (PTSD) documented in this encounter [facility] note* Diagnosis Atrial fibrillation with RVR (HCC)- Primary Atrial fibrillation Hyperlipidemia, unspecified hyperlipidemia type Syncope, unspecified syncope type Orthostatic hypotension Encounter for monitoring digoxin therapy Encounter for therapeutic drug monitoring Major depressive disorder, recurrent episode, moderate (HCC) Major depressive disorder, recurrent episode, moderate documented in this encounter [facility] note* Diagnosis Plantar fascial fibromatosis of right foot- Primary Multiple hemangiomas Hemangioma of unspecified site documented in this encounter [facility]* Diagnosis Gastric bypass status for obesity Bariatric surgery status Major depressive disorder, recurrent episode, moderate (HCC) Major depressive disorder, recurrent episode, moderate Generalized anxiety disorder Hyperlipidemia, unspecified hyperlipidemia type documented in this encounter [facility] note* Diagnosis Atrial fibrillation with RVR (HCC)- Primary Atrial fibrillation Chronic combined systolic and diastolic congestive heart failure (HCC) Chronic combined systolic and diastolic heart failure Atrial fibrillation, unspecified type (HCC) documented in this encounter [facility] note* Diagnosis Atrial fibrillation with RVR (HCC)- Primary Atrial fibrillation Syncope, unspecified syncope type documented in this encounter [facility] note* Diagnosis Major depressive disorder, recurrent episode, moderate (HCC) Major depressive disorder, recurrent episode, moderate Generalized anxiety disorder documented in this encounter [facility] note* Diagnosis Medicare annual wellness visit, subsequent- Primary Routine general medical examination at a [facility] facility Varicose veins of both legs with edema Atrial fibrillation with RVR (HCC) Atrial fibrillation Major depressive disorder, recurrent episode, moderate (HCC) Major depressive disorder, recurrent episode, moderate Hyperlipidemia, unspecified hyperlipidemia type Impaired fasting glucose Vitamin D deficiency Unspecified vitamin D deficiency documented in this encounter [facility] note* Diagnosis Major depressive disorder, recurrent episode, moderate (HCC)- Primary Major depressive disorder, recurrent episode, moderate LANA (generalized anxiety disorder) Generalized anxiety disorder Chronic post-traumatic stress disorder (PTSD) documented in this encounter [facility] note* Diagnosis Impacted cerumen, left ear- Primary Generalized anxiety disorder Balanitis Balanoposthitis documented in this encounter [facility] note* Diagnosis Arthritis of xxtjzlpp-ukdzoatbg-ktmkxafsz joint of left hand- Primary [facility]* Diagnosis Arthritis of kogznxgp-bggiiboye-sexvvobdo joint of left hand [facility]* Diagnosis Arthritis of cutnkiug-tfxeomnul-sfeeyhtdi joint of left hand [facility]* Diagnosis Arthritis of ldrxggsw-kyyuqoofq-ouvetrumc joint of left hand- Primary [facility]* Diagnosis Arthritis of crbsvrfz-evxhiecoe-vfkusvjzk joint of left hand- Primary [facility]* Diagnosis Left hand pain- Primary Pain in soft tissues of limb [facility]* Diagnosis Arthritis of ildqxrsi-qjyfeqtpc-eejzzudzd joint of left hand- Primary [facility]* Diagnosis Left hand pain Pain in soft tissues of limb [facility] Diagnosis Atrial fibrillation with RVR (HCC)- Primary Atrial fibrillation Impaired fasting glucose Chronic combined systolic and diastolic congestive heart failure (HCC) Chronic combined systolic and diastolic heart failure Stage 1 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 ([facility]) Other chronic pulmonary embolism without acute cor pulmonale ([facility]) documented in this encounter [facility] note* Diagnosis Arthritis of wslfdbmc-dsyafrpsx-yondgcuji joint of left hand- Primary [facility] Diagnosis Arthritis of oyiwgkqo-xgpjbemhx-gbztdjski joint of left hand- Primary [facility] Diagnosis Arthritis of buedigab-rpfkyrodp-mfofmjtrk joint of left hand- Primary documented in this encounter [facility] note* Diagnosis Arthritis of jjsgtpwh-plapjlucq-ecspnvcyz joint of left hand- Primary documented in this encounter [facility] note* Diagnosis Arthritis of hlpfzjzi-ayahlbzfy-xgpoihkdw joint of left hand- Primary documented in this encounter [facility] note* Diagnosis Balanitis- Primary Balanoposthitis Impaired fasting glucose Hyperlipidemia, unspecified hyperlipidemia type Generalized anxiety disorder Major depressive disorder, recurrent episode, moderate (HCC) Major depressive disorder, recurrent episode, moderate Urge incontinence of urine Urge incontinence LEXIE (obstructive sleep apnea) Obstructive sleep apnea (adult) (pediatric) documented in this encounter [facility] note* Diagnosis Balanitis Balanoposthitis Urge incontinence of urine Urge incontinence documented in this encounter [facility] note* Diagnosis Generalized anxiety disorder documented in this encounter [facility] note* Diagnosis Tibial pain- Primary Disorder of bone and cartilage, unspecified Idiosyncratic reaction to medication after proper dose, subsequent encounter Pruritus Unspecified pruritic disorder documented in this encounter [facility] note* Diagnosis Major depressive disorder, recurrent episode, moderate (HCC) Major depressive disorder, recurrent episode, moderate Generalized anxiety disorder documented in this encounter [facility] note* Diagnosis Arthritis of qnbjamca-snxlvykst-mnjxxzrna joint of left hand- Primary Primary osteoarthritis of first carpometacarpal joint of left hand documented in this encounter [facility] note* Diagnosis Edema of both legs- Primary Edema Tinea pedis of right foot Dermatophytosis of foot Special screening for malignant neoplasms, colon documented in this encounter [facility] note* Diagnosis Urge incontinence of urine- Primary Urge incontinence Balanitis Balanoposthitis Screening for colon cancer- Primary Special screening for malignant neoplasms, colon [facility] Diagnosis Screening for colon cancer- Primary Special screening for malignant neoplasms, colon Special screening for malignant neoplasms, colon [facility]* Diagnosis Atrial fibrillation with RVR (HCC)- Primary Atrial fibrillation Major depressive disorder, recurrent episode, moderate (HCC) Major depressive disorder, recurrent episode, moderate 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) Atrial fibrillation, unspecified type (HCC) [facility]* Diagnosis Urge incontinence of urine Urge incontinence [facility] Diagnosis Medicare annual wellness visit, subsequent- Primary Routine general medical examination at a health care facility Atrial fibrillation with RVR (HCC) Atrial fibrillation BPH with urinary obstruction Hypertrophy of prostate with urinary obstruction and other lower urinary tract symptoms (LUTS) skilled nursing current use of anticoagulant Long-term (current) use of anticoagulants Bursitis of other bursa of right hip Major depressive disorder, recurrent episode, moderate (HCC) Major depressive disorder, recurrent episode, moderate Generalized anxiety disorder Hyperlipidemia, unspecified hyperlipidemia type Impaired fasting glucose Cervicalgia [facility]* Diagnosis Bursitis of other bursa of right hip [facility]* Diagnosis Cervical spine pain- Primary Cervical spinal stenosis Spinal stenosis in cervical region Spondylolisthesis of cervical region Cervical spondylosis Cervical spondylosis without myelopathy Cervical arthritis with myelopathy [facility]* Diagnosis Major depressive disorder, recurrent severe without psychotic features (HCC)- Primary Major depressive disorder, recurrent episode, severe, without mention of psychotic behavior Generalized anxiety disorder Chronic post-traumatic stress disorder (PTSD) [facility]* Diagnosis Atrial fibrillation with RVR (HCC)- Primary Atrial fibrillation Atrial fibrillation, unspecified type (HCC) Syncope, unspecified syncope type 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) Major depressive disorder, recurrent episode, moderate (HCC) Major depressive disorder, recurrent episode, moderate Chronic combined systolic and diastolic congestive heart failure (HCC) Chronic combined systolic and diastolic heart failure Other chronic pulmonary embolism without acute cor pulmonale (HCC) [facility]* Diagnosis Recurrent major depressive disorder, in partial remission (HCC)- Primary Generalized anxiety disorder Chronic post-traumatic stress disorder (PTSD) [facility]* Diagnosis Other chronic pulmonary embolism without acute cor pulmonale (HCC) [facility]* Diagnosis Atrial fibrillation with RVR (HCC)- Primary Atrial fibrillation Syncope, unspecified syncope type Orthostatic hypotension Encounter for monitoring digoxin therapy Encounter for therapeutic drug monitoring Hyperlipidemia, unspecified hyperlipidemia type LEXIE (obstructive sleep apnea) Obstructive sleep apnea (adult) (pediatric) Gastric bypass status for obesity Bariatric surgery status Varicose veins of both legs with edema Impaired fasting glucose Obesity, Class I, BMI 30-34.9 Obesity, unspecified documented in this encounter [facility] note* Diagnosis Urge incontinence of urine Urge incontinence documented in this encounter [facility] note* Diagnosis Hyperlipidemia, unspecified hyperlipidemia type documented in this encounter [facility] note* Diagnosis Balanitis Balanoposthitis documented in this encounter [facility] note* Diagnosis Recurrent major depressive disorder, in partial remission (HCC)- Primary Generalized anxiety disorder Chronic post-traumatic stress disorder (PTSD) documented in this encounter [facility] note* Diagnosis Hyperlipidemia, unspecified hyperlipidemia type- Primary LEXIE (obstructive sleep apnea) Obstructive sleep apnea (adult) (pediatric) Balanitis Balanoposthitis Impaired fasting glucose Atrial fibrillation with RVR ([facility]) Atrial fibrillation Vitamin D deficiency Unspecified vitamin D deficiency documented in this encounter [facility] note* Diagnosis Tibial pain Disorder of bone and cartilage, unspecified documented in this encounter [facility] note* Diagnosis Generalized anxiety disorder documented in this encounter [facility] note* Diagnosis Left wrist pain- Primary Pain in joint, forearm documented in this encounter [facility] note* Diagnosis Left wrist pain Pain in joint, forearm documented in this encounter [facility] note* Diagnosis Arthritis of uyhiidcu-wjiuqmiyp-ekqaeapmh joint of left hand- Primary documented in this encounter [facility] note* Diagnosis Wrist pain, left- Primary Pain in joint, forearm Primary osteoarthritis of left wrist documented in this encounter [facility] note* Diagnosis Arthritis of tilkbyqc-agjxrenwp-ybbyvoygd joint of left hand documented in this encounter [facility] note* Diagnosis Atrial fibrillation with RVR ([facility])- Primary Atrial fibrillation Syncope, unspecified syncope type Orthostatic hypotension LEXIE (obstructive sleep apnea) Obstructive sleep apnea (adult) (pediatric) Hyperlipidemia, unspecified hyperlipidemia type Gastric bypass status for obesity Bariatric surgery status Obesity, Class I, BMI 30-34.9 Obesity, unspecified Impaired fasting glucose Vitamin D deficiency Unspecified vitamin D deficiency Major depressive disorder, recurrent episode, moderate (HCC) Major depressive disorder, recurrent episode, moderate BPH with urinary obstruction Hypertrophy of prostate with urinary obstruction and other lower urinary tract symptoms (LUTS) Varicose veins of both legs with edema Obesity, Class II, BMI 35-39.9 Obesity, unspecified Stage 1 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 ([facility]) [facility]* Diagnosis Medicare annual wellness visit, subsequent- Primary Routine general medical examination at a health care facility Hyperlipidemia, unspecified hyperlipidemia type Balanitis Balanoposthitis Urge incontinence of urine Urge incontinence Gastric bypass status for obesity Bariatric surgery status Chronic combined systolic and diastolic congestive heart failure (HCC) Chronic combined systolic and diastolic heart failure Atrial fibrillation with RVR (HCC) Atrial fibrillation Impaired fasting glucose Major depressive disorder, recurrent episode, moderate (HCC) Major depressive disorder, recurrent episode, moderate Generalized anxiety disorder Stage 1 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 ([facility]) LEXIE (obstructive sleep apnea) Obstructive sleep apnea (adult) (pediatric) BPH with urinary obstruction Hypertrophy of prostate with urinary obstruction and other lower urinary tract symptoms (LUTS) [facility]* Diagnosis Hyperlipidemia, unspecified hyperlipidemia type [facility]* Diagnosis Chronic post-traumatic stress disorder (PTSD)- Primary Generalized anxiety disorder Major depressive disorder, recurrent severe without psychotic features (HCC) Major depressive disorder, recurrent episode, severe, without mention of psychotic behavior Insomnia due to other mental disorder Encounter for long-term (current) use of medications Encounter for long-term (current) use of other medications Psychosocial stressors Other psychological or physical stress, not elsewhere classified [facility]* Diagnosis Acute cough- Primary Acute non-recurrent frontal sinusitis Stage 1 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 ([facility]) Acute cough [facility]* Diagnosis Acute cough documented in this encounter [facility] note* Diagnosis Bicipital tendinitis of right shoulder- Primary Sprain of right rotator cuff capsule, initial encounter Impingement syndrome of right shoulder [facility]* Diagnosis Excessive bleeding- Primary [facility]* Diagnosis Generalized anxiety disorder- Primary Psychosocial stressors Other psychological or physical stress, not elsewhere classified Chronic post-traumatic stress disorder (PTSD) Major depressive disorder, recurrent severe without psychotic features (HCC) Major depressive disorder, recurrent episode, severe, without mention of psychotic behavior Insomnia due to other mental disorder Encounter for long-term (current) use of medications Encounter for long-term (current) use of other medications documented in this encounter [facility] note* Diagnosis Chronic combined systolic and diastolic congestive heart failure (HCC)- Primary Chronic combined systolic and diastolic heart failure documented in this encounter [facility] note* Diagnosis Urinary frequency- Primary documented in this encounter [facility] note* Diagnosis Chronic obstructive pulmonary disease, unspecified COPD type (HCC) documented in this encounter [facility] note* Diagnosis Chronic obstructive pulmonary disease, unspecified COPD type (HCC) documented in this encounter [facility] note* Diagnosis Cough, unspecified type documented in this encounter [facility] note* Diagnosis Cough variant asthma (HCC)- Primary Cough variant asthma Cough, unspecified type documented in this encounter [facility] note* Diagnosis Onset Date Resolution Status Admit Date Atrial fibrillation noneactive September 18, 2024 10:53am [facility] Work Phone: [facility]* Diagnosis APPOINTMENT CANCELLED- Primary [facility]* Diagnosis Stage 1 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 ([facility])- Primary documented in this encounter [facility] note* Diagnosis Fall, initial encounter- Primary Acute midline low back pain without sciatica Injury of head, initial encounter Acute pain of both shoulders skilled nursing (current) use of anticoagulants Long-term (current) use of anticoagulants Acute midline low back pain without sciatica Acute pain of both shoulders documented in this encounter [facility] note* Diagnosis Acute midline low back pain without sciatica Acute pain of both shoulders documented in this encounter [facility] note* Diagnosis Major depressive disorder, recurrent severe without psychotic features ([facility])- Primary Major depressive disorder, recurrent episode, severe, without mention of psychotic behavior Insomnia due to other mental disorder Generalized anxiety disorder Psychosocial stressors Other psychological or physical stress, not elsewhere classified Encounter for long-term (current) use of medications Encounter for long-term (current) use of other medications documented in this encounter [facility] note* Diagnosis Mild intermittent asthma without complication (HCC)- Primary Unspecified asthma Numbness and tingling in right hand Disturbance of skin sensation Left ear pain Otalgia, unspecified Atrial fibrillation with RVR (HCC) Atrial fibrillation Chronic combined systolic and diastolic congestive heart failure (HCC) Chronic combined systolic and diastolic heart failure LEXIE (obstructive sleep apnea) Obstructive sleep apnea (adult) (pediatric) Generalized anxiety disorder Major depressive disorder, recurrent episode, moderate (HCC) Major depressive disorder, recurrent episode, moderate Hyperlipidemia, unspecified hyperlipidemia type Impaired fasting glucose Orthostatic hypotension [facility]* Diagnosis Balanitis- Primary Balanoposthitis Urge incontinence of urine Urge incontinence Screening for genitourinary condition Screening for other and unspecified genitourinary condition [facility]* Diagnosis Generalized anxiety disorder- Primary Psychosocial stressors Other psychological or physical stress, not elsewhere classified Insomnia due to other mental disorder Recurrent major depressive disorder, in partial remission Encounter for long-term (current) use of medications Encounter for long-term (current) use of other medications [facility] No data available for this section [facility] Discharge instructions Additional Instructions If any bleeding direct pressure and ice to the area. Follow-up with your dentist to get a new partial plate made. You may also try [facility] here in [place] to see if they can do that work also.[facility] Work Phone: Reason for referral (narrative)* Diagnostic Procedure Only (Routine) - Closed Specialty Diagnoses / Procedures Referred By Sweetie snowden Referred To Contact XR IMAGING Diagnoses Tibial pain Procedures XR TIBIA FIBULA 2V AP/LAT RIGHT RADIOLOGIC EXAMINATION TIBIA & FIBULA 2 VIEWS Florian Gonzalez MD [address] [place] [address] [place] [address] Referral ID Status Reason Start Date Expiration Date V isits Requested Visits Authorized [id number] Closed Auto-Generate d Referral 12/09/2022 01/08/2024 1 1 [facility] for referral (narrative)* Outpatient Procedure (Routine) - Authorized Specialty Diagnoses / Procedures Referred By Sweetie snowden Referred To Contact [facility] Diagnoses Special screening for malignant neoplasms, colon Procedures COLONOSCOPY SCREENING COLONOSCOPY FLX DX W/COLLJ SPEC WHEN PFRMD Florian Gonzalez MD [address] [place] [address] [facility] [address] [address] Referral ID Status Reason Start Date Expiration Date Visits Requested Visits Authorized [id number] Authorized Auto-Generat ed Referral 02/01/2024 1 1 [facility] for referral (narrative)* Outpatient Procedure (Routine) - Closed Specialty Diagnoses / Procedures Referred By Sweetie snowden Referred To Contact [facility] Diagnoses Special screening for malignant neoplasms, colon Procedures COLONOSCOPY SCREENING COLONOSCOPY FLX DX W/COLLJ [place] [address] [place], [place] [id number] [facility] [place] [id number] Referral ID Status Reason Start Date Expiration Date V isits Requested Visits Authorized [id number] Closed Auto-Generate d Referral 01/31/2023 02/01/2024 1 1 [facility] for referral (narrative)* Diagnostic Procedure Only (Routine) - Closed Specialty Diagnoses / Procedures Referred By Sweetie snowden Referred To Contact XR IMAGING Diagnoses Tibial pain Procedures XR TIBIA FIBULA 2V AP/LAT RIGHT RADIOLOGIC EXAMINATION TIBIA & FIBULA 2 VIEWS Florian Gonzalez MD [address] [place] [address] Xr Imaging [id number] Referral ID Status Reason Start Date Expiration Date V isits Requested Visits Authorized [id number] Closed Auto-Generate d Referral 12/09/2022 01/08/2024 1 1 [facility] for referral (narrative)No reason for referral information availableWMercy Health [facility] Work Phone: Reason for visit Narrative* Consultation (Routine) - Authorized Specialty Diagnoses / Procedures Referred By Sweetie snowden Referred To Contact Occupational Therapy Diagnoses Arthritis of aqhldeev-zrcuzmcsy-fzhk ezoid joint of left hand Procedures [place] OFFICE/OUTPATIENT NEW HIGH MDM 60-74 MINUTES BackerBerenice PA-C [address] [facility] [address] [place] [address] [facility] Efrain Ot [address] [address] [place] [address] Referral ID Status Reason Start Date Expiration Date Visits Requested Visits Authorized [id number] Authorized Specialty Services Required 05/31/2022 05/31/2023 99 99 [facility] for visit Narrative* Outpatient Procedure (Routine) - Closed Specialty Diagnoses / Procedures Referred By Contac t Referred To Contact [facility] Diagnoses Special screening for malignant neoplasms, colon Procedures COLONOSCOPY SCREENING COLONOSCOPY FLX DX W/COLLJ SPEC WHEN PFRMD Florian Gonzalez MD [address] [place] [address] [facility] [place] [address] [place] [address] Referral ID Status Reason Start Date Expiration Date V isits Requested Visits Authorized [id number] Closed Auto-Generate d Referral 01/31/2023 02/01/2024 1 1 [facility] for visit Narrative* Diagnostic Procedure Only (Routine) - Closed Specialty Diagnoses / Procedures Referred By Contac t Referred To Contact XR IMAGING Diagnoses Tibial pain Procedures XR TIBIA FIBULA 2V AP/LAT RIGHT RADIOLOGIC EXAMINATION TIBIA & FIBULA 2 VIEWS Florian Gonzalez MD [address] [place] [address] [place] [address] Referral ID Status Reason Start Date Expiration Date V isits Requested Visits Authorized [id number] Closed Auto-Generate d Referral 12/09/2022 01/08/2024 1 1 [facility] for visit Narrative* Diagnostic Procedure Only (Urgent) - Closed Specialty Diagnoses / Procedures Referred By Contac t Referred To Contact XR IMAGING Diagnoses Acute pain of both shoulders Procedures XR SHOULDER GENERAL 3V OR MORE AP/TRUE AP/OTHER LEFT RADEX SHOULDER COMPLETE MINIMUM 2 VIEWS Shea Etienne, TEXTILE [employer]ACING GR[employer]ER [address] [place] [address] Phone: tel: fax: [place] [address] Referral ID Status Reason Start Date Expiration Date V isits Requested Visits Authorized [id number] Closed Auto-Generate d Referral 10/09/2024 11/08/2025 1 1 [facility] Summary Purpose Family History No Family History Records FoundNo Family History Records FoundNo Family History Records FoundNo Family History Records FoundNo Family History Records FoundNo Family History Records FoundNo Family History Records FoundNo Family History Records FoundNo Family History Records FoundNo Family History Records FoundNo Family History Records FoundNo Family History Records FoundNo Family History Records Found Advance Directives No Advanced Directives Records Found Advance Directive Response Recorded Date/ Time Living Will Yes June 30, 2021 4:16pm Power of Contracts Paralegal Yes June 30 4:16pm Documents on File Type Date Recorded Patient Generation Manager Expl anation Advance Directive(s) 04/20/2020 12:07 PM Advance Directive(s) 04/07/2020 9:40 AM Advance Directive(s) 06/25/2019 8:01 PM Advance Directive(s) 06/20/2019 3:19 PM Advance Directive(s) 06/12/2019 12:50 PM Advance Directive(s) 06/10/2019 11:02 AM Advance Directive(s) 06/06/2019 9:10 AM Advance Directive(s) 04/11/2019 7:07 AM Advance Directive(s) 12/13/2018 1:39 PM Advance Directive(s) 11/02/2018 2:21 PM Advance Directive(s) 05/02/2018 7:21 PM Advance Directive(s) 04/06/2018 7:01 AM Advance Directive(s) 03/19/2018 1:34 PM Advance Directive(s) 03/06/2018 11:32 AM Advance Directive(s) 01/09/2018 8:20 AM Advance Directive(s) 12/13/2017 6:57 PM Advance Directive(s) 12/18/2009 9:03 PM Documents on File Type Date Recorded Patient Generation Manager Expl anation Advance Directive(s) 12/18/2009 9:03 PM Advance Directive Response Recorded Date/ Time Living Will Yes January 29 5:30am Power of Contracts Paralegal Yes January 29, 2022 5:30am Name of Medical Power of Contracts Paralegal TEREZA Valdez January 29, 2022 5:30am Advance Directive Response Recorded Date/ Time Name of Medical Power of Contracts Paralegal TEREZA PAINTER R January 29, 2022 4:30am Name of Medical Power of Contracts Paralegal Tereza Painter r March 13, 2022 11:17pm Living Will Yes March 13 11:17pm Power of Contracts Paralegal Yes March 13, 2022 11:17pm Documents on File Type Date Recorded Patient Generation Manager Expl anation Advance Directive(s) 12/18/2009 9:03 PM Latest Code Status on File Code Status Date Activated Date Inactivated Comments Full Code 07/01/2022 10:25 AM 07/01/2022 4:42 PM Latest Code Status on File Code Status Date Activated Date Inactivated Comments Full Code 07/01/2022 10:25 AM 07/01/2022 4:42 PM Advance Directive Response Recorded Date/ Time Living Will Yes July 22, 2024 4:06pm Do you have a Healthcare Power of Contracts Paralegal? Yes July 22, 2024 4:06pm Name of Medical Power of Contracts Paralegal tereza July 22, 2024 4:06pm Chief Complaint and Reason for Visit Chief Complaint Diplopia DIZZINESS Chief Complaint NECK PAIN Chief Complaint NECK PAIN Foreign Body Chief Complaint Admit Date bleeding scrotum July 22, 2024 4:0 5pm Chief Complaint Admit Date bleeding scrotum July 22, 2024 4:0 5pm Atrial fibrillation September 18, 2024 10:5 3am Reason for Visit Admit Date Atrial fibrillation September 18, 2024 10:5 3am Reason for Referral Specialty Diagnoses / Procedures Referred By Sweetie snowden Referred To Contact Radiology Diagnoses Spondylolisthesis of cervical region Cervical spondylosis Procedures MR cervical spine wo Jerry Adames DO [address] [place] [address] Referral ID Status Reason Start Date Expiration Date V isits Requested Visits Authorized [id number] Pending Review 05/15/2023 11/11/2023 1 1 Specialty Diagnoses / Procedures Referred By Sweetie snowden Referred To Contact [facility] Diagnoses Bursitis of other bursa of right hip Procedures CONSULT TO PHYSICAL THERAPY PHYSICAL THERAPY EVALUATION HIGH COMPLEX 45 MINS Florian Gonzalez MD [address] [place] [id number] [facility] [address] [place] [address] Referral ID Status Reason Start Date Expiration Date Visits Requested Visits Authorized [id number] Authorized Auto-Generat ed Referral 04/10/2023 04/09/2024 99 99 Specialty Diagnoses / Procedures Referred By Contac t Referred To Contact Urology Diagnoses Balanitis Urge incontinence of urine Procedures CONSULT TO UROLOGY OFFICE/OUTPATIENT [facility] 60-74 MINUTES Florian Gonzalez MD [address] [place] [address] Referral ID Status Reason Start Date Expiration Date Visits Requested Visits Authorized [id number] Authorized PCP Requested Referral 11/08/2022 11/08/2023 1 1 Specialty Diagnoses / Procedures Referred By Contac t Referred To Contact Ent - Otolaryngology Diagnoses Impacted cerumen, left ear Procedures CONSULT TO ENT Florian Gonzalez MD [address] [place] [address] Referral ID Status Reason Start Date Expiration Date Visits Requested Visits Authorized [id number] Ref Not Required PCP Requested Referral 06/13/2022 06/13/2023 1 1 Specialty Diagnoses / Procedures Referred By Contac t Referred To Contact Psychology Diagnoses Major depressive disorder, recurrent episode, moderate (HCC) LANA (generalized anxiety disorder) Chronic post-traumatic stress disorder (PTSD) Procedures CONSULT TO PSYCHOLOGY OFFICE/OUTPATIENT [facility] 60-74 MINUTES Quincy Alonzo, TEXTILE BROKER.FACING GRINDER [address] [place] [address] Referral ID Status Reason Start Date Expiration Date Visits Requested Visits Authorized [id number] Pending Review PCP Requested Referral 05/18/2022 05/18/2023 1 1 Medications Administered Section Inactive Administered Medications - up to 3 most recent administrations Medication Order MAR Action Action Date Dose Rate Site fentaNYL 50 mcg/mL 25-100 mcg injection (SUBLIMAZE) 25-100 mcg, INTRAVENOUS, DIRECTED, Starting on Mon02/22/23 at 0930, Until Mon02/22/23 at 1329, DOSING DIRECTED BY PHYSICIAN FOR PROCEDURAL SEDATION ONLY, Intraprocedure Given 02/22/2023 9:27 AM EST 50 mcg Given 02/22/2023 9:15 AM EST 50 mcg lactated ringers iv infusion 75 mL/hr, INTRAVENOUS, CONTINUOUS, Starting on Mon02/22/23 at 0900, Until Mon02/22/23 at 0948, Preprocedure New Bag/Syringe/Bot tle 02/22/2023 8:50 AM EST 75 mL/hr 75 mL/hr Forearm, Right midazolam 1-5 mg injection (VERSED) 1-5 mg, INTRAVENOUS, DIRECTED, Starting on Mon02/22/23 at 0930, Until Mon02/22/23 at 1329, DOSING DIRECTED BY PHYSICIAN FOR PROCEDURAL SEDATION ONLY, Intraprocedure Given 02/22/2023 9:15 AM EST 3 mg Additional Source Comments (unrecognized sect ion and content) No Status Records FoundNo Status Records FoundNo Status Records FoundNo Status Records FoundNo Status Records FoundNo Status Records FoundNo Status Records FoundNo Status Records FoundNo Status Records FoundNo Status Records FoundNo Status Records FoundNo Status Records FoundNo Status Records Found INFORMATION SOURCE (unrecogn ized section and content) DATE CREATED AUTHOR 03/02/2019 [facility] DATE CREATED AUTHOR AUTHOR'S ORGANIZ ATION 06/24/2019 [facility] DATE CREATED AUTHOR AUTHOR'S ORGANIZ ATION 04/07/2020 [facility] DATE CREATED AUTHOR AUTHOR'S ORGANIZ ATION 04/24/2020 [facility] DATE CREATED AUTHOR AUTHOR'S ORGANIZ ATION 02/13/2022 [facility] DATE CREATED AUTHOR AUTHOR'S ORGANIZ ATION 02/18/2022 [facility] DATE CREATED AUTHOR AUTHOR'S ORGANIZ ATION 02/18/2022 [facility] DATE CREATED AUTHOR AUTHOR'S ORGANIZ ATION 01/21/2023 [facility] DATE CREATED AUTHOR AUTHOR'S ORGANIZ ATION 07/12/2023 [facility] DATE CREATED AUTHOR AUTHOR'S ORGANIZ ATION 09/10/2023 [facility] DATE CREATED AUTHOR AUTHOR'S ORGANIZ ATION 05/28/2024 [facility] DATE CREATED AUTHOR AUTHOR'S ORGANIZ ATION 09/20/2024 [facility] DATE CREATED AUTHOR AUTHOR'S ORGANIZ ATION 12/29/2024 [facility] Goals (unrecognized section and content) Goals may be documented in a n alternate sectionGoals may be documented in an alternate section No data available for this sectionGoals may be documented in an alternate sectionGoals may be documented in an alternate sectionGoals may be documented in an alternate section Source Comments (unrecognize d section and content) In the event this informatio n is protected by the Federal Confidentiality of Alcohol and Drug Abuse Patient Records regulations: The Federal rules restrict any use of the information to criminally investigate or prosecute any alcohol or drug abuse patient.[facility] System[facility] the event this information is protected by the Federal Confidentiality of Alcohol and Drug Abuse Patient Records regulations: The Federal rules restrict any use of the information to criminally investigate or prosecute any alcohol or drug abuse patient.[facility] SystemIn the event this information is protected by the Federal Confidentiality of Alcohol and Drug Abuse Patient Records regulations: The Federal rules restrict any use of the information to criminally investigate or prosecute any alcohol or drug abuse patient.[facility] SystemIn the event this information is protected by the Federal Confidentiality of Alcohol and Drug Abuse Patient Records regulations: The Federal rules restrict any use of the information to criminally investigate or prosecute any alcohol or drug abuse patient.[facility] SystemIn the event this information is protected by the Federal Confidentiality of Alcohol and Drug Abuse Patient Records regulations: The Federal rules restrict any use of the information to criminally investigate or prosecute any alcohol or drug abuse patient.[facility] SystemIn the event this information is protected by the Federal Confidentiality of Alcohol and Drug Abuse Patient Records regulations: The Federal rules restrict any use of the information to criminally investigate or prosecute any alcohol or drug abuse patient.[facility] SystemIn the event this information is protected by the Federal Confidentiality of Alcohol and Drug Abuse Patient Records regulations: The Federal rules restrict any use of the information to criminally investigate or prosecute any alcohol or drug abuse patient.[facility] SystemIn the event this information is protected by the Federal Confidentiality of Alcohol and Drug Abuse Patient Records regulations: The Federal rules restrict any use of the information to criminally investigate or prosecute any alcohol or drug abuse patient.[facility] SystemIn the event this information is protected by the Federal Confidentiality of Alcohol and Drug Abuse Patient Records regulations: The Federal rules restrict any use of the information to criminally investigate or prosecute any alcohol or drug abuse patient.[facility] SystemIn the event this information is protected by the Federal Confidentiality of Alcohol and Drug Abuse Patient Records regulations: The Federal rules restrict any use of the information to criminally investigate or prosecute any alcohol or drug abuse patient.[facility] SystemIn the event this information is protected by the Federal Confidentiality of Alcohol and Drug Abuse Patient Records regulations: The Federal rules restrict any use of the information to criminally investigate or prosecute any alcohol or drug abuse patient.[facility] SystemIn the event this information is protected by the Federal Confidentiality of Alcohol and Drug Abuse Patient Records regulations: The Federal rules restrict any use of the information to criminally investigate or prosecute any alcohol or drug abuse patient.[facility] SystemIn the event this information is protected by the Federal Confidentiality of Alcohol and Drug Abuse Patient Records regulations: The Federal rules restrict any use of the information to criminally investigate or prosecute any alcohol or drug abuse patient.[facility] SystemIn the event this information is protected by the Federal Confidentiality of Alcohol and Drug Abuse Patient Records regulations: The Federal rules restrict any use of the information to criminally investigate or prosecute any alcohol or drug abuse patient.[facility] SystemIn the event this information is protected by the Federal Confidentiality of Alcohol and Drug Abuse Patient Records regulations: The Federal rules restrict any use of the information to criminally investigate or prosecute any alcohol or drug abuse patient.[facility] SystemIn the event this information is protected by the Federal Confidentiality of Alcohol and Drug Abuse Patient Records regulations: The Federal rules restrict any use of the information to criminally investigate or prosecute any alcohol or drug abuse patient.[facility] SystemIn the event this information is protected by the Federal Confidentiality of Alcohol and Drug Abuse Patient Records regulations: The Federal rules restrict any use of the information to criminally investigate or prosecute any alcohol or drug abuse patient.[facility] SystemIn the event this information is protected by the Federal Confidentiality of Alcohol and Drug Abuse Patient Records regulations: The Federal rules restrict any use of the information to criminally investigate or prosecute any alcohol or drug abuse patient.[facility] SystemIn the event this information is protected by the Federal Confidentiality of Alcohol and Drug Abuse Patient Records regulations: The Federal rules restrict any use of the information to criminally investigate or prosecute any alcohol or drug abuse patient.[facility] SystemIn the event this information is protected by the Federal Confidentiality of Alcohol and Drug Abuse Patient Records regulations: The Federal rules restrict any use of the information to criminally investigate or prosecute any alcohol or drug abuse patient.[facility] SystemIn the event this information is protected by the Federal Confidentiality of Alcohol and Drug Abuse Patient Records regulations: The Federal rules restrict any use of the information to criminally investigate or prosecute any alcohol or drug abuse patient.[facility] SystemIn the event this information is protected by the Federal Confidentiality of Alcohol and Drug Abuse Patient Records regulations: The Federal rules restrict any use of the information to criminally investigate or prosecute any alcohol or drug abuse patient.[facility] SystemIn the event this information is protected by the Federal Confidentiality of Alcohol and Drug Abuse Patient Records regulations: The Federal rules restrict any use of the information to criminally investigate or prosecute any alcohol or drug abuse patient.[facility] SystemIn the event this information is protected by the Federal Confidentiality of Alcohol and Drug Abuse Patient Records regulations: The Federal rules restrict any use of the information to criminally investigate or prosecute any alcohol or drug abuse patient.[facility] SystemIn the event this information is protected by the Federal Confidentiality of Alcohol and Drug Abuse Patient Records regulations: The Federal rules restrict any use of the information to criminally investigate or prosecute any alcohol or drug abuse patient.[facility] SystemIn the event this information is protected by the Federal Confidentiality of Alcohol and Drug Abuse Patient Records regulations: The Federal rules restrict any use of the information to criminally investigate or prosecute any alcohol or drug abuse patient.[facility] SystemIn the event this information is protected by the Federal Confidentiality of Alcohol and Drug Abuse Patient Records regulations: The Federal rules restrict any use of the information to criminally investigate or prosecute any alcohol or drug abuse patient.[facility] SystemIn the event this information is protected by the Federal Confidentiality of Alcohol and Drug Abuse Patient Records regulations: The Federal rules restrict any use of the information to criminally investigate or prosecute any alcohol or drug abuse patient.[facility] SystemIn the event this information is protected by the Federal Confidentiality of Alcohol and Drug Abuse Patient Records regulations: The Federal rules restrict any use of the information to criminally investigate or prosecute any alcohol or drug abuse patient.[facility] SystemIn the event this information is protected by the Federal Confidentiality of Alcohol and Drug Abuse Patient Records regulations: The Federal rules restrict any use of the information to criminally investigate or prosecute any alcohol or drug abuse patient.[facility] SystemIn the event this information is protected by the Federal Confidentiality of Alcohol and Drug Abuse Patient Records regulations: The Federal rules restrict any use of the information to criminally investigate or prosecute any alcohol or drug abuse patient.[facility] SystemIn the event this information is protected by the Federal Confidentiality of Alcohol and Drug Abuse Patient Records regulations: The Federal rules restrict any use of the information to criminally investigate or prosecute any alcohol or drug abuse patient.[facility] SystemIn the event this information is protected by the Federal Confidentiality of Alcohol and Drug Abuse Patient Records regulations: The Federal rules restrict any use of the information to criminally investigate or prosecute any alcohol or drug abuse patient.[facility] SystemIn the event this information is protected by the Federal Confidentiality of Alcohol and Drug Abuse Patient Records regulations: The Federal rules restrict any use of the information to criminally investigate or prosecute any alcohol or drug abuse patient.[facility] SystemIn the event this information is protected by the Federal Confidentiality of Alcohol and Drug Abuse Patient Records regulations: The Federal rules restrict any use of the information to criminally investigate or prosecute any alcohol or drug abuse patient.[facility] SystemIn the event this information is protected by the Federal Confidentiality of Alcohol and Drug Abuse Patient Records regulations: The Federal rules restrict any use of the information to criminally investigate or prosecute any alcohol or drug abuse patient.[facility] SystemIn the event this information is protected by the Federal Confidentiality of Alcohol and Drug Abuse Patient Records regulations: The Federal rules restrict any use of the information to criminally investigate or prosecute any alcohol or drug abuse patient.[facility] SystemIn the event this information is protected by the Federal Confidentiality of Alcohol and Drug Abuse Patient Records regulations: The Federal rules restrict any use of the information to criminally investigate or prosecute any alcohol or drug abuse patient.[facility] SystemIn the event this information is protected by the Federal Confidentiality of Alcohol and Drug Abuse Patient Records regulations: The Federal rules restrict any use of the information to criminally investigate or prosecute any alcohol or drug abuse patient.[facility] SystemIn the event this information is protected by the Federal Confidentiality of Alcohol and Drug Abuse Patient Records regulations: The Federal rules restrict any use of the information to criminally investigate or prosecute any alcohol or drug abuse patient.[facility] SystemIn the event this information is protected by the Federal Confidentiality of Alcohol and Drug Abuse Patient Records regulations: The Federal rules restrict any use of the information to criminally investigate or prosecute any alcohol or drug abuse patient.[facility] SystemIn the event this information is protected by the Federal Confidentiality of Alcohol and Drug Abuse Patient Records regulations: The Federal rules restrict any use of the information to criminally investigate or prosecute any alcohol or drug abuse patient.[facility] SystemIn the event this information is protected by the Federal Confidentiality of Alcohol and Drug Abuse Patient Records regulations: The Federal rules restrict any use of the information to criminally investigate or prosecute any alcohol or drug abuse patient.[facility] SystemIn the event this information is protected by the Federal Confidentiality of Alcohol and Drug Abuse Patient Records regulations: The Federal rules restrict any use of the information to criminally investigate or prosecute any alcohol or drug abuse patient.[facility] SystemIn the event this information is protected by the Federal Confidentiality of Alcohol and Drug Abuse Patient Records regulations: The Federal rules restrict any use of the information to criminally investigate or prosecute any alcohol or drug abuse patient.[facility] SystemIn the event this information is protected by the Federal Confidentiality of Alcohol and Drug Abuse Patient Records regulations: The Federal rules restrict any use of the information to criminally investigate or prosecute any alcohol or drug abuse patient.[facility] SystemIn the event this information is protected by the Federal Confidentiality of Alcohol and Drug Abuse Patient Records regulations: The Federal rules restrict any use of the information to criminally investigate or prosecute any alcohol or drug abuse patient.[facility] SystemIn the event this information is protected by the Federal Confidentiality of Alcohol and Drug Abuse Patient Records regulations: The Federal rules restrict any use of the information to criminally investigate or prosecute any alcohol or drug abuse patient.[facility] SystemIn the event this information is protected by the Federal Confidentiality of Alcohol and Drug Abuse Patient Records regulations: The Federal rules restrict any use of the information to criminally investigate or prosecute any alcohol or drug abuse patient.[facility] SystemIn the event this information is protected by the Federal Confidentiality of Alcohol and Drug Abuse Patient Records regulations: The Federal rules restrict any use of the information to criminally investigate or prosecute any alcohol or drug abuse patient.[facility] the event this information is protected by the Federal Confidentiality of Alcohol and Drug Abuse Patient Records regulations: The Federal rules restrict any use of the information to criminally investigate or prosecute any alcohol or drug abuse patient.[facility] SystemIn the event this information is protected by the Federal Confidentiality of Alcohol and Drug Abuse Patient Records regulations: The Federal rules restrict any use of the information to criminally investigate or prosecute any alcohol or drug abuse patient.[facility] SystemIn the event this information is protected by the Federal Confidentiality of Alcohol and Drug Abuse Patient Records regulations: The Federal rules restrict any use of the information to criminally investigate or prosecute any alcohol or drug abuse patient.[facility]In the event this information is protected by the Federal Confidentiality of Alcohol and Drug Abuse Patient Records regulations: The Federal rules restrict any use of the information to criminally investigate or prosecute any alcohol or drug abuse patient.[facility] SystemIn the event this information is protected by the Federal Confidentiality of Alcohol and Drug Abuse Patient Records regulations: The Federal rules restrict any use of the information to criminally investigate or prosecute any alcohol or drug abuse patient.[facility] SystemIn the event this information is protected by the Federal Confidentiality of Alcohol and Drug Abuse Patient Records regulations: The Federal rules restrict any use of the information to criminally investigate or prosecute any alcohol or drug abuse patient.[facility] SystemIn the event this information is protected by the Federal Confidentiality of Alcohol and Drug Abuse Patient Records regulations: The Federal rules restrict any use of the information to criminally investigate or prosecute any alcohol or drug abuse patient.[facility] SystemIn the event this information is protected by the Federal Confidentiality of Alcohol and Drug Abuse Patient Records regulations: The Federal rules restrict any use of the information to criminally investigate or prosecute any alcohol or drug abuse patient.[facility] SystemIn the event this information is protected by the Federal Confidentiality of Alcohol and Drug Abuse Patient Records regulations: The Federal rules restrict any use of the information to criminally investigate or prosecute any alcohol or drug abuse patient.[facility] SystemIn the event this information is protected by the Federal Confidentiality of Alcohol and Drug Abuse Patient Records regulations: The Federal rules restrict any use of the information to criminally investigate or prosecute any alcohol or drug abuse patient.[facility] SystemIn the event this information is protected by the Federal Confidentiality of Alcohol and Drug Abuse Patient Records regulations: The Federal rules restrict any use of the information to criminally investigate or prosecute any alcohol or drug abuse patient.[facility] SystemIn the event this information is protected by the Federal Confidentiality of Alcohol and Drug Abuse Patient Records regulations: The Federal rules restrict any use of the information to criminally investigate or prosecute any alcohol or drug abuse patient.[facility] SystemIn the event this information is protected by the Federal Confidentiality of Alcohol and Drug Abuse Patient Records regulations: The Federal rules restrict any use of the information to criminally investigate or prosecute any alcohol or drug abuse patient.[facility] SystemIn the event this information is protected by the Federal Confidentiality of Alcohol and Drug Abuse Patient Records regulations: The Federal rules restrict any use of the information to criminally investigate or prosecute any alcohol or drug abuse patient.[facility] SystemIn the event this information is protected by the Federal Confidentiality of Alcohol and Drug Abuse Patient Records regulations: The Federal rules restrict any use of the information to criminally investigate or prosecute any alcohol or drug abuse patient.[facility] SystemIn the event this information is protected by the Federal Confidentiality of Alcohol and Drug Abuse Patient Records regulations: The Federal rules restrict any use of the information to criminally investigate or prosecute any alcohol or drug abuse patient.[facility] SystemIn the event this information is protected by the Federal Confidentiality of Alcohol and Drug Abuse Patient Records regulations: The Federal rules restrict any use of the information to criminally investigate or prosecute any alcohol or drug abuse patient.[facility] SystemIn the event this information is protected by the Federal Confidentiality of Alcohol and Drug Abuse Patient Records regulations: The Federal rules restrict any use of the information to criminally investigate or prosecute any alcohol or drug abuse patient.[facility] SystemIn the event this information is protected by the Federal Confidentiality of Alcohol and Drug Abuse Patient Records regulations: The Federal rules restrict any use of the information to criminally investigate or prosecute any alcohol or drug abuse patient.[facility] SystemIn the event this information is protected by the Federal Confidentiality of Alcohol and Drug Abuse Patient Records regulations: The Federal rules restrict any use of the information to criminally investigate or prosecute any alcohol or drug abuse patient.[facility] SystemIn the event this information is protected by the Federal Confidentiality of Alcohol and Drug Abuse Patient Records regulations: The Federal rules restrict any use of the information to criminally investigate or prosecute any alcohol or drug abuse patient.[facility] SystemIn the event this information is protected by the Federal Confidentiality of Alcohol and Drug Abuse Patient Records regulations: The Federal rules restrict any use of the information to criminally investigate or prosecute any alcohol or drug abuse patient.[facility] SystemIn the event this information is protected by the Federal Confidentiality of Alcohol and Drug Abuse Patient Records regulations: The Federal rules restrict any use of the information to criminally investigate or prosecute any alcohol or drug abuse patient.[facility] SystemIn the event this information is protected by the Federal Confidentiality of Alcohol and Drug Abuse Patient Records regulations: The Federal rules restrict any use of the information to criminally investigate or prosecute any alcohol or drug abuse patient.[facility] SystemIn the event this information is protected by the Federal Confidentiality of Alcohol and Drug Abuse Patient Records regulations: The Federal rules restrict any use of the information to criminally investigate or prosecute any alcohol or drug abuse patient.[facility] SystemIn the event this information is protected by the Federal Confidentiality of Alcohol and Drug Abuse Patient Records regulations: The Federal rules restrict any use of the information to criminally investigate or prosecute any alcohol or drug abuse patient.[facility] SystemIn the event this information is protected by the Federal Confidentiality of Alcohol and Drug Abuse Patient Records regulations: The Federal rules restrict any use of the information to criminally investigate or prosecute any alcohol or drug abuse patient.[facility] SystemIn the event this information is protected by the Federal Confidentiality of Alcohol and Drug Abuse Patient Records regulations: The Federal rules restrict any use of the information to criminally investigate or prosecute any alcohol or drug abuse patient.[facility] SystemIn the event this information is protected by the Federal Confidentiality of Alcohol and Drug Abuse Patient Records regulations: The Federal rules restrict any use of the information to criminally investigate or prosecute any alcohol or drug abuse patient.[facility] SystemIn the event this information is protected by the Federal Confidentiality of Alcohol and Drug Abuse Patient Records regulations: The Federal rules restrict any use of the information to criminally investigate or prosecute any alcohol or drug abuse patient.[facility] SystemIn the event this information is protected by the Federal Confidentiality of Alcohol and Drug Abuse Patient Records regulations: The Federal rules restrict any use of the information to criminally investigate or prosecute any alcohol or drug abuse patient.[facility] SystemIn the event this information is protected by the Federal Confidentiality of Alcohol and Drug Abuse Patient Records regulations: The Federal rules restrict any use of the information to criminally investigate or prosecute any alcohol or drug abuse patient.[facility] SystemIn the event this information is protected by the Federal Confidentiality of Alcohol and Drug Abuse Patient Records regulations: The Federal rules restrict any use of the information to criminally investigate or prosecute any alcohol or drug abuse patient.[facility] SystemIn the event this information is protected by the Federal Confidentiality of Alcohol and Drug Abuse Patient Records regulations: The Federal rules restrict any use of the information to criminally investigate or prosecute any alcohol or drug abuse patient.[facility] SystemIn the event this information is protected by the Federal Confidentiality of Alcohol and Drug Abuse Patient Records regulations: The Federal rules restrict any use of the information to criminally investigate or prosecute any alcohol or drug abuse patient.[facility] SystemIn the event this information is protected by the Federal Confidentiality of Alcohol and Drug Abuse Patient Records regulations: The Federal rules restrict any use of the information to criminally investigate or prosecute any alcohol or drug abuse patient.[facility] SystemIn the event this information is protected by the Federal Confidentiality of Alcohol and Drug Abuse Patient Records regulations: The Federal rules restrict any use of the information to criminally investigate or prosecute any alcohol or drug abuse patient.[facility] SystemIn the event this information is protected by the Federal Confidentiality of Alcohol and Drug Abuse Patient Records regulations: The Federal rules restrict any use of the information to criminally investigate or prosecute any alcohol or drug abuse patient.[facility] SystemIn the event this information is protected by the Federal Confidentiality of Alcohol and Drug Abuse Patient Records regulations: The Federal rules restrict any use of the information to criminally investigate or prosecute any alcohol or drug abuse patient.[facility] SystemIn the event this information is protected by the Federal Confidentiality of Alcohol and Drug Abuse Patient Records regulations: The Federal rules restrict any use of the information to criminally investigate or prosecute any alcohol or drug abuse patient.[facility] SystemIn the event this information is protected by the Federal Confidentiality of Alcohol and Drug Abuse Patient Records regulations: The Federal rules restrict any use of the information to criminally investigate or prosecute any alcohol or drug abuse patient.[facility] SystemIn the event this information is protected by the Federal Confidentiality of Alcohol and Drug Abuse Patient Records regulations: The Federal rules restrict any use of the information to criminally investigate or prosecute any alcohol or drug abuse patient.[facility] SystemIn the event this information is protected by the Federal Confidentiality of Alcohol and Drug Abuse Patient Records regulations: The Federal rules restrict any use of the information to criminally investigate or prosecute any alcohol or drug abuse patient.[facility] SystemIn the event this information is protected by the Federal Confidentiality of Alcohol and Drug Abuse Patient Records regulations: The Federal rules restrict any use of the information to criminally investigate or prosecute any alcohol or drug abuse patient.[facility] SystemIn the event this information is protected by the Federal Confidentiality of Alcohol and Drug Abuse Patient Records regulations: The Federal rules restrict any use of the information to criminally investigate or prosecute any alcohol or drug abuse patient.[facility] SystemIn the event this information is protected by the Federal Confidentiality of Alcohol and Drug Abuse Patient Records regulations: The Federal rules restrict any use of the information to criminally investigate or prosecute any alcohol or drug abuse patient.[facility] SystemIn the event this information is protected by the Federal Confidentiality of Alcohol and Drug Abuse Patient Records regulations: The Federal rules restrict any use of the information to criminally investigate or prosecute any alcohol or drug abuse patient.[facility] SystemIn the event this information is protected by the Federal Confidentiality of Alcohol and Drug Abuse Patient Records regulations: The Federal rules restrict any use of the information to criminally investigate or prosecute any alcohol or drug abuse patient.[facility] SystemIn the event this information is protected by the Federal Confidentiality of Alcohol and Drug Abuse Patient Records regulations: The Federal rules restrict any use of the information to criminally investigate or prosecute any alcohol or drug abuse patient.[facility] SystemIn the event this information is protected by the Federal Confidentiality of Alcohol and Drug Abuse Patient Records regulations: The Federal rules restrict any use of the information to criminally investigate or prosecute any alcohol or drug abuse patient.[facility] the event this information is protected by the Federal Confidentiality of Alcohol and Drug Abuse Patient Records regulations: The Federal rules restrict any use of the information to criminally investigate or prosecute any alcohol or drug abuse patient.[facility] SystemIn the event this information is protected by the Federal Confidentiality of Alcohol and Drug Abuse Patient Records regulations: The Federal rules restrict any use of the information to criminally investigate or prosecute any alcohol or drug abuse patient.[facility] SystemIn the event this information is protected by the Federal Confidentiality of Alcohol and Drug Abuse Patient Records regulations: The Federal rules restrict any use of the information to criminally investigate or prosecute any alcohol or drug abuse patient.[facility]In the event this information is protected by the Federal Confidentiality of Alcohol and Drug Abuse Patient Records regulations: The Federal rules restrict any use of the information to criminally investigate or prosecute any alcohol or drug abuse patient.[facility] SystemIn the event this information is protected by the Federal Confidentiality of Alcohol and Drug Abuse Patient Records regulations: The Federal rules restrict any use of the information to criminally investigate or prosecute any alcohol or drug abuse patient.[facility] SystemIn the event this information is protected by the Federal Confidentiality of Alcohol and Drug Abuse Patient Records regulations: The Federal rules restrict any use of the information to criminally investigate or prosecute any alcohol or drug abuse patient.[facility] SystemIn the event this information is protected by the Federal Confidentiality of Alcohol and Drug Abuse Patient Records regulations: The Federal rules restrict any use of the information to criminally investigate or prosecute any alcohol or drug abuse patient.[facility] SystemIn the event this information is protected by the Federal Confidentiality of Alcohol and Drug Abuse Patient Records regulations: The Federal rules restrict any use of the information to criminally investigate or prosecute any alcohol or drug abuse patient.[facility] SystemIn the event this information is protected by the Federal Confidentiality of Alcohol and Drug Abuse Patient Records regulations: The Federal rules restrict any use of the information to criminally investigate or prosecute any alcohol or drug abuse patient.[facility] SystemIn the event this information is protected by the Federal Confidentiality of Alcohol and Drug Abuse Patient Records regulations: The Federal rules restrict any use of the information to criminally investigate or prosecute any alcohol or drug abuse patient.[facility] SystemIn the event this information is protected by the Federal Confidentiality of Alcohol and Drug Abuse Patient Records regulations: The Federal rules restrict any use of the information to criminally investigate or prosecute any alcohol or drug abuse patient.[facility] SystemIn the event this information is protected by the Federal Confidentiality of Alcohol and Drug Abuse Patient Records regulations: The Federal rules restrict any use of the information to criminally investigate or prosecute any alcohol or drug abuse patient.[facility] SystemIn the event this information is protected by the Federal Confidentiality of Alcohol and Drug Abuse Patient Records regulations: The Federal rules restrict any use of the information to criminally investigate or prosecute any alcohol or drug abuse patient.[facility] SystemIn the event this information is protected by the Federal Confidentiality of Alcohol and Drug Abuse Patient Records regulations: The Federal rules restrict any use of the information to criminally investigate or prosecute any alcohol or drug abuse patient.[facility] SystemIn the event this information is protected by the Federal Confidentiality of Alcohol and Drug Abuse Patient Records regulations: The Federal rules restrict any use of the information to criminally investigate or prosecute any alcohol or drug abuse patient.[facility] SystemIn the event this information is protected by the Federal Confidentiality of Alcohol and Drug Abuse Patient Records regulations: The Federal rules restrict any use of the information to criminally investigate or prosecute any alcohol or drug abuse patient.[facility] SystemIn the event this information is protected by the Federal Confidentiality of Alcohol and Drug Abuse Patient Records regulations: The Federal rules restrict any use of the information to criminally investigate or prosecute any alcohol or drug abuse patient.[facility] SystemIn the event this information is protected by the Federal Confidentiality of Alcohol and Drug Abuse Patient Records regulations: The Federal rules restrict any use of the information to criminally investigate or prosecute any alcohol or drug abuse patient.[facility] Care Teams (unrecognized sec tion and content) Pan Dumper Relationship Specialty Start Date End Date Florian Gonzalez MD [address] [place] [address] PCP - General Internal Medicine 05/05/21 Preethi Portillo MD [address] [place] [address] Family Practice 02/13/19 Pan Dumper Relationship Specialty Start Date End Date Florian Gonzalez MD [address] [facility] [place] [address] PCP - General Internal Medicine 05/05/21 Preethi Portillo MD [address] [place] [address] [facility] 02/13/19 Pan Dumper Relationship Specialty Start Date End Date Florian Gonzalez MD [address] [facility] [place] [address] PCP - General Internal Medicine 05/05/21 Preethi Portillo MD [address] [place] [address] [facility] 02/13/19 Pan Dumper Relationship Specialty Start Date End Date Florian Gonzalez MD [address] [facility] [place] [address] PCP - General Internal Medicine 05/05/21 Preethi Portillo MD [facility] [place] [address] [facility] 02/13/19 Pan Dumper Relationship Specialty Start Date End Date Florian Gonzalez MD [address] [facility] [place] [address] PCP - General Internal Medicine 05/05/21 Preethi Portillo MD [address] [place] [address] Family Practice 02/13/19 Pan Dumper Relationship Specialty Start Date End Date Florian Gonzalez MD [address] [facility] [place] [address] PCP - General Internal Medicine 05/05/21 Preethi Portillo MD [address] [place] [address] Family Practice 02/13/19 Pan Dumper Relationship Specialty Start Date End Date Florian Gonzalez MD [address] [facility] [place] [address] PCP - General Internal Medicine 05/05/21 Preethi Portillo MD [address] [facility] [address] [facility] 02/13/19 Pan Dumper Relationship Specialty Start Date End Date Florian Gonzalez MD [address] [facility] [place] [address] PCP - General Internal Medicine 05/05/21 Preethi Portillo MD [address] [place] [address] [facility] 02/13/19 Pan Dumper Relationship Specialty Start Date End Date Florian Gonzalez MD [address] [facility] [place] [address] PCP - General Internal Medicine 05/05/21 Preethi Portillo MD [address] [place] [address] [facility] 02/13/19 Pan Dumper Relationship Specialty Start Date End Date Florian Gonzalez MD [address] [facility] [place] [address] PCP - General Internal Medicine 05/05/21 Preethi Portillo MD [facility] [place] [address] Family Medicine 02/13/19 Pan Dumper Relationship Specialty Start Date End Date Florian Gonzalez MD [address] [facility] [place] [address] PCP - General Internal Medicine 05/05/21 Preethi Portillo MD [address] [facility] [address] Family Medicine 02/13/19 Pan Dumper Relationship Specialty Start Date End Date Florian Gonzalez MD [address] [facility] [place] [address] PCP - General Internal Medicine 05/05/21 Preethi Portillo MD [address] [facility] [address] Family Medicine 02/13/19 Pan Dumper Relationship Specialty Start Date End Date Florian Gonzalez MD [address] [facility] [place] [address] PCP - General Internal Medicine 05/05/21 Preethi Portillo MD [address] [place] [address] Family Medicine 02/13/19 Pan Dumper Relationship Specialty Start Date End Date Florian Gonzalez MD [address] [facility] [place] [address] PCP - General Internal Medicine 05/05/21 Preethi Portillo MD [address] [facility] [address] Family Medicine 02/13/19 Pan Dumper Relationship Specialty Start Date End Date Florian Gonzalez MD [address] [facility] [place] [address] PCP - General Internal Medicine 05/05/21 Preethi Portillo MD [address] [place] [address] Family Medicine 02/13/19 Pan Dumper Relationship Specialty Start Date End Date Florian Gonzalez MD [address] [facility] [place] [address] PCP - General Internal Medicine 05/05/21 Preethi Portillo MD [address] [place] [address] Family Medicine 02/13/19 Pan Dumper Relationship Specialty Start Date End Date Florian Gonzalez MD [address] [facility] [place] [address] PCP - General Internal Medicine 05/05/21 Preethi Portillo MD [facility] [place] [address] Family Medicine 02/13/19 Pan Dumper Relationship Specialty Start Date End Date Florian Gonzalez MD [address] [facility] [place] [address] PCP - General Internal Medicine 05/05/21 Preethi Portillo MD [facility] [place] [address] Family Medicine 02/13/19 Pan Dumper Relationship Specialty Start Date End Date Florian Gonzalez MD [address] [facility] [place] [address] PCP - General Internal Medicine 05/05/21 Preethi Portillo MD [facility] [place] [address] Family Medicine 02/13/19 Pan Dumper Relationship Specialty Start Date End Date Florian Gonzalez MD [address] [facility] [place] [address] PCP - General Internal Medicine 05/05/21 Preethi Portillo MD [address] [facility] [address] Family Medicine 02/13/19 Pan Dumper Relationship Specialty Start Date End Date Florian Gonzalez MD [address] [facility] [place] [address] PCP - General Internal Medicine 05/05/21 Preethi Portillo MD [address] [place] [address] Family Medicine 02/13/19 Pan Dumper Relationship Specialty Start Date End Date Florian Gonzalez MD [address] [facility] [place] [address] PCP - General Internal Medicine 05/05/21 Preethi Portillo MD [address] [place] [address] Family Medicine 02/13/19 Pan Dumper Relationship Specialty Start Date End Date Florian Gonzalez [address] [facility] [place] [address] PCP - General Internal Medicine 04/28/22 Pan Dumper Relationship Specialty Start Date End Date Florian Gonzalez [address] [facility] [place] [address] PCP - General Internal Medicine 04/28/22 Pan Dumper Relationship Specialty Start Date End Date Florian Gonzalez [address] [facility] [place] [address] PCP - General Internal Medicine 04/28/22 Pan Dumper Relationship Specialty Start Date End Date Florian Gonzalez [address] [facility] [place] [address] PCP - General Internal Medicine 04/28/22 Pan Dumper Relationship Specialty Start Date End Date Florian Gonzalez [address] [facility] [place] [address] PCP - General Internal Medicine 04/28/22 Pan Dumper Relationship Specialty Start Date End Date Florian Gonzalez [address] [facility] [place] [address] PCP - General Internal Medicine 04/28/22 Pan Dumper Relationship Specialty Start Date End Date Florian Gonzalez [address] [facility] [place] [address] PCP - General Internal Medicine 04/28/22 Pan Dumper Relationship Specialty Start Date End Date Florian Gonzalez MD [address] [facility] [place] [address] PCP - General Internal Medicine 05/05/21 Preethi Portillo MD [address] [place] [address] Family Medicine 02/13/19 Pan Dumper Relationship Specialty Start Date End Date Florian Gonzalez [address] [facility] [place] [address] PCP - General Internal Medicine 04/28/22 Pan Dumper Relationship Specialty Start Date End Date Florian Gonzalez [address] [facility] [place] [address] PCP - General Internal Medicine 04/28/22 Pan Dumper Relationship Specialty Start Date End Date Florian Gonzalez [address] [facility] [place] [address] PCP - General Internal Medicine 04/28/22 Pan Dumper Relationship Specialty Start Date End Date Florian Gonzalez [address] [place] [address] PCP - General Internal Medicine 04/28/22 Pan Dumper Relationship Specialty Start Date End Date Florian Gonzalez [address] [place] [address] PCP - General Internal Medicine 04/28/22 Pan Dumper Relationship Specialty Start Date End Date Florian Gonzalez MD [address] [place] [address] PCP - General Internal Medicine 05/05/21 Preethi Portillo MD [address] [place] [address] Family Medicine 02/13/19 Pan Dumper Relationship Specialty Start Date End Date Florian Gonzalez MD [address] [place] [address] PCP - General Internal Medicine 05/05/21 Preethi Portillo MD [address] [place] [address] Family Medicine 02/13/19 Pan Dumper Relationship Specialty Start Date End Date Florian Gonzalez MD [address] [place] [address] PCP - General Internal Medicine 05/05/21 Preethi Portillo MD [address] [place] [address] Family Medicine 02/13/19 Pan Dumper Relationship Specialty Start Date End Date Florian Gonzalez MD [address] [place] [address] PCP - General Internal Medicine 05/05/21 Preethi Portillo MD [address] [place] [address] Family Medicine 02/13/19 Pan Dumper Relationship Specialty Start Date End Date Florian Gonzalez MD [address] [place] [address] PCP - General Internal Medicine 05/05/21 Preethi Portillo MD [facility] [place] [address] Family Medicine 02/13/19 Pan Dumper Relationship Specialty Start Date End Date Florian Gonzalez MD [facility] [place] [address] PCP - General Internal Medicine 05/05/21 Preethi Portillo MD [facility] [place] [address] Family Medicine 02/13/19 Pan Dumper Relationship Specialty Start Date End Date Florian Gonzalez MD [facility] [place] [address] PCP - General Internal Medicine 05/05/21 Preethi Portillo MD [address] [place] [address] Family Medicine 02/13/19 Pan Dumper Relationship Specialty Start Date End Date Florian Gonzalez MD [facility] [place] [address] PCP - General Internal Medicine 05/05/21 Preethi Portillo MD [address] [place] [address] Family Medicine 02/13/19 Pan Dumper Relationship Specialty Start Date End Date Florian Gonzalez [address] [place] [address] PCP - General Internal Medicine 04/28/22 Pan Dumper Relationship Specialty Start Date End Date Florian Gonzalez MD [address] [place] [address] PCP - General Internal Medicine 05/05/21 Preethi Portillo MD [address] [place] [address] Family Medicine 02/13/19 Pan Dumper Relationship Specialty Start Date End Date Florian Gonzalez MD [address] [place] [address] PCP - General Internal Medicine 05/05/21 Preethi Portillo MD [address] [place] [address] Family Medicine 02/13/19 Pan Dumper Relationship Specialty Start Date End Date Florian Gonzalez MD [address] [place] [address] PCP - General Internal Medicine 05/05/21 Preethi Portillo MD [address] [place] [address] Family Medicine 02/13/19 Pan Dumper Relationship Specialty Start Date End Date Florian Gonzalez MD [address] [facility] [place] [address] PCP - General Internal Medicine 05/05/21 Preethi Portillo MD [address] [place] [address] Family Medicine 02/13/19 Pan Dumper Relationship Specialty Start Date End Date Florian Gonzalez MD [address] [place] [address] PCP - General Internal Medicine 05/05/21 Preethi Portillo MD [address] [place] [address] Family Medicine 02/13/19 Pan Dumper Relationship Specialty Start Date End Date Florian Gonzalez MD [address] [place] [address] PCP - General Internal Medicine 05/05/21 Preethi Portillo MD [address] [place] [address] Family Medicine 02/13/19 Pan Dumper Relationship Specialty [place] [address] [id number] PCP - General Internal Medicine 09/14/22 Pan Dumper Relationship Specialty Start Date End Date Florian Gonzalez MD [address] [facility] [place] [address] PCP - General Internal Medicine 05/05/21 Preethi Portillo MD [address] [place] [address] Family Medicine 02/13/19 Pan Dumper Relationship Specialty Start Date End Date Florian Gonzalez MD [address] [facility] [place] [address] PCP - General Internal Medicine 05/05/21 Preethi Portillo MD [address] [place] [address] Family Medicine 02/13/19 Pan Dumper Relationship Specialty Start Date End Date Florian Gonzalez MD [address] [place] [address] PCP - General Internal Medicine 05/05/21 Preethi Portillo MD [address] [place] [address] Family Medicine 02/13/19 Pan Dumper Relationship Specialty Start Date End Date Florian Gonzalez MD [address] [place] [address] PCP - General Internal Medicine 05/05/21 Preethi Portillo MD [address] [place] [address] Family [facility] 02/13/19 Pan Dumper Relationship Specialty Start Date End Date Florian Gonzalez MD [address] [place] [address] PCP - General Internal Medicine 05/05/21 Preethi Portillo MD [address] [place] [address] Family Medicine 02/13/19 Pan Dumper Relationship Specialty Start Date End Date Florian Gonzalez MD [address] [facility] [place] [address] PCP - General Internal Medicine 05/05/21 Preethi Portillo MD [address] [place] [address] Family Medicine 02/13/19 Pan Dumper Relationship Specialty Start Date End Date Florian Gonzalez MD [address] [place] [address] PCP - General Internal Medicine 05/05/21 Preethi Portillo MD [address] [place] [address] Family Medicine 02/13/19 Pan Dumper Relationship Specialty Start Date End Date Florian Gonzalez MD [address] [place] [address] PCP - General Internal Medicine 05/05/21 Preethi Portillo MD [address] [place] [address] Family [facility] 02/13/19 Pan Dumper Relationship Specialty Start Date End Date Florian Gonzalez MD [address] [place] [address] PCP - General Internal Medicine 05/05/21 Preethi Portillo MD [address] [place] [address] Family Medicine 02/13/19 Pan Dumper Relationship Specialty Start Date End Date Florian Gonzalez [address] [facility] [place] [address] PCP - General Internal Medicine 04/28/22 Pan Dumper Relationship Specialty Start Date End Date Florian Gonzalez [address] [facility] [place] [address] PCP - General Internal Medicine 04/28/22 Pan Dumper Relationship Specialty Start Date End Date Florian Gonzalez [address] [facility] [place] [address] PCP - General Internal Medicine 04/28/22 Pan Dumper Relationship Specialty Start Date End Date Florian Gonzalez [address] [facility] [place] [address] PCP - General Internal Medicine 04/28/22 Pan Dumper Relationship Specialty Start Date End Date Florian Gonzalez [address] [facility] [place] [address] PCP - General Internal Medicine 04/28/22 Pan Dumper Relationship Specialty Start Date End Date Florian Gonzalez MD [address] [facility] [place] [address] PCP - General Internal Medicine 05/05/21 Preethi Portillo MD [address] [place] [address] Family Medicine 02/13/19 Shea Etienne, TEXTILE BROKER.FACING GRINDER [address] [facility] [place] [address] Hadoop Architect Internal Medicine 03/18/24 Pan Dumper Relationship Specialty Start Date End Date Florian Gonzalez MD [address] [facility] [address] PCP - General Internal Medicine 05/05/21 Preethi Portillo MD [address] [place] [address] Family Medicine 02/13/19 Shea Etienne, TEXTILE BROKER.FACING GRINDER [address] [facility] [place] [address] Hadoop Architect Internal Medicine 03/18/24 Pan Dumper Relationship Specialty Start Date End Date Florian Gonzalez MD [address] [facility] [place] [address] PCP - General Internal Medicine 05/05/21 Preethi Portillo MD [address] [place] [address] Family Medicine 02/13/19 Shea Etienne, TEXTILE BROKER.FACING GRINDER [address] [facility] [place] [address] Hadoop Architect Internal Medicine 03/18/24 Pan Dumper Relationship Specialty Start Date End Date Florian Gonzalez MD [address] [facility] [place] [address] PCP - General Internal Medicine 05/05/21 Preethi Portillo MD [address] [place] [address] Family Medicine 02/13/19 Shea Etienne, TEXTILE BROKER.FACING GRINDER [address] [place] [address] Hadoop Architect Internal Medicine 03/18/24 Pan Dumper Relationship Specialty [place] [address] [facility] [address] [place] [address] PCP - General Internal Medicine 09/14/22 Pan Dumper Relationship Specialty Start Date End Date Florian Gonzalez MD [address] [place], [place] [address] PCP - General Internal Medicine 05/05/21 Preethi Portillo MD [address] [place] [address] Family Medicine 02/13/19 Shea Etienne, TEXTILE BROKER.FACING GRINDER [address] [place] [address] Hadoop Architect Internal Medicine 03/18/24 Pan Dumper Relationship Specialty Start Date End Date Florian Gonzalez MD [address] [place], [place] [address] PCP - General Internal Medicine 05/05/21 Preethi Portillo MD [address] [place] [address] Family Medicine 02/13/19 Shea Etienne, TEXTILE BROKER.FACING GRINDER [address] [place] [address] [facility] Internal Medicine 03/18/24 Pan Dumper Relationship Specialty Start Date End Date Florian Gonzalez MD [address] [place], [place] [address] PCP - General Internal Medicine 05/05/21 Preethi Portillo MD [address] [place] [address] Family Medicine 02/13/19 Shea Etienne, TEXTILE BROKER.FACING GRINDER [address] [place] [address] Hadoop Architect Internal Medicine 03/18/24 Pan Dumper Relationship Specialty [place] [address] [facility] [address] [place], [place] [address] PCP - General Internal Medicine 09/14/22 Pan Dumper Relationship Specialty Start Date End Date Florian Gonzalez MD [address] [place] [address] PCP - General Internal Medicine 05/05/21 Preethi Portillo MD [address] [place] [address] Family Medicine 02/13/19 Shea Etienne, TEXTILE BROKER.FACING GRINDER [address] [place] [address] Hadoop Architect Internal Medicine 03/18/24 Pan Dumper Relationship Specialty Start Date End Date Florian Gonzalez MD [address] [place] [address] PCP - General Internal Medicine 05/05/21 Preethi Portillo MD [address] [place] [address] Family Medicine 02/13/19 Shea Etienne, TEXTILE BROKER.FACING GRINDER [address] [facility] [place] [address] Hadoop Architect Internal Medicine 03/18/24 Pan Dumper Relationship Specialty Start Date End Date Florian Gonzalez MD [address] [facility] [place] [address] PCP - General Internal Medicine 05/05/21 Preethi Portillo MD [address] [place] [address] Family Medicine 02/13/19 Shea Etienne, TEXTILE BROKER.FACING GRINDER [address] [place] [address] Hadoop Architect Internal Medicine 03/18/24 Jenn Vidales, MICHAEL [address] [place] [address] Rasper Machine Operator 07/15/24 Pan Dumper Relationship Specialty Start Date End Date Florian Gonzalez MD [address] [place] [address] PCP - General Internal Medicine 05/05/21 Preethi Portillo MD [address] [place] [address] Family [facility] 02/13/19 Shea Etienne, TEXTILE BROKER.FACING GRINDER [address] [place] [address] Hadoop Architect Internal Medicine 03/18/24 Jenn Vidales, MICHAEL [address] [place], [place] [address] Rasper Machine Operator 07/15/24 Team Status: Active Member Role Status Dates Dr. Florian Gonzalez MD Primary Care Provider Active Team Status: Inactive Member Role Status Dates Dr. Florian Gonzalez MD Primary Care Provider Active Start: July 22, 2024 End: July 22, 2024 Dr. Cortez Maldonado MD Emergency Provider Active S tart: July 22, 2024 End: July 22, 2024 Pan Dumper Relationship Specialty Start Date End Date Florian Gonzalez MD [address] [place], [place] [address] PCP - General Internal Medicine 05/05/21 Preethi Portillo MD [address] [place] [address] Family Medicine 02/13/19 Shea Etienne, TEXTILE BROKER.FACING GRINDER [address] [place] [address] Hadoop Architect Internal Medicine 03/18/24 Jenn Vidales RN [address] [place] [address] Rasper Machine Operator 07/15/24 Pan Dumper Relationship Specialty Start Date End Date Florian Gonzalez MD [address] [place] [address] PCP - General Internal Medicine 05/05/21 Preethi Portillo MD [address] [place] [address] Family Medicine 02/13/19 Shea Etienne, TEXTILE BROKER.FACING GRINDER [address] [place] [address] Hadoop Architect Internal Medicine 03/18/24 Jenn Vidales, MICHAEL [address] [place], [place] [address] Rasper Machine Operator 07/15/24 Pan Dumper Relationship Specialty Start Date End Date Florian Gonzalez MD [address] [facility] [place] [address] PCP - General Internal Medicine 05/05/21 Preethi Portillo MD [address] [facility] [address] Family Medicine 02/13/19 Shea Etienne, TEXTILE BROKER.FACING GRINDER [address] [facility] [place] [address] Hadoop Architect Internal Medicine 03/18/24 Jenn Vidales, MICHAEL [address] [place] [address] Rasper Machine Operator 07/15/24 Pan Dumper Relationship Specialty Start Date End Date Florian Gonzalez MD [address] [facility] [place] [address] PCP - General Internal Medicine 05/05/21 Preethi Portillo MD [address] [place] [address] Family Medicine 02/13/19 Shea Etienne, TEXTILE BROKER.FACING GRINDER [address] [place] [address] Hadoop Architect Internal Medicine 03/18/24 Jenn Vidales RN [address] [place] [address] Rasper Machine Operator 07/15/24 Pan Dumper Relationship Specialty Start Date End Date Florian Gonzalez MD [address] [facility] [place] [address] PCP - General Internal Medicine 05/05/21 Preethi Portillo MD [address] [place] [address] Family Medicine 02/13/19 Shea Etienne, TEXTILE BROKER.FACING GRINDER [address] [facility] [place] [address] Hadoop Architect Internal Medicine 03/18/24 Jenn Vidales, MICHAEL [address] [place] [address] Rasper Machine Operator 07/15/24 Pan Dumper Relationship Specialty Start Date End Date Florian Gonzalez MD [address] [place] [address] PCP - General Internal Medicine 05/05/21 Preethi Portillo MD [address] [place] [address] Family Medicine 02/13/19 Shea Etienne, TEXTILE BROKER.FACING GRINDER [address] [place] [address] Hadoop Architect Internal Medicine 03/18/24 Jenn Vidales, MICHAEL [address] [place] [address] Rasper Machine Operator 07/15/24 Pan Dumper Relationship Specialty Start Date End Date Florian Gonzalez MD [address] [place] [address] PCP - General Internal Medicine 05/05/21 Preethi Portillo MD [address] [place] [address] Family Medicine 02/13/19 Shea Etienne, TEXTILE BROKER.FACING GRINDER [address] [place] [address] Hadoop Architect Internal Medicine 03/18/24 Jenn Vidales, MICHAEL [address] [place] [address] Rasper Machine Operator 07/15/24 Pan Dumper Relationship Specialty Start Date End Date Florian Gonzalez MD [address] [place] [address] PCP - General Internal Medicine 05/05/21 Preethi Portillo MD [address] [place] [address] Family Medicine 02/13/19 Shea Etienne, TEXTILE BROKER.FACING GRINDER [address] [place] [address] [facility] Internal Medicine 03/18/24 Jenn Vidales RN [address] [place] [address] Rasper Machine Operator 07/15/24 Team Status: Inactive Member Role Status Dates Dr. Florian Gonzalez MD Primary Care Provider Active Start: July 22, 2024 End: July 22, 2024 Dr. Cortez Maldonado MD Attending Provider Active S tart: July 22, 2024 End: July 22, 2024 Dr. Cortez Maldonado MD Emergency Provider Active S tart: July 22, 2024 End: July 22, 2024 Team Status: Inactive Member Role Status Dates Dr. Florian Gonzalez MD Primary Care Provider Active Start: September 18, 2024 End: September 18, 2024 Dr. Florian Gonzalez MD Referring Provider Active Start: September 18, 2024 End: September 18, 2024 Dr. Lyudmila Euceda MD Attending Provider Active Start: September 18, 2024 End: September 18, 2024 Pan Dumper Relationship Specialty Start Date End Date Florian Gonzalez MD [address] [place] [address] PCP - General Internal Medicine 05/05/21 Preethi Portillo MD [address] [place] [address] Family Medicine 02/13/19 Shea Etienne, TEXTILE BROKER.FACING GRINDER [address] [place] [address] Hadoop Architect Internal Medicine 03/18/24 Jenn Vidales RN [address] [place] [address] Rasper Machine Operator 07/15/24 Pan Dumper Relationship Specialty Start Date End Date Florian Gonzalez MD [address] [place] [address] PCP - General Internal Medicine 05/05/21 Preethi Portillo MD [address] [place] [address] Family Medicine 02/13/19 Shea Etienne, TEXTILE BROKER.FACING GRINDER [address] [place] [address] Hadoop Architect Internal Medicine 03/18/24 Jenn Vidales RN [address] [place] [address] Rasper Machine Operator 07/15/24 Pan Dumper Relationship Specialty Start Date End Date Florian Gonzalez MD [address] [place] [address] PCP - General Internal Medicine 05/05/21 Preethi Portillo MD [address] [place] [address] Family Medicine 02/13/19 Shea Etienne, TEXTILE BROKER.FACING GRINDER [address] [facility] [place] [address] Hadoop Architect Internal Medicine 03/18/24 Jenn Vidales, MICHAEL [address] [place] [address] Rasper Machine Operator 07/15/24 Pan Dumper Relationship Specialty Start Date End Date Florian Gonzalez MD [address] [place] [address] PCP - General Internal Medicine 05/05/21 Preethi Portillo MD [address] [place] [address] Family Medicine 02/13/19 Shea Etienne, TEXTILE BROKER.FACING GRINDER [address] [place] [address] Hadoop Architect Internal Medicine 03/18/24 Jenn Vidales, MICHAEL [address] [place] [address] Rasper Machine Operator 07/15/24 Pan Dumper Relationship Specialty Start Date End Date Florian Gonzalez MD [address] [place] [address] PCP - General Internal Medicine 05/05/21 Preethi Portillo MD [address] [place] [address] Family Medicine 02/13/19 Shea Etienne, TEXTILE BROKER.FACING GRINDER [address] [place] [address] Hadoop Architect Internal Medicine 03/18/24 Jenn Vidales RN [address] [place] [address] Rasper Machine Operator 07/15/2410/15 Pan Dumper Relationship Specialty Start Date End Date Florian Gonzalez MD [address] [facility] [place] [address] PCP - General Internal Medicine 05/05/21 Preethi Portillo MD [address] [place] [address] Family Medicine 02/13/19 Shea Etienne, TEXTILE BROKER.FACING GRINDER [address] [place] [address] Hadoop Architect Internal Medicine 03/18/24 Jenn Vidales RN [address] [place] [address] Rasper Machine Operator 07/15/2410/15 Pan Dumper Relationship Specialty Start Date End Date Florian Gonzalez MD [address] [place] [address] PCP - General Internal Medicine 05/05/21 Preethi Portillo MD [address] [place] [address] Family Medicine 02/13/19 Shea Etienne, TEXTILE BROKER.FACING GRINDER [address] [place] [address] Hadoop Architect Internal Medicine 03/18/24 Pan Dumper Relationship Specialty Start Date End Date Florian Gonzalez MD [address] [place], [place] [address] PCP - General Internal Medicine 05/05/21 Preethi Portillo MD [address] [place] [address] [facility] 02/13/19 Shea Etienne, TEXTILE BROKER.FACING GRINDER [address] [place], [place] [address] [facility] Internal Medicine 03/18/24 Pan Dumper Relationship Specialty Start Date End Date Florian Gonzalez MD [address] [place], [place] [address] PCP - General Internal Medicine 05/05/21 Preethi Portillo MD [address] [place] [address] [facility] 02/13/19 Shea Etienne, TEXTILE BROKER.FACING GRINDER [address] [place], [place] [address] [facility] Internal [facility] 03/18/24 Reason for Visit (unrecogniz ed section and content) Reason Comments OT Treatment Specialty Diagnoses / Procedures Referred By Contbertha t Referred To Contact Occupational Therapy Diagnoses 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 Procedures WA OFFICE/OUTPATIENT [facility] 60-74 MINUTES Berenice Hanks PA-C [address] [facility] [address] [place] [address] Lilian Zuniga Ot [address] [facility] [address] [place] [address] Referral ID Status Reason Start Date Expiration Date Visits Requested Visits Authorized [id number] Authorized Specialty Services Required 05/31/2022 05/31/2023 99 99 Reason Comments OT Re-evaluation Reason Onset Date Comments Refill Request 07/30/2021 Reason Comments F/U 3 Month Specialty Diagnoses / Procedures Referred By Famac t Referred To Contact Internal Medicine / INTERNAL MEDICINE Diagnoses 3 month follow-up Procedures 4C EST Florian Gonzalez MD [address] [place] [address] OlderShea, TEXTILE BROKER.FACING GRINDER [address] [place] [address] Referral ID Status Reason Start Date Expiration Date Visits Re quested Visits Authorized [id number] Closed 08/13/2021 04/09/2022 1 1 Reason Onset Date Comments Refill Request 09/01/2021 Reason Comments Consult Initial [facility] Pt Outr each Reason Comments Cardiology Follow Up medication review Fall 07/24/21 pt fell. lig htheaded - 08/03/21 fell in bedroom lightheaded. Reason Comments Consult [facility] Returned Pt's V m Reason Comments Consult [facility] Pt Outreach F/U Reason Comments Consult [facility] Assessment Virt [facility] Specialty Diagnoses / Procedures Referred By Sweetie t Referred To Contact Psychiatry / ADULT PSYCHOLOGY Diagnoses First eval Procedures VIDEO PSYC/PSYL NEW Florian Gonzalez MD [address] [place] [address] Reji Ham LISW [address] [place] [address] Referral ID Status Reason Start Date Expiration Date V isits Requested Visits Authorized [id number] Authorized 04/10/2021 04/09/2022 99 99 Reason Onset Date Comments Refill Request 11/26/2021 Reason Comments New Patient Evaluation Reason Comments Follow Up Reason Comments Patient Question Reason Comments Refill Request Reason Comments Cardiology Follow Up Medication review Reason Onset Date Comments Refill Request 02/24/2022 Reason Comments Derm Problem Reason Onset Date Comments Refill Request 03/24/2022 Reason Comments Covid Positive Reason Onset Date Comments Refill Request 03/31/2022 Reason Onset Date Comments Refill Request 05/05/2022 Reason Comments Medicare Wellness Exam Reason Comments Follow Up Specialty Diagnoses / Procedures [facility] Referred To Contact Psychiatry / ADULT PSYCHIATRY Diagnoses med check Procedures EST PSYC ADULT Self Rajguru, Quincy J, TEXTILE BROKER.FACING GRINDER [address] [place] [address] Referral ID Status Reason Start Date Expiration Date V isits Requested Visits Authorized [id number] Pending Review 03/30/2022 06/28/2022 1 1 Reason Comments Ear Problem Penis/Scrotum Problem Reason Onset Date Comments Refill Request 06/22/2022 Specialty Diagnoses / Procedures Referred By Sweetie snowden Referred To Contact Diagnoses Primary osteoarthritis, left wrist Left qetmhvuh-Obojiesmx-nwwlgdlso joint arthritis Procedures WA ARTHRP INTERPOS INTERCARPAL/METACARPAL JOINTS Left thumb carpometacarpal arthroplasty with partial excision trapezoid Toya Smith MD [address] [facility] [address] [place] [address] [facility] [address] [place] [address] Referral ID Status Reason Start Date Expiration Date Visits Re quested Visits Authorized [id number] 1 Reason Comments Post-op DOS 07/01/2022- Left thumb carpometacarpal arthroplasty and intrinsic release, partial excision trapezoid Reason Comments OT Initial Eval custom splinting Reason Onset Date Comments Medication Problem 07/01/2022 Reason Comments F/U 6 months Reason Comments Follow Up Urinary Incontinence Balanitis Specialty Diagnoses / Procedures Referred By Sweetie snowden Referred To Contact Urology Diagnoses Balanitis Urge incontinence of urine Procedures CONSULT TO UROLOGY OFFICE/OUTPATIENT [facility] MDM 60-74 MINUTES Florian Gonzalez MD [address] [place] [address] Referral ID Status Reason Start Date Expiration Date V isits Requested Visits Authorized [id number] Closed PCP Requested Referral 11/08/2022 11/08/2023 1 1 Reason Onset Date Comments Refill Request 11/22/2022 Reason Comments Acute Visit Right leg pain x1 mo nth Reason Onset Date Comments Refill Request 12/21/2022 Reason Comments Follow-up LEFT thumb carpometa carpal arthroplasty with partial excision trapezoid on 07/01/22 Reason Comments Rash Reason Comments Follow Up Benign Prostatic Hypertrophy Urinary Urgency Specialty Diagnoses / Procedures Referred By Contac t Referred To Contact Urology / UROLOGY Diagnoses Balanitis Three month follow up- Ditropan Procedures OFFICE/OUTPATIENT ESTABLISHED HIGH MDM 40-54 MIN EST UROL Florian Gonzalez MD [address] [place] [address] Antonio Stahl PA-C [address] [place] [address] Referral ID Status Reason Start Date Expiration Date V isits Requested Visits Authorized [id number] Authorized 02/07/2023 04/09/2023 99 99 Reason Comments Cardiology Follow Up Medication review. Reason Onset Date Comments Refill Request 02/24/2023 Reason Comments Medicare Wellness Exam Reason Comments PT Eval Patient Education Specialty Diagnoses / Procedures Referred By Contac t Referred To Contact [facility] Diagnoses Bursitis of other bursa of right hip Procedures CONSULT TO PHYSICAL THERAPY PHYSICAL THERAPY EVALUATION HIGH COMPLEX 45 MINS Florian Gonzalez MD [address] [place] [address] [facility] [place] [address] [place] [address] Referral ID Status Reason Start Date Expiration Date Visits Requested Visits Authorized [id number] Authorized Auto-Generat ed Referral 04/10/2023 04/09/2024 99 99 Reason Comments Pain Reason Comments Appointment Reason Onset Date Comments Refill Request 11/01/2023 Reason Comments Follow Up Depression/anxiety/p tsd Specialty Diagnoses / Procedures Referred By Contac t Referred To Contact Psychiatry / ADULT PSYCHIATRY Diagnoses 3 Month Follow-Up Procedures [facility] ADULT Quincy Alonzo, TEXTILE BROKER.FACING GRINDER [address] [place] [address] Quincy Alonzo, TEXTILE BROKER.FACING GRINDER [address] [place] [address] Referral ID Status Reason Start Date Expiration Date V isits Requested Visits Authorized [id number] Pending Review 10/31/2023 01/29/2024 1 1 Reason Comments F/U 6 months Reason Comments Cardiac Clearance 02/22/2023 colon asc open access Reason Comments New Patient Left wrist pain Specialty Diagnoses / Procedures Referred By Contac t Referred To Contact Orthopedic Surgery Diagnoses Other specified sprain of left wrist, initial encounter Procedures [place] OFFICE/OUTPATIENT NEW MODERATE MDM 45-59 MINUTES Eval and treat Matt Marie [address] [place] [address] Toya Smith MD [address] [facility] [address] [place] [address] Referral ID Status Reason Start Date Expiration Date V isits Requested Visits Authorized [id number] Pending Review 02/09/2022 08/08/2022 1 1 Reason Comments Injections Usg lt wrist injecti on Reason Comments Follow-up Left wrist pain Reason Comments Cardiology Follow Up Virtual visit Reason Comments Medicare Wellness Exam 6 months Reason Onset Date Comments Refill Request 05/14/2024 Reason Comments Follow Up Depression/Anxiety Specialty Diagnoses / Procedures Referred By Contac t Referred To Contact Psychiatry / ADULT PSYCHIATRY Diagnoses 7 mo follow up Procedures EST PS ADULT Quincy Alonzo, TEXTILE BROKER.FACING GRINDER [address] [place] [address] Phone: tel: fax: Quincy Alonzo, TEXTILE BROKER.FACING GR[employer]ER [address] [place] [address] Phone: tel: fax: Referral ID Status Reason Start Date Expiration Date V isits Requested Visits Authorized [id number] New Request 05/28/2024 08/26/2024 1 1 Reason Comments Cough Reason Comments Pain Reason Comments Med Change Request Reason Comments bh consult Reason Comments Follow Up PTSD/Anxiety/Depress ion Specialty Diagnoses / Procedures Referred By Contac t Referred To Contact Psychiatry / ADULT PSYCHIATRY Diagnoses rescheduled follow up Procedures EST PS ADULT Quincy Alonzo, TEXTILE BROKER.FACING GRINDER [address] [place] [address] Phone: tel: fax: Quincy Alonzo, TEXTILE BROKER.FACING GR[employer]ER [address] [place] [address] Phone: tel: fax: Referral ID Status Reason Start Date Expiration Date V isits Requested Visits Authorized [id number] New Request 08/06/2024 11/04/2024 1 1 Reason Onset Date Comments Transition Of Care 09/13/2024 Inbound call Reason Onset Date Comments Escalation of Care 09/13/2024 Reason Onset Date Comments Care Coordination 09/13/2024 Chart review a nd outreach for CHF GDMT Care Path Reason Comments Spirometry Specialty Diagnoses / Procedures [facility] Referred To Contact [facility] [place] Diagnoses Chronic obstructive pulmonary disease, unspecified COPD type (HCC) Procedures LUNG DIFFUSION CAPACITY (DLCO) DIFFUSING CAPACITY Josselin Maldonado MD [address] [place] [address] Phone: tel: fax: [facility] [address] [address] Referral ID Status Reason Start Date Expiration Date V isits Requested Visits Authorized [id number] Closed Auto-Generate d Referral 09/13/2024 04/09/2025 1 1 Specialty Diagnoses / Procedures Referred By [facility] Referred To Contact [facility] [place] Diagnoses Chronic obstructive pulmonary disease, unspecified COPD type (HCC) Procedures SPIROMETRY WITH DILATOR IF OBSTRUCTED BRNCDILAT RSPSE SPMTRY PRE&POST-BRNCDILAT ADMN Josselin Maldonado MD [address] [place] [address] Phone: tel: fax: [facility] [place] [address] [place] [address] Referral ID Status Reason Start Date Expiration Date V isits Requested Visits Authorized [id number] Closed Auto-Generate d Referral 09/13/2024 04/09/2025 1 1 Specialty Diagnoses / Procedures Referred By Contac t Referred To Contact [facility] [place] Diagnoses Cough, unspecified type Procedures NITRIC OXIDE, EXHALED NITRIC OXIDE GAS DETERMINATION Josselin Maldonado MD [address] [place] [address] Phone: tel: fax: [facility] [place] [address] [place] [address] Referral ID Status Reason Start Date Expiration Date V isits Requested Visits Authorized [id number] Closed Auto-Generate d Referral 09/17/2024 04/09/2025 1 1 Reason Comments New Patient COPD Reason Onset Date Comments Results 09/18/2024 Reason Onset Date Comments Refill Request 09/19/2024 Reason Comments Appointment Rescheduled Specialty Diagnoses / Procedures Referred By Contac t Referred To Contact Diagnoses Generalized anxiety disorder Procedures PROVIDER ORDERED FOLLOW UP OFFICE/OUTPATIENT NEW HIGH MDM 60 MINUTES Quincy Alonzo, TEXTILE BROKER.FACING GRINDER [address] [place] [address] Phone: tel: fax: Referral ID Status Reason Start Date Expiration Date Visits Requested Visits Authorized [id number] Pending Review PCP Requested Referral 08/06/2024 08/06/2025 1 1 Reason Comments Head Injury back injury Reason Comments Fall X 5 days : lower arturo k pain, bilateral shoulders Reason Comments Follow Up Anxiety/PTSD/Depress ion Specialty Diagnoses / Procedures Referred By Contac t Referred To Contact Psychiatry / ADULT PSYCHIATRY Diagnoses Provider ordered sooner follow up Procedures [facility] ADULT Quincy Alonzo, TEXTILE BROKER.FACING GRINDER [address] [place] [address] Phone: tel: fax: Quincy Alonzo, TEXTILE BROKER.FACING GRINDER [address] [place] [address] Phone: tel: fax: Referral ID Status Reason Start Date Expiration Date V isits Requested Visits Authorized [id number] New Request 10/08/2024 01/06/2025 1 1 Reason Comments Follow Up Urinary Incontinence Specialty Diagnoses / Procedures Referred By Contac t Referred To Contact Psychiatry / ADULT PSYCHIATRY Diagnoses R/S from VV issues on 09/23/24. Patient requested in office visit Procedures PROVIDER ORDER FOLLOW PSYC/YL Quincy Alonzo, TEXTILE BROKER.FACING GRINDER [address] [place] [address] Phone: tel: fax: Quincy Alonzo APRN.FACING GRINDER [address] [place] [address] Phone: tel: fax: Referral ID Status Reason Start Date Expiration Date V isits Requested Visits Authorized [id number] New Request 11/12/2024 02/10/2025 1 1 Care Team (unrecognized sect ion and content) Care Team Personnel Name: FLORIAN GONZALEZ MD Member Role: Primary Care Physician Address: Address: [address] [place] [address]- Scheduled Active and Recently Administ ered Medications (unrecognized section and content) Medication Order 06/29/2022 06/30/2022 07/01/2022 acetaminophen (Tylenol) tablet 1,000 mg (COMPLETED) 1,000 mg, Oral, Once, On Mon07/01/22 at 1030, For 1 dose, Preprocedure, Maximum dose of acetaminophen is 4000 mg from all sources in 24 hours. Do not administer if patient has taken tylenol <4 hours earlier. Do not give if contraindicated ie. patient has active liver disease or cirrhosis. 1116 (Given - Provid er: Samina Jameson RN) ceFAZolin in dextrose 4% (Ancef) IVPB 2,000 mg 2,000 mg, IntraVENous, Administer over 30 Minutes, Forging Roll Operator to O.R., On Mon07/01/22 at 1030, For 1 dose, Preprocedure, Administer within 1 hour prior to incision. Recommend to repeat in 3-4 hours after initial dose if still intra-op. premix bag, Suspected Indication (Select all that apply): Surgical Prophylaxis 1030 (Canceled Entry - Provider: Automatic Discharge Provider - Comment: Automatically canceled at discontinue of medication order) famotidine (Pepcid) tablet 20 mg (COMPLETED) 20 mg, Oral, Once, On Mon07/01/22 at 1030, For 1 dose, Preprocedure 1116 (Given - Provid er: Samina Jameson RN) sodium chloride 0.9 % bolus 500 mL 500 mL, IntraVENous, at 1,000 mL/hr, Administer over 0.5 Hours, Once, On Mon07/01/22 at 1315, For 1 dose, Recovery (only), Indications: Anti-nausea 1315 (Canceled Entry - Provider: Automatic Discharge Provider - Comment: Automatically canceled at discontinue of medication order) sodium chloride 0.9% (NS) flush 10 mL 10 mL, IntraVENous, Every 12 hours scheduled (2 times per day), First dose on Mon07/01/22 at 1030, Preprocedure 1030 (Canceled Entry - Provider: Automatic Discharge Provider - Comment: Automatically canceled at discontinue of medication order) sodium chloride 0.9% (NS) flush 5-40 mL 5-40 mL, IntraVENous, Every 12 hours, First dose on Mon07/01/22 at 1030, Preprocedure, For Line Patency: Peripheral IV = 5 mL; Midline or Central Line = 10 mL/lumen. If following IV push medication, administer flush at same rate as the IV push. Flush volume is determined by type of infusion therapy being given. For non-viscous solutions use: Peripheral IV = 5 mL Midline or Central Line = 10 mL/lumen For viscous solutions (i.e. blood components, parenteral nutrition, contrast media, or after obtaining blood sample) use: Peripheral IV = 10 mL Midline or Central Line = 20 mL/lumen 1030 (Canceled Entry - Provider: Automatic Discharge Provider - Comment: Automatically canceled at discontinue of medication order) Continuous Medication Order 06/29/2022 06/30/2022 07/01/2022 lactated Ringer's infusion 50 mL/hr, IntraVENous, Continuous, Starting on Mon07/01/22 at 1030, Preprocedure, Upon admission to sameday - please start iv if patient does not have iv access. Use 500ml NS for patients on dialysis. 1118 (New Bag - Prov ider: Samina Jameson RN)1156 (Continued by Anesthesia - Provider: BRAD Moya CRNA)1259 (Anesthesia Volume Adjustment - Provider: BRAD Moya CRNA)1318 (Stopped - Provider: BRAD Moya CRNA) lactated ringers infusion 125 mL/hr, IntraVENous, Continuous, Starting on Mon07/01/22 at 1315, Recovery (only) 1315 (Canceled Entry - Provider: Automatic Discharge Provider - Comment: Automatically canceled at discontinue of medication order) PRN Medication Order 06/29/2022 06/30/2022 07/01/2022 diphenhydrAMINE (BENADryl) injection 12.5 mg 12.5 mg, IntraVENous, Once PRN, itching, Starting on Mon07/01/22 at 1308, For 1 dose, Recovery (only) gelatin absorbable (Gelfoam) sponge (CANCELED) As needed, Starting on Mon07/01/22 at 1231, Intraprocedure 1231 (Given - Provid er: Toya Smith MD) hydrALAZINE (Apresoline) injection 5 mg(Linked Group 1) 5 mg, IntraVENous, Every 15 min PRN, high blood pressure, for SBP greater than 160 mmHg for 2 consecutive measurements taken from different sites, Starting on Mon07/01/22 at 1308, For 2 doses, Recovery (only), PRN for SBP > 160 for 2 consecutive measurements, and if one of the following conditions is met: 1) If IV labetolol is ineffective. 2) If HR is under 60. 3) If patient has heart block, COPD or asthma. If both labetalol and hydralazine ineffective, notify anesthesia provider. HYDROmorphone (Dilaudid) injection 0.25 mg 0.25 mg, IntraVENous, Every 5 min PRN, moderate pain (4-6), Starting on Mon07/01/22 at 1308, For 4 doses, Recovery (only), Phase I and Phase II- Initial therapy for moderate pain (4-6). Restricted to a 90 minute time frame starting when the patient can verbally state their pain score. If after 2 doses the pain score does not decrease by more than one point, then call the provider. If oral meds are utilized, do not return to initial therapy medications. HYDROmorphone (Dilaudid) injection 0.5 mg 0.5 mg, IntraVENous, Every 5 min PRN, severe pain (7-10), Starting on Mon07/01/22 at 1308, For 4 doses, Recovery (only), Phase I and Phase II- Initial therapy for moderate pain (4-6). Restricted to a 90 minute time frame starting when the patient can verbally state their pain score. If after 2 doses the pain score does not decrease by more than one point, then call the provider. If oral meds are utilized, do not return to initial therapy medications. labetalol (Normodyne,Trandate) injection 5 mg(Linked Group 1) 5 mg, IntraVENous, Every 10 min PRN, high blood pressure, for SBP greater than 160 mmHg for 2 consecutive measurements taken from different sites., Starting on Mon07/01/22 at 1308, For 2 doses, Recovery (only), PRN for SBP >160 for 2 consecutive measurements, if HR is 60 or greater. If beta edgar is contraindicated (HR less than 60, heart block, COPD or asthma) use hydralazine IV order. lidocaine-EPINEPHrine (Xylocaine W/EPI) 1 %-1:216107 injection (CANCELED) As needed, Starting on Mon07/01/22 at 1230, Intraprocedure 1230 (Given - Provid er: Toya Smith MD - Comment: left hand) LORazepam (Ativan) injection 0.5 mg 0.5 mg, IntraVENous, Once PRN, for anxiety or muscle spasm., Starting on Mon07/01/22 at 1308, For 1 dose, Recovery (only), For IV doses dilute dose with 1ml NS. metoclopramide (Reglan) injection 5 mg 5 mg, IntraVENous, Once PRN, nausea, Starting on Mon07/01/22 at 1308, For 1 dose, Recovery (only), Secondary antiemetic therapy. Notify anesthesia provider before administration. ondansetron (Zofran) injection 4 mg 4 mg, IntraVENous, Once PRN, nausea, Starting on Mon07/01/22 at 1308, For 1 dose, Recovery (only), Initial antiemetic therapy. oxyCODONE (Roxicodone) immediate release tablet 5 mg (COMPLETED) 5 mg, Oral, PRN, moderate pain (4-6), Starting on Mon07/01/22 at 1308, For 1 dose, Recovery (only), PHASE II 1400 (Given - Provid er: Loly Mendez RN) sodium chloride 0.9 % infusion 5-250 mL/hr, IntraVENous, PRN, if patient receiving piggyback infusions and maintenance fluids are not ordered OR KVO fluids to protect IV site / prevent frequent line interruptions / long duration, Starting on Mon07/01/22 at 1025, Preprocedure, For piggyback infusion, administer at same rate as piggyback for a total of 25 mL. Enter 25 mL into dose field and piggyback rate into rate field of order. If piggyback is infusing at a rate less than 100 mL/hr, enter 25 mL into dose field and 100 mL/hr into rate field of order. For KVO fluids, enter rate of 20 mL/hr or less into rate field of order. sodium chloride 0.9 % infusion 5-250 mL/hr, IntraVENous, PRN, if patient receiving piggyback infusions and maintenance fluids are not ordered OR KVO fluids to protect IV site / prevent frequent line interruptions/ long duration, Starting on Mon07/01/22 at 1025, Preprocedure, For piggyback infusion, administer at same rate as piggyback for a total of 25 mL. Enter 25 mL into dose field and piggyback rate into rate field of order. If piggyback is infusing at a rate less than 100 mL/hr, enter 25 mL into dose field and 100 mL/hr into rate field of order. For KVO fluids, enter rate of 20 mL/hr or less into rate field of order. sodium chloride 0.9 % irrigation solution (CANCELED) As needed, Starting on Mon07/01/22 at 1230, Intraprocedure 1230 (Given - Provid er: Toya Smith MD - Comment: left hand) sodium chloride 0.9% (NS) flush 10 mL 10 mL, IntraVENous, PRN, line care, Starting on Mon07/01/22 at 1025, Preprocedure, After every IV line use sodium chloride 0.9% (NS) flush 5-40 mL 5-40 mL, IntraVENous, PRN, line care, After every IV line use, Starting on Mon07/01/22 at 1025, Preprocedure, For Line Patency: Peripheral IV = 5 mL; Midline or Central Line = 10 mL/lumen. If following IV push medication, administer flush at same rate as the IV push. Flush volume is determined by type of infusion therapy being given. For non-viscous solutions use: Peripheral IV = 5 mL Midline or Central Line = 10 mL/lumen For viscous solutions (i.e. blood components, parenteral nutrition, contrast media, or after obtaining blood sample) use: Peripheral IV = 10 mL Midline or Central Line = 20 mL/lumen Linked Groups Order Group 1: labetalol (Normodyne,Trandate) injection 5 mgJump to med 5 mg, IntraVENous, Every 10 min PRN, high blood pressure, for SBP greater than 160 mmHg for 2 consecutive measurements taken from different sites., Starting on Mon07/01/22 at 1308, For 2 doses, Recovery (only)
PRN for SBP >160 for 2 consecutive measurements, if HR is 60 or greater. If beta edgar is contraindicated (HR less than 60, heart block, COPD or asthma) use hydralazine IV order.
Or hydrALAZINE (Apresoline) injection 5 mgJump to med 5 mg, IntraVENous, Every 15 min PRN, high blood pressure, for SBP greater than 160 mmHg for 2 consecutive measurements taken from different sites, Starting on Mon07/01/22 at 1308, For 2 doses, Recovery (only)
PRN for SBP > 160 for 2 consecutive measurements, and if one of the following conditions is met: 1) If IV labetolol is ineffective. 2) If HR is under 60. 3) If patient has heart block, COPD or asthma. If both labetalol and hydralazine ineffective, notify anesthesia provider.
FOR RECORDS PERTAINING TO PATIENTS WHO ARE OR HAVE BEEN ENROLLED IN A CHEMICAL DEPENDENCY/SUBSTANCEABUSE PROGRAM, SOME INFORMATION MAY BE OMITTED. This clinical summary was aggregated from multiple sources. Caution should be exercised in using it in the provision of clinical care. This summary normalizes information from multiple sources, and as a consequence, information in this document may materially change the coding, format and clinical context of patient data. In addition, data may be omitted in some cases. CLINICAL DECISIONS SHOULD BE BASED ON THE PRIMARY CLINICAL RECORDS. [employer] provides no warranty or guarantee of the accuracy or completeness of information in this document.
[2024-12-29] MEDS: 0.9% Normal Saline (1000mL) 1,000 ML 1000 ML IV (21:13)
[2024-12-29 23:01] VITALS: BP 129/74; PULSE 64; RESP 14; O2SAT 99
--- NOTE | 2024-12-29 23:18 | HP.PCM.HOS_ITS ---
HPI - General General Date of Admission: 12/29/24 Date of Service: 12/29/24 Chief Complaint: Dizziness, fall. HPI Narrative The patient is a 74 y/o M w/ PMHx: Obesity s/p prior gastric bypass, GERD w/ Hx GI bleed, Hx VTE (DVT, PE), LEXIE, BPH, PAF s/p MAZE, Anxiety and Depression/mood disorder, COPD, Chronic normocytic anemia, CKD stage II per GFR trending who presents to the [facility] ED on 12/29/2024 with history of episode of dizziness with mechanical fall on anticoagulant therapy with notable discomfort generalized as well as to his knee and shoulder rating it 7 out of 10 in severity prompting EMS call and transition to the ED for evaluation. He notes that with the dizziness he felt the room spinning which lasted ~ 5 minutes similar to a prior episode remotely. Patient reports that he has had increased frequent falls. He lives with his sister who is also older and has a significant fall history as well. Patient denies any neurological symptoms associated. Workup in the ED included T98.3, heart 84, BP 120/109, respiratory rate 16, 98% on room air with most recent repeat vitals heart rate 64, BP 129/74, respiratory rate 14, 99% on room air, CBC with WC 9.6, hemoglobin 11.4, MCV 92.1, platelet 202 without marked shift, BMP with BUN/Cryan 20/1.13, GFR 69, glucose 110, CT brain with no acute intracranial findings, CT cervical spine with no acute fracture or malalignment, plain film of the left femur with no acute osseous injury, plain film of the pelvis with no acute displaced fracture of the pelvis noted. In the ED patient ministered 1 L normal saline and morphine 4 mg IV x 1. [facility] Medical History Retinal detachment Syncope Postsurgical dumping syndrome Guillaume syndrome COPD (chronic obstructive pulmonary disease) Chest pain BPH (benign prostatic hyperplasia) GI bleed Anxiety and depression LEXIE (obstructive sleep apnea) Pulmonary embolism DVT (deep venous thrombosis) History of cardioversion Afib Home Medications ?Medication ?Instructions ?Recorded ?Last Taken ?Type albuterol sulfate 90 mcg/actuation 90 mcg IH PRN PRN W bing 10/15/19 Unknown History breath activated powder inhaler,sensor atorvastatin 20 mg tablet 20 mg PO DAILY 10/15/19 Unkn own History calcium 315 mg (as 1 ea PO DAILY 10/15/19 Unkno wn History citrate)-vitamin D3 6.25 mcg (250 unit) tablet cholecalciferol (vitamin D3) 25 1,000 unit PO DAILY Unknown History mcg (1,000 unit) tablet multivitamin 1 ea PO DAILY 10/15/19 Unkno wn History pyridoxine (vitamin B6) 100 mg 100 mg PO DAILY 0 Unknown History tablet pantoprazole 40 mg tablet,delayed 40 mg PO DAILY 07/21 Unknown History release bisoprolol fumarate 5 mg tablet 5 mg PO DAILY 09/13/24 Unknown History buspirone 15 mg tablet 15 mg PO BID 09/13/24 Unknow n History digoxin 250 mcg (0.25 mg) tablet 250 mcg PO DAILY 10/02 Unknown History docusate sodium 100 mg capsule 100 mg PO BID PRN const ipation 09/13/24 Unknown History fludrocortisone 0.1 mg tablet 0.1 mg PO DAILY 09/13/24 Unknown History lamotrigine 100 mg tablet 100 mg PO DAILY 09/13/24 Unk nown History omega-3 fatty acids 1,000 mg 1,000 mg PO QDAY 09/13/24 Unknown History capsule oxybutynin chloride 5 mg 5 mg PO DAILY 09/13/24 Unkno wn History tablet,extended release 24 hr quetiapine 50 mg tablet 50 mg PO QHS 09/13/24 Unknow n History sertraline 100 mg tablet 200 mg PO DAILY 09/13/24 Unk nown History apixaban 5 mg tablet 5 mg PO .COMPLEX #180 tabs 0 09/19/24 Unknown Rx Allergy/AdvReac Type Severity Reaction Status Date / Time diclofenac Allergy Rash Verified 12/29/24 19:36 rivaroxaban (From Xarelto) Allergy Rash Verified 12/29/24 19:36 Sulfa (Sulfonamide Allergy Rash Verified 12/29/24 19:36 Antibiotics) niacin AdvReac Mild Rash Verified 12/29/24 19:36 Family History (Updated 12/30/24 @ 00:[address] Karen Olivo MD) Mother Cancer Father CAD (coronary artery disease) Heart disease Hypertension Myocardial infarction Surgical History History of esophagogastroduodenoscopy (EGD) History of lumbar discectomy History of cystoscopy History of back surgery History of colonoscopy History of cholecystectomy History of appendectomy History of maze procedure H/O total hip arthroplasty Gastric bypass status for obesity Social History (Updated 12/30/24 @ 00:[address] Karen Olivo MD) household members: family and other details: Notes his sister lives with him. Smoking Status: Never smoker alcohol intake: never substance use type: does not use ROS ROS Narrative Admission Review of Systems: CONSTITUTIONAL: No weight loss, fever, chills, + weakness or fatigue. HEENT: + Recent fall with bruising to the face. Eyes: No visual loss, blurred vision, double vision or yellow sclerae. Ears, Nose, Throat: No hearing loss, sneezing, congestion, runny nose or sore throat. SKIN: No rash or itching, lesions, wounds except + occasional stage ecchymoses, abrasions. CARDIOVASCULAR: No chest pain, chest pressure or chest discomfort, palpitations, edema, orthopnea, syncopal events. RESPIRATORY: No shortness of breath, cough or sputum, wheezing, hemoptysis. GASTROINTESTINAL: No anorexia, nausea, vomiting or diarrhea, abdominal pain, melena, BRBPR. GENITOURINARY: No dysuria, frequency, urgency or retention. NEUROLOGICAL: + Episode of BPPV/dizziness/vertiginous episode, frequent falls. No headache, syncope, paralysis, ataxia, numbness or tingling in the extremities, focal weakness, change in bowel or bladder control, seizure. MUSCULOSKELETAL: + muscle, back pain, joint pain or stiffness, muscle spasms. HEMATOLOGIC: + Chronic anemia, easy bleeding/bruising. LYMPHATICS: No enlarged nodes. No history of splenectomy. PSYCHIATRIC: + History of anxiety and depression. ENDOCRINOLOGIC: No reports of sweating, cold or heat intolerance. No polyuria or polydipsia. ALLERGIES: No history of asthma, hives, eczema or rhinitis. Vital Signs Vital Signs Vital Signs: 12/29/24 19:34 12/29/24 21:00 12/29/24 23:01 Temperature 98.3 F Temperature Source Oral Pulse Rate 84 74 64 Respiratory Rate 16 18 14 Blood Pressure 128/109 H 140/98 H 129/74 H Blood Pressure Mean 115 112 92 Pulse Ox 98 100 99 Oxygen Delivery Method Room Air Room Air Room Air Weight Weight: 239 lb 9 oz Body Mass Index (BMI) 31.6 Physical Exam Narrative Physical Examination: General: Awake, alert, oriented x 3 and cooperative, laying in ED bed, notes generalized discomfort especially to the hips and face with recent falls. Skin: Normal color, normal turgor, no icterus, no cyanosis except occasional stage ecchymoses, abrasions including to the face. HEENT: AT aside from bruising to the face/NC, EOMI, PERRLA, MMM, no carotid bruits or JVD noted. Lungs: CTA bilaterally, moderate effort, mild decrease BL bases, no appreciated rales, ronchi or wheezing. Heart: Regular rate and rhythm; no gallop, rub audible. Abdomen: Soft, obese, NTTP, ND, hyperactive BS, no appreciated HSM. Extremities: No cyanosis, no clubbing, mild bilateral ankle not markedly pitting edema Neurological: Patient awake, alert, oriented as noted, cognitive function intact; pupils equally reactive to light and accommodation, cranial nerves grossly normal, moving all 4 extremities, no focal deficits, strength moderately to severely globally decreased secondary to recent falls and debility, complaining of muscle pain and spasms. Psychiatric: Affect appears fatigued otherwise normal, no acute evidence of depressive or anxiety feelings but does have underlying history. Results Lab / Micro Data 12/29/24 20:07 12/29/24 20:07 Labs: Laboratory Results - last 24 hr 12/29/24 20:07: WBC 9.6, RBC 3.66 L, Hgb 11.4 L, Hct 33.7 L, MCV 92.1, MCH 31.1, MCHC 33.8, RDW Std Deviation 47.8 H, RDW Coeff of Anmol 14.1, Plt Count 202, MPV 11.5, Immature Gran % (Auto) 0.400, Neut % (Auto) 74.9 H, Lymph % (Auto) 19.1, [place] % (Auto) 3.9, Eos % (Auto) 1.3, Baso % (Auto) 0.4, Absolute Neuts (auto) 7.2, Absolute Lymphs (auto) 1.83, Nucleated RBC % 0, Sodium 138, Potassium 4.0, Chloride 103, Carbon Dioxide 21.6, Anion Gap 13, BUN 20 H, Creatinine 1.13, Estim Creat Clear Calc 76.40, Est GFR (MDRD) Non-Af 69, BUN/Creatinine Ratio 17.5, Glucose 101 H, Calcium 9.1 Imaging Radiology Impression Brain CT 12/29/24 20:28 IMPRESSION: No evidence of acute intracranial injury. No evidence of acute intracranial hemorrhage or acute calvarial fracture. - Other findings and recommendations discussed above. Reading Location: [facility] Cervical Spine CT 12/29/24 20:28 IMPRESSION: No acute fracture of the cervical spine. - Other findings and recommendations discussed above. Reading Location: [facility] Femur X-Ray 12/29/24 21:00 IMPRESSION: No radiographic evidence of an acute osseous injury of the left femur. - Other findings discussed above in detail. Reading Location: [facility] Pelvis X-Ray 12/29/24 21:00 IMPRESSION: No radiographic evidence of an acute displaced fracture of the pelvis. - Other findings and limitations discussed above. Reading Location: [facility] Assessment & Plan Assessment/Plan (1) Adult failure to thrive: PLAN: Plan The patient is a 74 y/o M w/ PMHx: Obesity s/p prior gastric bypass, GERD w/ Hx GI bleed, Hx VTE (DVT, PE), LEXIE, BPH, PAF s/p MAZE, Anxiety and Depression/mood disorder, COPD, Chronic normocytic anemia, CKD stage II per GFR trending who presents to the [facility] ED on 12/29/2024 with history of episode of dizziness with mechanical fall on anticoagulant therapy with notable discomfort generalized as well as to his knee and shoulder rating it 7 out of 10 in severity prompting EMS call and transition to the ED for evaluation. #1. Episode of vertigo/BPPV with prior history with mechanical fall, adult failure to thrive: Fortunately imaging with no acute concerning findings. Will admit to medical surgical floor, maintain on fall precautions, obtain admission orthostatic and AM orthostatic VS if notable although clinically similar to episode vertigo BPPV he had prior and now resolved, continue judicious hydration, PT/OT/case management consulted for discharge planning. If any recurrent vertigo would initiate meclizine. #2. Chronic normocytic anemia: Admission hemoglobin 11.4, MCV 92.1, baseline hemoglobin more recently noted to be 12 range, will continue to trend CBC. #3. Chronic Kidney Disease Stage II per GFR trend: Admission BUN/Cr 20/1.13, GFR 69, baseline renal function primarily 0.8-1.0, repeat BMP in AM. #4. Chronic COPD: Per current list does not appear to be on regimen, will have PRN albuterol, HOB, IS parameters. #5. Anxiety and depression/mood disorder: Will continue patient home sertraline, Seroquel, lamotrigine, BuSpar home regimen with hold parameters for sedation. #6. PAF: Status post previous Maze procedure, will continue patient apixaban, bisoprolol and digoxin home regimen. #7. Hypertension: Continue home regimen including bisoprolol with hold parameters as needed, PRN hydralazine. #8. Hyperlipidemia: Will continue patient on statin therapy. #9. GERD with history GI bleed: Will continue patient on PPI. #10. Obesity: Status post previous gastric bypass of note, weight loss and lifestyle changes will continue to be encouraged. #11. History of VTE: Patient with previous history DVT, PE, continue patient home Eliquis regimen. #12. BPH with unclear obstructive pathology history: Per current list does not appear to be on any regimen, continue to monitor for retention. #13. LEXIE: Encourage PAP therapy nightly. #14. DVT prophylaxis: Will cautiously continue patient apixaban regimen given recent falls. #15. CODE status: Patient THOR is his son and living will is currently in place. Discussed CODE status at length including difference between FULL code, DNR-CCA and DNR-CC status. Following discussions about the differences in these status, requested DNR CCA and following further examples and discussions with allowance of short-term intubation only. Advanced Care Planning Face to Face Time: 16 minutes. Charges/Coding Visit Charges Inpatient E&M: 52719 Init Hosp L2 Procedures Hospitalists Procedures: 26885 Advncd Care Plan 30 Min
--- NOTE | 2024-12-29 23:19 | EDS_ITS ---
HPI History of Present Illness Chief Complaint: Dizziness Informant: patient Narrative Narrative: Patient is a 74-year-old male with history of anxiety, DVT, atrial fibrillation (on Eliquis), and remote history of vertigo presenting for left thigh pain and injuries after fall today. Patient states he got up to [employer] to go to the [employer] store. From the parking guards he walked about 10 to 15 minutes when he started to feel very dizzy. He states he felt like he was drunk and staggering. Had a sensation of vertigo. Denies any double vision or headache. Denies associate numbness or tingling. He was trying to get to the [employer] store and walked through it when he ultimately fell. He landed on his left side on the curb and also hit his left cheek and his chin. He denies any loss of consciousness. He was able to get up. He was encouraged to go to the ER up there but declined and ultimately drove himself home and then came to our emergency room. Patient denies any loss of consciousness. States he is having a lot of pain in his left thigh area and is worried he might of broke something. Currently does not feel dizzy or have vertigo. States before to this episode today he has been in his normal state of health has been feeling well. Patient does note that a week or 2 ago he had another mechanical fall when he hit furniture in his room in his back. He followed up with his primary care doctor for this and did have x-rays of his back. He has been having some pain in his left lower back since [facility] Medical History Retinal detachment Syncope Postsurgical dumping syndrome Guillaume syndrome COPD (chronic obstructive pulmonary disease) Chest pain BPH (benign prostatic hyperplasia) GI bleed Anxiety and depression LEXIE (obstructive sleep apnea) Pulmonary embolism DVT (deep venous thrombosis) History of cardioversion Afib Home Medications ?Medication ?Instructions ?Recorded ?Last Taken ?Type albuterol sulfate 90 mcg/actuation 90 mcg IH PRN PRN W heezing 10/15/19 Unknown History breath activated powder inhaler,sensor atorvastatin 20 mg tablet 20 mg PO DAILY 10/15/19 Unkn own History calcium 315 mg (as 1 ea PO DAILY 10/15/19 Unkno wn History citrate)-vitamin D3 6.25 mcg (250 unit) tablet cholecalciferol (vitamin D3) 25 1,000 unit PO DAILY Unknown History mcg (1,000 unit) tablet multivitamin 1 ea PO DAILY 10/15/19 Unkno wn History pyridoxine (vitamin B6) 100 mg 100 mg PO DAILY 0 Unknown History tablet pantoprazole 40 mg tablet,delayed 40 mg PO DAILY 07/21 Unknown History release bisoprolol fumarate 5 mg tablet 5 mg PO DAILY 09/13/24 Unknown History buspirone 15 mg tablet 15 mg PO BID 09/13/24 Unknow n History digoxin 250 mcg (0.25 mg) tablet 250 mcg PO DAILY 10/02 Unknown History docusate sodium 100 mg capsule 100 mg PO BID PRN const ipation 09/13/24 Unknown History fludrocortisone 0.1 mg tablet 0.1 mg PO DAILY 09/13/24 Unknown History lamotrigine 100 mg tablet 100 mg PO DAILY 09/13/24 Unk nown History omega-3 fatty acids 1,000 mg 1,000 mg PO QDAY 09/13/24 Unknown History capsule oxybutynin chloride 5 mg 5 mg PO DAILY 09/13/24 Unkno wn History tablet,extended release 24 hr quetiapine 50 mg tablet 50 mg PO QHS 09/13/24 Unknow n History sertraline 100 mg tablet 200 mg PO DAILY 09/13/24 Unk nown History apixaban 5 mg tablet 5 mg PO .COMPLEX #180 tabs 0 09/19/24 Unknown Rx Allergy/AdvReac Type Severity Reaction Status Date / Time diclofenac Allergy Rash Verified 12/29/24 19:36 rivaroxaban (From Xarelto) Allergy Rash Verified 12/29/24 19:36 Sulfa (Sulfonamide Allergy Rash Verified 12/29/24 19:36 Antibiotics) niacin AdvReac Mild Rash Verified 12/29/24 19:36 Family History Mother Cancer Father CAD (coronary artery disease) Heart disease Hypertension Myocardial infarction Surgical History History of esophagogastroduodenoscopy (EGD) History of lumbar discectomy History of cystoscopy History of back surgery History of colonoscopy History of cholecystectomy History of appendectomy History of maze procedure H/O total hip arthroplasty Gastric bypass status for obesity Social History household members: family and other details: Notes his sister lives with him. Smoking Status: Never smoker alcohol intake: never substance use type: does not use ROS ROS ED Constitutional Constitutional ED: Denies chills, fever(s) or sweats Eyes Eyes: Denies blurry vision or diplopia ENT ENT ED: Denies rhinorrhea or sore throat Cardiovascular Cardiovascular: Denies chest pain Respiratory/Chest Respiratory/Chest: Denies cough or dyspnea Gastrointestinal Gastrointestinal: Denies abdominal pain, nausea or vomiting Genitourinary Genitourinary ED: Denies dysuria Musculoskeletal Musculoskeletal: Reports arthralgias, myalgias and other Details: Left thigh pain ; Denies neck pain Integumentary Reports Abrasions Neurologic Neurologic: Reports weakness; Denies headache(s) or paresthesias Psychiatric Psychiatric: Reports anxiety Hematologic/Lymphatic Hematologic/Lymphatic: Reports easy bleeding, easy bruising and other Details: On Eliquis EXAM Physical Exam Const Vital Signs: 12/29/24 19:34 12/29/24 21:00 12/29/24 23:01 Temperature 98.3 F Temperature Source Oral Pulse Rate 84 74 64 Respiratory Rate 16 18 14 Blood Pressure 128/109 H 140/98 H 129/74 H Blood Pressure Mean 115 112 92 Pulse Ox 98 100 99 Oxygen Delivery Method Room Air Room Air Room Air Positive well nourished and well developed General Appearance ED: well developed and NAD HEENT Reports dry mucous membranes HEENT Narrative: Superficial abrasion to the left cheek, zygomatic process. No active bleeding. Second abrasion to the right chin/mandible with some surrounding ecchymosis. No trismus. No malocclusion. No septal hematoma. No signs of basilar skull fracture on physical exam. Mouth ED: Yes dry mucous membranes Mouth: dry mucous membranes Eyes PERRL and EOMs intact bilaterally Eyes Narrative: No nystagmus Neck supple Neck Narrative: Normal range of motion of the neck General: Negative for tenderness Chest Wall inspection of chest normal and palpation of chest normal Resp normal respiratory effort and clear to auscultation bilaterally Cardio regular rate, regular rhythm and no murmurs GI normal to inspection, nondistended, normoactive bowel sounds and non-tender Back/Spine no CVA tenderness Back/Spine Narrative: Left lower lumbar lateral tenderness to palpation. Thoracic Spine / Upper Back: Negative for thoracic spinal tenderness Lumbar Spine / Lower Back: Negative for lumbar spinal tenderness Extremity normal to inspection Extremity Narrative: Tenderness palpation of the left mid thigh. Mild tenderness palpation with range of motion of the left hip. No significant tenderness, deformity or effusions noted of the knees. There are overlying abrasions to the bilateral knees. Normal extensor mechanism bilaterally. No tenderness or deformity of the lower legs. No rotational deformity of the lower extremities. No bony tenderness or deformity of the upper extremities with normal range of motion. General Extremety ED: Negative for edema General Extremity: Negative for edema Psych Mood & Affect: anxious Skin Skin Narrative: Scattered abrasions of the bilateral knees and on the face as previously described. Patient also has 2 areas of ecchymosis on the back consistent with his fall last week. MDM MDM MDM Narrative Medical decision making narrative: Patient evaluated after an episode of vertigo with a subsequent fall. He is asymptomatic from a vertigo standpoint at this time however he is having a lot of pain associate with this fall. Differential includes is not limited to intracranial hemorrhage, skull fracture, cervical spine fracture, femur fracture, hip fracture, contusion of the extremities, debility, muscle spasms, symptomatic anemia, underlying infection, NALINI and electrolyte derangement. Patient initially given morphine and IV fluids in the ER. He has very dry mucosal membranes and concern for possible dehydration. He currently does not have any vertigo's findings and has a normal neurologic exam with no truncal ataxia normal finger-nose. Low suspicion for any type of central vertigo especially as he is currently asymptomatic from that standpoint. His NIH is 0 in the emergency room. CBC and BMP largely normal. Femur x-ray as well as pelvic x-ray of the left reviewed by myself as well as radiology did not show any acute bony abnormalities. CT of the brain and cervical spine do not show any acute process. Patient is reevaluated. Still having significant pain. Seems be having spasms in his left leg. Discussed attempting further pain control and tried ambulate/go home with pain medication however patient feels uncomfortable with this plan. He states his pain is too bad and he only has his frail older sister at home and she is not able to provide any physical assistance to him. Patient like to be admitted overnight for pain control and PT/OT evaluation in the morning. Given his age, injuries and anticoagulation he is at high risk of injury associated with fall and I think it would be prudent to bring him into the hospital. Case discussed with hospitalist, Dr. Olivo. Lab Data Attestation: I reviewed the patient's lab results. Labs: Laboratory Results - last 24 hr 12/29/24 20:07 WBC 9.6 RBC 3.66 L Hgb 11.4 L Hct 33.7 L MCV 92.1 MCH 31.1 MCHC 33.8 RDW Std Deviation 47.8 H RDW Coeff of Anmol 14.1 Plt Count 202 MPV 11.5 Immature Gran % (Auto) 0.400 Neut % (Auto) 74.9 H Lymph % (Auto) 19.1 [place] % (Auto) 3.9 Eos % (Auto) 1.3 Baso % (Auto) 0.4 Absolute Neuts (auto) 7.2 Absolute Lymphs (auto) 1.83 Nucleated RBC % 0 Sodium 138 Potassium 4.0 Chloride 103 Carbon Dioxide 21.6 Anion Gap 13 BUN 20 H Creatinine 1.13 Estim Creat Clear Calc 76.40 Est GFR (MDRD) Non-Af 69 BUN/Creatinine Ratio 17.5 Glucose 101 H Calcium 9.1 Magnesium 1.9 Radiography Diagnostic Testing: Clinical Impression(s) from Imaging Studies Brain CT 12/29/24 20:28 IMPRESSION: No evidence of acute intracranial injury. No evidence of acute intracranial hemorrhage or acute calvarial fracture. - Other findings and recommendations discussed above. Reading Location: [facility] Cervical Spine CT 12/29/24 20:28 IMPRESSION: No acute fracture of the cervical spine. - Other findings and recommendations discussed above. Reading Location: [facility] Femur X-Ray 12/29/24 21:00 IMPRESSION: No radiographic evidence of an acute osseous injury of the left femur. - Other findings discussed above in detail. Reading Location: [facility] Pelvis X-Ray 12/29/24 21:00 IMPRESSION: No radiographic evidence of an acute displaced fracture of the pelvis. - Other findings and limitations discussed above. 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
[2024-12-29 23:39] VITALS: BP 136/78; PULSE 71; RESP 16; TEMP 36.7; O2SAT 96
[2024-12-29 23:40] VITALS: BP 116/89; PULSE 79; RESP 16; TEMP 36.8; O2SAT 97
[2024-12-29 23:41] VITALS: BP 116/89; PULSE 68; RESP 16; TEMP 36.8; O2SAT 100
--- OUTSIDE RECORDS SUMMARY | 2024-12-29 23:54 | XMS RPT_ITS | CCD ---
Author Organization [facility] Care Team Providers Care Brokerage Clerk Name Role Phone Jr STUART, Preethi B Unavailable [phone] Florian Gonzalez MD Primary Care Provider [phone] FAUSTINA STUART, DR MOSS Primary Care Physician FAUSTINA STUART., DR. MOSS Primary Care MATT Mcdaniel DO Attending Unavailable Jr STUART, Preethi B Unavailable [phone]- [phone] Florian Gonzalez MD Primary Care Provider [phone] Unavailable, Family Physician Primary Care Un available Unavailable, Family Physician Consulting Un available Rubio Pantoja Attending Unavailable Preethi Portillo MD Unavailable [phone]- 72 Florian Gonzalez MD Primary Care Provider Florian Gonzalez Primary Care Provider Florian Gonzalez Primary Care Provider FLORIAN GONZALEZ Primary Care Unavailable BACKER, ANGLICAN Attending Unavailable BACKER, ANGLICAN Referring Unavailable OGNZALEZ, FLORIAN Primary Care Unavailable BACKER, ANGLICAN Attending Unavailable BACKER, ANGLICAN Referring Unavailable GONZALEZ, FLORIAN Primary Care Unavailable BACKER, ANGLICAN Referring Unavailable BACKER, ANGLICAN Attending Unavailable FAUSTINA, FLORIAN Primary Care Unavailable TOYA SMITH Attending Unavailable GONZALEZ, FLORIAN Primary Care Unavailable BACKER, ANGLICAN Referring Unavailable BACKER, ANGLICAN Attending Unavailable GONZALEZ, FLORIAN Primary Care Unavailable BACKER, ANGLICAN Referring Unavailable BACKER, ANGLICAN Attending Unavailable BACKER, ANGLICAN Referring Unavailable GONZALEZ, FLORIAN Primary Care Unavailable GONZALEZ, FLORIAN Primary Care Unavailable LUIS, TOYA Admitting Unavailable LUIS, TOYA Attending Unavailable GONZALEZ, FLORIAN Primary Care Unavailable BACKER, ANGLICAN Referring Unavailable LUIS, TOYA Attending Unavailable LUIS, TOYA Attending Unavailable CLEVEREJAQUELINE DÍAZ Referring Unavailable GONZALEZ, FLORIAN Primary Care Unavailable BACKER, ANGLICAN Referring Unavailable BACKER, ANGLICAN Attending Unavailable BACKER, ANGLICAN Referring Unavailable BACKER, ANGLICAN Attending Unavailable GONZALEZ, FLORIAN Primary Care Unavailable BACKER, ANGLICAN Attending Unavailable BACKER, ANGLICAN Referring Unavailable GONZALEZ, FLORIAN Primary Care Unavailable BACKER, ANGLICAN Attending Unavailable BACKER, ANGLICAN Referring Unavailable GONZALEZ, FLORIAN Primary Care Unavailable BACKER, ANGLICAN Attending Unavailable BACKER, ANGLICAN Referring Unavailable GONZALEZ, FLORIAN Primary Care Unavailable GONZALEZ, FLORIAN Primary Care Unavailable LUIS, TOYA Attending Unavailable GONZALEZ, FLORIAN Primary Care Unavailable BACKER, ANGLICAN Referring Unavailable BACKER, ANGLICAN Attending Unavailable BACKER, ANGLICAN Attending Unavailable GONZALEZ, FLORIAN Primary Care Unavailable GONZALEZ, FLORIAN Primary Care Unavailable LUIS, TOYA Attending Unavailable GONZALEZ, FLORIAN Primary Care Unavailable LUIS, TOYA Attending Unavailable TIMOTHY MARIEOLAS Referring Unavailable LUIS, TOYA Attending Unavailable PHIL LOBATO Attending Unavailable GONZALEZ, FLORIAN Primary Care Unavailable GONZALEZ, FLORIAN Primary Care Unavailable BACKER, ANGLICAN Referring Unavailable GONZALEZ, FLORIAN Attending Unavailable LUIS, TOYA Attending Unavailable GONZALEZ, FLORIAN Primary Care Unavailable Scarlett STUART, Rubio Samano Primary Care Provider FLORIAN GONZALEZ Primary Care Unavailable Faustina STUART, Florian Rubio Primary Care Provider BETTY SHANE Attending Unavailable BETTY SHANE Referring Unavailable PREETHI PORTILLO Primary Care Unavailable Unavailable Primary Care Provider Unavaillarry Etienne PRE 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 Florian Gonzalez MD Primary Care Provider Dr. Cortez Maldonado MD Emergency Provider Dr. Cortez Maldonado MD Attending Provider [phone] Dr. Florian Gonzalez MD Referring Provider Dr. Lyudmila Euceda MD Attending Provider Flash REDDY, Jenn Unavailable FAUSTINA, DAISY Referring Unavailable GONZALEZ, DAISY Primary Care Unavailable SHEA ETIENNE Attending Unavailable GONZALEZ, DAISY Primary Care Unavailable GONZALEZ, DAISY Primary Care Unavailable RAJGURU, QUINCY J Referring Unavailable RAJGURU, QUINCY Murray Attending Unavailable GONZALEZ, DAISY Primary Care Unavailable GONZALEZ, DAISY Referring Unavailable RAJGURU, QUINCY J Attending Unavailable GONZALEZ, DAISY Primary Care Unavailable RAJSABRINARU, QUINCY Murray Referring Unavailable SHEA ETIENNE Attending Unavailable GONZALEZ, DIASY Primary Care Unavailable GONZALEZ, DAISY Referring Unavailable GONZALEZ, DAISY Primary Care Unavailable JOSSELIN MALDONADO Attending Unavailable GONZALEZ, FLORIAN Rubio Primary Care Unavailable JOSSELIN MALDONADO Referring Unavailable RAJGURU, QUINCY Murray Attending Unavailable GONZALEZ, DAISY Primary Care Unavailable RAJGURU, QUINCY J Referring Unavailable GONZALEZ, DAISY Primary Care Unavailable DOMO GRANDA Attending Unavailable ISA ALONSO Attending Unavailable GONZALEZ, DAISY Primary Care Unavailable GONZALEZ, DAISY Referring Unavailable GONZALEZ, DAISY Referring Unavailable GONZALEZ, DAISY Primary Care Unavailable GONZALEZ, DAISY Primary Care Unavailable DEON GLEZ Referring Unavailable SHEA ETIENNE Attending Unavailable GONZALEZ, DAISY Primary Care Unavailable GONZALEZ, DAISY Primary Care Unavailable RAJGURU, QUINCY J Attending Unavailable RAJGURU, QUINCY J Referring Unavailable GONZALEZ, DAISY Primary Care Unavailable ANTONIO STAHL Attending Unavailable GONZALEZ, DAISY Referring Unavailable GONZALEZ, DAISY Primary Care Unavailable ISA ALONSO Attending Unavailable GONZALEZ, DAISY Primary Care Unavailable GONZALEZ, DAISY Primary Care Unavailable ILA PRESLEY Attending Unavailable GONZALEZ, DAISY Primary Care Unavailable ILA PRESLEY Referring Unavailable GONZALEZ, FLORIAN Rubio Primary Care Unavailable DOMO GRANDA Referring Unavailable GONZALEZ, DAISY Primary Care Unavailable RAJGURU, QUINCY J Attending Unavailable QUINCY ALONZO Referring Unavailable FLORIAN GONZALEZ Primary Care Unavailable FLORIAN GONZALEZ Attending Unavailable FLORIAN GONZALEZ Primary Care Unavailable SHEA ETIENNE Referring Unavailable FLORIAN GONZALEZ Primary Care Unavailable Florian Gonzalez Referring Unavailable Lyudmila Euceda Attending Unavailable Faustina, Florian Primary Care Unavailable Cortez Maldonado Attending Unavailable Florian Gonzalez Primary Care Unavailable Damaris Hensley Attending Unavailable Florian Gonzalez Primary Care Unavailable Allergies Allergy Classification Reported Allergen(s) Allergy Type Date of Onset Reaction(s) Facility Adhesive Tape (1 source) Adhesive Tape Substance Allergy 0 [facility] Work Phone: Niacin (1 source) Niacin Drug Allergy 4 Other: See Comments [facility] NSAIDs (1 source) Diclofenac Drug Allergy 6 [facility] rivaroxaban (1 source) rivaroxaban Drug Allergy 3 [facility] Sulfonamides (antibiotic) (1 source) Sulfonamides (Antibiotic) Drug Allergy 8 Intolerance, [facility] (20 sources) rivaroxaban; Translations: [RIVAROXABAN] Drug Allergy 3 [facility] (20 sources) Sulfonamides (Antibiotic); Translations: [SULFA (SULFONAMIDE ANTIBIOTICS)] Allergy to substance 8 Intolerance, [facility] (20 sources) Adhesive Tape; Translations: [ADHESIVE TAPE (ROSINS)] Allergy to substance 0 [facility] Work Phone: (20 sources) Diclofenac; Translations: [DICLOFENAC SODIUM] Drug Allergy 6 [facility] (20 sources) Wool; Translations: [WOOL] Propensity to adverse reactions 0 Itching [facility] Work Phone: (20 sources) Non-steroidal anti-inflammator y agent Propensity to adverse reactions 3 [facility] (20 sources) rivaroxaban Drug Allergy 3 Rash, Anxiety, Hives, Itching [facility] (20 sources) Sulfonamides (Antibiotic) Drug Allergy 8 Hives, Other [facility] (20 sources) Other Propensity to adverse reactions 3 [facility] (20 sources) Niacin; Translations: [NIACIN] Drug Allergy 4 Other: See Comments [facility] (4 sources) Niacin Drug Allergy 3 Anxiety, Dizziness, Headache, Hives, Itching, Other, Rash [facility] (12 sources) Wound Dressing Adhesive Propensity to adverse reactions 0 Itching, Other, Swelling, Rash [facility] (9 sources) Diclofenac Drug Allergy 6 Rash [facility] (1 source) Diclofenac Drug Allergy 5 [facility] Rep[facility] (1 source) Niacin Drug Allergy 5 [facility] Rep[facility] (1 source) rivaroxaban Drug Allergy 5 [facility] Repository Medications Current Medications Medication Drug Class(es) [...] 15 tablet 10/09/2024 10/14/2024 Active Start: 07-27-2022 [place] 5-325 MG tablet 07/27/2022 Active Start: 07-18-2022 End: 07-25-2022 take 1 tablet by mouth every twelve hours as needed for pain HYDROcodone-acetaminophen ([place]) 5-325 MG tablet Indications: Pain Take 1 [...] every 6 hours as needed for pain. [id number] 200 actuat albuterol 0.09 mg/actuat metered dose [...] Take 1 tablet by nilsa th twice daily with meals. With each meal. [...] above: Take 1 tablet by nilsa th daily with dinner. digoxin 0.25 mg oral [...] on above: Take 1 capsule by mo [facility] twice daily as needed for Constipation. doxycycline [...] (20 sources) Muscle Relaxant Start: 3 End: 4 take 1 tablet by mouth every eight hours as needed for muscle spasms methocarbamol (Robaxin) 500 MG tablet TAKE 1 TABLET BY MOUTH EVERY EIGHT HOURS NEEDED FOR MUSCLE SPASMS 10/28/2022 Active Comment on above: TAKE 1 TABLET [address] [facility] EVERY EIGHT HOURS NEEDED FOR MUSCLE [...] 15, 2019 12:00am omega-3 acid ethyl esters (nursing home) 1000 mg oral capsule (20 sources) omega-3 acid eth yl esters (Lovaza) 1 g capsule Take 1 g by mouth 2 times daily. 0 Active [place]-3 Fatty Acids 1,000 mg capsule (1 source) Start: 09-13-2024 take 1 capsule by mouth once daily [place]-3 Fatty Acids 1,000 mg capsule Active 1000 mg PO daily September 13, 2024 12:00am Qgael3-DniS0-D37-E-FA-F carla Oil [phone] jt-kf-tat-mcg cap (20 sources) Start: 08-25-2020 take 1 capsule by mouth once daily Jzhay9-DsjX0-T67-E-FA-F carla Oil [phone] sr-nb-cmz-mcg cap Take 600 mg by mouth once daily. 08/25/2020 Active Start: 08-25-2020 take 1 capsule by mo [facility] once daily Taepf0-DqlG1-B22-E-FA-Fish Oil [phone] ia-iq-vnp-mcg cap Take 600 mg by mouth once [...] Proton Pump Inhibitor Start: 02-07-20 End: 05-13-19 25 take 1 tablet by mouth once daily [...] on above: Take 2 tablets by mo [facility] once daily. Take 1 tablet by nilsa th daily before breakfast. Take on empty stomach, 1/2 hr before meal. perflutren lipid microspheres 1.3 mL in NaCl (PF) 0.9% 10 mL injection (DEFINITY) (11 sources) Start: 1 End: 2 perflutren lipid microspheres 1.3 mL in NaCl (PF) 0.9% 10 mL injection (DEFINITY) predniSONE 20 mg oral tablet (3 sources) Start: 5 End: 02-22-202 5 take 1 tablet by mouth once [...] Start: 07-22-2014 take 2 tablets by mo [facility] twice daily pyridoxine (VITAMIN B-6) 100 mg tablet Take 2 tablets by mouth twice daily. 180 tablet 6 07/22/2014 Active Comment on above: Take 2 tablets by mo [facility] twice daily. Completed/Discontinued Medications Medication Drug Class(es) [...] Comment on above: TAKE 1 TABLET BY [facility] EVERY FOUR TO SIX HOURS NEEDED FOR [...] Comment on above: Take 1 tablet by [facility] once daily. betamethasone 3 mg/ml / betamethasone [...] above: Take 1 tablet by nilsa twice daily. Take 1 tablet by nilsa th two times a day. 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; Translations: [shelter (current) use of anticoagulants] Onset: 10-09-2024 Episodic [...] right shoulder] Onset: 05-27-2024 05-27-2024 Episodic Other ear and sense organ disorders [...] sources) Long-term current use of anticoagulant; Translations: [shelter (current) use of anticoagulants] Onset: 1 Resolved: 2 04-05-2021 Episodic Other aftercare (20 sources) Patient encounter status; Translations: [Other senior care (current) drug therapy] Onset: 0 Resolved: 2 Episodic Other aftercare (20 sources) Admission statuses; Translations: [Encounter for other specified aftercare] Onset: 1 Resolved: 2 05-05-2021 Episodic Other aftercare (20 sources) H/O: anticoagulant therapy; Translations: [shelter (current) use of anticoagulants] Onset: 5 Resolved: 2 05-05-2021 Episodic Other aftercare (1 source) 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, [address] Calcium [Mass/Vol] 9.1 mg/dL Normal 7.6-11.0 [facility] Comment on above: Performed By: #### L 100.0100, L500.2500 #### [facility] [address] [place], [address] Chloride [Moles/Vol] 103 mmol/L Normal 98-108 [facility] Comment on above: Performed By: #### L 100.0100, L500.2500 #### [facility] [address] [place], [address] CO2 [Moles/Vol] 21.6 mmol/L Normal 21.0-32.0 [facility] Comment on above: Performed By: #### L 100.0100, L500.2500 #### [facility] [address] [place], [address] Creatinine [Mass/Vol] 1.13 mg/dL Normal 0.70-1.20 [facility] Comment on above: Performed By: #### L 100.0100, L500.2500 #### [facility] [address] [place], [address] ECRCL 76.40 ml/min Normal 50-250 [facility] Comment on above: Performed By: #### L 100.0100, L500.2500 #### [facility] [address] [place], [address] GAP 13 Normal 5-15 [facility] Comment on above: Performed By: #### L 100.0100, L500.2500 #### [facility] [address] [place], [address] GFR/1.73 sq M.predicted among non-blacks MDRD (S/P/Bld) [Vol rate/Area] 69 mL/min/{1.73_m2} Normal >60 [facility] Comment on above: Result Comment: mL/m in/1.73m2 CKD-EPI Creatinine Equation (2020) Performed By: #### L 100.0100, L500.2500 #### [facility] [address] [place], [address] Glucose [Mass/Vol] 101 mg/dL High 70-99 [facility] Comment on above: Performed By: #### L 100.0100, L500.2500 #### [facility] [address] [place], [address] Potassium [Moles/Vol] 4.0 mmol/L Normal 3.3-5.1 [facility] Comment on above: Result Comment: Hemo lysis present, Results??could be affected. ?? Performed By: #### L 100.0100, L500.2500 #### [facility] [address] [place], [address] Sodium [Moles/Vol] 138 mmol/L Normal 133-145 [facility] Comment on above: Performed By: #### L 100.0100, L500.2500 #### [facility] [address] [place], [address] Urea nitrogen [Mass/Vol] 20 mg/dL High 4-19 [facility] Comment on above: Performed By: #### L 100.0100, L500.2500 #### [facility] [address] [place], [address] Brain/Head without Contrasto n 12-29-2024 Brain/Head without Contrast [facility] Imaging Services [address] [place] [address] Brain/Head without Contrast MR#: [id number] Acct: [id number] Name: ORION DUMONT Rep #: [id number] : 1950 M 74 From: Judd Stevens MD PCP: Dr. Florian Gonzalez MD Status: REG ER Study: Brain/Head without Contrast Date of Exam: 12/10 05/04 Exam# [id number] Ordering Dr: Damaris Hensley DO PROCEDURE: BRAIN/HEAD WITHOUT CONTRAST 12/29/2024 REASON FOR EXAM: HEAD TRAUMA TECHNIQUE: Procedure Code: CTBR Modality: CT Procedure: BRAIN/HEAD WITHOUT CONTRAST Coronal and Sagittal reconstruction series were provided. One or more dose reduction techniques were used (e.g., Automated exposure control, adjustment of the mA and/or kV according to patient size, use of iterative reconstruction technique. RADIATION DOSE SUMMARY: CTDlvol: Please see CT mGy DLP: Please see CT mGycm COMPARISON: June 30, 2021 FINDINGS: Note: Images through the base of the brain and posterior fossa including the brainstem are slightly degraded by beam hardening artifact from the adjacent calvarium. Brain: There is no evidence of acute intracranial hemorrhage. Note is made that some parenchymal contusions may not be visible immediately. Consider follow-up imaging as clinically indicated. There is moderately severe global parenchymal volume loss resulting in prominent extra-axial CSF attenuation fluid. Appearance of the basal cisterns is unremarkable. There is no Chiari malformation. There is intracranial calcific atherosclerosis. Mild microvascular ischemic changes again noted. No parenchymal changes are seen suggestive of cytotoxic edema to indicate an acute territorial vascular infarct. Note is made that CT changes may lag clinical findings an acute stroke. If indicated, consider follow-up imaging or diffusion-weighted MRI. There is no midline shift or herniation. No evidence of pneumocephalus. Incidental intracranial calcifications noted. Ventricles: The ventricles do not appear obstructed. Pituitary: The pituitary fossa does not appear enlarged. The pituitary stalk does not appear deviated. Soft tissues: No pericranial scalp hematoma. Orbits: Ocular postoperative changes noted bilaterally. Osseous: No acute calvarial fracture. No suspicious bone lesion. Visualized paranasal sinuses: No fluid in the paranasal sinuses. Mastoids: No fluid or opacification of mastoid air cells. Middle ear cavities: The visualized middle ear cavities are not opacified. CT/Brain/Head without Contrast IMPRESSION: No evidence of acute intracranial injury. No evidence of acute intracranial hemorrhage or acute calvarial fracture. - Other findings and recommendations discussed above. Reading Location: [id number] CC: Dr. Damaris Hensley DO; Dr. Florian Gonzalez MD Binding Stitcher: Signed Normal [facility] CBC W/Diff, Automatedon 12-10 Absolute Lymph 1.83 X10 3/uL Normal 0.83-4.51 [facility] Comment on above: Performed By: #### L 100.0100, L500.2500 #### [facility] [address] [place], [address] Absolute Neut 7.2 X10 3/uL Normal 2.0-7.7 [facility] Comment on above: Performed By: #### L 100.0100, L500.2500 #### [facility] [address] [place], [address] Basophils/100 WBC (Bld) 0.4 % Normal 0-1 [facility] Comment on above: Performed By: #### L 100.0100, L500.2500 #### [facility] [address] [place], [address] Eosinophils/100 WBC (Bld) 1.3 % Normal 0-5 [facility] Comment on above: Performed By: #### L 100.0100, L500.2500 #### [facility] [address] [place], [address] Erythrocyte distribution width (RBC) [Ratio] 14.1 % Normal 11.6-14.6 [facility] Comment on above: Performed By: #### L 100.0100, L500.2500 #### [facility] [address] [place], [address] Hematocrit (Bld) [Volume fraction] 33.7 % Low 40-54 [facility] Comment on above: Performed By: #### L 100.0100, L500.2500 #### [facility] [address] [place], [address] Hemoglobin (Bld) [Mass/Vol] 11.4 g/dL Low 13.0-16.5 [facility] Comment on above: Performed By: #### L 100.0100, L500.2500 #### [facility] [address] [place], [address] IG% 0.400 Normal 0.0-0.9 [facility] Comment on above: Result Comment: IG% - Immature Granulocytes (promyelocytes, myelocytes and metamyelocytes) > 1% indicates that a LEFT SHIFT is Present. Performed By: #### L 100.0100, L500.2500 #### [facility] [address] [place], [address] Lymphocytes/100 WBC (Bld) 19.1 % Normal 19-41 [facility] Comment on above: Performed By: #### L 100.0100, L500.2500 #### [facility] [address] [place], [address] MCH (RBC) [Entitic mass] 31.1 pg Normal 27.0-32.0 [facility] Comment on above: Performed By: #### L 100.0100, L500.2500 #### [facility] [address] [place], [address] MCHC (RBC) [Mass/Vol] 33.8 g/dL Normal 32-36 [facility] Comment on above: Performed By: #### L 100.0100, L500.2500 #### [facility] [address] [place], [address] MCV (RBC) [Entitic vol] 92.1 fL Normal 80-94 [facility] Comment on above: Performed By: #### L 100.0100, L500.2500 #### [facility] [address] [place], [address] Monocytes/100 WBC (Bld) 3.9 % Normal 0-10 [facility] Comment on above: Performed By: #### L 100.0100, L500.2500 #### [facility] [address] [place], [address] Neutrophils/100 WBC (Bld) 74.9 % High 47-70 [facility] Comment on above: Performed By: #### L 100.0100, L500.2500 #### [facility] [address] [place], [address] Nucleated RBC (Bld) [#/Vol] 0 10*3/uL Normal 0-5 [facility] Comment on above: Performed By: #### L 100.0100, L500.2500 #### [facility] [address] [place], [address] Platelet mean volume (Bld) [Entitic vol] 11.5 fL Normal 6.2-12.0 [facility] Comment on above: Performed By: #### L 100.0100, L500.2500 #### [facility] [address] [place], [address] Platelets (Bld) [#/Vol] 202 10*3/uL Normal 150-450 [facility] Comment on above: Performed By: #### L 100.0100, L500.2500 #### [facility] [address] [place], [address] RBC (Bld) [#/Vol] 3.66 10*6/uL Low 4.6-6.2 [facility] Comment on above: Performed By: #### L 100.0100, L500.2500 #### [facility] Laboratory [address] [place], [address] RDW SD 47.8 fl High 35.1-43.9 [facility] Comment on above: Performed By: #### L 100.0100, L500.2500 #### [facility] Laboratory [address] [place], [address] WBC (Bld) [#/Vol] 9.6 10*3/uL Normal 4.4-11.0 [facility] Comment on above: Performed By: #### L 100.0100, L500.2500 #### [facility] Laboratory [address] [place], [address] Femur Min 2 Viewson 12-30-19 Femur Min 2 Views [facility] Imaging Services [address] [place] [address] Femur Min 2 Views MR#: [id number] Acct: [id number] Name: ORION DUMONT Rep #: [id number] : 1950 M 74 From: Judd Stevens MD PCP: Dr. Florian Gonzalez MD Status: REG ER Study: Femur Min 2 Views Date of Exam: 12/29/24 Exam# [id number] Ordering Dr: Damaris Hensley DO PROCEDURE: FEMUR MIN 2 VIEWS 12/29/2024 REASON FOR EXAM: INJURY/PAIN TECHNIQUE: Procedure Code: RADFEM Modality: DX Procedure: FEMUR MIN 2 VIEWS Laterality: Left COMPARISON: None FINDINGS: Osseous: There is a left total hip replacement, with non cemented components, which appears in anatomic alignment. The left hip joint is not subluxed or dislocated. There may be mild superolateral acetabular liner wear. No acute fracture is seen at the left hip. If there are symptoms related to the left knee, consider obtaining dedicated joint views. Osteoarthritic changes at the knee are noted. Soft tissue: Soft tissue injury can not be assessed by this technique. Vascular: Vascular calcification is seen throughout the left leg. RAD/Femur Min 2 Views IMPRESSION: No radiographic evidence of an acute osseous injury of the left femur. - Other findings discussed above in detail. Reading Location: [id number] CC: Dr. Damaris Hensley DO; Dr. Florian Gonzalez MD Binding Stitcher: Signed Normal [facility] Pelvis 1 or 2 Viewson 2024 Pelvis 1 or 2 Views [facility] Imaging Services [address] [place], [place] [id number] Pelvis 1 or 2 Views MR#: [id number] Acct: [id number] Name: ORION DUMONT Rep #: [id number] : 1950 M 74 From: Judd Stevens MD PCP: Dr. Florian Gonzalez MD Status: REG ER Study: Pelvis 1 or 2 Views Date of Exam: 12/29/24 Exam# [id number] Ordering Dr: Damaris Hensley DO PROCEDURE: PELVIS 1 OR 2 VIEWS 12/29/2024 REASON FOR EXAM: INJURY/PAIN TECHNIQUE: Procedure Code: RADPEL Modality: DX Procedure: PELVIS 1 OR 2 VIEWS COMPARISON: None FINDINGS: Osseous: There are bilateral hip replacements which extend below the level of this exam. The femoral heads are centered to the acetabula. If there are symptoms related to either hip joint, dedicated joint views are advised. Pelvic congruency is maintained. Evaluation of the sacrum is compromised by overlying fecal material and bowel gas. Degenerative change of the visualized lower lumbar spine noted. No radiographic evidence of acute displaced fracture of the pelvis is seen on this single frontal view. Soft tissues: Soft tissue injury is not well evaluated by this technique. RAD/Pelvis 1 or 2 Views IMPRESSION: No radiographic evidence of an acute displaced fracture of the pelvis. - Other findings and limitations discussed above. Reading Location: [facility] CC: Dr. Damaris Hensley DO; Dr. Florian Gonzalez MD Binding Stitcher: Signed Normal [facility] Spine Cervical without Contr ason 12-29-2024 Spine Cervical without Contras [facility] Imaging Services [address] [place] [address] Spine Cervical without Contras MR#: [id number] Acct: [id number] Name: ORION DUMONT Rep #: [id number] : 1950 M 74 From: Judd Stevens MD PCP: Dr. Florian Gonzalez MD Status: REG ER Study: Spine Cervical without Contras Date of Exam: 0 12/29/24 Exam# [id number] Ordering Dr: Damaris Hensley DO PROCEDURE: SPINE CERVICAL WITHOUT CONTRAS 12/29/2024 REASON FOR EXAM: TRAUMA TECHNIQUE: Procedure Code: CTSPC Modality: CT Procedure: SPINE CERVICAL WITHOUT CONTRAS Coronal and Sagittal reconstruction series were provided. One or more dose reduction techniques were used (e.g., Automated exposure control, adjustment of the mA and/or kV according to patient size, use of iterative reconstruction technique. RADIATION DOSE SUMMARY: CTDlvol: Please see CT mGy DLP: Please see CT mGycm COMPARISON: CT cervical spine January 29, 2022. Prior report is not available. FINDINGS: Osseous: There is reversal of upper cervical lordosis, similar to the prior exam. Cervical vertebral body heights are maintained. Minimal cervical malalignments are noted likely due to reversed cervical lordosis and appears similar to the prior exam. No acute appearing spondylolisthesis. Cervical facet joints are not subluxed or dislocated. The atlantodental interval is maintained. Atlanto occipital and atlantoaxial articulations are maintained. There is no acute fracture of the cervical spine. The occipital condyles are intact. Well corticated calcification seen posterior to the spinous process of C7, possibly old injury or dystrophic soft tissue calcification, unchanged. Severe degenerative change of the cervical spine is noted with disc space loss, anterior osteophytes, posterior bony ridging, uncovertebral bony hypertrophy and facet arthropathy. If there are neurologic symptoms or radiculopathy, further evaluation by MRI is advised. Soft tissues: No focal prevertebral soft tissue swelling. No posterior paraspinal soft tissue hematoma. No cervical soft tissue emphysema. Vascular: Vascular and carotid calcifications noted. Vascular patency can not be assessed on this study. Lung apices: No acute consolidation is seen at the visualized lung apices. CT/Spine Cervical without Contras IMPRESSION: No acute fracture of the cervical spine. - Other findings and recommendations discussed above. Reading Location: [facility] CC: Dr. Damaris Hensley DO; Dr. Florian Gonzalez MD Binding Stitcher: Signed Normal [facility] CNOVon 12-25-2024 CNOV Office Visit (FAMPWS ) ORION DUMONT ([id number]) 1950 M Date Time Provider Department 12/25/24 10:20 AM [facility] During your visit today, we recorded the following information about you: Pulse Respiration Blood pressure 81/minute 16/minute 120/82 Ila Presley APRN.CNP 12/25/2024 10:37 AM Addendum Get the xrays done. Ice to the area. Tylenol as needed. You can still use the medication that was previously prescribed. 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 Treated with [...] AC, Colchicine has DVT (deep venous thrombosis) ([facility]) 01/12/2010 S/P IVC filter, occurred post-op, on anticoagulation (for a fib) Eating disorder, unspecified 07/01/2009 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 Essential hypertension, benign Fatty liver 11/03/2009 by us Gall stones, common bile duct 12/07/2013 Generalized anxiety disorder 07/01/2009 GI bleed 06/29/2012 Hip joint replacement by other means 09/21/2012 Hyperlipidemia 08/25/2020 Impaired fasting glucose 05/05/2021 Impotence of organic origin Iron deficiency anemia 08/02/2012 shelter current use of anticoagulant 02/09/2015 Major depressive [...] monitor Postsurg (more content not included)... 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 With each meal. Pgogx8-PvtC9-P30-E-FA -Fish Oil [id number] ge-js-ask-mcg cap Take 600 mg by mouth once daily. pyridoxine (VITAMIN B-6) 100 mg tablet Take 2 tablets by mouth twice daily. docusate sodium 100 mg capsule Take 1 capsule by mouth twice daily as needed for Constipation. No current facility-administered medications for this visit. Psychiatric Medication Issues: No change from previous appointment DIAGNOSIS: [place] I: LANA r/o PTSD Depression Adjustment, mix [place] II: deferred [place] III: see med record [place] IV: life situation and early history [place] V: 48-53 TREATMENT PROGRESS/ASSESSMENT: Fluctuating progress. TREATMENT [...] and de (more content not included)... [facility] ORION DUMONT ([id number]) 1950 M Date Time Provider Department 11/19/24 9:00 AM QUINCY ALONZO PSWSTR During your visit today, we recorded the following information about you: Pulse Respiration Blood pressure Weight 80/minute 16/minute 132/86 106.1 kg Quincy Alonzo, PRE OWNED SALES MANAGER.INSIDE FINISHER 11/19/2024 9:47 AM Signed FOLLOW UP - PSYCHIATRIC PROGRESS NOTE Visit Type:In person Recording using Virtual Call Center software for draft documentation of the visit was discussed with the patient/authorized service support representative; all questions welcomed and answered. Patient/authorized service support representative agreed to proceed CC: Outpatient follow-up [...] and might need to go to a fpc or assisted living. Another sister had a [...] occurred post-o (more content not included)... Normal [facility] CNOVon 11-11-2024 CNOV Office Visit (INTMWS ) ORION DUMONT Bianca ([id number]) 1950 M Date Time Provider Department 11/11/24 8:00 AM SHEA ETIENNE INTMWS During your visit today, we recorded the following information about you: Pulse Respiration Blood pressure Weight 74/minute 14/minute 102/68 104.3 kg Shea Etienne, PRE OWNED SALES MANAGER.INSIDE FINISHER 11/11/2024 8:28 AM Signed CC: No chief complaint on file. HPI Recording using Virtual Call Center software for draft documentation of the visit was discussed with the patient/authorized service support representative; all questions welcomed and answered. 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 Normal [facility] CNOVon 10-25-2024 CNOV Office Visit (PSYLWM ) ORION DUMONT ([id number]) 1950 M Date Time Provider Department 10/25/24 9:00 AM ISA ALONSO PSSHYANNWJim During your visit today, we recorded the following information about you: Isa Alonso, PhD 10/25/2024 12:19 PM Signed [facility] Behavioral Health Department Progress Note Orion Costa Tim 10/25/2024 [id number] PROVIDER: Isa Alonso, PhD CPT Code: Time: [...] twice daily with meals. With each meal. Mttlt3-BcrZ1-X78-E-FA -Fish Oil [id number] sn-pz-moy-mcg cap Take 600 mg by mouth once daily. pyridoxine (VITAMIN B-6) 100 mg tablet Take 2 tablets by mouth twice daily. docusate sodium 100 mg capsule Take 1 capsule by mouth twice daily as needed for Constipation. No current facility-administered medications for this visit. Psychiatric Medication Issues: see med record DIAGNOSIS: [place] I: LANA r/o PTSD Depression Adjustment, mix [place] II: deferred [place] III: see med record [place] IV: life situation and early history [place] V: 48-53 TREATMENT PROGRESS/ASSESSMENT: Fluctuating progress. TREATMENT PLAN/GOALS: Continue in therapy focusing on self-care, interpersonal relationships, stress management, affect management, anxiety management, trauma recovery, and self-esteem. Next appointment: as scheduled Isa Alonso, PhD Referring Provider: FLORIAN GONZALEZ [[id number]] Allergies As of Date: 10/25/2024 Noted Allergy Reaction RIVAROXABAN 03/02/2013 2 - Rash SULFA (SULFONAMIDE ANTIBIOTICS) 03/18/2008 5 - Intolerance 4 - Hives Comments: Pt says that he has had silvadene cream in the past after cardioversions without side effects ADHESIVE TAPE (ROSINS) 10/08/2009 2 - Rash NIACIN (more content not included)... Normal [facility] CNOVon 10-22-2024 CNOV Office Visit (UROLWS ) ORION DUMONT ([id number]) 1950 M Date Time Provider Department 10/22/24 2:15 PM ANTONIO STAHL UROLTERRI During your visit today, we recorded the [...] Antonio Mistry PA-C 11/11/2024 5:17 PM Signed [facility] EST PATIENT CLINIC NOTE (M) Some elements copied from his previous note, which have been updated where appropriate, and all reflect current medical decision making from date of this visit. Note was generated by [employer] and edited as appropriate SERVICE DATE: [...] twice daily with meals. With each meal. Gsfft6-AzrK5-U37-E-FA -Fish Oil [id number] zj-po-spl-mcg cap Take 600 mg by mouth once daily. pyridoxine (VITAMIN B-6) 100 mg tablet Take 2 tablets by mouth twice daily. docusate sodium 100 mg capsule Take 1 capsule by mouth twice daily as needed for Constipation. clotrimazole-betameth asone (LOTRISONE) cream Apply to affected area two times a day. for 1 month PAST MEDICAL HISTORY (more content not included)... Normal [facility] UA DIP, URINE (POC)on 2024 BILIRUBIN UA (POCT) Negative Negative [facility] CLARITY UA (POCT) Clear [facility] COLOR UA (POCT) Yellow [facility] GLUCOSE UA (POCT) Negative Negative mg/dL [facility] Hemoglobin Ql (U) [facility] KETONE UA (POCT) Negative Negative mg/dL [facility] LEUKOCYTES UA (POCT) Negative Negative [facility] NITRITE UA (POCT) Negative [facility] PH UA (POCT) 6 4.5 - 8.0 [facility] Protein Ql (U) Negative Negative mg/dL [facility] SPECIFIC GRAVITY UA (POCT) 1.015 1.005 - 1.030 [facility] UROBILINOGEN UA (POCT) 0.2 Elizabeth l E.U./dL [facility] Location:[facility], [address], [place], [address] [facility] POINT OF CARE [facility] CNOVon 10-09-2024 CNOV Office Visit (INTMWS ) ORION DUMONT ([id number]) 1950 M Date Time Provider Department 10/09/24 5:40 PM SHEA ETIENNE INTMWS During your visit today, we recorded the following information about you: Pulse Respiration Blood pressure Weight 78/minute 12/minute 110/62 103.9 kg Shea Etienne, PRE OWNED SALES MANAGER.INSIDE FINISHER 10/09/2024 6:14 PM Signed CC: Patient presents with: Fall: X 5 days : lower back pain, bilateral shoulders HPI Recording using ambient AI software for draft documentation of the visit was discussed with the patient/authorized service support representative; all questions welcomed and answered. Patient/authorized service support representative agreed to proceed Greg Dumont is a 73-year-old male, with a history of arthritis and on anticoagulation therapy, presenting for evaluation of head, back, and shoulder pain following a fall. Greg reports a fall that occurred on Monday night at approximately 1630 while assisting his sister, who was recently discharged from a fpc. During the incident, his sister's knees began [...] depressed mood hosp 95' Arthritis Atrial fibrillation ([facility]) 11/03/2009 s/p ablation, on coumadin, OFF now. Atrial fibrillation with RVR ([facility]) 02/01/2013 - currently HR controlled on diltiazem [...] of organic origin Iron deficiency anemia 08/02/2012 shelter current use of anticoagulant 02/09/2015 Major depressive disorder, recurrent episode, moderate (HCC) 07/01/2009 Morbid obesity (HCC) 04/21/2009 stated BMI 51.1 Ht: 75 Wt: 410 lbs MSSA (methicillin susceptible Staphylococcus aureus) infection 07/03/2012 Hx: MSSA infection of serosal fluids collection in L chest wall. S/P I/ (more content not included)... Normal [facility] CNPNon 10-09-2024 WILL Telephone (INTMWS) ORION DUMONT ([id number]) 1950 M Date Time Provider Department 10/09/24 SHEA ETIENNE INTMWS During your visit today, we recorded the following information about you: Shea Etienne APRN.RAJAN 10/09/2024 3:38 PM Signed Patient scheduled with [...] Date Reviewed: 10/09/2024 Reviewed by: Shea Etienne, BRAD.INSIDE FINISHER - Fully Assessed Prescriptions as of 10/10/2024 [...] daily with meals. With each meal. 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 Normal [facility] No Panel Informationon 10-09 Radiology Study observation (narrative) [facility] XR LUMBAR 3V AP/LAT/L5-S1on 10-09-2024 XR LUMBAR [...] IMPRESSION: 1. No acute fracture or subluxation. Binding Stitcher: EVELYNE Transcribe Date/Time: Oct 09 2024 7:21P Dictated by : MARYJO NICE MD This examination was interpreted and the report reviewed and electronically signed by: MARYJO NICE MD on Oct 09 2024 7:24PM EST [id number] Normal [facility] XR Lumbar spine 3 Viewson IMPRESSION: 1. No acute fracture or subluxation. Binding Stitcher: PSCB Transcribe Date/Time: Oct 09 2024 7:21P [...] changes have progressed. DIVISION OF RADIOLOGY Provider, [facility] - 10/09/2024 * * *Final Report* * [...] IMPRESSION: 1. No acute fracture or subluxation. Binding Stitcher: [facility] Transcribe Date/Time: Oct 09 2024 7:21P Dictated by : MARYJO NICE MD This examination was interpreted and the report reviewed and electronically signed by: MARYJO NICE MD on Oct 09 2024 7:24PM EST [facility] XR Lumbar spine 3 ViewsOrder ed By: [facility]cf Provider on 10-09-2024 [facility] XR SHLDR >/=3V AP/KEISHA AP/OTH R LTon [...] fracture or dislocation of the left shoulder. Binding Stitcher: [facility] Transcribe Date/Time: Oct 09 2024 7:19P Dictated by : MARYJO NICE MD This examination was interpreted and the report reviewed and electronically signed by: MARYJO NICE MD on Oct 09 2024 7:21PM EST [id number] Normal [facility] XR SHLDR >/=3V AP/KEISHA AP/OTH R RTon [...] fracture or dislocation of the right shoulder. Binding Stitcher: [employer] Transcribe Date/Time: Oct 09 2024 7:18P Dictated by : MARYJO NICE MD This examination was interpreted and the report reviewed and electronically signed by: MARYJO NICE MD on Oct 09 2024 7:19PM EST [id number] Normal [facility] XR Shoulder - left 3 Viewson 10-09-2024 IMPRESSION: No acute fracture or dislocation of the left shoulder. Binding Stitcher: [facility] Transcribe Date/Time: Oct 09 2024 7:19P Dictated by : MARYJO NICE MD This examination was interpreted and the report reviewed and electronically signed by: MARYJO NICE MD on Oct 09 2024 7:21PM [facility] DIVISION OF RADIOLOGY * * *Final [...] joint degenerative changes. DIVISION OF RADIOLOGY Provider, [facility] - 10/09/2024 * * *Final Report* * [...] fracture or dislocation of the left shoulder. Binding Stitcher: PSCB Transcribe Date/Time: Oct 09 2024 7:19P Dictated by : MARYJO NICE MD This examination was interpreted and the report reviewed and electronically signed by: MARYJO NICE MD on Oct 09 2024 7:21PM EST [facility] XR Shoulder - right 3 Viewso n 10-09-2024 IMPRESSION: No acute fracture or dislocation of the right shoulder. Binding Stitcher: PSCB Transcribe Date/Time: Oct 09 2024 7:18P Dictated by : MARYJO NICE MD This examination was interpreted and the report reviewed and electronically signed by: MARYJO NICE MD on Oct 09 2024 7:19PM [facility] DIVISION OF RADIOLOGY * * *Final [...] the humeral head. DIVISION OF RADIOLOGY [facility] 10/09/[facility] * * *Final Report* * [...] fracture or dislocation of the right shoulder. Binding Stit[facility] Trans[facility] Date/Time: Oct 09 2024 7:18P Dictated by : MARYJO NICE MD This examination was interpreted and the report reviewed and electronically signed by: MARYJO NICE MD on Oct 09 2024 7:19PM [facility] CNOVon 10-08-2024 CNOV Office Visit (PSWSTR ) ORION DUMONT ([id number]) 1950 M Date Time Provider Department 10/08/24 11:00 AM QUINCY ALONZO PSWSTR During your visit today, we recorded the following information about you: Pulse Blood pressure Weight 89/minute 118/75 104.3 kg Quincy Alonzo, PRE OWNED SALES MANAGER.INSIDE FINISHER 10/10/2024 3:28 PM Signed FOLLOW UP - PSYCHIATRIC PROGRESS NOTE Visit Type:In person Recording using Virtual Call Center software for draft documentation of the visit was discussed with the patient/authorized service support representative; all questions welcomed and answered. Patient/authorized service support representative agreed to proceed CC: Outpatient follow-up and safety monitoring of previously prescribed psychiatric medication, psychotherapy or other treatment HPI: Patient is a 73-year-old male with a history of anxiety and sleep disturbances, presenting for follow-up. Patient reports significant stress related to caregiving responsibilities for his sister, who has been in a fpc since 09/06. He visits her almost daily, [...] is currently on Eliquis prescribed by his manager commodities. He is managing medication costs by ordering [...] NSAID'S n (more content not included)... [facility] (PSWSTR) ORION DUMONT ([id number]) 1950 M Date Time Provider Department 09/23/24 QUINCY ALONZO PSWSTR During your visit today, we recorded the following information about you: [place] 09/23/2024 11:11 AM Signed Patient called to reschedule failed VV appointment with psychiatrist. Patient requested in office appointment and was scheduled for provider's first available on 11/12/24. Patient has been added to wait list. Quincy Alonzo, PRE OWNED SALES MANAGER.[facility] 09/23/2024 4:38 PM Signed Discussed patient's concerns [...] daily with meals. With each meal. 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 Normal [facility] Cardiology Visit Reporton Cardiology Visit Report [facility] [address] [place] [address] OFFICE VISIT Date of Service: 09/18/24 MR#: [id number] Acct: [id number] Name: ORION DUMONT Rep #: [id number] : 1950 Provider: Dr. Lyudmila decker MD Age/Sex: 73/M [place] [facility] Status: Signed HPI HPI History of Present Illness Details: Patient 73-year-old white male that comes in today for new patient visit. Patient is part of the [facility] system. 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 Patient carries a history of chronic persistent atrial fibrillation has been longstanding. He is status post remote surgical maze procedure by Dr. Arevalo in May 2012 at the [facility] with a left atrial appendage ligation [...] airway disease with asthma treated through the [facility]. He also has obstructive sleep apnea which [...] room air Intake Visit Reasons: Atrial fibrillation [employer] Superintendent Required: No Is patient in pain?: No [...] you fallen in the past year?: No [facility] Medical History Retinal detachment Syncope Postsurgical dumping syndrome Guillaume syndrome CO (more content not included)... [facility] CNOVon 09-17-2024 CNOV Office Visit (PULMWS ) ORION DUMONT ([id number]) 1950 M Date Time Provider Department 09/17/24 12:45 PM JOSSELIN MALDONADO PULMWS During your visit today, we recorded the following information about you: Pulse Respiration Blood pressure Weight 76/minute 16/minute 132/68 105.7 kg Height 1.865 m Josselin Maldonado MD 09/17/2024 2:43 PM [facility] [place] [facility] [place] Note Patient name: Orion Dumont PCP: Florian [...] Stage 1 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 ([facility]) MQ: XC2_6 EXAM DATE/TIME: 08/29/2024 5:25 PM [...] of organic origin Iron deficiency anemia 08/02/2012 superintendent terminal current use of anticoagulant 02/09/2015 Major depressive [...] (osteoarthritis) Orthostatic (more content not included)... Normal [facility] CNPNon 09-17-2024 RAJANN Telephone (CATHY) ORION DUMONT ([id number]) 1950 M Date Time Provider Department 09/17/24 [...] Kathleen, LPN 09/19/2024 11:07 AM Signed See Shiftgighart message Aleyda Harris LPN Allergies As of [...] daily with meals. With each meal. - Pjzqq0-YshW1-E83-E-FA -Fish Oil [id number] ag-vg-eul-mcg cap Take 600 mg by mouth once [...] and surveillan*10/14/2009 05/05/2021 DVT (deep venous thrombosis) ([facility]) [I82.409] 01/12/2010 05/05/2021 Atrial fibrillation [I48.91] 11/03/2009 11/05/2018 Pulmonary embolism ([facility]) [I26.99] 03/01/2010 05/05/2021 Retinal detachment with retinal defect, unspeci*06/14/2010 05/05/2021 Anticoagulation monitoring, INR range 2-3 [Z79.*06/14/2010 09/28/2012 LEXIE (obstructive sleep apnea) [G47.33] 06/14/2010 Hypomagnesemia [E83.42] 06/15/2010 05/05/2021 Hypokalemia [E87.6] 06/16/2010 05/05/2021 Other and unspecified postsurgical nonabsorptio*08/26/19 11 05/05/2021 Wound check, abscess [Z51.89] 08/25/2010 05/05/2021 Varicose veins of both legs with edema [I83.893]2010 Anticoagulation management encounter [Z51.81, Z*2010 05/05/2021 shelter (current) use of anticoagulants [Z79.*03/18/2011 05/05/2021 Lattice [...] 05/05/2021 SUMMARY [V999.95] 07/03/2012 05/05/2021 DVT prophylaxis [YAV7618] 07/03/2012 (more content not included)... Normal [facility] LUNG DIFFUSION CAPACITY (LISY O)on 09-17-2024 LUNG DIFFUSION CAPACITY (DLCO) [facility] [address] [address] Test Date: 2024-09-17 Pat Name: ORION DUMONT Department: Room: Gender: Male 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: : 1950 Requested By: Order Number: [id number] Reading MD: Josselin Maldonado MD Interpretive Statements [...] 15:12:52 EDT by Josselin Maldonado MD ID: [id number] Name: ORION DUMONT Race: White Ht: 73.43 [...] 90-100 0.51 10 FIVC 4.70 4.59 -2 SQZ21-91 1.44 1.09 2.56 4.66 56 -1.18 2.42 [...] DLCO met with 2 acceptable maneuvers. Normal [facility] No Panel Informationon 09-17 [facility] [place] [address] [place] [address] Test Date: 2024-09-17 Pat Name: ORION DUMONT Department: Room: Gender: Male 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: : 1950 Requested By: Order Number: [id number] Reading MD: Josselin Maldonado MD Interpretive Statements [...] 15:12:52 EDT by Josselin Maldonado MD ID: [id number] Name: ORION DUMONT Race: White Ht: 73.43 [...] 90-100 0.51 10 FIVC 4.70 4.59 -2 QRR89-02 1.44 1.09 2.56 4.66 56 -1.18 2.42 [...] with 2 acceptable maneuvers. PULMONARY FUNCTION LAB [facility] Vale Lainez RPF T 09/17/2024 1:14 PM RESPIRATORY THERAPY ORAL EXHALED [...] DATE: September 17, 2024 TIME: 1:14 PM [facility] SPIROMETRY WITH DILATOR IF O BSTRUCTEDon 09-17-2024 DLCO (ml/min/mmHg) 23.83 ml/min/mmHg [facility] DLCO LLN (ml/min/mmHg) 20.68 ml/min/mmHg C [facility] DLCO PREDICTED (ml/min/mmHg) 28.2 ml/min/mmHg [facility] DLCO ULN (ml/min/mmHg) 37.16 ml/min/mmHg C [facility] DLCO/VA (ml/min/mmHg/L) 0.03 ml/m in/mmHg/ L [facility] DLCO/VA PREDICTED (ml/min/mmHg/L) 0.04 ml/min/mmHg/ L [facility] DLCO/VAcor (ml/min/mmHg/L) 0.03 ml/min/mmHg/ L [facility] DLCOcor (ml/min/mmHg) 23.35 ml/min/mmHg Cl [facility] DLCOcor PREDICTED (ml/min/mmHg) 28.2 ml/min/mmHg [facility] ERV PREDICTED (L) 1.52 L/S [facility] FEF25% POST (L/S) 5.94 L/S [facility] FEF25% PRE (L/S) 4.36 L/S [facility] LDJ36-71% LLN (L/S) 1.09 L/S [facility] JAX05-12% POST (L/S) 2.42 L/S [facility] IDN60-16% PRE (L/S) 1.44 L/S [facility] RLL35-42% PREDICTED (L/S) 2.56 L/S [facility] FEF75% LLN (L/S) 0.25 L/S [facility] FEF75% POST (L/S) 0.96 L/S [facility] FEF75% PRE (L/S0 0.48 L/S [facility] FEF75% PREDICTED (L/S) 0.7 L/S [facility] FEF75% ULN (L/S) 1.83 L/S [facility] FET POST (S) 8.76 S [facility] FET PRE (S) 9.03 S [facility] FEV1 LLN (L) 2.47 L [facility] FEV1 PRE (L) 2.86 L [facility] FEV1 PREDICTED (L) 3.39 L [facility] FEV1 ULN (L) 4.25 L [facility] FEV1/FVC LLN (%) 62 % [facility] FEV1/FVC POST (%) 70 % [facility] FEV1/FVC PRE (%) 62 % [facility] FEV1/FVC PREDICTED (%) 76 % [facility] FEV1_POST (L) 3.33 L [facility] FVC LLN (L) 3.39 L [facility] FVC POST (L) 4.76 L [facility] FVC PRE (L) 4.6 L [facility] FVC PREDICTED (L) 4.56 L [facility] FVC ULN (L) 5.76 L [facility] IC PREDICTED (L) 3.04 L/S [facility] PEF LLN (L/S) 6.42 L/S [facility] PEF POST (L/S) 6.87 L/S [facility] PEF PRE (L/S) 5.68 L/S [facility] PEF ULN (L/S) 11.52 L/S [facility] SVC LLN (L) 3.39 L/S [facility] SVC PREDICTED (L) 4.56 L/S [facility] SVC ULN (L) 5.76 L/S [facility] VA (L) 6.91 L [facility] VA PREDICTED (L) 7.2 L [facility] SPIROMETRY WITH DILATOR IF OBSTRUCTED [facility] [place] [address] [place] [place] [address] Test Date: 2024-09-17 Pat Name: ORION DUMONT Department: Room: Gender: Male 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: : 1950 Requested By: Order Number: [id number] Reading MD: Josselin Maldonado MD Interpretive Statements [...] 15:12:52 EDT by Josselin Maldonado MD ID: [id number] Name: ORION DUMONT Race: White Ht: 73.43 [...] 90-100 0.51 10 FIVC 4.70 4.59 -2 VKI26-27 1.44 1.09 2.56 4.66 56 -1.18 2.42 [...] 76 % FEV1/FVC_LLN (%) : 62 % TQK49_TWU (L/S) : 4.36 L/S YKW64_CBOS (L/S) : 5.94 L/S GQK04_OUM (L/S) : 0.48 L/S WCN38_WTPJ (L/S) : 0.96 L/S JVD89_BRLP (L/S) : 0.70 L/S FVZ02_CBM (L/S) : 0.25 L/S VXG03_CVS (L/S) : 1.83 L/S CPF25-83%_PRE (L/S) : 1.44 L/S UQI32-45%_POST (L/S) : 2.42 L/S KPW44-11%_PRED (L/S) : 2.56 L/S SSV80-65%_LLN (L/S) : 1.09 L/S PEF_PRE (L/S) : [...] ml/min/mmHg DLCO/VACOR (ML/MIN/MMHG/L) : 0.03 ml/min/mmHg/L Normal [facility] CNPNon 09-14-2024 CNPN Telephone (VTRIAG) ORION DUMONT ([id number]) 1950 M Date Time Provider Department 09/14/24 [...] daily with meals. With each meal. - Ifuib3-SbtL3-M90-E-FA -Fish Oil 231-88-129-800 ou-al-tdh-mcg cap Take 600 mg by mouth once [...] [I83.893]2010 Anticoagulation management encounter [Z51.81, Z*2010 05/05/2021 superintendent terminal (current) use of anticoagulants [Z79.*03/18/2011 05/05/2021 Lattice [...] 05/05/2021 SUMMARY [V999.95] 07/03/2012 05/05/2021 DVT prophylaxis [TSA5410] 07/03/2012 05/05/2021 Pericarditis [I31.9] 07/04/2012 05/09/2022 Gastric bypass status for obesity [Z98.84] 08/02/2012 Vitamin d deficiency [E55.9] 08/02/2012 Ir (more content not included)... Normal [facility] Bacteria Ur Culton Bacteria identified Cx Nom (U) ORGANISM ID: 1 <10,000 CFU/ml Streptococcus agalactiae (group b streptococcus) Insignificant colony count. No further workup. Normal [facility] Comment on above: Performed By: #### 6 30-4 ####[facility] [id number] [place] [address] [place] Urinalysis complete panel (U )on 09-13-2024 Bacteria LM.HPF (Urine sed) [#/Area] Negative Negative /HPF [facility] Bilirubin Ql (U) Negative Negative [facility] Clarity (Unsp spec) Clear Clear [facility] Color (U) Yellow Yellow [facility] Epithelial cells LM.HPF (Urine sed) [#/Area] None Seen /HPF [facility] Glucose Test strip (U) [Mass/Vol] Negative Negative [facility] Hemoglobin Ql (U) Negative Negative [facility] Hyaline casts (Urine sed) [#/Area] 4-10 /LPF Abnormal 0 /LPF [facility] Interpretation and review of laboratory results Abnormal [facility] Ketones Ql (U) Negative Negative [facility] Leukocyte esterase Test strip Ql (U) Negative Negative [facility] Nitrite Ql (U) Negative Negative [facility] pH (U) 6 [pH] NINF - 8.5 [facility] Protein (U) [Mass/Vol] Negative Negative [facility] RBC LM.HPF (Urine sed) [#/Area] 0-2 /HPF 0-2 /HPF [facility] Specific gravity (U) [Rel density] 1.011 1.005 - 1.030 [facility] Urobilinogen Ql (U) 1.0 EU/dL 0.2-1.0 EU/dL [facility] WBC LM.HPF (Urine sed) [#/Area] 0-5 /HPF 0-5 /HPF [facility] This test was developed and its performance characteristics determined by [facility]'s [facility] [place] ([facility] It has not been cleared or approved by the FDA. [facility] is regulated under CLIA as qualified to perform high-complexity testing. This test is used for clinical purposes. It should not be regarded as investigational or for research. [facility] Bacteria LM.HPF (Urine sed) [#/Area] Negative Normal Negative [facility] Comment on above: Order Comment: Speci men Type: URINE SPECIMEN Ordering Facility: [facility] Address: [address] [place] [address] Performed By: #### 2 4356-8 #### [facility] CLIA [id number] [address] [place] [address] [place] Bilirubin Ql (U) Negative Normal Negative [facility] Comment on above: Order Comment: Speci men Type: URINE SPECIMEN Ordering Facility: [facility] Address: [address] [place] [address] Performed By: #### 2 4356-8 #### [facility] CLIA [id number] [address] [place] [address] [place] Clarity (Unsp spec) Clear Normal Clear [facility] Comment on above: Order Comment: Speci men Type: URINE SPECIMEN Ordering Facility: [facility] Address: [address] [place] [address] Performed By: #### 2 4356-8 #### [facility] CLIA [id number] [address] [place] [address] [place] Color (U) Yellow Normal Yellow [facility] Comment on above: Order Comment: Speci men Type: URINE SPECIMEN Ordering Facility: [facility] Address: [address] [place] [address] Performed By: #### 2 4356-8 #### [facility] CLIA [id number] [address] [place] [address] [place] Epithelial cells LM.HPF (Urine sed) [#/Area] None Seen Normal [facility] Comment on above: Order Comment: Speci men Type: URINE SPECIMEN Ordering Facility: [facility] Address: [address] [place] [address] Performed By: #### 2 4356-8 #### [facility] CLIA [id number] [address] [place] [address] [place] Glucose Test strip (U) [Mass/Vol] Negative Normal Negative [facility] Comment on above: Order Comment: Speci men Type: URINE SPECIMEN Ordering Facility: [facility] Address: [address] [place] [address] Performed By: #### 2 4356-8 #### [facility] CLIA [id number] [address] [place] [address] [place] Hemoglobin Ql (U) Negative Normal Negative [facility] Comment on above: Order Comment: Speci men Type: URINE SPECIMEN Ordering Facility: [facility] Address: [address] [place] [address] Performed By: #### 2 4356-8 #### [facility] CLIA [id number] [address] [place] [address] [place] Hyaline casts (Urine sed) [#/Area] 4-10 /LPF Abnormal 0 /LPF [facility] Comment on above: Order Comment: Speci men Type: URINE SPECIMEN Ordering Facility: [facility] Address: [address] [place] [address] Performed By: #### 2 4356-8 #### [facility] CLIA [id number] [address] [place], [place] [address] [place] Ketones Ql (U) Negative Normal Negative [facility] Comment on above: Order Comment: Speci men Type: URINE SPECIMEN Ordering Facility: [facility] Address: [address] [place] [address] Performed By: #### 2 4356-8 #### [facility] CLIA [id number] [address] [place] [address] [place] Leukocyte esterase Test strip Ql (U) Negative Normal Negative [facility] Comment on above: Order Comment: Speci men Type: URINE SPECIMEN Ordering Facility: [facility] Address: [address] [place] [address] Performed By: #### 2 4356-8 #### [facility] CLIA [id number] [address] [place] [address] [place] Nitrite Ql (U) Negative Normal Negative [facility] Comment on above: Order Comment: Speci men Type: URINE SPECIMEN Ordering Facility: [facility] Address: [address] [place] [address] Performed By: #### 2 4356-8 #### [facility] CLIA [id number] [address] [place] [address] [place] pH (U) 6.0 [pH] Normal <8.5 [facility] Comment on above: Order Comment: Speci men Type: URINE SPECIMEN Ordering Facility: [facility] Address: [address] [place] [address] Performed By: #### 2 4356-8 #### [facility] CLIA [id number] [address] [place] [address] [place] Protein (U) [Mass/Vol] Negative Normal Negative [facility] Comment on above: Order Comment: Speci men Type: URINE SPECIMEN Ordering Facility: [facility] Address: [address] [place] [address] Performed By: #### 2 4356-8 #### [facility] CLIA [id number] [address] [place] [address] [place] RBC LM.HPF (Urine sed) [#/Area] 0-2 /HPF Normal 0-2 /HPF [facility] Comment on above: Order Comment: Speci men Type: URINE SPECIMEN Ordering Facility: [facility] Address: [address] [place] [address] Performed By: #### 2 4356-8 #### [facility] CLIA [id number] [address] [place] [address] [place] Specific gravity (U) [Rel density] 1.011 Normal 1.005-1.030 [facility] Comment on above: Order Comment: Speci men Type: URINE SPECIMEN Ordering Facility: [facility] Address: [address] [place] [address] Performed By: #### 2 4356-8 #### [facility] CLIA [id number] [address] [place] [address] [place] Urobilinogen Ql (U) 1.0 EU/dL Normal 0.2-1.0 EU/dL [facility] Comment on above: Order Comment: Speci men Type: URINE SPECIMEN Ordering Facility: [facility] Address: [address] [place] [address] Performed By: #### 2 4356-8 #### [facility] CLIA [id number] [address] [place] [address] [place] WBC LM.HPF (Urine sed) [#/Area] 0-5 /HPF Normal 0-5 /HPF [facility] Comment on above: Order Comment: Speci men Type: URINE SPECIMEN Ordering Facility: [facility] Address: [address] [place] [address] Performed By: #### 2 4356-8 #### [facility] CLIA [id number] [address] [place] CNOVon 08-29-2024 CNOV Office Visit (INTMWS ) ORION DUMONT ([id number]) 1950 M Date Time Provider Department 08/29/24 4:00 PM FLORIAN GONZALEZ INTMWS During your visit today, we recorded the following information about you: Temperature Pulse Respiration Blood pressure 97.6 degrees 84/minute 20/minute 110/68 Weight 104.3 kg Florian Gonzalez MD 08/29/2024 4:59 PM Signed This note was created using [employer]. Subjective Patient presents with: Cough Orion Dumont is a 73 year old male. Recording using Virtual Call Center software for draft documentation of the visit was discussed with the patient/authorized service support representative; all questions welcomed and answered. Patient/authorized service support representative agreed to proceed Cough: - Persistent cough with yellow sputum production x1 week. - Coughing episodes last 1-2 hours, unrelieved by cough drops or syrup. - Associated symptoms: rhinorrhea, epiphora, wheezing, and mild odynophagia. - Denies known exposure to illness; sister was recently hospitalized and in a fpc, visited daily. 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 With each meal. Xdwvb0-RowX2-T99-E-FA - (more content not included)... Normal [facility] XR CHEST 2V FRONTAL/LATon XR CHEST 2V FRONTAL/LAT * * *Final Repor t* * * DATE OF EXAM: Aug 29 2024 5:25PM WOX 5291 - XR CHEST 2V FRONTAL/LAT / PROCEDURE REASON: Stage 1 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 ([facility]) * * * * Physician Interpretation * * * * EXAMINATION: CHEST RADIOGRAPH (2 VIEW FRONTAL and LATERAL) CLINICAL HISTORY: Stage 1 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 ([facility]) MQ: XC2_6 EXAM DATE/TIME: 08/29/2024 5:25 PM COMPARISON: 05/28/2024 RESULT: Lines, tubes, and devices: Atrial appendage device again noted Lungs and pleura: No consolidation. No lung mass. No pleural effusion. No pneumothorax. Cardiomediastinal silhouette: Normal cardiomediastinal silhouette. Bones and soft tissues: Unremarkable. IMPRESSION: No acute radiographic abnormality. Binding Stitcher: EVELYNE Transcribe Date/Time: Aug 30 2024 10:46A Dictated by : FANTA WOO MD This examination was interpreted and the report reviewed and electronically signed by: FANTA WOO MD on Aug 30 2024 10:47AM EST [id number] Normal [facility] CNOVon 08-06-2024 CNOV Office Visit (PSWSTR ) TIMORION Bianca ([id number]) 1950 M Date Time Provider Department 08/06/24 10:30 AM QUINCY ALONZO PSWSTR During your visit today, we recorded the following information about you: Pulse Respiration Blood pressure Weight 85/minute 18/minute 134/86 111.4 kg Quincy Alonzo, PRE OWNED SALES MANAGER.INSIDE FINISHER 08/06/2024 12:20 PM Signed FOLLOW UP - PSYCHIATRIC PROGRESS NOTE Visit Type: In person Recording using Virtual Call Center software for draft documentation of the visit was discussed with the patient/authorized service support representative; all questions welcomed and answered. Patient/authorized service support representative agreed to proceed CC: Outpatient follow-up [...] [facility] and plans to contact [facility]. He expresses a desire to manage his impulsive behaviors and reduce stress. He is currently living with his sister, who has been hospitalized and transferred to a fpc after multiple falls. Another sister from [place] is visiting to help with the situation. [...] 09/21/2012 Hyperlipidem (more content not included)... Normal [facility] Absolute lymphocyte countOrd ered By: Cortez Maldonado on 07-22-2024 Lymphocytes Auto (Unsp spec) [#/Vol] 1.78 10*3/uL 0.83-4.51 [facility] Comment on above: Previous reported re sult: 1.92 X10^3/uLEdited by: ISRA on 07/22/24:1754 AMENDED REPORT 07/22/241753 Absolute Lymph previously reported as: 1.92 X10^3/uL Absolute neutrophil countOrd ered By: Cortez Maldonado on 07-22-2024 Neutrophils (Bld) [#/Vol] 2.1 10*3/uL 2.0-7.7 [facility] Comment on above: Previous reported re sult: 2.0 X10^3/uLEdited by: ISRA on 07/22/24:1753 AMENDED REPORT 07/22/241752 Absolute Neut previously reported as: 2.0 X10^3/uL Anion gap in Serum or Plasma Ordered By: Cortez Maldonado on 07-22-2024 Anion gap [Moles/Vol] 8 mmol/L 5-15 [facility] Automated lymphocyte count a s percentage of total leukocytesOrdered By: Cortez Maldonado on 07-22-2024 Lymphocytes/100 WBC Auto (Unsp spec) 41.3 % High 19-41 [facility] Comment on above: Previous reported re sult: 43.5 %Edited by: ISRA on 07/22/24:175 AMENDED REPORT 07/22/241751 LY% previously reported as: 43.5 H % BUN/creatinine ratioOrdered By: Cortez Maldonado on 07-22-2024 Urea nitrogen/Creatinine [Mass ratio] 19.2 mg/mg - [facility] Basic Metabolic Profile (BMP )on 07-22-2024 BUN/CRE 19.2 RATIO Normal - [facility] Comment on above: Performed By: #### L 500.2500, L100.0100 #### [facility] Laboratory [address] [place], [address] Calcium [Mass/Vol] 9.1 mg/dL Normal 7.6-11.0 [facility] Comment on above: Performed By: #### L 500.2500, L100.0100 #### [facility] [address] [place], [address] Chloride [Moles/Vol] 108 mmol/L Normal 98-108 [facility] Comment on above: Performed By: #### L 500.2500, L100.0100 #### [facility] [address] [place], [address] CO2 [Moles/Vol] 24.5 mmol/L Normal 21.0-32.0 [facility] Comment on above: Performed By: #### L 500.2500, L100.0100 #### [facility] [address] [place], [address] Creatinine [Mass/Vol] 0.86 mg/dL Normal 0.70-1.20 [facility] Comment on above: Performed By: #### L 500.2500, L100.0100 #### [facility] [address] [place], [address] ECRCL 99.80 ml/min Normal 50-250 [facility] Comment on above: Performed By: #### L 500.2500, L100.0100 #### [facility] [address] [place], [address] GAP 8 Normal 5-15 [facility] Comment on above: Performed By: #### L 500.2500, L100.0100 #### [facility] [address] [place], [address] GFR/1.73 sq M.predicted among non-blacks MDRD (S/P/Bld) [Vol rate/Area] 92 mL/min/{1.73_m2} Normal >60 [facility] Comment on above: Result Comment: mL/m in/1.73m2 CKD-EPI Creatinine Equation (2020) Performed By: #### L 500.2500, L100.0100 #### [facility] [address] [place], [address] Glucose [Mass/Vol] 64 mg/dL Low 70-99 [facility] Comment on above: Performed By: #### L 500.2500, L100.0100 #### [facility] [address] [place], [address] Potassium [Moles/Vol] 4.1 mmol/L Normal 3.3-5.1 [facility] Comment on above: Performed By: #### L 500.2500, L100.0100 #### [facility] [address] [place], [address] Sodium [Moles/Vol] 140 mmol/L Normal 133-145 [facility] Comment on above: Performed By: #### L 500.2500, L100.0100 #### [facility] [address] [place], [address] Urea nitrogen [Mass/Vol] 17 mg/dL Normal 4-19 [facility] Comment on above: Performed By: #### L 500.2500, L100.0100 #### [facility] [address] [place], [address] Basophil percentageOrdered B y: Cortez Maldonado on 07-22-2024 Basophils/100 WBC (Bld) 0.7 % 0-1 [facility] CBC W/Diff, Automatedon 04- CBC W Auto Differential panel (Bld) Normal [facility] Comment on above: Performed By: #### L 500.2500, L100.0100 #### [facility] [address] [place], [place], [address] CNOVon 07-22-2024 CNOV Office Visit (UCTR ) ORION DUMONT ([id number]) 1950 M Vendor Date Time Provider Department 07/22/24 4:15 PM JACKELINE HAIR [facility] During your visit today, we recorded the following information about you: Jackeline Hair APRN.INSIDE FINISHER 07/22/2024 4:33 PM Signed At this time [...] daily with meals. With each meal. - Vvgzr8-DvzJ3-D49-E-FA -Fish Oil [id number] bv-xa-ajr-mcg cap Take 600 mg by mouth once [...] and surveillan*10/14/2009 05/05/2021 DVT (deep venous thrombosis) ([facility]) [I82.409] 01/12/2010 05/05/2021 Atrial fibrillation [I48.91] 11/03/2009 11/05/2018 Pulmonary embolism ([facility]) [I26.99] 03/01/2010 05/05/2021 Retinal detachment with retinal defect, unspeci*06/14/2010 05/05/2021 Anticoagulation monitoring, INR range 2-3 [Z79.*06/14/2010 09/28/2012 LEXIE (obstructive sleep apnea) [G47.33] 06/14/2010 Hypomagnesemia [E83.42] 06/15/2010 05/05/2021 Hypokalemia [E87.6] 06/16/2010 05/05/2021 Other and unspecified postsurgical nonabsorptio*08/26/19 11 05/05/2021 Wound check, abscess [Z51.89] 08/25/2010 05/05/2021 Varicose veins of both legs with edema [I83.893]2010 Anticoagulation management encounter [Z51.81, Z*2010 05/05/2021 superintendent terminal (current) use of anticoagulants [Z79.*03/18/2011 05/05/2021 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 Normal [facility] Carbon dioxide, total [Moles /volume] in Central venous bloodOrdered By: Cortez Maldonado on 07-22-2024 CO2 [Moles/Vol] 24.5 mmol/L 21.0-32.0 [facility] Chloride assayOrdered By: Dejon Maldonado on 07-22-2024 Chloride [Moles/Vol] 108 mmol/L 98-108 [facility] Emergency Department Summary on 07-22-2024 Emergency Department Summary [facility] Medical Records Department [address] [place] [address] Emergency Department Summary 07/22/24 MR#: [id number] Acct: [id number] Name: ORION DUMONT Rep #: [id number] : 1950 73 From: Cortez Maldonado MD [...] similar symptoms: Yes Recent Illness/Hospitalizati on: No [facility] Medical History Afib Home Medications ???Medication ???Instructions [...] Rate 16 (more content not included)... Normal [facility] Eosinophil percentageOrdered By: Cortez Maldonado on 07-22-2024 Eosinophils/100 WBC (Bld) 4.4 % 0-5 [facility] Comment on above: Previous reported re sult: 3.9 %Edited by: ISRA on 07/22/24:1752 AMENDED REPORT 07/22/241751 EO% previously reported as: 3.9 % Erythrocyte distribution wid th (RBC) [Ratio]Ordered By: Cortez Maldonado on 07-22-2024 Erythrocyte distribution width (RBC) [Entitic vol] 48.3 fL High 35.1-43.9 [facility] Comment on above: Previous reported re sult: 69.7 flEdited by: ISRA on 07/22/24:1750 AMENDED REPORT 07/22/241749 RDW SD previously reported as: 69.7 H fl Erythrocyte distribution wid th ratioOrdered By: Cortez Maldonado on 07-22-2024 Erythrocyte distribution width (RBC) [Ratio] 14.4 % 11.6-14.6 [facility] Comment on above: Previous reported re sult: 19.9 %Edited by: ISRA on 07/22/24:1749 AMENDED REPORT 07/22/241748 RDW CV previously reported as: 19.9 H % Erythrocyte distribution wid th standard deviationOrdered By: Cortez Maldonado on 07-22-2024 Erythrocyte distribution width (RBC) [Ratio] 48.3 fl High 35.1-43.9 [facility] Comment on above: Previous reported re sult: 69.7 flEdited by: ISRA on 07/22/24:1750 AMENDED REPORT 07/22/241749 RDW SD previously reported as: 69.7 H fl Estimation of creatinine nitish aranceOrdered By: Cortez Maldonado on 07-22-2024 Estimated Creatinine Clearance Calc 99.80 ml/min 50-250 [facility] GFR/1.73 sq M.predicted ayesha g non-blacks MDRD (S/P/Bld) [Vol rate/Area]Ordered By: Cortez Maldonado on 07-22-2024 Estimated GFR (MDRD) Non-Af Amer 92 >60 [facility] Comment on above: mL/min/1.73m2 CKD-EP I Creatinine Equation (2020) Glomerular filtration rate ( GFR) estimation/1.73 sq m using serum, plasma, or whole bOrdered By: Cortez Maldonado on 07-22-2024 GFR/1.73 sq M.predicted among non-blacks MDRD (S/P/Bld) [Vol rate/Area] 92 mL/min/{1.73_m2} >60 [facility] Comment on above: mL/min/1.73m2 CKD-EP I Creatinine Equation (2020) Hematocrit Auto (Bld) [Volum e fraction]Ordered By: Cortez Maldonado on 07-22-2024 Hematocrit (Bld) [Volume fraction] 36.2 % Low 40-54 [facility] Comment on above: Previous reported re sult: 25.3 %Edited by: ISRA on 07/22/24:1748 AMENDED REPORT 07/22/241747 HCT previously reported as: 25.3 L % Hemoglobin measurementOrdere d By: Cortez Maldonado on 07-22-2024 Hemoglobin (Bld) [Mass/Vol] 12.2 g/dL Low 13.0-16.5 [facility] Comment on above: Previous reported re sult: 7.9 g/dLEdited by: ISRA on 07/22/24:1748 AMENDED REPORT 07/22/241747 HGB previously reported as: 7.9 L g/dL Immature granulocytes/100 WB C Auto (Bld)Ordered By: Cortez Maldonado on 07-22-2024 Immature granulocytes/100 WBC (Bld) 0.200 % 0.0-0.9 [facility] Comment on above: IG% - Immature Granu locytes (promyelocytes, myelocytes and metamyelocytes) > 1% indicates that a LEFT SHIFT is Present. Lymphocytes Auto (Unsp spec) [#/Vol]Ordered By: Cortez Maldonado on 07-22-2024 Lymphocytes (Bld) [#/Vol] 1.78 10*3/uL 0.83-4.51 [facility] Comment on above: Previous reported re sult: 1.92 X10^3/uLEdited by: ISRA on 07/22/24:1754 AMENDED REPORT 07/22/241753 Absolute Lymph previously reported as: 1.92 X10^3/uL Lymphocytes/100 WBC Auto (Un sp spec)Ordered By: Cortez Maldonado on 07-22-2024 Lymphocytes/100 WBC (Bld) 41.3 % High 19-41 [facility] Comment on above: Previous reported re sult: 43.5 %Edited by: ISRA on 07/22/24:1752 AMENDED REPORT 07/22/241751 LY% previously reported as: 43.5 H % MCV (mean corpuscular volume ) determinationOrdered By: Cortez Maldonado on 07-22-2024 MCV (RBC) [Entitic vol] 91.6 fL 80-94 [facility] Comment on above: Previous reported re sult: 97.7 fLEdited by: ISRA on 07/22/24:1749 AMENDED REPORT 07/22/241748 MCV previously reported as: 97.7 H fL Mean corpuscular hemoglobin (MCH) determinationOrdered By: Cortez Maldonado on 07-22-2024 MCH (RBC) [Entitic mass] 30.9 pg 27.0-32.0 [facility] Comment on above: Previous reported re sult: 30.5 pgEdited by: ISRA on 07/22/24:1749 AMENDED REPORT 07/22/241748 MCH previously reported as: 30.5 pg Mean corpuscular hemoglobin concentration (MCHC) determinationOrdered By: Cortez Maldonado on 07-22-2024 MCHC (RBC) [Mass/Vol] 33.7 g/dL 32-36 [facility] Comment on above: Previous reported re sult: 31.2 g/dLEdited by: ISRA on 07/22/24:1749 AMENDED REPORT 07/22/241748 MCHC previously reported as: 31.2 L g/dL Mean platelet volume determi nationOrdered By: Cortez Maldonado on 07-22-2024 Platelet mean volume (Bld) [Entitic vol] 11.3 fL 6.2-12.0 [facility] Comment on above: Previous reported re sult: 10.7 flEdited by: ISRA on 07/22/24:1750 AMENDED REPORT 07/22/241749 MPV previously reported as: 10.7 fl Monocyte percentageOrdered B y: Cortez Maldonado on 07-22-2024 Monocytes/100 WBC (Bld) 5.8 % 0-10 [facility] Comment on above: Previous reported re sult: 5.4 %Edited by: ISRA on 07/22/24:1752 AMENDED REPORT 07/22/241751 MONO% previously reported as: 5.4 % Neutrophil percentageOrdered By: Cortez Maldonado on 07-22-2024 Neutrophils/100 WBC (Bld) 47.6 % 47-70 [facility] Comment on above: Previous reported re sult: 46.3 %Edited by: ISRA on 07/22/24:175 AMENDED REPORT 07/22/241750 NEUT% previously reported as: 46.3 L % Nucleated red blood cell per centageOrdered By: Cortez Maldonado on 07-22-2024 Nucleated RBC/100 WBC (Bld) [Ratio] 0 % 0-5 [facility] Platelet countOrdered By: Dejon Maldonado on 07-22-2024 Platelets (Bld) [#/Vol] 191 10*3/uL 150-450 [facility] Comment on above: Previous reported re sult: 135 K/[id number] by: ISRA on 07/22/24:1750 AMENDED REPORT 07/22/241749 PLT previously reported as: 135 L K/mm3 Potassium (Unsp spec) [Mass/ Vol]Ordered By: Cortez Maldonado on 07-22-2024 Potassium [Moles/Vol] 4.1 mmol/L 3.3-5.1 [facility] Potassium measurement (mass/ volume)Ordered By: Cortez Maldonado on 07-22-2024 Potassium (Unsp spec) [Mass/Vol] 4.1 mmol/L 3.3-5.1 [facility] RBC Auto (Bld) [#/Vol]Ordere d By: Cortez Maldonado on 07-22-2024 RBC (Bld) [#/Vol] 3.95 10*6/uL Low 4.6-6.2 [facility] Comment on above: Previous reported re sult: 2.59 M/uw4Gebdqx by: ISRA on 07/22/24:1748 AMENDED REPORT 07/22/241747 RBC previously reported as: 2.59 L M/mm3 Serum creatinine measurement (mass/volume)Ordered By: Cortez Maldonado on 07-22-2024 Creatinine [Mass/Vol] 0.86 mg/dL 0.70-1.20 [facility] Serum glucose measurement (m ass/volume)Ordered By: Cortez Maldonado on 07-22-2024 Glucose [Mass/Vol] 64 mg/dL Low 70-99 [facility] Serum or plasma calcium tierra urement (mass/volume)Ordered By: Cortez Maldonado on 07-22-2024 Calcium [Mass/Vol] 9.1 mg/dL 7.6-11.0 [facility] Serum or plasma urea nitroge n measurement (mass/volume)Ordered By: Cortez Maldonado on 07-22-2024 Urea nitrogen [Mass/Vol] 17 mg/dL 4-19 [facility] Sodium levelOrdered By: Cortez Maldonado on 07-22-2024 Sodium [Moles/Vol] 140 mmol/L 133-145 [facility] White blood cell (WBC) count Ordered By: Cortez Maldonado on 07-22-2024 WBC (Bld) [#/Vol] 4.3 10*3/uL Low 4.4-11.0 [facility] Comment on above: Previous reported re sult: 1.9 K/zh5Rysnsd by: ISRA on 07/22/24:1747 AMENDED REPORT 07/22/241746 WBC previously reported as: 1.9 L K/mm3 Antoinette 07-19-2024 CNPN Telephone (PSYLME) ORION DUMONT ([id number]) 1950 M Vendor Date Time Provider Department 07/19/24 KUSUM JEFFRIES PSCOREY During your visit today, we recorded the following information about you: Kusum Jeffries LPCC 07/19/2024 11:08 AM Signed Behavioral Health Social Work Progress Note Patient identified for [facility] from: CDM Reason for referral: Resources Behavioral Health Resources: Psychology - talk therapy [facility] encounter type: Telephone Encounter Attempts to Outreach: 1 attempt Patient Discharged?: No Patient reported that caregiver was able to meet their needs today?: N/A Phone call placed today that went to [employer]. Left my contact information and brief nature of call. Initial outreach also completed via [employer] sending list of in network providers with insurance. [place] [facility] July 19, 2024 Allergies As of Date: [...] daily with meals. With each meal. 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 Normal [facility] CNPNon 07-01-2024 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 She has an appointment in [place] tomorrow and he doesn't think he can [...] in the future. BRIAN Manuel Nishi J, APRN.INSIDE FINISHER 07/01/2024 4:23 PM Signed Please notify the patient that I am glad that Seroquel 50 mg appears to be helping his symptoms. I have sent a new prescription of Seroquel 50 mg for 90 days to the [facility] pharmacy. Katya Salmon LPN 07/03/2024 10:53 AM [...] daily with meals. With each meal. - Lxfyw9-WujV9-L15-E-FA -Fish Oil [id number] nn-fi-kbf-mcg cap Take 600 mg by mouth once [...] and surveillan*10/14/2009 05/05/2021 DVT (deep venous thrombosis) ([facility]) [I82.409] 01/12/2010 05/05/2021 Atrial fibrillation [I48.91] 11/03/2009 11/05/2018 Pulmonary embolism ([facility]) [I26.99] 03/01/2010 05/05/2021 Retinal detachment with retinal defect, unspeci*06/14/2010 05/05/2021 Anticoagulation monitoring, INR range 2-3 [Z79.*06/14/2010 09/28/2012 LEXIE (obstructive sleep apnea) [G47.33] 06/14/2010 Hypomagnesemia [E83.42] 06/15/2010 05/05/2021 Hypokalemia [E87.6] 06/16/2010 05/05/2021 Other and unspecified postsurgical nonabsorptio* (more content not included)... Normal [facility] ORION DUMONT ([id number]) 1950 M Vendor Date Time Provider Department 06/10/24 [facility] During your visit today, we recorded the following information about you: Glory Horowitz 06/10/2024 2:44 PM Signed Patient wondering if they need appointment for medication before 07/02 appointment. Quincy Alonzo, PRE OWNED SALES MANAGER.[facility] 06/10/2024 3:19 PM Signed Please let the [...] daily with meals. With each meal. 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 Normal [facility] XR Shoulder - right 2 Viewso n [...] evaluate for next best step in treatment [facility] CNOVon 05-28-2024 CNOV Office Visit (INTMWS ) ORION DUMONT ([id number]) 1950 M Vendor Date Time Provider Department 05/28/24 3:20 PM DOMO GRANDA INTMWS During your visit today, we recorded the following information about you: Temperature Pulse Respiration Blood pressure 98.9 degrees 64/minute 20/minute 155/80 Weight 108.8 kg Domo Granda, BRAD.CRYSTALLOGRAPHER 05/28/2024 4:10 PM Signed SUBJECTIVE Orion Dumont [...] Stage 1 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 ([facility]) ASSESSMENT/PLAN: 1. 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 Normal [facility] CNOV Office Visit (PSWSTR ) ORION DUMONT ([id number]) 1950 M Vendor Date Time Provider Department 05/28/24 2:30 PM QUINCY ALONZO PSWSTR During your visit today, we recorded the following information about you: Pulse Respiration Blood pressure Weight 64/minute 20/minute 155/80 108.8 kg Quincy Alonzo, PRE OWNED SALES MANAGER.INSIDE FINISHER 05/28/2024 3:25 PM Signed FOLLOW UP - [...] taking his medications. Referred patient to the [facility] IOP for intensive therapy as most of his stressors are related to multiple psychosocial factors. Patient has also been encouraged to pursue individual counseling senior care. He is in agreement with this plan. Patient will reach out to the provider to share if he will be able to engage in the IOP program or not after speaking with their intake team. Today Orion shares that he is concerned that he might have pneumonia. Has an appointment with Dmoo Granda at 3:20 pm today. Shares that [...] was WNL. Did not start IOP at [facility] as discussed. I don't know, I just feel like I am not worth it. Is ashamed to share his struggles. Has an appointment that he has to schedule with the [facility] career resource technician. Encouraged patient to ask them about referrals [...] depressed mood hosp 95' Arthritis Atrial fibrillation ([facility]) 11/03/2009 s/p ablation, on coumadin, OFF now. 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 [...] might actual (more content not included)... Normal [facility] XR CHEST 2V FRONTAL/LATon XR CHEST 2V [...] changes. IMPRESSION: Stable exam without acute findings. Binding Stitcher: [facility] Transcribe Date/Time: May 28 2024 4:45P Dictated by : MISSY CASTANON MD This examination was interpreted and the report reviewed and electronically signed by: MISSY CASTANON MD on May 28 2024 4:46PM EST [id number] Normal [facility] XR Chest PA and Lateralon IMPRESSION: Stable exam without acute findings. Binding Stitcher: [facility] Transcribe Date/Time: May 28 2024 4:45P Dictated [...] degenerative changes. DIVISION OF RADIOLOGY Provider, Alec Bynum - 05/28/2024 * * *Final Report* * [...] IMPRESSION IMPRESSION: Stable exam without acute findings. Binding Stitcher: [facility] Transcribe Date/Time: May 28 2024 4:45P Dictated by : MISSY CASTANON MD This examination was interpreted and the report reviewed and electronically signed by: MISSY CASTANON MD on May 28 2024 4:46PM EST [facility] Radiology Study observation (narrative) [facility] XR Chest PA and LateralOrder ed By: [facility] Provider on 05-28-2024 [facility] XR Shoulder - right 2 Viewso n 05-27-2024 Radiology Study observation (narrative) [facility] CNOVon 05-13-2024 CNOV Office Visit (INTMWS ) ORION DUMONT ([id number]) 1950 M Vendor Date Time Provider Department 05/13/24 8:00 AM SHEA ETIENNE INTMWS During your visit today, we recorded the following information about you: Pulse Respiration Blood pressure Weight 94/minute 16/minute 110/62 110.9 kg Height 1.85 m Shae Etienne, PRE OWNED SALES MANAGER.INSIDE FINISHER 05/13/2024 9:00 AM Signed Orion Dumont is a 73 year old [...] PCP - General (Internal Medicine) Shea Etienne, BRAD.INSIDE FINISHER as Poll Clerk (Internal Medicine) Antonio Stahl, PAC - Urology. Quincy Mcpherson CNP- Psychiatry. Leonides Baker MD- [facility] LuisToya celeste MD- [facility]. Jerry Kellogg DO- Sports Medicine ([facility]) Matt Marie MD- [facility]. Ke Pantoja MD- [facility] provider. Pelon Nascimento MD- Ophthalmology [facility] Dermatology- Dr. Amin Medical/Family history review Reviewed [...] to dermatology, he is considering this now. CHF-[place] Shearer Operator: Dr. Baker, last visit 05/01 He [...] limiting daily activities or exercise. Treatment: none Shoemaking Cutter: none He has never smoked No recent [...] anxious. ASSESSMENT/NATHANIEL (more content not included)... Normal [facility] 25(OH)D3 [facility] 25-hydroxyvitamin D3 [Mass/Vol] 43.9 ng/mL Normal 31.0-80.0 [facility] Comment on above: Order Comment: Specphil ramirez Type: BLOOD SPECIMEN Ordering Facility: [facility] Address: [address] [place] [address] Result Comment: Clas sification of 25 OH Vitamin D status: Deficiency/Insufficiency: < or = 30 ng/ml. Sufficiency/Optimal Levels: 31-80 ng/mL Toxicity: > 100 ng/mL. Test performed by chemiluminescent immunoassay. Performed By: #### 1 989-3 #### [facility] CLIA [id number] [address] [place] [address] [place] CBC panel Auto (Bld)on 04-23 Erythrocyte distribution width (RBC) [Ratio] 13.5 % Normal 11.5-15.0 [facility] Comment on above: Order Comment: Denita ramirez Type: BLOOD SPECIMEN Ordering Facility: [facility] Address: [address] [place] [address] Performed By: #### 5 8410-2 #### [facility] CLIA [id number] [address] [place] [address] [place] Hematocrit (Bld) [Volume fraction] 39.1 % Normal 39.0-51.0 [facility] Comment on above: Order Comment: Denita ramirez Type: BLOOD SPECIMEN Ordering Facility: [facility] Address: [address] [place] [address] Performed By: #### 5 8410-2 #### [facility] CLIA [id number] [address] [id number], [place] [address] [place] Hemoglobin (Bld) [Mass/Vol] 12.9 g/dL Low 13.0-17.0 [facility] Comment on above: Order Comment: Speci men Type: BLOOD SPECIMEN Ordering Facility: [facility] Address: [address] [place] [address] Performed By: #### 5 8410-2 #### [facility] CLIA [id number] [address] [place] [address] [place] MCH (RBC) [Entitic mass] 30.9 pg Normal 26.0-34.0 [facility] Comment on above: Order Comment: Speci men Type: BLOOD SPECIMEN Ordering Facility: [facility] Address: [address] [place] [address] Performed By: #### 5 8410-2 #### [facility] CLIA [id number] [address] [place] [address] [place] MCHC (RBC) [Mass/Vol] 33.0 g/dL Normal 30.5-36.0 [facility] Comment on above: Order Comment: Speci men Type: BLOOD SPECIMEN Ordering Facility: [facility] Address: [address] [place] [address] Performed By: #### 5 8410-2 #### [facility] CLIA [id number] [address] [place] [address] [place] MCV (RBC) [Entitic vol] 93.8 fL Normal 80.0-100.0 [facility] Comment on above: Order Comment: Speci men Type: BLOOD SPECIMEN Ordering Facility: [facility] Address: [address] [place] [address] Performed By: #### 5 8410-2 #### [facility] CLIA [id number] [address] [place] [address] [place] Nucleated RBC (Bld) [#/Vol] 10*3/uL Normal <0.01 [facility] Comment on above: Order Comment: Speci men Type: BLOOD SPECIMEN Ordering Facility: [facility] Address: [address] [place] [address] Performed By: #### 5 8410-2 #### [facility] CLIA [id number] [address] [place] [address] [place] Platelet mean volume (Bld) [Entitic vol] 10.7 fL Normal 9.0-12.7 [facility] Comment on above: Order Comment: Speci men Type: BLOOD SPECIMEN Ordering Facility: [facility] Address: [address] [place] [address] Performed By: #### 5 8410-2 #### [facility] CLIA [id number] [address] [place] [address] [place] Platelets (Bld) [#/Vol] 206 10*3/uL Normal 150-400 [facility] Comment on above: Order Comment: Speci men Type: BLOOD SPECIMEN Ordering Facility: [facility] Address: [address] [place] [address] Performed By: #### 5 8410-2 #### [facility] CLIA [id number] [address] [place] [address] [place] RBC (Bld) [#/Vol] 4.17 10*6/uL Low 4.20-6.00 [facility] Comment on above: Order Comment: Speci men Type: BLOOD SPECIMEN Ordering Facility: [facility] Address: [address] [place] [address] Performed By: #### 5 8410-2 #### [facility] CLIA [id number] [address] [place] [address] [place] WBC (Bld) [#/Vol] 6.23 10*3/uL Normal 3.70-11.00 [facility] Comment on above: Order Comment: Speci men Type: BLOOD SPECIMEN Ordering Facility: [facility] Address: [address] [place] [address] Performed By: #### 5 8410-2 #### [facility] CLIA [id number] [address] [place] [place] [id number] [place] Comprehensive metabolic 2000 panelon 04-23-2024 Albumin [Mass/Vol] 4.2 g/dL Normal 3.9-4.9 [facility] Comment on above: Order Comment: Speci men Type: BLOOD SPECIMEN Ordering Facility: [facility] Address: [address] [place] [address] Performed By: #### 2 4323-8 #### [facility] CLIA [id number] [address] [place] [address] [place] ALP [Catalytic activity/Vol] 79 U/L Normal 38-113 [facility] Comment on above: Order Comment: Speci men Type: BLOOD SPECIMEN Ordering Facility: [facility] Address: [address] [place] [address] Performed By: #### 2 4323-8 #### [facility] CLIA [id number] [address] [place] [address] [place] ALT [Catalytic activity/Vol] 33 U/L Normal 10-54 [facility] Comment on above: Order Comment: Speci men Type: BLOOD SPECIMEN Ordering Facility: [facility] Address: [address] [place] [address] Performed By: #### 2 4323-8 #### [facility] CLIA [id number] [address] [place] [address] [place] Anion gap [Moles/Vol] 11 mmol/L Normal 8-15 [facility] Comment on above: Order Comment: Speci men Type: BLOOD SPECIMEN Ordering Facility: [facility] Address: [address] [place] [address] Performed By: #### 2 4323-8 #### [facility] CLIA [id number] [address] [place], [place] [id number] [place] AST [Catalytic activity/Vol] 35 U/L Normal 14-40 [facility] Comment on above: Order Comment: Speci men Type: BLOOD SPECIMEN Ordering Facility: [facility] Address: [address] [place] [address] Performed By: #### 2 4323-8 #### [facility] CLIA [id number] [address] [place] [address] [place] Bilirubin [Mass/Vol] 0.7 mg/dL Normal 0.2-1.3 [facility] Comment on above: Order Comment: Speci men Type: BLOOD SPECIMEN Ordering Facility: [facility] Address: [address] [place] [address] Performed By: #### 2 4323-8 #### [facility] CLIA [id number] [address] [place] [address] [place] Calcium [Mass/Vol] 9.4 mg/dL Normal 8.5-10.2 [facility] Comment on above: Order Comment: Speci men Type: BLOOD SPECIMEN Ordering Facility: [facility] Address: [address] [place] [address] Performed By: #### 2 4323-8 #### [facility] CLIA [id number] [address] [place] [address] [place] Chloride [Moles/Vol] 107 mmol/L Normal 98-107 [facility] Comment on above: Order Comment: Speci men Type: BLOOD SPECIMEN Ordering Facility: [facility] Address: [address] [place] [address] Performed By: #### 2 4323-8 #### [facility] CLIA [id number] [address] [place] [address] [place] CO2 [Moles/Vol] 25 mmol/L Normal 22-30 [facility] Comment on above: Order Comment: Speci men Type: BLOOD SPECIMEN Ordering Facility: [facility] Address: [address] [place] [address] Performed By: #### 2 4323-8 #### [facility] CLIA [id number] [facility] [place] [address] [place] Creatinine [Mass/Vol] 0.90 mg/dL Normal 0.73-1.22 [facility] Comment on above: Order Comment: Denita ramirez Type: BLOOD SPECIMEN Ordering Facility: [facility] Address: [address] [place] [address] Performed By: #### 2 4323-8 #### [facility] CLIA [id number] [address] [place] [address] [place] Creatinine and Glomerular filtration rate.predicted panel (S/P/Bld) 91 mL/min/1.73m??? Normal >=60 [facility] Comment on above: Order Comment: Denita ramirez Type: BLOOD SPECIMEN Ordering Facility: [facility] Address: [address] [place] [address] Result Comment: Elayne mated Glomerular Filtration Rate [...] GFR. Performed By: #### 2 4323-8 #### [facility] CLIA [id number] [address] [place] [address] [place] Glucose [Mass/Vol] 90 mg/dL Normal 74-99 [facility] Comment on above: Order Comment: Denita ramirez Type: BLOOD SPECIMEN Ordering Facility: [facility] Address: [address] [place] [address] Result Comment: The [place] Diabetes Association (ADA) provides guidance for cutoff [...] Standards of Medical Care in Diabetes 2016, [place] Diabetes Association. Diabetes Care. 2016.39(Suppl 1). Performed By: #### 2 4323-8 #### [facility] CLIA [id number] [address] [place] [address] [place] Potassium [Moles/Vol] 3.9 mmol/L Normal 3.7-5.1 [facility] Comment on above: Order Comment: Speci men Type: BLOOD SPECIMEN Ordering Facility: [facility] Address: [address] [place] [address] Performed By: #### 2 4323-8 #### [facility] CLIA [id number] [address] [place] [address] [place] Protein [Mass/Vol] 6.3 g/dL Normal 6.3-8.0 [facility] Comment on above: Order Comment: Speci men Type: BLOOD SPECIMEN Ordering Facility: [facility] Address: [address] [place] [address] Performed By: #### 2 4323-8 #### [facility] CLIA [id number] [address] [place] [address] [place] Sodium [Moles/Vol] 143 mmol/L Normal 136-144 [facility] Comment on above: Order Comment: Speci men Type: BLOOD SPECIMEN Ordering Facility: [facility] Address: [address] [place] [address] Performed By: #### 2 4323-8 #### [facility] CLIA [id number] [address] [place] [address] [place] Urea nitrogen [Mass/Vol] 10 mg/dL Normal 9-24 [facility] Comment on above: Order Comment: Speci men Type: BLOOD SPECIMEN Ordering Facility: [facility] Address: [address] [place] [address] Performed By: #### 2 4323-8 #### [facility] CLIA [id number] [address] [place] [address] OF [facility] HbA1c (Bld)on 04-23-2024 Average glucose Estimated from glycated hemoglobin (Bld) [Mass/Vol] 105 mg/dL Normal [facility] Comment on above: Order Comment: Mikeli men Type: BLOOD SPECIMEN Ordering Facility: [facility] Address: [address] [place] [address] Result Comment: eAG: (Estimated average glucose) is a calculated value from HgbA1c and is service support representative of the average blood glucose level in the last 2-3 month period. Performed By: #### 5 5454-3 #### [facility] [place] [id number] [address] [place] [address] STATES OF [facility] HbA1c (Bld) [Mass fraction] 5.3 % Normal 4.3-5.6 [facility] Comment on above: Order Comment: Denita ramirez Type: BLOOD SPECIMEN Ordering Facility: [facility] Address: [address] [place] [address] Result Comment: Amer ican Diabetes Association guidelines indicate that patients with HgbA1c in the range 5.7-6.4% are at increased risk for development of diabetes, and intervention by lifestyle modification may be beneficial. HgbA1c greater or equal to 6.5% is considered diagnostic of diabetes. Performed By: #### 5 5454-3 #### [facility] CLIA [id number] [address] [place] [address] [place] Lipid 1996 panelon 5 Cholesterol [Mass/Vol] 142 mg/dL Normal <200 [facility] Comment on above: Order Comment: Denita ramirez Type: BLOOD SPECIMENOrdering Facility: [facility] Address: [address] [place] [address] Result Comment: <200 mg/dL, Desirable 200-239 mg/dL, Borderline high >239 mg/dL, High Performed By: #### 2 4331-1 ####[facility] [id number] [address] [id number] [place] [address] [place] Cholesterol in HDL [Mass/Vol] 74 mg/dL Normal >39 [facility] Comment on above: Order Comment: Speci men Type: BLOOD SPECIMENOrdering Facility: [facility] Address: [address] [place] [address] Result Comment: 40-5 9 mg/dL, Acceptable >59 mg/dL, High: Negative risk factor for coronary heart disease <40 mg/dL, Low: Positive risk factor for coronary heart disease Performed By: #### 2 4331-1 ####[facility] [id number] [id number] [place] [address] [place] Cholesterol in LDL [Mass/Vol] 56 mg/dL Normal <100 [facility] Comment on above: Order Comment: Denita men Type: BLOOD SPECIMENOrdering Facility: [facility] Address: [address] [place] [address] Result Comment: <100 mg/dL, Optimal 100-129 mg/dL, Near optimal/above optimal 130-159 mg/dL, Borderline high 160-189 mg/dL, High >189 mg/dL, Very high Secondary prevention optimal LDL Cholesterol levels are recommended to be < 70 mg/dL Performed By: #### 2 4331-1 ####[facility] [id number] [address] [id number] [place] [address] [place] Cholesterol in LDL/Cholesterol in HDL [Mass ratio] 0.76 {ratio} Normal <2.54 [facility] Comment on above: Order Comment: Speci men Type: BLOOD SPECIMENOrdering Facility: [facility] Address: [address] [place] [address] Result Comment: Ashli hutton: 1. National Cholesterol Education Program ATP III Guideline At-A-Glance Quick Desk Reference: National Heart, Lung, and Blood [place]. National Institutes of Health. 2001: NIH Publication No. 01-3305. 2. An International Atherosclerosis Society position paper: global recommendations for the management of dyslipidemia: executive summary, Atherosclerosis. 2014: 232(2):410-413. Performed By: #### 2 4331-1 ####[facility] [id number] [place] [id number] [place] [address] OF [facility] Cholesterol in VLDL [Mass/Vol] 12 mg/dL Normal <30 [facility] Comment on above: Order Comment: Mikeli men Type: BLOOD SPECIMENOrdering Facility: [facility] Address: [address] [place] [address] Performed By: #### 2 4331-1 ####[facility] [id number] [address] [id number] [place] [address] [place] Cholesterol non HDL [Mass/Vol] 68 mg/dL Normal <130 [facility] Comment on above: Order Comment: Denita men Type: BLOOD SPECIMENOrdering Facility: [facility] Address: [address] [place] [address] Result Comment: <130 mg/dL, Optimal 130-159 mg/dL, Near optimal/above optimal 160-189 mg/dL, Borderline high 190-219 mg/dL, High >219 mg/dL, Very high Secondary prevention optimal non HDL Cholesterol levels are recommended to be <100 mg/dL Performed By: #### 2 4331-1 ####[facility] [id number] [address] [id number] [place] [address] [place] Cholesterol.total/Choles terol in HDL [Mass ratio] 1.92 {ratio} Normal <5.10 [facility] Comment on above: Order Comment: Speci men Type: BLOOD SPECIMENOrdering Facility: [facility] Address: [address] [place] [address] Performed By: #### 2 4331-1 ####[facility] [id number] [address] [id number] [place] [address] [place] FASTING TIME 12 hrs Normal [facility] Comment on above: Order Comment: Speci men Type: BLOOD SPECIMENOrdering Facility: [facility] Address: [address] [place] [address] Performed By: #### 2 4331-1 ####[facility] [id number] [address] [id number] [place] [address] [place] Triglyceride [Mass/Vol] 60 mg/dL Normal <150 [facility] Comment on above: Order Comment: Speci men Type: BLOOD SPECIMENOrdering Facility: [facility] Address: [address] [place], [place] [id number] Result Comment: <150 mg/dL, Normal 150-199 mg/dL, Borderline high 200-499 mg/dL, High >499 mg/dL, Very high Performed By: #### 2 4331-1 ####[facility] [id number] [address] [id number] [place] [id number] [place] XR Cervical spine 2 or 3 Vie wson 05-17-2023 [facility] XR Cervical spine 2 or 3 Vie wson 05-15-2023 Radiology Study observation (narrative) [facility] COLONOSCOPY SCREENINGon 02-08 [facility] UA DIP, URINE (POC)on 2022 BILIRUBIN UA (POCT) Negative Negative [facility] CLARITY UA (POCT) Slightly Cloudy Cl [facility] COLOR UA (POCT) Dark yellow [facility] GLUCOSE UA (POCT) Negative Negative mg/dL [facility] Hemoglobin Ql (U) Negative [facility] KETONE UA (POCT) Negative Negative mg/dL [facility] LEUKOCYTES UA (POCT) Negative Negative [facility] NITRITE UA (POCT) Negative Negative [facility] PH UA (POCT) 6.0 4.5 - 8.0 [facility] Protein Ql (U) Negative Negative mg/dL [facility] SPECIFIC GRAVITY UA (POCT) 1.020 1.005 - 1.030 [facility] UROBILINOGEN UA (POCT) 0.2 E.U./dL Elizabeth l E.U./dL [facility] Office Visiton 01-19-2023 Follow-up visit [id number] Orion Dumont 1950 M Date Provider Department Center 01/19/2023 [id number] SMITH [facility] [place] None No family history on file Level of Service:35121 [place] OFFICE/OUTPATIENT ESTABLISHED LOW MDM 20-29 MIN Reason for Visit and Comments: Follow-up [[id number]] - LEFT thumb carpometacarpal arthroplasty with partial excision trapezoid on 07/01/22 Normal [facility] [employer] [facility] Progress Noteon 01-19-2023 Progress Note [facility] [address] [place] [address] Dept: [phone] Dept 01/19/2023 Chief Complaint Patient presents with [...] triggering. IMAGING NONE ASSESSMENT (M19.032) Arthritis of miezyubb-qrmzzcybk-am apezoid joint of left hand (M18.12) Primary osteoarthritis of first carpometacarpal joint of left hand 1. Arthritis of dinvhbpg-emskotjku-di apezoid joint of left hand 2. Primary [...] Smith MD Hand and Upper Extremity Surgery [facility] Department of Orthopaedics and Sports Medicine 01/19/2023 at 9:39 AM (Please note that portions of this note may have been completed with a voice recognition program. Efforts were made to edit the dictations but occasionally words are mis-transcribed.) Normal [facility] XR Tibia and Fibula - right AP and Lateralon 12-14-2022 IMPRESSION: No acute osseous findings. Binding Stitcher: EVELYNE Transcribe Date/Time: Dec 14 2022 8:04A Dictated by : LYUDMILA SAUCEDO MD This examination was interpreted and the report reviewed and electronically signed by: LYUDMILA SAUCEDO MD on Dec 14 2022 8:05AM [facility] DIVISION OF RADIOLOGY * * *Final [...] no bony erosions. DIVISION OF RADIOLOGY Provider, [facility] - 12/14/2022 * * *Final Report* * [...] erosions. IMPRESSION IMPRESSION: No acute osseous findings. Binding Stitcher: PSCB Transcribe Date/Time: Dec 14 2022 8:04A Dictated by : LYUDMILA SAUCEDO MD This examination was interpreted and the report reviewed and electronically signed by: LYUDMILA SAUCEDO MD on Dec 14 2022 8:05AM EST [facility] XR Tibia and Fibula - right AP and LateralOrdered By: Ccf Provider on 12-14-2022 [facility] C-REACTIVE PROTEIN (CRP)on 0 12-10-2022 CRP [Mass/Vol] <0.9 mg/dL [facility] CBC panel Auto (Bld)on 12-10 Erythrocyte distribution width (RBC) [Ratio] 14.7 % 11.5 - 15.0 % [facility] Hematocrit (Bld) [Volume fraction] 44.2 % 39.0 - 51.0 % [facility] Hemoglobin (Bld) [Mass/Vol] 14.3 g/dL 13.0 - 17.0 g/dL [facility] MCH (RBC) [Entitic mass] 31.3 pg 26. 0 - 34.0 pg [facility] MCHC (RBC) [Mass/Vol] 32.4 g/dL 30.5 - 36.0 g/dL [facility] MCV (RBC) [Entitic vol] 96.7 fL 80.0 - 100.0 fL [facility] Nucleated RBC (Bld) [#/Vol] <0.01 k/uL [facility] Platelet mean volume (Bld) [Entitic vol] 11.8 fL 9.0 - 12.7 fL [facility] Platelets (Bld) [#/Vol] 219 10*3/uL 150 - 400 k/uL [facility] RBC (Bld) [#/Vol] 4.57 10*6/uL 4.20 - 6.0 0 m/uL [facility] WBC (Bld) [#/Vol] 7.47 10*3/uL 3.70 - 11. 00 k/uL [facility] Comprehensive metabolic 2000 panelon 12-10-2022 Albumin [Mass/Vol] 4.4 g/dL 3.9 - 4.9 g/dL [facility] ALP [Catalytic activity/Vol] 51 U/L 38 - 113 U/L [facility] ALT [Catalytic activity/Vol] 64 U/L High 10 - 54 U/L [facility] Anion gap [Moles/Vol] 9 mmol/L 9 - 18 mmol/L [facility] AST [Catalytic activity/Vol] 54 U/L High 14 - 40 U/L [facility] Bilirubin [Mass/Vol] 0.4 mg/dL 0.2 - 1 .3 mg/dL [facility] Calcium [Mass/Vol] 9.5 mg/dL 8.5 - 10. 2 mg/dL [facility] Chloride [Moles/Vol] 103 mmol/L 97 - 10 5 mmol/L [facility] CO2 [Moles/Vol] 25 mmol/L 22 - 30 mmol/L [facility] Creatinine [Mass/Vol] 1.17 mg/dL 0.73 - 1.22 mg/dL [facility] Estimated Glomerular Filtration Rate 67 mL/min/1.73m >=60 mL/min/1.73m [facility] Glucose [Mass/Vol] 123 mg/dL High 74 - 99 mg/dL [facility] Potassium [Moles/Vol] 5.1 mmol/L 3.7 - 5.1 mmol/L [facility] Protein [Mass/Vol] 6.2 g/dL Low 6.3 - 8.0 g/dL [facility] Sodium [Moles/Vol] 137 mmol/L 136 - 144 mmol/L [facility] Urea nitrogen [Mass/Vol] 20 mg/dL 9 - 24 mg/d L [facility] ESR Westergren method (Bld) [Velocity]on 12-10-2022 ESR (Bld) [Velocity] 2 mm/h 0 - 15 mm/hr Cl [facility] XR Tibia and Fibula - right AP and Lateralon 12-09-2022 Radiology Study observation (narrative) [facility] Progress Noteon 11-23-2022 Progress Note [facility] THERAPY AT [address] [address] Discharge Notification Patient Name: Orion [...] clinic for clarification. Rosa Jameson, OT Normal [facility] UA DIP, URINE (POC)on 2022 BILIRUBIN UA (POCT) Negative Negative [facility] CLARITY UA (POCT) Clear [facility] COLOR UA (POCT) Yellow [facility] GLUCOSE UA (POCT) Negative Negative mg/dL [facility] HEMOGLOBIN/BLOOD UA (POCT) Negative Negative [facility] KETONE UA (POCT) Negative Negative mg/dL [facility] LEUKOCYTES UA (POCT) Negative Negative [facility] NITRITE UA (POCT) Negative Negative [facility] PH UA (POCT) 5.5 4.5 - 8.0 [facility] Protein Ql (U) Negative Negative mg/dL [facility] SPECIFIC GRAVITY UA (POCT) 1.020 1.005 - 1.030 [facility] UROBILINOGEN UA (POCT) 0.2 E.U./dL Elizabeth l E.U./dL [facility] Office Visiton 10-27-2022 Follow-up visit [id number] Orion Dumont 1950 M Date Provider Department Center 10/27/2022 [id number] [place] None No family history on file Level of Service:83188 [place] OFFICE/OUTPATIENT ESTABLISHED LOW MDM 20-29 MIN (25) Reason for Visit and Comments: Follow-up [114865] - DOS 07/01/2022 LEFT thumb carpometacarpal arthroplasty with partial excision trapezoid Normal [facility] Progress Noteon 10-27-2022 Progress Note [facility] [address] [place] [address] Dept: [phone] Dept 10/27/2022 Chief Complaint Patient presents with Follow-up DOS 07/01/2022 LEFT thumb carpometacarpal arthroplasty with partial excision trapezoid HPI Orion returns today in follow-up regarding [...] of his hand. ASSESSMENT (M19.032) Arthritis of cancbwkf-klwegjcmr-oa apezoid joint of left hand (M18.12) Primary osteoarthritis of first carpometacarpal joint of left hand 1. Arthritis of vrjncnnw-siwgiguzn-jd apezoid joint of left hand 2. Primary [...] Smith MD Hand and Upper Extremity Surgery [facility] Department of Orthopaedics and Sports Medicine 10/27/2022 at 9:47 AM (Please note that portions of this note may have been completed with a voice recognition program. Efforts were made to edit the dictations but occasionally words are mis-transcribed.) Normal [facility] Progress Noteon 10-12-2022 Progress Note [facility] THERAPY AT [address] [place] [address] Dept: [phone] Dept OCCUPATIONAL THERAPY RE-EVALUATION Patient Name: Orion Dumont : 1950 Date of Service: 10/12/2022 Referring Provider: Berenice Hanks PA-C Diagnosis: Arthritis of clqclntm-jyyyzahms-yq apezoid joint of left hand Reason for referral/Mechanism of injury: s/p Left thumb carpometacarpal arthroplasty and intrinsic release, partial excision trapezoid, DOS 07/01/2022 Precautions/Red Flags: Yes UE weight bearing status: Non-weight bearing thru left hand post-surgical precautions: No CMC ROM until 6 weeks post op prosthesis/orthosis used: custom thumb spica splint Patient Preferences: Orion will transfer to [facility] due to proximity to home in [place] Subjective General Comments: Continues to report higher than expected pain in wrist /10, high pain in cervical spine, pain in thumb is sensitive with strengthening exercises Pain: Current: 2/10 Best: 2/10 Worst: 7/10 Current Level of Function: limited lifting, independent [...] WNL L HAND SENSORY TABLE LEFT Hand [place] [facility]u Thumb Index Long Ring Small r u r u r u r u r u 2.83 2.83 2.83 2.83 2.83 2.83 2.83 2.83 2.83 2.83 Median Ulnar Acrylic Fabricator Strength: Right Left Trial 1 60 lbs [...] hold treatment until follow-up with physician 10/27/22. Acrylic Fabricator and pinch improved over last assessment. Rehab [...] Time Entry: 13 Rosa Jameson OT Normal [facility] Progress Noteon 09-30-2022 Progress Note [facility] THERAPY AT [address] [place] [address] Dept: [phone] Dept OCCUPATIONAL THERAPY TREATMENT Patient Name: Orion Dumont : 1950 Date of Service: 09/30/2022 Referring Provider: Berenice Hanks PA-C Diagnosis: Arthritis of bhamychp-toexvhqzs-eg apezoid joint of left hand Reason for referral/Mechanism of injury: s/p Left thumb carpometacarpal arthroplasty and intrinsic release, partial excision trapezoid, DOS 07/01/2022 Patient Preferences: Orion will transfer to [facility] due to proximity to home in [place] Precautions/Red Flags: WBAT Subjective Pt reports he [...] Therapy Time Entry: 18 Mohinder Rodriguez OT [facility] Progress Noteon 09-21-2022 Progress Note [facility] [place] [address] [place] [address] Dept: [phone] Dept OCCUPATIONAL THERAPY TREATMENT Patient Name: Orion Dumont DOB: 1950 Date of Service: 09/21/2022 Referring Provider: Berenice Hanks PA-C Diagnosis: Arthritis of qdmzrlet-lipfgfhbo-ze apezoid joint of left hand Reason for referral/Mechanism of injury: s/p Left thumb carpometacarpal arthroplasty and intrinsic release, partial excision trapezoid, DOS 07/01/2022 Precautions/Red Flags: Yes UE weight bearing status: Non-weight bearing thru left hand post-surgical precautions: No CMC ROM until 6 weeks post op prosthesis/orthosis used: custom thumb spica splint Patient Preferences: Orion will transfer to [facility] due to proximity to home in [place] Subjective Thumb feels ok, motion is adequate, wrist pain at ulnar styloid 6/10 Compliance with HEP: Yes Objective Able to oppose to base of small finger following treatment Acrylic Fabricator Strength: Left Trial 1 32 lbs Pinch [...] Time Entry: 10 Rosa Jameson OT Normal [facility] Progress Noteon 09-14-2022 Progress Note [facility] THERAPY AT [address] [place] [address] Dept: [phone] Dept OCCUPATIONAL THERAPY TREATMENT Patient Name: Orion Dumont : 1950 Date of Service: 09/14/2022 Referring Provider: Berenice Hanks PA-C Diagnosis: Arthritis of sjbafwmd-oenlvamdu-uu apezoid joint of left hand Reason for referral/Mechanism of injury: s/p Left thumb carpometacarpal arthroplasty and intrinsic release, partial excision trapezoid, DOS 07/01/2022 Precautions/Red Flags: Yes UE weight bearing status: Non-weight bearing thru left hand post-surgical precautions: No CMC ROM until 6 weeks post op prosthesis/orthosis used: custom thumb spica splint Patient Preferences: Orion will transfer to [facility] due to proximity to home in [place] Subjective I feel like I've done too much, [...] Recorded: 09/14/22 Left Flexion 60 Extension 57 Acrylic Fabricator Strength: Right Left Trial 1 60 lbs [...] continued occupational therapy to reduce pain, 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 The rationale for today?s treatment was explained [...] Time Entry: 8 Rosa Jameson OT Normal [facility] Progress Noteon 09-07-2022 Progress Note [facility] THERAPY AT [facility] [address] [place] [address] Dept: [phone] Dept OCCUPATIONAL THERAPY RE-EVALUATION Patient Name: Orion Dumont : 1950 Date of Service: 09/07/2022 Referring Provider: Berenice Hanks PA-C Diagnosis: Arthritis of eyezqohg-bouuykxyr-np apezoid joint of left hand Reason for referral/Mechanism of injury: s/p Left thumb carpometacarpal arthroplasty and intrinsic release, partial excision trapezoid, DOS 07/01/2022 Precautions/Red Flags: Yes UE weight bearing status: Non-weight bearing thru left hand post-surgical precautions: No CMC ROM until 6 weeks post op prosthesis/orthosis used: custom thumb spica splint Patient Preferences: Orion will transfer to [facility] due to proximity to home in [place] Subjective General Comments: pain is improving, exercises with theraputty cause discomfort Pain: Current: 1/10 Best: 1/10 Worst: 6/10 Current Level of Function: improved functional integration, 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, 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, light meal prep, Patient?s Stated [...] Extension 62 Supination full Pronation full Strength: RUBBER ROLLER GRINDER & PINCH Acrylic Fabricator Strength: Right Left Trial 1 60 lbs [...] 4: Theraputty Activity 4 Comment: Yellow - operations engineer/pinch/extension/ pull Therapeutic Activity # of Activities: 1 Therapeutic Activity 1: Comfort Cool splint fitting, education Activity 1 Comment: review of precautions, wearing recommendation Time Entry Total Treatment Time Start Time: 0930 Stop Time: 1005 Time Calculation (min): 35 min OT Therapeutic Procedures Time Entry Therapeutic Exercise Time Entry: 25 Therapeutic Activity Time Entry: 10 Rosa Jameson [address] [facility] Progress Noteon 05-24-2023 Progress Note [facility] THERAPY AT [facility] [address] [place] [address] Dept: [phone] Dept OCCUPATIONAL THERAPY TREATMENT Patient Name: Orion Dumont : 1950 Date of Service: 08/31/2022 Referring Provider: Berenice Hanks PA-C Diagnosis: Arthritis of vmmmhryk-pwadwgrlr-jw apezoid joint of left hand Reason for referral/Mechanism of injury: s/p Left thumb carpometacarpal arthroplasty and intrinsic release, partial excision trapezoid, DOS 07/01/2022 Precautions/Red Flags: Yes UE weight bearing status: Non-weight bearing thru left hand post-surgical precautions: No CMC ROM until 6 weeks post op prosthesis/orthosis used: custom thumb spica splint Patient Preferences: Orion will transfer to [place] location due to proximity to home in [place] Subjective Has been sore through volar wrist. Compliance with HEP: Yes Objective RUBBER ROLLER GRINDER & PINCH Acrylic Fabricator Strength: Right Left Trial 1 60 lbs [...] 4: Theraputty Activity 4 Comment: Yellow - operations engineer/pinch/extension/ pull Therapeutic Activity Therapeutic Activity 1: In hand manipulation Activity 1 Comment: Small pegs - translation/rotation/ shift, moderate difficulty. Time Entry Total Treatment Time Start Time: 1300 Stop Time: 1330 Time Calculation (min): 30 min OT Therapeutic Procedures Time Entry Therapeutic Exercise Time Entry: 20 Therapeutic Activity Time Entry: 10 ROBERT Vidal Normal [facility] Progress Noteon 08-24-2022 Progress Note [facility] THERAPY AT [address] [place] [address] Dept: [phone] Dept OCCUPATIONAL THERAPY TREATMENT Patient Name: Orion Dumont : 1950 Date of Service: 08/24/2022 Referring Provider: Berenice Hanks PA-C Diagnosis: Arthritis of ypforwym-wjjoheotm-vq apezoid joint of left hand Reason for referral/Mechanism of injury: s/p Left thumb carpometacarpal arthroplasty and intrinsic release, partial excision trapezoid, DOS 07/01/2022 Precautions/Red Flags: Yes UE weight bearing status: Non-weight bearing thru left hand post-surgical precautions: No CMC ROM until 6 weeks post op prosthesis/orthosis used: custom thumb spica splint Patient Preferences: Orion will transfer to [facility] due to proximity to home in [place] Subjective Little more movement, little less pain, 3-4/10 worst pain; still using roll on pain reliever; 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 use 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; unable to cut watermelon,chop firm vegetables [...] Time Entry: 8 Rosa Jameson OT Normal [facility] Progress Noteon 08-17-2022 Progress Note [facility] THERAP[facility] AT [facility] [address] [place] [address] Dept: [phone] Dept OCCUPATIONAL THERAPY TREATMENT Patient Name: Orion Dumont : 1950 Date of Service: 08/17/2022 Referring Provider: Berenice Hanks PA-C Diagnosis: Arthritis of jfjftrab-fmfevjwze-yo apezoid joint of left hand Reason for referral/Mechanism of injury: s/p Left thumb carpometacarpal arthroplasty and intrinsic release, partial excision trapezoid, DOS 07/01/2022 Precautions/Red Flags: Yes UE weight bearing status: Non-weight bearing thru left hand post-surgical precautions: No CMC ROM until 6 weeks post op prosthesis/orthosis used: custom thumb spica splint Patient Preferences: Orion will transfer to [place] location due to proximity to home in [place] Subjective No new complaints, pain modestly improved, [...] Time Entry Total Treatment Time Start Time: 30 Stop Time: 1000 Time Calculation (min): 30 min OT Therapeutic Procedures Time Entry Therapeutic Exercise Time Entry: 18 Manual Therapy Time Entry: 6 Orthotic/Prosthetic Mgmt and/or Training (Subs Encounter) Time Entry: 5 Rosa Jameson [address] [facility] Office Visiton 08-11-2022 Follow-up visit [id number] Orion Dumont 1950 M Date Provider Department Center 08/11/2022 [id number] [place] None No family history on file Level of Service:91325 [place] POSTOP FOLLOW UP VISIT RELATED TO ORIGINAL PX Reason for Visit and Comments: Post-op [483] - DOS 07/01/2022- LEFT thumb carpometacarpal arthroplasty with partial excision trapezoid Normal [facility] Progress Noteon 08-11-2022 Progress Note [facility]TH[facility] & [facility]TS MEDICINE [address] [place] [address] Dept: [phone] Dept 08/11/2022 Chief Complaint Patient presents with [...] subsidence first metacarpal ASSESSMENT (M19.032) Arthritis of lzzpprkn-gutswbgiu-cv apezoid joint of left hand (M18.12) Osteoarthritis of carpometacarpal (CMC) joint of left thumb 1. Arthritis of aooudcmz-jpnovnmqk-ki apezoid joint of left hand 2. Osteoarthritis [...] Smith MD Hand and Upper Extremity Surgery [facility] Department of Orthopaedics and Sports Medicine 08/11/2022 at 9:36 AM (Please note that portions of this note may have been completed with a voice recognition program. Efforts were made to edit the dictations but occasionally words are mis-transcribed.) Normal [facility] Progress Noteon 08-10-2022 Progress Note [facility] THERAPY AT [facility] [address] [place] [address] Dept: [phone] Dept OCCUPATIONAL THERAPY TREATMENT Patient Name: Orion Dumont : 1950 Date of Service: 08/10/2022 Referring Provider: Berenice Hanks PA-C Diagnosis: Arthritis of rpphoprj-ownflkkvb-es apezoid joint of left hand Reason for referral/Mechanism of injury: s/p Left thumb carpometacarpal arthroplasty and intrinsic release, partial excision trapezoid, DOS 07/01/2022 Precautions/Red Flags: Yes UE weight bearing status: Non-weight bearing thru left hand post-surgical precautions: No CMC ROM until 6 weeks post op prosthesis/orthosis used: custom thumb spica splint Patient Preferences: Orion will transfer to [facility] due to proximity to home in [place] Subjective Pain remains high 6-10/17 Compliance with [...] Time Entry Total Treatment Time Start Time: 0830 Stop Time: 0900 Time Calculation (min): 30 min OT Modalities Time Entry Hot/Cold Pack Time Entry: 5 UV Treatment Time Entry: 6 OT Therapeutic Procedures Time Entry Therapeutic Exercise Time Entry: 18 Rosa Jameson OT Normal [facility] Progress Noteon 08-03-2022 Progress Note [facility] TH[facility] AT [address] [place] [address] Dept: [phone] Dept OCCUPATIONAL THERAPY RE-EVALUATION Patient Name: Orion Dumont : 1950 Date of Service: 08/03/2022 Referring Provider: Berenice Hanks PA-C Diagnosis: Arthritis of rsmyuiur-rsyqdvxdu-ng apezoid joint of left hand Reason for referral/Mechanism of injury: s/p Left thumb carpometacarpal arthroplasty and intrinsic release, partial excision trapezoid, DOS 07/01/2022 Precautions/Red Flags: Yes UE weight bearing status: Non-weight bearing thru left hand post-surgical precautions: No CMC ROM until 6 weeks post op prosthesis/orthosis used: custom thumb spica splint Patient Preferences: Orion will transfer to [facility] due to proximity to home in [place] Subjective General Comments: Pain is somewhat better [...] Therapy Time Entry: 8 Rosa Jameson OT [facility] 36on 07-28-2022 36 Pt called my direct line back, relayed message above. [facility] 36 I called the pharmac y to confirm all information today, spoke with pharmacist Soumya, she can fill the [place] that was prescribed on 07/18/2022 today. I left message for patient. Left thumb carpometacarpal arthroplasty and intrinsic release, partial excision trapezoid, DOS 07/01/[address] [facility] 36 Name of Caller: Mike guardado Contact Reason for call: Pt states that his pharmacy has not been able to get in [place] for several months and that Rx was [...] #[id number] - [place], [place] - [address] [facility]. AT [address] Office Name: Anabaptist Demario [facility] Progress Noteon 07-20-2022 Progress Note [facility] TH[facility] AT [place] [address] [place] [address] Dept: [phone] Dept OCCUPATIONAL THERAPY TREATMENT Patient Name: Orion Dumont : 1950 Date of Service: 07/20/2022 Referring Provider: Berenice Hanks PA-C Diagnosis: Arthritis of fyebsqsb-inevmmqya-ck apezoid joint of left hand Reason for referral/Mechanism of injury: s/p Left thumb carpometacarpal arthroplasty and intrinsic release, partial excision trapezoid, DOS 07/01/2022 Precautions/Red Flags: Yes UE weight bearing status: Non-weight bearing thru left hand post-surgical precautions: No CMC ROM until 6 weeks post op prosthesis/orthosis used: custom thumb spica splint Patient Preferences: Orion will transfer to [facility] due to proximity to home in [place] Subjective Pain remains hihg, 6/10 continues to take pain medication regularly Compliance [...] Therapy Time Entry: 10 Rosa Jameson OT [facility] 36on 07-18-2022 36 Spoke to pt to make aware. [facility] 36 [address] [facility] 36 Left thumb carpometacarpal arthroplasty and intrinsic release, partial excision trapezoid, DOS 07/01/2022 Please advise on refill, order pended [facility] 36 Name of caller: Mike guardado Contact phone number: [phone] Relationship to Patient: patient Provider: Berenice Hanks Practice: Ortho Chief Complaint/Reason for Call: Patient is requesting a refill of his HYDROcodone-acetamino phen ([place]) 5-325 MG tablet It needs sent to [facility] in patient chart. He had sx on 07/01/22 Best time of day caller can be reached: any Patient advised that office/PCP has 24-48 business hours to return their call: No Normal [facility] Office Visiton 07-11-2022 Follow-up visit [id number] Orion Dumont 1950 M Date Provider Department Center 07/11/2022 [id number] None No family history on file Level of Service:00738 [place] POSTOP FOLLOW UP VISIT RELATED TO ORIGINAL PX Reason for Visit and Comments: Post-op [483] - DOS 07/01/2022- Left thumb carpometacarpal arthroplasty and intrinsic release, partial excision trapezoid Normal [facility] PATINSon 07-11-2022 PATINS Thumb CMC Arthroplasty - [...] strengthening Initiate home strengthening program Splint time 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 inspector when not strengthening Week 10 Consider Comfort [...] Progress to full use as tolerated Normal [facility] Progress Noteon 07-11-2022 Progress Note [facility] THERAPY AT [address] [facility] [address] Dept: [phone] Dept OCCUPATIONAL THERAPY EVALUATION Patient Name: Orion Dumont : 1950 Date of Service: 07/11/2022 Referring Provider: Berenice Hanks PAReenaC Diagnosis: Arthritis of vdruafaf-cbzpztnmc-ub apezoid joint of left hand General Information Reason for referral/Mechanism of injury: s/p Left thumb carpometacarpal arthroplasty and intrinsic release, partial excision trapezoid, DOS 07/01/2022 Precautions/Red Flags: Yes UE weight bearing status: Non-weight bearing thru left hand post-surgical precautions: No CMC ROM until 6 weeks post op prosthesis/orthosis used: custom thumb spica splint Patient Preferences: Orion will transfer to [facility] due to proximity to home in [place] Fall Risk: No Work status: retired Home [...] and agr (more content not included)... Normal [facility] Progress Note Subjective: Orion is approximately 10 [...] level Assessment Diagnosis Plan 1. Arthritis of mrqryrwy-vdoghqrvw-mx apezoid joint of left hand Plan I [...] concerns or questions regarding DME. Applied by: [facility] Berenice Hanks PA-C to Dr. Toya Smith [...] Gentle thumb strengt (more content not included)... [facility] 36on 07-05-2022 36 I left another voicemail and asked patient to call with any questions or concerns [facility] 36on 07-04-2022 36 LVM to discuss current symptoms [facility] 36on 07-01-2022 36 S: Patient [...] 9/10. R: Instructed pt to go to [facility] ER for the severe pain (as directed on PP). Pt understood and unsure if he will go to ER. Reason for Disposition Sounds like a serious complication to the triager Answer Assessment - Initial Assessment Questions 1. SYMPTOM: What's the main symptom you're concerned about? (e.g., pain, fever, vomiting) [place] and tylenol from shoulder to elbow-left. Surgery [...] *No Answer* Protocols used: Post-Op Symptoms and [facility] New rx signed. [facility] 36 Please cancel previous script and sign new script. [facility] 36 Name of Caller: Mike guadrado Contact Reason for call: pt stated several pharmacies are out of his Rx for HYDROcodone-acetamino phen ([place]) 5-325 MG tablet [facility] [address] [place] [address] ROAD [phone] Pt called that pharmacy and they do have it. DOS today Office Name: [facility] Nursing Noteon 07-01-2022 Nursing Note Pain increasing. Medication provided. Aware that he can take norco at 800 pm if needed for pain. Aware to restart Eliquis tomorrow. Discharge instructions reviewed with patient and sister. Ambulates to restroom. Assisted with getting dressed. States ready to go home [facility] Nursing Note Sister Cyndee brought to bedside. [facility] Nursing Note Received pt from OR sleeping arouses easily to name and follows commands. Report received and assessment completed. Belongings with pt. Afib noted and has history. [facility] Op Noteon 07-01-2022 Op Note [facility] OR [address] [facility] [address] Dept: [phone] Loc: [phone] Operative Report Patient Name: Orion Dumont Date of : 1950 Date of Surgery: 07/01/22 Location: [facility] Preoperative Diagnosis: Left Upper Extremity Thumb carpometacarpal arthritis STT arthritis Thumb intrinsic contracture Postoperative Diagnosis: Same Procedure: Left Upper Extremity Thumb CMC arthroplasty Partial excision trapezoid Thumb intrinsic release Surgeon: Toya Smith MD 1st Assist: Shital Salguero MD 2nd Assist: Berenice Hanks PA-C Implants: Arthrex FiberTak SutureTape [place] Specimens Removed: None Anesthesia: MAC and Regional [...] patient's ASA was verified by the nurse sales engineering manager and the anesthesia staff. Fire risk was [...] directly b (more content not included)... Normal [facility] PREPROCINSon 06-24-2022 PREPROCINS Medication List Accurate as [...] 600-800 MG-UNIT chewable tablet cholecalciferol 50 MCG (2000 UT) tablet Commonly known as: Vitamin D-3 digoxin 250 MCG tab;et Commonly known as: Lanoxin Eliquis 5 MG tablet Generic drug: apixaban fludrocortisone 0.1 MG tablet Commonly known as: Florinef HYDROcodone-acetamino phen 5-325 MG tablet Commonly known as: [place] lamoTRIgine 100 MG tablet Commonly known as: [...] have for your surgeon and or anesthesiologist [facility] 06-07-2022 36 Cardiac Clearance received, Dr Baker did not address Eliquis, Called office. Per Dr Baker patient will hold Eliquis only day of surgery. Custom Splint appt changed from 06-08-2022 to follow IPO 07-11-2022. Left message informing patient. [facility] 3605-31-2022 36 PAT and custom splin t Orders Signed. Patient is on Eliquis and will need to contact the prescriber for management for the surgery. [facility] 3605-26-2022 36 Please enter PAT and custom splint orders [id number] @ 1230 @ Song Consent-LEFT thumb carpometacarpal arthroplasty with partial excision trapezoid-[id number] Dx-M19.032-Left llabddpr-kquauprir-ym apezoid joint Arthritis Anesthesia-Mac with Regional [id number] @ [facility] @ [facility] Case-[id number] Cardiac Clearance request sent to Dr Baker Tohtc-[phone], No Auth required for in network providers. Reference number-[id number] [facility] 36 ----- Message from Toya Smith MD sent at 05/26/2022 9:01 AM EST ----- LUIS SURGERY SCHEDULING SLIP Patient: Orion Dumont Date of : 1950 Date of Surgery: Next available Day of Surgery: Monday Hospital: [facility] Duration: 60min Type: Outpatient PAT: Yes Med Clearance: No Anesthesia: MAC Block: Regional Position: Supine Table: Regular OR table Arm Board: Suspended arm board WITHOUT leg Radiology: Small C-Arm CPT Code: Consent: LEFT thumb carpometacarpal arthroplasty with partial excision trapezoid FollowUp: Oliver in 10-14 days XRays: Yes OT Splint needed at first PO appointment: Yes - Forearm BASED THUMB OPPONENS SPLINT Special Requests Hand tray [place] Arthrex FiberTak anchors Osteotomes Normal [facility] Office Visiton 05-26-2022 Follow-up visit [id number] Orion Dumont 1950 M Date Provider Department Center 05/26/2022 65133-BNWHMTOYA SMITH [facility] [place] None No family history on file Level of Service:59174 [place] OFFICE/OUTPATIENT ESTABLISHED MOD MDM 30-39 MIN Reason for Visit and Comments: Follow-up [439072] - Left wrist pain Normal [facility] Progress Noteon 05-26-2022 Progress Note [facility] [address] [place] [address] Dept: [phone] Dept 05/26/2022 Chief Complaint Patient presents with [...] None PROCEDURE none ASSESSMENT (M19.032) Arthritis of rbsylicr-qggduyylh-mf apezoid joint of left hand 1. Arthritis of prebmerp-zooszbbdq-ly apezoid joint of left hand PLAN Orion has advanced STT arthritis and moderate CMC [...] Dumont regarding the natural history, etiology, and senior care consequences of his condition. We discussed both [...] Follow-up: Orion will followup with my physician assistant real estate manager Jaqueline Boyd PA-C post operatively. He knows to call the office with any questions or concerns in the interim. Future Imaging: NONE Toya Smith MD Hand and Upper Extremity Surgery [facility] Department of Orthopaedics and Sports Medicine 05/26/2022 at 9:00 AM (Please note that portions of this note may have been completed with a voice recognition program. Efforts were made to edit the dictations but occasionally words are mis-transcribed.) [facility] 36on 05-19-2022 36 Appt scheduled [facility] 36 I can see back in office to discuss possible surgery [facility] 36on 05-18-2022 36 ultrasound guided injection of left STT joint with Dr Lobato 05-04-2022. [facility] 36 Name of Caller: Mike guardado Contact Reason for call: pt stated the injection did not help at all and he was asking if the next step would be sx. Advised it had only been 2wks and not the suggested 4, but he said the pain and weakness is too much to deal with. Office Name: Dr Smith-Ortho [facility] Office Visiton 05-04-2022 Follow-up visit [id number] Orion Dumont 1950 M Date Provider Department Center 05/04/2022 31180-JAYEPHIL LOBATO [facility] None No family history on file Level of Service:98247 [place] OFFICE/OUTPT VISIT,PROCEDURE ONLY Reason for Visit and Comments: Injections [186] - Usg lt wrist injection [facility] Progress Noteon 05-04-2022 Progress Note [facility] [address] [place] [address] Dept: [phone] Dept Chief Complaint Patient presents with Injections [...] I personally reviewed external notes from: Dr. Luis Gallo No results found for: HGBA1C No results [...] HEP. - Send Dr. Smith's office a TransEngen message in 4 weeks with an update. Follow up if symptoms worsen or fail to improve. Phil Lobato MD 05/04/2022 9:00 AM Please note that portions of this note may have been completed with voice recognition software. Documentation reviewed prior to signing but minor errors in it architect may have occurred. Normal [facility] Office Visiton 04-28-2022 Follow-up visit [id number] Orion Dumont 1950 M Date Provider Department Center 04/28/2022 38180-PAWKRTOYA SMITH [facility] [place] None No family history on file Level of Service:16033 [place] OFFICE/OUTPATIENT NEW LOW [facility] 30-44 MINUTES Reason for Visit and Comments: New Patient [542] - Left wrist pain Normal [facility] Progress Noteon 04-28-2022 Progress Note [facility] [place] [address] [place] [address] [place] [address] Dept: [phone] Dept 04/28/2022 Chief Complaint Patient presents with [...] fludrocortisone (Florinef) 0.1 MG tablet HYDROcodone-acetamino phen ([place]) 5-325 MG tablet lamoTRIgine (LaMICtal) 100 MG [...] 02/04/22 PROCEDURE none ASSESSMENT 1. Arthritis of okpytmhy-qyfofylcv-la apezoid joint of left hand PLAN I [...] Smith MD Hand and Upper Extremity Surgery [facility] Department of Orthopaedics and Sports Medicine 04/28/2022 at 10:17 AM (Please note that portions of this note may have been completed with a voice recognition program. Efforts were made to edit the dictations but occasionally words are mis-transcribed.) Normal [facility] MRI UP EXT ANY JOINT WO CON RTon 02-11-2022 MRI UP EXT ANY JOINT WO CON RT STUDY: MRI of the right shoulder without IV contrast; 02/11/2022 11:30 am INDICATION: RT SHOULDER PAIN. COMPARISON: None ACCESSION NUMBER(S): [id number] ORDERING CLINICIAN: Rubio Pantoja TECHNIQUE: MR imaging [...] Moderate acromioclavicular and mild glenohumeral arthrosis. Normal [facility] MRI WRIST W/O CONTRAST LEFTo n 02-04-2022 [...] 02/04/2022 5:40:41 PM Ordering Provider: MATT MARIE [facility] ([place]) Absolute lymphocyte counton 06-30-2021 Lymphocytes Auto (Unsp spec) [#/Vol] 1.53 10*3/uL 0.83-4.51 [facility] Work Phone: Amorphous sediment detection in urine sediment by light microscopyon 06-30-2021 Amorphous sediment LM Ql (Urine sed) 1+ [facility] Work Phone: Basophil percentageon 2021 Basophil percentage 0 SEEN /hpf [facility] Work Phone: Basophils/100 WBC (Bld) 0.4 % 0-1 [facility] Work Phone: Bilirubin [Mass/Vol] 0.60 mg/dL 0.20-1.00 [facility] Work Phone: Comment on above: For patients on eltr ombopag therapy, use of Dimension [place] TBIL is not recommended. Chloride [Moles/Vol] 111 mmol/L 98-107 [facility] Work Phone: Eosinophils/100 WBC (Bld) 2.4 % 0-5 [facility] Work Phone: Glucose [Mass/Vol] 99 mg/dL 74-106 [facility] Work Phone: [phone] Neutrophils (Bld) [#/Vol] 3.4 10*3/uL 2.0-7.7 [facility] Work Phone: Neutrophils/100 WBC (Bld) 62.6 % 47-70 [facility] Work Phone: Potassium [Moles/Vol] 4.3 mmol/L 3.5-5.[address] [facility] Work Phone: Protein [Mass/Vol] 5.5 g/dL 6.4-8.2 [facility] Work Phone: [phone] Sodium [Moles/Vol] 142 mmol/L 136-145 [facility] Work Phone: WBC (Bld) [#/Vol] 5.4 10*3/uL 4.4-11.0 [facility] Work Phone: Bilirubin Test strip Ql (U)o n 06-30-2021 Bilirubin Ql (U) Negative Negative [facility] Work Phone: Blood erythrocytes count (nu mber/volume)on 06-30-2021 RBC (Bld) [#/Vol] 4.14 10*6/uL 4.6-6.2 [facility] Work Phone: Blood hemoglobin measurement (mass/volume)on 06-30-2021 Hemoglobin (Bld) [Mass/Vol] 13.0 g/dL 13.0-16.5 [facility] Work Phone: Blood lymphocytes/100 leukoc yteson 06-30-2021 Lymphocytes/100 WBC (Bld) 28.3 % 19-41 [facility] Work Phone: Blood monocytes/100 leukocyt eson 06-30-2021 Monocytes/100 WBC (Bld) 5.9 % 0-10 [facility] Work Phone: Blood platelet mean volumeon 06-30-2021 Platelet mean volume (Bld) [Entitic vol] 10.9 fL 6.2-12.0 [facility] Work Phone: Determination of erythrocyte mean corpuscular volume (MCV)on 06-30-2021 MCV (RBC) [Entitic vol] 91.1 fL 80-94 [facility] Work Phone: Hematocrit Auto (Bld) [Volum e fraction]on 06-30-2021 Hematocrit (Bld) [Volume fraction] 37.7 % 40-54 [facility] Work Phone: Hyaline casts LM.LPF (Urine sed) [#/Area]on 06-30-2021 Hyaline casts (Urine sed) [#/Area] 10 /[LPF] [facility] Work Phone: Ketones Test strip Ql (U)on 06-30-2021 Ketones Ql (U) Negative Negative [facility] Work Phone: Laboratory - Chemistry and C hemistry - challengeon 06-30-2021 ALP [Catalytic activity/Vol] 48 U/L 45-117 [facility] Work Phone: ALT [Catalytic activity/Vol] 47 U/L 16-61 [facility] Work Phone: CO2 [Moles/Vol] 27.0 mmol/L 21.0-32.0 [facility] Work Phone: Globulin (S) [Mass/Vol] 2.4 g/dL 2.2-4.2 [facility] Work Phone: Urea nitrogen/Creatinine [Mass ratio] 20.8 mg/mg 10-20 [facility] Work Phone: Laboratory - Hematology and Cell countson 06-30-2021 Erythrocyte distribution width (RBC) [Entitic vol] 45.4 fL 35.1-43.9 [facility] Work Phone: Erythrocyte distribution width (RBC) [Ratio] 13.5 % 11.6-14.6 [facility] Work Phone: Immature granulocytes/100 WBC (Bld) 0.400 % 0.0-0.9 [facility] Work Phone: Comment on above: IG% - Immature Granu locytes (promyelocytes, myelocytes and metamyelocytes) > 1% indicates that a LEFT SHIFT is Present. MCH (RBC) [Entitic mass] 31.4 pg 27.0-32.0 [facility] Work Phone: Nucleated RBC/100 WBC (Bld) [Ratio] 0 % 0-5 [facility] Work Phone: MCHC Auto (RBC) [Mass/Vol]on 06-30-2021 MCHC (RBC) [Mass/Vol] 34.5 g/dL 32-36 [facility] Work Phone: Mucus LM Ql (Urine sed)on Mucus Ql (Urine sed) 0 SEEN /hpf [facility] Work Phone: Nitrite Test strip Ql (U)on 06-30-2021 Nitrite Ql (U) Negative Negative [facility] Work Phone: No Panel Informationon 06-30 Estimated Creatinine Clearance Calc 79.11 ml/min [facility] Work Phone: Estimated GFR (MDRD) Amer 94 mL/min >60 [facility] Work Phone: Comment on above: GFR Calc Estimated GFR (MDRD) Non-Af Amer 78 mL/min >60 [facility] Work Phone: Comment on above: Non- GFR Calc Troponin I High Sensitivity 8 pg/mL 3.0-78.0 [facility] Work Phone: Comment on above: Please Note: New Anna t Units and Gender Specific Reference Ranges. For more information see Policy Stat Procedure [place] High Sensitivity Troponin (TNIH) and attachments. Platelets bldon 06-30-2021 Platelets (Bld) [#/Vol] 202 10*3/uL 150-450 [facility] Work Phone: Protein Test strip Ql (U)on 06-30-2021 Protein Ql (U) Negative Negative [facility] Work Phone: Serum or plasma albumin tierra urement (mass/volume)on 06-30-2021 Albumin [Mass/Vol] 3.1 g/dL 3.2-5.0 [facility] Work Phone: Serum or plasma albumin/glob ulin mass ratioon 06-30-2021 Albumin/Globulin [Mass ratio] 1.3 {ratio} 0.9-2.4 [facility] Work Phone: Serum or plasma calcium tierra urement (mass/volume)on 06-30-2021 Calcium [Mass/Vol] 8.7 mg/dL 8.5-10.1 [facility] Work Phone: Serum or plasma creatinine m easurement (mass/volume)on 06-30-2021 Creatinine [Mass/Vol] 1.01 mg/dL 0.70-1.30 [facility] Work Phone: Comment on above: The validity of the calculated GFR & GFRAA in patients over 70 years has not been determined. Clinical correlation is essential. Serum or plasma urea nitroge n measurement (mass/volume)on 06-30-2021 Urea nitrogen [Mass/Vol] 21 mg/dL 7-18 [facility] Work Phone: Squamous epithelial cells de tection in urine sediment by light microscopyon 06-30-2021 Epithelial cells.squamous LM Ql (Urine sed) 0 SEEN /hpf [facility] Work Phone: Thin prep Papanicolaou smear with manual screeningon 06-30-2021 Thin prep Papanicolaou smear with manual screening 27 U/L 15-37 [facility] Work Phone: Thin prep Papanicolaou smear with manual screening 4 5-15 [facility] Work Phone: Urine blood detectionon 06-09 RBC Ql (U) Negative Negative [facility] Work Phone: RBC Ql (U) 0 SEEN /hpf [facility] Work Phone: Urine clarityon 06-30-2021 Clarity (U) Clear Clear [facility] Work Phone: Urine color determinationon 06-30-2021 Color (U) Yellow Yellow [facility] Work Phone: Urine glucose detectionon Glucose Ql (U) Normal mg/dl Normal [facility] Work Phone: Urine leukocyte esterase det ection by dipstickon 06-30-2021 Leukocyte esterase Test strip Ql (U) Negative Negative [facility] Work Phone: Urine pHon 06-30-2021 pH (U) 6.0 [pH] [facility] Work Phone: Urine sediment bacteria coun t by microscopy (number/high power field)on 06-30-2021 Bacteria LM.HPF (Urine sed) [#/Area] RARE /hpf None Seen [facility] Work Phone: Urine specific gravity measu rementon 06-30-2021 Specific gravity (U) [Rel density] 1.020 [facility] Work Phone: Urobilinogen Auto test strip Ql (U)on 06-30-2021 Urobilinogen Ql (U) Normal mg/dl Normal [facility] Work Phone: Basophil percentageon 2020 Creatinine [Mass/Vol] 0.8 mg/dL 0.70-1.30 [facility] Work Phone: No Panel Informationon 03-12 Bedside Estimated GFR (eGFR) > 60.0000 mL/min >60 [facility] Work Phone: ANES POSTPROC EVALon 021 ANES POSTPROC EVAL HNO ID: [id number] Author: Laura Willams Service: ? Author Type: Physician Type: Anesthesia Postprocedure Evaluation Filed: 04/20/2020 1:28 PM Note Text: POST ANESTHESIA EVALUATION NOTE : 1950 Procedure Summary Date: 04/20/20 Room / [facility] Anesthesia Start: 1207 Anesthesia Stop: 1311 [...] April 20, 2020 TIME: 1:27 PM CSN: [id number] [facility] ANES PRE-OPon 04-20-2020 ANES PRE-OP HNO ID: [id number] Author: Laura Willams Service: ? Author Type: [...] twice daily as needed for Constipation. - Nvbre2-ZiqO5-K40-E-FA -Fish Oil [phone] wj-ut-ucw-mcg cap Take 600 mg by mouth twice [...] April 20, 2020 TIME: 11:17 AM CSN: [id number] Normal [facility] HISTORY PHYSICALon HISTORY PHYSICAL HNO ID: [id number] Author: Raghu Rodriguez Service: General Surgery Author [...] is significant for atrial fibrillation, heart failure, post-CO syndrome, MSSA infection, DVT and PE, hypertension, [...] ? - PAST SURGICAL HISTORY OF ? 1966 ? left hip pin - PAST SURGICAL [...] twice daily as needed for Constipation. - Bmnwy3-IjzU1-C10-E-FA -Fish Oil [phone] rp-cv-vnt-mcg cap Take 600 mg by mouth twice [...] patient was offered a surgery/procedure at a [facility] facility. I have counseled the patient regarding [...] breath ? ? Khadar Patel PA-C Normal [facility] SURGICAL PATHOLOGYon 021 SURGICAL PATHOLOGY Specimen originated from [facility] Specimen #: [id number] Submitting Physician: Raghu Rodriguez M.D. FINAL DIAGNOSIS 1. Distal esophagus, biopsy (A) - Squamous mucosa with no diagnostic alteration.. 2. Gastric pouch, biopsy (B) - Small intestinal mucosa with no diagnostic alteration. 3. Transverse colon, polyp, biopsy (C) - Colonic mucosa with lymphoid aggregate (deeper levels examined). /nena 04/21/2020 aFrhan Oliveira MD, Ph.D. (Electronic Signature) ____ SPECIMEN [...] in one cassette. Gross examination performed at [facility], [address] [place] [address] 04/20/2020 8:10:35 PM Date of Report: 04/23/2020 Date of Procedure: 04/20/2020 Date of Receipt: 04/20/2020 Submitted by: Raghu Rodriguez M.D. Location: [facility] Diagnostic interpretation performed at [place] [address]. [place] Number: [id number] [facility] 04-06-2020 [facility] Telephone (PAT) ORION DUMONT ([id number]) 1950 M Vendor Date Time Provider Department 04/06/20 JOSE M MORAN (RN) [facility] During your visit today, we recorded the following information about you: Jose M Moran RN, RN 04/06/2020 2:32 PM Signed Called and spoke to Mr Dumont and per Dr Rodriguez he does not need to stop the Eliquis for the procedure on 04/20/2019 Patient was seen by cardiology and Pulmonary prior to procedure Jose M RAMOSN RN Allergies As of Date: 04/06/2020 Noted [...] Take 1 capsule by mouth twice* OMEGA [id number]-[id number]-WY-HZHI OIL * Take 600 mg by mouth [...] More... Ingrown toenail [L60.0] 02/03/2013 NO SHOW [699793] 05/03/2013 Retinal detachment [H33.20] 09/03/2013 Shoulder pain [...] Visit for monitoring Tikosyn therapy [Z51.81, Z*01/30/2015 superintendent terminal current use of anticoagulant [Z79.01] 02/09/2015 More... [...] Status:Closed by JOSE M MORAN on 04/06/20 [facility] HOSPon 04-06-2020 HOSP Patient:Mike Dumont MRN: Height:6' [...] mg-unit tab docusate sodium 100 mg capsule Ofpsk8-OrxH9-J68-E-FA -Fish Oil [id number] jc-qx-axp-mcg cap buPROPion SR (WELLBUTRIN SR) 150 mg [...] veins [I83.90] Anticoagulation management encounter [Z51.81, Z79.01] shelter (current) use of anticoagulants [Z79.01] Lattice degeneration [...] (HCC) [I48.91] Ingrown toenail [L60.0] NO SHOW [326879] Retinal detachment [H33.20] Shoulder pain [M25.519] Epiretinal [...] Visit for monitoring Tikosyn therapy [Z51.81, Z79.899] shelter current use of anticoagulant [Z79.01] On bridging [...] M Moran BSN RN Progress Notes ([facility]): Misti Martin Ma 03/26/2020 10:09 AM Signed Orion presents today for Routine visit.. Medication Refills needed today: No Pharmacy has been captured? Yes, please escript. Misti Baker MD 03/26/2020 11:22 AM Signed Orion Bianca Dumont is a 69 year old who [...] twice daily as needed for Constipation. - Vxvma1-CkgS0-X65-E-FA -Fish Oil [id number] zf-cz-hvp-mcg cap Take 600 mg by mouth twice [...] 57.0 CARDIAC TESTING: Echocardiography Report: Transthoracic Echo [facility] Date of service: 01/22/2019 8:35:29 AM Ordering physician: MELINDA DILLARD Indication: Shortness of Breath ? Technologist: Kassie Hernandez [facility],Student Interpreting physician: Smith Smith MD ? PATIENT: [...] atrial cavity is dilated. ? MITRAL VALVE Ute mitral valve. There is no mitral stenosis. There is trace mitral valve regurgitation. ? TRICUSPID VALVE Ute tricuspid valve. There is no tricuspid stenosis. [...] or gallop. No parasternal heave or thrill. [place] not displaced. CHEST: Chest clear to auscultation. [...] gives him relief. He has the pain /. 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 We will be happy to see him on a more intermittent basis given his transportation difficulties, or whenever he wishes. No change in his medications as listed today. Leonides Baker MD Previous Version Normal [facility] HISTORY PHYSICALon 0 HISTORY PHYSICAL HNO ID: [id number] Author: Lamberto Sepulveda Service: ? Author Type: [...] with explicit agreement by patient or patient service support representative before surgery. SIGNATURE: Lamberto Sepulveda MD DATE: June 24, 2019 TIME: 12:03 PM [facility] NURSING PROGon 06-24-2019 NURSING PROG HNO ID: [id number] Author: Kerry ColeRn) BARRY Antonio Service: ? Author Type: Registered Nurse Type: Nursing Progress Note Filed: 06/24/2019 12:59 PM Note Text: Nursing Progress Note Patient Name: Orion Dumont Patient Location: DICK PAIN POOL/DICK PAIN POOL Daily Note: Equal strength in lower bilateral extremities with +2 DP/PT pulses This note was completed by: Kerry Antonio RN [facility] NURSING PROG HNO ID: [id number] Author: Kerry Antonio RN Service: ? Author Type: Registered Nurse Type: Nursing Progress Note Filed: 06/24/2019 12:23 PM Note Text: Nursing Progress Note Patient Name: Orion Dumont Patient Location: DICK PAIN POOL/DICK PAIN POOL Daily Note: Equal strength in lower extremities with push/pulls and + 2 DP/PT pulses This note was completed by: Kerry Antonio RN [facility] OPERATIVE NOon 06-24-2019 OPERATIVE NO HNO ID: [id number] Author: Lamberto Sepulveda Service: ? Author Type: Physician Type: Operative Report Filed: 06/24/2019 12:45 PM Note Text: OPERATIVE/PROCEDURE REPORT LOG ID: [id number] Surgery/Procedure Date: 06/24/2019 Surgeon: Lamberto Sepulveda MD Car Scrubber: Joseph Raza DO Procedure(s):Operatio n: right Intra-articular [...] Supine position on the fluoroscopic table in [facility] procedure room, the patient's right anterior groin [...] criterion met. Lamberto Sepulveda MD Staff Physician [facility] SIGNATURE: Lamberto Sepulveda MD PATIENT NAME: Orion Dumont DATE: June 24, 2019 TIME: 12:43 PM PAGER/CONTACT #: [facility] PT EDon 06-24-2019 PT ED HNO ID: [id number] Author: Kerry ColeRn) BARRY Antonio Service: ? Author Type: Registered Nurse [...] Electronically Signed By: Kerry Antonio RN [facility] PT ED HNO ID: [id number] Author: Kerry Valdez (Rn) BARRY Antonio Service: ? Author Type: Registered Nurse [...] Electronically Signed By: Kerry Antonio RN [facility] HOSPon 06-20-2019 HOSP Patient:Mike Dumont MRN: Height:6' [...] mg-unit tab docusate sodium 100 mg capsule Mwhrs8-HdyX6-V00-E-FA -Fish Oil [id number] ax-zk-zia-mcg cap buPROPion SR (WELLBUTRIN SR) 150 mg [...] and counseling [Z71.3] DVT (deep venous thrombosis) ([facility]) [I82.409] Pulmonary embolism (HCC) [I26.99] Retinal detachment with retinal defect, unspecified [H33.009] LEXIE (obstructive sleep apnea) [G47.33] Hypomagnesemia [E83.42] Hypokalemia [E87.6] 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 Bzpah3-LhaD3-S88-E-FA -Fish Oil [phone] ut-je-qzc-mcg cap Take 600 mg by mouth twice [...] 8:48 AM PAGER: Previous Version Progress Notes (GENNARO GAIL BARCLAY): Betty Shane APRN.CNP 06/14/2019 2:41 PM Sign [...] mouth twice daily as needed for Constipation. Rmbqi7-OudJ5-A53-E-FA -Fish Oil [phone] zb-an-dxi-mcg cap Take 600 mg by mouth twice [...] were personally reviewed by me: {DIAGNOSTIC TEST REVIEW:[id number]} ASSESSMENT AND PLAN: Was started on BB and eliquis Suspect SOB was multifactoral but his heart was a major contributing factor Will keep albutrol as needed and consider LABA/ISC if symptoms retun Will repeat PFT SIGNATURE: Betty Shane APRN.CNP PATIENT NAME: Orion Dumont DATE: June 14, 2019 TIME: 2:06 PM PAGER/CONTACT #: [facility] HISTORY PHYSICALon 0 HISTORY PHYSICAL HNO ID: [id number] Author: Lamberto Sepulveda Service: ? Author Type: [...] with explicit agreement by patient or patient service support representative before surgery. SIGNATURE: Lamberto Sepulveda MD DATE: June 10, 2019 TIME: 11:18 AM Normal [facility] NURSING PROGon 06-10-2019 NURSING PROG HNO ID: [id number] Author: Milly (Rn) Jeison Saldana RN Service: Nursing Author Type: Registered Nurse Type: Nursing Progress Note Filed: 06/10/2019 12:27 PM Note Text: 1+ pedal pulses, dorsiflexion and NV checks intact bilaterally Normal [facility] OPERATIVE NOon 06-10-2019 OPERATIVE NO HNO ID: [id number] Author: Lamberto Sepulveda Service: ? Author Type: Physician Type: Operative Report Filed: 06/10/2019 12:17 PM Note Text: OPERATIVE/PROCEDURE REPORT LOG ID: [id number] Surgery/Procedure Date: 06/10/2019 Surgeon: Lamberto Sepulveda MD Car Scrubber: Joseph Raza DO Procedure(s):Operatio n: right L5-S1 [...] my care. Had spine surgery 1982 at [place] -Right IA hip injection on 03/04/2019 (Kenalog) with Ultrasound guidance by Dr Bennie Slaughter.wtih 100% relief for 3 days PROCEDURE: After obtaining both verbal and written informed consent, the patient was placed in a prone position on the fluoroscopic table in [facility] procedure room, the patient's posterior lumbosacral spine [...] criterion met. Lamberto Sepulveda MD Staff Physician [facility] SIGNATURE: Lamberto Sepulveda MD PATIENT NAME: Orion Dumont DATE: June 10, 2019 TIME: 12:13 PM PAGER/CONTACT #: [facility] PT EDon 06-10-2019 PT ED HNO ID: [id number] Author: Milly (RnEmelyn Montes RN Service: Nursing Author Type: Registered Nurse [...] Electronically Signed By: Milly Rogers RN [facility] PT ED HNO ID: [id number] Author: Courtney Mcfarlane RN Service: ? Author Type: Registered Nurse [...] Electronically Signed By: Courtney Mcfarlane RN [facility] HOSPon 06-06-2019 HOSP Patient:Mike Dumont MRN: Height:6' [...] mg-unit tab docusate sodium 100 mg capsule Usndm3-HewP1-K42-E-FA -Fish Oil [id number] jr-tt-kkm-mcg cap buPROPion SR (WELLBUTRIN SR) 150 mg [...] veins [I83.90] Anticoagulation management encounter [Z51.81, Z79.01] superintendent terminal (current) use of anticoagulants [Z79.01] Lattice degeneration [...] (HCC) [I48.91] Ingrown toenail [L60.0] NO SHOW [994341] Retinal detachment [H33.20] Shoulder pain [M25.519] Epiretinal [...] Visit for monitoring Tikosyn therapy [Z51.81, Z79.899] superintendent terminal current use of anticoagulant [Z79.01] On bridging [...] the following basenames: K,HCT Progress Notes (BMI [facility] REJ): Veronica Stubbs MD 06/07/2019 5:57 PM [...] mouth twice daily as needed for Constipation. 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 Dvt Prophylaxis Pericarditis History of Gastric Bypass Vitamin D Deficiency Iron Deficiency Anemia Orthostatic Hypotension Postsurgical Dumping Syndrome Hip Joint Replacement By Other Means Other Symptoms Involving Nervous and Musculoskeletal Systems(781.99) Torn Rotator Cuff Atrial Fibrillation With Rvr ([facility]) Ingrown Toenail No Show Retinal Detachment Shoulder Pain Epiretinal Membrane Gall Stones, Common Bile Duct Diplopia Monocular Exotropia Muscle Weakness (Generalized) Disorders of Bursae and Tendons in Shoulder Region, Unspecified Adhesive Capsulitis of Shoulder Pseudophakia, Both Eyes 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 Dcniq8-GbaD3-W39-E-FA -Fish Oil [id number] yk-ye-qvk-mcg cap Take 600 mg by mouth twice [...] TIME: 12:59 PM PAGER: Previous Version [facility] CT HIP WO IVCON LTon 019 CT HIP WO IVCON LT * * *Final Report* * * DATE OF EXAM: Mar 01 2019 5:02PM [facility] 0079 - CT HIP WO IVCON LT / PROCEDURE REASON: Closed fracture of left hip, initial encounter ([facility]) * * * * Physician Interpretation * [...] TOTAL HIP ARTHROPLASTY, WITH UNCHANGED PERIPROSTHETIC LUCENCIES. Binding Stitcher: EVELYNE Transcribe Date/Time: Mar 01 2019 5:55P Dictated by : FELIPA RUBALCAVA MD This examination was interpreted and the report reviewed and electronically signed by: TAJ TINAJERO MD on Mar 02 2019 9:12PM EST [id number] Normal [facility] CT HIP WO IVCON RTon 019 CT HIP WO IVCON RT * * *Final Report* * * DATE OF EXAM: Mar 01 2019 5:02PM [facility] 0080 - CT HIP WO IVCON RT / PROCEDURE REASON: Closed fracture of right hip, initial encounter ([facility]) * * * * Physician Interpretation * [...] TOTAL HIP ARTHROPLASTY, WITH UNCHANGED PERIPROSTHETIC LUCENCIES. Binding Stitcher: EVELYNE Transcribe Date/Time: Mar 01 2019 5:55P Dictated by : FELIPA RUBALCAVA MD This examination was interpreted and the report reviewed and electronically signed by: TAJ TINAJERO MD on Mar 02 2019 9:12PM EST [id number] [facility] PROGRESSon 03-01-2019 PROGRESS HNO ID: [id number] Author: Reymundo Mcnair (Tech) Service: Radiology Author Type: 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 Type: Progress Notes Filed: 03/01/2019 4:57 PM [...] REYMUNDO Mcnair March 01, 2019 4:56 PM [facility] ALLIED HEALTHon 02-27-2019 ALLIED HEALTH HNO ID: [id number] Author: Reymundo Bower (Tech) Service: Radiology Author Type: 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 Type: Allied Health Filed: 02/27/2019 9:22 PM Note Text: RADIOLOGY SERVICE PROGRESS NOTE DATE OF SERVICE: February 27, 2019 TIME OF SERVICE: 2129 EVENT: EXAM/PROCEDURE NOT COMPLETED - Patient has contraindication: Implant IVC FILTER PLACED 01/2010 [facility] NO -OPERATIVE NOTES. NEED INFORMATION ON TYPE OF FILTER. ADDITIONAL DATA: N/A SIGNATURE: Reymundo Bower PATIENT NAME: Orion Dumont DATE: February 27, 2019 TIME: 9:21 PM PAGER/CONTACT #: [facility] Vital Signs Date Time Vital Sign Value Performing Clinician Fidel desir 11-19-2024 08:49-0400 Body mass index (BMI) [Ratio] 30.85 kg/m2 Quincy Rajguru PRE OWNED SALES MANAGER.INSIDE FINISHER Work Phone: [facility] 11-19-2024 08:49-0400 Body weight 106.05 kg Quincy Riggsru PRE OWNED SALES MANAGER.INSIDE FINISHER Work Phone: [facility] 11-19-2024 08:49-0400 Diastolic blood pressure 86 mm[Hg] Quincy Riggsru PRE OWNED SALES MANAGER.INSIDE FINISHER Work Phone: [facility] 11-19-2024 08:49-0400 Heart rate 80 /min Quincy Riggsru PRE OWNED SALES MANAGER.INSIDE FINISHER Work Phone: [facility] 11-19-2024 08:49-0400 Respiratory rate 16 /min Quincy Riggsru PRE OWNED SALES MANAGER.INSIDE FINISHER Work Phone: [facility] 11-19-2024 08:49-0400 SaO2% (BldA) [Mass fraction] 97 % Quincy Alonzo PRE OWNED SALES MANAGER.INSIDE FINISHER Work Phone: [facility] 11-19-2024 08:49-0400 Systolic blood pressure 132 mm[Hg] Quincy Riggsru PRE OWNED SALES MANAGER.INSIDE FINISHER Work Phone: [facility] 11-11-2024 07:58-0400 Body mass index (BMI) [Ratio] 30.34 kg/m2 Shea GraffDaria PRE OWNED SALES MANAGER.INSIDE FINISHER Work Phone: [facility] 11-11-2024 07:58-0400 Body weight 104.3 kg Shea Etienne PRE OWNED SALES MANAGER.INSIDE FINISHER Work Phone: [facility] 11-11-2024 07:58-0400 Diastolic blood pressure 68 mm[Hg] Shea GraffDaria PRE OWNED SALES MANAGER.INSIDE FINISHER Work Phone: [facility] 11-11-2024 07:58-0400 Heart rate 74 /min Shea GraffDaria PRE OWNED SALES MANAGER.INSIDE FINISHER Work Phone: [facility] 11-11-2024 07:58-0400 Respiratory rate 14 /min Shea GraffDaria PRE OWNED SALES MANAGER.INSIDE FINISHER Work Phone: [facility] 11-11-2024 07:58-0400 SaO2% (BldA) [Mass fraction] 96 % Shea Etienne PRE OWNED SALES MANAGER.INSIDE FINISHER Work Phone: [facility] 11-11-2024 07:58-0400 Systolic blood pressure 102 mm[Hg] Shea Etienne PRE OWNED SALES MANAGER.INSIDE FINISHER Work Phone: [facility] 10-22-2024 14:17-0400 Body height 185.4 cm Antonio Stahl PA-C Work Phone: [facility] 10-22-2024 14:17-0400 Body mass index (BMI) [Ratio] 30.48 kg/m2 Antonio Stahl PA-C Work Phone: [facility] 10-22-2024 14:17-0400 Body temperature 97.7 [degF] Antonio Stahl PA-C Work Phone: [facility] 10-22-2024 14:17-0400 Body weight 104.78 kg Antonio Stahl PA-C Work Phone: [facility] 10-22-2024 14:17-0400 Diastolic blood pressure 62 mm[Hg] Antonio Stahl PA-C Work Phone: [facility] 10-22-2024 14:17-0400 Heart rate 100 /min Antonio Stahl PA-C Work Phone: [facility] 10-22-2024 14:17-0400 Respiratory rate 12 /min Antonio Stahl PA-C Work Phone: [facility] 10-22-2024 14:17-0400 SaO2% (BldA) [Mass fraction] 97 % Antonio Stahl PA-C Work Phone: [facility] 10-22-2024 14:17-0400 Systolic blood pressure 96 mm[Hg] Antonio Stahl PA-C Work Phone: [facility] 10-09-2024 17:47-0400 Body mass index (BMI) [Ratio] 29.86 kg/m2 Shea Etienne PRE OWNED SALES MANAGER.INSIDE FINISHER Work Phone: [facility] 10-09-2024 17:47-0400 Body weight 103.87 kg Shea GraffDaria PRE OWNED SALES MANAGER.INSIDE FINISHER Work Phone: [facility] 10-09-2024 17:47-0400 Diastolic blood pressure 62 mm[Hg] Shea Daria PRE OWNED SALES MANAGER.INSIDE FINISHER Work Phone: [facility] 10-09-2024 17:47-0400 Heart rate 78 /min Shea GraffAdria PRE OWNED SALES MANAGER.INSIDE FINISHER Work Phone: [facility] 10-09-2024 17:47-0400 Respiratory rate 12 /min Shea GraffDaria PRE OWNED SALES MANAGER.INSIDE FINISHER Work Phone: [facility] 10-09-2024 17:47-0400 SaO2% (BldA) [Mass fraction] 98 % Shea GraffDaria PRE OWNED SALES MANAGER.INSIDE FINISHER Work Phone: [facility] 10-09-2024 17:47-0400 Systolic blood pressure 110 mm[Hg] Shea EncarnacionDaria PRE OWNED SALES MANAGER.INSIDE FINISHER Work Phone: [facility] 10-08-2024 10:45-0400 Body mass index (BMI) [Ratio] 29.99 kg/m2 Quincy Alonzo PRE OWNED SALES MANAGER.INSIDE FINISHER Work Phone: [facility] 10-08-2024 10:45-0400 Body weight 104.33 kg Quincy Alonzo PRE OWNED SALES MANAGER.INSIDE FINISHER Work Phone: [facility] 10-08-2024 10:45-0400 Diastolic blood pressure 75 mm[Hg] Quincy Alonzo PRE OWNED SALES MANAGER.INSIDE FINISHER Work Phone: [facility] 10-08-2024 10:45-0400 Heart rate 89 /min Quincy Alonzo PRE OWNED SALES MANAGER.INSIDE FINISHER Work Phone: [facility] 10-08-2024 10:45-0400 SaO2% (BldA) [Mass fraction] 97 % Quincy Alonzo PRE OWNED SALES MANAGER.INSIDE FINISHER Work Phone: [facility] 10-08-2024 10:45-0400 Systolic blood pressure 118 mm[Hg] Quincy Alonzo APRSTEVEN Work Phone: [facility] 09-18-2024 11:00-0400 Body height 185.[address] Florian Gonzalez MD Work Phone: [facility] [place] [facility] 09-18-2024 11:00-0400 Body mass index (BMI) [Ratio] 30.4 kg/m2 Dr. Florian Gonzalez MD Work Phone: 2(482)197-412017 [place] [address] 09-18-2024 11:00-0400 Body weight 104.[address] Florian Gonzalez MD Work Phone: 9(450)769-84[address] [place] [address] 09-18-2024 11:00-0400 Diastolic blood pressure 71 mm[Hg] Dr. Florian Gonzalez MD Work Phone: 3(262)295-597717 [place] [address] 09-18-2024 11:00-0400 Heart rate 68 /min Dr. Florian Gonzalez MD Work Phone: 5(669)191-515817 [place] [address] 09-18-2024 11:00-0400 Respiratory rate 18 /min Dr. Florian Gonzalez MD Work Phone: 1(666)238-268117 [place] [address] 09-18-2024 11:00-0400 SaO2% (BldA) [Mass fraction] 95 % Dr. Florian Gonzalez MD Work Phone: 4(831)513-215117 [place] [address] 09-18-2024 11:00-0400 Systolic blood pressure 96 mm[Hg] Dr. Florian Gonzalez MD Work Phone: [facility] [place] [facility] 09-17-2024 12:41-0400 Body height 186.5 cm Josselin Maldonado MD Work Phone: [facility] 09-17-2024 12:41-0400 Body mass index (BMI) [Ratio] 30.39 kg/m2 Josselin Maldonado MD Work Phone: [facility] 09-17-2024 12:41-0400 Body weight 105.69 kg Josselin Maldonado MD Work Phone: [facility] 09-17-2024 12:41-0400 Diastolic blood pressure 68 mm[Hg] Josselin Maldonado MD Work Phone: [facility] 09-17-2024 12:41-0400 Heart rate 76 /min Josselin Maldonado MD Work Phone: [facility] 09-17-2024 12:41-0400 Respiratory rate 16 /min Josselin Maldonado MD Work Phone: [facility] 09-17-2024 12:41-0400 SaO2% (BldA) [Mass fraction] 98 % Josselin Maldonado MD Work Phone: [facility] 09-17-2024 12:41-0400 Systolic blood pressure 132 mm[Hg] Josselin Maldonado MD Work Phone: [facility] 09-17-2024 11:37-0400 Body height 186.5 cm Pulm Wstr Work Phone: [facility] 09-17-2024 11:37-0400 Body mass index (BMI) [Ratio] 30.39 kg/m2 Pulm Wstr Work Phone: [facility] 09-17-2024 11:37-0400 Body weight 105.69 kg Pulm Wstr Work Phone: [facility] 09-17-2024 11:37-0400 Heart rate 70 /min Pulm Wstr Work Phone: [facility] 09-17-2024 11:37-0400 Respiratory rate 16 /min Pulm Wstr Work Phone: [facility] 09-17-2024 11:37-0400 SaO2% (BldA) [Mass fraction] 98 % Pulm Wstr Work Phone: [facility] 08-06-2024 10:31-0400 Body mass index (BMI) [Ratio] 32.55 kg/m2 Quincy Alonzo APRN.INSIDE FINISHER Work Phone: [facility] 08-06-2024 10:31-0400 Body weight 111.4 kg Quincy Rajguru PRE OWNED SALES MANAGER.INSIDE FINISHER Work Phone: [facility] 08-06-2024 10:31-0400 Diastolic blood pressure 86 mm[Hg] Quincy Oneilru PRE OWNED SALES MANAGER.INSIDE FINISHER Work Phone: [facility] 08-06-2024 10:31-0400 Heart rate 85 /min Quincy Oneilru PRE OWNED SALES MANAGER.INSIDE FINISHER Work Phone: [facility] 08-06-2024 10:31-0400 Respiratory rate 18 /min Quincy Oneilru PRE OWNED SALES MANAGER.INSIDE FINISHER Work Phone: [facility] 08-06-2024 10:31-0400 SaO2% (BldA) [Mass fraction] 95 % Quincy Riggsru PRE OWNED SALES MANAGER.INSIDE FINISHER Work Phone: [facility] 08-06-2024 10:31-0400 Systolic blood pressure 134 mm[Hg] Quincy Alonzo PRE OWNED SALES MANAGER.INSIDE FINISHER Work Phone: [facility] 07-22-2024 21:10-0400 Diastolic blood pressure 96 mm[Hg] Dr. Florian Gonzalez MD Work Phone: [facility] [place] [facility] 07-22-2024 21:10-0400 Systolic blood pressure 139 mm[Hg] Dr. Florian Gonzalez MD Work Phone: [facility] [place] [facility] 07-22-2024 16:07-0400 Body height 184.[address] Florian Gonzalez MD Work Phone: [facility] [place] [facility] 07-22-2024 16:07-0400 Body mass index (BMI) [Ratio] 31.4 kg/m2 Dr. Florian Gonzalez MD Work Phone: [facility] [place] [facility] 07-22-2024 16:07-0400 Body temperature 97.6 [degF] Dr. Florian Gonzalez MD Work Phone: [facility] [place] [facility] 07-22-2024 16:07-0400 Body weight 107.[address] Florian Gonzalez MD Work Phone: [facility] [place] [facility] 07-22-2024 16:07-0400 Heart rate 81 /min Dr. Florian Gonzalez MD Work Phone: [facility] [place] [facility] 07-22-2024 16:07-0400 Respiratory rate 16 /min Dr. Florian Gonzalez MD Work Phone: [facility] [place] [facility] 07-22-2024 16:07-0400 SaO2% (BldA) [Mass fraction] 98 % Dr. Florian Gonzalez MD Work Phone: [facility] [place] [facility] 05-28-2024 15:18-0500 Body mass index (BMI) [Ratio] 31.79 kg/m2 Domo Granda PRE OWNED SALES MANAGER.CRYSTALLOGRAPHER Work Phone: [facility] 05-28-2024 15:18-0500 Body temperature 98.91 [degF] Domo Granda PRE OWNED SALES MANAGER.CRYSTALLOGRAPHER Work Phone: [facility] 05-28-2024 15:18-0500 Body weight 108.8 kg Domo Granda PRE OWNED SALES MANAGER.CRYSTALLOGRAPHER Work Phone: [facility] 05-28-2024 15:18-0500 Diastolic blood pressure 80 mm[Hg] Domo Granda PRE OWNED SALES MANAGER.CRYSTALLOGRAPHER Work Phone: [facility] 05-28-2024 15:18-0500 Heart rate 64 /min Domo Granda PRE OWNED SALES MANAGER.CRYSTALLOGRAPHER Work Phone: [facility] 05-28-2024 15:18-0500 Respiratory rate 20 /min Domo Granda PRE OWNED SALES MANAGER.CRYSTALLOGRAPHER Work Phone: [facility] 05-28-2024 15:18-0500 Systolic blood pressure 155 mm[Hg] Domo Granda PRE OWNED SALES MANAGER.CRYSTALLOGRAPHER Work Phone: [facility] 05-28-2024 14:28-0500 Body mass index (BMI) [Ratio] 31.78 kg/m2 Quincy Alonzo PRE OWNED SALES MANAGER.INSIDE FINISHER Work Phone: [facility] 05-28-2024 14:28-0500 Body weight 108.77 kg Quincy Alonzo PRE OWNED SALES MANAGER.INSIDE FINISHER Work Phone: [facility] 05-28-2024 14:28-0500 Diastolic blood pressure 80 mm[Hg] Quincy Riggsru PRE OWNED SALES MANAGER.INSIDE FINISHER Work Phone: [facility] 05-28-2024 14:28-0500 Heart rate 64 /min Quincy Alonzo PRE OWNED SALES MANAGER.INSIDE FINISHER Work Phone: [facility] 05-28-2024 14:28-0500 Respiratory rate 20 /min Quincy Alonzo PRE OWNED SALES MANAGER.INSIDE FINISHER Work Phone: [facility] 05-28-2024 14:28-0500 Systolic blood pressure 155 mm[Hg] Quincy Riggsru PRE OWNED SALES MANAGER.INSIDE FINISHER Work Phone: [facility] 05-27-2024 11:22-0500 Body height 185.4 cm Jerry MercadoToura DO Work Phone: [facility] 05-27-2024 11:22-0500 Body mass index (BMI) [Ratio] 29.03 kg/m2 Jerry MercadoToura DO Work Phone: [facility] [employer] 05-27-2024 11:22-0500 Body weight 99.79 kg Jerry MercadoBaraventoangie DO Work Phone: [facility] 05-13-2024 08:01-0500 Body height 185 cm Shea Etienne PRE OWNED SALES MANAGER.INSIDE FINISHER Work Phone: [facility] 05-13-2024 08:01-0500 Body mass index (BMI) [Ratio] 32.4 kg/m2 Shea GraffDaria PRE OWNED SALES MANAGER.INSIDE FINISHER Work Phone: [facility] 05-13-2024 08:01-0500 Body weight 110.9 kg Shea GraffDaria PRE OWNED SALES MANAGER.INSIDE FINISHER Work Phone: [facility] 05-13-2024 08:01-0500 Diastolic blood pressure 62 mm[Hg] Shea GraffDaria PRE OWNED SALES MANAGER.INSIDE FINISHER Work Phone: [facility] 05-13-2024 08:01-0500 Heart rate 94 /min Shea GraffDaria PRE OWNED SALES MANAGER.INSIDE FINISHER Work Phone: [facility] 05-13-2024 08:01-0500 Respiratory rate 16 /min Shea Etienne PRE OWNED SALES MANAGER.INSIDE FINISHER Work Phone: [facility] 05-13-2024 08:01-0500 SaO2% (BldA) [Mass fraction] 97 % Shea Etienne PRE OWNED SALES MANAGER.INSIDE FINISHER Work Phone: [facility] 05-13-2024 08:01-0500 Systolic blood pressure 110 mm[Hg] Shea Etienne PRE OWNED SALES MANAGER.INSIDE FINISHER Work Phone: [facility] 11-10-2023 09:03-0400 Body mass index (BMI) [Ratio] 31.03 kg/m2 Florian Gonzalez MD Work Phone: [facility] 11-10-2023 09:03-0400 Body temperature 97.5 [degF] Florian Gonzalez MD Work Phone: [facility] 11-10-2023 09:03-0400 Body weight 106.7 kg Florian Gonzalez MD Work Phone: [facility] 11-10-2023 09:03-0400 Diastolic blood pressure 60 mm[Hg] Florian Gonzalez MD Work Phone: [facility] 11-10-2023 09:03-0400 Heart rate 78 /min Florian Gonzalez MD Work Phone: [facility] 11-10-2023 09:03-0400 Respiratory rate 16 /min Florian Gonzalez MD Work Phone: [facility] 11-10-2023 09:03-0400 SaO2% (BldA) [Mass fraction] 98 % Florian Gonzalez MD Work Phone: [facility] 11-10-2023 09:03-0400 Systolic blood pressure 102 mm[Hg] Florian Gonzalez MD Work Phone: [facility] 10-31-2023 08:38-0400 Body mass index (BMI) [Ratio] 31.66 kg/m2 Quincy Riggsru PRE OWNED SALES MANAGER.INSIDE FINISHER Work Phone: [facility] 10-31-2023 08:38-0400 Body weight 108.86 kg Quincy Rajguru PRE OWNED SALES MANAGER.INSIDE FINISHER Work Phone: [facility] 10-31-2023 08:38-0400 Diastolic blood pressure 82 mm[Hg] Quincy Rajguru PRE OWNED SALES MANAGER.INSIDE FINISHER Work Phone: [facility] 10-31-2023 08:38-0400 Heart rate 78 /min Quincy Rajguru PRE OWNED SALES MANAGER.INSIDE FINISHER Work Phone: [facility] 10-31-2023 08:38-0400 Respiratory rate 14 /min Quincy Rajguru PRE OWNED SALES MANAGER.INSIDE FINISHER Work Phone: [facility] 10-31-2023 08:38-0400 Systolic blood pressure 124 mm[Hg] Quincy Rajguru PRE OWNED SALES MANAGER.INSIDE FINISHER Work Phone: [facility] 09-18-2023 08:57-0400 Body mass index (BMI) [Ratio] 30.08 kg/m2 Leonides Baker MD Work Phone: [facility] 09-18-2023 08:57-0400 Body weight 103.42 kg Leonides Baker MD Work Phone: [facility] 09-18-2023 08:57-0400 Diastolic blood pressure 70 mm[Hg] Leonides Baker MD Work Phone: [facility] 09-18-2023 08:57-0400 Systolic blood pressure 90 mm[Hg] Leonides Baker MD Work Phone: [facility] 08-01-2023 08:37-0400 Body mass index (BMI) [Ratio] 30.19 kg/m2 Quincy Rajguru PRE OWNED SALES MANAGER.INSIDE FINISHER Work Phone: [facility] 08-01-2023 08:37-0400 Body weight 103.78 kg Quincy Rajguru PRE OWNED SALES MANAGER.INSIDE FINISHER Work Phone: [facility] 08-01-2023 08:37-0400 Diastolic blood pressure 64 mm[Hg] Quincy Rajguru PRE OWNED SALES MANAGER.INSIDE FINISHER Work Phone: [facility] 08-01-2023 08:37-0400 Heart rate 80 /min Quincy Rajguru PRE OWNED SALES MANAGER.INSIDE FINISHER Work Phone: [facility] 08-01-2023 08:37-0400 Systolic blood pressure 102 mm[Hg] Quincy Rajguru PRE OWNED SALES MANAGER.INSIDE FINISHER Work Phone: [facility] 06-06-2023 10:09-0500 Body weight 102.97 kg Leonides Bakre MD Work Phone: [facility] 06-06-2023 10:09-0500 Diastolic blood pressure 60 mm[Hg] Leonides Baker MD Work Phone: [facility] 06-06-2023 10:09-0500 Systolic blood pressure 102 mm[Hg] Leonides Baker MD Work Phone: [facility] 05-30-2023 08:28-0500 Body weight 103.15 kg Quincy Rajguru PRE OWNED SALES MANAGER.INSIDE FINISHER Work Phone: [facility] 05-30-2023 08:28-0500 Diastolic blood pressure 68 mm[Hg] Quincy Rajguru PRE OWNED SALES MANAGER.INSIDE FINISHER Work Phone: [facility] 05-30-2023 08:28-0500 Heart rate 68 /min Quincy Rajguru PRE OWNED SALES MANAGER.INSIDE FINISHER Work Phone: [facility] 05-30-2023 08:28-0500 Systolic blood pressure 104 mm[Hg] Quincy Rajguru PRE OWNED SALES MANAGER.INSIDE FINISHER Work Phone: [facility] 05-12-2023 09:49-0500 Body height 185.4 cm Florian Gonzalez MD Work Phone: [facility] 05-12-2023 09:49-0500 Body weight 97.52 kg Florian Gonzalez MD Work Phone: [facility] 05-12-2023 09:49-0500 Diastolic blood pressure 74 mm[Hg] Florian Gonzalez MD Work Phone: [facility] 05-12-2023 09:49-0500 Heart rate 72 /min Florian Gonzalez MD Work Phone: [facility] 05-12-2023 09:49-0500 Respiratory rate 16 /min Florian Gonzalez MD Work Phone: [facility] 05-12-2023 09:49-0500 Systolic blood pressure 118 mm[Hg] Florian Gonzalez MD Work Phone: [facility] 02-23-2023 09:22-0500 Body weight 95.25 kg Leonides Baker MD Work Phone: [facility] 02-23-2023 09:22-0500 Diastolic blood pressure 76 mm[Hg] Leonides Baker MD Work Phone: [facility] 02-23-2023 09:22-0500 Systolic blood pressure 112 mm[Hg] Leonides Baker MD Work Phone: [facility] 02-22-2023 10:27-0500 Diastolic blood pressure 73 mm[Hg] Kassie Ruiz MD Work Phone: [facility] 02-22-2023 10:27-0500 Heart rate 81 /min Kassie Ruiz MD Work Phone: [facility] 02-22-2023 10:27-0500 Respiratory rate 16 /min Kassie Ruiz MD Work Phone: [facility] 02-22-2023 10:27-0500 SaO2% (BldA) [Mass fraction] 97 % Kassie Ruiz MD Work Phone: [facility] 02-22-2023 10:27-0500 Systolic blood pressure 133 mm[Hg] Kassie Ruiz MD Work Phone: [facility] 02-22-2023 08:39-0500 Body temperature 96.91 [degF] Kassie Ruiz MD Work Phone: [facility] 02-22-2023 08:39-0500 Body weight 98 kg Kassie Ruiz MD Work Phone: [facility] 02-21-2023 09:09-0500 Body height 185.4 cm Antonio Stahl PA-C Work Phone: [facility] 02-21-2023 09:09-0500 Body temperature 98.4 [degF] Antonio Stahl PA-C Work Phone: [facility] 02-21-2023 09:09-0500 Body weight 96.53 kg Antonio Stahl PA-C Work Phone: [facility] 02-21-2023 09:09-0500 Diastolic blood pressure 70 mm[Hg] Antonio Stahl PA-C Work Phone: [facility] 02-21-2023 09:09-0500 Heart rate 90 /min Antonio Stahl PA-C Work Phone: [facility] 02-21-2023 09:09-0500 SaO2% (BldA) [Mass fraction] 97 % Antonio Stahl PA-C Work Phone: [facility] 02-21-2023 09:09-0500 Systolic blood pressure 112 mm[Hg] Antonio Stahl PA-C Work Phone: [facility] 01-31-2023 08:07-0400 Body weight 97.98 kg Florian Gonzalez MD Work Phone: [facility] 01-31-2023 08:07-0400 Diastolic blood pressure 66 mm[Hg] Florian Gonzalez MD Work Phone: [facility] 01-31-2023 08:07-0400 Heart rate 76 /min Florian Gonzalez MD Work Phone: [facility] 01-31-2023 08:07-0400 Respiratory rate 16 /min Florian Gonzalez MD Work Phone: [facility] 01-31-2023 08:07-0400 Systolic blood pressure 100 mm[Hg] Florian Gonzalez MD Work Phone: [facility] 01-19-2023 09:33-0400 Body height 185.4 cm Toya Smith MD Work Phone: [facility] 01-19-2023 09:33-0400 Body mass index (BMI) [Ratio] 27.71 kg/m2 Toya Smith MD Work Phone: [facility] 01-19-2023 09:33-0400 Body weight 95.25 kg Toya Smith MD Work Phone: [facility] 11-18-2022 09:27-0400 Body height 185.4 cm Antonio Stahl PA-C Work Phone: [facility] 11-18-2022 09:27-0400 Body temperature 98.29 [degF] Antonio Stahl PA-C Work Phone: [facility] 11-18-2022 09:27-0400 Body weight 96.8 kg Antonio Stahl PA-C Work Phone: [facility] 11-18-2022 09:27-0400 Diastolic blood pressure 60 mm[Hg] Antonio Stahl PA-C Work Phone: [facility] 11-18-2022 09:27-0400 Heart rate 102 /min Antonio Stahl PA-C Work Phone: [facility] 11-18-2022 09:27-0400 Respiratory rate 14 /min Antonio Stahl PA-C Work Phone: [facility] 11-18-2022 09:27-0400 SaO2% (BldA) [Mass fraction] 99 % Antonio Stahl PA-C Work Phone: [facility] 11-18-2022 09:27-0400 Systolic blood pressure 82 mm[Hg] Antonio Stahl PA-C Work Phone: [facility] 11-08-2022 11:27-0400 Body weight 97.07 kg Florian Gonzalez MD Work Phone: [facility] 11-08-2022 11:27-0400 Diastolic blood pressure 60 mm[Hg] Florian Gonzalez MD Work Phone: [facility] 11-08-2022 11:27-0400 Heart rate 76 /min Florian Gonzalez MD Work Phone: [facility] 11-08-2022 11:27-0400 Respiratory rate 18 /min Florian Gonzalez MD Work Phone: [facility] 11-08-2022 11:27-0400 Systolic blood pressure 92 mm[Hg] Florian Gonzalez MD Work Phone: [facility] 08-15-2022 08:55-0400 Body weight 99.34 kg Leonides Baker MD Work Phone: [facility] 08-15-2022 08:55-0400 Diastolic blood pressure 80 mm[Hg] Leonides Baker MD Work Phone: [facility] 08-15-2022 08:55-0400 Systolic blood pressure 124 mm[Hg] Leonides Baker MD Work Phone: [facility] 07-11-2022 10:03-0400 Body height 185.4 cm Anabaptist Backer PA-C Work Phone: [facility] [employer] 07-11-2022 10:03-0400 Body mass index (BMI) [Ratio] 29.16 kg/m2 Anabaptist Backer PA-C Work Phone: [facility] [employer] 07-11-2022 10:03-0400 Body temperature 97.59 [degF] Anabaptist Backer PA-C Work Phone: [facility] [employer] 07-11-2022 10:03-0400 Body weight 100.25 kg Anabaptist Backer PA-C Work Phone: [facility] [employer] 07-11-2022 10:03-0400 Diastolic blood pressure 84 mm[Hg] Anabaptist Backer PA-C Work Phone: [facility] [employer] 07-11-2022 10:03-0400 Systolic blood pressure 128 mm[Hg] Anabaptist Backer PA-C Work Phone: [facility] 07-01-2022 14:00-0400 Diastolic blood pressure 87 mm[Hg] Toya Smith MD Work Phone: [facility] 07-01-2022 14:00-0400 Heart rate 85 /min Toya Smith MD Work Phone: [facility] 07-01-2022 14:00-0400 Respiratory rate 16 /min Toya Smith MD Work Phone: [facility] 07-01-2022 14:00-0400 SaO2% (BldA) [Mass fraction] 96 % Toya Smith MD Work Phone: [facility] 07-01-2022 14:00-0400 Systolic blood pressure 121 mm[Hg] Toya Smith MD Work Phone: [facility] 07-01-2022 13:12-0400 Body temperature 97.9 [degF] Toya Smith MD Work Phone: [facility] 07-01-2022 10:44-0400 Body mass index (BMI) [Ratio] 29.16 kg/m2 Toya Smith MD Work Phone: [facility] 07-01-2022 10:44-0400 Body weight 100.25 kg Toya Smith MD Work Phone: [facility] 06-13-2022 12:36-0500 Body weight 99.34 kg Florian Gonzalez MD Work Phone: [facility] 06-13-2022 12:36-0500 Diastolic blood pressure 64 mm[Hg] Florian Gonzalez MD Work Phone: [facility] 06-13-2022 12:36-0500 Heart rate 72 /min Florian Gonzalez MD Work Phone: [facility] 06-13-2022 12:36-0500 Respiratory rate 20 /min Florian Gonzalez MD Work Phone: [facility] 06-13-2022 12:36-0500 Systolic blood pressure 96 mm[Hg] Florian Gonzalez MD Work Phone: [facility] 05-26-2022 08:41-0500 Body height 185.4 cm Toya Smith MD Work Phone: [facility] 05-26-2022 08:41-0500 Body mass index (BMI) [Ratio] 29.69 kg/m2 Toya Smith MD Work Phone: [facility] 05-26-2022 08:41-0500 Body weight 102.06 kg Toya Smith MD Work Phone: [facility] 05-26-2022 08:41-0500 Diastolic blood pressure 70 mm[Hg] Toya Smith MD Work Phone: [facility] 05-26-2022 08:41-0500 Systolic blood pressure 110 mm[Hg] Toya Smith MD Work Phone: [facility] 05-18-2022 10:54-0500 Body weight 101.61 kg Quincy Rajguru PRE OWNED SALES MANAGER.INSIDE FINISHER Work Phone: [facility] 05-18-2022 10:54-0500 Diastolic blood pressure 68 mm[Hg] Quincy Rajguru PRE OWNED SALES MANAGER.INSIDE FINISHER Work Phone: [facility] 05-18-2022 10:54-0500 Heart rate 80 /min Quincy Rajguru PRE OWNED SALES MANAGER.INSIDE FINISHER Work Phone: [facility] 05-18-2022 10:54-0500 Systolic blood pressure 116 mm[Hg] Quincy Rajguru PRE OWNED SALES MANAGER.INSIDE FINISHER Work Phone: [facility] 05-09-2022 12:13-0500 Body height 184.8 cm Florian Gonzalez MD Work Phone: [facility] 05-09-2022 12:13-0500 Body temperature 96.91 [degF] Florian Gonzalez MD Work Phone: [facility] 05-09-2022 12:13-0500 Body weight 98.34 kg Florian Gonzalez MD Work Phone: [facility] 05-09-2022 12:13-0500 Diastolic blood pressure 64 mm[Hg] Florian Gonzalez MD Work Phone: [facility] 05-09-2022 12:13-0500 Heart rate 60 /min Florian Gonzalez MD Work Phone: [facility] 05-09-2022 12:13-0500 Respiratory rate 12 /min Florian Gonzalez MD Work Phone: [facility] 05-09-2022 12:13-0500 Systolic blood pressure 98 mm[Hg] Florian Gonzalez MD Work Phone: [facility] 05-04-2022 09:02-0500 Body height 185.4 cm Phil Lobato MD Work Phone: [facility] 05-04-2022 09:02-0500 Body mass index (BMI) [Ratio] 29.69 kg/m2 Phil Lobato MD Work Phone: [facility] [employer] 05-04-2022 09:02-0500 Body weight 102.06 kg Phil Lobato MD Work Phone: [facility] [employer] 04-28-2022 09:57-0500 Body height 185.4 cm Toya Smith MD Work Phone: [facility] [employer] 04-28-2022 09:57-0500 Body mass index (BMI) [Ratio] 29.69 kg/m2 Toya Smith MD Work Phone: [facility] [employer] 04-28-2022 09:57-0500 Body temperature 96.91 [degF] Toya Smith MD Work Phone: [employer] 04-28-2022 09:57-0500 Body weight 102.06 kg Toya Smith MD Work Phone: [facility] [employer] 04-28-2022 09:57-0500 Diastolic blood pressure 82 mm[Hg] Toya Smith MD Work Phone: [facility] [employer] 04-28-2022 09:57-0500 Systolic blood pressure 128 mm[Hg] Toya Smith MD Work Phone: [facility] 03-13-2022 23:17-0500 Body height 185.[address] [facility] Work Phone: 03-13-2022 23:17-0500 Body mass index (BMI) [Ratio] 31.2 kg/m2 [facility] Work Phone: 03-13-2022 23:17-0500 Body temperature 97.6 [degF] [facility] Work Phone: 03-13-2022 23:17-0500 Body weight 107.[address] [facility] Work Phone: 03-13-2022 23:17-0500 Diastolic blood pressure 102 mm[Hg] [facility] Work Phone: 03-13-2022 23:17-0500 Heart rate 66 /min [facility] Work Phone: 03-13-2022 23:17-0500 Respiratory rate 18 /min [facility] Work Phone: 03-13-2022 23:17-0500 SaO2% (BldA) [Mass fraction] 99 % [facility] Work Phone: 03-13-2022 23:17-0500 Systolic blood pressure 165 mm[Hg] [facility] Work Phone: 03-10-2022 08:39-0500 Body temperature 97 [degF] Florian Gonzalez MD Work Phone: [facility] 03-10-2022 08:39-0500 Body weight 105.69 kg Florian Gonzalez MD Work Phone: [facility] 03-10-2022 08:39-0500 Diastolic blood pressure 76 mm[Hg] Florian Gonzalez MD Work Phone: [facility] 03-10-2022 08:39-0500 Heart rate 60 /min Florian Gonzalez MD Work Phone: [facility] 03-10-2022 08:39-0500 Respiratory rate 12 /min Florian Gonzalez MD Work Phone: [facility] 03-10-2022 08:39-0500 Systolic blood pressure 112 mm[Hg] Florian Gonzalez MD Work Phone: [facility] 02-02-2022 08:10-0400 Body weight 108.86 kg Leonides Baker MD Work Phone: [facility] 02-02-2022 08:10-0400 Diastolic blood pressure 72 mm[Hg] Leonides Baker MD Work Phone: [facility] 02-02-2022 08:10-0400 Systolic blood pressure 110 mm[Hg] Leonides Baker MD Work Phone: [facility] 01-29-2022 08:19-0400 Diastolic blood pressure 58 mm[Hg] [facility] Work Phone: 01-29-2022 08:19-0400 Heart rate 71 /min [facility] Work Phone: 01-29-2022 08:19-0400 Respiratory rate 20 /min [facility] Work Phone: 01-29-2022 08:19-0400 SaO2% (BldA) [Mass fraction] 98 % [facility] Work Phone: 01-29-2022 08:19-0400 Systolic blood pressure 120 mm[Hg] [facility] Work Phone: 01-29-2022 05:26-0400 Body height 185.[address] [facility] Work Phone: 01-29-2022 05:26-0400 Body mass index (BMI) [Ratio] 32.2 kg/m2 [facility] Work Phone: 01-29-2022 05:26-0400 Body temperature 96.3 [degF] [facility] Work Phone: 01-29-2022 05:26-0400 Body weight 110.[address] [facility] Work Phone: 12-30-2021 10:27-0400 Body weight 106.14 kg Quincy Rajguru PRE OWNED SALES MANAGER.INSIDE FINISHER Work Phone: [facility] 12-30-2021 10:27-0400 Diastolic blood pressure 58 mm[Hg] Quincy Rajguru PRE OWNED SALES MANAGER.INSIDE FINISHER Work Phone: [facility] 12-30-2021 10:27-0400 Heart rate 60 /min Quincy Rajguru PRE OWNED SALES MANAGER.INSIDE FINISHER Work Phone: [facility] 12-30-2021 10:27-0400 Systolic blood pressure 100 mm[Hg] Quincy Rajguru PRE OWNED SALES MANAGER.INSIDE FINISHER Work Phone: [facility] 2021 10:00-0400 Body height 185.4 cm Quincy Rajguru PRE OWNED SALES MANAGER.INSIDE FINISHER Work Phone: [facility] 2021 10:00-0400 Body weight 105.23 kg Quincy Rajguru PRE OWNED SALES MANAGER.INSIDE FINISHER Work Phone: [facility] 2021 10:00-0400 Diastolic blood pressure 64 mm[Hg] Quincy Rajguru PRE OWNED SALES MANAGER.INSIDE FINISHER Work Phone: [facility] 2021 10:00-0400 Systolic blood pressure 100 mm[Hg] Quincy Rajguru PRE OWNED SALES MANAGER.INSIDE FINISHER Work Phone: [facility] 10-05-2021 12:35-0400 Body weight 107.5 kg Kusum Millan PRE OWNED SALES MANAGER.INSIDE FINISHER Work Phone: [facility] 10-05-2021 12:35-0400 Diastolic blood pressure 70 mm[Hg] Kusum Millan PRE OWNED SALES MANAGER.INSIDE FINISHER Work Phone: [facility] 10-05-2021 12:35-0400 Systolic blood pressure 104 mm[Hg] Kusum Millan PRE OWNED SALES MANAGER.INSIDE FINISHER Work Phone: [facility] 08-13-2021 10:42-0400 Body weight 104.78 kg Shea Older PRE OWNED SALES MANAGER.INSIDE FINISHER Work Phone: [facility] 08-13-2021 10:42-0400 Diastolic blood pressure 64 mm[Hg] Shea Older PRE OWNED SALES MANAGER.INSIDE FINISHER Work Phone: [facility] 08-13-2021 10:42-0400 Heart rate 99 /min Shea Older PRE OWNED SALES MANAGER.INSIDE FINISHER Work Phone: [facility] 08-13-2021 10:42-0400 Respiratory rate 18 /min Shea Older PRE OWNED SALES MANAGER.INSIDE FINISHER Work Phone: [facility] 08-13-2021 10:42-0400 SaO2% (BldA) [Mass fraction] 98 % Shea Older PRE OWNED SALES MANAGER.INSIDE FINISHER Work Phone: [facility] [place] 08-13-2021 10:42-0400 Systolic blood pressure 94 mm[Hg] Shea Older PRE OWNED SALES MANAGER.INSIDE FINISHER Work Phone: [facility] 06-30-2021 19:49-0400 Diastolic blood pressure 92 mm[Hg] [facility] Work Phone: 06-30-2021 19:49-0400 Heart rate 73 /min [facility] Work Phone: 06-30-2021 19:49-0400 Respiratory rate 15 /min [facility] Work Phone: 06-30-2021 19:49-0400 SaO2% (BldA) [Mass fraction] 98 % [facility] Work Phone: 06-30-2021 19:49-0400 Systolic blood pressure 128 mm[Hg] [facility] Work Phone: 06-30-2021 16:13-0400 Body height 185.[address] [facility] Work Phone: 06-30-2021 16:13-0400 Body mass index (BMI) [Ratio] 32.3 kg/m2 [facility] Work Phone: 06-30-2021 16:13-0400 Body temperature 97.9 [degF] [facility] Work Phone: 06-30-2021 16:130400 Body weight [address] [facility] Work Phone: Encounters Encounter Date Encounter Type Care Provider Facility Start: 12-29-2024 Emergency department patient visit Damariselin Hensley Facility:[facility] Start: 12-25-2024 End: 12-25-2024 ambulatory DAISY FAUSTINA Facility:[facility] Start: 12-10-2024 End: 12-10-2024 ambulatory ISA Britney GAVIN Facility:[facility] Start: 11-19-2024 End: 11-19-2024 Office outpatient visit 25 minutes Quincy Alonzo APRN.INSIDE FINISHER Work Phone: Psychiatry Comment on above: Generalized anxiety disorder (Primary Dx); Psychosocial stressors; Insomnia due to other mental disorder; Recurrent major depressive disorder, in partial remission; Encounter for long-term (current) use of medications Start: 11-19-2024 End: 11-19-2024 ambulatory FLORIAN GONZALEZ Facility:[facility] Start: 11-11-2024 End: 11-11-2024 Office outpatient visit 25 minutes Shea Etienne PRE OWNED SALES MANAGER.INSIDE FINISHER Work Phone: [facility] [place] Comment on above: Mild intermittent as thma [...] Start: 11-11-2024 End: 11-11-2024 ambulatory SHEA ETIENNE Facility:[facility] Start: 10-25-2024 End: 10-25-2024 ambulatory ISA Britney ALONSO Facility:[facility] Start: 10-22-2024 End: 10-22-2024 Patient encounter procedure Antonio Stahl PA-C Work Phone: Urology Comment on above: Balanitis (Primary D x); Urge incontinence of urine; Screening for genitourinary condition Start: 10-22-2024 End: 10-22-2024 ambulatory DAISY FAUSTINA Facility:[facility] Start: 10-15-2024 End: 10-15-2024 ambulatory Jenn Vidales RN Work Phone: Home Health Outreach Coordinator Management Comment on above: Bi-Weekly Outreach ( Recurring) for Chronic Disease Management, Bi-Weekly Outreach (Recurring) for Chronic Disease Management Start: 10-15-2024 End: 10-16-2024 Follow-up encounter Shea Etienne APRN.CNP Work Phone: [facility] [place] Start: 10-09-2024 End: 10-09-2024 Subsequent hospital visit by physician Xr [facility] [place] Work Phone: Radiology Comment on above: Acute midline low ba ck pain without sciatica [M54.50] Start: 10-09-2024 End: 10-09-2024 Office outpatient visit 25 minutes Shea Etienne APRN.INSIDE FINISHER Work Phone: Internal Medicine [place] Comment on above: Fall, initial encoun ter (Primary Dx); Acute midline low back pain without sciatica; Injury of head, initial encounter; Acute pain of both shoulders; superintendent terminal (current) use of anticoagulants Start: 10-09-2024 End: 10-09-2024 ambulatory Jenn Vidales RN Work Phone: Home Health Outreach Coordinator Management Comment on above: Bi-Weekly Outreach ( Recurring) for Chronic Disease Management Head Injury; back in jury Start: 10-09-2024 End: 10-10-2024 Telephone encounter Shea Etienne APRN.CNP Work Phone: [facility] [place] Start: 10-08-2024 End: 10-08-2024 Office outpatient visit 25 minutes Quincy Alonzo APRN.RAJAN Work Phone: Psychiatry Comment on above: Major depressive dis order, 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); Insomnia due to other mental disorder; Generalized anxiety disorder; Psychosocial stressors; Encounter for long-term (current) use of medications Start: 10-08-2024 End: 10-08-2024 ambulatory QUINCY J CLINTON Facility:[facility] Start: 10-06-2024 End: 10-07-2024 Refill Leonides Baker MD Work Phone: [facility] Comment on above: Refill Request Start: 09-26-2024 End: 09-26-2024 ambulatory Jenn Vidales RN Work Phone: Home Health Outreach Coordinator Management Comment on above: Bi-Weekly Outreach ( Recurring) for Chronic Disease Management Start: 09-25-2024 End: 09-25-2024 ambulatory Jenn Vidales RN Work Phone: Home Health Outreach Coordinator Management Comment on above: Started Bi-Weekly Ou treach (Recurring) for Chronic Disease Management Start: 09-23-2024 End: 09-23-2024 Telephone encounter Quincy Murray Clinton GALVEZINSIDE FINISHER Work Phone: Psychiatry Comment on above: Appointment Start: 09-23-2024 End: 09-23-2024 Patient encounter procedure Quincy Murray Clinton PRE OWNED SALES MANAGER.INSIDE FINISHER Work Phone: Psychiatry Comment on above: APPOINTMENT CANCELLE D (Primary Dx) Start: 09-23-2024 End: 09-23-2024 Telemedicine consultation with patient Quincy Alonzo APRPlacidoINSIDE FINISHER Work Phone: Psychiatry Start: 09-23-2024 End: 09-23-2024 ambulatory QUINCY J CLINTON Facility:[facility] Start: 09-19-2024 End: 09-20-2024 Refill Josselin Maldonado MD Work Phone: [address] [place] [address] Comment on above: Refill Request Start: 09-18-2024 End: 09-18-2024 Follow-up encounter Antonio Stahl PA-C Work Phone: Urology Comment on above: Results Start: 09-18-2024 End: 09-18-[address] Lyudmila Euceda MD -[facility] Work Phone: Start: 09-18-2024 End: 09-18-[address] Florian Gonzalez MD Work Phone: [facility] Work Phone: Start: 09-17-2024 End: 09-17-2024 ambulatory [facility] Work Phone: [facility] Comment on above: Spirometry Start: 09-17-2024 End: 09-17-2024 Patient encounter procedure [facility] Work Phone: [facility] Start: 09-17-2024 End: 09-19-2024 Telephone encounter Josselin Maldonado MD Work Phone: Pulmonary Medicine Start: 09-17-2024 End: 09-17-2024 ambulatory FLORIAN GONZALEZ Facility:[facility] Start: 09-17-2024 End: 09-17-2024 Patient encounter procedure Josselin Maldonado MD Work Phone: Pulmonary Medicine Comment on above: Cough variant asthma (HCC) (Primary Dx) Start: 09-17-2024 End: 09-17-2024 Patient encounter procedure [facility] Work Phone: [facility] Start: 09-17-2024 End: 09-17-2024 ambulatory [facility] Work Phone: [facility] Comment on above: Spirometry Start: 09-14-2024 End: 09-14-2024 ambulatory Shyanne Corona RN Home Health Outreach Coordinator Management Comment on above: High Risk phone cont act for Chronic Disease Management Start: 09-14-2024 End: 09-14-2024 Telephone encounter Deon Glez MD Work Phone: Virtual Medicine Start: 09-13-2024 End: 09-13-2024 Patient Outreach Gilmer Pearson RN Work Phone: Home Health Outreach Coordinator Management Comment on above: Transition Of Care ( Inbound call ) Urinary frequency (P rimary Dx) Bi-Weekly Outreach ( Recurring) for Chronic Disease Management Care Coordination (C hooker review and outreach for CHF GDMT Care Path) Start: 08-29-2024 ambulatory FLORIAN GONZALEZ Faci lity:[facility] Start: 08-29-2024 End: 08-29-2024 ambulatory DAISY FAUSTINA Facility:[facility] Start: 08-15-2024 End: 08-15-2024 ambulatory Jenn Vidales RN Work Phone: Home Health Outreach Coordinator Management Comment on above: Bi-Weekly Outreach ( Recurring) for Chronic Disease Management Start: 08-06-2024 End: 08-06-2024 Office outpatient visit 25 minutes Quincy Alonzo APRN.INSIDE FINISHER Work Phone: Psychiatry Comment on above: Generalized anxiety disorder (Primary Dx); Psychosocial stressors; Chronic post-traumatic stress disorder (PTSD); Major depressive disorder, recurrent severe without psychotic features (HCC); Insomnia due to other mental disorder; Encounter for long-term (current) use of medications Start: 08-06-2024 End: 08-06-2024 ambulatory QUINCY ALONZO Facility:[facility] Start: 07-31-2024 End: 07-31-2024 ambulatory Jenn Vidales RN Work Phone: Home Health Outreach Coordinator Management Comment on above: Bi-Weekly Outreach ( Recurring) for Chronic Disease Management Start: 07-26-2024 End: 07-26-2024 Chart abstracting Kusum Jeffries [facility] Work Phone: Psychology Start: 07-22-2024 End: 07-22-2024 ambulatory FLORIAN GONZALEZ Facility:[facility] Start: 07-22-2024 End: 07-22-2024 Patient encounter procedure Jackeline Hair APRN.INSIDE FINISHER Work Phone: [facility] Comment on above: Excessive bleeding ( Primary Dx) Start: 07-22-2024 End: 07-22-2024 Emergency department patient visit Dr. Florian Gonzalez MD Work Phone: -Emergency Department Work Phone: Start: 07-19-2024 End: 07-19-2024 Telephone encounter Kusum Jeffries [facility] Work Phone: Psychology Comment on above: bh consult Start: 07-17-2024 End: 07-18-2024 ambulatory Jenn Vidales RN Work Phone: Home Health Outreach Coordinator Management Comment on above: Initial enrollment o kim for Chronic Disease Management Start: 07-01-2024 End: 07-01-2024 Telephone encounter Quincy Alonzo APRN.INSIDE FINISHER Work Phone: Psychiatry Start: 06-19-2024 End: 06-19-2024 Refill Quincy Alonzo APRN.INSIDE FINISHER Work Phone: Psychiatry Comment on above: Med Change Request Start: 06-10-2024 End: 06-12-2024 Telephone encounter Quincy Alonzo APRN.INSIDE FINISHER Work Phone: [facility] [place] Start: 05-31-2024 End: 07-31-2024 Follow-up encounter Domo Granda APRN.CRYSTALLOGRAPHER Work Phone: Internal Medicine [place] Start: 05-28-2024 End: 05-28-2024 ambulatory FLORIAN GONZALEZ Facility:[facility] Start: 05-28-2024 End: 05-28-2024 Subsequent hospital visit by physician Xr [facility] [place] Work Phone: Radiology Comment on above: Acute cough [R05.1] Start: 05-28-2024 End: 05-28-2024 Office outpatient visit 15 minutes Domo Granda APRN.CRYSTALLOGRAPHER Work Phone: Internal Medicine [place] Comment on above: Acute cough (Primary Dx); Acute non-recurrent frontal sinusitis; 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) Start: 05-28-2024 End: 05-28-2024 Office outpatient visit 40 minutes Quincy Alonzo APRN.INSIDE FINISHER Work Phone: Psychiatry Comment on above: Chronic post-traumat ic stress disorder (PTSD) (Primary Dx); Generalized anxiety disorder; Major depressive disorder, recurrent severe without psychotic features (HCC); Insomnia due to other mental disorder; Encounter for long-term (current) use of medications; Psychosocial stressors Start: 05-28-2024 End: 05-28-2024 ambulatory FLORIAN GONZALEZ Facility:[facility] Start: 05-27-2024 End: 05-27-2024 Bamboo flowsheet Jerry Kellogg DO Work Phone: [facility] Start: 05-27-2024 End: 05-27-2024 Bamboo flowsheet Jerry Kellogg DO Work Phone: [facility] Start: 05-27-2024 End: 05-27-2024 Office outpatient visit 15 minutes Jerry Kellogg DO Work Phone: [facility] Comment on above: Bicipital tendinitis of right shoulder (Primary Dx); Sprain of right rotator cuff capsule, initial encounter; Impingement syndrome of right shoulder Start: 05-27-2024 End: 05-27-2024 ambulatory JERRY KELLOGG Not Available Start: 05-14-2024 End: 05-14-2024 Refill Leonides Baker MD Work Phone: [facility] Comment on above: Refill Request Start: 05-13-2024 End: 05-13-2024 ambulatory SHEA ETIENNE Facility:[facility] Start: 05-13-2024 End: 05-13-2024 Patient encounter procedure Shea Etienne PRE OWNED SALES MANAGER.INSIDE FINISHER Work Phone: Internal Medicine [place] Comment on above: Medicare annual well ness [...] with urinary obstruction Start: 05-01-2024 End: 05-01-2024 [facility] Leonides Baker MD Work Phone: [facility] Comment on above: Atrial fibrillation with RVR [...] Stage 1 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 ([facility]) Start: 04-23-2024 End: 04-23-2024 ambulatory FLROIAN GONZLAEZ Facility:[facility] Start: 04-22-2024 End: 04-26-2024 Refill Quincy Alonzo APRN.INSIDE FINISHER Work Phone: Psychiatry Comment on above: Refill Request Start: 03-08-2024 End: 03-08-2024 Refill Leonides Baker MD Work Phone: [facility] Comment on above: Refill Request Start: 01-26-2024 End: 01-26-2024 Refill Quincy Alonzo APRN.INSIDE FINISHER Work Phone: Psychiatry Comment on above: Refill Request Start: 01-07-2024 End: 01-07-2024 Refill Leonides Baker MD Work Phone: [facility] Comment on above: Refill Request Start: 11-10-2023 End: 11-10-2023 Patient encounter procedure Florian Gonzalez MD Work Phone: [facility] [place] Comment on above: Hyperlipidemia, unsp ecified hyperlipidemia type (Primary Dx); LEXIE (obstructive sleep apnea); Balanitis; Impaired fasting glucose; Atrial fibrillation with RVR ([facility]); Vitamin D deficiency Start: 11-08-2023 Refill Antonio Stahl PA-C Work Phone: Urology Comment on above: Refill Request Start: 11-01-2023 Refill Florian castelan MD Work Phone: [facility] [place] Comment on above: Refill Request Start: 10-31-2023 End: 10-31-2023 Patient encounter procedure Quincy Alonzo APRN.INSIDE FINISHER Work Phone: Psychiatry Comment on above: Recurrent major depr essive disorder, in partial remission (HCC) (Primary Dx); Generalized anxiety disorder; Chronic post-traumatic stress disorder (PTSD) Start: 10-30-2023 Refill Antonio Stahl PA-C Work Phone: Urology Comment on above: Refill Request Start: 10-12-2023 Refill Leonides costa MD Work Phone: [facility] Comment on above: Refill Request Start: 09-18-2023 End: 09-18-2023 Office outpatient visit 25 minutes Leonides Baker MD Work Phone: [facility] Comment on above: Atrial fibrillation with RVR (HCC) (Primary Dx); Syncope, unspecified syncope type; Orthostatic hypotension; Encounter for monitoring digoxin therapy; Hyperlipidemia, unspecified hyperlipidemia type; LEXIE (obstructive sleep apnea); Gastric bypass status for obesity; Varicose veins of both legs with edema; Impaired fasting glucose; Obesity, Class I, BMI 30-34.9 Start: 09-13-2023 End: 09-13-2023 Subsequent hospital visit by physician Xr [facility] [place] [facility] Work Phone: Radiology Comment on above: Other chronic pulmon naty embolism without acute cor pulmonale (HCC) [I27.82] Start: 08-01-2023 End: 08-01-2023 Patient encounter procedure Quincy Alonzo APRN.INSIDE FINISHER Work Phone: Psychiatry Comment on above: Recurrent major depr essive disorder, in partial remission (HCC) (Primary Dx); Generalized anxiety disorder; Chronic post-traumatic stress disorder (PTSD) Start: 07-11-2023 ambulatory FLORIAN Parra lity:[facility] Start: 07-11-2023 End: 07-11-2023 Subsequent hospital visit by physician Noel Bath [facility] Comment on above: Cervicalgia [M54.2] Start: 06-26-2023 Telephone encounter Quincy skinner APRN.CNP Work Phone: Psychiatry Comment on above: Appointment Start: 06-06-2023 End: 06-06-2023 Office outpatient visit 25 minutes Leonides Baker MD Work Phone: [facility] Comment on above: Atrial fibrillation with RVR [...] End: 05-17-2023 ambulatory Sofya Rodriguez PT, DPT [facility] Comment on above: Bursitis of other bu rsa of right hip Start: 05-15-2023 End: 05-15-2023 Office outpatient visit 25 minutes Jerry Kellogg DO Work Phone: [facility] Comment on above: Cervical spine pain (Primary Dx); Cervical spinal stenosis; Spondylolisthesis of cervical region; Cervical spondylosis; Cervical arthritis with myelopathy Start: 05-12-2023 End: 05-12-2023 Patient encounter procedure Florian Gonzalez MD Work Phone: [facility] [place] Comment on above: Medicare annual [facility] visit, subsequent (Primary Dx); Atrial fibrillation with RVR (HCC); BPH with urinary obstruction; superintendent terminal current use of anticoagulant; Bursitis of other bursa of right hip; Major depressive disorder, recurrent episode, moderate (HCC); Generalized anxiety disorder; Hyperlipidemia, unspecified hyperlipidemia type; Impaired fasting glucose; Cervicalgia Start: 02-24-2023 Refill Antnoio Stahl PA-C Work Phone: Urology Comment on above: Refill Request Start: 02-23-2023 End: 02-23-2023 Office outpatient visit 25 minutes Leonides Baker MD Work Phone: [facility] Comment on above: Atrial fibrillation with RVR [...] Phone: Internal [facility] [place] Comment on above: Cardiac Clearance; 1 04/24/2022 colon asc; open access Start: 01-31-2023 End: 01-31-2023 Patient encounter procedure Florian Gonzalez MD Work Phone: Internal Medicine [place] Comment on above: Edema of both legs ( Primary Dx); Tinea pedis of right foot; Special screening for malignant neoplasms, colon Start: 01-19-2023 End: 01-19-2023 ambulatory FLORIAN GONZALEZ [facility] Start: 01-19-2023 End: 01-19-2023 Office outpatient visit 15 minutes Toya Smith MD Work Phone: [facility] Comment on above: Arthritis of scaphoi r-nsvvqwszp-kselxofpx joint of left hand (Primary Dx); Primary osteoarthritis of first carpometacarpal joint of left hand Start: 12-21-2022 MyChart Refill CP Leonides almeida MD Work Phone: [facility] Comment on above: Medication Refill Ap proved Refill Request Start: 12-16-2022 Refill Leonides costa MD Work Phone: [facility] Comment on above: Refill Request Start: 12-09-2022 End: 12-09-2022 Subsequent hospital visit by physician Noel [facility] [place] Work Phone: Radiology Comment on above: Tibial pain [M89.8X6 ] Start: 12-09-2022 End: 12-09-2022 Patient encounter procedure Florian Gonzalez MD Work Phone: Internal Medicine [place] Comment on above: Tibial pain (Primary Dx); Idiosyncratic reaction to medication after proper dose, subsequent encounter; Pruritus Start: 11-22-2022 Telephone encounter Leonides osorio MD Work Phone: [facility] Comment on above: Refill Request Start: 11-18-2022 End: 11-18-2022 Patient encounter procedure Antonio Stahl PA-C Work Phone: Urology Comment on above: Balanitis; Urge incontinence of urine Start: 11-08-2022 End: 11-08-2022 Patient encounter procedure Florian Gonzalez MD Work Phone: Internal Medicine [place] Comment on above: Balanitis (Primary D x); Impaired fasting glucose; Hyperlipidemia, unspecified hyperlipidemia type; Generalized anxiety disorder; Major depressive disorder, recurrent episode, moderate (HCC); Urge incontinence of urine; LEXIE (obstructive sleep apnea) Start: 10-27-2022 End: 10-27-2022 ambulatory FLORIAN GONZALEZ [facility] Start: 10-12-2022 End: 10-13-2022 ambulatory [facility] Start: 10-12-2022 End: 10-12-2022 ambulatory Anabaptist Backporfirio MOY-C Work Phone: [facility] Comment on above: Arthritis of scaphoi g-lnsbjtwlt-wocgglsbi joint of left hand (Primary Dx) Start: 09-30-2022 End: 10-01-2022 ambulatory [facility] Start: 09-30-2022 End: 09-30-2022 Follow-up encounter Berenice MOY-C Work Phone: [facility] Comment on above: Arthritis of scaphoi c-kfevadkep-klxveplju joint of left hand (Primary Dx) Start: 09-27-2022 Refill Saida Guardado Work Phone: Psychiatry Comment on above: Refill Request Start: 09-21-2022 End: 09-22-2022 ambulatory ANGLICAN BACKER [facility] Start: 09-21-2022 End: 09-21-2022 Follow-up encounter Berenice Hanks PA-C Work Phone: [facility] Comment on above: Arthritis of scaphoi k-zltggjdnv-aaaficjlv joint of left hand (Primary Dx) Start: 09-14-2022 End: 09-15-2022 ambulatory FLORIAN GONZALEZ [facility] Start: 09-14-2022 End: 09-14-2022 Follow-up encounter Florian Gonzalez Work Phone: [facility] Comment on above: Arthritis of scaphoi t-gcpxqvqqp-hfdfescri joint of left hand (Primary Dx) Start: 09-07-2022 End: 09-08-2022 ambulatory FLORIAN GONZALEZ [facility] Start: 09-07-2022 End: 09-07-2022 ambulatory Anabaptist Backer PA-C Work Phone: [facility] Comment on above: Arthritis of scaphoi a-oyqtyjysd-edxziwpcz joint of left hand (Primary Dx) Start: 08-31-2022 End: 09-01-2022 ambulatory FLORIAN GONZALEZ [facility] Start: 08-24-2022 End: 08-25-2022 ambulatory FLORIAN GONZALEZ [facility] Start: 08-17-2022 End: 08-18-2022 ambulatory FLORIAN GONZALEZ [facility] Start: 08-17-2022 End: 08-17-2022 Follow-up encounter Berenice Mclainer PA-C Work Phone: [facility] Comment on above: Arthritis of scaphoi k-oioixxurj-naobtlkaw joint of left hand (Primary Dx) Start: 08-15-2022 End: 08-15-2022 Office outpatient visit 25 minutes Leonides Baker MD Work Phone: [facility] Comment on above: Atrial fibrillation with RVR (HCC) (Primary Dx); Impaired fasting glucose; Chronic combined systolic and diastolic congestive heart failure (HCC); 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); Other chronic pulmonary embolism without acute cor pulmonale (HCC) Start: 08-11-2022 End: 08-12-2022 ambulatory [facility] Start: 08-11-2022 End: 08-11-2022 Subsequent hospital visit by physician Toya Smith MD Work Phone: [facility] Comment on above: Left hand pain Start: 08-10-2022 End: 08-11-2022 ambulatory [facility] Start: 08-10-2022 End: 08-10-2022 Follow-up encounter Berenice Hanks PA-C Work Phone: [facility] Comment on above: Arthritis of scaphoi v-uigejhjin-ytqimhzwm joint of left hand (Primary Dx) Start: 08-03-2022 End: 08-04-2022 [facility] Start: 08-03-2022 End: 08-03-2022 Follow-up encounter Berenice Mclainer PA-C Work Phone: [facility] Comment on above: Arthritis of scaphoi k-uaqmbotyz-nsnavpzbr joint of left hand (Primary Dx) Start: 08-02-2022 Orders Only Berenice Mclain er PA-C Work Phone: [facility] Comment on above: Left hand pain (Prim naty Dx) Start: 07-20-2022 End: 07-21-2022 ambulatory [facility] Start: 07-20-2022 End: 07-20-2022 Follow-up encounter Berenice Mclainer PA-C Work Phone: [facility] Comment on above: Arthritis of scaphoi k-irixnncdi-ksfdjwdaz joint of left hand (Primary Dx) Start: 07-11-2022 End: 07-11-2022 ambulatory Berenice Hanks PA-C Work Phone: [facility] Comment on above: Arthritis of scaphoi g-ggyffiweu-fgbidhbqp joint of left hand Start: 07-11-2022 End: 07-11-2022 Postop follow up visit related to original px Berenice Hanks PA-C Work Phone: [facility] Comment on above: Arthritis of scaphoi o-pzbccumar-atqrkiqxn joint of left hand Start: 07-01-2022 Telephone encounter Berenice Hanks PA-C Work Phone: [facility] Comment on above: Medication Problem Start: 07-01-2022 End: 07-01-2022 [facility] Start: 07-01-2022 End: 07-01-2022 Subsequent hospital visit by physician Toya Smith MD Work Phone: [facility] Comment on above: Arthritis of scaphoi n-kwyvsvpfd-scqapwkmp joint of left hand (Primary Dx) Start: 06-28-2022 Refill Quincy boo APRN.CNP Work Phone: Psychiatry Comment on above: Refill Request Start: 06-24-2022 End: 06-24-2022 [facility] Start: 06-24-2022 End: 06-24-2022 Encounter for other preprocedural examination TOYA SMITH [facility] [employer] [facility] Start: 06-22-2022 Refill Leonides costa MD Work Phone: [facility] [employer] Comment on above: Refill Request Start: 06-21-2022 Refill Leonides costa MD Work Phone: [employer] Comment on above: Refill Request Start: 06-13-2022 End: 06-13-2022 Patient encounter procedure Floiran Gonzalez MD Work Phone: [facility] [place] Comment on above: Impacted cerumen, le ft ear (Primary Dx); Generalized anxiety disorder; Balanitis Start: 05-31-2022 ambulatory Anabaptist Back er PA-C Work Phone: [facility] Start: 05-26-2022 End: 05-26-2022 ambulatory TOYA SMITH [facility] Start: 05-26-2022 End: 05-26-2022 Office outpatient visit 25 minutes Toya Smith MD Work Phone: [facility] [employer] Comment on above: Arthritis of scaphoi j-twydoayrs-oqvukmjjp joint of left hand Start: 05-18-2022 End: 05-18-2022 Patient encounter procedure Quincy Alonzo APRN.INSIDE FINISHER Work Phone: Psychiatry Comment on above: Major depressive dis order, recurrent episode, moderate (HCC) (Primary Dx); LANA (generalized anxiety disorder); Chronic post-traumatic stress disorder (PTSD) Start: 05-09-2022 End: 05-09-2022 Patient encounter procedure Florian Gonzalez MD Work Phone: [facility] [place] Comment on above: Medicare annual well ness visit, subsequent (Primary Dx); Varicose veins of both legs with edema; Atrial fibrillation with RVR (HCC); Major depressive disorder, recurrent episode, moderate (HCC); Hyperlipidemia, unspecified hyperlipidemia type; Impaired fasting glucose; Vitamin D deficiency Start: 05-05-2022 Refill Quincy boo PRE OWNED SALES MANAGER.INSIDE FINISHER Work Phone: Neurology Comment on above: Refill Request Start: 05-04-2022 End: 05-04-2022 ambulatory PHIL LOBATO [facility] Start: 05-04-2022 End: 05-04-2022 Patient encounter procedure Phil Lobato MD Work Phone: [facility] [place] Comment on above: Wrist pain, left (Pr imary Dx); Primary osteoarthritis of left wrist Start: 05-02-2022 Orders Only Leonides costa MD Work Phone: [facility] [employer] Comment on above: Atrial fibrillation with RVR (HCC) (Primary Dx); Syncope, unspecified syncope type Refill Request Start: 04-28-2022 End: 04-29-2022 ambulatory TOYA SMITH [facility] Start: 04-28-2022 End: 04-28-2022 Office outpatient new 30 minutes Toya Smith MD Work Phone: [facility] Song Comment on above: Arthritis of scaphoi a-yjqhgfpft-lbzcjyuxm joint of left hand (Primary Dx) Start: 04-28-2022 End: 04-28-2022 Subsequent hospital visit by physician Toya Smith MD Work Phone: [facility] [employer] [place] [employer] Comment on above: Left wrist pain Start: 04-26-2022 Orders Only Leonides costa MD Work Phone: [facility] [employer] Comment on above: Atrial fibrillation with RVR (HCC) (Primary Dx); Chronic combined systolic and diastolic congestive heart failure (HCC); Atrial fibrillation, unspecified type (HCC) Left wrist pain (Christina maria teresa Dx) Start: 03-31-2022 Refill Leonides costa MD Work Phone: [facility] [employer] Comment on above: Refill Request Start: 03-28-2022 Telephone encounter Florian levi MD Work Phone: Internal Medicine [place] Comment on above: Covid Positive Start: 03-24-2022 Refill Florian castelan MD Work Phone: [facility] [place] Comment on above: Refill Request Start: 03-13-2022 End: 03-13-2022 [facility] Start: 03-10-2022 End: 03-10-2022 Patient encounter procedure Florian Gonzalez MD Work Phone: [facility] [place] Comment on above: Plantar fascial fibr omatosis of right foot (Primary Dx); Multiple hemangiomas Start: 02-24-2022 Refill Quincy boo PRE OWNED SALES MANAGER.INSIDE FINISHER Work Phone: Psychiatry Comment on above: Refill Request Start: 02-17-2022 Refill Leonides costa MD Work Phone: [facility] Comment on above: Refill Request Start: 02-11-2022 ambulatory [facility] an Unavailable Facility:[facility] Start: 02-11-2022 ambulatory Facility:[id number] Start: 02-04-2022 End: 02-05-[address] FLORIAN GONZALEZ MD. Facility:B Start: 02-04-2022 End: 02-04-2022 Patient encounter procedure MATT MARIE DO [facility] Start: 02-02-2022 End: 02-02-2022 Office outpatient visit 25 minutes Leonides Baker MD Work Phone: [facility] Comment on above: Atrial fibrillation with RVR (HCC) (Primary Dx); Hyperlipidemia, unspecified hyperlipidemia type; Syncope, unspecified syncope type; Orthostatic hypotension; Encounter for monitoring digoxin therapy; Major depressive disorder, recurrent episode, moderate (HCC) Start: 01-29-2022 End: 01-29-2022 Emergency department patient visit [facility] Start: 01-21-2022 Refill Quincy boo PRE OWNED SALES MANAGER.INSIDE FINISHER Work Phone: Psychiatry Comment on above: Refill Request Start: 01-03-2022 Telephone encounter Florian levi MD Work Phone: Internal Medicine [place] Comment on above: Patient Question Start: 12-30-2021 End: 12-30-2021 Patient encounter procedure Quincy Alonzo PRE OWNED SALES MANAGER.INSIDE FINISHER Work Phone: Psychiatry Comment on above: Major depressive dis order, recurrent episode, moderate (HCC) (Primary Dx); LANA (generalized anxiety disorder); Chronic post-traumatic stress disorder (PTSD) Start: 2021 ambulatory Leonides costa MD Work Phone: [facility] [employer] [facility] Comment on above: RE: ALBERTINA Start: 2021 E-mail encounter shelli segura caregiver Leonides Baker MD Work Phone: [facility] [employer] Start: 2021 End: 2021 Patient encounter procedure Qiuncy Alonzo APRN.INSIDE FINISHER Work Phone: Psychiatry Comment on above: Major depressive dis order, recurrent episode, moderate (HCC) (Primary Dx); LANA (generalized anxiety disorder); Chronic post-traumatic stress disorder (PTSD) Start: 11-26-2021 ambulatory Kusum Millan APRN.INSIDE FINISHER Work Phone: [employer] Comment on above: Question regarding N T PRO BNP Refill Request Start: 10-29-2021 End: 10-29-2021 Patient encounter procedure Reji Jitendra SEXER Work Phone: Psychology Comment on above: Moderate anxiety (Pr imary Dx); Moderate episode of recurrent major depressive disorder (HCC) Start: 10-12-2021 Telephone encounter Reji Na ll SEXER Work Phone: Psychology Comment on above: Consult ([facility] Pt Out reach F/U) Start: 10-07-2021 Telephone encounter Reji Na ll SEXER Work Phone: Psychology Comment on above: Consult ([facility] Return ed Pt's Vm) Start: 10-05-2021 End: 10-05-2021 Patient encounter procedure Kusum Millan APRN.INSIDE FINISHER Work Phone: [facility] [employer] [facility] Comment on above: Encounter for monito ring digoxin therapy (Primary Dx); Hyperlipidemia, unspecified hyperlipidemia type; Chronic combined systolic and diastolic congestive heart failure (HCC); Atrial fibrillation with RVR (HCC); Syncope, unspecified syncope type; Orthostatic hypotension; Exertional dyspnea Start: 10-04-2021 Telephone encounter Reji Na ll SEXER Work Phone: Psychology Comment on above: Consult (Initial [facility] W Pt Outreach) Start: 09-01-2021 Refill Leonides costa MD Work Phone: [facility] Comment on above: Refill Request Start: 08-13-2021 End: 08-13-2021 Patient encounter procedure Shea Van PRE OWNED SALES MANAGER.INSIDE FINISHER Work Phone: Internal Medicine [place] Comment on above: Orthostatic hypotens ion (Primary Dx); Impaired glucose metabolism; Frequent falls Start: 07-30-2021 Refill Florian castelan MD Work Phone: Internal Medicine [place] Comment on above: Refill Request Start: 07-27-2021 ambulatory Florian castelan MD Work Phone: Internal Medicine [facility] [place] Start: 06-30-2021 End: 06-30-2021 Emergency department patient visit [facility] Start: 03-12-2021 Patient encounter procedure [facility] Start: 09-27-2019 End: 09-27-2019 ambulatory [facility] Procedures Date Procedure Procedure Detail Performing Clinician Start: 10-22-2024 Urnls dip stick/tablet rgnt auto w/o microscopy Antonio Stahl PA-C Work Phone: Start: 10-09-2024 Radex spine lumbosacral 2/3 views Shea Etienne PRE OWNED SALES MANAGER.INSIDE FINISHER Work Phone: Start: 09-17-2024 Nitric oxide gas determination Josselin Maldonado MD Work Phone: Start: 09-17-2024 Co diffusing capacity Josselin meng MD Work Phone: Start: 07-22-[address] Florian Gonzalez MD Work Phone: Start: 05-28-2024 Radiologic exam chest 2 views Domo Granda PRE OWNED SALES MANAGER.CRYSTALLOGRAPHER Work Phone: Start: 05-27-2024 Radex shoulder complete minimum 2 views Jerry Rogeliobharath DO Work Phone: Start: 04-23-2024 Lipid 1996 panel - Serum or Plasma Quincy Alonzo PRE OWNED SALES MANAGER.INSIDE FINISHER Work Phone: Start: 05-15-2023 Radex spine cervical [...] DTaP,Tdap,Td Vaccine (4 - Td or Tdap) [facility] Start: 02-22-2033 Screening for malignant neoplasm of colon [facility] Start: 04-20-2030 Screening for malignant neoplasm of colon [facility] Start: 04-23-2029 Lipid panel Lipid Screening [facility] Start: 05-09-2028 Lipid panel Lipid Screening [facility] Start: 05-10-2027 Lipid 1996 panel - Serum or Plasma Lipid Screening [facility] Start: 05-10-2027 LIPID SCREEN LIPID SCREEN [facility] Start: 04-23-2027 Diabetes Screening Diabetes Screening [facility] Start: 05-09-2026 Diabetes Screening Diabetes Screening [facility] Start: 04-12-2026 LIPID SCREEN LIPID SCREEN [facility] Start: 02-22-2026 Colonoscopy Colonoscopy [facility] Start: 02-22-2026 Colorectal Cancer Screening Colorectal Cancer Screening [facility] Start: 02-22-2026 Screening for malignant neoplasm of colon [facility] Start: 12-09-2025 DIABETES SCREEN DIABETES SCREEN [facility] Start: 12-09-2025 Diabetes Screening Diabetes Screening [facility] Start: 11-11-2025 Annual PCP Team Chronic Disease Visit Annual PCP Team Chronic Disease Visit [facility] Start: 10-28-2025 End: 10-28-2025 Patient encounter procedure 10/28/2025 2:15 PM EDT Office Visit Urology [address] [place] [address] Antonio Stahl PA-C [address] [place] [address] 1 YR F/U Urology Comment on above: 1 YR F/U Start: 10-09-2025 Annual PCP Team Chronic Disease Visit Annual PCP Team Chronic Disease Visit [facility] Start: 08-29-2025 Annual PCP Team Chronic Disease Visit Annual PCP Team Chronic Disease Visit [facility] Start: 05-14-2025 End: 05-14-2025 Patient encounter procedure 05/14/2025 8:40 AM EST Office Visit [facility] [place] [address] [place] [address] Florian Gonzalez MD [address] [place] [address] medicare wellness 6 months [facility] [place] Comment on above: medicare wellness 6 months Start: 05-13-2025 Annual PCP Team Chronic Disease Visit Annual PCP Team Chronic Disease Visit [facility] Start: 05-13-2025 Urine microalbumin profile DTaP,Tdap,Td Vaccine (3 - Td or Tdap) [facility] Comment on above: Postponed from 03/24/2024 (Declined at t his time) Start: 05-10-2025 DIABETES SCREEN DIABETES SCREEN [facility] Start: 04-28-2025 End: 07-28-2025 CBC panel - Blood by Automated count COMPLETE BLOOD COUNT Lab Routine Orthostatic hypotension Atrial fibrillation with RVR (HCC) Chronic combined systolic and diastolic congestive heart failure (HCC) Expected: 04/28/2025 (Approximate), Expires: 07/28/2025 [facility] Comment on above: Expected: 04/28/2025 (Approximate), Expi res: 07/28/2025 Start: 04-28-2025 End: 07-28-2025 Comprehensive metabolic 2000 panel - Serum or Plasma COMPREHENSIVE METABOLIC PANEL Lab Routine Hyperlipidemia, unspecified hyperlipidemia type Expected: 04/28/2025 (Approximate), Expires: 07/28/2025 [facility] Comment on above: Expected: 04/28/2025 (Approximate), Expi res: 07/28/2025 Start: 04-28-2025 End: 07-28-2025 Hemoglobin A1c in Blood HEMOGLOBIN A1C Lab Routine Impaired fasting glucose Expected: 04/28/2025 (Approximate), Expires: 07/28/2025 [facility] Comment on above: Expected: 04/28/2025 (Approximate), Expi res: 07/28/2025 Start: 04-28-2025 End: 07-28-2025 Lipid 1996 panel - Serum or Plasma LIPID PANEL, FASTING Lab Routine Hyperlipidemia, unspecified hyperlipidemia type Expected: 04/28/2025 (Approximate), Expires: 07/28/2025 [facility] Work Phone: Comment on above: Expected: 04/28/2025 (Approximate), Expi res: 07/28/2025 Start: 01-21-2025 End: 01-21-2025 Patient encounter procedure 01/21/2025 1:30 PM EDT Office Visit Psychiatry [address] [place] [address] Quincy Alonzo, PRE OWNED SALES MANAGER.INSIDE FINISHER [address] [place] [address] Psychiatry Start: 01-03-2025 End: 01-03-2025 Patient encounter procedure 01/03/2025 1:00 PM EDT Office Visit Pulmonary Medicine [address] [place] [id number] Gemma Tesfaye APRN.INSIDE FINISHER [address] [place] [address] 2 month f/u Pulmonary Medicine Comment on above: 2 month f/u Start: 12-09-2024 Influenza vaccination Influenza Vaccine (#1) [facility] Start: 11-20-2024 End: 11-20-2024 Patient encounter procedure 11/20/2024 10:30 AM EDT Office Visit Pulmonary Medicine [address] [place] [address] Gemma Tesfaye, PRE OWNED SALES MANAGER.INSIDE FINISHER [address] [place] [address] 2 month f/u Pulmonary Medicine Comment on above: 2 month f/u Start: 11-19-2024 End: 11-19-2024 Patient encounter procedure 11/19/2024 9:00 AM EDT Office Visit Psychiatry [address] [place] [phone] Quincy Alonzo, PRE OWNED SALES MANAGER.INSIDE FINISHER [address] [place] [phone] R/S from VV issues on 09/23/24. Patient requested in office visit Psychiatry Comment on above: R/S from VV issues on 09/23/24. Patient r equested in office visit Start: 11-12-2024 End: 11-12-2024 Patient encounter procedure 11/12/2024 9:00 AM EDT Office Visit Psychiatry [address] [place] [address] Quincy Alonzo, PRE OWNED SALES MANAGER.INSIDE FINISHER [address] [place] [phone] R/S from VV issues on 09/23/24. Patient requested in office visit Psychiatry Comment on above: R/S from VV issues on 09/23/24. Patient r equested in office visit Start: 11-11-2024 End: 11-11-2024 Patient encounter procedure 11/11/2024 8:00 AM EDT Office Visit Internal Medicine [place] [address] [place], [place] [address] Shea Etienne, PRE OWNED SALES MANAGER.INSIDE FINISHER [address] [place], [place] [address] follow up 6 months Internal Medicine [place] Comment on above: follow up 6 months Start: 11-09-2024 Annual PCP Team Chronic Disease Visit Annual PCP Team Chronic Disease Visit [facility] Start: 10-22-2024 End: 10-22-2024 Patient encounter procedure Urology Comment on above: Foamy urine and frequency YEARLY: Urge inconti nence of urine/Balanitis DOMINIC 02/21/23; Foamy urine and frequency. [facility] Start: 10-08-2024 End: 10-08-2024 Patient encounter procedure 10/08/2024 11:00 AM EDT Office Visit Psychiatry [address] [place] [phone] Quincy Alonzo, PRE OWNED SALES MANAGER.INSIDE FINISHER [address] [place] [phone] Provider ordered sooner follow up Psychiatry Comment on above: Provider ordered sooner follow up Start: 09-24-2024 End: 09-24-2024 Patient encounter procedure 09/24/2024 11:00 AM EDT Office Visit Psychiatry [address] [place] [phone] Quincy Alonzo, PRE OWNED SALES MANAGER.INSIDE FINISHER [address] [place] [address] Psychiatry Start: 09-23-2024 End: 09-23-2024 ambulatory 09/23/2024 10:30 AM EDT [facility] Psychiatry [address] [place] [address] Quincy Alonzo PRE OWNED SALES MANAGER.INSIDE FINISHER [address] [place] [address] Psychiatry Start: 09-17-2024 End: 09-17-2024 Patient encounter procedure 09/17/2024 12:45 PM EDT Office Visit Pulmonary Medicine [address] [place] [id number] Josselin Maldonado MD [address] [place] [address] 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) [J44.9] Pulmonary Medicine Comment on above: 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) [J44.9] Start: 09-17-2024 End: 09-17-2024 ambulatory [facility] Comment on above: 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) [J44.9] Start: 09-13-2024 End: 12-13-2024 Bacteria identified in Urine by Culture [facility] Work Phone: Comment on above: Expected: 09/13/2024, Expires: Start: 08-03-2024 DIABETES SCREEN DIABETES SCREEN [facility] Start: 07-22-2024 [facility] Start: 07-02-2024 End: 07-02-2024 Patient encounter procedure 07/02/2024 2:30 PM EDT Office Visit Psychiatry [address] [place] [phone] Quincy Alonzo, PRE OWNED SALES MANAGER.INSIDE FINISHER [address] [place] [address] follow up Psychiatry Comment on above: follow up Start: 06-10-2024 End: 06-10-2024 [facility] 06/10/2024 2:00 PM EST [facility] Psychiatry [address] [place] [phone] Quincy Alonzo, PRE OWNED SALES MANAGER.INSIDE FINISHER [address] [place] [phone] Provider Ordered follow up Psychiatry Comment on above: Provider Ordered follow up Start: 06-07-2024 Covid-19 Vaccine ( season) Covid-19 Vaccine () [facility] Start: 05-28-2024 End: 05-28-2024 Patient encounter procedure 05/28/2024 2:30 PM EST Office Visit Psychiatry [address] [place] [phone] Quincy Alonzo, PRE OWNED SALES MANAGER.INSIDE FINISHER [address] [place] [address] 7 mo follow up Psychiatry Comment on above: 7 mo follow up Start: 05-27-2024 End: 05-27-2024 Patient encounter procedure 05/27/2024 11:30 AM EST Office Visit [facility] [address] [place] [phone] Jerry Kellogg DO [address] [facility] [address] [place] [address] Arrived [facility] Comment on above: Arrived Start: 05-13-2024 End: 05-13-2024 Patient encounter procedure 05/13/2024 8:00 AM EST Office Visit [facility] [place] [address] [facility] [place] [address] Shea Etienne, PRE OWNED SALES MANAGER.INSIDE FINISHER [address] [place] [address] 6 month follow up-Medicare Wellness [facility] Medicine [place] Comment on above: 6 month follow up-Medicare Wellness Start: 05-12-2024 End: 08-11-2024 25-hydroxyvitamin D3 [Mass/volume] in Serum or Plasma VITAMIN D 25 HYDROXY Lab Routine Vitamin D deficiency Expected: 05/12/2024, Expires: 08/11/2024 [facility] Comment on above: Expected: 05/12/2024, Expires: Start: 05-12-2024 Annual PCP Team Chronic Disease Visit Annual PCP Team Chronic Disease Visit [facility] Start: 05-12-2024 End: 08-11-2024 CBC panel - Blood by Automated count COMPLETE BLOOD COUNT Lab Routine Atrial fibrillation with RVR (HCC) Expected: 05/12/2024, Expires: 08/11/2024 [facility] Work Phone: Comment on above: Expected: 05/12/2024, Expires: Start: 05-12-2024 End: 08-11-2024 Comprehensive metabolic 2000 panel - Serum or Plasma COMPREHENSIVE METABOLIC PANEL Lab Routine Hyperlipidemia, unspecified hyperlipidemia type Expected: 05/12/2024, Expires: 08/11/2024 [facility] Comment on above: Expected: 05/12/2024, Expires: Start: 05-12-2024 End: 08-11-2024 Hemoglobin A1c in Blood HEMOGLOBIN A1C Lab Routine Impaired fasting glucose Expected: 05/12/2024, Expires: 08/11/2024 [facility] Comment on above: Expected: 05/12/2024, Expires: Start: 05-12-2024 End: 08-11-2024 Lipid 1996 panel - Serum or Plasma LIPID PANEL BASIC Lab Routine Hyperlipidemia, unspecified hyperlipidemia type Expected: 05/12/2024, Expires: 08/11/2024 [facility] Comment on above: Expected: 05/12/2024, Expires: Start: 05-05-2024 DIABETES SCREEN DIABETES SCREEN [facility] Start: 05-01-2024 End: 05-01-2024 ambulatory 05/01/2024 9:30 AM [facility] [employer] [address] [facility] [address] [place] [address] [place] [address] [facility] [address] [place] [address] [employer] Comment on above: [employer] Start: 04-10-2024 Advance Directive Discussion Advance Directive Discussion [facility] Start: 03-24-2024 DTaP/Tdap/Td Vaccines (3 - Td or Tdap) DTaP/Tdap/Td Vaccines (3 - Td or Tdap) [facility] Start: 03-24-2024 DTaP/Tdap/Td Vaccines (4 - Td or Tdap) DTaP/Tdap/Td Vaccines (4 - Td or Tdap) [facility] Start: 03-24-2024 Urine microalbumin profile [facility] Start: 03-19-2024 End: 03-19-2024 ambulatory [facility] Comment on above: [employer] Start: 02-01-2024 Annual PCP Team Chronic Disease Visit Annual PCP Team Chronic Disease Visit [facility] Start: 12-10-2023 ANNUAL PCP TEAM CHRONIC DISEASE VISIT ANNUAL PCP TEAM CHRONIC DISEASE VISIT [facility] Start: 12-10-2023 Covid-19 Vaccine ( season) Covid-19 Vaccine () [facility] Start: 12-10-2023 Influenza vaccination Influenza Vaccine (#1) [facility] Start: 11-10-2023 End: 11-10-2023 Patient encounter procedure 11/10/2023 9:00 AM EDT Office Visit Internal Medicine [place] [address] [facility] [place] [address] Florian Gonzalez MD [address] [place] [address] 6 month follow up [facility] Medicine [place] Comment on above: 6 month follow up Start: 11-09-2023 ANNUAL PCP TEAM CHRONIC DISEASE VISIT ANNUAL PCP TEAM CHRONIC DISEASE VISIT [facility] Start: 10-31-2023 End: 10-31-2023 Patient encounter procedure Psychiatry Comment on above: 3 Month Follow-Up Start: 09-18-2023 End: 09-18-2023 Patient encounter procedure 09/18/2023 8:30 AM EDT Office Visit [facility], [facility] [address] [place] [address] [place] [address] [facility] [address] [place] [address] 37REG VISIT [facility], [facility] Comment on above: 37REG VISIT Start: 06-14-2023 ANNUAL PCP TEAM CHRONIC DISEASE VISIT ANNUAL PCP TEAM CHRONIC DISEASE VISIT [facility] Start: 05-15-2023 End: 05-15-2024 MR Cervical spine WO contrast MR cervical spine wo contrast Imaging Routine Spondylolisthesis of cervical region Cervical spondylosis Expected: 05/15/2023, Expires: 05/15/2024 [facility] Work Phone: Comment on above: Expected: 05/15/2023, Expires: 5 Start: 05-11-2023 End: 07-11-2023 CBC panel - Blood by Automated count CBC Lab Routine Hyperlipidemia, unspecified hyperlipidemia type Expected: 05/11/2023, Expires: 07/11/2023 [facility] Work Phone: Comment on above: Expected: 05/11/2023, Expires: Start: 05-11-2023 End: 07-11-2023 Comprehensive metabolic 2000 panel - Serum or Plasma COMP METABOLIC PANEL Lab Routine Hyperlipidemia, unspecified hyperlipidemia type Expected: 05/11/2023, Expires: 07/11/2023 [facility] Work Phone: Comment on above: Expected: 05/11/2023, Expires: 4 Start: 05-11-2023 End: 07-11-2023 Hemoglobin A1c in Blood HGB A1C Lab Routine Impaired fasting glucose Expected: 05/11/2023, Expires: 07/11/2023 [facility] Work Phone: Comment on above: Expected: 05/11/2023, Expires: 4 Start: 05-11-2023 End: 07-11-2023 Lipid 1996 panel - Serum or Plasma LIPID PANEL BASIC Lab Routine Hyperlipidemia, unspecified hyperlipidemia type Expected: 05/11/2023, Expires: 07/11/2023 [facility] Work Phone: Comment on above: Expected: 05/11/2023, Expires: Start: 05-09-2023 ANNUAL PCP TEAM CHRONIC DISEASE VISIT ANNUAL PCP TEAM CHRONIC DISEASE VISIT [facility] Start: 04-20-2023 Colonoscopy COLONOSCOPY [facility] Start: 04-20-2023 COLORECTAL CANCER SCREENING COLORECTAL CANCER SCREENING [facility] Start: 03-10-2023 ANNUAL PCP TEAM CHRONIC DISEASE VISIT ANNUAL PCP TEAM CHRONIC DISEASE VISIT [facility] Start: 02-23-2023 End: 05-25-2023 DIGOXIN/LANOXIN DIGOXIN/LANOXIN Lab Routine Atrial fibrillation with RVR (HCC) 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) Atrial fibrillation, unspecified type (HCC) Expected: 02/23/2023, Expires: 05/25/2023 [employer] Work Phone: Comment on above: Expected: 02/23/2023, Expires: Start: 02-23-2023 End: 05-25-2023 Natriuretic peptide.B prohormone N-Terminal [Mass/volume] in Serum or Plasma NT PRO BNP Lab Routine Atrial fibrillation with RVR (HCC) 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) Atrial fibrillation, unspecified type (HCC) Expected: 02/23/2023, Expires: 05/25/2023 [employer] Work Phone: Comment on above: Expected: 02/23/2023, Expires: Start: 01-31-2023 ANNUAL PCP TEAM CHRONIC DISEASE VISIT ANNUAL PCP TEAM CHRONIC DISEASE VISIT [facility] Start: 12-09-2022 Influenza vaccination [facility] Start: 10-27-2022 End: 10-27-2022 Patient encounter procedure [facility] Start: 10-12-2022 End: 10-12-2022 ambulatory 10/12/2022 3:30 PM EDT Evaluation [facility] at [address] [place] [address] Rosa Jameson, OT [facility] Start: 10-01-2022 ANNUAL PCP TEAM CHRONIC DISEASE VISIT ANNUAL PCP TEAM CHRONIC DISEASE VISIT [facility] Start: 09-30-2022 End: 09-30-2022 Follow-up encounter 09/30/2022 12:00 PM EDT Follow-Up [facility] at [address] [place] [address] Mohinder Rodriguez OT [facility] Start: 09-28-2022 End: 09-28-2022 Follow-up encounter 09/28/2022 10:30 AM EDT Follow-Up [facility] [address] [place] [address] Ana Tran OTA [facility] Start: 09-21-2022 End: 09-21-2022 Follow-up encounter [facility] Start: 09-14-2022 End: 09-14-2022 Follow-up encounter 09/14/2022 Follow-Up Occupational Therapy Rosa Jameson OT [facility] at [facility] Start: 09-07-2022 End: 09-07-2022 ambulatory 09/07/2022 Evaluation Occupational Therapy Rosa Jameson OT [facility] Start: 08-31-2022 End: 08-31-2022 Follow-up encounter 08/31/2022 Follow-Up Occupational Therapy Rosa Jameson OT [facility] Start: 08-24-2022 End: 08-24-2022 Follow-up encounter 08/24/2022 Follow-Up Occupational Therapy Rosa Jameson OT [facility] Start: 08-17-2022 End: 08-17-2022 Follow-up encounter [facility] Start: 08-13-2022 ANNUAL PCP TEAM CHRONIC DISEASE VISIT ANNUAL PCP TEAM CHRONIC DISEASE VISIT [facility] Start: 08-11-2022 End: 08-11-2022 Patient encounter procedure [facility] Start: 08-10-2022 End: 08-10-2022 Follow-up encounter 08/10/2022 Follow-Up Occupational Therapy Rosa Jameson OT [facility] Start: 08-03-2022 End: 08-03-2022 Follow-up encounter [facility] Start: 08-02-2022 End: 08-03-2023 XR Hand - left 3 Views XR hand 3+ views left Imaging Routine Left hand pain Expected: 08/02/2022, Expires: 08/03/2023 [facility] Work Phone: Comment on above: Expected: 08/02/2022, Expires: Start: 07-27-2022 End: 07-27-2022 Follow-up encounter [facility] at [facility] Start: 07-20-2022 End: 07-20-2022 Follow-up encounter [facility] Start: 07-11-2022 End: 07-11-2022 ambulatory 07/11/2022 Evaluation Occupational Therapy Berenice Hanks PA-C [address] [facility] [address] [place] [address] Rosa Jameson OT [facility] Start: 07-11-2022 End: 07-11-2022 Patient encounter procedure 07/11/2022 Office Visit Orthopedic Surgery Berenice Hanks PA-C [address] [facility] [address] [place] [address] [facility] Start: 07-01-2022 End: 07-01-2022 Admission to same day surgery center 07/01/2022 Surgery Procedural Toya Smith MD [address] [facility] [address] [place] [address] Left thumb carpometacarpal arthroplasty with partial excision trapezoid [82476 (CPT )] [facility] MAIN OR Comment on above: Left thumb carpometacarpal arthroplasty with partial excision trapezoid [34051 (CPT )] Start: 07-01-2022 End: 07-01-2022 Arthrp interpos intercarpal/metacarpal joints ARTHROPLASTY INTERPOSITION INTERCARPAL OR CARPOMETACARPAL JOINTS Primary osteoarthritis, left wrist 07/01/2022 12:[address] [facility] Operating Room Start: 07-01-2022 End: 07-01-2022 Arthrp interpos intercarpal/metacarpal joints ARTHROPLASTY INTERPOSITION INTERCARPAL OR CARPOMETACARPAL JOINTS Primary osteoarthritis, left wrist 07/01/2022 10:[address] [facility] Operating Room Start: 07-01-2022 Subsequent hospital visit by physician 07/01/2022 Hospital Encounter Procedural Toya Smith MD [address] [facility] [address] [place] [address] [facility] MAIN OR Start: 06-24-2022 End: 06-24-2022 Admission to establishment 06/24/2022 Pre-Admission Testing Pre-Admission Testing [facility] Pre-Admit Testing Start: 05-18-2022 PROSTATE CANCER SCREENING DISCUSSION PROSTATE CANCER SCREENING DISCUSSION [facility] Start: 05-10-2022 End: 07-10-2022 25-hydroxyvitamin D3 [Mass/volume] in Serum or Plasma VITAMIN D 25 HYDROXY Lab Routine Vitamin D deficiency Expected: 05/10/2022, Expires: 07/10/2022 [facility] Work Phone: Comment on above: Expected: 05/10/2022, Expires: 3 Start: 05-10-2022 End: 07-10-2022 CBC panel - Blood by Automated count CBC Lab Routine Atrial fibrillation with RVR (HCC) Expected: 05/10/2022, Expires: 07/10/2022 [facility] Work Phone: Comment on above: Expected: 05/10/2022, Expires: 3 Start: 05-10-2022 End: 07-10-2022 Comprehensive metabolic 2000 panel - Serum or Plasma COMP METABOLIC PANEL Lab Routine Hyperlipidemia, unspecified hyperlipidemia type Expected: 05/10/2022, Expires: 07/10/2022 [facility] Work Phone: Comment on above: Expected: 05/10/2022, Expires: 3 Start: 05-10-2022 End: 07-10-2022 Lipid 1996 panel - Serum or Plasma LIPID PANEL BASIC Lab Routine Hyperlipidemia, unspecified hyperlipidemia type Expected: 05/10/2022, Expires: 07/10/2022 [facility] Work Phone: Comment on above: Expected: 05/10/2022, Expires: Start: 05-05-2022 ANNUAL PCP TEAM CHRONIC DISEASE VISIT ANNUAL PCP TEAM CHRONIC DISEASE VISIT [facility] Start: 05-04-2022 End: 05-04-2022 Patient encounter procedure 05/04/2022 Office Visit Sports Medicine Phil Lobato MD [address] [facility] [address] [place], [place] [id number] [facility] [place] Start: 04-28-2022 COVID-19 Vaccine (5 - Pfizer series) COVID-19 Vaccine (5 - Pfizer series) [facility] Start: 04-28-2022 End: 04-28-2022 Patient encounter procedure 04/28/2022 Office Visit Orthopedic Surgery Toya Smith MD [address] [facility] [address] [place], [place] [address] [facility] [place] Start: 04-26-2022 End: 04-26-2023 XR Wrist - left 3 Views XR wrist 3+ views left Imaging Routine Left wrist pain Expected: 04/26/2022, Expires: 04/26/2023 [facility] Work Phone: Comment on above: Expected: 04/26/2022, Expires: Start: 04-10-2022 ADVANCE DIRECTIVE DISCUSSION ADVANCE DIRECTIVE DISCUSSION [facility] Start: 03-05-2022 End: 05-05-2022 DIGOXIN/LANOXIN DIGOXIN/LANOXIN Lab Routine Atrial fibrillation with RVR (HCC) Hyperlipidemia, unspecified hyperlipidemia type Syncope, unspecified syncope type Orthostatic hypotension Expected: 03/05/2022 (Approximate), Expires: 05/05/2022 [facility] Work Phone: Comment on above: Expected: 03/05/2022 (Approximate), Expi res: 05/05/2022 Start: 12-09-2021 Influenza vaccination INFLUENZA (#1) [facility] Start: 10-07-2021 End: 12-07-2021 Natriuretic peptide.B prohormone N-Terminal [Mass/volume] in Serum or Plasma NT PRO BNP Lab Routine Exertional dyspnea Expected: 10/07/2021, Expires: 12/07/2021 [employer] Work Phone: Comment on above: Expected: 10/07/2021, Expires: 2 Start: 10-05-2021 End: 12-05-2021 DIGOXIN/LANOXIN DIGOXIN/LANOXIN Lab Routine Encounter for monitoring digoxin therapy Expected: 10/05/2021, Expires: 12/05/2021 [employer] Work Phone: Comment on above: Expected: 10/05/2021, Expires: 2 Start: 07-27-2021 End: 09-26-2021 Magnesium [Mass/volume] in Serum or Plasma MAGNESIUM BLD Lab Routine Medication management Expected: 07/27/2021, Expires: 09/26/2021 [facility] Work Phone: Comment on above: Expected: 07/27/2021, Expires: 2 Start: 07-27-2021 End: 09-26-2021 SCHEDULE LAB TESTING SCHEDULE LAB TESTING Lab Routine Expected: 07/27/2021, Expires: 09/26/2021 [facility] Work Phone: Comment on above: Expected: 07/27/2021, Expires: 2 Start: 04-10-2021 ADVANCE DIRECTIVE DISCUSSION ADVANCE DIRECTIVE DISCUSSION [facility] Start: 03-10-2020 Screening for malignant neoplasm of colon [facility] Start: 1997 COLOGUARD (FIT-DNA) COLOGUARD (FIT-DNA) [facility] Start: [address] COLONOGRAPHY [facility] Start: 1997 FECAL OCCULT BLOOD FECAL OCCULT BLOOD [facility] Start: 1997 Screening for malignant neoplasm of colon [facility] Start: 1997 SIGMOIDOSCOPY SIGMOIDOSCOPY [facility] Start: 11-03-1994 Hepatitis B Vaccines (3 of 3 - 19+ 3-dose series) Hepatitis B Vaccines (3 of 3 - 19+ 3-dose series) [facility] Start: 11-03-1994 Hepatitis B Vaccines (3 of 3 - 3-dose series) Hepatitis B Vaccines (3 of 3 - 3-dose series) [facility] Start: 1982 Zoledronic acid therapy ALPHA-1 ANTITRYPSIN DEFICIENCY SCREENING [facility] Start: 1970 Diabetes mellitus screening Diabetes Screening [facility] Start: 1970 Hepatitis C screening Hepatitis C Screening [facility] Start: 1964 Depresssion Monitoring Depresssion Monitoring [facility] Start: 1958 PNEUMOCOCCAL: 65+ (1 - PCV) PNEUMOCOCCAL: 65+ (1 - PCV) [facility] Start: 1952 Creatinine measurement Creatinine Level [facility] Start: 1952 Echocardiography Echocardiogram [facility] Start: 1952 Lipid panel Lipid Panel [facility] Start: 1952 Medicare Advantage Annual Wellness Visit (AWV) Medicare Advantage Annual Wellness Visit (AWV) [facility] Start: 1952 Potassium measurement Potassium Level [facility] Start: 1952 Screening for malignant neoplasm of colon [facility] End: 11-08-2025 CT Head WO contrast CT BRAIN WO IVCON Radiology STAT Injury of head, initial encounter Fall, initial encounter shelter (current) use of anticoagulants 1 Occurrences starting 10/09/2024 until 11/08/2025 [facility] Work Phone: Comment on above: 1 Occurrences starting 10/09/2024 until 11/08/2025 Doppler echocard pul se wave w/spectral display DOPPLER ECHO HEART,COMPLETE Cardiology Routine Atrial fibrillation with RVR (HCC) Chronic combined systolic and diastolic congestive heart failure (HCC) Atrial fibrillation, unspecified type (HCC) Ordered: 04/26/2022 [employer] Work Phone: Comment on above: Ordered: 04/26/2022 Doppler echocard pul se wave w/spectral display DOPPLER ECHO HEART,COMPLETE Cardiology Routine Atrial fibrillation with RVR (HCC) Syncope, unspecified syncope type Ordered: 05/02/2022 [employer] Work Phone: Comment on above: Ordered: 05/02/2022 ECG B/O W INTERP (ME D OFFICE) ECG B/O W INTERP (MED OFFICE) ECG Routine Atrial fibrillation with RVR (HCC) Ordered: 02/02/2022 [employer] Work Phone: Comment on above: Ordered: 02/02/2022 ECG B/O W INTERP (ME D OFFICE) ECG B/O W INTERP (MED OFFICE) ECG Routine Atrial fibrillation with RVR (HCC) Ordered: 08/15/2022 [employer] Work Phone: Comment on above: Ordered: 08/15/2022 ECG B/O W INTERP (ME D OFFICE) ECG B/O W INTERP (MED OFFICE) ECG Routine Atrial fibrillation with RVR (HCC) Ordered: 02/23/2023 [employer] Work Phone: Comment on above: Ordered: 02/23/2023 ECG B/O W INTERP (ME D OFFICE) ECG B/O W INTERP (MED OFFICE) ECG Routine Atrial fibrillation with RVR (HCC) Syncope, unspecified syncope type 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) Ordered: 06/06/2023 [employer] Work Phone: Comment on above: Ordered: 06/06/2023 ECG B/O W INTERP (ME D OFFICE) ECG B/O W INTERP (MED OFFICE) ECG Routine Atrial fibrillation with RVR (HCC) Syncope, unspecified syncope type Orthostatic hypotension Hyperlipidemia, unspecified hyperlipidemia type Ordered: 09/18/2023 [employer] Work Phone: Comment on above: Ordered: 09/18/2023 Echo tthrc r-t 2d w/wom-mode compl spec&colr d TTE W/DOPPLER, COMPLETE Procedures Routine Atrial fibrillation with RVR (HCC) Hyperlipidemia, unspecified hyperlipidemia type Syncope, unspecified syncope type Orthostatic hypotension Ordered: 02/02/2022 [employer] Work Phone: Comment on above: Ordered: 02/02/2022 Echo tthrc r-t 2d w/wom-mode compl spec&colr d TTE W/DOPPLER, COMPLETE Procedures Routine Atrial fibrillation with RVR (HCC) 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) Atrial fibrillation, unspecified type (HCC) Ordered: 02/23/2023 [employer] Work Phone: Comment on above: Ordered: 02/23/2023 Patient Education [facility] Work Phone: Patient referral [facility] Work Phone: POST VOID RESIDUAL POST VOID RES IDUAL Procedures Routine Balanitis Urge incontinence of urine Ordered: 11/18/2022 [facility] Work Phone: Comment on above: Ordered: 11/18/2022 POST VOID RESIDUAL POST VOID RES IDUAL Procedures Routine Urge incontinence of urine Screening for genitourinary condition Ordered: 10/22/2024 [facility] Work Phone: Comment on above: Ordered: 10/22/2024 End: 09-14-2023 Radiologic exam chest 2 views XR CHEST 2V FRONTAL/LAT Radiology Routine Other chronic pulmonary embolism without acute cor pulmonale (HCC) 1 Occurrences starting 08/15/2022 until 09/14/2023 [employer] Work Phone: Comment on above: 1 Occurrences starting 08/15/2022 until 09/14/2023 Removal impacted cer umen irrigation/lvg unilat AMBULATORY EAR LAVAGE/IRRIGATION Procedures Routine Impacted cerumen, left ear Ordered: 06/13/2022 [facility] Work Phone: Comment on above: Ordered: 06/13/2022 End: 02-01-2024 Screening colonoscopy COLONOSCOPY SCREENING Endoscopy Routine Special screening for malignant neoplasms, colon 1 Occurrences starting 01/31/2023 until 02/01/2024 [facility] Work Phone: Comment on above: 1 Occurrences starting 01/31/2023 until 02/01/2024 XR Chest PA and Lateral XR CHEST 2V FRONTAL/LAT Radiology Routine Other chronic pulmonary embolism without acute cor pulmonale (HCC) 09/13/2023 3:47 PM EDT [facility] Work Phone: End: 08-11-2022 XR Hand - left 3 Views [facility] Work Phone: Comment on above: Once for 1 Occurrences starting 08/12/19 until 08/11/2022 End: 01-08-2024 XR TIBIA FIBULA 2V AP/LAT RIGHT XR TIBIA FIBULA 2V AP/LAT RIGHT Radiology Routine Tibial pain 1 Occurrences starting 12/09/2022 until 01/08/2024 [facility] Work Phone: Comment on above: 1 Occurrences starting 12/09/2022 until 01/08/2024 XR TIBIA FIBULA 2V A P/LAT RIGHT XR TIBIA FIBULA 2V AP/LAT RIGHT Radiology Routine Tibial pain 12/09/2022 3:04 PM EDT [facility] Work Phone: End: 04-28-2022 XR Wrist - left 3 Views [facility] [employer] [employer] Work Phone: Comment on above: Once for 1 Occurrences starting 04/28/19 until 04/28/2022 [facility] Immunizations Immunization Date Immunization Notes Care Provider [facility] 07-22-2024 tetanus toxoid, redu rio diphtheria toxoid, and acellular pertussis vaccine, adsorbed Dr. Florian Gonzalez MD Work Phone: [facility] 12-06-2023 influenza virus vacc ine, unspecified formulation Jenn Vidales RN Work Phone: [facility] 12-24-2022 influenza virus vacc ine, unspecified formulation Leonides Baker MD Work Phone: [facility] 12-27-2021 COVID-19 booster vaccine, age 12+ yr, bivalent (BraveNewTalentNTECH) Quincy Clinton [employer] Work Phone: [facility] 12-27-2021 Influenza, High-dose Seasonal, Quadrivalent, Preservative Free Toya Smith MD Work Phone: [facility] 12-27-2021 influenza virus vacc ine, unspecified formulation Rosa Jameson OT [facility] 08-04-2021 Covid-19, Pfizer Gra y Top, Do Not Dilute, (Age 12 Y+), Im, L Toya Smith MD Work Phone: [facility] 02-17-2021 Covid (Moderna) [facility] 12-16-2020 influenza (aIIV4) vaccine, age 65+ yr, quadrivalent, PF (FLUAD QUADRIVALENT) Florian Gonzalez MD Work Phone: [facility] Work Phone: 12-16-2020 Influenza, high dose seasonal Dr. Florian Gonzalez MD Work Phone: [facility] 12-16-2020 influenza, high dose seasonal, preservative-free [facility] Work Phone: 07-08-2020 Covid (Pfizer) [facility] 06-16-2020 Covid (Pfizer) [facility] 12-19-2019 influenza, injectabl e, quadrivalent, preservative free Florian Gonzalez MD Work Phone: [facility] Work Phone: 12-19-2019 influenza, seasonal, injectable [facility] Work Phone: 11-05-2019 zoster vaccine recombinant [facility] Work Phone: 06-14-2019 pneumococcal polysaccharide vaccine, 23 valent [facility] 05-28-2019 zoster vaccine recombinant [facility] Work Phone: 02-07-2019 influenza, injectabl e, quadrivalent, preservative free Florian Gonzalez MD Work Phone: [facility] Work Phone: 02-07-2019 influenza, seasonal, injectable [facility] Work Phone: 03-19-2018 pneumococcal conjuga te vaccine, 13 valent [facility] Work Phone: 12-21-2017 Influenza, high dose seasonal Dr. Florian Gonzalez MD Work Phone: [facility] 12-21-2017 influenza, high dose seasonal, preservative-free [facility] Work Phone: 02-13-2017 influenza, injectabl e, quadrivalent, preservative free Dr. Florian Gonzalez MD Work Phone: [facility] 02-13-2017 influenza, seasonal, injectable [facility] Work Phone: 02-13-2017 influenza, seasonal, injectable, preservative free Florian Gonzalez MD Work Phone: [facility] Work Phone: 02-01-2016 influenza, injectabl e, quadrivalent, preservative free Florian Gonzalez MD Work Phone: [facility] Work Phone: 02-01-2016 influenza, seasonal, injectable [facility] Work Phone: 01-08-2015 influenza, injectabl e, quadrivalent, contains preservative Florian Gonzalez MD Work Phone: [facility] 01-08-2015 influenza, injectabl e, quadrivalent, preservative free Dr. Florian Gonzalez MD Work Phone: [facility] 01-08-2015 influenza, seasonal, injectable [facility] Work Phone: 01-06-2015 influenza, seasonal, injectable Toya Smith MD Work Phone: [facility] 03-24-2014 tetanus toxoid, redu rio diphtheria toxoid, and acellular pertussis vaccine, adsorbed [facility] 01-01-2014 influenza, injectabl e, quadrivalent, preservative free Dr. Florian Gonzalez MD Work Phone: [facility] 01-01-2014 influenza, seasonal, injectable [facility] Work Phone: 02-08-2013 zoster vaccine, live Florian Gonzalez MD Work Phone: [facility] 01-07-2013 influenza virus vacc ine, unspecified formulation Florian Gonzalez MD Work Phone: [facility] 01-11-2012 influenza, seasonal, injectable Toya Smith MD Work Phone: [facility] 12-22-2010 influenza, seasonal, injectable Toya Smith MD Work Phone: [facility] 05-24-2010 tetanus toxoid, redu rio diphtheria toxoid, and acellular pertussis vaccine, adsorbed Florian Gonzalez MD Work Phone: [facility] Work Phone: 01-28-2010 pneumococcal polysaccharide vaccine, 23 valent Florian Gonzalez MD Work Phone: [facility] 01-25-2010 influenza virus vacc ine, unspecified formulation Florian Gonzalez MD Work Phone: [facility] 01-30-2009 novel influenza-H1N1 -09, preservative-free, injectable [facility] Work Phone: 12-15-2008 influenza, seasonal, injectable Toya Smith MD Work Phone: [facility] 12-15-2008 novel influenza-H1N1 -09, all formulations Florian Gonzalez MD Work Phone: [facility] Work Phone: 01-10-2008 influenza, seasonal, injectable Toya Smith MD Work Phone: [facility] 10-06-2003 tetanus and diphther ia toxoids, adsorbed, preservative free, for adult use (2 Lf of tetanus toxoid and 2 Lf of diphtheria toxoid) Florian Gonzalez MD Work Phone: [facility] Work Phone: 09-08-1994 hepatitis B vaccine, adult dosage Florian Gonzalez MD Work Phone: [facility] Work Phone: 04-12-1994 hepatitis B vaccine, adult dosage Florian Gonzalez MD Work Phone: [facility] Work Phone: Payers Date Payer Category Payer Medicare [id number] 2024 Self-pay [id number] 2024 Medicare (Managed Care) [id number] 2022 Medicaid [employer] MEDICARE ADVANTAGE [id number] 2022 Medicare [id number] 2022 [facility]ly [facility] [id number] 2021 Medicare UHC AARP MEDICAR E [facility] MEDICARE O [id number] 2021-Present [phone] [address] [address] [place] [address] O [id number] 2018 Private Health Insurance [id number] 2017 Medicare [id number] 2017 Medicare [id number] 2004 Government (not [facility] care or Medicaid) [place]KAR[place] [facility] [place] Address: [address], [address] [address] [id number] 2004 Unknown [facility] ERIN [facility] [id number] 2004-Present [phone] [place] [address] [facility] [place] [id number] 2004 Unknown [facility] ERIN [facility] [id number] 2004-Present [phone] [place] [address] [facility] [place] [id number] 2004 Unknown [id number] 2004 Worker's Compensation ERIN sol [id number] 2004 Unknown [id number] 1950 Unknown [id number] 1950 Unknown [id number] 1952 Unknown [id number] [id number] 1952 Unknown [id number] 1952 Unknown [id number] 1950 Unknown [id number] Unknown [id number] [id number] Unknown [id number] Unknown [id number] Unknown [id number] Social History Date Type Detail Facility Start: 06-30-2021 End: 03-13-2022 Tobacco smoking status NHIS Unknown if ever smoked [employer] Phone: Start: 07-21-2020 None [facility] Start: 07-21-2020 Alone [facility] Start: 1950 Sex Assigned At Male C [facility] Start: 03-10-2022 End: 07-22-2024 Tobacco smoking status NHIS Never smoked tobacco [facility] Start: 05-05-2021 End: 10-09-2024 Alcohol intake Current non-drinker of alcohol (finding) [facility] Start: 05-05-2021 End: 03-08-2022 History SDOH Alcohol Frequency 1 [facility] Start: 05-02-2021 History SDOH Alcohol Std Drinks 98 [facility] Start: 05-02-2021 End: 03-08-2022 History SDOH Social Connections Phone 5 [facility] Start: 05-02-2021 End: 03-08-2022 History SDOH Social Connections Get Together 3 [facility] Start: 05-02-2021 End: 03-08-2022 History SDOH Social Connections Membership 2 [facility] Start: 09-20-2021 End: 08-11-2022 Exposure to SARS-CoV-2 (event) Not sure [facility] Tobacco smoking status No Smokin g Status Entered [facility] Start: 03-10-2022 End: 04-28-2022 Tobacco use and exposure Smokeless tobacco non-user [facility] Work Phone: Start: 03-08-2022 History SDOH Alcohol Std Drinks 0 [facility] Start: 03-08-2022 History SDOH Social Connections Phone 4 [facility] Start: 07-01-2022 End: 11-19-2024 Alcohol intake Ex-drinker (finding) [facility] Start: 1950 Sex Assigned At Not on file [facility] [place] Start: 08-11-2022 End: 05-01-2024 History of Social function [facility] Start: 08-11-2022 End: 05-01-2024 Tobacco use panel [facility] Do you belong to any clubs or organizations such as sikh groups, unions, fraternal or athletic groups, or school groups? No [facility] Are you now , , , , never or living with a partner? [facility] How often to you hav e a drink containing alcohol? Never [facility] Start: 03-11-[address] inks containing alcohol do you have on a typical day? Patient does not drink [facility] How hard is it for y ou to pay for the very basics like food, housing, medical care, and heating Somewhat hard [facility] Do you feel stress - tense, restless, nervous, or anxious, or unable to sleep at night because your mind is troubled all the time - these days [OSQ] Only a little [facility] (I/We) worried wheth er (my/our) food would run out before (I/we) got money to buy more. Never true [facility] Start: 01-20-2019 Gender identity Identifies as male gender (finding) [facility] Start: 01-20-2019 Sexual orientation Homosexual (findi ng) [facility] How hard is it for y ou to pay for the very basics like food, housing, medical care, and heating Not very hard [facility] Do you feel stress - tense, restless, nervous, or anxious, or unable to sleep at night because your mind is troubled all the time - these days [OSQ] Very much [facility] Start: 07-22-2024 Sex Male (finding) [facility] Do you feel stress - tense, restless, nervous, or anxious, or unable to sleep at night because your mind is troubled all the time - these days [OSQ] To some extent [facility] (I/We) worried wheth er (my/our) food would run out before (I/we) got money to buy more. Sometimes true [facility] Medical Equipment Procedure Code Equipment Code Equipment Origin al Text Equipment Identifier Dates Strip Scleral Buckle - [id number] Start: 10-08-2009 Comment on above: Description: #4050 S TRIP IMPLANTED OD Sleeve Oval Iraida Style72 92-30 - [id number] Start: 10-08-2009 Comment on above: Description: #72 SLE PAULETTE IMPLANTED OD Gas Sf6 - [id number] Start: 10-08-2009 Comment on above: Description: SF6 100 % IMPLANTED OD Slv Scler 30mm 2.4mm 1.5mm Iraida - [id number] Start: 08-06-2013 Strip Retin 5mm [id number] Iraida - [id number] Start: 08-06-2013 Gas Io Ispan Crankshaft Grinder tl 125gm C3f8 - [id number] Start: 08-06-2013 Gas Io Ispan Crankshaft Grinder tl 125gm C3f8 - [id number] Start: 09-03-2013 Lens Iol +7.5 Di op 13mm 6mm Pc - [id number] Start: 05-22-2014 Lens Iol 0 D +7 Jenni 3 Cyl 13 - [id number] Start: 06-26-2014 Laser Rental - [id number] Start: 05-24-2011 Mesh Vicryl [id number] Vkml - [id number] Start: 06-30-2010 Stent Bard Inlay 7x28 [id number] - [id number] Start: 01-30-2010 Comment on above: Description: BARD IN LAY URETERAL STENT Stent Uret 7fr 28cm W/O Gw Inl - [id number] Start: 05-02-2012 Comment on above: Description: Bard in lay optima ureteral stent Kit Suspension Fiberlock - [id number] Start: 07-01-2022 Functional Status Date Assessment Result Facility 11-10-2024 Total score [AUDIT-C] 0 11/11/19 8:46 PM EDT User, Sudarshan [facility] 11-10-2024 How often to you hav e a drink containing alcohol? Never 11/10/2024 8:46 PM EDT User, Mycjamest Never [facility] 11-10-2024 Functional status Patient does n ot drink 11/10/2024 8:46 PM EDT User, Sudarshan Patient does not drink [facility] 11-10-2024 How often do you hav e 6 or more drinks on 1 occasion? Never 11/10/2024 8:46 PM EDT User, Normajamest Never [facility] 11-05-2018 Are you deaf, or do you have serious difficulty hearing No 11/05/2018 5:33 PM EDT Jon Lemus RN No [facility] 11-05-2018 Are you blind, or do you have serious difficulty seeing, even when wearing glasses No 11/05/2018 5:33 PM EDT Jon Lemus RN No [facility] 11-05-2018 Do you have serious difficulty walking or climbing stairs No 11/05/2018 5:33 PM EDT Jon Lemus RN No [facility] 11-05-2018 Do you have difficul ty dressing or bathing No 11/05/2018 5:33 PM EDT Jon Lemus RN No [facility] 11-05-2018 Because of a physica l, mental, or emotional condition, do you have difficulty doing errands alone such as visiting a physician's office or shopping No 11/05/2018 5:33 PM EDT Jon Lemus RN No [facility] Mental Status Date Assessment Result Facility 03-13-2022 Cognitive function Level Of Cons ciousness Awake;Alert;Appropriate;Fol lows Commands [facility] Work Phone: 01-29-2022 Cognitive function Level Of Cons ciousness Awake;Alert [facility] Work Phone: 06-30-2021 Cognitive function Level Of Cons ciousness Awake;Alert;Appropriate;Fol lows Commands [facility] Work Phone: 11-05-2018 Because of a physica l, mental, or emotional condition, do you have serious difficulty concentrating, remembering, or making decisions No 11/05/2018 5:33 PM EDT Jon Lemus RN No [facility] Clinical Notes 11-02-2018 to 12-25-2024 Patient InstructionsQuincy Alonzo APRN.INSIDE FINISHER - 11/19/2024 9:13 AM EDTPatient Shea Ernandez, PRE OWNED SALES MANAGER.INSIDE [employer]ISHER - 11/11/2024 8:22 AM Antonio Fu PA-C - 10/22/2024 2:16 PM EDT Note Date & Type Note Facility 12-25-2024 Note HNO ID: [id number] Author: ILA PRESLEY APRN.INSIDE FINISHER Service: ? Author Type: Nurse Practitioner Type: [...] depressed mood hosp 95' Arthritis Atrial fibrillation ([facility]) 11/03/2009 s/p ablation, on coumadin, OFF now. 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 [...] of organic origin Iron deficiency anemia 08/02/2012 shelter current use of anticoagulant 02/09/2015 Major depressive disorder, recurrent episode, moderate ([facility]) 07/01/2009 Morbid obesity ([facility]) 04/21/2009 stated BMI 51.1 Ht: 75 Wt: [...] in joint, multiple sites neck, shoulders Pericarditis ([facility]) 07/04/2012 Post Mini Maze procedure Treated with Indomethacin (Inpatient), Toradol PO and Prednisone taper on discharge. Currently chest pain free; Talked with cardiology - said no need for treatment is patient is treatment free Plan: Continue to monitor Postsurgical dumping syndrome 08/30/2012 Pulmonary embolism ([facility]) 03/01/2010 Retinal detachment OD Syncope 11/02/2018 Torn rotator cuff Upper GI bleed 07/03/2012 Hx: UGIB presenting to OSH on 06/29 with Melanotic stool; EGD showed jejunal pouch ulcers and dieulafoy lesion which were clipped and injected Given IV PPI Assessment: UGI 2/2 to Dieulafoy and NSAID induced ulcers. Plan: Monitor HANDH Q8H, transfuse as necessary, (more content not included)... [facility] 12-25-2024 Note HNO ID: [id number] Author: LOUIE WATSON RT(R) Service: ? Author Type: 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 Type: Progress Notes Filed: 12/25/2024 11:03 Note [...] PATIENT PRESENTS WITH AN IMPLANTABLE OR ATTACHED ELECTROTYPER HELPER: No RADIOLOGY DEPARTMENT: General X-ray: Exam(s) Completed: Rib X-Ray: Left Spine X-Ray(s): Thoracic PERIPHERAL IV DATA: Not applicable SIGNED BY: RT Elena(R) December 25, 2024 11:02 AM [facility] 12-10-2024 Note HNO ID: [id number] Author: ISA ALONSO, PhD Service: ? Author Type: Psychologist Type: Progress Notes Filed: 12/10/2024 11:09 Note Text: [facility] Department Progress Note Orion Dumont 12/10/2024 [id number] PROVIDER: Isa Alonso, PhD CPT Code: Time: 50 minutes Setting: Patient seen in person Parties Present: Patient Treatment Modality/Interventions: Cognitive Behavioral Reassurance/Supportive Insight oriented Problem solving Processing of emotions Psychoeducation MENTAL STATUS: Mood: variable Affect: mood-congruent Thoughts/Associations:goal directed Suicidal/Homicidal Ideation: None expressed or evidenced Other Prominent Symptoms: Therapy Focus/Content of Session: Self-care, Stress management, Mood/affect regulation, Interpersonal, and Self-esteem [employer] and [employer] etc have been hacked and some money [...] beyond what he can do 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 With each meal. Gpbmo4-NcsA7-Z24-E-FA-Fish Oil [phone] cg-vj-sxs-mcg cap Take 600 mg by mouth once daily. pyridoxine (VITAMIN B-6) 100 mg tablet Take 2 tablets by mouth twice daily. docusate sodium 100 mg capsule Take 1 capsule by mouth twice daily as needed for Constipation. No current facility-administered medications for this visit. Psychiatric Medication Issues: No change from previous appointment DIAGNOSIS: [place] I: LANA r/o PTSD Depression Adjustment, mix [place] II: deferred [place] III: see med record [place] IV: life situation and early history [place] V: 48-53 TREATMENT PROGRESS/ASSESSMENT: Fluctuating progress. TREATMENT PLAN/GOALS: Continue in therapy focusing on self-care, interpersonal relationships, stress management, affect management, anxiety management, and self-esteem. Next appointment: as scheduled Isa Alonso, PhD [facility] 11-19-2024 Instructions Quincy Alonzo, PRE OWNED SALES MANAGER.[facility] - 11/19/2024 9:48 AM EDT We discussed [...] the National Suicide Prevention Lifeline at 988 (697.495.4567) --text the Crisis Text Line (text HOME to 564234) --call 911 and let them know you are having a mental health crisis or go to your nearest Emergency Room for stabilization. --You can also call Mobile Crisis at [phone]. -- You may call the department appointment line at [phone] to schedule your appointment. -- Please call my nurse at [phone] or send me a message in [employer] with any questions or concerns between appointments. documented in this encounter [facility] 11-19-2024 Note HNO ID: [id number] Author: QUINCY ALONZO APRN.CNP Service: ? Author Type: Nurse Practitioner Type: Progress Notes Filed: 11/19/2024 09:47 Note Text: FOLLOW UP - PSYCHIATRIC PROGRESS NOTE Visit Type:In person Recording using Virtual Call Center software for draft documentation of the visit was discussed with the patient/authorized service support representative; all questions welcomed and answered. Patient/authorized service support representative agreed to proceed CC: Outpatient follow-up [...] and might need to go to a fpc or assisted living. Another sister had a [...] 07/01/2009 GI bl (more content not included)... [facility] 11-19-2024 History of Presen t illness Narrative Images from the original note were not included. FOLLOW UP - PSYCHIATRIC PROGRESS NOTE Visit Type:In person Recording using Virtual Call Center software for draft documentation of the visit was discussed with the patient/authorized service support representative; all questions welcomed and answered. Patient/authorized service support representative agreed to proceed CC: Outpatient follow-up [...] and might need to go to a fpc or assisted living. 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 Treated with [...] AC, [place] has DVT (deep venous thrombosis) ([facility]) 01/12/2010 S/P IVC filter, occurred post-op, on anticoagulation (for a fib) Eating disorder, unspecified 07/01/2009 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 Essential hypertension, benign Fatty liver 11/03/2009 by us Gall stones, common bile duct 12/07/2013 Generalized anxiety disorder 07/01/2009 GI bleed 06/29/2012 Hip joint replacement by other means 09/21/2012 Hyperlipidemia 08/25/2020 Impaired fasting glucose 05/05/2021 Impotence of organic origin Iron deficiency anemia 08/02/2012 shelter current use of anticoagulant 02/09/2015 Major depressive disorder, recurrent episode, moderate ([facility]) 07/01/2009 Morbid obesity ([facility]) 04/21/2009 stated BMI 51.1 Ht: 75 Wt: [...] in joint, multiple sites neck, shoulders Pericarditis ([facility]) 07/04/2012 Post Mini Maze procedure Treated with Indomethacin (Inpatient), Toradol PO and Prednisone taper on discharge. Currently chest pain free; Talked with cardiology - said no need for treatment is patient is treatment free Plan: Continue to monitor Postsurgical dumping syndrome 08/30/2012 Pulmonary embolism ([facility]) 03/01/2010 Retinal detachment OD Syncope 11/02/2018 Torn [...] twice daily with meals. With each meal. Qwyrx8-OqiU1-I33-E-FA-Fish Oil [phone] il-ps-jab-mcg cap Take 600 mg by mouth once [...] TIME: 9:14 AM documented in this encounter [facility] 11-11-2024 Shea Ho APRN.RAJAN - 11/11/2024 8:23 AM EDT - Your [...] have been placed. documented in this encounter [facility] 11-11-2024 Note HNO ID: [id number] Author: SHEA ETIENNE APRN.RAJAN Service: ? Author Type: Nurse Practitioner Type: Progress Notes Filed: 11/11/2024 08:28 Note Text: CC: No chief complaint on file. HPI Recording using Virtual Call Center software for draft documentation of the visit was discussed with the patient/authorized service support representative; all questions welcomed and answered. Patient/authorized service support representative agreed to proceed Greg Dumont is [...] of organic origin Iron deficiency anemia 08/02/2012 [address] current use of anticoagulant 02/09/2015 Major depressive [...] on 06/29 with (more content not included)... [facility] 11-11-2024 History of Presen t illness Narrative CC: No chief complaint on file. HPI Recording using Virtual Call Center software for draft documentation of the visit was discussed with the patient/authorized service support representative; all questions welcomed and answered. Patient/authorized service support representative agreed to proceed Greg Dumont is [...] coumadin, OFF now. 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 Currently chest pain free; Talked with cardiology - said no need for treatment is patient is treatment free Plan: Continue to monitor Postsurgical dumping syndrome 08/30/2012 Pulmonary embolism ([facility]) 03/01/2010 Retinal detachment OD Syncope 11/02/2018 Torn [...] twice daily with meals. With each meal. Waivs5-XjzD5-O04-E-FA-Fish Oil [phone] rw-pr-oep-mcg cap Take 600 mg by mouth once [...] Patient agreeable to treatment plan. Shea Etienne APRN.CNP documented in this encounter [facility] 10-25-2024 Note HNO ID: [id number] Author: ISA ALONSO, PhD Service: ? Author Type: Psychologist Type: Progress Notes Filed: 10/25/2024 12:19 Note Text: [facility] Department Progress Note Orion Dumont 10/25/2024 [id number] PROVIDER: Isa Alonso, PhD CPT Code: Time: [...] twice daily with meals. With each meal. Cgnil9-LrwV0-N25-E-FA-Fish Oil [phone] li-pl-jct-mcg cap Take 600 mg by mouth once daily. pyridoxine (VITAMIN B-6) 100 mg tablet Take 2 tablets by mouth twice daily. docusate sodium 100 mg capsule Take 1 capsule by mouth twice daily as needed for Constipation. No current facility-administered medications for this visit. Psychiatric Medication Issues: see med record DIAGNOSIS: [place] I: LANA r/o PTSD Depression Adjustment, mix [place] II: deferred [place] III: see med record [place] IV: life situation and early history [place] V: 48-53 TREATMENT PROGRESS/ASSESSMENT: Fluctuating progress. TREATMENT PLAN/GOALS: Continue in therapy focusing on self-care, interpersonal relationships, stress management, affect management, anxiety management, trauma recovery, and self-esteem. Next appointment: as scheduled Isa Alonso, PhD [facility] 10-22-2024 Note HNO ID: [id number] Author: ANTONIO STAHL PA-C Service: ? Author Type: Physician Car Scrubber Type: Progress Notes Filed: 11/11/2024 17:17 Note Text: [facility] EST PATIENT CLINIC NOTE (M) Some elements copied from his previous note, which have been updated where appropriate, and all reflect current medical decision making from date of this visit. Note was generated by [employer] and edited as appropriate SERVICE DATE: [...] twice daily with meals. With each meal. Jxgew6-XyoU2-X07-E-FA-Fish Oil [id number] kw-ln-oma-mcg cap Take 600 mg by mouth once [...] q 8h T (more content not included)... [facility] 10-22-2024 History of Presen t illness Narrative Images from the original note were not included. [facility] EST PATIENT CLINIC NOTE (M) Some elements copied from his previous note, which have been updated where appropriate, and all reflect current medical decision making from date of this visit. Note was generated by [employer] and edited as appropriate SERVICE DATE: November [...] twice daily with meals. With each meal. Egihb0-YakT3-K09-E-FA-Fish Oil [phone] tu-cu-axp-mcg cap Take 600 mg by mouth once [...] of organic origin Iron deficiency anemia 08/02/2012 shelter current use of anticoagulant 02/09/2015 Major depressive [...] month at a time. Prescription sent to [facility] for mail order. 2. Urge incontinence of [...] refill authorization has been sent to your [facility] mail-order pharmacy. - Apply the 45 g [...] Appointment with Antonio. documented in this encounter [facility] 10-22-2024 Note HNO ID: [id number] Author: ADIN PLEITEZ LPN Service: ? Author Type: LICENSED NURSE Type: Progress Notes Filed: 11/11/2024 17:17 Note Text: Verified name and date of . CC Post Void Residual HPI: Orion Dumont is a 73 year old male. The patient is here now for an appointment with BEARTIS Jerome MT, PA-COV. Procedure: Explained procedure to patient and verbalizes understanding. Performed a PVR. Patient urinated and instructed to empty bladder as much as possible just prior to having PVR done using bladder ultrasound scanner. Results of scan: 0 mL The patient tolerated the procedure well. Plan: Appointment with Antonio. [facility] 10-15-2024 Note HNO ID: [id number] Author: JENN VIDALES RN Service: ? Author Type: Registered Nurse Type: Progress Notes Filed: 10/15/2024 13:47 Note Text: [facility] Telephonic Outreach Provider Action/FYI Declines to get CT scan that was ordered due to cost. Reports he feels better but still having pain. Suggested he should get CT scan to make sure he has no problems. Offered to have addiction social worker call for possible assistance. He declines addiction social worker consult for financial assistance at this time. Reinforced to call office or healthy at home for a referral if he changes his mind. 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 Patient identified by Name and Date [...] ADLs, Fall Risk, SDOH 08/19/2024 07/18/2024 Jenn Vidalse RN Complete Assessments No documentation this encounter [...] Vidales RN October 15, 2024 1:30 PM [facility] 10-15-2024 History of Presen t illness Narrative Images from the original note were not included. [facility] Teleph[facility] Outreach Provider Action/FYI Declines to get CT scan that was ordered due to cost. Reports he feels better but still having pain. Suggested he should get CT scan to make sure he has no problems. Offered to have addiction social worker call for possible assistance. He declines addiction social worker consult for financial assistance at this time. [...] 2024 1:30 PM documented in this encounter [facility] 10-15-2024 Note Patient Outreach ([facility] ORION DUMONT ([id number]) 1950 M Date Time Provider Department 10/15/24 JENN VIDALES [facility] During your visit today, we recorded the following information about you: Jenn Vidales RN 10/15/2024 1:47 PM Signed [facility] Telephonic Outreach Provider Action/FYI Declines to get CT scan that was ordered due to cost. Reports he feels better but still having pain. Suggested he should get CT scan to make sure he has no problems. Offered to have addiction social worker call for possible assistance. He declines addiction social worker consult for financial assistance at this time. [...] Date Reviewed: 10/09/2024 Reviewed by: Shea Etienne APRN.INSIDE FINISHER - Fully Assessed Prescriptions as of 10/15/2024 [...] mg-5 mcg (2 (more content not included)... [facility] 10-10-2024 Telephone encounter Note Patient evaluated in office, 10/09/2024 See Office notes. Teri Cummings LPN [facility] 10-10-2024 Miscellaneous Notes Patient evaluated in office, 10/09/2024 See Office notes. Teri Cummings LPN Patient scheduled with me today for a fall on Monday in which he hit his head and back. He is on a blood thinner and is at high risk for brain bleed, he should be evaluated in the ER Shea Etienne APRN.INSIDE FINISHER documented in this encounter [facility] 10-09-2024 History of Presen t illness Narrative [...] PATIENT PRESENTS WITH AN IMPLANTABLE OR ATTACHED ELECTROTYPER HELPER: No RADIOLOGY DEPARTMENT: General X-ray: Exam(s) Completed: Spine X-Ray(s): Lumbar AP / LAT / L5-S1 Upper Extremity X-Ray(s): Shoulder, AP / TRUE AP bilateral Scapular Y PERIPHERAL IV DATA: Not applicable SIGNED BY: RT Elena(Courtney) October 09, 2024 6:37 PM documented in this encounter [facility] 10-09-2024 Note HNO ID: [id number] Author: LOUIE WATSON RT(R) Service: ? Author Type: 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 Type: Progress Notes Filed: 10/09/2024 18:37 Note [...] PATIENT PRESENTS WITH AN IMPLANTABLE OR ATTACHED ELECTROTYPER HELPER: No RADIOLOGY DEPARTMENT: General X-ray: Exam(s) Completed: Spine X-Ray(s): Lumbar AP / LAT / L5-S1 Upper Extremity X-Ray(s): Shoulder, AP / TRUE AP bilateral Scapular Y PERIPHERAL IV DATA: Not applicable SIGNED BY: RT Elena(Courtney) October 09, 2024 6:37 PM [facility] 10-09-2024 History of Presen t illness Narrative Images from the original note were not included. CC: Patient presents with: Fall: X 5 days : lower back pain, bilateral shoulders HPI Recording using Virtual Call Center software for draft documentation of the visit was discussed with the patient/authorized service support representative; all questions welcomed and answered. Patient/authorized service support representative agreed to proceed Greg Dumont is a 73-year-old male, with a history of arthritis and on anticoagulation therapy, presenting for evaluation of head, back, and shoulder pain following a fall. Greg reports a fall that occurred on Monday night at approximately 1630 while assisting his sister, who was recently discharged from a fpc. During the incident, his sister's knees began [...] of organic origin Iron deficiency anemia 08/02/2012 shelter current use of anticoagulant 02/09/2015 Major depressive [...] twice daily with meals. With each meal. Bqpdw3-AhxM2-A17-E-FA-Fish Oil [phone] am-pt-lqs-mcg cap Take 600 mg by mouth once [...] to be performed tomorrow at the specialty center building on [facility]. - Advised patient to monitor for [...] use of topical analgesics as needed. 4. superintendent terminal (current) use of anticoagulants (Z79.01) Patient is on long-term anticoagulant therapy, increasing the risk for bleeding complications following trauma. - Monitor for signs of bleeding, particularly intracranial hemorrhage. I spent a total of 30 minutes on the date of the service which included preparing to see the patient, nzkx-np-qtnc patient care, completing clinical documentation, performing a medically appropriate examination, counseling and educating the patient/family/caregiver, and ordering medications, tests, or procedures. Prescription instructions reviewed with patient as applicable. Potential red flag symptoms discussed with the patient. Reviewed appropriate action plan to take if red flag symptoms occur. Patient agreeable to treatment plan. Shea Etienne APRN.RAJAN documented in this encounter [facility] 10-09-2024 Instructions Shea Etienne APRN.RAJAN - 10/09/2024 [...] for tomorrow at the specialty center on [facility]. - Please call a few hours after your CT scan to request the results. We discussed pain management: - I prescribed hydrocodone, which has been sent to your preferred [facility] pharmacy. - Do not take Tylenol while [...] medical attention immediately. documented in this encounter [facility] 10-09-2024 Note HNO ID: [id number] Author: SHEA ETIENNE APRN.INSIDE FINISHER Service: ? Author Type: Nurse Practitioner Type: Progress Notes Filed: 10/09/2024 18:14 Note Text: CC: Patient presents with: Fall: X 5 days : lower back pain, bilateral shoulders HPI Recording using ambient Ex[employer]a software for draft documentation of the visit was discussed with the patient/authorized service support representative; all questions welcomed and answered. Patient/authorized service support representative agreed to proceed Greg Dumont is a 73-year-old male, with a history of arthritis and on anticoagulation therapy, presenting for evaluation of head, back, and shoulder pain following a fall. Greg reports a fall that occurred on Monday night at approximately 1630 while assisting his sister, who was recently discharged from a fpc. During the incident, his sister's knees began [...] of organic origin Iron deficiency anemia 08/02/2012 shelter current use of anticoagulant 02/09/2015 Major depressive [...] (osteoarthritis) Orthostatic hypotension (more content not included)... [facility] 10-09-2024 Telephone encounter Note Triage Protocol Advised: [...] was walking with his sister at a fpc, her knees buckled and she fell onto [...] swelling or redness anywhere Protocols used: Head Lqmzxk-[id number]-BH [facility] 10-09-2024 Miscellaneous Notes Triage Protocol Advised: ER [...] was walking with his sister at a fpc, her knees buckled and she fell onto [...] swelling or redness anywhere Protocols used: Head Pxhxku-EUIMJ-DO documented in this encounter [facility] 10-09-2024 Telephone encounter Note Patient scheduled with me today for a fall on Monday in which he hit his head and back. He is on a blood thinner and is at high risk for brain bleed, he should be evaluated in the ER Shea Etienne APRN.INSIDE FINISHER [facility] 10-09-2024 Note HNO ID: [id number] Author: MILLY BERMAN MA Service: ? Author Type: Records Technician Type: Progress Notes Filed: 10/09/2024 15:30 Note [...] / pended orders: Follow-Up Appointment 10/09/2024 in [facility] with SHEA ETIENNE - fell on Sat and hit his head and back 10/22/2024 in [facility] with ANTONIO STAHL - Foamy urine and frequency 10/25/2024 in [facility] with ISA ALONSO - Major depressive disorder, recurrent episode, moderate (HCC) [F33.1]; Generalized anxiety disorder [F41.1] 11/11/2024 in [facility] with SHEA ETIENNE - follow up 6 months 11/12/2024 in [facility] with QUINCY ALONZO R/S from VV issues on 09/23/24. Patient requested in office visit 11/20/2024 in [facility] with GEMMA TESFAYE 2 month f/u Navigation Signature: Milly Berman MA October 09, 2024 3:29 PM [facility] 10-09-2024 History of Presen t illness Narrative POPULATION HEALTH NAVIGATION OUTREACH Action/FYI Patient returned [...] pended orders: Follow-Up Appointment 10/09/2024 in [facility] with SHEA ETIENNE M - fell on Sat and hit his head and back 10/22/2024 in [facility] with ANTONIO STAHL - Foamy urine and frequency 10/25/2024 in [facility] with ISA ALONSO - Major depressive disorder, recurrent episode, moderate (HCC) [F33.1]; Generalized anxiety disorder [F41.1] 11/11/2024 in [facility] with SHEA ETIENNE - follow up 6 months 11/12/2024 in [facility] with QUINCY ALONZO J - R/S from VV issues on 09/23/24. Patient requested in office visit 11/20/2024 in [facility] with GEMMA TESFAYE 2 month f/u Navigation Signature: Milly Berman MA October 09, 2024 3:29 PM POPULATION HEALTH NAVIGATION OUTREACH Action/I Left message for patient as phone went [...] emotional support given. Last Sat at the fpc, his sister fell on him. He hit his head and back His head has a small bump:and his back has a large ecchymotic area. His tail bone also hurts. Has not improved much since Sat. Declines to go to ED as he has a large bill with [facility]. Aware they still will see him but he declines to go be evaluated. Also suggested the urgent care at [facility], he still declines. Attempted to have [...] 07/18/2024 - present Responsible Staff: Jenn Vidales, BARRY Support and Services: Hypertension, Chronic Obstructive Pulmonary [...] Managing Stress & Anxiety Disposition Based on senior dot net developer, the following disposition is advised: Routed to the Navigation Team Details:: Primary Care Provider visit within 48 hours. Jenn Vidales RN October 09, 2024 12:42 PM documented in this encounter [facility] 10-09-2024 Note HNO ID: [id number] Author: MILLY BERMAN MA Service: ? Author Type: Records Technician Type: Progress Notes Filed: 10/09/2024 13:33 Note [...] Berman MA October 09, 2024 1:32 PM [facility] 10-09-2024 Note HNO ID: [id number] Author: JENN VIDALES RN Service: ? Author [...] emotional support given. Last Sat at the fpc, his sister fell on him. He hit his head and back His head has a small bump:and his back has a large ecchymotic area. His tail bone also hurts. Has not improved much since Sat. Declines to go to ED as he has a large bill with [facility]. Aware they still will see him but he declines to go be evaluated. Also suggested the urgent care at [facility], he still declines. Attempted to have [...] Managing Stress AND Anxiety Disposition Based on senior dot net developer, the following disposition is advised: Routed to the Navigation Team Details:: Primary Care Provider visit within 48 hours. Jenn Vidales RN October 09, 2024 12:42 PM [facility] 10-09-2024 Note Patient Outreach ([facility] TIMORION ([id number]) 1950 M Date Time Provider Department 10/09/24 JENN VIDALES [facility] During your visit today, we recorded the [...] emotional support given. Last Sat at the fpc, his sister fell on him. He hit his head and back His head has a small bump:and his back has a large ecchymotic area. His tail bone also hurts. Has not improved much since Sat. Declines to go to ED as he has a large bill with [facility]. Aware they still will see him but he declines to go be evaluated. Also suggested the urgent care at [facility], he still declines. Attempted to have [...] Managing Stress AND Anxiety Disposition Based on senior dot net developer, the following disposition is advised: Routed to the Navigation Team Details:: Primary Care Provider visit within 48 hours. Jenn Vidales RN October 09, 2024 12:42 PM Milly Berman MA 10/09/2024 1:33 PM Signed POPULATION HEALTH NAVIGATION OUTREACH Action/FYI Left message for patient as phone went right to [employer]. Left patient my direct number and asked [...] HEALTH NAVIGATION OUTREACH (more content not included)... [facility] 10-08-2024 Instructions Quincy Alonzo, PRE OWNED SALES MANAGER.[facility] - 10/08/2024 11:28 AM EDT We discussed [...] you have enough Eliquis (prescribed by your manager commodities). If you are running low, contact your manager commodities to discuss options for a short-term supply [...] the National Suicide Prevention Lifeline at 988 (722-508-4995) --text the Crisis Text Line (text HOME to 203480) --call 911 and let them know you are having a mental health crisis or go to your nearest Emergency Room for stabilization. --You can also call Mobile Crisis at [phone]. -- You may call the department appointment line at [phone] to schedule your appointment. -- Please call my nurse at [phone] or send me a message in [employer]Engen with any questions or concerns between appointments. documented in this encounter [facility] 10-08-2024 Note HNO ID: [id number] Author: QUINCY ALONZO APRN.CNP Service: ? Author Type: Nurse Practitioner Type: Progress Notes Filed: 10/10/2024 15:28 Note Text: FOLLOW UP - PSYCHIATRIC PROGRESS NOTE Visit Type:In person Recording using ambient Excorda software for draft documentation of the visit was discussed with the patient/authorized service support representative; all questions welcomed and answered. Patient/authorized service support representative agreed to proceed CC: Outpatient follow-up and safety monitoring of previously prescribed psychiatric medication, psychotherapy or other treatment HPI: Patient is a 73-year-old male with a history of anxiety and sleep disturbances, presenting for follow-up. Patient reports significant stress related to caregiving responsibilities for his sister, who has been in a fpc since 09/06. He visits her almost daily, [...] is currently on Eliquis prescribed by his manager commodities. He is managing medication costs by ordering [...] depressed mood hosp 95' Arthritis Atrial fibrillation ([facility]) 11/03/2009 s/p ablation, on coumadin, OFF now. 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 [...] Eating disorder, unspeci (more content not included)... [facility] 10-08-2024 History of Presen t illness Narrative Images from the original note were not included. FOLLOW UP - PSYCHIATRIC PROGRESS NOTE Visit Type:In person Recording using Virtual Call Center software for draft documentation of the visit was discussed with the patient/authorized service support representative; all questions welcomed and answered. Patient/authorized service support representative agreed to proceed CC: Outpatient follow-up and safety monitoring of previously prescribed psychiatric medication, psychotherapy or other treatment HPI: Patient is a 73-year-old male with a history of anxiety and sleep disturbances, presenting for follow-up. Patient reports significant stress related to caregiving responsibilities for his sister, who has been in a fpc since 09/06. He visits her almost daily, [...] is currently on Eliquis prescribed by his manager commodities. He is managing medication costs by ordering [...] coumadin, OFF now. Atrial fibrillation with RVR ([facility]) 02/01/2013 - currently HR controlled on diltiazem [...] of organic origin Iron deficiency anemia 08/02/2012 shelter current use of anticoagulant 02/09/2015 Major depressive [...] twice daily with meals. With each meal. Ckzyk2-VvdE7-U98-E-FA-Fish Oil [phone] bw-eg-wnb-mcg cap Take 600 mg by mouth once [...] for medications. - Advised patient to contact manager commodities to discuss options for obtaining a short [...] you have enough Eliquis (prescribed by your manager commodities). If you are running low, contact your manager commodities to discuss options for a short-term supply [...] TIME: 11:05 AM documented in this encounter [facility] 09-26-2024 Note HNO ID: [id number] Author: JENN VIDALES RN Service: ? Author [...] Annual COPD Pulmonology Appointment Disposition Based on senior dot net developer, the following disposition is advised: No action needed Jenn Vidales RN September 26, 2024 11:16 AM [facility] 09-26-2024 History of Presen t illness Narrative Images from the original note were not included. [facility] Telephonic Outreach Provider Action/FYI Patient [...] 08/19/2024 07/18/2024 Jenn Vidales RN Complete Assessments CD Assessment Medications: Do you have any questions [...] Annual COPD Pulmonology Appointment Disposition Based on senior dot net developer, the following disposition is advised: No action needed Jenn Vidales RN September 26, 2024 11:16 AM documented in this encounter [facility] 09-26-2024 Note Patient Outreach ([facility] ORION DUMONT ([id number]) 1950 M Date Time Provider Department 09/26/24 JENN VIDALES [facility] During your visit today, we recorded the following information about you: Jenn Vidales RN 09/26/2024 11:17 AM Signed [facility] Telephonic Outreach Provider Action/FYI Patient [...] Annual COPD Pulmonology Appointment Disposition Based on senior dot net developer, the following disposition is advised: No action [...] Diagnosis:Stage 1 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 ([facility]) [J44.9] Order(s):PT ED PULMONARY [4136730] Order #: [id number]: 1 Prescriptions as of 09/26/2024 - budesonide-formoterol [...] tablet by mo (more content not included)... [facility] 09-25-2024 Note HNO ID: [id number] Author: JENN VIDALES RN Service: ? Author Type: Registered Nurse Type: Progress Notes Filed: 09/25/2024 13:28 Note Text: CD [facility] Telephonic Outreach Provider Action/FYI [...] Vidales RN September 25, 2024 1:20 PM [facility] 09-25-2024 History of Presen t illness Narrative Images from the original note were not included. [facility] Telephonic Outreach Provider Action/FYI He [...] 2024 1:20 PM documented in this encounter [facility] 09-25-2024 Note Patient Outreach ([facility] ORION DUMONT ([id number]) 1950 M Date Time Provider Department 09/25/24 JENN VIDALESG During your visit today, we recorded the following information about you: Jenn Vidales RN 09/25/2024 1:28 PM Signed [facility] Telephonic Outreach [...] daily with meals. With each meal. - Shfde7-IzpT9-V17-E-FA-Fish Oil [phone] pc-pm-buy-mcg cap Take 600 mg by mouth once [...] [I82.409] 01/12/2010 0 (more content not included)... [facility] 09-23-2024 Miscellaneous Notes Discussed patient's concerns with [...] to wait list. documented in this encounter [facility] 09-23-2024 Telephone encounter Note Discussed patient's concerns with VV visit today with Katya Salmon. She has been able to assist the patient in scheduling a sooner visit with the provider on October 08. [facility] 09-23-2024 Telephone encounter Note Patient called to reschedule failed VV appointment with psychiatrist. Patient requested in office appointment and was scheduled for provider's first available on 11/12/24. Patient has been added to wait list. [facility] 09-23-2024 Note HNO ID: [id number] Author: QUINCY ALONZO APRN.RAJAN Service: ? Author Type: Nurse Practitioner Type: Progress Notes Filed: 09/23/2024 10:42 Note Text: Patient had problems connecting to the audio portion of the virtual visit. Will be offered an in person appointment instead. [facility] 09-23-2024 History of Presen t illness Narrative Patient had problems connecting to the audio portion of the virtual visit. Will be offered an in person appointment instead. documented in this encounter [facility] 09-20-2024 Telephone encounter Note Faxed Aleyda Harris LPN [facility] 09-20-2024 Miscellaneous Notes Faxed Aleyda Harris LPN Pt is requesting Symbicort 160/4.5 mcg 3.6 grams to be faxed to [facility] Fax Pt id # is [id number] documented in this encounter [facility] 09-19-2024 Telephone encounter Note Pt is requesting Symbicort 160/4.5 mcg 3.6 grams to be faxed to [employer] Fax Pt id # is [id number] [facility] 09-19-2024 Telephone encounter Note See MyChart message Aleyda Harris LPN [facility] 09-19-2024 Miscellaneous Notes See MyChart message Aleyda Harris LPN Patient called into office stating that he spoke with insurance and bero is 460 for 90 day, Symbicort is 209.36 for 90 days and fluticasone is 41.81 for 90 days. Please and contact with recommendation. Patient states you may mychart, or call and leave . Makenna Vigil LPN documented in this encounter [facility] 09-18-2024 Telephone encounter Note Called patient. Verified name and date of . Patient informed of results- verbalizes understanding. Adin Pleitez LPN [facility] 09-18-2024 Miscellaneous Notes Called patient. Verified name and date of . Patient informed of results- verbalizes understanding. Adin Pleitez LPN ----- Message from Antonio Stahl PA-C sent at 09/18/2024 1:52 PM EDT ----- Microscopic was negative for RBC's documented in this encounter [facility] 09-18-2024 Telephone encounter Note ----- Message from Antonio Stahl PA-C sent at 09/18/2024 1:52 PM EDT ----- Microscopic was negative for RBC's [facility] 09-17-2024 Telephone encounter Note Patient called into office stating that he spoke with insurance and bero is 460 for 90 day, Symbicort is 209.36 for 90 days and fluticasone is 41.81 for 90 days. Please and contact with recommendation. Patient states you may mychart, or call and leave . Makenna Vigil LPN [facility] Work Phone: 09-17-2024 Instructions Josselin Maldonado MD - 09/17/2024 1:29 PM EDT Breo Ellipta Dulera Advair HFA Symbicort Wixela Generic Symbicort documented in this encounter [facility] 09-17-2024 Note HNO ID: [id number] Author: VALE LAINEZ RPFT Service: ? Author [...] DATE: September 17, 2024 TIME: 1:14 PM [facility] 09-17-2024 Procedure note Associated Ord er(s): NITRIC [...] DATE: September 17, 2024 TIME: 1:14 PM [facility] 09-17-2024 Procedure note Associated Ord er(s): NITRIC [...] TIME: 1:14 PM documented in this encounter [facility] 09-17-2024 History of Presen t illness Narrative Images from the original note were not included. e [facility] [place] Note Patient name: Orion Dumont PCP: Florian [...] Stage 1 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 ([facility]) MQ: XC2_6 EXAM DATE/TIME: 08/29/2024 5:25 PM [...] depressed mood hosp 95' Arthritis Atrial fibrillation ([facility]) 11/03/2009 s/p ablation, on coumadin, OFF now. 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 Treated with [...] AC, [place] has DVT (deep venous thrombosis) ([facility]) 01/12/2010 S/P IVC filter, occurred post-op, on anticoagulation (for a fib) Eating disorder, unspecified 07/01/2009 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 Essential hypertension, benign Fatty liver 11/03/2009 by us Gall stones, common bile duct 12/07/2013 Generalized anxiety disorder 07/01/2009 GI bleed 06/29/2012 Hip joint replacement by other means 09/21/2012 Hyperlipidemia 08/25/2020 Impaired fasting glucose 05/05/2021 Impotence of organic origin Iron deficiency anemia 08/02/2012 shelter current use of anticoagulant 02/09/2015 Major depressive disorder, recurrent episode, moderate ([facility]) 07/01/2009 Morbid obesity ([facility]) 04/21/2009 stated BMI 51.1 Ht: 75 Wt: [...] in joint, multiple sites neck, shoulders Pericarditis ([facility]) 07/04/2012 Post Mini Maze procedure Treated with Indomethacin (Inpatient), Toradol PO and Prednisone taper on discharge. Currently chest pain free; Talked with cardiology - said no need for treatment is patient is treatment free Plan: Continue to monitor Postsurgical dumping syndrome 08/30/2012 Pulmonary embolism ([facility]) 03/01/2010 Retinal detachment OD Syncope 11/02/2018 Torn [...] twice daily with meals. With each meal. Lqygr0-LsaG1-W07-E-FA-Fish Oil [phone] ku-ps-sqx-mcg cap Take 600 mg by mouth once daily. pyridoxine (VITAMIN B-6) 100 mg tablet Take 2 tablets by mouth twice daily. docusate sodium 100 mg capsule Take 1 capsule by mouth twice daily as needed for Constipation. 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 He will contact my office for a prescription Josselin Maldonado MD [facility] [place] documented in this encounter [facility] 09-17-2024 Note HNO ID: [id number] Author: JOSSELIN MALDONADO MD Service: ? Author Type: Physician Type: Progress Notes Filed: 09/17/2024 14:43 Note Text: e. [facility] [place] Note Patient name: Orion Dumont PCP: Florian [...] Stage 1 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 ([facility]) MQ: XC2_6 EXAM DATE/TIME: 08/29/2024 5:25 PM [...] depressed mood hosp 95' Arthritis Atrial fibrillation ([facility]) 11/03/2009 s/p ablation, on coumadin, OFF now. 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 [facility] 09-14-2024 Telephone encounter Note Lab results UA back. I called the patient to inform him of the results. UA not indicative of UTI. Urine culture not back yet. No need for antibiotics at this point. Recommend follow-up with PCP next week for further eval. [facility] Work Phone: 09-14-2024 Miscellaneous Notes Lab results UA back. I called the patient to inform him of the results. UA not indicative of UTI. Urine culture not back yet. No need for antibiotics at this point. Recommend follow-up with PCP next week for further eval. documented in this encounter [facility] 09-14-2024 Note HNO ID: [id number] Author: SHYANNE CORONA RN Service: ? Author [...] . Discussed care with patient Based on senior dot net developer the following disposition is advised: No symptoms or symptoms present, not severe. Routed to: No Action Needed SHRADDHA Education Provided this Outreach: No SHYANNE CORONA RN September 14, 2024 9:46 AM [facility] 09-14-2024 History of Presen t illness Narrative [...] . Discussed care with patient Based on senior dot net developer the following disposition is advised: No symptoms or symptoms present, not severe. Routed to: No Action Needed SHRADDHA Education Provided this Outreach: No SHYANNE CORONA RN September 14, 2024 9:46 AM documented in this encounter [facility] 09-14-2024 Note Patient Outreach (AM [facility]) ORION DUMONT ([id number]) 1950 M Date Time Provider Department 09/14/24 SHYANNE CORONA [facility] During your visit today, we recorded the [...] . Discussed care with patient Based on senior dot net developer the following disposition is advised: No symptoms or symptoms present, not severe. Routed to: No Action Needed SHRADDHA Education Provided this Outreach: No SHYANNE MOUNA, RN September 14, 2024 9:46 AM Allergies [...] daily with meals. With each meal. - Wswdf2-MqmR0-J63-E-FA-Fish Oil [phone] zm-es-hke-mcg cap Take 600 mg by mouth once [...] and surveillan*10/14/2009 05/05/2021 DVT (deep venous thrombosis) ([facility]) [I82.409] 01/12/2010 05/05/2021 Atrial fibrillation [I48.91] 11/03/2009 11/05/2018 Pulmonary embolism ([facility]) [I26.99] 03/01/2010 05/05/2021 Retinal detachment with retinal defect, unspeci*06/14/2010 05/05/2021 Anticoagulation monitoring, INR range 2-3 [Z79.*06/14/2010 09/28/2012 LEXIE (obstructive sleep apnea) [G47.33] 06/14/2010 Hypomagnesemia [E83.42] 06/15/2010 05/05/2021 Hypokalemia [E87.6] 06/16/2010 05/05/2021 Other and unspecified postsurgical nonabsorptio*08/25/2010 05/05/2021 Wound check, abscess [Z51.89] 08/25/2010 05/05/2021 Varicose veins of both legs with edema [I83.893]2010 Anticoagulation management encounter [Z51.81, Z*2010 05/05/2021 shelter (current) use of anticoagulants [Z79.*03/18/2011 05/05/2021 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 [facility] 09-13-2024 Note HNO ID: [id number] Author: JENN VIDALES RN Service: ? Author [...] Vidales RN September 13, 2024 3:44 PM [facility] 09-13-2024 History of Presen t illness Narrative [...] 2024 3:44 PM documented in this encounter [facility] 09-13-2024 Note HNO ID: [id number] Author: DEON GLEZ MD Service: ? Author Type: Physician Type: Progress Notes Filed: 09/13/2024 15:52 Note Text: [facility] Note I have communicated my name and active licensure. The patient's identity and physical location were verified at the time of this visit. Either the patient or their legal service support representative has been informed of the risks and benefits of -- and alternatives to -- treatment through a remote evaluation and consents to proceed with the evaluation remotely. 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 next Monday has a urologist that he [...] of organic origin Iron deficiency anemia 08/02/2012 [address] terminal current use of anticoagulant 02/09/2015 Major depressive [...] monitor Postsurgical dumping syndrome 08/30/2012 Pulmonary embolism ([facility]) 03/01/2010 Retinal detachment OD Stage 1 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 ([facility]) 08/15/2022 Syncope 11/02/2018 Torn rotator cuff Upper GI bleed 07/03/2012 Hx: UGIB presenting to OSH on 06/29 with Melanotic stool; 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 Plan: Monitor HANDH Q8H, transfuse as necessary, keep Hb>8 Consult I (more content not included)... [facility] 09-13-2024 History of Presen t illness Narrative [facility] Note I have communicated my name and active licensure. The patient's identity and physical location were verified at the time of this visit. Either the patient or their legal service support representative has been informed of the risks and benefits of -- and alternatives to -- treatment through a remote evaluation and consents to proceed with the evaluation remotely. 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 Currently chest pain free; Talked with cardiology - said no need for treatment is patient is treatment free Plan: Continue to monitor Postsurgical dumping syndrome 08/30/2012 Pulmonary embolism ([facility]) 03/01/2010 Retinal detachment OD Stage 1 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 ([facility]) 08/15/2022 Syncope 11/02/2018 Torn rotator cuff Upper [...] in as Primary Virtualist, Secondary Virtualist, or [facility] Telehealth provider: Primary SIGNATURE: Deon Glez MD PATIENT NAME: Orion Dumont DATE: September 13, 2024 documented in this encounter [facility] 09-13-2024 Note HNO ID: [id number] Author: JENN VIDALES RN Service: ? Author [...] completed: ADLs, Fall Risk, SDOH 08/19/2024 07/18/2024 eJnn Vidales RN Complete Assessments CDM Assessment Medications: [...] episode are pending completion. Disposition Based on senior dot net developer, the following disposition is advised: Sent to a Virtualist Jenn Vidales RN September 13, 2024 3:15 PM [facility] 09-13-2024 History of Presen t illness Narrative Images from the original note were not included. [facility] Telephonic Outreach Provider Action/ANJUM Reports he has had foamy urine for [...] episode are pending completion. Disposition Based on senior dot net developer, the following disposition is advised: Sent to a Virtualist Jenn Vidales RN September 13, 2024 3:15 PM documented in this encounter [facility] 09-13-2024 Note HNO ID: [id number] Author: GILMER PEARSON RN Service: ? Author [...] Call / Main Concern Returning call to Chief Administrative Officer Summary of Callers Concern Patient calling PCC Jenn Vidales RN back. Action Taken / Plan Routed to Patient's Chief Administrative Officer Gilmer Pearson RN September 13, 2024 2:52 PM [facility] 09-13-2024 History of Presen t illness Narrative Value Based Care Management Inbound Call Provider Action / FYI: PCC - please call patient back. Thank you! Date of Call: 09/13/2024 Time of Call: 2:52 PM Caller Name: Orion Dumont Caller relationship to the patient: Patient Patient identified by Name and Date of : Yes Reason for Call / Main Concern Returning call to Chief Administrative Officer Summary of Callers Concern Patient calling PCC Jenn Vidales RN back. Action Taken / Plan Routed to Patient's Chief Administrative Officer Gilmer Pearson RN September 13, 2024 2:52 PM documented in this encounter [facility] 09-13-2024 Note Patient Outreach (AM [facility]) ORION DUMONT ([id number]) 1950 M Date Time Provider Department 09/13/24 GILMER PEARSON [facility] During your visit today, we recorded the [...] Call / Main Concern Returning call to Chief Administrative Officer Summary of Callers Concern Patient calling PCC Jenn Vidales RN back. Action Taken / Plan Routed to Patient's Chief Administrative Officer Gilmer Pearson RN September 13, 2024 2:52 [...] Assessed Reason for Visit: Transition Of Care [9474] Cmt: Inbound call Prescriptions as of 09/13/2024 [...] daily with meals. With each meal. - Tckck8-SxpK0-Q50-E-FA-Fish Oil [phone] ik-ai-uko-mcg cap Take 600 mg by mouth once [...] [I83.893]2010 Anticoagulation management encounter [Z51.81, Z*2010 05/05/2021 superintendent terminal (current) use of anticoagulants [Z79.*03/18/2011 05/05/2021 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 [facility] 09-13-2024 Note Patient Outreach (AM [facility]) ORION DUMONT ([id number]) 1950 Date Time Provider Department 09/13/24 JENN VIDALES During your visit today, we recorded the following information about you: Jenn Vidales RN 09/13/2024 3:44 PM Signed Value based Operations [...] daily with meals. With each meal. - Uqtpb9-DecU7-K09-E-FA-Fish Oil [phone] ut-vl-okf-mcg cap Take 600 mg by mouth once [...] and surveillan*10/14/2009 05/05/2021 DVT (deep venous thrombosis) ([facility]) [I82.409] 01/12/2010 05/05/2021 Atrial fibrillation [I48.91] 11/03/2009 11/05/2018 Pulmonary embolism ([facility]) [I26.99] 03/01/2010 05/05/2021 Retinal detachment with retinal defect, unspeci*06/14/2010 05/05/2021 Anticoagulation monitoring, INR range 2-3 [Z79.*06/14/2010 09/28/2012 LEXIE (obstructive sleep apnea) [G47.33] 06/14/2010 Hypomagnesemia [E83.42] 06/15/2010 05/05/2021 Hypokalemia [E87.6] 06/16/2010 05/05/2021 Other and unspecified postsurgical nonabsorptio*08/25/2010 05/05/2021 Wound check, abscess [Z51.89] 08/25/2010 05/05/2021 Varicose veins of both legs with edema [I83.893]2010 Anticoagulation management encounter [Z51.81, Z*2010 05/05/2021 shelter (current) use of anticoagulants [Z79.*03/18/2011 05/05/2021 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 [facility] 09-13-2024 Note Patient Outreach (AM [facility]) TIMORION ([id number]) 1950 M Date Time Provider Department 09/13/24 JENN VIDALES [facility] [place] During your visit today, we recorded the following information about you: Jenn Vidales RN 09/13/2024 4:29 PM Signed [facility] Telephonic Outreach [...] episode are pending completion. Disposition Based on senior dot net developer, the following disposition is advised: Sent to [...] by mouth daily (more content not included)... [facility] 08-30-2024 Note HNO ID: [id number] Author: JENN VIDALES RN Service: ? Author [...] Vidales RN August 30, 2024 4:44 PM [facility] 08-30-2024 Note Patient Outreach (AM [facility]) ORION DUMONT ([id number]) 1950 M Date Time Provider Department 08/30/24 JENN VIDALES During your visit today, we recorded the following information about you: Jenn Vidales RN 08/30/2024 4:46 PM Signed [facility] Telephonic Outreach Provider Action/FYI The phone rang, was picked up but [...] daily with meals. With each meal. - Ipzwi3-ShaE7-J02-E-FA-Fish Oil [phone] vh-pf-fnz-mcg cap Take 600 mg by mouth once [...] Generalized Anxiety D (more content not included)... [facility] 08-29-2024 Note HNO ID: [id number] Author: LOUIE WATSON RT(R) Service: ? Author Type: 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 Type: Progress Notes Filed: 08/29/2024 17:24 Note [...] PATIENT PRESENTS WITH AN IMPLANTABLE OR ATTACHED ELECTROTYPER HELPER: No RADIOLOGY DEPARTMENT: General X-ray: Exam(s) Completed: Chest X-Ray PERIPHERAL IV DATA: Not applicable SIGNED BY: RT Elena(R) August 29, 2024 5:16 PM [facility] 08-29-2024 Note HNO ID: [id number] Author: FLORIAN GONZALEZ MD Service: ? Author Type: Physician Type: Progress Notes Filed: 08/29/2024 16:59 Note Text: This note was created using [employer]en[employer]. Subjective Patient presents with: Cough Orion Dumont is a 73 year old male. Recording using Virtual Call Center software for draft documentation of the visit was discussed with the patient/authorized service support representative; all questions welcomed and answered. Patient/authorized service support representative agreed to proceed Cough: - Persistent cough with yellow sputum production x1 week. - Coughing episodes last 1-2 hours, unrelieved by cough drops or syrup. - Associated symptoms: rhinorrhea, epiphora, wheezing, and mild odynophagia. - Denies known exposure to illness; sister was recently hospitalized and in a fpc, visited daily. 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 With each meal. Ffhpm3-OaxJ4-M72-E-FA-Fish Oil [phone] zx-ro-pxz-mcg cap Take 600 mg by mouth once daily. pyridoxine (VITAMIN B-6) 100 mg tablet Take 2 tablets by mouth twice daily. docusate sodium 100 mg capsule Take 1 capsule by mouth twice daily as needed for Constipation. benzonatate (TESSALON PERLE) 100 mg capsule Take 1-2 (more content not included)... [facility] 08-15-2024 Note HNO ID: [id number] Author: VIDALES, JENN, RN Service: ? Author Type: Registered Nurse [...] Comprehensive HTN education provided 10/17/2024 07/31/2024 Jenn Vdiales RN Complete HTN lab care gaps addressed [...] - Bi-Weekly Outreach (Recurring) Disposition Based on senior dot net developer, the following disposition is advised: No action needed Jenn Vidales RN August 15, 2024 12:55 PM [facility] 08-15-2024 History of Presen t illness Narrative [...] - Bi-Weekly Outreach (Recurring) Disposition Based on senior dot net developer, the following disposition is advised: No action needed Jenn Vidales RN August 15, 2024 12:55 PM documented in this encounter [facility] 08-15-2024 Note Patient Outreach ([facility]) ORION DUMONT ([id number]) 1950 M Date Time Provider Department 08/15/24 [facility] [place] During your visit today, we recorded the following information about you: Jenn Vidales RN 08/15/2024 12:56 PM Signed [facility] Care Path Telephonic Outreach Provider Action/ Patient [...] - Bi-Weekly Outreach (Recurring) Disposition Based on senior dot net developer, the following disposition is advised: No action [...] (HCC) [I50.42] Order(s):PT ED HEART AND VASCULAR [[id number]] Order #: [id number]: 1 Prescriptions as of 08/15/2024 - QUEtiapine [...] needed. - pantoprazole (more content not included)... [facility] 08-06-2024 Instructions Quincy Alonzo APRN.INSIDE FINISHER - 08/06/2024 12:20 PM EDT We discussed [...] day. This prescription has been sent to [employer]. You should start noticing benefits in 2-3 [...] Make a list of important contacts (e.g., [facility], [facility]) to update with your new number. - Avoid social media and other apps that may contribute to stress or impulsive behaviors. We discussed therapy and additional support: - Contact [facility] and [facility] to inquire about therapy availability and insurance acceptance. These are local options that may be able to help you sooner. - Refer to the list of therapy providers sent by addiction social worker Kusum Cheng on July 19 in your [...] --call the National Suicide Prevention Lifeline at 989 (139-506-4876) --text the Crisis Text Line (text HOME to 516736) --call 911 and let them know you are having a mental health crisis or go to your nearest Emergency Room for stabilization. --You can also call Mobile Crisis at [phone]. -- You may call the department appointment line at [phone] to schedule your appointment. -- Please call my nurse at [phone] or send me a message in TransEngen with any questions or concerns between appointments. documented in this encounter [facility] 08-06-2024 Note HNO ID: [id number] Author: QUINCY ALONZO APRN.RAJAN Service: ? Author Type: Nurse Practitioner Type: Progress Notes Filed: 08/06/2024 12:20 Note Text: FOLLOW UP - PSYCHIATRIC PROGRESS NOTE Visit Type: In person Recording using Virtual Call Center software for draft documentation of the visit was discussed with the patient/authorized service support representative; all questions welcomed and answered. Patient/authorized service support representative agreed to proceed CC: Outpatient follow-up [...] has received a list of providers from [facility] and plans to contact [facility]. He expresses a desire to manage his impulsive behaviors and reduce stress. He is currently living with his sister, who has been hospitalized and transferred to a fpc after multiple falls. Another sister from [place] is visiting to help with the situation. [...] of organic origin Iron deficiency anemia 08/02/2012 shelter current use of anticoagulant 02/09/2015 Major depressive disorder, recurrent episode, moderate (HCC) 07/01/2009 Morbid obesity (HCC) 04/21/19 (more content not included)... [facility] 08-06-2024 History of Presen t illness Narrative FOLLOW UP - PSYCHIATRIC PROGRESS NOTE Visit Type: In person Recording using ambient Excorda software for draft documentation of the visit was discussed with the patient/authorized service support representative; all questions welcomed and answered. Patient/authorized service support representative agreed to proceed CC: Outpatient follow-up [...] has received a list of providers from [facility] and plans to contact [facility]. He expresses a desire to manage his impulsive behaviors and reduce stress. He is currently living with his sister, who has been hospitalized and transferred to a fpc after multiple falls. Another sister from [place] is visiting to help with the situation. 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 With each meal. [id number] Oil [phone] [id number]-io-[id number] cap Take 600 mg by mouth once [...] Advised patient to seek therapy; recommended contacting [facility] and [facility] for in-person therapy sessions. - Discussed strategies [...] TIME: 12:18 PM documented in this encounter [facility] 08-02-2024 Note HNO ID: [id number] Author: KHADAR VASQUEZ MA Service: ? Author Type: Records Technician Type: Progress Notes Filed: 08/02/2024 08:56 Note Text: POPULATION HEALTH NAVIGATION OUTREACH Action/FYI Provider Action/FYI Victor M team Please call, his heart doctor is retiring, Please assist getting a new Cardiac doctor, would like appointment in [place] if possible. 3rd attempt- Called and left a voicemail for patient to call me back directly. Patient just had 2024 Medicare wellness exam. With DX [place] is not a location to get scheduled at as a new patient. Patient can only been seen at 3 different locations. CDM Reason for Outreach Community Monitoring/Network Navigator Pools AND Phone Line: CM Pool Care Gaps due: N/A Patient Contacted: Unable or unnecessary to reach patient: Left message Navigation Signature: Khadar Vasquez MA August 02, 2024 8:55 AM [facility] 07-31-2024 History of Presen t illness Narrative POPULATION HEALTH NAVIGATION OUTREACH Action/FYI Provider Action/FYI Victor M team Please call, his heart doctor is retiring, Please assist getting a new Cardiac doctor, would like appointment in [place] if possible. 1st attempt- Called and left a voicemail for patient to call me back directly. Mychart message sent Patient just had 2024 Medicare wellness exam. With DX [place] is not a location to get scheduled at as a new patient. Patient can only been seen at 3 different locations. CDM Reason for Outreach Community Monitoring/Network Navigator Pools & Phone Line: CM Pool Care Gaps due: N/A Patient Contacted: Unable or unnecessary to reach patient: Left message MyChart message sent Navigation Signature: Khadar Vasquez MA July 31, 2024 2:36 PM Images from the original note were not included. CDM Care Path Telephonic Outreach Provider Action/ANJUM Dow team Please call, his heart doctor is retiring, Please assist getting a new Cardiac doctor, would like appointment in [place] if possible. Patient identified by Name and [...] - Bi-Weekly Outreach (Recurring) Disposition Based on senior dot net developer, the following disposition is advised: No action needed Jenn Vidales RN July 31, 2024 12:48 PM documented in this encounter [facility] 07-31-2024 Note HNO ID: [id number] Author: KHADAR VASQUEZ MA Service: ? Author Type: Records Technician Type: Progress Notes Filed: 07/31/2024 14:52 Note Text: POPULATION HEALTH NAVIGATION OUTREACH Action/FYI Provider Action/FYI Victor M team Please call, his heart doctor is retiring, Please assist getting a new Cardiac doctor, would like appointment in [place] if possible. 1st attempt- Called and left a voicemail for patient to call me back directly. Gamar message sent Patient just had 2024 Medicare wellness exam. With DX [place] is not a location to get scheduled at as a new patient. Patient can only been seen at 3 different locations. CDM Reason for Outreach Community Monitoring/Network Navigator Pools AND Phone Line: Pool Care Gaps due: N/A Patient Contacted: Unable or unnecessary to reach patient: Left message TransEngen message sent Navigation Signature: Khadar Vasquez MA July 31, 2024 2:36 PM [facility] 07-31-2024 Note HNO ID: [id number] Author: JENN VIDALES RN Service: ? Author Type: Registered Nurse Type: Progress Notes Filed: 07/31/2024 12:57 Note Text: CDM Care Path Telephonic Outreach Provider Action/FYI Victor M team Please call, his heart doctor is retiring, Please assist getting a new Cardiac doctor, would like appointment in [place] if possible. Patient identified by Name and [...] - Bi-Weekly Outreach (Recurring) Disposition Based on senior dot net developer, the following disposition is advised: No action needed Jenn Vidales RN July 31, 2024 12:48 PM [facility] 07-31-2024 Note Patient Outreach (AM [facility]) ORION DUMONT ([id number]) 1950 M Vendor Date Time Provider Department 07/31/24 JENN VIDALES During your visit today, we recorded the following information about you: Jenn Vidales RN 07/31/2024 12:57 PM Signed [facility] Care Path Telephonic Outreach Provider Action/ Victor M team Please call, his heart doctor is retiring, Please assist getting a new Cardiac doctor, would like appointment in [place] if possible. Patient identified by Name and [...] - Bi-Weekly Outreach (Recurring) Disposition Based on senior dot net developer, the following disposition is advised: No action needed Jenn Vidales RN July 31, 2024 12:48 PM Khadar Vasquez MA 07/31/2024 2:52 PM Signed POPULATION HEALTH NAVIGATION OUTREACH Action/FYI Provider Action/FYI Victor M team Please call, his heart doctor is retiring, Please assist getting a new Cardiac doctor, would like appointment in [place] if possible. 1st attempt- Called and left a voicemail for patient to call me back directly. [employer] message sent Patient just had 2024 Medicare wellness exam. With DX [place] is not a location to get scheduled at as a new patient. Patient can only been seen at 3 different locations. CDM Reason for Outreach Community Monitoring/Network Navigator Pools AND Phone Line: [facility] Care Gaps due: N/A Patient Contacted: Unable or unnecessary to reach patient: Left message MyChart message sent Navigation Signature: Khadar Vasquez MA July 31, 2024 2:36 PM Khadar Vasquez MA 08/02/2024 8:56 AM Signed POPULATION HEALTH NAVIGATION OUTREACH Action/FYI Provider Action/FYI Victor M team Please call, his heart doctor is retiring, Please assist getting a new Cardiac doctor, would like appointment in [place] if possible. 3rd attempt- Called and left a voicemail for patient to call me back directly. Patient just had 2024 Medicare wellness exam. With DX [place] is not a location to get scheduled at as a new patient. Patient can only been seen at 3 different locations. CDM Reason for Outreach Community Monitoring/Network Navigator Pools AND Phone Line: Pool Care Gaps due: N/A Patient Contacted: Unable or unnecessary to reach patient: Left message Navigation Signature: Khadar Vasquez MA August 02, 2024 8:55 AM Allergies As of Date: 07/31/2024 Noted Allergy Reaction RIVAROXABAN 03/02/2013 2 - Rash SULFA (SULFONAMIDE (more content not included)... [facility] 07-26-2024 Note HNO ID: [id number] Author: KUSUM JEFFRIES LPCC Service: ? Author Type: Counselor Type: Progress Notes Filed: 07/26/2024 08:20 Note Text: Behavioral Health Social Work Progress Note Patient identified for [facility] from: CDM Reason for referral: [facility] Behavioral Health Resources: Psychology - talk therapy [facility] encounter type: MyChart Message Attempts to Outreach: 3 attempts Referral made: Psychology - External, Psychology - Internal Psychology-Internal referral type: Therapy Psychology-External referral type: Therapy Reason for external referral: Patient choice Final Disposition: Resources given Patient Discharged?: Yes Patient reported that caregiver was able to meet their needs today?: N/A therapist sent patient [employer] follow up message offering assistance with linkage to behavioral health services. AZ Morales-s July 26, 2024 [facility] 07-26-2024 History of Presen t illness Narrative Behavioral Health Social Work Progress Note Patient identified for [facility] from: CDM Reason for referral: Resources Behavioral Health Resources: Psychology - talk therapy [facility] encounter type: MyChart Message Attempts to Outreach: 3 attempts Referral made: Psychology - External, Psychology - Internal Psychology-Internal referral type: Therapy Psychology-External referral type: Therapy Reason for external referral: Patient choice Final Disposition: Resources given Patient Discharged?: Yes Patient reported that caregiver was able to meet their needs today?: N/A therapist sent patient [employer] follow up message offering assistance with linkage to behavioral health services. AZ Morales-selwyn July 26, 2024 documented in this encounter [facility] 07-22-2024 Discharge summary [facility] 07-22-2024 Note HNO ID: [id number] Author: JACKELINE HAIR APRN.RAJAN Service: ? Author [...] was agreeable and will take his self. [facility] 07-22-2024 History of Present illness Narrative At [...] take his self. documented in this encounter [facility] 07-22-2024 Discharge summary Note Date/Time July 22, 2024 9:34pm [facility] Medical Records Department [address] [place] [address] Emergency Department Summary 07/22/24 MR#: [id number] Acct: [id number] Name: ORION DUMONT Rep #:[id number] : 1950 73 From: Cortez Maldonado MD [...] (Auto) 47.6 Lymph % (Auto) 41.3 H [place] % (Auto) 5.8 Eos % (Auto) 4.4 [...] get it to stop return. Print Language: Beninese Disposition Disposition: Home, Self Care What to do if you have Problems For any increased pain, shortness of breath, bleeding, nausea or vomiting, chestpain, or any unexpected problems, contact your Primary Care Provider. Call [facility] ([phone]) or report to the closest Emergency Room. Call 911 if necessary. 07/22/242133 <Electronically signed by Cortez Maldonado MD> Cosigner Signature (if applicable): CC: Dr. Florian Gonzalez MD ~ Signed [facility] Work Phone: 1(990) 530-945704-14-2025 Hospital Discharge instructions Additional Instructions You can take that dressing off in 1 to 2 days. I would take it off gently with water. I would hold your blood thinner the Eliquis tomorrow. And restart it normally on Monday. If it rebleeds hold direct pressure if you are unable get it to stop return. [facility] Work Phone: [phone]) 233-616904-11-2025 Telephone encounter Note* Telephone Encounter - Kusum Jeffries LPCC - 07/19/2024 11:05 AM EDT Behavioral Health Social Work Progress Note Patient identified for [facility] from: CDM Reason for referral: Resources Behavioral Health Resources: Psychology - talk therapy [facility] encounter type: Telephone Encounter Attempts to Outreach: 1 attempt Patient Discharged?: No Patient reported that caregiver was able to meet their needs today?: N/A Phone call placed today that went to voicemail. Left my contact information and brief nature of call. Initial outreach also completed via TransEngen sending list of in network providers with insurance. NICKI Morales July 19, 2024 [facility] Work Phone: [phone]) 123-520804-11-2025 Miscellaneous Notes* Telephone Encounter - Kusum Jeffries LPCC - 07/19/2024 11:05 AM EDT Behavioral Health Social Work Progress Note Patient identified for [facility] from: M Reason for referral: [facility] Behavioral Health Resources: Psychology - talk therapy [facility] encounter type: Telephone Encounter Attempts to Outreach: 1 attempt Patient Discharged?: No Patient reported that caregiver was able to meet their needs today?: N/A Phone call placed today that went to voicemail. Left my contact information and brief nature of call. Initial outreach also completed via [employer]en sending list of in network providers with insurance. NICKI Morales July 19, 2024 [facility] NoteHNO ID: [id number] Author: JENN VIDALES RN Service: ? Author Type: Registered Nurse Type: Progress Notes Filed: 07/18/2024 11:57 Note Text: CDM ENROLLMENT Provider Action / FYI: [facility] please assist in giving him names of people he can talk to in his area. ( [place]) thank you Given H@H phone number. Is caring for his sister and it is hard on him. Agrees to [facility] consult of assistance in finding [...] Jenn Vidales RN July 18, 2024 11:54 [facility]04-10-2025 History of Present illness Narrative* Jenn Vidales RN - 07/18/2024 11:54 AM EDT CDM ENROLLMENT Provider Action / FYI: [facility] please assist in giving him names of people he can talk to in his area. ( [place]) thank you Given H@H phone number. Is caring for his sister and it is hard on him. Agrees to [facility] consult of assistance in finding [...] to his sister's team meeting at the [facility]. [facility]25 NoteHNO ID: [id number] Author: JENN VIDALES RN Service: ? Author Type: Registered Nurse Type: Progress Notes Filed: 07/18/2024 11:57 Note Text: Reports he would like the calls. Given the H@H phne number. He is unable to continue the call because he needs to go to his sister's team meeting at the fpc.[facility]04-09-2025 NotePatient Outreach ([facility]) ORION DUMONT ([id number]) 1950 M Vendor Date Time Provider Department 07/17/24 JENN VIDALES [facility] During your visit today, we recorded the following information about you: Jenn Vidales RN 07/18/2024 11:57 AM Signed Reports he would like the calls. Given the H@H phne number. He is unable to continue the call because he needs to go to his sister's team meeting at the f[facility]. Jenn Vidales RN 07/18/2024 11:57 AM Signed CDM ENROLLMENT Provider Action / FYI: [facility] please assist in giving him names of people he can talk to in his area. ( [place]) thank you Given H@H phone number. Is caring for his sister and it is hard on him. Agrees to [facility] consult of assistance in finding [...] 1/2 hr before meal (more content not included)...[facility]03-24-2025 Telephone encounter Note* Telephone Encounter - Quincy Alonzo APRN.CNP - 07/01/2024 4:22 PM EDT Please notify the patient that I am glad that Seroquel 50 mg appears to be helping his symptoms. I have sent a new prescription of Seroquel 50 mg for [facility]. [facility]03-24-2025 Miscellaneous Notes* Telephone Encounter - Quincy Alonzo APRN.CNP - 07/01/2024 4:22 PM EDT Please notify the patient that I am glad that Seroquel 50 mg appears to be helping his symptoms. I have sent a new prescription of Seroquel 50 mg for 90 days to [facility]. 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 She has an appointment in [place] tomorrow and he doesn't think he can [...] future. Katya Salmon LPN [facility] Telephone encounter Note * Telephone Encounter - Katya Salmon LPN - 07/01/2024 1:38 PM EDT Call placed to patient to reschedule his OV for tomorrow, His sister has been in and out of the hospital and he is her caregiver. She has an appointment in [place] tomorrow and he doesn't think he can [...] available in the future. Katya Salmon LPN [facility]03-12-2025 Telephone encounter Note* Telephone Encounter - Katya Salmon LPN - 06/19/2024 11:36 AM EDT Next visit 07/02/24 Will need to refill before visit. (Expires 06/27/24) Seroquel 50 mg 1 tab [facility] [place] Salmon LPN [facility]03-12-2025 Miscellaneous Notes* Telephone Encounter - Katya Salmon LPN - 06/19/2024 11:36 AM EDT Next visit 07/02/24 Will need to refill before visit. (Expires 06/27/24) Seroquel 50 mg 1 tab [facility] [place] LPN documented in [facility] Telephone encounter Note * Telephone Encounter - Katya Salmon LPN - 06/12/2024 9:37 AM EST Call placed to patient notifying of providers message. Patient voices understanding. Katya Salmon LPN [facility]03-05-2025 Miscellaneous Notes* Telephone Encounter - Katya Salmon [...] medication before 07/02 appointment. [facility] Telephone encounter Note * Telephone Encounter - Quincy Alonzo APRN.CNP - 06/10/2024 3:18 PM EST Please let the patient know that he can just come for the appointment scheduled on 07/02. He can let us know if he needs any refills prior to that. [facility]03-03-2025 Telephone encounter Note* Telephone Encounter - Glory Horowitz - 06/10/2024 2:43 PM EST Patient wondering if they need appointment for medication before 07/02 appointment. [facility]02-21-2025 Progress note* Result Encounter Note - Domo Granda APRN.CNS - 05/31/2024 8:39 AM EST Stable [facility]02-21-2025 Miscellaneous Notes* Result Encounter Note - Domo Granda APRN.CNS - 05/31/2024 8:39 AM EST Stable documented in this encounter[facility] History of Present illness Narrative* Shital Patel Tech - 05/28/2024 4:10 PM EST Radiology Service Progress Note PATIENT NAME: Orion [...] PATIENT PRESENTS WITH AN IMPLANTABLE OR ATTACHED ELECTROTYPER HELPER: No RADIOLOGY DEPARTMENT: General X-ray: Exam(s) Completed: Chest X-Ray PERIPHERAL IV DATA: Not applicable SIGNED BY: Reymundo Lawler May 28, 2024 4:12 PM documented in this encounterSelect [facility]25 NoteHNO ID: [id number] Author: SHITAL PATEL Tech Service: ? Author [...] PATIENT PRESENTS WITH AN IMPLANTABLE OR ATTACHED ELECTROTYPER HELPER: No RADIOLOGY DEPARTMENT: General X-ray: Exam(s) Completed: Chest X-Ray PERIPHERAL IV DATA: Not applicable SIGNED BY: Reymundo Lawler May 28, 2024 4:12 [facility]02-18-2025 NoteHNO ID: [id number] Author: DOMO GRANDA APRN.CRYSTALLOGRAPHER Service: ? Author Type: Nurse Specialist Type: [...] Stage 1 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 ([facility]) ASSESSMENT/PLAN: 1. 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 Domo Granda APRN.CRYSTALLOGRAPHER Medical Decision Making: Problems: Low: Acute, uncomplicated illness or injury Data: Unique test(s) ordered: 1 Risk: Moderate: Drug management Medical Decision Making Level: 3 - [facility] History of Present illness Narrative* Domo Granda APRN.CRYSTALLOGRAPHER - 05/28/2024 3:32 PM EST SUBJECTIVE Orion [...] Stage 1 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 ([facility]) ASSESSMENT/PLAN: 1. Acute cough - ICD9: 786.2, [...] classification (HCC) - ICD9: 496, ICD10: J44.9 Recommend resume inhaler and other treatments as noted above, non-smoker. Domo Granda APRN.CNS Medical Decision Making: Problems: Low: Acute, uncomplicated illness or injury Data: Unique test(s) ordered: 1 Risk: Moderate: Drug management Medical Decision Making Level: 3 - Low documented in this encounterSelect Medical Specialty [facility]02-18-[facility]25 Instructions* Patient Instructions* Quincy Alonzo APRN.CNP - [...] the National Suicide Prevention Lifeline at 988 ([phone]) --text the Crisis Text Line (text HOME to 582964) --call 460 and let them know you are having a mental health crisis or go to your nearest Emergency Room for stabilization. --You can also call Mobile Crisis at [phone]. -- You may call the department appointment line at [phone] to schedule your appointment. -- Please call my nurse at [phone] or send me a message in [employer] with any questions or concerns between appointments. documented in this encounterSelect Medical Specialty [facility]02-18-2025 History of Present illness Narrative* Quincy Alonzo, BRAD.INSIDE FINISHER - 05/28/2024 2:30 PM EST Images from [...] taking his medications. Referred patient to the [facility] for intensive therapy as most of his stressors are related to multiple psychosocial factors. Patient has also been encouraged to pursue individual counseling senior care. He is in agreement with this plan. [...] was WNL. Did not start IOP at [facility] as discussed. I don't know, I just feel like I am not worth it. Is ashamed to share his struggles. Has an appointment that he has to schedule with the [facility] career resource technician. Encouraged patient to ask them about referrals [...] AC, [place]ch[place] has DVT (deep venous thrombosis) ([facility]) 01/12/2010 S/P IVC filter, occurred post-op, on anticoagulation (for a fib) Eating disorder, unspecified 07/01/2009 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 Essential hypertension, benign Fatty liver 11/03/2009 by us Gall stones, common bile duct 12/07/2013 Generalized anxiety disorder 07/01/2009 GI bleed 06/29/2012 Hip joint replacement by other means 09/21/2012 Hyperlipidemia 08/25/2020 Impaired fasting glucose 05/05/2021 Impotence of organic origin Iron deficiency anemia 08/02/2012 shelter current use of anticoagulant 02/09/2015 Major depressive disorder, recurrent episode, moderate ([facility]) 07/01/2009 Morbid obesity ([facility]) 04/21/2009 stated BMI 51.1 Ht: 75 Wt: [...] monitor Postsurgical dumping syndrome 08/30/2012 Pulmonary embolism ([facility]) 03/01/2010 Retinal detachment OD Stage 1 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 ([facility]) 08/15/2022 Syncope 11/02/2018 Torn rotator cuff Upper [...] twice daily with meals. With each meal. Xetnd7-GnqV7-S39-E-FA-Fish Oil [phone] ko-xs-kjz-mcg cap Take 600 mg by mouth once [...] 2024 TIME: 2:40 PM documented in this encounterSelect Medical Specialty Hospital [facility]02-18-2025 NoteHNO ID: [id number] Author: QUINCY ALONZO APRN.CNP Service: ? Author [...] taking his medications. Referred patient to the [facility] for intensive therapy as most of his stressors are related to multiple psychosocial factors. Patient has also been encouraged to pursue individual counseling senior care. He is in agreement with this plan. [...] was WNL. Did not start IOP at [facility] as discussed. I don't know, I just feel like I am not worth it. Is ashamed to share his struggles. Has an appointment that he has to schedule with the [facility] career resource technician. Encouraged patient to ask them about referrals [...] (for a fib) Eating (more content not included)...[facility]02-17-2025 History of Present illness Narrative* Jerry Kellogg, [...] plan is to proceed with the requested 52391 and [id number] for shoulder suprascapular and shoulder axillary nerve blocks to evaluate for shoulder RFA. PROCEDURE The patient underwent shoulder surgery on 10/09/2019 for a double tear. documented in this encounterResearch Medical [id number] Instructions* Patient Instructions* Shea Etienne, BRAD.INSIDE FINISHER - 05/13/2024 8:19 AM EST Screening schedule [...] review all the medicines you take, even qpvg-ldd-yngyfzj medicines. As you get older, the way [...] have certain medical conditions. documented in this encounterSelect Medical Specialty [facility]02-03-2025 NoteHNO ID: [id number] Author: SHEA ETIENNE APRN.CNP Service: ? Author [...] as PCP - General (Internal Medicine) Shea Etienen APRN.RAJAN as Poll Clerk (Internal Medicine) Antonio Stahl, ELOSIA - Urology. Quincy Mcpherson CNP- Psychiatry. Leonides Baker MD- [facility] LuisToya celeste MD- [facility]. Jerry Kellogg DO- Sports Medicine ([facility]) Matt Marie MD- [facility]. Ke Pantoja MD- [facility] provider. Pelon Nascimento MD- Ophthalmology [facility] Dermatology- Dr. Amin Medical/Family history review Reviewed [...] to dermatology, he is considering this now. CHF-Longwall Shearer Operator: Dr. Baker, last visit 05/01 He [...] limiting daily activities or exercise. Treatment: none Shoemaking Cutter: none He has never smoked No recent [...] ATORVASTATIN 20 MG TABLET (more content not included)...[facility]02-03-2025 History of Present illness Narrative* Shea Etienne, BRAD.INSIDE FINISHER - 05/13/2024 8:12 AM EST Images from [...] PCP - General (Internal Medicine) Shea Etienne APRN.INSIDE FINISHER as Poll Clerk (Internal Medicine) Antonio Stahl PAC - Urology. Quincy Mcpherson CNP- Psychiatry. Leonides Baker MD- [facility] oTya Smith MD- [facility]. Jerry Kellogg DO- Sports Medicine ([facility]) Matt Marie MD- [facility]. Ke Pantoja MD- [facility] provider. Pelon Nascimento MD- Ophthalmology [facility] Dermatology- Dr. Amin Medical/Family history review Reviewed [...] to dermatology, he is considering this now. CHF-Longwall Shearer Operator: Dr. Baker, last visit 05/01 He [...] limiting daily activities or exercise. Treatment: none Shoemaking Cutter: none He has never smoked No recent [...] 607.1, ICD10: N48.1 Intermittent, recommend follow-up with x ray developer and patient is agreeable. 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 LEXIE (obstructive sleep apnea) - ICD9: 327.23, ICD10: G47.33 Treated with oral appliance 13. BPH with urinary obstruction - ICD9: 600.01, 599.69, ICD10: N40.1, N13.8 stable Shea Etienne APRN.INSIDE FINISHER documented in this encounterSelect Medical Specialty [facility]01-20-2025 History of Present illness Narrative* Leonides Baker [...] coumadin, OFF now. Atrial fibrillation with RVR ([facility]) 02/01/2013 - currently HR controlled on diltiazem [...] AC, [place] has DVT (deep venous thrombosis) ([facility]) 01/12/2010 S/P IVC filter, occurred post-op, on anticoagulation (for a fib) Eating disorder, unspecified 07/01/2009 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 Essential hypertension, benign Fatty liver 11/03/2009 by us Gall stones, common bile duct 12/07/2013 Generalized anxiety disorder 07/01/2009 GI bleed 06/29/2012 Hip joint replacement by other means 09/21/2012 Hyperlipidemia 08/25/2020 Impaired fasting glucose 05/05/2021 Impotence of organic origin Iron deficiency anemia 08/02/2012 shelter current use of anticoagulant 02/09/2015 Major depressive disorder, recurrent episode, moderate ([facility]) 07/01/2009 Morbid obesity ([facility]) 04/21/2009 stated BMI 51.1 Ht: 75 Wt: [...] monitor Postsurgical dumping syndrome 08/30/2012 Pulmonary embolism ([facility]) 03/01/2010 Retinal detachment OD Stage 1 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 ([facility]) 08/15/2022 Syncope 11/02/2018 Torn rotator cuff Upper [...] twice daily with meals. With each meal. Xtscu3-UujG1-T14-E-FA-Fish Oil [phone] jf-yc-yvt-mcg cap Take 600 mg by mouth once [...] No, Bowels/stool: Normal EXTREMITIES: Pain/Weakness: No new CRYSTALLOGRAPHER: New weakness/paresis/numbness/stroke:No. New speech/swallowing abnormalities: No ASSESSMENT AND PLAN A 30-minute virtual visit with [employer] was held with the patient today. He [...] virtual visit: 30-35 min documented in this encounterSelect Medical Specialty Hospital [facility]01-17-2025 Telephone encounter Note * Telephone Encounter - Quincy Alonzo APRN.CNP - 04/26/2024 5:31 PM EST Follow up appointment noted. 90 day refill of the medication sent to the [facility]. [facility]01-17-[facility]25 Miscellaneous Notes* Telephone Encounter - Quincy Alonzo APRN.CNP - 04/26/2024 5:31 PM EST Follow up appointment noted. 90 day refill of the medication sent to the [facility]. * Telephone Encounter - Katya Salmon LPN - 04/26/2024 5:05 PM EST Patient has OV on 05/28/24 @ 2:30 Please send RX to [facility] for Lamictal 100 mg 1 tab every day Katya Salmon LPN * Telephone Encounter - Quincy Alonzo APRN.CNP - 04/22/2024 2:05 PM EST Refill can be authorized once follow up appointment is scheduled. Patient was supposed to contact the provider after engaging in the IOP at [facility]. * Telephone Encounter - Lo Kellogg - 04/22/2024 10:39 AM EST Last: 10/31/23 TREATMENT PLAN: Continue Zoloft, Lamictal, and Buspar at the same dose. Patient has been more consistent in taking his medications. Referred patient to the [facility] IOP for intensive therapy as most of his stressors are related to multiple psychosocial factors. Patient has also been encouraged to pursue individual counseling senior care. He is in agreement with this plan. Patient will reach out to the provider to share if he will be able to engage in the IOP program or not after speaking with their intake team. Follow up after IOP determination documented in this encounterSelect Medical Specialty [facility]01-17-2025 Telephone encounter Note * Telephone Encounter - Katya Salmon LPN - 04/26/2024 5:05 PM EST Patient has OV on 05/28/24 @ 2:30 Please send RX to [facility] for Lamictal 100 mg 1 tab every day Katya Salmon LPN [facility]01-13-2025 Telephone encounter Note* Telephone Encounter - Quincy Alonzo APRN.CNP - 04/22/2024 2:05 PM EST Refill can be authorized once follow up appointment is scheduled. Patient was supposed to contact the provider after engaging in the IOP at [facility]. [facility] Telephone encounter Note* Telephone Encounter - Lo Kellogg - 04/22/2024 10:39 AM EST Last: 10/31/23 TREATMENT PLAN: Continue Zoloft, Lamictal, and Buspar at the same dose. Patient has been more consistent in taking his medications. Referred patient to the [facility] for intensive therapy as most of his stressors are related to multiple psychosocial factors. Patient has also been encouraged to pursue individual counseling senior care. He is in agreement with this plan. Patient will reach out to the provider to share if he will be able to engage in the IOP program or not after speaking with their intake team. Follow up after IOP determination [facility]-18-[facility]24 Telephone encounter Note* Telephone Encounter - Lo Kellogg - 01/26/2024 8:13 AM EDT Last: 10/31/23 TREATMENT PLAN: 1.Continue Zoloft, Lamictal, and Buspar at the same dose. Patient has been more consistent in taking his medications. 2.Referred patient to the [facility] for intensive therapy as most of his stressors are related to multiple psychosocial factors. 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 He is in agreement with this plan. 3.Patient will reach out to the provider to share if he will be able to engage in the IOP program or not after speaking with their intake team. Follow up- Will determine once update is received about patient's engagement in the IOP as discussed during the visit. Next: NA [facility]10-18-2024 Miscellaneous Notes* Telephone Encounter - Lo Kellogg - 01/26/2024 8:13 AM EDT Last: 10/31/23 TREATMENT PLAN: 1.Continue Zoloft, Lamictal, and Buspar at the same dose. Patient has been more consistent in taking his medications. 2.Referred patient to the [facility] for intensive therapy as most of his stressors are related to multiple psychosocial factors. Patient has also been encouraged to pursue individual counseling senior care. He is in agreement with this plan. 3.Patient will reach out to the provider to share if he will be able to engage in the IOP program or not after speaking with their intake team. Follow up- Will determine once update is received about patient's engagement in the IOP as discussed during the visit. Next: NA documented in this encounterSelect Medical [facility]ty [facility]08-02-2024 History of Present illness Narrative* Florian Gonzalez MD - 11/10/2023 9:22 AM EDT This note was created using Quackenworthriter. 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 With each meal. Ywdbk8-OskG6-I03-E-FA-Fish Oil [phone] bk-mn-clp-mcg cap Take 600 mg by mouth once [...] HYDROXY Florian Gonzalez MD documented in this encounterSelect Medical Specialty [facility]07-31-2024 Telephone encounter Note * Telephone Encounter - Lyudmila Baxter RN - 11/08/2023 9:22 AM EDT [facility] 02/21/23 Patient phones requesting refills as follows: Requested Prescriptions Pending Prescriptions Disp Refills clotrimazole-betamethasone (LOTRISONE) cream [Pharmacy Med Name: CLOTRIMAZOLE- BETAMETHASONE CRM] 15g 1 Sig: APPLY TO AFFECTED AREA TWICE DAILY FOR 14 DAYS Please review and advise. Lyudmila Baxter RN [facility]07-31-2024 Miscellaneous Notes* Telephone Encounter - Lyudmila Baxter RN - 11/08/2023 9:22 AM EDT [facility] 02/21/23 Patient phones requesting refills as follows: Requested Prescriptions Pending Prescriptions Disp Refills clotrimazole-betamethasone (LOTRISONE) cream [Pharmacy Med Name: CLOTRIMAZOLE- BETAMETHASONE CRM] 15g 1 Sig: APPLY TO AFFECTED AREA TWICE DAILY FOR 14 DAYS Please review and advise. Lyudmila Baxter RN documented in this encounterSelect Medical [facility]07-24-2024 Telephone encounter Note * Telephone Encounter - [...] Saida Pacheco November 01, 2023 12:15 PM [facility]-24-2024 Miscellaneous Notes* Telephone Encounter - Saida Rodriguez [...] 01, 2023 12:15 PM documented in this encounterSelect Medical Specialty [facility]07-23-2024 History of Present illness Narrative* Quincy Alonzo, BRAD.INSIDE FINISHER - 10/31/2023 9:02 AM EDT Images from [...] to reach out the LGBTQ communities in [place] for socialization. Encouraged patient to visit the [facility] for activities there. Today Orion shares [...] not been able to go to the sikh for the past 2 years due to [...] coumadin, OFF now. 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 With each meal. Xekjr0-BjgD9-S28-E-FA-Fish Oil [phone] ao-kg-qnx-mcg cap Take 600 mg by mouth once [...] suspiciousactivity was identified. 10/31/2023 by Quincy Alonzo APRN.INSIDE FINISHER DIAGNOSIS: Generalized anxiety disorder Recurrent major depressive disorder, in partial remission (hcc) (primary encounter diagnosis) Chronic post-traumatic stress disorder (ptsd) GAF: -60-51 Moderate symptoms or moderate difficulty in social, occupational or school functioning. TREATMENT PLAN: Continue Zoloft, Lamictal, and Buspar at the same dose. Patient has been more consistent in taking his medications. Referred patient to the [facility] IOP for intensive therapy as most of his stressors are related to multiple psychosocial factors. 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 He is in agreement with this plan. [...] which included preparing to see the patient, fzia-ty-ehfw patient care, completing clinical documentation, and counseling and educating the patient/family/caregiver, ordering medications/labs, communicating with other health care providers and coordination of care. ADD ON PSYCHOTHERAPY CODE : No SIGNATURE: Quincy Alonzo APRN.CNP PATIENT NAME: Orion Dumont DATE: October 31, 2023 TIME: 9:02 AM documented in this encounterSelect Medical [facility]07-22-2024 Telephone encounter Note * Telephone Encounter - Lyudmila Baxter RN - 10/30/2023 8:47 AM EDT [facility] 02/21/23 Patient phones requesting refills as follows: Requested Prescriptions Pending Prescriptions Disp Refills oxybutynin XL (DITROPAN XL) 5 mg 24 hr tablet [Pharmacy Med Name: OXYBUTYNIN CL ER 5 MG TABLET] 90 tablet 3 Sig: take 1 tablet by mouth every day Please review and advise. Lyudmila Baxter RN [facility]07-22-2024 Miscellaneous Notes* Telephone Encounter - Lyudmila Baxter RN - 10/30/2023 8:47 AM EDT [facility] 02/21/23 Patient phones requesting refills as follows: Requested Prescriptions Pending Prescriptions Disp Refills oxybutynin XL (DITROPAN XL) 5 mg 24 hr tablet [Pharmacy Med Name: OXYBUTYNIN CL ER 5 MG TABLET] 90 tablet 3 Sig: take 1 tablet by mouth every day Please review and advise. Lyudmila Baxter RN documented in this encounterSelect Medical Specialty [facility]06-10-2024 Nurse Note* Enid Adams MA - 09/18/2023 8:22 AM EDT Orion presents today for Routine visit.. Medication Refills needed today: No Pharmacy has been captured? No ENID ADAMS MA [facility]06-10-2024 History of Present illness Narrative* Leonides Baker [...] of organic origin Iron deficiency anemia 08/02/2012 shelter current use of anticoagulant 02/09/2015 Major depressive [...] 1 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) 08/15/2022 Syncope 11/02/2018 Torn rotator cuff Upper [...] twice daily with meals. With each meal. Qgbzd9-XqxN5-D44-E-FA-Fish Oil [id number] jh-kj-hmh-mcg cap Take 600 mg by mouth once [...] or gallop. No parasternal heave or thrill. [place] not displaced. CHEST: Chest clear to auscultation. [...] months. Leonides Baker MD documented in this encounterSelect Medical [facility]ty [facility]06-10-2024 Nurse Note* Enid Adams MA - 09/18/2023 8:22 AM EDT Orion presents today for Routine visit.. Medication Refills needed today: No Pharmacy has been captured? No ENID ADAMS MA documented in this encounterSelect Medical Specialty [facility]06-05-2024 History of Present illness Narrative* Lina Jorgensen [...] PATIENT PRESENTS WITH AN IMPLANTABLE OR ATTACHED ELECTROTYPER HELPER: No RADIOLOGY DEPARTMENT: General X-ray: Exam(s) Completed: Chest X-Ray PERIPHERAL IV DATA: Not applicable SIGNED BY: RT Lizbeth(R) September 13, 2023 3:41 PM documented in this encounterSelect Medical Specialty [facility]04-23-2024 History of Present illness Narrative* Quincy Alonzo, BRAD.INSIDE FINISHER - 08/01/2023 8:30 AM EDT Images from [...] 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 He takes a nap during the day if he needs to as he has the flexibility. He is consistent in taking his medications again. He does find himself worrying about finances more due to his history of being scammed. He does enjoy playing games on his ipad. Looks forward to that daily. He went to the [employer] to play cards a few times. Struggles [...] depressed mood hosp 95' Arthritis Atrial fibrillation ([facility]) 11/03/2009 s/p ablation, on coumadin, OFF now. 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 Treated with [...] AC, [place] has DVT (deep venous thrombosis) ([facility]) 01/12/2010 S/P IVC filter, occurred post-op, on anticoagulation (for a fib) Eating disorder, unspecified 07/01/2009 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 Essential hypertension, benign Fatty liver 11/03/2009 by us Gall stones, common bile duct 12/07/2013 Generalized anxiety disorder 07/01/2009 GI bleed 06/29/2012 Hip joint replacement by other means 09/21/2012 Hyperlipidemia 08/25/2020 Impaired fasting glucose 05/05/2021 Impotence of organic origin Iron deficiency anemia 08/02/2012 shelter current use of anticoagulant 02/09/2015 Major depressive disorder, recurrent episode, moderate (HCC) 07/01/2009 Morbid obesity ([facility]) 04/21/2009 stated BMI 51.1 Ht: 75 Wt: [...] monitor Postsurgical dumping syndrome 08/30/2012 Pulmonary embolism ([facility]) 03/01/2010 Retinal detachment OD Stage 1 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 ([facility]) 08/15/2022 Syncope 11/02/2018 Torn rotator cuff Upper [...] twice daily with meals. With each meal. Lztjh4-KofU8-H55-E-FA-Fish Oil [id number] cc-lr-vhr-mcg cap Take 600 mg by mouth once [...] Other: Encouraged patient to reach out the [employer] in [place] for socialization. Encouraged patient to visit the [facility] for activities there. For those experiencing a suicidal crisis: --call the National Suicide Prevention Lifeline at 899 (394-985-7978) --text the Crisis Text Line (text HOME to 317428) --call 871 and let them know you are having a mental health crisis or go to your nearest Emergency Room for stabilization. --You can also call Mobile Crisis at [phone]. MEDICATION CHANGES: - Reviewed Lamictal titration & [...] which included preparing to see the patient, ytki-nr-wwqg patient care, completing clinical documentation, and counseling and educating the patient/family/caregiver, ordering medications/labs. ADD ON PSYCHOTHERAPY CODE : No SIGNATURE: Quincy Alonzo APRN.CNP PATIENT NAME: Orion Dumont DATE: August 01, 2023 TIME: 8:41 AM documented in this encounterSelect Medical [facility]ty [facility]03-18-2024 Miscellaneous Notes* Telephone Encounter - Quincy Alonzo [...] Please advise the patient. documented in this encounterSelect Medical Specialty [facility]02-27-2024 History of Present illness Narrative* Leonides Baker [...] AC, [place] has DVT (deep venous thrombosis) ([facility]) 01/12/2010 S/P IVC filter, occurred post-op, on anticoagulation (for a fib) Eating disorder, unspecified 07/01/2009 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 Essential hypertension, benign Fatty liver 11/03/2009 by us Gall stones, common bile duct 12/07/2013 Generalized anxiety disorder 07/01/2009 GI bleed 06/29/2012 Hip joint replacement by other means 09/21/2012 Hyperlipidemia 08/25/2020 Impaired fasting glucose 05/05/2021 Impotence of organic origin Iron deficiency anemia 08/02/2012 shelter current use of anticoagulant 02/09/2015 Major depressive disorder, recurrent episode, moderate (HCC) 07/01/2009 Morbid obesity ([facility]) 04/21/2009 stated BMI 51.1 Ht: 75 Wt: [...] Stage 1 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 ([facility]) 08/15/2022 Syncope 11/02/2018 Torn rotator cuff Upper [...] twice daily with meals. With each meal. Jstve4-QqpL2-E89-E-FA-Fish Oil [id number] jh-gb-vkm-mcg cap Take 600 mg by mouth once [...] or gallop. No parasternal heave or thrill. [place] not displaced. CHEST: Chest clear to auscultation. [...] months. Leonides Baker MD documented in this encounterSelect [facility] Nurse Note* Enid Adams - 06/06/2023 10:10 AM EST Orion presents today for Routine visit.. Medication Refills needed today: No Pharmacy has been captured? No ADIN ADAMS documented in this encounterSelect Medical [facility]ty [facility]-20-2024 History of Present illness Narrative* Quincy Alonzo [...] visit. Either the patient or their legal service support representative has been informed of the risks [...] of organic origin Iron deficiency anemia 08/02/2012 shelter current use of anticoagulant 02/09/2015 Major depressive disorder, recurrent episode, moderate ([facility]) 07/01/2009 Morbid obesity ([facility]) 04/21/2009 stated BMI 51.1 Ht: 75 Wt: [...] monitor Postsurgical dumping syndrome 08/30/2012 Pulmonary embolism ([facility]) 03/01/2010 Retinal detachment OD Stage 1 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 ([facility]) 08/15/2022 Syncope 11/02/2018 Torn rotator cuff Upper [...] twice daily with meals. With each meal. Yldug1-TrhY8-T06-E-FA-Fish Oil [phone] ws-ht-ybj-mcg cap Take 600 mg by mouth once [...] which included preparing to see the patient, wnas-gj-ftle patient care, completing clinical documentation, obtaining and/or reviewing separately obtained history, performing a medically appropriate examination, counseling and educating the pat ient/family/caregiver, and ordering medications, tests, or procedures. ADD ON PSYCHOTHERAPY CODE : No SIGNATURE: Quincy Alonzo APRN.CNP PATIENT NAME: Orion Dumont DATE: May 30, 2023 TIME: 8:45 AM documented in this encounterSelect Medical Specialty [facility]02-07-2024 History of Present illness Narrative* Sofya Rodriguez, PT, DPT - 05/17/2023 8:52 AM EST Program_ID:[id number] Access Code: [email or web address] URL: [email or web address] Time/ Date: 05-17-2023 Prepared By: Sofya Gabriel Program [...] 3 sets - 10 reps * Sofya Rodriguez PT, DPT - 05/17/2023 8:11 AM EST [...] of Care: created on 05/17/23 through 07/12/23 Adams in home exercise program. Patient will demonstrate [...] Planned: (4-8) Planned Treatment Interventions: Therapeutic exercise (67025), Neuromuscular re- education (50777), Manual therapy (55408), Therapeutic activities (24157), Self- nursing home management (45980), Gait Training (74900), Body Mechanics Training, Functional training, General Conditioning, E-Stim Attended/TENS (62150), E-Stim Unattended (61703), Ultrasound (99862), Aquatic PT (91363) PLAN FOR NEXT VISIT: Assess response to [...] Recreation / Current Exercise: Considering getting a [employer] membership Intake Information: Prescription present Previous Treatment: [...] Sofya Rodriguez PT, DPT documented in this encounterSelect Medical Specialty [facility]02-07-2024 NoteImaging Result: AP lateral and oblique cervical spine x-rays demonstrates progression of degenerative disc disease and spondylolisthesis at C3-4 C4-5 C5-6 levels with increased instability compared to previous cervical spine x-rays at the C3 through C6 level. He has a natural fusion beginning at C4-5 level and increased thoracic kyphosis consistent with moderate to advanced cervical spondylosisResearch Medical CenterRlqpmtkeie42-30-2100 History of Present illness Narrative* Jerry Kellogg, [...] confusion: No dizziness: No documented in this encounterResearch Medical CenterWfjrekauju64-33-1136 History of Present illness Narrative* Florian Gonzalez MD - 05/12/2023 10:41 AM EST This note was created using Adomoster. Subjective Orion Dumont is a 72 year old male. He was complaining of severe neck pain, and apparently had injections, and some kind of procedure for his neck several weeks ago. He reported being given opioids with no relief. He will see his neck real estate specialist, Dr. Kellogg somewhere in [place] next week. He also complained of chronic [...] Atrial Fibrillation With Rvr (Hcc) Retinal Detachment Half-Way Current Use of Anticoagulant Bph With Urinary Obstruction Obesity, Class II, Bmi 35-39.9 Hyperlipidemia Impaired Fasting Glucose Chronic Combined Systolic and Diastolic Congestive Heart Failure (Hcc) Stage 1 Mild Copd By Gold Classification ([facility]) Current Outpatient Medications Medication Sig [...] twice daily with meals. With each meal. Tnrti3-IsaJ2-E27-E-FA-Fish Oil [phone] do-ji-fby-mcg cap Take 600 mg by mouth once [...] 600.01, 599.69, ICD10: N40.1, N13.8 Controlled. 4. shelter current use of anticoagulant - ICD9: V58.61, ICD10: Z79.01 Stable. 5. Bursitis of other bursa of right hip - ICD9: 726.5, ICD10: M70.71 - CONSULT TO PHYSICAL THERAPY 6. Major depressive disorder, recurrent episode, moderate (HCC) - ICD9: 296.32, ICD10: F33.1 - Follow up with mental health INSIDE [employer]. 7. Generalized anxiety disorder - ICD9: 300.02, [...] as PCP - General (Internal Medicine) Antonio Stahl PAC - Urology. Quincy Mcpherson CNP- Psychiatry. Outside specialists seen: Leonides Baker MD- [facility] Toya Smith MD- [facility]. Jerry Kellogg DO- Sports Medicine ([facility]) Matt Marie MD- [facility]. Ke Pantoja MD- [facility] provider. Pelon Nascimento MD- Ophthalmology. [...] loss. BMI 28.37 kg/(m^2) documented in this encounterSelect Medical Specialty [facility]11-16-2023 Miscellaneous Notes* Addendum Note - Enid Adams - 02/23/2023 10:28 AM ESTAddended by: ENID ADAMS on: 02/23/2023 10:28 AM Modules accepted: Orders documented in this encounterSelect Medical Specialty Hospital [facility]11-16-2023 History of Present illness Narrative* Leonides Baker MD - 02/23/2023 9:11 AM EST Orion [...] twice daily with meals. With each meal. Ykbdq7-GjzJ9-E85-E-FA-Fish Oil [phone] qx-zl-cnj-mcg cap Take 600 mg by mouth once [...] or gallop. No parasternal heave or thrill. [place] not displaced. CHEST: Chest clear to auscultation. [...] injections, referred to Dr. Davi Heller at [place]. He can try local analgesic creamsmeanwhile. Other [...] agent. Leonides Baker MD documented in this encounterSelect Medical Specialty Hospital [facility]11-16-2023 Nurse Note* Chery Noriega - 02/23/2023 9:11 AM EST Orion presents today for Routine visit.. Medication Refills needed today: No Pharmacy has been captured? No hCery Noriega documented in this encounterSelect Medical Specialty Hospital [facility]11-15-2023 History and physical note * Kassie Ruiz [...] which there are no records available in [facility]. The patient denies blood in stools, [...] twice daily with meals. With each meal. Ntxcx2-WszF3-V83-E-FA-Fish Oil [id number] uu-jl-icd-mcg cap Take 600 mg by mouth once [...] ACLS-trained provider in this building. The closest [facility] is about an hour away. I have [...] 11:15 AM EST HISTORY AND PHYSICAL Orion Costa Renamarina 1950 REFERRING PHYSICIAN: Florian Gonzalez MD CHIEF [...] which there are no records available in [facility]. The patient denies blood in stools, [...] twice daily with meals. With each meal. Dzwwj5-XnsL1-F60-E-FA-Fish Oil [id number] rd-fk-ewt-mcg cap Take 600 mg by mouth once [...] ACLS-trained provider in this building. The closest [facility] is about an hour away. I have [...] . Kassie Ruiz MD documented in this encounterSelect Medical Specialty [facility]11-15-2023 Nurse Note* Pao Berman RN - 02/22/2023 9:47 AM EST Patient received in phase II via cart in left lateral position, eyes open upon arrival, alert to self and event, skin warm and dry, respirations regular and unlabored, abdomen soft and non distended.Denies abdominal pain or cramping. Resting comfortably on left side. documented in this encounterSelect Medical Specialty [facility]11-14-2023 History of Present illness Narrative* MaikAdin BRIAN - 02/21/2023 9:09 AM EST Verified name and date of . CC Post Void Residual HPI: Orion Dumont is a 72 year old male. The patient is here now for an appointment with BEATRIS Jerome, ANGEL, RONALD. Procedure: Explained procedure to patient and verbalizes [...] from the original note were not included. [facility] ESTABLISHED PATIENT CLINIC NOTE [...] twice daily with meals. With each meal. Guwuj1-BntH5-P01-E-FA-Fish Oil [phone] ah-kp-zvl-mcg cap Take 600 mg by mouth once [...] with depressed mood hosp 95' Atrial fibrillation ([facility]) 11/03/2009 s/p ablation, on coumadin, OFF now. Atrial fibrillation with RVR ([facility]) 02/01/2013 - currently HR controlled on diltiazem [...] AC, [place] has DVT (deep venous thrombosis) ([facility]) 01/12/2010 S/P IVC filter, occurred post-op, on [...] BEATRIS Jerome MT, PA-C documented in this encounterSelect Medical Specialty [facility]11-13-2023 Telephone encounter Note * Telephone Encounter - Shawnee Bryant - 02/20/2023 8:15 AM EST Contacted patient in regards to message below. Patient aware to hold Eliquis starting today. Shawnee Bryant Hris Specialist [facility]11-13-2023 Miscellaneous Notes* Telephone Encounter - Shawnee Bryant - 02/20/2023 8:15 AM EST Contacted patient in regards to message below. Patient aware to hold Eliquis starting today. Shawnee Bryant Hris Specialist * Telephone Encounter - Florian Gonzalez MD - 02/17/2023 12:42 PM EST I agree with cardiology recommendation. * Telephone Encounter - Shawnee Bryant - 02/17/2023 9:11 AM EST Patient is Open Access and a fax was sent to office from Cardiology Dr. Leonides Baker in regards to clearance for colonoscopy on 02/22/2023 in [facility] with Dr. Ruiz Fax states patient is clear to proceed and to hold Eliquis 2 days prior to procedure Please review and advise Fax in scanned doc Shawnee Bryant Hris Specialist documented in this encounterSelect Medical Specialty [facility]11-10-2023 Telephone encounter Note * Telephone Encounter - Florian Gonzalez MD - 02/17/2023 12:42 PM EST I agree with cardiology recommendation. [facility]11-10-2023 Telephone encounter Note* Telephone Encounter - Shawnee Bryant - 02/17/2023 9:11 AM EST Patient is Open Access and a fax was sent to office from Cardiology Dr. Leonides Baker in regards to clearance for colonoscopy on 02/22/2023 in [facility] with Dr. Ruiz Fax states patient is clear to proceed and to hold Eliquis 2 days prior to procedure Please review and advise Fax in scanned doc Shawnee Bryant Hris Specialist [facility]10-24-2023 History of Present illness Narrative* Florian Gonzalez MD - 01/31/2023 9:43 AM EDT This note was created using Quackenworthriter. 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 With each meal. Itulj5-DanX3-K26-E-FA-Fish Oil [id number] bm-yn-dyy-mcg cap Take 600 mg by mouth once [...] Cummings LPN - 01/31/2023 8:12 AM EDT [facility] OPEN ACCESS QUESTIONNAIRE 1. Are you currently [...] or anti-Anxiety medications? Yes /Tylenol w/Codeine, Percocet, [place] 14. Do you use any illegal or [...] Please send all open access questionnaires to [facility] Pool #[id number] documented in this encounterSelect Medical Specialty Hospital [facility]10-24-2023 Instructions* Patient Instructions* Florian Gonzalez MD - [...] please call: Dr. Ruiz or Dr. Rodriguez [phone] [facility] nurses [phone] documented in this encounterSelect Medical Specialty Hospital [facility]10-12-2023 History of Present illness Narrative* Toya Smith MD - 01/19/2023 9:30 AM EDT Images from the original note were not included. [facility] [address] [place] [address] Dept: [phone] Dept 01/19/2023 Chief Complaint Patient presents with [...] triggering. IMAGING NONE ASSESSMENT (M19.032) Arthritis of pokpxqfh-yyizigubr-vmonajrme joint of left hand (M18.12) Primary osteoarthritis of first carpometacarpal joint of left hand 1. Arthritis of ifwqaeld-qmxwsiqiu-fponnutuf joint of left hand 2. Primary osteoarthritis [...] Smith MD Hand and Upper Extremity Surgery [facility] Department of Orthopaedics and Sports Medicine 01/19/2023 at 9:39 AM (Please note that portions of this note may have been completed with a voice recognition program. Efforts were made to edit the dictations but occasionally words are mis-transcribed.) documented in this [facility]09-01-2023 History of Present illness Narrative* Florian Gonzalez MD - 12/09/2022 2:24 PM EDT This note was created using NoteWriter. Subjective Orion Dumont is a 72 year [...] Disorder Major Depressive Disorder, Recurrent Episode, Moderate ([facility]) Lexie (Obstructive Sleep Apnea) Varicose Veins of Both Legs With Edema Gastric Bypass Status for Obesity Vitamin D Deficiency Orthostatic Hypotension Postsurgical Dumping Syndrome Hip Joint Replacement By Other Means Atrial Fibrillation With Rvr ([facility]) Retinal Detachment Half-Way Current Use of Anticoagulant Bph With Urinary Obstruction Obesity, Class II, Bmi 35-39.9 Hyperlipidemia Impaired Fasting Glucose Chronic Combined Systolic and Diastolic Congestive Heart Failure ([facility]) Stage 1 Mild Copd By Gold Classification ([facility]) Current Outpatient Medications Medication Sig [...] twice daily with meals. With each meal. Vtdiv9-NdnI4-M86-E-FA-Fish Oil [phone] qq-uo-tdb-mcg cap Take 600 mg by mouth once [...] (CRP) Florian Gonzalez MD documented in this encounterSelect Medical Specialty [facility]08-15-2023 Miscellaneous Notes* Telephone Encounter - Jyoti Sal [...] Thank you. ELGIN Le documented in this encounterSelect Medical Specialty [facility]08-11-2023 History of Present illness Narrative* Antonio Stahl PA-C - 11/18/2022 11:14 AM EDT Images from the original note were not included. [facility] [...] twice daily with meals. With each meal. Pcvyf4-JyoT5-U05-E-FA-Fish Oil [id number] nm-md-iah-mcg cap Take 600 mg by mouth once [...] Friends and Family: Once a week Attends Congregation Services: 1 to 4 times per year [...] of . CC Post Void Residual HPI: rOion Dumont is a 71 year old male. [...] Plan: Appointment with Antonio. 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 With each meal. Umoft9-DeiH2-G19-E-FA-Fish Oil [id number] ao-xt-ihy-mcg cap Take 600 mg by mouth once [...] pulmonary. Florian Gonzalez MD documented in this encounterSelect Medical Specialty [facility]07-05-2023 History of Present illness Narrative* Rosa Jameson, OT - 10/12/2022 3:30 PM EDT Images from the original note were not included. [facility] [place] [facility] [place] [id number] [place] [address] Dept: [phone] Dept OCCUPATIONAL THERAPY RE-EVALUATION Patient Name: Orion Dumont : 1950 Date of Service: 10/12/2022 Referring Provider: Berenice Hanks PA-C Diagnosis: Arthritis of klesmgzo-yquezwhdk-aohjjnnkr joint of left hand Reason for referral/Mechanism of injury: s/p Left thumb carpometacarpal arthroplasty and intrinsic release, partial excision trapezoid, DOS 07/01/2022 Precautions/Red Flags: Yes UE weight bearing status: Non-weight bearing thru left hand post-surgical precautions: No CMC ROM until 6 weeks post op prosthesis/orthosis used: custom thumb spica splint Patient Preferences: Orion will transfer to [place] location due to proximity to home in [place] Subjective General Comments: Continues to report higher than expected pain in wrist 09/17, high pain in cervical spine, pain in thumb is sensitive with strengthening exercises Pain: Current: 2/10 Best: 2/10 Worst: 7/10 Current Level of Function: limited lifting, independent [...] WNL L HAND SENSORY TABLE LEFT Hand [place] [facility] Thumb Index Long Ring Small r u r u r u r u r u 2.83 2.83 2.83 2.83 2.83 2.83 2.83 2.83 2.83 2.83 Median Ulnar Acrylic Fabricator Strength: Right Left Trial 1 60 lbs [...] hold treatment until follow-up with physician 10/27/22. Acrylic Fabricator and pinch improved over last assessment. Rehab [...] 13 Rosa Jameson OT documented in this [facility]06-23-2023 History of Present illness Narrative* Mohinder Rodriguez OT - 09/30/2022 12:00 PM EDT Images from the original note were not included. [facility] AT [address] [place] [address] Dept: [phone] Dept OCCUPATIONAL THERAPY TREATMENT Patient Name: Orion Dumont : 1950 Date of Service: 09/30/2022 Referring Provider: Berenice Hanks PA-C Diagnosis: Arthritis of ndlfklpm-ohsvcrmoj-ixamicfka joint of left hand Reason for referral/Mechanism of injury: s/p Left thumb carpometacarpal arthroplasty and intrinsic release, partial excision trapezoid, DOS 07/01/2022 Patient Preferences: Orion will transfer to [facility] due to proximity to home in [place] Precautions/Red Flags: WBAT Subjective Pt reports he [...] 18 Mohinder Rodriguez OT documented in this [facility]06-21-2023 Miscellaneous Notes* Telephone Encounter - Kennedy Yorkvanovic - 09/28/2022 8:14 AM EDT Patient's request for medication is as follows: Requested Prescriptions Pending Prescriptions Disp Refills lamoTRIgine (LAMICTAL) 100 mg tablet [Pharmacy Med Name: LAMOTRIGINE 100 MG TABLET] 90 tablet 0 Sig: TAKE 1 TABLET BY MOUTH EVERY DAY Prescription(s) as above. Please process accordingly. Kennedy Mcduffie documented in this encounterSelect Medical Specialty [facility]06-14-2023 History of Present illness Narrative* Rosa Jameson, OT - 09/21/2022 9:30 AM EDT Images from the original note were not included. [facility] [facility] [place] [address] [place] [address] Dept: [phone] Dept OCCUPATIONAL THERAPY TREATMENT Patient Name: Orion Dumont : 1950 Date of Service: 09/21/2022 Referring Provider: Berenice Hanks PA-C Diagnosis: Arthritis of arzfpnvn-zeimoaiix-nnselptlp joint of left hand Reason for referral/Mechanism of injury: s/p Left thumb carpometacarpal arthroplasty and intrinsic release, partial excision trapezoid, DOS 07/01/2022 Precautions/Red Flags: Yes UE weight bearing status: Non-weight bearing thru left hand post-surgical precautions: No CMC ROM until 6 weeks post op prosthesis/orthosis used: custom thumb spica splint Patient Preferences: Orion will transfer to [place] location due to proximity to home in [place] Subjective Thumb feels ok, motion is adequate, wrist pain at ulnar styloid 6/10 Compliance with HEP: Yes Objective Able to oppose to base of small finger following treatment Acrylic Fabricator Strength: Left Trial 1 32 lbs Pinch [...] 10 Rosa Jameson OT documented in this [facility]06-07-2023 History of Present illness Narrative* Rosa Jameson OT - 09/14/2022 12:00 PM EDT Images from the original note were not included. [facility] [place] [facility] [place] [address] [place] [address] Dept: [phone] Dept OCCUPATIONAL THERAPY TREATMENT Patient Name: Orion Dumont : 1950 Date of Service: 09/14/2022 Referring Provider: Berenice Hanks PA-C Diagnosis: Arthritis of ryzjrvho-tlyninkel-litgvjfnn joint of left hand Reason for referral/Mechanism of injury: s/p Left thumb carpometacarpal arthroplasty and intrinsic release, partial excision trapezoid, DOS 07/01/2022 Precautions/Red Flags: Yes UE weight bearing status: Non-weight bearing thru left hand post-surgical precautions: No CMC ROM until 6 weeks post op prosthesis/orthosis used: custom thumb spica splint Patient Preferences: Orion will transfer to [facility] due to proximity to home in [facility] I feel like I've done too [...] Recorded: 09/14/22 Left Flexion 60 Extension 57 Acrylic Fabricator Strength: Right Left Trial 1 60 lbs [...] continued occupational therapy to reduce pain, 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 [facility] [facility] AT [address] [place] [address] Dept: [phone] Dept OCCUPATIONAL THERAPY RE-EVALUATION Patient Name: Orion Dumont : 1950 Date of Service: 09/07/2022 Referring Provider: Berenice Hanks PA-C Diagnosis: Arthritis of fxsmwdvv-akodatvqw-irypuwwlg joint of left hand Reason for referral/Mechanism of injury: s/p Left thumb carpometacarpal arthroplasty and intrinsic release, partial excision trapezoid, DOS 07/01/2022 Precautions/Red Flags: Yes UE weight bearing status: Non-weight bearing thru left hand post-surgical precautions: No CMC ROM until 6 weeks post op prosthesis/orthosis used: custom thumb spica splint Patient Preferences: Orion will transfer to [place] location due to proximity to home in [place] Subjective General Comments: pain is improving, exercises with theraputty cause discomfort Pain: Current: 04/19 Best: 10 Worst: 09/17 Current Level of Function: improved functional integration, 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, 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, light meal prep, Patient s [...] Extension 62 Supination full Pronation full Strength: RUBBER ROLLER GRINDER & PINCH Acrylic Fabricator Strength: Right Left Trial 1 60 lbs [...] 4: Theraputty Activity 4 Comment: Yellow - operations engineer/pinch/extension/pull Therapeutic Activity # of Activities: 1 Therapeutic Activity 1: Comfort Cool splint fitting, education Activity 1 Comment: review of precautions, wearing recommendation Time Entry Total Treatment Time Start Time: 0930 Stop Time: 1005 Time Calculation (min): 35 min OT Therapeutic Procedures Time Entry Therapeutic Exercise Time Entry: 25 Therapeutic Activity Time Entry: 10 Rosa Jameson OT documented in this [facility]05-10-2023 History of Present illness Narrative* Rosa Jameson OT - 08/17/2022 9:30 AM EDT Images from the original note were not included. [facility] AT [address] [place] [address] Dept: [phone] Dept OCCUPATIONAL THERAPY TREATMENT Patient Name: Orion Dumont : 1950 Date of Service: 08/17/2022 Referring Provider: Berenice Hanks PA-C Diagnosis: Arthritis of tofytnrr-dxsvbpskj-xutfegqoh joint of left hand Reason for referral/Mechanism of injury: s/p Left thumb carpometacarpal arthroplasty and intrinsic release, partial excision trapezoid, DOS 07/01/2022 Precautions/Red Flags: Yes UE weight bearing status: Non-weight bearing thru left hand post-surgical precautions: No CMC ROM until 6 weeks post op prosthesis/orthosis used: custom thumb spica splint Patient Preferences: Orion will transfer to [facility] due to proximity to home in [place] Subjective No new complaints, pain modestly improved, [...] 5 Rosa Jameson OT documented in this [facility]05-08-2023 History of Present illness Narrative* Leonides Baker [...] twice daily with meals. With each meal. Rdqhx9-EfbO9-C69-E-FA-Fish Oil [phone] jn-ya-dzc-mcg cap Take 600 mg by mouth once [...] 61.4 CARDIAC TESTING: Echocardiography Report: Transthoracic Echo [facility] Date of service: 05/09/2022 10:36:00 AM WORKER Indication: Atrial fibrillation Technologist: Courtney Knutson RD Interpreting physician: German Dias MD PATIENT: Name: [...] or gallop. No parasternal heave or thrill. [place] not displaced. CHEST: Chest clear to auscultation. [...] know. Leonides Baker MD [facility] Nurse Note* Adin Owens MA - 08/15/2022 8:44 AM EDT Orion presents today for Routine visit.. Medication Refills needed today: No Pharmacy has been captured? No Adin Owens MA documented in this [facility] History of Present illness Narrative* Rosa Jameson OT - 08/10/2022 8:30 AM EDT [facility] [place] [facility] AT [address] [place] [address] Dept: [phone] Dept OCCUPATIONAL THERAPY TREATMENT Patient Name: Orion Dumont : 1950 Date of Service: 08/10/2022 Referring Provider: Berenice Hanks PA-C Diagnosis: Arthritis of lvtjlnns-ltmnsbkrl-dshyrmqjh joint of left hand Reason for referral/Mechanism of injury: s/p Left thumb carpometacarpal arthroplasty and intrinsic release, partial excision trapezoid, DOS 07/01/2022 Precautions/Red Flags: Yes UE weight bearing status: Non-weight bearing thru left hand post-surgical precautions: No CMC ROM until 6 weeks post op prosthesis/orthosis used: custom thumb spica splint Patient Preferences: Orion will transfer to [facility] due to proximity to home in [place] Subjective Pain remains high 6-10/17 Compliance with [...] Time Entry Total Treatment Time Start Time: 0830 Stop Time: 0900 Time Calculation (min): 30 min OT Modalities Time Entry Hot/Cold Pack Time Entry: 5 UV Treatment Time Entry: 6 OT Therapeutic Procedures Time Entry Therapeutic Exercise Time Entry: 18 Rosa Jameson OT documented in this [facility]04-26-2023 History of Present illness Narrative* Rosa Jameson OT - 08/03/2022 11:30 AM EDT [facility] AT [place] [address] [place] [address] Dept: [phone] Dept OCCUPATIONAL THERAPY RE-EVALUATION Patient Name: Orion Dumont : 1950 Date of Service: 08/03/2022 Referring Provider: Berenice Hanks PA-C Diagnosis: Arthritis of pvngcojj-addpezfsv-emzzbvrkt joint of left hand Reason for referral/Mechanism of injury: s/p Left thumb carpometacarpal arthroplasty and intrinsic release, partial excision trapezoid, DOS 07/01/2022 Precautions/Red Flags: Yes UE weight bearing status: Non-weight bearing thru left hand post-surgical precautions: No CMC ROM until 6 weeks post op prosthesis/orthosis used: custom thumb spica splint Patient Preferences: Orion will transfer to [facility] due to proximity to home in [place] Subjective General Comments: Pain is somewhat better [...] 8 Rosa Jameson OT documented in this [facility]04-12-2023 History of Present illness Narrative* Rosa Jameson OT - 07/20/2022 9:00 AM EDT Images from the original note were not included. [facility] AT [facility] [address] [place] [address] Dept: [phone] Dept OCCUPATIONAL THERAPY TREATMENT Patient Name: Orion Dumont : 1950 Date of Service: 07/20/2022 Referring Provider: Berenice Hanks PA-C Diagnosis: Arthritis of lufsextm-iyhgtcpvc-dxxveqhkf joint of left hand Reason for referral/Mechanism of injury: s/p Left thumb carpometacarpal arthroplasty and intrinsic release, partial excision trapezoid, DOS 07/01/2022 Precautions/Red Flags: Yes UE weight bearing status: Non-weight bearing thru left hand post-surgical precautions: No CMC ROM until 6 weeks post op prosthesis/orthosis used: custom thumb spica splint Patient Preferences: Orion will transfer to [place] location due to proximity to home in [place] Subjective Pain remains hihg, 6/10 continues to take pain medication regularly Compliance [...] 10 Rosa Jameson OT documented in this [facility]04-03-[facility] History of Present illness Narrative* Rosa Jameson OT - 07/11/2022 11:00 AM EDT Images from the original note were not included. [facility] AT [address] [facility] [address] Dept: [phone] Dept OCCUPATIONAL THERAPY EVALUATION Patient Name: Orion Dumont : 1950 Date of Service: 07/11/2022 Referring Provider: Berenice Hanks PA-C Diagnosis: Arthritis of jdgjjcvi-gzrwdykzg-sgzqlmpzy joint of left hand General Information Reason for referral/Mechanism of injury: s/p Left thumb carpometacarpal arthroplasty and intrinsic release, partial excision trapezoid, DOS 07/01/2022 Precautions/Red Flags: Yes UE weight bearing status: Non-weight bearing thru left hand post-surgical precautions: No CMC ROM until 6 weeks post op prosthesis/orthosis used: custom thumb spica splint Patient Preferences: Orion will transfer to [facility] due to proximity to home in [place] Fall Risk: No Work status: retired Home [...] spica Splinting: Fabrication Splinting Education: Fitting, [place], [place], Wear schedule, Precautions Time Entry Total Treatment Time Start Time: 1100 Stop Time: 1150 Time Calculation (min): 50 min OT Evaluation Time Entry OT Evaluation (Low) Time Entry: 20 OT Therapeutic Procedures Time Entry Therapeutic Activity Time Entry: 8 Application of Splint Time Entry: 20 Rosa Jameson OT documented in this [facility]04-03-2023 History of Present illness Narrative* Berenice Hanks [...] level Assessment Diagnosis Plan 1. Arthritis of vtmbnnnc-ixttjbiid-aldsrjvbx joint of left hand Plan I would [...] concerns or questions regarding DME. Applied by: [facility] Berenice Hanks PA-C to Dr. 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 inspector when not strengthening Week 10 Consider Comfort [...] full use as tolerated documented in this [facility]04-03-2023 Instructions* Patient Instructions* Berenice Hanks PA-C - [...] strengthening Initiate home strengthening program Splint time clock inspector when not strengthening Week 10 Consider Comfort [...] full use as tolerated documented in this encounterSCentervilleOtsgds07-04-3937 NotePatient: Orion Dumont Procedure Summary Date: 07/01/22 Room / Location: [address] Operating Room Anesthesia Start: 1156 Anesthesia Stop: 1318 Procedure: Left thumb carpometacarpal arthroplasty with partial excision trapezoid (Left: Wrist) Diagnosis: Primary osteoarthritis, left wrist (Left qxyfilmp-Jfleqlquf-trcofetnb joint arthritis) Surgeons: Toya Smith MD Responsible [...] discharged once all PACU criteria has been met.[facility]03-[facility] Telephone encounter Note* Telephone Encounter - Berenice Hanks PA-C - 07/01/2022 4:37 PM EDT New rx signed. [facility] HospitalAekysv07-22-9388 Miscellaneous Notes* Telephone Encounter - Berenice Hanks PA-C - 07/01/2022 4:37 PM EDT New rx signed. * Telephone Encounter - Silvia MurrayRebecca Menon - 07/01/2022 4:32 PM EDT Please cancel previous script and sign new script. * Telephone Encounter - Chen Doshi - 07/01/2022 4:25 PM EDT Name of Caller: Orion Contact Reason for call: pt stated several pharmacies are out of his Rx for HYDROcodone- acetaminophen ([place]) 5-325 MG tablet [facility] [address] [place], [place] [id number] Pt called that pharmacy and they do have it. DOS today Office Name: [facility] documented in this enc[id number] Telephone encounter Note* Telephone Encounter - Silvia MurrayRebecca Menon - 07/01/2022 4:32 PM EDT Please cancel previous script and sign new script. [facility] HospitalBxrbip06-88-1209 Telephone encounter Note* Telephone Encounter - Chen Doshi - 07/01/2022 4:25 PM EDT Name of Caller: Orion Contact Reason for call: pt stated several pharmacies are out of his Rx for HYDROcodone- acetaminophen ([place]) 5-325 MG tablet [facility] [address] [place] [phone] Pt called that pharmacy and they do have it. DOS today Office Name: [facility] HospitalGgcroq97-60-2838 NotePatient: Orion Dumont Procedure Summary Date: 07/01/22 Room / Location: [address] Operating Room Anesthesia Start: 1156 Anesthesia Stop: 1318 Procedure: Left thumb carpometacarpal arthroplasty with partial excision trapezoid (Left: Wrist) Diagnosis: Primary osteoarthritis, left wrist (Left ygtlawil-Qjnsfuxno-ragzuhwya joint arthritis) Surgeons: Toya Smith MD Responsible [...] Allowed opportunity for questions and acknowledgement of understanding.[facility]03-[facility]23 NoteAirway Date/Time: 07/01/2022 12:00 PM Urgency: scheduled Airway not difficult General Information and Staff Patient location during procedure: Procedural Anesthesiologist: Jhony Mazariegos Jr., MD Resident/WELDER FITTER ARC: Radha Aly APRN - WELDER FITTER ARC Performed: WELDER FITTER ARC Indications and Patient Condition Indications for airway management: anesthesia Sedation level: Asleep Preoxygenated: yes Patient position: sniffing MILS maintained throughout Mask difficulty assessment: 1 - vent by mask Final Airway Details Final airway type: supraglottic airway Successful airway: Igel Size 4 Number of attempts at approach: [facility] Miscellaneous Notes* Perioperative Nursing Note - [...] Smith MD - 07/01/2022 10:56 AM EDT [facility] MA[facility] OR [address] [facility] [address] Dept: [phone] Loc: [phone] Operative Report Patient Name: Orion Dumont Date of : 1950 Date of Surgery: 07/01/22 Location: [facility] Preoperative Diagnosis: Left Upper Extremity Thumb carpometacarpal arthritis STT arthritis Thumb intrinsic contracture Postoperative Diagnosis: Same Procedure: Left Upper Extremity Thumb CMC arthroplasty Partial excision trapezoid Thumb intrinsic release Surgeon: Toya Smith MD 1st Assist: Shital Salguero MD 2nd Assist: Berenice Hanks PA-C Implants: Arthrex FiberTak SutureTape [place] Specimens Removed: None Anesthesia: MAC and Regional [...] to then begin hand therapy [facility] Outpatient Follow-up XRays: Yes, Left Hand 3V Toya Smith MD 07/01/2022 , 5:00 PM documented in this [facility]03-24-2023 Note* Perioperative Nursing Note - Loly Mendez RN - 07/01/2022 2:00 PM EDT Pain increasing. Medication provided. Aware that he can take norco at 800 pm if needed for pain. Aware to restart Eliquis tomorrow. Discharge instructions reviewed with patient and sister. Ambulates to restroom. Assisted with getting dressed. States ready to go home [facility] [id number] Note* Perioperative Nursing Note - Loly Mendez RN - 07/01/2022 2:00 PM EDT Pain increasing. Medication provided. Aware that he can take norco at 800 pm if needed for pain. Aware to restart Eliquis tomorrow. Discharge instructions reviewed with patient and sister. Ambulates to restroom. Assisted with getting dressed. States ready to go home [facility] [id number] Note* Perioperative Nursing Note - Loly Mendez RN - 07/01/2022 1:45 PM EDT Sister Cyndee brought to bedside. [facility] HospitalMhnbxv41-22-1474 Note* Perioperative Nursing Note - Loly Mendez RN - 07/01/2022 1:45 PM EDT Sister Cyndee brought to bedside. [facility] [id number] NoteUpdated History & Physical The patient's History [...] Dumont regarding the natural history, etiology, and senior care consequences of his condition. We discussed both [...] comfortable providing informed consent for the procedure. [facility]03-24-2023 Note* Perioperative Nursing Note - Loly Mendez RN - 07/01/2022 1:12 PM EDT Received pt from OR sleeping arouses easily to name and follows commands. Report received and assessment completed. Belongings with pt. Afib noted and has history. [facility] [id number] Note* Perioperative Nursing Note - Loly Mendez RN - 07/01/2022 1:12 PM EDT Received pt from OR sleeping arouses easily to name and follows commands. Report received and assessment completed. Belongings with pt. Afib noted and has history. [facility] [id number] Hospital Discharge instructions* Discharge Instructions* Berenice Hanks [...] * Moderate Sedation in Adults Discharge Instructions (Beninese) documented in this [facility]03-24-2023 History and physical note* Berenice Hanks PA-C [...] Dumont regarding the natural history, etiology, and senior care consequences of his condition. We discussed both [...] comfortable providing informed consent for the procedure. 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 We discussed both [...] consent for the procedure. documented in this [facility]03-24-2023 Note* Op Note - Toya Smith MD - 07/01/2022 10:56 AM EDT [facility] OR [address] [facility] [address] Dept: [phone] Loc: [phone] Operative Report Patient Name: Orion Dumont Date of : 1950 Date of Surgery: 07/01/22 Location: [facility] Preoperative Diagnosis: Left Upper Extremity Thumb carpometacarpal arthritis STT arthritis Thumb intrinsic contracture Postoperative Diagnosis: Same Procedure: Left Upper Extremity Thumb CMC arthroplasty Partial excision trapezoid Thumb intrinsic release Surgeon: Toya Smith MD 1st Assist: Shital Salguero MD 2nd Assist: Berenice Hanks PA-C Implants: Arthrex FiberTak SutureTape [place] Specimens Removed: None Anesthesia: MAC and Regional [...] Toya Smith MD 07/01/2022 , 5:00 PM [facility] [employer] Work Phone: [phone] 876-716503-24-2023 Note* Op Note - Toya Smith MD - 07/01/2022 10:56 AM EDT [facility] [address] [place] [address] Dept: [phone] Loc: [phone] Operative Report Patient Name: Orion Dumont Date of : 1950 Date of Surgery: 07/01/22 Location: [facility] Preoperative Diagnosis: Left Upper Extremity Thumb carpometacarpal arthritis STT arthritis Thumb intrinsic contracture Postoperative Diagnosis: Same Procedure: Left Upper Extremity Thumb CMC arthroplasty Partial excision trapezoid Thumb intrinsic release Surgeon: Toya Smith MD 1st Assist: Shital Salguero MD 2nd Assist: Berenice Hanks PA-C Implants: Arthrex FiberTak SutureTape [place] Specimens Removed: None Anesthesia: MAC and Regional [...] to then begin hand therapy per protocol [facility] Outpatient Follow-up XRays: Yes, Left Hand 3V Toya Smith MD 07/01/2022 , 5:00 PM [employer] Phone: [phone] Miscellaneous Notes* Telephone Encounter - Saida Lee MD - 06/30/2022 12:30 PM EDT Refill ordered by covering provider. The following approved medication requests have been transmitted electronically. Requested Prescriptions Signed Prescriptions Disp Refills lamoTRIgine (LAMICTAL) 100 mg tablet 90 tablet 0 Sig: TAKE 1 TABLET BY MOUTH DAILY Authorizing Provider: SAIDA LEE MD * Telephone Encounter - Frantz Vail Sec - 06/30/2022 11:26 AM EDT Quincy Alonzo's patient Last appt: 05/18/2022 Next appt: N/A documented in this encounter[facility] NotePatient: Orion Dumont Procedure Information Date/Time: 07/01/22 1230 Procedure: Left thumb carpometacarpal arthroplasty with partial excision trapezoid (Left: Wrist) - 60 Location: [address] Operating Room Surgeons: Toya Smith MD [...] sleep apnea syndrome Other (+) Arthritis of wttcitzx-cdojrvegk-ivkkowbmu joint of left hand Past Medical History: [...] results found for this or any previous visit.[facility] 06-24-2022 NoteComprehensive PreSurgical History and Physical ? Name: Orion Dumont : 1950 (Age-71 y.o.) Date of Service: Pt seen/examined on 06/24/2022 Procedure Information Date/Time: 07/01/22 1230 Procedure: Left thumb carpometacarpal arthroplasty with partial excision trapezoid (Left: Wrist) - 60 Location: [address] Operating Room Surgeons: Toya Smith MD Chief Complaint: Left teuyhufq-Tjyihrmyd-tzqowmqqv joint arthritis History Of Present Illness: 71 [...] his left wrist/thumb. ? Denies history of CO, CAD, CHF, TIA, CVA or Seizures. Past [...] 250 mcg (0.25 mg) tablet 03/31/22 Historical ProviderMD Eliquis 5 MG tablet 04/10/22 Historical Provider, fludrocortisone (Florinef) 0.1 MG tablet 04/10/22 Historical Provider, HYDROcodone-acetaminophen ([place]) 5-325 MG tablet 01/29/22 Historical Provider, lamoTRIgine [...] PLT No results foun (more content not included)...[facility]03-17-2023 NoteComprehensive PreSurgical History and Physical ? Name: Orion Dumont : 1950 (Age-71 y.o.) Date of Service: Pt seen/examined on 06/24/2022 Procedure Information Date/Time: 07/01/22 1230 Procedure: Left thumb carpometacarpal arthroplasty with partial excision trapezoid (Left: Wrist) - 60 Location: [place] [address] [facility] Operating Room Surgeons: Toya Smith MD Chief Complaint: Left yhnjmylm-Vcvdmultt-gwfhjordm joint arthritis History Of Present Illness: 71 [...] his left wrist/thumb. ? Denies history of CO, CAD, CHF, TIA, CVA or Seizures. Past [...] 0.1 MG tablet 04/10/22 Historical Provider, HYDROcodone-acetaminophen ([place]) 5-325 MG tablet 01/29/22 Historical Provider, lamoTRIgine [...] PLT No results foun (more content not included)...[facility]03-06-2023 History of Present illness Narrative* Teri Cummings LPN - 06/13/2022 1:30 PM EST Left ear flushed with warm water/h2o2 500cc. Small amount of cerumen removed. Patient tolerated procedure well. Teri Cummings LPN * Florian Gonzalez MD - 06/13/2022 1:01 PM EST his note was created using Quackenworthriter. 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 With each meal. Uzqun2-TzfB2-J89-E-FA-Fish Oil [phone] es-ta-pkg-mcg cap Take 600 mg by mouth once [...] CREAM Florian Gonzalez MD documented in this encounterSelect [facility]-2023 History of Present illness Narrative* Toya Smith MD - 05/26/2022 8:30 AM EST Images from the original note were not included. [facility] [place] [address] [place] [address] [place] [address] Dept: [phone] Dept 05/26/2022 Chief Complaint Patient presents with [...] None PROCEDURE none ASSESSMENT (M19.032) Arthritis of vxccvdvp-cwzedzndf-mhsyozigb joint of left hand 1. Arthritis of eojfphly-mroehbqwi-iebzdvbdn joint of left hand PLAN Orion has advanced STT arthritis and moderate CMC [...] Dumont regarding the natural history, etiology, and senior care consequences of his condition. We discussed both [...] Follow-up: Orion will followup with my physician assistant real estate manager Jaqueline Boyd PA-C post operatively. He knows to call the office with any questions or concerns in the interim. Future Imaging: NONE Toya Smith MD Hand and Upper Extremity Surgery [facility] Department of Orthopaedics and Sports Medicine 05/26/2022 at 9:00 AM (Please note that portions of this note may have been completed with a voice recognition program. Efforts were made to edit the dictations but occasionally words are mis-transcribed.) documented in this [facility]02-08-2023 History of Present illness Narrative* Quincy Alonzo APRN.[facility] - 05/18/2022 11:02 AM EST Images from [...] Buspar at the same dose. 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 Follow up in 2 months. Today rGeg shares that he had COVID in March. His symptoms lasted for 3 weeks. He is feeling better now and denies long COVID symptoms. He reports feeling stressed due to his finances. He has been taken advantage by an individual [employer]. He has lost over around $100,000 from his halfway account. Panchito has purchased 2 cars. Patient shares that he has romantic interest in this individual. He is planning on moving here from [place]. Patient has not met this individual in person but this individual is supposed to come in a week to [place]. He is also supposed to deposit some [...] LANA - 7 SCORES 03/24/2022 04/21/2022 05/17/2022 LANA-7 Score 7 7 10 (0-4) minimal anxiety, [...] which included preparing to see the patient, erwo-ec-xcem patient care, completing clinical documentation, and counseling and educating the patient/family/caregiver, ordering medications/labs. Quincy Alonzo APRN.RAJAN May 18, 2022 11:02 AM This note was partially generated using Pantry voice recognition system. Note was reviewed for accuracy. There may be minor misspellings or grammar miscues with Pantry voice recognition. documented in this encounterSelect [facility]2023 History of Present illness Narrative* Florian Gonzalez MD - 05/09/2022 12:37 PM EST This note was created using Quackenworthriter. Subjective Oiron Dumont is a 71 year old male. 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 With each meal. Qrvrt8-ZeuL4-T69-E-FA-Fish Oil [phone] sw-kz-uhi-mcg cap Take 600 mg by mouth once [...] all Concerns with sexual function:Not at all [place] anxious, stressed, angry, irritable, lonely, isolated, or [...] Medicine) Outside specialists seen: Dr. Yifan Baker, manager commodities. Quincy Alonzo, INSIDE FINISHER PRE OWNED SALES MANAGER, mental health; Dr. Ellis, ophthalmology; Dr. Matt Marie, orthopedics; Dr. Gonzalez Zimmerman, [facility], right shoulder, orthopedics, [place]. Dr. Rubio Pantoja MD, [facility] pain management. Dr. Toya Smith, [facility] orthopedics. Medical/Family history review Reviewed and updated [...] misuse screening and counseling documented in this encounterSelect [facility]-26-2023 Miscellaneous Notes* Telephone Encounter - Zoraida Mccormickgerald - 05/05/2022 12:06 PM EST Requested Prescriptions Pending Prescriptions Disp Refills sertraline (ZOLOFT) 100 mg tablet 90 tablet 3 Sig: Take 1 tablet by mouth once daily. documented in this encounterSelect Medical Specialty Hospital [facility]01-26-2023 Miscellaneous Notes* Telephone Encounter - Gaviota Mcmillan [...] pharmacy. No need to notify patient. Carin Mcmillan Pss documented in this encounterSelect Medical Specialty Hospital [facility]01-25-2023 History of Present illness Narrative* Phil Lobato MD - 05/04/2022 8:50 AM EST Images from the original note were not included. [facility] [address] [facility] [address] Dept: [phone] Dept Chief Complaint Patient presents with Injections [...] the left STT joint. Sterile prep. Using l34-ufhbl 1.5 inch needle I injected using direct [...] HEP. - Send Dr. Smith's office a TransEngen message in 4 weeks with an update. Follow up if symptoms worsen or fail to improve. Phil Lobato MD 05/04/2022 9:00 AM Please note that portions of this note may have been completed with voice recognition software. Documentation reviewed prior to signing but minor errors in it architect may have occurred. documented in this [facility]01-19-2023 History of Present illness Narrative* Toya Smith MD - 04/28/2022 9:30 AM EST Images from the original note were not included. [facility] [place] [address] [place] [address] [place] [address] Dept: [phone] Dept 04/28/2022 Chief Complaint Patient presents with [...] tablet fludrocortisone (Florinef) 0.1 MG tablet HYDROcodone-acetaminophen ([place]) 5-325 MG tablet lamoTRIgine (LaMICtal) 100 MG [...] 02/04/22 PROCEDURE none ASSESSMENT 1. Arthritis of qdoaogog-wzvydmsoo-tgxyyjabi joint of left hand PLAN I discussed [...] Smith MD Hand and Upper Extremity Surgery [facility] Department of Orthopaedics and Sports Medicine 04/28/2022 at 10:17 AM (Please note that portions of this note may have been completed with a voice recognition program. Efforts were made to edit the dictations but occasionally words are mis-transcribed.) documented in this [facility]12-19-2022 Miscellaneous Notes* Telephone Encounter - Shea Van [...] more days around people. documented in this encounterSelect Medical Specialty Hospital [facility]12-16-2022 Miscellaneous Notes* Telephone Encounter - Juanita Tilley LPN - 03/25/2022 2:42 PM EST Called pt and he is still seeing Dr. Baker for cardiology. He will call that office for that refill. * Telephone Encounter - Shea Van APRN.CNP - 03/25/2022 1:53 PM EST It looks like some of these were prescribed by cardiology, is he still following up with them? Shea Van APRN.CNP * Telephone Encounter - Juanita Tilley LPN - 03/25/2022 1:49 PM EST This is a new pharmacy for pt. Rx would need to be filed for Ella ortega. Last seen pcp 03/10/22. * Telephone Encounter - Marielos Pacheco - 03/25/2022 10:53 AM EST Patient returned call stating he uses [facility] on [address] * Telephone Encounter - Stefanie Donaldson Ma [...] and advise. Ariadna Balbuena documented in this [facility]2022 Instructions* Patient Instructions* Florian Gonzalez MD - 03/10/2022 9:10 AM EST STRETCH BOTTOM HEEL DAILY WITH TENNIS BALL OR ROLLING PIN (MASSAGE). documented in this [facility]2022 History of Present illness Narrative* Florian Gonzalez MD - 03/10/2022 8:40 AM EST This note was created using Alchimer. 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 With each meal. Szczv4-PipA4-H04-E-FA-Fish Oil [phone] ee-ss-scg-mcg cap Take 600 mg by mouth once [...] Reassured. Florian Gonzalez MD documented in this encounterSelect Medical [facility]11-17-2022 Miscellaneous Notes* Telephone Encounter - Doris Hankins [...] you. Doris Hankins RN documented in this encounterSelect Medical Specialty Hospital [facility]10-28-2022 Note ORIGINAL EXAMINATION: MRI OF THE LEFT [...] Date: 02/04/2022 5:40:41 PM Ordering Provider: [facility]10-28-2022 Note ORIGINAL EXAMINATION: MRI OF THE LEFT [...] Sign Date: 02/04/2022 5:40:41 PM Ordering Provider: [facility]10-26-2022 History of Present illness Narrative* Leonides Baker [...] recurrent episode, moderate (HCC) 07/01/2009 Morbid obesity ([facility]) 04-21-09 stated BMI 51.1 Ht: 75 Wt: [...] twice daily with meals. With each meal. Xmxjh0-DepC3-H07-E-FA-Fish Oil [phone] uw-zc-aio-mcg cap Take 600 mg by mouth once [...] or gallop. No parasternal heave or thrill. [place] not displaced. CHEST: Chest clear to auscultation. [...] months. Leonides Baker MD documented in this encounterSelect Medical Specialty Hospital [facility]10-26-2022 Nurse Note* Adin Owens MA - 02/02/2022 8:03 AM EDT Orion presents today for Routine visit.. Medication Refills needed today: No Pharmacy has been captured? No Adin Owens MA documented in this encounterSelect Medical Specialty Hospital [facility]10-14-2022 Miscellaneous Notes* Telephone Encounter - Yany Dangelo - 01/21/2022 11:34 AM EDT 1 month supply sent 12/30/21 with 2 refills ordered documented in this encounterSelect Medical Specialty Hospital [facility]10-06-2022 Miscellaneous Notes* Telephone Encounter - Michelle Perez RN - 01/13/2022 2:44 PM EDT Contacted patient and he states nothing is needed from Dr. Gonzalez at this time. He stated he spoke with [facility] Billing Dept and they are to be communicating with his insurance company. Thank you. * Telephone Encounter - Florian Gonzalez MD - 01/13/2022 1:11 AM EDT Any update on this? I do not recall receiving information to appeal. * Telephone Encounter - Courtney Monge RN - 01/03/2022 10:38 AM EDT Patient calls and states [facility] are not in network for patient's insurance. [...] sent. Courtney Monge RN documented in this encounterSelect Medical Specialty Hospital [facility]09-22-2022 Instructions* Patient Instructions* Quincy Alonzo APRN.CNP - 12/30/2021 11:03 AM EDT Daniel Ford, It was good to talk with you today. Below is a summary of the plan that we discussed during your appointment for reference. Of course, if you have any questions or concerns do not hesitate to reach out to me via a message or call. Best, Quincy Alonzo APRN.CNP PLAN AND FOLLOW UP: YOU SHOULD [...] - Call the National Suicide Hotline at 0-864-PLNUQNM ( ) or 8-353-651-TALK (2722) - Text 4HOPE to 176359 Medication Update: Lamictal 100 mg - take 1 tablet once daily. Continue Zoloft and Buspar at the same dose. Next appointment: --Schedule in 2 months or sooner if needed -- You may call the department appointment line at [phone] to schedule your appointment. -- Please call my nurse Atiya at [phone] or send me a message in TransEngen with any questions or concerns between appointments. documented in this encounterSelect Medical Specialty Hospital [facility]09-22-2022 History of Present illness Narrative* Quincy Alonzo [...] Buspar at the same dose. Transition to senior care therapy plan completing the current weekly therapy [...] with Dr. Alonso. 5. Continue socializing though sikh and phone apps Today Greg shares that things have been good this past month. He has been engaged in virtual therapy through an noelle. It was offered to him weekly by his [employer] insurance. Found it to be beneficial. He [...] past. Feels that his siblings are more confucianist and spiritually minded and he feels out of place with that. I go through the motions of going to sikh but I feel that I never really [...] which included preparing to see the patient, mwxg-je-hhpm patient care, completing clinical documentation, and counseling and educating the patient/family/caregiver, ordering medications/labs. Quincy Alonzo APRN.CNP December 30, 2021 10:33 AM This note was partially generated using Pantry voice recognition system. Note was reviewed for accuracy. There may be minor misspellings or grammar miscues with Pantry voice recognition. documented in this encounterSelect Medical Specialty [facility]08-24-2022 Instructions* Patient Instructions* Quincy Alonzo APRN.CNP - [...] - Call the National Suicide Hotline at 2-115-FZVJAMU ( ) or 8-242-441-TALK (3855) - Text 4HOPE to 704510 Medications: Stop Wellbutrin Lamotrigine 25 mg - Take 1 tablet by mouth once daily for 14 days then 2 tablets once daily after that. Continue Buspar and Zoloft at thee same dose Other: Call the main [facility] number to schedule an appointment with Dr. Alonso for psychotherapy Next appointment: at 1030 AM in person -- You may call the department appointment line at [phone] to schedule your appointment. -- Please call my nurse Atiya at [phone] or send me a message in TransEngen with any questions or concerns between appointments. documented in this encounterSelect Medical Specialty Hospital [facility]08-24-2022 History of Present illness Narrative* Quincy Alonzo [...] depression.and anxiety symptoms HPI: He moved from [facility] to [place] 2 years ago. At the same time [...] a homosexual male. He cannot go to sikh anymore because of the values at his sister's sikh. He identifies as spiritual since he has had difficulty withhis homosexuality and worship.He seperated from his because of his homosexuality. [...] in 1992 and they admitted him to [facility] where he was admitted for14 days. He [...] for the past 3 years, Fede with [facility].His last appointment was last month and he [...] past 2 years. 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 He attempts [...] twice daily with meals. With each meal. Dllzs5-YgkJ1-Q74-E-FA-Fish Oil [phone] gu-ac-qxt-mcg cap Take 600 mg by mouth once [...] Depressive Disorder Prior Provider:None Therapist: Followed at [facility] by Fede Current Electrical And Instrumentation Mechanic: None Last Hospitalization: Hospitalized in 1992 following suicidal [...] brothers.The patient was born and raised in [place], [place]. He completed Some college. He described [...] with Dr. Alonso. 5. Continue socializing though sikh and phone apps Medication update: 1.Stop Wellbutrin 2.Lamotrigine 25 mg - Take 1 tablet by mouth once daily for 14 days then 2 tablets once daily afterthat. 3.Continue Buspar and Zoloft at thee same dose DISPOSITION: Follow up with provider in 4 weeks I spent a total of 120 minutes on the date of the service which included preparing to see the patient, bdrq-yg-sfrg patient care, completing clinical documentation, obtaining and/or [...] 10:07 AM PAGER : documented in this encounterSelect Medical Specialty [facility]08-22-2022 Miscellaneous Notes* Telephone Encounter - Kusum Millan APRN.CNP - 11/29/2021 9:18 AM EDT . documented in this encounterSelect Medical Specialty Hospital [facility]08-20-2022 Miscellaneous Notes* Telephone Encounter - Florian Gonzalez [...] OV: 01/31/2022 Please review and advise, Doris Hankins RN documented in this encounterSelect Medical Specialty Hospital [facility]07-22-2022 History of Present illness Narrative* Reji ZENOBIA Ham - 10/29/2021 1:58 PM EDT Images from the original note were not included. Behavioral Health Social Work Assessment Patient was seen for an initial evaluation. All information is from patient report except when noted. This evaluation is NOT intended for forensic, disability, or child custody purposes. Informed consent was discussed and signed by the patient. -Pt was sent Z[employer] with consent for tx -Pt read [employer]hart msg, agreed *Pt needed to be sent a 2nd consent for treatment, unable to access 1st sent [facility] Assessment: Virtual Pt location: Home/multicare [facility] location: Non [facility] Facility *Pt had difficulty connecting to visit -approximately 40 min after original start time Pt joined visit -time of appt needed to be adjusted to allow Pt to join visit PRESENT: Self Patient identified for [facility] from: PCP (Dr Gonzalez) Reason for referral: Resources Behavioral Health Resources: Psychiatry med management (LANA,depression) [facility] encounter type: Virtual Visit Attempts to Outreach: 7 attempts Screening completed during encounter: PHQ-9;LANA-7;MDQ;C-SSRS CHIEF COMPLAINT: to prepare to get a new counselor, due to my primary care retiring and not being able to see my counselor at [facility] on [facility], I started receiving servicesthere 3yrs ago after my ex in 2019, before that I had seen other counselors and psychiatrists HPI: Pt is a 70yr old white male who has a h/o anxiety and depression which he 1st began tx in 1990 at [facility] after his mo (he was unable to function after mo ) -has been seen by several psychiatrists,Geo Gorman to name a Few -has been seen by several counselors, most recently has been seeing Fede at [facility] -he is no longer able to cont to see Fede since his PCP retired and he established with [facility] -Pt wants to establish with psychologist at [facility] -consult was placed for psychiatry, [...] at the hospital, HVAC replaced today and inspector canned food reconditioning is coming out to check on work completed -rates anxiety #5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 Pt goes to [facility]. CrCl:greater than 100 Will start Tikosyn per Dr Courtney Grady Plan for DCC if the pt remains in AF, IC in chart. 06/15: INR 2.9 today. Continue on Coumadin with INR check in the AM. 06/16: INR 3.1 today. Continue Coumadin. INR in the am// 06/17: INR 3.4 today. Instructed patient to take 5mg today. INR check on Monday at [place]// . 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 INR check on Monday at [place]// . Pulmonary embolism 03/01/2010 05/05/2021 DVT (deep [...] of this encounter (statuses as of 02/25/2022) [facility] History of Past illness Narrative* Problem Noted [...] with lovenox 02/09/2015 05/05/2021 Overview: Next Action: [facility] Bridge Information: Day 6 - [...] to: Bridge Instructions Approved by [employer] Name or Type of Procedure Date Warfarin [...] 12/07/2015 Lattice degeneration of peripheral retina 201105/05/2021 shelter (current) use of anticoagulants 201005/05/2021 Overview: PCC [...] draw on Elena. // Retinal detachment with retinal defect, unspecif ied 06/14/2010 05/05/2021 Anticoagulation monitoring, INR range 2-3 201009/28/2012 Overview: ECG on admission: AF, TB95-706 on tele w/ pt in bed QT/QTc: 380/460 Previous AAD: N/A Coumadin dose: 7.5mg daily INRs: see epic, therapeutic since 05/20/10. Pt goes to [facility]. CrCl:greater than 100 Will start Tikosyn per Dr Courtney Grady Plan for DCC if the pt remains in AF, IC in chart. 06/15: INR 2.9 today. Continue on Coumadin with INR check in the AM. 06/16: INR 3.1 today. Continue Coumadin. INR in the am// 06/17: INR 3.4 today. Instructed patient to take 5mg today. INR check on Monday at [place]// . 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 INR check on Monday at [place]// . 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 Pt goes to [facility]. CrCl:greater than 100 Will start Tikosyn per Dr Courtney Grady Plan for DCC if the pt remains in AF, IC in chart. 06/15: INR 2.9 today. Continue on Coumadin with INR check in the AM. 06/16: INR 3.1 today. Continue Coumadin. INR in the am/06/17: INR 3.4 today. Instructed patient to take 5mg today. INR check on Monday at [place]// . 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 Pt goes to [facility]. CrCl:greater than 100 Will start Tikosyn per Dr Courtney Grady Plan for DCC if the pt remains in AF, IC in chart. 06/15: INR 2.9 today. Continue on Coumadin with INR check in the AM. 03/09: INR 3.1 today. Continue Coumadin. INR in the am/ 06/17: INR 3.4 today. Instructed patient to take 5mg today. INR check on Monday at [place]// . Pulmonary embolism 03/01/2010 05/05/2021 DVT (deep [...] of this encounter (statuses as of 04/01/2022) [facility] History of Past illness Narrative* Problem Noted [...] with lovenox 02/09/2015 05/05/2021 Overview: Next Action: [facility] Bridge Information: Day 6 - [...] to: Bridge Instructions Approved by [facility] Name or Type of Procedure Date [...] 12/07/2015 Lattice degeneration of peripheral retina 201105/05/2021 shelter (current) use of anticoagulants 201005/05/2021 Overview: PCC referring MD: Michael cMmahan Anticoagulation management encounter 2010 05/05/2021 Other and [...] 2-3 201009/28/2012 Overview: ECG on admission: AF, [id number] on tele w/ pt in bed QT/QTc: [...] 5mg today. INR check on Monday at [place]// . Pulmonary embolism 03/01/2010 05/05/2021 DVT (deep [...] of this encounter (statuses as of 04/26/2022) [facility] History of Past illness Narrative* Problem Noted [...] with lovenox 02/09/2015 05/05/2021 Overview: Next Action: [facility] Bridge Information: Day 6 - [...] 12/07/2015 Lattice degeneration of peripheral retina 201105/05/2021 shelter (current) use of anticoagulants 201005/05/2021 Overview: PCC [...] 2-3 201009/28/2012 Overview: ECG on admission: AF, [id number] on tele w/ pt in bed QT/QTc: 380/460 Previous AAD: N/A Coumadin dose: 7.5mg daily INRs: see epic, therapeutic since 05/20/10. Pt goes to [facility]. CrCl:greater than 100 Will [...] of this encounter (statuses as of 05/02/2022) [facility]07-26-2019 History of Past illness Narrative* Problem Noted [...] with lovenox 02/09/2015 05/05/2021 Overview: Next Action: [facility] Bridge Information: Day 6 - [...] 12/07/2015 Lattice degeneration of peripheral retina 201105/05/2021 shelter (current) use of anticoagulants 201005/05/2021 Overview: PCC [...] 2-3 201009/28/2012 Overview: ECG on admission: AF, [id number] on tele w/ pt in bed QT/QTc: 380/460 Previous AAD: N/A Coumadin dose: 7.5mg daily INRs: see epic, therapeutic since 05/20/10. Pt goes to [facility]. CrCl:greater than 100 Will start Tikosyn per Dr Courtney Grady Plan for DCC if the pt remains in AF, IC in chart. 06/15: INR 2.9 today. Continue on Coumadin with INR check in the AM. 06/16: INR 3.1 today. Continue Coumadin. INR in the am06/17: INR 3.4 today. Instructed patient to take 5mg today. INR check on Monday at [place]// . Pulmonary embolism 03/01/2010 05/05/2021 DVT (deep [...] of this encounter (statuses as of 05/05/2022) [facility]07-26-2019 History of Past illness Narrative* Problem Noted [...] with lovenox 02/09/2015 05/05/2021 Overview: Next Action: [facility] Bridge Information: Day 6 - [...] to: Bridge Instructions Approved by [facility] [employer] Name or Type of Procedure Date Warfarin [...] 12/07/2015 Lattice degeneration of peripheral retina 201105/05/2021 shelter (current) use of anticoagulants 201005/05/2021 Overview: PCC [...] 2-3 201009/28/2012 Overview: ECG on admission: AF, [id number] on tele w/ pt in bed QT/QTc: 380/460 Previous AAD: N/A Coumadin dose: 7.5mg daily INRs: see epic, therapeutic since 05/20/10. Pt goes to [facility]. CrCl:greater than 100 Will [...] of this encounter (statuses as of 05/05/2022) [facility]07-26-2019 History of Past illness Narrative* Problem Noted Date Resolved Date Syncope 11/02/2018 05/05/2021 Chest pain 05/03/2018 05/05/2021 Left lower quadrant pain 05/03/2018 022 Left leg swelling 05/03/2018 05/05/2021 Microhematuria 01/19/2018 05/09/2022 Overview: Added automatically from request for surgery [id number] Presence of intraocular lens 11/14/2017 Bilateral posterior capsular opacification 11/1405/05/2021 History of detached retina repair 11/14/2017 05/05/2021 Strabismus 11/14/2017 05/05/2021 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 05/05/2021 Pseudophakia of both eyes 06/29/20152021 On bridging treatment with lovenox 02/09/2015 05/05/2021 Overview: Next Action: [facility] Bridge Information: Day 6 - [...] to: Bridge Instructions Approved by [facility] Name or Type of Procedure Date [...] 05/09/2022 Lattice degeneration of peripheral retina 201105/05/2021 shelter (current) use of anticoagulants 201005/05/2021 Overview: PCC [...] 2-3 201009/28/2012 Overview: ECG on admission: AF, [id number] on tele w/ pt in bed QT/QTc: 380/460 Previous AAD: N/A Coumadin dose: 7.5mg daily INRs: see epic, therapeutic since 05/20/10. Pt goes to [facility]. CrCl:greater than 100 Will [...] of this encounter (statuses as of 05/09/2022) [facility]07[facility]2019 History of Past illness Narrative* Problem Noted Date Resolved Date Syncope 11/02/2018 05/05/2021 Chest pain 05/03/2018 05/05/2021 Left lower quadrant pain 05/03/2018 022 Left leg swelling 05/03/2018 05/05/2021 Microhematuria 01/19/2018 05/09/2022 Overview: Added automatically from request for surgery [id number] Presence of intraocular lens 11/14/2017 Bilateral posterior capsular opacification 11/1405/05/2021 History of detached retina repair 11/14/2017 05/05/2021 Strabismus 11/14/2017 05/05/2021 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 05/05/2021 Pseudophakia of both eyes 06/29/20152021 On bridging treatment with lovenox 02/09/2015 05/05/2021 Overview: Next Action: [facility] Bridge Information: Day 6 - [...] to: Bridge Instructions Approved by [employer] [facility] [employer] Name or Type of Procedure Date Warfarin [...] 05/09/2022 Lattice degeneration of peripheral retina 201105/05/2021 [facility] terminal (current) use of anticoagulants 201005/05/2021 Overview: PCC [...] 2-3 201009/28/2012 Overview: ECG on admission: AF, [id number] on tele w/ pt in bed QT/QTc: 380/460 Previous AAD: N/A Coumadin dose: 7.5mg daily INRs: see epic, therapeutic since 05/20/10. Pt goes to [facility]. CrCl:greater than 100 Will start Tikosyn per Dr Courtney Grady Plan for DCC if the pt remains in AF, IC in chart. 06/15: INR 2.9 today. Continue on Coumadin with INR check in the AM. 03/09: INR 3.1 today. Continue Coumadin. INR in [...] of this encounter (statuses as of 05/18/2022) [facility]07[facility]2019 History of Past illness Narrative* Problem Noted Date Resolved Date Syncope 11/02/2018 05/05/2021 Chest pain 05/03/2018 05/05/2021 Left lower quadrant pain 05/03/2018 022 Left leg swelling 05/03/2018 05/05/2021 Microhematuria 01/19/2018 05/09/2022 Overview: Added automatically from request for surgery [id number] Presence of intraocular lens 11/14/2017 Bilateral posterior capsular opacification 11/1405/05/2021 History of detached retina repair 11/14/2017 05/05/2021 Strabismus 11/14/2017 05/05/2021 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 INR check on Monday at [place]// . Pulmonary embolism 03/01/2010 05/05/2021 DVT (deep [...] of this encounter (statuses as of 06/13/2022) [facility]07[facility]2019 History of Past illness Narrative* Problem Noted Date Resolved Date Syncope 11/02/2018 05/05/2021 Chest pain 05/03/2018 05/05/2021 Left lower quadrant pain 05/03/2018 022 Left leg swelling 05/03/2018 05/05/2021 Microhematuria 01/19/2018 05/09/2022 Overview: Added automatically from request for surgery [id number] Presence of intraocular lens 11/14/2017 Bilateral posterior capsular opacification 11/1405/05/2021 History of detached retina repair 11/14/2017 05/05/2021 Strabismus 11/14/2017 05/05/2021 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 INR check on Monday at [place]// . Pulmonary embolism 03/01/2010 05/05/2021 DVT (deep [...] of this encounter (statuses as of 06/22/2022) [facility]07[facility]2019 History of Past illness Narrative* Problem Noted Date Resolved Date Syncope 11/02/2018 05/05/2021 Chest pain 05/03/2018 05/05/2021 Left lower quadrant pain 05/03/2018 022 Left leg swelling 05/03/2018 05/05/2021 Microhematuria 01/19/2018 05/09/2022 Overview: Added automatically from request for surgery [id number] Presence of intraocular lens 11/14/2017 Bilateral posterior capsular opacification 11/1405/05/2021 History of detached retina repair 11/14/2017 05/05/2021 Strabismus 11/14/2017 05/05/2021 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 05/05/2021 Pseudophakia of both eyes 06/29/20152021 On bridging treatment with lovenox 02/09/2015 05/05/2021 Overview: Next Action: [facility] Bridge Information: Day 6 - [...] to: Bridge Instructions Approved by [employer] [facility] [employer] Name or Type of Procedure Date Warfarin [...] 05/09/2022 Lattice degeneration of peripheral retina 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 Pt goes to [facility]. CrCl:greater than 100 Will start Tikosyn per Dr Courtney Grady Plan for DCC if the pt remains in AF, IC in chart. 06/15: INR 2.9 today. Continue on Coumadin with INR check in the AM. 06/16: INR 3.1 today. Continue Coumadin. INR in the am06/17: INR 3.4 today. Instructed patient to take 5mg today. INR check on Monday at [place]// . Pulmonary embolism 03/01/2010 05/05/2021 DVT (deep [...] of this encounter (statuses as of 06/30/2022) [facility]07[facility] History of Past illness Narrative* Problem Noted Date Resolved Date Syncope 11/02/2018 05/05/2021 Chest pain 05/03/2018 05/05/2021 Left lower quadrant pain 05/03/2018 022 Left leg swelling 05/03/2018 05/05/2021 Microhematuria 01/19/2018 05/09/2022 Overview: Added automatically from request for surgery [id number] Presence of intraocular lens 11/14/2017 Bilateral posterior capsular opacification 11/1405/05/2021 History of detached retina repair 11/14/2017 05/05/2021 Strabismus 11/14/2017 05/05/2021 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] 2-3 201009/28/2012 Overview: ECG on admission: AF, [id number] on tele w/ pt in bed QT/QTc: 380/460 Previous AAD: N/A Coumadin dose: 7.5mg daily INRs: see epic, therapeutic since 05/20/10. Pt goes to [facility]. CrCl:greater than 100 Will start Tikosyn per Dr Courtney Grady Plan for DCC if the pt remains in AF, IC in chart. 06/15: INR 2.9 today. Continue on Coumadin with INR check in the AM. 06/16: INR 3.1 today. Continue Coumadin. INR in the am06/17: INR 3.4 today. Instructed patient to take 5mg today. INR check on Monday at [place]// . Pulmonary embolism 03/01/2010 05/05/2021 DVT (deep [...] of this encounter (statuses as of 08/15/2022) [facility]07[facility] History of Past illness Narrative* Problem Noted Date Resolved Date Syncope 11/02/2018 05/05/2021 Chest pain 05/03/2018 05/05/2021 Left lower quadrant pain 05/03/2018 022 Left leg swelling 05/03/2018 05/05/2021 Microhematuria 01/19/2018 05/09/2022 Overview: Added automatically from request for surgery [id number] Presence of intraocular lens 11/14/2017 Bilateral posterior capsular opacification 11/1405/05/2021 History of detached retina repair 11/14/2017 05/05/2021 Strabismus 11/14/2017 05/05/2021 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 Pt goes to [facility]. CrCl:greater than 100 Will start Tikosyn per Dr Courtney Grady Plan for DCC if the pt remains in AF, IC in chart. 06/15: INR 2.9 today. Continue on Coumadin with INR check in the AM. 06/16: INR 3.1 today. Continue Coumadin. INR in the am06/17: INR 3.4 today. Instructed patient to take 5mg today. INR check on Monday at [place]// . Pulmonary embolism 03/01/2010 05/05/2021 DVT (deep [...] of this encounter (statuses as of 09/29/2022) [facility]07[facility] History of Past illness Narrative* Problem Noted Date Diagnosed Date Resolved Date Syncope 11/02/2018 05/05/2021 Chest pain 05/03/2018 05/05/2021 Left lower quadrant pain 05/03/2018 Left leg swelling 05/03/2018 05/05/2021 Microhematuria 01/19/2018 05/09/2022 Overview: Added automatically from request for surgery [id number] Presence of intraocular lens 11/14/2017 05/05/2021 Bilateral posterior capsular opacification 11/14/2017 05/05/2021 History of detached retina repair 11/14/2017 05/05/2021 Strabismus 11/14/2017 05/05/2021 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 Mag draw in am// 03/09: Magnesium 1.9 today. Mag OX increased to 400mg BID. Mag draw in AM. 06/17: Magnesium 2.0 today. Will continue Mag OX 400mg BID at home. Mag blood draw on Monday. // Retinal detachment with reti nal defect, unspecified 06/14/2010 05/05/2021 Anticoagulation monitoring, INR range 2-3 06/14/2010 09/28/2012 Overview: ECG on admission: AF, [id number] on tele w/ pt in bed QT/QTc: 380/460 Previous AAD: N/A Coumadin dose: 7.5mg daily INRs: see epic, therapeutic since 05/20/10. Pt goes to [facility]. CrCl:greater than 100 Will start Tikosyn per Dr Courtney Grady Plan for DCC if the pt remains in AF, IC in chart. 06/15: INR 2.9 today. Continue on Coumadin with INR check in the AM. 06/16: INR 3.1 today. Continue Coumadin. INR in the am/06/17: INR 3.4 today. Instructed patient to take 5mg today. INR check on Monday at [place]// . Pulmonary embolism 03/01/2010 2 DVT (deep [...] of this encounter (statuses as of 11/09/2022) [facility] History of Past illness Narrative* Problem Noted Date Diagnosed Date Resolved Date Syncope 11/02/2018 05/05/2021 Chest pain 05/03/2018 05/05/2021 Left lower quadrant pain 05/03/2018 Left leg swelling 05/03/2018 05/05/2021 Microhematuria 01/19/2018 05/09/2022 Overview: Added automatically from request for surgery [id number] Presence of intraocular lens 11/14/2017 05/05/2021 Bilateral posterior capsular opacification 11/14/2017 05/05/2021 History of detached retina repair 11/14/2017 05/05/2021 Strabismus 11/14/2017 05/05/2021 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2021 Pseudophakia of both eyes 06/29/2015 On bridging treatment with lovenox 02/09/2015 05/05/2021 Overview: Next Action: [facility] Bridge Information: Day 6 - [...] to: Bridge Instructions Approved by [employer] [facility] [employer] Name or Type of Procedure Date Warfarin [...] 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 05/05/2021 [facility] terminal (current) use of anticoagulants 03/18/2011 05/05/2021 Overview: [...] 06/14/2010 09/28/2012 Overview: ECG on admission: AF, [id number] on tele w/ pt in bed QT/QTc: 380/460 Previous AAD: N/A Coumadin dose: 7.5mg daily INRs: see epic, therapeutic since 05/20/10. Pt goes to [facility]. CrCl:greater than 100 Will start Tikosyn per Dr Courtney Grady Plan for DCC if the pt remains in AF, IC in chart. 06/15: INR 2.9 today. Continue on Coumadin with INR check in the AM. 06/16: INR 3.1 today. Continue Coumadin. INR in the am// 06/17: INR 3.4 today. Instructed patient to take 5mg today. INR check on Monday at [place]// . Pulmonary embolism 03/01/2010 2 DVT (deep [...] of this encounter (statuses as of 11/19/2022) [facility] History of Past illness Narrative* Problem Noted Date Diagnosed Date Resolved Date Syncope 11/02/2018 05/05/2021 Chest pain 05/03/2018 05/05/2021 Left lower quadrant pain 05/03/2018 Left leg swelling 05/03/2018 05/05/2021 Microhematuria 01/19/2018 05/09/2022 Overview: Added automatically from request for surgery [id number] Presence of intraocular lens 11/14/2017 05/05/2021 Bilateral posterior capsular opacification 11/14/2017 05/05/2021 History of detached retina repair 11/14/2017 05/05/2021 Strabismus 11/14/2017 05/05/2021 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 INR check on Monday at [place]// . Pulmonary embolism 03/01/2010 2 DVT (deep [...] of this encounter (statuses as of 11/23/2022) [facility] History of Past illness Narrative* Problem Noted Date Diagnosed Date Resolved Date Syncope 11/02/2018 05/05/2021 Chest pain 05/03/2018 05/05/2021 Left lower quadrant pain 05/03/2018 Left leg swelling 05/03/2018 05/05/2021 Microhematuria 01/19/2018 05/09/2022 Overview: Added automatically from request for surgery [id number] Presence of intraocular lens 11/14/2017 05/05/2021 Bilateral posterior capsular opacification 11/14/2017 05/05/2021 History of detached retina repair 11/14/2017 05/05/2021 Strabismus 11/14/2017 05/05/2021 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 INR check on Monday at [place]// . Pulmonary embolism 03/01/2010 DVT (deep venous [...] of this encounter (statuses as of 11/23/2022) [facility] History of Past illness Narrative* Problem Noted Date Diagnosed Date Resolved Date Syncope 11/02/2018 05/05/2021 Chest pain 05/03/2018 05/05/2021 Left lower quadrant pain 05/03/2018 Left leg swelling 05/03/2018 05/05/2021 Microhematuria 01/19/2018 05/09/2022 Overview: Added automatically from request for surgery [id number] Presence of intraocular lens 11/14/2017 05/05/2021 Bilateral posterior capsular opacification 11/14/2017 05/05/2021 History of detached retina repair 11/14/2017 05/05/2021 Strabismus 11/14/2017 05/05/2021 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 INR check on Monday at [place]// . Pulmonary embolism 03/01/2010 2 DVT (deep [...] of this encounter (statuses as of 12/10/2022) [facility] History of Past illness Narrative* Problem Noted Date Diagnosed Date Resolved Date Syncope 11/02/2018 05/05/2021 Chest pain 05/03/2018 05/05/2021 Left lower quadrant pain 05/03/2018 Left leg swelling 05/03/2018 05/05/2021 Microhematuria 01/19/2018 05/09/2022 Overview: Added automatically from request for surgery [id number] Presence of intraocular lens 11/14/2017 05/05/2021 Bilateral posterior capsular opacification 11/14/2017 05/05/2021 History of detached retina repair 11/14/2017 05/05/2021 Strabismus 11/14/2017 05/05/2021 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 Continue Coumadin. INR in the am// 10: INR 3.4 today. Instructed patient to take [...] of this encounter (statuses as of 12/18/2022) [facility] History of Past illness Narrative* Problem Noted Date Diagnosed Date Resolved Date Syncope 11/02/2018 05/05/2021 Chest pain 05/03/2018 05/05/2021 Left lower quadrant pain 05/03/2018 Left leg swelling 05/03/2018 05/05/2021 Microhematuria 01/19/2018 05/09/2022 Overview: Added automatically from request for surgery [id number] Presence of intraocular lens 11/14/2017 05/05/2021 Bilateral posterior capsular opacification 11/14/2017 05/05/2021 History of detached retina repair 11/14/2017 05/05/2021 Strabismus 11/14/2017 05/05/2021 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 2 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2021 Pseudophakia of both eyes 06/29/2015 On bridging treatment with lovenox 02/09/2015 05/05/2021 Overview: Next Action: [facility] Bridge Information: Day 6 - [...] 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 05/05/2021 shelter (current) use of anticoagulants 03/18/2011 05/05/2021 Overview: [...] 06/14/2010 09/28/2012 Overview: ECG on admission: AF, [id number] on tele w/ pt in bed QT/QTc: [...] s/p Gastric bypass surgery Encounter for ziggy woodse ling and surveillance 10/14/2009 05/05/2021 Other specified disease of sebaceous glands 06/11/2008 05/05/2021 Corns and callosities 06/11/20082021 Contusion of foot 06/11/2008 05/05/2021 Torn rotator cuff 05/09/2022 documented as of this encounter (statuses as of 12/21/2022) [facility] History of Past illness Narrative* Problem Noted Date Diagnosed Date Resolved Date Syncope 11/02/2018 05/05/2021 Chest pain 05/03/2018 05/05/2021 Left lower quadrant pain 05/03/2018 Left leg swelling 05/03/2018 05/05/2021 Microhematuria 01/19/2018 05/09/2022 Overview: Added automatically from request for surgery [id number] Presence of intraocular lens 11/14/2017 05/05/2021 Bilateral posterior capsular opacification 11/14/2017 05/05/2021 History of detached retina repair 11/14/2017 05/05/2021 Strabismus 11/14/2017 05/05/2021 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 INR check on Monday at [place]// . Pulmonary embolism 03/01/2010 2 DVT (deep [...] of this encounter (statuses as of 12/22/2022) [facility]07-26-2019 History of Past illness Narrative* Problem Noted Date Diagnosed Date Resolved Date Syncope 11/02/2018 05/05/2021 Chest pain 05/03/2018 05/05/2021 Left lower quadrant pain 05/03/2018 Left leg swelling 05/03/2018 05/05/2021 Microhematuria 01/19/2018 05/09/2022 Overview: Added automatically from request for surgery [id number] Presence of intraocular lens 11/14/2017 05/05/2021 Bilateral posterior capsular opacification 11/14/2017 05/05/2021 History of detached retina repair 11/14/2017 05/05/2021 Strabismus 11/14/2017 05/05/2021 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2021 Pseudophakia of both eyes 06/29/2015 On bridging treatment with lovenox 02/09/2015 05/05/2021 Overview: Next Action: [facility] Bridge Information: Day 6 - [...] to: Bridge Instructions Approved by [employer] Name or Type of Procedure Date Warfarin [...] 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 05/05/2021 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 Pt goes to [facility] Coumadin Clinic. CrCl:greater than 100 Will [...] of this encounter (statuses as of 12/22/2022) [facility]2019 History of Past illness Narrative* Problem Noted Date Diagnosed Date Resolved Date Syncope 11/02/2018 05/05/2021 Chest pain 05/03/2018 05/05/2021 Left lower quadrant pain 05/03/2018 Left leg swelling 05/03/2018 05/05/2021 Microhematuria 01/19/2018 05/09/2022 Overview: Added automatically from request for surgery [id number] Presence of intraocular lens 11/14/2017 05/05/2021 Bilateral posterior capsular opacification 11/14/2017 05/05/2021 History of detached retina repair 11/14/2017 05/05/2021 Strabismus 11/14/2017 05/05/2021 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 INR check on Monday at [place]// . Pulmonary embolism 03/01/2010 2 DVT (deep [...] of this encounter (statuses as of 01/31/2023) [facility] History of Past illness Narrative* Problem Noted Date Diagnosed Date Resolved Date Syncope 11/02/2018 05/05/2021 Chest pain 05/03/2018 05/05/2021 Left lower quadrant pain 05/03/2018 Left leg swelling 05/03/2018 05/05/2021 Microhematuria 01/19/2018 05/09/2022 Overview: Added automatically from request for surgery [id number] Presence of intraocular lens 11/14/2017 05/05/2021 Bilateral posterior capsular opacification 11/14/2017 05/05/2021 History of detached retina repair 11/14/2017 05/05/2021 Strabismus 11/14/2017 05/05/2021 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2021 Pseudophakia of both eyes 06/29/2015 On bridging treatment with lovenox 02/09/2015 05/05/2021 Overview: Next Action: [facility] Bridge Information: Day 6 - [...] to: Bridge Instructions Approved by [employer] Name or Type of Procedure Date Warfarin [...] 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 05/05/2021 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 Pt goes to [facility] Coumadin Clinic. CrCl:greater than 100 Will start Tikosyn per Dr Courtney Grady Plan for DCC if the pt remains in AF, IC in chart. 06/15: INR 2.9 today. Continue on Coumadin with INR check in the AM. 06/16: INR 3.1 today. Continue Coumadin. INR in the am06/17: INR 3.4 today. Instructed patient to take 5mg today. INR check on Monday at [place]// . Pulmonary embolism 03/01/2010 2 DVT (deep [...] of this encounter (statuses as of 02/21/2023) [facility] History of Past illness Narrative* Problem Noted Date Diagnosed Date Resolved Date Syncope 11/02/2018 05/05/2021 Chest pain 05/03/2018 05/05/2021 Left lower quadrant pain 05/03/2018 Left leg swelling 05/03/2018 05/05/2021 Microhematuria 01/19/2018 05/09/2022 Overview: Added automatically from request for surgery [id number] Presence of intraocular lens 11/14/2017 05/05/2021 Bilateral posterior capsular opacification 11/14/2017 05/05/2021 History of detached retina repair 11/14/2017 05/05/2021 Strabismus 11/14/2017 05/05/2021 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 Pt goes to [facility] Cou[facility]in [facility]. CrCl:greater than 100 Will [...] of this encounter (statuses as of 02/23/2023) [facility] History of Past illness Narrative* Problem Noted Date Diagnosed Date Resolved Date Syncope 11/02/2018 05/05/2021 Chest pain 05/03/2018 05/05/2021 Left lower quadrant pain 05/03/2018 Left leg swelling 05/03/2018 05/05/2021 Microhematuria 01/19/2018 05/09/2022 Overview: Added automatically from request for surgery [id number] Presence of intraocular lens 11/14/2017 05/05/2021 Bilateral posterior capsular opacification 11/14/2017 05/05/2021 History of detached retina repair 11/14/2017 05/05/2021 Strabismus 11/14/2017 05/05/2021 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 Pt goes to [facility] Cou[facility]in Clinic. CrCl:greater than 100 Will start Tikosyn per Dr Courtney Grady Plan for DCC if the pt remains in AF, IC in chart. 06/15: INR 2.9 today. Continue on Coumadin with INR check in the AM. 06/16: INR 3.1 today. Continue Coumadin. INR in the am// 06/17: INR 3.4 today. Instructed patient to take 5mg today. INR check on Monday at [place]// . Pulmonary embolism 03/01/2010 2 DVT (deep [...] s/p Gastric bypass surgery Encounter for ziggy woodse ling and surveillance 10/14/2009 05/05/2021 Other specified disease of sebaceous glands 06/11/2008 05/05/2021 Corns and callosities 06/11/20082021 Contusion of foot 06/11/2008 05/05/2021 Torn rotator cuff 05/09/2022 documented as of this encounter (statuses as of 02/23/2023) [facility] History of Past illness Narrative* Problem Noted Date Diagnosed Date Resolved Date Syncope 11/02/2018 05/05/2021 Chest pain 05/03/2018 05/05/2021 Left lower quadrant pain 05/03/2018 Left leg swelling 05/03/2018 05/05/2021 Microhematuria 01/19/2018 05/09/2022 Overview: Added automatically from request for surgery [id number] Presence of intraocular lens 11/14/2017 05/05/2021 Bilateral posterior capsular opacification 11/14/2017 05/05/2021 History of detached retina repair 11/14/2017 05/05/2021 Strabismus 11/14/2017 05/05/2021 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2021 Pseudophakia of both eyes 06/29/2015 On bridging treatment with lovenox 02/09/2015 05/05/2021 Overview: Next Action: [facility] Bridge Information: Day 6 - [...] to: Bridge Instructions Approved by [facility] Name or Type of Procedure Date [...] 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 05/05/2021 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 Pt goes to [facility] Cou[facility]in Clinic. CrCl:greater than 100 Will start Tikosyn per Dr Courtney Grady Plan for DCC if the pt remains in AF, IC in chart. 06/15: INR 2.9 today. Continue on Coumadin with INR check in the AM. 06/16: INR 3.1 today. Continue Coumadin. INR in the am// 06/17: INR 3.4 today. Instructed patient to take 5mg today. INR check on Monday at [place]// . Pulmonary embolism 03/01/2010 2 DVT (deep [...] of this encounter (statuses as of 03/02/2023) [facility] History of Past illness Narrative* Problem Noted Date Diagnosed Date Resolved Date Syncope 11/02/2018 05/05/2021 Chest pain 05/03/2018 05/05/2021 Left lower quadrant pain 05/03/2018 Left leg swelling 05/03/2018 05/05/2021 Microhematuria 01/19/2018 05/09/2022 Overview: Added automatically from request for surgery [id number] Presence of intraocular lens 11/14/2017 05/05/2021 Bilateral posterior capsular opacification 11/14/2017 05/05/2021 History of detached retina repair 11/14/2017 05/05/2021 Strabismus 11/14/2017 05/05/2021 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 INR check on Monday at [place]// . Pulmonary embolism 03/01/2010 DVT (deep venous [...] of this encounter (statuses as of 05/12/2023) [facility] History of Past illness Narrative* Problem Noted Date Diagnosed Date Resolved Date Syncope 11/02/2018 05/05/2021 Chest pain 05/03/2018 05/05/2021 Left lower quadrant pain 05/03/2018 Left leg swelling 05/03/2018 05/05/2021 Microhematuria 01/19/2018 05/09/2022 Overview: Added automatically from request for surgery [id number] Presence of intraocular lens 11/14/2017 05/05/2021 Bilateral posterior capsular opacification 11/14/2017 05/05/2021 History of detached retina repair 11/14/2017 05/05/2021 Strabismus 11/14/2017 05/05/2021 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 INR check on Monday at [place]// . Pulmonary embolism 03/01/2010 DVT (deep venous [...] of this encounter (statuses as of 05/17/2023) [facility] History of Past illness Narrative* Problem Noted Date Diagnosed Date Resolved Date Syncope 11/02/2018 05/05/2021 Chest pain 05/03/2018 05/05/2021 Left lower quadrant pain 05/03/2018 Left leg swelling 05/03/2018 05/05/2021 Microhematuria 01/19/2018 05/09/2022 Overview: Added automatically from request for surgery [id number] Presence of intraocular lens 11/14/2017 05/05/2021 Bilateral posterior capsular opacification 11/14/2017 05/05/2021 History of detached retina repair 11/14/2017 05/05/2021 Strabismus 11/14/2017 05/05/2021 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2021 Pseudophakia of both eyes 06/29/2015 On bridging treatment with lovenox 02/09/2015 05/05/2021 Overview: Next Action: [facility] Bridge Information: Day 6 - [...] to: Bridge Instructions Approved by [employer] Name or Type of Procedure Date Warfarin [...] 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 05/05/2021 shelter (current) use of anticoagulants 03/18/2011 05/05/2021 Overview: [...] 06/14/2010 09/28/2012 Overview: ECG on admission: AF, [id number] on tele w/ pt in bed QT/QTc: [...] of this encounter (statuses as of 06/01/2023) [facility] History of Past illness Narrative* Problem Noted Date Diagnosed Date Resolved Date Syncope 11/02/2018 05/05/2021 Chest pain 05/03/2018 05/05/2021 Left lower quadrant pain 05/03/2018 Left leg swelling 05/03/2018 05/05/2021 Microhematuria 01/19/2018 05/09/2022 Overview: Added automatically from request for surgery [id number] Presence of intraocular lens 11/14/2017 05/05/2021 Bilateral posterior capsular opacification 11/14/2017 05/05/2021 History of detached retina repair 11/14/2017 05/05/2021 Strabismus 11/14/2017 05/05/2021 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 INR check on Monday at [place]// . Pulmonary embolism 03/01/2010 DVT (deep venous [...] of this encounter (statuses as of 06/06/2023) [facility] History of Past illness Narrative* Problem Noted Date Diagnosed Date Resolved Date Syncope 11/02/2018 05/05/2021 Chest pain 05/03/2018 05/05/2021 Left lower quadrant pain 05/03/2018 Left leg swelling 05/03/2018 05/05/2021 Microhematuria 01/19/2018 05/09/2022 Overview: Added automatically from request for surgery [id number] Presence of intraocular lens 11/14/2017 05/05/2021 Bilateral posterior capsular opacification 11/14/2017 05/05/2021 History of detached retina repair 11/14/2017 05/05/2021 Strabismus 11/14/2017 05/05/2021 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 INR check on Monday at [place]// . Pulmonary embolism 03/01/2010 DVT (deep venous [...] of this encounter (statuses as of 06/27/2023) [facility] History of Past illness Narrative* Problem Noted Date Diagnosed Date Resolved Date Syncope 11/02/2018 05/05/2021 Chest pain 05/03/2018 05/05/2021 Left lower quadrant pain 05/03/2018 Left leg swelling 05/03/2018 05/05/2021 Microhematuria 01/19/2018 05/09/2022 Overview: Added automatically from request for surgery [id number] Presence of intraocular lens 11/14/2017 05/05/2021 Bilateral posterior capsular opacification 11/14/2017 05/05/2021 History of detached retina repair 11/14/2017 05/05/2021 Strabismus 11/14/2017 05/05/2021 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2021 Pseudophakia of both eyes 06/29/2015 On bridging treatment with lovenox 02/09/2015 05/05/2021 Overview: Next Action: [facility] Bridge Information: Day 6 - [...] to: Bridge Instructions Approved by [employer] Name or Type of Procedure Date Warfarin [...] 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 05/05/2021 shelter (current) use of anticoagulants 03/18/2011 05/05/2021 Overview: [...] 06/14/2010 09/28/2012 Overview: ECG on admission: AF, [id number] on tele w/ pt in bed QT/QTc: [...] of this encounter (statuses as of 07/12/2023) [facility] No data available for this section [facility] Evaluation noteNo assessment information available [facility] Work Phone: Evaluation note* Diagnosis Medication management Encounter for long-term (current) use of other medications documented in this encounter [facility] note* Diagnosis BPH with urinary obstruction Hypertrophy of prostate with urinary obstruction and other lower urinary tract symptoms (LUTS) Major depressive disorder, recurrent episode, moderate (HCC) Major depressive disorder, recurrent episode, moderate Generalized anxiety disorder documented in this encounter [facility] note* Diagnosis Orthostatic hypotension- Primary Impaired glucose metabolism Impaired glucose tolerance test Frequent falls Personal history of fall documented in this encounter [facility] note* Diagnosis Hyperlipidemia, unspecified hyperlipidemia type- Primary Gastric bypass status for obesity Bariatric surgery status documented in this encounter [facility] note* Diagnosis Encounter for monitoring digoxin therapy- Primary Encounter for therapeutic drug monitoring Hyperlipidemia, unspecified hyperlipidemia type Chronic combined systolic and diastolic congestive heart failure (HCC) Chronic combined systolic and diastolic heart failure Atrial fibrillation with RVR (HCC) Atrial fibrillation Syncope, unspecified syncope type Orthostatic hypotension Exertional dyspnea Other dyspnea and respiratory abnormality documented in this encounter [facility] note* Diagnosis Moderate anxiety- Primary Moderate episode of recurrent major depressive disorder (HCC) documented in this encounter [facility] note* Diagnosis Major depressive disorder, recurrent episode, moderate (HCC)- Primary Major depressive disorder, recurrent episode, moderate LANA (generalized anxiety disorder) Generalized anxiety disorder Chronic post-traumatic stress disorder (PTSD) documented in this encounter [facility] note* Diagnosis Atrial fibrillation with RVR (HCC)- Primary Atrial fibrillation Hyperlipidemia, unspecified hyperlipidemia type Syncope, unspecified syncope type Orthostatic hypotension Encounter for monitoring digoxin therapy Encounter for therapeutic drug monitoring Major depressive disorder, recurrent episode, moderate (HCC) Major depressive disorder, recurrent episode, moderate documented in this encounter [facility] note* Diagnosis Plantar fascial fibromatosis of right foot- Primary Multiple hemangiomas Hemangioma of unspecified site documented in this encounter [facility] note* Diagnosis Gastric bypass status for obesity Bariatric surgery status Major depressive disorder, recurrent episode, moderate (HCC) Major depressive disorder, recurrent episode, moderate Generalized anxiety disorder Hyperlipidemia, unspecified hyperlipidemia type documented in this encounter [facility] note* Diagnosis Atrial fibrillation with RVR (HCC)- Primary Atrial fibrillation Chronic combined systolic and diastolic congestive heart failure (HCC) Chronic combined systolic and diastolic heart failure Atrial fibrillation, unspecified type (HCC) documented in this encounter [facility] note* Diagnosis Atrial fibrillation with RVR (HCC)- Primary Atrial fibrillation Syncope, unspecified syncope type documented in this encounter [facility] note* Diagnosis Major depressive disorder, recurrent episode, moderate (HCC) Major depressive disorder, recurrent episode, moderate Generalized anxiety disorder documented in this encounter [facility] note* Diagnosis Medicare annual wellness visit, subsequent- Primary Routine general medical examination at a [facility] facility Varicose veins of both legs with edema Atrial fibrillation with RVR (HCC) Atrial fibrillation Major depressive disorder, recurrent episode, moderate (HCC) Major depressive disorder, recurrent episode, moderate Hyperlipidemia, unspecified hyperlipidemia type Impaired fasting glucose Vitamin D deficiency Unspecified vitamin D deficiency documented in this encounter [facility] note* Diagnosis Major depressive disorder, recurrent episode, moderate (HCC)- Primary Major depressive disorder, recurrent episode, moderate LANA (generalized anxiety disorder) Generalized anxiety disorder Chronic post-traumatic stress disorder (PTSD) documented in this encounter [facility] note* Diagnosis Impacted cerumen, left ear- Primary Generalized anxiety disorder Balanitis Balanoposthitis documented in this encounter [facility] note* Diagnosis Arthritis of uxcbuero-vkrfqpxim-ilafkryie joint of left hand- Primary [facility] Diagnosis Arthritis of gymlwxea-nknwdugyf-rmwwflqgl joint of left hand [facility] Diagnosis Arthritis of flacpvpi-eahrbeykk-rdywnsegy joint of left hand [facility] Diagnosis Arthritis of nhyopdrl-ubvxkwbne-dsrquboac joint of left hand- Primary [facility] Diagnosis Arthritis of srzifcpq-aiylkwunv-tsryvbqwh joint of left hand- Primary [facility] Diagnosis Left hand pain- Primary Pain in soft tissues of limb [facility] Diagnosis Arthritis of yuneuuee-vxpdhdqrc-xxwtpravz joint of left hand- Primary documented in this [facility] Left hand pain Pain in soft tissues of limb [facility] Diagnosis Atrial fibrillation with RVR ([facility])- Primary Atrial fibrillation Impaired fasting glucose Chronic combined systolic and diastolic congestive heart failure (HCC) Chronic combined systolic and diastolic heart failure Stage 1 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 ([facility]) Other chronic pulmonary embolism without acute cor pulmonale (HCC) [facility] Diagnosis Arthritis of goxjbvgn-vvvqqjaro-ftqbwxjgv joint of left hand- Primary documented in this encounter [facility]* Diagnosis Arthritis of lxhaqxqr-wguinwgyq-yupryyppo joint of left hand- Primary documented in this encounter [facility] note* Diagnosis Arthritis of ksgalmkj-fzahsnjtx-aycbzftwq joint of left hand- Primary documented in this encounter [facility] note* Diagnosis Arthritis of mmjflhdu-ysohyvbdr-uvajgnoof joint of left hand- Primary documented in this encounter [facility] note* Diagnosis Arthritis of reyhefak-aykhxgwlw-wkycqxnis joint of left hand- Primary documented in this encounter [facility] note* Diagnosis Balanitis- Primary Balanoposthitis Impaired fasting glucose Hyperlipidemia, unspecified hyperlipidemia type Generalized anxiety disorder Major depressive disorder, recurrent episode, moderate (HCC) Major depressive disorder, recurrent episode, moderate Urge incontinence of urine Urge incontinence LEXIE (obstructive sleep apnea) Obstructive sleep apnea (adult) (pediatric) documented in this encounter [facility] note* Diagnosis Balanitis Balanoposthitis Urge incontinence of urine Urge incontinence documented in this encounter [facility] note* Diagnosis Generalized anxiety disorder documented in this encounter [facility] note* Diagnosis Tibial pain- Primary Disorder of bone and cartilage, unspecified Idiosyncratic reaction to medication after proper dose, subsequent encounter Pruritus Unspecified pruritic disorder documented in this encounter [facility] note* Diagnosis Major depressive disorder, recurrent episode, moderate (HCC) Major depressive disorder, recurrent episode, moderate Generalized anxiety disorder documented [facility] this [facility]* Diagnosis Arthritis of lbuejcil-jvvpirlla-vhghkufup joint of left hand- Primary Primary osteoarthritis of first carpometacarpal joint of left hand documented in this encounter [facility] note* Diagnosis Edema of both legs- Primary Edema Tinea pedis of right foot Dermatophytosis of foot Special screening for malignant neoplasms, colon documented in this encounter [facility] note* Diagnosis Urge incontinence of urine- Primary Urge incontinence Balanitis Balanoposthitis Screening for colon cancer- Primary Special screening for malignant neoplasms, colon documented in this encounter [facility] note* Diagnosis Screening for colon cancer- Primary Special screening for malignant neoplasms, colon Special screening for malignant neoplasms, colon documented [facility]* Diagnosis Atrial fibrillation with RVR (HCC)- Primary Atrial fibrillation Major depressive disorder, recurrent episode, moderate (HCC) Major depressive disorder, recurrent episode, moderate 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) Atrial fibrillation, unspecified type (HCC) documented [facility] Diagnosis Urge incontinence of urine Urge incontinence documented in this encounter [facility] note* Diagnosis Medicare annual wellness visit, subsequent- Primary Routine general medical examination at a [facility] Atrial fibrillation with RVR (HCC) Atrial fibrillation BPH with urinary obstruction Hypertrophy of prostate with urinary obstruction and other lower urinary tract symptoms (LUTS) shelter current use of anticoagulant Long-term (current) use of anticoagulants Bursitis of other bursa of right hip Major depressive disorder, recurrent episode, moderate (HCC) Major depressive disorder, recurrent episode, moderate Generalized anxiety disorder Hyperlipidemia, unspecified hyperlipidemia type Impaired fasting glucose Cervicalgia documented in this [facility]* Diagnosis Bursitis of other bursa of right hip documented in this [facility]* Diagnosis Cervical spine pain- Primary Cervical spinal stenosis Spinal stenosis in cervical region Spondylolisthesis of cervical region Cervical spondylosis Cervical spondylosis without myelopathy Cervical arthritis with myelopathy [facility]* Diagnosis Major depressive disorder, recurrent severe without psychotic features (HCC)- Primary Major depressive disorder, recurrent episode, severe, without mention of psychotic behavior Generalized anxiety disorder Chronic post-traumatic stress disorder (PTSD) documented in this encounter [facility] note* Diagnosis Atrial fibrillation with RVR [...] in this encounter [facility] note* Diagnosis Recurrent major depressive disorder, in partial remission (HCC)- Primary Generalized anxiety disorder Chronic post-traumatic stress disorder (PTSD) documented [facility]* Diagnosis Other chronic pulmonary embolism without acute cor pulmonale (HCC) documented in this encounter [facility] note* Diagnosis Atrial fibrillation with RVR [...] 30-34.9 Obesity, unspecified documented in this encounter [facility] note* Diagnosis Urge incontinence of urine Urge incontinence documented in this encounter [facility] note* Diagnosis Hyperlipidemia, unspecified hyperlipidemia type documented in this encounter [facility] note* Diagnosis Balanitis Balanoposthitis documented in this encounter [facility] note* Diagnosis Recurrent major depressive disorder, in partial remission (HCC)- Primary Generalized anxiety disorder Chronic post-traumatic stress disorder (PTSD) documented in this encounter [facility] note* Diagnosis Hyperlipidemia, unspecified hyperlipidemia type- Primary LEXIE (obstructive sleep apnea) Obstructive sleep apnea (adult) (pediatric) Balanitis Balanoposthitis Impaired fasting glucose Atrial fibrillation with RVR (HCC) Atrial fibrillation Vitamin D deficiency Unspecified vitamin D deficiency documented in this encounter [facility] note* Diagnosis Tibial pain Disorder of bone and cartilage, unspecified documented in this encounter [facility] note* Diagnosis Generalized anxiety disorder documented in this encounter [facility] note* Diagnosis Left wrist pain- Primary Pain in joint, forearm documented in this encounter [facility] note* Diagnosis Left wrist pain Pain in joint, forearm documented in this encounter [facility] note* Diagnosis Arthritis of iutuddnt-qcctowsmy-ylzqwfzno joint of left hand- Primary documented in this encounter [facility] note* Diagnosis Wrist pain, left- Primary Pain in joint, forearm Primary osteoarthritis of left wrist [facility] Diagnosis Arthritis of wkhqmjbz-cpumslehi-sbzidoiad joint of left hand [facility] Diagnosis Atrial fibrillation with RVR (HCC)- [...] Stage 1 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 ([facility]) documented in this [facility]* Diagnosis Medicare annual wellness visit, subsequent- Primary Routine general medical examination at a [facility] Hyperlipidemia, unspecified hyperlipidemia type Balanitis Balanoposthitis [...] Stage 1 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 ([facility]) LEXIE (obstructive sleep apnea) Obstructive sleep apnea (adult) (pediatric) BPH with urinary obstruction Hypertrophy of prostate with urinary obstruction and other lower urinary tract symptoms (LUTS) documented in this [facility]* Diagnosis Hyperlipidemia, unspecified hyperlipidemia type documented in this [facility]* Diagnosis Chronic post-traumatic stress disorder (PTSD)- [...] not elsewhere classified documented in this [facility]* Diagnosis Acute cough- Primary Acute non-recurrent frontal sinusitis Stage 1 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 ([facility]) Acute cough documented in this [facility]* Diagnosis Acute cough documented in this [facility]* Diagnosis Bicipital tendinitis of right shoulder- Primary Sprain of right rotator cuff capsule, initial encounter Impingement syndrome of right shoulder [facility] Diagnosis Excessive bleeding- Primary documented in this [facility]* Diagnosis Generalized anxiety disorder- Primary Psychosocial [...] of other medications [facility] Diagnosis Chronic combined systolic and diastolic congestive heart failure (HCC)- Primary Chronic combined systolic and diastolic heart failure documented [facility] this [facility]* Diagnosis Urinary frequency- Primary documented [facility] this [facility]* Diagnosis Chronic obstructive pulmonary disease, unspecified COPD type ([facility]) documented in this [facility]* Diagnosis Chronic obstructive pulmonary disease, unspecified COPD type (HCC) documented in this [facility]* Diagnosis Cough, unspecified type documented in this [facility]* Diagnosis Cough variant asthma (HCC)- Primary Cough variant asthma Cough, unspecified type documented in this [facility]* Diagnosis Onset Date Resolution Status Admit Date Atrial fibrillation noneactive September 18, 2024 10:53am [facility] Work Phone: [facility]* Diagnosis APPOINTMENT CANCELLED- Primary documented [facility] this [facility]* Diagnosis Stage 1 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 ([facility])- Primary documented [facility] this [facility]* Diagnosis Fall, initial encounter- Primary Acute midline low back pain without sciatica Injury of head, initial encounter Acute pain of both shoulders superintendent terminal (current) use of anticoagulants Long-term (current) use of anticoagulants Acute midline low back pain without sciatica Acute pain of both shoulders documented in this [facility]* Diagnosis Acute midline low back pain without sciatica Acute pain of both shoulders documented in this [facility]* Diagnosis Major depressive disorder, recurrent severe without psychotic features (HCC)- Primary Major depressive disorder, recurrent episode, severe, without mention of psychotic behavior Insomnia due to other mental disorder Generalized anxiety disorder Psychosocial stressors Other psychological or physical stress, not elsewhere classified Encounter for long-term (current) use of medications Encounter for long-term (current) use of other medications documented [facility] Diagnosis Mild intermittent asthma without complication [...] glucose Orthostatic hypotension documented [facility] Diagnosis Balanitis- Primary Balanoposthitis Urge incontinence of urine Urge incontinence Screening for genitourinary condition Screening for other and unspecified genitourinary condition documented in this [facility]* Diagnosis Generalized anxiety disorder- Primary Psychosocial stressors Other psychological or physical stress, not elsewhere classified Insomnia due to other mental disorder Recurrent major depressive disorder, in partial remission Encounter for long-term (current) use of medications Encounter for long-term (current) use of other medications [facility] No data available for this section [facility] Discharge instructions Additional Instructions If any bleeding direct pressure and ice to the area. Follow-up with your dentist to get a new partial plate made. You may also try Dr[facility] here in [place] to see if they can do that work also.[facility] Work Phone: Reason for referral (narrative)* Diagnostic Procedure Only (Routine) - Closed Specialty Diagnoses / Procedures Referred By Sweetie snowden Referred To Contact XR IMAGING Diagnoses Tibial pain Procedures XR TIBIA FIBULA 2V AP/LAT RIGHT RADIOLOGIC EXAMINATION TIBIA & FIBULA 2 VIEWS Florian Gonzalez MD [address] [place] [address] [place] [id number] Referral ID Status Reason Start Date Expiration Date V isits Requested Visits Authorized [id number] Closed Auto-Generate d Referral 12/09/2022 01/08/2024 1 1 [facility] for referral (narrative)* Outpatient Procedure (Routine) - Authorized Specialty Diagnoses / [facility] Referred To Contact [facility] Diagnoses Special screening for malignant neoplasms, colon Procedures COLONOSCOPY SCREENING COLONOSCOPY FLX DX W/COLLJ SPEC WHEN Florian Lebron MD [address] [place] [address] [facility] Disease [address] [address] Referral ID Status Reason Start Date Expiration Date Visits Requested Visits Authorized [id number] Authorized Auto-Generat ed Referral 02/01/2024 1 1 [facility] for referral (narrative)* Outpatient Procedure (Routine) - Closed Specialty Diagnoses / Procedures [facility] Referred To Contact [facility] Diagnoses Special screening for malignant neoplasms, colon Procedures COLONOSCOPY SCREENING COLONOSCOPY FLX DX W/COLLJ SPEC WHEN Florian Lebron MD [address] [place] [address] [facility] Disease [address] [address] Referral ID Status Reason Start Date Expiration Date V isits Requested Visits Authorized [id number] Closed Auto-Generate d Referral 01/31/2023 02/01/2024 1 1 [facility] for referral (narrative)* Diagnostic Procedure Only (Routine) - Closed Specialty Diagnoses / Procedures [facility] Referred To Contact XR IMAGING Diagnoses Tibial pain Procedures XR TIBIA FIBULA 2V AP/LAT RIGHT RADIOLOGIC EXAMINATION TIBIA & FIBULA 2 VIEWS Florian Gonzalez MD [address] [place] [address] [place] [id number] Referral ID Status Reason Start Date Expiration Date V isits Requested Visits Authorized [id number] Closed Auto-Generate d Referral 12/09/2022 01/08/2024 1 1 [facility] for referral (narrative)No reason for referral information availableWKet[facility] Work Phone: Reason for visit Narrative* Consultation (Routine) - Authorized Specialty Diagnoses / Procedures Referred By Sweetie snowden Referred To Contact Occupational Therapy Diagnoses Arthritis of ibyhzgae-fyidsxrkj-wjws ezoid joint of left hand Procedures [place] OFFICE/OUTPATIENT NEW HIGH MDM 60-74 MINUTES Berenice Hanks PA-C 1 [facility] [address] [place] [address] [address] [address] [place] [address] Referral ID Status Reason Start Date Expiration Date Visits Requested Visits Authorized [id number] Authorized Specialty Services Required 05/31/2022 05/31/2023 99 99 [facility] for visit Narrative* Outpatient Procedure (Routine) - Closed Specialty Diagnoses / Procedures [facility] Referred To Contact [facility] Diagnoses Special screening for malignant neoplasms, colon Procedures COLONOSCOPY SCREENING COLONOSCOPY FLX DX W/COLLJ SPEC WHEN PFRMD Florian Gonzalez MD [address] [place] [address] [facility] [address] [place] [address] Referral ID Status Reason Start Date Expiration Date V isits Requested Visits Authorized [id number] Closed Auto-Generate d Referral 01/31/2023 02/01/2024 1 1 [facility] for visit Narrative* Diagnostic Procedure Only (Routine) - Closed Specialty Diagnoses / Procedures Referred By Sweetie Referred To Contact XR IMAGING Diagnoses Tibial pain Procedures XR TIBIA FIBULA 2V AP/LAT RIGHT RADIOLOGIC EXAMINATION TIBIA & FIBULA 2 VIEWS Florian Gonzalez MD [address] [place] [address] [place] [id number] Referral ID Status Reason Start Date Expiration Date V isits Requested Visits Authorized [id number] Closed Auto-Generate d Referral 12/09/2022 01/08/2024 1 1 [facility] for visit Narrative* Diagnostic Procedure Only (Urgent) - Closed Specialty Diagnoses / Procedures Referred By Sweetie t Referred To Contact XR IMAGING Diagnoses Acute pain of both shoulders Procedures XR SHOULDER GENERAL 3V OR MORE AP/TRUE AP/OTHER LEFT RADEX SHOULDER COMPLETE MINIMUM 2 VIEWS Shea Etienne, PRE OWNED SALES MANAGER.INSIDE FINISHER [address] [place] [address] Phone: tel: fax: [place] [id number] Referral ID Status Reason Start Date Expiration Date V isits Requested Visits Authorized [id number] Closed Auto-Generate d Referral 10/09/2024 11/08/2025 1 1 [facility] Summary Purpose Family History No Family History [...] Yes June 30, 2021 4:16pm Power of Primer Boxer Yes June 30 4:16pm Documents on File Type Date Recorded Patient Director Marketing Analytics Expl anation Advance Directive(s) 04/20/2020 12:07 PM [...] Documents on File Type Date Recorded Patient Director Marketing Analytics Expl anation Advance Directive(s) 12/18/2009 9:03 PM Advance Directive Response Recorded Date/ Time Living Will Yes January 29 5:30am Power of Primer Boxer Yes January 29, 2022 5:30am Name of Medical Power of Primer Boxer TEREZA PAINTER R January 29, 2022 5:30am Advance Directive Response Recorded Date/ Time Name of Medical Power of Primer Boxer TEREZA PAINTER R January 29, 2022 4:30am Name of Medical Power of Primer Boxer Tereza Painter r March 13, 2022 11:17pm Living Will Yes March 13 11:17pm Power of Primer Boxer Yes March 13, 2022 11:17pm Documents on File Type Date Recorded Patient Director Marketing Analytics Expl anation Advance Directive(s) 12/18/2009 9:03 PM [...] Do you have a Healthcare Power of Primer Boxer? Yes July 22, 2024 4:06pm Name of Medical Power of Primer Boxer tereza July 22, 2024 4:06pm Chief Complaint [...] region Cervical spondylosis Procedures MR cervical spine Jerry Faria DO [address] [place] [address] Referral ID Status Reason Start Date Expiration Date V isits Requested Visits Authorized [id number] Pending Review 05/15/2023 11/11/2023 1 1 Specialty Diagnoses / Procedures Referred By Contac t Referred To Contact [facility] Diagnoses Bursitis of other bursa of right hip Procedures CONSULT TO PHYSICAL THERAPY PHYSICAL THERAPY EVALUATION HIGH COMPLEX 45 MINS Florian Gonzalez MD [address] [place] [address] [facility] [address] [place] [address] Referral ID Status Reason Start Date Expiration Date Visits Requested Visits Authorized [id number] Authorized Auto-Generat ed Referral 04/10/2023 04/09/2024 99 99 Specialty Diagnoses / Procedures Referred By Contac t Referred To Contact Urology Diagnoses Balanitis Urge incontinence of urine Procedures CONSULT TO UROLOGY OFFICE/OUTPATIENT [facility] 60-74 MINUTES Florian Gonzalez MD [address] [place] [address] Referral ID Status Reason Start Date Expiration Date Visits Requested Visits Authorized [id number] Authorized PCP Requested Referral 11/08/2022 11/08/2023 1 1 Specialty Diagnoses / Procedures Referred By Contac t Referred To Contact Ent - Otolaryngology Diagnoses Impacted cerumen, left ear Procedures CONSULT TO ENT Florian Gonzalez MD [address] [place] [address] Referral ID Status Reason Start Date Expiration Date Visits Requested Visits Authorized [id number] Ref Not Required PCP Requested Referral 06/13/2022 06/13/2023 1 1 Specialty Diagnoses / Procedures Referred By Contac t Referred To Contact Psychology Diagnoses Major depressive disorder, recurrent episode, moderate (HCC) LANA (generalized anxiety disorder) Chronic post-traumatic stress disorder (PTSD) Procedures CONSULT TO PSYCHOLOGY OFFICE/OUTPATIENT [facility] 60-74 MINUTES Quincy Alonzo, PRE OWNED SALES MANAGER.INSIDE FINISHER [address] [place] [address] Referral ID Status Reason Start Date Expiration Date Visits Requested Visits Authorized [id number] Pending Review PCP Requested Referral 05/18/2022 05/18/2023 [...] section and content) DATE CREATED AUTHOR 03/02/2019 [facility] DATE CREATED AUTHOR AUTHOR'S ORGANIZ ATION 06/24/2019 [facility] DATE CREATED AUTHOR [facility]S OR[facility]IZ AT[facility] DATE CREATED AUTHOR AUTHOR'S ORGANIZ ATION 04/24/2020 [facility] DATE CREATED AUTHOR AUTHOR'S ORGANIZ ATION 02/13/2022 [facility] ([place]) DATE CREATED AUTHOR AUTHOR'S ORGANIZ ATION 02/18/2022 [facility] DATE CREATED AUTHOR AUTHOR'S ORGANIZ ATION 02/18/2022 [facility] DATE CREATED AUTHOR AUTHOR'S ORGANIZ ATION 01/21/2023 [facility] DATE CREATED AUTHOR AUTHOR'S ORGANIZ ATION 07/12/2023 [facility] DATE CREATED AUTHOR AUTHOR'S ORGANIZ ATION 09/10/2023 [facility] DATE CREATED AUTHOR AUTHOR'S ORGANIZ ATION 05/28/2024 [facility] DATE CREATED AUTHOR AUTHOR'S ORGANIZ ATION 12/29/2024 [facility] DATE CREATED AUTHOR AUTHOR'S ORGANIZ ATION 12/29/2024 [facility] Goals (unrecognized section and content) Goals may [...] or prosecute any alcohol or drug abuse patient.[facility] the event this information is protected by the Federal Confidentiality of Alcohol and Drug Abuse Patient Records regulations: The Federal rules restrict any use of the information to criminally investigate or prosecute any alcohol or drug abuse patient.[facility] the event this information is protected by the Federal Confidentiality of Alcohol and Drug Abuse Patient Records regulations: The Federal rules restrict any use of the information to criminally investigate or prosecute any alcohol or drug abuse patient.[facility] the event this information is protected by the Federal Confidentiality of Alcohol and Drug Abuse Patient Records regulations: The Federal rules restrict any use of the information to criminally investigate or prosecute any alcohol or drug abuse patient.[facility] the event this information is protected by the Federal Confidentiality of Alcohol and Drug Abuse Patient Records regulations: The Federal rules restrict any use of the information to criminally investigate or prosecute any alcohol or drug abuse patient.[facility] the event this information is protected by the Federal Confidentiality of Alcohol and Drug Abuse Patient Records regulations: The Federal rules restrict any use of the information to criminally investigate or prosecute any alcohol or drug abuse patient.[facility]In the event this information is protected by the Federal Confidentiality of Alcohol and Drug Abuse Patient Records regulations: The Federal rules restrict any use of the information to criminally investigate or prosecute any alcohol or drug abuse patient.[facility] the event this information is protected by the Federal Confidentiality of Alcohol and Drug Abuse Patient Records regulations: The Federal rules restrict any use of the information to criminally investigate or prosecute any alcohol or drug abuse patient.[facility]In the event this information is protected by the Federal Confidentiality of Alcohol and Drug Abuse Patient Records regulations: The Federal rules restrict any use of the information to criminally investigate or prosecute any alcohol or drug abuse patient.[facility]In the event this information is protected by the Federal Confidentiality of Alcohol and Drug Abuse Patient Records regulations: The Federal rules restrict any use of the information to criminally investigate or prosecute any alcohol or drug abuse patient.[facility]In the event this information is protected by the Federal Confidentiality of Alcohol and Drug Abuse Patient Records regulations: The Federal rules restrict any use of the information to criminally investigate or prosecute any alcohol or drug abuse patient.[facility]In the event this information is protected by the Federal Confidentiality of Alcohol and Drug Abuse Patient Records regulations: The Federal rules restrict any use of the information to criminally investigate or prosecute any alcohol or drug abuse patient.[facility]In the event this information is protected by the Federal Confidentiality of Alcohol and Drug Abuse Patient Records regulations: The Federal rules restrict any use of the information to criminally investigate or prosecute any alcohol or drug abuse patient.[facility]In the event this information is protected by the Federal Confidentiality of Alcohol and Drug Abuse Patient Records regulations: The Federal rules restrict any use of the information to criminally investigate or prosecute any alcohol or drug abuse patient.[facility]In the event this information is protected by the Federal Confidentiality of Alcohol and Drug Abuse Patient Records regulations: The Federal rules restrict any use of the information to criminally investigate or prosecute any alcohol or drug abuse patient.[facility]In the event this information is protected by the Federal Confidentiality of Alcohol and Drug Abuse Patient Records regulations: The Federal rules restrict any use of the information to criminally investigate or prosecute any alcohol or drug abuse patient.[facility]In the event this information is protected by the Federal Confidentiality of Alcohol and Drug Abuse Patient Records regulations: The Federal rules restrict any use of the information to criminally investigate or prosecute any alcohol or drug abuse patient.[facility]In the event this information is protected by the Federal Confidentiality of Alcohol and Drug Abuse Patient Records regulations: The Federal rules restrict any use of the information to criminally investigate or prosecute any alcohol or drug abuse patient.[facility]In the event this information is protected by the Federal Confidentiality of Alcohol and Drug Abuse Patient Records regulations: The Federal rules restrict any use of the information to criminally investigate or prosecute any alcohol or drug abuse patient.[facility]In the event this information is protected by the Federal Confidentiality of Alcohol and Drug Abuse Patient Records regulations: The Federal rules restrict any use of the information to criminally investigate or prosecute any alcohol or drug abuse patient.[facility]In the event this information is protected by the Federal Confidentiality of Alcohol and Drug Abuse Patient Records regulations: The Federal rules restrict any use of the information to criminally investigate or prosecute any alcohol or drug abuse patient.[facility]In the event this information is protected by the Federal Confidentiality of Alcohol and Drug Abuse Patient Records regulations: The Federal rules restrict any use of the information to criminally investigate or prosecute any alcohol or drug abuse patient.[facility]In the event this information is protected by the Federal Confidentiality of Alcohol and Drug Abuse Patient Records regulations: The Federal rules restrict any use of the information to criminally investigate or prosecute any alcohol or drug abuse patient.[facility]In the event this information is protected by the Federal Confidentiality of Alcohol and Drug Abuse Patient Records regulations: The Federal rules restrict any use of the information to criminally investigate or prosecute any alcohol or drug abuse patient.[facility]In the event this information is protected by the Federal Confidentiality of Alcohol and Drug Abuse Patient Records regulations: The Federal rules restrict any use of the information to criminally investigate or prosecute any alcohol or drug abuse patient.[facility]In the event this information is protected by the Federal Confidentiality of Alcohol and Drug Abuse Patient Records regulations: The Federal rules restrict any use of the information to criminally investigate or prosecute any alcohol or drug abuse patient.[facility]In the event this information is protected by the Federal Confidentiality of Alcohol and Drug Abuse Patient Records regulations: The Federal rules restrict any use of the information to criminally investigate or prosecute any alcohol or drug abuse patient.[facility]In the event this information is protected by the Federal Confidentiality of Alcohol and Drug Abuse Patient Records regulations: The Federal rules restrict any use of the information to criminally investigate or prosecute any alcohol or drug abuse patient.[facility]In the event this information is protected by the Federal Confidentiality of Alcohol and Drug Abuse Patient Records regulations: The Federal rules restrict any use of the information to criminally investigate or prosecute any alcohol or drug abuse patient.[facility] [place] [facility]In the event this information is protected by the Federal Confidentiality of Alcohol and Drug Abuse Patient Records regulations: The Federal rules restrict any use of the information to criminally investigate or prosecute any alcohol or drug abuse patient.[facility] [place] [facility]In the event this information is protected by the Federal Confidentiality of Alcohol and Drug Abuse Patient Records regulations: The Federal rules restrict any use of the information to criminally investigate or prosecute any alcohol or drug abuse patient.[facility] [place] [facility]In the event this information is protected by the Federal Confidentiality of Alcohol and Drug Abuse Patient Records regulations: The Federal rules restrict any use of the information to criminally investigate or prosecute any alcohol or drug abuse patient.[facility] [place] [facility]In the event this information is protected by the Federal Confidentiality of Alcohol and Drug Abuse Patient Records regulations: The Federal rules restrict any use of the information to criminally investigate or prosecute any alcohol or drug abuse patient.[facility]In the event this information is protected by the Federal Confidentiality of Alcohol and Drug Abuse Patient Records regulations: The Federal rules restrict any use of the information to criminally investigate or prosecute any alcohol or drug abuse patient.[facility]In the event this information is protected by the Federal Confidentiality of Alcohol and Drug Abuse Patient Records regulations: The Federal rules restrict any use of the information to criminally investigate or prosecute any alcohol or drug abuse patient.[facility]In the event this information is protected by the Federal Confidentiality of Alcohol and Drug Abuse Patient Records regulations: The Federal rules restrict any use of the information to criminally investigate or prosecute any alcohol or drug abuse patient.[facility] [place] [facility]In the event this information is protected by the Federal Confidentiality of Alcohol and Drug Abuse Patient Records regulations: The Federal rules restrict any use of the information to criminally investigate or prosecute any alcohol or drug abuse patient.[facility] [place] [facility]In the event this information is protected by the Federal Confidentiality of Alcohol and Drug Abuse Patient Records regulations: The Federal rules restrict any use of the information to criminally investigate or prosecute any alcohol or drug abuse patient.[facility] [place] [facility]In the event this information is protected by the Federal Confidentiality of Alcohol and Drug Abuse Patient Records regulations: The Federal rules restrict any use of the information to criminally investigate or prosecute any alcohol or drug abuse patient.[facility] [place] [facility]In the event this information is protected by the Federal Confidentiality of Alcohol and Drug Abuse Patient Records regulations: The Federal rules restrict any use of the information to criminally investigate or prosecute any alcohol or drug abuse patient.[facility] [place] [facility]In the event this information is protected by the Federal Confidentiality of Alcohol and Drug Abuse Patient Records regulations: The Federal rules restrict any use of the information to criminally investigate or prosecute any alcohol or drug abuse patient.[facility] [place] [facility]In the event this information is protected by the Federal Confidentiality of Alcohol and Drug Abuse Patient Records regulations: The Federal rules restrict any use of the information to criminally investigate or prosecute any alcohol or drug abuse patient.[facility] [place] [facility]In the event this information is protected by the Federal Confidentiality of Alcohol and Drug Abuse Patient Records regulations: The Federal rules restrict any use of the information to criminally investigate or prosecute any alcohol or drug abuse patient.[facility] [place] [facility]In the event this information is protected by the Federal Confidentiality of Alcohol and Drug Abuse Patient Records regulations: The Federal rules restrict any use of the information to criminally investigate or prosecute any alcohol or drug abuse patient.[facility] [place] [facility]In the event this information is protected by the Federal Confidentiality of Alcohol and Drug Abuse Patient Records regulations: The Federal rules restrict any use of the information to criminally investigate or prosecute any alcohol or drug abuse patient.[facility] [place] [facility]In the event this information is protected by the Federal Confidentiality of Alcohol and Drug Abuse Patient Records regulations: The Federal rules restrict any use of the information to criminally investigate or prosecute any alcohol or drug abuse patient.[facility] [place] [facility]In the event this information is protected by the Federal Confidentiality of Alcohol and Drug Abuse Patient Records regulations: The Federal rules restrict any use of the information to criminally investigate or prosecute any alcohol or drug abuse patient.[facility] [place] [facility]In the event this information is protected by the Federal Confidentiality of Alcohol and Drug Abuse Patient Records regulations: The Federal rules restrict any use of the information to criminally investigate or prosecute any alcohol or drug abuse patient.[facility]In the event this information is protected by the Federal Confidentiality of Alcohol and Drug Abuse Patient Records regulations: The Federal rules restrict any use of the information to criminally investigate or prosecute any alcohol or drug abuse patient.[facility] [place] [facility]In the event this information is protected by the Federal Confidentiality of Alcohol and Drug Abuse Patient Records regulations: The Federal rules restrict any use of the information to criminally investigate or prosecute any alcohol or drug abuse patient.[facility] [place] [facility]In the event this information is protected by the Federal Confidentiality of Alcohol and Drug Abuse Patient Records regulations: The Federal rules restrict any use of the information to criminally investigate or prosecute any alcohol or drug abuse patient.[facility] [place] [facility]In the event this information is protected by the Federal Confidentiality of Alcohol and Drug Abuse Patient Records regulations: The Federal rules restrict any use of the information to criminally investigate or prosecute any alcohol or drug abuse patient.[facility] [place] [facility]In the event this information is protected by the Federal Confidentiality of Alcohol and Drug Abuse Patient Records regulations: The Federal rules restrict any use of the information to criminally investigate or prosecute any alcohol or drug abuse patient.[facility] the event this information is protected by the Federal Confidentiality of Alcohol and Drug Abuse Patient Records regulations: The Federal rules restrict any use of the information to criminally investigate or prosecute any alcohol or drug abuse patient.[facility] [place] [facility]In the event this information is protected by the Federal Confidentiality of Alcohol and Drug Abuse Patient Records regulations: The Federal rules restrict any use of the information to criminally investigate or prosecute any alcohol or drug abuse patient.[facility] [place] [facility]In the event this information is protected by the Federal Confidentiality of Alcohol and Drug Abuse Patient Records regulations: The Federal rules restrict any use of the information to criminally investigate or prosecute any alcohol or drug abuse patient.[facility] [place] [facility]In the event this information is protected by the Federal Confidentiality of Alcohol and Drug Abuse Patient Records regulations: The Federal rules restrict any use of the information to criminally investigate or prosecute any alcohol or drug abuse patient.[facility] [place] [facility]In the event this information is protected by the Federal Confidentiality of Alcohol and Drug Abuse Patient Records regulations: The Federal rules restrict any use of the information to criminally investigate or prosecute any alcohol or drug abuse patient.[facility]In the event this information is protected by the Federal Confidentiality of Alcohol and Drug Abuse Patient Records regulations: The Federal rules restrict any use of the information to criminally investigate or prosecute any alcohol or drug abuse patient.[facility] [place] [facility]In the event this information is protected by the Federal Confidentiality of Alcohol and Drug Abuse Patient Records regulations: The Federal rules restrict any use of the information to criminally investigate or prosecute any alcohol or drug abuse patient.[facility] [place] [facility]In the event this information is protected by the Federal Confidentiality of Alcohol and Drug Abuse Patient Records regulations: The Federal rules restrict any use of the information to criminally investigate or prosecute any alcohol or drug abuse patient.[facility] [place] [facility]In the event this information is protected by the Federal Confidentiality of Alcohol and Drug Abuse Patient Records regulations: The Federal rules restrict any use of the information to criminally investigate or prosecute any alcohol or drug abuse patient.[facility] [place] [facility]In the event this information is protected by the Federal Confidentiality of Alcohol and Drug Abuse Patient Records regulations: The Federal rules restrict any use of the information to criminally investigate or prosecute any alcohol or drug abuse patient.[facility] [place] [facility]In the event this information is protected by the Federal Confidentiality of Alcohol and Drug Abuse Patient Records regulations: The Federal rules restrict any use of the information to criminally investigate or prosecute any alcohol or drug abuse patient.[facility] [place] [facility]In the event this information is protected by the Federal Confidentiality of Alcohol and Drug Abuse Patient Records regulations: The Federal rules restrict any use of the information to criminally investigate or prosecute any alcohol or drug abuse patient.[facility]In the event this information is protected by the Federal Confidentiality of Alcohol and Drug Abuse Patient Records regulations: The Federal rules restrict any use of the information to criminally investigate or prosecute any alcohol or drug abuse patient.[facility]In the event this information is protected by the Federal Confidentiality of Alcohol and Drug Abuse Patient Records regulations: The Federal rules restrict any use of the information to criminally investigate or prosecute any alcohol or drug abuse patient.[facility] [place] [facility]In the event this information is protected by the Federal Confidentiality of Alcohol and Drug Abuse Patient Records regulations: The Federal rules restrict any use of the information to criminally investigate or prosecute any alcohol or drug abuse patient.[facility]In the event this information is protected by the Federal Confidentiality of Alcohol and Drug Abuse Patient Records regulations: The Federal rules restrict any use of the information to criminally investigate or prosecute any alcohol or drug abuse patient.[facility]In the event this information is protected by the Federal Confidentiality of Alcohol and Drug Abuse Patient Records regulations: The Federal rules restrict any use of the information to criminally investigate or prosecute any alcohol or drug abuse patient.[facility] [place] [facility]In the event this information is protected by the Federal Confidentiality of Alcohol and Drug Abuse Patient Records regulations: The Federal rules restrict any use of the information to criminally investigate or prosecute any alcohol or drug abuse patient.[facility] [place] [facility]In the event this information is protected by the Federal Confidentiality of Alcohol and Drug Abuse Patient Records regulations: The Federal rules restrict any use of the information to criminally investigate or prosecute any alcohol or drug abuse patient.[facility] [place] [facility]In the event this information is protected by the Federal Confidentiality of Alcohol and Drug Abuse Patient Records regulations: The Federal rules restrict any use of the information to criminally investigate or prosecute any alcohol or drug abuse patient.[facility] [place] [facility]In the event this information is protected by the Federal Confidentiality of Alcohol and Drug Abuse Patient Records regulations: The Federal rules restrict any use of the information to criminally investigate or prosecute any alcohol or drug abuse patient.[facility] [place] [facility]In the event this information is protected by the Federal Confidentiality of Alcohol and Drug Abuse Patient Records regulations: The Federal rules restrict any use of the information to criminally investigate or prosecute any alcohol or drug abuse patient.[facility] [place] [facility]In the event this information is protected by the Federal Confidentiality of Alcohol and Drug Abuse Patient Records regulations: The Federal rules restrict any use of the information to criminally investigate or prosecute any alcohol or drug abuse patient.[facility] [place] [facility]In the event this information is protected by the Federal Confidentiality of Alcohol and Drug Abuse Patient Records regulations: The Federal rules restrict any use of the information to criminally investigate or prosecute any alcohol or drug abuse patient.[facility] [place] [facility]In the event this information is protected by the Federal Confidentiality of Alcohol and Drug Abuse Patient Records regulations: The Federal rules restrict any use of the information to criminally investigate or prosecute any alcohol or drug abuse patient.[facility]In the event this information is protected by the Federal Confidentiality of Alcohol and Drug Abuse Patient Records regulations: The Federal rules restrict any use of the information to criminally investigate or prosecute any alcohol or drug abuse patient.[facility] [place] [facility]In the event this information is protected by the Federal Confidentiality of Alcohol and Drug Abuse Patient Records regulations: The Federal rules restrict any use of the information to criminally investigate or prosecute any alcohol or drug abuse patient.[facility]In the event this information is protected by the Federal Confidentiality of Alcohol and Drug Abuse Patient Records regulations: The Federal rules restrict any use of the information to criminally investigate or prosecute any alcohol or drug abuse patient.[facility]In the event this information is protected by the Federal Confidentiality of Alcohol and Drug Abuse Patient Records regulations: The Federal rules restrict any use of the information to criminally investigate or prosecute any alcohol or drug abuse patient.[facility] SouthIn the event this information is protected by the Federal Confidentiality of Alcohol and Drug Abuse Patient Records regulations: The Federal rules restrict any use of the information to criminally investigate or prosecute any alcohol or drug abuse patient.[facility] SouthIn the event this information is protected by the Federal Confidentiality of Alcohol and Drug Abuse Patient Records regulations: The Federal rules restrict any use of the information to criminally investigate or prosecute any alcohol or drug abuse patient.[facility] SouthIn the event this information is protected by the Federal Confidentiality of Alcohol and Drug Abuse Patient Records regulations: The Federal rules restrict any use of the information to criminally investigate or prosecute any alcohol or drug abuse patient.[facility] SouthIn the event this information is protected by the Federal Confidentiality of Alcohol and Drug Abuse Patient Records regulations: The Federal rules restrict any use of the information to criminally investigate or prosecute any alcohol or drug abuse patient.[facility] SouthIn the event this information is protected by the Federal Confidentiality of Alcohol and Drug Abuse Patient Records regulations: The Federal rules restrict any use of the information to criminally investigate or prosecute any alcohol or drug abuse patient.[facility] SouthIn the event this information is protected by the Federal Confidentiality of Alcohol and Drug Abuse Patient Records regulations: The Federal rules restrict any use of the information to criminally investigate or prosecute any alcohol or drug abuse patient.[facility] SouthIn the event this information is protected by the Federal Confidentiality of Alcohol and Drug Abuse Patient Records regulations: The Federal rules restrict any use of the information to criminally investigate or prosecute any alcohol or drug abuse patient.[facility] SouthIn the event this information is protected by the Federal Confidentiality of Alcohol and Drug Abuse Patient Records regulations: The Federal rules restrict any use of the information to criminally investigate or prosecute any alcohol or drug abuse patient.[facility] SouthIn the event this information is protected by the Federal Confidentiality of Alcohol and Drug Abuse Patient Records regulations: The Federal rules restrict any use of the information to criminally investigate or prosecute any alcohol or drug abuse patient.[facility] SouthIn the event this information is protected by the Federal Confidentiality of Alcohol and Drug Abuse Patient Records regulations: The Federal rules restrict any use of the information to criminally investigate or prosecute any alcohol or drug abuse patient.[facility] SouthIn the event this information is protected by the Federal Confidentiality of Alcohol and Drug Abuse Patient Records regulations: The Federal rules restrict any use of the information to criminally investigate or prosecute any alcohol or drug abuse patient.[facility] SouthIn the event this information is protected by the Federal Confidentiality of Alcohol and Drug Abuse Patient Records regulations: The Federal rules restrict any use of the information to criminally investigate or prosecute any alcohol or drug abuse patient.[facility] SouthIn the event this information is protected by the Federal Confidentiality of Alcohol and Drug Abuse Patient Records regulations: The Federal rules restrict any use of the information to criminally investigate or prosecute any alcohol or drug abuse patient.[facility] SouthIn the event this information is protected by the Federal Confidentiality of Alcohol and Drug Abuse Patient Records regulations: The Federal rules restrict any use of the information to criminally investigate or prosecute any alcohol or drug abuse patient.[facility] SouthIn the event this information is protected by the Federal Confidentiality of Alcohol and Drug Abuse Patient Records regulations: The Federal rules restrict any use of the information to criminally investigate or prosecute any alcohol or drug abuse patient.[facility] SouthIn the event this information is protected by the Federal Confidentiality of Alcohol and Drug Abuse Patient Records regulations: The Federal rules restrict any use of the information to criminally investigate or prosecute any alcohol or drug abuse patient.[facility] SouthIn the event this information is protected by the Federal Confidentiality of Alcohol and Drug Abuse Patient Records regulations: The Federal rules restrict any use of the information to criminally investigate or prosecute any alcohol or drug abuse patient.[facility] SouthIn the event this information is protected by the Federal Confidentiality of Alcohol and Drug Abuse Patient Records regulations: The Federal rules restrict any use of the information to criminally investigate or prosecute any alcohol or drug abuse patient.[facility] SouthIn the event this information is protected by the Federal Confidentiality of Alcohol and Drug Abuse Patient Records regulations: The Federal rules restrict any use of the information to criminally investigate or prosecute any alcohol or drug abuse patient.[facility] SouthIn the event this information is protected by the Federal Confidentiality of Alcohol and Drug Abuse Patient Records regulations: The Federal rules restrict any use of the information to criminally investigate or prosecute any alcohol or drug abuse patient.[facility] SouthIn the event this information is protected by the Federal Confidentiality of Alcohol and Drug Abuse Patient Records regulations: The Federal rules restrict any use of the information to criminally investigate or prosecute any alcohol or drug abuse patient.[facility] the event this information is protected by the Federal Confidentiality of Alcohol and Drug Abuse Patient Records regulations: The Federal rules restrict any use of the information to criminally investigate or prosecute any alcohol or drug abuse patient.[facility] SouthIn the event this information is protected by the Federal Confidentiality of Alcohol and Drug Abuse Patient Records regulations: The Federal rules restrict any use of the information to criminally investigate or prosecute any alcohol or drug abuse patient.[facility] SouthIn the event this information is protected by the Federal Confidentiality of Alcohol and Drug Abuse Patient Records regulations: The Federal rules restrict any use of the information to criminally investigate or prosecute any alcohol or drug abuse patient.[facility] SouthIn the event this information is protected by the Federal Confidentiality of Alcohol and Drug Abuse Patient Records regulations: The Federal rules restrict any use of the information to criminally investigate or prosecute any alcohol or drug abuse patient.[facility] SouthIn the event this information is protected by the Federal Confidentiality of Alcohol and Drug Abuse Patient Records regulations: The Federal rules restrict any use of the information to criminally investigate or prosecute any alcohol or drug abuse patient.[facility] SouthIn the event this information is protected by the Federal Confidentiality of Alcohol and Drug Abuse Patient Records regulations: The Federal rules restrict any use of the information to criminally investigate or prosecute any alcohol or drug abuse patient.[facility] SouthIn the event this information is protected by the Federal Confidentiality of Alcohol and Drug Abuse Patient Records regulations: The Federal rules restrict any use of the information to criminally investigate or prosecute any alcohol or drug abuse patient.[facility] SouthIn the event this information is protected by the Federal Confidentiality of Alcohol and Drug Abuse Patient Records regulations: The Federal rules restrict any use of the information to criminally investigate or prosecute any alcohol or drug abuse patient.[facility] SouthIn the event this information is protected by the Federal Confidentiality of Alcohol and Drug Abuse Patient Records regulations: The Federal rules restrict any use of the information to criminally investigate or prosecute any alcohol or drug abuse patient.[facility] SouthIn the event this information is protected by the Federal Confidentiality of Alcohol and Drug Abuse Patient Records regulations: The Federal rules restrict any use of the information to criminally investigate or prosecute any alcohol or drug abuse patient.[facility] SouthIn the event this information is protected by the Federal Confidentiality of Alcohol and Drug Abuse Patient Records regulations: The Federal rules restrict any use of the information to criminally investigate or prosecute any alcohol or drug abuse patient.[facility] SouthIn the event this information is protected by the Federal Confidentiality of Alcohol and Drug Abuse Patient Records regulations: The Federal rules restrict any use of the information to criminally investigate or prosecute any alcohol or drug abuse patient.[facility] SouthIn the event this information is protected by the Federal Confidentiality of Alcohol and Drug Abuse Patient Records regulations: The Federal rules restrict any use of the information to criminally investigate or prosecute any alcohol or drug abuse patient.[facility] SouthIn the event this information is protected by the Federal Confidentiality of Alcohol and Drug Abuse Patient Records regulations: The Federal rules restrict any use of the information to criminally investigate or prosecute any alcohol or drug abuse patient.[facility] SouthIn the event this information is protected by the Federal Confidentiality of Alcohol and Drug Abuse Patient Records regulations: The Federal rules restrict any use of the information to criminally investigate or prosecute any alcohol or drug abuse patient.[facility] Care Teams (unrecognized sec tion and content) Brokerage Clerk Relationship Specialty Start Date End Date Florina Gonzalez MD [address] [place] [address] PCP - General Internal Medicine 05/05/21 Preethi Portillo [place] [address] [facility] 02/13/19 Brokerage Clerk Relationship Specialty Start Date End Date Florian Gonzalez MD [address] [place] [address] PCP - General Internal Medicine 05/05/21 Preethi Portillo MD [address] [place] [address] [facility] 02/13/19 Brokerage Clerk Relationship Specialty Start Date End Date Florian Gonzalez MD [address] [place] [address] PCP - General Internal Medicine 05/05/21 Preethi Portlilo [place] [facility] [address] [facility] 02/13/19 Brokerage Clerk Relationship Specialty Start Date End Date Florian Gonzalez MD [facility] [place] [address] PCP - General Internal Medicine 05/05/21 Preethi Portillo MD [facility] [place] [address] [facility] 02/13/19 Brokerage Clerk Relationship Specialty Start Date End Date Florian Gonzalez MD [address] [place] [address] PCP - General Internal Medicine 05/05/21 Preethi Portillo MD [address] [place] [address] Family Practice 02/13/19 Brokerage Clerk Relationship Specialty Start Date End Date Florian Gonzalez MD [address] [facility] [address] PCP - General Internal Medicine 05/05/21 Preethi Portillo MD [address] [place] [address] [facility] 02/13/19 Brokerage Clerk Relationship Specialty Start Date End Date Florian Gonzalez MD [address] [place] [address] PCP - General Internal Medicine 05/05/21 Preethi Portillo MD [address] [place] [address] [facility] Practice 02/13/19 Brokerage Clerk Relationship Specialty Start Date End Date Florian Gonzalez MD [address] [place] [address] PCP - General Internal Medicine 05/05/21 Preethi Portillo MD [address] [place] [address] [facility] 02/13/19 Brokerage Clerk Relationship Specialty Start Date End Date Florian Gonzalez MD [address] [place] [address] PCP - General Internal Medicine 05/05/21 Preethi Portillo MD [address] [place] [address] Family Practice 02/13/19 Brokerage Clerk Relationship Specialty Start Date End Date Florian Gonzalez MD [address] [place] [address] PCP - General Internal Medicine 05/05/21 Preethi Portillo MD [address] [place] [address] Family Medicine 02/13/19 Brokerage Clerk Relationship Specialty Start Date End Date Florian Gonzalez MD [address] [place] [address] PCP - General Internal Medicine 05/05/21 Preethi Portillo MD [facility] [place] [address] Family Medicine 02/13/19 Brokerage Clerk Relationship Specialty Start Date End Date Florian Gonzalez MD [address] [place] [address] PCP - General Internal Medicine 05/05/21 Preethi Portillo MD [facility] [place] [address] Family Medicine 02/13/19 Brokerage Clerk Relationship Specialty Start Date End Date Florian Gonzalez MD [address] [place] [address] PCP - General Internal Medicine 05/05/21 Preethi Portillo MD [facility] [place] [address] Family Medicine 02/13/19 Brokerage Clerk Relationship Specialty Start Date End Date Florian Gonzalez MD [address] [place] [address] PCP - General Internal Medicine 05/05/21 Preethi Portillo MD [address] [place] [address] Family Medicine 02/13/19 Brokerage Clerk Relationship Specialty Start Date End Date Florian Gonzalez MD [address] [place] [address] PCP - General Internal Medicine 05/05/21 Preethi Portillo MD [facility] [place] [address] Family Medicine 02/13/19 Brokerage Clerk Relationship Specialty Start Date End Date Florian Gonzalez MD [facility] [address] PCP - General Internal Medicine 05/05/21 Preethi Portillo MD [place] [address] Family Medicine 02/13/19 Brokerage Clerk Relationship Specialty Start Date End Date Florian Gonzalez MD [address] [place] [address] PCP - General Internal Medicine 05/05/21 Preethi Portillo MD [place] [address] Family Medicine 02/13/19 Brokerage Clerk Relationship Specialty Start Date End Date Florian Gonzalez MD [address] [place] [address] PCP - General Internal Medicine 05/05/21 Preethi Portillo MD [facility] [place] [address] Family Medicine 02/13/19 Brokerage Clerk Relationship Specialty Start Date End Date Florian Gonzalez MD [facility] [address] PCP - General Internal Medicine 05/05/21 Preethi Portillo MD [address] [place] [address] Family Medicine 02/13/19 Brokerage Clerk Relationship Specialty Start Date End Date Florian Gonzalez MD [address] [place] [address] PCP - General Internal Medicine 05/05/21 Preethi Portillo MD [address] [place] [address] Family Medicine 02/13/19 Brokerage Clerk Relationship Specialty Start Date End Date Florian Gonzalez MD [address] [place] [address] PCP - General Internal Medicine 05/05/21 Preethi Portillo MD [address] [place] [address] Family Medicine 02/13/19 Brokerage Clerk Relationship Specialty Start Date End Date Florian Gonzalez MD [address] [place] [address] PCP - General Internal Medicine 05/05/21 Preethi Portillo MD [address] [place] [address] Family Medicine 02/13/19 Brokerage Clerk Relationship Specialty Start Date End Date Florian Gonzalez [address] [place] [address] PCP - General Internal Medicine 04/28/22 Brokerage Clerk Relationship Specialty Start Date End Date Florian Gonzalez [address] [place] [address] PCP - General Internal Medicine 04/28/22 Brokerage Clerk Relationship Specialty Start Date End Date Florian Gonzalez [address] [place] [address] PCP - General Internal Medicine 04/28/22 Brokerage Clerk Relationship Specialty Start Date End Date Florian Gonzalez [address] [place] [address] PCP - General Internal Medicine 04/28/22 Brokerage Clerk Relationship Specialty Start Date End Date Florian Gonzalez [address] [place] [address] PCP - General Internal Medicine 04/28/22 Brokerage Clerk Relationship Specialty Start Date End Date Florian Gonzalez [address] [place] [address] PCP - General Internal Medicine 04/28/22 Brokerage Clerk Relationship Specialty Start Date End Date Florian Gonzalez [address] [place] [address] PCP - General Internal Medicine 04/28/22 Brokerage Clerk Relationship Specialty Start Date End Date Florian Gonzalez MD [address] [place] [address] PCP - General Internal Medicine 05/05/21 Preethi Portillo MD [address] [place] [address] Family Medicine 02/13/19 Brokerage Clerk Relationship Specialty Start Date End Date Florian Gonzalez [address] [place] [address] PCP - General Internal Medicine 04/28/22 Brokerage Clerk Relationship Specialty Start Date End Date Florian Gonzalez [address] [place] [address] PCP - General Internal Medicine 04/28/22 Brokerage Clerk Relationship Specialty Start Date End Date Florian Gonzalez [address] [place] [address] PCP - General Internal Medicine 04/28/22 Brokerage Clerk Relationship Specialty Start Date End Date Florian Gonzalez [address] [place] [address] PCP - General Internal Medicine 04/28/22 Brokerage Clerk Relationship Specialty Start Date End Date Florian Gonzalez [address] [place] [address] PCP - General Internal Medicine 04/28/22 Brokerage Clerk Relationship Specialty Start Date End Date Florian Gonzalez MD [address] [place] [address] PCP - General Internal Medicine 05/05/21 Preethi Portillo MD [address] [place] [address] Family Medicine 02/13/19 Brokerage Clerk Relationship Specialty Start Date End Date Florian Gonzalez MD [address] [place] [address] PCP - General Internal Medicine 05/05/21 Preethi Portillo MD [address] [place] [address] Family Medicine 02/13/19 Brokerage Clerk Relationship Specialty Start Date End Date Florian Gonzalez MD [address] [place] [address] PCP - General Internal Medicine 05/05/21 Preethi Portillo MD [address] [place] [address] Family Medicine 02/13/19 Brokerage Clerk Relationship Specialty Start Date End Date Florian Gonzalez MD [address] [place] [address] PCP - General Internal Medicine 05/05/21 Preethi Portillo MD [address] [place] [address] Family Medicine 02/13/19 Brokerage Clerk Relationship Specialty Start Date End Date Florian Gonzalez MD [address] [place] [address] PCP - General Internal Medicine 05/05/21 Preethi Portillo MD [address] [place] [address] Family Medicine 02/13/19 Brokerage Clerk Relationship Specialty Start Date End Date Floiran Gonzalez MD [address] [place] [address] PCP - General Internal Medicine 05/05/21 Preethi Portillo MD [address] [place] [address] Family Medicine 02/13/19 Brokerage Clerk Relationship Specialty Start Date End Date Florian Gonzalez MD [address] [place] [address] PCP - General Internal Medicine 05/05/21 Preethi Portillo MD [address] [place] [address] Family Medicine 02/13/19 Brokerage Clerk Relationship Specialty Start Date End Date Florian Gonzalez MD [address] [place] [address] PCP - General Internal Medicine 05/05/21 Preethi Portillo MD [address] [place] [address] Family Medicine 02/13/19 Brokerage Clerk Relationship Specialty Start Date End Date Florian Gonzalez [address] [place] [address] PCP - General Internal Medicine 04/28/22 Brokerage Clerk Relationship Specialty Start Date End Date Florian Gonzalez MD [address] [place] [address] PCP - General Internal Medicine 05/05/21 Preethi Portillo MD [address] [place] [address] Family Medicine 02/13/19 Brokerage Clerk Relationship Specialty Start Date End Date Florian Gonzalez MD [address] [place] [address] PCP - General Internal Medicine 05/05/21 Preethi Portillo MD [address] [place] [address] Family Medicine 02/13/19 Brokerage Clerk Relationship Specialty Start Date End Date Florian Gonzalez MD [address] [place] [address] PCP - General Internal Medicine 05/05/21 Preethi Portillo MD [address] [place] [address] Family Medicine 02/13/19 Brokerage Clerk Relationship Specialty Start Date End Date Florian Gonzalez MD [address] [place] [address] PCP - General Internal Medicine 05/05/21 Preethi Portillo MD [facility] [place] [address] Family Medicine 02/13/19 Brokerage Clerk Relationship Specialty Start Date End Date Florian Gonzalez MD [address] [place] [address] PCP - General Internal Medicine 05/05/21 Preethi Portillo MD [facility] [place] [address] Family Medicine 02/13/19 Brokerage Clerk Relationship Specialty Start Date End Date Florian Gonzalez MD [facility] [place] [address] PCP - General Internal Medicine 05/05/21 Preethi Portillo MD [address] [place] [address] Family Medicine 02/13/19 Brokerage Clerk Relationship Specialty [place] [address] [facility] [address] [place], [place] [id number] PCP - General Internal Medicine 09/14/22 Brokerage Clerk Relationship Specialty Start Date End Date Florian Gonzalez MD [address] [place] [address] PCP - General Internal Medicine 05/05/21 Preethi Portillo MD [address] [place] [address] Family Medicine 02/13/19 Brokerage Clerk Relationship Specialty Start Date End Date Florian Gonzalez MD [address] [place] [address] PCP - General Internal Medicine 05/05/21 Preethi Portillo MD [address] [place] [address] Family Medicine 02/13/19 Brokerage Clerk Relationship Specialty Start Date End Date Florian Goznalez MD [address] [place] [address] PCP - General Internal Medicine 05/05/21 Preethi Portillo MD [address] [place] [address] Family Medicine 02/13/19 Brokerage Clerk Relationship Specialty Start Date End Date Florian Gonzalez MD [address] [place] [address] PCP - General Internal Medicine 05/05/21 Preethi Portillo MD [address] [place] [address] Family Medicine 02/13/19 Brokerage Clerk Relationship Specialty Start Date End Date Florian Gonzalez MD [address] [facility] [address] PCP - General Internal Medicine 05/05/21 Preethi Portillo MD [address] [place] [address] Family Medicine 02/13/19 Brokerage Clerk Relationship Specialty Start Date End Date Florian Gonzalez MD [address] [place] [address] PCP - General Internal Medicine 05/05/21 Preethi Portillo MD [address] [place] [address] Family Medicine 02/13/19 Brokerage Clerk Relationship Specialty Start Date End Date Florian Gonzalez MD [address] [place] [address] PCP - General Internal Medicine 05/05/21 Preethi Portillo MD [address] [place] [address] Family Medicine 02/13/19 Brokerage Clerk Relationship Specialty Start Date End Date Florian Gonzalez MD [address] [place] [address] PCP - General Internal Medicine 05/05/21 Preethi Portillo MD [address] [place] [address] Family Medicine 02/13/19 Brokerage Clerk Relationship Specialty Start Date End Date Florian Gonzalez MD [address] [facility] [address] PCP - General Internal Medicine 05/05/21 Preethi Portillo MD [address] [place] [address] Family Medicine 02/13/19 Brokerage Clerk Relationship Specialty Start Date End Date Florian Gonzalez [address] [facility] [address] PCP - General Internal Medicine 04/28/22 Brokerage Clerk Relationship Specialty Start Date End Date Florian Gonzalez [address] [place] [address] PCP - General Internal Medicine 04/28/22 Brokerage Clerk Relationship Specialty Start Date End Date Florian Gonzalez [address] [place] [address] PCP - General Internal Medicine 04/28/22 Brokerage Clerk Relationship Specialty Start Date End Date Florian Gonzalez [address] [place] [address] PCP - General Internal Medicine 04/28/22 Brokerage Clerk Relationship Specialty Start Date End Date Florian Gonzalez [address] [place] [address] PCP - General Internal Medicine 04/28/22 Brokerage Clerk Relationship Specialty Start Date End Date Florian Gonzalez MD [address] [place] [address] PCP - General Internal Medicine 05/05/21 Preethi Portillo MD [address] [place] [address] Family Medicine 02/13/19 Shea Etienne, PRE OWNED SALES MANAGER.INSIDE FINISHER [address] [place] [address] Poll Clerk Internal Medicine 03/18/24 Brokerage Clerk Relationship Specialty Start Date End Date Florian Gonzalez MD [address] [place] [address] PCP - General Internal Medicine 05/05/21 Preethi Portillo MD [address] [place] [address] Family Medicine 02/13/19 Shea Etienne, PRE OWNED SALES MANAGER.INSIDE FINISHER [address] [place] [address] [facility] Internal Medicine 03/18/24 Brokerage Clerk Relationship Specialty Start Date End Date Florian Gonzalez MD [address] [place] [address] PCP - General Internal Medicine 05/05/21 Preethi Portillo MD [address] [place] [address] Family Medicine 02/13/19 Shea Etienne, PRE OWNED SALES MANAGER.INSIDE FINISHER [address] [place] [address] [facility] Internal Medicine 03/18/24 Brokerage Clerk Relationship Specialty Start Date End Date Florian Gonzalez MD [address] [place] [address] PCP - General Internal Medicine 05/05/21 Preethi Portillo MD [address] [place] [address] Family Medicine 02/13/19 Shea Etienne, PRE OWNED SALES MANAGER.INSIDE FINISHER [address] [place] [address] Poll Clerk Internal Medicine 03/18/24 Brokerage Clerk Relationship Specialty [place] [address] [facility] [address] [place] [address] PCP - General Internal Medicine 09/14/22 Brokerage Clerk Relationship Specialty Start Date End Date Florian Gonzalez MD [address] [place] [address] PCP - General Internal Medicine 05/05/21 Preethi Portillo MD [address] [place] [address] Family Medicine 02/13/19 Shea Etienne, PRE OWNED SALES MANAGER.INSIDE FINISHER [address] [place] [address] Poll Clerk Internal Medicine 03/18/24 Brokerage Clerk Relationship Specialty Start Date End Date Florian Gonzalez MD [address] [place] [address] PCP - General Internal Medicine 05/05/21 Preethi Portillo MD [address] [place] [address] Family Medicine 02/13/19 Shea Etienne, PRE OWNED SALES MANAGER.INSIDE FINISHER [address] [place] [address] Poll Clerk Internal Medicine 03/18/24 Brokerage Clerk Relationship Specialty Start Date End Date Florian Gonzalez MD [address] [place] [address] PCP - General Internal Medicine 05/05/21 Preethi Portillo MD [address] [place] [address] Family Medicine 02/13/19 Shea Etienne, PRE OWNED SALES MANAGER.INSIDE FINISHER [address] [place] [address] Poll Clerk Internal Medicine 03/18/24 Brokerage Clerk Relationship Specialty Start Date [place] [id number] [place] [address] [place] [address] PCP - General Internal Medicine 09/14/22 Brokerage Clerk Relationship Specialty Start Date End Date Florian Gonzalez MD [address] [place], [place] [address] PCP - General Internal Medicine 05/05/21 Preethi Portillo MD [address] [place] [address] Family Medicine 02/13/19 Shea Etienne, PRE OWNED SALES MANAGER.INSIDE FINISHER [address] [place] [address] Poll Clerk Internal Medicine 03/18/24 Brokerage Clerk Relationship Specialty Start Date End Date Florian Gonzalez MD [address] [place], [place] [address]201 PCP - General Internal Medicine 05/05/21 Preethi Portillo MD [address] [place] [address] Family Medicine 02/13/19 Shea Etienne, PRE OWNED SALES MANAGER.INSIDE FINISHER [address] [place] [address] Poll Clerk Internal Medicine 03/18/24 Brokerage Clerk Relationship Specialty Start Date End Date Florian Gonzalez MD [address] [place] [address] PCP - General Internal Medicine 05/05/21 Preethi Portillo MD [address] [place] [address] Family Medicine 02/13/19 Shea Etienne, PRE OWNED SALES MANAGER.INSIDE FINISHER [address] [place] [address] Poll Clerk Internal Medicine 03/18/24 Jenn Vidales, BARRY [address] [place] [id number] Hydraulics Engineer 07/15/24 Brokerage Clerk Relationship Specialty Start Date End Date Florian Gonzalez MD [address] [place] [address] PCP - General Internal Medicine 05/05/21 Preethi Portillo MD [address] [place] [address] Family Medicine 02/13/19 Shea Etienne, PRE OWNED SALES MANAGER.INSIDE FINISHER [address] [place] [address] Poll Clerk Internal Medicine 03/18/24 Jenn Vidales RN [address] [place] [address] Hydraulics Engineer 07/15/24 Team Status: Active Member Role Status Dates Dr. Florian Gonzalez MD Primary Care Provider Active Team Status: Inactive Member Role Status Dates Dr. Florian Gonzalez MD Primary Care Provider Active Start: July 22, 2024 End: July 22, 2024 Dr. Cortez Maldonado MD Emergency Provider Active S tart: July 22, 2024 End: July 22, 2024 Brokerage Clerk Relationship Specialty Start Date End Date Florian Gonzalez MD [address] [place] [address] PCP - General Internal Medicine 05/05/21 Preethi Portillo MD [address] [place] [address] Family Medicine 02/13/19 Shea Etienne, PRE OWNED SALES MANAGER.INSIDE FINISHER [address] [place] [address] Poll Clerk Internal Medicine 03/18/24 Jenn Vidales RN [address] [place] [address] Hydraulics Engineer 07/15/24 Brokerage Clerk Relationship Specialty Start Date End Date Florian Gonzalez MD [address] [place], [place] [address]84451 PCP - General Internal Medicine 05/05/21 Preethi Portillo MD [address] [place] [address] Family Medicine 02/13/19 Shea Etienne, PRE OWNED SALES MANAGER.INSIDE FINISHER [address] [place] [address] Poll Clerk Internal Medicine 03/18/24 Jenn Vidales RN [address] [place] [address] Hydraulics Engineer 07/15/24 Brokerage Clerk Relationship Specialty Start Date End Date Florian Gonzalez MD [address] [facility] [address] PCP - General Internal Medicine 05/05/21 Preethi Portillo MD [address] [place] [address] Family Medicine 02/13/19 Shea Etienne, PRE OWNED SALES MANAGER.INSIDE FINISHER [address] [place] [address] Poll Clerk Internal Medicine 03/18/24 Jenn Vidales RN [address] [place] [address] Hydraulics Engineer 07/15/24 Brokerage Clerk Relationship Specialty Start Date End Date Florian Gonzalez MD [address] [place] [address] PCP - General Internal Medicine 05/05/21 Preethi Portillo MD [address] [place] [address] Family Medicine 02/13/19 Shea Etienne, PRE OWNED SALES MANAGER.INSIDE FINISHER [address] [place] [address] Poll Clerk Internal Medicine 03/18/24 Jenn Vidales, BARRY [address] [place] [address] Hydraulics Engineer 07/15/24 Brokerage Clerk Relationship Specialty Start Date End Date Florian Gonzalez MD [address] [place] [address] PCP - General Internal Medicine 05/05/21 Preethi Portillo MD [address] [place] [address] Family Medicine 02/13/19 Shea Etienne, PRE OWNED SALES MANAGER.INSIDE FINISHER [address] [place] [address] Poll Clerk Internal Medicine 03/18/24 Jenn Vidales, BARRY [address] [place] [address] Hydraulics Engineer 07/15/24 Brokerage Clerk Relationship Specialty Start Date End Date Florian Gonzalez MD [address] [place] [address] PCP - General Internal Medicine 05/05/21 Preethi Portillo MD [address] [place] [address] Family Medicine 02/13/19 Shea Etienne, PRE OWNED SALES MANAGER.INSIDE FINISHER [address] [place] [address] Poll Clerk Internal Medicine 03/18/24 Jenn Vidales, BARRY [address] [place] [address] Hydraulics Engineer 07/15/24 Brokerage Clerk Relationship Specialty Start Date End Date Florian Gonzalez MD [address] [place] [address] PCP - General Internal Medicine 05/05/21 Preethi Portillo MD [address] [place] [address] [facility] 02/13/19 Shea Etienne, PRE OWNED SALES MANAGER.INSIDE FINISHER [address] [place] [address] Poll Clerk Internal Medicine 03/18/24 Jenn Vidales, BARRY [address] [place], [place] [id number] Hydraulics Engineer 07/15/24 Brokerage Clerk Relationship Specialty Start Date End Date Florian Gonzalez MD [address] [place] [address] PCP - General Internal Medicine 05/05/21 Preethi Portillo MD [address] [place] [address] [facility] 02/13/19 Shea Etienne, PRE OWNED SALES MANAGER.INSIDE FINISHER [address] [place] [address] Poll Clerk Internal Medicine 03/18/24 Jenn Vidales, BARRY [address] [place], [place] [address] Hydraulics Engineer 07/15/24 Team Status: Inactive Member Role Status [...] September 18, 2024 End: September 18, 2024 Brokerage Clerk Relationship Specialty Start Date End Date Florian Gonzalez MD [address] [place] [address] PCP - General Internal Medicine 05/05/21 Preethi Portillo MD [address] [place] [address] Family Medicine 02/13/19 Shea Etienne, PRE OWNED SALES MANAGER.INSIDE FINISHER [address] [place] [address] Poll Clerk Internal Medicine 03/18/24 Jenn Vidales RN [address] [place] [address] Hydraulics Engineer 07/15/24 Brokerage Clerk Relationship Specialty Start Date End Date Florian Gonzalez MD [address] [place] [address] PCP - General Internal Medicine 05/05/21 Preethi Portillo MD [address] [place] [address] Family Medicine 02/13/19 Shea Etienne, PRE OWNED SALES MANAGER.INSIDE FINISHER [address] [place] [address] Poll Clerk Internal Medicine 03/18/24 Jenn Vidales, BARRY [address] [place], [place] [address] Hydraulics Engineer 07/15/24 Brokerage Clerk Relationship Specialty Start Date End Date Florian Gonzalez MD [address] [place] [address] PCP - General Internal Medicine 05/05/21 Preethi Portillo MD [address] [place] [address] Family Medicine 02/13/19 Shea Etienne, PRE OWNED SALES MANAGER.INSIDE FINISHER [address] [facility] [address] Poll Clerk Internal Medicine 03/18/24 Jenn Vidales, BARRY [address] [place] [address] Hydraulics Engineer 07/15/24 Brokerage Clerk Relationship Specialty Start Date End Date Florian Gonzalez MD [address] [place] [address] PCP - General Internal Medicine 05/05/21 Preethi Portillo MD [address] [place] [address] Family Medicine 02/13/19 Shea Etienne, PRE OWNED SALES MANAGER.INSIDE FINISHER [address] [place] [address] Poll Clerk Internal Medicine 03/18/24 Jenn Vidales, BARRY [address] [place] [address] Hydraulics Engineer 07/15/24 Brokerage Clerk Relationship Specialty Start Date End Date Florian Gonzalez MD [address] [place] [address] PCP - General Internal Medicine 05/05/21 Preethi Portillo MD [address] [place] [address] Family Medicine 02/13/19 Shea Etienne, PRE OWNED SALES MANAGER.INSIDE FINISHER [address] [place] [address] Poll Clerk Internal Medicine 03/18/24 Jenn Vidales, BARRY [address] [place] [address] Hydraulics Engineer 07/15/2410/15 Brokerage Clerk Relationship Specialty Start Date End Date Florian Gonzalez MD [address] [place] [address] PCP - General Internal Medicine 05/05/21 Preethi Portillo MD [address] [place] [address] Family Medicine 02/13/19 Shea Etienne, PRE OWNED SALES MANAGER.INSIDE FINISHER [address] [place] [address] Poll Clerk Internal Medicine 03/18/24 Jenn Vidales RN [address] [place] [address] Hydraulics Engineer 07/15/2410/15 Brokerage Clerk Relationship Specialty Start Date End Date Florian Gonzalez MD [address] [place] [address] PCP - General Internal Medicine 05/05/21 Preethi Portillo MD [address] [place] [address] Family Medicine 02/13/19 Shea Etienne, PRE OWNED SALES MANAGER.INSIDE FINISHER [address] [place] [address] Poll Clerk Internal Medicine 03/18/24 Brokerage Clerk Relationship Specialty Start Date End Date Florian Gonzalez MD [address] [place] [address] PCP - General Internal Medicine 05/05/21 Preethi Portillo MD [address] [place] [address] Family Medicine 02/13/19 Shea Etienne, PRE OWNED SALES MANAGER.INSIDE FINISHER [address] [place] [address] Poll Clerk Internal Medicine 03/18/24 Brokerage Clerk Relationship Specialty Start Date End Date Florian Gonzalez MD [address] [place], [place] [address]01 PCP - General Internal Medicine 05/05/21 Preethi Portillo MD [address] [place] [address] Family Medicine 02/13/19 Shea Etienne, PRE OWNED SALES MANAGER.INSIDE FINISHER [address] [place] [address] Poll Clerk Internal Medicine 03/18/24 Reason for Visit (unrecogniz ed section and content) Reason Comments OT Treatment Specialty Diagnoses / Procedures Referred By Sweetie t Referred To Contact Occupational Therapy Diagnoses 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 Referred To Contact Internal Medicine / INTERNAL MEDICINE Diagnoses 3 month follow-up Procedures Florian Can MD [address] [place] [address] Shea Van APRN.INSIDE FINISHER [address] [place] [address] Referral ID Status Reason Start Date Expiration Date Visits Re quested Visits Authorized [id number] Closed 08/13/2021 04/09/2022 1 1 Reason Onset Date Comments Refill Request 09/01/2021 Reason Comments Consult Initial [facility] Pt Outr each Reason Comments Cardiology Follow Up medication review Fall 07/24/21 pt fell. lig htheaded - 08/03/21 fell in bedroom lightheaded. Reason Comments Consult [facility] Returned Pt's V m Reason Comments Consult [facility] Pt Outreach F/U Reason Comments Consult [facility] Assessment Virt ua Specialty Diagnoses / Procedures Referred By Sweetie snowden Referred To Contact Psychiatry / ADULT PSYCHOLOGY Diagnoses First eval Procedures VIDEO PSYC/PSYL Florian Frye MD [address] [place] [address] Jitendra, Reji, SEXER [address] [place] [address] Referral ID Status Reason Start Date Expiration Date V isits Requested Visits Authorized [id number] Authorized 04/10/2021 04/09/2022 99 99 Reason Onset [...] Up Specialty Diagnoses / Procedures Referred By Sweetie t Referred To Contact Psychiatry / ADULT PSYCHIATRY Diagnoses med check Procedures EST PSYC ADULT Self Quincy Alonzo, PRE OWNED SALES MANAGER.INSIDE FINISHER [address] [place] [address] Referral ID Status Reason Start Date Expiration Date V isits Requested Visits Authorized [id number] Pending Review 03/30/2022 06/28/2022 1 1 Reason Comments Ear Problem Penis/Scrotum Problem Reason Onset Date Comments Refill Request 06/22/2022 Specialty Diagnoses / Procedures Referred By Sweetie t Referred To Contact Diagnoses Primary osteoarthritis, left wrist Left jdnhejuj-Npjcwytds-mngaskwtd joint arthritis Procedures [place] ARTHRP INTERPOS INTERCARPAL/METACARPAL JOINTS Left thumb carpometacarpal arthroplasty with partial excision trapezoid Toya Smith MD 1 [facility] [address] [place] [address] [facility] [address] [place] [address] Referral ID Status Reason Start Date Expiration Date Visits Re quested Visits Authorized [id number] 1 1 Reason Comments Post-op DOS 07/01/2022- Left thumb carpometacarpal arthroplasty and intrinsic release, partial excision trapezoid Reason Comments OT Initial Eval custom splinting Reason Onset Date Comments Medication Problem 07/01/2022 Reason Comments F/U 6 months Reason Comments Follow Up Urinary Incontinence Balanitis Specialty Diagnoses / Procedures Referred By Sweetie t Referred To Contact Urology Diagnoses Balanitis Urge incontinence of urine Procedures CONSULT TO UROLOGY OFFICE/OUTPATIENT [facility] 60-74 MINUTES Florian Gonzalez MD [address] [place] [address] Referral ID Status Reason Start Date Expiration Date V isits Requested Visits Authorized [id number] Closed PCP Requested Referral 11/08/2022 11/08/2023 1 [...] Urgency Specialty Diagnoses / Procedures Referred By Famac t Referred To Contact Urology / UROLOGY Diagnoses Balanitis Three month follow up- Ditropan Procedures OFFICE/OUTPATIENT ESTABLISHED HIGH MDM 40-54 MIN EST UROL Florian Gonzalez MD [address] [place] [address] Antonio Stahl PA-C [address] [place] [address] Referral ID Status Reason Start Date Expiration Date V isits Requested Visits Authorized [id number] Authorized 02/07/2023 04/09/2023 99 99 Reason Comments Cardiology Follow Up Medication review. Reason Onset Date Comments Refill Request 02/24/2023 Reason Comments Medicare Wellness Exam Reason Comments PT Eval Patient Education Specialty Diagnoses / Procedures Referred By Sweetie t Referred To Contact [facility] Diagnoses Bursitis of other bursa of right hip Procedures CONSULT TO PHYSICAL THERAPY PHYSICAL THERAPY EVALUATION HIGH COMPLEX 45 MINS Florian Gonzalez MD [address] [place] [address] [facility] [place] [address] [place] [address] Referral ID Status Reason Start Date Expiration Date Visits Requested Visits Authorized [id number] Authorized Auto-Generat ed Referral 04/10/2023 04/09/2024 99 99 Reason Comments Pain Reason Comments Appointment Reason Onset Date Comments Refill Request 11/01/2023 Reason Comments Follow Up Depression/anxiety/p tsd Specialty Diagnoses / Procedures Referred By Famac t Referred To Contact Psychiatry / ADULT PSYCHIATRY Diagnoses 3 Month Follow-Up Procedures EST PSYC ADULT Quincy Alonzo, PRE OWNED SALES MANAGER.INSIDE FINISHER [address] [place] [address] Quincy Alonzo, PRE OWNED SALES MANAGER.INSIDE FINISHER [address] [place] [address] Referral ID Status Reason Start Date Expiration Date V isits Requested Visits Authorized [id number] Pending Review 10/31/2023 01/29/2024 1 1 Reason Comments F/U 6 months Reason Comments Cardiac Clearance 02/22/2023 colon asc open access Reason Comments New Patient Left wrist pain Specialty Diagnoses / Procedures Referred By Contac t Referred To Contact Orthopedic Surgery Diagnoses Other specified sprain of left wrist, initial encounter Procedures [place] OFFICE/OUTPATIENT NEW MODERATE MDM 45-59 MINUTES Eval and treat Matt Marie [address] [facility] [address] [place] [address] Toya Smith MD 1 [facility] [address] [place] [address] Referral ID Status Reason Start Date Expiration Date V isits Requested Visits Authorized [id number] Pending Review 02/09/2022 08/08/2022 1 1 Reason [...] Diagnoses 7 mo follow up Procedures EST PSYC ADULT Quincy Alonzo, PRE OWNED SALES MANAGER.INSIDE FINISHER [address] [place] [address] Phone: tel: fax: Quincy Alonzo, PRE OWNED SALES MANAGER.INSIDE FINISHER [address] [place] [address] Phone: tel: fax: Referral ID Status Reason Start Date Expiration Date V isits Requested Visits Authorized [id number] New Request 05/28/2024 08/26/2024 1 1 Reason Comments Cough Reason Comments Pain Reason Comments Med Change Request Reason Comments bh consult Reason Comments Follow Up PTSD/Anxiety/Depress ion Specialty Diagnoses / Procedures [facility] Referred To Contact Psychiatry / ADULT PSYCHIATRY Diagnoses rescheduled follow up Procedures EST PSYC ADULT Quincy Alonzo, PRE OWNED SALES MANAGER.INSIDE FINISHER [address] [place] [address] Phone: tel: fax: Quincy Alonzo, PRE OWNED SALES MANAGER.INSIDE FINISHER [address] [place] [address] Phone: tel: fax: Referral ID Status Reason Start Date Expiration Date V isits Requested Visits Authorized [id number] New Request 08/06/2024 11/04/2024 1 1 Reason Onset Date Comments Transition Of Care 09/13/2024 Inbound call Reason Onset Date Comments Escalation of Care 09/13/2024 Reason Onset Date Comments Care Coordination 09/13/2024 Chart review a nd outreach for CHF GDMT Care Path Reason Comments Spirometry Specialty Diagnoses / Procedures [facility]erred To Contact [facility] Diagnoses Chronic obstructive pulmonary disease, unspecified COPD type (HCC) Procedures LUNG DIFFUSION CAPACITY (DLCO) DIFFUSING CAPACITY Josselin Maldonado MD [address] [place] [address] Phone: tel: fax: Respiratory [address] [address] Referral ID Status Reason Start Date Expiration Date V isits Requested Visits Authorized [id number] Closed Auto-Generate d Referral 09/13/2024 04/09/2025 1 1 Specialty Diagnoses / Procedures [facility] Referred To Contact [facility] Diagnoses Chronic obstructive pulmonary disease, unspecified COPD type (HCC) Procedures SPIROMETRY WITH DILATOR IF OBSTRUCTED BRNCDILAT RSPSE SPMTRY PRE&POST-BRNCDILAT ADMJosselin Galvin MD [address] [place] [address] Phone: tel: fax: Respiratory [address] [address] Referral ID Status Reason Start Date Expiration Date V isits Requested Visits Authorized [id number] Closed Auto-Generate d Referral 09/13/2024 04/09/2025 1 1 Specialty Diagnoses / Procedures Referred By Contac t Referred To Contact [facility] Diagnoses Cough, unspecified type Procedures NITRIC OXIDE, EXHALED NITRIC OXIDE GAS DETERMINATION Josselin Maldonado MD [address] [place] [address] Phone: tel: fax: [facility] [place] [address] [place] [address] Referral ID Status Reason Start Date Expiration Date V isits Requested Visits Authorized [id number] Closed Auto-Generate d Referral 09/17/2024 04/09/2025 1 1 Reason Comments New Patient COPD Reason Onset Date Comments Results 09/18/2024 Reason Onset Date Comments Refill Request 09/19/2024 Reason Comments Appointment Rescheduled Specialty Diagnoses / Procedures Referred By Contac t Referred To Contact Diagnoses Generalized anxiety disorder Procedures PROVIDER ORDERED FOLLOW UP OFFICE/OUTPATIENT [facility] MDM 60 MINUTES Quincy Alonzo, PRE OWNED SALES MANAGER.INSIDE FINISHER [address] [place] [address] Phone: tel: fax: Referral ID Status Reason Start Date Expiration Date Visits Requested Visits Authorized [id number] Pending Review PCP Requested Referral 08/06/2024 08/06/2025 1 1 Reason Comments Head Injury back injury Reason Comments Fall X 5 days : lower arturo k pain, bilateral shoulders Reason Comments Follow Up Anxiety/PTSD/Depress ion Specialty Diagnoses / Procedures Referred By Contac t Referred To Contact Psychiatry / ADULT PSYCHIATRY Diagnoses Provider ordered sooner follow up Procedures EST PSYC ADULT Quincy Alonzo, PRE OWNED SALES MANAGER.[employer] [address] [place] [address] Phone: tel: fax: Quincy Alonzo, PRE OWNED SALES MANAGER.[employer] [address] [place] [address] Phone: tel: fax: Referral ID Status Reason Start Date Expiration Date V isits Requested Visits Authorized [id number] New Request 10/08/2024 01/06/2025 1 1 Reason Comments Follow Up Urinary Incontinence Specialty Diagnoses / Procedures Referred By Sweetie t Referred To Contact Psychiatry / ADULT PSYCHIATRY Diagnoses R/S from VV issues on 09/23/24. Patient requested in office visit Procedures PROVIDER ORDER FOLLOW PSYC/YL Quincy Alonzo, PRE OWNED SALES MANAGER.[employer] [address] [place] [address] Phone: tel: fax: Quincy Alonzo, PRE OWNED SALES MANAGER.[employer]IDE [employer] [address] [place] [address] Phone: tel: fax: Referral ID Status Reason Start Date Expiration Date V isits Requested Visits Authorized [id number] New Request 11/12/2024 02/10/2025 1 1 Care Team (unrecognized sect ion and content) Care Team Personnel Name: FLORIAN GONZALEZ MD Member Role: Primary Care Physician Address: Address: [address] [place], [place] [id number] Scheduled Active and Recently Administ ered Medications [...] 2,000 mg, IntraVENous, Administer over 30 Minutes, Bioanalyst to O.R., On Mon07/01/22 at 1030, For [...] hydralazine IV order. lidocaine-EPINEPHrine (Xylocaine W/EPI) 1 %-[id number] injection (CANCELED) As needed, Starting on Mon07/01/22 [...] BE BASED ON THE PRIMARY CLINICAL RECORDS. [facility]. provides no warranty or guarantee of the accuracy or completeness of information in this document.
[2024-12-29 23:55] LABS: Magnesium 1.9 mg/dL (1.5-2.2)
[2024-12-30 00:23] VITALS: BP 124/66; PULSE 71; RESP 18; TEMP 36.5; O2SAT 99
[2024-12-30 00:26] VITALS: BMI 31.7
[2024-12-30] MEDS: 0.9% Normal Saline (1000mL) 1,000 ML 100 ML IV (00:40)
[2024-12-30 00:57] VITALS: BP 127/82; BP 135/78; BP 137/75; PULSE 70; PULSE 72; PULSE 74
[2024-12-30 05:50] VITALS: BMI 31.8
[2024-12-30 05:54] VITALS: BP 115/83; PULSE 96; RESP 16; TEMP 36.7; O2SAT 96
[2024-12-30 06:18] LABS: Hematocrit 29.9 % (40-54); Hemoglobin 10.1 g/dL (13.0-16.5); Immature Granulocytes Count 0.020 X10^3/uL (0.0-0.0); Mean Corp Hgb Conc 33.8 g/dL (32-36); Mean Corpuscular Volume 92.9 fL (80-94); Mean Platelet Vol. 11.5 fl (6.2-12.0); NRBC Flagged by Analyzer 0 % (0-5); Platelet Count 170 K/mm3 (150-450); RBC Distribution Width CV 14.1 % (11.6-14.6); RBC Distribution Width SD 47.8 fl (35.1-43.9); Red Blood Count 3.22 M/mm3 (4.6-6.2); White Blood Count 6.3 K/mm3 (4.4-11.0)
[2024-12-30 06:36] LABS: AST(SGOT) 41 U/L (<=37); Alanine Aminotransfer ALT/SGPT 36 U/L (<=46); Albumin, Serum 3.3 g/dL (3.4-4.8); Alkaline Phosphatase 60 U/L (40-129); Anion Gap 9 (5-15); BUN 17 mg/dL (4-19); BUN/Creat Ratio 16.4 RATIO (10-20); Calcium,Total 8.5 mg/dL (7.6-11.0); Carbon Dioxide 23.4 mmol/L (21.0-32.0); Chloride 109 mmol/L (98-108); Estimated Creatinine Clearance 84.38 ml/min (50-250); Globulin 1.8 g/dL (2.2-4.2); Glucose 99 mg/dL (70-99); Potassium 3.8 mmol/L (3.3-5.1)
[2024-12-30 09:49] VITALS: BP 100/59; PULSE 79; RESP 18; TEMP 36.4; O2SAT 95
[2024-12-30] MEDS: APIXABAN 5 MG TABLET PO ×2 (10:23→21:41)
[2024-12-30 14:55] VITALS: BP 104/67; PULSE 70; RESP 18; TEMP 36.7; O2SAT 96
--- NOTE | 2024-12-30 15:57 | CASEMGMT ---
BAZAN Met with patient to complete BAZAN form. BAZAN form and its content were verbally explained and patient's questions were answered to the best of my ability.? Patient voiced understanding and signed BAZAN form.? Patient provided a copy of signed BAZAN form and original placed in patient's chart.? Patient had no further questions. Katie Hicks, Discharge Planning Asst
--- NOTE | 2024-12-30 18:00 | PCM.PN.HOSP ---
Subjective Subjective Still with fairly significant left lower extremity pain up by his hip and thigh no obvious signs of ecchymosis and no fracture on imaging Objective Data Objective Data Vital Signs: Vital Signs Temp Pulse Resp BP Pulse Ox O2 Del Method 98.1 F 70 18 104/67 96 Room Air 12/30/24 14:55 12/30/24 14:55 12/30/24 14:55 12/30/24 14:55 12/30/24 14:55 12/30/24 14:56 Oxygen Delivery Method Room Air Weight: 240 lb 11.916 oz Body Mass Index (BMI) 31.8 Intake & Output: Intake and Output for Last 24 Hours 12/29/24 12/30/24 12/31/24 03:59 03:59 03:59 Intake Total 1000 / 1000 1250 / 1250 Output Total 200 / 200 Balance 1000 / 1000 1050 / 1050 Lab / Micro Data 12/30/24 05:38 12/30/24 05:38 Labs: Laboratory Results - last 24 hr 12/29/24 20:07: WBC 9.6, RBC 3.66 L, Hgb 11.4 L, Hct 33.7 L, MCV 92.1, MCH 31.1, MCHC 33.8, RDW Std Deviation 47.8 H, RDW Coeff of Anmol 14.1, Plt Count 202, MPV 11.5, Immature Gran % (Auto) 0.400, Neut % (Auto) 74.9 H, Lymph % (Auto) 19.1, [place] % (Auto) 3.9, Eos % (Auto) 1.3, Baso % (Auto) 0.4, Absolute Neuts (auto) 7.2, Absolute Lymphs (auto) 1.83, Nucleated RBC % 0, Sodium 138, Potassium 4.0, Chloride 103, Carbon Dioxide 21.6, Anion Gap 13, BUN 20 H, Creatinine 1.13, Estim Creat Clear Calc 76.40, Est GFR (MDRD) Non-Af 69, BUN/Creatinine Ratio 17.5, Glucose 101 H, Calcium 9.1, Magnesium 1.9 12/30/24 05:38: WBC 6.3, RBC 3.22 L, Hgb 10.1 L, Hct 29.9 L, MCV 92.9, MCH 31.4, MCHC 33.8, RDW Std Deviation 47.8 H, RDW Coeff of Anmol 14.1, Plt Count 170, MPV 11.5, Immature Gran % (Auto) 0.300, Neut % (Auto) 60.5, Lymph % (Auto) 31.5, [place] % (Auto) 4.0, Eos % (Auto) 3.2, Baso % (Auto) 0.5, Absolute Neuts (auto) 3.8, Absolute Lymphs (auto) 1.97, Nucleated RBC % 0, Sodium 141, Potassium 3.8, Chloride 109 H, Carbon Dioxide 23.4, Anion Gap 9, BUN 17, Creatinine 1.01, Estim Creat Clear Calc 84.38, Est GFR (MDRD) Non-Af 79, BUN/Creatinine Ratio 16.4, Glucose 99, Calcium 8.5, Total Bilirubin 0.43, AST 41 H, ALT 36, Alkaline Phosphatase 60, Total Protein 5.0 L, Albumin 3.3 L, Globulin 1.8 L, Albumin/Globulin Ratio 1.8 Radiography Diagnostic Testing: Radiology Impression Brain CT 12/29/24 20:28 IMPRESSION: No evidence of acute intracranial injury. No evidence of acute intracranial hemorrhage or acute calvarial fracture. - Other findings and recommendations discussed above. Reading Location: [facility] Cervical Spine CT 12/29/24 20:28 IMPRESSION: No acute fracture of the cervical spine. - Other findings and recommendations discussed above. Reading Location: [facility] Femur X-Ray 12/29/24 21:00 IMPRESSION: No radiographic evidence of an acute osseous injury of the left femur. - Other findings discussed above in detail. Reading Location: [id number] Pelvis X-Ray 12/29/24 21:00 IMPRESSION: No radiographic evidence of an acute displaced fracture of the pelvis. - Other findings and limitations discussed above. Reading Location: [facility] Physical Exam Narrative General: Alert, Oriented x3, Cooperative, No apparent distress HEENT: Atraumatic, PERRLA, EOMI, Normocephalic Oral: Moist Mucosa Neck: Supple, No JVD Lungs: Diminished, Normal air movement, No rhonchi, No wheeze, No rales Cardiovascular: Regular rate, Regular Rhythm, Normal S1, Normal S2, No murmurs Abdomen: Soft, Non Tender, Non-Distended, No Hepato-splenomegaly Extremities: No edema, Capillary Refill Less than 3 Seconds Skin: No rashes, No breakdown Musculoskeletal: Tenderness to palpation on his left lower extremity Neurological: No focal neurological deficits, moves all extremities Psych/Mental Status: Normal Affect, Appropriate Assessment & Plan Assessment/Plan (1) Adult failure to thrive: PLAN: Plan 1. Vertigo with BPPV ? Dizziness is a chronic problem with him and he takes Florinef to support his blood pressure ? Continue with IV fluids ? Dizziness has improved and he was able to walk quite extensively with physical therapy today and was not limited by pain ? Would feel more comfortable if he went home tomorrow morning assuming that everything stays stable. He was not orthostatic 2. Paroxysmal A-fib/essential HTN/HLD ? Can resume his home blood pressure medications ? Continue with his Eliquis ? Continue with his Lipitor ? Will monitor make adjustments as necessary 3. GERD ? He does have a history of GI bleed ? Continue with PPI 4. Anxiety/depression ? Stable ? Continue with his home medications 5. COPD ? Not in exacerbation ? Continue with his home albuterol as needed DVT: Eliquis Charges/Coding Visit Charges Inpatient E&M: 39468 Subs Hosp L2
[2024-12-30 21:33] VITALS: BP 113/68; PULSE 89; RESP 18; TEMP 36.8; O2SAT 96
[2024-12-31 03:05] VITALS: BP 132/77; PULSE 68; RESP 18; TEMP 36.3; O2SAT 97
[2024-12-31 06:00] VITALS: BMI 31.3
[2024-12-31 06:21] LABS: Hematocrit 31.4 % (40-54); Hemoglobin 10.6 g/dL (13.0-16.5); Immature Granulocytes Count 0.030 X10^3/uL (0.0-0.0); Mean Corp Hgb Conc 33.8 g/dL (32-36); Mean Corpuscular Volume 93.2 fL (80-94); Mean Platelet Vol. 11.3 fl (6.2-12.0); NRBC Flagged by Analyzer 0 % (0-5); Platelet Count 175 K/mm3 (150-450); RBC Distribution Width CV 14.3 % (11.6-14.6); RBC Distribution Width SD 48.7 fl (35.1-43.9); Red Blood Count 3.37 M/mm3 (4.6-6.2); White Blood Count 6.1 K/mm3 (4.4-11.0)
[2024-12-31 06:45] LABS: Anion Gap 10 (5-15); BUN 13 mg/dL (4-19); BUN/Creat Ratio 14.9 RATIO (10-20); Calcium,Total 8.8 mg/dL (7.6-11.0); Carbon Dioxide 23.0 mmol/L (21.0-32.0); Chloride 109 mmol/L (98-108); Estimated Creatinine Clearance 97.09 ml/min (50-250); Glucose 86 mg/dL (70-99); Potassium 3.9 mmol/L (3.3-5.1)
[2024-12-31 09:08] VITALS: BP 119/56; PULSE 82; RESP 18; TEMP 36.6; O2SAT 95
[2024-12-31] MEDS: APIXABAN 5 MG TABLET PO (09:17)
--- NOTE | 2024-12-31 12:05 | DCINST_ITS ---
Discharge Instructions DC O2, CPAP, BIPAP needs Home O2 Discharge instructions: No Dressing / Incision Discharge Activity: Return to Normal Activity Dressing / Incision Call your doctor if you observe: Fever of 101 or Higher, Shortness of breath, Dizziness, Fainting spells, Swelling in the ankles, Chest pain and Increased palpitations (irregular heartbeat) Follow Up Care Test Results: Test results from this visit will be discussed in further detail at your follow- up appointment, if applicable. Discharge Plan Admission Admit Date/Time: 12/29/24 23:26 Attending Provider: Matt Schmidt Primary Care Provider: Florian Gonzalez Consulting Providers: Karen Olivo Discharge Orders/Prescriptions Prescriptions: New oxycodone 5 mg Tablet 2.5 mg PO Q4H PRN PRN (Reason: Pain Score 4-10) 3 Days Qty: 10 0RF Continued quetiapine 50 mg tablet 50 mg PO QHS lamotrigine 100 mg tablet 100 mg PO DAILY bisoprolol fumarate 5 mg tablet 5 mg PO DAILY fludrocortisone 0.1 mg tablet 0.1 mg PO DAILY oxybutynin chloride 5 mg tablet extended release 24hr 5 mg PO DAILY digoxin 250 mcg (0.25 mg) tablet 250 mcg PO DAILY omega-3 fatty acids 1,000 mg capsule 1,000 mg PO QDAY docusate sodium 100 mg capsule 100 mg PO BID PRN (Reason: constipation) multivitamin 1 EACH tablet 1 ea PO DAILY atorvastatin 20 MG tablet 20 mg PO DAILY pyridoxine (vitamin B6) 100 MG tablet 100 mg PO DAILY cholecalciferol (vitamin D3) 1,000 UNIT tablet 1,000 unit PO DAILY calcium citrate-vitamin D3 1 EACH tablet 1 ea PO DAILY albuterol sulfate 90 MCG aero powdr breath act w/sensor 90 mcg IH PRN PRN (Reason: Wheezing) buspirone 15 mg tablet 15 mg PO BID sertraline 100 mg tablet 200 mg PO DAILY pantoprazole 40 MG tablet 40 mg PO DAILY apixaban 5 mg tablet 5 mg PO .COMPLEX Qty: 180 3RF Rx Instructions: 5 mg orally twice a day; FAX to [facility] @ Referrals / Follow Up: Florian Gonzalez MD [Primary Care Provider, Internal Medicine] - Within 1 Week Disposition Disposition (needs filled in before D/C Order can be placed): Home, Self Care
--- NOTE | 2024-12-31 12:21 | CASEMGMT ---
Noted therapy evals. BARRY CM into pt room, pt lying in bed. Pt reports pain with movement. Pt states he lives with his sister who has been in and out of the hospital, has multiple falls and he assists her at home. Pt reports being normally indep at home. Pt has a walker and cane but typically doesn't use. Discussed pt therapy evals and further therapy upon dc. Pt denies the need for this stating he feels his body needs to heal. Discussed movement and importance of this at home. Pt states he hates physical therapy. Pt denies the need for outpt therapy. He is aware that should he change his mind, he can contact his PCP to order this. Pt is agreeable to this plan. Pt states he will have a sister from out [facility] and a sister from [place] who will be staying with him and his sister he lives with for a short time. Pt feels safe to return home.
[2024-12-31 13:07] VITALS: BP 115/65; PULSE 70; RESP 18; TEMP 36.4; O2SAT 95
--- NOTE | 2024-12-31 13:59 | PHA.DC_ITS ---
Pharmacy [facility] Counseling Pharmacy Service has performed discharge medication reconciliation and counseling for this patient. 1. OXYCODONE 2.5MG PO Q4H PRN PAIN The patient's discharge medication list was reviewed for discrepancies and discrepancies were resolved. The patient was counseled on the following discharge medications and changes in medications for homegoing were reviewed. The Reason for Use, instructions for use, and potential side effects were reviewed for all new medications. The patient's questions regarding all of their medications were answered. The patient was able to verbally demonstrate an understanding of their discharge medications. Medications at Discharge Home Medications albuterol sulfate 90 mcg/actuation breath activated powder inhaler,sensor 90 mcg IH PRN PRN Wheezing 10/15/19 atorvastatin 20 mg tablet 20 mg PO DAILY 10/15/19 calcium 315 mg (as citrate)-vitamin D3 6.25 mcg (250 unit) tablet 1 ea PO DAILY 10/15/19 cholecalciferol (vitamin D3) 25 mcg (1,000 unit) tablet 1,000 unit PO DAILY 10/15/19 multivitamin 1 ea PO DAILY 10/15/19 pyridoxine (vitamin B6) 100 mg tablet 100 mg PO DAILY 10/15/19 pantoprazole 40 mg tablet,delayed release 40 mg PO DAILY 07/21/20 bisoprolol fumarate 5 mg tablet 5 mg PO DAILY 09/13/24 buspirone 15 mg tablet 15 mg PO BID 09/13/24 digoxin 250 mcg (0.25 mg) tablet 250 mcg PO DAILY 09/13/24 docusate sodium 100 mg capsule 100 mg PO BID PRN constipation 09/13/24 fludrocortisone 0.1 mg tablet 0.1 mg PO DAILY 09/13/24 lamotrigine 100 mg tablet 100 mg PO DAILY 09/13/24 omega-3 fatty acids 1,000 mg capsule 1,000 mg PO QDAY 09/13/24 oxybutynin chloride 5 mg tablet,extended release 24 hr 5 mg PO DAILY 09/13/24 quetiapine 50 mg tablet 50 mg PO QHS 09/13/24 sertraline 100 mg tablet 200 mg PO DAILY 09/13/24 apixaban 5 mg tablet 5 mg PO .COMPLEX #180 tabs 09/19/24 oxycodone 5 mg tablet 2.5 mg (1/2 x 5 mg) PO Q4H PRN PRN Pain Score 4-10 3 days #10 tabs 12/31/24
--- NOTE | 2024-12-31 17:10 | PCM.DC.SUM ---
Providers Date of Admission: 12/29/24 Primary Care Physician: Dr. Florian Gonzalez MD Reason For Visit: VERTIGO, FALL Diagnosis Discharge Diagnosis (1) Adult failure to thrive: Status: Acute Code(s): R62.7 - Adult failure to thrive Medications at Discharge Home Medications albuterol sulfate 90 mcg/actuation breath activated powder inhaler,sensor 90 mcg IH PRN PRN Wheezing 10/15/19 atorvastatin 20 mg tablet 20 mg PO DAILY 10/15/19 calcium 315 mg (as citrate)-vitamin D3 6.25 mcg (250 unit) tablet 1 ea PO DAILY 10/15/19 cholecalciferol (vitamin D3) 25 mcg (1,000 unit) tablet 1,000 unit PO DAILY 10/15/19 multivitamin 1 ea PO DAILY 10/15/19 pyridoxine (vitamin B6) 100 mg tablet 100 mg PO DAILY 10/15/19 pantoprazole 40 mg tablet,delayed release 40 mg PO DAILY 07/21/20 bisoprolol fumarate 5 mg tablet 5 mg PO DAILY 09/13/24 buspirone 15 mg tablet 15 mg PO BID 09/13/24 digoxin 250 mcg (0.25 mg) tablet 250 mcg PO DAILY 09/13/24 docusate sodium 100 mg capsule 100 mg PO BID PRN constipation 09/13/24 fludrocortisone 0.1 mg tablet 0.1 mg PO DAILY 09/13/24 lamotrigine 100 mg tablet 100 mg PO DAILY 09/13/24 omega-3 fatty acids 1,000 mg capsule 1,000 mg PO QDAY 09/13/24 oxybutynin chloride 5 mg tablet,extended release 24 hr 5 mg PO DAILY 09/13/24 quetiapine 50 mg tablet 50 mg PO QHS 09/13/24 sertraline 100 mg tablet 200 mg PO DAILY 09/13/24 apixaban 5 mg tablet 5 mg PO .COMPLEX #180 tabs 09/19/24 oxycodone 5 mg tablet 2.5 mg (1/2 x 5 mg) PO Q4H PRN PRN Pain Score 4-10 3 days #10 tabs 12/31/24 Hospital Course Operations None Procedures None Summary of Care Provided Minutes Spent on Discharge: 35 Hospital Course: Per HPI: The patient is a 74 y/o M w/ PMHx: Obesity s/p prior gastric bypass, GERD w/ Hx GI bleed, Hx VTE (DVT, PE), LEXIE, BPH, PAF s/p MAZE, Anxiety and Depression/mood disorder, COPD, Chronic normocytic anemia, CKD stage II per GFR trending who presents to the [facility] ED on 12/29/2024 with history of episode of dizziness with mechanical fall on anticoagulant therapy with notable discomfort generalized as well as to his knee and shoulder rating it 7 out of 10 in severity prompting EMS call and transition to the ED for evaluation. He notes that with the dizziness he felt the room spinning which lasted ~ 5 minutes similar to a prior episode remotely. Patient reports that he has had increased frequent falls. He lives with his sister who is also older and has a significant fall history as well. Patient denies any neurological symptoms associated. Workup in the ED included T98.3, heart 84, BP 120/109, respiratory rate 16, 98% on room air with most recent repeat vitals heart rate 64, BP 129/74, respiratory rate 14, 99% on room air, CBC with WC 9.6, hemoglobin 11.4, MCV 92.1, platelet 202 without marked shift, BMP with BUN/Cryan 20/1.13, GFR 69, glucose 110, CT brain with no acute intracranial findings, CT cervical spine with no acute fracture or malalignment, plain film of the left femur with no acute osseous injury, plain film of the pelvis with no acute displaced fracture of the pelvis noted. In the ED patient ministered 1 L normal saline and morphine 4 mg IV x 1. Hospital Course: 1. Vertigo with BPPV?74-year-old male with previous history of vertigo that presented similar to this episode, presented to hospital after a fall. He has significant left thigh pain and pelvic pain as well as some multiple facial contusions. He has no fractures and was started on IV fluids which has helped his dizziness. He was not orthostatic here in the hospital and his dizziness did resolve within 24 hours and there is no further need for meclizine or any other type of intervention. His symptoms were not consistent with a stroke so an MRI was not pursued. His pain was manageable with low-dose oxycodone and I did restart him on his Florinef on admission as well. Today on the day of discharge I discussed with him the possibility for discharge and he expressed understanding of the risk and benefits of going home and would like to go home today. He was evaluated by PT/OT who did not have any further recommendations and did not feel that he warranted a stay at SNF. Will continue with low-dose oxycodone on discharge for pain control, I discussed with him that he is not to drive while taking narcotics but otherwise he can resume his other normal activity. 2. Paroxysmal A-fib, essential hypertension, hyperlipidemia, GERD, anxiety, depression, COPD are all chronic medical conditions which complicate his care. His home medications were continued where appropriate Physical Exam Narrative General: Alert, Oriented x3, Cooperative, No apparent distress HEENT: Atraumatic, PERRLA, EOMI, Normocephalic, left facial contusions and bruising Oral: Moist Mucosa Neck: Supple, No JVD Lungs: Diminished, Normal air movement, No rhonchi, No wheeze, No rales Cardiovascular: Regular rate, Regular Rhythm, Normal S1, Normal S2, No murmurs Abdomen: Soft, Non Tender, Non-Distended, No Hepato-splenomegaly Extremities: No edema, Capillary Refill Less than 3 Seconds Skin: No rashes, No breakdown Musculoskeletal: Tenderness to palpation on his left lower extremity Neurological: No focal neurological deficits, moves all extremities Psych/Mental Status: Normal Affect, Appropriate Weight / BMI Weight Weight: 236 lb 5.369 oz Body Mass Index (BMI) 31.3 ABG / Lab / Microbiology Data 12/31/24 05:34 12/31/24 05:34 Laboratory: Laboratory Results - last 24 hr 12/31/24 05:34: WBC 6.1, RBC 3.37 L, Hgb 10.6 L, Hct 31.4 L, MCV 93.2, MCH 31.5, MCHC 33.8, RDW Std Deviation 48.7 H, RDW Coeff of Anmol 14.3, Plt Count 175, MPV 11.3, Immature Gran % (Auto) 0.500, Neut % (Auto) 56.1, Lymph % (Auto) 34.9, [place] % (Auto) 4.4, Eos % (Auto) 3.8, Baso % (Auto) 0.3, Absolute Neuts (auto) 3.4, Absolute Lymphs (auto) 2.12, Nucleated RBC % 0, Sodium 142, Potassium 3.9, Chloride 109 H, Carbon Dioxide 23.0, Anion Gap 10, BUN 13, Creatinine 0.87, Estim Creat Clear Calc 97.09, Est GFR (MDRD) Non-Af 92, BUN/Creatinine Ratio 14.9, Glucose 86, Calcium 8.8 D/C Instructions Call your doctor if you observe: Fever of 101 or Higher, Shortness of breath, Dizziness, Fainting spells, Swelling in the ankles, Chest pain and Increased palpitations (irregular heartbeat) DC O2, CPAP, BIPAP Needs Home O2 Discharge instructions: No Meaningful Use Info Meaningful Use Meaningful Use Diagnoses (Choose all that apply): None applicable Discharge Plan Admission Admit Date/Time: 12/29/24 23:26 Attending Provider: Matt Schmidt Primary Care Provider: Florian Gonzalez Consulting Providers: Karen Olivo Discharge Orders/Prescriptions Prescriptions: New oxycodone 5 mg Tablet 2.5 mg PO Q4H PRN PRN (Reason: Pain Score 4-10) 3 Days Qty: 10 0RF Continued quetiapine 50 mg tablet 50 mg PO QHS lamotrigine 100 mg tablet 100 mg PO DAILY bisoprolol fumarate 5 mg tablet 5 mg PO DAILY fludrocortisone 0.1 mg tablet 0.1 mg PO DAILY oxybutynin chloride 5 mg tablet extended release 24hr 5 mg PO DAILY digoxin 250 mcg (0.25 mg) tablet 250 mcg PO DAILY omega-3 fatty acids 1,000 mg capsule 1,000 mg PO QDAY docusate sodium 100 mg capsule 100 mg PO BID PRN (Reason: constipation) multivitamin 1 EACH tablet 1 ea PO DAILY atorvastatin 20 MG tablet 20 mg PO DAILY pyridoxine (vitamin B6) 100 MG tablet 100 mg PO DAILY cholecalciferol (vitamin D3) 1,000 UNIT tablet 1,000 unit PO DAILY calcium citrate-vitamin D3 1 EACH tablet 1 ea PO DAILY albuterol sulfate 90 MCG aero powdr breath act w/sensor 90 mcg IH PRN PRN (Reason: Wheezing) buspirone 15 mg tablet 15 mg PO BID sertraline 100 mg tablet 200 mg PO DAILY pantoprazole 40 MG tablet 40 mg PO DAILY apixaban 5 mg tablet 5 mg PO .COMPLEX Qty: 180 3RF Rx Instructions: 5 mg orally twice a day; FAX to [facility] @ Referrals / Follow Up: Florian Gonzalez MD [Primary Care Provider, Internal Medicine] - Within 1 Week Disposition Disposition (needs filled in before D/C Order can be placed): Home, Self Care Charges/Coding Visit Charges Inpatient E&M: 48872 Disch Hosp >30min
== END 2024-12-31 15:50 | disposition home or self-care (01) ==
LOC: ED 21:00 → MS3 23:49
PROVIDERS: Admitting Provider Family Medicine; Emergency Provider Emergency Medicine; PCP Internal Medicine; Visit Provider Family Medicine
DX: H81.10 Benign paroxysmal vertigo, unspecified ear (principal); J44.9 Chronic obstructive pulmonary disease, unspecified; I48.0 Paroxysmal atrial fibrillation; R62.7 Adult failure to thrive; E78.5 Hyperlipidemia, unspecified; E66.9 Obesity, unspecified; Z86.718 Personal history of other venous thrombosis and embolism; K21.9 Gastro-esophageal reflux disease without esophagitis; F41.9 Anxiety disorder, unspecified; M54.50 Low back pain, unspecified; N18.2 Chronic kidney disease, stage 2 (mild); Z86.711 Personal history of pulmonary embolism; S00.83XA Contusion of other part of head, initial encounter; I12.9 Hypertensive chronic kidney disease with stage 1 through stage 4 chronic kidney disease, or unspecified chronic kidney disease; W10.1XXA Fall (on)(from) sidewalk curb, initial encounter; Z79.01 Long term (current) use of anticoagulants; Z68.31 Body mass index [BMI] 31.0-31.9, adult; R29.6 Repeated falls; N40.0 Benign prostatic hyperplasia without lower urinary tract symptoms; G47.33 Obstructive sleep apnea (adult) (pediatric); Z98.84 Bariatric surgery status; Y93.01 Activity, walking, marching and hiking; S70.12XA Contusion of left thigh, initial encounter; Y92.512 Supermarket, store or market as the place of occurrence of the external cause; D64.9 Anemia, unspecified; F32.A Depression, unspecified
CPT/HCPCS: 36415; 70450; 72125; 72170; 73552; 80048; 80053; 83735; 85025; 94668; 96361; 96374; 96375; 97162; 97166; 99221; 99285; A4216; G0378